=== PATIENT | female | born 1955 | race Caucasian/White ===

== ENCOUNTER 2023-11-06 03:12 | Outpatient (REF) | payer OTHER, SELFPAY ==
[2023-11-06 07:51] LABS: Ammonia <10 umol/L (11-32)
[2023-11-06 08:11] LABS: Basophils Percent Auto 0.5 % (0.2-2.0); Eosinophils Absolute Auto 0.1 10^3/uL (0.0-0.7); Eosinophils Percent Auto 1.1 % (0.9-7.0); Hematocrit 31.3 % (36.0-48.0); Hemoglobin 9.7 g/dL (12.0-16.0); Immature Granulocytes Abs Auto 0.02 10^3/uL (0.00-0.03); Immature Granulocytes Pct Auto 0.4 % (0.0-0.5); Lymphocytes Absolute Auto 1.5 10^3/uL (1.2-3.8); Lymphocytes Percent Auto 27.2 % (20.5-60.0); Mean Corpuscular Hemoglobin 28.8 pg (26.7-34.0); Mean Corpuscular Volume 92.9 fL (81.0-99.0); Mean Platelet Volume 9.5 fL (9.5-13.5); Monocytes Absolute Auto 0.5 10^3/uL (0.3-0.8); Monocytes Percent Auto 8.5 % (1.7-12.0); Neutrophils Absolute Auto 3.5 10^3/uL (1.4-6.5); Neutrophils Percent Auto 62.3 % (43.0-75.0); Platelet Count 164 10^3/uL (150-450); Red Blood Count 3.37 10^6/uL (4.20-5.40); Red Cell Distribution Width 15.9 % (11.0-15.0); White Blood Count 5.6 10^3/uL (4.0-11.0)
[2023-11-06 08:52] LABS: Chloride 101 mmol/L (98-107); Glucose 64 mg/dL (74-106); Sodium 138 mmol/L (136-145)
[2023-11-06 08:53] LABS: Alanine Aminotransferase 22 U/L (14-59); Albumin Globulin Ratio 0.5; Albumin Level 2.5 g/dL (3.4-5.0); Alkaline Phosphatase 230 U/L (46-116); Aspartate Amino Transferase 29 U/L (15-37); BUN Creatinine Ratio 20.3; Bilirubin Total 0.5 mg/dL (0.2-1.0); Calcium 9.2 mg/dL (8.5-10.1); Estimated GFR (African America 50 (>=60); Estimated GFR (Non-African Ame 41 (>=60); Total Protein 7.5 g/dL (6.4-8.2)
== END 2023-11-06 03:13 | disposition home or self-care (01) ==
LOC: LAB 03:12
PROVIDERS: Visit Provider Nurse Practitioner Family
DX: R41.82 Altered mental status, unspecified (principal); K74.60 Unspecified cirrhosis of liver; R82.71 Bacteriuria
CPT/HCPCS: 36415; 80053; 82140; 85025

== ENCOUNTER 2024-01-07 16:00 | Outpatient (REF) | payer OTHER, SELFPAY ==
[2024-01-08 07:40] LABS: Bilirubin Urine NEGATIVE (NEGATIVE); Blood Urine NEGATIVE (NEGATIVE); Clarity Urine CLEAR (CLEAR); Color Urine LT. YELLOW (YELLOW); Glucose Urine UA NEGATIVE (NEGATIVE); Ketones Urine NEGATIVE (NEGATIVE); Leukocyte Esterase Urine MODERATE (NEGATIVE); Nitrite Urine POSITIVE (NEGATIVE); Protein Urine NEGATIVE (NEG/TRACE); Specific Gravity Urine 1.015 (1.005-1.025)
[2024-01-08 07:50] LABS: Urine Microscopic Indicated YES
[2024-01-08 09:05] LABS: Bacteria Urine LARGE #/HPF (NONE SEEN); Mucus Urine NONE SEEN (NONE SEEN); RBC Urine NONE SEEN #/HPF (0-2); Squamous Epithelial Cell Urine FEW #/LPF (NONE/RARE); WBC Urine 75-100 #/HPF (NONE SEEN)
[2024-01-08 09:06] LABS: Crystals Seen? Seen #/HPF (None Seen); Triple Phosphate Crystal Urine FEW
[2024-01-08 09:07] LABS: Urine Culture Indicated ALREADY ORDERED
== END 2024-01-07 16:01 | disposition home or self-care (01) ==
LOC: LAB 16:00
PROVIDERS: Visit Provider Family Medicine
DX: R41.0 Disorientation, unspecified (principal); N39.0 Urinary tract infection, site not specified; N18.31 Chronic kidney disease, stage 3a
CPT/HCPCS: 81001; 87086; 87150; 87186

== ENCOUNTER 2024-01-15 01:55 | Outpatient (REF) | payer OTHER, SELFPAY ==
--- OUTSIDE RECORDS SUMMARY | 2024-01-15 02:04 | XMS_ITS | CCD ---
Author Organization [facility] Care Team Providers Care Packing Line Operator Name Role Phone Hallie Huynh Primary Care Provider Mukesh Castanon Primary Care Provider Mukesh Castanon Primary Care Provider Hallie Huynh Primary Care Provider Fortino Cordova Unavailable Mukesh Velázquez APRN, CNP Primary Care Provider Justyna De Leon APRN, CNP Primary Care Provid er Justyna De Leon APRN, CNP Primary Care Provid er Hallie Worthington APRN, CNP Primary Care Provider Justyna De Leon APRN, CNP Primary Care Provid er HALLIE HUYNH Primary Care Unavailable MIGHTHALLIE Consulting Unavailable Rodrigo SUÁREZ, Tony Licea Attending Unavailab le MIGHTHALLIE Consulting Unavailable HALLIE HUYNH Primary Care Unavailable Antonino Staples Attending Unavailable Rodrigo SUÁREZ, Tony Licea Consulting Unavailab carmela Wallace MD, Tony Licea Attending Unavailab le HALLIE HUYNH Primary Care Unavailable MIGHTHALLIE Consulting Unavailable Rordigo SUÁREZ, Tony Licea Attending Unavailab le MIGHT, NEWSPAPER COPY EDITOR HALLIE FAM Primary Care Unavail able MIGHT, NEWSPAPER COPY EDITOR HALLIE FAM Consulting Unavail able MIGHTHALLIE Primary Care Unavailable MIGHTHALLIE Consulting Unavailable Rodrigo SUÁREZ, Tony Licea Attending Unavailab le Jannie COMMERCIAL HVAC SERVICE TECHNICIAN - NEWSPAPER COPY EDITOR, Justyna Bashir Primary Care Provid er Jannie COMMERCIAL HVAC SERVICE TECHNICIAN - NEWSPAPER COPY EDITOR, Justyna L Primary Care Provid er Jannei COMMERCIAL HVAC SERVICE TECHNICIAN - NEWSPAPER COPY EDITOR, Justyna L Primary Care Provid er Jannie COMMERCIAL HVAC SERVICE TECHNICIAN - NEWSPAPER COPY EDITOR, Justyna L Primary Care Provid er ANTONIA, MANPREET S Primary Care Unavailable TULIO CHAMPION Attending Unavailable SABRINA, TULIO Referring Unavailable ANTONIA, MANPREET S Primary Care Unavailable TULIO CHAMPION Attending Unavailable SABRINA, TULIO Referring Unavailable ANTONIA, MANPREET S Primary Care Unavailable ANTONIA, [facility] Primary Care Unavailable GLENIS BASURTO Attending Unavailable VALENTE SR Admitting Unavailable RODRIGO, ADRIANA Referring Unavailable ANTONIA, MANPREET S Primary Care Unavailable ANTONIA, [facility] Primary Care Unavailable OTONIEL LEE Attending Unavailable OTONIEL LEE Attending Unavailable OTONIEL LEE Referring Unavailable ANTONIA, [facility] Primary Care Unavailable SHOSHANA HANCOCK Referring Unavailable ATNONIA, [facility] Primary Care Unavailable TULIO CHAMPION Attending Unavailable SABRINA, TULIO Referring Unavailable ANTONIA, [facility] Primary Care Unavailable ANTONIA, [facility] Primary Care Unavailable SHU MANSFIELD Attending Unavailable SHU MANSFIELD Attending Unavailable SHU MANSFIELD Referring Unavailable ANTONIA, [facility] Primary Care Unavailable SHU MANSFIELD Attending Unavailable SHU MANSFIELD Referring Unavailable ANTONIA, [facility] Primary Care Unavailable RODRIGO, ADRIANA Referring Unavailable ANTONIA, [facility] Primary Care Unavailable SHU MANSFIELD Referring Unavailable ANTONIA, [facility] Primary Care Unavailable SELAM RIOS Referring Unavailable ANTONIA, [facility] Primary Care Unavailable TAMIKO BARKLEY Referring Unavailable ANTONIA, [facility] Primary Care Unavailable SHU MANSFIELD Referring Unavailable ANTONIA, [facility] Primary Care Unavailable JANNIEJUSTYNA Krysten Primary Care Unavailable AHAMMAD, SOSA Referring Unavailable AHAMMAD, SOSA Referring Unavailable JANNIE, JUSTYNA Bashir Primary Care Unavailable JANNIE, JUSTYNA Bashir Primary Care Unavailable SARAH MARROQUIN Admitting Unavailable AHAMMAD, SOSA Consulting Unavailable KING BLACKWELL Attending Unavailable PASQUALE BYNUM Consulting Unavailable RAMSEY ALMANZA Consulting Unavailable HEARN, CLIFF Consulting Unavailable JANNIE, JUSTYNA L Primary Care Unavailable AHAMMAD, SOSA Referring Unavailable JOVANNI, PAT N Admitting Unavailable JOVANNI, PAT N Attending Unavailable JANNIE, JUSTYNA L Primary Care Unavailable JANNIE, JUSTYNA L Referring Unavailable JANNIE, JUSTYNA L Primary Care Unavailable TOM, MIROSLAVA MARIEE Referring Unavailable JANNIE, JUSTYNA L Primary Care Unavailable HEMMELGARN, PIERCE E Referring Unavailable JANNIE, JUSTYNA L Primary Care Unavailable IACOB, LIBBY Admitting Unavailable IACOB, LIBBY Attending Unavailable JANNIE, JUSTYNA L Primary Care Unavailable JANNIE, JUSTYNA L Primary Care Unavailable TOM, MIROSLAVA MARIEE Referring Unavailable JANNIE, JUSTYNA L Primary Care Unavailable JANNIE, JUSTYNA L Referring Unavailable NIKOLE, KEYSHAWN R Referring Unavailable JANNIE, JUSTYNA L Referring Unavailable JANNIE, JUSTYNA L Primary Care Unavailable JANNIE, JUSTYNA L Referring Unavailable JANNIE, JUSTYNA L Primary Care Unavailable JANNIE, JUSTYNA L Referring Unavailable JANNIE, JUSTYNA L Primary Care Unavailable JANNIE, JUSTYNA L Primary Care Unavailable JANNIE, JUSTYNA L Referring Unavailable JANNIE, JUSTYNA L Primary Care Unavailable HEMMELGARN, PIERCE E Referring Unavailable JANNIE, JUSTYNA L Referring Unavailable JANNIE, JUSTYNA L Primary Care Unavailable MUDDADA, MADAI K Referring Unavailable JANNIE, JUSTYNA L Primary Care Unavailable JANNIE, JUSTYNA L Primary Care Unavailable JANNIE, JUSTYNA L Referring Unavailable DAWSON, JEWEL Attending Unavailable JANNIE, JUSTYNA L Primary Care Unavailable JANNIE, JUSTYNA L Referring Unavailable JANNIE, JUSTYNA L Primary Care Unavailable IACOB, LIBBY Admitting Unavailable IACOB, LIBBY Attending Unavailable JANNIE, JUSTYNA L Primary Care Unavailable Allergies Allergy Classification Reported Allergen(s) Allergy Type Date of Onset Reaction(s) Facility Iodine (and Iodine containting drugs) (4 sources) Iodine Drug Allergy 05-26-20 19 Shortness Of Breath, Itching, Swelling [facility] [employer] Work Phone: Latex (4 sources) Latex Substance Allergy 05-26-20 19 Shortness Of Breath, Rash [facility] [place] Phone: Lidocaine (4 sources) Lidocaine Drug Allergy 11-23-19 20 Swelling [facility] [place] Nitrofurans (antibiotic) (4 sources) Nitrofurans (Antibiotic) Drug Allergy 05-26-20 19 Hives [facility] [employer] Work Phone: NSAIDs (4 sources) Indomethacin Drug Allergy 05-26-20 19 Shortness Of Breath, Nausea Only, Palpitations [facility] [place] Phone: Opioid Agonists (4 sources) fentaNYL Drug Allergy 05-26-20 19 Anaphylaxis [facility] [place] Phone: Penicillins (antibiotic) (4 sources) Penicillins Drug Allergy 05-26-20 19 Shortness Of Breath, Itching, Swelling [facility] [place] [employer] Phone: Phenazopyridine (4 sources) Phenazopyridine Drug Allergy 05-26-20 Hives [facility] [place] [employer] Phone: Quinolones (antibiotic) (4 sources) gatifloxacin Drug Allergy 05-26-20 19 Anaphylaxis [facility] [place] Phone: Sulfonamides (antibiotic) (4 sources) Sulfonamides (Antibiotic) Drug Allergy 05-26-20 19 Anaphylaxis [facility] [place] Phone: (20 sources) fentaNYL; Translations: [fentaNYL] Drug Allergy 05-26-20 19 Anaphylaxis [place] (20 sources) gatifloxacin; Translations: [gatifloxacin] Drug Allergy 05-26-20 19 An[place]axis [place] (20 sources) Indomethacin; Translations: [indomethacin] Drug Allergy 05-26-20 19 Shortness Of Breath, Nausea Only, Palpitations [place] (20 sources) Iodine; Translations: [iodine] Drug Allergy 05-26-20 19 Shortness Of Breath, Itching, Swelling [place] (20 sources) Latex; Translations: [Latex] Propensity to adverse reactions to drug 05-26-20 19 Shortness Of Breath, Rash [place] (20 sources) Nitrofurans (Antibiotic); Translations: [nitrofuran derivatives] Propensity to adverse reactions to drug 05-26-20 19 [place] (20 sources) Penicillins; Translations: [penicillins] Propensity to adverse reactions to drug 05-26-20 19 Shortness Of Breath, Itching, Swelling [place] (20 sources) Phenazopyridine Drug Allergy 05-26-20 19 [facility] [place] (20 sources) Sulfonamides (Antibiotic) Propensity to adverse reactions to drug 05-26-20 19 [place] (20 sources) Clindamycin/Lincom ycin Propensity to adverse reactions to drug 05-26-20 19 [place] (20 sources) Shellfish-Derived Products Propensity to adverse reactions to drug 05-26-20 19 Shortness Of Breath, Itching, Swelling [place] (20 sources) Erythromycin Base Propensity to adverse reactions to drug 05-26-20 19 [place] (20 sources) Tetracyclines & Related Propensity to adverse reactions to drug 05-26-20 19 Shortness Of Breath, Itching, Swelling [place] (20 sources) Lidocaine; Translations: [lidocaine] Drug Allergy 11-23-19 20 [place] (20 sources) Phenazopyridine; Translations: [PHENAZOPYRIDINE] Drug Allergy 07-04-20 21 [facility] [place] (3 sources) Clindamycin; Translations: [clindamycin] Drug Allergy 06-03-20 23 [facility] (3 sources) Erythromycin; Translations: [erythromycin] Drug Allergy 06-03-20 23 [facility] (1 source) Phenazopyridine; Translations: [Phenazopyridine Hydrochloride] Drug Allergy [facility] (1 source) Shellfish; Translations: [shellfish] Propensity to adverse reactions to drug (disorder) [facility] (1 source) Sulfonamides (Antibiotic); Translations: [sulfa drugs] Propensity to adverse reactions to drug (disorder) [facility] (3 sources) Tetracycline; Translations: [tetracycline] Drug Allergy 06-03-20 23 [facility] (20 sources) Penicillins Propensity to adverse reactions to drug 05-26-20 19 Shortness Of Breath, Itching, Swelling [facility] Work Phone: (20 sources) Seafood Propensity to adverse reactions to drug 05-26-20 19 Shortness Of Breath, Itching, Swelling [facility] Work Phone: (20 sources) Sulfonamides (Antibiotic) Propensity to adverse reactions to drug 05-26-20 Anaphylaxis [facility] [employer] Phone: (20 sources) Tetracycline (class of antibiotic) Propensity to adverse reactions to drug 05-26-20 Shortness Of Breath, Itching, Swelling [facility] [employer] Phone: (2 sources) Nitrofurantoin; Translations: [NITROFURANTOIN] Drug Allergy 06-03-20 [facility] (2 sources) Shellfish; Translations: [SHELLFISH DERIVED] Propensity to adverse reactions to food (disorder) 06-03-20 [facility] (2 sources) Sulfonamides (Antibiotic); Translations: [SULFA (SULFONAMIDE ANTIBIOTICS)] Propensity to adverse reactions to drug (disorder) 06-03-20 [facility] Medications Current Medications Medication Drug Class(es) Dates Sig (Normalized) Sig (Original) acetaminophen 325 mg oral tablet (16 sources) Start: 02-04-2023 End: 03-06-2023 take 2 tablets by mouth every six hours as needed for pain acetaminophen (TYLENOL) 325 MG tablet Take 2 tablets by mouth every 6 hours as needed for Pain 180 tablet 3 02/04/2023 Active Start: 01-11-2023 acetaminophen (TYLENOL) tablet 650 mg Start: 12-17-2022 End: 01-16-2023 take 2 tablets by mouth every six hours as needed for pain acetaminophen (TYLENOL) 325 MG tablet Indications: Chronic midline low back pain without sciatica Take 2 tablets by mouth every 6 hours as needed for Pain 60 tablet 0 12/17/2022 01/12/2023 Discontinued (Stop Taking at Discharge) Start: 11-18-2022 acetaminophen (TYLENOL) tablet 650 mg Start: 10-04-2022 End: 10-08-2022 acetaminophen (TYLENOL) tabl et 1,000 mg Start: 09-07-2022 acetaminophen (TYLENOL) tablet 650 mg Start: 12-27-2021 End: 12-27-2021 acetaminophen (TYLENOL) tabl et 650 mg Start: 02-08-2021 acetaminophen (TYLENOL) tablet 650 mg Start: 02-07-2021 End: 02-07-2021 acetaminophen (TYLENOL) tabl et 650 mg Start: 02-07-2021 End: 02-07-2021 acetaminophen (TYLENOL) 325 MG tablet Start: 11-24-2019 650 mg, Oral, EVERY 4 HOURS PRN, Pain Mild (1-3), Pain Mild (1-3) or Fever greater than 100.5 F (38 C), Starting [facility] 11/24/19 at 0256 Maximum dose of acetaminophen is 4000 mg from all sources in 24 hours. take 2 tablets by [facility] every four hours as needed for pain acetaminophen (TYLENOL) 325 MG tablet Take 650 mg by mouth every 4 hours as needed for Pain 0 Active acetaminophen 325 mg / HYDROcodone bitartrate 5 mg oral tablet (7 sources) Opioid Agonist Start: 01-16-2023 End: 01-19-2023 HYDROcodone-acetaminophen (NORCO) 5-325 MG per tablet Indications: E. coli UTI Take 1 tablet by mouth every 8 hours as needed for Pain for up to 3 days. Max Daily Amount: 3 tablets 10 tablet 0 01/16/2023 01/19/2023 Active Start: 01-15-2023 HYDROcodone-ac etaminophen (NORCO) 5-325 MG per tablet 1 tablet Start: 10-03-2022 End: 10-03-2022 HYDROcodone-acetaminophen (N ORCO) 5-325 MG per tablet 1 tablet Start: 04-30-2020 End: 04-30-2020 HYDROcodone-acetaminophen (N ORCO) 5-325 MG per tablet 1 tablet Start: 11-23-2019 End: 11-23-2019 HYDROcodone-acetaminophen (N ORCO) 5-325 MG per tablet 1 tablet take 1 tablet by [facility] every six hours as needed for pain HYDROcodone-acetaminophen (NORCO) 5-325 MG per tablet Take 1 tablet by mouth every 6 hours as needed for Pain. 0 Active ascorbic acid 60 mg / beta carotene 5000 unt / copper sulfate 40 mg / dl-alpha tocopheryl acetate 30 unt / sodium selenite 0.04 mg / zinc oxide 40 mg oral tablet (6 sources) Vitamin C Start: 06-18-2020 take 1 tablet by mouth once daily Multiple Vitamins-Minerals (CENTRUM SILVER 50+WOMEN) TABS Take 1 tablet by mouth daily 90 tablet 0 06/18/2020 Active take 1 tablet by mouth once leno y Multiple Vitamins-Minerals (CENTRUM SILVER 50+WOMEN) TABS Take 1 tablet by mouth daily 0 Active atenolol 50 mg oral tablet (20 sources) beta-Adrenergic [place] Start: 10-23-2022 atenol ol (TENORMIN) 50 MG tablet Indications: Essential hypertension One tablet nightly 90 tablet 3 10/23/2022 Active Start: 10-08-2022 atenolol (TENO RMIN) tablet 25 mg Start: 10-02-2022 End: 10-08-2022 take 50 mg by mouth once daily 50 mg, Oral, NIGHTLY, F irst dose on 10/04/22 at 2100, Until Discontinued Start: 05-27-2022 take 50 mg by mouth once daily 50 mg, Oral, DAILY, First dose on 09/07/22 at 0900, Until Discontinued Start: 03-10-2022 atenolol (TENO RMIN) 25 MG tablet Indications: Essential hypertension TAKE 2 TABLETS DAILY ([id number] AT NIGHT) 90 tablet 1 03/10/2022 Active Start: 09-17-2021 [facility] 2 [facility] once daily atenolol (TENORMIN) 25 MG tablet Indications: Essential hypertension Take 2 tablets by mouth daily Patient takes 50mg at night. 90 tablet 1 09/17/2021 Active Start: 02-13-2021 take 1 tablet by chilo th once daily atenolol (TENORMIN) 25 MG tablet Indications: Essential hypertension Take 1 tablet by mouth daily 90 tablet 1 02/13/2021 Active Start: 01-03-2021 take 25 mg by mouth once daily 25 mg, Oral, DAILY, First dose on Thu02/08/21 at 1000 Start: 06-18-2020 take 1 tablet by chilo th once daily atenolol (TENORMIN) 25 MG tablet Take 1 tablet by mouth daily 90 tablet 0 06/18/2020 Active Start: 09-19-2019 take 1 tablet by chilo th once daily atenolol (TENORMIN) 25 MG tablet Take 1 tablet by mouth daily 90 tablet 3 09/19/2019 Active atenolol (TENORM IN) 50 MG tablet Take 25 mg by mouth daily 0 Active bisacodyl 10 mg rectal suppository (1 source) Stimulant Laxative bisacodyl (DULCOLAX) [address] 1 suppository rectally daily If no BM x 4 days, R/S in every morning, if no results in 2 hours, give Fleets enema 0 Active busPIRone hydrochloride 15 mg oral tablet (3 sources) Start: 1 take 0.5 tablet by mouth twice daily busPIRone (BUSPAR) 15 MG tablet take 1/2 tablet by mouth twice a day if needed 0 10/05/2020 Active calcium carbonate 298 mg / magnesium chloride 596 mg delayed release oral tablet (1 source) Start: 3 End: 3 take 2 tablets by mouth once daily at mealtime magnesium cl-calcium carbonate (SLOW-MAG) 71.5-119 MG TBEC tablet Indications: Low blood magnesium Take 2 tablets by mouth daily Give doses separate with meals if unable to tolerate at once 180 tablet 0 04/14/2023 07/13/2023 Active cefTRIAXone (ROCEPHIN) 1,000 mg in dextrose 5 % 50 mL IVPB mini-bag (4 sources) Start: 3 End: 3 cefTRIAXone (ROCEPHIN) 1,000 mg in dextrose 5 % 50 mL IVPB mini-bag Start: 09-08-2022 End: 09-08-2022 cefTRIAXone (ROCEPHIN) 1,000 mg in dextrose 5 % 50 mL IVPB mini-bag Start: 09-07-2022 End: 09-07-2022 1,000 mg, IntraVENous, ONCE, 1 dose, On 09/07/22 at 2200 Antimicrobial Indications: Urinary Tract Infection UTI duration of therapy: 3 days Start: 09-06-2022 End: 09-06-2022 cefTRIAXone (ROCEPHIN) 1,000 mg in dextrose 5 % 50 mL IVPB mini-bag cephalexin 500 mg oral capsule (14 sources) Cephalosporin Antibacterial Start: 05-06-2023 End: 05-16-2023 take 1 capsule by mouth twice daily cephALEXin (KEFLEX) 500 MG capsule Indications: Acute cystitis without hematuria Take 1 capsule by mouth 2 times daily for 10 days 20 capsule 0 05/06/2023 05/16/2023 Active Start: 03-30-2023 take 1 capsule by [facility] twice daily cephALEXin (KEFLEX) 500 MG capsule Indications: Acute UTI Take 1 capsule by mouth 2 times daily 14 capsule 0 03/30/2023 Active Start: 01-13-2023 End: 01-20-2023 take 1 capsule by mouth four times daily cephALEXin (KEFLEX) 500 MG capsule Take 1 capsule by mouth 4 times daily for 24 doses 24 capsule 0 01/14/2023 01/20/2023 Active Start: 12-19-2022 End: 12-29-2022 take 1 capsule by mouth three times daily cephALEXin (KEFLEX) 500 MG capsule Indications: Acute cystitis without hematuria Take 1 capsule by mouth 3 times daily for 10 days 30 capsule 0 12/19/2022 12/29/2022 Active Start: 11-23-2022 End: 11-30-2022 take 1 capsule by mouth at bedtime cephALEXin (KEFLEX) 500 MG capsule Take 1 capsule by mouth in the morning, at noon, and at bedtime for 14 doses 14 capsule 0 11/25/2022 11/30/2022 Active Start: 05-15-2021 End: 05-25-2021 take 1 capsule by mouth twice daily cephALEXin (KEFLEX) 500 MG capsule Indications: Acute cystitis with hematuria , Cellulitis of right lower extremity Take 1 capsule by mouth 2 times daily for 10 days 20 capsule 0 05/15/2021 05/25/2021 Active Start: 04-14-2021 End: 04-21-2021 take 1 capsule by mouth twice daily cephALEXin (KEFLEX) 500 MG capsule Take 1 capsule by mouth 2 times daily for 7 days 14 capsule 0 04/14/2021 04/21/2021 Active Start: 02-11-2021 End: 02-18-2021 take 1 capsule by mouth three times daily cephALEXin (KEFLEX) 500 MG capsule Take 1 capsule by mouth 3 times daily for 7 days 21 capsule 0 02/11/2021 02/18/2021 Active cycloSPORINE (RESTASIS) 0.05 % ophthalmic emulsion (10 sources) take 1 drop(s) into the eye(s) in the morning cycloSPORINE (RESTASIS) 0.05 % ophthalmic emulsion Place 1 drop into both eyes in the morning and 1 drop in the evening. 0 Active docusate sodium 100 mg oral capsule (2 sources) Start: 11-24-19 take 1 capsule by mouth twice daily docusate sodium (COLACE) 100 MG capsule Take 1 capsule by mouth 2 times daily 20 capsule 0 11/24/2019 Active estradiol 0.1 mg/ml vaginal cream (3 sources) Estrogen Start: 02-11-20 estradiol (ESTRACE VAGINAL) 0.1 MG/GM vaginal cream Place a pea-sized amount vaginally nightly for one month, then use 3 nights per week thereafter. Do NOT use plastic applicator. 42.5 g 3 02/10/2023 Active fluconazole 100 mg oral tablet (4 sources) Azole Antifungal take 1 tablet by mouth once daily fluconazole (DIFLUCAN) 100 MG tablet Take 1 tablet by mouth daily 0 Active 30 actuat fluticasone furoate 0.2 mg/actuat / vilanterol 0.025 mg/actuat dry powder inhaler (20 sources) Corticosteroid, beta2-Adrenergic Agonist Start: 01-15-20 End: 03-15-20 take 1 puff(s) by inhalation once daily Fluticasone furoate-vilanterol (BREO ELLIPTA) 200-25 MCG/INH AEPB inhaler Inhale 1 puff into the lungs daily 60 each 2 01/14/2022 03/15/2022 Active Start: 09-12-2021 take 1 puff(s) by in halation once daily Fluticasone furoate-vilanterol (BREO ELLIPTA) 200-25 MCG/INH AEPB inhaler Inhale 1 puff into the lungs daily 3 each 3 09/12/2021 Active Start: 05-13-2021 End: 08-11-2021 take 1 puff(s) by inhalation once daily Fluticasone furoate-vilanterol (BREO ELLIPTA) 200-25 MCG/INH AEPB inhaler Indications: Pulmonary emphysema, unspecified emphysema type (HCC) Inhale 1 puff into the lungs daily 1 each 3 05/13/2021 08/11/2021 Active gabapentin 100 mg oral capsule (20 sources) Anti-epileptic Agent Start: 02-04-2023 gabapenti n (NEURONTIN) 100 MG capsule 1 capsule 2 times daily. 0 02/04/2023 Active Start: 11-13-2021 End: 01-14-2023 take 100 mg by mouth twice daily 100 mg, Oral, 2 TIMES DAILY, First dose on 01/11/23 at 0045, Until Discontinued Start: 04-14-2021 End: 07-15-2021 gabapentin (NEURONTIN) 100 M G capsule TAKE 1 CAPSULE TWICE DAILY 180 capsule 0 04/14/2021 Active Start: 11-23-2020 End: 05-25-2021 take 100 mg by mouth three times daily 100 mg, Oral, 3 TIMES DAILY, First dose on Thu02/08/21 at 1000 Start: 06-18-2020 End: 09-16-2020 take 1 capsule by mouth twice daily gabapentin (NEURONTIN) 100 MG capsule Take 1 capsule by mouth 2 times daily for 90 days. 180 capsule 0 06/18/2020 09/16/2020 Active Start: 04-30-2020 gabapentin (NE URONTIN) capsule 100 mg Start: 03-02-2020 End: 04-28-2020 gabapentin (NEURONTIN) 100 M G capsule 1 CAPSULES IN THE MORNING 1IN THE AFTERNOON AND 3-4 CAPSULES AT BEDTIME 630 capsule 1 03/02/2020 04/28/2020 Discontinued (LIST CLEANUP) Start: 11-24-2019 take 100 mg by mouth three times daily 100 mg, Oral, 3 TIMES DAILY, First dose on Thu11/24/19 at 0900 Start: 07-19-2019 End: 01-18-2020 gabapentin (NEURONTIN) 100 M G capsule 2 CAPSULES IN THE MORNING 2 IN THE AFTERNOON AND 3 TABLETS AT BEDTIME 630 capsule 1 07/19/2019 Active take 4 capsules by m outh once at bedtime gabapentin (NEURONTIN) 100 MG capsule Take 100 mg by mouth. Pt takes as 100 mg in AM, then 100 mg in afternoon , and usually 3 of the 100 mg capsules at Bedtime. Pt may take up to 4 capsules at Bedtime per Dr statement states pt.. 0 Active take 3 tablets by mo uth at bedtime gabapentin (NEURONTIN) 100 MG capsule Take 100 mg by mouth. 2 CAPSULES IN THE MORNING 2 IN THE AFTERNOON AND 3 TABLETS AT BEDTIME 0 Active glucagon (rdna) 1 mg injection (5 sources) Antihypoglycemic Agent Start: 01-11-2023 glucago n (rDNA) injection 1 mg Start: 11-18-2022 glucagon injec tion 1 mg Start: 09-07-2022 glucagon (rDNA ) injection 1 mg Start: 02-08-2021 take 1 mL intravenously every hour 1 mg, Intramuscular, PRN, Low blood sugar, Blood glucose less than 70 mg/dL and patient NOT ALERT or NPO and does not have IV access., Starting on Thu02/08/21 at 0929 After administration, attempt intravenous access and start D5W at 100 mL/hr. Repeat blood glucose in 15 minutes x2 and notify provider. Start: 11-24-2019 glucagon (rDNA ) injection 1 mg 1000 ml glucose 100 mg/ml in jection (15 sources) Start: 01-11-2023 dextrose 10 % infusion Start: 01-11-2023 dextrose bolus 10% 125 mL Start: 01-11-2023 glucose chewab le tablet 16 g Start: 11-18-2022 dextrose 10 % infusion Start: 11-18-2022 dextrose bolus 10% 125 mL Start: 11-18-2022 glucose chewab le tablet 16 g Start: 09-07-2022 dextrose 10 % infusion Start: 09-07-2022 dextrose bolus 10% 125 mL Start: 09-07-2022 glucose chewab le tablet 16 g Start: 02-08-2021 15 g, Oral, LA N, Low blood sugar, Starting on Thu02/08/21 at 0929 If blood glucose less than 50 mg/dL and patient ALERT and TOLERATING PO, give 2 tubes glucose gel. If blood glucose less than 70 mg/dL and patient ALERT and TOLERATING PO, give 1 tube glucose gel. Repeat blood glucose in 15 minutes. If blood glucose is less than 70 mg/dL, repeat treatment and recheck blood glucose in 15 minutes x2 and notify provider. Start: 02-08-2021 12.5 g, Intrav enous, PRN, Low blood sugar, Blood glucose less than 70 mg/dL and patient NOT ALERT or NPO., Starting on Thu02/08/21 at 0929 If patient does not respond within 5 minutes, repeat dose x1. Start D5W at 100 mL/hour until ordering provider can be reached. Repeat blood glucose in 15 minutes. If blood glucose is less than 70 mg/dL, repeat treatment and recheck blood glucose in 15 minutes x2. If using Glucostabilizer, dose as instructed per system. Start: 02-08-2021 100 mL/hr, Int ravenous, at 100 mL/hr, PRN, Low blood sugar, Starting on Thu02/08/21 at 0929 Start infusion following administration of dextrose 50% or glucagon. Start: 11-24-2019 glucose (GLUTO SE) 40 % oral gel 15 g Start: 11-24-2019 dextrose 50 % IV solution Start: 11-24-2019 dextrose 5 % s olution 12 hr guaiFENesin 600 mg extended release oral tablet (1 source) Start: 06-17-2021 End: 07-02-2021 take 1 tablet by mouth twice daily guaiFENesin (MUCINEX) 600 MG extended release tablet Take 1 tablet by mouth 2 times daily for 15 days 30 tablet 0 06/17/2021 07/02/2021 Active 3 ml insulin aspart, human 100 unt/ml pen injector (2 sources) Insulin Analog Start: 04-28-2023 End: 05-28-2023 insulin aspart (NOVOLOG FLEXPEN) 100 UNIT/ML injection pen Indications: Type 2 diabetes mellitus with stage 3 chronic kidney disease, with long-term current use of insulin, unspecified whether stage 3a or 3b CKD (HCC) Inject 12 Units into the skin 3 times daily (before meals) 10.8 mL 0 04/28/2023 05/28/2023 Active Start: 03-25-2023 End: 04-24-2023 insulin aspart (NOVOLOG FLEX PEN) 100 UNIT/ML injection pen Indications: Type 2 diabetes mellitus with stage 3 chronic kidney disease, with long-term current use of insulin, unspecified whether stage 3a or 3b CKD (HCC) Inject 10 Units into the skin 3 times daily (before meals) 9 mL 0 03/25/2023 04/24/2023 Active 3 ml insulin detemir 100 unt/ml pen injector (20 sources) Insulin Analog Start: 10-23-2022 insulin detemi r (LEVEMIR FLEXTOUCH) 100 UNIT/ML injection pen INJECT 20 UNITS SUBCUTANEOUSLY TWO TIMES A DAY 45 mL 3 10/23/2022 Active Start: 10-02-2022 insulin detemi r (LEVEMIR FLEXTOUCH) 100 UNIT/ML injection pen INJECT 20 UNITS SUBCUTANEOUSLY TWO TIMES A DAY 45 mL 3 10/02/2022 Active Start: 05-09-2022 LEVEMIR FLEXTO UCH 100 UNIT/ML injection pen INJECT 20 UNITS SUBCUTANEOUSLY TWO TIMES A DAY 45 mL 3 05/09/2022 Active Start: 07-04-2021 insulin detemi r (LEVEMIR FLEXTOUCH) 100 UNIT/ML injection pen Indications: Type 2 diabetes mellitus with other specified complication, with long-term current use of insulin ([facility]) Inject 22 Units into the skin 2 times daily Inject 22 units for 3 days. Check fasting blood sugars and if 150 or less stay at 22 units. Increase by 2 units every 3 days until 150 or less with a max dose of 40 units 5 pen 3 07/04/2021 Active Start: 03-04-2021 insulin detemi r (LEVEMIR FLEXTOUCH) 100 UNIT/ML injection pen Indications: Type 2 diabetes mellitus with other specified complication, with long-term current use of insulin ([facility]) Inject 20 Units into the skin 2 times daily 5 pen 3 03/04/2021 Active Start: 12-12-2020 insulin detemi r (LEVEMIR FLEXTOUCH) 100 UNIT/ML injection pen Indications: Type 2 diabetes mellitus with other specified complication, with long-term current use of insulin ([facility]) Inject 20 Units into the skin 2 times daily 5 pen 3 12/12/2020 Active Start: 04-27-2020 insulin detemi r (LEVEMIR FLEXTOUCH) 100 UNIT/ML injection pen Inject 15 Units into the skin 2 times daily 5 pen 3 04/27/2020 Active Start: 09-06-2019 insulin detemi r (LEVEMIR FLEXTOUCH) 100 UNIT/ML injection pen Inject 15 Units into the skin 2 times daily 5 pen 3 09/06/2019 Active insulin detemir (LEVEMIR FLEXTOUCH) 100 UNIT/ML injection pen Inject 30 Units into the skin 2 times daily 0 Active insulin detemir (LEVEMIR FLEXTOUCH) 100 UNIT/ML injection pen Inject 15 Units into the skin 2 times daily 0 Active insulin glargine 100 unt/ml injectable solution (9 sources) Insulin Analog Start: 01-11-2023 insulin glargi ne (LANTUS) injection vial 20 Units Start: 11-18-2022 insulin glargi ne (LANTUS) injection vial 20 Units Start: 10-08-2022 insulin glargi ne (LANTUS) injection vial 15 Units Start: 10-07-2022 End: 10-08-2022 insulin glargine (LANTUS) injection vial 10 Units Start: 09-10-2022 insulin glargi ne (LANTUS) injection vial 10 Units Start: 09-07-2022 End: 09-10-2022 insulin glargine (LANTUS) injection vial 30 Units Start: 02-08-2021 inject 20 [IU] by [facility] bcutaneous injection twice daily 20 Units, Subcutaneous, 2 TIMES DAILY, First dose on Thu02/08/21 at 1000 Start: 04-30-2020 End: 04-30-2020 insulin glargine (LANTUS) injection vial 15 Units insulin lispro 100 unt/ml injectable solution (20 sources) Insulin Analog Start: 01-12-2023 insulin lispro (HUMALOG) injection vial 0-4 Units Start: 01-10-2023 End: 01-10-2023 insulin lispro (HUMALOG) inj ection vial 10 Units Start: 10-05-2022 End: 10-17-2022 insulin lispro (HUMALOG) inj ection vial 0-4 Units Start: 10-04-2022 End: 10-05-2022 0-16 Units, SubCUTAneous, EV AUTUMN 4 HOURS, First dose on 10/04/22 at 0500, Until Discontinued High Dose Corrective Algorithm Glucose: Dose: 70-199 No Insulin 200-249 4 Units 250-299 8 Units 300-349 12 Units Over 349 16 Units and notify physician Start: 08-13-2022 0-8 Units, Sub CUTAneous, 3 TIMES DAILY WITH MEALS, First dose on 09/07/22 at 0800, Until Discontinued Start: 08-13-2022 0-4 Units, Sub CUTAneous, NIGHTLY, First dose on 09/07/22 at 0130, Until Discontinued Start: 02-08-2021 insulin lispro (HUMALOG) injection vial 0-12 Units Start: 11-24-2019 insulin lispro (HUMALOG) injection vial 0-18 Units lisinopril 5 mg oral tablet (20 sources) Angiotensin Converting Enzyme Inhibitor Start: 04-14-2021 lisinopril (PRINIVIL;ZESTRIL) 5 MG tablet Indications: Essential hypertension TAKE 1 TABLET DAILY 90 tablet 3 04/14/2021 Active Start: 01-03-2021 take 1 tablet by chilo once daily lisinopril (PRINIVIL;ZESTRIL) 5 MG tablet Indications: Essential hypertension Take 1 tablet by mouth daily 90 tablet 3 01/03/2021 Active Start: 11-23-2020 take 1 tablet by chilo th once daily lisinopril (PRINIVIL;ZESTRIL) 5 MG tablet Take 1 tablet by mouth daily 90 tablet 3 11/23/2020 Active Start: 01-04-2020 take 1 tablet by chilo th once daily lisinopril (PRINIVIL;ZESTRIL) 5 MG tablet Take 1 tablet by mouth daily 90 tablet 3 01/04/2020 Active Start: 11-24-2019 take 5 mg by mouth o nce daily 5 mg, Oral, DAILY, First dose on Delfina 11/24/19 at 0900 take 5 mg by mouth o nce daily lisinopril (PRINIVIL;ZESTRIL) 10 MG tablet Take 5 mg by mouth daily 0 Active LORazepam 1 mg oral tablet (6 sources) Benzodiazepine Start: 01-11-2023 LORazepam (ATI VAN) tablet 1 mg Start: 08-14-2021 End: 08-15-2021 LORazepam (ATIVAN) injection 1 mg Start: 02-07-2021 End: 02-07-2021 LORazepam (ATIVAN) injection 1 mg Start: 11-24-2019 End: 11-24-2019 LORazepam (ATIVAN) injection 0.5 mg magnesium hydroxide 80 mg/ml oral suspension (1 source) take 30 mL by mouth once daily as needed for constipation magnesium hydroxide (MILK OF MAGNESIA) 400 MG/5ML suspension Take 30 mLs by mouth daily as needed for Constipation (If no BM x 3 days) 0 Active magnesium oxide 400 mg oral capsule (12 sources) Start: 11-29-2022 End: 12-09-2022 take 1 capsule by mouth once daily Magnesium Oxide 400 MG CAPS Take 400 mg by mouth daily for 10 days 10 capsule 0 11/29/2022 12/09/2022 Active Start: 11-25-2022 End: 01-12-2023 take 1 tablet by mouth twice daily magnesium oxide (MAG-OX) 400 (240 Mg) MG tablet Take 1 tablet by mouth 2 times daily 60 tablet 0 11/25/2022 01/12/2023 Discontinued (Stop Taking at Discharge) Start: 11-21-2022 magnesium oxid e (MAG-OX) tablet 400 mg melatonin 3 mg oral tablet (20 sources) Start: 11-24-2022 melatonin tabl et 1.5 mg Start: 11-19-2022 End: 11-19-2022 melatonin tablet 1.5 mg Start: 10-11-2022 End: 10-11-2022 melatonin tablet 5 mg Start: 10-04-2022 melatonin tabl et 5 mg Start: 09-07-2022 End: 01-12-2023 take 1 mg by mouth once daily 1 mg, Oral, Nightly, Fir st dose on 09/07/22 at 0130, Until Discontinued Patient supply take 2 tablets by mo uth once daily Melatonin 10 MG TABS Take 20 mg by mouth nightly 0 Active take 1 tablet by once daily Melatonin 10 MG TABS Take 10 mg by mouth nightly 0 Active meloxicam 7.5 mg oral tablet (1 source) Nonsteroidal Anti-inflammatory Drug take 1 tablet by mouth once daily meloxicam (MOBIC) 7.5 MG tablet Take 7.5 mg by mouth daily 0 Active meropenem (MERREM) 1,000 mg in sterile water 20 mL IV syringe (1 source) Start: 021 meropenem (MERREM) 1,000 mg in sterile water 20 mL IV syringe methocarbamol 750 mg oral tablet (4 sources) Muscle Relaxant Start: 023 methocarbamol (ROBAXIN) tablet 750 mg Start: 01-10-2023 End: 01-10-2023 methocarbamol (ROBAXIN) tabl et 1,000 mg Start: 10-04-2022 End: 10-08-2022 methocarbamol (ROBAXIN) tabl et 750 mg 24 hr mirabegron 50 mg extended release oral tablet (2 sources) beta3-Adrenergic Agonist Start: 04-17-2022 take 1 tablet by mouth once daily mirabegron (MYRBETRIQ) 50 MG TB24 Indications: Frequency of urination , Mixed incontinence , Nocturia Take 50 mg by mouth daily 90 tablet 3 04/17/2022 Active NONFORMULARY (20 sources) NONFORMULARY Blaise e 5 mg by mouth 2 times daily as needed Pt states to be using CBD Oil up to BID. *(Unsure of exact dose). Typically it's 5 gtts under the tongue. 0 Suspended NONFORMULARY Isaac ly 1 Dose topically as needed Pt states to be using CBD cream topically PRN. 0 Suspended NONFORMULARY Blaise e 5 mg by mouth 2 times daily as needed Pt states to be using CBD Oil up to BID. *(Unsure of exact dose). Typically it's 5 gtts under the tongue. 0 Active NONFORMULARY Isaac ly 1 Dose topically as needed Pt states to be using CBD cream topically PRN. 0 Active End: 08-15-2021 NONFORMULARY 500 mg Pt state s to be taking Hyaluronic Acid as 1 capsule in the AM. 0 08/15/2021 Discontinued (Therapy completed) End: 08-15-2021 NONFORMULARY Pt states to ta ke Calcium/Magnesium and Zinc as 1 tablet daily. 0 08/15/2021 Discontinued (Therapy completed) End: 08-15-2021 NONFORMULARY MSM tablet (met hylsulfonylmethane) 1 gram daily in morning 0 08/15/2021 Discontinued (Therapy completed) End: 02-11-2021 NONFORMULARY 1 g Pt states t o take MSM once daily. 0 02/11/2021 Discontinued (Stop Taking at Discharge) NONFORMULARY MSM tablet (methylsulfonylmethane) 1 gram daily in morning 0 Active NONFORMULARY 500 mg Pt states to be taking Hyaluronic Acid as 1 capsule in the AM. 0 Active NONFORMULARY 1 g Pt states to take MSM once daily. 0 Active NONFORMULARY Pt states to take Calcium/Magnesium and Zinc as 1 tablet daily. 0 Active NONFORMULARY Pt states to be using CBD cream topically PRN. 0 Active NONFORMULARY Pt states to be using CBD Oil up to BID. *(Unsure of exact dose). Typically it's 5 gtts under the tongue. 0 Active omega-3 acid ethyl esters (care home) 1000 mg oral capsule (12 sources) take [facility] capsule [facility] three times daily C[place]-3 Fatty Acids (FISH OIL) 1000 MG CAPS Take 1,000 mg by mouth 3 times daily 0 Active take 1 capsule by mouth three ti mes daily [place]-3 Fatty Acids (FISH OIL) 1000 MG CAPS Take 3,000 mg by mouth 3 times daily 0 Active omeprazole 20 mg delayed release oral capsule (20 sources) Proton Pump Inhibitor Start: 01-03-2021 take 1 capsule by mouth once daily omeprazole (PRILOSEC) 20 MG delayed release capsule Indications: Gastroesophageal reflux disease, unspecified whether esophagitis present Take 1 capsule by mouth daily 90 capsule 1 01/03/2021 Active Start: 06-18-2020 take 1 capsule by mo uth once daily omeprazole (PRILOSEC) 20 MG delayed release capsule Take 1 capsule by mouth daily 90 capsule 0 06/18/2020 Active Start: 07-27-2019 take 1 capsule by mo uth once daily omeprazole (PRILOSEC) 20 MG delayed release capsule Take 1 capsule by mouth daily 90 capsule 3 07/27/2019 Active take 1 capsule by mo uth once daily omeprazole (PRILOSEC) 20 MG delayed release capsule Take 20 mg by mouth daily 0 Active ondansetron (ZOFRAN-ODT) disintegrating tablet 4 mg (5 sources) Start: 01-11-2023 ondansetron (Z OFRAN-ODT) disintegrating tablet 4 mg Start: 11-18-2022 ondansetron (Z OFRAN-ODT) disintegrating tablet 4 mg Start: 10-04-2022 ondansetron (Z OFRAN-ODT) disintegrating tablet 4 mg Start: 09-07-2022 ondansetron (Z OFRAN-ODT) disintegrating tablet 4 mg Start: 02-08-2021 ondansetron (Z OFRAN-ODT) disintegrating tablet 4 mg 24 hr oxybutynin chloride 10 mg extended release oral tablet (20 sources) Cholinergic Muscarinic Antagonist Start: 10-14-2021 oxybutynin (DITROPAN-XL) 10 MG extended release tablet Indications: Mixed incontinence TAKE 1 TABLET DAILY 90 tablet 0 10/14/2021 Active Start: 02-26-2021 oxybutynin (DI TROPAN-XL) 10 MG extended release tablet Indications: Mixed incontinence TAKE 1 TABLET DAILY 90 tablet 0 02/26/2021 Active Start: 02-08-2021 take 10 mg by mouth once daily 10 mg, Oral, DAILY, First dose on Thu02/08/21 at 1000 Do not crush or break. Start: 11-23-2020 take 1 tablet by chilo th once daily oxybutynin (DITROPAN XL) 10 MG extended release tablet Indications: Mixed incontinence Take 1 tablet by mouth daily 90 tablet 0 11/23/2020 Active Start: 06-18-2020 take 1 tablet by chilo th once daily oxybutynin (DITROPAN XL) 10 MG extended release tablet Indications: Mixed incontinence Take 1 tablet by mouth daily 90 tablet 0 06/18/2020 Active Start: 09-12-2019 take 1 tablet by chilo th once daily oxybutynin (DITROPAN XL) 10 MG extended release tablet Indications: Mixed incontinence Take 1 tablet by mouth daily 90 tablet 3 09/12/2019 Active pioglitazone 15 mg oral tablet (7 sources) Peroxisome Proliferator Receptor alpha Agonist, Peroxisome Proliferator Receptor gamma Agonist, Thiazolidinedione Start: 11-24-2019 take 30 mg by mouth once daily 30 mg, Oral, DAILY, First dose on Delfina 11/24/19 at 0900 Start: 09-13-2019 take 1 tablet by chilo th once daily pioglitazone (ACTOS) 30 MG tablet Take 1 tablet by mouth daily 90 tablet 3 09/13/2019 Active prednisoLONE acetate 10 mg/ml ophthalmic suspension (17 sources) Corticosteroid Start: 02-08-2021 1 drop, Both E yes, EVERY 6 HOURS SCHEDULED (4 times per day), First dose on Thu02/08/21 at 1200 Start: 01-18-2020 End: 08-15-2021 prednisoLONE acetate (PRED F ORTE) 1 % ophthalmic suspension Place 1 drop into both eyes Pt states she's to take this up to 4 times daily. 0 01/18/2020 08/15/2021 Discontinued (Therapy completed) predniSONE 10 mg oral tablet (1 source) Start: 06-15-2021 predniSONE (DE LTASONE) 10 MG tablet 4 tabs daily for 3 days, 3 tabs daily for 3 days, 2 tabs daily for 3 days, 1 tab daily for 3 days 30 tablet 0 06/15/2021 Active semaglutide 7 mg oral tablet (2 sources) Start: 04-08-2023 End: 06-07-2023 Semaglutide (RYBELSUS) 7 MG TABS Indications: Type 2 diabetes mellitus with stage 3 chronic kidney disease, with long-term current use of insulin, unspecified whether stage 3a or 3b CKD (HCC) Take 7 mg by mouth daily 60 tablet 0 04/08/2023 06/07/2023 Active Start: 03-05-2023 End: 04-04-2023 Semaglutide (RYBELSUS) 3 MG TABS Indications: Type 2 diabetes mellitus with stage 3 chronic kidney disease, with long-term current use of insulin, unspecified whether stage 3a or 3b CKD (HCC) Take 3 mg by mouth daily 30 tablet 0 03/05/2023 04/04/2023 Active spironolactone 25 mg oral tablet (20 sources) Aldosterone Antagonist Start: 11-25-2022 take 1 tablet by mouth once daily spironolactone (ALDACTONE) 25 MG tablet Indications: Cirrhosis of liver without ascites, unspecified hepatic cirrhosis type (HCC) Take 1 tablet by mouth daily 30 tablet 0 11/25/2022 Active Start: 10-08-2022 spironolactone (ALDACTONE) tablet 25 mg Start: 10-04-2022 End: 10-08-2022 take 50 mg by mouth once daily 50 mg, Oral, DAILY, Fir st dose on 10/04/22 at 0900, Until Discontinued Start: 09-07-2022 take 50 mg by mouth once daily 50 mg, Oral, DAILY, First dose on 09/07/22 at 0900, Until Discontinued Start: 07-21-2022 End: 11-21-2022 take 1 tablet by mouth once daily spironolactone (ALDACTONE) 50 MG tablet Indications: Cirrhosis of liver without ascites, unspecified hepatic cirrhosis type (HCC) Take 1 tablet by mouth daily 30 tablet 5 07/21/2022 11/21/2022 Discontinued (REORDER) therapeutic multivitamin-minerals 1 tablet (1 source) Start: 11-19-2022 therapeutic multivitamin-minerals 1 tablet traMADol hydrochloride 50 mg oral tablet (17 sources) Opioid Agonist Start: 04-30-2023 End: 05-30-2023 take 0.5 tablet by mouth every eight hours as needed for pain traMADol (ULTRAM) 50 MG tablet Indications: Chronic midline low back pain without sciatica Take 0.5 tablets by mouth every 8 hours as needed for Pain for up to 30 days. Intended supply: 3 days. Take lowest dose possible to manage pain Max Daily Amount: 75 mg 45 tablet 0 04/30/2023 05/30/2023 Active Start: 02-26-2023 End: 03-12-2023 take 1 tablet by mouth every six hours as needed for pain traMADol (ULTRAM) 50 MG tablet Indications: E. coli UTI , Closed fracture of multiple ribs of left side with routine healing Take 1 tablet by mouth every 6 hours as needed for Pain for up to 14 days. Space out to 8 hours or more as pain improves Max Daily Amount: 200 mg 42 tablet 0 02/26/2023 03/12/2023 Active Start: 08-01-2020 take 1 tablet by chilo th four times daily as needed for pain traMADol (ULTRAM) 50 MG tablet TAKE 1 TABLET BY MOUTH FOUR TIMES A DAY NEEDED FOR PAIN 0 08/01/2020 Active Start: 04-28-2020 End: 05-03-2020 take 2 tablets by mouth every eight hours as needed for pain traMADol (ULTRAM) 50 MG tablet Indications: Closed 2-part displaced fracture of surgical neck of right humerus, initial encounter Take 2 tablets by mouth every 8 hours as needed for Pain for up to 5 days. 30 tablet 0 04/28/2020 05/03/2020 Active Start: 04-28-2020 End: 04-28-2020 traMADol (ULTRAM) tablet 100 mg take 0.5 tablet by m outh every twelve hours as needed for pain traMADol (ULTRAM) 50 MG tablet Take 0.5 tablets by mouth every 12 hours as needed for Pain. 0 Active take 1 tablet by chilo th every six hours as needed for pain traMADol (ULTRAM) 50 MG tablet Take 50 mg by mouth every 6 hours as needed for Pain. 0 Active traZODone hydrochloride 100 mg oral tablet (20 sources) Serotonin Reuptake Inhibitor Start: 01-15-2023 traZODone (DESYREL) tablet 50 mg Start: 11-25-2022 End: 01-21-2023 take 1 tablet by mouth once daily as needed for sleep traZODone (DESYREL) 100 MG tablet Take 1 tablet by mouth nightly as needed for Sleep 5 tablet 0 01/16/2023 Active Start: 11-20-2022 traZODone (FARSHAD YREL) tablet 100 mg Start: 09-07-2022 take 100 mg by mouth once leno y 100 mg, Oral, NIGHTLY, First dose on 09/07/22 at 0130, Until Discontinued Start: 10-28-2020 End: 10-13-2022 take 2 tablets by mouth once daily traZODone (DESYREL) 50 MG tablet Take 100 mg by mouth nightly 0 10/28/2020 10/13/2022 Discontinued (Stop Taking at Discharge) Start: 10-28-2020 take 1 tablet by chilo th once daily traZODone (DESYREL) 50 MG tablet Take 50 mg by mouth nightly 0 10/28/2020 Active Start: 11-24-2019 take 50 mg by mouth once daily 50 mg, Oral, NIGHTLY, First dose on Delfina 11/24/19 at 2100 Start: 07-11-2019 take 1 tablet by chilo th once daily traZODone (DESYREL) 50 MG tablet Take 1 tablet by mouth nightly 90 tablet 0 07/11/2019 Active take 1 tablet by chilo th once daily traZODone (DESYREL) 50 MG tablet Take 50 mg by mouth nightly 0 Active trospium chloride 20 mg oral tablet (20 sources) Cholinergic Muscarinic Antagonist Start: 02-10-2023 take 1 tablet by mouth twice daily trospium (SANCTURA) 20 MG tablet Take 1 tablet by mouth 2 times daily 180 tablet 3 02/10/2023 Active Start: 11-19-2022 End: 11-21-2022 take 20 mg by mouth once at bedtime 20 mg, Oral, EVERY BEDTIME, First dose on Thu11/19/22 at 2200, Until Discontinued Start: 05-07-2022 take 1 tablet by chilo th twice daily trospium (SANCTURA) 20 MG tablet Take 1 tablet by mouth 2 times daily 60 tablet 3 05/07/2022 Active Completed/Discontinued Medications Medication Drug Class(es) Dates Sig (Normalized) Sig (Original) acetaminophen 325 mg / oxyCODONE hydrochloride 5 mg oral tablet (1 source) Opioid Agonist Start: 04-28-2020 End: 04-28-2020 oxyCODONE-acetami nophen (PERCOCET) 5-325 MG per tablet 2 tablet albuterol 0.83 mg/ml inhalation solution (2 sources) beta2-Adrenergic Agonist Start: 10-06-2022 End: 10-06-2022 albuterol (PROVENTIL) nebulizer solution 2.5 mg Start: 10-06-2022 End: 10-06-2022 albuterol (PROVENTIL) (2.5 M G/3ML) 0.083% nebulizer solution albuterol 0.833 mg/ml / ipratropium bromide 0.167 mg/ml inhalation solution (1 source) Anticholinergic, beta2-Adrenergic Agonist Start: 10-05-2022 End: 10-08-2022 ipratropium-albuterol (DUONEB) nebulizer solution 1 ampule albuterol sulfate HFA 108 (90 Base) MCG/ACT inhaler 4 puff (1 source) Start: 02-01-2020 End: 02-01-2020 albuterol sulfate HFA 108 (90 Base) MCG/ACT inhaler 4 puff allopurinol 300 mg oral tablet (20 sources) Xanthine Oxidase Inhibitor Start: 01-11-2023 take 150 mg by mouth once daily 150 mg, Oral, DAILY, First dose on 01/11/23 at 0900, Until Discontinued Start: 11-19-2022 take 150 mg by mouth once leno y 150 mg, Oral, DAILY, First dose on Thu11/19/22 at 0900, Until Discontinued Start: 10-02-2022 End: 01-21-2023 take 0.5 tablet by mouth once daily allopurinol (ZYLOPRIM) 300 MG tablet Take 0.5 tablets by mouth daily 45 tablet 3 10/23/2022 Active Start: 09-07-2022 take 150 mg by mouth once elno y 150 mg, Oral, DAILY, First dose on 09/07/22 at 0900, Until Discontinued Start: 06-17-2022 End: 09-15-2022 take 0.5 tablet by mouth once daily allopurinol (ZYLOPRIM) 300 MG tablet Take 0.5 tablets by mouth daily 45 tablet 3 06/17/2022 09/15/2022 Active Start: 04-12-2021 take 0.5 tablet by m outh once daily allopurinol (ZYLOPRIM) 300 MG tablet Take 0.5 tablets by mouth daily 45 tablet 0 04/12/2021 Active Start: 06-18-2020 take 0.5 tablet by m outh once daily allopurinol (ZYLOPRIM) 300 MG tablet Take 0.5 tablets by mouth daily 45 tablet 0 06/18/2020 Active Start: 04-30-2020 allopurinol (Z YLOPRIM) tablet 150 mg Start: 02-28-2020 take 0.5 tablet by m outh once daily allopurinol (ZYLOPRIM) 300 MG tablet Take 0.5 tablets by mouth daily 90 tablet 1 02/28/2020 Active ALPRAZolam 1 mg oral tablet (1 source) Benzodiazepine Start: 11-24-2019 End: 11-24-2019 ALPRAZolam (XANAX) tablet 1 mg atorvastatin 80 mg oral tablet (20 sources) HMG-CoA Reductase Inhibitor Start: 11-18-2022 take 80 mg by mouth once daily 80 mg, Oral, NIGHTLY, First dose on Tu11/18/22 at 2330, Until Discontinued Start: 10-23-2022 atorvastatin ( LIPITOR) 80 MG tablet TAKE 1 TABLET DAILY 90 tablet 3 10/23/2022 Active Start: 10-02-2022 atorvastatin ( LIPITOR) tablet 80 mg Start: 09-07-2022 take 80 mg by mouth once daily 80 mg, Oral, DAILY, First dose on Thu09/07/22 at 0900, Until Discontinued Start: 06-09-2022 atorvastatin ( LIPITOR) 80 MG tablet TAKE 1 TABLET DAILY 90 tablet 3 06/09/2022 Active Start: 02-08-2021 take 80 mg by mouth once daily 80 mg, Oral, NIGHTLY, First dose on Thu02/08/21 at 2100 Start: 11-23-2020 atorvastatin ( LIPITOR) 80 MG tablet TAKE 1 TABLET DAILY 90 tablet 3 04/12/2021 Active Start: 01-04-2020 take 1 tablet by chilo th once daily atorvastatin (LIPITOR) 80 MG tablet Take 1 tablet by mouth daily 90 tablet 3 01/04/2020 Active Start: 10-11-2019 take 80 mg by mouth once daily 80 mg, Oral, DAILY, First dose on Delfina 11/24/19 at 0900 Start: 07-11-2019 take 1 tablet by chilo th once daily atorvastatin (LIPITOR) 80 MG tablet Take 1 tablet by mouth daily 90 tablet 0 07/11/2019 Active take 1 tablet by chilo th once daily atorvastatin (LIPITOR) 80 MG tablet Take 80 mg by mouth daily 0 Active baclofen 10 mg oral tablet (20 sources) gamma-Aminobutyric Acid-ergic Agonist Start: 10-14-2021 End: 09-11-2022 take 1 tablet by mouth twice daily baclofen (LIORESAL) 10 MG tablet Take 1 tablet by mouth 2 times daily Dispense only baclofen 180 tablet 2 10/14/2021 09/11/2022 Discontinued (Stop Taking at Discharge) Start: 03-22-2021 baclofen (PRO ESAL) 10 MG tablet TAKE 1 TABLET IN THE MORNING, 1 TABLET IN THE AFTERNOON, AND 2 TABLETS ATBEDTIME 120 tablet 2 04/12/2021 Active Start: 02-08-2021 take 10 mg by mouth three times daily 10 mg, Oral, 3 TIMES DAILY, First dose on Thu02/08/21 at 1000 Start: 04-30-2020 baclofen (PRO ESAL) tablet 20 mg Start: 07-19-2019 baclofen (PRO ESAL) 10 MG tablet One tablet in the morning one tablet in the afternoon and 2 tablets at bedtime 360 tablet 2 04/27/2020 Active Start: 06-15-2019 baclofen (PRO ESAL) 10 MG tablet One tablet in the morning one tablet in the afternoon and 2 tablets at bedtime 120 tablet 2 06/15/2019 Active take 1 tablet by chilo th once daily at bedtime baclofen (LIORESAL) 20 MG tablet Take 20 mg by mouth daily At bedtime 0 Active 60 actuat budesonide 0.16 mg/actuat / formoterol fumarate 0.0045 mg/actuat metered dose inhaler (1 source) Corticosteroid, beta2-Adrenergic Agonist Start: 01-11-2023 take 2 puff(s) by inhalation twice daily 2 puff, Inhalation, 2 TIMES DAILY, First dose on 01/11/23 at 0045, Until Discontinued Substituted for Fluticasone-vilanterol (BREO ELLIPTA). calcium chloride 0.0014 meq/ml / potassium chloride 0.004 meq/ml / sodium chloride 0.103 meq/ml / sodium lactate 0.028 meq/ml injectable solution (5 sources) Start: 10-04-2022 End: 10-05-2022 IntraVENous, at 100 mL/hr, CONTINUOUS, Starting on 10/04/22 at 0500 Start: 03-18-2022 lactated ringe rs infusion Start: 11-26-2021 lactated ringe rs infusion Start: 08-14-2021 End: 08-14-2021 lactated ringers infusion 1, 000 mL Start: 11-24-2019 Intravenous, a t 50 mL/hr, CONTINUOUS, Starting Delfina 11/24/19 at 0315 ceFAZolin (ANCEF) 2000 mg in sterile water 20 mL IV syringe (1 source) Start: 10-06-2022 End: 10-07-2022 2,000 mg, IntraVENous, EVERY 8 HOURS, 4 doses, First dose on Thu10/06/22 at 1999, Last dose on Thu10/07/22 at 1999 Antimicrobial Indications: Surgical Prophylaxis Administer over 5 mins. cefTRIAXone (ROCEPHIN) 1,000 mg in sodium chloride 0.9 % 50 mL IVPB (mini-bag) (3 sources) Start: 01-10-2023 End: 01-10-2023 cefTRIAXone (ROCEPHIN) 1,000 mg in sodium chloride 0.9 % 50 mL IVPB (mini-bag) Start: 11-19-2022 End: 11-23-2022 cefTRIAXone (ROCEPHIN) 1,000 mg in sodium chloride 0.9 % 50 mL IVPB (mini-bag) Start: 11-18-2022 End: 11-18-2022 cefTRIAXone (ROCEPHIN) 1,000 mg in sodium chloride 0.9 % 50 mL IVPB (mini-bag) cefTRIAXone (ROCEPHIN) 1,000 mg in sterile water 10 mL IV syringe (1 source) Start: 01-11-2023 End: 01-13-2023 take 100 mg intravenously every twenty-four hours 1,000 mg, IntraVENous, EVERY 24 HOURS, 5 doses, First dose on Thu01/11/23 at 2130, Last dose on Thu01/15/23 at 2130 Antimicrobial Indications: Urinary Tract Infection UTI duration of therapy: 5 days Administer as slow IV Push over 5 mins Reconstitute 1 g vials with 9.6 mL of designated diluent to produce a 100 mg/mL solution. cetirizine hydrochloride 10 mg oral tablet (2 sources) Histamine-1 Receptor Antagonist Start: 09-07-2022 take 5 mg by mouth once daily 5 mg, Oral, DAILY, First dose on Thu09/07/22 at 0900, Until Discontinued Substituted for Fexofenadine (KADE). Start: 02-08-2021 take 10 mg by mouth once daily 10 mg, Oral, DAILY, First dose on Thu02/08/21 at 1000 Substituted for Fexofenadine (KADE). cholecalciferol 0.025 mg oral tablet (20 sources) Vitamin D Start: 09-07-2022 take 1000 [IU] by mouth once daily 1,000 Units, Oral, DAILY, First dose on Thu11/19/22 at 0900, Until Discontinued Start: 11-24-2019 take 1000 [IU] by mo uth twice daily 1,000 Units, Oral, 2 TIMES DAILY, First dose on Thu02/08/21 at 1000 cycloSPORINE 0.5 mg/ml ophthalmic suspension (20 sources) Calcineurin Inhibitor Immunosuppressant Start: 01-18-2020 End: 10-13-2022 take 1 drop(s) into the eye(s) every twelve hours RESTASIS 0.05 % ophthalmic emulsion Place 1 drop into both eyes every 12 hours 0 01/18/2020 10/13/2022 Discontinued (Stop Taking at Discharge) take 1 drop(s) into the eye(s) in the morning cycloSPORINE (RESTASIS) 0.05 % ophthalmi c emulsion Place 1 drop into both eyes in the morning and 1 drop in the evening. 0 Active diazePAM 2 mg oral tablet (1 source) Benzodiazepine Start: 01-13-2023 End: 01-13-2023 diazePAM (VALIUM) tablet 2 mg diphenhydrAMINE hydrochloride 25 mg oral tablet (10 sources) Histamine-1 Receptor Antagonist Start: 10-14-2022 End: 10-14-2022 diphenhydrAMINE (BENADRYL) tablet 25 mg Start: 10-13-2022 End: 10-13-2022 diphenhydrAMINE (BENADRYL) t ablet 25 mg Start: 10-12-2022 End: 10-12-2022 diphenhydrAMINE (BENADRYL) t ablet 12.5 mg Start: 10-10-2022 End: 10-11-2022 diphenhydrAMINE (BENADRYL) i njection 25 mg Start: 10-06-2022 End: 10-06-2022 diphenhydrAMINE (BENADRYL) i njection 12.5 mg Start: 10-04-2022 End: 10-04-2022 diphenhydrAMINE (BENADRYL) i njection 12.5 mg Start: 10-03-2022 End: 10-03-2022 diphenhydrAMINE (BENADRYL) i njection 25 mg Start: 08-14-2021 End: 08-14-2021 diphenhydrAMINE (BENADRYL) i njection 50 mg Start: 08-14-2021 End: 08-14-2021 diphenhydrAMINE (BENADRYL) i njection 25 mg Start: 02-08-2021 diphenhydrAMIN E (BENADRYL) injection 25 mg divalproex (DEPAKOTE ER) extended release tablet 750 mg (5 sources) Start: 01-11-2023 take 750 mg by mouth once daily 750 mg, Oral, Nightly, First dose on 01/11/23 at 0045, Until Discontinued Do not crush or break. Start: 11-18-2022 take 750 mg by mouth once daily 750 mg, Oral, Nightly, First dose on Thu11/18/22 at 2330, Until Discontinued Do not crush or break. Start: 10-10-2022 divalproex (DE PAKOTE ER) extended release tablet 750 mg Start: 02-08-2021 take 750 mg by mouth once daily 750 mg, Oral, NIGHTLY, First dose on Thu02/08/21 at 2100 Do not crush or break. Start: 11-24-2019 take 750 mg by mouth once daily 750 mg, Oral, NIGHTLY, First dose on Thu11/24/19 at 2100 Do not crush or break. docosahexaenoic acid 120 mg / eicosapentaenoic acid 180 mg oral capsule (20 sources) End: 10-13-2022 take 1 capsule by mouth three times daily Cataumet-3 Fatty Acids (FISH OIL) 1000 MG CAPS Take 1,000 mg by mouth 3 times daily 0 10/13/2022 Discontinued (Stop Taking at Discharge) 0.3 ml enoxaparin sodium 100 mg/ml prefilled syringe (3 sources) Low Molecular Weight Heparin Start: 09-07-2022 inject 30 mg by subcutaneous injection once daily 30 mg, SubCUTAneous, DAILY, First dose on 09/07/22 at 0900, Until Discontinued Indication of Use: Prophylaxis-DVT/P E Start: 02-08-2021 enoxaparin (LO VENOX) injection 40 mg Start: 11-24-2019 enoxaparin (LO VENOX) injection 30 mg ferric carboxymaltose (INJECTAFER) 750 mg in sodium chloride 0.9 % 250 mL IVPB (2 sources) Start: 10-06-2019 End: 10-06-2019 ferric carboxymaltose (INJECTAFER) 750 mg in sodium chloride 0.9 % 250 mL IVPB Start: 09-28-2019 End: 09-28-2019 ferric carboxymaltose (INJEC TAFER) 750 mg in sodium chloride 0.9 % 250 mL IVPB ferrous sulfate 325 mg delay ed release oral tablet (20 sources) Start: 01-11-2023 325 mg, Oral, EVERY 48 HOURS, First dose on 01/11/23 at 0045, Until Discontinued Start: 11-19-2022 ferrous sulfat e (IRON 325) tablet 325 mg Start: 09-07-2022 325 mg, Oral, EVERY 48 HOURS, First dose on 09/07/22 at 0130, Until Discontinued Start: 02-08-2021 325 mg, Oral, EVERY 48 HOURS, First dose on Thu02/08/21 at 1000 Start: 06-18-2020 take 1 tablet by chilo th every other day ferrous sulfate (IRON 325) 325 (65 Fe) MG tablet Take 1 tablet by mouth every 48 hours Every other day 45 tablet 0 06/18/2020 Active take 1 tablet by chilo th every other day ferrous sulfate 325 (65 Fe) MG tablet Take 325 mg by mouth Every other day 0 Active take 1 tablet by chilo th twice daily ferrous sulfate 325 (65 Fe) MG tablet Take 325 mg by mouth BID EVERY DAY 0 Active fexofenadine hydrochloride 180 mg oral tablet (20 sources) Histamine-1 Receptor Antagonist Start: 12-12-2020 End: 10-13-2022 take 1 tablet by mouth once daily fexofenadine (KADE) 180 MG tablet Indications: Seasonal allergic rhinitis due to pollen Take 1 tablet by mouth daily 90 tablet 0 12/12/2020 10/13/2022 Discontinued (Stop Taking at Discharge) Start: 06-18-2020 take 1 tablet by chilo th once daily fexofenadine (KADE) 180 MG tablet Take 1 tablet by mouth daily 90 tablet 0 06/18/2020 Active take 1 tablet by chilo th once daily fexofenadine (KADE) 180 MG tablet Take 180 mg by mouth daily 0 Active FLUoxetine 20 mg oral capsule (20 sources) Serotonin Reuptake Inhibitor Start: 01-11-2023 take 40 mg by mouth once daily 40 mg, Oral, DAILY, First dose on 01/11/23 at 0900, Until Discontinued Start: 11-25-2022 End: 02-23-2023 take 1 capsule by mouth once daily FLUoxetine (PROZAC) 40 MG capsule Indications: Bipolar disorder with depression (HCC) Take 1 capsule by mouth daily 30 capsule 0 11/25/2022 Active Start: 11-19-2022 take 40 mg by mouth once daily 40 mg, Oral, DAILY, First dose on Thu11/19/22 at 0900, Until Discontinued Start: 10-05-2022 take 40 mg by mouth once daily 40 mg, Oral, DAILY, First dose on 10/05/22 at 1245, Until Discontinued Start: 09-07-2022 take 40 mg by mouth once daily 40 mg, Oral, DAILY, First dose on 09/07/22 at 0900, Until Discontinued Start: 08-13-2022 End: 11-21-2022 take 1 capsule by mouth once daily FLUoxetine (PROZAC) 40 MG capsule Indications: Bipolar disorder with depression (HCC) Take 1 capsule by mouth daily 0 08/13/2022 11/21/2022 Discontinued Start: 02-08-2021 take 60 mg by mouth once daily 60 mg, Oral, DAILY, First dose on Thu02/08/21 at 1000 Start: 08-13-2020 FLUoxetine (LA OZAC) 10 MG capsule Indications: Bipolar disorder with depression (HCC) TAKE 3 CAPSULES DAILY 270 capsule 0 08/13/2020 Active Start: 04-30-2020 FLUoxetine (LA OZAC) capsule 30 mg Start: 03-02-2020 take 3 capsules by m outh once daily FLUoxetine (PROZAC) 10 MG capsule Indications: Bipolar disorder with depression (HCC) TAKE 3 CAPSULES BY MOUTH DAILY 270 capsule 1 03/02/2020 Active Start: 11-24-2019 take 30 mg by mouth once daily 30 mg, Oral, DAILY, First dose on Delfina 11/24/19 at 0900 Start: 08-24-2019 take 3 capsules by m outh once daily FLUoxetine (PROZAC) 10 MG capsule TAKE 3 CAPSULES BY MOUTH DAILY 270 capsule 0 08/24/2019 Active Start: 06-10-2019 take 3 capsules by m outh once daily FLUoxetine (PROZAC) 10 MG capsule TAKE 3 CAPSULES BY MOUTH DAILY 270 capsule 0 06/10/2019 Active fluticasone propionate 0.05 mg/actuat metered dose nasal spray (20 sources) Corticosteroid Start: 11-18-2022 take 2 spray(s) nasal route once daily as needed 2 spray, Each Nostril, DAILY PRN, Starting on Thu11/18/22 at 2306, Until Discontinued, Allergies Start: 09-07-2022 take 2 spray(s) nasa l route once daily 2 spray, Each Nostril, DAILY, First dose on Thu09/07/22 at 0900, Until Discontinued Start: 02-08-2021 take 2 spray(s) nasa l route once daily 2 spray, Each Nostril, DAILY, First dose on Thu02/08/21 at 1000 Start: 04-03-2020 End: 10-13-2022 take 2 spray(s) nasal route once daily as needed fluticasone (FLONASE) 50 MCG/ACT nasal spray 2 sprays by Each Nostril route daily as needed for Allergies 0 10/13/2022 Active take 2 spray(s) nasa l route once daily fluticasone (FLONASE) 50 MCG/ACT nasal spray 2 sprays by Each Nostril route daily 0 Active 60 actuat formoterol fumarate 0.005 mg/actuat / mometasone furoate 0.2 mg/actuat metered dose inhaler (1 source) Corticosteroid, beta2-Adrenergic Agonist Start: 11-18-2022 take 2 puff(s) by inhalation twice daily 2 puff, Inhalation, 2 TIMES DAILY, First dose on Thu11/18/22 at 2330, Until Discontinued Substituted for Fluticasone-vilanterol (BREO ELLIPTA). furosemide 20 mg oral tablet (20 sources) Loop Diuretic Start: 11-25-2022 End: 01-15-2023 take 20 mg by mouth once daily 20 mg, Oral, DAILY, First dose on Thu01/11/23 at 0900, Until Discontinued Start: 10-09-2022 furosemide (LA SIX) tablet 20 mg Start: 07-21-2022 End: 11-21-2022 take 1 tablet by mouth once daily furosemide (LASIX) 40 MG tablet Indications: Cirrhosis of liver without ascites, unspecified hepatic cirrhosis type (HCC) Take 1 tablet by mouth daily 60 tablet 3 07/21/2022 11/21/2022 Discontinued (REORDER) 1 ml haloperidol 5 mg/ml injection (1 source) Typical Antipsychotic Start: 08-14-2021 End: 08-14-2021 haloperidol lactate (HALDOL) injection 5 mg 1 ml heparin sodium, porcine 5000 unt/ml prefilled syringe (3 sources) Unfractionated Heparin, Anti-coagulant Start: 01-11-2023 inject 1 dose by subcutaneous injection three times daily 5,000 Units, SubCUTAneous, EVERY 8 HOURS SCHEDULED (3 times per day), First dose on Thu01/11/23 at 0045, Until Discontinued Start: 11-18-2022 inject 1 dose by sub cutaneous injection three times daily 5,000 Units, SubCUTAneous, EVERY 8 HOURS SCHEDULED (3 times per day), First dose on Thu11/18/22 at 2330, Until Discontinued Start: 10-07-2022 heparin (porci ne) injection 5,000 Units hyaluronate (16 sources) End: 09-11-2022 take 1 capsule by mouth once daily Sodium Hyaluronate, oral, (HYALURONIC ACID) 100 MG CAPS Take 1 capsule by mouth nightly 0 09/11/2022 Discontinued (Stop Taking at Discharge) take 1 capsule by mouth once blessing ly Sodium Hyaluronate, oral, (HYALURONIC ACID) 100 MG CAPS Take 1 capsule by mouth nightly 0 Suspended take 1 capsule by mouth once blessing ly Sodium Hyaluronate, oral, (HYALURONIC ACID) 100 MG CAPS Take 1 capsule by mouth nightly 0 Active 1 ml HYDROmorphone hydrochloride 1 mg/ml cartridge (1 source) Opioid Agonist Start: 10-03-2022 End: 10-03-2022 HYDROmorphone (DILAUDID) injection 1 mg Start: 10-03-2022 End: 10-03-2022 HYDROmorphone (DILAUDID) inj ection 1 mg iopamidol (ISOVUE-370) 76 % injection 75 mL (1 source) Start: 08-14-2021 End: 08-14-2021 iopamidol (ISOVUE-370) 76 % injection 75 mL 1 ml ketorolac tromethamine 30 mg/ml cartridge (1 source) Nonsteroidal Anti-inflammatory Drug, Cyclooxygenase Inhibitor Start: 01-11-2023 End: 01-14-2023 ketorolac (TORADOL) injection 30 mg lactulose 667 mg/ml oral solution (20 sources) Osmotic Laxative Start: 10-09-2022 lactulose (CH RONULAC) 10 GM/15ML solution 20 g Start: 09-07-2022 End: 10-09-2022 take 45 mL by mouth twice daily lactulose (CHRONULAC) 10 GM/15ML solution Take 45 mLs by mouth 2 times daily 473 mL 1 09/11/2022 Active Start: 09-06-2022 End: 09-06-2022 lactulose (CHRONULAC) 10 GM/ 15ML solution 20 g 100 ml magnesium sulfate 40 mg/ml injection (6 sources) Start: 11-29-2022 End: 11-29-2022 magnesium sulfate 4000 mg in 100 mL IVPB premix Start: 11-21-2022 End: 11-21-2022 magnesium sulfate 1000 mg in dextrose 5% 100 mL IVPB Start: 11-20-2022 End: 11-20-2022 magnesium sulfate 2000 mg in 50 mL IVPB premix Start: 10-03-2022 End: 10-04-2022 4,000 mg, IntraVENous, at 25 mL/hr, Administer over 4 Hours, ONCE, On Thu10/03/22 at 2100, For 1 dose Recommended infusion rate not to exceed 1,000 mg (milligrams) per hour. Start: 09-06-2022 End: 09-07-2022 magnesium sulfate 4000 mg in 100 mL IVPB premix metFORMIN hydrochloride 500 mg oral tablet (20 sources) Biguanide Start: 11-19-2022 take 1000 mg by mouth twice daily at mealtime 1,000 mg, Oral, 2 TIMES DAILY WITH MEALS, First dose on Thu11/19/22 at 0800, Until Discontinued Start: 10-23-2022 End: 11-25-2022 metFORMIN (GLUCOPHAGE) 1000 MG tablet TAKE 1 TABLET IN THE MORNING AND 1 TABLET IN THEEVENING WITH MEALS 180 tablet 3 10/23/2022 11/25/2022 Discontinued (Stop Taking at Discharge) Start: 10-08-2022 metFORMIN (GLU COPHAGE) tablet 500 mg Start: 10-02-2022 metFORMIN (GLU COPHAGE) 1000 MG tablet TAKE 1 TABLET IN THE MORNING AND 1 TABLET IN THEEVENING WITH MEALS 180 tablet 3 10/02/2022 Active Start: 06-09-2022 metFORMIN (GLU COPHAGE) 1000 MG tablet TAKE 1 TABLET IN THE MORNING AND 1 TABLET IN THEEVENING WITH MEALS 180 tablet 3 08/21/2022 Active Start: 03-28-2022 take 1 tablet by chilo th in the morning metFORMIN (GLUCOPHAGE) 1000 MG tablet Take 1 tablet by mouth in the morning and 1 tablet in the evening. Take with meals. 180 tablet 0 03/28/2022 Active Start: 09-04-2021 take 1 tablet by chilo th twice daily at mealtime metFORMIN (GLUCOPHAGE) 1000 MG tablet Take 1 tablet by mouth 2 times daily (with meals) 180 tablet 1 09/04/2021 Active Start: 02-08-2021 take 1000 mg by mout h twice daily at mealtime 1,000 mg, Oral, 2 TIMES DAILY WITH MEALS, First dose on Thu02/08/21 at 1000 Start: 01-30-2021 take 1 tablet by chilo th twice daily at mealtime metFORMIN (GLUCOPHAGE) 1000 MG tablet Take 1 tablet by mouth 2 times daily (with meals) 180 tablet 1 01/30/2021 Active Start: 06-18-2020 take 1 tablet by chilo th twice daily at mealtime metFORMIN (GLUCOPHAGE) 1000 MG tablet Take 1 tablet by mouth 2 times daily (with meals) 180 tablet 0 06/18/2020 Active Start: 04-30-2020 metFORMIN (GLU COPHAGE) tablet 1,000 mg Start: 11-24-2019 take 1000 mg by mout h twice daily at mealtime 1,000 mg, Oral, 2 TIMES DAILY WITH MEALS, First dose on Thu11/24/19 at 0800 Start: 09-06-2019 take 1 tablet by chilo th twice daily at mealtime metFORMIN (GLUCOPHAGE) 1000 MG tablet Take 1 tablet by mouth 2 times daily (with meals) 180 tablet 3 09/06/2019 Active take 1 tablet by chilo th twice daily at mealtime metFORMIN (GLUCOPHAGE) 1000 MG tablet Take 1,000 mg by mouth 2 times daily (with meals) 0 Active methylPREDNISolone 125 mg injection (1 source) Corticosteroid Start: 08-14-2021 End: 08-14-2021 methylPREDNISolone sodium (SOLU-MEDROL) injection 125 mg 1 ml morphine sulfate 4 mg/ml cartridge (1 source) Opioid Agonist Start: 10-03-2022 End: 10-03-2022 morphine injection 4 mg Multiple Vitamins-Minerals (CENTRUM SILVER 50+WOMEN) TABS (20 sources) Start: 06-18-2020 End: 01-12-2023 take 1 tablet by mouth once daily Multiple Vitamins-Minerals (CENTRUM SILVER 50+WOMEN) TABS Take 1 tablet by mouth daily 90 tablet 0 06/18/2020 01/12/2023 Discontinued (Stop Taking at Discharge) Start: 06-18-2020 take 1 tablet by chilo th once daily Multiple Vitamins-Minerals (CENTRUM SILVER 50+WOMEN) TABS Take 1 tablet by mouth daily 90 tablet 0 06/18/2020 Suspended Start: 06-18-2020 take 1 tablet by chilo th once daily Multiple Vitamins-Minerals (CENTRUM SILVER 50+WOMEN) TABS Take 1 tablet by mouth daily 90 tablet 0 06/18/2020 Active take 1 tablet by chilo th once daily Multiple Vitamins-Minerals (CENTRUM SILVER 50+WOMEN) TABS Take 1 tablet by mouth daily 0 Active mupirocin 0.02 mg/mg topical ointment (1 source) RNA Synthetase Inhibitor Antibacterial Start: 12-27-2021 End: 12-27-2021 mupirocin (BACTROBAN) 2 % ointment Apply a small amount to each nostril twice daily for at least 2 weeks and then as needed 22 g 0 12/27/2021 12/27/2021 Discontinued nystatin 100 unt/mg topical powder (20 sources) Polyene Antifungal Start: 11-22-2020 End: 10-13-2022 NYSTATIN 947318 UNIT/GM powder Apply 1 each topically as needed 0 11/22/2020 10/13/2022 Discontinued (Stop Taking at Discharge) Start: 11-22-2020 NYSTATIN 90573 0 UNIT/GM powder as needed 0 11/22/2020 Active Start: 04-03-2020 nystatin (MYCO STATIN) 909822 UNIT/GM powder Apply topically 3 times daily 1 Bottle 2 04/03/2020 Active nystatin (MYCOST ATIN) 895683 UNIT/GM powder Apply topically 3 times daily Apply topically 4 times daily PRN 0 Active 2 ml ondansetron 2 mg/ml injection (20 sources) Serotonin-3 Receptor Antagonist Start: 10-03-2022 End: 10-03-2022 ondansetron (ZOFRAN) injection 4 mg Start: 07-06-2021 take 1 tablet by chilo th three times daily as needed for nausea ondansetron (ZOFRAN) 4 MG tablet Take 1 tablet by mouth 3 times daily as needed for Nausea or Vomiting 12 tablet 0 02/19/2021 Active Start: 04-28-2020 take 1 tablet by chilo th every four hours as needed for nausea ondansetron (ZOFRAN) 4 MG tablet Take 1 tablet by mouth every 4 hours as needed for Nausea or Vomiting 15 tablet 0 04/28/2020 Active Start: 04-28-2020 End: 04-28-2020 ondansetron (ZOFRAN-ODT) disintegrating tablet 4 mg Start: 11-24-2019 4 mg, Intraven ous, EVERY 6 HOURS PRN, Nausea, Vomiting, Starting Delfina 11/24/19 at 0256 oxyCODONE hydrochloride 5 mg oral tablet (8 sources) Opioid Agonist Start: 01-10-2023 End: 01-11-2023 oxyCODONE (ROXICODONE) immediate release tablet 5 mg Start: 10-14-2022 End: 10-24-2022 take 1 tablet by mouth every eight hours as needed for pain oxyCODONE (ROXICODONE) 5 MG immediate release tablet Indications: Closed compression fracture of L3 vertebra, initial encounter ([facility]) Take 1 tablet by mouth every 8 hours as needed for Pain for up to 7 days. Max Daily Amount: 15 mg 21 tablet 0 10/17/2022 10/24/2022 Active Start: 10-04-2022 End: 10-14-2022 take 5 mg by mouth every six hours as needed for pain 5 mg, Oral, EVERY 6 HOURS PRN, Starting on 10/04/22 at 0456, Until 10/14/22 at 0742, Pain Severe (7-10) Start: 10-04-2022 End: 10-04-2022 oxyCODONE (ROXICODONE) immed iate release tablet 5 mg Start: 11-24-2019 End: 11-29-2019 take 1 tablet by mouth every eight hours as needed for pain, then take 1 tablet by mouth as needed for pain oxyCODONE (ROXICODONE) 5 MG immediate release tablet Indications: Closed fracture of spinous process of cervical vertebra, initial encounter (HCC) Take 1 tablet by mouth every 8 hours as needed for Pain for up to 5 days. Intended supply: 3 days. Take lowest dose possible to manage pain 12 tablet 0 11/24/2019 11/29/2019 Active oxymetazoline hydrochloride 0.5 mg/ml nasal spray (1 source) Start: 12-27-2021 End: 12-27-2021 oxymetazoline (12 HOUR NASAL SPRAY) 0.05 % nasal spray Use as directed for recurrent nosebleeds. 15 mL 3 12/27/2021 12/27/2021 Discontinued pantoprazole 40 mg delayed release oral tablet (6 sources) Proton Pump Inhibitor Start: 01-11-2023 take 40 mg by mouth once daily before breakfast 40 mg, Oral, DAILY BEFORE BREAKFAST, First dose on 01/11/23 at 0700, Until Discontinued Do not crush or break. Substituted for Omeprazole (PRILOSEC). Start: 11-19-2022 take 40 mg by mouth once daily before breakfast 40 mg, Oral, DAILY BEFORE BREAKFAST, First dose on 11/19/22 at 0700, Until Discontinued Do not crush or break. Substituted for Omeprazole (PRILOSEC). Start: 09-07-2022 take 40 mg by mouth once daily before breakfast 40 mg, Oral, DAILY BEFORE BREAKFAST, First dose on 09/07/22 at 0700, Until Discontinued Do not crush or break. Substituted for Omeprazole (PRILOSEC). Start: 02-09-2021 take 40 mg by mouth once daily before breakfast 40 mg, Oral, DAILY BEFORE BREAKFAST, First dose on 02/09/21 at 0700 Do not crush or break. Substituted for Omeprazole (PRILOSEC). Start: 04-30-2020 pantoprazole ( PROTONIX) tablet 40 mg Start: 11-24-2019 take 40 mg by mouth once daily before breakfast 40 mg, Oral, DAILY BEFORE BREAKFAST, First dose on Delfina 11/24/19 at 0700 Do not crush or break. Substituted for Omeprazole (PRILOSEC). polyethylene glycol 3350 32102 mg powder for oral solution (20 sources) Osmotic Laxative Start: 01-11-2023 17 g, Oral, D AILY PRN, Starting on 01/11/23 at 0018, Until Discontinued, Constipation First line therapy for constipation Start: 11-18-2022 17 g, Oral, DA GILDA PRN, Starting on Thu11/18/22 at 2306, Until Discontinued, Constipation First line therapy for constipation Start: 10-06-2022 17 g, Oral, DA GILDA, First dose on Thu10/06/22 at 1900, Until Discontinued Stir and dissolve one packet of powder (17 g) in any 4 to 8 ounces of beverage (cold, hot or room temperature) then drink Start: 06-18-2020 17 g, Oral, DA GILDA PRN, Starting on Thu09/07/22 at 0113, Until Discontinued, Constipation First line therapy for constipation Start: 11-24-2019 polyethylene g lycol (GLYCOLAX) packet 17 g polyvinyl alcohol 0.014 ml/ml ophthalmic solution (3 sources) Start: 11-18-2022 take 1 drop(s) into the eye(s) twice daily 1 drop, Both Eyes, 2 times daily, First dose on Thu11/18/22 at 2330, Until Discontinued Substituted for cycloSPORINE (RESTASIS). Start: 09-07-2022 take 1 drop(s) into the eye(s) once daily 1 drop, Both Eyes, DAILY, First dose on Thu09/07/22 at 0900, Until Discontinued Substituted for cycloSPORINE (RESTASIS). Start: 02-08-2021 take 1 drop(s) into the eye(s) every six hours as needed 1 drop, Both Eyes, EVERY 6 HOURS PRN, Dry Eyes, Starting on Thu02/08/21 at 0928 Substituted for cycloSPORINE (RESTASIS). microencapsulated potassium chloride 20 meq extended release oral tablet (1 source) Start: 11-21-2022 End: 11-21-2022 potassium chloride (KLOR-CON M) extended release tablet 40 mEq rifAXIMin 550 mg oral tablet (15 sources) Rifamycin Antibacterial Start: 11-18-2022 take 550 mg by mouth twice daily 550 mg, Oral, 2 TIMES DAILY, First dose on Thu11/18/22 at 2330, Until Discontinued Start: 09-29-2022 End: 10-29-2022 take 550 mg by mouth twice daily 550 mg, Oral, 2 TIMES DAILY, First dose on Thu10/07/22 at 0900, Until Discontinued sodium bicarbonate 75 mEq in sodium chloride 0.45 % 1,000 mL infusion (1 source) Start: 11-19-2022 End: 11-21-2022 sodium bicarbonate 75 mEq in sodium chloride 0.45 % 1,000 mL infusion 5 ml sodium chloride 9 mg/ml injection (20 sources) Start: 01-11-2023 take 1 dose intravenously twice daily 5-40 mL, IntraVENous, EVERY 12 HOURS SCHEDULED (2 times per day), First dose on 01/11/23 at 0900, Until Discontinued For Line Patency: Peripheral IV = 5 mL; Midline or Central Line = 10 mL/lumen. &n bsp;If following IV push medication, administer flush at same rate as the IV push. Flush volume is determined by type of infusion therapy being given. For non-viscous solutions use: Peripheral IV = 5 mL Midline or Central Line = 10 mL/lumen F or viscous solutions (i.e. blood components, parenteral nutrition, contrast media, or after obtaining blood sample) use: Peripheral IV = 10 mL Midline or Central Line = 20 mL/lumen Start: 01-11-2023 End: 01-14-2023 IntraVENous, at 125 mL/hr, CONTINUOUS, Starting on 01/11/23 at 0045 Start: 01-11-2023 IntraVENous, a t 5-250 mL/hr, PRN, if patient receiving piggyback infusions and maintenance fluids are not ordered OR KVO fluids to protect IV site / prevent frequent line interruptions/ long duration, Starting on 01/11/23 at 0018 For piggyback infusion, administer at same rate as piggyback for a total of 25 mL. Enter 25 mL into dose field and piggyback rate into rate field of order. If piggyback is infusing at a rate less than 100 mL/hr, enter 25 mL into dose field and 100 mL/hr into rate field of order. For KVO fluids, enter rate of 20 mL/hr or less into rate field of order. Start: 01-11-2023 take 5-40 mL intrave nously once as needed 5-40 mL, IntraVENous, PRN, Starting on 01/11/23 at 0018, Until Discontinued, Line Care, After every IV line use For Line Patency: Peripheral IV = 5 mL; Midline or Central Line = 10 mL/lumen. If following IV push medication, administer flush at same rate as the IV push. Flush volume is determined by type of infusion therapy being given. For non-viscous solutions use: Peripheral IV = 5 mL Midline or Central Line = 10 mL/lumen For viscous solutions (i.e. blood components, parenteral nutrition, contrast media, or after obtaining blood sample) use: Peripheral IV = 10 mL Midline or Central Line = 20 mL/lumen Start: 01-10-2023 End: 01-10-2023 0.9 % sodium chloride bolus Start: 11-21-2022 End: 11-22-2022 0.9 % sodium chloride infusi on Start: 11-18-2022 End: 11-19-2022 IntraVENous, at 125 mL/hr, CONTINUOUS, Starting on Thu11/18/22 at 2330 Start: 11-18-2022 IntraVENous, a t 5-250 mL/hr, PRN, if patient receiving piggyback infusions and maintenance fluids are not ordered OR KVO fluids to protect IV site / prevent frequent line interruptions/ long duration, Starting on Thu11/18/22 at 2306 For piggyback infusion, administer at same rate as piggyback for a total of 25 mL. Enter 25 mL into dose field and piggyback rate into rate field of order. If piggyback is infusing at a rate less than 100 mL/hr, enter 25 mL into dose field and 100 mL/hr into rate field of order. For KVO fluids, enter rate of 20 mL/hr or less into rate field of order. Start: 11-18-2022 10 mL, IntraVE Nous, EVERY 12 HOURS SCHEDULED (2 times per day), First dose on Thu11/18/22 at 2330, Until Discontinued Start: 11-18-2022 take 10 mL intraveno usly once as needed 10 mL, IntraVENous, PRN, Starting on Thu11/18/22 at 2306, Until Discontinued, Line Care, After every IV line use Start: 11-18-2022 End: 11-18-2022 0.9 % sodium chloride bolus Start: 10-07-2022 End: 10-07-2022 0.9 % sodium chloride bolus Start: 10-06-2022 End: 10-08-2022 take 1 dose intravenously twice daily 5-40 mL, IntraVENous, EVERY 12 HOURS SCHEDULED (2 times per day), First dose on Thu10/06/22 at 2100, Until Discontinued For Line Patency: Peripheral IV = 5 mL; Midline or Central Line = 10 mL/lumen. If following IV push medication, administer flush at same rate as the IV push. Flush volume is determined by type of infusion therapy being given. For non-viscous solutions use: Peripheral IV = 5 mL Midline or Central Line = 10 mL/lumen For viscous solutions (i.e. blood components, parenteral nutrition, contrast media, or after obtaining blood sample) use: Peripheral IV = 10 mL Midline or Central Line = 20 mL/lumen Start: 10-06-2022 take 5-40 mL intrave nously once as needed 5-40 mL, IntraVENous, PRN, Starting on Thu10/06/22 at 1836, Until Discontinued, Line Care, After every IV line use For Line Patency: Peripheral IV = 5 mL; Midline or Central Line = 10 mL/lumen. If following IV push medication, administer flush at same rate as the IV push. Flush volume is determined by type of infusion therapy being given. For non-viscous solutions use: Peripheral IV = 5 mL Midline or Central Line = 10 mL/lumen For viscous solutions (i.e. blood components, parenteral nutrition, contrast media, or after obtaining blood sample) use: Peripheral IV = 10 mL Midline or Central Line = 20 mL/lumen Start: 10-05-2022 End: 10-07-2022 0.9 % sodium chloride infusi on Start: 10-03-2022 End: 10-03-2022 0.9 % sodium chloride bolus Start: 09-07-2022 take 1 dose intraven ously twice daily 5-40 mL, IntraVENous, EVERY 12 HOURS SCHEDULED (2 times per day), First dose on 09/07/22 at 0900, Until Discontinued For Line Patency: Peripheral IV = 5 mL; Midline or Central Line = 10 mL/lumen. If following IV push medication, administer flush at same rate as the IV push. Flush volume is determined by type of infusion therapy being given. For non-viscous solutions use: Peripheral IV = 5 mL Midline or Central Line = 10 mL/lumen For viscous solutions (i.e. blood components, parenteral nutrition, contrast media, or after obtaining blood sample) use: Peripheral IV = 10 mL Midline or Central Line = 20 mL/lumen Start: 09-07-2022 End: 2022 IntraVENous, at 75 mL/hr, CONTINUOUS, Starting on [place] 09/07/22 at 0130 Start: 09-07-2022 IntraVENous, a t 5-250 mL/hr, PRN, if patient receiving piggyback infusions and maintenance fluids are not ordered OR KVO fluids to protect IV site / prevent frequent line interruptions/ long duration, Starting on 09/07/22 at 0113 For piggyback infusion, administer at same rate as piggyback for a total of 25 mL. Enter 25 mL into dose field and piggyback rate into rate field of order. If piggyback is infusing at a rate less than 100 mL/hr, enter 25 mL into dose field and 100 mL/hr into rate field of order. For KVO fluids, enter rate of 20 mL/hr or less into rate field of order. Start: 09-07-2022 take 10 mL intraveno usly once as needed 10 mL, IntraVENous, PRN, Starting on 09/07/22 at 0113, Until Discontinued, Line Care, After every IV line use Start: 09-06-2022 End: 09-06-2022 1,000 mL (12.4 mL/kg), IntraVENous, at 495.9 mL/hr, Administer over 121 Minutes, ONCE, On 09/06/22 at 2230, For 1 dose For adult patients weighing > 55 kg (120 lbs.) and less than <50 years of age initiate 0.9NS at 500 mL/ hr. All bolus orders are to be given over 10 to 15 minutes Start: 09-06-2022 End: 09-06-2022 0.9 % sodium chloride bolus Start: 03-18-2022 sodium chlorid e flush 0.9 % injection 5-40 mL Start: 03-18-2022 0.9 % sodium c hloride infusion Start: 03-18-2022 sodium chlorid e flush 0.9 % injection 5-40 mL Start: 11-26-2021 sodium chlorid e flush 0.9 % injection 5-40 mL Start: 11-26-2021 0.9 % sodium c hloride infusion Start: 11-26-2021 sodium chlorid e flush 0.9 % injection 5-40 mL Start: 02-08-2021 sodium chlorid e flush 0.9 % injection 5-40 mL Start: 02-08-2021 End: 02-10-2021 0.9 % sodium chloride infusi on Start: 02-07-2021 End: 02-07-2021 0.9 % sodium chloride bolus Start: 04-30-2020 End: 04-30-2020 0.9 % sodium chloride bolus Start: 11-24-2019 10 mL, Intrave nous, EVERY 12 HOURS SCHEDULED (2 times per day), First dose on [place] 11/24/19 at 0900 Start: 11-24-2019 take 10 mL intraveno us route once as needed 10 mL, Intravenous, PRN, Line Care, After every IV line use, Starting [place] 11/24/19 at 0256 Start: 10-06-2019 End: 10-07-2019 sodium chloride flush 0.9 % injection 10 mL Start: 10-06-2019 End: 10-06-2019 0.9 % sodium chloride infusi on Start: 09-28-2019 End: 09-29-2019 sodium chloride flush 0.9 % injection 10 mL Start: 09-28-2019 End: 09-28-2019 0.9 % sodium chloride infusi on 24 hr divalproex sodium 250 mg extended release oral tablet (20 sources) Mood Stabilizer, Anti-epileptic Agent Start: 10-05-2022 End: 10-10-2022 take 250 mg by mouth three times daily 250 mg, Oral, 3 times daily, First dose on 10/05/22 at 1500, Until Discontinued Do not crush or break. Start: 09-07-2022 take 750 mg by mouth once leno y 750 mg, Oral, DAILY, First dose on 09/07/22 at 0900, Until Discontinued Do not crush or break. Start: 03-10-2022 divalproex (DE PAKOTE ER) 250 MG extended release tablet TAKE 3 TABLETS NIGHTLY 270 tablet 0 03/10/2022 Active Start: 12-19-2021 divalproex (DE PAKOTE ER) 250 MG extended release tablet TAKE 3 TABLETS NIGHTLY 270 tablet 0 12/19/2021 Active Start: 04-15-2021 divalproex (DE PAKOTE ER) 250 MG extended release tablet TAKE 3 TABLETS NIGHTLY 270 tablet 0 04/15/2021 Suspended Start: 01-30-2021 take 3 tablets by mo uth once daily divalproex (DEPAKOTE ER) 250 MG extended release tablet Take 3 tablets by mouth nightly 270 tablet 0 01/30/2021 Active Start: 06-18-2020 take 3 tablets by mo uth once daily divalproex (DEPAKOTE ER) 250 MG extended release tablet Take 3 tablets by mouth nightly 270 tablet 0 06/18/2020 Active Start: 06-23-2019 take 3 tablets by mo uth once daily divalproex (DEPAKOTE ER) 250 MG extended release tablet Take 3 tablets by mouth nightly 270 tablet 1 06/23/2019 Active take 1 tablet by chilo th at bedtime divalproex (DEPAKOTE ER) 500 MG extended release tablet Take 1 tablet by mouth at bedtime 0 Active vancomycin (VANCOCIN) 1,500 mg in dextrose 5 % 500 mL IVPB (1 source) Start: 09-06-2022 End: 09-07-2022 vancomycin (VANCOCIN) 1,500 mg in dextrose 5 % 500 mL IVPB Problems Active Problems Problem Classification Problem Date Documented Da te Episodic/Chronic Alcohol-related disorders (1 source) Alcoholic cirrhosis of liver without ascites; Translations: [Alcoholic cirrhosis of liver without ascites] Onset: 3 Chronic Calculus of urinary tract (2 sources) Kidney stone; Translations: [Calculus of kidney] Episodic Chronic kidney disease (20 sources) Chronic kidney disease stage 3; Translations: [Stage 3 chronic kidney disease] Onset: 9 06-03-2019 Chronic Chronic kidney disease (4 sources) Chronic kidney disease; Translations: [Chronic kidney disease, stage 3 unspecified] Onset: 3 Chronic obstructive pulmonary disease and bronchiectasis (20 sources) Chronic obstructive lung disease; Translations: [Chronic obstructive pulmonary disease, unspecified] Onset: 1 07-04-2021 Chronic Deficiency and other anemia (1 source) Iron deficiency anemia, unspecified; Translations: [Iron deficiency anemia, unspecified] Onset: 4 Episodic Diabetes mellitus with complications (2 sources) Type 2 diabetes mellitus; Translations: [Type 2 diabetes mellitus with other specified complication] Chronic Diabetes mellitus without complication (20 sources) Insulin treated type 2 diabetes mellitus; Translations: [Diabetes mellitus] Onset: 9 Resolved: 1 06-03-2019 Chronic Disorders of lipid metabolism (20 sources) Dyslipidemia; Translations: [Hyperlipidemia, unspecified] Onset: 1 12-13-2020 Chronic Esophageal disorders (20 sources) Gastroesophageal reflux disease; Translations: [Gastro-esophageal reflux disease without esophagitis] Onset: 1 12-13-2020 Chronic Essential hypertension (20 sources) Essential hypertension; Translations: [Essential (primary) hypertension] Onset: 9 06-03-2019 Chronic External cause codes: Fall (15 sources) Fall in home; Translations: [Fall] Onset: 0 11-24-2019 Fluid and electrolyte disorders (1 source) Dehydration; Translations: [Dehydration] Episodic Genitourinary symptoms and ill-defined conditions (20 sources) Mixed urinary incontinence; Translations: [Incontinence] Onset: 0 12-13-2019 Chronic Immunizations and screening for infectious disease (1 source) Encounter for immunization; Translations: [Encounter For Immunization] Onset: 1 Episodic Mood disorders (20 sources) Bipolar disorder, most recent episode depression; Translations: [Bipolar disorder, unspecified] Onset: 9 06-03-2019 Chronic Mood disorders (17 sources) Bipolar disorder, most recent episode depression; Translations: [Bipolar disorder with depression] Onset: 9 06-03-2019 Nonspecific chest pain (1 source) Chest pain; Translations: [Chest pain, unspecified] Episodic Osteoarthritis (1 source) 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, unspecified hand; Translations: [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, unspecified hand] Onset: 4 Chronic Other connective tissue disease (1 source) Falls; Translations: [Repeated falls] Episodic Other connective tissue disease (1 source) Ganglion, right ankle and foot; Translations: [Ganglion, right ankle and foot] Onset: 4 Episodic Other fractures (1 source) Closed fracture of fourth cervical vertebra; Translations: [Closed nondisplaced fracture of fourth cervical vertebra, unspecified fracture morphology, initial encounter ([facility])] Episodic Other gastrointestinal disorders (2 sources) Personal history of other diseases of the digestive system; Translations: [Personal history of other diseases of the digestive system] Onset: 4 Episodic Other hematologic conditions (6 sources) Chronic congestive splenomegaly; Translations: [Chronic congestive splenomegaly] Onset: 3 Chronic Other hematologic conditions (1 source) 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; Translations: [Secondary polycythemia] Episodic Other liver diseases (4 sources) Non-alcoholic fatty liver; Translations: [Fatty (change of) liver, not elsewhere classified] Onset: 3 Chronic Other liver diseases (20 sources) Cirrhosis of liver; Translations: [Unspecified cirrhosis of liver] Onset: 1 03-29-2021 Chronic Other liver diseases (1 source) Steatosis of liver; Translations: [Fatty (change of) liver, not elsewhere classified] Chronic Other liver diseases (16 sources) Fatty (change of) liver, not elsewhere classified; Translations: [Other chronic nonalcoholic liver disease] Onset: 3 10-13-2022 Chronic Other liver diseases (6 sources) Biliary cirrhosis; Translations: [Biliary cirrhosis, unspecified] Onset: 3 Chronic Other liver diseases (1 source) Unspecified cirrhosis of liver; Translations: [Unspecified cirrhosis of liver] Onset: 3 Chronic Other lower respiratory disease (2 sources) Dyspnea on exertion; Translations: [Dyspnea, unspecified] Episodic Other lower respiratory disease (1 source) Rib pain; Translations: [Pleurodynia] Episodic Other lower respiratory disease (1 source) Hypoxemia; Translations: [Hypoxemia] Onset: 4 Episodic Other nervous system disorders (1 source) Disorder of brain; Translations: [Encephalopathy, unspecified] Chronic Other nervous system disorders (1 source) Encephalopathy, unspecified; Translations: [Encephalopathy, unspecified] Onset: 3 Chronic Other nervous system disorders (3 sources) Other chronic pain; Translations: [Other chronic pain] Onset: 2 Chronic Other nervous system disorders (1 source) Other symptoms and signs involving cognitive functions and awareness; Translations: [Other signs and symptoms involving cognition] Episodic Other nutritional; endocrine; and metabolic disorders (20 sources) Body mass index 30+ - obesity; Translations: [Obesity, unspecified] Onset: 9 07-13-2019 Chronic Other nutritional; endocrine; and metabolic disorders (1 source) Hyperammonemia; Translations: [Disorder of urea cycle metabolism, unspecified] Chronic Other nutritional; endocrine; and metabolic disorders (6 sources) Hypomagnesemia; Translations: [Hypomagnesemia] Onset: 3 Chronic Other nutritional; endocrine; and metabolic disorders (3 sources) Hypomagnesemia; Translations: [Hypomagnesemia] Onset: 3 Chronic Other nutritional; endocrine; and metabolic disorders (1 source) Disorder of urea cycle metabolism, unspecified; Translations: [Disorder of urea cycle metabolism, unspecified] Onset: 3 Chronic Other nutritional; endocrine; and metabolic disorders (1 source) Hyperuricemia; Translations: [Hyperuricemia without signs of inflammatory arthritis and tophaceous disease] Episodic Pneumonia (except that caused by tuberculosis or sexually transmitted disease) (1 source) Pneumonia, unspecified organism; Translations: [Pneumonia, unspecified organism] Onset: 4 Episodic Residual codes; unclassified (2 sources) Obstructive sleep apnea syndrome; Translations: [Obstructive sleep apnea (adult) (pediatric)] Chronic Residual codes; unclassified (1 source) Sleep apnea, unspecified; Translations: [Sleep apnea, unspecified] Onset: 4 Chronic Residual codes; unclassified (1 source) Postmenopausal state; Translations: [Postmenopausal] Episodic Residual codes; unclassified (1 source) Transient altered mental status; Translations: [Disorientation, unspecified] Episodic Residual codes; unclassified (1 source) Clouded consciousness Onset: 4 Episodic Screening and history of mental health and substance abuse codes (1 source) Tobacco use and exposure - finding; Translations: [Personal history of tobacco use] Chronic Screening and history of mental health and substance abuse codes (1 source) H/O: drug dependency; Translations: [Personal history of nicotine dependence] Episodic Spondylosis; intervertebral disc disorders; other back problems (6 sources) Cervical spondylosis; Translations: [Spondylosis without myelopathy or radiculopathy, cervical region] Onset: 3 Chronic Superficial injury; contusion (2 sources) Contusion of hip; Translations: [Contusion of left hip, initial encounter] Episodic Unclassified (1 source) EMS Onset: 4 Unclassified (1 source) Ankle Swelling Onset: 4 Unclassified (2 sources) Low back pain, unspecified; Translations: [Low back pain, unspecified] Onset: 2 Unclassified (2 sources) Abnormal Lab; Translations: [Abnormal Lab] Onset: 3 Past or Other Problems Problem Classification Problem Date Documented Da te Episodic/Chronic Acute and unspecified renal failure (20 sources) Acute injury of kidney; Translations: [Acute kidney failure, unspecified] Onset: 3 Resolved: 3 Episodic Allergic reactions (12 sources) Allergy to drug; Translations: [Allergy status to other antibiotic agents status] Onset: 3 Episodic Bacterial infection; unspecified site (4 sources) Unspecified Escherichia coli [E. coli] as the cause of diseases classified elsewhere; Translations: [Unspecified Escherichia coli (E. coli) as the cause of diseases classified elsewhere] Onset: 3 Episodic Deficiency and other anemia (20 sources) Iron deficiency anemia; Translations: [Iron deficiency anemia, unspecified] Onset: 9 07-25-2019 Episodic E Codes: Fall (20 sources) Fall in home; Translations: [Unspecified fall, initial encounter] Onset: 0 Resolved: 3 11-24-2019 Episodic Fracture of upper limb (20 sources) Closed fracture of surgical neck of humerus; Translations: [2-part displaced fracture of surgical neck of right humerus, initial encounter for closed fracture] Onset: 0 Resolved: 1 04-28-2020 Episodic Genitourinary symptoms and ill-defined conditions (20 sources) Increased frequency of urination; Translations: [Nocturia] Onset: 0 12-13-2019 Episodic Joint disorders and dislocations; trauma-related (1 source) Subluxation of C1/C2 cervical vertebrae, initial encounter; Translations: [Subluxation of C1/c2 cervical vertebrae, initial encounter] Onset: 3 Episodic Malaise and fatigue (2 sources) Asthenia; Translations: [Weakness] Onset: 3 Episodic Noninfectious gastroenteritis (20 sources) Chronic diarrhea; Translations: [Noninfective gastroenteritis and colitis, unspecified] Onset: 9 Resolved: 0 07-13-2019 Episodic Nutritional deficiencies (20 sources) Malnutrition (calorie); Translations: [Moderate protein-calorie malnutrition] Onset: 2 Resolved: 3 08-09-2022 Chronic Other aftercare (1 source) Encounter for follow-up examination after completed treatment for conditions other than malignant neoplasm; Translations: [Encounter for follow-up examination after completed treatment for conditions other than malignant neoplasm] Onset: 3 Episodic Other fractures (20 sources) Closed fracture cervical vertebra, spinous process; Translations: [Fracture of neck, unspecified, initial encounter] Onset: 0 Resolved: 1 11-24-2019 Episodic Other fractures (19 sources) Compression fracture of lumbar spine; Translations: [Wedge compression fracture of third lumbar vertebra, initial encounter for closed fracture] Onset: 3 Episodic Other fractures (3 sources) Closed fracture of multiple ribs; Translations: [Multiple fractures of ribs, left side, subsequent encounter for fracture with routine healing] Onset: 3 Resolved: 3 07-11-2023 Episodic Other fractures (1 source) Multiple fractures of ribs, left side, subsequent encounter for fracture with routine healing; Translations: [Multiple fractures of ribs, left side, subsequent encounter for fracture with routine healing] Onset: 3 Episodic Other gastrointestinal disorders (20 sources) Intestinal malabsorption; Translations: [Intestinal malabsorption, unspecified] Onset: 0 Resolved: 1 09-22-2019 Chronic Other gastrointestinal disorders (20 sources) H/O: gastrointestinal disease; Translations: [Personal history of other endocrine, nutritional and metabolic disease] Onset: 9 Resolved: 1 07-13-2019 Episodic Other gastrointestinal disorders (20 sources) Occult blood in stools; Translations: [Other fecal abnormalities] Onset: 0 02-04-2020 Episodic Other hematologic conditions (20 sources) H/O: anemia; Translations: [Personal history of diseases of the blood and blood-forming organs and certain disorders involving the immune mechanism] Onset: 9 Resolved: 0 06-03-2019 Episodic Other injuries and conditions due to external causes (20 sources) Injury of head; Translations: [Unspecified injury of head, initial encounter] Onset: 0 Resolved: 1 04-28-2020 Episodic Other liver diseases (20 sources) Hepatic encephalopathy; Translations: [Hepatic encephalopathy] Onset: 3 Episodic Other lower respiratory disease (1 source) Pleurodynia; Translations: [Pleurodynia] Onset: 3 Episodic Other nervous system disorders (20 sources) Toxic metabolic encephalopathy; Translations: [Toxic encephalopathy] Onset: 1 Resolved: 1 Episodic Other nutritional; endocrine; and metabolic disorders (20 sources) Morbid obesity; Translations: [Morbid (severe) obesity due to excess calories] Onset: 0 Resolved: 1 04-17-2020 Chronic Other nutritional; endocrine; and metabolic disorders (1 source) Hyperuricemia without signs of inflammatory arthritis and tophaceous disease; Translations: [Hyperuricemia without signs of inflammatory arthritis and tophaceous disease] Onset: 3 Episodic Other screening for suspected conditions (not mental disorders or infectious disease) (4 sources) Breast neoplasm screening status; Translations: [Encounter for screening mammogram for malignant neoplasm of breast] Onset: 3 Episodic Pathological fracture (14 sources) Pathological fracture of vertebra due to osteoporosis; Translations: [Other osteoporosis with current pathological fracture, vertebra(e), initial encounter for fracture] Onset: 3 11-10-2022 Episodic Residual codes; unclassified (20 sources) Chronic back pain ; Translations: [Dorsalgia, unspecified] Onset: 9 06-03-2019 Episodic Residual codes; unclassified (20 sources) Altered mental status; Translations: [Altered mental status, unspecified] Onset: 1 Resolved: 1 Episodic Residual codes; unclassified (3 sources) Altered mental status, unspecified; Translations: [Altered mental status, unspecified] Onset: 3 Episodic Residual codes; unclassified (3 sources) Disorientation, unspecified; Translations: [Disorientation, unspecified] Onset: 3 Episodic Septicemia (except in labor) (20 sources) Sepsis due to urinary tract infection; Translations: [Sepsis, unspecified organism] Onset: 2 Resolved: 3 08-08-2022 Episodic Skull and face fractures (20 sources) Closed fracture of nasal bones; Translations: [Fracture of nasal bones, initial encounter for closed fracture] Onset: 0 Resolved: 1 04-28-2020 Episodic Spondylosis; intervertebral disc disorders; other back problems (3 sources) Backache; Translations: [Dorsalgia, unspecified] Onset: 3 Episodic Sprains and strains (2 sources) Strain of back muscle; Translations: [Strain of muscle, fascia and tendon of lower back, initial encounter] Onset: 3 Episodic Unclassified (1 source) Low back pain, unspecified; Translations: [Low back pain, unspecified] Onset: 3 Urinary tract infections (20 sources) Urinary tract infectious disease; Translations: [Urinary tract infection, site not specified] Onset: 1 Resolved: 3 Episodic Results Test Name Value Interpretation Reference Range Facility Glucose Glucometer (BldC) [M ass/Vol]on 11-04-2023 Glucose [Mass/Vol] 88 mg/dL Normal 65-99 [facility] Glucose Glucometer (BldC) [M ass/Vol]on 11-03-2023 Glucose [Mass/Vol] 147 mg/dL High 65-99 [facility] Glucose [Mass/Vol] 225 mg/dL High 65-99 [facility] Glucose [Mass/Vol] 156 mg/dL High 65-99 [facility] Glucose [Mass/Vol] 131 mg/dL High 65-99 [facility] BASIC METABOLIC PANLon 11-01 Anion gap [Moles/Vol] 8 mmol/L Normal 5-15 [facility] Comment on above: Performed By: #### JENNIFER PEOPLES, ####[facility] ([id number])[address] [place] [address] 57848 Calcium [Mass/Vol] 8.8 mg/dL Normal 8.5-10.5 [facility] Comment on above: Performed By: #### JENNIFER PEOPLES, 69205-8 ####[facility] ([id number])[address] [place] [address] 10972 Chloride [Moles/Vol] 98 mmol/L Normal 98-109 [facility] Comment on above: Performed By: #### JENNIFER PEOPLES, ####[facility] ([id number])[address] [place] [address] 00256 CO2 [Moles/Vol] 27 mmol/L Normal 22-32 [facility] Comment on above: Performed By: #### JENNIFER PEOPLES, ####[facility] ([id number])[address] [place] [address] 25076 Creatinine [Mass/Vol] 1.24 mg/dL High 0.40-1.00 [facility] Comment on above: Result Comment: METH OD TRACEABLE TO IDMS STANDARD Performed By: #### C JENNIFER SALDAÑA, ####[facility] ([id number])[address] [place] [address] 48158 GFR/1.73 sq M.predicted among non-blacks MDRD (S/P/Bld) [Vol rate/Area] 47 mL/min/{1.73_m2} Low >59 [facility] Comment on above: Result Comment: Reported eGFR is based on the CKD-EPI 2020 equation that does not use a race coefficient. Performed By: #### C JENNIFER SALDAÑA, ####[facility] ([id number])[address] [place] [address] 02811 Glucose [Mass/Vol] 105 mg/dL High 65-99 [facility] Comment on above: Performed By: #### JENNIFER PEOPLES, ####[facility] ([id number])[address] [place] [address] 44396 Potassium [Moles/Vol] 4.4 mmol/L Normal 3.5-5.0 [facility] Comment on above: Performed By: #### Bernabe SALDAÑA [facility], ####[facility] ([id number])[address] [place] [address] 15557 Sodium [Moles/Vol] 133 mmol/L Low 134-146 [facility] Comment on above: Performed By: #### JENNIFER PEOPLES, ####[facility] ([id number])[address] [place] [address] 00069 Urea nitrogen [Mass/Vol] 31 mg/dL High 5-27 [facility] Comment on above: Performed By: #### JENNIFER PEOPLES, ####[facility] ([id number])[address] [place] [address] 59707 COMPLETE BLOOD COUNTon 11-01 Erythrocyte distribution width (RBC) [Ratio] 17.8 % High 11.5-15.0 [facility] Comment on above: Performed By: #### C JENNIFER SALDAÑA, ####[facility] ([id number])[address] [place] [address] 38781 Hematocrit (Bld) [Volume fraction] 28.4 % Low 35-47 [facility] Comment on above: Performed By: #### JENNIFER PEOPLES, ####[facility] ([id number])[address] [place] [address] 48533 Hemoglobin (Bld) [Mass/Vol] 9.5 g/dL Low 11.7-15.5 [facility] Comment on above: Performed By: #### JENNIFER PEOPLES, ####[facility] ([id number])[address] [place] [address] 74272 MCH (RBC) [Entitic mass] 29.7 pg Normal 27-34 [facility] Comment on above: Performed By: #### JENNIFER PEOPLES, ####[facility] ([id number])[address] [place] [address] 44262 MCHC (RBC) [Mass/Vol] 33.4 g/dL Normal 32-36 [facility] Comment on above: Performed By: #### JENNIFER PEOPLES, ####[facility] ([id number])[address] [place] [address] 17187 MCV (RBC) [Entitic vol] 89 fL Normal 80-100 [facility] Comment on above: Performed By: #### JENNIFER PEOPLES, ####[facility] ([id number])[address] [place] [address] 41575 Platelet mean volume (Bld) [Entitic vol] 7.8 fL Normal 7-12 [facility] Comment on above: Performed By: #### C JENNIFER SALDAÑA, ####[facility] ([id number])[address] [place] [address] 50566 Platelets (Bld) [#/Vol] 116 10*3/uL Low 150-450 [facility] Comment on above: Performed By: #### JENNIFER PEOPLES, 97420-0 ####[facility] ([id number])[address] [place] [address] 50418 RBC COUNT 3.20 X10E12/L Low 3.80-5.20 [facility] Comment on above: Performed By: #### Bernabe SALDAÑA [facility], ####[facility] ([id number])[address] [place] [address] 18563 WBC (Bld) [#/Vol] 4.2 10*3/uL Normal 4.0-11.0 [facility] Comment on above: Performed By: #### Bernabe SALDAÑA [facility], ####[facility] ([id number])[address] [place] [address] 99747 Glucose Glucometer (BldC) [M ass/Vol]on 11-02-2023 Glucose [Mass/Vol] 227 mg/dL High 65-99 [facility] Glucose [Mass/Vol] 181 mg/dL High 65-99 [facility] Glucose [Mass/Vol] 128 mg/dL High 65-99 [facility] Glucose [Mass/Vol] 92 mg/dL Normal 65-99 [facility] MAGNESIUMon 11-02-2023 Magnesium [Mass/Vol] 1.8 mg/dL Normal 1.8-2.6 [facility] Comment on above: Performed By: #### JENNIFER PEOPLES, ####[facility] ([id number])[address] [place] [address] 66005 Glucose Glucometer (BldC) [M ass/Vol]on 11-01-2023 Glucose [Mass/Vol] 178 mg/dL High 65-99 [facility] Glucose [Mass/Vol] 245 mg/dL High 65-99 [facility] Glucose [Mass/Vol] 265 mg/dL High 65-99 [facility] Glucose [Mass/Vol] 141 mg/dL High 65-99 [facility] Glucose Glucometer (BldC) [M ass/Vol]on 10-31-2023 Glucose [Mass/Vol] 91 mg/dL Normal 65-99 [facility] Glucose [Mass/Vol] 99 mg/dL Normal 65-99 [facility] Glucose [Mass/Vol] 203 mg/dL High 65-99 [facility] Glucose Glucometer (BldC) [M ass/Vol]on 10-30-2023 Glucose [Mass/Vol] 132 mg/dL High 65-99 [facility] Glucose [Mass/Vol] 215 mg/dL High 65-99 [facility] Glucose [Mass/Vol] 185 mg/dL High 65-99 [facility] Glucose [Mass/Vol] 102 mg/dL High 65-99 [facility] CBC AND AUTO DIFFon 10-29-19 24 ABSOLUTE BASOPHIL 0.0 X10E9/L Normal 0.0-0.2 [facility] Comment on above: Performed By: #### C DEMETRIS, 51143-8, [facility], 4086-5, 3040-3, 05999-7 #### [facility] ([id number]) [address] [place] [address] 65783 ABSOLUTE NEUTROPHIL 2.0 X10E9/L Normal 1.5-6.6 [facility] Comment on above: Performed By: #### C DEMETRIS, 42733-9, [facility], 4086-5, 3040-3, 73739-2 #### [facility] ([id number]) [address] [place] [address] 15237 Basophils/100 WBC (Bld) 0.3 % Normal [facility] Comment on above: Performed By: #### C BCA, 74863-9, CMP, 4086-5, 3040-3, 69675-3 #### [facility] ([id number]) [address] [place] [address] 40073 Eosinophils (Bld) [#/Vol] 0.0 10*3/uL Normal 0.0-0.4 [facility] Comment on above: Performed By: #### C BCA, 90006-4, CMP, 4086-5, 3040-3, 34602-1 #### [facility] ([id number]) [address] [place] [address] 65229 Eosinophils/100 WBC (Bld) 1.4 % Normal [facility] Comment on above: Performed By: #### C BCA, 76656-9, CMP, 4086-5, 3040-3, 96037-1 #### [facility] ([id number]) [address] [place] [address] 96378 Erythrocyte distribution width (RBC) [Ratio] 17.3 % High 11.5-15.0 [facility] Comment on above: Performed By: #### C BCA, 01861-5, CMP, 4086-5, 3040-3, 03145-3 #### [facility] ([id number]) [address] [place] [address] 56978 Hematocrit (Bld) [Volume fraction] 33.0 % Low 35-47 [facility] Comment on above: Performed By: #### C BCA, 65755-3, CMP, 4086-5, 3040-3, 64900-6 #### [facility] ([id number]) [address] [place] [address] 00513 Hemoglobin (Bld) [Mass/Vol] 10.9 g/dL Low 11.7-15.5 [facility] Comment on above: Performed By: #### C BCA, 48798-8, CMP, 4086-5, 3040-3, 20184-3 #### [facility] ([id number]) [address] [place] [address] 71547 Lymphocytes (Bld) [#/Vol] 1.1 10*3/uL Normal 1.0-3.5 [facility] Comment on above: Performed By: #### C BCA, 78842-9, CMP, 4086-5, 3040-3, 16578-3 #### [facility] ([id number]) [address] [place] [address] 13575 Lymphocytes/100 WBC (Bld) 30.4 % Normal [facility] Comment on above: Performed By: #### C BCA, 93683-5, CMP, 4086-5, 3040-3, 34065-2 #### [facility] ([id number]) [address] [place] [address] 32363 MCH (RBC) [Entitic mass] 29.5 pg Normal 27-34 [facility] Comment on above: Performed By: #### C BCA, 18812-0, CMP, 4086-5, 3040-3, 75382-9 #### [facility] ([id number]) [address] [place] [address] 77428 MCHC (RBC) [Mass/Vol] 33.0 g/dL Normal 32-36 [facility] Comment on above: Performed By: #### C BCA, 85313-0, CMP, 4086-5, 3040-3, 51302-0 #### [facility] ([id number]) [address] [place] [address] 44993 MCV (RBC) [Entitic vol] 90 fL Normal 80-100 [facility] Comment on above: Performed By: #### C BCA, 91576-7, CMP, 4086-5, 3040-3, 67611-8 #### [facility] ([id number]) [address] [place] [address] 92203 Monocytes (Bld) [#/Vol] 0.4 10*3/uL Normal 0-0.9 [facility] Comment on above: Performed By: #### C BCA, 56447-9, CMP, 4086-5, 3040-3, 28831-2 #### [facility] ([id number]) [address] [place] [address] 17121 Monocytes/100 WBC (Bld) 10.4 % Normal [facility] Comment on above: Performed By: #### Bernabe BCA, 08919-5, CMP, 4086-5, 3040-3, 21313-8 #### [facility] ([id number]) [address] [place] [address] 72990 Neutrophils/100 WBC (Bld) 57.5 % Normal [facility] Comment on above: Performed By: #### Bernabe WILLSON, 44903-4, CMP, 4086-5, 3040-3, 85218-4 #### [facility] ([id number]) [address] [place] [address] 69354 Platelet mean volume (Bld) [Entitic vol] 7.3 fL Normal 7-12 [facility] Comment on above: Performed By: #### Bernabe WILLSON, 25351-6, CMP, 4086-5, 3040-3, 55237-1 #### [facility] ([id number]) [address] [place] [address] 95457 Platelets (Bld) [#/Vol] 88 10*3/uL Low 150-450 [facility] Comment on above: Performed By: #### Bernabe BCA, 39241-3, CMP, 4086-5, 3040-3, 13279-5 #### [facility] ([id number]) [address] [place] [address] 60266 RBC COUNT 3.69 X10E12/L Low 3.80-5.20 [facility] Comment on above: Performed By: #### C BCA, 07787-7, CMP, 4086-5, 3040-3, 77572-9 #### [facility] ([id number]) [address] [place] [address] 13039 WBC (Bld) [#/Vol] 3.5 10*3/uL Low 4.0-11.0 [facility] Comment on above: Performed By: #### C BCA, 78009-8, CMP, 4086-5, 3040-3, 08386-9 #### [facility] ([id number]) [address] [place] [address] 43390 COMPREHENSIVE METABOLIC PANE Roger 10-29-2023 Albumin [Mass/Vol] 2.9 g/dL Low 3.2-5.3 [facility] Comment on above: Performed By: #### C BCA, 84102-5, CMP, 4086-5, 3040-3, 74187-9 #### [facility] ([id number]) [address] [place] [address] 11504 ALP [Catalytic activity/Vol] 158 U/L High 39-130 [facility] Comment on above: Performed By: #### C BCA, 98293-2, CMP, 4086-5, 3040-3, 58845-6 #### [facility] ([id number]) [address] [place] [address] 06963 ALT [Catalytic activity/Vol] 13 U/L Normal 0-31 [facility] Comment on above: Performed By: #### C BCA, 75938-8, CMP, 4086-5, 3040-3, 82210-4 #### [facility] ([id number]) [address] [place] [address] 89574 Anion gap [Moles/Vol] 7 mmol/L Normal 5-15 [facility] Comment on above: Performed By: #### C BCA, 57497-1, CMP, 4086-5, 3040-3, 27227-0 #### [facility] ([id number]) [address] [place] [address] 21331 AST [Catalytic activity/Vol] 31 U/L Normal 0-41 [facility] Comment on above: Performed By: #### C BCA, 95856-1, CMP, 4086-5, 3040-3, 32638-4 #### [facility] ([id number]) [address] [place] [address] 68577 Bilirubin [Mass/Vol] 0.7 mg/dL Normal 0.3-1.2 [facility] Comment on above: Performed By: #### C BCA, 42123-8, CMP, 4086-5, 3040-3, 04334-1 #### [facility] ([id number]) [address] [place] [address] 55576 Calcium [Mass/Vol] 9.0 mg/dL Normal 8.5-10.5 [facility] Comment on above: Performed By: #### C BCA, 63021-4, CMP, 4086-5, 3040-3, 72729-0 #### [facility] ([id number]) [address] [place] [address] 93090 Chloride [Moles/Vol] 102 mmol/L Normal 98-109 [facility] Comment on above: Performed By: #### C BCA, 15294-3, CMP, 4086-5, 3040-3, 85572-2 #### [facility] ([id number]) [address] [place] [address] 56466 CO2 [Moles/Vol] 25 mmol/L Normal 22-32 [facility] Comment on above: Performed By: #### C BCA, 94568-5, CMP, 4086-5, 3040-3, 10733-2 #### [facility] ([id number]) [address] [place] [address] 73396 Creatinine [Mass/Vol] 0.99 mg/dL Normal 0.40-1.00 [facility] Comment on above: Result Comment: METH OD TRACEABLE TO IDMS STANDARD Performed By: #### C BCA, 52869-4, CMP, 4086-5, 3040-3, 29425-2 #### [facility] ([id number]) [address] [place] [address] 88926 GFR/1.73 sq M.predicted among non-blacks MDRD (S/P/Bld) [Vol rate/Area] 62 mL/min/{1.73_m2} Normal >59 [facility] Comment on above: Result Comment: Reported eGFR is based on the CKD-EPI 2020 equation that does not use a race coefficient. Performed By: #### C BCA, 51335-0, CMP, 4086-5, 3040-3, 71727-3 #### [facility] ([id number]) [address] [place] [address] 72172 Glucose [Mass/Vol] 79 mg/dL Normal 65-99 [facility] Comment on above: Performed By: #### C BCA, 27788-0, CMP, 4086-5, 3040-3, 55929-7 #### [facility] ([id number]) [address] [place] [address] 45661 Potassium [Moles/Vol] 4.4 mmol/L Normal 3.5-5.0 [facility] Comment on above: Performed By: #### C BCA, 52494-1, CMP, 4086-5, 3040-3, 81713-2 #### [facility] ([id number]) [address] [place] [address] 47810 Protein [Mass/Vol] 6.9 g/dL Normal 6.0-8.0 [facility] Comment on above: Performed By: #### C BCA, 17509-8, CMP, 4086-5, 3040-3, 38646-3 #### [facility] ([id number]) [address] [place] [address] 66237 Sodium [Moles/Vol] 134 mmol/L Normal 134-146 [facility] Comment on above: Performed By: #### C BCA, 42482-6, CMP, 4086-5, 3040-3, 41392-1 #### [facility] ([id number]) [address] [place] [address] 39959 Urea nitrogen [Mass/Vol] 18 mg/dL Normal 5-27 [facility] Comment on above: Performed By: #### C BCA, 59522-3, CMP, 4086-5, 3040-3, 67063-4 #### [facility] ([id number]) [address] [place] [address] 46401 Glucose Glucometer (BldC) [M ass/Vol]on 10-29-2023 Glucose [Mass/Vol] 109 mg/dL High 65-99 [facility] Glucose [Mass/Vol] 83 mg/dL Normal 65-99 [facility] Glucose [Mass/Vol] 132 mg/dL High 65-99 [facility] MAGNESIUMon 10-29-2023 Magnesium [Mass/Vol] 1.9 mg/dL Normal 1.8-2.6 [facility] Comment on above: Performed By: #### C BCA, 51042-4, CMP, 4086-5, 3040-3, 23606-1 #### [facility] ([id number]) [address] [place] [address] 29715 AMMONIAon 10-28-2023 Ammonia (P) [Moles/Vol] 22 umol/L Normal 11-35 [facility] Comment on above: Performed By: #### C BCA, 22028-9, CMP, 4086-5, 3040-3, 36402-1 #### [facility] ([id number]) [address] [place] [address] 63498 CBC AND AUTO DIFFon 10-28-19 24 ABSOLUTE BASOPHIL 0.1 X10E9/L Normal 0.0-0.2 [facility] Comment on above: Performed By: #### C BCA, 72788-1, CMP, 4086-5, 3040-3, 03353-0 #### [facility] ([id number]) [address] [place] [address] 29308 Basophils/100 WBC (Bld) 3.0 % Normal [facility] Comment on above: Performed By: #### C BCA, 38540-3, CMP, 4086-5, 3040-3, 99649-6 #### [facility] ([id number]) [address] [place] [address] 28014 Eosinophils (Bld) [#/Vol] 0.0 10*3/uL Normal 0.0-0.4 [facility] Comment on above: Performed By: #### C BCA, 73076-5, CMP, 4086-5, 3040-3, 69227-8 #### [facility] ([id number]) [address] [place] [address] 17052 Eosinophils/100 WBC (Bld) 1.0 % Normal [facility] Comment on above: Performed By: #### Bernabe BCA, 96882-9, CMP, 4086-5, 3040-3, 17226-6 #### [facility] ([id number]) [address] [place] [address] 09933 Erythrocyte distribution width (RBC) [Ratio] 17.8 % High 11.5-15.0 [facility] Comment on above: Performed By: #### C BCA, 44489-0, CMP, 4086-5, 3040-3, 36272-3 #### [facility] ([id number]) [address] [place] [address] 40797 Hematocrit (Bld) [Volume fraction] 30.8 % Low 35-47 [facility] Comment on above: Performed By: #### C BCA, 39054-1, CMP, 4086-5, 3040-3, 49138-1 #### [facility] ([id number]) [address] [place] [address] 45970 Hemoglobin (Bld) [Mass/Vol] 10.2 g/dL Low 11.7-15.5 [facility] Comment on above: Performed By: #### C BCA, 11929-7, CMP, 4086-5, 3040-3, 80084-8 #### [facility] ([id number]) [address] [place] [address] 54139 Lymphocytes (Bld) [#/Vol] 1.2 10*3/uL Normal 1.0-3.5 [facility] Comment on above: Performed By: #### C BCA, 56589-4, CMP, 4086-5, 3040-3, 38961-6 #### [facility] ([id number]) [address] [place] [address] 21798 Lymphocytes/100 WBC (Bld) 46.0 % Normal [facility] Comment on above: Performed By: #### C BCA, 36623-1, CMP, 4086-5, 3040-3, 77248-8 #### [facility] ([id number]) [address] [place] [address] 32061 MCH (RBC) [Entitic mass] 29.6 pg Normal 27-34 [facility] Comment on above: Performed By: #### C BCA, 45023-1, CMP, 4086-5, 3040-3, 22830-2 #### [facility] ([id number]) [address] [place] [address] 75109 MCHC (RBC) [Mass/Vol] 33.0 g/dL Normal 32-36 [facility] Comment on above: Performed By: #### C BCA, 12245-3, CMP, 4086-5, 3040-3, 18706-7 #### [facility] ([id number]) [address] [place] [address] 58116 MCV (RBC) [Entitic vol] 90 fL Normal 80-100 [facility] Comment on above: Performed By: #### C BCA, 29799-0, CMP, 4086-5, 3040-3, 92051-3 #### [facility] ([id number]) [address] [place] [address] 53514 Monocytes (Bld) [#/Vol] 0.1 10*3/uL Normal 0-0.9 [facility] Comment on above: Performed By: #### C BCA, 24318-2, CMP, 4086-5, 3040-3, 69142-0 #### [facility] ([id number]) [address] [place] [address] 63201 Monocytes/100 WBC (Bld) 4.0 % Normal [facility] Comment on above: Performed By: #### Bernabe BCA, 66160-6, CMP, 4086-5, 3040-3, 63769-9 #### [facility] ([id number]) [address] [place] [address] 80077 Neutrophils (Bld) [#/Vol] 1.2 10*3/uL Low 1.5-6.6 [facility] Comment on above: Performed By: #### Bernabe BCA, 30489-4, CMP, 4086-5, 3040-3, 95705-7 #### [facility] ([id number]) [address] [place] [address] 86786 OVALOCYTE 1+ Abnormal NONE [facility] Comment on above: Performed By: #### Bernabe BCA, 76057-9, CMP, 4086-5, 3040-3, 16306-7 #### [facility] ([id number]) [address] [place] [address] 73432 Platelet mean volume (Bld) [Entitic vol] 7.4 fL Normal 7-12 [facility] Comment on above: Performed By: #### C BCA, 42721-4, CMP, 4086-5, 3040-3, 71155-1 #### [facility] ([id number]) [address] [place] [address] 74783 Platelets (Bld) [#/Vol] 86 10*3/uL Low 150-450 [facility] Comment on above: Performed By: #### C BCA, 72854-9, CMP, 4086-5, 3040-3, 11592-4 #### [facility] ([id number]) [address] [place] [address] 25404 POLYCHROMASIA 1+ Abnormal NONE [facility] Comment on above: Performed By: #### Bernabe BCA, 06617-8, CMP, 4086-5, 3040-3, 15139-0 #### [facility] ([id number]) [address] [place] [address] 93031 RBC COUNT 3.44 X10E12/L Low 3.80-5.20 [facility] Comment on above: Performed By: #### Bernabe BCA, 58702-7, CMP, 4086-5, 3040-3, 03108-0 #### [facility] ([id number]) [address] [place] [address] 07973 SEG NEUTROPHIL 46.0 % Normal [facility] Comment on above: Performed By: #### C BCA, 39761-7, CMP, 4086-5, 3040-3, 29541-1 #### [facility] ([id number]) [address] [place] [address] 55629 WBC (Bld) [#/Vol] 2.6 10*3/uL Low 4.0-11.0 [facility] Comment on above: Performed By: #### C BCA, 65118-4, CMP, 4086-5, 3040-3, 60491-7 #### [facility] ([id number]) [address] [place] [address] 08549 COMPREHENSIVE METABOLIC PANE Roger 10-28-2023 Albumin [Mass/Vol] 2.7 g/dL Low 3.2-5.3 [facility] Comment on above: Performed By: #### C BCA, 25870-4, CMP, 4086-5, 3040-3, 58893-6 #### [facility] ([id number]) [address] [place] [address] 57585 ALP [Catalytic activity/Vol] 152 U/L High 39-130 [facility] Comment on above: Performed By: #### C BCA, 19763-7, CMP, 4086-5, 3040-3, 14472-8 #### [facility] ([id number]) [address] [place] [address] 62451 ALT [Catalytic activity/Vol] 10 U/L Normal 0-31 [facility] Comment on above: Performed By: #### C BCA, 64646-6, CMP, 4086-5, 3040-3, 02537-2 #### [facility] ([id number]) [address] [place] [address] 41723 Anion gap [Moles/Vol] 6 mmol/L Normal 5-15 [facility] Comment on above: Performed By: #### C BCA, 21396-5, CMP, 4086-5, 3040-3, 01042-2 #### [facility] ([id number]) [address] [place] [address] 27215 AST [Catalytic activity/Vol] 30 U/L Normal 0-41 [facility] Comment on above: Performed By: #### C BCA, 14041-4, CMP, 4086-5, 3040-3, 99139-9 #### [facility] ([id number]) [address] [place] [address] 61206 Bilirubin [Mass/Vol] 0.8 mg/dL Normal 0.3-1.2 [facility] Comment on above: Performed By: #### C BCA, 37016-6, CMP, 4086-5, 3040-3, 42361-9 #### [facility] ([id number]) [address] [place] [address] 23545 Calcium [Mass/Vol] 8.6 mg/dL Normal 8.5-10.5 [facility] Comment on above: Performed By: #### C BCA, 36497-0, CMP, 4086-5, 3040-3, 66506-4 #### [facility] ([id number]) [address] [place] [address] 70425 Chloride [Moles/Vol] 104 mmol/L Normal 98-109 [facility] Comment on above: Performed By: #### C BCA, 45231-3, CMP, 4086-5, 3040-3, 19178-9 #### [facility] ([id number]) [address] [place] [address] 65521 CO2 [Moles/Vol] 25 mmol/L Normal 22-32 [facility] Comment on above: Performed By: #### C BCA, 47010-6, CMP, 4086-5, 3040-3, 44500-4 #### [facility] ([id number]) [address] [place] [address] 61985 Creatinine [Mass/Vol] 1.19 mg/dL High 0.40-1.00 [facility] Comment on above: Result Comment: METH OD TRACEABLE TO IDMS STANDARD Performed By: #### C BCA, 85461-7, CMP, 4086-5, 3040-3, 88483-9 #### [facility] ([id number]) [address] [place] [address] 78889 GFR/1.73 sq M.predicted among non-blacks MDRD (S/P/Bld) [Vol rate/Area] 49 mL/min/{1.73_m2} Low >59 [facility] Comment on above: Result Comment: Reported eGFR is based on the CKD-EPI 2020 equation that does not use a race coefficient. Performed By: #### C BCA, 10233-0, CMP, 4086-5, 3040-3, 85583-6 #### [facility] ([id number]) [address] [place] [address] 00816 Glucose [Mass/Vol] 99 mg/dL Normal 65-99 [facility] Comment on above: Performed By: #### C BCA, 96406-3, CMP, 4086-5, 3040-3, 63403-9 #### [facility] ([id number]) [address] [place] [address] 08035 Potassium [Moles/Vol] 5.0 mmol/L Normal 3.5-5.0 [facility] Comment on above: Performed By: #### C BCA, 86963-4, CMP, 4086-5, 3040-3, 44823-9 #### [facility] ([id number]) [address] [place] [address] 33517 Protein [Mass/Vol] 6.9 g/dL Normal 6.0-8.0 [facility] Comment on above: Performed By: #### C BCA, 63569-0, CMP, 4086-5, 3040-3, 00830-9 #### [facility] ([id number]) [address] [place] [address] 69006 Sodium [Moles/Vol] 135 mmol/L Normal 134-146 [facility] Comment on above: Performed By: #### C BCA, 50774-5, CMP, 4086-5, 3040-3, 13356-9 #### [facility] ([id number]) [address] [place] [address], [place] [address] Urea nitrogen [Mass/Vol] 20 mg/dL Normal 5-27 [facility] Comment on above: Performed By: #### C BCA, 36050-3, CMP, 4086-5, 3040-3, 40367-5 #### [facility] ([id number]) [address] [place] [address] 51073 Glucose Glucometer (BldC) [M ass/Vol]on 10-28-2023 Glucose [Mass/Vol] 168 mg/dL High 65-99 [facility] Glucose [Mass/Vol] 120 mg/dL High 65-99 [facility] Glucose [Mass/Vol] 205 mg/dL High 65-99 [facility] Glucose [Mass/Vol] 127 mg/dL High 65-99 [facility] MAGNESIUMon 10-28-2023 Magnesium [Mass/Vol] 2.8 mg/dL High 1.8-2.6 [facility] Comment on above: Performed By: #### C DEMETRIS, 24826-5, CMP, 4086-5, 3040-3, 66256-0 #### [facility] ([id number]) [address] [place] [address] 72010 CBC AND AUTO DIFFon 10-27-19 24 ABSOLUTE BASOPHIL 0.0 X10E9/L Normal 0.0-0.2 [facility] Comment on above: Performed By: #### C BCA, 41820-8, CMP, 4086-5, 3040-3, 03009-9 #### [facility] ([id number]) [address] [place] [address] 07893 ABSOLUTE NEUTROPHIL 1.5 X10E9/L Normal 1.5-6.6 [facility] Comment on above: Performed By: #### C BCA, 81481-0, CMP, 4086-5, 3040-3, 10177-4 #### [facility] ([id number]) [address] [place] [address] 83223 Basophils/100 WBC (Bld) 0.3 % Normal [facility] Comment on above: Performed By: #### C DEMETRIS, 19980-2, CMP, 4086-5, 3040-3, 03112-5 #### [facility] ([id number]) [address] [place] [address] 82575 Eosinophils (Bld) [#/Vol] 0.1 10*3/uL Normal 0.0-0.4 [facility] Comment on above: Performed By: #### C DEMETRIS, 79575-1, CMP, 4086-5, 3040-3, 87448-7 #### [facility] ([id number]) [address] [place] [address] 98325 Eosinophils/100 WBC (Bld) 1.7 % Normal [facility] Comment on above: Performed By: #### Bernabe WILLSON, 92635-9, CMP, 4086-5, 3040-3, 04431-0 #### [facility] ([id number]) [address] [place] [address] 80976 Erythrocyte distribution width (RBC) [Ratio] 17.2 % High 11.5-15.0 [facility] Comment on above: Performed By: #### C DEMETRIS, 58246-8, CMP, 4086-5, 3040-3, 02372-1 #### [facility] ([id number]) [address] [place] [address] 74324 Hematocrit (Bld) [Volume fraction] 32.6 % Low 35-47 [facility] Comment on above: Performed By: #### Bernabe WILLSON, 62193-2, CMP, 4086-5, 3040-3, 77217-3 #### [facility] ([id number]) [address] [place] [address] 59523 Hemoglobin (Bld) [Mass/Vol] 10.7 g/dL Low 11.7-15.5 [facility] Comment on above: Performed By: #### C BCA, 33360-9, CMP, 4086-5, 3040-3, 69888-1 #### [facility] ([id number]) [address] [place] [address] 83777 Lymphocytes (Bld) [#/Vol] 1.6 10*3/uL Normal 1.0-3.5 [facility] Comment on above: Performed By: #### C BCA, 54047-0, CMP, 4086-5, 3040-3, 89704-7 #### [facility] ([id number]) [address] [place] [address] 63696 Lymphocytes/100 WBC (Bld) 46.5 % Normal [facility] Comment on above: Performed By: #### C BCA, 20749-8, CMP, 4086-5, 3040-3, 52877-7 #### [facility] ([id number]) [address] [place] [address] 16598 MCH (RBC) [Entitic mass] 29.2 pg Normal 27-34 [facility] Comment on above: Performed By: #### C BCA, 94749-3, CMP, 4086-5, 3040-3, 41469-0 #### [facility] ([id number]) [address] [place] [address] 87010 MCHC (RBC) [Mass/Vol] 32.8 g/dL Normal 32-36 [facility] Comment on above: Performed By: #### C BCA, 82165-7, CMP, 4086-5, 3040-3, 27647-6 #### [facility] ([id number]) [address] [place] [address] 40295 MCV (RBC) [Entitic vol] 89 fL Normal 80-100 [facility] Comment on above: Performed By: #### C BCA, 72861-6, CMP, 4086-5, 3040-3, 40494-5 #### [facility] ([id number]) [address] [place] [address] 44532 Monocytes (Bld) [#/Vol] 0.3 10*3/uL Normal 0-0.9 [facility] Comment on above: Performed By: #### C BCA, 28081-6, CMP, 4086-5, 3040-3, 31273-7 #### [facility] ([id number]) [address] [place] [address] 08850 Monocytes/100 WBC (Bld) 7.7 % Normal [facility] Comment on above: Performed By: #### Bernabe BCA, 38783-7, CMP, 4086-5, 3040-3, 41745-6 #### [facility] ([id number]) [address] [place] [address] 11160 Neutrophils/100 WBC (Bld) 43.8 % Normal [facility] Comment on above: Performed By: #### Bernabe BCA, 36714-9, CMP, 4086-5, 3040-3, 10182-4 #### [facility] ([id number]) [address] [place] [address] 55597 Platelet mean volume (Bld) [Entitic vol] 7.4 fL Normal 7-12 [facility] Comment on above: Performed By: #### Bernabe BCA, 70742-8, CMP, 4086-5, 3040-3, 89246-1 #### [facility] ([id number]) [address] [place] [address] 78370 Platelets (Bld) [#/Vol] 99 10*3/uL Low 150-450 [facility] Comment on above: Performed By: #### Bernabe BCA, 84598-4, CMP, 4086-5, 3040-3, 37737-0 #### [facility] ([id number]) [address] [place] [address] 45657 RBC COUNT 3.66 X10E12/L Low 3.80-5.20 [facility] Comment on above: Performed By: #### C BCA, 88923-0, CMP, 4086-5, 3040-3, 22653-1 #### [facility] ([id number]) [address] [place] [address] 43386 WBC (Bld) [#/Vol] 3.4 10*3/uL Low 4.0-11.0 [facility] Comment on above: Performed By: #### C BCA, 82750-7, CMP, 4086-5, 3040-3, 92115-1 #### [facility] ([id number]) [address] [place] [address] 27014 COMPREHENSIVE METABOLIC PANE Roger 10-27-2023 Albumin [Mass/Vol] 2.7 g/dL Low 3.2-5.3 [facility] Comment on above: Performed By: #### C BCA, 87619-4, CMP, 4086-5, 3040-3, 39379-8 #### [facility] ([id number]) [address] [place] [address] 60694 ALP [Catalytic activity/Vol] 132 U/L High 39-130 [facility] Comment on above: Performed By: #### C BCA, 88419-8, CMP, 4086-5, 3040-3, 78071-1 #### [facility] ([id number]) [address] [place] [address] 21074 ALT [Catalytic activity/Vol] 11 U/L Normal 0-31 [facility] Comment on above: Performed By: #### C BCA, 45931-6, CMP, 4086-5, 3040-3, 77207-2 #### [facility] ([id number]) [address] [place] [address] 58057 Anion gap [Moles/Vol] 2 mmol/L Low 5-15 [facility] Comment on above: Performed By: #### C BCA, 13512-9, CMP, 4086-5, 3040-3, 67505-6 #### [facility] ([id number]) [address] [place] [address] 32785 AST [Catalytic activity/Vol] 21 U/L Normal 0-41 [facility] Comment on above: Performed By: #### C BCA, 89921-2, CMP, 4086-5, 3040-3, 18651-6 #### [facility] ([id number]) [address] [place] [address] 81196 Bilirubin [Mass/Vol] 0.7 mg/dL Normal 0.3-1.2 [facility] Comment on above: Performed By: #### C BCA, 11751-6, CMP, 4086-5, 3040-3, 80991-8 #### [facility] ([id number]) [address] [place] [address] 51181 Calcium [Mass/Vol] 8.5 mg/dL Normal 8.5-10.5 [facility] Comment on above: Performed By: #### C BCA, 45874-9, CMP, 4086-5, 3040-3, 56005-6 #### [facility] ([id number]) [address] [place] [address] 17133 Chloride [Moles/Vol] 103 mmol/L Normal 98-109 [facility] Comment on above: Performed By: #### C BCA, 53450-5, CMP, 4086-5, 3040-3, 15230-9 #### [facility] ([id number]) [address] [place] [address] 46136 CO2 [Moles/Vol] 28 mmol/L Normal 22-32 [facility] Comment on above: Performed By: #### C BCA, 22394-1, CMP, 4086-5, 3040-3, 65839-0 #### [facility] ([id number]) [address] [place] [address] 90724 Creatinine [Mass/Vol] 1.16 mg/dL High 0.40-1.00 [facility] Comment on above: Result Comment: METH OD TRACEABLE TO IDMS STANDARD Performed By: #### C BCA, 16056-5, CMP, 4086-5, 3040-3, 14421-4 #### [facility] ([id number]) [address] [place] [address] 36189 GFR/1.73 sq M.predicted among non-blacks MDRD (S/P/Bld) [Vol rate/Area] 51 mL/min/{1.73_m2} Low >59 [facility] Comment on above: Result Comment: Reported eGFR is based on the CKD-EPI 2020 equation that does not use a race coefficient. Performed By: #### C BCA, 07552-5, CMP, 4086-5, 3040-3, 16824-8 #### [facility] ([id number]) [address] [place] [address] 08255 Glucose [Mass/Vol] 181 mg/dL High 65-99 [facility] Comment on above: Performed By: #### C BCA, 18738-5, CMP, 4086-5, 3040-3, 39147-6 #### [facility] ([id number]) [address] [place] [address] 85048 Potassium [Moles/Vol] 4.1 mmol/L Normal 3.5-5.0 [facility] Comment on above: Performed By: #### C BCA, 38961-6, CMP, 4086-5, 3040-3, 23983-2 #### [facility] ([id number]) [address] [place] [address] 07581 Protein [Mass/Vol] 6.8 g/dL Normal 6.0-8.0 [facility] Comment on above: Performed By: #### C BCA, 21600-2, CMP, 4086-5, 3040-3, 35226-3 #### [facility] ([id number]) [address] [place] [address] 51274 Sodium [Moles/Vol] 133 mmol/L Low 134-146 [facility] Comment on above: Performed By: #### C BCA, 79799-0, CMP, 4086-5, 3040-3, 77668-4 #### [facility] ([id number]) [address] [place] [address] 60108 Urea nitrogen [Mass/Vol] 19 mg/dL Normal 5-27 [facility] Comment on above: Performed By: #### C DEMETRIS, 98253-1, CMP, 4086-5, 3040-3, 87263-7 #### [facility] ([id number]) [address] [place] [address] 64721 Glucose Glucometer (dC) [M ass/Vol]on 10-27-2023 Glucose [Mass/Vol] 111 mg/dL High 65-99 [facility] Glucose [Mass/Vol] 190 mg/dL High 65-99 [facility] Glucose [Mass/Vol] 105 mg/dL High 65-99 [facility] MAGNESIUMon 10-27-2023 Magnesium [Mass/Vol] 1.6 mg/dL Low 1.8-2.6 [facility] Comment on above: Performed By: #### C BCA, 46464-4, CMP, 4086-5, 3040-3, 92827-5 #### [facility] ([id number]) [address] [place] [address] 65435 MRSA PCR NASALon 10-27-2023 MRSA DNA MARIUSZ+probe Ql (Unsp spec) Negative Normal NEG [facility] Comment on above: Performed By: #### C BCA, 01373-1, CMP, 4086-5, 3040-3, 68599-1 #### [facility] ([id number]) [address] [place] [address] 53773 BASIC METABOLIC PANLon 10-25 Anion gap [Moles/Vol] 7 mmol/L Normal 5-15 [facility] Comment on above: Performed By: #### C BCA, 39402-1, CMP, 4086-5, 3040-3, 37146-9 #### [facility] ([id number]) [address] [place] [address] 95617 Calcium [Mass/Vol] 9.1 mg/dL Normal 8.5-10.5 [facility] Comment on above: Performed By: #### C BCA, 55258-7, CMP, 4086-5, 3040-3, 07381-3 #### [facility] ([id number]) [address] [place] [address] 06083 Chloride [Moles/Vol] 99 mmol/L Normal 98-109 [facility] Comment on above: Performed By: #### C BCA, 82493-0, CMP, 4086-5, 3040-3, 95870-4 #### [facility] ([id number]) [address] [place] [address] 91127 CO2 [Moles/Vol] 27 mmol/L Normal 22-32 [facility] Comment on above: Performed By: #### C BCA, 90309-1, CMP, 4086-5, 3040-3, 12252-3 #### [facility] ([id number]) [address] [place] [address] 40222 Creatinine [Mass/Vol] 1.08 mg/dL High 0.40-1.00 [facility] Comment on above: Result Comment: METH OD TRACEABLE TO IDMS STANDARD Performed By: #### C BCA, 22732-6, CMP, 4086-5, 3040-3, 22539-0 #### [facility] ([id number]) [address] [place] [address] 79329 GFR/1.73 sq M.predicted among non-blacks MDRD (S/P/Bld) [Vol rate/Area] 56 mL/min/{1.73_m2} Low >59 [facility] Comment on above: Result Comment: Reported eGFR is based on the CKD-EPI 2020 equation that does not use a race coefficient. Performed By: #### C BCA, 29604-4, CMP, 4086-5, 3040-3, 65908-9 #### [facility] ([id number]) [address] [place] [address] 86954 Glucose [Mass/Vol] 104 mg/dL High 65-99 [facility] Comment on above: Performed By: #### C BCA, 06679-3, CMP, 4086-5, 3040-3, 67193-5 #### [facility] ([id number]) [address] [place] [address] 77468 Potassium [Moles/Vol] 5.1 mmol/L High 3.5-5.0 [facility] Comment on above: Performed By: #### C BCA, 42871-0, CMP, 4086-5, 3040-3, 08283-8 #### [facility] ([id number]) [address] [place] [address] 27005 Sodium [Moles/Vol] 133 mmol/L Low 134-146 [facility] Comment on above: Performed By: #### C BCA, 19220-4, CMP, 4086-5, 3040-3, 50152-8 #### [facility] ([id number]) [address] [place] [address] 53051 Urea nitrogen [Mass/Vol] 21 mg/dL Normal 5-27 [facility] Comment on above: Performed By: #### C BCA, 31215-6, CMP, 4086-5, 3040-3, 61356-7 #### [facility] ([id number]) [address] [place] [address] 20869 BLOOD CULTUREon 10-26-2023 Bacteria identified Aer cx Nom (Bld) SPECIMEN NOTES L AC CULTURE RESULTS NO GROWTH 5 DAYS Normal [facility] Comment on above: Performed By: #### C BCA, 74232-9, CMP, 4086-5, 3040-3, 11046-8 #### [facility] ([id number]) [address] [place] [address] 92062 Bacteria identified Aer cx Nom (Bld) SPECIMEN NOTES R AC CULTURE RESULTS NO GROWTH 5 DAYS Normal [facility] Comment on above: Performed By: #### C BCA, 20693-2, CMP, 4086-5, 3040-3, 88431-4 #### [facility] ([id number]) [address] [place] [address] 18032 CBC AND AUTO DIFFon 10-26-19 24 ABSOLUTE BASOPHIL 0.0 X10E9/L Normal 0.0-0.2 [facility] Comment on above: Performed By: #### C BCA, 22577-2, CMP, 4086-5, 3040-3, 39723-1 #### [facility] ([id number]) [address] [place] [address] 88930 ABSOLUTE NEUTROPHIL 2.6 X10E9/L Normal 1.5-6.6 [facility] Comment on above: Performed By: #### C BCA, 31254-7, CMP, 4086-5, 3040-3, 43221-7 #### [facility] ([id number]) [address] [place] [address] 58454 Basophils/100 WBC (Bld) 0.5 % Normal [facility] Comment on above: Performed By: #### C BCA, 31088-3, CMP, 4086-5, 3040-3, 28692-9 #### [facility] ([id number]) [address] [place] [address] 07338 Eosinophils (Bld) [#/Vol] 0.1 10*3/uL Normal 0.0-0.4 [facility] Comment on above: Performed By: #### C DEMETRIS, 53557-3, CMP, 4086-5, 3040-3, 55903-4 #### [facility] ([id number]) [address] [place] [address] 78179 Eosinophils/100 WBC (Bld) 1.4 % Normal [facility] Comment on above: Performed By: #### C DEMETRIS, 05382-5, CMP, 4086-5, 3040-3, 09934-1 #### [facility] ([id number]) [address] [place] [address] 27839 Erythrocyte distribution width (RBC) [Ratio] 17.9 % High 11.5-15.0 [facility] Comment on above: Performed By: #### Bernabe WILLSON, 34475-2, CMP, 4086-5, 3040-3, 71882-5 #### [facility] ([id number]) [address] [place] [address] 76840 Hematocrit (Bld) [Volume fraction] 35.3 % Normal 35-47 [facility] Comment on above: Performed By: #### Bernabe WILLSON, 91409-6, CMP, 4086-5, 3040-3, 72554-3 #### [facility] ([id number]) [address] [place] [address] 07851 Hemoglobin (Bld) [Mass/Vol] 11.5 g/dL Low 11.7-15.5 [facility] Comment on above: Performed By: #### Bernabe WILLSON, 19396-7, CMP, 4086-5, 3040-3, 58581-2 #### [facility] ([id number]) [address] [place] [address] 17605 Lymphocytes (Bld) [#/Vol] 1.2 10*3/uL Normal 1.0-3.5 [facility] Comment on above: Performed By: #### C BCA, 26476-4, CMP, 4086-5, 3040-3, 09693-7 #### [facility] ([id number]) [address] [place] [address] 61905 Lymphocytes/100 WBC (Bld) 29.0 % Normal [facility] Comment on above: Performed By: #### Bernabe BCA, 74574-7, CMP, 4086-5, 3040-3, 68966-8 #### [facility] ([id number]) [address] [place] [address] 93871 MCH (RBC) [Entitic mass] 28.8 pg Normal 27-34 [facility] Comment on above: Performed By: #### Bernabe BCA, 33348-9, CMP, 4086-5, 3040-3, 14262-6 #### [facility] ([id number]) [address] [place] [address] 12654 MCHC (RBC) [Mass/Vol] 32.5 g/dL Normal 32-36 [facility] Comment on above: Performed By: #### C BCA, 49753-1, CMP, 4086-5, 3040-3, 73245-3 #### [facility] ([id number]) [address] [place] [address] 64833 MCV (RBC) [Entitic vol] 89 fL Normal 80-100 [facility] Comment on above: Performed By: #### C BCA, 53479-6, CMP, 4086-5, 3040-3, 73934-8 #### [facility] ([id number]) [address] [place] [address] 42342 Monocytes (Bld) [#/Vol] 0.3 10*3/uL Normal 0-0.9 [facility] Comment on above: Performed By: #### Bernabe BCA, 93077-5, CMP, 4086-5, 3040-3, 28547-8 #### [facility] ([id number]) [address] [place] [address] 95551 Monocytes/100 WBC (Bld) 7.8 % Normal [facility] Comment on above: Performed By: #### C BCA, 52285-4, CMP, 4086-5, 3040-3, 94956-1 #### [facility] ([id number]) [address] [place] [address] 25345 Neutrophils/100 WBC (Bld) 61.3 % Normal [facility] Comment on above: Performed By: #### C BCA, 47767-4, CMP, 4086-5, 3040-3, 04488-6 #### [facility] ([id number]) [address] [place] [address]0670 Platelet mean volume (Bld) [Entitic vol] 7.7 fL Normal 7-12 [facility] Comment on above: Performed By: #### C BCA, 80596-0, CMP, 4086-5, 3040-3, 86620-2 #### [facility] ([id number]) [address] [place] [address] 24746 Platelets (Bld) [#/Vol] 118 10*3/uL Low 150-450 [facility] Comment on above: Performed By: #### C BCA, 78262-0, CMP, 4086-5, 3040-3, 71942-8 #### [facility] ([id number]) [address] [place] [address] 01911 RBC COUNT 3.98 X10E12/L Normal 3.80-5.20 [facility] Comment on above: Performed By: #### C BCA, 93761-3, CMP, 4086-5, 3040-3, 21207-6 #### [facility] ([id number]) [address] [place] [address], [place] [address] WBC (Bld) [#/Vol] 4.2 10*3/uL Normal 4.0-11.0 [facility] Comment on above: Performed By: #### C DEMETRIS, 75374-3, ELIZABETH, 4086-5, 3040-3, 15609-7 #### [facility] ([id number]) [address] [place] [address] CT BRAIN WO CONT[address] CT BRAIN WO CONT CT BRAIN WO CONT Clinical History: Mental status changes. CT brain: 10/26/2023 COMPARISON: 10/25/2023. Procedure: Axial images were obtained from the skull base through the cranial vertex. All CT scans at this facility use dose modulation, iterative reconstruction, and/or weight based dosing when appropriate to reduce radiation dose to as low as reasonably achievable. Findings: No acute intracranial hemorrhage, mass, or mass effect is evident. Ventricular configuration is unchanged. Cerebral atrophy is evident with hypodense areas throughout cerebral white matter tracts and within the basal ganglia. This appearance is not changed. IMPRESSION: No acute intracranial abnormality on CT evaluation. Chronic appearing findings as described above. Changes of ischemia may be delayed on CT. If there is further concern for acute ischemia then a short term follow up or additional evaluation using MRI should be considered. Finalized by Dayron Torres MD on 10/26/2023 5:19 PM Normal [facility] Glucose Glucometer (BldC) [M ass/Vol]on 10-26-2023 Glucose [Mass/Vol] 83 mg/dL Normal 65-99 [facility] Lactate (P adrian) [Moles/Vol]o n 10-26-2023 LACTATE W/REFLEX 0.9 mmol/L Normal 0.4-2.0 [facility] Comment on above: Result Comment: Result did not trigger repeat Lactate, re-order if needed. Performed By: #### C DEMETRIS, 12026-9, ELIZABETH, 4086-5, 3040-3, 49928-6 #### [facility] ([id number]) [address] [place] [address] SARS/FLU A+B/RSV by NAAT/[facility] 10-26-2023 SARS/FLU A+B/RSV by NAAT/Molecular FLU A PCR Negative (qualifier value) FLU B PCR Negative (qualifier value) RSV by PCR Negative (qualifier value) SARS CoV 2 Not detected (qualifier value) NOTE The Xpert Xpress SARS-CoV-2/Flu/RSV Plus test is a rapid, multiplexed real-time RT-PCR test intended for the simultaneous qualitative detection and differentiation of SARS-CoV-2, influenza A, influenza B and respiratory syncytial virus (RSV) viral RNA from individuals suspected of respiratory viral infection consistent with COVID-19 by their healthcare provider. This test has not been validated in asymptomatic patients. The Xpert Xpress SARS-CoV-2 test is intended for use by qualified and trained operators who are performing tests using either [employer] or [employer] systems and is limited to laboratories that meet the CLIA requirements to perform high and moderate complexity tests. The Xpert Xpress SARS-CoV-2/Flu/RSV Plus is only for use under the Food and Drug Administration's Emergency Use Authorization. Results are for the simultaneous detection and differentiation of SARS-CoV-2, influenza A, influenza B and RSV nucleic acids in clinical specimens. SARS-CoV-2, influenza A, influenza B and RSV RNA identified by this test are generally detectable in upper respiratory samples during the acute phase of infection. Positive results are indicative of the presence of the identified virus, but do not rule out bacterial infection or co-infection with other pathogens not detected by this test. Clinical correlation with patient history and other diagnostic information is necessary to determine patient infection status. The agent detected may not be the definite cause of disease. Negative results do not preclude SARS-CoV-2, influenza A, influenza B and RSV infection and should not be used as the sole basis for treatment or other patient management decisions. Negative results must be combined with clinical observations, patient history and epidemiological information. An Invalid result may occur with specimen-associated inhibition unable to be resolved with specimen repeat. Fact Sheet for Healthcare Providers: https://www.fda.gov/ media/780963/downloa d Fact Sheet for Patients: https://www.fda.gov/ media/840768/downloa d [facility] Comment on above: Performed By: #### C BCA, 25410-7, CMP, 4086-5, 3040-3, 44262-4 #### [facility] ([id number]) [address] [place] [address] 19202 TROPONIN Ion 10-26-2023 Troponin I.cardiac [Mass/Vol] 0.01 ng/mL Normal 0.00-0.04 [facility] Comment on above: Performed By: #### C BCA, 56007-1, CMP, 4086-5, 3040-3, 65174-2 #### [facility] ([id number]) [address] [place] [address] XR CHEST 1 VWon 10-26-2023 XR CHEST 1 VW XR CHEST 1 VW Portable chest: HISTORY: Cough. Single view the chest was obtained. Lower lobe infiltrates or atelectasis noted. There is no pneumothorax. No consolidation or effusion. Widening of the right AC joint space is unchanged in comparison with previous exam dated 08/17/2023. IMPRESSION: Lower lobe infiltrates or atelectasis. Finalized by Ignacio Alberts MD on 10/26/2023 5:17 PM Normal [facility] CT BRAIN WO CONTon CT BRAIN WO CONT CT BRAIN WO CONT CT BRAIN WO CONT HISTORY: Head trauma, fall. COMPARISON: 09/23/2023 CTs TECHNIQUE: CT head was performed and images obtained without the use of intravenous contrast. FINDINGS: No shift of the midline structures or focal mass effect. Moderate to severe cortical atrophy atrophy with resultant ventricular prominence. Right lateral ventricle is relatively more prominent than left. Periventricular hypoattenuation suggestive chronic microvascular ischemia. No acute ischemia or hemorrhage. Polypoid mucosal thickening of the left maxillary sinus, seen left lower cell, and minimal mucosal thickening within the sphenoid sinuses. The visualized intraorbital contents and the infratemporal soft tissues show no abnormality. Bilateral lens replacements The osseous structures in the skull and the calvarium show no acute abnormality. IMPRESSION: * No acute intracranial process by CT. All CT scans at this facility use dose modulation, iterative reconstruction, and/or weight based dosing when appropriate to reduce radiation dose to as low as reasonably achievable. Approved by Resident Jesse Car MD on 10/25/2023 10:44 AM I, Dayron Torres MD have personally reviewed the image(s) and agree with and/or edited the report Finalized by Dayron Torres MD on 10/25/2023 11:28 AM Normal [facility] URINE CULTUREon 10-25-2023 Bacteria identified Cx Nom (U) CULTURE RESULTS >100,000 ORGANISMS/mL AEROCOCCUS SPECIES IDENTIFIED : Aerococcus sanguinicola Routine susceptibility testing not available. Aerococcus species are reported to be susceptible to penicillin. A.urinae has also beendescribed as susceptible to amoxacillin and nitrofurantoin (for treatment of urinary tract infections only). 10,000 to 50,000 ORGANISMS/mL PROTEUS MIRABILIS [ S = SUSCEPTIBLE R = RESISTANT I = INTERMEDIATE S-DO = Susceptible-dose dependent NS = Non-suscceptible NO = No Interpretation ] Organism: PROTEUS MIRABILIS Antibiotic Interpretation ALEX Status AMPICILLIN S 4 F AMP/SULBACTAM S <=2/1 F CEFAZOLIN S <=4 F CEFTRIAXONE S <=1 F CIPROFLOXACIN R >=4 F GENTAMICIN I 8 F LEVOFLOXACIN R >=8 F NITROFURANTOIN R 128 F PIPERACIL/TAZOBACTAM S <=4 F TOBRAMYCIN I 8 F TRIMETH/SULFAMETHOXA ZOLE R >=16/304 F Resistant [facility] Comment on above: Performed By: #### C DEMETRIS, 85741-0, CMP, 4086-5, 3040-3, 47723-3 #### [facility] ([id number]) [address] [place] [address] 95683 URN MACROSCOPIC NURon 2023 BILIRUBIN SAMINA Negative Normal NEG [facility] Comment on above: Performed By: #### C DEMETRIS, 51775-9, CMP, 4086-5, 3040-3, 53024-6 #### [facility] ([id number]) [address] [place] [address] 31245 BLOOD/HGB SAMINA Negative Normal NEG [facility] Comment on above: Performed By: #### C BCA, 05189-3, CMP, 4086-5, 3040-3, 30710-8 #### [facility] ([id number]) [address] [place] [address] 48753 GLUCOSE SAMINA Negative Normal NEG [facility] Comment on above: Performed By: #### C BCA, 02750-1, CMP, 4086-5, 3040-3, 71203-8 #### [facility] ([id number]) [address] [place] [address] 70582 KETONES SAMINA Trace Abnormal NEG [facility] Comment on above: Performed By: #### C BCA, 70417-5, CMP, 4086-5, 3040-3, 94482-7 #### [facility] ([id number]) [address] [place] [address] 82233 LEUKOCYTE ESTERASE SAMINA Trace Abnormal NEG [facility] Comment on above: Performed By: #### C BCA, 52907-0, CMP, 4086-5, 3040-3, 22704-8 #### [facility] ([id number]) [address] [place] [address] 10829 NITRITE SAMINA Negative Normal NEG [facility] Comment on above: Performed By: #### C BCA, 13555-0, CMP, 4086-5, 3040-3, 94998-4 #### [facility] ([id number]) [address] [place] [address] 80377 PH SAMINA 6.0 Normal 5.0-8.5 [facility] Comment on above: Performed By: #### C BCA, 04318-0, CMP, 4086-5, 3040-3, 04769-5 #### [facility] ([id number]) [address] [place] [address] [place] [address] PROTEIN SAMINA Negative Normal NEG [facility] Comment on above: Performed By: #### C BCA, 10704-7, CMP, 4086-5, 3040-3, 61483-8 #### [facility] ([id number]) [address] [place] [address] 55317 SPECIFIC GRAVITY SAMINA 1.025 Normal 1.003-1.035 [facility] Comment on above: Performed By: #### C BCA, 53358-3, CMP, 4086-5, 3040-3, 95639-6 #### [facility] ([id number]) [address] [place] [address] 18054 UROBILINOGEN SAMINA 0.2 eu/dL Normal <1.1 [facility] Comment on above: Performed By: #### C BCA, 55142-5, CMP, 4086-5, 3040-3, 19224-7 #### [facility] ([id number]) [address] [place] [address] 47115 XR ELBOW RT MIN 3 VWSon 10-15 XR ELBOW RT MIN 3 VWS XR ELBOW RT MIN 3 VWS XR ELBOW RT MIN 3 VWS CLINICAL INFORMATION: Elbow pain. COMPARISON: None. IMPRESSION: * No fracture. Normal alignment. Lateral view is suboptimal. No definite effusion. Mild soft tissue swelling. Finalized by Abdifatah Hearn MD on 10/25/2023 11:00 AM Normal [facility] XR HIPS BILAT W OR WO PELVIS 5+ VWSon 10-25-2023 XR HIPS BILAT W OR WO PELVIS 5+ VWS XR HIPS BILAT W OR WO PELVIS 5+ VWS XR HIPS BILAT W OR WO PELVIS 5+ VWS CLINICAL INFORMATION: Unwitnessed fall. Hip pain. COMPARISON: None. IMPRESSION: * No visualized acute fracture. Moderate degenerative changes. If there is persistent pain or the patient cannot bear weight recommend MRI. * Osteopenia and other degenerative changes involving the pelvis. Degenerative changes of the sacroiliac joints. Pelvic phleboliths. Finalized by Abdifatah Hearn MD on 10/25/2023 10:59 AM Normal [facility] XR SPINE LUMBAR 2 OR 3 VWSon 10-25-2023 XR SPINE LUMBAR 2 OR 3 VWS XR SPINE LUMBAR 2 OR 3 VWS XR SPINE LUMBAR 2 OR 3 VWS CLINICAL INFORMATION: Back pain. COMPARISON: None. IMPRESSION: * No fracture or malalignment. L3 kyphoplasty with chronic wedge compression deformity. Endplate and facet degenerative changes are noted. * Osteopenia and vascular calcifications. * Calcification overlying the right upper quadrant measuring 1.4 cm. Pelvic phleboliths are noted. Finalized by Abdifatah Hearn MD on 10/25/2023 11:01 AM Normal [facility] AMMONIAon 09-25-2023 Ammonia (P) [Moles/Vol] 31 umol/L Normal 11-35 [facility] Comment on above: Performed By: #### C BCA, 59413-1, CMP, 4086-5, 3040-3, 46866-1 #### [facility] ([id number]) [address] [place] [address] 90217 AMMONIAon 09-23-2023 Ammonia (P) [Moles/Vol] 22 umol/L Normal 11-35 [facility] Comment on above: Performed By: #### C BCA, 43679-1, CMP, 4086-5, 3040-3, 38058-5 #### [facility] ([id number]) [address] [place] [address] 84282 CBC AND AUTO DIFFon 09-23-19 24 ABSOLUTE BASOPHIL 0.0 X10E9/L Normal 0.0-0.2 [facility] Comment on above: Performed By: #### C BCA, 30301-7, CMP, 4086-5, 3040-3, 66663-7 #### [facility] ([id number]) [address] [place], [place] [address] ABSOLUTE NEUTROPHIL 1.7 X10E9/L Normal 1.5-6.6 [facility] Comment on above: Performed By: #### C BCA, 28432-1, CMP, 4086-5, 3040-3, 54565-2 #### [facility] ([id number]) [address] [place] [address] 47065 Basophils/100 WBC (Bld) 0.5 % Normal [facility] Comment on above: Performed By: #### C BCA, 32609-3, CMP, 4086-5, 3040-3, 52839-4 #### [facility] ([id number]) [address] [place] [address] 20602 Eosinophils (Bld) [#/Vol] 0.1 10*3/uL Normal 0.0-0.4 [facility] Comment on above: Performed By: #### C BCA, 89404-3, CMP, 4086-5, 3040-3, 52480-7 #### [facility] ([id number]) [address] [place] [address] 20292 Eosinophils/100 WBC (Bld) 2.6 % Normal [facility] Comment on above: Performed By: #### C BCA, 69965-4, CMP, 4086-5, 3040-3, 08832-0 #### [facility] ([id number]) [address] [place] [address] 20716 Erythrocyte distribution width (RBC) [Ratio] 17.7 % High 11.5-15.0 [facility] Comment on above: Performed By: #### C BCA, 45393-9, CMP, 4086-5, 3040-3, 65254-7 #### [facility] ([id number]) [address] [place] [address] 13314 Hematocrit (Bld) [Volume fraction] 36.0 % Normal 35-47 [facility] Comment on above: Performed By: #### C BCA, 26049-3, CMP, 4086-5, 3040-3, 43918-3 #### [facility] ([id number]) [address] [place] [address] 46568 Hemoglobin (Bld) [Mass/Vol] 11.8 g/dL Normal 11.7-15.5 [facility] Comment on above: Performed By: #### C DEMETRIS, 05966-0, CMP, 4086-5, 3040-3, 94636-7 #### [facility] ([id number]) [address] [place] [address] 88728 Lymphocytes (Bld) [#/Vol] 1.0 10*3/uL Normal 1.0-3.5 [facility] Comment on above: Performed By: #### C DEMETRIS, 04466-5, CMP, 4086-5, 3040-3, 79164-8 #### [facility] ([id number]) [address] [place] [address] 61583 Lymphocytes/100 WBC (Bld) 32.7 % Normal [facility] Comment on above: Performed By: #### Bernabe WILLSON, 90255-2, CMP, 4086-5, 3040-3, 31575-7 #### [facility] ([id number]) [address] [place] [address] 10546 MCH (RBC) [Entitic mass] 28.6 pg Normal 27-34 [facility] Comment on above: Performed By: #### Bernabe WILLSON, 55106-2, CMP, 4086-5, 3040-3, 13509-0 #### [facility] ([id number]) [address] [place] [address] 32393 MCHC (RBC) [Mass/Vol] 32.6 g/dL Normal 32-36 [facility] Comment on above: Performed By: #### Bernabe WILLSON, 19681-0, CMP, 4086-5, 3040-3, 00227-1 #### [facility] ([id number]) [address] [place] [address] 48261 MCV (RBC) [Entitic vol] 88 fL Normal 80-100 [facility] Comment on above: Performed By: #### C BCA, 88542-5, CMP, 4086-5, 3040-3, 16098-0 #### [facility] ([id number]) [address] [place] [address] 79425 Monocytes (Bld) [#/Vol] 0.2 10*3/uL Normal 0-0.9 [facility] Comment on above: Performed By: #### C BCA, 13227-5, CMP, 4086-5, 3040-3, 37436-2 #### [facility] ([id number]) [address] [place] [address] 38894 Monocytes/100 WBC (Bld) 8.2 % Normal [facility] Comment on above: Performed By: #### Bernabe BCA, 23911-7, CMP, 4086-5, 3040-3, 19692-4 #### [facility] ([id number]) [address] [place] [address] 63087 Neutrophils/100 WBC (Bld) 56.0 % Normal [facility] Comment on above: Performed By: #### Bernabe BCA, 45673-2, CMP, 4086-5, 3040-3, 40886-2 #### [facility] ([id number]) [address] [place] [address] 12656 Platelet mean volume (Bld) [Entitic vol] 7.2 fL Normal 7-12 [facility] Comment on above: Performed By: #### C BCA, 55914-0, CMP, 4086-5, 3040-3, 74293-5 #### [facility] ([id number]) [address] [place] [address] 26969 Platelets (Bld) [#/Vol] 99 10*3/uL Low 150-450 [facility] Comment on above: Result Comment: PLAT ELETS REVIEWED Performed By: #### C BCA, 94740-4, CMP, 4086-5, 3040-3, 66051-0 #### [facility] ([id number]) [address] [place] [address] 50391 RBC COUNT 4.12 X10E12/L Normal 3.80-5.20 [facility] Comment on above: Performed By: #### C BCA, 63233-3, CMP, 4086-5, 3040-3, 41061-2 #### [facility] ([id number]) [address] [place] [address] 68665 WBC (Bld) [#/Vol] 3.0 10*3/uL Low 4.0-11.0 [facility] Comment on above: Performed By: #### C BCA, 20581-0, CMP, 4086-5, 3040-3, 17728-0 #### [facility] ([id number]) [address] [place] [address] 81635 COMPREHENSIVE METABOLIC PANE Roger 09-23-2023 Albumin [Mass/Vol] 3.1 g/dL Low 3.2-5.3 [facility] Comment on above: Performed By: #### C BCA, 09065-0, CMP, 4086-5, 3040-3, 11224-6 #### [facility] ([id number]) [address] [place] [address] 20918 ALP [Catalytic activity/Vol] 95 U/L Normal 39-130 [facility] Comment on above: Performed By: #### C BCA, 72402-3, CMP, 4086-5, 3040-3, 30473-7 #### [facility] ([id number]) [address] [place] [address] 76294 ALT [Catalytic activity/Vol] 9 U/L Normal 0-31 [facility] Comment on above: Performed By: #### C BCA, 95267-1, CMP, 4086-5, 3040-3, 89559-2 #### [facility] ([id number]) [address] [place] [address] 39700 Anion gap [Moles/Vol] 6 mmol/L Normal 5-15 [facility] Comment on above: Performed By: #### C BCA, 12303-2, CMP, 4086-5, 3040-3, 76718-4 #### [facility] ([id number]) [address] [place] [address] 42326 AST [Catalytic activity/Vol] 21 U/L Normal 0-41 [facility] Comment on above: Performed By: #### C BCA, 80700-6, CMP, 4086-5, 3040-3, 62892-7 #### [facility] ([id number]) [address] [place] [address] 84013 Bilirubin [Mass/Vol] 1.0 mg/dL Normal 0.3-1.2 [facility] Comment on above: Performed By: #### C BCA, 56038-6, CMP, 4086-5, 3040-3, 97386-2 #### [facility] ([id number]) [address] [place] [address] 10737 Calcium [Mass/Vol] 8.9 mg/dL Normal 8.5-10.5 [facility] Comment on above: Performed By: #### C BCA, 77538-9, CMP, 4086-5, 3040-3, 88895-2 #### [facility] ([id number]) [address] [place] [address] 01659 Chloride [Moles/Vol] 99 mmol/L Normal 98-109 [facility] Comment on above: Performed By: #### C BCA, 41919-4, CMP, 4086-5, 3040-3, 93846-3 #### [facility] ([id number]) [address] [place] [address] 95200 CO2 [Moles/Vol] 29 mmol/L Normal 22-32 [facility] Comment on above: Performed By: #### C BCA, 17608-2, CMP, 4086-5, 3040-3, 29587-1 #### [facility] ([id number]) [address] [place] [address] 68593 Creatinine [Mass/Vol] 1.12 mg/dL High 0.40-1.00 [facility] Comment on above: Result Comment: METH OD TRACEABLE TO IDMS STANDARD Performed By: #### C BCA, 03012-4, CMP, 4086-5, 3040-3, 68351-6 #### [facility] ([id number]) [address] [place] [address] 75850 GFR/1.73 sq M.predicted among non-blacks MDRD (S/P/Bld) [Vol rate/Area] 53 mL/min/{1.73_m2} Low >59 [facility] Comment on above: Result Comment: Reported eGFR is based on the CKD-EPI 2020 equation that does not use a race coefficient. Performed By: #### C BCA, 36277-5, CMP, 4086-5, 3040-3, 66019-3 #### [facility] ([id number]) [address] [place] [address] 04319 Glucose [Mass/Vol] 82 mg/dL Normal 65-99 [facility] Comment on above: Performed By: #### C BCA, 18289-0, CMP, 4086-5, 3040-3, 53199-5 #### [facility] ([id number]) [address] [place] [address] 01967 Potassium [Moles/Vol] 4.3 mmol/L Normal 3.5-5.0 [facility] Comment on above: Performed By: #### C BCA, 39107-2, CMP, 4086-5, 3040-3, 34053-9 #### [facility] ([id number]) [address] [place] [address] 92197 Protein [Mass/Vol] 7.3 g/dL Normal 6.0-8.0 [facility] Comment on above: Performed By: #### C BCA, 10808-0, CMP, 4086-5, 3040-3, 75975-3 #### [facility] ([id number]) [address] [place] [address] 07580 Sodium [Moles/Vol] 134 mmol/L Normal 134-146 [facility] Comment on above: Performed By: #### C BCA, 83125-4, CMP, 4086-5, 3040-3, 46452-2 #### [facility] ([id number]) [address] [place] [address] 40998 Urea nitrogen [Mass/Vol] 16 mg/dL Normal 5-27 [facility] Comment on above: Performed By: #### C BCA, 38994-5, CMP, 4086-5, 3040-3, 36274-4 #### [facility] ([id number]) [address] [place] [address] BRAIN WO CONTon 4 CT BRAIN WO CONT CT BRAIN WO CONT STUDY: CT BRAIN WO CONT INDICATION: Head trauma, minor (Age >= 65y). Pain. TECHNIQUE: * CT head was performed without intravenous contrast using the standard protocol. Automated exposure control was utilized. * All CT scans at this facility use dose modulation, iterative reconstruction, and/or weight based dosing when appropriate to reduce radiation dose to as low as reasonably achievable. FINDINGS: No evidence of acute intracranial hemorrhage, territorial infarct, mass effect, midline shift, or extra-axial fluid collection. Moderate to severe diffuse parenchymal atrophy. Ventricles, sulci and cisterns are otherwise unremarkable. Bilateral pseudophakia. Soft tissues are unremarkable. Intracranial atherosclerosis. Polypoid mucosal thickening of the left maxillary sinus. Secretions are noted in the left posterior ethmoid air cells and bilateral sphenoid sinuses. Mastoid air cells are broadly clear. No evidence of aggressive osseous lesion. IMPRESSION: * No acute intracranial abnormality, by CT. * Xpltvrei-ac-peigcu cortical atrophy, advanced for age. Finalized by Fito Russell on 09/23/2023 9:04 AM Normal [facility] CT CERVICAL SPINE WO CONTon 09-23-2023 CT CERVICAL SPINE WO CONT CT CERVICAL SPINE WO CONT Clinical history:Neck Pain after trauma CT cervical spine: Procedure: Axial images were obtained through the cervical spine. Coronal and sagittal reconstructions were performed. All CT scans at this facility use dose modulation, iterative reconstruction, and/or weight based dosing when appropriate to reduce radiation dose to as low as reasonably achievable. Findings: Patient is status post anterior fusion of C5-C7. No hardware complication is evident. There are degenerative changes, prominently involving the C4-C5 level with neural foraminal narrowing and at least mild narrowing of the spinal canal. Some ossification posterior to the C7 vertebral body also produces spinal canal narrowing. No acute fracture or focal osseous abnormality is evident. Other osseous structures are within normal limits. IMPRESSION: No acute fracture or focal abnormality within the cervical spine. Degenerative and postoperative findings as described above. Finalized by Dayron Torres MD on 09/23/2023 9:08 AM Normal [facility] CT THORACIC SPINE WO CONTon 09-23-2023 CT THORACIC SPINE WO CONT CT THORACIC SPINE WO CONT CT THORACIC SPINE WITHOUT CONTRAST COMPARISON: None. HISTORY: Back trauma, fall. TECHNIQUE: Unenhanced axial images of the thoracic spine obtained with sagittal and coronal 2-D reformatted images. Automatic exposure control (AEC) was utilized. FINDINGS: There is normal alignment of the thoracic spine with no evidence for an acute fracture or subluxation. Diffuse degenerative changes. Dependent right basilar atelectasis. Severe coronary artery calcification. Partially visualized splenomegaly. IMPRESSION: 1. No acute fracture. 2. Severe coronary artery calcification. 3. Partially visualized splenomegaly. All CT scans at this facility use dose modulation, iterative reconstruction, and/or weight based dosing when appropriate to reduce radiation dose to as low as reasonably achievable. Finalized by Brandon Peterson MD on 09/23/2023 9:17 AM Normal [facility] MAGNESIUMon 09-23-2023 Magnesium [Mass/Vol] 1.5 mg/dL Low 1.8-2.6 [facility] Comment on above: Performed By: #### C BCA, 26570-2, CMP, 4086-5, 3040-3, 58500-8 #### [facility] ([id number]) [address] [place] [address] 86951 PROTIME AND INRon 09-23-2023 INR Coag (PPP) [Relative time] 1.1 {INR} Normal 0.8-1.1 [facility] Comment on above: Performed By: #### C BCA, 36292-9, CMP, 4086-5, 3040-3, 09263-3 #### [facility] ([id number]) [address] [place] [address] 71031 PT Coag (PPP) [Time] 12.9 s Normal 9.8-13.2 [facility] Comment on above: Result Comment: NEW REFERENCE RANGE Performed By: #### C BCA, 19558-2, CMP, 4086-5, 3040-3, 54041-2 #### [facility] ([id number]) [address] [place] [address] 15096 TROPONIN Ion 09-23-2023 Troponin I.cardiac [Mass/Vol] ng/mL Normal 0.00-0.04 [facility] Comment on above: Performed By: #### C BCA, 04517-4, CMP, 4086-5, 3040-3, 63699-3 #### [facility] ([id number]) [address] [place] [address] 43812 XR HUMERUS RT MIN 2 VWSon XR HUMERUS RT MIN 2 VWS XR HUMERUS RT ME N 2 VWS Clinical history: Fall. Back pain. Right humerus: 09/23/2023 COMPARISON: None FINDINGS: 2 views the humerus were obtained. There is cortical irregularity at the proximal humeral shaft which may reflect an old injury. On this 2 view study, no definite fracture lucency is present. Clinical alignment is anatomic. There is irregularity of the acromion clavicular joint likely related to prior surgery/trauma. IMPRESSION: Abnormal appearance of the proximal humerus most likely related to previous injury. Correlation with previous history recommended. An acute fracture is difficult to completely excluded and additional images of the shoulder may be helpful for further assessment. Finalized by Dayron Torres MD on 09/23/2023 8:53 AM Normal [facility] aPTT Coag (PPP) [Time]on aPTT Coag (Bld) [Time] 32 s Normal 26-37 [facility] Comment on above: Result Comment: NEW REFERENCE RANGE Performed By: #### C BCA, 83350-1, CMP, 4086-5, 3040-3, 47737-9 #### [facility] ([id number]) [address] [place] [address] 649[address] AMMONIAon 08-31-2023 Ammonia (P) [Moles/Vol] 37 umol/L High 11-35 P [facility] Comment on above: Performed By: #### C BCA, 51269-1, CMP, 4086-5, 3040-3, 31733-1 #### [facility] ([id number]) [address] [place] [address] 71183 CBC AND AUTO DIFFon 08-17-19 24 ABSOLUTE BASOPHIL 0.0 X10E9/L Normal 0.0-0.2 [facility] Comment on above: Performed By: #### C BCA, 64953-3, CMP, 4086-5, 3040-3, 54078-2 #### [facility] ([id number]) [address] [place] [address] 84632 ABSOLUTE NEUTROPHIL 2.0 X10E9/L Normal 1.5-6.6 [facility] Comment on above: Performed By: #### C BCA, 24675-3, CMP, 4086-5, 3040-3, 43322-3 #### [facility] ([id number]) [address] [place] [address] 71896 Basophils/100 WBC (Bld) 1.4 % Normal P [facility] Comment on above: Performed By: #### C BCA, 88854-1, CMP, 4086-5, 3040-3, 46128-5 #### [facility] ([id number]) [address] [place] [address] 17350 Eosinophils (Bld) [#/Vol] 0.1 10*3/uL Normal 0.0-0.4 [facility] Comment on above: Performed By: #### C BCA, 99472-6, CMP, 4086-5, 3040-3, 60702-0 #### [facility] ([id number]) [address] [place] [address] 92601 Eosinophils/100 WBC (Bld) 2.1 % Normal [facility] Comment on above: Performed By: #### C BCA, 55709-9, CMP, 4086-5, 3040-3, 66646-6 #### [facility] ([id number]) [address] [place] [address] 97025 Erythrocyte distribution width (RBC) [Ratio] 16.7 % High 11.5-15.0 [facility] Comment on above: Performed By: #### C BCA, 83474-3, CMP, 4086-5, 3040-3, 59193-4 #### [facility] ([id number]) [address] [place] [address] 02404 Hematocrit (Bld) [Volume fraction] 33.4 % Low 35-47 [facility] Comment on above: Performed By: #### C BCA, 77733-5, CMP, 4086-5, 3040-3, 09426-4 #### [facility] ([id number]) [address] [place] [address] 15821 Hemoglobin (Bld) [Mass/Vol] 11.0 g/dL Low 11.7-15.5 [facility] Comment on above: Performed By: #### C BCA, 45577-7, CMP, 4086-5, 3040-3, 39717-6 #### [facility] ([id number]) [address] [place] [address] 53223 Lymphocytes (Bld) [#/Vol] 0.9 10*3/uL Low 1.0-3.5 [facility] Comment on above: Performed By: #### C BCA, 29875-3, CMP, 4086-5, 3040-3, 58044-4 #### [facility] ([id number]) [address] [place] [address] 55158 Lymphocytes/100 WBC (Bld) 26.2 % Normal [facility] Comment on above: Performed By: #### C BCA, 83082-3, CMP, 4086-5, 3040-3, 41784-2 #### [facility] ([id number]) [address] [place] [address] 74644 MCH (RBC) [Entitic mass] 29.4 pg Normal 27-34 [facility] Comment on above: Performed By: #### C BCA, 86926-0, CMP, 4086-5, 3040-3, 21093-6 #### [facility] ([id number]) [address] [place] [address] 81082 MCHC (RBC) [Mass/Vol] 33.0 g/dL Normal 32-[address] [facility] Comment on above: Performed By: #### C BCA, 58347-0, CMP, 4086-5, 3040-3, 40666-5 #### [facility] ([id number]) [address] [place] [address] 50015 MCV (RBC) [Entitic vol] 89 fL Normal 80-100 [facility] Comment on above: Performed By: #### C BCA, 76606-3, CMP, 4086-5, 3040-3, 95184-9 #### [facility] ([id number]) [address] [place] [address] 88403 Monocytes (Bld) [#/Vol] 0.3 10*3/uL Normal 0-0.9 [facility] Comment on above: Performed By: #### C BCA, 84918-0, CMP, 4086-5, 3040-3, 40913-6 #### [facility] ([id number]) [address] [place] [address] 75520 Monocytes/100 WBC (Bld) 10.4 % Normal [facility] Comment on above: Performed By: #### Bernabe WILLSON, 40162-0, CMP, 4086-5, 3040-3, 19428-1 #### [facility] ([id number]) [address] [place] [address] 81664 Neutrophils/100 WBC (Bld) 59.9 % Normal [facility] Comment on above: Performed By: #### Bernabe WILLSON, 89829-4, CMP, 4086-5, 3040-3, 96988-6 #### [facility] ([id number]) [address] [place] [address] 80619 Platelet mean volume (Bld) [Entitic vol] 6.7 fL Low 7-12 [facility] Comment on above: Performed By: #### Bernabe WILLSON, 26126-1, CMP, 4086-5, 3040-3, 02015-2 #### [facility] ([id number]) [address] [place] [address] 74860 Platelets (Bld) [#/Vol] 180 10*3/uL Normal 150-450 [facility] Comment on above: Performed By: #### Bernabe BCA, 31916-3, CMP, 4086-5, 3040-3, 01039-7 #### [facility] ([id number]) [address] [place] [address] 99335 RBC COUNT 3.75 X10E12/L Low 3.80-5.20 [facility] Comment on above: Performed By: #### C BCA, 85164-1, CMP, 4086-5, 3040-3, 36828-9 #### [facility] ([id number]) [address] [place] [address] 37347 WBC (Bld) [#/Vol] 3.3 10*3/uL Low 4.0-11.0 [facility] Comment on above: Performed By: #### C BCA, 88216-2, CMP, 4086-5, 3040-3, 46858-7 #### [facility] ([id number]) [address] [place] [address] 78085 COMPREHENSIVE METABOLIC PANE Roger 08-17-2023 Albumin [Mass/Vol] 2.8 g/dL Low 3.2-5.3 [facility] Comment on above: Performed By: #### C BCA, 83329-4, CMP, 4086-5, 3040-3, 17212-3 #### [facility] ([id number]) [address] [place] [address] 14551 ALP [Catalytic activity/Vol] 134 U/L High 39-130 [facility] Comment on above: Performed By: #### C BCA, 74672-5, CMP, 4086-5, 3040-3, 00048-6 #### [facility] ([id number]) [address] [place] [address] 07950 ALT [Catalytic activity/Vol] 9 U/L Normal 0-31 [facility] Comment on above: Performed By: #### C BCA, 80562-4, CMP, 4086-5, 3040-3, 66553-3 #### [facility] ([id number]) [address] [place] [address] 49434 Anion gap [Moles/Vol] 1 mmol/L Low 5-15 [facility] Comment on above: Performed By: #### C BCA, 11157-3, CMP, 4086-5, 3040-3, 41256-1 #### [facility] ([id number]) [address] [place] [address] 13135 AST [Catalytic activity/Vol] 19 U/L Normal 0-41 [facility] Comment on above: Performed By: #### C BCA, 84416-1, CMP, 4086-5, 3040-3, 52358-3 #### [facility] ([id number]) [address] [place] [address] 93355 Bilirubin [Mass/Vol] 0.9 mg/dL Normal 0.3-1.2 [facility] Comment on above: Performed By: #### C BCA, 49153-2, CMP, 4086-5, 3040-3, 58590-7 #### [facility] ([id number]) [address] [place] [address] 07277 Calcium [Mass/Vol] 8.3 mg/dL Low 8.5-10.5 [facility] Comment on above: Performed By: #### C BCA, 08478-8, CMP, 4086-5, 3040-3, 49725-8 #### [facility] ([id number]) [address] [place] [address] 93744 Chloride [Moles/Vol] 101 mmol/L Normal 98-109 [facility] Comment on above: Performed By: #### C BCA, 32427-5, CMP, 4086-5, 3040-3, 43315-3 #### [facility] ([id number]) [address] [place] [address] 44423 CO2 [Moles/Vol] 28 mmol/L Normal 22-32 [facility] Comment on above: Performed By: #### C BCA, 31702-1, CMP, 4086-5, 3040-3, 11200-4 #### [facility] ([id number]) [address] [place] [address] 77421 Creatinine [Mass/Vol] 1.18 mg/dL High 0.40-1.00 [facility] Comment on above: Result Comment: METH OD TRACEABLE TO IDMS STANDARD Performed By: #### C BCA, 53273-9, CMP, 4086-5, 3040-3, 06965-3 #### [facility] ([id number]) [address] [place] [address] 21691 GFR/1.73 sq M.predicted among non-blacks MDRD (S/P/Bld) [Vol rate/Area] 50 mL/min/{1.73_m2} Low >59 [facility] Comment on above: Result Comment: Reported eGFR is based on the CKD-EPI 2020 equation that does not use a race coefficient. Performed By: #### C BCA, 50791-0, CMP, 4086-5, 3040-3, 71650-4 #### [facility] ([id number]) [address] [place] [address] 67742 Glucose [Mass/Vol] 151 mg/dL High 65-99 [facility] Comment on above: Performed By: #### C BCA, 92692-3, CMP, 4086-5, 3040-3, 64993-8 #### [facility] ([id number]) [address] [place] [address] 68671 Potassium [Moles/Vol] 4.2 mmol/L Normal 3.5-5.0 [facility] Comment on above: Performed By: #### C BCA, 83220-3, CMP, 4086-5, 3040-3, 61310-9 #### [facility] ([id number]) [address] [place] [address] 85872 Protein [Mass/Vol] 7.0 g/dL Normal 6.0-8.0 [facility] Comment on above: Performed By: #### C BCA, 00994-5, CMP, 4086-5, 3040-3, 21355-7 #### [facility] ([id number]) [address] [place] [address] Sodium [Moles/Vol] 130 mmol/L Low 134-146 [facility] Comment on above: Performed By: #### C BCA, 94213-8, CMP, 4086-5, 3040-3, 78442-9 #### [facility] ([id number]) [address] [place] [address] 47700 Urea nitrogen [Mass/Vol] 17 mg/dL Normal - [facility] Comment on above: Performed By: #### C BCA, 60075-3, CMP, 4086-5, 3040-3, 21973-7 #### [facility] ([id number]) [address] [place] [address] BRAIN WO CONTon CT BRAIN WO CONT CT BRAIN WO CONT CT BRAIN WO CONT 08/17/2023 3:35 PM INDICATION: Head trauma, minor (Age >= 65y) altered mental status COMPARISON: CT head 07/13/2023 TECHNIQUE: Noncontrast CT images of the head were obtained. All CT scans at this facility use dose modulation, iterative reconstruction, and/or weight based dosing when appropriate to reduce radiation dose to as low as reasonably achievable. FINDINGS: BRAIN: No intraparenchymal or extra-axial hemorrhage. Patent basal cisterns. No mass effect or midline shift. Mckoy-white differentiation is preserved. There are nonspecific areas of subcortical and deep white matter hypoattenuation, similar compared to prior. Extra-axial spaces prominent over the anterior cerebral convexities, similar compared to prior. Mild to moderate brain parenchymal atrophy. VENTRICLES: No hydrocephalus. VASCULATURE: No hyperdense major artery or major dural venous sinus. PARANASAL SINUSES: Moderate polypoid thickening of the left maxillary sinus and moderate paranasal sinus thickening overall. TEMPORAL BONE: Well-aerated middle ears and visualized mastoid air cells. ORBITS: Unremarkable. SOFT TISSUES: The visualized head and neck soft tissues are unremarkable. OSSEOUS STRUCTURES: No displaced facture. Unremarkable skull base. IMPRESSION: No definite acute intracranial abnormality. Finalized by Glenis Arriola DO on 08/17/2023 4:33 PM Normal [facility] CT CERVICAL SPINE WO CONTon 08-17-2023 CT CERVICAL SPINE WO CONT CT CERVICAL SPINE WO CONT CT CERVICAL SPINE WO CONT CLINICAL HISTORY: Transient alteration of awareness, fall, acute neck pain COMPARISON: None TECHNIQUE: CT cervical spine without intravenous contrast. All CT scans at this facility use dose modulation, iterative reconstruction, and/or weight based dosing when appropriate to reduce radiation dose to as low as reasonably achievable. FINDINGS: Vertebral body heights are preserved. There is no pathologic malalignment in the cervical spine. Normal alignment of the facet joints and spinous processes. Patient status post C5-C7 ACDF without acute complication. The craniocervical junction and atlantoaxial articulations are unremarkable. There is no acute fracture, dislocation, or destructive osseous lesion. Emphysematous changes of the lungs. Polypoid mucosal thickening in the left maxillary sinus. Mucosal thickening left ethmoid and sphenoid sinus noted. The prevertebral and paraspinal soft tissues are unremarkable appearing. Degenerative posterior disc osteophyte complex at C4-5 and C7-T1. IMPRESSION: * No acute CT findings in the cervical spine. * Chronic findings detailed above. Approved by Resident Stephen Osei DO on 08/17/2023 4:40 PM Marino Cardenas MD have personally reviewed the image(s) and agree with and/or edited the report Finalized by Marino Mills MD on 08/17/2023 4:58 PM Normal [facility] LIPASEon 08-17-2023 Lipase [Catalytic activity/Vol] 25 U/L Normal 17-40 [facility] Comment on above: Performed By: #### C BCA, 40362-1, CMP, 4086-5, 3040-3, 97010-8 #### [facility] ([id number]) [address] [place] [address], [place] [address] Lactate (P adrian) [Moles/Vol]o n 08-17-2023 LACTATE W/REFLEX 1.8 mmol/L Normal 0.4-2.0 [facility] Comment on above: Result Comment: Result did not trigger repeat Lactate, re-order if needed. Performed By: #### C BCA, 15140-4, CMP, 4086-5, 3040-3, 13929-4 #### [facility] ([id number]) [address] [place] [address] 71632 TROPONIN Ion 08-17-2023 Troponin I.cardiac [Mass/Vol] 0.01 ng/mL Normal 0.00-0.04 [facility] Comment on above: Performed By: #### C BCA, 26485-4, CMP, 4086-5, 3040-3, 61488-9 #### [facility] ([id number]) [address] [place] [address] 77211 Valproate [Mass/Vol]on 08-17 VALPROIC ACID 65 ug/mL Normal 50-100 [facility] Comment on above: Performed By: #### C BCA, 64276-8, CMP, 4086-5, 3040-3, 30461-6 #### [facility] ([id number]) [address] [place] [address] 82740 XR ANKLE RT MIN 3 VWSon XR ANKLE RT MIN 3 VWS XR ANKLE RT MIN 3 VWS XR ANKLE RT MIN 3 VWS: 08/17/2023 3:34 PM Clinical: Injury with ankle swelling EXAM: RIGHT ANKLE RADIOGRAPHS Comparison: none Views: 3 Findings: There is marked lateral soft tissue swelling. Bony osteopenia. There is no acute fracture, dislocation,or destructive lesion. Normal ankle mortice. Impression: * No acute fracture. Finalized by Marino Mills MD on 08/17/2023 4:15 PM Normal [facility] XR CHEST 1 VWon 08-17-2023 XR CHEST 1 VW XR CHEST 1 VW Clinical history: Transient alteration in awareness, status post acute fall today. Comparisons: 07/13/2023. Findings: AP portable upright chest radiograph obtained 3:31 PM. There is some linear parenchymal scarring in the lingula unchanged. Areas of likely pleural/parenchymal scarring in the right mid to upper lung are also stable. Heart size and pulmonary vasculature appear within normal limits. No focal pulmonary parenchymal consolidation. No pleural effusion nor pneumothorax. Elevation of right hemidiaphragm is a stable finding in this patient. Lower cervical fusion again noted. IMPRESSION: 1. Chronic findings as above; no evidence for acute cardiopulmonary disease. Finalized by Shoshana Colon MD on 08/17/2023 4:15 PM Normal [facility] URINE CULTUREon 08-06-2023 Bacteria identified Cx Nom (U) SPECIMEN NOTES URINE RECEIVED WITHOUT PRESERVATIVE CULTURE RESULTS >100,000 ORGANISMS/mL CITROBACTER FREUNDII Organism: CITROBACTER FREUNDII Antibiotic Interpretation ALEX Status CEFAZOLIN R >=64 F CEFTRIAXONE S <=1 F CIPROFLOXACIN S <=0.25 F GENTAMICIN S <=1 F LEVOFLOXACIN S <=0.12 F NITROFURANTOIN S <=16 F PIPERACIL/TAZOBACTAM S <=4 F TOBRAMYCIN S <=1 F TRIMETH/SULFAMETHOXA ZOLE S <=1/19 F Susceptible [facility] Comment on above: Performed By: #### 6 30-4 #### [facility] ([id number]) [address] [place] [address], [address] [place] [address] Alpha Fetoproteinon 08-05-20 23 Alpha Fetoprotein 1.4 ug/L Normal <8.4 [facility] Comment on above: Result Comment: The Ji ECLIA assay is used. Results obtained with different assay methods cannot be used interchangeably. Performed By: #### U A #### [facility] [address] [place] [address] [place] [address] Patient Intake Representative: Adonis Aleman MD PTon 08-04-2023 INR Coag (PPP) [Relative time] 0.9 {INR} Normal [facility] Comment on above: Result Comment: Therapeutic Range: Moderate Anticoagulant Intensity: INR = 2.0-3.0 High Anticoagulant Intensity: INR = 2.5-3.5 Performed By: #### U A #### [facility] [address] [place] [address] Patient Intake Representative: Adonis Aleman MD PT Coag (PPP) [Time] 12.4 s Normal 11.9-14.8 [facility] Comment on above: Performed By: #### U A #### [facility] [address] [place] [address] Patient Intake Representative: Adonis Aleman MD Cult,Urineon 05-08-2023 Cult,Urine Specimen Description .VOIDED URINE Culture ESCHERICHIA COLI >100,000 CFU/ML Report Status FINAL 05/08/2023 SUSCEPTIBILITY Organism ESCHERICHIA COLI Method ALEX Ampicillin 16 INTERMEDIATE Cefazolin <=4 SUSCEPTIBLE Cefazolin sensitivity results can be used to predict the effectiveness of oral cephalosporins (eg. Cephalexin) in uncomplicated Urinary Tract Infections due to E. coli, K. pneumoniae, and P. mirabilis Ceftriaxone <=0.25 SUSCEPTIBLE ESBL NEGATIVE Gentamicin <=1 SUSCEPTIBLE Levofloxacin <=0.12 SUSCEPTIBLE Nitrofurantoin <=16 SUSCEPTIBLE Piperacillin/Tazobac peguero <=4 SUSCEPTIBLE Tobramycin <=1 SUSCEPTIBLE Trimethoprim/Sulfa <=20 SUSCEPTIBLE Susceptible [facility] Comment on above: Performed By: #### G LYHGB #### [address] [address] Patient Intake Representative: Jarred Garcia MD Magnesiumon 04-29-2023 Magnesium [Mass/Vol] 1.4 mg/dL Low 1.6-2.6 [facility] Comment on above: Performed By: #### U A #### [facility] [address] [place] [address] Patient Intake Representative: Adonis Aleman MD Magnesiumon 04-21-2023 Magnesium [Mass/Vol] 1.4 mg/dL Low 1.6-2.6 [facility] Comment on above: Performed By: #### C P, MG #### [facility] [address] [place] [address] Patient Intake Representative: Adonis Aleman MD Basic Metabolic Profon 04-15 Anion gap [Moles/Vol] 7 mmol/L Low 9-17 [facility] Comment on above: Performed By: #### G LYHGB #### [facility] [address] [place] [address] Patient Intake Representative: Jarred Garcia MD BUN/CRE Ratio 12 Normal 9-20 [facility] Comment on above: Performed By: #### G LYHGB #### [address] [place] [place] [address] Patient Intake Representative: Jarred Garcia MD Calcium [Mass/Vol] 8.9 mg/dL Normal 8.6-10.4 [facility] Comment on above: Performed By: #### G LYHGB #### [address] [address] Patient Intake Representative: Jarred Garcia MD Chloride [Moles/Vol] 98 mmol/L Normal 98-107 [facility] Comment on above: Performed By: #### G LYHGB #### [address] [address] Patient Intake Representative: Jarred Garcia MD CO2 [Moles/Vol] 28 mmol/L Normal 20-31 [facility] Comment on above: Performed By: #### G LYHGB #### [address] [address] Patient Intake Representative: Jarred Garcia MD Creatinine [Mass/Vol] 1.1 mg/dL High 0.5-0.9 [facility] Comment on above: Performed By: #### G LYHGB #### [address] [address] Patient Intake Representative: Jarred Garcia MD GFR/1.73 sq M.predicted among non-blacks MDRD (S/P/Bld) [Vol rate/Area] 55 mL/min/{1.73_m2} Low >60 [facility] Comment on above: Result Comment: These results are not intended for use in patients <18 years of age. eGFR results are calculated without a race factor using the 2020 CKD-EPI equation. Careful clinical correlation is recommended, particularly when comparing to results calculated using previous equations. The CKD-EPI equation is less accurate in patients with extremes of muscle mass, extra-renal metabolism of creatine, excessive creatine ingestion, or following therapy that affects renal tubular secretion. Performed By: #### G LYHGB #### [facility] [address] [place] [address] Patient Intake Representative: Jarred Garcia MD Glucose [Mass/Vol] 173 mg/dL High 70-99 [facility] Comment on above: Performed By: #### G LYHGB #### [facility] [address] [place] [address] Patient Intake Representative: Jarred Garcia MD Potassium [Moles/Vol] 5.1 mmol/L Normal 3.7-5.3 [facility] Comment on above: Performed By: #### G LYHGB #### [facility] [address] [place] [address] Patient Intake Representative: Jarred Garcia MD Sodium [Moles/Vol] 133 mmol/L Low 135-144 [facility] Comment on above: Performed By: #### G LYHGB #### [facility] [address] [place] [address] Patient Intake Representative: Jarred Garcia MD Urea nitrogen [Mass/Vol] 13 mg/dL Normal 8-23 [facility] Comment on above: Performed By: #### G LYHGB #### [facility] [address] [place] [address] Patient Intake Representative: Jarred Garcia MD Comp Metabolic Profon 2022 Albumin [Mass/Vol] 3.4 g/dL Low 3.5-5.2 [facility] Comment on above: Performed By: #### G LYHGB #### [facility] [address] [place] [address] Patient Intake Representative: Jarred Garcia MD Albumin/Glob Ratio 1.0 Normal 1.0-2.5 [facility] Comment on above: Performed By: #### G LYHGB #### [facility] [employer] [address] [place] [address] Patient Intake Representative: Jarred Garcia MD Alkaline Phos 236 U/L High 35-104 [facility] Comment on above: Performed By: #### G LYHGB #### [facility] [employer] [address] [place] [address] Patient Intake Representative: Jarred Garcia MD ALT [Catalytic activity/Vol] 26 U/L Normal 5-33 [facility] Comment on above: Performed By: #### G LYHGB #### [facility] [employer] [address] [place] [address] Patient Intake Representative: Jarred Garcia MD Anion gap [Moles/Vol] 8 mmol/L Low 9-17 [facility] Comment on above: Performed By: #### G LYHGB #### [address] [address] Patient Intake Representative: Jarred Garcia MD AST [Catalytic activity/Vol] 35 U/L High <32 [facility] Comment on above: Performed By: #### G LYHGB #### [facility] [address] [place] [address] Patient Intake Representative: Jarred Garcia MD Bilirubin [Mass/Vol] 0.3 mg/dL Normal 0.3-1.2 [facility] Comment on above: Performed By: #### G LYHGB #### [facility] [employer] [address] [place] [address] Patient Intake Representative: Jarred Garcia MD BUN/CRE Ratio 14 Normal 9-20 [facility] Comment on above: Performed By: #### G LYHGB #### [address] [address] Patient Intake Representative: Jarred Garcia MD Calcium [Mass/Vol] 9.0 mg/dL Normal 8.6-10.4 [facility] Comment on above: Performed By: #### G LYHGB #### [facility] [address] [place] [address] Patient Intake Representative: Jarred Garcia MD Chloride [Moles/Vol] 96 mmol/L Low 98-107 [facility] Comment on above: Performed By: #### G LYHGB #### [facility] [address] [place] [address] Patient Intake Representative: Jarred Garcia MD CO2 [Moles/Vol] 28 mmol/L Normal 20-31 [facility] Comment on above: Performed By: #### G LYHGB #### [facility] [employer] [address] [place] [address] Patient Intake Representative: Jarred Garcia MD Creatinine [Mass/Vol] 1.1 mg/dL High 0.5-0.9 [facility] Comment on above: Performed By: #### G LYHGB #### [facility] [employer] [address] [place] [address] Patient Intake Representative: Jarred Garcia MD GFR/1.73 sq M.predicted among non-blacks MDRD (S/P/Bld) [Vol rate/Area] 55 mL/min/{1.73_m2} Low >60 [facility] Comment on above: Result Comment: These results are not intended for use in patients <18 years of age. eGFR results are calculated without a race factor using the 2020 CKD-EPI equation. Careful clinical correlation is recommended, particularly when comparing to results calculated using previous equations. The CKD-EPI equation is less accurate in patients with extremes of muscle mass, extra-renal metabolism of creatine, excessive creatine ingestion, or following therapy that affects renal tubular secretion. Performed By: #### G LYHGB #### [facility] [employer] [facility] [place] [address] Patient Intake Representative: Jarred Garcia MD Glucose [Mass/Vol] 271 mg/dL High 70-99 [facility] Comment on above: Performed By: #### G LYHGB #### [facility] [address] [place] [phone] Patient Intake Representative: Jarred Garcia MD Potassium [Moles/Vol] 5.0 mmol/L Normal 3.7-5.3 [facility] Comment on above: Performed By: #### G LYHGB #### [facility] [address] [place] [address] Patient Intake Representative: Jarred Garcia MD Protein [Mass/Vol] 6.9 g/dL Normal 6.4-8.3 [facility] Comment on above: Performed By: #### G LYHGB #### [address] [address] Patient Intake Representative: Jarred Garcia MD Sodium [Moles/Vol] 132 mmol/L Low 135-144 [facility] Comment on above: Performed By: #### G LYHGB #### [address] [id number] Patient Intake Representative: Jarred Garcia MD Urea nitrogen [Mass/Vol] 15 mg/dL Normal 8-23 [facility] Comment on above: Performed By: #### G LYHGB #### [address] [address] Patient Intake Representative: Jarred Garcia MD Magnesiumon 4 Magnesium [Mass/Vol] 2.8 mg/dL High 1.6-2.6 [facility] Comment on above: Performed By: #### G LYHGB #### [facility] [address] [place] [address] Patient Intake Representative: Jarred Garcia MD Magnesium [Mass/Vol] 1.3 mg/dL Critically low 1.6-2.6 [facility] Comment on above: Performed By: #### C P, MG #### [facility] [address] [place] [address] Patient Intake Representative: Adonis Aleman MD Comp Metabolic Profon 2022 Albumin [Mass/Vol] 3.4 g/dL Low 3.5-5.2 [facility] Comment on above: Performed By: #### C P, MG #### [facility] [address] [place], [place] [phone] Patient Intake Representative: Adonis Aleman MD Albumin/Glob Ratio 1.1 Normal 1.0-2.5 [facility] Comment on above: Performed By: #### C P, MG #### [facility] [address] [place], [place] [phone] Patient Intake Representative: Adonis Aleman MD Alkaline Phos 220 U/L High 35-104 [facility] Comment on above: Performed By: #### C P, MG #### [facility] [address] [place], [place] [phone] Patient Intake Representative: Adonis Aleman MD ALT [Catalytic activity/Vol] 28 U/L Normal 5-33 [facility] Comment on above: Performed By: #### C P, MG #### [facility] [address] [place] [address] [place], [place] [phone] Patient Intake Representative: Adonis Aleman MD Anion gap [Moles/Vol] 7 mmol/L Low 9-17 [facility] Comment on above: Performed By: #### C P, MG #### [address] [place] [address] Patient Intake Representative: Adonis Aleman MD AST [Catalytic activity/Vol] 40 U/L High <32 [facility] Comment on above: Performed By: #### C P, MG #### [facility] [address] [place], [place] [phone] Patient Intake Representative: Adonis Aleman MD Bilirubin [Mass/Vol] 0.3 mg/dL Normal 0.3-1.2 [facility] Comment on above: Performed By: #### C P, MG #### [facility] [address] [place] [address] [place], [place] [phone] Patient Intake Representative: Adonis Aleman MD BUN/CRE Ratio 12 Normal 9-20 [facility] Comment on above: Performed By: #### C P, MG #### [facility] [address] [place] [address] Patient Intake Representative: Adonis Aleman MD Calcium [Mass/Vol] 9.3 mg/dL Normal 8.6-10.4 [facility] Comment on above: Performed By: #### C P, MG #### [facility] [address] [place] [address] Patient Intake Representative: Adonis Aleman MD Chloride [Moles/Vol] 97 mmol/L Low 98-107 [facility] Comment on above: Performed By: #### C P, MG #### [facility] [address] [place], [place] [phone] Patient Intake Representative: Adonis Aleman MD CO2 [Moles/Vol] 29 mmol/L Normal 20-31 [facility] Comment on above: Performed By: #### C P, MG #### [facility] [address] [place] [address] Patient Intake Representative: Adonis Aleman MD Creatinine [Mass/Vol] 1.1 mg/dL High 0.5-0.9 [facility] Comment on above: Performed By: #### C P, MG #### [facility] [address] [place] [address] Patient Intake Representative: Adonis Aleman MD GFR/1.73 sq M.predicted among non-blacks MDRD (S/P/Bld) [Vol rate/Area] 55 mL/min/{1.73_m2} Low >60 [facility] Comment on above: Result Comment: These results are not intended for use in patients <18 years of age. eGFR results are calculated without a race factor using the 2020 CKD-EPI equation. Careful clinical correlation is recommended, particularly when comparing to results calculated using previous equations. The CKD-EPI equation is less accurate in patients with extremes of muscle mass, extra-renal metabolism of creatine, excessive creatine ingestion, or following therapy that affects renal tubular secretion. Performed By: #### C P, MG #### [facility] [address] [place] [address] Patient Intake Representative: Adonis Aleman MD Glucose [Mass/Vol] 184 mg/dL High 70-99 [facility] Comment on above: Performed By: #### C P, MG #### [facility] [address] [place] [address] Patient Intake Representative: Adonis Aleman MD Potassium [Moles/Vol] 4.8 mmol/L Normal 3.7-5.3 [facility] Comment on above: Performed By: #### C P, MG #### [facility] [address] [place] [address] Patient Intake Representative: Adonis Aleman MD Protein [Mass/Vol] 6.6 g/dL Normal 6.4-8.3 [facility] Comment on above: Performed By: #### C P, MG #### [facility] [address] [place] [address] [place] [address] Patient Intake Representative: Adonis Aleman MD Sodium [Moles/Vol] 133 mmol/L Low 135-144 [facility] Comment on above: Performed By: #### C P, MG #### [facility] [address] [place], [place] [phone] Patient Intake Representative: Adonis Aleman MD Urea nitrogen [Mass/Vol] 13 mg/dL Normal 8-23 [facility] Comment on above: Performed By: #### C P, MG #### [facility] [address] [place] [address] Patient Intake Representative: Adonis Aleman MD Magnesiumon 04-10-2023 Magnesium [Mass/Vol] 1.4 mg/dL Low 1.6-2.6 [facility] Comment on above: Performed By: #### C P, MG #### [facility] [address] [place] [address] Patient Intake Representative: Adonis Aleman MD CBC with Diffon 04-03-2023 Abs. Basophil <0.03 Normal 0.00-0.20 [facility] Comment on above: Performed By: #### G LYHGB #### [address] [address] Patient Intake Representative: Jarred Garcia MD Abs.Imm.Granulocyte <0.03 Normal 0.00-0.30 [facility] Comment on above: Performed By: #### G LYHGB #### [address] [address] Patient Intake Representative: Jarred Garcia MD Abs.Neutrophil (Seg) 2.46 k/uL Normal 1.50-8.10 [facility] Comment on above: Performed By: #### G LYHGB #### [address] [address] Patient Intake Representative: Jarred Garcia MD Basophils/100 WBC (Bld) 1 % Normal 0-2 [facility] Comment on above: Performed By: #### G LYHGB #### [address] [address] Patient Intake Representative: Jarred Garcia MD Eosinophils (Bld) [#/Vol] 0.04 10*3/uL Normal 0.00-0.44 [facility] Comment on above: Performed By: #### G LYHGB #### [address] [address] Patient Intake Representative: Jarred Garcia MD Eosinophils/100 WBC (Bld) 1 % Normal 1-4 [facility] Comment on above: Performed By: #### G LYHGB #### [address] [address] Patient Intake Representative: Jarred Garcia MD Erythrocyte distribution width (RBC) [Ratio] 15.0 % High 11.8-14.4 [facility] Comment on above: Performed By: #### G LYHGB #### [address] [address] Patient Intake Representative: Jarred Garcia MD Hematocrit (Bld) [Volume fraction] 34.2 % Low 36.3-47.1 [facility] Comment on above: Performed By: #### G LYHGB #### [place] [address] Patient Intake Representative: Jarred Garcia MD Hemoglobin (Bld) [Mass/Vol] 10.9 g/dL Low 11.9-15.1 [facility] Comment on above: Performed By: #### G LYHGB #### [place] [address] Patient Intake Representative: Jarred Garcia MD Immature granulocytes/100 WBC (Bld) 1 % High 0 [facility] Comment on above: Performed By: #### G LYHGB #### [address] [address] Patient Intake Representative: Jarred Garcia MD Lymphocytes (Bld) [#/Vol] 1.52 10*3/uL Normal 1.10-3.70 [facility] Comment on above: Performed By: #### G LYHGB #### [place] [address] Patient Intake Representative: Jarred Garcia MD Lymphocytes/100 WBC (Bld) 35 % Normal 24-43 [facility] Comment on above: Performed By: #### G LYHGB #### [place] [address] Patient Intake Representative: Jarred Garcia MD MCH (RBC) [Entitic mass] 29.7 pg Normal 25.2-33.5 [facility] Comment on above: Performed By: #### G LYHGB #### [address] [place] [address] Patient Intake Representative: Jarred Garcia MD MCHC (RBC) [Mass/Vol] 31.9 g/dL Normal 28.4-34.8 [facility] Comment on above: Performed By: #### G LYHGB #### [address] [address] Patient Intake Representative: Jarred Garcia MD MCV (RBC) [Entitic vol] 93.2 fL Normal 82.6-102.9 [facility] Comment on above: Performed By: #### G LYHGB #### [address] [address] Patient Intake Representative: Jarred Garcia MD Monocytes (Bld) [#/Vol] 0.30 10*3/uL Normal 0.10-1.20 [facility] Comment on above: Performed By: #### G LYHGB #### [address] [address] Patient Intake Representative: Jarred Garcia MD Monocytes/100 WBC (Bld) 7 % Normal 3-12 [facility] Comment on above: Performed By: #### G LYHGB #### [address] [address] Patient Intake Representative: Jarred Garcia MD Neutrophil (Seg) 55 % Normal 36-65 [facility] Comment on above: Performed By: #### G LYHGB #### [address] [address] Patient Intake Representative: Jarred Garcia MD NRBC Automated 0.0 per 100 WBC Normal 0.0 [facility] Comment on above: Performed By: #### G LYHGB #### [address] [address] Patient Intake Representative: Jarred Garcia MD Platelet mean volume (Bld) [Entitic vol] 10.3 fL Normal 8.1-13.5 [facility] Comment on above: Performed By: #### G LYHGB #### [facility] [address] [place] [address] Patient Intake Representative: Jarred Garcia MD Platelets (Bld) [#/Vol] 104 10*3/uL Low 138-453 [facility] Comment on above: Performed By: #### G LYHGB #### [facility] [address] [place] [address] Patient Intake Representative: Jarred Garcia MD RBC (Bld) [#/Vol] 3.67 10*6/uL Low 3.95-5.11 [facility] Comment on above: Performed By: #### G LYHGB #### [address] [address] Patient Intake Representative: Jarred Garcia MD WBC (Bld) [#/Vol] 4.4 10*3/uL Normal 3.5-11.3 [facility] Comment on above: Performed By: #### G LYHGB #### [address] [address] Patient Intake Representative: Jarred Garcia MD Comp Metabolic Profon 2022 Albumin [Mass/Vol] 3.3 g/dL Low 3.5-5.2 [facility] Comment on above: Performed By: #### G LYHGB #### [facility] [employer] [address] [place] [address] Patient Intake Representative: Jarred Garcia MD Albumin/Glob Ratio 0.9 Low 1.0-2.5 [facility] Comment on above: Performed By: #### G LYHGB #### [facility] [employer] [address] [place] [address] Patient Intake Representative: Jarred Garcia MD Alkaline Phos 236 U/L High 35-104 [facility] Comment on above: Performed By: #### G LYHGB #### [facility] [employer] [address] [place] [address] Patient Intake Representative: Jarred Garcia MD ALT [Catalytic activity/Vol] 21 U/L Normal 5-33 [facility] Comment on above: Performed By: #### G LYHGB #### [facility] [address] [place] [address] Patient Intake Representative: Jarred Garcia MD Anion gap [Moles/Vol] 9 mmol/L Normal 9-17 [facility] Comment on above: Performed By: #### G LYHGB #### [facility] [address] [place] [address] Patient Intake Representative: Jarred Garcia MD AST [Catalytic activity/Vol] 28 U/L Normal <32 [facility] Comment on above: Performed By: #### G LYHGB #### [address] [address] Patient Intake Representative: Jarred Garcia MD Bilirubin [Mass/Vol] 0.4 mg/dL Normal 0.3-1.2 [facility] Comment on above: Performed By: #### G LYHGB #### [address] [address] Patient Intake Representative: Jarred Garcia MD BUN/CRE Ratio 17 Normal 9-20 [facility] Comment on above: Performed By: #### G LYHGB #### [address] [address] Patient Intake Representative: Jarred Garcia MD Calcium [Mass/Vol] 8.8 mg/dL Normal 8.6-10.4 [facility] Comment on above: Performed By: #### G LYHGB #### [address] [address] Patient Intake Representative: Jarred Garcia MD Chloride [Moles/Vol] 98 mmol/L Normal 98-107 [facility] Comment on above: Performed By: #### G LYHGB #### [facility] [employer] [address] [place] [address] Patient Intake Representative: Jarred Garcia MD CO2 [Moles/Vol] 27 mmol/L Normal 20-31 [facility] Comment on above: Performed By: #### G LYHGB #### [facility] [address] [place] [address] Patient Intake Representative: Jarred Garcia MD Creatinine [Mass/Vol] 1.2 mg/dL High 0.5-0.9 [facility] Comment on above: Performed By: #### G LYHGB #### [facility] [employer] [address] [place] [address] Patient Intake Representative: Jarred Garcia MD GFR/1.73 sq M.predicted among non-blacks MDRD (S/P/Bld) [Vol rate/Area] 49 mL/min/{1.73_m2} Low >60 [facility] Comment on above: Result Comment: These results are not intended for use in patients <18 years of age. eGFR results are calculated without a race factor using the 2020 CKD-EPI equation. Careful clinical correlation is recommended, particularly when comparing to results calculated using previous equations. The CKD-EPI equation is less accurate in patients with extremes of muscle mass, extra-renal metabolism of creatine, excessive creatine ingestion, or following therapy that affects renal tubular secretion. Performed By: #### G LYHGB #### [facility] [address] [place] [address] Patient Intake Representative: Jarred Garcia MD Glucose [Mass/Vol] 146 mg/dL High 70-99 [facility] Comment on above: Performed By: #### G LYHGB #### [facility] [address] [place] [address] Patient Intake Representative: Jarred Garcia MD Potassium [Moles/Vol] 4.8 mmol/L Normal 3.7-5.3 [facility] Comment on above: Performed By: #### G LYHGB #### [facility] [place] [address] Patient Intake Representative: Jarred Garcia MD Protein [Mass/Vol] 6.8 g/dL Normal 6.4-8.3 [facility] Comment on above: Performed By: #### G LYHGB #### [facility] [address] [place], [place] [phone] Patient Intake Representative: Jarred Garcia MD Sodium [Moles/Vol] 134 mmol/L Low 135-144 [facility] Comment on above: Performed By: #### G LYHGB #### [facility] [address] [place], [place] [id number] Patient Intake Representative: Jarred Garcia MD Urea nitrogen [Mass/Vol] 20 mg/dL Normal 8-23 [facility] Comment on above: Performed By: #### G LYHGB #### [employer] [address] [place], [place] [phone] Patient Intake Representative: Jarred Garcia MD CBC with Auto Differentialon 04-01-2023 Basophils (Bld) [#/Vol] B ON [facility] Basophils/100 WBC (Bld) 0 % 0 - 2 % B ON [facility] Eosinophils (Bld) [#/Vol] 0.05 10*3/uL [facility] Eosinophils/100 WBC (Bld) 1 % 1 - 4 % [facility] Erythrocyte distribution width (RBC) [Ratio] 15.0 % High 11.8 - 14.4 % [facility] Hematocrit (Bld) [Volume fraction] 39.2 % 36.3 - 47.1 % [facility] Hemoglobin (Bld) [Mass/Vol] 12.4 g/dL 11.9 - 15.1 g/dL [facility] Immature granulocytes (Bld) [#/Vol] [facility] Immature granulocytes/100 WBC (Bld) 0 % 0 [facility] Interpretation and review of laboratory results Abnormal [facility] Lymphocytes/100 WBC (Bld) 21 % Low 24 - 43 % [facility] Lymphocytes/100 WBC (Bld) 1.11 % [facility] MCH (RBC) [Entitic mass] 29.7 pg 25. 2 - 33.5 pg [facility] MCHC (RBC) [Mass/Vol] 31.6 g/dL 28.4 - 34.8 g/dL [facility] MCV (RBC) [Entitic vol] 93.8 fL 82.6 - 102.9 fL [facility] Monocytes/100 WBC (Bld) 8 % 3 - 12 % [facility] Monocytes/100 WBC (Bld) 0.42 % [facility] Neutrophils/100 WBC (Bld) 70 % High 36 - 65 % [facility] Nucleated RBC/100 WBC (Bld) [Ratio] 0.0 % 0.0 per 100 WBC [facility] Platelet mean volume (Bld) [Entitic vol] 10.1 fL 8.1 - 13.5 fL [facility] Platelets (Bld) [#/Vol] 128 10*3/uL Low [facility] RBC (Bld) [#/Vol] 4.18 10*6/uL 3.95 - 5.1 1 m/uL [facility] Segmented neutrophils/100 WBC (Bld) 3.69 % [facility] WBC other (Bld) [#/Vol] 5.3 B [facility] CBC with Diffon 04-01-2023 Abs. Basophil <0.03 Normal 0.00-0.20 [facility] Comment on above: Performed By: #### C P, MG #### [facility] [address] [place] [address] Patient Intake Representative: Adonis Aleman MD Abs.Imm.Granulocyte <0.03 Normal 0.00-0.30 [facility] Comment on above: Performed By: #### C P, MG #### [facility] [address] [place] [address] Patient Intake Representative: Adonis Aleman MD Abs.Neutrophil (Seg) 3.69 k/uL Normal 1.50-8.10 [facility] Comment on above: Performed By: #### C P, MG #### [facility] [address] [place], [place] [phone] Patient Intake Representative: Adonis Aleman MD Basophils/100 WBC (Bld) 0 % Normal 0-2 [facility] Comment on above: Performed By: #### C P, MG #### [address] [place], [place] [phone] Patient Intake Representative: Adonis Aleman MD Eosinophils (Bld) [#/Vol] 0.05 10*3/uL Normal 0.00-0.44 [facility] Comment on above: Performed By: #### C P, MG #### [address] [place], [facility]83 Patient Intake Representative: Adonis Aleman MD Eosinophils/100 WBC (Bld) 1 % Normal 1-4 [facility] Comment on above: Performed By: #### C P, MG #### [address] [place], [facility]83 Patient Intake Representative: Adonis Aleman MD Erythrocyte distribution width (RBC) [Ratio] 15.0 % High 11.8-14.4 [facility] Comment on above: Performed By: #### C P, MG #### [address] [place], [facility]83 Patient Intake Representative: Adonis Aleman MD Hematocrit (Bld) [Volume fraction] 39.2 % Normal 36.3-47.1 [facility] Comment on above: Performed By: #### C P, MG #### [address] [place], [facility]83 Patient Intake Representative: Adonis Aleman MD Hemoglobin (Bld) [Mass/Vol] 12.4 g/dL Normal 11.9-15.1 [facility] Comment on above: Performed By: #### C P, MG #### [address] [place], [facility]83 Patient Intake Representative: Adonis Aleman MD Immature granulocytes/100 WBC (Bld) 0 % Normal 0 [facility] Comment on above: Performed By: #### C P, MG #### [facility] [address] [place], [place] [phone] Patient Intake Representative: Adonis Aleman MD Lymphocytes (Bld) [#/Vol] 1.11 10*3/uL Normal 1.10-3.70 [facility] Comment on above: Performed By: #### C P, MG #### [facility] [address] [place], [place] [phone] Patient Intake Representative: Adonis Aleman MD Lymphocytes/100 WBC (Bld) 21 % Low 24-43 [facility] Comment on above: Performed By: #### C P, MG #### [address] [place], [facility]83 Patient Intake Representative: Adonis Aleman MD MCH (RBC) [Entitic mass] 29.7 pg Normal 25.2-33.5 [facility] Comment on above: Performed By: #### C P, MG #### [address] [place], [place] [phone] Patient Intake Representative: Adonis Aleman MD MCHC (RBC) [Mass/Vol] 31.6 g/dL Normal 28.4-34.8 [facility] Comment on above: Performed By: #### C P, MG #### [address] [place], [place] [phone] Patient Intake Representative: Adonis Aleman MD MCV (RBC) [Entitic vol] 93.8 fL Normal 82.6-102.9 [facility] Comment on above: Performed By: #### C P, MG #### [address] [place] [address] Patient Intake Representative: Adonis Aleman MD Monocytes (Bld) [#/Vol] 0.42 10*3/uL Normal 0.10-1.20 [facility] Comment on above: Performed By: #### C P, MG #### [facility] [address] [place], [facility]83 Patient Intake Representative: Adonis Aleman MD Monocytes/100 WBC (Bld) 8 % Normal 3-12 [facility] Comment on above: Performed By: #### C P, MG #### [facility] [address] [place], [facility]83 Patient Intake Representative: Adonis Aleman MD Neutrophil (Seg) 70 % High 36-65 [facility] Comment on above: Performed By: #### C P, MG #### [address] [place], [facility]83 Patient Intake Representative: Adonis Aleman MD NRBC Automated 0.0 per 100 WBC Normal 0.0 [facility] Comment on above: Performed By: #### C P, MG #### [address] [place], [facility]83 Patient Intake Representative: Adonis Aleman MD Platelet mean volume (Bld) [Entitic vol] 10.1 fL Normal 8.1-13.5 [facility] Comment on above: Performed By: #### C P, MG #### [address] [place], [place] [address] Patient Intake Representative: Adonis Aleman MD Platelets (Bld) [#/Vol] 128 10*3/uL Low 138-453 [facility] Comment on above: Performed By: #### C P, MG #### [address] [place], [facility] Patient Intake Representative: Adonis Aleman MD RBC (Bld) [#/Vol] 4.18 10*6/uL Normal 3.95-5.11 [facility] Comment on above: Performed By: #### C P, MG #### [facility] [address] [place] [address] Patient Intake Representative: Adonis Aleman MD WBC (Bld) [#/Vol] 5.3 10*3/uL Normal 3.5-11.3 [facility] Comment on above: Performed By: #### C P, MG #### [facility] [address] [place] [address] Patient Intake Representative: Adonis Aleman MD CT CERVICAL SPINE WO CONTRAS Ton 04-01-2023 CT CERVICAL SPINE WO CONTRAST EXAMINATION: CT OF THE CERVICAL SPINE WITHOUT CONTRAST 04/01/2023 3:03 pm TECHNIQUE: CT of the cervical spine was performed without the administration of intravenous contrast. Multiplanar reformatted images are provided for review. Automated exposure control, iterative reconstruction, and/or weight based adjustment of the mA/kV was utilized to reduce the radiation dose to as low as reasonably achievable. COMPARISON: 01/10/2023. HISTORY: ORDERING SYSTEM PROVIDED HISTORY: fall TECHNOLOGIST PROVIDED HISTORY: fall Decision Support Exception - unselect if not a suspected or confirmed emergency medical condition->Emergency Medical Condition (MA) FINDINGS: BONES/ALIGNMENT: There is normal spinal alignment. C1 and C2 have normal relationship on this study. Prior anterior metallic fusion discectomy from C5 through C7 appears stable with no loosening of the hardware. The disc spaces appear fused. No fracture is identified. DEGENERATIVE CHANGES: There is mild degenerative disc disease at C3-C4 and C4-C5. There is mild multilevel facet arthropathy. SOFT TISSUES: There is no prevertebral soft tissue swelling. IMPRESSION: 1. No acute cervical spine fracture 2. Stable postoperative changes related to anterior metallic fusion and discectomies from C5 through C7 with no evident hardware complication. Interpreted by: Stephen Feldman MD Signed by: Stephen Feldman MD 04/01/23 Final result Normal [facility] CT CHEST ABDOMEN PELVIS WO C ONTRASTon 04-01-2023 CT CHEST ABDOMEN PELVIS WO CONTRAST EXAMINATION: CT OF THE CHEST, ABDOMEN, AND PELVIS WITHOUT CONTRAST 04/01/2023 5:04 pm TECHNIQUE: CT of the chest, abdomen and pelvis was performed without the administration of intravenous contrast. Multiplanar reformatted images are provided for review. Automated exposure control, iterative reconstruction, and/or weight based adjustment of the mA/kV was utilized to reduce the radiation dose to as low as reasonably achievable. COMPARISON: Chest CT 02/25/[address] of the abdomen and pelvis 02/24/2023. HISTORY: ORDERING SYSTEM PROVIDED HISTORY: fall, left rib pain, Left mid and upper abdominal pain TECHNOLOGIST PROVIDED HISTORY: fall, left rib pain, Left mid and upper abdominal pain Decision Support Exception - unselect if not a suspected or confirmed emergency medical condition->Emergency Medical Condition (MA) FINDINGS: Chest: Mediastinum: Thoracic aorta is normal in caliber. There is no lymphadenopathy or mediastinal hematoma. The heart is not enlarged. There is no pericardial fluid. Lungs/pleura: There is no pneumothorax or hemothorax. There are no confluent airspace opacities to suggest lung contusion. There is dependent atelectasis in the lower lobes. Mild linear opacities likely reflect atelectasis. Soft Tissues/Bones: There is normal spinal alignment. Vertebral body heights appear normal. There are subacute fractures anteriorly at the 3rd through 5th ribs and posteriorly at the 5th through 8th ribs. No acute fracture is identified. Abdomen/Pelvis: Organs: The liver is again nodular and there is hypertrophy of the left lobe. Gallstones are again noted the gallbladder which is contracted. The spleen, adrenal glands, pancreas and kidneys are unremarkable. GI/Bowel: No bowel dilatation or bowel wall thickening is identified. The stomach is unremarkable. Pelvis: The bladder is intact. The uterus appears normal. There is no abnormal adnexal mass or free fluid. Peritoneum/Retroperi toneum: No evidence of lymphadenopathy. Aorta is normal in caliber. No fat stranding, free fluid, free air or focal fluid collection is identified. Bones/Soft Tissues: A previously treated L3 compression fracture appears stable. There is no acute fracture. There is subcutaneous fat stranding lateral to the left hip. IMPRESSION: 1. Subcutaneous fat stranding lateral flow left hip which could reflect soft tissue contusion. Elsewhere, there is no CT evidence of acute injury in the chest, abdomen or pelvis. 2. Stable subacute left rib fractures. 3. Hepatic cirrhosis. 4. Cholelithiasis. Interpreted by: Stephen Feldman MD Signed by: Stephen Feldman MD 04/01/23 Final result Normal [facility] CT CHEST ABDOMEN PELVIS WO C ONTRAST Additional Contrast? Noneon 04-01-2023 1. Subcutaneous fat stranding lateral flow left hip which could reflect soft tissue contusion. Elsewhere, there is no CT evidence of acute injury in the chest, abdomen or pelvis. 2. Stable subacute left rib fractures. 3. Hepatic cirrhosis. 4. Cholelithiasis. [facility] RIS CONSOLIDATED EXAMINATION: CT OF THE CHEST, ABDOMEN, AND PELVIS WITHOUT CONTRAST 04/01/2023 5:04 pm TECHNIQUE: CT of the chest, abdomen and pelvis was performed without the administration of intravenous contrast. Multiplanar reformatted images are provided for review. Automated exposure control, iterative reconstruction, and/or weight based adjustment of the mA/kV was utilized to reduce the radiation dose to as low as reasonably achievable. COMPARISON: Chest CT 02/25/[address] of the abdomen and pelvis 02/24/2023. HISTORY: ORDERING SYSTEM PROVIDED HISTORY: fall, left rib pain, Left mid and upper abdominal pain TECHNOLOGIST PROVIDED HISTORY: fall, left rib pain, Left mid and upper abdominal pain Decision Support Exception - unselect if not a suspected or confirmed emergency medical condition->Emergency Medical Condition (MA) FINDINGS: Chest: Mediastinum: Thoracic aorta is normal in caliber. There is no lymphadenopathy or mediastinal hematoma. The heart is not enlarged. There is no pericardial fluid. Lungs/pleura: There is no pneumothorax or hemothorax. There are no confluent airspace opacities to suggest lung contusion. There is dependent atelectasis in the lower lobes. Mild linear opacities likely reflect atelectasis. Soft Tissues/Bones: There is normal spinal alignment. Vertebral body heights appear normal. There are subacute fractures anteriorly at the 3rd through 5th ribs and posteriorly at the 5th through 8th ribs. No acute fracture is identified. Abdomen/Pelvis: Organs: The liver is again nodular and there is hypertrophy of the left lobe. Gallstones are again noted the gallbladder which is contracted. The spleen, adrenal glands, pancreas and kidneys are unremarkable. GI/Bowel: No bowel dilatation or bowel wall thickening is identified. The stomach is unremarkable. Pelvis: The bladder is intact. The uterus appears normal. There is no abnormal adnexal mass or free fluid. Peritoneum/Retroperi toneum: No evidence of lymphadenopathy. Aorta is normal in caliber. No fat stranding, free fluid, free air or focal fluid collection is identified. Bones/Soft Tissues: A previously treated L3 compression fracture appears stable. There is no acute fracture. There is subcutaneous fat stranding lateral to the left hip. [facility] RIS CONSOLIDATED Stephen Feldman MD - 04/01/2023 EXAMINATION: CT OF THE CHEST, ABDOMEN, AND PELVIS WITHOUT CONTRAST 04/01/2023 5:04 pm TECHNIQUE: CT of the chest, abdomen and pelvis was performed without the administration of intravenous contrast. Multiplanar reformatted images are provided for review. Automated exposure control, iterative reconstruction, and/or weight based adjustment of the mA/kV was utilized to reduce the radiation dose to as low as reasonably achievable. COMPARISON: Chest CT 02/25/[address] of the abdomen and pelvis 02/24/2023. HISTORY: ORDERING SYSTEM PROVIDED HISTORY: fall, left rib pain, Left mid and upper abdominal pain TECHNOLOGIST PROVIDED HISTORY: fall, left rib pain, Left mid and upper abdominal pain Decision Support Exception - unselect if not a suspected or confirmed emergency medical condition->Emergency Medical Condition (MA) FINDINGS: Chest: Mediastinum: Thoracic aorta is normal in caliber. There is no lymphadenopathy or mediastinal hematoma. The heart is not enlarged. There is no pericardial fluid. Lungs/pleura: There is no pneumothorax or hemothorax. There are no confluent airspace opacities to suggest lung contusion. There is dependent atelectasis in the lower lobes. Mild linear opacities likely reflect atelectasis. Soft Tissues/Bones: There is normal spinal alignment. Vertebral body heights appear normal. There are subacute fractures anteriorly at the 3rd through 5th ribs and posteriorly at the 5th through 8th ribs. No acute fracture is identified. Abdomen/Pelvis: Organs: The liver is again nodular and there is hypertrophy of the left lobe. Gallstones are again noted the gallbladder which is contracted. The spleen, adrenal glands, pancreas and kidneys are unremarkable. GI/Bowel: No bowel dilatation or bowel wall thickening is identified. The stomach is unremarkable. Pelvis: The bladder is intact. The uterus appears normal. There is no abnormal adnexal mass or free fluid. Peritoneum/Retroperi toneum: No evidence of lymphadenopathy. Aorta is normal in caliber. No fat stranding, free fluid, free air or focal fluid collection is identified. Bones/Soft Tissues: A previously treated L3 compression fracture appears stable. There is no acute fracture. There is subcutaneous fat stranding lateral to the left hip. IMPRESSION: 1. Subcutaneous fat stranding lateral flow left hip which could reflect soft tissue contusion. Elsewhere, there is no CT evidence of acute injury in the chest, abdomen or pelvis. 2. Stable subacute left rib fractures. 3. Hepatic cirrhosis. 4. Cholelithiasis. [facility] Radiology Study observation (narrative) [facility] CT CSpine W/O Contraston 1. No acute cervical spine fracture 2. Stable postoperative changes related to anterior metallic fusion and discectomies from C5 through C7 with no evident hardware complication. [facility] CONSOLIDATED EXAMINATION: CT OF THE CERVICAL SPINE WITHOUT CONTRAST 04/01/2023 3:03 pm TECHNIQUE: CT of the cervical spine was performed without the administration of intravenous contrast. Multiplanar reformatted images are provided for review. Automated exposure control, iterative reconstruction, and/or weight based adjustment of the mA/kV was utilized to reduce the radiation dose to as low as reasonably achievable. COMPARISON: 01/10/2023. HISTORY: ORDERING SYSTEM PROVIDED HISTORY: fall TECHNOLOGIST PROVIDED HISTORY: fall Decision Support Exception - unselect if not a suspected or confirmed emergency medical condition->Emergency Medical Condition (MA) FINDINGS: BONES/ALIGNMENT: There is normal spinal alignment. C1 and C2 have normal relationship on this study. Prior anterior metallic fusion discectomy from C5 through C7 appears stable with no loosening of the hardware. The disc spaces appear fused. No fracture is identified. DEGENERATIVE CHANGES: There is mild degenerative disc disease at C3-C4 and C4-C5. There is mild multilevel facet arthropathy. SOFT TISSUES: There is no prevertebral soft tissue swelling. [facility] CONSOLIDATED Stephen Feldman MD - 04/01/2023 EXAMINATION: CT OF THE CERVICAL SPINE WITHOUT CONTRAST 04/01/2023 3:03 pm TECHNIQUE: CT of the cervical spine was performed without the administration of intravenous contrast. Multiplanar reformatted images are provided for review. Automated exposure control, iterative reconstruction, and/or weight based adjustment of the mA/kV was utilized to reduce the radiation dose to as low as reasonably achievable. COMPARISON: 01/10/2023. HISTORY: ORDERING SYSTEM PROVIDED HISTORY: fall TECHNOLOGIST PROVIDED HISTORY: fall Decision Support Exception - unselect if not a suspected or confirmed emergency medical condition->Emergency Medical Condition (MA) FINDINGS: BONES/ALIGNMENT: There is normal spinal alignment. C1 and C2 have normal relationship on this study. Prior anterior metallic fusion discectomy from C5 through C7 appears stable with no loosening of the hardware. The disc spaces appear fused. No fracture is identified. DEGENERATIVE CHANGES: There is mild degenerative disc disease at C3-C4 and C4-C5. There is mild multilevel facet arthropathy. SOFT TISSUES: There is no prevertebral soft tissue swelling. IMPRESSION: 1. No acute cervical spine fracture 2. Stable postoperative changes related to anterior metallic fusion and discectomies from C5 through C7 with no evident hardware complication. [facility] Radiology Study observation (narrative) [facility] CT HEAD WO CONTRASTon 2022 CT HEAD WO CONTRAST EXAMINATION: CT OF THE HEAD WITHOUT CONTRAST 04/01/2023 5:03 pm TECHNIQUE: CT of the head was performed without the administration of intravenous contrast. Automated exposure control, iterative reconstruction, and/or weight based adjustment of the mA/kV was utilized to reduce the radiation dose to as low as reasonably achievable. COMPARISON: 02/23/2023. HISTORY: ORDERING SYSTEM PROVIDED HISTORY: fall TECHNOLOGIST PROVIDED HISTORY: fall Decision Support Exception - unselect if not a suspected or confirmed emergency medical condition->Emergency Medical Condition (MA) FINDINGS: BRAIN/VENTRICLES: There is no acute intracranial hemorrhage, mass effect or midline shift. No abnormal extra-axial fluid collection. The mckoy-white differentiation is maintained without evidence of an acute infarct. There is no evidence of hydrocephalus. Volume loss areas of white matter hypoattenuation appears similar to the prior study. The ventricles and sulci are prominent. ORBITS: The visualized portion of the orbits demonstrate no acute abnormality. SINUSES: The visualized paranasal sinuses and mastoid air cells demonstrate no acute abnormality. SOFT TISSUES/SKULL: No acute abnormality of the visualized skull or soft tissues. IMPRESSION: 1. No acute intracranial findings. 2. Volume loss and chronic microvascular ischemic changes. Interpreted by: Stephen Feldman MD Signed by: Stephen Feldman MD 04/01/23 Final result Normal [facility] CT Head W/O Contraston 04-01 1. No acute intracranial findings. 2. Volume loss and chronic microvascular ischemic changes. [facility] RIS CONSOLIDATED EXAMINATION: CT OF THE HEAD WITHOUT CONTRAST 04/01/2023 5:03 pm TECHNIQUE: CT of the head was performed without the administration of intravenous contrast. Automated exposure control, iterative reconstruction, and/or weight based adjustment of the mA/kV was utilized to reduce the radiation dose to as low as reasonably achievable. COMPARISON: 02/23/2023. HISTORY: ORDERING SYSTEM PROVIDED HISTORY: fall TECHNOLOGIST PROVIDED HISTORY: [facility] Decision Support Exception - unselect if not a suspected or confirmed emergency medical condition->Emergency Medical Condition (MA) FINDINGS: BRAIN/VENTRICLES: There is no acute intracranial hemorrhage, mass effect or midline shift. No abnormal extra-axial fluid collection. The mckoy-white differentiation is maintained without evidence of an acute infarct. There is no evidence of hydrocephalus. Volume loss areas of white matter hypoattenuation appears similar to the prior study. The ventricles and sulci are prominent. ORBITS: The visualized portion of the orbits demonstrate no acute abnormality. SINUSES: The visualized paranasal sinuses and mastoid air cells demonstrate no acute abnormality. SOFT TISSUES/SKULL: No acute abnormality of the visualized skull or soft tissues. [facility] RIS CONSOLIDATED Stephen Feldman MD - 04/01/2023 EXAMINATION: CT OF THE HEAD WITHOUT CONTRAST 04/01/2023 5:03 pm TECHNIQUE: CT of the head was performed without the administration of intravenous contrast. Automated exposure control, iterative reconstruction, and/or weight based adjustment of the mA/kV was utilized to reduce the radiation dose to as low as reasonably achievable. COMPARISON: 02/23/2023. HISTORY: ORDERING SYSTEM PROVIDED HISTORY: fall TECHNOLOGIST PROVIDED HISTORY: [facility] Decision Support Exception - unselect if not a suspected or confirmed emergency medical condition->Emergency Medical Condition (MA) FINDINGS: BRAIN/VENTRICLES: There is no acute intracranial hemorrhage, mass effect or midline shift. No abnormal extra-axial fluid collection. The mckoy-white differentiation is maintained without evidence of an acute infarct. There is no evidence of hydrocephalus. Volume loss areas of white matter hypoattenuation appears similar to the prior study. The ventricles and sulci are prominent. ORBITS: The visualized portion of the orbits demonstrate no acute abnormality. SINUSES: The visualized paranasal sinuses and mastoid air cells demonstrate no acute abnormality. SOFT TISSUES/SKULL: No acute abnormality of the visualized skull or soft tissues. IMPRESSION: 1. No acute intracranial findings. 2. Volume loss and chronic microvascular ischemic changes. [facility] Radiology Study observation (narrative) [facility] ALAN[facility] CT Head W/O ContrastOrdered By: Stephen Feldman on 04-01-2023 NEFTALI ANDERSON [facility] Work Phone: Comp Metabolic Profon 2022 Albumin [Mass/Vol] 3.7 g/dL Normal 3.5-5.2 [facility] Comment on above: Performed By: #### C P, MG #### [facility] [address] [place], [place] [id number] Patient Intake Representative: Adonis Aleman MD Albumin/Glob Ratio 0.9 Low 1.0-2.5 [facility] Comment on above: Performed By: #### C P, MG #### [facility] [address] [place], [place] [id number] Patient Intake Representative: Adonis Aleman MD Alkaline Phos 270 U/L High 35-104 [facility] Comment on above: Performed By: #### C P, MG #### [facility] [address] [place], [place] [id number] Patient Intake Representative: Adonis Aleman MD ALT [Catalytic activity/Vol] 27 U/L Normal 5-33 [facility] Comment on above: Performed By: #### C P, MG #### [facility] [address] [place], [place] [id number] Patient Intake Representative: dAonis Aleman MD Anion gap [Moles/Vol] 10 mmol/L Normal 9-17 [facility] Comment on above: Performed By: #### C P, MG #### [facility] [address] [place], [place] [id number] Patient Intake Representative: Adonis Aleman MD AST [Catalytic activity/Vol] 43 U/L High <32 [facility] Comment on above: Performed By: #### C P, MG #### [facility] [address] [place], [place] [phone] Patient Intake Representative: Adonis Aleman MD Bilirubin [Mass/Vol] 0.4 mg/dL Normal 0.3-1.2 [facility] Comment on above: Performed By: #### C P, MG #### [facility] [address] [place], [place] [id number] Patient Intake Representative: Adonis Aleman MD BUN/CRE Ratio 16 Normal 9-20 [facility] Comment on above: Performed By: #### C P, MG #### [facility] [address] [place] [address] Patient Intake Representative: Adonis Aleman MD Calcium [Mass/Vol] 9.7 mg/dL Normal 8.6-10.4 [facility] Comment on above: Performed By: #### C P, MG #### [facility] [address] [place], [place] [phone] Patient Intake Representative: Adonis Aleman MD Chloride [Moles/Vol] 97 mmol/L Low 98-107 [facility] Comment on above: Performed By: #### C P, MG #### [facility] [address] [place] [address] Patient Intake Representative: Adonis Aleman MD CO2 [Moles/Vol] 28 mmol/L Normal 20-31 [facility] Comment on above: Performed By: #### C P, MG #### [facility] [address] [place] [address] Patient Intake Representative: Adonis Aleman MD Creatinine [Mass/Vol] 1.2 mg/dL High 0.5-0.9 [facility] Comment on above: Performed By: #### C P, MG #### [facility] [address] [place] [address] Patient Intake Representative: Adonis Aleman MD GFR/1.73 sq M.predicted among non-blacks MDRD (S/P/Bld) [Vol rate/Area] 49 mL/min/{1.73_m2} Low >60 [facility] Comment on above: Result Comment: These results are not intended for use in patients <18 years of age. eGFR results are calculated without a race factor using the 2020 CKD-EPI equation. Careful clinical correlation is recommended, particularly when comparing to results calculated using previous equations. The CKD-EPI equation is less accurate in patients with extremes of muscle mass, extra-renal metabolism of creatine, excessive creatine ingestion, or following therapy that affects renal tubular secretion. Performed By: #### C P, MG #### [facility] [address] [place] [address] Patient Intake Representative: Adonis Aleman MD Glucose [Mass/Vol] 134 mg/dL High 70-99 [facility] Comment on above: Performed By: #### C P, MG #### [address] [place], [place] [phone] Patient Intake Representative: Adonis Aleman MD Potassium [Moles/Vol] 4.5 mmol/L Normal 3.7-5.3 [facility] Comment on above: Performed By: #### C P, MG #### [address] [place] [address] Patient Intake Representative: Adonis Aleman MD Protein [Mass/Vol] 7.7 g/dL Normal 6.4-8.3 [facility] Comment on above: Performed By: #### C P, MG #### [address] [place] [address] Patient Intake Representative: Adonis Aleman MD Sodium [Moles/Vol] 135 mmol/L Normal 135-144 [facility] Comment on above: Performed By: #### C P, MG #### [facility] [address] [place] [address] Patient Intake Representative: Adonis Aleman MD Urea nitrogen [Mass/Vol] 19 mg/dL Normal 8-23 [facility] Comment on above: Performed By: #### C P, MG #### [facility] [address] [place] [address] Patient Intake Representative: Adonis Aleman MD Comprehensive Metabolic Pane [facility] 04-01-2023 Albumin [Mass/Vol] 3.7 g/dL 3.5 - 5.2 g/dL [facility] Albumin/Globulin [Mass ratio] 0.9 {ratio} Low 1.0 - 2.5 [facility] ALP [Catalytic activity/Vol] 270 U/L High 35 - 104 U/L [facility] ALT [Catalytic activity/Vol] 27 U/L 5 - 33 U/L [facility] Anion gap [Moles/Vol] 10 mmol/L 9 - 17 mmol/L [facility] AST [Catalytic activity/Vol] 43 U/L High NINF - 32 U/L [facility] Bilirubin [Mass/Vol] 0.4 mg/dL 0.3 - 1 .2 mg/dL [facility] Calcium [Mass/Vol] 9.7 mg/dL 8.6 - 10. 4 mg/dL [facility] Chloride [Moles/Vol] 97 mmol/L Low 98 - 10 7 mmol/L [facility] CO2 [Moles/Vol] 28 mmol/L 20 - 31 mmol/L [facility] Creatinine [Mass/Vol] 1.2 mg/dL High 0.5 - 0.9 mg/dL [facility] GFR/1.73 sq M.predicted MDRD (S/P/Bld) [Vol rate/Area] 49 mL/min/{1.73_m2} Low - PINF [facility] Comment on above: These results are not intended for use in patients <18 years of age. eGFR results are calculated without a race factor using the 2020 CKD-EPI equation. Careful clinical correlation is recommended, particularly when comparing to results calculated using previous equations. The CKD-EPI equation is less accurate in patients with extremes of muscle mass, extra-renal metabolism of creatine, excessive creatine ingestion, or following therapy that affects renal tubular secretion. Glucose [Mass/Vol] 134 mg/dL High 70 - 99 mg/dL [facility] Interpretation and review of laboratory results Abnormal [facility] Potassium [Moles/Vol] 4.5 mmol/L 3.7 - 5.3 mmol/L [facility] Protein [Mass/Vol] 7.7 g/dL 6.4 - 8.3 g/dL [facility] Sodium [Moles/Vol] 135 mmol/L 135 - 144 mmol/L [facility] Urea nitrogen [Mass/Vol] 19 mg/dL 8 - 23 mg/dL [facility] Urea nitrogen/Creatinine [Mass ratio] 16 mg/mg 9 - 20 [facility] Cult,Urineon 04-01-2023 Cult,Urine Specimen Description .VOIDED URINE Culture ESCHERICHIA COLI >100,000 CFU/ML Report Status FINAL 04/01/2023 SUSCEPTIBILITY Organism ESCHERICHIA COLI Method ALEX Ampicillin 16 INTERMEDIATE Cefazolin <=4 SUSCEPTIBLE Cefazolin sensitivity results can be used to predict the effectiveness of oral cephalosporins (eg. Cephalexin) in uncomplicated Urinary Tract Infections due to E. coli, K. pneumoniae, and P. mirabilis Ceftriaxone <=0.25 SUSCEPTIBLE ESBL NEGATIVE Gentamicin <=1 SUSCEPTIBLE Levofloxacin <=0.12 SUSCEPTIBLE Nitrofurantoin <=16 SUSCEPTIBLE Piperacillin/Tazobac peguero <=4 SUSCEPTIBLE Tobramycin <=1 SUSCEPTIBLE Trimethoprim/Sulfa <=20 SUSCEPTIBLE Susceptible [facility] Comment on above: Performed By: #### L IVP, TROPI #### [facility] [address] [place] [address] Patient Intake Representative: Adonis Aleman MD Lactic Acidon 04-01-2023 Lactate [Moles/Vol] 1.5 mmol/L Normal 0.5-2.2 [facility] Comment on above: Performed By: #### C P, MG #### [facility] [address] [place] [address] Patient Intake Representative: Adonis Aleman MD Lactate (BldV) [Moles/Vol] 1.5 mmol/L 0.5 - 2.2 mmol/L [facility] Urinalysis w/ Microon 2022 Bacteria 3+ Abnormal NONE [facility] Comment on above: Performed By: #### G LYHGB #### [address] [address] Patient Intake Representative: Jarred Garcia MD Bilirubin, SemiQt,Ur Negative Normal NEG [facility] Comment on above: Performed By: #### G LYHGB #### [address] [address] Patient Intake Representative: Jarred Garcia MD Blood, Urine Negative Normal NEG [facility] Comment on above: Performed By: #### G LYHGB #### [address] [address] Patient Intake Representative: Jarred Garcia MD Clarity (U) Clear Normal CLEAR [facility] Comment on above: Performed By: #### G LYHGB #### [address] [address] Patient Intake Representative: Jarred Garcia MD Color (U) Yellow Normal YEL [facility] Comment on above: Performed By: #### G LYHGB #### [address] [address] Patient Intake Representative: Jarred Garcia MD Epithelial cells LM Ql (Urine sed) 0 TO 2 Normal 0-25 [facility] Comment on above: Performed By: #### G LYHGB #### [address] [address] Patient Intake Representative: Jarred Garcia MD Glucose Ql (U) Negative Normal NEG [facility] Comment on above: Performed By: #### G LYHGB #### [address] [address] Patient Intake Representative: Jarred Garcia MD Ketones Ql (U) Negative Normal NEG [facility] Comment on above: Performed By: #### G LYHGB #### [address] [address] Patient Intake Representative: Jarred Garcia MD Leukocyte esterase Test strip Ql (U) SMALL Abnormal NEG [facility] Comment on above: Performed By: #### G LYHGB #### [address] [address] Patient Intake Representative: Jarred Garcia MD Mucus Strands TRACE Abnormal NONE [facility] Comment on above: Performed By: #### G LYHGB #### [address] [address] Patient Intake Representative: Jarred Garcia MD Nitrite,Ur Positive Abnormal NEG [facility] Comment on above: Performed By: #### G LYHGB #### [address] [address] Patient Intake Representative: Jarred Garcia MD PH,Ur 6.0 Normal 5.0-9.0 [facility] Comment on above: Performed By: #### G LYHGB #### [address] [address] Patient Intake Representative: Jarred Garcia MD Protein Ql (U) Negative Normal NEG [facility] Comment on above: Performed By: #### G LYHGB #### [address] [address] Patient Intake Representative: Jarred Garcia MD Spec. Clay,Ur 1.020 Normal 1.010-1.020 [facility] Comment on above: Performed By: #### G LYHGB #### [address] [address] Patient Intake Representative: Jarred Garcia MD Urine RBC's 0 TO 2 Normal 0-2 [facility] Comment on above: Performed By: #### G LYHGB #### [address] [address] Patient Intake Representative: Jarred Garcia MD Urine WBC's 20 TO 50 Normal 0-5 [facility] Comment on above: Performed By: #### G LYHGB #### [address] [place], [place] [id number] Patient Intake Representative: Jarred Garcia MD Urobilinogen,Ur Normal Normal 0.0-1.0 [facility] Comment on above: Performed By: #### G LYHGB #### [facility] [address] [place] [address] Patient Intake Representative: Jarred Garcia MD Ammoniaon 03-27-2023 Ammonia (P) [Moles/Vol] 43 umol/L High 11-41 [facility] Comment on above: Performed By: #### G LYHGB #### [address] [address] Patient Intake Representative: Jarred Garcia MD CBC with Diffon 03-27-2023 Abs. Basophil <0.03 Normal 0.00-0.20 [facility] Comment on above: Performed By: #### C P, MG #### [facility] [address] [place] [address] [place] [place] [id number] ( Patient Intake Representative: Adonis Aleman MD Abs.Imm.Granulocyte <0.03 Normal 0.00-0.30 [facility] Comment on above: Performed By: #### C P, MG #### [address] [place], [place] [phone] Patient Intake Representative: Adonis Aleman MD Abs.Neutrophil (Seg) 2.57 k/uL Normal 1.50-8.10 [facility] Comment on above: Performed By: #### C P, MG #### [address] [place], [place] [id number] Patient Intake Representative: Adonis Aleman MD Basophils/100 WBC (Bld) 1 % Normal 0-2 [facility] Comment on above: Performed By: #### C P, MG #### [facility] [address] [place] [address] Patient Intake Representative: Adonis Aleman MD Eosinophils (Bld) [#/Vol] 0.06 10*3/uL Normal 0.00-0.44 [facility] Comment on above: Performed By: #### C P, MG #### [address] [place], [place] [phone] Patient Intake Representative: Adonis Aleman MD Eosinophils/100 WBC (Bld) 1 % Normal 1-4 [facility] Comment on above: Performed By: #### C P, MG #### [address] [place], [facility]83 Patient Intake Representative: Adonis Aleman MD Erythrocyte distribution width (RBC) [Ratio] 14.9 % High 11.8-14.4 [facility] Comment on above: Performed By: #### C P, MG #### [address] [place], [facility]83 Patient Intake Representative: Adonis Aleman MD Hematocrit (Bld) [Volume fraction] 34.1 % Low 36.3-47.1 [facility] Comment on above: Performed By: #### C P, MG #### [address] [place], [facility]83 Patient Intake Representative: Adonis Aleman MD Hemoglobin (Bld) [Mass/Vol] 11.0 g/dL Low 11.9-15.1 [facility] Comment on above: Performed By: #### C P, MG #### [address] [place], [facility]83 Patient Intake Representative: Adonis Aleman MD Immature granulocytes/100 WBC (Bld) 1 % High 0 [facility] Comment on above: Performed By: #### C P, MG #### [address] [place] [address] Patient Intake Representative: Adonis Aleman MD Lymphocytes (Bld) [#/Vol] 1.37 10*3/uL Normal 1.10-3.70 [facility] Comment on above: Performed By: #### C P, MG #### [facility] [address] [place], [place] [phone] Patient Intake Representative: Adonis Aleman MD Lymphocytes/100 WBC (Bld) 31 % Normal 24-43 [facility] Comment on above: Performed By: #### C P, MG #### [facility] [address] [place], [facility]83 Patient Intake Representative: Adonis Aleman MD MCH (RBC) [Entitic mass] 29.6 pg Normal 25.2-33.5 [facility] Comment on above: Performed By: #### C P, MG #### [address] [place], [facility]83 Patient Intake Representative: Adonis Aleman MD MCHC (RBC) [Mass/Vol] 32.3 g/dL Normal 28.4-34.8 [facility] Comment on above: Performed By: #### C P, MG #### [address] [place], [facility]83 Patient Intake Representative: Adonis Aleman MD MCV (RBC) [Entitic vol] 91.7 fL Normal 82.6-102.9 [facility] Comment on above: Performed By: #### C P, MG #### [address] [place], [place] [address] Patient Intake Representative: Adonis Aleman MD Monocytes (Bld) [#/Vol] 0.32 10*3/uL Normal 0.10-1.20 [facility] Comment on above: Performed By: #### C P, MG #### [address] [place] [address] Patient Intake Representative: Adonis Aleman MD Monocytes/100 WBC (Bld) 7 % Normal 3-12 [facility] Comment on above: Performed By: #### C P, MG #### [facility] [address] [place], [place] [phone] Patient Intake Representative: Adonis Aleamn MD Neutrophil (Seg) 59 % Normal 36-65 [facility] Comment on above: Performed By: #### C P, MG #### [facility] [address] [place], [place] [phone] Patient Intake Representative: Adonis Aleman MD NRBC Automated 0.0 per 100 WBC Normal 0.0 [facility] Comment on above: Performed By: #### C P, MG #### [facility] [address] [place], [place] [phone] Patient Intake Representative: Adonis Aleman MD Platelet mean volume (Bld) [Entitic vol] 9.5 fL Normal 8.1-13.5 [facility] Comment on above: Performed By: #### C P, MG #### [address] [place], [place] [phone] Patient Intake Representative: Adonis Aleman MD Platelets (Bld) [#/Vol] 102 10*3/uL Low 138-453 [facility] Comment on above: Performed By: #### C P, MG #### [address] [place], [place] [phone] Patient Intake Representative: Adonis Aleman MD RBC (Bld) [#/Vol] 3.72 10*6/uL Low 3.95-5.11 [facility] Comment on above: Performed By: #### C P, MG #### [address] [place], [place] [phone] Patient Intake Representative: Adonis Aleman MD WBC (Bld) [#/Vol] 4.4 10*3/uL Normal 3.5-11.3 [facility] Comment on above: Performed By: #### C P, MG #### [address] [place], [place] [phone] Patient Intake Representative: Adonis Aleman MD Comp Metabolic Pr/rfx MGon 0 - Albumin [Mass/Vol] 3.3 g/dL Low 3.5-5.2 [facility] Comment on above: Performed By: #### C P, MG #### [facility] [address] [place] [address] Patient Intake Representative: Adonis Aleman MD Albumin/Glob Ratio 0.9 Low 1.0-2.5 [facility] Comment on above: Performed By: #### C P, MG #### [facility] [address] [place] [address] [place], [place] [phone] Patient Intake Representative: Adonis Aleman MD Alkaline Phos 247 U/L High 35-104 [facility] Comment on above: Performed By: #### C P, MG #### [facility] [address] [place] [address] [place], [place] [phone] Patient Intake Representative: Adonis Aleman MD ALT [Catalytic activity/Vol] 18 U/L Normal 5-33 [facility] Comment on above: Performed By: #### C P, MG #### [address] [place], [place] [phone] Patient Intake Representative: Adonis Aleman MD Anion gap [Moles/Vol] 8 mmol/L Low 9-17 [facility] Comment on above: Performed By: #### C P, MG #### [facility] [address] [place] [address] [place], [place] [phone] Patient Intake Representative: Adonis Aleman MD AST [Catalytic activity/Vol] 26 U/L Normal <32 [facility] Comment on above: Performed By: #### C P, MG #### [facility] [address] [place] [address] [place] [address] Patient Intake Representative: Adonis Aleman MD Bilirubin [Mass/Vol] 0.4 mg/dL Normal 0.3-1.2 [facility] Comment on above: Performed By: #### C P, MG #### [facility] [address] [place] [address] Patient Intake Representative: Adonis Aleman MD BUN/CRE Ratio 16 Normal 9-20 [facility] Comment on above: Performed By: #### C P, MG #### [facility] [address] [place], [place] [phone] Patient Intake Representative: Adonis Aleman MD Calcium [Mass/Vol] 9.4 mg/dL Normal 8.6-10.4 [facility] Comment on above: Performed By: #### C P, MG #### [facility] [address] [place] [address] Patient Intake Representative: Adonis Aleman MD Chloride [Moles/Vol] 97 mmol/L Low 98-107 [facility] Comment on above: Performed By: #### C P, MG #### [facility] [address] [place], [place] [phone] Patient Intake Representative: Adonis Aleman MD CO2 [Moles/Vol] 29 mmol/L Normal 20-31 [facility] Comment on above: Performed By: #### C P, MG #### [facility] [address] [place], [place] [phone] Patient Intake Representative: Adonis Aleman MD Creatinine [Mass/Vol] 1.0 mg/dL High 0.5-0.9 [facility] Comment on above: Performed By: #### C P, MG #### [facility] [address] [place] [address] Patient Intake Representative: Adonis Aleman MD GFR/1.73 sq M.predicted among non-blacks MDRD (S/P/Bld) [Vol rate/Area] mL/min/{1.73_m2} Normal >60 [facility] Comment on above: Result Comment: These results are not intended for use in patients <18 years of age. eGFR results are calculated without a race factor using the 2020 CKD-EPI equation. Careful clinical correlation is recommended, particularly when comparing to results calculated using previous equations. The CKD-EPI equation is less accurate in patients with extremes of muscle mass, extra-renal metabolism of creatine, excessive creatine ingestion, or following therapy that affects renal tubular secretion. Performed By: #### C P, MG #### [facility] [address] [place] [address] [place] [address] Patient Intake Representative: Adonis Aleman MD Glucose [Mass/Vol] 136 mg/dL High 70-99 [facility] Comment on above: Performed By: #### C P, MG #### [address] [place], [place] [phone] Patient Intake Representative: Adonis Aleman MD Potassium [Moles/Vol] 5.1 mmol/L Normal 3.7-5.3 [facility] Comment on above: Performed By: #### C P, MG #### [address] [place], [place] [phone] Patient Intake Representative: Adonis Aleman MD Protein [Mass/Vol] 6.9 g/dL Normal 6.4-8.3 [facility] Comment on above: Performed By: #### C P, MG #### [address] [place], [place] 1115483 Patient Intake Representative: Adonis Aleman MD Sodium [Moles/Vol] 134 mmol/L Low 135-144 [facility] Comment on above: Performed By: #### C P, MG #### [facility] [address] [place] [address] [place], [place] [phone] Patient Intake Representative: Adonis Aleman MD Urea nitrogen [Mass/Vol] 16 mg/dL Normal 8-23 [facility] Comment on above: Performed By: #### C P, MG #### [facility] [address] [place] [address] [place] [address] Patient Intake Representative: Adonis Aleman MD Hemoglobin A1Con 03-27-2023 Glucose [Mass/Vol] 209 mg/dL Normal [facility] Comment on above: Result Comment: The ADA and AACC recommend providing the estimated average glucose result to permit better patient understanding of their HBA1c result. Performed By: #### C P, MG #### [facility] [address] [place], [place] 9[address]5083 Patient Intake Representative: Adonis Aleman MD HbA1c (Bld) [Mass fraction] 8.9 % High 4.0-6.0 [facility] Comment on above: Performed By: #### C P, MG #### [facility] [address] [place], [place] [phone] Patient Intake Representative: Adonis Aleman MD Liver Profileon 03-27-2023 Albumin [Mass/Vol] 3.4 g/dL Low 3.5-5.2 [facility] Comment on above: Performed By: #### L IVP, TROPI #### [facility] [address] [place] [address] Patient Intake Representative: Adonis Aleman MD Albumin/Glob Ratio 0.9 Low 1.0-2.5 [facility] Comment on above: Performed By: #### L IVP, TROPI #### [facility] [address] [place], [place] [phone] Patient Intake Representative: Adonis Aleman MD Alkaline Phos 231 U/L High 35-104 [facility] Comment on above: Performed By: #### L IVP, TROPI #### [facility] [address] [place] [address] Patient Intake Representative: Adonis Aleman MD ALT [Catalytic activity/Vol] 17 U/L Normal 5-33 [facility] Comment on above: Performed By: #### L IVP, TROPI #### [facility] [address] [place], [place] [phone] Patient Intake Representative: Adonis Aleman MD AST [Catalytic activity/Vol] 25 U/L Normal <32 [facility] Comment on above: Performed By: #### L IVP, TROPI #### [facility] [address] [place] [address] [place], [place] 8563883 Patient Intake Representative: Adonis Aleman MD Bilirubin [Mass/Vol] 0.4 mg/dL Normal 0.3-1.2 [facility] Comment on above: Performed By: #### L IVP, TROPI #### [facility] [address] [place] [address] [place], [place] [phone] Patient Intake Representative: Adonis Aleman MD Bilirubin, Indirect Can not be calculated Normal 0.0-1.0 [facility] Comment on above: Performed By: #### L IVP, TROPI #### [address] [place], [place] [phone] Patient Intake Representative: Adonis Aleman MD Bilirubin.indirect [Mass/Vol] mg/dL Normal <0.3 [facility] Comment on above: Performed By: #### L IVP, TROPI #### [address] [place], [place] [phone] Patient Intake Representative: Adonis Aleman MD Protein [Mass/Vol] 7.0 g/dL Normal 6.4-8.3 [facility] Comment on above: Performed By: #### L IVP, TROPI #### [address] [place], [place] [phone] Patient Intake Representative: Adonis Aleman MD Magnesiumon 03-27-2023 Magnesium [Mass/Vol] 2.4 mg/dL Normal 1.6-2.6 [facility] Comment on above: Performed By: #### C P, MG #### [address] [place], [place] [phone] Patient Intake Representative: Adonis Aleman MD Magnesium [Mass/Vol] 3.5 mg/dL Critically high 1.6-2.6 [facility] Comment on above: Performed By: #### C P, MG #### [address] [place] [address] Patient Intake Representative: Adonis Aleman MD [id number] 03-27-2023 SARS-CoV-2 (COVID-19) RNA MARIUSZ+probe Ql (Unsp spec) Not detected Normal NOTDET [facility] Comment on above: Result Comment: Rapid NAAT: The specimen is NEGATIVE for SARS-CoV-2, the novel coronavirus associated with COVID-19. The ID NOW COVID-19 assay is designed to detect the virus that causes COVID-19 in patients with signs and symptoms of infection who are suspected of COVID-19. An individual without symptoms of COVID-19 and who is not shedding SARS-CoV-2 virus would expect to have a negative (not detected) result in this assay. Negative results should be treated as presumptive and, if inconsistent with clinical signs and symptoms or necessary for patient management, should be tested with an alternative molecular assay. Negative results do not preclude SARS-CoV-2 infection and should not be used as the sole basis for patient management decisions. Fact sheet for Healthcare Providers: https://www.fda.gov/media/735596/download Fact sheet for Patients: https://www.fda.gov/media/339451/download Methodology: Isothermal Nucleic Acid Amplification Performed By: #### C P, MG #### [address] [place] [address] Patient Intake Representative: Adonis Aleman MD Troponinon 03-27-2023 Troponin, High Sens 6 ng/L Normal 0-14 [facility] Comment on above: Result Comment: High Sensitivity Troponin values cannot be compared with other Troponin methodologies. Performed By: #### C P, MG #### [address] [place] [address] Patient Intake Representative: Adonis Aleman MD Troponin, High Sens <6 Normal 0-14 [facility] Comment on above: Result Comment: High Sensitivity Troponin values cannot be compared with other Troponin methodologies. Performed By: #### L IVP, TROPI #### [facility] [address] [place] [address] Patient Intake Representative: Adonis Aleman MD Basic Metabolic Profon 03-26 Anion gap [Moles/Vol] 8 mmol/L Low 9-17 [facility] Comment on above: Performed By: #### B MP, CDP, BNP, MG, TROPI #### [facility] [address] [place], [place] [phone] Patient Intake Representative: Adonis Aleman MD BUN/CRE Ratio 15 Normal 9-20 [facility] Comment on above: Performed By: #### B MP, CDP, BNP, MG, TROPI #### [facility] [address] [place], [place] [phone] Patient Intake Representative: Adonis Aleman MD Calcium [Mass/Vol] 9.6 mg/dL Normal 8.6-10.4 [facility] Comment on above: Performed By: #### B MP, CDP, BNP, MG, TROPI #### [facility] [address] [place], [place] 8[address]7783 Patient Intake Representative: Adonis Aleman MD Chloride [Moles/Vol] 94 mmol/L Low 98-107 [facility] Comment on above: Performed By: #### B MP, CDP, BNP, MG, TROPI #### [facility] [address] [place], [place] [address]83 Patient Intake Representative: Adonis Aleman MD CO2 [Moles/Vol] 29 mmol/L Normal 20-31 [facility] Comment on above: Performed By: #### B MP, CDP, BNP, MG, TROPI #### [facility] [address] [place] [address] Patient Intake Representative: Adonis Aleman MD Creatinine [Mass/Vol] 1.1 mg/dL High 0.5-0.9 [facility] Comment on above: Performed By: #### B MP, CDP, BNP, MG, TROPI #### [facility] [address] [place] [address] Patient Intake Representative: Adonis Aleman MD GFR/1.73 sq M.predicted among non-blacks MDRD (S/P/Bld) [Vol rate/Area] 55 mL/min/{1.73_m2} Low >60 [facility] Comment on above: Result Comment: These results are not intended for use in patients <18 years of age. eGFR results are calculated without a race factor using the 2020 CKD-EPI equation. Careful clinical correlation is recommended, particularly when comparing to results calculated using previous equations. The CKD-EPI equation is less accurate in patients with extremes of muscle mass, extra-renal metabolism of creatine, excessive creatine ingestion, or following therapy that affects renal tubular secretion. Performed By: #### B MP, CDP, BNP, MG, TROPI #### [address] [place] [address] Patient Intake Representative: Adonis Aleman MD Glucose [Mass/Vol] 123 mg/dL High 70-99 [facility] Comment on above: Performed By: #### B MP, CDP, BNP, MG, TROPI #### [address] [place] [address] Patient Intake Representative: Adonis Aleman MD Potassium [Moles/Vol] 4.9 mmol/L Normal 3.7-5.3 [facility] Comment on above: Performed By: #### B MP, CDP, BNP, MG, TROPI #### [facility] [address] [place] [address] [place] [address] Patient Intake Representative: Adonis Aleman MD Sodium [Moles/Vol] 131 mmol/L Low 135-144 [facility] Comment on above: Performed By: #### B MP, CDP, BNP, MG, TROPI #### [address] [place] [address] Patient Intake Representative: Adonis Aleman MD Urea nitrogen [Mass/Vol] 16 mg/dL Normal 8-23 [facility] Comment on above: Performed By: #### B MP, CDP, BNP, MG, TROPI #### [facility] Lab [address] [place] [address] Patient Intake Representative: Adonis Aleman MD Brain Natri. Peptideon 03-26 Natriuretic peptide B (Bld) [Mass/Vol] 130 pg/mL Normal <300 [facility] Comment on above: Result Comment: An age-independent cutoff point of 300 pg/ml has a 98% negative predictive value excluding acute heart failure. Performed By: #### C DP, REJEC #### [facility] [address] [place] [id number] Patient Intake Representative: Adonis Aleman MD CBC with Diffon 03-26-2023 Abs. Basophil <0.03 Normal 0.00-0.20 [facility] Comment on above: Performed By: #### B MP, CDP, BNP, MG, TROPI #### [facility] Lab [address] [place] [address] Dr. [place], [place] [address] Patient Intake Representative: Adonis Aleman MD Abs.Imm.Granulocyte <0.03 Normal 0.00-0.30 [facility] Comment on above: Performed By: #### B MP, CDP, BNP, MG, TROPI #### [address] [place], [place] [address] Patient Intake Representative: Adonis Aleman MD Abs.Neutrophil (Seg) 2.63 k/uL Normal 1.50-8.10 [facility] Comment on above: Performed By: #### B MP, CDP, BNP, MG, TROPI #### [facility] [address] [place], [facility]83 Patient Intake Representative: Adonis Aleman MD Basophils/100 WBC (Bld) 0 % Normal 0-2 [facility] Comment on above: Performed By: #### B MP, CDP, BNP, MG, TROPI #### [address] [place] [id number] Patient Intake Representative: Adonis Aleman MD Eosinophils (Bld) [#/Vol] 0.06 10*3/uL Normal 0.00-0.44 [facility] Comment on above: Performed By: #### B MP, CDP, BNP, MG, TROPI #### [address] [place], [facility]83 Patient Intake Representative: Adonis Aleman MD Eosinophils/100 WBC (Bld) 1 % Normal 1-4 [facility] Comment on above: Performed By: #### B MP, CDP, BNP, MG, TROPI #### [address] [place] [id number] Patient Intake Representative: Adonis Aleman MD Erythrocyte distribution width (RBC) [Ratio] 14.7 % High 11.8-14.4 [facility] Comment on above: Performed By: #### B MP, CDP, BNP, MG, TROPI #### [address] [place], [facility]83 Patient Intake Representative: Adonis Aleman MD Hematocrit (Bld) [Volume fraction] 35.9 % Low 36.3-47.1 [facility] Comment on above: Performed By: #### B MP, CDP, BNP, MG, TROPI #### [address] [place], [facility]83 Patient Intake Representative: Adonis Aleman MD Hemoglobin (Bld) [Mass/Vol] 11.6 g/dL Low 11.9-15.1 [facility] Comment on above: Performed By: #### B MP, CDP, BNP, MG, TROPI #### [address] [place] [address] Patient Intake Representative: Adonis Aleman MD Immature granulocytes/100 WBC (Bld) 0 % Normal 0 [facility] Comment on above: Performed By: #### B MP, CDP, BNP, MG, TROPI #### [facility] [address] [place], [place] [id number] Patient Intake Representative: Adonis Aleman MD Lymphocytes (Bld) [#/Vol] 1.38 10*3/uL Normal 1.10-3.70 [facility] Comment on above: Performed By: #### B MP, CDP, BNP, MG, TROPI #### [facility] [address] [place], [place] [phone] Patient Intake Representative: Adonis Aleman MD Lymphocytes/100 WBC (Bld) 31 % Normal 24-43 [facility] Comment on above: Performed By: #### B MP, CDP, BNP, MG, TROPI #### [facility] [address] [place], [place] [phone] Patient Intake Representative: Adonis Aleman MD MCH (RBC) [Entitic mass] 29.5 pg Normal 25.2-33.5 [facility] Comment on above: Performed By: #### B MP, CDP, BNP, MG, TROPI #### [facility] [address] [place], [place] [phone] Patient Intake Representative: Adonis Aleman MD MCHC (RBC) [Mass/Vol] 32.3 g/dL Normal 28.4-34.8 [facility] Comment on above: Performed By: #### B MP, CDP, BNP, MG, TROPI #### [facility] [address] [place], [place] [phone] Patient Intake Representative: Adonis Aleman MD MCV (RBC) [Entitic vol] 91.3 fL Normal 82.6-102.9 [facility] Comment on above: Performed By: #### B MP, CDP, BNP, MG, TROPI #### [facility] [address] [place] [address] Patient Intake Representative: Adonis Aleman MD Monocytes (Bld) [#/Vol] 0.36 10*3/uL Normal 0.10-1.20 [facility] Comment on above: Performed By: #### B MP, CDP, BNP, MG, TROPI #### [facility] [address] [place], [place] 1997183 Patient Intake Representative: Adonis Aleman MD Monocytes/100 WBC (Bld) 8 % Normal 3-12 [facility] Comment on above: Performed By: #### B MP, CDP, BNP, MG, TROPI #### [facility] [address] [place], [place] [address] Patient Intake Representative: Adonis Aleman MD Neutrophil (Seg) 60 % Normal 36-65 [facility] Comment on above: Performed By: #### B MP, CDP, BNP, MG, TROPI #### [facility] [address] [place], [facility]83 Patient Intake Representative: Adonis Aleman MD NRBC Automated 0.0 per 100 WBC Normal 0.0 [facility] Comment on above: Performed By: #### B MP, CDP, BNP, MG, TROPI #### [address] [place], [place] [phone] Patient Intake Representative: Adonis Aleman MD Platelet mean volume (Bld) [Entitic vol] 9.9 fL Normal 8.1-13.5 [facility] Comment on above: Performed By: #### B MP, CDP, BNP, MG, TROPI #### [address] [place], [facility]83 Patient Intake Representative: Adonis Aleman MD Platelets (Bld) [#/Vol] 104 10*3/uL Low 138-453 [facility] Comment on above: Performed By: #### B MP, CDP, BNP, MG, TROPI #### [facility] [address] [place], [place] [phone] Patient Intake Representative: Adonis Aleman MD RBC (Bld) [#/Vol] 3.93 10*6/uL Low 3.95-5.11 [facility] Comment on above: Performed By: #### B MP, CDP, BNP, MG, TROPI #### [facility] [address] [place], [place] [phone] Patient Intake Representative: Adonis Aleman MD WBC (Bld) [#/Vol] 4.5 10*3/uL Normal 3.5-11.3 [facility] Comment on above: Performed By: #### B MP, CDP, BNP, MG, TROPI #### [facility] [address] [place], [place] [phone] Patient Intake Representative: Adonis Aleman MD Magnesiumon 03-26-2023 Magnesium [Mass/Vol] 1.2 mg/dL Critically low 1.6-2.6 [facility] Comment on above: Performed By: #### C DP, REJEC #### [facility] [address] [place] [address] Patient Intake Representative: Adonis Aleman MD Troponinon 03-26-2023 Troponin, High Sens <6 Normal 0-14 [facility] Comment on above: Result Comment: High Sensitivity Troponin values cannot be compared with other Troponin methodologies. Performed By: #### C DP, REJEC #### [facility] [address] [place], [place] [phone] Patient Intake Representative: Adonis Aleman MD XR CHEST PORTABLEon 03-26-20 XR CHEST PORTABLE EXAMINATION: ONE XRAY VIEW OF THE CHEST 03/26/2023 7:57 pm COMPARISON: 01/15/2023 HISTORY: ORDERING SYSTEM PROVIDED HISTORY: CP TECHNOLOGIST PROVIDED HISTORY: CP FINDINGS: The cardiomediastinal silhouette is normal. There is atherosclerotic calcification of the aortic knob. There is scarring in the lingula and right mid lung, similar to prior exam. No focal consolidations, overt congestion or pleural effusions. No pneumothorax. Postsurgical fusion hardware seen in the cervical spine. 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 IMPRESSION: Stable scarring in the lingula and right mid lung. No acute findings. Interpreted by: Mary Dunn MD Signed by: Mary Dunn MD 03/26/23 Final result Normal [facility] Basic Metabolic Panelon 02-14 Anion gap [Moles/Vol] 9 mmol/L 9 - 17 mmol/L [facility] Calcium [Mass/Vol] 9.1 mg/dL 8.6 - 10. 4 mg/dL [facility] Chloride [Moles/Vol] 100 mmol/L 98 - 10 7 mmol/L [facility] CO2 [Moles/Vol] 27 mmol/L 20 - 31 mmol/L [facility] Creatinine [Mass/Vol] 1.0 mg/dL High 0.5 - 0.9 mg/dL [facility] GFR/1.73 sq M.predicted MDRD (S/P/Bld) [Vol rate/Area] - PINF [facility] Comment on above: These results are not intended for use in patients <18 years of age. eGFR results are calculated without a race factor using the 2020 CKD-EPI equation. Careful clinical correlation is recommended, particularly when comparing to results calculated using previous equations. The CKD-EPI equation is less accurate in patients with extremes of muscle mass, extra-renal metabolism of creatine, excessive creatine ingestion, or following therapy that affects renal tubular secretion. Glucose [Mass/Vol] 113 mg/dL High 70 - 99 mg/dL [facility] Interpretation and review of laboratory results Abnormal [facility] Potassium [Moles/Vol] 5.0 mmol/L 3.7 - 5.3 mmol/L [facility] Sodium [Moles/Vol] 136 mmol/L 135 - 144 mmol/L [facility] Urea nitrogen [Mass/Vol] 17 mg/dL 8 - 23 mg/dL [facility] Urea nitrogen/Creatinine [Mass ratio] 17 mg/mg 9 - 20 [facility] Basic Metabolic Profon 03-04 Anion gap [Moles/Vol] 9 mmol/L Normal - [facility] Comment on above: Performed By: #### C DP, REJEC #### [facility] [address] [place] [address] Patient Intake Representative: Adonis Aleman MD BUN/CRE Ratio 17 Normal 9-20 [facility] Comment on above: Performed By: #### C DP, REJEC #### [facility] [address] [place], [place] [phone] Patient Intake Representative: Adonis Aleman MD Calcium [Mass/Vol] 9.1 mg/dL Normal 8.6-10.4 [facility] Comment on above: Performed By: #### C DP, REJEC #### [facility] [address] [place] [address] Patient Intake Representative: Adonis Aleman MD Chloride [Moles/Vol] 100 mmol/L Normal 98-107 [facility] Comment on above: Performed By: #### C DP, REJEC #### [facility] [address] [place], [place] [phone] Patient Intake Representative: Adonis Aleman MD CO2 [Moles/Vol] 27 mmol/L Normal 20-31 [facility] Comment on above: Performed By: #### C DP, REJEC #### [facility] [address] [place], [place] [phone] Patient Intake Representative: Adonis Aleman MD Creatinine [Mass/Vol] 1.0 mg/dL High 0.5-0.9 [facility] Comment on above: Performed By: #### C DP, REJEC #### [facility] [address] [place], [place] [phone] Patient Intake Representative: Adonis Aleman MD GFR/1.73 sq M.predicted among non-blacks MDRD (S/P/Bld) [Vol rate/Area] mL/min/{1.73_m2} Normal >60 [facility] Comment on above: Result Comment: These results are not intended for use in patients <18 years of age. eGFR results are calculated without a race factor using the 2020 CKD-EPI equation. Careful clinical correlation is recommended, particularly when comparing to results calculated using previous equations. The CKD-EPI equation is less accurate in patients with extremes of muscle mass, extra-renal metabolism of creatine, excessive creatine ingestion, or following therapy that affects renal tubular secretion. Performed By: #### C DP, REJEC #### [facility] [address] [place], [place] [phone] Patient Intake Representative: Adonis Aleman MD Glucose [Mass/Vol] 113 mg/dL High 70-99 [facility] Comment on above: Performed By: #### C DP, REJEC #### [facility] [address] [place], [place] [phone] Patient Intake Representative: Adonis Aleman MD Potassium [Moles/Vol] 5.0 mmol/L Normal 3.7-5.3 [facility] Comment on above: Performed By: #### C DP, REJEC #### [address] [place], [place] [phone] Patient Intake Representative: Adonis Aleman MD Sodium [Moles/Vol] 136 mmol/L Normal 135-144 [facility] Comment on above: Performed By: #### C DP, REJEC #### [address] [place], [place] [phone] Patient Intake Representative: Adonis Aleman MD Urea nitrogen [Mass/Vol] 17 mg/dL Normal 8-23 [facility] Comment on above: Performed By: #### C DP, REJEC #### [address] [place], [place] [phone] Patient Intake Representative: Adonis Aleman MD CBC with Auto Differentialon 03-04-2023 Basophils (Bld) [#/Vol] B ON [facility] Basophils/100 WBC (Bld) 1 % 0 - 2 % [facility] Eosinophils (Bld) [#/Vol] 0.07 10*3/uL [facility] Eosinophils/100 WBC (Bld) 2 % 1 - 4 % [facility] Erythrocyte distribution width (RBC) [Ratio] 15.4 % High 11.8 - 14.4 % [facility] Hematocrit (Bld) [Volume fraction] 34.2 % Low 36.3 - 47.1 % [facility] Hemoglobin (Bld) [Mass/Vol] 10.7 g/dL Low 11.9 - 15.1 g/dL [facility] Immature granulocytes (Bld) [#/Vol] [facility] Immature granulocytes/100 WBC (Bld) 0 % 0 [facility] Interpretation and review of laboratory results Abnormal [facility] Lymphocytes/100 WBC (Bld) 37 % 24 - 43 % [facility] Lymphocytes/100 WBC (Bld) 1.54 % [facility] MCH (RBC) [Entitic mass] 30.1 pg 25. 2 - 33.5 pg [facility] MCHC (RBC) [Mass/Vol] 31.3 g/dL 28.4 - 34.8 g/dL [facility] MCV (RBC) [Entitic vol] 96.1 fL 82.6 - 102.9 fL [facility] Monocytes/100 WBC (Bld) 8 % 3 - 12 % [facility] Monocytes/100 WBC (Bld) 0.33 % [facility] Neutrophils/100 WBC (Bld) 52 % 36 - 65 % [facility] Nucleated RBC/100 WBC (Bld) [Ratio] 0.0 % 0.0 per 100 WBC [facility] Platelet mean volume (Bld) [Entitic vol] 10.6 fL 8.1 - 13.5 fL [facility] Platelets (Bld) [#/Vol] 111 10*3/uL Low [facility] RBC (Bld) [#/Vol] 3.56 10*6/uL Low 3.95 - 5.1 1 m/uL [facility] Segmented neutrophils/100 WBC (Bld) 2.19 % [facility] WBC other (Bld) [#/Vol] 4.2 B [facility] CBC with Diffon 03-04-2023 Abs. Basophil <0.03 Normal 0.00-0.20 [facility] Comment on above: Performed By: #### C DP, REJEC #### [address] [place], [facility]83 Patient Intake Representative: Adonis Aleman MD Abs.Imm.Granulocyte <0.03 Normal 0.00-0.30 [facility] Comment on above: Performed By: #### C DP, REJEC #### [address] [place] [address] Patient Intake Representative: Adonis Aleman MD Abs.Neutrophil (Seg) 2.19 k/uL Normal 1.50-8.10 [facility] Comment on above: Performed By: #### C DP, REJEC #### [address] [place] [address] Patient Intake Representative: Adonis Aleman MD Basophils/100 WBC (Bld) 1 % Normal 0-2 [facility] Comment on above: Performed By: #### C DP, REJEC #### [address] [place] [address] Patient Intake Representative: Adonis Aleman MD Eosinophils (Bld) [#/Vol] 0.07 10*3/uL Normal 0.00-0.44 [facility] Comment on above: Performed By: #### C DP, REJEC #### [address] [place] [address] Patient Intake Representative: Adonis Aleman MD Eosinophils/100 WBC (Bld) 2 % Normal 1-4 [facility] Comment on above: Performed By: #### C DP, REJEC #### [address] [place] [phone] Patient Intake Representative: Adonis Aleman MD Erythrocyte distribution width (RBC) [Ratio] 15.4 % High 11.8-14.4 [facility] Comment on above: Performed By: #### C DP, REJEC #### [address] [place], [facility]83 Patient Intake Representative: Adonis Aleman MD Hematocrit (Bld) [Volume fraction] 34.2 % Low 36.3-47.1 [facility] Comment on above: Performed By: #### C DP, REJEC #### [facility] [address] [place], [facility]83 Patient Intake Representative: Adonis Aleman MD Hemoglobin (Bld) [Mass/Vol] 10.7 g/dL Low 11.9-15.1 [facility] Comment on above: Performed By: #### C DP, REJEC #### [facility] [address] [place] [address] [place] [address] Patient Intake Representative: Adonis Aleman MD Immature granulocytes/100 WBC (Bld) 0 % Normal 0 [facility] Comment on above: Performed By: #### C DP, REJEC #### [facility] [address] [place] [address] Dr. [place], [facility]83 Patient Intake Representative: Adonis Aleman MD Lymphocytes (Bld) [#/Vol] 1.54 10*3/uL Normal 1.10-3.70 [facility] Comment on above: Performed By: #### C DP, REJEC #### [address] [place], [facility]83 Patient Intake Representative: Adonis Aleman MD Lymphocytes/100 WBC (Bld) 37 % Normal 24-43 [facility] Comment on above: Performed By: #### C DP, REJEC #### [facility] [address] [place], [facility]83 Patient Intake Representative: Adonis Aleman MD MCH (RBC) [Entitic mass] 30.1 pg Normal 25.2-33.5 [facility] Comment on above: Performed By: #### C DP, REJEC #### [facility] [address] [place], [facility]83 Patient Intake Representative: Adonis Aleman MD MCHC (RBC) [Mass/Vol] 31.3 g/dL Normal 28.4-34.8 [facility] Comment on above: Performed By: #### C DP, REJEC #### [address] [place], [place] [phone] Patient Intake Representative: Adonis Aleman MD MCV (RBC) [Entitic vol] 96.1 fL Normal 82.6-102.9 [facility] Comment on above: Performed By: #### C DP, REJEC #### [address] [place] [address] Patient Intake Representative: Adonis Aleman MD Monocytes (Bld) [#/Vol] 0.33 10*3/uL Normal 0.10-1.20 [facility] Comment on above: Performed By: #### C DP, REJEC #### [address] [place], [place] 2475583 Patient Intake Representative: Adonis Aleman MD Monocytes/100 WBC (Bld) 8 % Normal 3-12 [facility] Comment on above: Performed By: #### C DP, REJEC #### [address] [place] [address] Patient Intake Representative: Adonis Aleman MD Neutrophil (Seg) 52 % Normal 36-65 [facility] Comment on above: Performed By: #### C DP, REJEC #### [address] [place], [place] 6407983 Patient Intake Representative: Adonis Aleman MD NRBC Automated 0.0 per 100 WBC Normal 0.0 [facility] Comment on above: Performed By: #### C DP, REJEC #### [address] [place], [place] [phone] Patient Intake Representative: Adonis Aleman MD Platelet mean volume (Bld) [Entitic vol] 10.6 fL Normal 8.1-13.5 [facility] Comment on above: Performed By: #### C DP, REJEC #### [facility] [address] [place], [place] [phone] Patient Intake Representative: Adonis Aleman MD Platelets (Bld) [#/Vol] 111 10*3/uL Low 138-453 [facility] Comment on above: Performed By: #### C DP, REJEC #### [facility] [address] [place], [place] 3803583 Patient Intake Representative: Adonis Aleman MD RBC (Bld) [#/Vol] 3.56 10*6/uL Low 3.95-5.11 [facility] Comment on above: Performed By: #### C DP, REJEC #### [facility] [address] [place], [place] [phone] Patient Intake Representative: Adonis Aleman MD WBC (d) [#/Vol] 4.2 10*3/uL Normal 3.5-11.3 [facility] Comment on above: Performed By: #### C DP, REJEC #### [address] [place], [place] [phone] Patient Intake Representative: Adonis Aleman MD Basic Metab w/rfx MGon 02-25 Anion gap [Moles/Vol] 6 mmol/L Low 9-17 [facility] Comment on above: Performed By: #### G LYHGB #### [facility] [employer] [address] [place], [place] [id number] Patient Intake Representative: Jarred Garica MD BUN/CRE Ratio 14 Normal 9-20 [facility] Comment on above: Performed By: #### G LYHGB #### [facility] [address] [place], [place] [phone] Patient Intake Representative: Jarred Garcia MD Calcium [Mass/Vol] 9.1 mg/dL Normal 8.6-10.4 [facility] Comment on above: Performed By: #### G LYHGB #### [facility] [address] [place] [address] Patient Intake Representative: Jarred Garcia MD Chloride [Moles/Vol] 99 mmol/L Normal 98-107 [facility] Comment on above: Performed By: #### G LYHGB #### [facility] [address] [place] [address] Patient Intake Representative: Jarred Garcia MD CO2 [Moles/Vol] 29 mmol/L Normal 20-31 [facility] Comment on above: Performed By: #### G LYHGB #### [facility] [employer] [address] [place] [address] Patient Intake Representative: Jarred Garcia MD Creatinine [Mass/Vol] 1.0 mg/dL High 0.5-0.9 [facility] Comment on above: Performed By: #### G LYHGB #### [address] [address] Patient Intake Representative: Jarred Garcia MD GFR/1.73 sq M.predicted among non-blacks MDRD (S/P/Bld) [Vol rate/Area] mL/min/{1.73_m2} Normal >60 [facility] Comment on above: Result Comment: These results are not intended for use in patients <18 years of age. eGFR results are calculated without a race factor using the 2020 CKD-EPI equation. Careful clinical correlation is recommended, particularly when comparing to results calculated using previous equations. The CKD-EPI equation is less accurate in patients with extremes of muscle mass, extra-renal metabolism of creatine, excessive creatine ingestion, or following therapy that affects renal tubular secretion. Performed By: #### G LYHGB #### [address] [address] Patient Intake Representative: Jarred Garcia MD Glucose [Mass/Vol] 169 mg/dL High 70-99 [facility] Comment on above: Performed By: #### G LYHGB #### [facility] [address] [place] [address] Patient Intake Representative: Jarred Garcia MD Potassium [Moles/Vol] 5.2 mmol/L Normal 3.7-5.3 [facility] Comment on above: Performed By: #### G LYHGB #### [address] [address] Patient Intake Representative: Jarred Garcia MD Sodium [Moles/Vol] 134 mmol/L Low 135-144 [facility] Comment on above: Performed By: #### G LYHGB #### [address] [address] Patient Intake Representative: Jarred Garcia MD Urea nitrogen [Mass/Vol] 14 mg/dL Normal 8-23 [facility] Comment on above: Performed By: #### G LYHGB #### [address] [address] Patient Intake Representative: Jarred Garcia MD CBC with Diffon 02-25-2023 Platelet, Fluoresc. 94 k/uL Low 138-453 [facility] Comment on above: Performed By: #### G LYHGB #### [address] [address] Patient Intake Representative: Jarred Garcia MD PLT, Immature Fract. 2.9 % Normal 1.1-10.3 [facility] Comment on above: Performed By: #### G LYHGB #### [address] [address] Patient Intake Representative: Jarred Garcia MD Abs. Basophil <0.03 Normal 0.00-0.20 [facility] Comment on above: Performed By: #### G LYHGB #### [address] [address] Patient Intake Representative: Jarred Garcia MD Abs.Imm.Granulocyte <0.03 Normal 0.00-0.30 [facility] Comment on above: Performed By: #### G LYHGB #### [address] [address] Patient Intake Representative: Jarred Garcia MD Abs.Neutrophil (Seg) 1.59 k/uL Normal 1.50-8.10 [facility] Comment on above: Performed By: #### G LYHGB #### [address] [address] Patient Intake Representative: Jarred Garcia MD Basophils/100 WBC (Bld) 0 % Normal 0-2 [facility] Comment on above: Performed By: #### G LYHGB #### [address] [address] [address] Patient Intake Representative: Jarred Garcia MD Eosinophils (Bld) [#/Vol] 0.03 10*3/uL Normal 0.00-0.44 [facility] Comment on above: Performed By: #### G LYHGB #### [address] [address] Patient Intake Representative: Jarred Garcia MD Eosinophils/100 WBC (Bld) 1 % Normal 1-4 [facility] Comment on above: Performed By: #### G LYHGB #### [address] [address] Patient Intake Representative: Jarred Garcia MD Erythrocyte distribution width (RBC) [Ratio] 15.5 % High 11.8-14.4 [facility] Comment on above: Performed By: #### G LYHGB #### [address] [address] Patient Intake Representative: Jarred Garcia MD Hematocrit (Bld) [Volume fraction] 30.8 % Low 36.3-47.1 [facility] Comment on above: Performed By: #### G LYHGB #### [address] [address] Patient Intake Representative: Jarred Garcia MD Hemoglobin (Bld) [Mass/Vol] 9.9 g/dL Low 11.9-15.1 [facility] Comment on above: Performed By: #### G LYHGB #### [address] [address] Patient Intake Representative: Jarred Garcia MD Immature granulocytes/100 WBC (Bld) 0 % Normal 0 [facility] Comment on above: Performed By: #### G LYHGB #### [address] [address] Patient Intake Representative: Jarred Garcia MD Lymphocytes (Bld) [#/Vol] 1.03 10*3/uL Low 1.10-3.70 [facility] Comment on above: Performed By: #### G LYHGB #### [address] [address] Patient Intake Representative: Jarred Garcia MD Lymphocytes/100 WBC (Bld) 36 % Normal 24-43 [facility] Comment on above: Performed By: #### G LYHGB #### [address] [address] Patient Intake Representative: Jarred Garcia MD MCH (RBC) [Entitic mass] 29.6 pg Normal 25.2-33.5 [facility] Comment on above: Performed By: #### G LYHGB #### [address] [address] Patient Intake Representative: Jarred Garcia MD MCHC (RBC) [Mass/Vol] 32.1 g/dL Normal 28.4-34.8 [facility] Comment on above: Performed By: #### G LYHGB #### [address] [address] Patient Intake Representative: Jarred Garcia MD MCV (RBC) [Entitic vol] 92.2 fL Normal 82.6-102.9 [facility] Comment on above: Performed By: #### G LYHGB #### [address] [address] Patient Intake Representative: Jarred Garcia MD Monocytes (Bld) [#/Vol] 0.20 10*3/uL Normal 0.10-1.20 [facility] Comment on above: Performed By: #### G LYHGB #### [address] [address] Patient Intake Representative: Jarred Garcia MD Monocytes/100 WBC (Bld) 7 % Normal 3-12 [facility] Comment on above: Performed By: #### G LYHGB #### [address] [address] Patient Intake Representative: Jarred Garcia MD Neutrophil (Seg) 56 % Normal 36-65 [facility] Comment on above: Performed By: #### G LYHGB #### [address] [address] Patient Intake Representative: Jarred Garcia MD NRBC Automated 0.0 per 100 WBC Normal 0.0 [facility] Comment on above: Performed By: #### G LYHGB #### [address] [address] Patient Intake Representative: Jarred Garcia MD Platelet Count See Reflexed IPF Result Normal 138-453 [facility] Comment on above: Performed By: #### G LYHGB #### [address] [address] Patient Intake Representative: Jarred Garcia MD RBC (Bld) [#/Vol] 3.34 10*6/uL Low 3.95-5.11 [facility] Comment on above: Performed By: #### G LYHGB #### [address] [address] Patient Intake Representative: Jarred Garcia MD WBC (Bld) [#/Vol] 2.9 10*3/uL Low 3.5-11.3 [facility] Comment on above: Performed By: #### G LYHGB #### [employer] [address] [place] [address] Patient Intake Representative: Jarred Garcia MD CT CHEST WO CONTRASTon 02-25 CT CHEST WO CONTRAST EXAMINATION: CT OF THE CHEST WITHOUT CONTRAST 02/25/2023 7:31 am TECHNIQUE: CT of the chest was performed without the administration of intravenous contrast. Multiplanar reformatted images are provided for review. Automated exposure control, iterative reconstruction, and/or weight based adjustment of the mA/kV was utilized to reduce the radiation dose to as low as reasonably achievable. COMPARISON: Chest CT 01/10/2023 HISTORY: ORDERING SYSTEM PROVIDED HISTORY: rib pain / s/p fall TECHNOLOGIST PROVIDED HISTORY: rib pain / s/p fall FINDINGS: Mediastinum: The heart and great vessels are normal in size. Calcified atheromatous plaque and coronary calcifications are noted. No pericardial effusion. No enlarged or suspicious-appearing lymph nodes are identified. Lungs/pleura: Mild paraseptal emphysematous changes and chronic subpleural reticular opacities are noted. Linear scarring in the inferior lingula again noted. Overall improved aeration of the right lung base since the prior exam with probable residual scarring. No acute airspace disease, pneumothorax or effusion. The central airway is patent. Upper Abdomen: Cirrhotic liver morphology. Partially visualized splenomegaly. Trace perihepatic ascites. Gallstone partially visualized. Soft Tissues/Bones: Subacute nondisplaced fractures of the posterior left 5th-8th ribs with surrounding callus formation. Subacute or chronic anterior left 3rd, 4th and 5th rib fractures are noted. IMPRESSION: 1. Subacute nondisplaced fractures of the posterior left 5th-8th ribs and anterior left 3rd-4th ribs. 2. Chronic findings in the chest with overall improved aeration of the right lung base since prior chest CT exam. No acute airspace disease identified. 3. Cirrhosis and trace perihepatic ascites again demonstrated. Interpreted by: Chris Zaman MD Signed by: Chris Zaman MD 02/25/23 Final result Normal [facility] Cult,Urineon 02-25-2023 Cult,Urine Specimen Description .Source, Unspecified Culture ESCHERICHIA COLI >[id number] CFU/ML Report Status FINAL 02/25/2023 SUSCEPTIBILITY Organism ESCHERICHIA COLI Method ALEX Ampicillin 16 INTERMEDIATE Cefazolin <=4 SUSCEPTIBLE Cefazolin sensitivity results can be used to predict the effectiveness of oral cephalosporins (eg. Cephalexin) in uncomplicated Urinary Tract Infections due to E. coli, K. pneumoniae, and P. mirabilis Ceftriaxone <=0.25 SUSCEPTIBLE ESBL NEGATIVE Gentamicin <=1 SUSCEPTIBLE Levofloxacin <=0.12 SUSCEPTIBLE Piperacillin/Tazobac peguero <=4 SUSCEPTIBLE Tobramycin <=1 SUSCEPTIBLE Trimethoprim/Sulfa <=20 SUSCEPTIBLE Susceptible [facility] Comment on above: Performed By: #### C DP, REJEC #### [address] [place] [address] Patient Intake Representative: Adonis Aleman MD [id number] 02-25-2023 SARS-CoV-2 (COVID-19) RNA MARIUSZ+probe Ql (Unsp spec) Not detected Normal NOTDET [facility] Comment on above: Result Comment: Rapid NAAT: The specimen is NEGATIVE for SARS-CoV-2, the novel coronavirus associated with COVID-19. The ID NOW COVID-19 assay is designed to detect the virus that causes COVID-19 in patients with signs and symptoms of infection who are suspected of COVID-19. An individual without symptoms of COVID-19 and who is not shedding SARS-CoV-2 virus would expect to have a negative (not detected) result in this assay. Negative results should be treated as presumptive and, if inconsistent with clinical signs and symptoms or necessary for patient management, should be tested with an alternative molecular assay. Negative results do not preclude SARS-CoV-2 infection and should not be used as the sole basis for patient management decisions. Fact sheet for Healthcare Providers: https://www.fda.gov/media/489483/download Fact sheet for Patients: https://www.fda.gov/media/339854/download Methodology: Isothermal Nucleic Acid Amplification Performed By: #### C P, MG #### [address] [place] [address] Patient Intake Representative: Adonis Aleman MD Basic Metab w/rfx MGon 02-24 Anion gap [Moles/Vol] 7 mmol/L Low 9-17 [facility] Comment on above: Performed By: #### L IVP, TROPI #### [facility] [address] [place] [address] Patient Intake Representative: Adonis Aleman MD BUN/CRE Ratio 17 Normal 9-20 [facility] Comment on above: Performed By: #### L IVP, TROPI #### [facility] [address] [place], [place] [id number] Patient Intake Representative: Adonis Aleman MD Calcium [Mass/Vol] 8.9 mg/dL Normal 8.6-10.4 [facility] Comment on above: Performed By: #### L IVP, TROPI #### [facility] [address] [place], [place] [id number] Patient Intake Representative: Adonis Aleman MD Chloride [Moles/Vol] 97 mmol/L Low 98-107 [facility] Comment on above: Performed By: #### L IVP, TROPI #### [facility] [address] [place] [address] Patient Intake Representative: Adonis Aleman MD CO2 [Moles/Vol] 26 mmol/L Normal 20-31 [facility] Comment on above: Performed By: #### L IVP, TROPI #### [facility] [address] [place] [address] Patient Intake Representative: Adonis Aleman MD Creatinine [Mass/Vol] 1.0 mg/dL High 0.5-0.9 [facility] Comment on above: Performed By: #### L IVP, TROPI #### [facility] [address] [place] [address] Patient Intake Representative: Adonis Aleman MD GFR/1.73 sq M.predicted among non-blacks MDRD (S/P/Bld) [Vol rate/Area] mL/min/{1.73_m2} Normal >60 [facility] Comment on above: Result Comment: These results are not intended for use in patients <18 years of age. eGFR results are calculated without a race factor using the 2020 CKD-EPI equation. Careful clinical correlation is recommended, particularly when comparing to results calculated using previous equations. The CKD-EPI equation is less accurate in patients with extremes of muscle mass, extra-renal metabolism of creatine, excessive creatine ingestion, or following therapy that affects renal tubular secretion. Performed By: #### L IVP, TROPI #### [facility] [address] [place] [address] Patient Intake Representative: Adonis Aleman MD Glucose [Mass/Vol] 293 mg/dL High 70-99 [facility] Comment on above: Performed By: #### L IVP, TROPI #### [facility] [address] [place] [address] Patient Intake Representative: Adonis Aleman MD Potassium [Moles/Vol] 5.0 mmol/L Normal 3.7-5.3 [facility] Comment on above: Performed By: #### L IVP, TROPI #### [facility] [address] [place] [address] [place] [address] Patient Intake Representative: Adonis Aleman MD Sodium [Moles/Vol] 130 mmol/L Low 135-144 [facility] Comment on above: Performed By: #### L IVP, TROPI #### [address] [place], [place] [address]383 Patient Intake Representative: Adonis Aleman MD Urea nitrogen [Mass/Vol] 17 mg/dL Normal 8-23 [facility] Comment on above: Performed By: #### L IVP, TROPI #### [facility] [address] [place] [address] Patient Intake Representative: Adonis Aleman MD CBC with Diffon 02-24-2023 Abs. Basophil 0.00 k/uL Normal 0.00-0.20 [facility] Comment on above: Performed By: #### L IVP, TROPI #### [facility] [address] [place], [place] [phone] Patient Intake Representative: Adonis Aleman MD Abs.Imm.Granulocyte 0.00 k/uL Normal 0.00-0.30 [facility] Comment on above: Performed By: #### L IVP, TROPI #### [facility] [address] [place] [address] [place] [address] Patient Intake Representative: Adonis Aleman MD Abs.Neutrophil (Seg) 2.35 k/uL Normal 1.50-8.10 [facility] Comment on above: Performed By: #### L IVP, TROPI #### [facility] [address] [place] [address] [place] [place], [place] [phone] Patient Intake Representative: Adonis Aleman MD Basophils/100 WBC (Bld) 0 % Normal 0-2 [facility] Comment on above: Performed By: #### L IVP, TROPI #### [address] [place], [place] [id number] Patient Intake Representative: Adonis Aleman MD Eosinophils (Bld) [#/Vol] 0.03 10*3/uL Normal 0.00-0.44 [facility] Comment on above: Performed By: #### L IVP, TROPI #### [address] [place], [place] [id number] Patient Intake Representative: Adonis Aleman MD Eosinophils/100 WBC (Bld) 1 % Normal 1-4 [facility] Comment on above: Performed By: #### L IVP, TROPI #### [facility] [address] [place] [address] [address] [place], [place] [phone] Patient Intake Representative: Adonis Aleman MD Immature granulocytes/100 WBC (Bld) 0 % Normal 0 [facility] Comment on above: Performed By: #### L IVP, TROPI #### [address] [place], [place] [address]83 Patient Intake Representative: Adonis Aleman MD Lymphocytes (Bld) [#/Vol] 0.75 10*3/uL Low 1.10-3.70 [facility] Comment on above: Performed By: #### L IVP, TROPI #### [facility] [address] [place], [place] [address] Patient Intake Representative: Adonis Aleman MD Lymphocytes/100 WBC (Bld) 22 % Low 24-43 [facility] Comment on above: Performed By: #### L IVP, TROPI #### [facility] [address] [place], [place] [address] Patient Intake Representative: Adonis Aleman MD Monocytes (Bld) [#/Vol] 0.27 10*3/uL Normal 0.10-1.20 [facility] Comment on above: Performed By: #### L IVP, TROPI #### [facility] [address] [place] [address] [place], [place] [address] Patient Intake Representative: Adonis Aleman MD Monocytes/100 WBC (Bld) 8 % Normal 3-12 [facility] Comment on above: Performed By: #### L IVP, TROPI #### [address] [place], [place] [address] Patient Intake Representative: Adonis Aleman MD Morphology Lucio (Bld) [Interp] Normal Normal [facility] Comment on above: Result Comment: Plat elet scan shows Decreased Platelets Performed By: #### L IVP, TROPI #### [facility] [address] [place] [address] [place], [place] [address] Patient Intake Representative: Adonis Aleman MD Neutrophil (Seg) 69 % High 36-65 [facility] Comment on above: Performed By: #### L IVP, TROPI #### [facility] [address] [place], [place] [phone] Patient Intake Representative: Adonis Aleman MD Erythrocyte distribution width (RBC) [Ratio] 15.6 % High 11.8-14.4 [facility] Comment on above: Performed By: #### L IVP, TROPI #### [facility] [address] [place] [address] [place] [place], [place] [phone] Patient Intake Representative: Adonis Aleman MD Hematocrit (Bld) [Volume fraction] 30.5 % Low 36.3-47.1 [facility] Comment on above: Performed By: #### L IVP, TROPI #### [address] [place], [facility]83 Patient Intake Representative: Adonis Aleman MD Hemoglobin (Bld) [Mass/Vol] 9.8 g/dL Low 11.9-15.1 [facility] Comment on above: Performed By: #### L IVP, TROPI #### [address] [place], [facility]83 Patient Intake Representative: Adonis Aleman MD MCH (RBC) [Entitic mass] 29.6 pg Normal 25.2-33.5 [facility] Comment on above: Performed By: #### L IVP, TROPI #### [address] [place], [facility]83 Patient Intake Representative: Adonis Aleman MD MCHC (RBC) [Mass/Vol] 32.1 g/dL Normal 28.4-34.8 [facility] Comment on above: Performed By: #### L IVP, TROPI #### [address] [place], [facility]83 Patient Intake Representative: Adonis Aleman MD MCV (RBC) [Entitic vol] 92.1 fL Normal 82.6-102.9 [facility] Comment on above: Performed By: #### L IVP, TROPI #### [address] [place] [address] Patient Intake Representative: Adonis Aleman MD NRBC Automated 0.0 per 100 WBC Normal 0.0 [facility] Comment on above: Performed By: #### L IVP, TROPI #### [facility] [address] [place], [place] [phone] Patient Intake Representative: Adonis Aleman MD Platelet Count See Reflexed IPF Result Normal 138-453 [facility] Comment on above: Performed By: #### L IVP, TROPI #### [facility] [address] [place], [place] [phone] Patient Intake Representative: Adonis Aleman MD Platelet, Fluoresc. 92 k/uL Low 138-453 [facility] Comment on above: Performed By: #### L IVP, TROPI #### [facility] [address] [place], [place] [phone] Patient Intake Representative: Adonis Aleman MD PLT, Immature Fract. 2.0 % Normal 1.1-10.3 [facility] Comment on above: Performed By: #### L IVP, TROPI #### [address] [place], [place] [phone] Patient Intake Representative: Adonis Aleman MD RBC (Bld) [#/Vol] 3.31 10*6/uL Low 3.95-5.11 [facility] Comment on above: Performed By: #### L IVP, TROPI #### [facility] [address] [place], [place] [address]83 Patient Intake Representative: Adonis Aleman MD WBC (Bld) [#/Vol] 3.4 10*3/uL Low 3.5-11.3 [facility] Comment on above: Performed By: #### L IVP, TROPI #### [facility] [address] [place], [place] [phone] Patient Intake Representative: Adonis Aleman MD CT ABDOMEN PELVIS WO CONTRAS Ton 02-24-2023 CT ABDOMEN PELVIS WO CONTRAST EXAMINATION: CT OF THE ABDOMEN AND PELVIS WITHOUT CONTRAST 02/24/2023 9:24 am TECHNIQUE: CT of the abdomen and pelvis was performed without the administration of intravenous contrast. Multiplanar reformatted images are provided for review. Automated exposure control, iterative reconstruction, and/or weight based adjustment of the mA/kV was utilized to reduce the radiation dose to as low as reasonably achievable. COMPARISON: 01/10/2023 HISTORY: ORDERING SYSTEM PROVIDED HISTORY: RUQ Abdominal pain, s/p fall TECHNOLOGIST PROVIDED HISTORY: RUQ Abdominal pain, s/p fall FINDINGS: LOWER CHEST: No acute findings. Calcified coronary atheromatous plaque. Subsegmental atelectasis or scarring in the lung bases. ORGANS: Lack of intravenous contrast limits evaluation of the solid organs and bowel. Cholelithiasis without CT evidence for acute cholecystitis or biliary dilatation. Cirrhotic liver morphology and splenomegaly again demonstrated. Small recannulized paraumbilical vein. The pancreas, adrenals and kidneys reveal no new findings. GI/BOWEL: No bowel dilatation or wall thickening. Moderate stool burden throughout the colon. PELVIS: No acute findings. PERITONEUM/RETROPERI TONEUM: No lymphadenopathy is noted. No free air or free fluid. The aorta is normal in caliber. BONES/SOFT TISSUES: Subacute nondisplaced fracture of the posterior left 9th rib. There is also subacute nondisplaced fractures of the anterior left 4th and 5th ribs. No soft tissue hematoma. Status post vertebroplasty at L3. *Unless otherwise specified, incidental findings do not require dedicated imaging follow-up. IMPRESSION: 1. Subacute nondisplaced posterior left 9th rib fracture and anterior left 4th and 5th rib fractures. 2. No acute inflammatory process or acute traumatic abnormality identified to explain right-sided pain. 3. Cholelithiasis. 4. Cirrhosis and stigmata of portal hypertension with splenomegaly and recanalized paraumbilical vein. No ascites. Interpreted by: Chris Zaman MD Signed by: Chris Zaman MD 02/24/23 Final result Normal [facility] Microalb.,Random Uron 2022 Microalb/Creat Ratio 25 mcg/mg creat High <25 [facility] Comment on above: Performed By: #### C DP, REJEC #### [facility] [address] [place] [address] Patient Intake Representative: Adonis Aleman MD Microalbumin conc. 29 mg/L High <21 [facility] Comment on above: Performed By: #### C DP, REJEC #### [facility] [address] [place], [place] [id number] Patient Intake Representative: Adonis Aleman MD Creatinine [Mass/Vol] 116.7 mg/dL Normal 28.0-217.0 [facility] Comment on above: Performed By: #### C DP, REJEC #### [facility] [address] [place] [address] Patient Intake Representative: Adonis Aleman MD Basic Metabolic Profon 02-23 Anion gap [Moles/Vol] 9 mmol/L Normal 9-17 [facility] Comment on above: Performed By: #### C P, MG #### [facility] [address] [place], [place] [address]83 Patient Intake Representative: Adonis Aleman MD BUN/CRE Ratio 17 Normal 9-20 [facility] Comment on above: Performed By: #### C P, MG #### [facility] [address] [place] [address] [place] [place], [place] [phone] Patient Intake Representative: Adonis Aleman MD Calcium [Mass/Vol] 8.7 mg/dL Normal 8.6-10.4 [facility] Comment on above: Performed By: #### C P, MG #### [facility] [address] [place] [address] [place] [place], [place] [phone] Patient Intake Representative: Adonis Aleman MD Chloride [Moles/Vol] 92 mmol/L Low 98-107 [facility] Comment on above: Performed By: #### C P, MG #### [facility] [address] [place], [place] [phone] Patient Intake Representative: Adonis Aleman MD CO2 [Moles/Vol] 23 mmol/L Normal 20-31 [facility] Comment on above: Performed By: #### C P, MG #### [facility] [address] [place], [place] [address]83 Patient Intake Representative: Adonis Aleman MD Creatinine [Mass/Vol] 1.0 mg/dL High 0.50-0.90 [facility] Comment on above: Performed By: #### C P, MG #### [address] [place] [address] Patient Intake Representative: Adonis Aleman MD GFR/1.73 sq M.predicted among non-blacks MDRD (S/P/Bld) [Vol rate/Area] mL/min/{1.73_m2} Normal >60 [facility] Comment on above: Result Comment: These results are not intended for use in patients <18 years of age. eGFR results are calculated without a race factor using the 2020 CKD-EPI equation. Careful clinical correlation is recommended, particularly when comparing to results calculated using previous equations. The CKD-EPI equation is less accurate in patients with extremes of muscle mass, extra-renal metabolism of creatine, excessive creatine ingestion, or following therapy that affects renal tubular secretion. Performed By: #### C P, MG #### [facility] [address] [place] [address] Patient Intake Representative: Adonis Aleman MD Glucose [Mass/Vol] 280 mg/dL High 70-99 [facility] Comment on above: Performed By: #### C P, MG #### [address] [place] [address] Patient Intake Representative: Adonis Aleman MD Potassium [Moles/Vol] 5.0 mmol/L Normal 3.7-5.3 [facility] Comment on above: Performed By: #### C P, MG #### [facility] [address] [place] [address] Patient Intake Representative: Adonis Aleman MD Sodium [Moles/Vol] 124 mmol/L Low 135-144 [facility] Comment on above: Performed By: #### C P, MG #### [facility] [address] [place] [address] Patient Intake Representative: Adonis Aleman MD Urea nitrogen [Mass/Vol] 17 mg/dL Normal 8-23 [facility] Comment on above: Performed By: #### C P, MG #### [facility] [address] [place], [place] [phone] Patient Intake Representative: Adonis Aleman MD Anion gap [Moles/Vol] 9 mmol/L Normal 9-17 [facility] Comment on above: Performed By: #### U A #### [facility] [address] [place], [place] [phone] Patient Intake Representative: Adonis Aleman MD BUN/CRE Ratio 15 Normal 9-20 [facility] Comment on above: Performed By: #### U A #### [facility] [address] [place], [place] [phone] Patient Intake Representative: Adonis Aleman MD Calcium [Mass/Vol] 9.0 mg/dL Normal 8.6-10.4 [facility] Comment on above: Performed By: #### U A #### [facility] [address] [place] [address] [place] [address] Patient Intake Representative: Adonis Aleman MD Chloride [Moles/Vol] 99 mmol/L Normal 98-107 [facility] Comment on above: Performed By: #### U A #### [facility] [address] [place] [address] [place] [place], [place] [phone] Patient Intake Representative: Adonis Aleman MD CO2 [Moles/Vol] 25 mmol/L Normal 20-31 [facility] [facility] Comment on above: Performed By: #### U A #### [facility] [address] [place], [place] [id number] Patient Intake Representative: Adonis Aleman MD Creatinine [Mass/Vol] 1.2 mg/dL High 0.50-0.90 [facility] Comment on above: Performed By: #### U A #### [facility] [address] [place], [place] 9[address]83 Patient Intake Representative: Adonis Aleman MD GFR/1.73 sq M.predicted among non-blacks MDRD (S/P/Bld) [Vol rate/Area] 49 mL/min/{1.73_m2} Low >60 [facility] Comment on above: Result Comment: These results are not intended for use in patients <18 years of age. eGFR results are calculated without a race factor using the 2020 CKD-EPI equation. Careful clinical correlation is recommended, particularly when comparing to results calculated using previous equations. The CKD-EPI equation is less accurate in patients with extremes of muscle mass, extra-renal metabolism of creatine, excessive creatine ingestion, or following therapy that affects renal tubular secretion. Performed By: #### U A #### [facility] [address] [place] [address] [address]. [place], [place] [phone] Patient Intake Representative: Adonis Aleman MD Glucose [Mass/Vol] 202 mg/dL High 70-99 [facility] Comment on above: Performed By: #### U A #### [facility] [address] [place] [address] [place]. [place], [place] [phone] Patient Intake Representative: Adonis Aleman MD Potassium [Moles/Vol] 4.9 mmol/L Normal 3.7-5.3 [facility] Comment on above: Performed By: #### U A #### [address] [place] [address] Patient Intake Representative: Adonis Aleman MD Sodium [Moles/Vol] 133 mmol/L Low 135-144 [facility] Comment on above: Performed By: #### U A #### [facility] [address] [place] [address] [place] [address] Patient Intake Representative: Adonis Aleman MD Urea nitrogen [Mass/Vol] 18 mg/dL Normal 8-23 [facility] Comment on above: Performed By: #### U A #### [facility] [address] [place] [address] [place] [place], [place] [phone] Patient Intake Representative: Adonis Aleman MD CBCon 02-23-2023 Platelet, Fluoresc. 109 k/uL Low 138-453 [facility] Comment on above: Performed By: #### C DP, REJEC #### [address] [place], [place] [address] Patient Intake Representative: Adonis Aleman MD PLT, Immature Fract. 2.7 % Normal 1.1-10.3 [facility] Comment on above: Performed By: #### C DP, REJEC #### [address] [place], [place] [address] Patient Intake Representative: Adonis Aleman MD Erythrocyte distribution width (RBC) [Ratio] 15.7 % High 11.8-14.4 [facility] Comment on above: Performed By: #### C DP, REJEC #### [address] [place], [place] [address] Patient Intake Representative: Adonis Aleman MD Hematocrit (Bld) [Volume fraction] 31.8 % Low 36.3-47.1 [facility] Comment on above: Performed By: #### C DP, REJEC #### [address] [place], [place] [address] Patient Intake Representative: Adonis Aleman MD Hemoglobin (Bld) [Mass/Vol] 10.4 g/dL Low 11.9-15.1 [facility] Comment on above: Performed By: #### C DP, REJEC #### [address] [place], [place] [address] Patient Intake Representative: Adonis Aleman MD MCH (RBC) [Entitic mass] 30.1 pg Normal 25.2-33.5 [facility] Comment on above: Performed By: #### C DP, REJEC #### [address] [place], [facility]83 Patient Intake Representative: Adonis Aleman MD MCHC (RBC) [Mass/Vol] 32.7 g/dL Normal 28.4-34.8 [facility] Comment on above: Performed By: #### C DP, REJEC #### [facility] [address] [place], [place] [phone] Patient Intake Representative: Adonis Aleman MD MCV (RBC) [Entitic vol] 91.9 fL Normal 82.6-102.9 [facility] Comment on above: Performed By: #### C DP, REJEC #### [facility] [address] [place], [place] [phone] Patient Intake Representative: Adonis Aleman MD NRBC Automated 0.0 per 100 WBC Normal 0.0 [facility] Comment on above: Performed By: #### C DP, REJEC #### [facility] [address] [place], [place] [phone] Patient Intake Representative: Adonis Aleman MD Platelet Count See Reflexed IPF Result Normal 138-453 [facility] Comment on above: Performed By: #### C DP, REJEC #### [facility] [address] [place], [place] [phone] Patient Intake Representative: Adonis Aleman MD RBC (Bld) [#/Vol] 3.46 10*6/uL Low 3.95-5.11 [facility] Comment on above: Performed By: #### C DP, REJEC #### [address] [place], [place] [phone] Patient Intake Representative: Adonis Aleman MD WBC (Bld) [#/Vol] 3.8 10*3/uL Normal 3.5-11.3 [facility] Comment on above: Performed By: #### C DP, REJEC #### [facility] [address] [place] [address] Patient Intake Representative: Adonis Aleman MD CBC with Diffon 02-23-2023 Abs. Basophil <0.03 Normal 0.00-0.20 [facility] Comment on above: Performed By: #### C DP, REJEC #### [facility] [address] [place] [address] Patient Intake Representative: Adonis Aleman MD Abs.Imm.Granulocyte <0.03 Normal 0.00-0.30 [facility] Comment on above: Performed By: #### C DP, REJEC #### [address] [address] Patient Intake Representative: Adonis Aleman MD Abs.Neutrophil (Seg) 2.54 k/uL Normal 1.50-8.10 [facility] Comment on above: Performed By: #### C DP, REJEC #### [address] [address] Patient Intake Representative: Adonis Aleman MD Basophils/100 WBC (Bld) 1 % Normal 0-2 [facility] Comment on above: Performed By: #### C DP, REJEC #### [address] [address] Patient Intake Representative: Adonis Aleman MD Eosinophils (Bld) [#/Vol] 0.04 10*3/uL Normal 0.00-0.44 [facility] Comment on above: Performed By: #### C DP, REJEC #### [address] [address] Patient Intake Representative: Adonis Aleman MD Eosinophils/100 WBC (Bld) 1 % Normal 1-4 [facility] Comment on above: Performed By: #### C DP, REJEC #### [address] [place], [facility]83 Patient Intake Representative: Adonis Aleman MD Immature granulocytes/100 WBC (Bld) 0 % Normal 0 [facility] Comment on above: Performed By: #### C DP, REJEC #### [address] [place] [phone] Patient Intake Representative: Adonis Aleman MD Lymphocytes (Bld) [#/Vol] 1.04 10*3/uL Low 1.10-3.70 [facility] Comment on above: Performed By: #### C DP, REJEC #### [facility] [address] [place] [address] Patient Intake Representative: Adonis Aleman MD Lymphocytes/100 WBC (Bld) 27 % Normal 24-43 [facility] Comment on above: Performed By: #### C DP, REJEC #### [address] [place], [place] [address] Patient Intake Representative: Adonis Aleman MD Monocytes (Bld) [#/Vol] 0.25 10*3/uL Normal 0.10-1.20 [facility] Comment on above: Performed By: #### C DP, REJEC #### [address] [place], [place] [address] Patient Intake Representative: Adonis Aleman MD Monocytes/100 WBC (Bld) 6 % Normal 3-12 [facility] Comment on above: Performed By: #### C DP, REJEC #### [address] [place], [facility]83 Patient Intake Representative: Adonis Aleman MD Neutrophil (Seg) 65 % Normal 36-65 [facility] Comment on above: Performed By: #### C DP, REJEC #### [facility] [address] [place], [facility]83 Patient Intake Representative: Adonis Aleman MD Platelet, Fluoresc. 113 k/uL Low 138-453 [facility] Comment on above: Performed By: #### C DP, REJEC #### [facility] [address] [place] [address] [place] [address] Patient Intake Representative: Adonis Aleman MD PLT, Immature Fract. 2.6 % Normal 1.1-10.3 [facility] Comment on above: Performed By: #### C DP, REJEC #### [address] [place], [place] [phone] Patient Intake Representative: Adonis Aleman MD Erythrocyte distribution width (RBC) [Ratio] 15.7 % High 11.8-14.4 [facility] Comment on above: Performed By: #### C DP, REJEC #### [address] [place], [facility]83 Patient Intake Representative: Adonis Aleman MD Hematocrit (Bld) [Volume fraction] 34.4 % Low 36.3-47.1 [facility] Comment on above: Performed By: #### C DP, REJEC #### [address] [place], [facility]83 Patient Intake Representative: Adonis Aleman MD Hemoglobin (Bld) [Mass/Vol] 11.0 g/dL Low 11.9-15.1 [facility] Comment on above: Performed By: #### C DP, REJEC #### [address] [place], [facility]83 Patient Intake Representative: Adonis Aleman MD MCH (RBC) [Entitic mass] 30.0 pg Normal 25.2-33.5 [facility] Comment on above: Performed By: #### C DP, REJEC #### [address] [place], [facility]83 Patient Intake Representative: Adonis Aleman MD MCHC (RBC) [Mass/Vol] 32.0 g/dL Normal 28.4-34.8 [facility] Comment on above: Performed By: #### C DP, REJEC #### [address] [place] [address] Patient Intake Representative: Adonis Aleman MD MCV (RBC) [Entitic vol] 93.7 fL Normal 82.6-102.9 [facility] Comment on above: Performed By: #### C DP, REJEC #### [facility] [address] [place], [place] 0[address]83 Patient Intake Representative: Adonis Aleman MD NRBC Automated 0.0 per 100 WBC Normal 0.0 [facility] Comment on above: Performed By: #### C DP, REJEC #### [facility] [address] [place], [place] 9[address]83 Patient Intake Representative: Adonis Aleman MD Platelet Count See Reflexed IPF Result Normal 138-453 [facility] Comment on above: Performed By: #### C DP, REJEC #### [facility] [address] [place], [place] [phone] Patient Intake Representative: Adonis Aleman MD RBC (Bld) [#/Vol] 3.67 10*6/uL Low 3.95-5.11 [facility] Comment on above: Performed By: #### C DP, REJEC #### [facility] [address] [place], [place] [phone] Patient Intake Representative: Adonis Aleman MD WBC (Bld) [#/Vol] 3.9 10*3/uL Normal 3.5-11.3 [facility] Comment on above: Performed By: #### C DP, REJEC #### [address] [place], [place] 1848283 Patient Intake Representative: Adonis Aleman MD CT HEAD WO CONTRASTon 2022 CT HEAD WO CONTRAST EXAMINATION: CT OF THE HEAD WITHOUT CONTRAST 02/23/2023 11:43 am TECHNIQUE: CT of the head was performed without the administration of intravenous contrast. Automated exposure control, iterative reconstruction, and/or weight based adjustment of the mA/kV was utilized to reduce the radiation dose to as low as reasonably achievable. COMPARISON: 01/10/2023 HISTORY: ORDERING SYSTEM PROVIDED HISTORY: head injury yesterday TECHNOLOGIST PROVIDED HISTORY: head injury yesterday Decision Support Exception - unselect if not a suspected or confirmed emergency medical condition->Emergency Medical Condition (MA) FINDINGS: BRAIN/VENTRICLES: There is no acute intracranial hemorrhage, mass effect or midline shift. No abnormal extra-axial fluid collection. Cortical atrophy and chronic white matter changes in the brain and associated ventricular enlargement are again demonstrated. ORBITS: The visualized portion of the orbits demonstrate no acute abnormality. SINUSES: The visualized paranasal sinuses and mastoid air cells demonstrate no acute abnormality. SOFT TISSUES/SKULL: No acute abnormality of the visualized skull or soft tissues. IMPRESSION: Chronic findings in the brain without acute CT abnormality identified. Interpreted by: Chris Zaman MD Signed by: Chris Zaman MD 02/23/23 Final result Normal [facility] Creatine Kinaseon 02-23-2023 CK [Catalytic activity/Vol] 33 U/L Normal 26-192 [facility] Comment on above: Performed By: #### L IVP, TROPI #### [address] [place] [address] Patient Intake Representative: Adonis Aleman MD Magnesiumon 02-23-2023 Magnesium [Mass/Vol] 1.8 mg/dL Normal 1.6-2.6 [facility] Comment on above: Performed By: #### C DP, REJEC #### [address] [place] [phone] Patient Intake Representative: Adonis Aleman MD Magnesium [Mass/Vol] 1.3 mg/dL Critically low 1.6-2.6 [facility] Comment on above: Performed By: #### U A #### [address] [place] [address] Patient Intake Representative: Adonis Aleman MD PTH, Intacton 02-23-2023 PTH, Intact 51.7 pg/mL Normal 14.0-72.0 [facility] Comment on above: Result Comment: SAMP LES FROM PATIENTS ROUTINELY RECEIVING HIGH DOSE BIOTIN THERAPY MAY SHOW FALSELY DEPRESSED RESULTS. ADDITIONAL INFORMATION MAY BE REQUIRED FOR DIAGNOSIS. Performed By: #### U A #### [address] [place] [address] Patient Intake Representative: Adonis Aleman MD Phosphorus, Inorg.on 023 Phosphorus, Inorg. 3.8 mg/dL Normal 2.6-4.5 [facility] Comment on above: Performed By: #### U A #### [facility] [address] [place], [place] [phone] Patient Intake Representative: Adonis Aleman MD Specimen Rejectionon 023 Reason for rejection Unable to perform testing: Specimen contaminated. [facility] Comment on above: Performed By: #### C P, MG #### [facility] [address] [place] [address] Patient Intake Representative: Adonis Aleman MD Source of sample .BLOOD [facility] Comment on above: Performed By: #### C P, MG #### [facility] [address] [place] [address] Patient Intake Representative: Adonis Aleman MD Test ordered MG [facility] Comment on above: Performed By: #### C P, MG #### [facility] [address] [place] [address] Patient Intake Representative: Adonis Aleman MD Reason for rejection Unable to perform testing: Specimen hemolyzed. [facility] Comment on above: Performed By: #### C DP, REJEC #### [facility] [address] [place], [place] [phone] Patient Intake Representative: Adonis Aleman MD Source of sample .BLOOD Normal [facility] Comment on above: Performed By: #### C DP, REJEC #### [facility] [address] [place] [address] Patient Intake Representative: Adonis Aleman MD Test ordered BMP, MG [facility] Comment on above: Performed By: #### C DP, REJEC #### [facility] [address] [place], [place] [phone] Patient Intake Representative: Adonis Aleman MD UA w/Reflex Cultureon 2022 Bilirubin, SemiQt,Ur Negative Normal NEG [facility] Comment on above: Performed By: #### L IVP, TROPI #### [facility] [address] [place] [address] [place], [place] [phone] Patient Intake Representative: Adonis Aleman MD Blood, Urine 1+ Abnormal NEG [facility] Comment on above: Performed By: #### L IVP, TROPI #### [facility] [address] [place] [address] [place] [address] Patient Intake Representative: Adonis Aleman MD Clarity (U) Turbid Abnormal CLEAR [facility] Comment on above: Performed By: #### L IVP, TROPI #### [facility] [address] [place] [address] Dr. [place], [place] 0181583 Patient Intake Representative: Adonis Aleman MD Color (U) Yellow Normal YEL [facility] Comment on above: Performed By: #### L IVP, TROPI #### [facility] [address] [place] [address] Dr. [place], [place] [phone] Patient Intake Representative: Adonis Aleman MD Glucose Ql (U) TRACE Abnormal NEG [facility] Comment on above: Performed By: #### L IVP, TROPI #### [facility] [address] [place] [address] [place] [address] Patient Intake Representative: Adonis Aleman MD Ketones Ql (U) TRACE Abnormal NEG [facility] Comment on above: Performed By: #### L IVP, TROPI #### [facility] [address] [place] [address] Dr. [place], [place] [phone] Patient Intake Representative: Adonis Aleman MD Leukocyte esterase Test strip Ql (U) LARGE Abnormal NEG [facility] Comment on above: Performed By: #### L IVP, TROPI #### [facility] [address] [place] [address] [place], [place] [phone] Patient Intake Representative: Adonis Aleman MD Nitrite,Ur Positive Abnormal NEG [facility] Comment on above: Performed By: #### L IVP, TROPI #### [facility] [address] [place], [place] [phone] Patient Intake Representative: Adonis Aleman MD PH,Ur 6.0 Normal 5.0-9.0 [facility] Comment on above: Performed By: #### L IVP, TROPI #### [facility] [address] [place] [address] Dr. [place], [place] 7283483 Patient Intake Representative: Adonis Aleman MD Protein Ql (U) Negative Normal NEG [facility] Comment on above: Performed By: #### L IVP, TROPI #### [facility] [address] [place] [address] [place], [place] 1880383 Patient Intake Representative: Adonis Aleman MD Spec. Clay,Ur 1.020 Normal 1.010-1.020 [facility] Comment on above: Performed By: #### L IVP, TROPI #### [facility] [address] [place] [address] [place] [address] Patient Intake Representative: Adonis Aleman MD Urobilinogen,Ur Normal Normal NORM [facility] Comment on above: Performed By: #### L IVP, TROPI #### [facility] [address] [place] [address] [place] [address] Patient Intake Representative: Adonis Aleman MD Urinalysis,Microon 3 Bacteria 4+ Abnormal NONE [facility] Comment on above: Performed By: #### L IVP, TROPI #### [facility] [address] [place] [address] Dr. [place], [place] [phone] Patient Intake Representative: Adonis Aleman MD Epithelial cells LM Ql (Urine sed) 5 TO 10 Normal 0-25 [facility] Comment on above: Performed By: #### L IVP, TROPI #### [facility] [address] [place] [address] Dr. [place], [place] [phone] Patient Intake Representative: Adonis Aleman MD Urine RBC's 5 TO 10 Normal 0-2 [facility] Comment on above: Performed By: #### L IVP, TROPI #### [facility] [address] [place] [address] Patient Intake Representative: Adonis Aleman MD Urine WBC's GREATER THAN 100 Normal 0-5 [facility] Comment on above: Performed By: #### L IVP, TROPI #### [facility] [address] [place], [place] [address]83 Patient Intake Representative: Adonis Aleman MD Vitamin D 25 OHon 02-23-2023 Vitamin D 25 [place] 47.4 ng/mL Normal >29.9 [facility] Comment on above: Result Comment: Reference Range: Vitamin D status Range Deficiency <20 ng/mL Mild Deficiency 20-30 ng/mL Sufficiency 30-100 ng/mL Toxicity >100 ng/mL Performed By: #### U A #### [facility] [address] [place] [address] [place]. [place], [place] [phone] Patient Intake Representative: Adonis Aleman MD Cult,Urineon 02-08-2023 Cult,Urine Specimen Description .VOIDED URINE Culture ESCHERICHIA COLI 10 to 50,000 CFU/ML Report Status FINAL 02/08/2023 SUSCEPTIBILITY Organism ESCHERICHIA COLI Method ALEX Ampicillin 16 INTERMEDIATE Cefazolin <=4 SUSCEPTIBLE Cefazolin sensitivity results can be used to predict the effectiveness of oral cephalosporins (eg. Cephalexin) in uncomplicated Urinary Tract Infections due to E. coli, K. pneumoniae, and P. mirabilis Ceftriaxone <=0.25 SUSCEPTIBLE ESBL NEGATIVE Gentamicin <=1 SUSCEPTIBLE Levofloxacin <=0.12 SUSCEPTIBLE Nitrofurantoin <=16 SUSCEPTIBLE Piperacillin/Tazobac peguero <=4 SUSCEPTIBLE Tobramycin <=1 SUSCEPTIBLE Trimethoprim/Sulfa <=20 SUSCEPTIBLE Susceptible [facility] Comment on above: Performed By: #### U A #### [facility] [address] [place] [address] Dr. [place], [place] [phone] Patient Intake Representative: Adonis Aleman MD Urinalysis, Routineon 2022 Bilirubin, SemiQt,Ur Negative Normal NEG [facility] Comment on above: Performed By: #### U A #### [facility] [address] [place] [address] [place] [address] Patient Intake Representative: Adonis Aleman MD Blood, Urine Negative Normal NEG [facility] Comment on above: Performed By: #### U A #### [facility] [address] [place] [address] Dr. [place], [facility]83 Patient Intake Representative: Adonis Aleman MD Clarity (U) Clear Normal CLEAR [facility] Comment on above: Performed By: #### U A #### [facility] [address] [place] [address] [place] [phone] Patient Intake Representative: Adonis Aleman MD Color (U) Yellow Normal YEL [facility] Comment on above: Performed By: #### U A #### [address] [place], [facility]83 Patient Intake Representative: Adonis Aleman MD Glucose Ql (U) Negative Normal NEG [facility] Comment on above: Performed By: #### U A #### [address] [place], [facility]83 Patient Intake Representative: Adonis Aleman MD Ketones Ql (U) Negative Normal NEG [facility] Comment on above: Performed By: #### U A #### [address] [place], [facility]83 Patient Intake Representative: Adonis Aleman MD Leukocyte esterase Test strip Ql (U) Negative Normal NEG [facility] Comment on above: Performed By: #### U A #### [address] [place] [address] Patient Intake Representative: Adonis Aleman MD Nitrite,Ur Negative Normal [facility] Comment on above: Performed By: #### U A #### [facility] [address] [place] [address] [place] [address] Patient Intake Representative: Adonis Aleman MD PH,Ur 6.0 Normal 5.0-9.0 [facility] Comment on above: Performed By: #### U A #### [facility] [address] [place] [address] Patient Intake Representative: Adonis Aleman MD Protein Ql (U) Negative Normal NEG [facility] Comment on above: Performed By: #### U A #### [facility] [address] [place] [address] [place] [address] Patient Intake Representative: Adonis Aleman MD Spec. Clay,Ur 1.015 Normal 1.010-1.020 [facility] Comment on above: Performed By: #### U A #### [facility] [address] [place] [address] [place] [address] Patient Intake Representative: Adonis Aleman MD Urobilinogen,Ur Normal Normal NORM [facility] Comment on above: Performed By: #### U A #### [facility] [address] [place] [address] [place], [place] [phone] Patient Intake Representative: Adonis Aleman MD Hemoglobin A1Con 01-21-2023 Glucose [Mass/Vol] 180 mg/dL Normal [facility] Comment on above: Result Comment: The ADA and AACC recommend providing the estimated average glucose result to permit better patient understanding of their HBA1c result. Performed By: #### G LYHGB #### [facility] [employer] [address] [place] [address] Patient Intake Representative: Jarred Garcia MD HbA1c (Bld) [Mass fraction] 7.9 % High 4.0-6.0 [facility] Comment on above: Performed By: #### G LYHGB #### [facility] [employer] [address] [place] [address] Patient Intake Representative: Jarred Garcia MD Average glucose Estimated from glycated hemoglobin (Bld) [Mass/Vol] 180 mg/dL [facility] Comment on above: The ADA and AACC rec ommend providing the estimated average glucose result to permit better patient understanding of their HBA1c result. HbA1c (Bld) [Mass fraction] 7.9 % High 4.0 - 6.0 % [employer] Interpretation and review of laboratory results Abnormal [facility] POC Glucose Fingerstickon Glucose [Mass/Vol] 154 mg/dL High 65 - 105 mg/dL [employer] Interpretation and review of laboratory results Abnormal Picsean EKG 12 Leadon 01-15-2023 Atrial Rate 70 BPM [employer] Work Phone: P Henderson 59 degrees [employer] Work Phone: P-R Interval 148 ms [employer] Work Phone: Q-T Interval 412 ms [employer] Work Phone: QRS Duration 86 ms [employer] Work Phone: QTc Calculation (Bazett) 444 ms [employer] Work Phone: R Henderson -5 degrees [employer] Work Phone: T Henderson 73 degrees [employer] Work Phone: Ventricular Rate 70 BPM [employer] Work Phone: Normal sinus rhythm Low voltage QRS Possible Inferior infarct , age undetermined Abnormal ECG No previous ECGs available [facility] Marquis Gonzalez MD - 01/15/2023 Normal sinus rhythm Low voltage QRS Possible Inferior infarct , age undetermined Abnormal ECG No previous ECGs available [employer] Work Phone: [employer] Work Phone: POC Glucose Fingerstickon Glucose [Mass/Vol] 170 mg/dL High 65 - 105 mg/dL [facility] Interpretation and review of laboratory results Abnormal [facility] Glucose [Mass/Vol] 166 mg/dL High 65 - 105 mg/dL [facility] Interpretation and review of laboratory results Abnormal [facility] Glucose [Mass/Vol] 307 mg/dL High 65 - 105 mg/dL [facility] Interpretation and review of laboratory results Abnormal [facility] Glucose [Mass/Vol] 174 mg/dL High 65 - 105 mg/dL [facility] Interpretation and review of laboratory results Abnormal [facility] XR CHEST (SINGLE VIEW FRONTA L)on 01-15-2023 XR CHEST (SINGLE VIEW FRONTAL) EXAMINATION: ONE XRAY VIEW OF THE CHEST 01/15/2023 2:47 pm COMPARISON: 01/10/2023 HISTORY: ORDERING SYSTEM PROVIDED HISTORY: chest pain TECHNOLOGIST PROVIDED HISTORY: chest pain Reason for Exam: port upright FINDINGS: Cardiomediastinal silhouette stable. Stable bilateral bandlike pulmonary opacities. No new airspace disease. No pneumothorax. No pulmonary vascular congestion or edema. IMPRESSION: Unchanged subsegmental atelectasis No acute cardiopulmonary process Interpreted by: Benjamin Marcum MD Signed by: Benjamin Marcum MD 01/15/23 Final result Normal [facility] Unchanged subsegmental atelectasis No acute cardiopulmonary process [facility] RIS CONSOLIDATED EXAMINATION: ONE XRAY VIEW OF THE CHEST 01/15/2023 2:47 pm COMPARISON: 01/10/2023 HISTORY: ORDERING SYSTEM PROVIDED HISTORY: chest pain TECHNOLOGIST PROVIDED HISTORY: chest pain Reason for Exam: port upright FINDINGS: Cardiomediastinal silhouette stable. Stable bilateral bandlike pulmonary opacities. No new airspace disease. No pneumothorax. No pulmonary vascular congestion or edema. [facility] RIS CONSOLIDATED Benjamin Marcum MD - 01/15/2023 EXAMINATION: ONE XRAY VIEW OF THE CHEST 01/15/2023 2:47 pm COMPARISON: 01/10/2023 HISTORY: ORDERING SYSTEM PROVIDED HISTORY: chest pain TECHNOLOGIST PROVIDED HISTORY: chest pain Reason for Exam: port upright FINDINGS: Cardiomediastinal silhouette stable. Stable bilateral bandlike pulmonary opacities. No new airspace disease. No pneumothorax. No pulmonary vascular congestion or edema. IMPRESSION: Unchanged subsegmental atelectasis No acute cardiopulmonary process [employer] Phone: Radiology Study observation (narrative) [employer] Phone: XR CHEST (SINGLE VIEW FRONTA L)Ordered By: Benjamin Marcum on 01-15-2023 [employer] Phone: EKG 12 LeadOrdered By: Marquis Luz on 01-14-2023 Atrial Rate 71 BPM [employer] Phone: P Henderson 54 degrees [employer] Phone: P-R Interval 152 ms [employer] Phone: Q-T Interval 390 ms [employer] Phone: QRS Duration 88 ms [employer] Phone: QTc Calculation (Bazett) 423 ms [employer] Phone: R Henderson -2 degrees [employer] Phone: T Henderson 72 degrees [employer] Phone: Ventricular Rate 71 BPM [employer] Work Phone: [employer] Phone: EKG 12 Leadon 01-14-2023 Normal sinus rhythm Low voltage Possible Anterior infarct , age undetermined Abnormal ECG No previous ECGs available [facility] Marquis Gonzalez MD - 01/14/2023 Normal sinus rhythm Low voltage Possible Anterior infarct , age undetermined Abnormal ECG No previous ECGs available [employer] Phone: POC Glucose Fingerstickon Glucose [Mass/Vol] 198 mg/dL High 65 - 105 mg/dL [employer] Interpretation and review of laboratory results Abnormal [facility] Glucose [Mass/Vol] 170 mg/dL High 65 - 105 mg/dL [facility] Interpretation and review of laboratory results Abnormal [facility] Glucose [Mass/Vol] 149 mg/dL High 65 - 105 mg/dL [facility] Interpretation and review of laboratory results Abnormal [facility] Glucose [Mass/Vol] 105 mg/dL 65 - 105 mg/dL [facility] Glucose [Mass/Vol] 55 mg/dL Low 65 - 105 mg/dL [facility] Interpretation and review of laboratory results Abnormal [facility] Cult,Urineon 01-13-2023 Cult,Urine Specimen Description .CLEAN CATCH URINE Culture ESCHERICHIA COLI >[id number] CFU/ML ESCHERICHIA COLI >[id number] CFU/ML 2ND COLONY TYPE Report Status FINAL 01/13/2023 SUSCEPTIBILITY Organism ESCHERICHIA COLI Method ALEX Ampicillin 16 INTERMEDIATE Cefazolin <=4 SUSCEPTIBLE Cefazolin sensitivity results can be used to predict the effectiveness of oral cephalosporins (eg. Cephalexin) in uncomplicated Urinary Tract Infections due to E. coli, K. pneumoniae, and P. mirabilis Ceftriaxone <=0.25 SUSCEPTIBLE ESBL NEGATIVE Gentamicin <=1 SUSCEPTIBLE Levofloxacin <=0.12 SUSCEPTIBLE Nitrofurantoin <=16 SUSCEPTIBLE Piperacillin/Tazobac peguero <=4 SUSCEPTIBLE Tobramycin <=1 SUSCEPTIBLE Trimethoprim/Sulfa <=20 SUSCEPTIBLE SUSCEPTIBILITY Organism EC COL2ND Method ALEX Ampicillin 16 INTERMEDIATE Cefazolin <=4 SUSCEPTIBLE Cefazolin sensitivity results can be used to predict the effectiveness of oral cephalosporins (eg. Cephalexin) in uncomplicated Urinary Tract Infections due to E. coli, K. pneumoniae, and P. mirabilis Ceftriaxone <=0.25 SUSCEPTIBLE ESBL NEGATIVE Gentamicin <=1 SUSCEPTIBLE Levofloxacin <=0.12 SUSCEPTIBLE Nitrofurantoin <=16 SUSCEPTIBLE Piperacillin/Tazobac peguero <=4 SUSCEPTIBLE Tobramycin <=1 SUSCEPTIBLE Trimethoprim/Sulfa <=20 SUSCEPTIBLE Susceptible [facility] Comment on above: Performed By: #### U #### [place] [address] Patient Intake Representative: Jarred Garcia MD Culture, Urineon 01-13-2023 Interpretation and review of laboratory results Abnormal [facility] Microorganism identified Cx Nom (Unsp spec) ESCHERICHIA COLI >[id number] CFU/ML Abnormal [facility] Microorganism identified Cx Nom (Unsp spec) ESCHERICHIA COLI >[id number] CFU/ML 2ND COLONY TYPE Abnormal [facility] Specimen Description .CLEAN CATCH URINE [facility] POC Glucose Fingerstickon Glucose [Mass/Vol] 108 mg/dL High 65 - 105 mg/dL [facility] Interpretation and review of laboratory results Abnormal [facility] Glucose [Mass/Vol] 130 mg/dL High 65 - 105 mg/dL [facility] Interpretation and review of laboratory results Abnormal [facility] Glucose [Mass/Vol] 219 mg/dL High 65 - 105 mg/dL [facility] Interpretation and review of laboratory results Abnormal [facility] Glucose [Mass/Vol] 118 mg/dL High 65 - 105 mg/dL [facility] Interpretation and review of laboratory results Abnormal [facility] POC Glucose Fingerstickon Glucose [Mass/Vol] 237 mg/dL High 65 - 105 mg/dL [facility] Interpretation and review of laboratory results Abnormal [facility] Glucose [Mass/Vol] 313 mg/dL High 65 - 105 mg/dL [facility] Interpretation and review of laboratory results Abnormal [facility] Glucose [Mass/Vol] 264 mg/dL High 65 - 105 mg/dL [facility] Interpretation and review of laboratory results Abnormal [facility] Glucose [Mass/Vol] 149 mg/dL High 65 - 105 mg/dL [facility] Interpretation and review of laboratory results Abnormal [facility] Basic Metab w/rfx MGon 01-11 Anion gap [Moles/Vol] 12 mmol/L Normal 9-17 Kellie cy [facility] Comment on above: Performed By: #### B MPX, CDP #### [facility] [address] [place] [address] Patient Intake Representative: Jarred Garcia MD Calcium [Mass/Vol] 8.9 mg/dL Normal 8.6-10.4 [facility] Comment on above: Performed By: #### B MPX, CDP #### [facility] [address] [place] [address] Patient Intake Representative: Jarred Garcia MD Chloride [Moles/Vol] 101 mmol/L Normal 98-107 [facility] Comment on above: Performed By: #### B MPX, CDP #### [facility] [address] [place] [address] Patient Intake Representative: Jarred Garcia MD CO2 [Moles/Vol] 25 mmol/L Normal 20-31 [facility] Comment on above: Performed By: #### B MPX, CDP #### [facility] [address] [place] [address] Patient Intake Representative: Jarred Garcia MD Creatinine [Mass/Vol] 1.26 mg/dL High 0.50-0.90 [facility] Comment on above: Performed By: #### B MPX, CDP #### [address] [address] Patient Intake Representative: Jarred Garcia MD GFR/1.73 sq M.predicted among non-blacks MDRD (S/P/Bld) [Vol rate/Area] 47 mL/min/{1.73_m2} Low >60 [facility] Comment on above: Result Comment: These results are not intended for use in patients <18 years of age. eGFR results are calculated without a race factor using the 2020 CKD-EPI equation. Careful clinical correlation is recommended, particularly when comparing to results calculated using previous equations. The CKD-EPI equation is less accurate in patients with extremes of muscle mass, extra-renal metabolism of creatine, excessive creatine ingestion, or following therapy that affects renal tubular secretion. Performed By: #### B MPX, CDP #### [facility] [place] [address] Patient Intake Representative: Jarred Garcia MD Glucose [Mass/Vol] 195 mg/dL High 70-99 [facility] Comment on above: Performed By: #### B MPX, CDP #### [facility] [address] [place] [address] Patient Intake Representative: Jarred Garcia MD Potassium [Moles/Vol] 4.7 mmol/L Normal 3.7-5.3 [facility] Comment on above: Performed By: #### B MPX, CDP #### [facility] [address] [place] [address] Patient Intake Representative: Jarred Garcia MD Sodium [Moles/Vol] 138 mmol/L Normal 135-144 [facility] Comment on above: Performed By: #### B MPX, CDP #### [facility] [address] [place] [address] Patient Intake Representative: Jarred Garcia MD Urea nitrogen [Mass/Vol] 15 mg/dL Normal 8-23 [facility] Comment on above: Performed By: #### B MPX, CDP #### [facility] [address] [place] [address] Patient Intake Representative: Jarred Garcia MD Basic Metabolic Panel w/ Ref myles to MGon 01-11-2023 Anion gap [Moles/Vol] 12 mmol/L 9 - 17 mmol/L [facility] Calcium [Mass/Vol] 8.9 mg/dL 8.6 - 10. 4 mg/dL [facility] Chloride [Moles/Vol] 101 mmol/L 98 - 10 7 mmol/L [facility] CO2 [Moles/Vol] 25 mmol/L 20 - 31 mmol/L [facility] Creatinine [Mass/Vol] 1.26 mg/dL High 0.50 - 0.90 mg/dL [facility] GFR/1.73 sq M.predicted MDRD (S/P/Bld) [Vol rate/Area] 47 mL/min/{1.73_m2} Low - PINF [facility] Comment on above: These results are not intended for use in patients <18 years of age. eGFR results are calculated without a race factor using the 2020 CKD-EPI equation. Careful clinical correlation is recommended, particularly when comparing to results calculated using previous equations. The CKD-EPI equation is less accurate in patients with extremes of muscle mass, extra-renal metabolism of creatine, excessive creatine ingestion, or following therapy that affects renal tubular secretion. Glucose [Mass/Vol] 195 mg/dL High 70 - 99 mg/dL [facility] Interpretation and review of laboratory results Abnormal [facility] Potassium [Moles/Vol] 4.7 mmol/L 3.7 - 5.3 mmol/L [facility] Sodium [Moles/Vol] 138 mmol/L 135 - 144 mmol/L [facility] Urea nitrogen [Mass/Vol] 15 mg/dL 8 - 23 mg/dL [facility] CBC with Auto Differentialon 01-11-2023 Basophils (Bld) [#/Vol] B ON [facility] Basophils/100 WBC (Bld) 0 % 0 - 2 % B ON [facility] Eosinophils (Bld) [#/Vol] 0.04 10*3/uL [facility] Eosinophils/100 WBC (Bld) 1 % 1 - 4 % [facility] Erythrocyte distribution width (RBC) [Ratio] 16.7 % High 11.8 - 14.4 % [facility] Hematocrit (Bld) [Volume fraction] 34.7 % Low 36.3 - 47.1 % [facility] Hemoglobin (Bld) [Mass/Vol] 10.6 g/dL Low 11.9 - 15.1 g/dL [facility] Immature granulocytes (Bld) [#/Vol] [facility] Immature granulocytes/100 WBC (Bld) 0 % 0 [facility] Interpretation and review of laboratory results Abnormal [facility] Lymphocytes/100 WBC (Bld) 13 % Low 24 - 43 % [facility] Lymphocytes/100 WBC (Bld) 0.73 % Low [facility] MCH (RBC) [Entitic mass] 29.4 pg 25. 2 - 33.5 pg [facility] MCHC (RBC) [Mass/Vol] 30.5 g/dL 28.4 - 34.8 g/dL [facility] MCV (RBC) [Entitic vol] 96.4 fL 82.6 - 102.9 fL [facility] Monocytes/100 WBC (Bld) 9 % 3 - 12 % [facility] Monocytes/100 WBC (Bld) 0.49 % B ON [facility] Neutrophils/100 WBC (Bld) 77 % High 36 - 65 % [facility] NRBC Automated 0.0 0.0 per 100 WBC [facility] Platelet mean volume (Bld) [Entitic vol] 10.1 fL 8.1 - 13.5 fL [facility] Platelets (Bld) [#/Vol] 104 10*3/uL Low [facility] RBC (Bld) [#/Vol] 3.60 10*6/uL Low 3.95 - 5.1 1 m/uL [facility] RBC (Bld) [#/Vol] ANISOCYTOSIS PRESENT [facility] Segmented neutrophils/100 WBC (Bld) 4.39 % [facility] WBC other (Bld) [#/Vol] 5.7 B ON [facility] CBC with Diffon 01-11-2023 Abs. Basophil <0.03 Normal 0.00-0.20 [facility] Comment on above: Performed By: #### B MPX, CDP #### [facility] [place] [address] Patient Intake Representative: Jarred Garcia MD Abs.Imm.Granulocyte <0.03 Normal 0.00-0.30 [facility] Comment on above: Performed By: #### B MPX, CDP #### [facility] [address] [place] [address] Patient Intake Representative: Jarred Garcia MD Abs.Neutrophil (Seg) 4.39 k/uL Normal 1.50-8.10 [facility] Comment on above: Performed By: #### B MPX, CDP #### [address] [address] Patient Intake Representative: Jarred Garcia MD Basophils/100 WBC (Bld) 0 % Normal 0-2 [facility] Comment on above: Performed By: #### B MPX, CDP #### [address] [address] Patient Intake Representative: Jarred Garcia MD Eosinophils (Bld) [#/Vol] 0.04 10*3/uL Normal 0.00-0.44 [facility] Comment on above: Performed By: #### B MPX, CDP #### [address] [address] Patient Intake Representative: Jarred Garcia MD Eosinophils/100 WBC (Bld) 1 % Normal 1-4 [facility] Comment on above: Performed By: #### B MPX, CDP #### [address] [address] Patient Intake Representative: Jarred Garcia MD Erythrocyte distribution width (RBC) [Ratio] 16.7 % High 11.8-14.4 [facility] Comment on above: Performed By: #### B MPX, CDP #### [address] [address] Patient Intake Representative: Jarred Garcia MD Hematocrit (Bld) [Volume fraction] 34.7 % Low 36.3-47.1 [facility] Comment on above: Performed By: #### B MPX, CDP #### [facility] [employer] [address] [place] [address] Patient Intake Representative: Jarred Garcia MD Hemoglobin (Bld) [Mass/Vol] 10.6 g/dL Low 11.9-15.1 [facility] Comment on above: Performed By: #### B MPX, CDP #### [address] [address] Patient Intake Representative: Jarred Garcia MD Immature granulocytes/100 WBC (Bld) 0 % Normal 0 [facility] Comment on above: Performed By: #### B MPX, CDP #### [address] [address] Patient Intake Representative: Jarred Garcia MD Lymphocytes (Bld) [#/Vol] 0.73 10*3/uL Low 1.10-3.70 [facility] Comment on above: Performed By: #### B MPX, CDP #### [address] [address] Patient Intake Representative: Jarred Garcia MD Lymphocytes/100 WBC (Bld) 13 % Low 24-43 [facility] Comment on above: Performed By: #### B MPX, CDP #### [address] [address] Patient Intake Representative: Jarred Garcia MD MCH (RBC) [Entitic mass] 29.4 pg Normal 25.2-33.5 [facility] Comment on above: Performed By: #### B MPX, CDP #### [address] [address] Patient Intake Representative: Jarred Garcia MD MCHC (RBC) [Mass/Vol] 30.5 g/dL Normal 28.4-34.8 [facility] Comment on above: Performed By: #### B MPX, CDP #### [address] [address] Patient Intake Representative: Jarred Garcia MD MCV (RBC) [Entitic vol] 96.4 fL Normal 82.6-102.9 [facility] Comment on above: Performed By: #### B MPX, CDP #### [address] [address] Patient Intake Representative: Jarred Garcia MD Monocytes (Bld) [#/Vol] 0.49 10*3/uL Normal 0.10-1.20 [facility] Comment on above: Performed By: #### B MPX, CDP #### [address] [address] Patient Intake Representative: Jarred Garcia MD Monocytes/100 WBC (Bld) 9 % Normal 3-12 [facility] Comment on above: Performed By: #### B MPX, CDP #### [address] [address] Patient Intake Representative: Jarred Garcia MD Neutrophil (Seg) 77 % High 36-65 [facility] Comment on above: Performed By: #### B MPX, CDP #### [address] [address] Patient Intake Representative: Jarred Garcia MD NRBC Automated 0.0 per 100 WBC Normal 0.0 [facility] Comment on above: Performed By: #### B MPX, CDP #### [address] [address] Patient Intake Representative: Jarred Garcia MD Platelet mean volume (Bld) [Entitic vol] 10.1 fL Normal 8.1-13.5 [facility] Comment on above: Performed By: #### B MPX, CDP #### [address] [address] Patient Intake Representative: Jarred Garcia MD Platelets (Bld) [#/Vol] 104 10*3/uL Low 138-453 [facility] Comment on above: Performed By: #### B MPX, CDP #### [address] [address] Patient Intake Representative: Jarred Garcia MD RBC (Bld) [#/Vol] 3.60 10*6/uL Low 3.95-5.11 [facility] Comment on above: Performed By: #### B MPX, CDP #### [facility] [address] [place] [address] Patient Intake Representative: Jarred Garcia MD RBC morphology finding Nom (Bld) ANISOCYTOSIS PRESENT Normal [facility] Comment on above: Performed By: #### B MPX, CDP #### [facility] [address] [place] [address] Patient Intake Representative: Jarred Garcia MD WBC (Bld) [#/Vol] 5.7 10*3/uL Normal 3.5-11.3 [facility] Comment on above: Performed By: #### B MPX, CDP #### [facility] [address] [place] [address] Patient Intake Representative: Jarred Garcia MD CT HEAD WO CONTRASTon 2022 CT HEAD WO CONTRAST EXAMINATION: CT OF THE HEAD WITHOUT CONTRAST 01/10/2023 10:24 pm TECHNIQUE: CT of the head was performed without the administration of intravenous contrast. Automated exposure control, iterative reconstruction, and/or weight based adjustment of the mA/kV was utilized to reduce the radiation dose to as low as reasonably achievable. COMPARISON: 01/10/2023 CT head HISTORY: ORDERING SYSTEM PROVIDED HISTORY: repeat head ct after fall this am, confusion TECHNOLOGIST PROVIDED HISTORY: repeat head ct after fall this am, confusion Decision Support Exception - unselect if not a suspected or confirmed emergency medical condition->Emergency Medical Condition (MA) FINDINGS: BRAIN/VENTRICLES: There is no acute intracranial hemorrhage, mass effect or midline shift. No abnormal extra-axial fluid collection. The mckoy-white differentiation is maintained without evidence of an acute infarct. There is no evidence of hydrocephalus. There are nonspecific areas of hypoattenuation within the periventricular and subcortical white matter, which likely represent chronic microvascular ischemic change. There is prominence of the ventricles and sulci due to global parenchymal volume loss. ORBITS: The visualized portion of the orbits demonstrate no acute abnormality. SINUSES: The visualized paranasal sinuses and mastoid air cells demonstrate no acute abnormality. SOFT TISSUES/SKULL: No acute abnormality of the visualized skull or soft tissues. IMPRESSION: No acute intracranial abnormality. Interpreted by: Maryam Philip MD Signed by: Maryam Philip MD 01/10/23 Final result Normal [facility] POC Glucose Fingerstickon Glucose [Mass/Vol] 273 mg/dL High 65 - 105 mg/dL [facility] Interpretation and review of laboratory results Abnormal [facility] Glucose [Mass/Vol] 269 mg/dL High 65 - 105 mg/dL [facility] Interpretation and review of laboratory results Abnormal [facility] Glucose [Mass/Vol] 250 mg/dL High 65 - 105 mg/dL [facility] Interpretation and review of laboratory results Abnormal [facility] Glucose [Mass/Vol] 218 mg/dL High 65 - 105 mg/dL [facility] Interpretation and review of laboratory results Abnormal [facility] Glucose [Mass/Vol] 144 mg/dL High 65 - 105 mg/dL [facility] Interpretation and review of laboratory results Abnormal [facility] Troponinon 01-11-2023 Troponin, High Sens <6 Normal 0-14 [facility] Comment on above: Result Comment: High Sensitivity Troponin values cannot be compared with other Troponin methodologies. Performed By: #### T ROPI #### [facility] [employer] [address] [place] [address] Patient Intake Representative: Jarred Garcia MD Troponin I.cardiac High sensitivity method [Mass/Vol] ng/L 0 - 14 ng/L [facility] Comment on above: High Sensitivity Tro ponin values cannot be compared with other Troponin methodologies. [facility] Ammoniaon 01-10-2023 Ammonia (P) [Moles/Vol] 30 umol/L Normal 11-41 [facility] Comment on above: Performed By: #### U A #### [facility] [address] [place] [address] Patient Intake Representative: Adonis Aleman MD Basic Metabolic Panelon 05- Anion gap [Moles/Vol] 8 mmol/L Low 9 - 17 mmol/L [facility] Calcium [Mass/Vol] 9.3 mg/dL 8.6 - 10. 4 mg/dL [facility] Chloride [Moles/Vol] 96 mmol/L Low 98 - 10 7 mmol/L [facility] CO2 [Moles/Vol] 30 mmol/L 20 - 31 mmol/L [facility] Creatinine [Mass/Vol] 1.41 mg/dL High 0.50 - 0.90 mg/dL [facility] GFR/1.73 sq M.predicted MDRD (S/P/Bld) [Vol rate/Area] 41 mL/min/{1.73_m2} Low - PIN[facility] Comment on above: These results are not intended for use in patients <18 years of age. eGFR results are calculated without a race factor using the 2020 CKD-EPI equation. Careful clinical correlation is recommended, particularly when comparing to results calculated using previous equations. The CKD-EPI equation is less accurate in patients with extremes of muscle mass, extra-renal metabolism of creatine, excessive creatine ingestion, or following therapy that affects renal tubular secretion. Glucose [Mass/Vol] 288 mg/dL High 70 - 99 mg/dL [facility] Animation Interpretation and review of laboratory results Abnormal [facility] Potassium [Moles/Vol] 4.7 mmol/L 3.7 - 5.3 mmol/L [facility] Sodium [Moles/Vol] 134 mmol/L Low 135 - 144 mmol/L [facility] Urea nitrogen [Mass/Vol] 18 mg/dL 8 - 23 mg/dL [facility]beat[facility] i.[facility] Basic Metabolic Profon 01-10 Anion gap [Moles/Vol] 8 mmol/L Low 9-17 [facility] Comment on above: Performed By: #### B MP #### [employer] [address] [place], [place] [id number] Patient Intake Representative: Jarred Garcia MD Calcium [Mass/Vol] 9.3 mg/dL Normal 8.6-10.4 [facility] Comment on above: Performed By: #### B MP #### [facility] [address] [place] [address] Patient Intake Representative: Jarred Garcia MD Chloride [Moles/Vol] 96 mmol/L Low 98-107 [facility] Comment on above: Performed By: #### B MP #### [facility] [address] [place] [address] Patient Intake Representative: Jarred Garcia MD CO2 [Moles/Vol] 30 mmol/L Normal 20-31 [facility] Comment on above: Performed By: #### B MP #### [facility] [employer] [address] [place] [address] Patient Intake Representative: Jarred Garcia MD Creatinine [Mass/Vol] 1.41 mg/dL High 0.50-0.90 [facility] Comment on above: Performed By: #### B MP #### [address] [address] Patient Intake Representative: Jarred Garcia MD GFR/1.73 sq M.predicted among non-blacks MDRD (S/P/Bld) [Vol rate/Area] 41 mL/min/{1.73_m2} Low >60 [facility] Comment on above: Result Comment: These results are not intended for use in patients <18 years of age. eGFR results are calculated without a race factor using the 2020 CKD-EPI equation. Careful clinical correlation is recommended, particularly when comparing to results calculated using previous equations. The CKD-EPI equation is less accurate in patients with extremes of muscle mass, extra-renal metabolism of creatine, excessive creatine ingestion, or following therapy that affects renal tubular secretion. Performed By: #### B MP #### [address] [address] Patient Intake Representative: Jarred Garcia MD Glucose [Mass/Vol] 288 mg/dL High 70-99 [facility] Comment on above: Performed By: #### B MP #### [facility] [address] [place] [address] Patient Intake Representative: Jarred Garcia MD Potassium [Moles/Vol] 4.7 mmol/L Normal 3.7-5.3 [facility] Comment on above: Performed By: #### B MP #### [address] [address] Patient Intake Representative: Jarred Garcia MD Sodium [Moles/Vol] 134 mmol/L Low 135-144 [facility] Comment on above: Performed By: #### B MP #### [address] [address] Patient Intake Representative: Jarred Garcia MD Urea nitrogen [Mass/Vol] 18 mg/dL Normal 8-23 [facility] Comment on above: Performed By: #### B MP #### [address] [address] Patient Intake Representative: Jarred Garcia MD Glucose [Mass/Vol] 470 mg/dL Critically high 70-99 [facility] Comment on above: Performed By: #### L IVP, TROPI #### [facility] [address] [place] [address] Patient Intake Representative: Adonis Aleman MD Anion gap [Moles/Vol] 9 mmol/L Normal 9-17 [facility] Comment on above: Performed By: #### L IVP, TROPI #### [facility] [address] [place] [address] Patient Intake Representative: Adonis Aleman MD BUN/CRE Ratio 13 Normal 9-20 [facility] Comment on above: Performed By: #### L IVP, TROPI #### [facility] [address] [place] [address] Patient Intake Representative: Adonis Aleman MD Calcium [Mass/Vol] 9.4 mg/dL Normal 8.6-10.4 [facility] Comment on above: Performed By: #### L IVP, TROPI #### [facility] [address] [place] [address] Patient Intake Representative: Adonis Aleman MD Chloride [Moles/Vol] 92 mmol/L Low 98-107 [facility] Comment on above: Performed By: #### L IVP, TROPI #### [facility] [address] [place] [address] Patient Intake Representative: Adonis Aleman MD CO2 [Moles/Vol] 29 mmol/L Normal 20-31 [facility] Comment on above: Performed By: #### L IVP, TROPI #### [facility] [address] [place] [address] Patient Intake Representative: Adonis Aleman MD Creatinine [Mass/Vol] 1.60 mg/dL High 0.50-0.90 [facility] Comment on above: Performed By: #### L IVP, TROPI #### [facility] [address] [place] [address] Patient Intake Representative: Adonis Aleman MD GFR/1.73 sq M.predicted among non-blacks MDRD (S/P/Bld) [Vol rate/Area] 35 mL/min/{1.73_m2} Low >60 [facility] Comment on above: Result Comment: These results are not intended for use in patients <18 years of age. eGFR results are calculated without a race factor using the 2020 CKD-EPI equation. Careful clinical correlation is recommended, particularly when comparing to results calculated using previous equations. The CKD-EPI equation is less accurate in patients with extremes of muscle mass, extra-renal metabolism of creatine, excessive creatine ingestion, or following therapy that affects renal tubular secretion. Performed By: #### L IVP, TROPI #### [facility] [address] [place] [address] Patient Intake Representative: Adonis Aleman MD Potassium [Moles/Vol] 5.5 mmol/L High 3.7-5.3 [facility] Comment on above: Performed By: #### L IVP, TROPI #### [facility] [address] [place] [address] [place] [address] Patient Intake Representative: Adonis Aleman MD Sodium [Moles/Vol] 130 mmol/L Low 135-144 [facility] Comment on above: Performed By: #### L IVP, TROPI #### [facility] [address] [place] [address] [place] [address] Patient Intake Representative: Adonis Aleman MD Urea nitrogen [Mass/Vol] 20 mg/dL Normal 8-23 [facility] Comment on above: Performed By: #### L IVP, TROPI #### [facility] [address] [place] [address] [place] [address] Patient Intake Representative: Adonis Aleman MD CALCIUM, IONIC (POC)on 01-10 POC Ionized Calcium 1.24 mmol/L 1.15 - 1 .33 mmol/L [facility] CBC with Diffon 01-10-2023 Abs. Basophil <0.03 Normal 0.00-0.20 [facility] Comment on above: Performed By: #### L IVP, TROPI #### [facility] [address] [place] [address] [place] [address] Patient Intake Representative: Adonis Aleman MD Abs.Imm.Granulocyte <0.03 Normal 0.00-0.30 [facility] Comment on above: Performed By: #### L IVP, TROPI #### [address] [place] [address] Patient Intake Representative: Adonis Aleman MD Abs.Neutrophil (Seg) 2.31 k/uL Normal 1.50-8.10 [facility] Comment on above: Performed By: #### L IVP, TROPI #### [address] [place], [place] [id number] Patient Intake Representative: Adonis Aleman MD Basophils/100 WBC (Bld) 0 % Normal 0-2 [facility] Comment on above: Performed By: #### L IVP, TROPI #### [address] [place], [place] [id number] Patient Intake Representative: Adonis Aleman MD Eosinophils (Bld) [#/Vol] 0.04 10*3/uL Normal 0.00-0.44 [facility] Comment on above: Performed By: #### L IVP, TROPI #### [address] [place], [place] [id number] Patient Intake Representative: Adonis Aleman MD Eosinophils/100 WBC (Bld) 1 % Normal 1-4 [facility] Comment on above: Performed By: #### L IVP, TROPI #### [address] [place], [facility]83 Patient Intake Representative: Adonis Aleman MD Erythrocyte distribution width (RBC) [Ratio] 16.4 % High 11.8-14.4 [facility] Comment on above: Performed By: #### L IVP, TROPI #### [address] [place], [facility]83 Patient Intake Representative: Adonis Aleman MD Hematocrit (Bld) [Volume fraction] 32.6 % Low 36.3-47.1 [facility] Comment on above: Performed By: #### L IVP, TROPI #### [address] [place], [place] [phone] Patient Intake Representative: Adonis Aleman MD Hemoglobin (Bld) [Mass/Vol] 10.3 g/dL Low 11.9-15.1 [facility] Comment on above: Performed By: #### L IVP, TROPI #### [address] [place], [place] [phone] Patient Intake Representative: Adonis Aleman MD Immature granulocytes/100 WBC (Bld) 0 % Normal 0 [facility] Comment on above: Performed By: #### L IVP, TROPI #### [facility] [address] [place], [place] [phone] Patient Intake Representative: Adonis Aleman MD Lymphocytes (Bld) [#/Vol] 0.85 10*3/uL Low 1.10-3.70 [facility] Comment on above: Performed By: #### L IVP, TROPI #### [address] [place], [place] [phone] Patient Intake Representative: Adonis Aleman MD Lymphocytes/100 WBC (Bld) 24 % Normal 24-43 [facility] Comment on above: Performed By: #### L IVP, TROPI #### [address] [place], [facility]83 Patient Intake Representative: Adonis Aleman MD MCH (RBC) [Entitic mass] 29.8 pg Normal 25.2-33.5 [facility] Comment on above: Performed By: #### L IVP, TROPI #### [address] [place], [place] [phone] Patient Intake Representative: Adonis Aleman MD MCHC (RBC) [Mass/Vol] 31.6 g/dL Normal 28.4-34.8 [facility] Comment on above: Performed By: #### L IVP, TROPI #### [facility] [address] [place] [address] [place] [place], [place] [phone] Patient Intake Representative: Adonis Aleman MD MCV (RBC) [Entitic vol] 94.2 fL Normal 82.6-102.9 [facility] Comment on above: Performed By: #### L IVP, TROPI #### [facility] [address] [place], [place] [phone] Patient Intake Representative: Adonis Aleman MD Monocytes (Bld) [#/Vol] 0.28 10*3/uL Normal 0.10-1.20 [facility] Comment on above: Performed By: #### L IVP, TROPI #### [facility] [address] [place], [place] [phone] Patient Intake Representative: Adonis Aleman MD Monocytes/100 WBC (Bld) 8 % Normal 3-12 [facility] Comment on above: Performed By: #### L IVP, TROPI #### [facility] [address] [place] [address] Patient Intake Representative: Adonis Aleman MD Neutrophil (Seg) 66 % High 36-65 [facility] Comment on above: Performed By: #### L IVP, TROPI #### [facility] [address] [place], [place] [phone] Patient Intake Representative: Adonis Aleman MD NRBC Automated 0.0 per 100 WBC Normal 0.0 [facility] Comment on above: Performed By: #### L IVP, TROPI #### [facility] [address] [place] [address] [place] [address] Patient Intake Representative: Adonis Aleman MD Platelet Count See Reflexed IPF Result Normal 138-453 [facility] Comment on above: Performed By: #### L IVP, TROPI #### [facility] [address] [place] [address] Patient Intake Representative: Adonis Aleman MD RBC (Bld) [#/Vol] 3.46 10*6/uL Low 3.95-5.11 [facility] Comment on above: Performed By: #### L IVP, TROPI #### [facility] [address] [place], [place] [phone] Patient Intake Representative: Adonis Aleman MD WBC (Bld) [#/Vol] 3.5 10*3/uL Normal 3.5-11.3 [facility] Comment on above: Performed By: #### L IVP, TROPI #### [facility] [address] [place] [address] Patient Intake Representative: Adonis Aleman MD CT CERVICAL SPINE WO MAYNOR Lechuga 01-10-2023 CT CERVICAL SPINE WO CONTRAST EXAMINATION: CT OF THE CERVICAL SPINE WITHOUT CONTRAST 01/10/2023 12:30 pm TECHNIQUE: CT of the cervical spine was performed without the administration of intravenous contrast. Multiplanar reformatted images are provided for review. Automated exposure control, iterative reconstruction, and/or weight based adjustment of the mA/kV was utilized to reduce the radiation dose to as low as reasonably achievable. COMPARISON: 10/03/2022 HISTORY: ORDERING SYSTEM PROVIDED HISTORY: fall TECHNOLOGIST PROVIDED HISTORY: fall Decision Support Exception - unselect if not a suspected or confirmed emergency medical condition->Emergency Medical Condition (MA) FINDINGS: BONES/ALIGNMENT: Status post C5-C7 ACDF. Hardware appears intact and normally aligned without complication. There is no acute cervical spine fracture. Note is made of malalignment of the lateral masses of C1 and C2 with patient's head turned towards the left during scanning (series 2/sample image 26 and series 601/sample image 38). DEGENERATIVE CHANGES: [id number] multilevel disc disease. SOFT TISSUES: There is no prevertebral soft tissue swelling. IMPRESSION: New malalignment of the lateral masses of C1 and C2 elicited by patient's head turned towards the left during scanning, suggestive of rotatory atlantoaxial subluxation. Underlying instability is not excluded. No acute cervical spine fracture identified. MR follow-up may be useful as clinically warranted. Interpreted by: Emil Green MD Signed by: Emil Green MD 01/10/23 Final result Normal [facility] CT CHEST ABDOMEN PELVIS WO C ONTRASTon 01-10-2023 CT CHEST ABDOMEN PELVIS WO CONTRAST EXAMINATION: CT OF THE CHEST, ABDOMEN, AND PELVIS WITHOUT CONTRAST 01/10/2023 12:31 pm TECHNIQUE: CT of the chest, abdomen and pelvis was performed without the administration of intravenous contrast. Multiplanar reformatted images are provided for review. Automated exposure control, iterative reconstruction, and/or weight based adjustment of the mA/kV was utilized to reduce the radiation dose to as low as reasonably achievable. COMPARISON: 10/03/2022 HISTORY: ORDERING SYSTEM PROVIDED HISTORY: fall TECHNOLOGIST PROVIDED HISTORY: fall Decision Support Exception - unselect if not a suspected or confirmed emergency medical condition->Emergency Medical Condition (MA) FINDINGS: Chest: Mediastinum: No cardiomegaly or pericardial effusion. Moderate coronary artery calcifications. Mildly dilated main pulmonary artery suggesting pulmonary arterial hypertension. Scattered atherosclerotic calcifications of the thoracic aorta and great vessel origins. No mediastinal adenopathy appreciated. Lungs/pleura: Peripheral pulmonary fibrotic changes. Bibasilar dependent atelectasis. No superimposed dominant mass or consolidation. No effusion or pneumothorax. Soft Tissues/Bones: Multilevel disc disease. Fusion hardware within the lower cervical spine. No acute fracture or aggressive osseous lesion. Abdomen/Pelvis: Evaluation of the solid and hollow abdominal viscera is limited without intravenous contrast administration. Organs: Mild splenomegaly. Cholelithiasis without CT evidence of acute cholecystitis. Hepatic cirrhosis. Otherwise unremarkable. GI/Bowel: No acute obstruction. No appreciable bowel wall thickening. Probable constipation. No acute appendicitis. Pelvis: Within normal limits. Peritoneum/Retroperi toneum: No adenopathy. Moderate atherosclerotic calcification of the abdominal aorta and major branch vessels. Bones/Soft Tissues: No acute fracture or aggressive osseous lesion. Chronic L3 vertebral compression fracture with evidence of prior cement augmentation. IMPRESSION: 1. No acute traumatic process within the chest, abdomen and pelvis. 2. Hepatic cirrhosis with splenomegaly. 3. Cholelithiasis without CT evidence of acute cholecystitis. 4. Additional nonemergent findings, as above. Interpreted by: Emil Green MD Signed by: Emil Green MD 01/10/23 Final result Normal [facility] CT HEAD WO CONTRASTon 2022 No acute intracranial abnormality. [facility] RIS CONSOLIDATED EXAMINATION: CT OF THE HEAD WITHOUT CONTRAST 01/10/2023 10:24 pm TECHNIQUE: CT of the head was performed without the administration of intravenous contrast. Automated exposure control, iterative reconstruction, and/or weight based adjustment of the mA/kV was utilized to reduce the radiation dose to as low as reasonably achievable. COMPARISON: 01/10/2023 CT head HISTORY: ORDERING SYSTEM PROVIDED HISTORY: repeat head ct after fall this am, confusion TECHNOLOGIST PROVIDED HISTORY: repeat head ct after fall this am, confusion Decision Support Exception - unselect if not a suspected or confirmed emergency medical condition->Emergency Medical Condition (MA) FINDINGS: BRAIN/VENTRICLES: There is no acute intracranial hemorrhage, mass effect or midline shift. No abnormal extra-axial fluid collection. The mckoy-white differentiation is maintained without evidence of an acute infarct. There is no evidence of hydrocephalus. There are nonspecific areas of hypoattenuation within the periventricular and subcortical white matter, which likely represent chronic microvascular ischemic change. There is prominence of the ventricles and sulci due to global parenchymal volume loss. ORBITS: The visualized portion of the orbits demonstrate no acute abnormality. SINUSES: The visualized paranasal sinuses and mastoid air cells demonstrate no acute abnormality. SOFT TISSUES/SKULL: No acute abnormality of the visualized skull or soft tissues. [facility] Maryam Peña MD - 01/10/2023 EXAMINATION: CT OF THE HEAD WITHOUT CONTRAST 01/10/2023 10:24 pm TECHNIQUE: CT of the head was performed without the administration of intravenous contrast. Automated exposure control, iterative reconstruction, and/or weight based adjustment of the mA/kV was utilized to reduce the radiation dose to as low as reasonably achievable. COMPARISON: 01/10/2023 CT head HISTORY: ORDERING SYSTEM PROVIDED HISTORY: repeat head ct after fall this am, confusion TECHNOLOGIST PROVIDED HISTORY: repeat head ct after fall this am, confusion Decision Support Exception - unselect if not a suspected or confirmed emergency medical condition->Emergency Medical Condition (MA) FINDINGS: BRAIN/VENTRICLES: There is no acute intracranial hemorrhage, mass effect or midline shift. No abnormal extra-axial fluid collection. The mckoy-white differentiation is maintained without evidence of an acute infarct. There is no evidence of hydrocephalus. There are nonspecific areas of hypoattenuation within the periventricular and subcortical white matter, which likely represent chronic microvascular ischemic change. There is prominence of the ventricles and sulci due to global parenchymal volume loss. ORBITS: The visualized portion of the orbits demonstrate no acute abnormality. SINUSES: The visualized paranasal sinuses and mastoid air cells demonstrate no acute abnormality. SOFT TISSUES/SKULL: No acute abnormality of the visualized skull or soft tissues. IMPRESSION: No acute intracranial abnormality. [facility] [employer] Work Phone: Radiology Study observation (narrative) [facility] [employer] Phone: CT HEAD WO CONTRAST EXAMINATION: CT OF THE HEAD WITHOUT CONTRAST 01/10/2023 12:29 pm TECHNIQUE: CT of the head was performed without the administration of intravenous contrast. Automated exposure control, iterative reconstruction, and/or weight based adjustment of the mA/kV was utilized to reduce the radiation dose to as low as reasonably achievable. COMPARISON: 11/18/2022 HISTORY: ORDERING SYSTEM PROVIDED HISTORY: fall TECHNOLOGIST PROVIDED HISTORY: fall Decision Support Exception - unselect if not a suspected or confirmed emergency medical condition->Emergency Medical Condition (MA) FINDINGS: BRAIN/VENTRICLES: There is no acute intracranial hemorrhage, mass effect or midline shift. No abnormal extra-axial fluid collection. The mckoy-white differentiation is maintained without evidence of an acute infarct. There is no evidence of hydrocephalus. Mild chronic microangiopathy. Mild, diffuse parenchymal volume loss. ORBITS: The visualized portion of the orbits demonstrate no acute abnormality. SINUSES: Mastoid air cells demonstrate no acute abnormality. Minimal mucosal thickening of the left sphenoid sinus. SOFT TISSUES/SKULL: No acute abnormality of the visualized skull or soft tissues. IMPRESSION: No acute transcortical infarct or intracranial hemorrhage. Interpreted by: Emil Green MD Signed by: Emil Green MD 01/10/23 Final result Normal [facility] CT HEAD WO CONTRASTOrdered B y: Maryam Philip on 01-10-2023 [facility] Work Phone: CT LUMBAR SPINE TRAUMA RECON STRUCTIONon 01-10-2023 CT LUMBAR SPINE TRAUMA RECONSTRUCTION EXAMINATION: CT OF THE LUMBAR SPINE WITHOUT CONTRAST 01/10/2023 TECHNIQUE: CT of the lumbar spine was performed without the administration of intravenous contrast. Multiplanar reformatted images are provided for review. Adjustment of mA and/or kV according to patient size was utilized. Automated exposure control, iterative reconstruction, and/or weight based adjustment of the mA/kV was utilized to reduce the radiation dose to as low as reasonably achievable. COMPARISON: Lumbar spine MRI performed 10/04/2022. HISTORY: ORDERING SYSTEM PROVIDED HISTORY: fall, c spine injury TECHNOLOGIST PROVIDED HISTORY: fall, c spine injury FINDINGS: BONES/ALIGNMENT: There is remote compression deformity at L3 status post kyphoplasty. The remaining vertebral body heights are maintained. The facet joints are aligned. There is no spondylolisthesis. DEGENERATIVE CHANGES: There is multilevel degenerative change. There is no canal stenosis. There is bilateral foraminal narrowing at L4-5 and L5-S1. SOFT TISSUES/RETROPERITON EUM: Posterior paraspinal soft tissues are unremarkable. There are infiltrates dependently in the lung bases. IMPRESSION: Remote compression deformity at L3 status post kyphoplasty. No acute vertebral body or disc space abnormality. Dependent infiltrates in the lung bases. Interpreted by: Alex Myers MD Signed by: Alex Myers MD 01/10/23 Final result Normal [facility] Remote compression deformity at L3 status post kyphoplasty. No acute vertebral body or disc space abnormality. Dependent infiltrates in the lung bases. [facility] CONSOLIDATED EXAMINATION: CT OF THE LUMBAR SPINE WITHOUT CONTRAST 01/10/2023 TECHNIQUE: CT of the lumbar spine was performed without the administration of intravenous contrast. [employer] reformatted images are provided for review. Adjustment of mA and/or kV according to patient size was utilized. Automated exposure control, iterative reconstruction, and/or weight based adjustment of the mA/kV was utilized to reduce the radiation dose to as low as reasonably achievable. COMPARISON: Lumbar spine MRI performed 10/04/2022. HISTORY: ORDERING SYSTEM PROVIDED HISTORY: fall, c spine injury TECHNOLOGIST PROVIDED HISTORY: fall, c spine injury FINDINGS: BONES/ALIGNMENT: There is remote compression deformity at L3 status post kyphoplasty. The remaining vertebral body heights are maintained. The facet joints are aligned. There is no spondylolisthesis. DEGENERATIVE CHANGES: There is multilevel degenerative change. There is no canal stenosis. There is bilateral foraminal narrowing at L4-5 and L5-S1. SOFT TISSUES/RETROPERITON EUM: Posterior paraspinal soft tissues are unremarkable. There are infiltrates dependently in the lung bases. [facility] Alex Myers MD - 01/10/2023 EXAMINATION: CT OF THE LUMBAR SPINE WITHOUT CONTRAST 01/10/2023 TECHNIQUE: CT of the lumbar spine was performed without the administration of intravenous contrast. Multiplanar reformatted images are provided for review. Adjustment of mA and/or kV according to patient size was utilized. Automated exposure control, iterative reconstruction, and/or weight based adjustment of the mA/kV was utilized to reduce the radiation dose to as low as reasonably achievable. COMPARISON: Lumbar spine MRI performed 10/04/2022. HISTORY: ORDERING SYSTEM PROVIDED HISTORY: fall, c spine injury TECHNOLOGIST PROVIDED HISTORY: fall, c spine injury FINDINGS: BONES/ALIGNMENT: There is remote compression deformity at L3 status post kyphoplasty. The remaining vertebral body heights are maintained. The facet joints are aligned. There is no spondylolisthesis. DEGENERATIVE CHANGES: There is multilevel degenerative change. There is no canal stenosis. There is bilateral foraminal narrowing at L4-5 and L5-S1. SOFT TISSUES/RETROPERITON EUM: Posterior paraspinal soft tissues are unremarkable. There are infiltrates dependently in the lung bases. IMPRESSION: Remote compression deformity at L3 status post kyphoplasty. No acute vertebral body or disc space abnormality. Dependent infiltrates in the lung bases. [employer] Phone: Radiology Study observation (narrative) [employer] Phone: CT LUMBAR SPINE TRAUMA RECON STRUCTIONOrdered By: Alex Myers on 01-10-2023 [employer] Phone: CT THORACIC SPINE TRAUMA REC ONSTRUCTIONon 01-10-2023 CT THORACIC SPINE TRAUMA RECONSTRUCTION EXAMINATION: CT OF THE THORACIC SPINE WITHOUT CONTRAST 01/10/2023 6:55 pm: TECHNIQUE: CT of the thoracic spine was performed without the administration of intravenous contrast. Multiplanar reformatted images are provided for review. Automated exposure control, iterative reconstruction, and/or weight based adjustment of the mA/kV was utilized to reduce the radiation dose to as low as reasonably achievable. COMPARISON: None. HISTORY: ORDERING SYSTEM PROVIDED HISTORY: fall, c spine injury TECHNOLOGIST PROVIDED HISTORY: fall, c spine injury FINDINGS: BONES/ALIGNMENT: There is a normal thoracic kyphosis. Vertebral body heights are maintained. The facet joints are aligned. There is no acute fracture or malalignment. There is no spondylolisthesis. DEGENERATIVE CHANGES: No gross spinal canal stenosis or bony neural foraminal narrowing of the thoracic spine. SOFT TISSUES: The posterior paraspinal soft tissues are unremarkable. There are bibasilar infiltrates. IMPRESSION: No acute fracture or malalignment of the thoracic spine. Dependent infiltrates that may represent atelectasis. Interpreted by: Alex Myers MD Signed by: Alex Myers MD 01/10/23 Final result Normal [facility] No acute fracture or malalignment of the thoracic spine. Dependent infiltrates that may represent atelectasis. [facility] CONSOL[facility] EXAMINATION: CT OF THE THORACIC SPINE WITHOUT CONTRAST 01/10/2023 6:55 pm: TECHNIQUE: CT of the thoracic spine was performed without the administration of intravenous contrast. Multiplanar reformatted images are provided for review. Automated exposure control, iterative reconstruction, and/or weight based adjustment of the mA/kV was utilized to reduce the radiation dose to as low as reasonably achievable. COMPARISON: None. HISTORY: ORDERING SYSTEM PROVIDED HISTORY: fall, c spine injury TECHNOLOGIST PROVIDED HISTORY: fall, c spine injury FINDINGS: BONES/ALIGNMENT: There is a normal thoracic kyphosis. Vertebral body heights are maintained. The facet joints are aligned. There is no acute fracture or malalignment. There is no spondylolisthesis. DEGENERATIVE CHANGES: No gross spinal canal stenosis or bony neural foraminal narrowing of the thoracic spine. SOFT TISSUES: The posterior paraspinal soft tissues are unremarkable. There are bibasilar infiltrates. [facility] Alex Myers MD - 01/10/2023 EXAMINATION: CT OF THE THORACIC SPINE WITHOUT CONTRAST 01/10/2023 6:55 pm: TECHNIQUE: CT of the thoracic spine was performed without the administration of intravenous contrast. Multiplanar reformatted images are provided for review. Automated exposure control, iterative reconstruction, and/or weight based adjustment of the mA/kV was utilized to reduce the radiation dose to as low as reasonably achievable. COMPARISON: None. HISTORY: ORDERING SYSTEM PROVIDED HISTORY: fall, c spine injury TECHNOLOGIST PROVIDED HISTORY: fall, c spine injury FINDINGS: BONES/ALIGNMENT: There is a normal thoracic kyphosis. Vertebral body heights are maintained. The facet joints are aligned. There is no acute fracture or malalignment. There is no spondylolisthesis. DEGENERATIVE CHANGES: No gross spinal canal stenosis or bony neural foraminal narrowing of the thoracic spine. SOFT TISSUES: The posterior paraspinal soft tissues are unremarkable. There are bibasilar infiltrates. IMPRESSION: No acute fracture or malalignment of the thoracic spine. Dependent infiltrates that may represent atelectasis. [employer] Phone: [facility] [employer] Phone: Radiology Study observation (narrative) [facility] [employer] Phone: Creatinine W/GFR Point of Ca reon 01-10-2023 Creatinine [Mass/Vol] 1.38 mg/dL High 0.51 - 1.19 mg/dL [facility] eGFR, POC 42 mL/min/1.73 m2 [facility] Comment on above: These results are not intended for use in patients <18 years of age. eGFR results are calculated without a race factor using the 2020 CKD-EPI equation. Careful clinical correlation is recommended, particularly when comparing to results calculated using previous equations. The CKD-EPI equation is less accurate in patients with extremes of muscle mass, extra-renal metabolism of creatine, excessive creatine ingestion, or following therapy that affects renal tubular secretion. ELECTROLYTES PLUSon 01-11-20 23 Anion gap [Moles/Vol] 6 mmol/L Low 7 - 16 mmol/L [facility] Chloride [Moles/Vol] 97 mmol/L Low 98 - 10 7 mmol/L [facility] CO2 [Moles/Vol] 34 mmol/L High 22 - 30 mmol/L [facility] Potassium [Moles/Vol] 4.4 mmol/L 3.5 - 4.5 mmol/L [facility] Sodium [Moles/Vol] 136 mmol/L Low 138 - 146 mmol/L [facility] Hemoglobin and hematocrit, b loodon 01-10-2023 Hematocrit (Bld) [Volume fraction] 34 % Low 36 - 46 % [facility] Hemoglobin (Bld) [Mass/Vol] 11.5 g/dL Low 12.0 - 16.0 g/dL [facility] Lactic Acid, POCon 3 POC Lactic Acid 0.70 mmol/L 0.56 - 1.39 mmol/L [facility] MRI CERVICAL SPINE WO CONTRA STon 01-10-2023 MRI CERVICAL SPINE WO CONTRAST EXAMINATION: MRI OF THE CERVICAL SPINE WITHOUT CONTRAST 01/10/2023 7:37 pm TECHNIQUE: Multiplanar multisequence MRI of the cervical spine was performed without the administration of intravenous contrast. COMPARISON: None. HISTORY: ORDERING SYSTEM PROVIDED HISTORY: atlantoaxial subluxation TECHNOLOGIST PROVIDED HISTORY: atlantoaxial subluxation Decision Support Exception - unselect if not a suspected or confirmed emergency medical condition->Emergency Medical Condition (MA) Reason for Exam: S/P Fall - atlantoaxial subluxation. FINDINGS: BONES/ALIGNMENT: There is anterior fixation at C5-C7 without complication. The vertebral body heights are maintained. The C1 and C2 lateral masses are aligned. There is age-appropriate bone marrow signal. There is multilevel degenerative disc disease at the remaining levels with loss of disc signal. There is no spondylolisthesis. SPINAL CORD: No abnormal cord signal is seen. SOFT TISSUES: No paraspinal mass identified. C2-C3: There is a disc osteophyte complex with uncovertebral hypertrophy. There is no canal stenosis or foraminal narrowing. C3-C4: There is a disc osteophyte complex with uncovertebral and facet hypertrophy. There is canal stenosis measuring 8 mm in AP dimension. There is severe bilateral foraminal narrowing. C4-C5: There is a disc osteophyte complex with uncovertebral and facet hypertrophy. There is no canal stenosis. There is moderate right and severe left foraminal narrowing. C5-C6: There is uncovertebral and facet hypertrophy. There is no canal stenosis. There is moderate foraminal narrowing. C6-C7: There is uncovertebral and facet hypertrophy. There is no canal stenosis. There is moderate right and severe left foraminal narrowing. C7-T1: There is a disc osteophyte complex with uncovertebral and facet hypertrophy. There is no canal stenosis or foraminal narrowing. IMPRESSION: No evidence for acute abnormality. The lateral masses at C1 and C2 are aligned. Multilevel degenerative change with canal stenosis at C3-4. Foraminal narrowing as described above. Interpreted by: Alex Myers MD Signed by: Alex Myers MD 01/10/23 Final result Normal [facility] No evidence for acute abnormality. The lateral masses at C1 and C2 are aligned. Multilevel degenerative change with canal stenosis at C3-4. Foraminal narrowing as described above. [facility] EXAMINATION: MRI OF THE CERVICAL SPINE WITHOUT CONTRAST 01/10/2023 7:37 pm TECHNIQUE: Multiplanar multisequence MRI of the cervical spine was performed without the administration of intravenous contrast. COMPARISON: None. HISTORY: ORDERING SYSTEM PROVIDED HISTORY: atlantoaxial subluxation TECHNOLOGIST PROVIDED HISTORY: atlantoaxial subluxation Decision Support Exception - unselect if not a suspected or confirmed emergency medical condition->Emergency Medical Condition (MA) Reason for Exam: S/P Fall - atlantoaxial subluxation. FINDINGS: BONES/ALIGNMENT: There is anterior fixation at C5-C7 without complication. The vertebral body heights are maintained. The C1 and C2 lateral masses are aligned. There is age-appropriate bone marrow signal. There is multilevel degenerative disc disease at the remaining levels with loss of disc signal. There is no spondylolisthesis. SPINAL CORD: No abnormal cord signal is seen. SOFT TISSUES: No paraspinal mass identified. C2-C3: There is a disc osteophyte complex with uncovertebral hypertrophy. There is no canal stenosis or foraminal narrowing. C3-C4: There is a disc osteophyte complex with uncovertebral and facet hypertrophy. There is canal stenosis measuring 8 mm in AP dimension. There is severe bilateral foraminal narrowing. C4-C5: There is a disc osteophyte complex with uncovertebral and facet hypertrophy. There is no canal stenosis. There is moderate right and severe left foraminal narrowing. C5-C6: There is uncovertebral and facet hypertrophy. There is no canal stenosis. There is moderate foraminal narrowing. C6-C7: There is uncovertebral and facet hypertrophy. There is no canal stenosis. There is moderate right and severe left foraminal narrowing. C7-T1: There is a disc osteophyte complex with uncovertebral and facet hypertrophy. There is no canal stenosis or foraminal narrowing. [facility] Alex Lockett MD - 01/10/2023 EXAMINATION: MRI OF THE CERVICAL SPINE WITHOUT CONTRAST 01/10/2023 7:37 pm TECHNIQUE: Multiplanar multisequence MRI of the cervical spine was performed without the administration of intravenous contrast. COMPARISON: None. HISTORY: ORDERING SYSTEM PROVIDED HISTORY: atlantoaxial subluxation TECHNOLOGIST PROVIDED HISTORY: atlantoaxial subluxation Decision Support Exception - unselect if not a suspected or confirmed emergency medical condition->Emergency Medical Condition (MA) Reason for Exam: S/P Fall - atlantoaxial subluxation. FINDINGS: BONES/ALIGNMENT: There is anterior fixation at C5-C7 without complication. The vertebral body heights are maintained. The C1 and C2 lateral masses are aligned. There is age-appropriate bone marrow signal. There is multilevel degenerative disc disease at the remaining levels with loss of disc signal. There is no spondylolisthesis. SPINAL CORD: No abnormal cord signal is seen. SOFT TISSUES: No paraspinal mass identified. C2-C3: There is a disc osteophyte complex with uncovertebral hypertrophy. There is no canal stenosis or foraminal narrowing. C3-C4: There is a disc osteophyte complex with uncovertebral and facet hypertrophy. There is canal stenosis measuring 8 mm in AP dimension. There is severe bilateral foraminal narrowing. C4-C5: There is a disc osteophyte complex with uncovertebral and facet hypertrophy. There is no canal stenosis. There is moderate right and severe left foraminal narrowing. C5-C6: There is uncovertebral and facet hypertrophy. There is no canal stenosis. There is moderate foraminal narrowing. C6-C7: There is uncovertebral and facet hypertrophy. There is no canal stenosis. There is moderate right and severe left foraminal narrowing. C7-T1: There is a disc osteophyte complex with uncovertebral and facet hypertrophy. There is no canal stenosis or foraminal narrowing. IMPRESSION: No evidence for acute abnormality. The lateral masses at C1 and C2 are aligned. Multilevel degenerative change with canal stenosis at C3-4. Foraminal narrowing as described above. [facility] [employer] Work Phone: [facility] Work Phone: Radiology Study observation (narrative) [facility] [email or web address] Phone: No Panel Informationon 01-10 Interpretation and review of laboratory results Abnormal [facility] Radiology Study observation (narrative) [facility] [employer] Phone: PLT, Immature Fract.on 01-10 Platelet, Fluoresc. 107 k/uL Low 138-453 [facility] Comment on above: Performed By: #### L IVP, TROPI #### [facility] [address] [place] [address] Patient Intake Representative: Adonis Aleman MD PLT, Immature Fract. 2.5 % Normal 1.1-10.3 [facility] Comment on above: Performed By: #### L IVP, TROPI #### [facility] [address] [place] [id number] Patient Intake Representative: Adonis Aleman MD POC Glucose Fingerstickon Glucose [Mass/Vol] 182 mg/dL High 65 - 105 mg/dL [facility] Interpretation and review of laboratory results Abnormal [facility] POCT GlucoseOrdered By: Byron Champion on 01-10-2023 Glucose [Mass/Vol] 182 mg/dL [facility] Interpretation and review of laboratory results Normal [facility] QC OK? yes [facility] POCT Glucoseon 01-10-2023 Glucose [Mass/Vol] 230 mg/dL High 74 - 100 mg/dL [facility] POCT urea (BUN)on 01-10-2023 Urea nitrogen [Mass/Vol] 18 mg/dL 8 - 26 mg/dL [facility] UA w/Reflex Cultureon 2022 Bilirubin, SemiQt,Ur Negative Normal NEG [facility] Comment on above: Performed By: #### C P, MG #### [facility] [address] [place] [address] Patient Intake Representative: Adonis Aleman MD Blood, Urine Negative Normal NEG [facility] Comment on above: Performed By: #### C P, MG #### [facility] [address] [place] [address] [place] [address] Patient Intake Representative: Adonis Aleman MD Clarity (U) Clear Normal CLEAR [facility] Comment on above: Performed By: #### C P, MG #### [facility] [address] [place] [address] Patient Intake Representative: Adonis Aleman MD Color (U) Yellow Normal YEL [facility] Comment on above: Performed By: #### C P, MG #### [facility] [address] [place] [address] Patient Intake Representative: Adonis Aleman MD Glucose Ql (U) 2+ Abnormal NEG [facility] Comment on above: Performed By: #### C P, MG #### [facility] [address] [place] [address] [place], [place] [id number] Patient Intake Representative: Adonis Aleman MD Ketones Ql (U) Negative Normal NEG [facility] Comment on above: Performed By: #### C P, MG #### [facility] [address] [place] [address] Dr. [place], [facility] Patient Intake Representative: Adonis Aleman MD Leukocyte esterase Test strip Ql (U) SMALL Abnormal NEG [facility] Comment on above: Performed By: #### C P, MG #### [facility] [address] [place] [address] [place] [id number] Patient Intake Representative: Adonis Aleman MD Nitrite,Ur Positive Abnormal NEG [facility] Comment on above: Performed By: #### C P, MG #### [facility] [address] [place] [address] Dr. [place], [facility]83 Patient Intake Representative: Adonis Aleman MD PH,Ur 6.5 Normal 5.0-9.0 [facility] Comment on above: Performed By: #### C P, MG #### [address] [place] [id number] Patient Intake Representative: Adonis Aleman MD Protein Ql (U) Negative Normal NEG [facility] Comment on above: Performed By: #### C P, MG #### [facility] [address] [place] [address] Dr. [place], [facility]83 Patient Intake Representative: Adonis Aleman MD Spec. Clay,Ur 1.010 Normal 1.010-1.020 [facility] Comment on above: Performed By: #### C P, MG #### [facility] [address] [place] [address] [place] [address] Patient Intake Representative: Adonis Aleman MD Urobilinogen,Ur Normal Normal NORM [facility] Comment on above: Performed By: #### C P, MG #### [facility] [address] [place] [address] Patient Intake Representative: Adonis Aleman MD Urinalysis w/ Microon 2022 Bacteria MODERATE Abnormal NONE [facility] Comment on above: Performed By: #### U AMIC #### [address] [address] Patient Intake Representative: Jarred Garcia MD Casts 0 TO 2 Normal 0-2 [facility] Comment on above: Result Comment: HYAL INE Performed By: #### U AMIC #### [address] [address] Patient Intake Representative: Jarred Garcia MD Epithelial cells LM Ql (Urine sed) 0 TO 2 Normal 0-5 [facility] Comment on above: Performed By: #### U AMIC #### [address] [address] Patient Intake Representative: Jarred Garcia MD Urine RBC's 5 TO 10 Normal 0-2 [facility] Comment on above: Performed By: #### U AMIC #### [address] [address] Patient Intake Representative: aJrred Garcia MD Urine WBC's 50 TO 100 Normal 0-5 [facility] Comment on above: Performed By: #### U AMIC #### [address] [address] Patient Intake Representative: Jarred Garcia MD Bilirubin, SemiQt,Ur Negative Normal NEG [facility] Comment on above: Performed By: #### U AMIC #### [address] [address] Patient Intake Representative: Jarred Garcia MD Blood, Urine TRACE Abnormal NEG [facility] Comment on above: Performed By: #### U AMIC #### [address] [address] Patient Intake Representative: Jarred Garcia MD Clarity (U) Clear Normal CLEAR [facility] Comment on above: Performed By: #### U AMIC #### [address] [address] Patient Intake Representative: Jarred Garcia MD Color (U) Yellow Normal YEL [facility] Comment on above: Performed By: #### U AMIC #### [address] [address] Patient Intake Representative: Jarred Garcia MD Glucose Ql (U) TRACE Abnormal NEG [facility] Comment on above: Performed By: #### U AMIC #### [address] [address] Patient Intake Representative: Jarred Garcia MD Ketones Ql (U) Negative Normal NEG [facility] Comment on above: Performed By: #### U AMIC #### [address] [address] Patient Intake Representative: Jarred Garcia MD Leukocyte esterase Test strip Ql (U) MODERATE Abnormal NEG [facility] Comment on above: Performed By: #### U AMIC #### [address] [address] Patient Intake Representative: Jarred Garcia MD Nitrite,Ur Positive Abnormal NEG [facility] Comment on above: Performed By: #### U AMIC #### [address] [address] Patient Intake Representative: Jarred Garcia MD PH,Ur 6.5 Normal 5.0-8.0 [facility] Comment on above: Performed By: #### U AMIC #### [address] [address] Patient Intake Representative: Jarred Garcia MD Protein Ql (U) Negative Normal NEG [facility] Comment on above: Performed By: #### U AMIC #### [facility] [address] [place] [address] Patient Intake Representative: Jarred Garcia MD Spec. Clay,Ur 1.013 Normal 1.005-1.030 [facility] Comment on above: Performed By: #### U AMIC #### [facility] [address] [place], [place] [id number] Patient Intake Representative: Jarred Garcia MD Urobilinogen,Ur Normal Normal NORM [facility] Comment on above: Performed By: #### U AMIC #### [facility] [address] [place], [place] [phone] Patient Intake Representative: Jarred Garcia MD Urinalysis with Microscopico n 01-10-2023 Bacteria LM Ql (Urine sed) MODERATE Abnormal None [facility] Bilirubin Ql (U) Negative NEGATIVE [facility] Casts LM.LPF (Urine sed) [#/Area] 0 TO 2 [facility] Casts LM.LPF (Urine sed) [#/Area] HYALINE [facility] Clarity (U) Clear Clear [facility] Color (U) Yellow Yellow [facility] Epithelial cells LM.HPF (Urine sed) [#/Area] 0 TO 2 [facility] Glucose Test strip (U) [Mass/Vol] TRACE Abnormal NEGATIVE [facility] Hemoglobin Auto test strip Ql (U) TRACE Abnormal NEGATIVE [facility] Interpretation and review of laboratory results Abnormal [facility] Ketones (U) [Mass/Vol] Negative NEGATIVE [facility] Leukocyte esterase Test strip Ql (U) MODERATE Abnormal NEGATIVE [facility] Nitrite Ql (U) Positive Abnormal NEGATIVE [facility] pH (U) 6.5 [pH] 5.0 - 8.0 [facility] Protein (U) [Mass/Vol] Negative NEGATIVE [facility] RBC LM.HPF (Urine sed) [#/Area] 5 TO 10 [facility] Specific gravity (U) [Rel density] 1.013 1.005 - 1.030 [facility] Urobilinogen Qn (U) Normal Normal [facility] WBC LM.HPF (Urine sed) [#/Area] 50 TO 100 [facility] Urinalysis,Microon 3 Bacteria 4+ Abnormal NONE [facility] Comment on above: Performed By: #### C P, MG #### [facility] [address] [place], [place] [id number] Patient Intake Representative: Adonis Aleman MD Epithelial cells LM Ql (Urine sed) 0 TO 2 Normal 0-25 [facility] Comment on above: Performed By: #### C P, MG #### [facility] [address] [place], [place] [id number] Patient Intake Representative: Adonis Aleman MD Urine RBC's None Normal 0-2 [facility] Comment on above: Performed By: #### C P, MG #### [facility] [address] [place] [address] Patient Intake Representative: Adonis Aleman MD Urine WBC's 5 TO 10 Normal 0-5 [facility] Comment on above: Performed By: #### C P, MG #### [facility] [address] [place] [address] Patient Intake Representative: Adonis Aleman MD Venous Blood Gas, POCon 12-16 HCO3 (Bld) [Moles/Vol] 34.5 mmol/L High 22.0 - 29.0 mmol/L [facility] Oxygen saturation in Blood 55 % Low 60.0 - 85.0 % [facility] pCO2, Adrian 60.7 High [facility] pH, Adrian 7.363 7.320 - 7.430 [facility] pO2, Adrian 31.0 [facility] Positive Base Excess, Adrian 7 High 0.0 - 3.0 [facility] XR ANKLE LEFT (MIN 3 VIEWS)o n 01-10-2023 XR ANKLE LEFT (MIN 3 VIEWS) EXAMINATION: THREE XRAY VIEWS OF THE LEFT ANKLE 01/10/2023 7:03 pm COMPARISON: None. HISTORY: ORDERING SYSTEM PROVIDED HISTORY: fall TECHNOLOGIST PROVIDED HISTORY: fall Reason for Exam: fall, bilat ankle pain, left knee pain FINDINGS: There is no acute osseous abnormality. The joint spaces are maintained. There is mild soft tissue swelling. IMPRESSION: Mild soft tissue swelling without acute osseous abnormality. Interpreted by: Alex Myers MD Signed by: Alex Myers MD 01/10/23 Final result Normal [facility] Mild soft tissue swelling without acute osseous abnormality. [facility] CONSOLIDATED EXAMINATION: THREE XRAY VIEWS OF THE LEFT ANKLE 01/10/2023 7:03 pm COMPARISON: None. HISTORY: ORDERING SYSTEM PROVIDED HISTORY: fall TECHNOLOGIST PROVIDED HISTORY: fall Reason for Exam: fall, bilat ankle pain, left knee pain FINDINGS: There is no acute osseous abnormality. The joint spaces are maintained. There is mild soft tissue swelling. [facility] CONSOLIDATED Alex Myers MD - 01/10/2023 EXAMINATION: THREE XRAY VIEWS OF THE LEFT ANKLE 01/10/2023 7:03 pm COMPARISON: None. HISTORY: ORDERING SYSTEM PROVIDED HISTORY: fall TECHNOLOGIST PROVIDED HISTORY: fall Reason for Exam: fall, bilat ankle pain, left knee pain FINDINGS: There is no acute osseous abnormality. The joint spaces are maintained. There is mild soft tissue swelling. IMPRESSION: Mild soft tissue swelling without acute osseous abnormality. [facility]ITAL[facility] Work Phone: [facility] [employer] Work Phone: XR ANKLE RIGHT (MIN 3 VIEWS) on 01-10-2023 XR ANKLE RIGHT (MIN 3 VIEWS) EXAMINATION: THREE XRAY VIEWS OF THE RIGHT ANKLE 01/10/2023 7:03 pm COMPARISON: None. HISTORY: ORDERING SYSTEM PROVIDED HISTORY: fall TECHNOLOGIST PROVIDED HISTORY: fall Reason for Exam: fall, bilat ankle pain, left knee pain FINDINGS: There is no acute osseous abnormality. The joint spaces are maintained. There is diffuse soft tissue swelling. IMPRESSION: Diffuse soft tissue swelling without definite acute osseous abnormality. Interpreted by: Alex Myers MD Signed by: Alex Myers MD 01/10/23 Final result Normal [facility] Diffuse soft tissue swelling without definite acute osseous abnormality. [facility] CONSOLIDATED EXAMINATION: THREE XRAY VIEWS OF THE RIGHT ANKLE 01/10/2023 7:03 pm COMPARISON: None. HISTORY: ORDERING SYSTEM PROVIDED HISTORY: fall TECHNOLOGIST PROVIDED HISTORY: fall Reason for Exam: fall, bilat ankle pain, left knee pain FINDINGS: There is no acute osseous abnormality. The joint spaces are maintained. There is diffuse soft tissue swelling. [facility] CONSOLIDATED Alex Myers MD - 01/10/2023 EXAMINATION: THREE XRAY VIEWS OF THE RIGHT ANKLE 01/10/2023 7:03 pm COMPARISON: None. HISTORY: ORDERING SYSTEM PROVIDED HISTORY: fall TECHNOLOGIST PROVIDED HISTORY: fall Reason for Exam: fall, bilat ankle pain, left knee pain FINDINGS: There is no acute osseous abnormality. The joint spaces are maintained. There is diffuse soft tissue swelling. IMPRESSION: Diffuse soft tissue swelling without definite acute osseous abnormality. [employer] [facility] Work Phone: [employer] [facility] Work Phone: XR FOOT RIGHT (MIN 3 VIEWS)o n 01-10-2023 XR FOOT RIGHT (MIN 3 VIEWS) EXAMINATION: THREE XRAY VIEWS OF THE RIGHT FOOT 01/10/2023 7:03 pm COMPARISON: None. HISTORY: ORDERING SYSTEM PROVIDED HISTORY: fall TECHNOLOGIST PROVIDED HISTORY: fall Reason for Exam: fall, bilat ankle pain, left knee pain FINDINGS: There is no acute osseous abnormality. There is degenerative joint disease most pronounced in the interphalangeal joint spaces. The surrounding soft tissues are unremarkable. IMPRESSION: No acute osseous or soft tissue abnormality. Diffuse degenerative joint disease. Interpreted by: Alex Myers MD Signed by: Alex Myers MD 01/10/23 Final result Normal [facility] No acute osseous or soft tissue abnormality. Diffuse degenerative joint disease. [facility] CONSOLIDATED EXAMINATION: THREE XRAY VIEWS OF THE RIGHT FOOT 01/10/2023 7:03 pm COMPARISON: None. HISTORY: ORDERING SYSTEM PROVIDED HISTORY: fall TECHNOLOGIST PROVIDED HISTORY: fall Reason for Exam: fall, bilat ankle pain, left knee pain FINDINGS: There is no acute osseous abnormality. There is degenerative joint disease most pronounced in the interphalangeal joint spaces. The surrounding soft tissues are unremarkable. [facility] CONSOLIDATED Alex Myers MD - 01/10/2023 EXAMINATION: THREE XRAY VIEWS OF THE RIGHT FOOT 01/10/2023 7:03 pm COMPARISON: None. HISTORY: ORDERING SYSTEM PROVIDED HISTORY: fall TECHNOLOGIST PROVIDED HISTORY: fall Reason for Exam: fall, bilat ankle pain, left knee pain FINDINGS: There is no acute osseous abnormality. There is degenerative joint disease most pronounced in the interphalangeal joint spaces. The surrounding soft tissues are unremarkable. IMPRESSION: No acute osseous or soft tissue abnormality. Diffuse degenerative joint disease. [facility] [employer] Work Phone: [facility] [employer] [facility] Work Phone: XR KNEE LEFT (3 VIEWS)on XR KNEE LEFT (3 VIEWS) EXAMINATION: THREE XRAY VIEWS OF THE LEFT KNEE 01/10/2023 7:03 pm COMPARISON: None. HISTORY: ORDERING SYSTEM PROVIDED HISTORY: fall TECHNOLOGIST PROVIDED HISTORY: fall Reason for Exam: fall, bilat ankle pain, left knee pain FINDINGS: There is no acute osseous abnormality. The joint spaces are maintained. There is no joint effusion. The surrounding soft tissues are unremarkable. IMPRESSION: No acute osseous or soft tissue abnormality. Interpreted by: Alex Myers MD Signed by: Alex Myers MD 01/10/23 Final result Normal [facility] No acute osseous or soft tissue abnormality. [facility] CONSOLIDATED EXAMINATION: THREE XRAY VIEWS OF THE LEFT KNEE 01/10/2023 7:03 pm COMPARISON: None. HISTORY: ORDERING SYSTEM PROVIDED HISTORY: fall TECHNOLOGIST PROVIDED HISTORY: fall Reason for Exam: fall, bilat ankle pain, left knee pain FINDINGS: There is no acute osseous abnormality. The joint spaces are maintained. There is no joint effusion. The surrounding soft tissues are unremarkable. [facility] CONSOLIDATED Alex Myers MD - 01/10/2023 EXAMINATION: THREE XRAY VIEWS OF THE LEFT KNEE 01/10/2023 7:03 pm COMPARISON: None. HISTORY: ORDERING SYSTEM PROVIDED HISTORY: fall TECHNOLOGIST PROVIDED HISTORY: fall Reason for Exam: fall, bilat ankle pain, left knee pain FINDINGS: There is no acute osseous abnormality. The joint spaces are maintained. There is no joint effusion. The surrounding soft tissues are unremarkable. IMPRESSION: No acute osseous or soft tissue abnormality. [facility] Work Phone: [facility] Work Phone: Basic Metabolic Profon 01-09 Anion gap [Moles/Vol] 4 mmol/L Low 9-17 [facility] Comment on above: Performed By: #### C P, MG #### [facility] [address] [place] [address] Patient Intake Representative: Adonis Aleman MD BUN/CRE Ratio 16 Normal 9-20 [facility] Comment on above: Performed By: #### C P, MG #### [facility] [address] [place] [address] Patient Intake Representative: Adonis Aleman MD Calcium [Mass/Vol] 9.3 mg/dL Normal 8.6-10.4 [facility] Comment on above: Performed By: #### C P, MG #### [facility] [address] [place] [address] Patient Intake Representative: Adonis Aleman MD Chloride [Moles/Vol] 95 mmol/L Low 98-107 [facility] Comment on above: Performed By: #### C P, MG #### [facility] [address] [place] [address] Patient Intake Representative: Adonis Aleman MD CO2 [Moles/Vol] 33 mmol/L High 20-31 [facility] Comment on above: Performed By: #### C P, MG #### [facility] [address] [place] [address] Patient Intake Representative: Adonis Aleman MD Creatinine [Mass/Vol] 1.48 mg/dL High 0.50-0.90 [facility] Comment on above: Performed By: #### C P, MG #### [facility] [address] [place] [address] Patient Intake Representative: Adonis Aleman MD GFR/1.73 sq M.predicted among non-blacks MDRD (S/P/Bld) [Vol rate/Area] 38 mL/min/{1.73_m2} Low >60 [facility] Comment on above: Result Comment: These results are not intended for use in patients <18 years of age. eGFR results are calculated without a race factor using the 2020 CKD-EPI equation. Careful clinical correlation is recommended, particularly when comparing to results calculated using previous equations. The CKD-EPI equation is less accurate in patients with extremes of muscle mass, extra-renal metabolism of creatine, excessive creatine ingestion, or following therapy that affects renal tubular secretion. Performed By: #### C P, MG #### [facility] [address] [place] [address] [place] [address] Patient Intake Representative: Adonis Aleman MD Glucose [Mass/Vol] 318 mg/dL High 70-99 [facility] Comment on above: Performed By: #### C P, MG #### [address] [place] [address] Patient Intake Representative: Adonis Aleman MD Potassium [Moles/Vol] 5.0 mmol/L Normal 3.7-5.3 [facility] Comment on above: Performed By: #### C P, MG #### [facility] [address] [place] [address] Patient Intake Representative: Adonis Aleman MD Sodium [Moles/Vol] 132 mmol/L Low 135-144 [facility] Comment on above: Performed By: #### C P, MG #### [facility] [address] [place] [address] Patient Intake Representative: Adonis Aleman MD Urea nitrogen [Mass/Vol] 23 mg/dL Normal 8-23 [facility] Comment on above: Performed By: #### C P, MG #### [facility] [address] [place] [address] Patient Intake Representative: Adonis Aleman MD Magnesiumon 01-09-2023 Magnesium [Mass/Vol] 1.9 mg/dL Normal 1.6-2.6 [facility] Comment on above: Performed By: #### C P, MG #### [facility] [address] [place] [address] Patient Intake Representative: Adonis Aleman MD Cult, Bloodon 01-03-2023 Cult, Blood Specimen Description .BLOOD Special Requests RT ARM 20 ML Culture NO GROWTH 5 DAYS Report Status FINAL 01/03/2023 Normal [facility] Comment on above: Performed By: #### B CUL2 #### [address] [id number] Patient Intake Representative: Jarred Garcia MD Cult,[facility] 01-03-2023 Cult,Blood Specimen Description .BLOOD Special Requests LEFT ARM 13 ML Culture NO GROWTH 5 DAYS Report Status FINAL 01/03/2023 Normal [facility] Comment on above: Performed By: #### B C #### [address] [address] Patient Intake Representative: Jarred Garcia MD C-Reactive Proteinon 023 CRP [Mass/Vol] 10.4 mg/L High 0.0-5.0 [facility] Comment on above: Performed By: #### C RP, SED #### [facility] [employer] [address] [place] [id number] Patient Intake Representative: Jarred Garcia MD CRP High sensitivity method [Mass/Vol] 10.4 mg/L High 0.0 - 5.0 mg/L [facility] Interpretation and review of laboratory results Abnormal [facility] Sedimentation Rateon 023 Sedimentation Rate 60 mm/Hr High 0-30 [facility] Comment on above: Performed By: #### U RC #### [facility] [employer] [address] [place] [address] Patient Intake Representative: Jarred Garcia MD ESR (Bld) [Velocity] 60 mm/h High [facility] Interpretation and review of laboratory results Abnormal [facility] XR LUMBAR SPINE (2-3 VIEWS)o n 12-29-2022 XR LUMBAR SPINE (2-3 VIEWS) EXAMINATION: XRAY VIEWS OF THE LUMBAR SPINE 12/29/2022 12:01 pm COMPARISON: October 07, 2022 HISTORY: ORDERING SYSTEM PROVIDED HISTORY: Chronic midline low back pain without sciatica TECHNOLOGIST PROVIDED HISTORY: eval prior kypho FINDINGS: Lumbar spine alignment is anatomic. No acute osseous abnormality. Stable kyphoplasty change L3. Remaining vertebral body axial heights maintained. [id number] degenerative change most significant L5-S1 with loss disc height endplate spondylosis. Moderate facet arthropathy lower lumbar spine. There is calcification of the abdominal aorta. IMPRESSION: No acute findings. Interpreted by: Aniceto Coronel DO Signed by: Aniceto Coronel DO 12/29/22 Final result Normal [facility] Microscopic Urinalysison Bacteria, UA 2+ Abnormal None [facility] Epithelial Cells UA 0 TO 2 [facility] Interpretation and review of laboratory results Abnormal [facility] RBC clumps Auto (Urine sed) [#/Area] 0 TO 2 [facility] Renal Epithelial, UA 0 TO 2 0 /HPF [facility] WBC, UA 50 TO 100 [facility] Urinalysison 12-19-2022 Bilirubin Urine Negative NEGATIVE [facility] Color, UA Yellow Yellow [facility] Glucose Auto test strip (U) [Mass/Vol] Negative NEGATIVE [facility] Interpretation and review of laboratory results Abnormal [facility] Ketones (U) [Mass/Vol] Negative NEGATIVE [facility] Leukocyte esterase Auto test strip Ql (U) MODERATE Abnormal NEGATIVE [facility] Nitrite Auto test strip Ql (U) Positive Abnormal NEGATIVE [facility] Protein (U) [Mass/Vol] 6.5 mg/dL 5.0 - 9.0 [facility] Protein (U) [Mass/Vol] Negative NEGATIVE [facility] Specific Clay, UA 1.010 1.010 - 1.020 [facility] Turbidity UA SLIGHTLY CLOUDY Abnormal Clear [facility] Urine Hgb TRACE Abnormal NEGATIVE [facility] Urobilinogen, Urine Normal Normal [facility] Magnesiumon 12-01-2022 Magnesium [Mass/Vol] 2.1 mg/dL 1.6 - 2 .6 mg/dL [facility] CBC with Auto Differentialon 11-29-2022 Absolute Eos # 0.06 [facility] Absolute Immature Granulocyte [facility] Absolute Lymph # 1.44 [facility] Absolute Sullivan # 0.31 [facility] RS [facility] Basophils Absolute [facility] Basophils/100 WBC (Bld) 1 % 0 - 2 % B ON [facility] Eosinophils/100 WBC (Bld) 1 % 1 - 4 % [facility] Hematocrit (Bld) [Volume fraction] 30.9 % Low 36.3 - 47.1 % [facility] Hemoglobin (Bld) [Mass/Vol] 9.6 g/dL Low 11.9 - 15.1 g/dL [facility] Immature granulocytes/100 WBC (Bld) 0 % 0 [facility] Interpretation and review of laboratory results Abnormal [facility] Lymphocytes/100 WBC (Bld) 33 % 24 - 43 % [facility] MCH (RBC) [Entitic mass] 29.4 pg 25. 2 - 33.5 pg [facility] MCHC (RBC) [Mass/Vol] 31.1 g/dL 28.4 - 34.8 g/dL [facility] MCV (RBC) [Entitic vol] 94.8 fL 82.6 - 102.9 fL [facility] Monocytes/100 WBC (Bld) 7 % 3 - 12 % B ON [facility] NRBC Automated 0.0 0.0 per 100 WBC [facility] Platelet distribution width (Bld) [Ratio] 18.9 % High 11.8 - 14.4 % [facility] Platelet mean volume (Bld) [Entitic vol] 9.6 fL 8.1 - 13.5 fL [facility] Platelets (Bld) [#/Vol] 120 10*3/uL Low [facility] RBC (Bld) [#/Vol] 3.26 10*6/uL Low 3.95 - 5.1 1 m/uL [facility] Segmented neutrophils/100 WBC (Bld) 58 % 36 - 65 % [facility] Segs Absolute 2.57 [facility] WBC (Bld) [#/Vol] 4.4 10*3/uL [facility] Comprehensive Metabolic Pane roger 11-29-2022 Albumin [Mass/Vol] 3.4 g/dL Low 3.5 - 5.2 g/dL [facility] Albumin/Globulin [Mass ratio] 0.9 {ratio} Low 1.0 - 2.5 [facility] ALP [Catalytic activity/Vol] 266 U/L High 35 - 104 U/L [facility] ALT [Catalytic activity/Vol] 48 U/L High 5 - 33 U/L [facility] Anion gap [Moles/Vol] 10 mmol/L 9 - 17 mmol/L [facility] AST [Catalytic activity/Vol] 74 U/L High NINF - 32 U/L [facility] Bilirubin [Mass/Vol] 0.4 mg/dL 0.3 - 1 .2 mg/dL [facility] Calcium [Mass/Vol] 9.3 mg/dL 8.6 - 10. 4 mg/dL [facility] Chloride [Moles/Vol] 98 mmol/L 98 - 10 7 mmol/L [facility] CO2 [Moles/Vol] 28 mmol/L 20 - 31 mmol/L [facility] Creatinine [Mass/Vol] 1.29 mg/dL High 0.50 - 0.90 mg/dL [facility] GFR/1.73 sq M.predicted MDRD (S/P/Bld) [Vol rate/Area] 45 mL/min/{1.73_m2} Low - PINF [facility] Comment on above: These results are not intended for use in patients <18 years of age. eGFR results are calculated without a race factor using the 2020 CKD-EPI equation. Careful clinical correlation is recommended, particularly when comparing to results calculated using previous equations. The CKD-EPI equation is less accurate in patients with extremes of muscle mass, extra-renal metabolism of creatine, excessive creatine ingestion, or following therapy that affects renal tubular secretion. Glucose [Mass/Vol] 133 mg/dL High 70 - 99 mg/dL [facility] Interpretation and review of laboratory results Abnormal [facility] Potassium [Moles/Vol] 4.6 mmol/L 3.7 - 5.3 mmol/L [facility] Protein [Mass/Vol] 7.0 g/dL 6.4 - 8.3 g/dL [facility] Sodium [Moles/Vol] 136 mmol/L 135 - 144 mmol/L [facility] Urea nitrogen [Mass/Vol] 15 mg/dL 8 - 23 mg/dL [facility] Urea nitrogen/Creatinine (Bld) [Mass ratio] 12 9 - 20 [facility] Magnesiumon 11-29-2022 Interpretation and review of laboratory results Abnormal [facility] Magnesium [Mass/Vol] 1.2 mg/dL Critically low 1.6 - 2.6 mg/dL [facility] Interpretation and review of laboratory results Abnormal [facility] Magnesium [Mass/Vol] 1.3 mg/dL Critically low 1.6 - 2.6 mg/dL [facility] Basic Metabolic Panelon 11-15 Anion gap [Moles/Vol] 8 mmol/L Low 9 - 17 mmol/L [facility] Calcium [Mass/Vol] 9.0 mg/dL 8.6 - 10. 4 mg/dL [facility] Chloride [Moles/Vol] 100 mmol/L 98 - 10 7 mmol/L [facility] CO2 [Moles/Vol] 28 mmol/L 20 - 31 mmol/L [facility] Creatinine [Mass/Vol] 1.21 mg/dL High 0.50 - 0.90 mg/dL [facility] GFR/1.73 sq M.predicted MDRD (S/P/Bld) [Vol rate/Area] 49 mL/min/{1.73_m2} Low - PINF [facility] Comment on above: These results are not intended for use in patients <18 years of age. eGFR results are calculated without a race factor using the 2020 CKD-EPI equation. Careful clinical correlation is recommended, particularly when comparing to results calculated using previous equations. The CKD-EPI equation is less accurate in patients with extremes of muscle mass, extra-renal metabolism of creatine, excessive creatine ingestion, or following therapy that affects renal tubular secretion. Glucose [Mass/Vol] 124 mg/dL High 70 - 99 mg/dL [facility] Interpretation and review of laboratory results Abnormal [facility] Potassium [Moles/Vol] 4.7 mmol/L 3.7 - 5.3 mmol/L [facility] Sodium [Moles/Vol] 136 mmol/L 135 - 144 mmol/L [facility] Urea nitrogen [Mass/Vol] 16 mg/dL 8 - 23 mg/dL [facility] Urea nitrogen/Creatinine (Bld) [Mass ratio] 13 9 - 20 [facility] CBC with Auto Differentialon 11-28-2022 Absolute Eos # 0.06 [place] [facility] Absolute Immature Granulocyte [facility] Absolute Lymph # 1.42 [facility] Absolute Sullivan # 0.29 [facility] RS [facility] Basophils Absolute [place] [facility] Basophils/100 WBC (Bld) 1 % 0 - 2 % B [facility] Eosinophils/100 WBC (Bld) 2 % 1 - 4 % [facility] Hematocrit (Bld) [Volume fraction] 29.3 % Low 36.3 - 47.1 % [facility] Hemoglobin (Bld) [Mass/Vol] 9.1 g/dL Low 11.9 - 15.1 g/dL [facility] Immature granulocytes/100 WBC (Bld) 0 % 0 [facility] Interpretation and review of laboratory results Abnormal [facility] Lymphocytes/100 WBC (Bld) 46 % High 24 - 43 % [facility] MCH (RBC) [Entitic mass] 29.0 pg 25. 2 - 33.5 pg [facility] MCHC (RBC) [Mass/Vol] 31.1 g/dL 28.4 - 34.8 g/dL [facility] MCV (RBC) [Entitic vol] 93.3 fL 82.6 - 102.9 fL [facility] Monocytes/100 WBC (Bld) 9 % 3 - 12 % B ON [facility] NRBC Automated 0.0 0.0 per 100 WBC [facility] Platelet distribution width (Bld) [Ratio] 19.0 % High 11.8 - 14.4 % [facility] Platelet mean volume (Bld) [Entitic vol] 9.7 fL 8.1 - 13.5 fL [facility] Platelets (Bld) [#/Vol] 108 10*3/uL Low [facility] RBC (Bld) [#/Vol] 3.14 10*6/uL Low 3.95 - 5.1 1 m/uL [facility] Segmented neutrophils/100 WBC (Bld) 42 % 36 - 65 % [facility] Segs Absolute 1.32 Low [facility] WBC (Bld) [#/Vol] 3.1 10*3/uL Low [facility] Magnesiumon 11-28-2022 Interpretation and review of laboratory results Abnormal [facility] Magnesium [Mass/Vol] 1.2 mg/dL Critically low 1.6 - 2.6 mg/dL [facility] COVID-19, Rapidon 11-25-2022 SARS-CoV-2 (COVID-19) RdRp gene MARIUSZ+probe Ql (Resp) Not detected Not Detected [facility] Comment on above: Rapid NAAT: The specimen is NEGATIVE for SARS-CoV-2, the novel coronavirus associated with COVID-19. The ID NOW COVID-19 assay is designed to detect the virus that causes COVID-19 in patients with signs and symptoms of infection who are suspected of COVID-19. An individual without symptoms of COVID-19 and who is not shedding SARS-CoV-2 virus would expect to have a negative (not detected) result in this assay. Negative results should be treated as presumptive and, if inconsistent with clinical signs and symptoms or necessary for patient management, should be tested with an alternative molecular assay. Negative results do not preclude SARS-CoV-2 infection and should not be used as the sole basis for patient management decisions. Fact sheet for Healthcare Providers: https://www.fda.gov/media/131352/download Fact sheet for Patients: https://www.fda.gov/media/657116/download Methodology: Isothermal Nucleic Acid Amplification Specimen Description .NASOPHARYNGEAL SWAB [facility] Comprehensive Metabolic Pane l w/ Reflex to MGon 11-25-2022 Albumin [Mass/Vol] 2.7 g/dL Low 3.5 - 5.2 g/dL [facility] Albumin/Globulin [Mass ratio] 0.9 {ratio} Low 1.0 - 2.5 [facility] ALP [Catalytic activity/Vol] 157 U/L High 35 - 104 U/L [facility] ALT [Catalytic activity/Vol] 32 U/L 5 - 33 U/L [facility] Anion gap [Moles/Vol] 5 mmol/L Low 9 - 17 mmol/L [facility] AST [Catalytic activity/Vol] 43 U/L High NINF - 32 U/L [facility] Bilirubin [Mass/Vol] 0.2 mg/dL Low 0.3 - 1 .2 mg/dL [facility] Calcium [Mass/Vol] 8.8 mg/dL 8.6 - 10. 4 mg/dL [facility] Chloride [Moles/Vol] 105 mmol/L 98 - 10 7 mmol/L [facility] CO2 [Moles/Vol] 28 mmol/L 20 - 31 mmol/L [facility] Creatinine [Mass/Vol] 1.07 mg/dL High 0.50 - 0.90 mg/dL [facility] GFR/1.73 sq M.predicted MDRD (S/P/Bld) [Vol rate/Area] 57 mL/min/{1.73_m2} Low - PINF [facility] Comment on above: These results are not intended for use in patients <18 years of age. eGFR results are calculated without a race factor using the 2020 CKD-EPI equation. Careful clinical correlation is recommended, particularly when comparing to results calculated using previous equations. The CKD-EPI equation is less accurate in patients with extremes of muscle mass, extra-renal metabolism of creatine, excessive creatine ingestion, or following therapy that affects renal tubular secretion. Glucose [Mass/Vol] 151 mg/dL High 70 - 99 mg/dL [facility] Interpretation and review of laboratory results Abnormal [facility] Potassium [Moles/Vol] 5.3 mmol/L 3.7 - 5.3 mmol/L [facility] Protein [Mass/Vol] 5.7 g/dL Low 6.4 - 8.3 g/dL [facility] Sodium [Moles/Vol] 138 mmol/L 135 - 144 mmol/L [facility] Urea nitrogen [Mass/Vol] 14 mg/dL 8 - 23 mg/dL [facility] Urea nitrogen/Creatinine (Bld) [Mass ratio] 13 9 - 20 [facility] Glucose, Whole Bloodon 11-25 Glucose [Mass/Vol] 143 mg/dL High 74 - 100 mg/dL [facility] Interpretation and review of laboratory results Abnormal [facility] Glucose [Mass/Vol] 117 mg/dL High 74 - 100 mg/dL [facility] Interpretation and review of laboratory results Abnormal [facility] Comprehensive Metabolic Pane l w/ Reflex to MGon 11-24-2022 Albumin [Mass/Vol] 2.7 g/dL Low 3.5 - 5.2 g/dL [facility] Albumin/Globulin [Mass ratio] 1.0 {ratio} 1.0 - 2.5 [facility] ALP [Catalytic activity/Vol] 162 U/L High 35 - 104 U/L [facility] ALT [Catalytic activity/Vol] 34 U/L High 5 - 33 U/L [facility] Anion gap [Moles/Vol] 5 mmol/L Low 9 - 17 mmol/L [facility] AST [Catalytic activity/Vol] 48 U/L High NINF - 32 U/L [facility] Bilirubin [Mass/Vol] 0.2 mg/dL Low 0.3 - 1 .2 mg/dL [facility] Calcium [Mass/Vol] 8.7 mg/dL 8.6 - 10. 4 mg/dL [facility] Chloride [Moles/Vol] 103 mmol/L 98 - 10 7 mmol/L [facility] CO2 [Moles/Vol] 28 mmol/L 20 - 31 mmol/L [facility] Creatinine [Mass/Vol] 1.21 mg/dL High 0.50 - 0.90 mg/dL [facility] GFR/1.73 sq M.predicted MDRD (S/P/Bld) [Vol rate/Area] 49 mL/min/{1.73_m2} Low - PINF [facility] Comment on above: These results are not intended for use in patients <18 years of age. eGFR results are calculated without a race factor using the 2020 CKD-EPI equation. Careful clinical correlation is recommended, particularly when comparing to results calculated using previous equations. The CKD-EPI equation is less accurate in patients with extremes of muscle mass, extra-renal metabolism of creatine, excessive creatine ingestion, or following therapy that affects renal tubular secretion. Glucose [Mass/Vol] 191 mg/dL High 70 - 99 mg/dL [facility] Interpretation and review of laboratory results Abnormal [facility] Potassium [Moles/Vol] 5.3 mmol/L 3.7 - 5.3 mmol/L [facility] Protein [Mass/Vol] 5.5 g/dL Low 6.4 - 8.3 g/dL [facility] Sodium [Moles/Vol] 136 mmol/L 135 - 144 mmol/L [facility] Urea nitrogen [Mass/Vol] 12 mg/dL 8 - 23 mg/dL [facility] Urea nitrogen/Creatinine (Bld) [Mass ratio] 10 9 - 20 [facility] Glucose, Whole Bloodon 11-24 Glucose [Mass/Vol] 230 mg/dL High 74 - 100 mg/dL [facility] Interpretation and review of laboratory results Abnormal [facility] Glucose [Mass/Vol] 183 mg/dL High 74 - 100 mg/dL [facility] Interpretation and review of laboratory results Abnormal [facility] Glucose [Mass/Vol] 203 mg/dL High 74 - 100 mg/dL [facility] Interpretation and review of laboratory results Abnormal [facility] Glucose [Mass/Vol] 164 mg/dL High 74 - 100 mg/dL [facility] Interpretation and review of laboratory results Abnormal [facility] CBC auto differentialon 04-0 Absolute Eos # 0.04 [place] [facility] Absolute Immature Granulocyte [facility] Absolute Lymph # 0.90 Low [facility] [facility] Absolute [facility] Basophils Absolute [place] [facility] Basophils/100 WBC (Bld) 0 % 0 - 2 % [facility] Eosinophils/100 WBC (Bld) 2 % 1 - 4 % [facility] Hematocrit (Bld) [Volume fraction] 28.8 % Low 36.3 - 47.1 % [facility] Hemoglobin (Bld) [Mass/Vol] 9.3 g/dL Low 11.9 - 15.1 g/dL [facility] Immature granulocytes/100 WBC (Bld) 0 % 0 [facility] Interpretation and review of laboratory results Abnormal [facility] Lymphocytes/100 WBC (Bld) 35 % 24 - 43 % [facility] MCH (RBC) [Entitic mass] 30.0 pg 25. 2 - 33.5 pg [facility] MCHC (RBC) [Mass/Vol] 32.3 g/dL 28.4 - 34.8 g/dL [facility] MCV (RBC) [Entitic vol] 92.9 fL 82.6 - 102.9 fL [facility] Monocytes/100 WBC (Bld) 8 % 3 - 12 % [facility] NRBC Automated 0.8 High 0.0 per 100 WBC [facility] Platelet distribution width (Bld) [Ratio] 18.6 % High 11.8 - 14.4 % [facility] Platelets (Bld) [#/Vol] See Reflexed IPF Result [facility] RBC (Bld) [#/Vol] 3.10 10*6/uL Low 3.95 - 5.1 1 m/uL [facility] Segmented neutrophils/100 WBC (Bld) 55 % 36 - 65 % [facility] Segs Absolute 1.43 Low [facility] WBC (Bld) [#/Vol] 2.6 10*3/uL Low [facility] Comprehensive Metabolic Pane l w/ Reflex to MGon 11-23-2022 Albumin [Mass/Vol] 2.7 g/dL Low 3.5 - 5.2 g/dL [facility] Albumin/Globulin [Mass ratio] 0.9 {ratio} Low 1.0 - 2.5 [facility] ALP [Catalytic activity/Vol] 158 U/L High 35 - 104 U/L [facility] ALT [Catalytic activity/Vol] 41 U/L High 5 - 33 U/L [facility] Anion gap [Moles/Vol] 5 mmol/L Low 9 - 17 mmol/L [facility] AST [Catalytic activity/Vol] 70 U/L High NINF - 32 U/L [facility] Bilirubin [Mass/Vol] 0.2 mg/dL Low 0.3 - 1 .2 mg/dL [facility] Calcium [Mass/Vol] 8.8 mg/dL 8.6 - 10. 4 mg/dL [facility] Chloride [Moles/Vol] 106 mmol/L 98 - 10 7 mmol/L [facility] CO2 [Moles/Vol] 29 mmol/L 20 - 31 mmol/L [facility] Creatinine [Mass/Vol] 1.08 mg/dL High 0.50 - 0.90 mg/dL [facility] GFR/1.73 sq M.predicted MDRD (S/P/Bld) [Vol rate/Area] 56 mL/min/{1.73_m2} Low - PINF [facility] Comment on above: These results are not intended for use in patients <18 years of age. eGFR results are calculated without a race factor using the 2020 CKD-EPI equation. Careful clinical correlation is recommended, particularly when comparing to results calculated using previous equations. The CKD-EPI equation is less accurate in patients with extremes of muscle mass, extra-renal metabolism of creatine, excessive creatine ingestion, or following therapy that affects renal tubular secretion. Glucose [Mass/Vol] 148 mg/dL High 70 - 99 mg/dL [facility] Interpretation and review of laboratory results Abnormal [facility] Potassium [Moles/Vol] 4.8 mmol/L 3.7 - 5.3 mmol/L [facility] Protein [Mass/Vol] 5.7 g/dL Low 6.4 - 8.3 g/dL [facility] Sodium [Moles/Vol] 140 mmol/L 135 - 144 mmol/L [facility] Urea nitrogen [Mass/Vol] 11 mg/dL 8 - 23 mg/dL [facility] Urea nitrogen/Creatinine (Bld) [Mass ratio] 10 9 - 20 [facility] Glucose, Whole Bloodon 11-23 Glucose [Mass/Vol] 192 mg/dL High 74 - 100 mg/dL [facility] Interpretation and review of laboratory results Abnormal [facility] Glucose [Mass/Vol] 176 mg/dL High 74 - 100 mg/dL [facility] Interpretation and review of laboratory results Abnormal [facility] Glucose [Mass/Vol] 209 mg/dL High 74 - 100 mg/dL [facility] Interpretation and review of laboratory results Abnormal [facility] Glucose [Mass/Vol] 144 mg/dL High 74 - 100 mg/dL [facility] Interpretation and review of laboratory results Abnormal [facility] Immature Platelet Fractionon 11-23-2022 Interpretation and review of laboratory results Abnormal [facility] Platelet, Fluorescence 105 Low [facility] Platelet, Immature Fraction 1.9 % 1.1 - 10.3 % [facility] CBC auto differentialon Absolute Eos # 0.05 [facility] Absolute Immature Granulocyte [facility] Absolute Lymph # 0.92 Low [facility] Absolute Sullivan # 0.20 [facility] Basophils Absolute [facility] [facility] Basophils/100 WBC (Bld) 0 % 0 - 2 % [facility] Eosinophils/100 WBC (Bld) 2 % 1 - 4 % [facility] Hematocrit (Bld) [Volume fraction] 27.5 % Low 36.3 - 47.1 % [facility] Hemoglobin (Bld) [Mass/Vol] 8.8 g/dL Low 11.9 - 15.1 g/dL [facility] Immature granulocytes/100 WBC (Bld) 0 % 0 [facility] Interpretation and review of laboratory results Abnormal [facility] Lymphocytes/100 WBC (Bld) 34 % 24 - 43 % [facility] MCH (RBC) [Entitic mass] 29.3 pg 25. 2 - 33.5 pg [facility] MCHC (RBC) [Mass/Vol] 32.0 g/dL 28.4 - 34.8 g/dL [facility] MCV (RBC) [Entitic vol] 91.7 fL 82.6 - 102.9 fL [facility] Monocytes/100 WBC (Bld) 7 % 3 - 12 % [facility] NRBC Automated 1.1 High 0.0 per 100 WBC [facility] Platelet distribution width (Bld) [Ratio] 18.4 % High 11.8 - 14.4 % [facility] Platelet mean volume (Bld) [Entitic vol] 10.4 fL 8.1 - 13.5 fL [facility] Platelets (Bld) [#/Vol] 101 10*3/uL Low [facility] RBC (Bld) [#/Vol] 3.00 10*6/uL Low 3.95 - 5.1 1 m/uL [facility] Segmented neutrophils/100 WBC (Bld) 57 % 36 - 65 % [facility] Segs Absolute 1.51 [facility] WBC (Bld) [#/Vol] 2.7 10*3/uL Low [facility] Comprehensive Metabolic Pane l w/ Reflex to MGon 11-22-2022 Albumin [Mass/Vol] 2.7 g/dL Low 3.5 - 5.2 g/dL [facility] Albumin/Globulin [Mass ratio] 0.9 {ratio} Low 1.0 - 2.5 [facility] ALP [Catalytic activity/Vol] 129 U/L High 35 - 104 U/L [facility] ALT [Catalytic activity/Vol] 32 U/L 5 - 33 U/L [facility] Anion gap [Moles/Vol] 6 mmol/L Low 9 - 17 mmol/L [facility] AST [Catalytic activity/Vol] 55 U/L High NINF - 32 U/L [facility] Bilirubin [Mass/Vol] mg/dL Low 0.3 - 1 .2 mg/dL [facility] Calcium [Mass/Vol] 8.5 mg/dL Low 8.6 - 10. 4 mg/dL [facility] Chloride [Moles/Vol] 107 mmol/L 98 - 10 7 mmol/L [facility] CO2 [Moles/Vol] 29 mmol/L 20 - 31 mmol/L [facility] Creatinine [Mass/Vol] 1.29 mg/dL High 0.50 - 0.90 mg/dL [facility] GFR/1.73 sq M.predicted MDRD (S/P/Bld) [Vol rate/Area] 45 mL/min/{1.73_m2} Low - PINF [facility] Comment on above: These results are not intended for use in patients <18 years of age. eGFR results are calculated without a race factor using the 2020 CKD-EPI equation. Careful clinical correlation is recommended, particularly when comparing to results calculated using previous equations. The CKD-EPI equation is less accurate in patients with extremes of muscle mass, extra-renal metabolism of creatine, excessive creatine ingestion, or following therapy that affects renal tubular secretion. Glucose [Mass/Vol] 180 mg/dL High 70 - 99 mg/[facility] Interpretation and review of laboratory results Abnormal [facility] Potassium [Moles/Vol] 4.3 mmol/L 3.7 - 5.3 mmol/L [facility] Protein [Mass/Vol] 5.8 g/dL Low 6.4 - 8.3 g/dL [facility] Sodium [Moles/Vol] 142 mmol/L 135 - 144 mmol/L [facility] Urea nitrogen [Mass/Vol] 17 mg/dL 8 - 23 mg/dL [facility] Urea nitrogen/Creatinine (Bld) [Mass ratio] 13 9 - 20 [facility] EKG Rhythm Stripon 3 [facility] LAB [facility] LAB [facility] LAB [facility] Glucose, Whole Bloodon 11-22 Glucose [Mass/Vol] 169 mg/dL High 74 - 100 mg/dL [facility] Interpretation and review of laboratory results Abnormal [facility] Glucose [Mass/Vol] 202 mg/dL High 74 - 100 mg/dL [facility] Interpretation and review of laboratory results Abnormal [facility] Glucose [Mass/Vol] 163 mg/dL High 74 - 100 mg/dL [facility] Interpretation and review of laboratory results Abnormal [facility] Glucose [Mass/Vol] 171 mg/dL High 74 - 100 mg/dL [facility] Interpretation and review of laboratory results Abnormal [facility] Magnesiumon 11-22-2022 Magnesium [Mass/Vol] 1.7 mg/dL 1.6 - 2 .6 mg/dL [facility] CBC auto differentialon Absolute Eos # 0.04 [place] [facility] Absolute Immature Granulocyte [facility] Absolute Lymph # 0.95 Low [facility] Absolute Sullivan # 0.22 [facility] Basophils Absolute [place] [facility] Basophils/100 WBC (Bld) 0 % 0 - 2 % B [facility] Eosinophils/100 WBC (Bld) 2 % 1 - 4 % [facility] Hematocrit (Bld) [Volume fraction] 27.0 % Low 36.3 - 47.1 % [facility] Hemoglobin (Bld) [Mass/Vol] 8.9 g/dL Low 11.9 - 15.1 g/dL [facility] Immature granulocytes/100 WBC (Bld) 0 % 0 [facility] Interpretation and review of laboratory results Abnormal [facility] Lymphocytes/100 WBC (Bld) 35 % 24 - 43 % [facility] MCH (RBC) [Entitic mass] 29.4 pg 25. 2 - 33.5 pg [facility] MCHC (RBC) [Mass/Vol] 33.0 g/dL 28.4 - 34.8 g/dL [facility] MCV (RBC) [Entitic vol] 89.1 fL 82.6 - 102.9 fL [facility] Monocytes/100 WBC (Bld) 8 % 3 - 12 % [facility] NRBC Automated 0.0 0.0 per 100 WBC [facility] Platelet distribution width (Bld) [Ratio] 17.6 % High 11.8 - 14.4 % [facility] Platelet mean volume (Bld) [Entitic vol] 10.3 fL 8.1 - 13.5 fL [facility] Platelets (Bld) [#/Vol] 107 10*3/uL Low [facility] RBC (Bld) [#/Vol] 3.03 10*6/uL Low 3.95 - 5.1 1 m/uL [facility] Segmented neutrophils/100 WBC (Bld) 55 % 36 - 65 % [facility] Segs Absolute 1.46 Low [facility] WBC (Bld) [#/Vol] 2.7 10*3/uL Low [facility] Comprehensive Metabolic Pane l w/ Reflex to MGon 11-21-2022 Albumin [Mass/Vol] 2.6 g/dL Low 3.5 - 5.2 g/dL [facility] Albumin/Globulin [Mass ratio] 0.9 {ratio} Low 1.0 - 2.5 [facility] ALP [Catalytic activity/Vol] 107 U/L High 35 - 104 U/L [facility] ALT [Catalytic activity/Vol] 17 U/L 5 - 33 U/L [facility] Anion gap [Moles/Vol] 9 mmol/L 9 - 17 mmol/L [facility] AST [Catalytic activity/Vol] 30 U/L NINF - 32 U/L [facility] Bilirubin [Mass/Vol] 0.2 mg/dL Low 0.3 - 1 .2 mg/dL [facility] Calcium [Mass/Vol] 8.4 mg/dL Low 8.6 - 10. 4 mg/dL [facility] Chloride [Moles/Vol] 104 mmol/L 98 - 10 7 mmol/L [facility] CO2 [Moles/Vol] 30 mmol/L 20 - 31 mmol/L [facility] Creatinine [Mass/Vol] 1.2 mg/dL High 0.50 - 0.90 mg/dL [facility] GFR/1.73 sq M.predicted MDRD (S/P/Bld) [Vol rate/Area] 49 mL/min/{1.73_m2} Low - PINF [facility] Comment on above: These results are not intended for use in patients <18 years of age. eGFR results are calculated without a race factor using the 2020 CKD-EPI equation. Careful clinical correlation is recommended, particularly when comparing to results calculated using previous equations. The CKD-EPI equation is less accurate in patients with extremes of muscle mass, extra-renal metabolism of creatine, excessive creatine ingestion, or following therapy that affects renal tubular secretion. Glucose [Mass/Vol] 135 mg/dL High 70 - 99 mg/dL [facility] Interpretation and review of laboratory results Abnormal [facility] Potassium [Moles/Vol] 3.4 mmol/L Low 3.7 - 5.3 mmol/L [facility] Protein [Mass/Vol] 5.6 g/dL Low 6.4 - 8.3 g/dL [facility] Sodium [Moles/Vol] 143 mmol/L 135 - 144 mmol/L [facility] Urea nitrogen [Mass/Vol] 25 mg/dL High 8 - 23 mg/dL [facility] Urea nitrogen/Creatinine (Bld) [Mass ratio] 21 High 9 - 20 [facility] Culture, Urineon 04-07-2023 Interpretation and review of laboratory results Abnormal [facility] Microorganism identified Cx Nom (Unsp spec) ESCHERICHIA COLI >[id number] CFU/ML Abnormal [facility] Specimen Description .CLEAN CATCH URINE [facility] EKG Rhythm Stripon 3 [facility] LAB [facility] LAB [facility] Glucose, Whole Bloodon 11-21 Glucose [Mass/Vol] 193 mg/dL High 74 - 100 mg/dL [facility] Interpretation and review of laboratory results Abnormal [facility] Glucose [Mass/Vol] 217 mg/dL High 74 - 100 mg/dL [facility] Interpretation and review of laboratory results Abnormal [facility] Glucose [Mass/Vol] 170 mg/dL High 74 - 100 mg/dL [facility] Interpretation and review of laboratory results Abnormal [facility] Glucose [Mass/Vol] 129 mg/dL High 74 - 100 mg/dL [facility] Interpretation and review of laboratory results Abnormal [facility] Magnesiumon 11-21-2022 Magnesium [Mass/Vol] 1.9 mg/dL 1.6 - 2 .6 mg/dL [facility] Path Review, Smearon 023 Pathologist review Pathologist comment (Bld) [Interp] SEE REPORT [facility] Comment on above: REVIEWING PATHOLOGIST: ELECTRONICALLY SIGNED. BRANDON PINON M.D. [facility] SURGICAL PATHOLOGY REPORTon 11-21-2022 Surgical Pathology Report [id number] [facility] [employer] [facility] ANATOMIC PATHOLOGY [address] [place] [id number] SURGICAL PATHOLOGY CONSULTATION Patient Name: ANGELLA OLSON MR#: [id number] Specimen #[id number] Procedures/Addenda PERIPHERAL BLOOD REPORT Date Ordered: 11/21/2022 Status: Signed Out Date Complete: 11/21/2022 By: Brandon Pinon M.D. Date Reported: 11/21/2022 INTERPRETATION PERIPHERAL BLOOD: PROGRESSIVE PANCYTOPENIA WITH ABSOLUTE NEUTROPENIA. THE PATIENT HAS A KNOWN HISTORY OF ACUTE KIDNEY INJURY SUPERIMPOSED ON CHRONIC KIDNEY DISEASE AND CIRRHOSIS. PANCYTOPENIA MAY BE OBSERVED WITH INFECTION, MEDICATION/TOXIN EFFECT, AND BONE MARROW CONDITIONS (INCLUDING SUPPRESSION AND FAILURE). MILD ABSOLUTE NEUTROPENIA IS PRESENT. THIS MAY INDICATE AN INCREASED RISK OF INFECTION. IF THE PANCYTOPENIA PERSISTS WITHOUT IDENTIFIED TREATABLE CAUSE, BONE MARROW EXAMINATION MAY BE INDICATED. RESULTS-COMMENTS PERIPHERAL BLOOD STUDY CBC: Please see the electronic health record for CBC parameters ([id number], 11/20/2022, 05:35). PLATELETS: Platelets show normal morphology. LEUKOCYTES: White blood cells show normal morphology. There are no blasts. ERYTHROCYTES: Red blood cells show anisocytosis. Note: The electronic health record is reviewed. Brandon Pinon M.D. Source: A: Peripheral Blood [facility] CBC auto differentialon 04-0 Absolute Eos # 0.03 [place] [facility] Absolute Immature Granulocyte 0.00 [facility] Absolute Lymph # [facility] [facility] Absolute Sullivan # 0.22 [facility] RS [facility] Basophils (Bld) [#/Vol] 0.03 10*3/uL [facility] Basophils/100 WBC (Bld) 1 % 0 - 2 % B [facility] Eosinophils/100 WBC (Bld) 1 % 1 - 4 % [facility] Hematocrit (Bld) [Volume fraction] 30.0 % Low 36.3 - 47.1 % [facility] Hemoglobin (Bld) [Mass/Vol] 10.1 g/dL Low 11.9 - 15.1 g/dL [facility] Immature granulocytes/100 WBC (Bld) 0 % 0 [facility] Interpretation and review of laboratory results Abnormal [facility] Lymphocytes/100 WBC (Bld) 46 % High 24 - 43 % [facility] MCH (RBC) [Entitic mass] 29.9 pg 25. 2 - 33.5 pg [facility] MCHC (RBC) [Mass/Vol] 33.7 g/dL 28.4 - 34.8 g/dL [facility] MCV (RBC) [Entitic vol] 88.8 fL 82.6 - 102.9 fL [facility] Monocytes/100 WBC (Bld) 8 % 3 - 12 % B ON [facility] Morphology Lucio (Bld) [Interp] Platelet scan shows Decreased Platelets [facility] NRBC Automated 0.0 0.0 per 100 WBC [facility] Platelet distribution width (Bld) [Ratio] 17.2 % High 11.8 - 14.4 % [facility] Platelets (Bld) [#/Vol] See Reflexed IPF Result [facility] RBC (Bld) [#/Vol] 3.38 10*6/uL Low 3.95 - 5.1 1 m/uL [facility] Segmented neutrophils/100 WBC (Bld) 44 % 36 - 65 % [facility] Segs Absolute 1.23 Low [facility] WBC (Bld) [#/Vol] 2.8 10*3/uL Low [facility] Comprehensive Metabolic Pane l w/ Reflex to MGon 11-20-2022 Albumin [Mass/Vol] 2.9 g/dL Low 3.5 - 5.2 g/dL [facility] Albumin/Globulin [Mass ratio] 0.9 {ratio} Low 1.0 - 2.5 [facility] ALP [Catalytic activity/Vol] 109 U/L High 35 - 104 U/L [facility] ALT [Catalytic activity/Vol] 16 U/L 5 - 33 U/L [facility] Anion gap [Moles/Vol] 12 mmol/L 9 - 17 mmol/L [facility] AST [Catalytic activity/Vol] 28 U/L NINF - 32 U/L [facility] Bilirubin [Mass/Vol] 0.2 mg/dL Low 0.3 - 1 .2 mg/dL [facility] Calcium [Mass/Vol] 8.7 mg/dL 8.6 - 10. 4 mg/dL [facility] Chloride [Moles/Vol] 105 mmol/L 98 - 10 7 mmol/L [facility] CO2 [Moles/Vol] 23 mmol/L 20 - 31 mmol/L [employer] Creatinine [Mass/Vol] 1.58 mg/dL High 0.50 - 0.90 mg/dL [email or web address] [facility] GFR/1.73 sq M.predicted MDRD (S/P/Bld) [Vol rate/Area] 35 mL/min/{1.73_m2} Low - PINF [employer] Comment on above: These results are not intended for use in patients <18 years of age. eGFR results are calculated without a race factor using the 2020 CKD-EPI equation. Careful clinical correlation is recommended, particularly when comparing to results calculated using previous equations. The CKD-EPI equation is less accurate in patients with extremes of muscle mass, extra-renal metabolism of creatine, excessive creatine ingestion, or following therapy that affects renal tubular secretion. Glucose [Mass/Vol] 84 mg/dL 70 - 99 mg/dL [employer] Interpretation and review of laboratory results Abnormal [facility] [employer] Potassium [Moles/Vol] 3.8 mmol/L 3.7 - 5.3 mmol/L [email or web address] [facility] Protein [Mass/Vol] 6.3 g/dL Low 6.4 - 8.3 g/dL [email or web address] [facility] Sodium [Moles/Vol] 140 mmol/L 135 - 144 mmol/L [facility] Urea nitrogen [Mass/Vol] 47 mg/dL High 8 - 23 mg/dL [email or web address] [facility] Urea nitrogen/Creatinine (Bld) [Mass ratio] 30 High 9 - 20 [facility] EKG 12 Leadon 11-20-2022 Atrial Rate 95 BPM [employer] Work Phone: P Henderson 55 degrees [employer] Work Phone: P-R Interval 138 ms [employer] Work Phone: Q-T Interval 304 ms [employer] Work Phone: QRS Duration 88 ms [employer] Work Phone: QTc Calculation (Bazett) 382 ms [employer] Work Phone: R Henderson -12 degrees NEFTALI [employer] Phone: T Henderson 133 degrees NEFTALI [employer] Phone: Ventricular Rate 95 BPM NEFTALI ALANIZ [employer] Phone: Normal sinus rhythm 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) Anterolateral infarct (cited on or before 27-DEC-2021) Abnormal ECG When compared with ECG of 18-NOV-2022 20:27, Nonspecific T wave abnormality now evident in Anterior leads Nonspecific T wave abnormality has replaced inverted T waves in Lateral leads QT has shortened Confirmed by FER MEADOWS ([id number]) on 11/20/2022 10:55:09 PM [facility] Fer Meadows MD - 11/20/2022 Normal sinus rhythm 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) Anterolateral infarct (cited on or before 27-DEC-2021) Abnormal ECG When compared with ECG of 18-NOV-2022 20:27, Nonspecific T wave abnormality now evident in Anterior leads Nonspecific T wave abnormality has replaced inverted T waves in Lateral leads QT has shortened Confirmed by FER MEADOWS ([id number]) on 11/20/2022 10:55:09 PM [employer] Phone: NEFTALI [employer] Phone: Normal sinus rhythm 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) Possible Anterior infarct (cited on or before 27-DEC-2021) T wave abnormality, consider lateral ischemia Abnormal ECG When compared with ECG of 03-OCT-2022 20:00, Questionable change in initial forces of Inferior leads Confirmed by FER MEADOWS ([id number]) on 11/20/2022 12:06:02 AM [facility] Fer Meadows MD - 11/20/2022 Normal sinus rhythm 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) Possible Anterior infarct (cited on or before 27-DEC-2021) T wave abnormality, consider lateral ischemia Abnormal ECG When compared with ECG of 03-OCT-2022 20:00, Questionable change in initial forces of Inferior leads Confirmed by FER MEADOWS ([id number]) on 11/20/2022 12:06:02 AM [employer] Work Phone: EKG 12 LeadOrdered By: Elmer Meadows on 11-20-2022 Atrial Rate 86 BPM [employer] Work Phone: P Henderson 1 degrees [employer] Work Phone: P-R Interval 144 ms [employer] Work Phone: Q-T Interval 374 ms [employer] Work Phone: QRS Duration 98 ms [employer] Work Phone: QTc Calculation (Bazett) 447 ms [employer] Work Phone: R Henderson -13 degrees [employer] Work Phone: T Henderson 116 degrees [employer] Work Phone: Ventricular Rate 86 BPM [email or web address] [employer] Work Phone: [employer] Work Phone: EKG Rhythm Stripon 3 [facility] LAB [facility] LAB [facility] LAB [facility]ITAL[facility] [employer] Ferritinon 11-20-2022 Ferritin [Mass/Vol] 103 ng/mL 13 - 150 ng/mL [facility] Glucose, Whole Bloodon 11-20 Glucose [Mass/Vol] 268 mg/dL High 74 - 100 mg/dL [facility] Interpretation and review of laboratory results Abnormal [facility] Glucose [Mass/Vol] 242 mg/dL High 74 - 100 mg/dL [facility] Interpretation and review of laboratory results Abnormal [facility] Glucose [Mass/Vol] 203 mg/dL High 74 - 100 mg/dL [facility] Interpretation and review of laboratory results Abnormal [facility] Immature Platelet Fractionon 11-20-2022 Interpretation and review of laboratory results Abnormal [facility] Platelet, Fluorescence 111 Low [facility] Platelet, Immature Fraction 1.7 % 1.1 - 10.3 % [facility] Iron and TIBCon 11-20-2022 Interpretation and review of laboratory results Abnormal [facility] Iron [Mass/Vol] 41 ug/dL 37 - 145 ug/dL [facility] Iron binding capacity [Mass/Vol] 208 ug/dL Low 250 - 450 ug/dL [facility] Iron Saturation 20 % 20 - 55 % [facility] UIBC 167 ug/dL 112 - 347 ug/dL [facility] Magnesiumon 11-20-2022 Interpretation and review of laboratory results Abnormal [facility] Magnesium [Mass/Vol] 1.4 mg/dL Low 1.6 - 2 .6 mg/dL [facility] Interpretation and review of laboratory results Abnormal [facility] Magnesium [Mass/Vol] 1.1 mg/dL Critically low 1.6 - 2.6 mg/dL [facility] No Panel Informationon 11-20 [facility] Reticulocyteson 11-20-2022 Absolute Retic # 0.094 High [facility] Immature Retic Fract 17.1 % 2.7 - 1 8.3 % [facility] Interpretation and review of laboratory results Abnormal [facility] Retic Hemoglobin 35.2 pg 28.2 - 35.7 pg [facility] Reticulocytes/100 RBC (Bld) 2.8 % High 0.5 - 1.9 % [facility] Vitamin B12 & Folateon 11-20 Cobalamin (Vitamin B12) [Mass/Vol] 847 pg/mL 232 - 1245 pg/mL [facility] Folate [Mass/Vol] 16.8 ng/mL 4.8 - PINF ng/mL [facility] Vitamin D 25 Hydroxyon 11-20 25-hydroxyvitamin D3 [Mass/Vol] 49.8 ng/mL 29.9 - PINF ng/mL [facility] Comment on above: Reference Range: Vitamin D status Range Deficiency <20 ng/mL Mild Deficiency 20-30 ng/mL Sufficiency 30-100 ng/mL Toxicity >100 ng/mL CBC auto differentialon Absolute Eos # 0.10 [facility] Absolute Immature Granulocyte [facility] Absolute Lymph # 1.81 [facility] Absolute Sullivan # 0.43 [facility] RS [facility] Basophils Absolute [facility] Basophils/100 WBC (Bld) 0 % 0 - 2 % B ON [facility] Eosinophils/100 WBC (Bld) 2 % 1 - 4 % [facility] Hematocrit (Bld) [Volume fraction] 33.3 % Low 36.3 - 47.1 % [facility] Hemoglobin (Bld) [Mass/Vol] 11.1 g/dL Low 11.9 - 15.1 g/dL [facility] Immature granulocytes/100 WBC (Bld) 0 % 0 [facility] Interpretation and review of laboratory results Abnormal [facility] Lymphocytes/100 WBC (Bld) 33 % 24 - 43 % [facility] MCH (RBC) [Entitic mass] 29.8 pg 25. 2 - 33.5 pg [facility] MCHC (RBC) [Mass/Vol] 33.3 g/dL 28.4 - 34.8 g/dL [facility] MCV (RBC) [Entitic vol] 89.3 fL 82.6 - 102.9 fL [facility] Monocytes/100 WBC (Bld) 8 % 3 - 12 % B ON [facility] NRBC Automated 0.0 0.0 per 100 WBC [facility] Platelet distribution width (Bld) [Ratio] 17.2 % High 11.8 - 14.4 % [facility] Platelet mean volume (Bld) [Entitic vol] 10.1 fL 8.1 - 13.5 fL [facility] Platelets (Bld) [#/Vol] 115 10*3/uL Low [facility] RBC (Bld) [#/Vol] 3.73 10*6/uL Low 3.95 - 5.1 1 m/uL [facility] Segmented neutrophils/100 WBC (Bld) 57 % 36 - 65 % [facility] Segs Absolute 3.20 [facility] WBC (Bld) [#/Vol] 5.6 10*3/uL [facility] CT HEAD WO CONTRASTon 2022 No acute intracranial abnormality. Redemonstration of age-appropriate atrophy. [facility] EXAMINATION: CT OF THE HEAD WITHOUT CONTRAST 11/18/2022 8:50 pm TECHNIQUE: CT of the head was performed without the administration of intravenous contrast. Automated exposure control, iterative reconstruction, and/or weight based adjustment of the mA/kV was utilized to reduce the radiation dose to as low as reasonably achievable. COMPARISON: October 03, 2022 HISTORY: ORDERING SYSTEM PROVIDED HISTORY: altered mental TECHNOLOGIST PROVIDED HISTORY: altered mental Decision Support Exception - unselect if not a suspected or confirmed emergency medical condition->Emergency Medical Condition (MA) FINDINGS: BRAIN/VENTRICLES: There is no acute intracranial hemorrhage, mass effect or midline shift. No abnormal extra-axial fluid collection. The mckoy-white differentiation is maintained without evidence of an acute infarct. There is no evidence of hydrocephalus. Redemonstration of age-appropriate atrophy. ORBITS: The visualized portion of the orbits demonstrate no acute abnormality. SINUSES: The visualized paranasal sinuses and mastoid air cells demonstrate no acute abnormality. SOFT TISSUES/SKULL: No acute abnormality of the visualized skull or soft tissues. [facility] Mis Baker MD - 11/19/2022 EXAMINATION: CT OF THE HEAD WITHOUT CONTRAST 11/18/2022 8:50 pm TECHNIQUE: CT of the head was performed without the administration of intravenous contrast. Automated exposure control, iterative reconstruction, and/or weight based adjustment of the mA/kV was utilized to reduce the radiation dose to as low as reasonably achievable. COMPARISON: October 03, 2022 HISTORY: ORDERING SYSTEM PROVIDED HISTORY: altered mental TECHNOLOGIST PROVIDED HISTORY: altered mental Decision Support Exception - unselect if not a suspected or confirmed emergency medical condition->Emergency Medical Condition (MA) FINDINGS: BRAIN/VENTRICLES: There is no acute intracranial hemorrhage, mass effect or midline shift. No abnormal extra-axial fluid collection. The mckoy-white differentiation is maintained without evidence of an acute infarct. There is no evidence of hydrocephalus. Redemonstration of age-appropriate atrophy. ORBITS: The visualized portion of the orbits demonstrate no acute abnormality. SINUSES: The visualized paranasal sinuses and mastoid air cells demonstrate no acute abnormality. SOFT TISSUES/SKULL: No acute abnormality of the visualized skull or soft tissues. IMPRESSION: No acute intracranial abnormality. Redemonstration of age-appropriate atrophy. [employer] Work Phone: CT HEAD WO CONTRASTOrdered B y: Mis Baker on 11-19-2022 [facility] [employer] Work Phone: Comprehensive Metabolic Pane l w/ Reflex to MGon 11-19-2022 Albumin [Mass/Vol] 2.9 g/dL Low 3.5 - 5.2 g/dL [facility] Albumin/Globulin [Mass ratio] 0.8 {ratio} Low 1.0 - 2.5 [facility] ALP [Catalytic activity/Vol] 101 U/L 35 - 104 U/L [facility] [employer] ALT [Catalytic activity/Vol] 9 U/L 5 - 33 U/L [facility] Anion gap [Moles/Vol] 11 mmol/L 9 - 17 mmol/L [facility] [facility] AST [Catalytic activity/Vol] 18 U/L NINF - 32 U/L [facility] Bilirubin [Mass/Vol] 0.3 mg/dL 0.3 - 1 .2 mg/dL [facility] [employer] Calcium [Mass/Vol] 9.0 mg/dL 8.6 - 10. 4 mg/dL [facility] [employer] Chloride [Moles/Vol] 104 mmol/L 98 - 10 7 mmol/L [facility] CO2 [Moles/Vol] 17 mmol/L Low 20 - 31 mmol/L [facility] Creatinine [Mass/Vol] 3.09 mg/dL High 0.50 - 0.90 mg/dL [facility] [employer] [facility] GFR/1.73 sq M.predicted MDRD (S/P/Bld) [Vol rate/Area] 16 mL/min/{1.73_m2} Low - PINF [facility] Comment on above: These results are not intended for use in patients <18 years of age. eGFR results are calculated without a race factor using the 2020 CKD-EPI equation. Careful clinical correlation is recommended, particularly when comparing to results calculated using previous equations. The CKD-EPI equation is less accurate in patients with extremes of muscle mass, extra-renal metabolism of creatine, excessive creatine ingestion, or following therapy that affects renal tubular secretion. Glucose [Mass/Vol] 130 mg/dL High 70 - 99 mg/dL [facility] Interpretation and review of laboratory results Abnormal [facility] Potassium [Moles/Vol] 4.9 mmol/L 3.7 - 5.3 mmol/L [facility] Protein [Mass/Vol] 6.7 g/dL 6.4 - 8.3 g/dL [facility] Sodium [Moles/Vol] 132 mmol/L Low 135 - 144 mmol/L [facility] Urea nitrogen [Mass/Vol] 79 mg/dL High 8 - 23 mg/dL [facility] Urea nitrogen/Creatinine (Bld) [Mass ratio] 26 High 9 - 20 [facility] EKG Rhythm Stripon 3 [facility] LAB [facility] LAB [facility] LAB [facility] Glucose, Whole Bloodon 11-19 Glucose [Mass/Vol] 231 mg/dL High 74 - 100 mg/dL [facility] Interpretation and review of laboratory results Abnormal [facility] Glucose [Mass/Vol] 163 mg/dL High 74 - 100 mg/dL [facility] Interpretation and review of laboratory results Abnormal [facility] Glucose [Mass/Vol] 173 mg/dL High 74 - 100 mg/dL [facility] Interpretation and review of laboratory results Abnormal [facility] Glucose [Mass/Vol] 128 mg/dL High 74 - 100 mg/dL [facility] Interpretation and review of laboratory results Abnormal [facility] US RENAL COMPLETEon 11-20-19 Unremarkable ultrasound of the kidneys. Unremarkable appearance urinary bladder with postvoid residual [address] [facility] EXAMINATION: RETROPERITONEAL ULTRASOUND OF THE KIDNEYS AND URINARY BLADDER 11/19/2022 COMPARISON: None HISTORY: ORDERING SYSTEM PROVIDED HISTORY: SUAD TECHNOLOGIST PROVIDED HISTORY: SUAD FINDINGS: Kidneys: The right kidney measures 11.1 cm in length and the left kidney measures 10.8 cm in length. Kidneys demonstrate normal cortical echogenicity. No evidence of hydronephrosis or intrarenal stones. Bladder: Unremarkable appearance of the bladder. 54 mL postvoid residual volume. Bilateral ureteral jets demonstrated. [facility] RIS [facility] Aniceto Coronel DO - 11/19/2022 EXAMINATION: RETROPERITONEAL ULTRASOUND OF THE KIDNEYS AND URINARY BLADDER 11/19/2022 COMPARISON: None HISTORY: ORDERING SYSTEM PROVIDED HISTORY: SUAD TECHNOLOGIST PROVIDED HISTORY: SUAD FINDINGS: Kidneys: The right kidney measures 11.1 cm in length and the left kidney measures 10.8 cm in length. Kidneys demonstrate normal cortical echogenicity. No evidence of hydronephrosis or intrarenal stones. Bladder: Unremarkable appearance of the bladder. 54 mL postvoid residual volume. Bilateral ureteral jets demonstrated. IMPRESSION: Unremarkable ultrasound of the kidneys. Unremarkable appearance urinary bladder with postvoid residual 54 mL. [facility] [employer] Work Phone: Radiology Study observation (narrative) [facility] Work Phone: RENAL COMPLETEOrdered By: Aniceto Coronel on 11-19-2022 [facility] Work Phone: Ammoniaon 11-18-2022 Ammonia (P) [Moles/Vol] 24 umol/L 11 - 41 umol/L [facility] BMPon 11-18-2022 Anion gap [Moles/Vol] 15 mmol/L 9 - 17 mmol/L [facility] Calcium [Mass/Vol] 9.7 mg/dL 8.6 - 10. 4 mg/dL [facility] Chloride [Moles/Vol] 93 mmol/L Low 98 - 10 7 mmol/L [facility] CO2 [Moles/Vol] 21 mmol/L 20 - 31 mmol/L [facility] Creatinine [Mass/Vol] 4.23 mg/dL High 0.50 - 0.90 mg/dL [facility] GFR/1.73 sq M.predicted MDRD (S/P/Bld) [Vol rate/Area] 11 mL/min/{1.73_m2} Low - PINF [facility] Comment on above: These results are not intended for use in patients <18 years of age. eGFR results are calculated without a race factor using the 2020 CKD-EPI equation. Careful clinical correlation is recommended, particularly when comparing to results calculated using previous equations. The CKD-EPI equation is less accurate in patients with extremes of muscle mass, extra-renal metabolism of creatine, excessive creatine ingestion, or following therapy that affects renal tubular secretion. Glucose [Mass/Vol] 162 mg/dL High 70 - 99 mg/dL [facility] Potassium [Moles/Vol] 5.3 mmol/L 3.7 - 5.3 mmol/L [facility] Sodium [Moles/Vol] 129 mmol/L Low 135 - 144 mmol/L [facility] Urea nitrogen [Mass/Vol] 93 mg/dL High 8 - 23 mg/dL [facility] Urea nitrogen/Creatinine (Bld) [Mass ratio] 22 High 9 - 20 [facility] Blood gas, venouson 11-19-19 23 HCO3 (Bld) [Moles/Vol] 22.3 mmol/L Low 24.0 - 30.0 mmol/L [facility] Interpretation and review of laboratory results Abnormal [facility] Negative Base Excess, Adrian 4.5 mmol/L High 0.0 - 2.0 mmol/L [facility] Oxygen saturation in Blood 43.0 % Low 60.0 - 85.0 % [facility] pCO2, Adrian 47.6 [facility] pH, Adrian 7.289 Low 7.32 - 7.42 [facility] pO2, Adrian 26.9 Low [facility] CBC with Auto Differentialon 11-18-2022 Absolute Eos # 0.10 [facility] Absolute Immature Granulocyte [facility] Absolute Lymph # 2.14 [place] [facility] [facility] Absolute Sullivan # 0.55 [place] [facility] Basophils Absolute [facility] [facility] Basophils/100 WBC (Bld) 0 % 0 - 2 % [facility] Eosinophils/100 WBC (Bld) 1 % 1 - 4 % [facility] Hematocrit (Bld) [Volume fraction] 40.1 % 36.3 - 47.1 % [facility] Hemoglobin (Bld) [Mass/Vol] 13.1 g/dL 11.9 - 15.1 g/dL [facility] Immature granulocytes/100 WBC (Bld) 0 % 0 [facility] Interpretation and review of laboratory results Abnormal [facility] Lymphocytes/100 WBC (Bld) 27 % 24 - 43 % [facility] MCH (RBC) [Entitic mass] 29.2 pg 25. 2 - 33.5 pg [facility] MCHC (RBC) [Mass/Vol] 32.7 g/dL 28.4 - 34.8 g/dL [facility] MCV (RBC) [Entitic vol] 89.5 fL 82.6 - 102.9 fL [facility] Monocytes/100 WBC (Bld) 7 % 3 - 12 % [facility] NRBC Automated 0.0 0.0 per 100 WBC [facility] Platelet distribution width (Bld) [Ratio] 17.1 % High 11.8 - 14.4 % [facility] Platelet mean volume (Bld) [Entitic vol] 9.9 fL 8.1 - 13.5 fL [facility] Platelets (Bld) [#/Vol] 169 10*3/uL [facility] RBC (Bld) [#/Vol] 4.48 10*6/uL 3.95 - 5.1 1 m/uL [facility] Segmented neutrophils/100 WBC (Bld) 65 % 36 - 65 % [facility] Segs Absolute 5.05 [facility] WBC (Bld) [#/Vol] 7.9 10*3/uL [facility] CT HEAD WO CONTRASTon 2022 Radiology Study observation (narrative) [facility] Work Phone: Glucose, Whole Bloodon 11-18 Glucose [Mass/Vol] 165 mg/dL High 74 - 100 mg/dL [facility] Interpretation and review of laboratory results Abnormal [facility] Hepatic Function Panelon Albumin [Mass/Vol] 3.7 g/dL 3.5 - 5.2 g/dL [facility] Albumin/Globulin [Mass ratio] 0.8 {ratio} Low 1.0 - 2.5 [facility] ALP [Catalytic activity/Vol] 131 U/L High 35 - 104 U/L [facility] ALT [Catalytic activity/Vol] 12 U/L 5 - 33 U/L [facility] AST [Catalytic activity/Vol] 22 U/L NINF - 32 U/L [facility] Bilirubin [Mass/Vol] 0.5 mg/dL 0.3 - 1 .2 mg/dL [facility] Bilirubin.direct [Mass/Vol] 0.2 mg/dL NINF - 0.3 mg/dL [facility] Bilirubin.indirect [Mass/Vol] 0.3 mg/dL 0.0 - 1.0 mg/dL [facility] Protein [Mass/Vol] 8.3 g/dL 6.4 - 8.3 g/dL [facility] Microscopic Urinalysison Bacteria, UA 4+ Abnormal None [facility] Epithelial Cells UA 0 TO 2 [facility] Interpretation and review of laboratory results Abnormal [facility] RBC clumps Auto (Urine sed) [#/Area] 0 TO 2 [facility] WBC, UA 50 TO 100 [facility] No Panel Informationon 11-18 Interpretation and review of laboratory results Abnormal [facility] TSHon 11-18-2022 TSH Qn 1.80 m[IU]/L [facility] Urinalysison 11-18-2022 Bilirubin Urine Negative NEGATIVE [facility] Color, UA Yellow Yellow [facility] Glucose Auto test strip (U) [Mass/Vol] Negative NEGATIVE [facility] Interpretation and review of laboratory results Abnormal [facility] Ketones (U) [Mass/Vol] Negative NEGATIVE [facility] Leukocyte esterase Auto test strip Ql (U) MODERATE Abnormal NEGATIVE [facility] Nitrite Auto test strip Ql (U) Positive Abnormal NEGATIVE [facility] Protein (U) [Mass/Vol] 5.5 mg/dL 5.0 - 9.0 [facility] Protein (U) [Mass/Vol] Negative NEGATIVE [facility] Specific Clay, UA 1.015 1.010 - 1.020 [facility] Turbidity UA Cloudy Abnormal Clear [facility] Urine Hgb TRACE Abnormal NEGATIVE [facility] Urobilinogen, Urine Normal Normal [facility] CBCon 11-14-2022 Hematocrit (Bld) [Volume fraction] 39.2 % 36.3 - 47.1 % [facility] Hemoglobin (Bld) [Mass/Vol] 12.7 g/dL 11.9 - 15.1 g/dL [facility] Interpretation and review of laboratory results Abnormal [facility] MCH (RBC) [Entitic mass] 29.0 pg 25. 2 - 33.5 pg [facility] MCHC (RBC) [Mass/Vol] 32.4 g/dL 28.4 - 34.8 g/dL [facility] MCV (RBC) [Entitic vol] 89.5 fL 82.6 - 102.9 fL [facility] NRBC Automated 0.0 0.0 per 100 WBC [facility] Platelet distribution width (Bld) [Ratio] 16.8 % High 11.8 - 14.4 % [facility] Platelet mean volume (Bld) [Entitic vol] 10.6 fL 8.1 - 13.5 fL [facility] Platelets (Bld) [#/Vol] 157 10*3/uL [facility] RBC (Bld) [#/Vol] 4.38 10*6/uL 3.95 - 5.1 1 m/uL [facility] WBC (Bld) [#/Vol] 8.1 10*3/uL [facility] Hepatic Function Panelon Albumin [Mass/Vol] 3.6 g/dL 3.5 - 5.2 g/dL [facility] Albumin/Globulin [Mass ratio] 0.8 {ratio} Low 1.0 - 2.5 [facility] ALP [Catalytic activity/Vol] 124 U/L High 35 - 104 U/L [facility] ALT [Catalytic activity/Vol] 13 U/L 5 - 33 U/L [facility] AST [Catalytic activity/Vol] 22 U/L NINF - 32 U/L [facility] Bilirubin [Mass/Vol] 0.4 mg/dL 0.3 - 1 .2 mg/dL [facility] Bilirubin.direct [Mass/Vol] mg/dL NINF - 0.3 mg/dL [facility] Bilirubin.indirect [Mass/Vol] Can not be calculated 0.0 - 1.0 mg/dL [facility] Interpretation and review of laboratory results Abnormal [facility] Protein [Mass/Vol] 8.0 g/dL 6.4 - 8.3 g/dL [facility] Comprehensive Metabolic Pane l with Bilirubinon 11-11-2022 Albumin [Mass/Vol] 3.5 g/dL 3.5 - 5.2 g/dL [facility] Albumin/Globulin [Mass ratio] 0.8 {ratio} Low 1.0 - 2.5 [facility] ALP [Catalytic activity/Vol] 122 U/L High 35 - 104 U/L [facility] ALT [Catalytic activity/Vol] 11 U/L 5 - 33 U/L [facility] Anion gap [Moles/Vol] 17 mmol/L 9 - 17 mmol/L [facility] AST [Catalytic activity/Vol] 21 U/L NINF - 32 U/L [facility] Bilirubin [Mass/Vol] 0.5 mg/dL 0.3 - 1 .2 mg/dL [facility] Bilirubin.direct [Mass/Vol] 0.2 mg/dL NINF - 0.3 mg/dL [facility] Bilirubin.indirect [Mass/Vol] 0.3 mg/dL 0.0 - 1.0 mg/dL [facility] Calcium [Mass/Vol] 10.0 mg/dL 8.6 - 10. 4 mg/dL [facility] Chloride [Moles/Vol] 94 mmol/L Low 98 - 10 7 mmol/L [facility] CO2 [Moles/Vol] 20 mmol/L 20 - 31 mmol/L [facility] Creatinine [Mass/Vol] 3.8 mg/dL High 0.50 - 0.90 mg/dL [facility] GFR/1.73 sq M.predicted MDRD (S/P/Bld) [Vol rate/Area] 12 mL/min/{1.73_m2} Low - PINF [facility] Comment on above: These results are not intended for use in patients <18 years of age. eGFR results are calculated without a race factor using the 2020 CKD-EPI equation. Careful clinical correlation is recommended, particularly when comparing to results calculated using previous equations. The CKD-EPI equation is less accurate in patients with extremes of muscle mass, extra-renal metabolism of creatine, excessive creatine ingestion, or following therapy that affects renal tubular secretion. Glucose [Mass/Vol] 79 mg/dL 70 - 99 mg/dL [facility] Interpretation and review of laboratory results Abnormal [facility] Potassium [Moles/Vol] 5.3 mmol/L 3.7 - 5.3 mmol/L [facility] Protein [Mass/Vol] 8.0 g/dL 6.4 - 8.3 g/dL [facility] Sodium [Moles/Vol] 131 mmol/L Low 135 - 144 mmol/L [facility] Urea nitrogen [Mass/Vol] 85 mg/dL High 8 - 23 mg/dL [facility] Comprehensive Metabolic Pane roger 11-05-2022 Albumin [Mass/Vol] 3.6 g/dL 3.5 - 5.2 g/dL [facility] Albumin/Globulin [Mass ratio] 0.9 {ratio} Low 1.0 - 2.5 [facility] ALP [Catalytic activity/Vol] 156 U/L High 35 - 104 U/L [facility] ALT [Catalytic activity/Vol] 24 U/L 5 - 33 U/L [facility] Anion gap [Moles/Vol] 16 mmol/L 9 - 17 mmol/L [facility] AST [Catalytic activity/Vol] 41 U/L High NINF - 32 U/L [facility] Bilirubin [Mass/Vol] 0.4 mg/dL 0.3 - 1 .2 mg/dL [facility] Calcium [Mass/Vol] 9.5 mg/dL 8.6 - 10. 4 mg/dL [facility] Chloride [Moles/Vol] 98 mmol/L 98 - 10 7 mmol/L [facility] CO2 [Moles/Vol] 20 mmol/L 20 - 31 mmol/L [facility] Creatinine [Mass/Vol] 2.32 mg/dL High 0.50 - 0.90 mg/dL [facility] GFR/1.73 sq M.predicted MDRD (S/P/Bld) [Vol rate/Area] 22 mL/min/{1.73_m2} Low - PINF [facility] Comment on above: These results are not intended for use in patients <18 years of age. eGFR results are calculated without a race factor using the 2020 CKD-EPI equation. Careful clinical correlation is recommended, particularly when comparing to results calculated using previous equations. The CKD-EPI equation is less accurate in patients with extremes of muscle mass, extra-renal metabolism of creatine, excessive creatine ingestion, or following therapy that affects renal tubular secretion. Glucose [Mass/Vol] 125 mg/dL High 70 - 99 mg/dL [facility] Interpretation and review of laboratory results Abnormal [facility] Potassium [Moles/Vol] 5.5 mmol/L High 3.7 - 5.3 mmol/L [facility] Protein [Mass/Vol] 7.8 g/dL 6.4 - 8.3 g/dL [facility] Sodium [Moles/Vol] 134 mmol/L Low 135 - 144 mmol/L [facility] Urea nitrogen [Mass/Vol] 55 mg/dL High 8 - 23 mg/dL [facility] Urea nitrogen/Creatinine (Bld) [Mass ratio] 24 High 9 - 20 [facility] Hemoglobin A1Con 11-05-2022 Average glucose Estimated from glycated hemoglobin (Bld) [Mass/Vol] 154 mg/dL [facility] Comment on above: The ADA and AACC rec ommend providing the estimated average glucose result to permit better patient understanding of their HBA1c result. HbA1c (Bld) [Mass fraction] 7.0 % High 4.0 - 6.0 % [facility] Interpretation and review of laboratory results Abnormal [facility] Lipid Panelon 11-05-2022 Cholesterol [Mass/Vol] 120 mg/dL NINF - 200 mg/dL [facility] Comment on above: Cholesterol Guidelines: <200 Desirable 200-240 Borderline >240 Undesirable Cholesterol in HDL [Mass/Vol] 27 mg/dL Low 40 - PINF mg/dL [facility] Comment on above: HDL Guidelines: <40 Undesirable 40-59 Borderline >59 Desirable Cholesterol in LDL [Mass/Vol] 57 mg/dL 0 - 130 mg/dL [facility] Comment on above: LDL Guidelines: <100 Desirable 100-129 Near to/above Desirable 130-159 Borderline >159 Undesirable Direct (measured) LDL and calculated LDL are not interchangeable tests. Cholesterol.total/Choles terol in HDL [Mass ratio] 4.4 {ratio} NINF - 5 [facility] Interpretation and review of laboratory results Abnormal [facility] Triglyceride [Mass/Vol] 179 mg/dL High NINF - 150 mg/dL [facility] Comment on above: Triglyceride Guidelines: <150 Desirable 150-199 Borderline 200-499 High >499 Very high Based on AHA Guidelines for fasting triglyceride, May 2012. [facility] POC Glucose Fingerstickon Glucose [Mass/Vol] 134 mg/dL High 65 - 105 mg/dL [facility] Interpretation and review of laboratory results Abnormal [facility] Glucose [Mass/Vol] 123 mg/dL High 65 - 105 mg/dL [facility] Interpretation and review of laboratory results Abnormal [facility] Basic Metabolic Panelon 03- Anion gap [Moles/Vol] 8 mmol/L Low 9 - 17 mmol/L [facility] Calcium [Mass/Vol] 9.0 mg/dL 8.6 - 10. 4 mg/dL [facility] Chloride [Moles/Vol] 98 mmol/L 98 - 10 7 mmol/L [facility] CO2 [Moles/Vol] 25 mmol/L 20 - 31 mmol/L [facility] Creatinine [Mass/Vol] 1.14 mg/dL High 0.50 - 0.90 mg/dL [facility] GFR/1.73 sq M.predicted MDRD (S/P/Bld) [Vol rate/Area] 52 mL/min/{1.73_m2} Low - PINF [facility] Comment on above: These results are not intended for use in patients <18 years of age. eGFR results are calculated without a race factor using the 2020 CKD-EPI equation. Careful clinical correlation is recommended, particularly when comparing to results calculated using previous equations. The CKD-EPI equation is less accurate in patients with extremes of muscle mass, extra-renal metabolism of creatine, excessive creatine ingestion, or following therapy that affects renal tubular secretion. Glucose [Mass/Vol] 122 mg/dL High 70 - 99 mg/dL [facility] Interpretation and review of laboratory results Abnormal [facility] Potassium [Moles/Vol] 5.2 mmol/L 3.7 - 5.3 mmol/L [facility] Sodium [Moles/Vol] 131 mmol/L Low 135 - 144 mmol/L [facility] Urea nitrogen [Mass/Vol] 26 mg/dL High 8 - 23 mg/dL [facility] POC Glucose Fingerstickon Glucose [Mass/Vol] 168 mg/dL High 65 - 105 mg/dL [facility] Interpretation and review of laboratory results Abnormal [facility] Glucose [Mass/Vol] 137 mg/dL High 65 - 105 mg/dL [facility] Interpretation and review of laboratory results Abnormal [facility] Glucose [Mass/Vol] 127 mg/dL High 65 - 105 mg/dL [facility] Interpretation and review of laboratory results Abnormal [facility] Glucose [Mass/Vol] 122 mg/dL High 65 - 105 mg/dL [facility] Interpretation and review of laboratory results Abnormal [facility] Sodiumon 10-16-2022 Sodium [Moles/Vol] 136 mmol/L 135 - 144 mmol/L [facility] POC Glucose Fingerstickon Glucose [Mass/Vol] 169 mg/dL High 65 - 105 mg/dL [facility] Interpretation and review of laboratory results Abnormal [facility] Glucose [Mass/Vol] 152 mg/dL High 65 - 105 mg/dL [facility] Interpretation and review of laboratory results Abnormal [facility] Glucose [Mass/Vol] 203 mg/dL High 65 - 105 mg/dL [facility] Interpretation and review of laboratory results Abnormal [facility] Glucose [Mass/Vol] 124 mg/dL High 65 - 105 mg/dL [facility] Interpretation and review of laboratory results Abnormal [facility] Basic Metabolic Panelon 09-18 Anion gap [Moles/Vol] 13 mmol/L 9 - 17 mmol/L [facility] Calcium [Mass/Vol] 9.2 mg/dL 8.6 - 10. 4 mg/dL [facility] Chloride [Moles/Vol] 99 mmol/L 98 - 10 7 mmol/L [facility] CO2 [Moles/Vol] 23 mmol/L 20 - 31 mmol/L [facility] Creatinine [Mass/Vol] 1.16 mg/dL High 0.50 - 0.90 mg/dL [facility] GFR/1.73 sq M.predicted MDRD (S/P/Bld) [Vol rate/Area] 51 mL/min/{1.73_m2} Low - PINF [facility] Comment on above: These results are not intended for use in patients <18 years of age. eGFR results are calculated without a race factor using the 2020 CKD-EPI equation. Careful clinical correlation is recommended, particularly when comparing to results calculated using previous equations. The CKD-EPI equation is less accurate in patients with extremes of muscle mass, extra-renal metabolism of creatine, excessive creatine ingestion, or following therapy that affects renal tubular secretion. Glucose [Mass/Vol] 109 mg/dL High 70 - 99 mg/dL [facility] Interpretation and review of laboratory results Abnormal [facility] Potassium [Moles/Vol] 4.9 mmol/L 3.7 - 5.3 mmol/L [facility] Sodium [Moles/Vol] 135 mmol/L 135 - 144 mmol/L [facility] Urea nitrogen [Mass/Vol] 23 mg/dL 8 - 23 mg/dL [facility] CBC with Auto Differentialon 10-14-2022 Absolute Eos # 0.09 [place] [facility] Absolute Immature Granulocyte [facility] Absolute Lymph # 1.76 [facility] Absolute Sullivan # 0.47 [facility] RS [facility] Basophils Absolute [place] [facility] Basophils/100 WBC (Bld) 0 % 0 - 2 % B [facility] Eosinophils/100 WBC (Bld) 2 % 1 - 4 % [facility] Hematocrit (Bld) [Volume fraction] 34.5 % Low 36.3 - 47.1 % [facility] Hemoglobin (Bld) [Mass/Vol] 10.5 g/dL Low 11.9 - 15.1 g/dL [facility] Immature granulocytes/100 WBC (Bld) 0 % 0 [facility] Interpretation and review of laboratory results Abnormal [facility] Lymphocytes/100 WBC (Bld) 36 % 24 - 43 % [facility] MCH (RBC) [Entitic mass] 28.9 pg 25. 2 - 33.5 pg [facility] MCHC (RBC) [Mass/Vol] 30.4 g/dL 28.4 - 34.8 g/dL [facility] MCV (RBC) [Entitic vol] 95.0 fL 82.6 - 102.9 fL [facility] Monocytes/100 WBC (Bld) 10 % 3 - 12 % B ON [facility] NRBC Automated 0.0 0.0 per 100 WBC [facility] Platelet distribution width (Bld) [Ratio] 18.0 % High 11.8 - 14.4 % [facility] Platelet mean volume (Bld) [Entitic vol] 10.3 fL 8.1 - 13.5 fL [facility] Platelets (Bld) [#/Vol] 138 10*3/uL [facility] RBC (Bld) [#/Vol] 3.63 10*6/uL Low 3.95 - 5.1 1 m/uL [facility] RBC (Bld) [#/Vol] ANISOCYTOSIS PRESENT [facility] Segmented neutrophils/100 WBC (Bld) 52 % 36 - 65 % [facility] Segs Absolute 2.54 [facility] WBC (Bld) [#/Vol] 4.9 10*3/uL [facility] Hepatic Function Panelon Albumin [Mass/Vol] 3.1 g/dL Low 3.5 - 5.2 g/dL [facility] Albumin/Globulin [Mass ratio] 0.8 {ratio} Low 1.0 - 2.5 [facility] ALP [Catalytic activity/Vol] 230 U/L High 35 - 104 U/L [facility] ALT [Catalytic activity/Vol] 52 U/L High 5 - 33 U/L [facility] AST [Catalytic activity/Vol] 78 U/L High NINF - 32 U/L [facility] Bilirubin [Mass/Vol] 0.6 mg/dL 0.3 - 1 .2 mg/dL [facility] Bilirubin.direct [Mass/Vol] 0.2 mg/dL NINF - 0.3 mg/dL [facility] Bilirubin.indirect [Mass/Vol] 0.4 mg/dL 0.0 - 1.0 mg/dL [facility] Interpretation and review of laboratory results Abnormal [facility] Protein [Mass/Vol] 7.2 g/dL 6.4 - 8.3 g/dL [facility] Glucose Fingerstickon Glucose [Mass/Vol] 203 mg/dL High 65 - 105 mg/dL [facility] Interpretation and review of laboratory results Abnormal [facility] Glucose [Mass/Vol] 103 mg/dL 65 - 105 mg/dL [facility] Glucose [Mass/Vol] 232 mg/dL High 65 - 105 mg/dL [facility] Interpretation and review of laboratory results Abnormal [facility] Glucose [Mass/Vol] 109 mg/dL High 65 - 105 mg/dL [facility] Interpretation and review of laboratory results Abnormal [facility] Glucose Fingerstickon Glucose [Mass/Vol] 258 mg/dL High 65 - 105 mg/dL [facility] Interpretation and review of laboratory results Abnormal [facility] Glucose [Mass/Vol] 136 mg/dL High 65 - 105 mg/dL [facility] Interpretation and review of laboratory results Abnormal [facility] Glucose [Mass/Vol] 197 mg/dL High 65 - 105 mg/dL [facility] Interpretation and review of laboratory results Abnormal [facility] Glucose [Mass/Vol] 146 mg/dL High 65 - 105 mg/dL [facility] Interpretation and review of laboratory results Abnormal [facility] Glucose Fingerstickon Glucose [Mass/Vol] 267 mg/dL High 65 - 105 mg/dL [facility] Interpretation and review of laboratory results Abnormal [facility] Glucose [Mass/Vol] 104 mg/dL 65 - 105 mg/dL [facility] Glucose [Mass/Vol] 198 mg/dL High 65 - 105 mg/dL [facility] Interpretation and review of laboratory results Abnormal [facility] Glucose [Mass/Vol] 132 mg/dL High 65 - 105 mg/dL [facility] Interpretation and review of laboratory results Abnormal [facility] POC Glucose Fingerstickon Glucose [Mass/Vol] 218 mg/dL High 65 - 105 mg/dL [facility] Interpretation and review of laboratory results Abnormal [facility] Glucose [Mass/Vol] 180 mg/dL High 65 - 105 mg/dL [facility] Interpretation and review of laboratory results Abnormal [facility] Glucose [Mass/Vol] 166 mg/dL High 65 - 105 mg/dL [facility] Interpretation and review of laboratory results Abnormal [facility] Glucose [Mass/Vol] 124 mg/dL High 65 - 105 mg/dL [facility] Interpretation and review of laboratory results Abnormal [facility] Glucose Fingerstickon Glucose [Mass/Vol] 211 mg/dL High 65 - 105 mg/dL [facility] Interpretation and review of laboratory results Abnormal [facility] Glucose [Mass/Vol] 127 mg/dL High 65 - 105 mg/dL [facility] Interpretation and review of laboratory results Abnormal [facility] Glucose [Mass/Vol] 237 mg/dL High 65 - 105 mg/dL [facility] Interpretation and review of laboratory results Abnormal [facility] Glucose [Mass/Vol] 142 mg/dL High 65 - 105 mg/dL [facility] Interpretation and review of laboratory results Abnormal [facility] Ammoniaon 10-09-2022 Ammonia (P) [Moles/Vol] 44 umol/L 11 - 51 umol/L [facility] Basic Metabolic Panel w/ Ref myles to MGon 10-09-2022 Anion gap [Moles/Vol] 8 mmol/L Low 9 - 17 mmol/L [facility] Calcium [Mass/Vol] 8.7 mg/dL 8.6 - 10. 4 mg/dL [facility] Chloride [Moles/Vol] 97 mmol/L Low 98 - 10 7 mmol/L [facility] CO2 [Moles/Vol] 30 mmol/L 20 - 31 mmol/L [facility] Creatinine [Mass/Vol] 1.06 mg/dL High 0.50 - 0.90 mg/dL [facility] GFR/1.73 sq M.predicted MDRD (S/P/Bld) [Vol rate/Area] 57 mL/min/{1.73_m2} Low - PINF [facility] Comment on above: These results are not intended for use in patients <18 years of age. eGFR results are calculated without a race factor using the 2020 CKD-EPI equation. Careful clinical correlation is recommended, particularly when comparing to results calculated using previous equations. The CKD-EPI equation is less accurate in patients with extremes of muscle mass, extra-renal metabolism of creatine, excessive creatine ingestion, or following therapy that affects renal tubular secretion. Glucose [Mass/Vol] 137 mg/dL High 70 - 99 mg/dL [facility] Interpretation and review of laboratory results Abnormal [facility] Potassium [Moles/Vol] 4.5 mmol/L 3.7 - 5.3 mmol/L [facility] Sodium [Moles/Vol] 135 mmol/L 135 - 144 mmol/L [facility] [facility] Urea nitrogen [Mass/Vol] 19 mg/dL 8 - 23 mg/dL [facility] POC Glucose Fingerstickon Glucose [Mass/Vol] 178 mg/dL High 65 - 105 mg/dL [facility] Interpretation and review of laboratory results Abnormal [facility] Glucose [Mass/Vol] 155 mg/dL High 65 - 105 mg/dL [facility] Interpretation and review of laboratory results Abnormal [facility] Glucose [Mass/Vol] 150 mg/dL High 65 - 105 mg/dL [facility] Interpretation and review of laboratory results Abnormal [facility] Glucose [Mass/Vol] 147 mg/dL High 65 - 105 mg/dL [facility] Interpretation and review of laboratory results Abnormal [facility] Glucose [Mass/Vol] 144 mg/dL High 65 - 105 mg/dL [facility] Interpretation and review of laboratory results Abnormal [facility] Glucose [Mass/Vol] 156 mg/dL High 65 - 105 mg/dL [facility] Interpretation and review of laboratory results Abnormal [facility] Basic Metabolic Panel w/ Ref myles to MGon 10-08-2022 Anion gap [Moles/Vol] 11 mmol/L 9 - 17 mmol/L [facility] Calcium [Mass/Vol] 8.4 mg/dL Low 8.6 - 10. 4 mg/dL [facility] Chloride [Moles/Vol] 99 mmol/L 98 - 10 7 mmol/L [facility] CO2 [Moles/Vol] 27 mmol/L 20 - 31 mmol/L [facility] Creatinine [Mass/Vol] 1.16 mg/dL High 0.50 - 0.90 mg/dL [facility] GFR/1.73 sq M.predicted MDRD (S/P/Bld) [Vol rate/Area] 51 mL/min/{1.73_m2} Low - PINF [facility] Comment on above: These results are not intended for use in patients <18 years of age. eGFR results are calculated without a race factor using the 2020 CKD-EPI equation. Careful clinical correlation is recommended, particularly when comparing to results calculated using previous equations. The CKD-EPI equation is less accurate in patients with extremes of muscle mass, extra-renal metabolism of creatine, excessive creatine ingestion, or following therapy that affects renal tubular secretion. Glucose [Mass/Vol] 127 mg/dL High 70 - 99 mg/dL [facility] Interpretation and review of laboratory results Abnormal [facility] Potassium [Moles/Vol] 4.2 mmol/L 3.7 - 5.3 mmol/L [facility] Sodium [Moles/Vol] 137 mmol/L 135 - 144 mmol/L [facility] Urea nitrogen [Mass/Vol] 20 mg/dL 8 - 23 mg/dL [facility] CBC with Auto Differentialon 10-08-2022 Absolute Eos # 0.07 [facility] Absolute Immature Granulocyte [facility] Absolute Lymph # 1.45 [place] [facility] Absolute Sullivan # 0.29 [facility] Basophils Absolute [place] [facility] Basophils/100 WBC (Bld) 1 % 0 - 2 % [facility] Eosinophils/100 WBC (Bld) 2 % 1 - 4 % [facility] Hematocrit (Bld) [Volume fraction] 28.7 % Low 36.3 - 47.1 % [facility] Hemoglobin (Bld) [Mass/Vol] 9.0 g/dL Low 11.9 - 15.1 g/dL [facility] Immature granulocytes/100 WBC (Bld) 0 % 0 [facility] Interpretation and review of laboratory results Abnormal [facility] Lymphocytes/100 WBC (Bld) 33 % 24 - 43 % [facility] MCH (RBC) [Entitic mass] 28.6 pg 25. 2 - 33.5 pg [facility] MCHC (RBC) [Mass/Vol] 31.4 g/dL 28.4 - 34.8 g/dL [facility] MCV (RBC) [Entitic vol] 91.1 fL 82.6 - 102.9 fL [facility] Monocytes/100 WBC (Bld) 7 % 3 - 12 % B ON [facility] NRBC Automated 0.0 0.0 per 100 WBC [facility] Platelet distribution width (Bld) [Ratio] 18.4 % High 11.8 - 14.4 % [facility] Platelet mean volume (Bld) [Entitic vol] 10.1 fL 8.1 - 13.5 fL [facility] Platelets (Bld) [#/Vol] 88 10*3/uL Low B ON [facility] RBC (Bld) [#/Vol] 3.15 10*6/uL Low 3.95 - 5.1 1 m/uL [facility] RBC (Bld) [#/Vol] ANISOCYTOSIS PRESENT [facility] Segmented neutrophils/100 WBC (Bld) 57 % 36 - 65 % [facility] Segs Absolute 2.57 [facility] WBC (Bld) [#/Vol] 4.4 10*3/uL [facility] Hemoglobin A1Con 10-08-2022 Average glucose Estimated from glycated hemoglobin (Bld) [Mass/Vol] 163 mg/dL [facility] Comment on above: The ADA and AACC rec ommend providing the estimated average glucose result to permit better patient understanding of their HBA1c result. HbA1c (Bld) [Mass fraction] 7.3 % High 4.0 - 6.0 % [facility] Interpretation and review of laboratory results Abnormal [facility] Hemoglobin and Hematocriton 10-08-2022 Hematocrit (Bld) [Volume fraction] 28.6 % Low 36.3 - 47.1 % [facility] Hemoglobin (Bld) [Mass/Vol] 9.0 g/dL Low 11.9 - 15.1 g/dL [facility] Interpretation and review of laboratory results Abnormal [facility] P[facility] Glucose Fingerstickon Glucose [Mass/Vol] 222 mg/dL High 65 - 105 mg/dL [facility] Interpretation and review of laboratory results Abnormal [facility] Glucose [Mass/Vol] 196 mg/dL High 65 - 105 mg/dL [facility] Interpretation and review of laboratory results Abnormal [facility] Glucose [Mass/Vol] 174 mg/dL High 65 - 105 mg/dL [facility] Interpretation and review of laboratory results Abnormal [facility] Glucose [Mass/Vol] 124 mg/dL High 65 - 105 mg/dL [facility] Interpretation and review of laboratory results Abnormal [facility] XR CHEST PORTABLEon 10-08-19 23 No acute cardiopulmonary process. [facility] RIS CONSOLIDATED EXAMINATION: ONE XRAY VIEW OF THE CHEST 10/08/2022 11:19 am COMPARISON: Chest radiograph performed 10/03/2022. HISTORY: ORDERING SYSTEM PROVIDED HISTORY: Desatting TECHNOLOGIST PROVIDED HISTORY: Desatting FINDINGS: There is linear atelectasis in the lower lobes. There is no effusion. There is no pneumothorax. The mediastinal structures are unremarkable. The upper abdomen unremarkable. The extrathoracic soft tissues are unremarkable. [facility] RIS CONSOLIDATED Alex Myers MD - 10/08/2022 EXAMINATION: ONE XRAY VIEW OF THE CHEST 10/08/2022 11:19 am COMPARISON: Chest radiograph performed 10/03/2022. HISTORY: ORDERING SYSTEM PROVIDED HISTORY: Desatting TECHNOLOGIST PROVIDED HISTORY: Desatting FINDINGS: There is linear atelectasis in the lower lobes. There is no effusion. There is no pneumothorax. The mediastinal structures are unremarkable. The upper abdomen unremarkable. The extrathoracic soft tissues are unremarkable. IMPRESSION: No acute cardiopulmonary process. [employer] Work Phone: Radiology Study observation (narrative) [employer] Phone: XR CHEST PORTABLEOrdered By: Alex Myers on 10-08-2022 [employer] Phone: Basic Metabolic Panelon 09-18 Anion gap [Moles/Vol] 13 mmol/L 9 - 17 mmol/L [employer] Calcium [Mass/Vol] 8.9 mg/dL 8.6 - 10. 4 mg/dL [employer] Chloride [Moles/Vol] 91 mmol/L Low 98 - 10 7 mmol/L [employer] CO2 [Moles/Vol] 29 mmol/L 20 - 31 mmol/L [employer] Creatinine [Mass/Vol] 1.37 mg/dL High 0.50 - 0.90 mg/dL [employer] GFR/1.73 sq M.predicted MDRD (S/P/Bld) [Vol rate/Area] 42 mL/min/{1.73_m2} Low - PINF [employer] Comment on above: These results are not intended for use in patients <18 years of age. eGFR results are calculated without a race factor using the 2020 CKD-EPI equation. Careful clinical correlation is recommended, particularly when comparing to results calculated using previous equations. The CKD-EPI equation is less accurate in patients with extremes of muscle mass, extra-renal metabolism of creatine, excessive creatine ingestion, or following therapy that affects renal tubular secretion. Glucose [Mass/Vol] 291 mg/dL High 70 - 99 mg/dL [facility] Interpretation and review of laboratory results Abnormal [facility] Potassium [Moles/Vol] 5.5 mmol/L High 3.7 - 5.3 mmol/L [facility] Sodium [Moles/Vol] 133 mmol/L Low 135 - 144 mmol/L [facility] Urea nitrogen [Mass/Vol] 23 mg/dL 8 - 23 mg/dL [facility] CBC with Auto Differentialon 10-07-2022 Absolute Eos # 0.00 [place] [facility] Absolute Immature Granulocyte 0.00 [facility] Absolute Lymph # 0.40 [facility] Absolute Sullivan # 0.29 [facility] Basophils (Bld) [#/Vol] 0.00 10*3/uL [facility] Basophils/100 WBC (Bld) 0 % 0 - 2 % B ON [facility] Eosinophils/100 WBC (Bld) 0 % Low 1 - 4 % [facility] Hematocrit (Bld) [Volume fraction] 31.1 % Low 36.3 - 47.1 % [facility] Hemoglobin (Bld) [Mass/Vol] 9.6 g/dL Low 11.9 - 15.1 g/dL [facility] Immature granulocytes/100 WBC (Bld) 0 % 0 [facility] Interpretation and review of laboratory results Abnormal [facility] Lymphocytes/100 WBC (Bld) 11 % Low 24 - 44 % [facility] MCH (RBC) [Entitic mass] 28.4 pg 25. 2 - 33.5 pg [facility] MCHC (RBC) [Mass/Vol] 30.9 g/dL 28.4 - 34.8 g/dL [facility] MCV (RBC) [Entitic vol] 92.0 fL 82.6 - 102.9 fL [facility] Monocytes/100 WBC (Bld) 8 % High 1 - 7 % B ON [facility] Morphology Lucio (Bld) [Interp] ANISOCYTOSIS PRESENT [facility] NRBC Automated 0.0 0.0 per 100 WBC [facility] Platelet distribution width (Bld) [Ratio] 17.8 % High 11.8 - 14.4 % [facility] Platelet mean volume (Bld) [Entitic vol] 10.4 fL 8.1 - 13.5 fL [facility] Platelets (Bld) [#/Vol] 86 10*3/uL Low B [facility] RBC (Bld) [#/Vol] 3.38 10*6/uL Low 3.95 - 5.1 1 m/uL [facility] Segmented neutrophils/100 WBC (Bld) 81 % High 36 - 66 % [facility] Segs Absolute 2.91 [facility] WBC (Bld) [#/Vol] 3.6 10*3/uL [facility] POC Glucose Fingerstickon Glucose [Mass/Vol] 293 mg/dL High 65 - 105 mg/dL [facility] Interpretation and review of laboratory results Abnormal [facility] Glucose [Mass/Vol] 406 mg/dL Critically high 65 - 1 05 mg/dL [facility] Comment on above: Critical Noted Interpretation and review of laboratory results Abnormal [facility] Glucose [Mass/Vol] 263 mg/dL High 65 - 105 mg/dL [facility] Interpretation and review of laboratory results Abnormal [facility] Glucose [Mass/Vol] 310 mg/dL High 65 - 105 mg/dL [facility] Interpretation and review of laboratory results Abnormal [facility] Glucose [Mass/Vol] 253 mg/dL High 65 - 105 mg/dL [facility] Interpretation and review of laboratory results Abnormal [facility] Glucose [Mass/Vol] 358 mg/dL High 65 - 105 mg/dL [facility] Interpretation and review of laboratory results Abnormal [facility] Potassiumon 10-07-2022 Potassium [Moles/Vol] 4.5 mmol/L 3.7 - 5.3 mmol/L [facility] XR LUMBAR SPINE (2-3 VIEWS)o n 10-07-2022 Status post interval L3 vertebral plasty without complication identified. [facility] CONSOLIDATED EXAMINATION: XRAY VIEWS OF THE LUMBAR SPINE 10/07/2022 10:18 am COMPARISON: MRI lumbar spine 10/04/2022. CT lumbar spine 10/03/2022. HISTORY: ORDERING SYSTEM PROVIDED HISTORY: post Kyphoplaty. TECHNOLOGIST PROVIDED HISTORY: Standing films if possible. post Kyphoplaty. FINDINGS: Status post interval L3 vertebroplasty. Mild acute compression of the L3 vertebral body is again seen. The remaining vertebral body heights are preserved. Normal alignment is maintained. Moderate L5-S1 degenerative disc disease. The bilateral sacroiliac joints are intact. Atherosclerotic vascular calcifications in the abdominal aorta. [facility] Manish Watkins MD - 10/07/2022 EXAMINATION: XRAY VIEWS OF THE LUMBAR SPINE 10/07/2022 10:18 am COMPARISON: MRI lumbar spine 10/04/2022. CT lumbar spine 10/03/2022. HISTORY: ORDERING SYSTEM PROVIDED HISTORY: post Kyphoplaty. TECHNOLOGIST PROVIDED HISTORY: Standing films if possible. post Kyphoplaty. FINDINGS: Status post interval L3 vertebroplasty. Mild acute compression of the L3 vertebral body is again seen. The remaining vertebral body heights are preserved. Normal alignment is maintained. Moderate L5-S1 degenerative disc disease. The bilateral sacroiliac joints are intact. Atherosclerotic vascular calcifications in the abdominal aorta. IMPRESSION: Status post interval L3 vertebral plasty without complication identified. [facility] [employer] Work Phone: Radiology Study observation (narrative) [employer] Work Phone: XR LUMBAR SPINE (2-3 VIEWS)O rdered By: Manish Watkins on 10-07-2022 [facility] Work Phone: Basic Metabolic Panel w/ Ref myles to MGon 10-06-2022 Anion gap [Moles/Vol] 10 mmol/L 9 - 17 mmol/L [facility] Calcium [Mass/Vol] 8.9 mg/dL 8.6 - 10. 4 mg/dL [facility] Chloride [Moles/Vol] 96 mmol/L Low 98 - 10 7 mmol/L [facility] CO2 [Moles/Vol] 26 mmol/L 20 - 31 mmol/L [facility] Creatinine [Mass/Vol] 1.14 mg/dL High 0.50 - 0.90 mg/dL [facility] GFR/1.73 sq M.predicted MDRD (S/P/Bld) [Vol rate/Area] 52 mL/min/{1.73_m2} Low - PINF [facility] Comment on above: These results are not intended for use in patients <18 years of age. eGFR results are calculated without a race factor using the 2020 CKD-EPI equation. Careful clinical correlation is recommended, particularly when comparing to results calculated using previous equations. The CKD-EPI equation is less accurate in patients with extremes of muscle mass, extra-renal metabolism of creatine, excessive creatine ingestion, or following therapy that affects renal tubular secretion. Glucose [Mass/Vol] 161 mg/dL High 70 - 99 mg/dL [facility] Interpretation and review of laboratory results Abnormal [facility] Potassium [Moles/Vol] 5.0 mmol/L 3.7 - 5.3 mmol/L [facility] Sodium [Moles/Vol] 132 mmol/L Low 135 - 144 mmol/L [facility] Urea nitrogen [Mass/Vol] 17 mg/dL 8 - 23 mg/dL [facility] CBC with Auto Differentialon 10-06-2022 Absolute Eos # 0.08 [place] [facility] Absolute Immature Granulocyte [facility] Absolute Lymph # 1.38 [facility] Absolute Sullivan # 0.40 [facility] RS [facility] Basophils Absolute [place] [facility] Basophils/100 WBC (Bld) 0 % 0 - 2 % B [facility] Eosinophils/100 WBC (Bld) 2 % 1 - 4 % [facility] Hematocrit (Bld) [Volume fraction] 35.1 % Low 36.3 - 47.1 % [facility] Hemoglobin (Bld) [Mass/Vol] 10.2 g/dL Low 11.9 - 15.1 g/dL [facility] Immature granulocytes/100 WBC (Bld) 0 % 0 [facility] Interpretation and review of laboratory results Abnormal [facility] Lymphocytes/100 WBC (Bld) 30 % 24 - 43 % [facility] MCH (RBC) [Entitic mass] 28.7 pg 25. 2 - 33.5 pg [facility] MCHC (RBC) [Mass/Vol] 29.1 g/dL 28.4 - 34.8 g/dL [facility] MCV (RBC) [Entitic vol] 98.9 fL 82.6 - 102.9 fL [facility] Monocytes/100 WBC (Bld) 9 % 3 - 12 % B ON [facility] NRBC Automated 0.0 0.0 per 100 WBC [facility] Platelet distribution width (Bld) [Ratio] 17.4 % High 11.8 - 14.4 % [facility] Platelet mean volume (Bld) [Entitic vol] 10.3 fL 8.1 - 13.5 fL [facility] Platelets (Bld) [#/Vol] 84 10*3/uL Low B [facility] RBC (Bld) [#/Vol] 3.55 10*6/uL Low 3.95 - 5.1 1 m/uL [facility] RBC (Bld) [#/Vol] ANISOCYTOSIS PRESENT [facility] Segmented neutrophils/100 WBC (Bld) 59 % 36 - 65 % [facility] Segs Absolute 2.69 [facility] WBC (Bld) [#/Vol] 4.6 10*3/uL [facility] FLUORO FOR SURGICAL PROCEDUR ESon 10-06-2022 Radiology exam is complete. No Radiologist dictation. Please follow up with ordering provider. PN RIS CONSOLIDATED POC Glucose Fingerstickon Glucose [Mass/Vol] 386 mg/dL High 65 - 105 mg/dL [facility] Interpretation and review of laboratory results Abnormal [facility] Glucose [Mass/Vol] 229 mg/dL High 65 - 105 mg/dL [facility] Interpretation and review of laboratory results Abnormal [facility] Glucose [Mass/Vol] 157 mg/dL High 65 - 105 mg/dL [facility] Interpretation and review of laboratory results Abnormal [facility] Glucose [Mass/Vol] 149 mg/dL High 65 - 105 mg/dL [facility] Interpretation and review of laboratory results Abnormal [facility] Glucose [Mass/Vol] 146 mg/dL High 65 - 105 mg/dL [facility] Interpretation and review of laboratory results Abnormal [facility] Ammoniaon 10-05-2022 Ammonia (P) [Moles/Vol] 37 umol/L 11 - 51 umol/L [facility] Basic Metabolic Panel w/ Ref myles to MGon 10-05-2022 Anion gap [Moles/Vol] 8 mmol/L Low 9 - 17 mmol/L [facility] Calcium [Mass/Vol] 9.1 mg/dL 8.6 - 10. 4 mg/dL [facility] Chloride [Moles/Vol] 97 mmol/L Low 98 - 10 7 mmol/L [facility] CO2 [Moles/Vol] 29 mmol/L 20 - 31 mmol/L [facility] Creatinine [Mass/Vol] 1.22 mg/dL High 0.50 - 0.90 mg/dL [facility] GFR/1.73 sq M.predicted MDRD (S/P/Bld) [Vol rate/Area] 48 mL/min/{1.73_m2} Low - PINF [facility] Comment on above: These results are not intended for use in patients <18 years of age. eGFR results are calculated without a race factor using the 2020 CKD-EPI equation. Careful clinical correlation is recommended, particularly when comparing to results calculated using previous equations. The CKD-EPI equation is less accurate in patients with extremes of muscle mass, extra-renal metabolism of creatine, excessive creatine ingestion, or following therapy that affects renal tubular secretion. Glucose [Mass/Vol] 148 mg/dL High 70 - 99 mg/dL [facility] Interpretation and review of laboratory results Abnormal [facility] Potassium [Moles/Vol] 5.3 mmol/L 3.7 - 5.3 mmol/L [facility] Sodium [Moles/Vol] 134 mmol/L Low 135 - 144 mmol/L [facility] Urea nitrogen [Mass/Vol] 18 mg/dL 8 - 23 mg/dL [facility] CBC with Auto Differentialon 10-05-2022 Absolute Eos # 0.08 [facility] Absolute Immature Granulocyte [facility] Absolute Lymph # 1.26 [place] [facility] Absolute Sullivan # 0.43 [facility] Basophils Absolute [place] [facility] Basophils/100 WBC (Bld) 0 % 0 - 2 % B ON [facility] Eosinophils/100 WBC (Bld) 2 % 1 - 4 % [facility] Hematocrit (Bld) [Volume fraction] 37.7 % 36.3 - 47.1 % [facility] Hemoglobin (Bld) [Mass/Vol] 11.3 g/dL Low 11.9 - 15.1 g/dL [facility] Immature granulocytes/100 WBC (Bld) 0 % 0 [facility] Interpretation and review of laboratory results Abnormal [facility] Lymphocytes/100 WBC (Bld) 25 % 24 - 43 % [facility] MCH (RBC) [Entitic mass] 28.3 pg 25. 2 - 33.5 pg [facility] MCHC (RBC) [Mass/Vol] 30.0 g/dL 28.4 - 34.8 g/dL [facility] MCV (RBC) [Entitic vol] 94.3 fL 82.6 - 102.9 fL [facility] Monocytes/100 WBC (Bld) 9 % 3 - 12 % B ON [facility] NRBC Automated 0.0 0.0 per 100 WBC [facility] Platelet distribution width (Bld) [Ratio] 18.1 % High 11.8 - 14.4 % [facility] Platelets (Bld) [#/Vol] See Reflexed IPF Result [facility] RBC (Bld) [#/Vol] 4.00 10*6/uL 3.95 - 5.1 1 m/uL [facility] RBC (Bld) [#/Vol] ANISOCYTOSIS PRESENT [facility] Segmented neutrophils/100 WBC (Bld) 64 % 36 - 65 % [facility] Segs Absolute 3.23 [facility] WBC (Bld) [#/Vol] 5.0 10*3/uL [facility] Hepatic Function Panelon Albumin [Mass/Vol] 3.2 g/dL Low 3.5 - 5.2 g/dL [facility] Albumin/Globulin [Mass ratio] 0.8 {ratio} Low 1.0 - 2.5 [facility] ALP [Catalytic activity/Vol] 86 U/L 35 - 104 U/L [facility] ALT [Catalytic activity/Vol] 11 U/L 5 - 33 U/L [facility] AST [Catalytic activity/Vol] 24 U/L NINF - 32 U/L [facility] Bilirubin [Mass/Vol] 0.5 mg/dL 0.3 - 1 .2 mg/dL [facility] Bilirubin.direct [Mass/Vol] 0.2 mg/dL NINF - 0.3 mg/dL [facility] Bilirubin.indirect [Mass/Vol] 0.3 mg/dL 0.0 - 1.0 mg/dL [facility] Interpretation and review of laboratory results Abnormal [facility] Protein [Mass/Vol] 7.2 g/dL 6.4 - 8.3 g/dL [facility] Immature Platelet Fractionon 10-05-2022 Interpretation and review of laboratory results Abnormal [facility] Platelet, Fluorescence 86 Low [facility] Platelet, Immature Fraction 2.4 % 1.1 - 10.3 % [facility] POC Glucose Fingerstickon Glucose [Mass/Vol] 240 mg/dL High 65 - 105 mg/dL [facility] Interpretation and review of laboratory results Abnormal [facility] Glucose [Mass/Vol] 327 mg/dL High 65 - 105 mg/dL [facility] Interpretation and review of laboratory results Abnormal [facility] Glucose [Mass/Vol] 213 mg/dL High 65 - 105 mg/dL [facility] Interpretation and review of laboratory results Abnormal [facility] Glucose [Mass/Vol] 182 mg/dL High 65 - 105 mg/dL [facility] Interpretation and review of laboratory results Abnormal [facility] Glucose [Mass/Vol] 237 mg/dL High 65 - 105 mg/dL [facility] Interpretation and review of laboratory results Abnormal [facility] Glucose [Mass/Vol] 182 mg/dL High 65 - 105 mg/dL [facility] Interpretation and review of laboratory results Abnormal [facility] Glucose [Mass/Vol] 158 mg/dL High 65 - 105 mg/dL [facility] Interpretation and review of laboratory results Abnormal [facility] Protime-INRon 10-05-2022 INR Coag (PPP) [Relative time] 1.3 {INR} [facility] Comment on above: Therapeutic Range: Moderate Anticoagulant Intensity: INR = 2.0-3.0 High Anticoagulant Intensity: INR = 2.5-3.5 Interpretation and review of laboratory results Abnormal [facility] PT Coag (PPP) [Time] 14 s High [facility] Basic Metabolic Panel w/ Ref myles to MGon 10-04-2022 Anion gap [Moles/Vol] 12 mmol/L 9 - 17 mmol/L [facility] Calcium [Mass/Vol] 8.7 mg/dL 8.6 - 10. 4 mg/dL [facility] Chloride [Moles/Vol] 100 mmol/L 98 - 10 7 mmol/L [facility] CO2 [Moles/Vol] 21 mmol/L 20 - 31 mmol/L [facility] Creatinine [Mass/Vol] 1.18 mg/dL High 0.50 - 0.90 mg/dL [facility] GFR/1.73 sq M.predicted MDRD (S/P/Bld) [Vol rate/Area] 50 mL/min/{1.73_m2} Low - PINF [facility] Comment on above: These results are not intended for use in patients <18 years of age. eGFR results are calculated without a race factor using the 2020 CKD-EPI equation. Careful clinical correlation is recommended, particularly when comparing to results calculated using previous equations. The CKD-EPI equation is less accurate in patients with extremes of muscle mass, extra-renal metabolism of creatine, excessive creatine ingestion, or following therapy that affects renal tubular secretion. Glucose [Mass/Vol] 149 mg/dL High 70 - 99 mg/dL [facility] Interpretation and review of laboratory results Abnormal [facility] Potassium [Moles/Vol] 5.0 mmol/L 3.7 - 5.3 mmol/L [facility] Sodium [Moles/Vol] 133 mmol/L Low 135 - 144 mmol/L [facility] Urea nitrogen [Mass/Vol] 21 mg/dL 8 - 23 mg/dL [facility] CBC with Auto Differentialon 10-04-2022 Absolute Eos # 0.05 [place] [facility] Absolute Immature Granulocyte [facility] Absolute Lymph # 1.31 [facility] Absolute Sullivan # 0.46 [facility] Basophils Absolute [place] [facility] Basophils/100 WBC (Bld) 0 % 0 - 2 % B [facility] Eosinophils/100 WBC (Bld) 1 % 1 - 4 % [facility] Hematocrit (Bld) [Volume fraction] 35.5 % Low 36.3 - 47.1 % [facility] Hemoglobin (Bld) [Mass/Vol] 10.3 g/dL Low 11.9 - 15.1 g/dL [facility] Immature granulocytes/100 WBC (Bld) 0 % 0 [facility] Interpretation and review of laboratory results Abnormal [facility] Lymphocytes/100 WBC (Bld) 27 % 24 - 43 % [facility] MCH (RBC) [Entitic mass] 28.6 pg 25. 2 - 33.5 pg [facility] MCHC (RBC) [Mass/Vol] 29.0 g/dL 28.4 - 34.8 g/dL [facility] MCV (RBC) [Entitic vol] 98.6 fL 82.6 - 102.9 fL [facility] Monocytes/100 WBC (Bld) 10 % 3 - 12 % B ON [facility] NRBC Automated 0.0 0.0 per 100 WBC [facility] Platelet distribution width (Bld) [Ratio] 18.3 % High 11.8 - 14.4 % [facility] Platelet mean volume (Bld) [Entitic vol] 10.2 fL 8.1 - 13.5 fL [facility] Platelets (Bld) [#/Vol] 97 10*3/uL Low B ON [facility] RBC (Bld) [#/Vol] 3.60 10*6/uL Low 3.95 - 5.1 1 m/uL [facility] RBC (Bld) [#/Vol] ANISOCYTOSIS PRESENT [facility] Segmented neutrophils/100 WBC (Bld) 62 % 36 - 65 % [facility] Segs Absolute 2.94 [facility] WBC (Bld) [#/Vol] 4.8 10*3/uL [facility] MRI LUMBAR SPINE WO CONTRAST on 10-04-2022 Acute superior endplate fracture of L3, resulting in minimal loss of vertebral body height. RECOMMENDATIONS: Unavailable [facility] RIS CONSOLIDATED EXAMINATION: MRI OF THE LUMBAR SPINE WITHOUT CONTRAST, 10/04/2022 2:20 pm TECHNIQUE: Multiplanar multisequence MRI of the lumbar spine was performed without the administration of intravenous contrast. COMPARISON: None. HISTORY: ORDERING SYSTEM PROVIDED HISTORY: l3 compression fractre TECHNOLOGIST PROVIDED HISTORY: l3 compression fractre FINDINGS: BONES/ALIGNMENT: There is a normal lumbar lordosis. Assuming that the last well-formed disc represents L5-S1, the conus medullaris ends at T12 and is within normal limits. There is severe degenerative disc disease at L5-S1, with partial ankylosis. An acute superior endplate fracture of L3 is noted, resulting in minimal loss of vertebral body height. There is mild edema of the posterior paraspinal muscles from L3 extending caudally, likely reflecting muscular strain. SPINAL CORD: The conus terminates normally. SOFT TISSUES: No paraspinal mass identified. L1-L2: Disc bulge resulting in mild narrowing of the thecal sac. L2-L3: Disc bulge resulting in mild narrowing of the thecal sac. L3-L4: Disc bulge and facet hypertrophy resulting in mild to moderate narrowing of the thecal sac. L4-L5: Disc bulge and facet hypertrophy resulting in mild narrowing of the thecal sac. L5-S1: Posterior osteophytes and facet hypertrophy resulting in [id number] narrowing of the right neural foramen. [facility] RIS [facility] Aravind Diggs MD - 10/04/2022 EXAMINATION: MRI OF THE LUMBAR SPINE WITHOUT CONTRAST, 10/04/2022 2:20 pm TECHNIQUE: Multiplanar multisequence MRI of the lumbar spine was performed without the administration of intravenous contrast. COMPARISON: None. HISTORY: ORDERING SYSTEM PROVIDED HISTORY: l3 compression fractre TECHNOLOGIST PROVIDED HISTORY: l3 compression fractre FINDINGS: BONES/ALIGNMENT: There is a normal lumbar lordosis. Assuming that the last well-formed disc represents L5-S1, the conus medullaris ends at T12 and is within normal limits. There is severe degenerative disc disease at L5-S1, with partial ankylosis. An acute superior endplate fracture of L3 is noted, resulting in minimal loss of vertebral body height. There is mild edema of the posterior paraspinal muscles from L3 extending caudally, likely reflecting muscular strain. SPINAL CORD: The conus terminates normally. SOFT TISSUES: No paraspinal mass identified. L1-L2: Disc bulge resulting in mild narrowing of the thecal sac. L2-L3: Disc bulge resulting in mild narrowing of the thecal sac. L3-L4: Disc bulge and facet hypertrophy resulting in mild to moderate narrowing of the thecal sac. L4-L5: Disc bulge and facet hypertrophy resulting in mild narrowing of the thecal sac. L5-S1: Posterior osteophytes and facet hypertrophy resulting in [id number] narrowing of the right neural foramen. IMPRESSION: Acute superior endplate fracture of L3, resulting in minimal loss of vertebral body height. RECOMMENDATIONS: Unavailable [employer] Phone: Radiology Study observation (narrative) [employer] Phone: MRI LUMBAR SPINE WO CONTRAST Ordered By: Aravind Diggs on 10-04-2022 [employer] Phone: No Panel Informationon 10-04 Radiology Study observation (narrative) NEFTALI ALANIZ [facility] [employer] Work Phone: POC Glucose Fingerstickon Glucose [Mass/Vol] 149 mg/dL High 65 - 105 mg/dL [facility] Interpretation and review of laboratory results Abnormal [facility] Glucose [Mass/Vol] 159 mg/dL High 65 - 105 mg/dL [facility] Interpretation and review of laboratory results Abnormal [facility] Glucose [Mass/Vol] 154 mg/dL High 65 - 105 mg/dL [facility] Interpretation and review of laboratory results Abnormal [facility] Glucose [Mass/Vol] 149 mg/dL High 65 - 105 mg/dL [facility] Interpretation and review of laboratory results Abnormal [facility] XR FEMUR LEFT (MIN 2 VIEWS)o n 10-04-2022 No acute osseous abnormality. [facility] RIS CONSOLID[facility] EXAMINATION: 4 XRAY VIEWS OF THE LEFT FEMUR 10/04/2022 8:49 am COMPARISON: None. HISTORY: ORDERING SYSTEM PROVIDED HISTORY: trauma TECHNOLOGIST PROVIDED HISTORY: trauma FINDINGS: There is no evidence of acute fracture. There is normal alignment. Degenerative disease of the visualized joint spaces. No focal osseous lesion. No focal soft tissue abnormality. [facility] Miky Marks MD - 10/04/2022 EXAMINATION: 4 XRAY VIEWS OF THE LEFT FEMUR 10/04/2022 8:49 am COMPARISON: None. HISTORY: ORDERING SYSTEM PROVIDED HISTORY: trauma TECHNOLOGIST PROVIDED HISTORY: trauma FINDINGS: There is no evidence of acute fracture. There is normal alignment. Degenerative disease of the visualized joint spaces. No focal osseous lesion. No focal soft tissue abnormality. IMPRESSION: No acute osseous abnormality. [facility] [employer] Work Phone: [facility] [employer] Work Phone: XR FEMUR RIGHT (MIN 2 VIEWS) on 10-04-2022 No acute osseous abnormality. [facility] RIS CONSOL[facility] EXAMINATION: 4 XRAY VIEWS OF THE RIGHT FEMUR 10/04/2022 8:49 am COMPARISON: None. HISTORY: ORDERING SYSTEM PROVIDED HISTORY: trauma TECHNOLOGIST PROVIDED HISTORY: trauma FINDINGS: There is no evidence of acute fracture. There is normal alignment. Degenerative disease of the visualized joint spaces. No focal osseous lesion. No focal soft tissue abnormality. [facility] Miky Burris MD - 10/04/2022 EXAMINATION: 4 XRAY VIEWS OF THE RIGHT FEMUR 10/04/2022 8:49 am COMPARISON: None. HISTORY: ORDERING SYSTEM PROVIDED HISTORY: trauma TECHNOLOGIST PROVIDED HISTORY: trauma FINDINGS: There is no evidence of acute fracture. There is normal alignment. Degenerative disease of the visualized joint spaces. No focal osseous lesion. No focal soft tissue abnormality. IMPRESSION: No acute osseous abnormality. [employer] Phone: [employer] Phone: XR SHOULDER RIGHT (MIN 2 VIE WS)on 10-04-2022 No acute osseous abnormality. [facility] EXAMINATION: TWO XRAY VIEWS OF THE RIGHT SHOULDER 10/04/2022 8:49 am COMPARISON: None. HISTORY: ORDERING SYSTEM PROVIDED HISTORY: trauma TECHNOLOGIST PROVIDED HISTORY: trauma FINDINGS: The glenohumeral joint is in anatomic alignment. There is chronic shortening of the right clavicle. No acute fracture or dislocation is visualized. Visualized soft tissues are unremarkable. [facility] Miky Burris MD - 10/04/2022 EXAMINATION: TWO XRAY VIEWS OF THE RIGHT SHOULDER 10/04/2022 8:49 am COMPARISON: None. HISTORY: ORDERING SYSTEM PROVIDED HISTORY: trauma TECHNOLOGIST PROVIDED HISTORY: trauma FINDINGS: The glenohumeral joint is in anatomic alignment. There is chronic shortening of the right clavicle. No acute fracture or dislocation is visualized. Visualized soft tissues are unremarkable. IMPRESSION: No acute osseous abnormality. [employer] Phone: XR SHOULDER RIGHT (MIN 2 VIE WS)Ordered By: Miky Marks on 10-04-2022 [employer] Phone: APTTon 10-03-2022 aPTT Coag (Bld) [Time] 19.8 s Low [facility] Comment on above: IV Heparin Therapy Range: 62.0-94.0 Interpretation and review of laboratory results Abnormal [facility] BMPon 10-03-2022 Anion gap [Moles/Vol] 10 mmol/L 9 - 17 mmol/L [facility] Calcium [Mass/Vol] 9.1 mg/dL 8.6 - 10. 4 mg/dL [facility] Chloride [Moles/Vol] 94 mmol/L Low 98 - 10 7 mmol/L [facility] CO2 [Moles/Vol] 27 mmol/L 20 - 31 mmol/L [facility] Creatinine [Mass/Vol] 1.59 mg/dL High 0.50 - 0.90 mg/dL [facility] GFR/1.73 sq M.predicted MDRD (S/P/Bld) [Vol rate/Area] 35 mL/min/{1.73_m2} Low - PINF [facility] Comment on above: These results are not intended for use in patients <18 years of age. eGFR results are calculated without a race factor using the 2020 CKD-EPI equation. Careful clinical correlation is recommended, particularly when comparing to results calculated using previous equations. The CKD-EPI equation is less accurate in patients with extremes of muscle mass, extra-renal metabolism of creatine, excessive creatine ingestion, or following therapy that affects renal tubular secretion. Glucose [Mass/Vol] 120 mg/dL High 70 - 99 mg/dL [facility] Interpretation and review of laboratory results Abnormal [facility] Potassium [Moles/Vol] 5.3 mmol/L 3.7 - 5.3 mmol/L [facility] Sodium [Moles/Vol] 131 mmol/L Low 135 - 144 mmol/L [facility] Urea nitrogen [Mass/Vol] 23 mg/dL 8 - 23 mg/dL [facility] Urea nitrogen/Creatinine (Bld) [Mass ratio] 14 9 - 20 [facility] CBC with Auto Differentialon 10-03-2022 Absolute Eos # 0.06 [facility] Absolute Immature Granulocyte [facility] Absolute Lymph # 1.65 [facility] Absolute Sullivan # 0.28 [facility] Basophils Absolute [facility] Basophils/100 WBC (Bld) 1 % 0 - 2 % B ON [facility] Eosinophils/100 WBC (Bld) 2 % 1 - 4 % [facility] Hematocrit (Bld) [Volume fraction] 34.7 % Low 36.3 - 47.1 % [facility] Hemoglobin (Bld) [Mass/Vol] 10.7 g/dL Low 11.9 - 15.1 g/dL [facility] Immature granulocytes/100 WBC (Bld) 1 % High 0 [facility] Interpretation and review of laboratory results Abnormal [facility] Lymphocytes/100 WBC (Bld) 40 % 24 - 43 % [facility] MCH (RBC) [Entitic mass] 28.7 pg 25. 2 - 33.5 pg [facility] MCHC (RBC) [Mass/Vol] 30.8 g/dL 28.4 - 34.8 g/dL [facility] MCV (RBC) [Entitic vol] 93.0 fL 82.6 - 102.9 fL [facility] Monocytes/100 WBC (Bld) 7 % 3 - 12 % B ON [facility] NRBC Automated 0.0 0.0 per 100 WBC [facility] Platelet distribution width (Bld) [Ratio] 18.4 % High 11.8 - 14.4 % [facility] Platelet mean volume (Bld) [Entitic vol] 10.4 fL 8.1 - 13.5 fL [facility] Platelets (Bld) [#/Vol] 104 10*3/uL Low [facility] RBC (Bld) [#/Vol] 3.73 10*6/uL Low 3.95 - 5.1 1 m/uL [facility] Segmented neutrophils/100 WBC (Bld) 49 % 36 - 65 % [facility] Segs Absolute 2.05 [facility] WBC (Bld) [#/Vol] 4.1 10*3/uL [facility] CT CERVICAL SPINE WO CONTRAS Ton 10-03-2022 No acute abnormality of the cervical spine. Anterior cervical fusion from C5 through C7 [facility] EXAMINATION: CT OF THE CERVICAL SPINE WITHOUT CONTRAST 10/03/2022 6:44 pm TECHNIQUE: CT of the cervical spine was performed without the administration of intravenous contrast. Multiplanar reformatted images are provided for review. Automated exposure control, iterative reconstruction, and/or weight based adjustment of the mA/kV was utilized to reduce the radiation dose to as low as reasonably achievable. COMPARISON: None. HISTORY: ORDERING SYSTEM PROVIDED HISTORY: Fall TECHNOLOGIST PROVIDED HISTORY: Fall Decision Support Exception - unselect if not a suspected or confirmed emergency medical condition->Emergency Medical Condition (MA) FINDINGS: BONES/ALIGNMENT: There is no acute fracture or traumatic malalignment. Anterior fusion is identified from C5 through C7 DEGENERATIVE CHANGES: No significant degenerative changes. SOFT TISSUES: There is no prevertebral soft tissue swelling. [facility] Porter Leo MD - 10/03/2022 EXAMINATION: CT OF THE CERVICAL SPINE WITHOUT CONTRAST 10/03/2022 6:44 pm TECHNIQUE: CT of the cervical spine was performed without the administration of intravenous contrast. Multiplanar reformatted images are provided for review. Automated exposure control, iterative reconstruction, and/or weight based adjustment of the mA/kV was utilized to reduce the radiation dose to as low as reasonably achievable. COMPARISON: None. HISTORY: ORDERING SYSTEM PROVIDED HISTORY: Fall TECHNOLOGIST PROVIDED HISTORY: Fall Decision Support Exception - unselect if not a suspected or confirmed emergency medical condition->Emergency Medical Condition (MA) FINDINGS: BONES/ALIGNMENT: There is no acute fracture or traumatic malalignment. Anterior fusion is identified from C5 through C7 DEGENERATIVE CHANGES: No significant degenerative changes. SOFT TISSUES: There is no prevertebral soft tissue swelling. IMPRESSION: No acute abnormality of the cervical spine. Anterior cervical fusion from C5 through C7 [employer] Phone: [employer] Phone: Radiology Study observation (narrative) [employer] Phone: CT Head WO Contraston 2022 No acute intracranial abnormality. [facility] EXAMINATION: CT OF THE HEAD WITHOUT CONTRAST 10/03/2022 6:43 pm TECHNIQUE: CT of the head was performed without the administration of intravenous contrast. Automated exposure control, iterative reconstruction, and/or weight based adjustment of the mA/kV was utilized to reduce the radiation dose to as low as reasonably achievable. COMPARISON: None. HISTORY: ORDERING SYSTEM PROVIDED HISTORY: Fall injury TECHNOLOGIST PROVIDED HISTORY: Fall injury Decision Support Exception - unselect if not a suspected or confirmed emergency medical condition->Emergency Medical Condition (MA) FINDINGS: BRAIN/VENTRICLES: There is no acute intracranial hemorrhage, mass effect or midline shift. No abnormal extra-axial fluid collection. The mckoy-white differentiation is maintained without evidence of an acute infarct. There is no evidence of hydrocephalus. Mild chronic microvascular disease is identified within the periventricular white matter. Mild cerebral atrophy is noted. The sella is partially empty. ORBITS: The visualized portion of the orbits demonstrate no acute abnormality. SINUSES: The visualized paranasal sinuses and mastoid air cells demonstrate no acute abnormality. SOFT TISSUES/SKULL: No acute abnormality of the visualized skull or soft tissues. [facility] Proter Scrugsg MD - 10/03/2022 EXAMINATION: CT OF THE HEAD WITHOUT CONTRAST 10/03/2022 6:43 pm TECHNIQUE: CT of the head was performed without the administration of intravenous contrast. Automated exposure control, iterative reconstruction, and/or weight based adjustment of the mA/kV was utilized to reduce the radiation dose to as low as reasonably achievable. COMPARISON: None. HISTORY: ORDERING SYSTEM PROVIDED HISTORY: Fall injury TECHNOLOGIST PROVIDED HISTORY: Fall injury Decision Support Exception - unselect if not a suspected or confirmed emergency medical condition->Emergency Medical Condition (MA) FINDINGS: BRAIN/VENTRICLES: There is no acute intracranial hemorrhage, mass effect or midline shift. No abnormal extra-axial fluid collection. The mckoy-white differentiation is maintained without evidence of an acute infarct. There is no evidence of hydrocephalus. Mild chronic microvascular disease is identified within the periventricular white matter. Mild cerebral atrophy is noted. The sella is partially empty. ORBITS: The visualized portion of the orbits demonstrate no acute abnormality. SINUSES: The visualized paranasal sinuses and mastoid air cells demonstrate no acute abnormality. SOFT TISSUES/SKULL: No acute abnormality of the visualized skull or soft tissues. IMPRESSION: No acute intracranial abnormality. [facility] [employer] Work Phone: Radiology Study observation (narrative) NEFT[employer] ALANIZ [employer] Work Phone: CT Head WO ContrastOrdered B y: Porter Leo on 10-03-2022 NEFTALI ANDERSON [employer] Work Phone: CT LUMBAR SPINE WO CONTRASTo n 10-03-2022 Acute mild compression fracture of L3. [facility] EXAMINATION: CT OF THE LUMBAR SPINE WITHOUT CONTRAST, 10/03/2022 TECHNIQUE: CT of the lumbar spine was performed without the administration of intravenous contrast. Multiplanar reformatted images are provided for review. Adjustment of mA and/or kV according to patient size was utilized. Automated exposure control, iterative reconstruction, and/or weight based adjustment of the mA/kV was utilized to reduce the radiation dose to as low as reasonably achievable. COMPARISON: None HISTORY: ORDERING SYSTEM PROVIDED HISTORY: Fall injury TECHNOLOGIST PROVIDED HISTORY: Fall injury Decision Support Exception - unselect if not a suspected or confirmed emergency medical condition->Emergency Medical Condition (MA) FINDINGS: BONES/ALIGNMENT: There is normal alignment of the spine. There is acute fracture of the superior endplate L3 located anteriorly. There is loss of 10% of vertebral body height. No retropulsion is appreciated. DEGENERATIVE CHANGES: No significant degenerative changes of the lumbar spine. SOFT TISSUES/RETROPERITON EUM: No paraspinal mass is seen. [facility] Porter Leo MD - 10/03/2022 EXAMINATION: CT OF THE LUMBAR SPINE WITHOUT CONTRAST, 10/03/2022 TECHNIQUE: CT of the lumbar spine was performed without the administration of intravenous contrast. Multiplanar reformatted images are provided for review. Adjustment of mA and/or kV according to patient size was utilized. Automated exposure control, iterative reconstruction, and/or weight based adjustment of the mA/kV was utilized to reduce the radiation dose to as low as reasonably achievable. COMPARISON: None HISTORY: ORDERING SYSTEM PROVIDED HISTORY: Fall injury TECHNOLOGIST PROVIDED HISTORY: Fall injury Decision Support Exception - unselect if not a suspected or confirmed emergency medical condition->Emergency Medical Condition (MA) FINDINGS: BONES/ALIGNMENT: There is normal alignment of the spine. There is acute fracture of the superior endplate L3 located anteriorly. There is loss of 10% of vertebral body height. No retropulsion is appreciated. DEGENERATIVE CHANGES: No significant degenerative changes of the lumbar spine. SOFT TISSUES/RETROPERITON EUM: No paraspinal mass is seen. IMPRESSION: Acute mild compression fracture of L3. [employer] Phone: NEFTALI ANDERSON [employer] Phone: Radiology Study observation (narrative) [employer]I ALANIZ [employer] Phone: CT THORACIC SPINE WO CONTRAS Ton 10-03-[address] of the thoracic spine. [facility] EXAMINATION: CT OF THE THORACIC SPINE WITHOUT CONTRAST 10/03/2022 6:44 pm: TECHNIQUE: CT of the thoracic spine was performed without the administration of intravenous contrast. Multiplanar reformatted images are provided for review. Automated exposure control, iterative reconstruction, and/or weight based adjustment of the mA/kV was utilized to reduce the radiation dose to as low as reasonably achievable. COMPARISON: None. HISTORY: ORDERING SYSTEM PROVIDED HISTORY: Fall TECHNOLOGIST PROVIDED HISTORY: Fall FINDINGS: BONES/ALIGNMENT: There is normal alignment of the spine. The vertebral body heights are maintained. No osseous destructive lesion is seen. DEGENERATIVE CHANGES: No gross spinal canal stenosis or bony neural foraminal narrowing of the thoracic spine. SOFT TISSUES: No paraspinal mass is seen. [facility] Porter Leo MD - 10/03/2022 EXAMINATION: CT OF THE THORACIC SPINE WITHOUT CONTRAST 10/03/2022 6:44 pm: TECHNIQUE: CT of the thoracic spine was performed without the administration of intravenous contrast. Multiplanar reformatted images are provided for review. Automated exposure control, iterative reconstruction, and/or weight based adjustment of the mA/kV was utilized to reduce the radiation dose to as low as reasonably achievable. COMPARISON: None. HISTORY: ORDERING SYSTEM PROVIDED HISTORY: Fall TECHNOLOGIST PROVIDED HISTORY: Fall FINDINGS: BONES/ALIGNMENT: There is normal alignment of the spine. The vertebral body heights are maintained. No osseous destructive lesion is seen. DEGENERATIVE CHANGES: No gross spinal canal stenosis or bony neural foraminal narrowing of the thoracic spine. SOFT TISSUES: No paraspinal mass is seen. IMPRESSION: Unremarkable CT of the thoracic spine. [employer] Phone: [employer] Phone: Radiology Study observation (narrative) NEFTALI ALANIZ [facility] Work Phone: Magnesiumon 10-03-2022 Interpretation and review of laboratory results Abnormal [facility] Magnesium [Mass/Vol] 1.1 mg/dL Critically low 1.6 - 2.6 mg/dL [facility] No Panel Informationon 10-03 [facility] POCT GlucoseOrdered By: Cathie Hennessy on 10-03-2022 Glucose [Mass/Vol] 120 mg/dL [facility] Interpretation and review of laboratory results Normal [facility] QC OK? y [facility] Protime-INRon 10-03-2022 INR Coag (PPP) [Relative time] 1.1 {INR} [facility] Comment on above: Therapeutic Range: Moderate Anticoagulant Intensity: INR = 2.0-3.0 High Anticoagulant Intensity: INR = 2.5-3.5 PT Coag (PPP) [Time] 14 s [facility] TYPE AND SCREENon 10-03-2022 ABO/Rh Positive [facility] Arm Band Number [id number] [facility] Expiration Date 10/06/2022,2359 [facility] XR CHEST PORTABLEon 10-03-19 23 Mild edema or interstitial lung disease. Bilateral subsegmental atelectasis. [facility] CONSOL[facility] EXAMINATION: ONE XRAY VIEW OF THE CHEST 10/03/2022 8:33 pm COMPARISON: September 06, 2022 HISTORY: ORDERING SYSTEM PROVIDED HISTORY: fall TECHNOLOGIST PROVIDED HISTORY: fall FINDINGS: Cervical hardware noted. Bilateral subsegmental atelectasis. Increased interstitial markings. Heart and mediastinum normal. Bony thorax intact. Right clavicle foreshortened. [facility] Kyler Toro MD - 10/03/2022 EXAMINATION: ONE XRAY VIEW OF THE CHEST 10/03/2022 8:33 pm COMPARISON: September 06, 2022 HISTORY: ORDERING SYSTEM PROVIDED HISTORY: fall TECHNOLOGIST PROVIDED HISTORY: fall FINDINGS: Cervical hardware noted. Bilateral subsegmental atelectasis. Increased interstitial markings. Heart and mediastinum normal. Bony thorax intact. Right clavicle foreshortened. IMPRESSION: Mild edema or interstitial lung disease. Bilateral subsegmental atelectasis. [employer] Phone: Radiology Study observation (narrative) NEFTALI MARRUFO [employer] Phone: XR CHEST PORTABLEOrdered By: Kyler Toro on 10-03-2022 [employer] Phone: XR PELVIS (1-2 VIEWS)on 09-17 No acute osseous abnormality. [facility] EXAMINATION: ONE XRAY VIEW OF THE PELVIS 10/03/2022 8:33 pm COMPARISON: None. HISTORY: ORDERING SYSTEM PROVIDED HISTORY: fall with back pain TECHNOLOGIST PROVIDED HISTORY: fall with back pain FINDINGS: No fracture or dislocation is detected. Hip joint spaces are well preserved and anatomically aligned. No SI joint or pubic symphysis abnormality is identified. No focal lytic or sclerotic lesion is detected. The sacrum is obscured by overlying bowel gas. [facility] James Ellis MD - 10/03/2022 EXAMINATION: ONE XRAY VIEW OF THE PELVIS 10/03/2022 8:33 pm COMPARISON: None. HISTORY: ORDERING SYSTEM PROVIDED HISTORY: fall with back pain TECHNOLOGIST PROVIDED HISTORY: fall with back pain FINDINGS: No fracture or dislocation is detected. Hip joint spaces are well preserved and anatomically aligned. No SI joint or pubic symphysis abnormality is identified. No focal lytic or sclerotic lesion is detected. The sacrum is obscured by overlying bowel gas. IMPRESSION: No acute osseous abnormality. [employer] Phone: Radiology Study observation (narrative) NEFTALI MARRUFO [employer] Phone: XR PELVIS (1-2 VIEWS)Ordered By: James Ellis on 10-03-2022 [employer] Phone: Ammoniaon 09-11-2022 Ammonia (P) [Moles/Vol] 35 umol/L 11 - 51 umol/L [facility] Blood Culture 1on 09-11-2022 Special Requests 20 ML RAC [facility] SHAIN[place] AKTTY [facility] CBC auto differentialon 08-18 Absolute Eos # 0.07 [place] [facility] Absolute Immature Granulocyte [facility] Absolute Lymph # 1.09 Low [place] [facility] Absolute Sullivan # 0.22 [facility] Basophils Absolute [place] [facility] Basophils/100 WBC (Bld) 1 % 0 - 2 % B ON [facility] Eosinophils/100 WBC (Bld) 2 % 1 - 4 % [facility] Hematocrit (Bld) [Volume fraction] 29.8 % Low 36.3 - 47.1 % [facility] Hemoglobin (Bld) [Mass/Vol] 9.3 g/dL Low 11.9 - 15.1 g/dL [facility] Immature granulocytes/100 WBC (Bld) 0 % 0 [facility] Interpretation and review of laboratory results Abnormal [facility] Lymphocytes/100 WBC (Bld) 34 % 24 - 43 % [facility] MCH (RBC) [Entitic mass] 28.4 pg 25. 2 - 33.5 pg [facility] MCHC (RBC) [Mass/Vol] 31.2 g/dL 28.4 - 34.8 g/dL [facility] MCV (RBC) [Entitic vol] 90.9 fL 82.6 - 102.9 fL [facility] Monocytes/100 WBC (Bld) 7 % 3 - 12 % B ON [facility] NRBC Automated 0.0 0.0 per 100 WBC [facility] Platelet distribution width (Bld) [Ratio] 17.0 % High 11.8 - 14.4 % [facility] Platelet mean volume (Bld) [Entitic vol] 9.5 fL 8.1 - 13.5 fL [facility] Platelets (Bld) [#/Vol] 113 10*3/uL Low [facility] RBC (Bld) [#/Vol] 3.28 10*6/uL Low 3.95 - 5.1 1 m/uL [facility] Segmented neutrophils/100 WBC (Bld) 56 % 36 - 65 % [facility] Segs Absolute 1.83 [facility] WBC (Bld) [#/Vol] 3.2 10*3/uL Low [facility] Comprehensive Metabolic Pane l w/ Reflex to MGon 09-11-2022 Albumin [Mass/Vol] 2.7 g/dL Low 3.5 - 5.2 g/dL [facility] Albumin/Globulin [Mass ratio] 0.7 {ratio} Low 1.0 - 2.5 [facility] ALP (Bld) [Catalytic activity/Vol] 134 U/L High 35 - 104 U/L [facility] ALT [Catalytic activity/Vol] 24 U/L 5 - 33 U/L [facility] Anion gap [Moles/Vol] 8 mmol/L Low 9 - 17 mmol/L [facility] AST [Catalytic activity/Vol] 45 U/L High NINF - 32 U/L [facility] Bilirubin [Mass/Vol] 0.2 mg/dL Low 0.3 - 1 .2 mg/dL [facility] Calcium [Mass/Vol] 8.9 mg/dL 8.6 - 10. 4 mg/dL [facility] Chloride [Moles/Vol] 103 mmol/L 98 - 10 7 mmol/L [facility] CO2 [Moles/Vol] 26 mmol/L 20 - 31 mmol/L [facility] Creatinine [Mass/Vol] 1.01 mg/dL High 0.50 - 0.90 mg/dL [facility] GFR/1.73 sq M.predicted MDRD (S/P/Bld) [Vol rate/Area] - PINF [facility] Comment on above: These results are not intended for use in patients <18 years of age. eGFR results are calculated without a race factor using the 2020 CKD-EPI equation. Careful clinical correlation is recommended, particularly when comparing to results calculated using previous equations. The CKD-EPI equation is less accurate in patients with extremes of muscle mass, extra-renal metabolism of creatine, excessive creatine ingestion, or following therapy that affects renal tubular secretion. Glucose [Mass/Vol] 118 mg/dL High 70 - 99 mg/dL [facility] Interpretation and review of laboratory results Abnormal [facility] Potassium [Moles/Vol] 4.5 mmol/L 3.7 - 5.3 mmol/L [facility] Protein [Mass/Vol] 6.5 g/dL 6.4 - 8.3 g/dL [facility] Sodium [Moles/Vol] 137 mmol/L 135 - 144 mmol/L [facility] Urea nitrogen (BldV) [Mass/Vol] 7 mg/dL Low 8 - 23 mg/dL [facility] Urea nitrogen/Creatinine (Bld) [Mass ratio] 7 Low 9 - 20 [facility] Culture, Blood 2on 3 Special Requests 20 ML LFTF OREARM B ON [facility] EKG Rhythm Stripon 3 ROUTINE - KT [facility] LAB [facility] LAB [facility] Glucose, Whole Bloodon 09-11 Glucose [Mass/Vol] 132 mg/dL High 74 - 100 mg/dL [facility] Interpretation and review of laboratory results Abnormal [facility] Glucose [Mass/Vol] 180 mg/dL High 74 - 100 mg/dL [facility] Interpretation and review of laboratory results Abnormal [facility] Glucose [Mass/Vol] 108 mg/dL High 74 - 100 mg/dL [facility] Interpretation and review of laboratory results Abnormal [facility] Laboratory - Microbiology an d Antimicrobial susceptibilityon 09-11-2022 Bacteria identified Cx Nom (Unsp spec) NO GROWTH 5 DAYS [facility] No Panel Informationon 09-11 Specimen Description .BLOOD [facility] Ammoniaon 09-10-2022 Ammonia (P) [Moles/Vol] 26 umol/L 11 - 51 umol/L [facility] CBC auto differentialon 08-18 Absolute Eos # 0.04 [facility] Absolute Immature Granulocyte [facility] Absolute Lymph # 0.92 Low [place] [facility] Absolute Sullivan # 0.25 [facility] Basophils Absolute [place] [facility] Basophils/100 WBC (Bld) 0 % 0 - 2 % B ON [facility] Eosinophils/100 WBC (Bld) 1 % 1 - 4 % [facility] Hematocrit (Bld) [Volume fraction] 29.7 % Low 36.3 - 47.1 % [facility] Hemoglobin (Bld) [Mass/Vol] 9.4 g/dL Low 11.9 - 15.1 g/dL [facility] Immature granulocytes/100 WBC (Bld) 0 % 0 [facility] Interpretation and review of laboratory results Abnormal [facility] Lymphocytes/100 WBC (Bld) 31 % 24 - 43 % [facility] MCH (RBC) [Entitic mass] 28.5 pg 25. 2 - 33.5 pg [facility] MCHC (RBC) [Mass/Vol] 31.6 g/dL 28.4 - 34.8 g/dL [facility] MCV (RBC) [Entitic vol] 90.0 fL 82.6 - 102.9 fL [facility] Monocytes/100 WBC (Bld) 8 % 3 - 12 % B ON [facility] NRBC Automated 0.0 0.0 per 100 WBC [facility] Platelet distribution width (Bld) [Ratio] 16.8 % High 11.8 - 14.4 % [facility] Platelet mean volume (Bld) [Entitic vol] 9.2 fL 8.1 - 13.5 fL [facility] Platelets (Bld) [#/Vol] 108 10*3/uL Low [facility] RBC (Bld) [#/Vol] 3.30 10*6/uL Low 3.95 - 5.1 1 m/uL [facility] Segmented neutrophils/100 WBC (Bld) 60 % 36 - 65 % [facility] Segs Absolute 1.77 [facility] WBC (Bld) [#/Vol] 3.0 10*3/uL Low [facility] Comprehensive Metabolic Pane l w/ Reflex to MGon 09-10-2022 Albumin [Mass/Vol] 2.8 g/dL Low 3.5 - 5.2 g/dL [facility] Albumin/Globulin [Mass ratio] 0.8 {ratio} Low 1.0 - 2.5 [facility] ALP (Bld) [Catalytic activity/Vol] 127 U/L High 35 - 104 U/L [facility] ALT [Catalytic activity/Vol] 20 U/L 5 - 33 U/L [facility] Anion gap [Moles/Vol] 8 mmol/L Low 9 - 17 mmol/L [facility] AST [Catalytic activity/Vol] 37 U/L High NINF - 32 U/L [facility] Bilirubin [Mass/Vol] 0.3 mg/dL 0.3 - 1 .2 mg/dL [facility] Calcium [Mass/Vol] 8.9 mg/dL 8.6 - 10. 4 mg/dL [facility] Chloride [Moles/Vol] 104 mmol/L 98 - 10 7 mmol/L [facility] CO2 [Moles/Vol] 27 mmol/L 20 - 31 mmol/L [facility] Creatinine [Mass/Vol] 0.88 mg/dL 0.50 - 0.90 mg/dL [facility] GFR/1.73 sq M.predicted MDRD (S/P/Bld) [Vol rate/Area] - PINF [facility] Comment on above: Effective May 19, 2022 These results are not intended for use in patients <18 years of age. eGFR results are calculated without a race factor using the 2020 CKD-EPI equation. Careful clinical correlation is recommended, particularly when comparing to results calculated using previous equations. The CKD-EPI equation is less accurate in patients with extremes of muscle mass, extra-renal metabolism of creatine, excessive creatine ingestion, or following therapy that affects renal tubular secretion. Glucose [Mass/Vol] 79 mg/dL 70 - 99 mg/dL [facility] Interpretation and review of laboratory results Abnormal [facility] Potassium [Moles/Vol] 4.4 mmol/L 3.7 - 5.3 mmol/L [facility] Protein [Mass/Vol] 6.1 g/dL Low 6.4 - 8.3 g/dL [facility] Sodium [Moles/Vol] 139 mmol/L 135 - 144 mmol/L [facility] Urea nitrogen (BldV) [Mass/Vol] 9 mg/dL 8 - 23 mg/dL [facility] Urea nitrogen/Creatinine (Bld) [Mass ratio] 10 9 - 20 [facility] EKG Rhythm Stripon 3 [facility] LAB [facility] Glucose, Whole Bloodon 09-10 Glucose [Mass/Vol] 180 mg/dL High 74 - 100 mg/dL [facility] Interpretation and review of laboratory results Abnormal [facility] Glucose [Mass/Vol] 149 mg/dL High 74 - 100 mg/dL [facility] Interpretation and review of laboratory results Abnormal [facility] Glucose [Mass/Vol] 169 mg/dL High 74 - 100 mg/dL [facility] Interpretation and review of laboratory results Abnormal [facility] Glucose [Mass/Vol] 64 mg/dL Low 74 - 100 mg/dL [facility] Interpretation and review of laboratory results Abnormal [facility] Ammoniaon 2022 Ammonia (P) [Moles/Vol] 50 umol/L 11 - 51 umol/L [facility] CBC auto differentialon 08-18 Absolute Eos # 0.07 [place] [facility] Absolute Immature Granulocyte [facility] Absolute Lymph # 0.98 Low [facility] Absolute Sullivan # 0.[facility] Basophils Absolute [place] [facility] Basophils/100 WBC (Bld) 0 % 0 - 2 % B [facility] Eosinophils/100 WBC (Bld) 3 % 1 - 4 % [facility] Hematocrit (Bld) [Volume fraction] 29.0 % Low 36.3 - 47.1 % [facility] Hemoglobin (Bld) [Mass/Vol] 9.2 g/dL Low 11.9 - 15.1 g/dL [facility] Immature granulocytes/100 WBC (Bld) 0 % 0 [facility] Interpretation and review of laboratory results Abnormal [facility] Lymphocytes/100 WBC (Bld) 37 % 24 - 43 % [facility] MCH (RBC) [Entitic mass] 28.5 pg 25. 2 - 33.5 pg [facility] MCHC (RBC) [Mass/Vol] 31.7 g/dL 28.4 - 34.8 g/dL [facility] MCV (RBC) [Entitic vol] 89.8 fL 82.6 - 102.9 fL [facility] Monocytes/100 WBC (Bld) 9 % 3 - 12 % B ON [facility] NRBC Automated 0.0 0.0 per 100 WBC [facility] Platelet distribution width (Bld) [Ratio] 16.6 % High 11.8 - 14.4 % [facility] Platelet mean volume (Bld) [Entitic vol] 9.3 fL 8.1 - 13.5 fL [facility] Platelets (Bld) [#/Vol] 111 10*3/uL Low [facility] RBC (Bld) [#/Vol] 3.23 10*6/uL Low 3.95 - 5.1 1 m/uL [facility] Segmented neutrophils/100 WBC (Bld) 51 % 36 - 65 % [facility] Segs Absolute 1.33 Low [facility] WBC (Bld) [#/Vol] 2.6 10*3/uL Low [facility] Comprehensive Metabolic Pane l w/ Reflex to MGon 2022 Albumin [Mass/Vol] 2.6 g/dL Low 3.5 - 5.2 g/dL [facility] Albumin/Globulin [Mass ratio] 0.8 {ratio} Low 1.0 - 2.5 [facility] ALP (Bld) [Catalytic activity/Vol] 127 U/L High 35 - 104 U/L [facility] ALT [Catalytic activity/Vol] 22 U/L 5 - 33 U/L [facility] Anion gap [Moles/Vol] 9 mmol/L 9 - 17 mmol/L [facility] AST [Catalytic activity/Vol] 41 U/L High NINF - 32 U/L [facility] Bilirubin [Mass/Vol] 0.2 mg/dL Low 0.3 - 1 .2 mg/dL [facility] Calcium [Mass/Vol] 8.5 mg/dL Low 8.6 - 10. 4 mg/dL [facility] Chloride [Moles/Vol] 106 mmol/L 98 - 10 7 mmol/L [facility] CO2 [Moles/Vol] 25 mmol/L 20 - 31 mmol/L [facility] Creatinine [Mass/Vol] 0.98 mg/dL High 0.50 - 0.90 mg/dL [facility] GFR/1.73 sq M.predicted MDRD (S/P/Bld) [Vol rate/Area] - PINF [facility] Comment on above: Effective May 19, 2022 These results are not intended for use in patients <18 years of age. eGFR results are calculated without a race factor using the 2020 CKD-EPI equation. Careful clinical correlation is recommended, particularly when comparing to results calculated using previous equations. The CKD-EPI equation is less accurate in patients with extremes of muscle mass, extra-renal metabolism of creatine, excessive creatine ingestion, or following therapy that affects renal tubular secretion. Glucose [Mass/Vol] 86 mg/dL 70 - 99 mg/dL [facility] Interpretation and review of laboratory results Abnormal [facility] Potassium [Moles/Vol] 4.3 mmol/L 3.7 - 5.3 mmol/L [facility] Protein [Mass/Vol] 6.0 g/dL Low 6.4 - 8.3 g/dL [facility] Sodium [Moles/Vol] 140 mmol/L 135 - 144 mmol/L [facility] Urea nitrogen (BldV) [Mass/Vol] 15 mg/dL 8 - 23 mg/dL [facility] Urea nitrogen/Creatinine (Bld) [Mass ratio] 15 9 - 20 [facility] EKG Rhythm Stripon [facility] LAB [facility] Glucose, Whole Bloodon 09-09 Glucose [Mass/Vol] 164 mg/dL High 74 - 100 mg/dL [facility] Interpretation and review of laboratory results Abnormal [facility] Glucose [Mass/Vol] 115 mg/dL High 74 - 100 mg/dL [facility] Interpretation and review of laboratory results Abnormal [facility] Glucose [Mass/Vol] 112 mg/dL High 74 - 100 mg/dL [facility] Interpretation and review of laboratory results Abnormal [facility] Glucose [Mass/Vol] 87 mg/dL 74 - 100 mg/dL [facility] CBC auto differentialon 08-18 Absolute Eos # 0.06 [place] [facility] Absolute Immature Granulocyte [facility] Absolute Lymph # 0.87 Low [place] [facility] [facility] Absolute Sullivan # 0.33 [facility] RS [facility] Basophils Absolute [place] [facility] Basophils/100 WBC (Bld) 0 % 0 - 2 % B [facility] Eosinophils/100 WBC (Bld) 2 % 1 - 4 % [facility] Hematocrit (Bld) [Volume fraction] 28.3 % Low 36.3 - 47.1 % [facility] Hemoglobin (Bld) [Mass/Vol] 8.8 g/dL Low 11.9 - 15.1 g/dL [facility] Immature granulocytes/100 WBC (Bld) 0 % 0 [facility] Interpretation and review of laboratory results Abnormal [facility] Lymphocytes/100 WBC (Bld) 27 % 24 - 43 % [facility] MCH (RBC) [Entitic mass] 27.9 pg 25. 2 - 33.5 pg [facility] MCHC (RBC) [Mass/Vol] 31.1 g/dL 28.4 - 34.8 g/dL [facility] MCV (RBC) [Entitic vol] 89.8 fL 82.6 - 102.9 fL [facility] Monocytes/100 WBC (Bld) 10 % 3 - 12 % B ON [facility] NRBC Automated 0.0 0.0 per 100 WBC [facility] Platelet distribution width (Bld) [Ratio] 16.4 % High 11.8 - 14.4 % [facility] Platelet mean volume (Bld) [Entitic vol] 9.2 fL 8.1 - 13.5 fL [facility] Platelets (Bld) [#/Vol] 102 10*3/uL Low [facility] RBC (Bld) [#/Vol] 3.15 10*6/uL Low 3.95 - 5.1 1 m/uL [facility] Segmented neutrophils/100 WBC (Bld) 61 % 36 - 65 % [facility] Segs Absolute 1.99 [facility] WBC (Bld) [#/Vol] 3.3 10*3/uL Low [facility] Comprehensive Metabolic Pane l w/ Reflex to MGon 09-08-2022 Albumin [Mass/Vol] 2.5 g/dL Low 3.5 - 5.2 g/dL [facility] Albumin/Globulin [Mass ratio] 0.7 {ratio} Low 1.0 - 2.5 [facility] ALP (Bld) [Catalytic activity/Vol] 129 U/L High 35 - 104 U/L [facility] ALT [Catalytic activity/Vol] 23 U/L 5 - 33 U/L [facility] Anion gap [Moles/Vol] 7 mmol/L Low 9 - 17 mmol/L [facility] AST [Catalytic activity/Vol] 50 U/L High NINF - 32 U/L [facility] Bilirubin [Mass/Vol] 0.3 mg/dL 0.3 - 1 .2 mg/dL [facility] Calcium [Mass/Vol] 8.5 mg/dL Low 8.6 - 10. 4 mg/dL [facility] Chloride [Moles/Vol] 106 mmol/L 98 - 10 7 mmol/L [facility] CO2 [Moles/Vol] 25 mmol/L 20 - 31 mmol/L [facility] Creatinine [Mass/Vol] 1.17 mg/dL High 0.50 - 0.90 mg/dL [facility] GFR/1.73 sq M.predicted MDRD (S/P/Bld) [Vol rate/Area] 51 mL/min/{1.73_m2} Low - PINF [facility] Comment on above: Effective May 19, 2022 These results are not intended for use in patients <18 years of age. eGFR results are calculated without a race factor using the 2020 CKD-EPI equation. Careful clinical correlation is recommended, particularly when comparing to results calculated using previous equations. The CKD-EPI equation is less accurate in patients with extremes of muscle mass, extra-renal metabolism of creatine, excessive creatine ingestion, or following therapy that affects renal tubular secretion. Glucose [Mass/Vol] 153 mg/dL High 70 - 99 mg/dL [facility] Interpretation and review of laboratory results Abnormal [facility] Potassium [Moles/Vol] 4.9 mmol/L 3.7 - 5.3 mmol/L [facility] Protein [Mass/Vol] 6.0 g/dL Low 6.4 - 8.3 g/dL [facility] [facility] Sodium [Moles/Vol] 138 mmol/L 135 - 144 mmol/L [facility] Urea nitrogen (BldV) [Mass/Vol] 25 mg/dL High 8 - 23 mg/dL [facility] Urea nitrogen/Creatinine (Bld) [Mass ratio] 21 High 9 - 20 [facility] EKG Rhythm Stripon 3 LB RN [facility] Glucose, Whole Bloodon 09-08 Glucose [Mass/Vol] 124 mg/dL High 74 - 100 mg/dL [facility] Interpretation and review of laboratory results Abnormal [facility] Glucose [Mass/Vol] 127 mg/dL High 74 - 100 mg/dL [facility] Interpretation and review of laboratory results Abnormal [facility] Glucose [Mass/Vol] 143 mg/dL High 74 - 100 mg/dL [facility] Interpretation and review of laboratory results Abnormal [facility] Glucose [Mass/Vol] 122 mg/dL High 74 - 100 mg/dL [facility] Interpretation and review of laboratory results Abnormal [facility] CBC auto differentialon 08-18 [facility] Absolute Immature Granulocyte [facility] Absolute Lymph # 1.20 [place] [facility] Absolute Sullivan # 0.41 [facility] Basophils Absolute [place] [facility] Basophils/100 WBC (Bld) 1 % 0 - 2 % B ON [facility] Eosinophils/100 WBC (Bld) 2 % 1 - 4 % [facility] Hematocrit (Bld) [Volume fraction] 32.7 % Low 36.3 - 47.1 % [facility] Hemoglobin (Bld) [Mass/Vol] 10.2 g/dL Low 11.9 - 15.1 g/dL [facility] Immature granulocytes/100 WBC (Bld) 1 % High 0 [facility] Interpretation and review of laboratory results Abnormal [facility] Lymphocytes/100 WBC (Bld) 28 % 24 - 43 % [facility] MCH (RBC) [Entitic mass] 28.5 pg 25. 2 - 33.5 pg [facility] MCHC (RBC) [Mass/Vol] 31.2 g/dL 28.4 - 34.8 g/dL [facility] MCV (RBC) [Entitic vol] 91.3 fL 82.6 - 102.9 fL [facility] Monocytes/100 WBC (Bld) 10 % 3 - 12 % B ON [facility] NRBC Automated 0.0 0.0 per 100 WBC [facility] Platelet distribution width (Bld) [Ratio] 16.4 % High 11.8 - 14.4 % [facility] Platelet mean volume (Bld) [Entitic vol] 9.5 fL 8.1 - 13.5 fL [facility] Platelets (Bld) [#/Vol] 122 10*3/uL Low [facility] RBC (Bld) [#/Vol] 3.58 10*6/uL Low 3.95 - 5.1 1 m/uL [facility] Segmented neutrophils/100 WBC (Bld) 59 % 36 - 65 % [facility] Segs Absolute 2.52 [facility] WBC (Bld) [#/Vol] 4.3 10*3/uL [facility] Comprehensive Metabolic Pane l w/ Reflex to MGon 09-07-2022 Albumin [Mass/Vol] 2.7 g/dL Low 3.5 - 5.2 g/dL [facility] Albumin/Globulin [Mass ratio] 0.7 {ratio} Low 1.0 - 2.5 [facility] ALP (Bld) [Catalytic activity/Vol] 113 U/L High 35 - 104 U/L [facility] ALT [Catalytic activity/Vol] 15 U/L 5 - 33 U/L [facility] Anion gap [Moles/Vol] 8 mmol/L Low 9 - 17 mmol/L [facility] AST [Catalytic activity/Vol] 26 U/L NINF - 32 U/L [facility] Bilirubin [Mass/Vol] 0.3 mg/dL 0.3 - 1 .2 mg/dL [facility] Calcium [Mass/Vol] 8.7 mg/dL 8.6 - 10. 4 mg/dL [facility] Chloride [Moles/Vol] 99 mmol/L 98 - 10 7 mmol/L [facility] CO2 [Moles/Vol] 23 mmol/L 20 - 31 mmol/L [facility] Creatinine [Mass/Vol] 1.84 mg/dL High 0.50 - 0.90 mg/dL [facility] GFR/1.73 sq M.predicted MDRD (S/P/Bld) [Vol rate/Area] 30 mL/min/{1.73_m2} Low - PINF [facility] Comment on above: Effective May 19, 2022 These results are not intended for use in patients <18 years of age. eGFR results are calculated without a race factor using the 2020 CKD-EPI equation. Careful clinical correlation is recommended, particularly when comparing to results calculated using previous equations. The CKD-EPI equation is less accurate in patients with extremes of muscle mass, extra-renal metabolism of creatine, excessive creatine ingestion, or following therapy that affects renal tubular secretion. Glucose [Mass/Vol] 110 mg/dL High 70 - 99 mg/dL [employer] Interpretation and review of laboratory results Abnormal [employer] Potassium [Moles/Vol] 4.7 mmol/L 3.7 - 5.3 mmol/L [employer] Protein [Mass/Vol] 6.6 g/dL 6.4 - 8.3 g/dL [employer] Sodium [Moles/Vol] 130 mmol/L Low 135 - 144 mmol/L [employer] Urea nitrogen (BldV) [Mass/Vol] 45 mg/dL High 8 - 23 mg/dL [employer] Urea nitrogen/Creatinine (Bld) [Mass ratio] 24 High 9 - 20 [facility] EKG 12 LeadOrdered By: Jalen Park on 09-07-2022 Atrial Rate 67 BPM [employer] Work Phone: P Henderson 54 degrees [employer] Work Phone: P-R Interval 142 ms [employer] Work Phone: Q-T Interval 438 ms [employer] Work Phone: QRS Duration 88 ms [employer] Work Phone: QTc Calculation (Bazett) 462 ms [employer] Work Phone: R Henderson -8 degrees [employer] Work Phone: T Henderson 47 degrees [employer] Work Phone: Ventricular Rate 67 BPM [employer] Work Phone: [employer] Work Phone: EKG 12 Leadon 09-07-2022 Normal sinus rhythm Inferior infarct , age undetermined Cannot rule out Anterior infarct (cited on or before 27-DEC-2021) Abnormal ECG When compared with ECG of 07-AUG-2022 19:25, Nonspecific T wave abnormality has replaced inverted T waves in Lateral leads Confirmed by EREN PARK ([id number]) on 09/07/2022 12:35:46 PM [facility] RADI[facility] Eren Park MD - 09/07/2022 Normal sinus rhythm Inferior infarct , age undetermined Cannot rule out Anterior infarct (cited on or before 27-DEC-2021) Abnormal ECG When compared with ECG of 07-AUG-2022 19:25, Nonspecific T wave abnormality has replaced inverted T waves in Lateral leads Confirmed by EREN PARK ([id number]) on 09/07/2022 12:35:46 PM [facility] Work Phone: EKG Rhythm Stripon 3 [facility] ML [facility] Glucose, Whole Bloodon 09-07 Glucose [Mass/Vol] 164 mg/dL High 74 - 100 mg/dL [facility] Interpretation and review of laboratory results Abnormal [facility] Glucose [Mass/Vol] 157 mg/dL High 74 - 100 mg/dL [facility] Interpretation and review of laboratory results Abnormal [facility] Glucose [Mass/Vol] 167 mg/dL High 74 - 100 mg/dL [facility] Interpretation and review of laboratory results Abnormal [facility] Glucose [Mass/Vol] 116 mg/dL High 74 - 100 mg/dL [facility] Interpretation and review of laboratory results Abnormal [facility] Ammoniaon 09-06-2022 Ammonia (P) [Moles/Vol] 42 umol/L High 11 - 41 umol/L [facility] Interpretation and review of laboratory results Abnormal [facility] BMPon 09-06-2022 Anion gap [Moles/Vol] 11 mmol/L 9 - 17 mmol/L [facility] Calcium [Mass/Vol] 9.9 mg/dL 8.6 - 10. 4 mg/dL [facility] Chloride [Moles/Vol] 94 mmol/L Low 98 - 10 7 mmol/L [facility] CO2 [Moles/Vol] 28 mmol/L 20 - 31 mmol/L [facility] Creatinine [Mass/Vol] 2.27 mg/dL High 0.50 - 0.90 mg/dL [facility] GFR/1.73 sq M.predicted MDRD (S/P/Bld) [Vol rate/Area] 23 mL/min/{1.73_m2} Low - PINF [facility] Comment on above: Effective May 19, 2022 These results are not intended for use in patients <18 years of age. eGFR results are calculated without a race factor using the 2020 CKD-EPI equation. Careful clinical correlation is recommended, particularly when comparing to results calculated using previous equations. The CKD-EPI equation is less accurate in patients with extremes of muscle mass, extra-renal metabolism of creatine, excessive creatine ingestion, or following therapy that affects renal tubular secretion. Glucose [Mass/Vol] 125 mg/dL High 70 - 99 mg/dL [facility] Potassium [Moles/Vol] 5.3 mmol/L 3.7 - 5.3 mmol/L [facility] Sodium [Moles/Vol] 133 mmol/L Low 135 - 144 mmol/L [facility] Urea nitrogen (BldV) [Mass/Vol] 55 mg/dL High 8 - 23 mg/dL [facility] Urea nitrogen/Creatinine (Bld) [Mass ratio] 24 High 9 - 20 [facility] Blood gas, venouson 09-06-19 23 HCO3 (Bld) [Moles/Vol] 25.2 mmol/L 24.0 - 30.0 mmol/L [facility] Interpretation and review of laboratory results Abnormal [facility] Negative Base Excess, Adrian 0.6 mmol/L 0.0 - 2.0 mmol/L [facility] Oxygen saturation in Blood 92.2 % High 60.0 - 85.0 % [facility] pCO2, Adrian 45.4 [facility] pH, Adrian 7.362 7.32 - 7.42 [facility] pO2, Adrian 65.7 High [facility] Pt Temp 37.0 [facility] CBC with Auto Differentialon 09-06-2022 Absolute Eos # 0.13 [place] [facility] Absolute Immature Granulocyte [facility] Absolute Lymph # 1.73 [facility] Absolute Sullivan # 0.70 [facility] RS [facility] Basophils (Bld) [#/Vol] 0.03 10*3/uL [facility] Basophils/100 WBC (Bld) 0 % 0 - 2 % B ON [facility] Eosinophils/100 WBC (Bld) 2 % 1 - 4 % [facility] Hematocrit (Bld) [Volume fraction] 35.7 % Low 36.3 - 47.1 % [facility] Hemoglobin (Bld) [Mass/Vol] 11.4 g/dL Low 11.9 - 15.1 g/dL [facility] Immature granulocytes/100 WBC (Bld) 0 % 0 [facility] Interpretation and review of laboratory results Abnormal [facility] Lymphocytes/100 WBC (Bld) 26 % 24 - 43 % [facility] MCH (RBC) [Entitic mass] 28.3 pg 25. 2 - 33.5 pg [facility] MCHC (RBC) [Mass/Vol] 31.9 g/dL 28.4 - 34.8 g/dL [facility] MCV (RBC) [Entitic vol] 88.6 fL 82.6 - 102.9 fL [facility] Monocytes/100 WBC (Bld) 10 % 3 - 12 % B ON [facility] NRBC Automated 0.0 0.0 per 100 WBC [facility] Platelet distribution width (Bld) [Ratio] 16.5 % High 11.8 - 14.4 % [facility] Platelet mean volume (Bld) [Entitic vol] 9.9 fL 8.1 - 13.5 fL [facility] Platelets (Bld) [#/Vol] 167 10*3/uL [facility] RBC (Bld) [#/Vol] 4.03 10*6/uL 3.95 - 5.1 1 m/uL [facility] Segmented neutrophils/100 WBC (Bld) 62 % 36 - 65 % [facility] Segs Absolute 4.18 [facility] WBC (Bld) [#/Vol] 6.8 10*3/uL [facility] COVID-19, Rapidon 09-06-2022 SARS-CoV-2 (COVID-19) RNA MARIUSZ+probe Ql (Unsp spec) Not detected Not Detected [facility] Comment on above: Rapid NAAT: The specimen is NEGATIVE for SARS-CoV-2, the novel coronavirus associated with COVID-19. The ID NOW COVID-19 assay is designed to detect the virus that causes COVID-19 in patients with signs and symptoms of infection who are suspected of COVID-19. An individual without symptoms of COVID-19 and who is not shedding SARS-CoV-2 virus would expect to have a negative (not detected) result in this assay. Negative results should be treated as presumptive and, if inconsistent with clinical signs and symptoms or necessary for patient management, should be tested with an alternative molecular assay. Negative results do not preclude SARS-CoV-2 infection and should not be used as the sole basis for patient management decisions. Fact sheet for Healthcare Providers: https://www.fda.gov/media/848217/download Fact sheet for Patients: https://www.fda.gov/media/265572/download Methodology: Isothermal Nucleic Acid Amplification Specimen Description .NASOPHARYNGEAL SWAB [facility] CT Head W/O Contraston 09-06 No acute intracranial hemorrhage, mass effect, midline shift, or sign of acute territorial infarct. Chronic ischemic changes in the white matter and generalized volume loss are redemonstrated. [facility] RIS CONSOLIDATED EXAMINATION: CT OF THE HEAD WITHOUT CONTRAST 09/06/2022 9:46 pm TECHNIQUE: CT of the head was performed without the administration of intravenous contrast. Automated exposure control, iterative reconstruction, and/or weight based adjustment of the mA/kV was utilized to reduce the radiation dose to as low as reasonably achievable. COMPARISON: 08/07/2022 HISTORY: ORDERING SYSTEM PROVIDED HISTORY: ams TECHNOLOGIST PROVIDED HISTORY: ams Decision Support Exception - unselect if not a suspected or confirmed emergency medical condition->Emergency Medical Condition (MA) FINDINGS: BRAIN/VENTRICLES: No acute intraparenchymal or extra-axial hemorrhage. There is no mass effect, midline shift, or focal fluid collection. Scattered low attenuation is present in the periventricular white matter and along the internal/external capsules. No territorial loss of the mckoy-white matter junction is identified. General cortical volume loss is present with prominence of the ventricles and sulci. Overall appearance of the brain is stable from the recent prior exam. Atherosclerosis is present in the intracranial arteries. ORBITS: The visualized portion of the orbits demonstrate no acute abnormality. SINUSES: The visualized paranasal sinuses and mastoid air cells demonstrate no acute abnormality. SOFT TISSUES/SKULL: No acute abnormality of the visualized skull or soft tissues. [facility] Manpreet Cochran MD - 09/06/2022 EXAMINATION: CT OF THE HEAD WITHOUT CONTRAST 09/06/2022 9:46 pm TECHNIQUE: CT of the head was performed without the administration of intravenous contrast. Automated exposure control, iterative reconstruction, and/or weight based adjustment of the mA/kV was utilized to reduce the radiation dose to as low as reasonably achievable. COMPARISON: 08/07/2022 HISTORY: ORDERING SYSTEM PROVIDED HISTORY: ams TECHNOLOGIST PROVIDED HISTORY: ams Decision Support Exception - unselect if not a suspected or confirmed emergency medical condition->Emergency Medical Condition (MA) FINDINGS: BRAIN/VENTRICLES: No acute intraparenchymal or extra-axial hemorrhage. There is no mass effect, midline shift, or focal fluid collection. Scattered low attenuation is present in the periventricular white matter and along the internal/external capsules. No territorial loss of the mckoy-white matter junction is identified. General cortical volume loss is present with prominence of the ventricles and sulci. Overall appearance of the brain is stable from the recent prior exam. Atherosclerosis is present in the intracranial arteries. ORBITS: The visualized portion of the orbits demonstrate no acute abnormality. SINUSES: The visualized paranasal sinuses and mastoid air cells demonstrate no acute abnormality. SOFT TISSUES/SKULL: No acute abnormality of the visualized skull or soft tissues. IMPRESSION: No acute intracranial hemorrhage, mass effect, midline shift, or sign of acute territorial infarct. Chronic ischemic changes in the white matter and generalized volume loss are redemonstrated. [facility] Work Phone: Radiology Study observation (narrative) [facility] [employer] Work Phone: CT Head W/O ContrastOrdered By: Manpreet Naidu on 09-06-2022 [facility] [employer] Work Phone: Glucose, Whole Bloodon 09-06 Glucose [Mass/Vol] 118 mg/dL High 74 - 100 mg/dL [facility] [employer] Interpretation and review of laboratory results Abnormal [facility] [employer] Hepatic Function Panelon Albumin [Mass/Vol] 3.3 g/dL Low 3.5 - 5.2 g/dL [facility] [employer] Albumin/Globulin [Mass ratio] 0.8 {ratio} Low 1.0 - 2.5 [facility] [employer] ALP (Bld) [Catalytic activity/Vol] 145 U/L High 35 - 104 U/L [facility] [employer] ALT [Catalytic activity/Vol] 20 U/L 5 - 33 U/L [facility] [employer] AST [Catalytic activity/Vol] 30 U/L NINF - 32 U/L [facility] [employer] Bilirubin [Mass/Vol] 0.5 mg/dL 0.3 - 1 .2 mg/dL [facility] [employer] Bilirubin, Indirect 0.3 mg/dL 0.0 - 1. 0 mg/dL [facility] [employer] Bilirubin.indirect [Mass/Vol] 0.2 mg/dL NINF - 0.3 mg/dL [facility] [employer] Interpretation and review of laboratory results Abnormal [facility] Protein [Mass/Vol] 7.7 g/dL 6.4 - 8.3 g/dL [facility] Lactic Acidon 09-06-2022 Lactate [Moles/Vol] 1.5 mmol/L 0.5 - 2. 2 mmol/L [facility] Interpretation and review of laboratory results Abnormal [facility] Lactate [Moles/Vol] 2.4 mmol/L High 0.5 - 2. 2 mmol/L [facility] [employer] Lipaseon 01-21-2023 Lipase [Catalytic activity/Vol] 13 U/L 13 - 60 U/L [facility] Magnesiumon 09-06-2022 Magnesium [Mass/Vol] 1.4 mg/dL Low 1.6 - 2 .6 mg/dL [facility] Microscopic Urinalysison Bacteria, UA 2+ Abnormal None [facility] Epithelial Cells UA 0 TO 2 [facility] Interpretation and review of laboratory results Abnormal [facility] RBC, UA 0 TO 2 [facility] WBC, UA 20 TO 50 [facility] No Panel Informationon 09-06 [facility] Interpretation and review of laboratory results Abnormal [facility] POCT glucoseon 09-06-2022 Glucose [Mass/Vol] 118 mg/dL [facility] Work Phone: Interpretation and review of laboratory results Normal [facility] Work Phone: QC OK? yes [facility] Work Phone: [facility] Work Phone: Rapid influenza A/B antigens on 09-06-2022 Flu A Antigen Negative NEGATIVE [facility] Comment on above: for Influenza A Anti gen Flu B Antigen Negative NEGATIVE [facility] Comment on above: for Influenza B Anti gen. [facility] Urinalysison 09-06-2022 Bilirubin Urine Negative NEGATIVE [facility] Color, UA Yellow Yellow [facility] Glucose, Ur Negative NEGATIVE [facility] Interpretation and review of laboratory results Abnormal [facility] Ketones Ql (U) Negative NEGATIVE [facility] Leukocyte esterase Test strip Ql (U) MODERATE Abnormal NEGATIVE [facility] Nitrite, Urine Negative NEGATIVE [facility] pH, UA 6.0 5.0 - 9.0 [facility] Protein, UA Negative NEGATIVE [facility] Specific Clay, UA 1.020 1.010 - 1.020 [facility] Turbidity UA Clear Clear [facility] Urine Hgb Negative NEGATIVE [facility] Urobilinogen, Urine Normal Normal [facility] XR CHEST PORTABLEon 09-06-19 Bibasilar infiltrates or subsegmental atelectasis unchanged [facility] RIS CONSOLIDATED EXAMINATION: ONE XRAY VIEW OF THE CHEST 09/06/2022 8:57 pm COMPARISON: August 07, 2022 HISTORY: ORDERING SYSTEM PROVIDED HISTORY: shortness of breath TECHNOLOGIST PROVIDED HISTORY: shortness of breath FINDINGS: Cervical hardware. Elevated right hemidiaphragm. Bibasilar infiltrates or subsegmental atelectasis unchanged. Increased interstitial markings. Heart and mediastinum normal. Bony thorax intact. [facility] RIS CONSOLIDATED Kyler Toro MD - 09/06/2022 EXAMINATION: ONE XRAY VIEW OF THE CHEST 09/06/2022 8:57 pm COMPARISON: August 07, 2022 HISTORY: ORDERING SYSTEM PROVIDED HISTORY: shortness of breath TECHNOLOGIST PROVIDED HISTORY: shortness of breath FINDINGS: Cervical hardware. Elevated right hemidiaphragm. Bibasilar infiltrates or subsegmental atelectasis unchanged. Increased interstitial markings. Heart and mediastinum normal. Bony thorax intact. IMPRESSION: Bibasilar infiltrates or subsegmental atelectasis unchanged [facility] [employer] Work Phone: Radiology Study observation (narrative) [facility] [employer] Work Phone: XR CHEST PORTABLEOrdered By: Kyler Toro on 09-06-2022 [facility] [employer] Work Phone: Urinalysis with Microscopico n 08-21-2022 Bacteria, UA 2+ Abnormal None [facility] Bilirubin Urine Negative NEGATIVE [facility] [employer] Color, UA Yellow Yellow [facility] Epithelial Cells UA 2 TO 5 [facility] Glucose, Ur Negative NEGATIVE [facility] Interpretation and review of laboratory results Abnormal [facility] Ketones Ql (U) Negative NEGATIVE [facility] Leukocyte esterase Test strip Ql (U) SMALL Abnormal NEGATIVE [facility] Nitrite, Urine Negative NEGATIVE [facility] pH, UA 7.0 5.0 - 9.0 [facility] Protein, UA Negative NEGATIVE [facility] RBC, UA 0 TO 2 [facility] Specific Clay, UA 1.010 1.010 - 1.020 [facility] Turbidity UA Clear Clear [facility] Urine Hgb Negative NEGATIVE [facility] Urobilinogen, Urine Normal Normal [facility] WBC, UA 10 TO 20 [facility] Ammoniaon 08-20-2022 Ammonia (P) [Moles/Vol] 30 umol/L 11 - 41 umol/L [facility] CBC with Auto Differentialon 08-20-2022 [facility] Absolute Immature Granulocyte [facility] Absolute Lymph # 1.85 [facility] Absolute Sullivan # 0.41 [facility] RS [facility] Basophils (Bld) [#/Vol] 0.03 10*3/uL [facility] Basophils/100 WBC (Bld) 1 % 0 - 2 % B ON [facility] Eosinophils/100 WBC (Bld) 1 % 1 - 4 % [facility] Hematocrit (Bld) [Volume fraction] 31.9 % Low 36.3 - 47.1 % [facility] Hemoglobin (Bld) [Mass/Vol] 10.3 g/dL Low 11.9 - 15.1 g/dL [facility] Immature granulocytes/100 WBC (Bld) 0 % 0 [facility] Interpretation and review of laboratory results Abnormal [facility] Lymphocytes/100 WBC (Bld) 38 % 24 - 43 % [facility] MCH (RBC) [Entitic mass] 28.6 pg 25. 2 - 33.5 pg [facility] MCHC (RBC) [Mass/Vol] 32.3 g/dL 28.4 - 34.8 g/dL [facility] MCV (RBC) [Entitic vol] 88.6 fL 82.6 - 102.9 fL [facility] Monocytes/100 WBC (Bld) 9 % 3 - 12 % B ON [facility] NRBC Automated 0.0 0.0 per 100 WBC [facility] Platelet distribution width (Bld) [Ratio] 15.6 % High 11.8 - 14.4 % [facility] [facility] Platelet mean volume (Bld) [Entitic vol] 10.2 fL 8.1 - 13.5 fL [facility] Platelets (Bld) [#/Vol] 115 10*3/uL Low [facility] RBC (Bld) [#/Vol] 3.60 10*6/uL Low 3.95 - 5.1 1 m/uL [facility] Segmented neutrophils/100 WBC (Bld) 51 % 36 - 65 % [facility] Segs Absolute 2.47 [facility] WBC (Bld) [#/Vol] 4.8 10*3/uL [facility] Comprehensive Metabolic Pane roger 08-20-2022 Albumin [Mass/Vol] 3.6 g/dL 3.5 - 5.2 g/dL [facility] Albumin/Globulin [Mass ratio] 1.1 {ratio} 1.0 - 2.5 [facility] ALP (Bld) [Catalytic activity/Vol] 83 U/L 35 - 104 U/L [facility] ALT [Catalytic activity/Vol] 12 U/L 5 - 33 U/L [facility] Anion gap [Moles/Vol] 11 mmol/L 9 - 17 mmol/L [facility] AST [Catalytic activity/Vol] 21 U/L NINF - 32 U/L [facility] Bilirubin [Mass/Vol] 0.3 mg/dL 0.3 - 1 .2 mg/dL [facility] Calcium [Mass/Vol] 8.2 mg/dL Low 8.6 - 10. 4 mg/dL [facility] Chloride [Moles/Vol] 94 mmol/L Low 98 - 10 7 mmol/L [facility] CO2 [Moles/Vol] 30 mmol/L 20 - 31 mmol/L [facility] Creatinine [Mass/Vol] 1.45 mg/dL High 0.50 - 0.90 mg/dL [facility] GFR/1.73 sq M.predicted MDRD (S/P/Bld) [Vol rate/Area] 40 mL/min/{1.73_m2} Low - PINF [facility] Comment on above: Effective May 19, 2022 These results are not intended for use in patients <18 years of age. eGFR results are calculated without a race factor using the 2020 CKD-EPI equation. Careful clinical correlation is recommended, particularly when comparing to results calculated using previous equations. The CKD-EPI equation is less accurate in patients with extremes of muscle mass, extra-renal metabolism of creatine, excessive creatine ingestion, or following therapy that affects renal tubular secretion. Glucose [Mass/Vol] 92 mg/dL 70 - 99 mg/dL [facility] Interpretation and review of laboratory results Abnormal [facility] Potassium [Moles/Vol] 4.9 mmol/L 3.7 - 5.3 mmol/L [facility] Protein [Mass/Vol] 7.0 g/dL 6.4 - 8.3 g/dL [facility] Sodium [Moles/Vol] 135 mmol/L 135 - 144 mmol/L [facility] Urea nitrogen (BldV) [Mass/Vol] 30 mg/dL High 8 - 23 mg/dL [facility] Urea nitrogen/Creatinine (Bld) [Mass ratio] 21 High 9 - 20 [facility] AFP Tumor Markeron 2 AFP (Alpha Fetoprotein) 1.6 ug/L NINF - 8.4 ug/L [facility] Comment on above: The Ji ECLIA as say is used. Results obtained with different assay methods cannot be used interchangeably. [facility] CBCon 05-01-2022 Hematocrit (Bld) [Volume fraction] 37.6 % 36.3 - 47.1 % [facility] Hemoglobin (Bld) [Mass/Vol] 11.4 g/dL Low 11.9 - 15.1 g/dL [facility] Interpretation and review of laboratory results Abnormal [facility] MCH (RBC) [Entitic mass] 27.9 pg 25. 2 - 33.5 pg [facility] MCHC (RBC) [Mass/Vol] 30.3 g/dL 28.4 - 34.8 g/dL [facility] MCV (RBC) [Entitic vol] 92.2 fL 82.6 - 102.9 fL [facility] NRBC Automated 0.0 0.0 per 100 WBC [facility] Platelet distribution width (Bld) [Ratio] 15.1 % High 11.8 - 14.4 % [facility] Platelet mean volume (Bld) [Entitic vol] 10.2 fL 8.1 - 13.5 fL [facility] Platelets (Bld) [#/Vol] 113 10*3/uL Low [facility] RBC (Bld) [#/Vol] 4.08 10*6/uL 3.95 - 5.1 1 m/uL [facility] WBC (Bld) [#/Vol] 3.4 10*3/uL Low [facility] Comprehensive Metabolic Pane l with Bilirubinon 05-01-2022 Albumin [Mass/Vol] 3.9 g/dL 3.5 - 5.2 g/dL [facility] Albumin/Globulin [Mass ratio] 1.3 {ratio} 1 - 2.5 [facility] ALP (Bld) [Catalytic activity/Vol] 122 U/L High 35 - 104 U/L [facility] ALT [Catalytic activity/Vol] 23 U/L 5 - 33 U/L [facility] Anion gap [Moles/Vol] 12 mmol/L 9 - 17 mmol/L [facility] AST [Catalytic activity/Vol] 28 U/L NINF - 32 U/L [facility] Bilirubin [Mass/Vol] 0.4 mg/dL 0.3 - 1 .2 mg/dL [facility] Bilirubin, Indirect Can not be calculated 0 - 1 mg/dL [facility] Bilirubin.indirect [Mass/Vol] mg/dL NINF - 0.31 mg/dL [facility] Calcium [Mass/Vol] 9.5 mg/dL 8.6 - 10. 4 mg/dL [facility] Chloride [Moles/Vol] 103 mmol/L 98 - 10 7 mmol/L [facility] CO2 [Moles/Vol] 25 mmol/L 20 - 31 mmol/L [facility] Creatinine [Mass/Vol] 1.32 mg/dL High 0.5 - 0.9 mg/dL [facility] Free PSA/Total PSA [Mass fraction] 6.9 g/dL 6.4 - 8.3 g/dL [facility] GFR 49 mL/min Low 60 - PI NF mL/min [facility] GFR Non- 40 mL/min Low 60 - PINF mL/min [facility] Glucose [Mass/Vol] 148 mg/dL High 70 - 99 mg/dL [facility] Interpretation and review of laboratory results Abnormal [facility] Potassium [Moles/Vol] 5.0 mmol/L 3.7 - 5.3 mmol/L [facility] Sodium [Moles/Vol] 140 mmol/L 135 - 144 mmol/L [facility] Urea nitrogen (BldV) [Mass/Vol] 23 mg/dL 8 - 23 mg/dL [facility] Laboratory - Chemistry and C hemistry - challengeon 05-01-2022 GFR/1.73 sq M.predicted MDRD (S/P/Bld) [Vol rate/Area] [facility] Comment on above: Average GFR for 60-6 9 years old: 85 mL/min/1.73sq m Chronic Kidney Disease: <60 mL/min/1.73sq m Kidney failure: <15 mL/min/1.73sq m eGFR calculated using average adult body mass. Additional eGFR calculator available at: http://www.onkea.[employer]/multiple_crcl_2012.htm Stage 1: Some kidney damage normal GFR Stage 2: Mild kidney damage GFR 60-89 Stage 3: Moderate kidney damage GFR 30-59 Stage 4: Severe kidney damage GFR 15-29 Stage 5: Severe kidney damage GFR <15 ESRD - chronic treatment by dialysis or transplant Protime-INRon 05-01-2022 INR Coag (Bld) [Relative time] 1.1 {INR} [facility] Comment on above: Non-therapeutic Range: INR = 0.9-1.2 Therapeutic Range: Moderate Anticoagulant Intensity: INR = 2.0-3.0 High Anticoagulant Intensity: INR = 2.5-3.5 Interpretation and review of laboratory results Abnormal [facility] PT Coag (PPP) [Time] 14.5 s High [facility] US LIVERon 05-01-2022 Hepatic cirrhosis. No focal lesion. Cholelithiasis with positive sonographic Spear's sign. No gallbladder wall thickening or pericholecystic fluid. Correlate clinically for possible cholecystitis. [facility] EXAMINATION: RIGHT UPPER QUADRANT ULTRASOUND 05/01/2022 9:23 am COMPARISON: December 31, 2021 HISTORY: ORDERING SYSTEM PROVIDED HISTORY: Other cirrhosis of liver (HCC) FINDINGS: LIVER: Heterogeneous echotexture liver with nodular margin would suggest cirrhosis. No focal lesion. Hepatopetal flow portal vein. Liver 15.7 cm in length. BILIARY SYSTEM: Gallstones in the gallbladder. Positive sonographic Spear's sign. No wall thickening or pericholecystic fluid. Common bile duct is within normal limits measuring 3.2 mm. RIGHT KIDNEY: The right kidney is grossly unremarkable without evidence of hydronephrosis. PANCREAS: Visualized portions of the pancreas are unremarkable. OTHER: No evidence of right upper quadrant ascites. [facility] Aniceto Coronel, - 05/01/2022 EXAMINATION: RIGHT UPPER QUADRANT ULTRASOUND 05/01/2022 9:23 am COMPARISON: December 31, 2021 HISTORY: ORDERING SYSTEM PROVIDED HISTORY: Other cirrhosis of liver (HCC) FINDINGS: LIVER: Heterogeneous echotexture liver with nodular margin would suggest cirrhosis. No focal lesion. Hepatopetal flow portal vein. Liver 15.7 cm in length. BILIARY SYSTEM: Gallstones in the gallbladder. Positive sonographic Spear's sign. No wall thickening or pericholecystic fluid. Common bile duct is within normal limits measuring 3.2 mm. RIGHT KIDNEY: The right kidney is grossly unremarkable without evidence of hydronephrosis. PANCREAS: Visualized portions of the pancreas are unremarkable. OTHER: No evidence of right upper quadrant ascites. IMPRESSION: Hepatic cirrhosis. No focal lesion. Cholelithiasis with positive sonographic Spear's sign. No gallbladder wall thickening or pericholecystic fluid. Correlate clinically for possible cholecystitis. [facility] Work Phone: Radiology Study observation (narrative) NEFTALI ALANIZ [facility] Work Phone: US LIVEROrdered By: Aniceto fay on 05-01-2022 NEFTALI ANDERSON [facility] Work Phone: [employer] SURG[employer] PROCEDUR ESon 03-18-2022 Radiology exam is complete. No Radiologist dictation. Please follow up with ordering provider. [facility] [employer] ESon 01-21-2022 Radiology exam is complete. No Radiologist dictation. Please follow up with ordering provider. [facility] VONDA DIGITAL SCREEN BILA TERALon 01-01-2022 Stable exam BIRADS: BIRADS - CATEGORY 2 Benign Findings. Normal interval follow-up is recommended in 12 months. OVERALL ASSESSMENT - BENIGN A letter of notification will be sent to the patient regarding the results. [employer] recommends annual mammograms for women 40 years and older. [facility] EXAMINATION: SCREENING DIGITAL BILATERAL MAMMOGRAM WITH TOMOSYNTHESIS, 12/31/2021 TECHNIQUE: Screening mammography was performed with tomosynthesis including MLO and CC views of the bilateral breasts. Computer aided detection was used for the interpretation of this exam. COMPARISON: September 12, 2019 HISTORY: Screening. FINDINGS: Breasts are composed of scattered fibroglandular density. There is no dominant mass, architectural distortion or concerning grouping of microcalcification in either breast. Stable asymmetry upper outer right breast. [facility] VONDA DIGITAL SCREEN BILA TERALOrdered By: Aniceto Coronel on 01-01-2022 [facility] Work Phone: [facility] VONDA DIGITAL SCREEN BILA TERALon 12-31-2021 Radiology Study observation (narrative) [facility] Work Phone: US LIVERon 12-31-2021 Liver shows increased echogenicity suggesting hepatic steatosis without focal lesion. Cholelithiasis with contracted gallbladder. Patient reportedly not NPO. Positive sonographic Spear's sign. Correlate clinically for possible cholecystitis. [facility] EXAMINATION: RIGHT UPPER QUADRANT ULTRASOUND 12/31/2021 9:11 am COMPARISON: None. HISTORY: ORDERING SYSTEM PROVIDED HISTORY: Hepatic cirrhosis, unspecified hepatic cirrhosis type, unspecified whether ascites present (HCC) TECHNOLOGIST PROVIDED HISTORY: Cirrhosis liver FINDINGS: LIVER: Liver shows increased echogenicity suggesting hepatic steatosis without focal lesion. BILIARY SYSTEM: Gallstones in the gallbladder. Gallbladder is contracted with positive sonographic Spear's sign reported. No pericholecystic fluid. Common bile duct is within normal limits measuring 3.2 mm. RIGHT KIDNEY: The right kidney is grossly unremarkable without evidence of hydronephrosis. PANCREAS: Visualized portions of the pancreas are unremarkable. OTHER: No evidence of right upper quadrant ascites. [facility] Aniceto Coronel, DO - 12/31/2021 EXAMINATION: RIGHT UPPER QUADRANT ULTRASOUND 12/31/2021 9:11 am COMPARISON: None. HISTORY: ORDERING SYSTEM PROVIDED HISTORY: Hepatic cirrhosis, unspecified hepatic cirrhosis type, unspecified whether ascites present (HCC) TECHNOLOGIST PROVIDED HISTORY: Cirrhosis liver FINDINGS: LIVER: Liver shows increased echogenicity suggesting hepatic steatosis without focal lesion. BILIARY SYSTEM: Gallstones in the gallbladder. Gallbladder is contracted with positive sonographic Spear's sign reported. No pericholecystic fluid. Common bile duct is within normal limits measuring 3.2 mm. RIGHT KIDNEY: The right kidney is grossly unremarkable without evidence of hydronephrosis. PANCREAS: Visualized portions of the pancreas are unremarkable. OTHER: No evidence of right upper quadrant ascites. IMPRESSION: Liver shows increased echogenicity suggesting hepatic steatosis without focal lesion. Cholelithiasis with contracted gallbladder. Patient reportedly not NPO. Positive sonographic Spear's sign. Correlate clinically for possible cholecystitis. [employer] Work Phone: Radiology Study observation (narrative) [employer] Work Phone: US LIVEROrdered By: Aniceto fay on 12-31-2021 [employer] Work Phone: APTTon 12-27-2021 aPTT Coag (Bld) [Time] 31.3 s Al [employer] Comment on above: IV Heparin Therapy Range: 62.0-94.0 [employer] CBC with Auto Differentialon 12-27-2021 Absolute Eos # 0.04 [facility] Comment on above: CORRECTED ON 12/27 A T 1023: PREVIOUSLY REPORTED 0.03 Absolute Immature Granulocyte 0.00 [employer] Comment on above: CORRECTED ON 12/27 A T 1023: PREVIOUSLY REPORTED <0.03 Absolute Lymph # 1.20 [facility] Comment on above: CORRECTED ON 12/27 A T 1023: PREVIOUSLY REPORTED 1.21 Absolute Sullivan # 0.26 [facility] Comment on above: CORRECTED ON 12/27 A T 1023: PREVIOUSLY REPORTED 0.27 Basophils (Bld) [#/Vol] 0.00 10*3/uL [facility] Comment on above: CORRECTED ON 12/27 A T 1023: PREVIOUSLY REPORTED <0.03 Basophils/100 WBC (Bld) 0 % 0 - 2 % [facility] Eosinophils/100 WBC (Bld) 1 % 1 - 4 % [facility] [place] Hematocrit (Bld) [Volume fraction] 37.3 % 36.3 - 47.1 % [facility] Hemoglobin.gastrointesti nal spec 1 Ql (Stl) 11.6 g/dL Low 11.9 - 15.1 g/dL [facility] [employer] Immature granulocytes/100 WBC (Bld) 0 % 0 [facility] [place] Interpretation and review of laboratory results Abnormal [facility] Lymphocytes/100 WBC (Bld) 28 % 24 - 43 % [facility] [place] MCH (RBC) [Entitic mass] 27.8 pg 25. 2 - 33.5 pg [facility] [place] MCHC (RBC) [Mass/Vol] 31.1 g/dL 28.4 - 34.8 g/dL [facility] [place] MCV (RBC) [Entitic vol] 89.2 fL 82.6 - 102.9 fL [facility] [place] Monocytes/100 WBC (Bld) 6 % 3 - 12 % [facility] [employer] Morphology Lucio (Bld) [Interp] Platelet scan shows Decreased Platelets [facility] [place] NRBC Automated 0.0 0.0 per 100 WBC [facility] [place] Platelet distribution width (Bld) [Ratio] 14.9 % High 11.8 - 14.4 % [facility] [place] Platelets (Bld) [#/Vol] See Reflexed IPF Result [facility] RBC (Bld) [#/Vol] 4.18 10*6/uL 3.95 - 5.1 1 m/uL [facility] [place] Segmented neutrophils/100 WBC (Bld) 65 % 36 - 65 % [facility] [employer] Segs Absolute 2.80 [facility] Comment on above: CORRECTED ON 12/27 A T 1023: PREVIOUSLY REPORTED 2.78 WBC (Bld) [#/Vol] 4.3 10*3/uL [facility] Comprehensive Metabolic Pane l w/ Reflex to MGon 12-27-2021 Albumin [Mass/Vol] 3.6 g/dL 3.5 - 5.2 g/dL [facility] [place] Albumin/Globulin [Mass ratio] 1.0 {ratio} [facility] ALP (Bld) [Catalytic activity/Vol] 114 U/L High 35 - 104 U/L [facility] ALT [Catalytic activity/Vol] 18 U/L 5 - 33 U/L [facility] Anion gap [Moles/Vol] 10 mmol/L 9 - 17 mmol/L [facility] AST [Catalytic activity/Vol] 23 U/L <32 [facility] Bilirubin [Mass/Vol] 0.50 mg/dL 0.3 - 1 .2 mg/dL [facility] Calcium [Mass/Vol] 9.3 mg/dL 8.6 - 10. 4 mg/dL [facility] [place] Chloride [Moles/Vol] 97 mmol/L Low 98 - 10 7 mmol/L [facility] CO2 [Moles/Vol] 26 mmol/L 20 - 31 mmol/L [facility] Creatinine [Mass/Vol] 1.47 mg/dL High 0.50 - 0.90 mg/dL [facility] Free PSA/Total PSA [Mass fraction] 7.1 g/dL 6.4 - 8.3 g/dL [facility] GFR 43 mL/min Low >60 [facility] GFR Non- 35 mL/min Low >60 [facility] Glucose [Mass/Vol] 263 mg/dL High 70 - 99 mg/dL [facility] [place] Interpretation and review of laboratory results Abnormal [facility] Potassium [Moles/Vol] 5.2 mmol/L 3.7 - 5.3 mmol/L [facility] Sodium [Moles/Vol] 133 mmol/L Low 135 - 144 mmol/L [facility] [place] Urea nitrogen (BldV) [Mass/Vol] 24 mg/dL High 8 - 23 mg/dL [facility] Urea nitrogen/Creatinine (Bld) [Mass ratio] [address] [facility] EKG 12 LeadOrdered By: Jeyson martino on 12-27-2021 Atrial Rate 59 BPM [facility] [place] Work Phone: P Henderson 45 degrees [facility] Work Phone: P-R Interval 148 ms [employer] Work Phone: Q-T Interval 442 ms [employer] Work Phone: QRS Duration 90 ms [facility] [employer] Work Phone: QTc Calculation (Bazett) 437 ms [employer] Work Phone: R Henderson 4 degrees [facility] [employer] Work Phone: T Henderson 81 degrees [employer] Work Phone: Ventricular Rate 59 BPM [employer] Work Phone: [employer] Work Phone: EKG 12 Leadon 12-27-2021 Sinus bradycardia Cannot rule out Inferior infarct , age undetermined Cannot rule out Anterior infarct , age undetermined Abnormal ECG When compared with ECG of 08-AUG-2021 22:11, Criteria for inferior infarction is now present. Confirmed by Jeyson Dickson MD ([id number]) on 12/27/2021 11:16:01 AM [facility] Jeyson Dickson MD - 12/27/2021 Sinus bradycardia Cannot rule out Inferior infarct , age undetermined Cannot rule out Anterior infarct , age undetermined Abnormal ECG When compared with ECG of 08-AUG-2021 22:11, Criteria for inferior infarction is now present. Confirmed by Jeyson Dickson MD ([id number]) on 12/27/2021 11:16:01 AM [employer] Work Phone: Immature Platelet Fractionon 12-27-2021 Interpretation and review of laboratory results Abnormal [employer] Platelet, Fluorescence [address] [facility] Platelet, Immature Fraction 3.9 % 1.1 - 10.3 % [facility] [employer] Laboratory - Chemistry and C hemistry - challengeon 12-27-2021 GFR/1.73 sq M.predicted MDRD (S/P/Bld) [Vol rate/Area] [employer] Comment on above: Average GFR for 60-6 9 years old: 85 mL/min/1.73sq m Chronic Kidney Disease: <60 mL/min/1.73sq m Kidney failure: <15 mL/min/1.73sq m eGFR calculated using average adult body mass. Additional eGFR calculator available at: http://www.[email or web address]/multiple_crcl_2012.htm Stage 1: Some kidney damage normal GFR Stage 2: Mild kidney damage GFR 60-89 Stage 3: Moderate kidney damage GFR 30-59 Stage 4: Severe kidney damage GFR 15-29 Stage 5: Severe kidney damage GFR <15 ESRD - chronic treatment by dialysis or transplant Microscopic Urinalysison - [employer] Bacteria, UA 1+ Abnormal None [employer] Casts UA 0 TO 2 FINE GRANULAR /LPF [place] [facility] Epithelial Cells UA 2 TO 5 [employer] Interpretation and review of laboratory results Abnormal [employer] Mucus, UA TRACE Abnormal None [employer] RBC, UA None [employer] WBC, UA None codetag No Panel Informationon 12-27 Left humerus: Arthritic changes in the shoulder. Fracture or dislocation. Chest: Chronic opacities at the bases. Scar versus atelectasis. Other findings as above. Pelvis and left hip: Arthritic changes in the hips. No acute fracture or dislocation. [facility] EXAMINATION: TWO XRAY VIEWS OF THE LEFT HUMERUS; ONE XRAY VIEW OF THE CHEST; ONE XRAY VIEW OF THE PELVIS AND TWO XRAY VIEWS LEFT HIP 12/27/2021 9:59 am COMPARISON: Chest 14 August 2021 HISTORY: ORDERING SYSTEM PROVIDED HISTORY: pain, s/p fall TECHNOLOGIST PROVIDED HISTORY: pain, s/p fall FINDINGS: Left humerus: Osteopenia is present. Mild degenerative changes are present in the glenohumeral and acromioclavicular areas of the shoulder joint. No acute fracture or dislocation is noted. Chest: AP portable view of the chest time stamped at 957 hours demonstrates low lung volumes linear opacities consistent with atelectasis and/or scar, similar to prior study. Heart size top-normal. No overt edema, effusion or extrapleural air. Degenerative changes in the spine. Compression plate and screws at the base of the neck. Distal right clavicle is resected. Mediastinal contours are unremarkable. Pelvis and left hip: Osteopenia. Mild to moderate degenerative changes in the hips without acute fracture, dislocation or effusion. SI joints are symmetrical. Advanced degenerative changes in the spine. [facility] Deb Mercer MD - 12/27/2021 EXAMINATION: TWO XRAY VIEWS OF THE LEFT HUMERUS; ONE XRAY VIEW OF THE CHEST; ONE XRAY VIEW OF THE PELVIS AND TWO XRAY VIEWS LEFT HIP 12/27/2021 9:59 am COMPARISON: Chest 14 August 2021 HISTORY: ORDERING SYSTEM PROVIDED HISTORY: pain, s/p fall TECHNOLOGIST PROVIDED HISTORY: pain, s/p fall FINDINGS: Left humerus: Osteopenia is present. Mild degenerative changes are present in the glenohumeral and acromioclavicular areas of the shoulder joint. No acute fracture or dislocation is noted. Chest: AP portable view of the chest time stamped at 957 hours demonstrates low lung volumes linear opacities consistent with atelectasis and/or scar, similar to prior study. Heart size top-normal. No overt edema, effusion or extrapleural air. Degenerative changes in the spine. Compression plate and screws at the base of the neck. Distal right clavicle is resected. Mediastinal contours are unremarkable. Pelvis and left hip: Osteopenia. Mild to moderate degenerative changes in the hips without acute fracture, dislocation or effusion. SI joints are symmetrical. Advanced degenerative changes in the spine. IMPRESSION: Left humerus: Arthritic changes in the shoulder. Fracture or dislocation. Chest: Chronic opacities at the bases. Scar versus atelectasis. Other findings as above. Pelvis and left hip: Arthritic changes in the hips. No acute fracture or dislocation. [employer] Work Phone: Radiology Study observation (narrative) [facility] Work Phone: No Panel InformationOrdered By: Deb Mercer on 12-27-2021 [employer] Work Phone: Protime-INRon 12-27-2021 INR Coag (Bld) [Relative time] 1.2 {INR} [employer] Comment on above: Non-therapeutic Range: INR = 0.9-1.2 Therapeutic Range: Moderate Anticoagulant Intensity: INR = 2.0-3.0 High Anticoagulant Intensity: INR = 2.5-3.5 Interpretation and review of laboratory results Abnormal [employer] PT Coag (PPP) [Time] 14.8 s High [facility] Troponinon 12-27-2021 Troponin, High Sensitivity 9 ng/L 0 - 14 ng/L [employer] Comment on above: High Sensitivity Troponin values cannot be compared with other Troponin methodologies. Patients with high levels of Biotin oral intake (i.e >5mg/day) may have falsely decreased Troponin levels. Samples collected within 8 hours of biotin intake may require additional information for diagnosis. [employer] Urinalysis with Reflex to Cu ltureon 12-27-2021 Bilirubin Urine Negative NEGATIVE ralalia lt Color, UA Yellow Yellow [facility] [employer] [place] Glucose, Ur Negative NEGATIVE [employer] Ketones Ql (U) Negative NE[facility]IVE [facility] Leukocyte esterase Test strip Ql (U) Negative NEGATIVE [employer] Nitrite, Urine Negative NEGATIVE [facility] pH, UA 6.0 [employer] Protein, UA Negative NEGATIVE [employer] Specific Clay, UA 1.020 [place] [facility] Turbidity UA Clear Clear [facility] Urine Hgb Negative NEGATIVE [employer] Urobilinogen, Urine Normal Normal [facility] Valproic Acid Level, Totalon 12-27-2021 Valproic Acid Lvl 56 ug/mL 50 - 125 ug/mL [facility] [employer] [place] XR CHEST PORTABLEon 12-28-19 22 Radiology Study observation (narrative) [employer] Work Phone: Gastroenterology Office/Clin ic Noteon 12-24-2021 Gastroenterology Office/Clinic Note Chief Complaint pt states fatty liver cirrhosis Appropriate consent was obtained over the phone. Patient was identified with 2 identifiers including name, date of . History of Present Illness This is regarding a 66-year-old woman with cirrhosis, fatty liver who is being evaluated as a follow-up via telephone visit. Last seen in our GI clinic on May 06, 2021. Previous note attached below for reference: History of Present Illness This is regarding a 65-year-old lady with multiple medical problems including hypertension dyslipidemia diabetes question TIA versus a stroke who presented for evaluation of cirrhosis. Patient reported that she had a fall approximately a month ago and she was taken to different hospital where on evaluation on imaging she was found to have cirrhosis of the liver. I do not have all those records at present and this is all per patient reported history. She denied any known history of cirrhosis in the past. Denied any evidence of hepatic decompensation clinically. She does have a known history of nonalcoholic fatty liver disease and and followed up with her PCP. Denied any history of alcohol use disorder, herbal or hormonal supplement use. Reported a remote history of marijuana use in the past. No family history of liver disease. No nausea, vomiting, jaundice or any clinical stigmata of hepatic decompensation. Reported intermittent episodes of right upper quadrant abdominal pain, 5 out of 10 in intensity, nonradiating, without any specific relieving or aggravating factors. Denied any fever or chills, NSAID use. [1] Interval summary December 24, 2021: Reported constipation. No overt GI bleeding, nausea, vomiting, fever or chills. EGD done on November 13, 2021 showed small esophageal varices?grade 1, multiple prepyloric erosions versus beginning of gave?gastric biopsies negative. Review of Systems 10 point review of systems negative except as mentioned in interval summary dated December 24, 2021 Physical Exam Deferred as it was a telephone visit Additional Vitals No qualifying data available. Assessment/Plan 1. Cirrhosis 2. Esophageal varices 3. Fatty liver Work-up done so far reviewed. Mildly positive AMA antibody, normal alkaline phosphatase?could be in setting of fatty liver. Continue 2 g sodium restricted, low-fat, high-protein diet. Repeat EGD in 6 months for continued surveillance. Recommend vaccination against hepatitis A and B?can get it done with PCP or health department. Abdominal imaging and AFP every 6 months for HCC screening - due - ordered Avoid hepatotoxic medications. Start lactulose titrated to achieve at least 1-2 soft bowel movements every day. Continue strict abstinence from alcohol, herbal/hormonal supplements and all drugs of abuse. Update labs to assess meld score. No family hx of GI malignancy. Had a colonoscopy in [place], [place] approximately 1 yr ago - will obtain record. Medical Decision Making Chronic conditions NOT treated during this visit that affected my overall medical decision making: no Treatment plans discussed but not opted for at this time: no Prescribed medication that requires intensive monitoring for toxicity: no I have reviewed the patient?s medication list for medication interactions/contrai ndications and/or for upcoming procedures: yes Time Spent with the Patient I have personally spent 30 minutes on this date, directly related to today's patient visit, including pre and post visit work, for this date of service. Time listed does not include time spent on separately billable services. Problem List/Past Medical History Ongoing Cancer, hepatocellular Chronic kidney disease Cirrhosis COPD (chronic obstructive pulmonary disease) Diabetes Diabetes Esophageal varices Fatty liver Immunity status testing Manic depression Historical No qualifying data Procedure/Surgical History Benign mass removal x2 Cervical Fusion section Colonoscopy Esophagogastroduoden oscopy REPAIR DETACHED RETINA REPAIR OF SHOULDER Esophagogastroduodon oscopy with Band Ligation (07/09/2021) Esophagogastroduoden oscopy Biopsy (11/13/2021) Medications atenolol 25 mg oral tablet atorvastatin 80 mg oral tablet baclofen 10 mg oral tablet Breo Ellipta 200 mcg-25 mcg/inh inhalation powder, 1 puffs, Inhale, Daily Calcium, Magnesium and Zinc oral tablet, 1 tabs, Oral, Daily CBD cream CBD oil divalproex sodium 250 mg oral tablet, extended release ferrous sulfate 325 mg (65 mg elemental iron) oral delayed release tablet, 325 mg= 1 tabs, Oral, Daily fexofenadine 180 mg oral tablet, 180 mg= 1 tabs, Oral, Daily Fish Oil, Oral Flonase, Daily FLUoxetine 10 mg oral capsule, 30 mg= 3 caps, Oral, Daily gabapentin 100 mg oral capsule GlycoLax, 17 g, Oral, Daily hyaluronic acid Levemir FlexTouch 100 units/mL subcutaneous solution lisinopril 5 mg oral tablet melatonin 10 mg oral capsule, 10 mg= 1 caps, Oral, HS (at bedtime) metFORMIN (more content not included)... Normal [facility] FLUORO FOR SURGICAL PROCEDUR ESon 11-26-2021 Radiology exam is complete. No Radiologist dictation. Please follow up with ordering provider. [facility] POC Glucose Randomon 022 Glucose [Mass/Vol] 143 mg/dL High 70-[address] [facility] Comment on above: Performed By: #### L CARLOS #### [facility] [address] [place] [id number] MRI BRAIN WO CONTRASTon -3 1. No acute infarct or acute intracranial process identified. 2. Mild diffuse cerebral volume loss and mild chronic small vessel ischemic changes. [facility] EXAMINATION: MRI OF THE BRAIN WITHOUT CONTRAST 08/15/2021 9:45 am TECHNIQUE: Multiplanar multisequence MRI of the brain was performed without the administration of intravenous contrast. COMPARISON: CT brain 08/14/2021. HISTORY: ORDERING SYSTEM PROVIDED HISTORY: Altered TECHNOLOGIST PROVIDED HISTORY: Altered Decision Support Exception - unselect if not a suspected or confirmed emergency medical condition->Emergency Medical Condition (MA) FINDINGS: INTRACRANIAL STRUCTURES/VENTRICLE S: There are no areas of restricted diffusion identified to suggest an acute infarct. There is no acute intracranial hemorrhage. No mass effect or midline shift is present. There is mild diffuse cerebral volume loss. There are multiple foci of abnormal increased T2/FLAIR signal intensity within the periventricular and deep white matter of both hemispheres. There is no abnormal extra-axial fluid collection. There is no sellar or suprasellar mass present. The proximal portions of the [place] demonstrate normal flow voids. ORBITS: Limited evaluation of the orbits is unremarkable. SINUSES: The paranasal sinuses and mastoid air cells are clear. BONES/SOFT TISSUES: The bone marrow signal intensity appears normal. The soft tissues demonstrate no acute abnormality. [facility] Kwame Sky MD - 08/15/2021 EXAMINATION: MRI OF THE BRAIN WITHOUT CONTRAST 08/15/2021 9:45 am TECHNIQUE: Multiplanar multisequence MRI of the brain was performed without the administration of intravenous contrast. COMPARISON: CT brain 08/14/2021. HISTORY: ORDERING SYSTEM PROVIDED HISTORY: Altered TECHNOLOGIST PROVIDED HISTORY: Altered Decision Support Exception - unselect if not a suspected or confirmed emergency medical condition->Emergency Medical Condition (MA) FINDINGS: INTRACRANIAL STRUCTURES/VENTRICLE S: There are no areas of restricted diffusion identified to suggest an acute infarct. There is no acute intracranial hemorrhage. No mass effect or midline shift is present. There is mild diffuse cerebral volume loss. There are multiple foci of abnormal increased T2/FLAIR signal intensity within the periventricular and deep white matter of both hemispheres. There is no abnormal extra-axial fluid collection. There is no sellar or suprasellar mass present. The proximal portions of the [place] demonstrate normal flow voids. ORBITS: Limited evaluation of the orbits is unremarkable. SINUSES: The paranasal sinuses and mastoid air cells are clear. BONES/SOFT TISSUES: The bone marrow signal intensity appears normal. The soft tissues demonstrate no acute abnormality. IMPRESSION: 1. No acute infarct or acute intracranial process identified. 2. Mild diffuse cerebral volume loss and mild chronic small vessel ischemic changes. [employer] Phone: Radiology Study observation (narrative) [facility] Work Phone: MRI BRAIN WO CONTRASTOrdered By: Kwame Bonilla on 08-15-2021 [facility] Work Phone: Ammoniaon 08-14-2021 Ammonia (P) [Moles/Vol] 27 umol/L 11 - 41 umol/L [facility] Blood Gas, Arterialon 2020 Chase Test PASS [facility] Carboxyhemoglobin NOT REPORTED 0 - 5 % [facility] Comment on above: FIO2 NOT REPORTED [facility] HCO3 (Bld) [Moles/Vol] 26.1 mmol/L High 22 - 26 mmol/L [facility] Interpretation and review of laboratory results Abnormal [facility] Methemoglobin NOT REPORTED 0.0 - 1.9 % [facility] alth Mode NOT REPORTED [facility] Negative Base Excess, Art 0.6 mmol/L 0.0 - 2.0 mmol/L [facility] NOTIFICATION NOT REPORTED [facility] th NOTIFICATION TIME NOT REPORTED [facility] O2 Device/Flow/% Cannula [facility] alth Comment on above: 2L Oxygen saturation in Blood 95.7 % 95 - 98 % [facility] Oxyhemoglobin NOT REPORTED 95.0 - 98.0 % [facility] pCO2, Art, Temp Adj NOT REPORTED [facility] pCO2, Arterial 50.8 High [facility] th Peep/Cpap NOT REPORTED [facility] pH, Art, Temp Adj NOT REPORTED [facility] pH, Arterial 7.329 Low [facility] pO2, Art, Temp Adj NOT REPORTED [facility] pO2, Arterial 85.6 [facility] Positive Base Excess, Art NOT REPORTED 0.0 - 2.0 mmol/L [facility] PSV NOT REPORTED [facility] Pt Temp NOT REPORTED [facility] Pt. Position SEMI-FOWLERS [facility] th Respiratory Rate NOT REPORTED [facility] Sample Site Left Radial Artery [facility] Set Rate NOT REPORTED [facility] Text for Respiratory NOT REPORTED [facility] Total Hb NOT REPORTED 12.0 - 16.0 g/dl [facility] Total Rate NOT REPORTED [facility] VT NOT REPORTED [facility] CBC auto differentialon 07-18 Absolute Eos # 0.03 [facility] th Absolute Immature Granulocyte <0.03 [facility] Absolute Lymph # 1.31 [facility] Absolute Sullivan # 0.26 [facility] Basophils (Bld) [#/Vol] 10*3/uL [facility] Basophils/100 WBC (Bld) 1 % 0 - 2 % [facility] Differential Type NOT REPORTED [facility] Eosinophils/100 WBC (Bld) 1 % 1 - 4 % [facility] Hematocrit (Bld) [Volume fraction] 34.3 % Low 36.3 - 47.1 % [facility] Hemoglobin.gastrointesti nal spec 1 Ql (Stl) 10.8 g/dL Low 11.9 - 15.1 g/dL [facility] Immature granulocytes/100 WBC (Bld) 0 % 0 [facility] Interpretation and review of laboratory results Abnormal [facility] Lymphocytes/100 WBC (Bld) 34 % 24 - 43 % [facility] MCH (RBC) [Entitic mass] 28.4 pg 25. 2 - 33.5 pg [facility] MCHC (RBC) [Mass/Vol] 31.5 g/dL 28.4 - 34.8 g/dL [facility] MCV (RBC) [Entitic vol] 90.3 fL 82.6 - 102.9 fL [facility] Monocytes/100 WBC (Bld) 7 % 3 - 12 % [facility] NRBC Automated 0.0 0.0 per 100 WBC [facility] Platelet distribution width (Bld) [Ratio] 15.3 % High 11.8 - 14.4 % [facility] Platelet Estimate NOT REPORTED [facility] Platelet mean volume (Bld) [Entitic vol] NOT REPORTED 8.1 - 13.5 fL [facility] Platelets (Bld) [#/Vol] See Reflexed IPF Result [facility] RBC (Bld) [#/Vol] 3.80 10*6/uL Low 3.95 - 5.1 1 m/uL [facility] RBC (Bld) [#/Vol] NOT REPORTED [facility] Segmented neutrophils/100 WBC (Bld) 58 % 36 - 65 % [facility] Segs Absolute 2.26 [facility] WBC (Bld) [#/Vol] 3.9 10*3/uL [facility] WBC (Bld) [#/Vol] NOT REPORTED [facility] COVID-19, Rapidon 08-14-2021 SARS-CoV-2 (COVID-19) RNA MARIUSZ+probe Ql (Unsp spec) Not detected Not Detected [facility] Comment on above: Rapid NAAT: The specimen is NEGATIVE for SARS-CoV-2, the novel coronavirus associated with COVID-19. The ID NOW COVID-19 assay is designed to detect the virus that causes COVID-19 in patients with signs and symptoms of infection who are suspected of COVID-19. An individual without symptoms of COVID-19 and who is not shedding SARS-CoV-2 virus would expect to have a negative (not detected) result in this assay. Negative results should be treated as presumptive and, if inconsistent with clinical signs and symptoms or necessary for patient management, should be tested with an alternative molecular assay. Negative results do not preclude SARS-CoV-2 infection and should not be used as the sole basis for patient management decisions. Fact sheet for Healthcare Providers: https://www.fda.gov/media/176448/download Fact sheet for Patients: https://www.fda.gov/media/812874/download Methodology: Isothermal Nucleic Acid Amplification Specimen Description .NASOPHARYNGEAL SWAB [facility] CT CHEST ABDOMEN PELVIS W VA NTRASTon 08-14-2021 CT OF THE CHEST: 1. No traumatic or other acute abnormality seen in the chest. 2. Mild cardiomegaly. 3. Pulmonary opacities in the dependent aspects of the lungs likely represent atelectasis. CT OF THE ABDOMEN AND PELVIS: 1. No traumatic or other acute abnormality. 2. Liver cirrhosis with mild splenomegaly. No ascites. 3. Constipation. No evidence of bowel obstruction. 4. Cholelithiasis. RECOMMENDATIONS: Unavailable [facility] EXAMINATION: CT OF THE CHEST, ABDOMEN, AND PELVIS WITH CONTRAST 08/14/2021 9:31 am TECHNIQUE: CT of the chest, abdomen and pelvis was performed with the administration of intravenous contrast. Multiplanar reformatted images are provided for review. Dose modulation, iterative reconstruction, and/or weight based adjustment of the mA/kV was utilized to reduce the radiation dose to as low as reasonably achievable. COMPARISON: CT abdomen and pelvis, 02/07/2021 HISTORY: ORDERING SYSTEM PROVIDED HISTORY: altered, fall, L rib pain TECHNOLOGIST PROVIDED HISTORY: altered, fall, L rib pain Decision Support Exception - unselect if not a suspected or confirmed emergency medical condition->Emergency Medical Condition (MA) FINDINGS: Chest: Mediastinum: The heart is mildly enlarged. Prominent calcified coronary atherosclerosis. Mild calcified atherosclerosis is seen in the aorta. No aneurysm. No lymphadenopathy seen in the chest. Lungs/pleura: Dependent pulmonary opacities in the lingula and lower lobes likely represent atelectasis. No evidence of pneumonia or pulmonary contusion. The central airway is clear. No pneumothorax no pleural effusion is seen. Soft Tissues/Bones: The visualized bones are intact without fracture or focal lesion. Abdomen/Pelvis: Organs: Liver: Irregular liver contour consistent with cirrhosis. No focal lesion, laceration or ductal dilatation. Gallbladder: Cholelithiasis. No pericholecystic inflammatory changes or ductal dilatation. Pancreas: Unremarkable. Spleen: Mildly enlarged, measuring 14.1 cm in length. Adrenals: Unremarkable. Kidneys: Unremarkable. GI/Bowel: Somewhat prominent fecal retention in the colon indicating constipation. No bowel wall thickening or obstruction. Pelvis: The urinary bladder is unremarkable. Within limits of the CT technique, the uterus and the adnexa are grossly unremarkable. Peritoneum/Retroperi toneum: No pathologically enlarged lymph node is seen in the abdomen or the pelvis. Moderate calcified atherosclerosis is seen in the aorta. No aneurysm. No free air or free fluid is seen. Bones/Soft Tissues: The visualized bones are intact without fracture or focal lesion. [facility] Aria Varela MD - 08/14/2021 EXAMINATION: CT OF THE CHEST, ABDOMEN, AND PELVIS WITH CONTRAST 08/14/2021 9:31 am TECHNIQUE: CT of the chest, abdomen and pelvis was performed with the administration of intravenous contrast. Multiplanar reformatted images are provided for review. Dose modulation, iterative reconstruction, and/or weight based adjustment of the mA/kV was utilized to reduce the radiation dose to as low as reasonably achievable. COMPARISON: CT abdomen and pelvis, 02/07/2021 HISTORY: ORDERING SYSTEM PROVIDED HISTORY: altered, fall, L rib pain TECHNOLOGIST PROVIDED HISTORY: altered, fall, L rib pain Decision Support Exception - unselect if not a suspected or confirmed emergency medical condition->Emergency Medical Condition (MA) FINDINGS: Chest: Mediastinum: The heart is mildly enlarged. Prominent calcified coronary atherosclerosis. Mild calcified atherosclerosis is seen in the aorta. No aneurysm. No lymphadenopathy seen in the chest. Lungs/pleura: Dependent pulmonary opacities in the lingula and lower lobes likely represent atelectasis. No evidence of pneumonia or pulmonary contusion. The central airway is clear. No pneumothorax no pleural effusion is seen. Soft Tissues/Bones: The visualized bones are intact without fracture or focal lesion. Abdomen/Pelvis: Organs: Liver: Irregular liver contour consistent with cirrhosis. No focal lesion, laceration or ductal dilatation. Gallbladder: Cholelithiasis. No pericholecystic inflammatory changes or ductal dilatation. Pancreas: Unremarkable. Spleen: Mildly enlarged, measuring 14.1 cm in length. Adrenals: Unremarkable. Kidneys: Unremarkable. GI/Bowel: Somewhat prominent fecal retention in the colon indicating constipation. No bowel wall thickening or obstruction. Pelvis: The urinary bladder is unremarkable. Within limits of the CT technique, the uterus and the adnexa are grossly unremarkable. Peritoneum/Retroperi toneum: No pathologically enlarged lymph node is seen in the abdomen or the pelvis. Moderate calcified atherosclerosis is seen in the aorta. No aneurysm. No free air or free fluid is seen. Bones/Soft Tissues: The visualized bones are intact without fracture or focal lesion. IMPRESSION: CT OF THE CHEST: 1. No traumatic or other acute abnormality seen in the chest. 2. Mild cardiomegaly. 3. Pulmonary opacities in the dependent aspects of the lungs likely represent atelectasis. CT OF THE ABDOMEN AND PELVIS: 1. No traumatic or other acute abnormality. 2. Liver cirrhosis with mild splenomegaly. No ascites. 3. Constipation. No evidence of bowel obstruction. 4. Cholelithiasis. RECOMMENDATIONS: Unavailable [employer] Phone: Radiology Study observation (narrative) [employer] Phone: CT CHEST ABDOMEN PELVIS W CO NTRASTOrdered By: Aria Varela on 08-14-2021 [employer] Work Phone: CT HEAD WO CONTRASTon 2020 No acute intracranial abnormality or significant interval change. RECOMMENDATIONS: Unavailable [facility] EXAMINATION: CT OF THE HEAD WITHOUT CONTRAST 08/14/2021 9:31 am TECHNIQUE: CT of the head was performed without the administration of intravenous contrast. Dose modulation, iterative reconstruction, and/or weight based adjustment of the mA/kV was utilized to reduce the radiation dose to as low as reasonably achievable. COMPARISON: August 08, 2021, February 07, 2021 HISTORY: ORDERING SYSTEM PROVIDED HISTORY: Altered mental status, status post fall TECHNOLOGIST PROVIDED HISTORY: altered fall Decision Support Exception - unselect if not a suspected or confirmed emergency medical condition->Emergency Medical Condition (MA) FINDINGS: BRAIN/VENTRICLES: No acute blood products, shift of the midline structures, or CT evidence of acute infarct. Diffuse cortical volume loss and compensatory ventricular enlargement, greater than expected for patient age, appears unchanged. Periventricular and subcortical white matter hypoattenuation bilaterally compatible chronic microvascular ischemic changes. ORBITS: The visualized portion of the orbits demonstrate no acute abnormality. SINUSES: Minimal nonaggressive mucosal thickening in the left maxillary sinus. Paranasal sinuses otherwise appear clear. Mastoid air cells are clear. SOFT TISSUES/SKULL: No acute abnormality of the visualized skull or soft tissues. [facility] Reji Goodman MD - 08/14/2021 EXAMINATION: CT OF THE HEAD WITHOUT CONTRAST 08/14/2021 9:31 am TECHNIQUE: CT of the head was performed without the administration of intravenous contrast. Dose modulation, iterative reconstruction, and/or weight based adjustment of the mA/kV was utilized to reduce the radiation dose to as low as reasonably achievable. COMPARISON: August 08, 2021, February 07, 2021 HISTORY: ORDERING SYSTEM PROVIDED HISTORY: Altered mental status, status post fall TECHNOLOGIST PROVIDED HISTORY: altered fall Decision Support Exception - unselect if not a suspected or confirmed emergency medical condition->Emergency Medical Condition (MA) FINDINGS: BRAIN/VENTRICLES: No acute blood products, shift of the midline structures, or CT evidence of acute infarct. Diffuse cortical volume loss and compensatory ventricular enlargement, greater than expected for patient age, appears unchanged. Periventricular and subcortical white matter hypoattenuation bilaterally compatible chronic microvascular ischemic changes. ORBITS: The visualized portion of the orbits demonstrate no acute abnormality. SINUSES: Minimal nonaggressive mucosal thickening in the left maxillary sinus. Paranasal sinuses otherwise appear clear. Mastoid air cells are clear. SOFT TISSUES/SKULL: No acute abnormality of the visualized skull or soft tissues. IMPRESSION: No acute intracranial abnormality or significant interval change. RECOMMENDATIONS: Unavailable [employer] Phone: Radiology Study observation (narrative) [employer] Phone: CT HEAD WO CONTRASTOrdered B y: Reji Carranza on 08-14-2021 [employer] Phone: Comprehensive Metabolic Pane roger 08-14-2021 Albumin [Mass/Vol] 3.7 g/dL 3.5 - 5.2 g/dL [facility] Albumin/Globulin [Mass ratio] 1.2 {ratio} [facility] ALP (Bld) [Catalytic activity/Vol] 106 U/L High 35 - 104 U/L [facility] ALT [Catalytic activity/Vol] 26 U/L 5 - 33 U/L [facility] Anion gap [Moles/Vol] 12 mmol/L 9 - 17 mmol/L [facility] AST [Catalytic activity/Vol] 32 U/L High <32 [facility] Bilirubin [Mass/Vol] 0.51 mg/dL 0.3 - 1 .2 mg/dL [facility] Calcium [Mass/Vol] 9.4 mg/dL 8.6 - 10. 4 mg/dL [facility] Chloride [Moles/Vol] 101 mmol/L 98 - 10 7 mmol/L [facility] CO2 [Moles/Vol] 23 mmol/L 20 - 31 mmol/L [facility] Creatinine [Mass/Vol] 1.13 mg/dL High 0.50 - 0.90 mg/dL [facility] Free PSA/Total PSA [Mass fraction] 6.7 g/dL 6.4 - 8.3 g/dL [facility] GFR 58 mL/min Low >60 [facility] GFR Non- 48 mL/min Low >60 [facility] Glucose [Mass/Vol] 231 mg/dL High 70 - 99 mg/dL [facility] Interpretation and review of laboratory results Abnormal [facility] Potassium [Moles/Vol] 5.2 mmol/L 3.7 - 5.3 mmol/L [facility] Sodium [Moles/Vol] 136 mmol/L 135 - 144 mmol/L [facility] Urea nitrogen (BldV) [Mass/Vol] 22 mg/dL 8 - 23 mg/dL [facility] Urea nitrogen/Creatinine (Bld) [Mass ratio] [address] [facility] Drug screen multi urineon Amphetamine Screen, Ur Negative NEGATIVE [facility] Barbiturate Screen, Ur Negative NEGATIVE [facility] Benzodiazepine Screen, Urine Negative NEGATIVE [facility] Buprenorphine Urine Negative NEGATIVE [facility] Cannabinoid Scrn, Ur Negative NEGATIVE [facility] Cocaine Metabolite, Urine Negative NEGATIVE [facility] MDMA, Urine NOT REPORTED NEGATIVE [facility] h Methadone Screen, Urine Negative NEGATIVE [facility] Methamphetamine, Urine Negative NEGATIVE [facility] Opiates, Urine Negative NEGATIVE [facility] Oxycodone Screen, Ur Negative NEGATIVE [facility] Phencyclidine, Urine Negative NEGATIVE [facility] Propoxyphene, Urine Negative NEGATIVE [facility] Test Information NOT REPORTED [facility] Tricyclic Antidepressants, Urine Negative NEGATIVE [facility] Comment on above: Drug screen results are to be used for medical purposes only. All positive results are unconfirmed. Testing for employment or legal uses should be sent to a reference laboratory for confirmation. [facility] Immature Platelet Fractionon 08-14-2021 Interpretation and review of laboratory results Abnormal [facility] Platelet, Fluorescence 84 Low [facility] Platelet, Immature Fraction 3.6 % 1.1 - 10.3 % [facility] Laboratory - Chemistry and C hemistry - challengeon 08-14-2021 GFR/1.73 sq M.predicted MDRD (S/P/Bld) [Vol rate/Area] [facility] Comment on above: Average GFR for 60-6 9 years old: 85 mL/min/1.73sq m Chronic Kidney Disease: <60 mL/min/1.73sq m Kidney failure: <15 mL/min/1.73sq m eGFR calculated using average adult body mass. Additional eGFR calculator available at: http://www.[employer]/multiple_crcl_2012.htm Stage 1: Some kidney damage normal GFR Stage 2: Mild kidney damage GFR 60-89 Stage 3: Moderate kidney damage GFR 30-59 Stage 4: Severe kidney damage GFR 15-29 Stage 5: Severe kidney damage GFR <15 ESRD - chronic treatment by dialysis or transplant TOX SCR, BLD, EDon Acetaminophen Level <5 Low 10 - 30 ug/mL [facility] Ethanol [Mass/Vol] mg/dL <10 mg/dL [facility] Ethanol percent <0.010 <0.010 % [facility] Interpretation and review of laboratory results Abnormal [facility] Salicylate Lvl <1 Low 3 - 10 mg/dL [facility] Toxic Tricyclic Sc,Blood Negative NEGATIVE [facility] Troponinon 08-14-2021 Troponin Interp NOT REPORTED [facility] ealth Troponin T NOT REPORTED <0.03 ng/mL [facility] Troponin, High Sensitivity 12 ng/L 0 - 14 ng/L [facility] Comment on above: High Sensitivity Troponin values cannot be compared with other Troponin methodologies. Patients with high levels of Biotin oral intake (i.e >5mg/day) may have falsely decreased Troponin levels. Samples collected within 8 hours of biotin intake may require additional information for diagnosis. [facility] Urinalysis with microscopico n 08-14-2021 - [facility] Amorphous, UA NOT REPORTED None [facility] Bacteria, UA NOT REPORTED None [facility] Bilirubin Urine Negative NEGATIVE [facility] Casts UA NOT REPORTED /LPF [facility] Color, UA Yellow Yellow [facility] Crystals, UA NOT REPORTED None /HPF [facility] Epithelial Cells UA 0 TO 2 [facility] Glucose, Ur Negative NEGATIVE [facility] Ketones Ql (U) Negative NEGATIVE [facility] Leukocyte esterase Test strip Ql (U) Negative NEGATIVE [facility] Mucus, UA NOT REPORTED None [facility] Nitrite, Urine Negative NEGATIVE [facility] Other Observations UA NOT REPORTED NOT REQ. [facility] pH, UA 6.0 [facility] Protein, UA Negative NEGATIVE [facility] RBC, UA 0 TO 2 [facility] Renal Epithelial, UA NOT REPORTED 0 /HPF [facility] Specific Clay, UA 1.015 [facility] Trichomonas, UA NOT REPORTED None [facility] ealt Turbidity UA Clear Clear [facility] Urinalysis Comments NOT REPORTED [facility] Urine Hgb Negative NEGATIVE [facility] Urobilinogen, Urine Normal Normal [facility] WBC, UA 0 TO 2 [facility] Yeast, UA NOT REPORTED None [facility] Valproic acid level, totalon 08-14-2021 Valproic Acid Lvl 60 ug/mL 50 - 125 ug/mL [facility] Valproic Date last dose NOT REPORTED [facility] Valproic Dose amount NOT REPORTED [facility] Valproic Time last dose NOT REPORTED [facility] XR CHEST PORTABLEon 08-14-20 21 Bibasilar airspace disease, not significantly changed. Pneumonia can not be excluded. Significantly decreased inspiratory volume. [facility] RIS CONSOLIDATED EXAMINATION: ONE XRAY VIEW OF THE CHEST 08/14/2021 9:51 am COMPARISON: Radiograph August 08, [address] earlier today. HISTORY: ORDERING SYSTEM PROVIDED HISTORY: altered, L sided rib pain TECHNOLOGIST PROVIDED HISTORY: altered, L sided rib pain FINDINGS: Cardiomediastinal silhouette appears unchanged. Decreased inspiratory volume. Bibasilar airspace disease redemonstrated. No definite effusion. No pneumothorax or subdiaphragmatic free air. No acute osseous abnormality identified. Remote healed right proximal humerus fracture. ACDF hardware redemonstrated. PN RIS Reji Garcia MD - 08/14/2021 EXAMINATION: ONE XRAY VIEW OF THE CHEST 08/14/2021 9:51 am COMPARISON: Radiograph August 08, [address] earlier today. HISTORY: ORDERING SYSTEM PROVIDED HISTORY: altered, L sided rib pain TECHNOLOGIST PROVIDED HISTORY: altered, L sided rib pain FINDINGS: Cardiomediastinal silhouette appears unchanged. Decreased inspiratory volume. Bibasilar airspace disease redemonstrated. No definite effusion. No pneumothorax or subdiaphragmatic free air. No acute osseous abnormality identified. Remote healed right proximal humerus fracture. ACDF hardware redemonstrated. IMPRESSION: Bibasilar airspace disease, not significantly changed. Pneumonia can not be excluded. Significantly decreased inspiratory volume. [employer] Work Phone: [employer] Phone: Radiology Study observation (narrative) [facility] [employer] [facility] Work Phone: [address] 07-09-2021 Employed in healthcare? No Normal [place] Comment on above: Performed By: #### L CARLOS #### [facility] [address] [place] [address] Group care resident? No Normal [facility] Comment on above: Performed By: #### L CARLOS #### [facility] [address] [place] [address] In ICU? No Normal [facility] Comment on above: Performed By: #### L CARLOS #### [place] [address] status? Not Normal [facility] Comment on above: Performed By: #### L CARLOS #### [address] [address] SARS-CoV-2 (COVID-19) RNA MARIUSZ+probe Ql (Unsp spec) Normal Negative [facility] Comment on above: Result Comment: * Ne gative (Non-Reactive) * Negative results from patients with symptom onset outside of one to six days should be treated as presumptive. A false-negative test result may occur if the level of viral antigen in a sample is below the detection limit of the test or if the sample was collected or transported improperly; therefore, a negative test result does not eliminate the possibility of SARS-CoV-2 infection. Negative results should not be used as the sole basis for treatment or patient management decisions, including infection control decisions. Negative results should be considered in the context of a patient?s recent exposures, history and the presence of clinical signs and symptoms consistent with COVID-19. Negative ADDITIONAL INFORMATION: Testing performed on the [employer] using the SARS-CoV-2 Antigen test. Results are for the identification of SARS-CoV-2 nucleocapsid antigen. The [employer] SARS-CoV-2 Antigen test can detect both viable and non-viable SARS-CoV-2 material. The V[employer]ROS SARS-CoV-2 Antigen test performance depends on antigen load and may not correlate with other diagnostic methods performed on the same specimen. The performance of this test has not been evaluated for use in patients without signs and symptoms of respiratory infection. Test results should be considered in the context of all available clinical and diagnostic information, including patient history and other test results. In the [place], the [employer]ROS SARS-CoV-2 Antigen test is only for use under the Food and Drug Administration?s Emergency Use Authorization. HCP Fact Sheet: https://www.fda.gov/media/701278/download Patient Fact Sheet: https://www.fda.gov/media/662991/download Performed By: #### L CARLOS #### [address] [address] SARS-CoV-2 (COVID-19) RNA MARIUSZ+probe Ql (Unsp spec) No Normal [facility] Comment on above: Performed By: #### L CARLOS #### [address] [address] SARS-CoV-2 (COVID-19) RNA MARIUSZ+probe Ql (Unsp spec) Unknown Normal [facility] Comment on above: Performed By: #### L CARLOS #### [facility] [address] [place] [address] Symptomatic as defined by CDC? No Normal [facility] Comment on above: Performed By: #### L CARLOS #### [facility] [address] [place] [address] Operative Reporton 1 Operative Report Missing Attachment [id number] Can be viewed in source system Missing Attachment [id number] Can be viewed in source system Missing Attachment [id number] Can be viewed in source system Missing Attachment [id number] Can be viewed in source system Missing Attachment [id number] Can be viewed in source system Missing Attachment [id number] Can be viewed in source system Missing Attachment [id number] Can be viewed in source system Missing Attachment [id number] Can be viewed in source system Missing Attachment [id number] Can be viewed in source system Missing Attachment [id number] Can be viewed in source system Missing Attachment [id number] Can be viewed in source system Missing Attachment [id number] Can be viewed in source system Missing Attachment [id number] Can be viewed in source system Missing Attachment [id number] Can be viewed in source system Missing Attachment [id number] Can be viewed in source system Missing Attachment [id number] Can be viewed in source system Missing Attachment [id number] Can be viewed in source system Missing Attachment [id number] Can be viewed in source system Missing Attachment [id number] Can be viewed in source system Missing Attachment [id number] Can be viewed in source system Missing Attachment [id number] Can be viewed in source system Patient: Angella Olson Age: 65 years Sex: Female : 1955 Associated Diagnoses: None Author: Rodrigo SUÁREZ, Tony Licea Pre-Procedure Current history and physical: Colonoscopy. Esophagogastroduoden oscopy. section ([id number]). Cervical Fusion. Benign mass removal x2. REPAIR OF SHOULDER (99419). REPAIR DETACHED RETINA (48840). Comments: 07/04/2021 14:41 EST - Butterfield, Christina M For both eyes, Allergies (14) Active Reaction erythromycin Anaphylactic reaction fentaNYL Anaphylactic reaction gatifloxacin Anaphylactic reaction sulfa drugs Anaphylactic reaction tetracycline Shortness of breath clindamycin Unknown indomethacin Shortness of breath iodine Shortness of breath Latex unknown lidocaine Swelling nitrofuran derivatives Hives penicillins Itching Phenazopyridine Hydrochloride Hives shellfish Shortness of breath , Medications (2) Active Scheduled: (0) Continuous: (1) Sodium Chloride 0.9% 1,000 mL 1,000 mL, IV, 15 mL/hr PRN: (1) sodium chloride 0.9% Inj Soln 10 mL Flush 10 mL, IV Push, As Indicated . Histories: Active Problems (10) Cancer, hepatocellular Chronic kidney disease Cirrhosis COPD (chronic obstructive pulmonary disease) Diabetes Diabetes Esophageal varices Fatty liver Immunity status testing Manic depression . Medications: (Selected) Inpatient Medications Ordered NS 1,000 mL: 15 mL/hr, IV Normal Saline Flush 0.9% injectable solution: 10 mL, IV Push, As Indicated, PRN: flush Documented Medications Documented Breo Ellipta 200 mcg-25 mcg/inh inhalation powder: 1 puffs, Inhale, Daily, 0 Refill(s) CBD cream: 0 Refill(s) CBD oil: 0 Refill(s) Calcium, Magnesium and Zinc oral tablet: 1 tabs, Oral, Daily, 0 Refill(s) FLUoxetine 10 mg oral capsule: 3 caps, Oral, Daily, 0 Refill(s) Fish Oil: Oral, 0 Refill(s) Flonase: Daily, 0 Refill(s) GlycoLax: 17 g, Oral, Daily, 0 Refill(s) Levemir FlexTouch 100 units/mL subcutaneous solution: 0 Refill(s) Nystop 100,000 units/g topical powder: 0 Refill(s) Vitamin D3 1000 intl units oral capsule: 1 caps, Oral, Daily, 0 Refill(s) atenolol 25 mg oral tablet: 0 Refill(s) atorvastatin 80 mg oral tablet: 0 Refill(s) baclofen 10 mg oral tablet: 0 Refill(s) divalproex sodium 250 mg oral tablet, extended release: 0 Refill(s) ferrous sulfate 325 mg (65 mg elemental iron) oral delayed release tablet: 1 tabs, Oral, Daily, 0 Refill(s) fexofenadine 180 mg oral tablet: 1 tabs, Oral, Daily, 0 Refill(s) gabapentin 100 mg oral capsule: 0 Refill(s) hyaluronic acid: 0 Refill(s) lisinopril 5 mg oral tablet: 0 Refill(s) melatonin 10 mg oral capsule: 1 caps, Oral, HS (at bedtime), 0 Refill(s) metFORMIN 1000 mg oral tablet: 0 Refill(s) multivitamin: Daily, 0 Refill(s) omeprazole 20 mg oral delayed release capsule: 1 caps, Oral, Daily, 0 Refill(s) ondansetron 4 mg oral tablet: 0 Refill(s) oxybutynin 10 mg/24 hr oral tablet, extended release: 0 Refill(s) traMADol 50 mg oral tablet: 1 tabs, Oral, q6hr, 0 Refill(s) traZODone 50 mg oral tablet: 0 Refill(s). Images Procedure images: EGD_0001.jpg EGD_0002.jpg EGD_0003.jpg EGD_0004.jpg EGD_0005.jpg EGD_0006.jpg EGD_0007.jpg EGD_0008.jpg EGD_0009.jpg EGD_0010.jpg EGD_0011.jpg (Inserted I (more content not included)... Normal [facility] Comment on above: Order Comment: Ashly weems Attachment [id number] Can be viewed in source systemMissing Attachment [id number] Can be viewed in source systemMissing Attachment [id number] Can be viewed in source systemMissing Attachment [id number] Can be viewed in source systemMissing Attachment [id number] Can be viewed in source systemMissing Attachment [id number] Can be viewed in source systemMissing Attachment [id number] Can be viewed in source systemMissing Attachment [id number] Can be viewed in source systemMissing Attachment [id number] Can be viewed in source systemMissing Attachment [id number] Can be viewed in source systemMissing Attachment [id number] Can be viewed in source systemMissing Attachment [id number] Can be viewed in source systemMissing Attachment [id number] Can be viewed in source systemMissing Attachment [id number] Can be viewed in source systemMissing Attachment [id number] Can be viewed in source systemMissing Attachment [id number] Can be viewed in source systemMissing Attachment [id number] Can be viewed in source systemMissing Attachment [id number] Can be viewed in source systemMissing Attachment [id number] Can be viewed in source systemMissing Attachment [id number] Can be viewed in source systemMissing Attachment [id number] Can be viewed in source system POC Glucose Randomon 021 Glucose [Mass/Vol] 253 mg/dL High 70-[address] [facility] Comment on above: Performed By: #### C [id number] #### [address] [address] B-4-ZN-[facility] 05-27-2021 A-1-AT-Erickson 141 mg/dL Normal 100 - 190 [facility] Comment on above: Result Comment: Test Performed by: [facility] [address] [place] [address] Patient Intake Representative: Lucas Palmer M.D. Ph.D.; CLIA# [id number] Performed By: #### L CARLOS #### [address] [address] Cerulo Lvl-[facility] 05-26-2021 Ceruloplasmin-Erickson 23.1 mg/dL Normal 20.0 - 51.0 [facility] Comment on above: Result Comment: Test Performed by: [facility] [address] [place] [address] Patient Intake Representative: Lucas Palmer M.D. Ph.D.; CLIA# [id number] Performed By: #### C [id number] #### [address] [address] AFP Tm Miros[place]ava[facility] AFP-Erickson 1.7 ng/mL Normal [facility] Comment on above: Result Comment: REFERENCE VALUE <8.4 Reference values are for non- subjects only; production of AFP elevates values in women. ADDITIONAL INFORMATION In this [employer] [place] assay AFP concentrations are <8.4 ng/mL for 99% of a normal population consisting of non- healthy individuals, without known liver disease, hepatocellular carcinoma, or germ-cell tumors. The persistence of alpha-fetoprotein , an uncommon hereditary trait may cause elevations of AFP above the reference interval. The testing method is an immunoenzymatic assay manufactured by [employer]. and is tested on the [employer] DxI 800. Values obtained with different assay methods or kits may be different and cannot be used interchangeably. Test results cannot be interpreted as absolute evidence of the presence or absence of malignant disease. Alpha-Fetoprotein values are not interpretable in females for the investigation of malignant disease. Test Performed by: [facility] [place] [address] Patient Intake Representative: Lucas Palmer M.D. Ph.D.; CLIA# [id number] Performed By: #### L CARLOS #### [address] [address] AMA M2-[facility] 05-25-2021 AMA Ab Screen-Geraldine 0.1 units High <0.1 (Negative) [facility] Comment on above: Result Comment: Inte rpretation: Borderline (0.1-0.3) Test Performed by: [facility] [place] [address] Patient Intake Representative: Lucas Palmer M.D. Ph.D.; CLIA# [id number] Performed By: #### C [id number] #### [address] [address] TOMASZ Oez-1-Zsefkj 05-25-2021 TOMASZ Cytoplasmic Pattern-Geraldine Not Reported Normal [facility] Comment on above: Performed By: #### C [id number] #### [address] [address] TOMASZ Lab Comment-Geraldine Not Reported Normal [facility] Comment on above: Performed By: #### C [id number] #### [address] [address] TOMASZ Pattern (2)-Geraldine Not Reported Normal [facility] Comment on above: Performed By: #### C [id number] #### [address] [address] TOMASZ Pattern-Geraldine Homogeneous Normal [facility] Comment on above: Result Comment: Test Performed by: [facility] [place] [address] Patient Intake Representative: Lucas Palmer M.D. Ph.D.; CLIA# [id number] Performed By: #### C [id number] #### [address] [address] TOMASZ Titer (2)-Geraldine Not Reported Normal [facility] Comment on above: Performed By: #### C [id number] #### [address] [address] TOMASZ Titer-Geraldine 1:320 Normal [facility] Comment on above: Performed By: #### C [id number] #### [address] [address] HEp-2 TOMASZ-Geraldine Positive Abnormal <1:80 (Negative) [facility] Comment on above: Result Comment: ADDITIONAL INFORMATION Method: Immunofluorescence using HEp-2 cellular substrate. Performed By: #### C [id number] #### [address] [address] Hep A IgG Antibody, Serum-Montez fernandez 05-25-2021 Hepatitis A IgG Ab-Geraldine Negative Normal B [facility] Comment on above: Result Comment: Resu lt indicates no past exposure or immunity to hepatitis A infection. REFERENCE VALUE Unvaccinated: Negative Vaccinated: Positive Test Performed by: [facility] [place] [address] Patient Intake Representative: Lucas Palmer M.D. Ph.D.; CLIA# [id number] Performed By: #### Bernabe [id number] #### [place] [address] SM Ab-[facility] 05-25-2021 SMA Screen-Geraldine Negative Normal Negative [facility] Comment on above: Result Comment: Nega tive: No further testing will be performed ADDITIONAL INFORMATION This test was developed and its performance characteristics determined by [facility] in a manner consistent with CLIA requirements. This test has not been cleared or approved by the U.S. Food and Drug Administration. Test Performed by: [facility] [place] [address] Patient Intake Representative: Lucas Palmer M.D. Ph.D.; CLIA# [id number] Performed By: #### L CARLOS #### [place] [address] TTG IgA/G-[facility] 05-25-2021 TTG IgA-Geraldine <1.2 Normal <4.0 (Negative) [facility] Comment on above: Performed By: #### C [id number] #### [address] [address] TTG IgG-Geraldine 4.0 unit/mL Normal <6.0 (Negative) [facility] Comment on above: Result Comment: Test Performed by: [place] [address] Patient Intake Representative: Lucas Palmer M.D. Ph.D.; CLIA# [id number] Performed By: #### C [id number] #### [facility] [address] [place] [address] .eGFRon 05-23-2021 eGFR Non-AA 53 mL/min/1.73m? Low >=60 [facility] Comment on above: Result Comment: Stag es of Chronic Kidney Disease GFR Stage 3a Mild to moderate loss of kidney function 59 to 45 Stage 3b Moderate to severe loss of kidney function 44 to 33 Stage 4 Severe loss of kidney function 29 to 15 Stage 5 Kidney failure Less than 15 GFR calculated using the CKD-EPI Creatinine Equation (2009): eGFR = 141 X min(SCr/?, 1)? X max(SCr /?, 1)-1.209 X 0.993Age X 1.018 [if female] X 1.159 [if Black] Abbreviations/Units: eGFR (estimated glomerular filtration rate) = mL/min/1.73 m2 SCr (standardized serum creatinine) = mg/dL ? = 0.7 (females) or 0.9 (males) ? = -0.329 (females) or -0.411 (males) min = indicates the minimum of SCr/? or 1 max = indicates the maximum of SCr/? or 1 age = years Performed By: #### E GFR #### [place] [address] eGFR AA >60 Normal >=60 [facility] Comment on above: Result Comment: See comment. Performed By: #### E GFR #### [place] [id number] CBC w/ Diffon 05-23-2021 Erythrocyte distribution width (RBC) [Ratio] 18.6 % High 11.6-14.8 [facility] Comment on above: Performed By: #### C [id number] #### [place] [id number] Hematocrit (Bld) [Volume fraction] 32.5 % Low 36.0-46.0 [facility] Comment on above: Performed By: #### C [id number] #### [place] [id number] Hemoglobin (Bld) [Mass/Vol] 10.4 g/dL Low 12.0-16.0 [facility] Comment on above: Performed By: #### C [id number] #### [address] [address] MCH (RBC) [Entitic mass] 28.1 pg Normal 27.0-35.0 [facility] Comment on above: Performed By: #### C [id number] #### [address] [address] MCHC 32.1 % Normal 31.0-37.0 [facility] Comment on above: Performed By: #### C [id number] #### [address] [address] MCV (RBC) [Entitic vol] 87.3 fL Normal 80.0-100.0 B [facility] Comment on above: Performed By: #### C [id number] #### [address] [address] Platelet 103 x10*3/mcL Low 150-350 [facility] Comment on above: Performed By: #### C [id number] #### [address] [address] Platelet mean volume (Bld) [Entitic vol] 8.2 fL Normal 6.7-10.6 [facility] Comment on above: Performed By: #### C [id number] #### [address] [address] RBC 3.72 x10*6/mcL Low 3.80-5.20 [facility] Comment on above: Performed By: #### C [id number] #### [address] [address] WBC 4.0 x10*3/mcL Low 4.5-11.0 [facility] Comment on above: Performed By: #### C [id number] #### [address] [place] [address] CMPon 05-23-2021 Albumin [Mass/Vol] 3.4 g/dL Normal 3.2-4.[address] [facility] Comment on above: Performed By: #### L CARLOS #### [address] [address] Albumin/Globulin [Mass ratio] 0.9 {ratio} Low 1.1-2.2 [facility] Comment on above: Performed By: #### L CARLOS #### [address] [address] Alk Phos 81 IU/L Normal 32-91 [facility] Comment on above: Performed By: #### L CARLOS #### [address] [address] ALT [Catalytic activity/Vol] 33 U/L Normal 14-54 [facility] Comment on above: Performed By: #### L CARLOS #### [address] [address] Anion gap [Moles/Vol] 15 mmol/L Normal 7-17 [facility] Comment on above: Performed By: #### L CARLOS #### [address] [address] AST [Catalytic activity/Vol] 48 U/L High 15-41 [facility] Comment on above: Performed By: #### L CARLOS #### [address] [address] Bili Total 0.4 mg/dL Normal 0.3-1.2 [facility] Comment on above: Performed By: #### L CARLOS #### [address] [address] Calcium [Mass/Vol] 9.0 mg/dL Normal 8.5-10.[address] [facility] Comment on above: Performed By: #### L CARLOS #### [address] [address] Chloride [Moles/Vol] 99 mmol/L Normal 98-110 [facility] Comment on above: Performed By: #### L CARLOS #### [address] [address] CO2 [Moles/Vol] 27 mmol/L Normal 22-32 [facility] Comment on above: Performed By: #### L CARLOS #### [address] [address] Creatinine [Mass/Vol] 1.09 mg/dL High 0.44-1.03 [facility] Comment on above: Performed By: #### L CARLOS #### [address] [address] Glucose [Mass/Vol] 172 mg/dL High 70-[address] [facility] Comment on above: Performed By: #### L CARLOS #### [address] [address] Potassium [Moles/Vol] 4.4 mmol/L Normal 3.4-4.8 [facility] Comment on above: Performed By: #### L CARLOS #### [address] [address] Protein [Mass/Vol] 7.2 g/dL Normal 6.5-8.[address] [facility] Comment on above: Performed By: #### L CARLOS #### [address] [address] Sodium [Moles/Vol] 137 mmol/L Normal 133-[address] [facility] Comment on above: Performed By: #### L CARLOS #### [address] [address] Urea nitrogen [Mass/Vol] 20 mg/dL Normal 8-26 [facility] Comment on above: Performed By: #### L CARLOS #### [address] [address] Urea nitrogen/Creatinine [Mass ratio] 18.3 mg/mg Normal 10.0-20.0 [facility] Comment on above: Performed By: #### L CARLOS #### [address] [address] Diff Autoon 05-23-2021 Baso Absolute 0.0 x10*3/mcL Normal 0.0-0.2 [facility] Comment on above: Performed By: #### . Automated Diff #### [address] [address] Basophils/100 WBC (Bld) 0.2 % Normal 0.0-1.5 [place] Comment on above: Performed By: #### . Automated Diff #### [address] [address] Eos Absolute 0.0 x10*3/mcL Normal 0.0-0.4 [facility] Comment on above: Performed By: #### . Automated Diff #### [address] [address] Eosinophils/100 WBC (Bld) 0.9 % Normal 0.0-5.4 [facility] Comment on above: Performed By: #### . Automated Diff #### [address] [address] Lymph Absolute 1.2 x10*3/mcL Normal 1.0-4.8 [facility] Comment on above: Performed By: #### . Automated Diff #### [address] [address] Lymphocytes/100 WBC (Bld) 29.9 % Normal 27.2-40.8 [facility] Comment on above: Performed By: #### . Automated Diff #### [address] [address] [place] Absolute 0.3 x10*3/mcL Normal 0.1-1.1 [facility] Comment on above: Performed By: #### . Automated Diff #### [address] [address] Monocytes/100 WBC (Bld) 7.1 % Normal 3.7-11.9 [place] Comment on above: Performed By: #### . Automated Diff #### [address] [address] Neutro Absolute 2.5 x10*3/mcL Normal 1.8-7.[address] [facility] Comment on above: Performed By: #### . Automated Diff #### [place] [address] Neutro Auto 61.9 % Normal 47.2-70.8 [facility] Comment on above: Performed By: #### . Automated Diff #### [place] [id number] Hep A IgMon 05-23-2021 Hep A IgM 0.01 Normal [facility] Comment on above: Performed By: #### L CARLOS #### [place] [address] Hep A IgM Interp Normal Negative [facility] Comment on above: Result Comment: Ne gative Negative Performed By: #### L CARLOS #### [place] [address] Hep C Ab w/reflex HCV RNA Qn t, PCRon 05-23-2021 Hep C IgG Interp Normal Negative [facility] Comment on above: Result Comment: Ne gative Negative Performed By: #### L CARLOS #### [place] [address] HepB Profileon 05-23-2021 Hep B Core IgM 0.03 Normal [facility] Comment on above: Performed By: #### C [id number] #### [place] [id number] Hep B Core IgM Interp Normal Negative [facility] Comment on above: Result Comment: Ne gative Negative Performed By: #### C [id number] #### [place] [id number] Hep B Surface Antibody Interp Negative Normal [facility] Comment on above: Result Comment: Birdie ent is considered to be not immune to infection. Performed By: #### C [id number] #### [address] [address] Hep Bs Ab <5.0 Normal [facility] Comment on above: Performed By: #### C [id number] #### [address] [address] Hep Bs Ag Interp Normal Negative [facility] Comment on above: Result Comment: N egative Negative Performed By: #### C [id number] #### [address] [address] Ig GAMon 05-23-2021 IgA Level 458 mg/dL High 66-436 [facility] Comment on above: Performed By: #### C [id number] #### [address] [address] IgG Level 1365 mg/dL Normal 791-1643 [facility] Comment on above: Performed By: #### C [id number] #### [address] [address] IgM Level 109 mg/dL Normal 43-279 [facility] Comment on above: Performed By: #### C [id number] #### [address] [address] Lipid Panelon 05-23-2021 Cholesterol in LDL [Mass/Vol] 25 mg/dL Normal 0-99 [facility] Comment on above: Result Comment: The equation being used in this calculation is LDL = (Chol - HDL) - (Trig / 5) The optimal value of LDL for individual patients may vary. The patient's history of Artherosclerosis and other cardiac risk factors should be considered. Performed By: #### L CARLOS #### [address] [address] Cardiac Risk 2.6 Normal [facility] Comment on above: Result Comment: Men Women 1/2 Average 3.43 3.27 Average 4.97 4.44 2x Average 9.55 7.05 3x Average 23.99 11.04 Performed By: #### L CARLOS #### [address] [address] Cholesterol [Mass/Vol] 91 mg/dL Normal 25-[address] [facility] Comment on above: Result Comment: 0 - 17 years of age: Desirable 0-170 Borderline High 170-199 High >=200 18 years and older: Acceptable <200 Borderline High 200-239 High >=240 Performed By: #### L CARLOS #### [address] [address] Cholesterol in HDL [Mass/Vol] 34.9 mg/dL Low 40.0-60.0 [facility] Comment on above: Performed By: #### L CARLOS #### [address] [address] Cholesterol in VLDL [Mass/Vol] 31 mg/dL Normal 8-39 [facility] Comment on above: Performed By: #### L CARLOS #### [address] [address] Triglyceride [Mass/Vol] 155 mg/dL Normal B [facility] Comment on above: Result Comment: 0 - 17 years of age: Trig 90 - 129 Borderline High Trig => 130 High 18 years and older: Trig 150 - 199 Borderline High Trig 200 - 499 High Trig =>500 Very High Performed By: #### L CARLOS #### [address] [address] PTon 05-23-2021 INR Coag (PPP) [Relative time] 1.2 {INR} Normal <=3.5 [facility] Comment on above: Result Comment: INR has no normal range. INR Therapeutic range is: 2.0-3.0 (AF, CVA, TIAs, DVT prophylaxis, acute DVT) 2.5-3.5 ([facility] heart valves, recurrent thrombosis/emboli) Performed By: #### P TINR #### [address] [address] PT Coag (PPP) [Time] 12.2 s High 9.4-12.1 [facility] Comment on above: Performed By: #### P TINR #### [address] [address] TIBCon 05-23-2021 Iron [Mass/Vol] 44 ug/dL Normal 28-170 [facility] Comment on above: Performed By: #### T IBC #### [facility] [address] [place] [address] Iron Sat 12.8 % Low >=16.0 [facility] Comment on above: Performed By: #### T IBC #### [facility] [address] [place] [address] TIBC 344 mcg/dL Normal 261-478 [facility] Comment on above: Performed By: #### T IBC #### [facility] [address] [place] [address] Transferrin [Mass/Vol] 246 mg/dL Normal 192-[address] [facility] Comment on above: Performed By: #### T IBC #### [facility] [address] [place] [address] CBC Auto DifferentialOrdered By: Mukesh Castanon on 04-19-2021 Absolute Eos # 0.07 [facility] Work Phone: Absolute Immature Granulocyte <0.03 [facility] Work Phone: Absolute Lymph # 1.19 [facility] Work Phone: Absolute Sullivan # 0.25 [facility] Work Phone: Basophils (Bld) [#/Vol] 10*3/uL [facility] Work Phone: Basophils/100 WBC (Bld) 1 % 0 - 2 % [facility] Work Phone: Differential Type NOT REPORTED [facility] Work Phone: Eosinophils/100 WBC (Bld) 2 % 1 - 4 % [facility] Work Phone: Hematocrit (Bld) [Volume fraction] 35.2 % Low 36.3 - 47.1 % [facility] Work Phone: Hemoglobin.gastrointesti nal spec 1 Ql (Stl) 11.1 g/dL Low 11.9 - 15.1 g/dL [employer] Phone: Immature granulocytes/100 WBC (Bld) 1 % High 0 [employer] Phone: Interpretation and review of laboratory results Abnormal [employer] Phone: Lymphocytes/100 WBC (Bld) 28 % 24 - 43 % [employer] Phone: MCH (RBC) [Entitic mass] 27.4 pg 25. 2 - 33.5 pg [employer] Phone: MCHC (RBC) [Mass/Vol] 31.5 g/dL 28.4 - 34.8 g/dL [employer] Phone: MCV (RBC) [Entitic vol] 86.9 fL 82.6 - 102.9 fL [employer] Phone: Monocytes/100 WBC (Bld) 6 % 3 - 12 % [facility] [employer] Phone: NRBC Automated 0.0 0.0 per 100 WBC [employer] Phone: Platelet distribution width (Bld) [Ratio] 14.9 % High 11.8 - 14.4 % [employer] Phone: Platelet Estimate NOT REPORTED [employer] Phone: Platelet mean volume (Bld) [Entitic vol] 10.1 fL 8.1 - 13.5 fL [employer] Phone: Platelets (Bld) [#/Vol] 121 10*3/uL Low [employer] Phone: RBC (Bld) [#/Vol] 4.05 10*6/uL 3.95 - 5.1 1 m/uL [employer] Phone: RBC (Bld) [#/Vol] NOT REPORTED [employer] Phone: Segmented neutrophils/100 WBC (Bld) 62 % 36 - 65 % [employer] Phone: Segs Absolute 2.72 [email or web address] Work Phone: WBC (Bld) [#/Vol] 4.3 10*3/uL [employer] Phone: WBC (Bld) [#/Vol] NOT REPORTED [employer] Phone: [employer] Work Phone: Comprehensive Metabolic Pane lOrdered By: Mukesh Castanon on 04-19-2021 Albumin [Mass/Vol] 3.7 g/dL 3.5 - 5.2 g/dL [employer] Phone: Albumin/Globulin [Mass ratio] 1.1 {ratio} [employer] Phone: ALP (Bld) [Catalytic activity/Vol] 111 U/L High 35 - 104 U/L [employer] Work Phone: ALT [Catalytic activity/Vol] 24 U/L 5 - 33 U/L [employer] Phone: Anion gap [Moles/Vol] 12 mmol/L 9 - 17 mmol/L [employer] Phone: AST [Catalytic activity/Vol] 24 U/L <32 [employer] Phone: Bilirubin [Mass/Vol] 0.51 mg/dL 0.3 - 1 .2 mg/dL [employer] Phone: Calcium [Mass/Vol] 9.3 mg/dL 8.6 - 10. 4 mg/dL [employer] Phone: Chloride [Moles/Vol] 95 mmol/L Low 98 - 10 7 mmol/L [employer] Phone: CO2 [Moles/Vol] 27 mmol/L 20 - 31 mmol/L [employer] Phone: Creatinine [Mass/Vol] 0.84 mg/dL 0.50 - 0.90 mg/dL [employer] Phone: Free PSA/Total PSA [Mass fraction] 7.2 g/dL 6.4 - 8.3 g/dL [employer] Phone: GFR >60 >60 mL/min [email or web address] Phone: GFR Non- >60 >60 mL/min [employer] Phone: Glucose [Mass/Vol] 190 mg/dL High 70 - 99 mg/dL [employer] Phone: Interpretation and review of laboratory results Abnormal [employer] Phone: Potassium [Moles/Vol] 5.1 mmol/L 3.7 - 5.3 mmol/L [employer] Phone: Sodium [Moles/Vol] 134 mmol/L Low 135 - 144 mmol/L [employer] Phone: Urea nitrogen (BldV) [Mass/Vol] 12 mg/dL 8 - 23 mg/dL [employer] Phone: Urea nitrogen/Creatinine (Bld) [Mass ratio] 14 [employer] Phone: [employer] Phone: Laboratory - Chemistry and C hemistry - challengeOrdered By: Mukesh Castanon on 04-19-2021 GFR/1.73 sq M.predicted MDRD (S/P/Bld) [Vol rate/Area] [employer] Phone: Comment on above: Average GFR for 60-6 9 years old: 85 mL/min/1.73sq m Chronic Kidney Disease: <60 mL/min/1.73sq m Kidney failure: <15 mL/min/1.73sq m eGFR calculated using average adult body mass. Additional eGFR calculator available at: http://www.onkea.[employer]/multiple_crcl_2011.htm Stage 1: Some kidney damage normal GFR Stage 2: Mild kidney damage GFR 60-89 Stage 3: Moderate kidney damage GFR 30-59 Stage 4: Severe kidney damage GFR 15-29 Stage 5: Severe kidney damage GFR <15 ESRD - chronic treatment by dialysis or transplant Uric AcidOrdered By: Madai pederson on 04-19-2021 Interpretation and review of laboratory results Abnormal [employer] Phone: Urate [Mass/Vol] 8.3 mg/dL High 2.4 - 5.7 mg/dL [employer] Phone: [employer] Phone: CT lung screen [Initial/Jillian al]Ordered By: Mukesh Castanon on 04-09-2021 1. No suspicious pulmonary nodule or mass. Moderate emphysema. 2. Mild dependent atelectasis, multifocal scarring and respiratory motion primarily in the right lower lobe and lingula. Traction bronchiectasis in the right lower lobe and lingula. 3. Atherosclerotic calcification of the aorta and branch vasculature. Coronary artery disease. Prominent mediastinal lymph nodes. LUNG RADS: Per ACR Lung-RADS Version 1.1 Category 1, Negative (No nodules and definitely benign nodules). Management: Continue annual lung screening with LDCT in 12 months. RECOMMENDATIONS: If you would like to register your patient with the [employer] Lung Nodule/Lung Cancer Screening Program, please contact the Nurse Navigator at [phone] . [employer] Phone: EXAMINATION: LOW DOSE SCREENING CT OF THE CHEST WITHOUT CONTRAST 04/09/2021 10:50 am TECHNIQUE: Low dose lung cancer screening CT of the chest was performed without the administration of intravenous contrast. Multiplanar reformatted images are provided for review. Dose modulation, iterative reconstruction, and/or weight based adjustment of the mA/kV was utilized to reduce the radiation dose to as low as reasonably achievable. Lfdeh-wl-yfej: 32 cm Dose Length Product: 92.15 mGy CTDlvol: 2.93 mGy COMPARISON: 02/01/2020 HISTORY: Screening. Patient Age: 65 y/o Number of pack years of smokin pack years If no longer smoking, number of years since cessation: 11.5 years Other symptoms: None. Additional history: ORDERING SYSTEM PROVIDED HISTORY: Personal history of nicotine dependence TECHNOLOGIST PROVIDED HISTORY: Age: 65 y.o. Smoking History: Social History Tobacco Use Smoking status: Former Smoker Packs/day: 1.00 Years: 30.00 Pack years: 30 Types: Cigarettes Quit date: 2009 Years since quittin.5 Smokeless tobacco: Never Used Vaping Use Vaping Use: Never used Alcohol use: Never Drug use: Never Pack years: [address] lung screen: 02/01/2020 Is there documentation of shared decision making?->Yes Does the patient show any signs or symptoms of lung cancer?->No Is this the first (baseline) CT or an annual exam?->Annual Is this a low dose CT or a routine CT?->Low Dose CT Smoking Status?->Former Smoker Date quit smoking? (must be within 15 years)->08/17/09 Smoking packs per day?->1 Years smoking?->30 FINDINGS: Mediastinum: Atherosclerotic calcification of the aorta and branch vasculature. Coronary artery disease. No pericardial or pleural effusions. No axillary, mediastinal, or hilar lymphadenopathy. Visualized thyroid gland grossly unchanged. Prominent mediastinal lymph nodes. No periaortic or mediastinal hemorrhage. Lungs/Pleura: Trachea and proximal central airways appear patent. Mild dependent atelectasis, scarring and respiratory motion primarily in the right lower lobe and lingula. Moderate emphysema. No pneumothorax. Findings are similar in appearance compared with the 02/01/2020 exam. Traction bronchiectasis is seen within the right lower lobe and lingula. No suspicious pulmonary nodule or mass. Upper Abdomen: Atherosclerotic calcification of the upper abdominal aorta and branch vasculature. Soft Tissues/Bones: Mild diffuse degenerative changes throughout the spine. Fusion hardware in the lower cervical spine. [employer] Phone: Isidro, [facility] Incoming Radiant Results From [employer] - 04/09/2021 11:56 AM EDT EXAMINATION: LOW DOSE SCREENING CT OF THE CHEST WITHOUT CONTRAST 04/09/2021 10:50 am TECHNIQUE: Low dose lung cancer screening CT of the chest was performed without the administration of intravenous contrast. Multiplanar reformatted images are provided for review. Dose modulation, iterative reconstruction, and/or weight based adjustment of the mA/kV was utilized to reduce the radiation dose to as low as reasonably achievable. Woton-vl-echr: 32 cm Dose Length Product: 92.15 mGy CTDlvol: 2.93 mGy COMPARISON: 02/01/2020 HISTORY: Screening. Patient Age: 65 y/o Number of pack years of smokin pack years If no longer smoking, number of years since cessation: 11.5 years Other symptoms: None. Additional history: ORDERING SYSTEM PROVIDED HISTORY: Personal history of nicotine dependence TECHNOLOGIST PROVIDED HISTORY: Age: 65 y.o. Smoking History: Social History Tobacco Use Smoking status: Former Smoker Packs/day: 1.00 Years: 30.00 Pack years: 30 Types: Cigarettes Quit date: 2009 Years since quittin.5 Smokeless tobacco: Never Used Vaping Use Vaping Use: Never used Alcohol use: Never Drug use: Never Pack years: [address] lung screen: 02/01/2020 Is there documentation of shared decision making?->Yes Does the patient show any signs or symptoms of lung cancer?->No Is this the first (baseline) CT or an annual exam?->Annual Is this a low dose CT or a routine CT?->Low Dose CT Smoking Status?->Former Smoker Date quit smoking? (must be within 15 years)->/08/26 Smoking packs per day?->1 Years smoking?->30 FINDINGS: Mediastinum: Atherosclerotic calcification of the aorta and branch vasculature. Coronary artery disease. No pericardial or pleural effusions. No axillary, mediastinal, or hilar lymphadenopathy. Visualized thyroid gland grossly unchanged. Prominent mediastinal lymph nodes. No periaortic or mediastinal hemorrhage. Lungs/Pleura: Trachea and proximal central airways appear patent. Mild dependent atelectasis, scarring and respiratory motion primarily in the right lower lobe and lingula. Moderate emphysema. No pneumothorax. Findings are similar in appearance compared with the 02/01/2020 exam. Traction bronchiectasis is seen within the right lower lobe and lingula. No suspicious pulmonary nodule or mass. Upper Abdomen: Atherosclerotic calcification of the upper abdominal aorta and branch vasculature. Soft Tissues/Bones: Mild diffuse degenerative changes throughout the spine. Fusion hardware in the lower cervical spine. IMPRESSION: 1. No suspicious pulmonary nodule or mass. Moderate emphysema. 2. Mild dependent atelectasis, multifocal scarring and respiratory motion primarily in the right lower lobe and lingula. Traction bronchiectasis in the right lower lobe and lingula. 3. Atherosclerotic calcification of the aorta and branch vasculature. Coronary artery disease. Prominent mediastinal lymph nodes. LUNG RADS: Per ACR Lung-RADS Version 1.1 Category 1, Negative (No nodules and definitely benign nodules). Management: Continue annual lung screening with LDCT in 12 months. RECOMMENDATIONS: If you would like to register your patient with the [employer] [facility] Nodule/Lung Cancer Screening Program, please contact the Nurse Navigator at [phone] . [employer] Work Phone: [employer] Phone: CBC auto differentialOrdered By: Sophie Solomon on 02-11-2021 Absolute Eos # 0.05 [employer] [facility] Work Phone: Absolute Immature Granulocyte <0.03 [employer] Phone: Absolute Lymph # 1.22 ralali [facility] Work Phone: Absolute Sullivan # 0.31 [facility] Work Phone: Basophils (Bld) [#/Vol] 10*3/uL M [employer] Work Phone: Basophils/100 WBC (Bld) 1 % 0 - 2 % M [employer] Phone: Differential Type NOT REPORTED [employer] Phone: Eosinophils/100 WBC (Bld) 2 % 1 - 4 % [employer] Phone: Hematocrit (Bld) [Volume fraction] 32.3 % Low 36.3 - 47.1 % [employer] Phone: Hemoglobin.gastrointesti nal spec 1 Ql (Stl) 10.0 g/dL Low 11.9 - 15.1 g/dL [employer] Phone: Immature granulocytes/100 WBC (Bld) 0 % 0 [employer] Phone: Interpretation and review of laboratory results Abnormal [employer] Phone: Lymphocytes/100 WBC (Bld) 43 % 24 - 43 % [employer] Phone: MCH (RBC) [Entitic mass] 27.3 pg 25. 2 - 33.5 pg [employer] Phone: MCHC (RBC) [Mass/Vol] 31.0 g/dL 28.4 - 34.8 g/dL [employer] Phone: MCV (RBC) [Entitic vol] 88.3 fL 82.6 - 102.9 fL [employer] Work Phone: Monocytes/100 WBC (Bld) 11 % 3 - 12 % [facility] Work Phone: NRBC Automated 0.0 0.0 per 100 WBC [employer] Phone: Platelet distribution width (Bld) [Ratio] 14.9 % High 11.8 - 14.4 % [employer] Work Phone: Platelet Estimate NOT REPORTED [employer] Phone: Platelet mean volume (Bld) [Entitic vol] 9.7 fL 8.1 - 13.5 fL [employer] Phone: Platelets (Bld) [#/Vol] 113 10*3/uL Low [employer] Phone: RBC (Bld) [#/Vol] 3.66 10*6/uL Low 3.95 - 5.1 1 m/uL [employer] Work Phone: RBC (Bld) [#/Vol] NOT REPORTED [employer] Phone: Segmented neutrophils/100 WBC (Bld) 44 % 36 - 65 % [employer] Phone: Segs Absolute 1.25 Low [employer] Work Phone: WBC (Bld) [#/Vol] 2.9 10*3/uL Low [employer] Work Phone: WBC (Bld) [#/Vol] NOT REPORTED [facility]: [employer] Work Phone: Glucose, Whole BloodOrdered By: Sophie Solomon on 02-11-2021 Glucose [Mass/Vol] 115 mg/dL High 74 - 100 mg/dL [employer] Phone: Interpretation and review of laboratory results Abnormal [employer] Phone: [employer] Work Phone: Glucose [Mass/Vol] 88 mg/dL 74 - 100 mg/dL [employer] Phone: [employer] Phone: CBC auto differentialOrdered By: Sophie Solomon on 02-10-2021 Absolute Eos # 0.05 [employer] [facility] Work Phone: Absolute Immature Granulocyte 0.00 [facility] Work Phone: Absolute Lymph # 0.89 Low ralali [facility] Work Phone: Absolute Sullivan # 0.29 [facility] Work Phone: Basophils (Bld) [#/Vol] 0.00 10*3/uL [employer] Work Phone: Basophils/100 WBC (Bld) 0 % 0 - 2 % [facility] Work Phone: Differential Type NOT REPORTED [facility] Phone: Eosinophils/100 WBC (Bld) 2 % 1 - 4 % [facility] Phone: Hematocrit (Bld) [Volume fraction] 30.5 % Low 36.3 - 47.1 % [facility] Phone: Hemoglobin.gastrointesti nal spec 1 Ql (Stl) 9.4 g/dL Low 11.9 - 15.1 g/dL [employer] Work Phone: Immature granulocytes/100 WBC (Bld) 0 % 0 [employer] Phone: Interpretation and review of laboratory results Abnormal [employer] Phone: Lymphocytes/100 WBC (Bld) 37 % 24 - 43 % [employer] Phone: MCH (RBC) [Entitic mass] 27.6 pg 25. 2 - 33.5 pg [employer] Phone: MCHC (RBC) [Mass/Vol] 30.8 g/dL 28.4 - 34.8 g/dL [employer] Phone: MCV (RBC) [Entitic vol] 89.4 fL 82.6 - 102.9 fL [employer] Phone: Monocytes/100 WBC (Bld) 12 % 3 - 12 % M [employer] Phone: Morphology Lucio (Bld) [Interp] Normal [employer] Phone: NRBC Automated 0.0 0.0 per 100 WBC [employer] Phone: Platelet distribution width (Bld) [Ratio] 14.9 % High 11.8 - 14.4 % [employer] Phone: Platelet Estimate NOT REPORTED [employer] Phone: Platelet mean volume (Bld) [Entitic vol] NOT REPORTED 8.1 - 13.5 fL [employer] Phone: Platelets (Bld) [#/Vol] See Reflexed IPF Result [employer] Phone: RBC (Bld) [#/Vol] 3.41 10*6/uL Low 3.95 - 5.1 1 m/uL [employer] Phone: RBC (Bld) [#/Vol] NOT REPORTED [employer] Phone: Segmented neutrophils/100 WBC (Bld) 49 % 36 - 65 % [employer] Phone: Segs Absolute 1.17 Low [email or web address] Work Phone: WBC (Bld) [#/Vol] 2.4 10*3/uL Low [employer] Phone: WBC (Bld) [#/Vol] NOT REPORTED [employer] Phone: [employer] Work Phone: Culture, UrineOrdered By: Lizbeth Mitchell on 02-10-2021 Bacteria identified Cx Nom (U) ESCHERICHIA COLI >[id number] CFU/ML Abnormal [employer] Phone: Interpretation and review of laboratory results Abnormal [employer] Phone: Special Requests NOT REPORTED [employer] Phone: Specimen Description .URINE,STRAIGHT CATHETER [employer] Phone: [employer] Phone: EKG Rhythm StripOrdered By: Unknown Result on 02-10-2021 re-labeled to Sinus Rhythm [employer] Phone: [employer] Phone: re-labeled to Sinus Rhythm [employer] Phone: [employer] Phone: Glucose, Whole BloodOrdered By: Sophie Solomon on 02-10-2021 Glucose [Mass/Vol] 135 mg/dL High 74 - 100 mg/dL [employer] Phone: Interpretation and review of laboratory results Abnormal [employer] Phone: [employer] Phone: Glucose [Mass/Vol] 186 mg/dL High 74 - 100 mg/dL [employer] Phone: Interpretation and review of laboratory results Abnormal [employer] Phone: [facility] Work Phone: Glucose [Mass/Vol] 116 mg/dL High 74 - 100 mg/dL [facility] Work Phone: Interpretation and review of laboratory results Abnormal [facility] Work Phone: [facility] [employer] Work Phone: Glucose [Mass/Vol] 147 mg/dL High 74 - 100 mg/dL [facility] [employer] Work Phone: Interpretation and review of laboratory results Abnormal [facility] [employer] Work Phone: [facility] [employer] Work Phone: Immature Platelet FractionOr dered By: Sophie Solomon on 02-10-2021 Interpretation and review of laboratory results Abnormal [facility] [employer] Work Phone: Platelet, Fluorescence 110 Low Me [facility] [employer] Work Phone: Platelet, Immature Fraction 2.4 % 1.1 - 10.3 % [facility] [employer] Work Phone: [facility] [employer] Work Phone: CBC auto differentialOrdered By: Sophie Solomon on 02-09-2021 Absolute Eos # 0.03 [facility] Work Phone: Absolute Immature Granulocyte 0.03 [facility] Work Phone: Absolute Lymph # 1.05 Low [facility] Work Phone: Absolute Sullivan # 0.28 [facility] Work Phone: Basophils (Bld) [#/Vol] 0.00 10*3/uL [facility] [employer] Work Phone: Basophils/100 WBC (Bld) 0 % 0 - 2 % M [facility] [employer] Work Phone: Differential Type NOT REPORTED [facility] [employer] Work Phone: Eosinophils/100 WBC (Bld) 1 % 1 - 4 % [facility] [employer] Work Phone: Hematocrit (Bld) [Volume fraction] 33.4 % Low 36.3 - 47.1 % [employer] Phone: Hemoglobin.gastrointesti nal spec 1 Ql (Stl) 10.2 g/dL Low 11.9 - 15.1 g/dL [employer] Phone: Immature granulocytes/100 WBC (Bld) 1 % High 0 [employer] Phone: Interpretation and review of laboratory results Abnormal [employer] Phone: Lymphocytes/100 WBC (Bld) 34 % 24 - 43 % [employer] Phone: MCH (RBC) [Entitic mass] 27.6 pg 25. 2 - 33.5 pg [employer] Phone: MCHC (RBC) [Mass/Vol] 30.5 g/dL 28.4 - 34.8 g/dL [employer] Phone: MCV (RBC) [Entitic vol] 90.5 fL 82.6 - 102.9 fL [employer] Phone: Monocytes/100 WBC (Bld) 9 % 3 - 12 % [employer] Phone: Morphology Lucio (Bld) [Interp] MACROCYTOSIS PRESENT [email or web address] Work Phone: Morphology Lucio (Bld) [Interp] Large platelets noted [employer] Phone: Morphology Lucio (Bld) [Interp] Platelet scan shows Decreased Platelets [employer] Phone: NRBC Automated 0.0 0.0 per 100 WBC [employer] Phone: Platelet distribution width (Bld) [Ratio] 15.0 % High 11.8 - 14.4 % [employer] Phone: Platelet Estimate NOT REPORTED [employer] Phone: Platelet mean volume (Bld) [Entitic vol] NOT REPORTED 8.1 - 13.5 fL [employer] Phone: Platelets (Bld) [#/Vol] See Reflexed IPF Result [employer] Phone: RBC (Bld) [#/Vol] 3.69 10*6/uL Low 3.95 - 5.1 1 m/uL [employer] Phone: RBC (Bld) [#/Vol] NOT REPORTED [employer] Phone: Segmented neutrophils/100 WBC (Bld) 55 % 36 - 65 % [employer] Phone: Segs Absolute 1.71 [email or web address] Work Phone: WBC (Bld) [#/Vol] 3.1 10*3/uL Low [employer] Phone: WBC (Bld) [#/Vol] NOT REPORTED [employer] Phone: [employer] Phone: EKG Rhythm StripOrdered By: Unknown Result on 02-09-2021 re-labeled to Sinus Rhythm [employer] Phone: [employer] Phone: re-labeled to Sinus Rhythm [employer] Phone: [employer] Phone: re-labeled to Sinus Rhythm [employer] Phone: [employer] Phone: Glucose, Whole BloodOrdered By: Sophie Solomon on 02-09-2021 Glucose [Mass/Vol] 177 mg/dL High 74 - 100 mg/dL [employer] Phone: Interpretation and review of laboratory results Abnormal [employer] Phone: [employer] Phone: Glucose [Mass/Vol] 187 mg/dL High 74 - 100 mg/dL [employer] Phone: Interpretation and review of laboratory results Abnormal [employer] Phone: [employer] Work Phone: Glucose [Mass/Vol] 156 mg/dL High 74 - 100 mg/dL [employer] Phone: Interpretation and review of laboratory results Abnormal [employer] Phone: [employer] Phone: Glucose [Mass/Vol] 105 mg/dL High 74 - 100 mg/dL [employer] Phone: Interpretation and review of laboratory results Abnormal [employer] Phone: [employer] Phone: Hemoglobin [id number] By: Ana Solomon on 02-09-2021 Glucose [Mass/Vol] 166 mg/dL [employer] Phone: Comment on above: The ADA and AACC rec ommend providing the estimated average glucose result to permit better patient understanding of their HBA1c result. HbA1c (Bld) [Mass fraction] 7.4 % High 4.0 - 6.0 % [employer] Phone: Interpretation and review of laboratory results Abnormal [employer] Phone: [employer] Phone: Immature Platelet FractionOr dered By: Sophie Solomon on 02-09-2021 Interpretation and review of laboratory results Abnormal [employer] Phone: Platelet, Fluorescence 102 Low [employer] Work Phone: Platelet, Immature Fraction 3.2 % 1.1 - 10.3 % [employer] Phone: [employer] Phone: CBC auto differentialOrdered By: Sophie Solomon on 02-08-2021 Absolute Eos # <0.03 [employer] Work Phone: Absolute Immature Granulocyte <0.03 [employer] Work Phone: Absolute Lymph # 0.96 Low [employer] [facility] Work Phone: Absolute Sullivan # 0.37 [employer] [facility] Work Phone: Basophils (Bld) [#/Vol] 10*3/uL [employer] Work Phone: Basophils/100 WBC (Bld) 0 % 0 - 2 % M [employer] Work Phone: Differential Type NOT REPORTED [employer] Phone: Eosinophils/100 WBC (Bld) 0 % Low 1 - 4 % [employer] Phone: Hematocrit (Bld) [Volume fraction] 35.7 % Low 36.3 - 47.1 % [employer] Work Phone: Hemoglobin.gastrointesti nal spec 1 Ql (Stl) 10.8 g/dL Low 11.9 - 15.1 g/dL [employer] Phone: Immature granulocytes/100 WBC (Bld) 0 % 0 [employer] Phone: Interpretation and review of laboratory results Abnormal [employer] Phone: Lymphocytes/100 WBC (Bld) 21 % Low 24 - 43 % [employer] Phone: MCH (RBC) [Entitic mass] 27.2 pg 25. 2 - 33.5 pg [employer] Phone: MCHC (RBC) [Mass/Vol] 30.3 g/dL 28.4 - 34.8 g/dL [employer] Phone: MCV (RBC) [Entitic vol] 89.9 fL 82.6 - 102.9 fL [employer] Phone: Monocytes/100 WBC (Bld) 8 % 3 - 12 % [employer] Phone: NRBC Automated 0.0 0.0 per 100 WBC [employer] Phone: Platelet distribution width (Bld) [Ratio] 15.1 % High 11.8 - 14.4 % [employer] Phone: Platelet Estimate NOT REPORTED [employer] Phone: Platelet mean volume (Bld) [Entitic vol] NOT REPORTED 8.1 - 13.5 fL [employer] Phone: Platelets (Bld) [#/Vol] See Reflexed IPF Result [employer] Phone: RBC (Bld) [#/Vol] 3.97 10*6/uL 3.95 - 5.1 1 m/uL [employer] Phone: RBC (Bld) [#/Vol] NOT REPORTED [employer] Phone: Segmented neutrophils/100 WBC (Bld) 71 % High 36 - 65 % [employer] Phone: Segs Absolute 3.28 [email or web address] Work Phone: WBC (Bld) [#/Vol] 4.7 10*3/uL [employer] Phone: WBC (Bld) [#/Vol] NOT REPORTED [employer] Phone: [employer] Phone: Glucose, Whole BloodOrdered By: Sophie Solomon on 02-08-2021 Glucose [Mass/Vol] 189 mg/dL High 74 - 100 mg/dL [employer] Phone: Interpretation and review of laboratory results Abnormal [employer] Phone: [employer] Phone: Glucose [Mass/Vol] 163 mg/dL High 74 - 100 mg/dL [employer] Phone: Interpretation and review of laboratory results Abnormal [employer] Phone: [employer] Work Phone: Glucose [Mass/Vol] 225 mg/dL High 74 - 100 mg/dL [employer] Phone: Interpretation and review of laboratory results Abnormal [employer] Phone: [employer] Phone: Glucose [Mass/Vol] 164 mg/dL High 74 - 100 mg/dL [employer] Phone: Interpretation and review of laboratory results Abnormal [employer] Phone: [employer] Phone: Glucose [Mass/Vol] 165 mg/dL High 74 - 100 mg/dL [employer] Phone: Interpretation and review of laboratory results Abnormal [employer] Phone: [employer] Phone: Immature Platelet FractionOr dered By: Sophie Solomon on 02-08-2021 Interpretation and review of laboratory results Abnormal [employer] Phone: Platelet, Fluorescence [address]: Platelet, Immature Fraction 2.9 % 1.1 - 10.3 % [employer] Phone: [employer] Work Phone: Valproic acid level, totalOr dered By: Sophie Solomon on 02-08-2021 Interpretation and review of laboratory results Abnormal [employer] Phone: Valproic Acid Lvl 13 ug/mL Low 50 - 125 ug/mL [employer] Phone: Valproic Date last dose NOT REPORTED [facility]: Valproic Dose amount NOT REPORTED [facility] Work Phone: Valproic Time last dose NOT REPORTED [employer] Work Phone: [employer] Work Phone: AmmoniaOrdered By: Carlos tinoco on 02-07-2021 Ammonia (P) [Moles/Vol] 32 umol/L 11 - 41 umol/L [employer] [facility] Work Phone: [employer] Work Phone: CBC auto differentialOrdered By: Carlos Mitchell on 02-07-2021 Absolute Eos # <0.03 [employer] [facility] Work Phone: Absolute Immature Granulocyte <0.03 [employer] [facility] Work Phone: Absolute Lymph # 0.80 [employer] [facility] Work Phone: Absolute Sullivan # 0.51 [employer] [facility] Work Phone: Basophils (Bld) [#/Vol] 10*3/uL [employer] Work Phone: Basophils/100 WBC (Bld) 0 % 0 - 2 % [employer] Work Phone: Differential Type NOT REPORTED [employer] Work Phone: Eosinophils/100 WBC (Bld) 0 % Low 1 - 4 % [employer] Work Phone: Hematocrit (Bld) [Volume fraction] 35.6 % Low 36.3 - 47.1 % [employer] Work Phone: Hemoglobin.gastrointesti nal spec 1 Ql (Stl) 11.2 g/dL Low 11.9 - 15.1 g/dL [employer] Work Phone: Immature granulocytes/100 WBC (Bld) 0 % 0 [employer] Work Phone: Interpretation and review of laboratory results Abnormal [employer] Work Phone: Lymphocytes/100 WBC (Bld) 12 % Low 24 - 43 % [employer] Work Phone: MCH (RBC) [Entitic mass] 27.8 pg 25. 2 - 33.5 pg [employer] Work Phone: MCHC (RBC) [Mass/Vol] 31.5 g/dL 28.4 - 34.8 g/dL [employer] Phone: MCV (RBC) [Entitic vol] 88.3 fL 82.6 - 102.9 fL [employer] Work Phone: Monocytes/100 WBC (Bld) 8 % 3 - 12 % [employer] Work Phone: NRBC Automated 0.0 0.0 per 100 WBC [employer] Phone: Platelet distribution width (Bld) [Ratio] 15.3 % High 11.8 - 14.4 % [employer] Phone: Platelet Estimate NOT REPORTED [employer] Work Phone: Platelet mean volume (Bld) [Entitic vol] 10.4 fL 8.1 - 13.5 fL [employer] Phone: Platelets (Bld) [#/Vol] 110 10*3/uL Low [employer] Phone: RBC (Bld) [#/Vol] 4.03 10*6/uL 3.95 - 5.1 1 m/uL [employer] Work Phone: RBC (Bld) [#/Vol] NOT REPORTED [employer] Phone: Segmented neutrophils/100 WBC (Bld) 80 % High 36 - 65 % [employer] Work Phone: Segs Absolute 5.45 [email or web address] Work Phone: WBC (Bld) [#/Vol] 6.8 10*3/uL [employer] Work Phone: WBC (Bld) [#/Vol] NOT REPORTED [employer] Work Phone: [employer] Phone: COVID-19, RapidOrdered By: Bernabe Mitchell on 02-07-2021 SARS-CoV-2 (COVID-19) RNA MARIUSZ+probe Ql (Unsp spec) Not detected Not Detected [employer] Phone: Comment on above: Rapid NAAT: The specimen is NEGATIVE for SARS-CoV-2, the novel coronavirus associated with COVID-19. The ID NOW COVID-19 assay is designed to detect the virus that causes COVID-19 in patients with signs and symptoms of infection who are suspected of COVID-19. An individual without symptoms of COVID-19 and who is not shedding SARS-CoV-2 virus would expect to have a negative (not detected) result in this assay. Negative results should be treated as presumptive and, if inconsistent with clinical signs and symptoms or necessary for patient management, should be tested with an alternative molecular assay. Negative results do not preclude SARS-CoV-2 infection and should not be used as the sole basis for patient management decisions. Fact sheet for Healthcare Providers: https://www.fda.gov/media/599448/download Fact sheet for Patients: https://www.fda.gov/media/366644/download Methodology: Isothermal Nucleic Acid Amplification Specimen Description .NASOPHARYNGEAL SWAB [employer] Phone: [employer] Phone: CT ABDOMEN PELVIS WO CONTRAS T Additional Contrast? NoneOrdered By: Carlos Mitchell on 02-07-2021 1. No acute process in the abdomen or pelvis. 2. Cirrhotic liver morphology with mild splenomegaly. Consider nonemergent liver protocol MRI for HCC screening. 3. Cholelithiasis. [employer] Phone: EXAMINATION: CT OF THE ABDOMEN AND PELVIS WITHOUT CONTRAST 02/07/2021 8:10 pm TECHNIQUE: CT of the abdomen and pelvis was performed without the administration of intravenous contrast. Multiplanar reformatted images are provided for review. Dose modulation, iterative reconstruction, and/or weight based adjustment of the mA/kV was utilized to reduce the radiation dose to as low as reasonably achievable. COMPARISON: None. HISTORY: ORDERING SYSTEM PROVIDED HISTORY: patient with falls and pain to pelvis TECHNOLOGIST PROVIDED HISTORY: patient with falls and pain to pelvis Decision Support Exception - unselect if not a suspected or confirmed emergency medical condition->Emergency Medical Condition (MA) FINDINGS: Lower Chest: Three-vessel coronary artery calcification. Organs: Cirrhotic liver morphology. Cholelithiasis. No biliary ductal diltation. Pancreas is unremarkable. Adrenals are unremarkable. Mild splenomegaly. No renal calculi or hydronephrosis. Moderate calcific atherosclerosis. GI/Bowel: Bowel is non-dilated without wall thickening. Appendix is normal. Pelvis: Unremarkable. Peritoneum/Retroperi toneum:No free fluid, free air, organized fluid collection or lymphadenopathy. Bones: Multilevel degenerative disc disease. Nonspecific skin thickening of the anterior abdominal wall. [employer] Work Phone: Isidro, [facility] Incoming Radiant Results From [employer] - 02/07/2021 8:41 PM EDT EXAMINATION: CT OF THE ABDOMEN AND PELVIS WITHOUT CONTRAST 02/07/2021 8:10 pm TECHNIQUE: CT of the abdomen and pelvis was performed without the administration of intravenous contrast. Multiplanar reformatted images are provided for review. Dose modulation, iterative reconstruction, and/or weight based adjustment of the mA/kV was utilized to reduce the radiation dose to as low as reasonably achievable. COMPARISON: None. HISTORY: ORDERING SYSTEM PROVIDED HISTORY: patient with falls and pain to pelvis TECHNOLOGIST PROVIDED HISTORY: patient with falls and pain to pelvis Decision Support Exception - unselect if not a suspected or confirmed emergency medical condition->Emergency Medical Condition (MA) FINDINGS: Lower Chest: Three-vessel coronary artery calcification. Organs: Cirrhotic liver morphology. Cholelithiasis. No biliary ductal diltation. Pancreas is unremarkable. Adrenals are unremarkable. Mild splenomegaly. No renal calculi or hydronephrosis. Moderate calcific atherosclerosis. GI/Bowel: Bowel is non-dilated without wall thickening. Appendix is normal. Pelvis: Unremarkable. Peritoneum/Retroperi toneum:No free fluid, free air, organized fluid collection or lymphadenopathy. Bones: Multilevel degenerative disc disease. Nonspecific skin thickening of the anterior abdominal wall. IMPRESSION: 1. No acute process in the abdomen or pelvis. 2. Cirrhotic liver morphology with mild splenomegaly. Consider nonemergent liver protocol MRI for HCC screening. 3. Cholelithiasis. [employer] Phone: [employer] Phone: CT CERVICAL SPINE WO CONTRAS TOrdered By: Carlos Mitchell on 02-07-2021 Post-surgical changes of the cervical spine. No acute fracture or subluxation. No significant change from the prior study. [employer] Phone: EXAMINATION: CT OF THE CERVICAL SPINE WITHOUT CONTRAST 02/07/2021 7:09 pm TECHNIQUE: CT of the cervical spine was performed without the administration of intravenous contrast. Multiplanar reformatted images are provided for review. Dose modulation, iterative reconstruction, and/or weight based adjustment of the mA/kV was utilized to reduce the radiation dose to as low as reasonably achievable. COMPARISON: CT study from April 28, 2020. HISTORY: ORDERING SYSTEM PROVIDED HISTORY: fall and pain TECHNOLOGIST PROVIDED HISTORY: fall and pain Decision Support Exception - unselect if not a suspected or confirmed emergency medical condition->Emergency Medical Condition (MA) FINDINGS: BONES/ALIGNMENT: Bone mineralization is normal. The vertebral bodies and posterior elements appear intact and appropriately aligned without acute fracture or subluxation. Vertebral body stature is maintained throughout as is the normal cervical lordosis. DEGENERATIVE CHANGES: There are again seen post-surgical changes of discectomy and anterior spinal fusion involving the C5-C7 levels, remaining in stable alignment without evidence of hardware complication. No significant bony neural foraminal narrowing. SOFT TISSUES: No paraspinal soft tissue abnormality. The visualized lung apices are grossly clear. [employer] Phone: Isidro, pn Incoming Radiant Results From [employer] - 02/07/2021 8:26 PM EDT EXAMINATION: CT OF THE CERVICAL SPINE WITHOUT CONTRAST 02/07/2021 7:09 pm TECHNIQUE: CT of the cervical spine was performed without the administration of intravenous contrast. Multiplanar reformatted images are provided for review. Dose modulation, iterative reconstruction, and/or weight based adjustment of the mA/kV was utilized to reduce the radiation dose to as low as reasonably achievable. COMPARISON: CT study from April 28, 2020. HISTORY: ORDERING SYSTEM PROVIDED HISTORY: fall and pain TECHNOLOGIST PROVIDED HISTORY: fall and pain Decision Support Exception - unselect if not a suspected or confirmed emergency medical condition->Emergency Medical Condition (MA) FINDINGS: BONES/ALIGNMENT: Bone mineralization is normal. The vertebral bodies and posterior elements appear intact and appropriately aligned without acute fracture or subluxation. Vertebral body stature is maintained throughout as is the normal cervical lordosis. DEGENERATIVE CHANGES: There are again seen post-surgical changes of discectomy and anterior spinal fusion involving the C5-C7 levels, remaining in stable alignment without evidence of hardware complication. No significant bony neural foraminal narrowing. SOFT TISSUES: No paraspinal soft tissue abnormality. The visualized lung apices are grossly clear. IMPRESSION: Post-surgical changes of the cervical spine. No acute fracture or subluxation. No significant change from the prior study. [employer] Phone: [employer] Phone: CT Head WO ContrastOrdered B y: Carlos Mitchell on 02-07-2021 No evidence of acute intracranial process. Moderate atrophy and chronic small vessel ischemic changes noted. [employer] Phone: EXAMINATION: CT OF THE HEAD WITHOUT CONTRAST 02/07/2021 7:09 pm TECHNIQUE: CT of the head was performed without the administration of intravenous contrast. Dose modulation, iterative reconstruction, and/or weight based adjustment of the mA/kV was utilized to reduce the radiation dose to as low as reasonably achievable. COMPARISON: CT study from April 28, 2020. HISTORY: ORDERING SYSTEM PROVIDED HISTORY: fall with ms change TECHNOLOGIST PROVIDED HISTORY: fall with ms change Decision Support Exception - unselect if not a suspected or confirmed emergency medical condition->Emergency Medical Condition (MA) FINDINGS: BRAIN/VENTRICLES: The gyri and sulci have a normal appearance. There is moderate cortical and cerebellar volume loss with associated ex vacuo ventricular dilation. Moderate diffuse periventricular and subcortical deep white matter hypoattenuation noted, findings compatible with chronic small vessel ischemic disease. The mckoy-white matter differentiation is otherwise preserved throughout. There is no acute hemorrhage, mass, or mass effect. No evidence of acute territorial infarct. No abnormal extraaxial fluid collections. ORBITS: The visualized portion of the orbits demonstrate no acute abnormality. SINUSES: The mastoid air cells are normally aerated. The visualized paranasal sinuses are grossly clear. SOFT TISSUES/SKULL: No significant abnormality of the visualized skull or soft tissues. No acute fracture. No scalp hematoma. [employer] Phone: Isidro, pn Incoming Radiant Results From [employer] - 02/07/2021 8:24 PM EDT EXAMINATION: CT OF THE HEAD WITHOUT CONTRAST 02/07/2021 7:09 pm TECHNIQUE: CT of the head was performed without the administration of intravenous contrast. Dose modulation, iterative reconstruction, and/or weight based adjustment of the mA/kV was utilized to reduce the radiation dose to as low as reasonably achievable. COMPARISON: CT study from April 28, 2020. HISTORY: ORDERING SYSTEM PROVIDED HISTORY: fall with ms change TECHNOLOGIST PROVIDED HISTORY: fall with ms change Decision Support Exception - unselect if not a suspected or confirmed emergency medical condition->Emergency Medical Condition (MA) FINDINGS: BRAIN/VENTRICLES: The gyri and sulci have a normal appearance. There is moderate cortical and cerebellar volume loss with associated ex vacuo ventricular dilation. Moderate diffuse periventricular and subcortical deep white matter hypoattenuation noted, findings compatible with chronic small vessel ischemic disease. The mckoy-white matter differentiation is otherwise preserved throughout. There is no acute hemorrhage, mass, or mass effect. No evidence of acute territorial infarct. No abnormal extraaxial fluid collections. ORBITS: The visualized portion of the orbits demonstrate no acute abnormality. SINUSES: The mastoid air cells are normally aerated. The visualized paranasal sinuses are grossly clear. SOFT TISSUES/SKULL: No significant abnormality of the visualized skull or soft tissues. No acute fracture. No scalp hematoma. IMPRESSION: No evidence of acute intracranial process. Moderate atrophy and chronic small vessel ischemic changes noted. [employer] Phone: [employer] Phone: Comprehensive Metabolic Pane lOrdered By: Carlos Mitchell on 02-07-2021 Albumin [Mass/Vol] 3.8 g/dL 3.5 - 5.2 g/dL [employer] Phone: Albumin/Globulin [Mass ratio] 1.0 {ratio} [employer] Phone: ALP (Bld) [Catalytic activity/Vol] 114 U/L High 35 - 104 U/L [employer] Phone: ALT [Catalytic activity/Vol] 24 U/L 5 - 33 U/L [employer] Phone: Anion gap [Moles/Vol] 11 mmol/L 9 - 17 mmol/L [employer] Phone: AST [Catalytic activity/Vol] 27 U/L <32 [employer] Phone: Bilirubin [Mass/Vol] 0.63 mg/dL 0.3 - 1 .2 mg/dL [employer] Phone: Calcium [Mass/Vol] 9.3 mg/dL 8.6 - 10. 4 mg/dL [employer] Phone: Chloride [Moles/Vol] 100 mmol/L 98 - 10 7 mmol/L [employer] Phone: CO2 [Moles/Vol] 25 mmol/L 20 - 31 mmol/L [employer] Phone: Creatinine [Mass/Vol] 1.08 mg/dL High 0.50 - 0.90 mg/dL [employer] Phone: Free PSA/Total PSA [Mass fraction] 7.6 g/dL 6.4 - 8.3 g/dL [employer] Phone: GFR >60 >60 mL/min [email or web address] Phone: GFR Non- 51 mL/min Low >60 [employer] Phone: Glucose [Mass/Vol] 289 mg/dL High 70 - 99 mg/dL [employer] Phone: Interpretation and review of laboratory results Abnormal [employer] Phone: Potassium [Moles/Vol] 4.5 mmol/L 3.7 - 5.3 mmol/L [employer] Phone: Sodium [Moles/Vol] 136 mmol/L 135 - 144 mmol/L [employer] Phone: Urea nitrogen (BldV) [Mass/Vol] 15 mg/dL 8 - 23 mg/dL [employer] Phone: Urea nitrogen/Creatinine (Bld) [Mass ratio] 14 [employer] Phone: [employer] Phone: Laboratory - Chemistry and C hemistry - challengeOrdered By: Carlos Mitchell on 02-07-2021 GFR/1.73 sq M.predicted MDRD (S/P/Bld) [Vol rate/Area] [employer] Phone: Comment on above: Average GFR for 60-6 9 years old: 85 mL/min/1.73sq m Chronic Kidney Disease: <60 mL/min/1.73sq m Kidney failure: <15 mL/min/1.73sq m eGFR calculated using average adult body mass. Additional eGFR calculator available at: http://www.[employer]/multiple_crcl_2012.htm Stage 1: Some kidney damage normal GFR Stage 2: Mild kidney damage GFR 60-89 Stage 3: Moderate kidney damage GFR 30-59 Stage 4: Severe kidney damage GFR 15-29 Stage 5: Severe kidney damage GFR <15 ESRD - chronic treatment by dialysis or transplant Lactic Acid, PlasmaOrdered B y: Carlos Mitchell on 02-07-2021 Lactate [Moles/Vol] 1.1 mmol/L 0.5 - 2. 2 mmol/L [employer] Phone: Lactic Acid, Whole Blood NOT REPORTED 0.7 - 2.1 mmol/L [employer] Phone: [employer] Phone: Microscopic UrinalysisOrdere d By: Carlos Mitchell on 02-07-2021 - [employer] Phone: Amorphous, UA NOT REPORTED None [employer] [facility] Work Phone: Bacteria, UA 3+ Abnormal None [facility] Work Phone: Casts UA NOT REPORTED /LPF [facility] Work Phone: Crystals, UA NOT REPORTED None /HPF [facility] Work Phone: Epithelial Cells UA 0 TO 2 [facility] Work Phone: Interpretation and review of laboratory results Abnormal [facility] [employer] Work Phone: Mucus, UA NOT REPORTED None [facility] [employer] Work Phone: Other Observations UA NOT REPORTED NOT REQ. [facility] Work Phone: RBC, UA 2 TO 5 [facility] [employer] Work Phone: Renal Epithelial, UA NOT REPORTED 0 /HPF [facility] Work Phone: Trichomonas, UA NOT REPORTED None [facility] Work Phone: WBC, UA 10 TO 20 [facility] [employer] Work Phone: Yeast, UA NOT REPORTED None [facility] [employer] Work Phone: [facility] [employer] Work Phone: Protime-INROrdered By: Diego Mitchell on 02-07-2021 INR Coag (Bld) [Relative time] 1.1 {INR} [employer] Work Phone: Comment on above: Non-therapeutic Range: INR = 0.9-1.2 Therapeutic Range: Moderate Anticoagulant Intensity: INR = 2.0-3.0 High Anticoagulant Intensity: INR = 2.5-3.5 Interpretation and review of laboratory results Abnormal [facility] [employer] Work Phone: PT Coag (PPP) [Time] 14.4 s High [facility] [employer] Work Phone: [facility] [employer] Work Phone: Urinalysis Reflex to Culture Ordered By: Carlos Mitchell on 02-07-2021 Bilirubin Urine Negative NEGATIVE [facility] Work Phone: Color, UA YELLOW YELLOW [facility] Work Phone: Glucose, Ur Negative NEGATIVE [facility] Work Phone: Interpretation and review of laboratory results Abnormal [facility] Work Phone: Ketones Ql (U) Negative NEGATIVE [facility] Work Phone: Leukocyte esterase Test strip Ql (U) SMALL Abnormal NEGATIVE [facility] Work Phone: Nitrite, Urine Positive Abnormal NEGATIVE [facility] Work Phone: pH, UA 6.0 [facility] Work Phone: Protein, UA 1+ Abnormal NEGATIVE [facility] Work Phone: Specific Clay, UA 1.015 [facility] Work Phone: Turbidity UA SLIGHTLY CLOUDY Abnormal CLEAR [facility] Work Phone: Urinalysis Comments NOT REPORTED [facility] Work Phone: Urine Hgb 2+ Abnormal NEGATIVE [facility] Work Phone: Urobilinogen, Urine Normal Normal [facility] Work Phone: [facility] Work Phone: XR CHEST (SINGLE VIEW FRONTA L)Ordered By: Carlos Mitchell on 02-07-2021 Hypoventilated lungs with left basilar scarring. No acute focal airspace process. [facility] [employer] Work Phone: EXAMINATION: ONE XRAY VIEW OF THE CHEST 02/07/2021 5:08 pm COMPARISON: 11/23/2019, 02/01/2020 HISTORY: ORDERING SYSTEM PROVIDED HISTORY: ms change and fever TECHNOLOGIST PROVIDED HISTORY: ms change and fever FINDINGS: Hypoventilated lungs with similar linear scarring at the left lung base. No acute focal airspace process. No pneumothorax or pleural effusion. Cardiomediastinal contours are within normal limits and unchanged. Unchanged truncation of the right distal clavicle. Remote posttraumatic irregularity of the proximal right humerus. Cervical fusion hardware present. No acute bony findings. [employer] Phone: Isidro, Mhpn Incoming Radiant Results From [employer] - 02/07/2021 9:07 PM EDT EXAMINATION: ONE XRAY VIEW OF THE CHEST 02/07/2021 5:08 pm COMPARISON: 11/23/2019, 02/01/2020 HISTORY: ORDERING SYSTEM PROVIDED HISTORY: ms change and fever TECHNOLOGIST PROVIDED HISTORY: ms change and fever FINDINGS: Hypoventilated lungs with similar linear scarring at the left lung base. No acute focal airspace process. No pneumothorax or pleural effusion. Cardiomediastinal contours are within normal limits and unchanged. Unchanged truncation of the right distal clavicle. Remote posttraumatic irregularity of the proximal right humerus. Cervical fusion hardware present. No acute bony findings. IMPRESSION: Hypoventilated lungs with left basilar scarring. No acute focal airspace process. [employer] Phone: [employer] Phone: Basic Metabolic PanelOrdered By: Hallie Huynh on 12-03-2020 Anion gap [Moles/Vol] 12 mmol/L 9 - 17 mmol/L [employer] Phone: Calcium [Mass/Vol] 10.1 mg/dL 8.6 - 10. 4 mg/dL [employer] Phone: Chloride [Moles/Vol] 99 mmol/L 98 - 10 7 mmol/L [employer] Phone: CO2 [Moles/Vol] 22 mmol/L 20 - 31 mmol/L [employer] Phone: Creatinine [Mass/Vol] 1.1 mg/dL High 0.50 - 0.90 mg/dL [employer] Phone: GFR >60 >60 mL/min [email or web address] Phone: GFR Non- 50 mL/min Low >60 [employer] Phone: Glucose [Mass/Vol] 302 mg/dL High 70 - 99 mg/dL [employer] Phone: Interpretation and review of laboratory results Abnormal [employer] Phone: Potassium [Moles/Vol] 5.3 mmol/L 3.7 - 5.3 mmol/L [employer] Phone: Sodium [Moles/Vol] 133 mmol/L Low 135 - 144 mmol/L [employer] Phone: Urea nitrogen (BldV) [Mass/Vol] 26 mg/dL High 8 - 23 mg/dL [employer] Phone: Urea nitrogen/Creatinine (Bld) [Mass ratio] 24 High [employer] Phone: CBC Auto DifferentialOrdered By: Hallie Huynh on 12-03-2020 [employer] Eos # 0.04 [employer] [facility] Work Phone: Absolute Immature Granulocyte <0.03 [employer] Work Phone: Absolute Lymph # 1.43 [employer] [facility] Work Phone: Absolute Sullivan # 0.33 [employer] [facility] Work Phone: Basophils (Bld) [#/Vol] 10*3/uL [employer] Work Phone: Basophils/100 WBC (Bld) 0 % 0 - 2 % [employer] Phone: Differential Type NOT REPORTED [employer] Phone: Eosinophils/100 WBC (Bld) 1 % 1 - 4 % [employer] Phone: Hematocrit (Bld) [Volume fraction] 37.2 % 36.3 - 47.1 % [employer] Phone: Hemoglobin.gastrointesti nal spec 1 Ql (Stl) 11.3 g/dL Low 11.9 - 15.1 g/dL [employer] Phone: Immature granulocytes/100 WBC (Bld) 0 % 0 [employer] Phone: Interpretation and review of laboratory results Abnormal [employer] Phone: Lymphocytes/100 WBC (Bld) 29 % 24 - 43 % [employer] Phone: MCH (RBC) [Entitic mass] 27.4 pg 25. 2 - 33.5 pg [employer] Phone: MCHC (RBC) [Mass/Vol] 30.4 g/dL 28.4 - 34.8 g/dL [employer] Phone: MCV (RBC) [Entitic vol] 90.1 fL 82.6 - 102.9 fL [employer] Phone: Monocytes/100 WBC (Bld) 7 % 3 - 12 % [facility]: NRBC Automated 0.0 0.0 per 100 WBC [employer] Phone: Platelet distribution width (Bld) [Ratio] 14.5 % High 11.8 - 14.4 % [employer] Phone: Platelet Estimate NOT REPORTED [employer] Phone: Platelet mean volume (Bld) [Entitic vol] 10.4 fL 8.1 - 13.5 fL [employer] Phone: Platelets (Bld) [#/Vol] 119 10*3/uL Low [employer] Phone: RBC (Bld) [#/Vol] 4.13 10*6/uL 3.95 - 5.1 1 m/uL [employer] Phone: RBC (Bld) [#/Vol] NOT REPORTED [employer] Phone: Segmented neutrophils/100 WBC (Bld) 63 % 36 - 65 % [employer] Work Phone: Segs [employer] 3[employer]10 [email or web address] Work Phone: WBC (Bld) [#/Vol] 4.9 10*3/uL [employer] Work Phone: WBC (Bld) [#/Vol] NOT REPORTED [employer] Phone: Hepatic Function PanelOrdere d By: Angella Iyer on 12-03-2020 Albumin [Mass/Vol] 3.6 g/dL 3.5 - 5.2 g/dL [employer] Phone: Albumin/Globulin [Mass ratio] 0.9 {ratio} Low [employer] Phone: ALP (Bld) [Catalytic activity/Vol] 119 U/L High 35 - 104 U/L [employer] Phone: ALT [Catalytic activity/Vol] 28 U/L 5 - 33 U/L [employer] Phone: AST [Catalytic activity/Vol] 36 U/L High <32 [employer] Phone: Bilirubin [Mass/Vol] 0.59 mg/dL 0.3 - 1 .2 mg/dL [employer] Phone: Bilirubin, Indirect 0.38 mg/dL 0.00 - 1 .00 mg/dL [employer] Phone: Bilirubin.indirect [Mass/Vol] 0.21 mg/dL <0.31 [employer] Phone: Free PSA/Total PSA [Mass fraction] 7.5 g/dL 6.4 - 8.3 g/dL [employer] Phone: Globulin NOT REPORTED 1.5 - 3.8 g/dL [employer] Phone: Interpretation and review of laboratory results Abnormal [employer] Phone: Iron And TIBCOrdered By: Francia Ruelas on 12-03-2020 Iron [Mass/Vol] 84 ug/dL 37 - 145 ug/dL [employer] Work Phone: Iron Saturation 29 % 20 - 55 % [employer] [facility] Work Phone: TIBC 291 ug/dL 250 - 450 ug/dL [facility]: UIBC 207 ug/dL 112 - 347 ug/dL [employer] Phone: Laboratory - Chemistry and C hemistry - challengeOrdered By: Hallie Lino on 12-03-2020 GFR/1.73 sq M.predicted MDRD (S/P/Bld) [Vol rate/Area] [employer] Phone: Comment on above: Average GFR for 60-6 9 years old: 85 mL/min/1.73sq m Chronic Kidney Disease: <60 mL/min/1.73sq m Kidney failure: <15 mL/min/1.73sq m eGFR calculated using average adult body mass. Additional eGFR calculator available at: http://www.[employer]/multiple_crcl_2012.htm Stage 1: Some kidney damage normal GFR Stage 2: Mild kidney damage GFR 60-89 Stage 3: Moderate kidney damage GFR 30-59 Stage 4: Severe kidney damage GFR 15-29 Stage 5: Severe kidney damage GFR <15 ESRD - chronic treatment by dialysis or transplant Lipid PanelOrdered By: Hallie Huynh on 12-03-2020 Cholesterol [Mass/Vol] 100 mg/dL <200 [employer] Phone: Comment on above: Cholesterol Guidelines: <200 Desirable 200-240 Borderline >240 Undesirable Cholesterol in HDL [Mass/Vol] 44 mg/dL >40 [facility]: Comment on above: HDL Guidelines: <40 Undesirable 40-59 Borderline >59 Desirable Cholesterol in LDL [Mass/Vol] 24 mg/dL 0 - 130 mg/dL [facility] Phone: Comment on above: LDL Guidelines: <100 Desirable 100-129 Near to/above Desirable 130-159 Borderline >159 Undesirable Direct (measured) LDL and calculated LDL are not interchangeable tests. Cholesterol in VLDL [Mass/Vol] NOT REPORTED High 1 - 30 mg/dL [employer] Phone: Cholesterol.total/Choles terol in HDL [Mass ratio] 2.3 {ratio} <5 [employer] Phone: Interpretation and review of laboratory results Abnormal [employer] Phone: Triglyceride [Mass/Vol] 160 mg/dL High <150 [facility]: Comment on above: Triglyceride Guidelines: <150 Desirable 150-199 Borderline 200-499 High >499 Very high Based on AHA Guidelines for fasting triglyceride, May 2012. Microalbumin, UrOrdered By: Hallie Huynh on 12-03-2020 Albumin/Creatinine DL <= 20 mg/L (24H U) [Mass ratio] 34 mg/L High <21 [facility] Phone: Albumin/Creatinine DL <= 20 mg/L (U) [Ratio] 16 <25 mcg/mg creat [employer] Phone: Creatinine [Mass/Vol] 217.6 mg/dL High 28.0 - 217.0 mg/dL [employer] Phone: Interpretation and review of laboratory results Abnormal [employer] Phone: Valproic acid level, totalOr dered By: Angella Iyer on 12-03-2020 Interpretation and review of laboratory results Abnormal [employer] Phone: Valproic Acid Lvl 49 ug/mL Low 50 - 125 ug/mL [facility]: Valproic Date last dose NOT REPORTED [facility] Phone: Valproic Dose amount NOT REPORTED [facility]: Valproic Time last dose NOT REPORTED [facility] Phone: US RENAL LIMITEDon 1 1. Diffuse fatty infiltration of the liver and/or diffuse hepatocellular disease. 2. Unremarkable renal ultrasound. No hydronephrosis. [facility] [place], [place] EXAMINATION: ULTRASOUND OF THE KIDNEYS 09/19/2020 9:27 am COMPARISON: CT lung screening from 02/01/2020 a right upper quadrant abdominal ultrasound from 02/01/2020 HISTORY: ORDERING SYSTEM PROVIDED HISTORY: CKD (chronic kidney disease) stage 3, GFR 30-59 ml/min TECHNOLOGIST PROVIDED HISTORY: CKD 65-year-old female with chronic kidney disease, stage III FINDINGS: Right kidney measures 11.3 x 4.4 x 5.1 cm. Right renal cortical thickness measures 6 mm. Left kidney measures 10.2 x 5.2 x 5.1 cm. Left renal cortical thickness measures 1.1 cm. No hydronephrosis or perinephric fluid. No echogenic foci with posterior acoustic shadowing to suggest renal calculi. Gross preservation of the bilateral corticomedullary differentiation. Color flow projects over the bilateral renal parenchyma. Increased echogenicity throughout the hepatic parenchyma which can be seen with fatty infiltration of the liver and/or diffuse hepatocellular disease. [place], [place] Isidro, Mhpn Incoming Radiant Results From [employer] - 09/19/2020 10:06 AM EST EXAMINATION: ULTRASOUND OF THE KIDNEYS 09/19/2020 9:27 am COMPARISON: CT lung screening from 02/01/2020 a right upper quadrant abdominal ultrasound from 02/01/2020 HISTORY: ORDERING SYSTEM PROVIDED HISTORY: CKD (chronic kidney disease) stage 3, GFR 30-59 ml/min TECHNOLOGIST PROVIDED HISTORY: CKD 65-year-old female with chronic kidney disease, stage III FINDINGS: Right kidney measures 11.3 x 4.4 x 5.1 cm. Right renal cortical thickness measures 6 mm. Left kidney measures 10.2 x 5.2 x 5.1 cm. Left renal cortical thickness measures 1.1 cm. No hydronephrosis or perinephric fluid. No echogenic foci with posterior acoustic shadowing to suggest renal calculi. Gross preservation of the bilateral corticomedullary differentiation. Color flow projects over the bilateral renal parenchyma. Increased echogenicity throughout the hepatic parenchyma which can be seen with fatty infiltration of the liver and/or diffuse hepatocellular disease. IMPRESSION: 1. Diffuse fatty infiltration of the liver and/or diffuse hepatocellular disease. 2. Unremarkable renal ultrasound. No hydronephrosis. [place], [place] Ferritinon 07-10-2020 Ferritin [Mass/Vol] 151 ug/L High 13 - 150 ug/L [place] Interpretation and review of laboratory results Abnormal [place] Iron and TIBCon 07-10-2020 Iron [Mass/Vol] 61 ug/dL 37 - 145 ug/dL [place] Iron Saturation 23 % 20 - 55 % [facility] [place] TIBC 264 ug/dL 250 - 450 ug/dL [place] UIBC 203 ug/dL 112 - 347 ug/dL [place] CBC Auto Differentialon 06-18 Basophils (Bld) [#/Vol] 10*3/uL M [place] Basophils/100 WBC (Bld) 1 % 0 - 2 % [place], [place] Differential Type NOT REPORTED [place] Eosinophils (Bld) [#/Vol] 0.06 10*3/uL [place] Eosinophils/100 WBC (Bld) 2 % 1 - 4 % [place] Erythrocyte distribution width (RBC) [Ratio] 14.7 % High 11.8 - 14.4 % [place] Hematocrit (Bld) [Volume fraction] 36.6 % 36.3 - 47.1 % [place] Hemoglobin (Bld) [Mass/Vol] 11.3 g/dL Low 11.9 - 15.1 g/dL [place] Immature granulocytes (Bld) [#/Vol] 10*3/uL [place] Immature granulocytes (Bld) [#/Vol] 0 % 0 [place] Interpretation and review of laboratory results Abnormal [place] Lymphocytes (Bld) [#/Vol] 0.96 10*3/uL Low [place] Lymphocytes/100 WBC (Bld) 27 % 24 - 43 % [place] MCH (RBC) [Entitic mass] 29.2 pg 25. 2 - 33.5 pg [place] MCHC (RBC) [Mass/Vol] 30.9 g/dL 28.4 - 34.8 g/dL [place] MCV (RBC) [Entitic vol] 94.6 fL 82.6 - 102.9 fL [place] Monocytes (Bld) [#/Vol] 0.24 10*3/uL [place] Monocytes/100 WBC (Bld) 7 % 3 - 12 % [place] Platelet mean volume (Bld) [Entitic vol] 10.1 fL 8.1 - 13.5 fL [place] Platelets (Bld) [#/Vol] NOT REPORTED [place] Platelets (Bld) [#/Vol] 104 10*3/uL Low [place] RBC (Bld) [#/Vol] 3.87 10*6/uL Low 3.95 - 5.1 1 m/uL [place] RBC morphology finding Nom (Bld) NOT REPORTED [place] Segmented neutrophils/100 WBC (Bld) 63 % 36 - 65 % [place] Segs Absolute 2.31 [place] WBC (Bld) [#/Vol] 3.6 10*3/uL [place] WBC (Bld) [#/Vol] 0.0 10*3/uL 0.0 per 10 0 WBC [place] WBC Morphology NOT REPORTED [place] Urinalysis with Microscopico n 06-06-2020 Amorphous, UA NOT REPORTED None [place], [place] Bacteria, UA 4+ Abnormal None [place], [place] Bilirubin Urine Negative NEGATIVE [place] Casts UA NOT REPORTED /LPF [place] Color, UA YELLOW YELLOW [place] Crystals, UA NOT REPORTED None /HPF [place] Epithelial Cells UA 0 TO 2 [place] Glucose, Ur Negative NEGATIVE [place] Interpretation and review of laboratory results Abnormal [place] Ketones Ql (U) Negative NEGATIVE [place] Leukocyte esterase Test strip Ql (U) LARGE Abnormal NEGATIVE [place] Mucus, UA NOT REPORTED None [place] Nitrite, Urine Positive Abnormal NEGATIVE [place] Other Observations UA NOT REPORTED NOT REQ. M [place] pH, UA 6.5 [place] Protein (U) [Mass/Vol] 1+ Abnormal NEGATIVE [place] RBC (U) [#/Vol] 5 TO 10 [place], [place] Renal Epithelial, UA NOT REPORTED 0 /HPF [place] Specific [place], UA 1.015 [place] Trichomonas, UA NOT REPORTED None [facility] [place] Turbidity UA CLOUDY Abnormal CLEAR [place] Urinalysis Comments NOT REPORTED [place] Urine Hgb 1+ Abnormal NEGATIVE [place] Urobilinogen, Urine Normal Normal [place] WBC, UA GREATER THAN 100 [place] Yeast, UA NOT REPORTED None [place] - [place] CBCon 05-02-2020 Erythrocyte distribution width (RBC) [Ratio] 14.7 % High 11.8 - 14.4 % [place] Hematocrit (Bld) [Volume fraction] 30.9 % Low 36.3 - 47.1 % [place] Hemoglobin (Bld) [Mass/Vol] 9.5 g/dL Low 11.9 - 15.1 g/dL [place] Interpretation and review of laboratory results Abnormal [place] MCH (RBC) [Entitic mass] 29.7 pg 25. 2 - 33.5 pg [place] MCHC (RBC) [Mass/Vol] 30.7 g/dL 28.4 - 34.8 g/dL [place] MCV (RBC) [Entitic vol] 96.6 fL 82.6 - 102.9 fL [place] Platelet mean volume (Bld) [Entitic vol] NOT REPORTED 8.1 - 13.5 fL [place] Platelets (Bld) [#/Vol] See Reflexed IPF Result [place] RBC (Bld) [#/Vol] 3.20 10*6/uL Low 3.95 - 5.1 1 m/uL [place] WBC (Bld) [#/Vol] 3.8 10*3/uL [place] WBC (Bld) [#/Vol] 0.0 10*3/uL 0.0 per 10 0 WBC [place] Comprehensive Metabolic Pane roger 05-02-2020 Albumin [Mass/Vol] 3.2 g/dL Low 3.5 - 5.2 g/dL [place] Albumin/Globulin [Mass ratio] 0.9 {ratio} Low [place] ALP [Catalytic activity/Vol] 109 U/L High 35 - 104 U/L [place] ALT [Catalytic activity/Vol] 55 U/L High 5 - 33 U/L [place] Anion gap [Moles/Vol] 10 mmol/L 9 - 17 mmol/L [place] AST [Catalytic activity/Vol] 75 U/L High <32 [place] Bilirubin Ql (U) 0.57 mg/dL 0.3 - 1.2 mg/dL [place] Bun/Cre Ratio 15 [place] Calcium [Mass/Vol] 8.4 mg/dL Low 8.6 - 10. 4 mg/dL [place] Chloride [Moles/Vol] 101 mmol/L 98 - 10 7 mmol/L [place] CO2 [Moles/Vol] 28 mmol/L 20 - 31 mmol/L [place] Creatinine [Mass/Vol] 0.91 mg/dL High 0.5 - 0.9 mg/dL [place] GFR >60 >60 mL/min [place] GFR Non- >60 >60 mL/min [place] Glucose [Mass/Vol] 118 mg/dL High 70 - 99 mg/dL [place] Interpretation and review of laboratory results Abnormal [place] Potassium [Moles/Vol] 4.7 mmol/L 3.7 - 5.3 mmol/L [place] Protein [Mass/Vol] 6.6 g/dL 6.4 - 8.3 g/dL [place] Sodium [Moles/Vol] 139 mmol/L 135 - 144 mmol/L [place] Urea nitrogen [Mass/Vol] 14 mg/dL 8 - 23 mg/dL [place] Hemoglobin A1Con 05-02-2020 Glucose [Mass/Vol] 137 mg/dL [place] Comment on above: The ADA and AACC rec ommend providing the estimated average glucose result to permit better patient understanding of their HBA1c result. HbA1c (Bld) [Mass fraction] 6.4 % High 4 - 6 % [place] Interpretation and review of laboratory results Abnormal [place] Immature Platelet Fractionon 05-02-2020 Interpretation and review of laboratory results Abnormal [place] Platelet, Fluorescence 99 Low [place] Platelet, Immature Fraction 3.6 % 1.1 - 10.3 % [place] Lipid Panelon 05-02-2020 Cholesterol [Mass/Vol] 83 mg/dL <200 [place] Comment on above: Cholesterol Guidelines: <200 Desirable 200-240 Borderline >240 Undesirable Cholesterol in HDL [Mass/Vol] 36 mg/dL Low >40 [place] Comment on above: HDL Guidelines: <40 Undesirable 40-59 Borderline >59 Desirable Cholesterol in LDL [Mass/Vol] 35 mg/dL 0 - 130 mg/dL [place] Comment on above: LDL Guidelines: <100 Desirable 100-129 Near to/above Desirable 130-159 Borderline >159 Undesirable Direct (measured) LDL and calculated LDL are not interchangeable tests. Cholesterol in VLDL [Mass/Vol] NOT REPORTED 1 - 30 mg/dL [place] Cholesterol.total/Choles terol in HDL [Mass ratio] 2.3 {ratio} <5 [place] Interpretation and review of laboratory results Abnormal [place] Triglyceride [Mass/Vol] 59 mg/dL <150 [place] Comment on above: Triglyceride Guidelines: <150 Desirable 150-199 Borderline 200-499 High >499 Very high Based on AHA Guidelines for fasting triglyceride, May 2012. Metabolic Panelon 05-02-2020 GFR/1.73 sq M predicted among non-blacks MDRD (S/P/Bld) [Vol rate/Area] [place] Comment on above: Stage 1: Some kidney damage normal GFR Stage 2: Mild kidney damage GFR 60-89 Stage 3: Moderate kidney damage GFR 30-59 Stage 4: Severe kidney damage GFR 15-29 Stage 5: Severe kidney damage GFR <15 ESRD - chronic treatment by dialysis or transplant Average GFR for 60-6 9 years old: 85 mL/min/1.73sq m Chronic Kidney Disease: <60 mL/min/1.73sq m Kidney failure: <15 mL/min/1.73sq m eGFR calculated using average adult body mass. Additional eGFR calculator available at: http://www.[employer]/multiple_crcl_2012.htm TSH without Reflexon 020 TSH Qn 1.43 m[IU]/L [place] Basic Metabolic Panel w/ Ref myles to MGon 04-30-2020 Anion gap [Moles/Vol] 13 mmol/L 9 - 17 mmol/L [place] Bun/Cre Ratio 26 High [place] Calcium [Mass/Vol] 9.3 mg/dL 8.6 - 10. 4 mg/dL [place] Chloride [Moles/Vol] 96 mmol/L Low 98 - 10 7 mmol/L [place] CO2 [Moles/Vol] 24 mmol/L 20 - 31 mmol/L [place] Creatinine [Mass/Vol] 1.11 mg/dL High 0.5 - 0.9 mg/dL [place] GFR 60 mL/min Low >60 [place] GFR Non- 49 mL/min Low >60 [place] Glucose [Mass/Vol] 125 mg/dL High 70 - 99 mg/dL [place] Interpretation and review of laboratory results Abnormal [place] Potassium [Moles/Vol] 4.5 mmol/L 3.7 - 5.3 mmol/L [place] Sodium [Moles/Vol] 133 mmol/L Low 135 - 144 mmol/L [place] Urea nitrogen [Mass/Vol] 29 mg/dL High 8 - 23 mg/dL [place] CBC Auto Differentialon 04-17 Basophils (Bld) [#/Vol] 0.00 10*3/uL [place] Basophils/100 WBC (Bld) 0 % 0 - 2 % [place] Differential Type NOT REPORTED [place] Eosinophils (Bld) [#/Vol] 0.00 10*3/uL [place] Eosinophils/100 WBC (Bld) 0 % Low 1 - 4 % [place] Erythrocyte distribution width (RBC) [Ratio] 14.8 % High 11.8 - 14.4 % [place] Hematocrit (Bld) [Volume fraction] 33.4 % Low 36.3 - 47.1 % [place] Hemoglobin (Bld) [Mass/Vol] 10.6 g/dL Low 11.9 - 15.1 g/dL [place] Immature granulocytes (Bld) [#/Vol] 0.00 10*3/uL [place] Immature granulocytes (Bld) [#/Vol] 0 % 0 [place] Interpretation and review of laboratory results Abnormal [place] Lymphocytes (Bld) [#/Vol] 1.58 10*3/uL [place] Lymphocytes/100 WBC (Bld) 33 % 24 - 43 % [place] MCH (RBC) [Entitic mass] 30.2 pg 25. 2 - 33.5 pg [place] MCHC (RBC) [Mass/Vol] 31.7 g/dL 28.4 - 34.8 g/dL [place] MCV (RBC) [Entitic vol] 95.2 fL 82.6 - 102.9 fL [place] Monocytes (Bld) [#/Vol] 0.48 10*3/uL [place] Monocytes/100 WBC (Bld) 10 % 3 - 12 % [place] Morphology Lucio (Bld) [Interp] Platelet scan shows Decreased Platelets [place] Platelet mean volume (Bld) [Entitic vol] NOT REPORTED 8.1 - 13.5 fL [place] Platelets (Bld) [#/Vol] See Reflexed IPF Result [place] Platelets (Bld) [#/Vol] NOT REPORTED [place] RBC (Bld) [#/Vol] 3.51 10*6/uL Low 3.95 - 5.1 1 m/uL [place] RBC morphology finding Nom (Bld) NOT REPORTED [place] Segmented neutrophils/100 WBC (Bld) 57 % 36 - 65 % [place] Segs Absolute 2.74 [place] WBC (Bld) [#/Vol] 0.0 10*3/uL 0.0 per 10 0 WBC [place] WBC (Bld) [#/Vol] 4.8 10*3/uL [place] WBC Morphology NOT REPORTED [place] COVID-19, PCRon 04-30-2020 SARS-CoV-2, Rapid Not Detected Not Detected [place] Comment on above: Rapid NAAT: The specimen is NEGATIVE for SARS-CoV-2, the novel coronavirus associated with COVID-19. The ID NOW COVID-19 assay is designed to detect the virus that causes COVID-19 in patients with signs and symptoms of infection who are suspected of COVID-19. An individual without symptoms of COVID-19 and who is not shedding SARS-CoV-2 virus would expect to have a negative (not detected) result in this assay. Negative results should be treated as presumptive and, if inconsistent with clinical signs and symptoms or necessary for patient management, should be tested with an alternative molecular assay. Negative results do not preclude SARS-CoV-2 infection and should not be used as the sole basis for patient management decisions. Fact sheet for Healthcare Providers: https://www.fda.gov/media/821321/download Fact sheet for Patients: https://www.fda.gov/media/669376/download Methodology: Isothermal Nucleic Acid Amplification Source .NASOPHARYNGEAL SWAB [place] Glucose, Whole Bloodon 04-30 Glucose [Mass/Vol] 182 mg/dL High 74 - 100 mg/dL [place] Interpretation and review of laboratory results Abnormal [place] Immature Platelet Fractionon 04-30-2020 Interpretation and review of laboratory results Abnormal [place] Platelet, Fluorescence 89 Low [place] Platelet, Immature Fraction 3.9 % 1.1 - 10.3 % [place] Metabolic Panelon 04-30-2020 GFR/1.73 sq M predicted among non-blacks MDRD (S/P/Bld) [Vol rate/Area] [place] Comment on above: Average GFR for 60-6 9 years old: 85 mL/min/1.73sq m Chronic Kidney Disease: <60 mL/min/1.73sq m Kidney failure: <15 mL/min/1.73sq m eGFR calculated using average adult body mass. Additional eGFR calculator available at: http://www.[employer]/multiple_crcl_2012.htm Stage 1: Some kidney damage normal GFR Stage 2: Mild kidney damage GFR 60-89 Stage 3: Moderate kidney damage GFR 30-59 Stage 4: Severe kidney damage GFR 15-29 Stage 5: Severe kidney damage GFR <15 ESRD - chronic treatment by dialysis or transplant Otheron 04-30-2020 SARS-CoV-2 [place] Urinalysis, reflex to micros copicon 04-30-2020 Bilirubin Urine Negative NEGATIVE [place] Color, UA YELLOW YELLOW [place] Glucose, Ur Negative NEGATIVE [place] Interpretation and review of laboratory results Abnormal [place] Ketones Ql (U) Negative NEGATIVE [place] Leukocyte esterase Test strip Ql (U) Negative NEGATIVE [place] Nitrite, Urine Negative NEGATIVE [place] pH, UA 6.0 [place] Protein (U) [Mass/Vol] Negative NEGATIVE [place] Specific [place], UA <1.005 Low [place] Turbidity UA CLEAR CLEAR [place] Urinalysis Comments NOT REPORTED [place] Urine Hgb Negative NEGATIVE [place] Urobilinogen, Urine Normal Normal [place] CT CERVICAL SPINE WO CONTRAS Ton 04-28-2020 No acute abnormality of the cervical spine. [place] Isidro, [facility] Incoming Radiant Results From [facility] - 04/28/2020 11:51 AM EDT EXAMINATION: CT OF THE CERVICAL SPINE WITHOUT CONTRAST 04/28/2020 11:31 am TECHNIQUE: CT of the cervical spine was performed without the administration of intravenous contrast. Multiplanar reformatted images are provided for review. Dose modulation, iterative reconstruction, and/or weight based adjustment of the mA/kV was utilized to reduce the radiation dose to as low as reasonably achievable. COMPARISON: CT cervical spine November 23, 2019. HISTORY: ORDERING SYSTEM PROVIDED HISTORY: Fall with facial injury TECHNOLOGIST PROVIDED HISTORY: Fall with facial injury FINDINGS: BONES/ALIGNMENT: Anterior fusion hardware C5 through C7 without hardware complication. No acute bony process. Vertebral body heights appear well maintained. DEGENERATIVE CHANGES: Endplate degenerative changes C3-4 and C4-5. Mild diffuse facet joint degenerative changes. Uncovertebral joint degenerative change C3-4. SOFT TISSUES: There is no prevertebral soft tissue swelling. IMPRESSION: No acute abnormality of the cervical spine[facility] OF THE CERVICAL SPINE WITHOUT CONTRAST 04/28/2020 11:31 am TECHNIQUE: CT of the cervical spine was performed without the administration of intravenous contrast. Multiplanar reformatted images are provided for review. Dose modulation, iterative reconstruction, and/or weight based adjustment of the mA/kV was utilized to reduce the radiation dose to as low as reasonably achievable. COMPARISON: CT cervical spine November 23, 2019. HISTORY: ORDERING SYSTEM PROVIDED HISTORY: Fall with facial injury TECHNOLOGIST PROVIDED HISTORY: Fall with facial injury FINDINGS: BONES/ALIGNMENT: Anterior fusion hardware C5 through C7 without hardware complication. No acute bony process. Vertebral body heights appear well maintained. DEGENERATIVE CHANGES: Endplate degenerative changes C3-4 and C4-5. Mild diffuse facet joint degenerative changes. Uncovertebral joint degenerative change C3-4. SOFT TISSUES: There is no prevertebral soft tissue swelling. [employer], [facility] Otheron 04-28-2020 Isidro, pn Incoming Radiant Results From [facility] - 04/28/2020 11:38 AM EDT EXAMINATION: CT OF THE HEAD WITHOUT CONTRAST; CT OF THE FACE WITHOUT CONTRAST 04/28/2020 11:23 am; 04/28/2020 11:26 am TECHNIQUE: CT of the head was performed without the administration of intravenous contrast. Dose modulation, iterative reconstruction, and/or weight based adjustment of the mA/kV was utilized to reduce the radiation dose to as low as reasonably achievable.; CT of the face was performed without the administration of intravenous contrast. Multiplanar reformatted images are provided for review. Dose modulation, iterative reconstruction, and/or weight based adjustment of the mA/kV was utilized to reduce the radiation dose to as low as reasonably achievable. COMPARISON: 11/23/2019 HISTORY: ORDERING SYSTEM PROVIDED HISTORY: Fall with head injury TECHNOLOGIST PROVIDED HISTORY: Fall with head injury; ORDERING SYSTEM PROVIDED HISTORY: Fall with facial injury TECHNOLOGIST PROVIDED HISTORY: Fall with facial injury FINDINGS: CT HEAD: BRAIN/VENTRICLES: No acute intracranial hemorrhage or extra-axial fluid. Cortical atrophy and associated ventricular enlargement again demonstrated. No new findings identified in the brain. ORBITS: The visualized portion of the orbits demonstrate no acute abnormality. SINUSES: The visualized paranasal sinuses and mastoid air cells demonstrate no acute abnormality. SOFT TISSUES/SKULL: Left frontal scalp hematoma. No underlying fracture identified. Minimally displaced left nasal bridge fracture. CT FACIAL BONES: FACIAL BONES: Minimally displaced left nasal bridge fracture. No other facial fracture identified. ORBITS: The globes appear intact. The extraocular muscles, optic nerve sheath complexes and lacrimal glands appear unremarkable. No retrobulbar hematoma or mass is seen. The orbital villa and rims are intact. SINUSES/MASTOIDS: The paranasal sinuses and mastoid air cells are well aerated. No acute fracture is seen. SOFT TISSUES: Left frontal scalp hematoma. No subcutaneous gas or foreign body. IMPRESSION: 1. Chronic findings in the brain without acute CT abnormality identified. 2. Minimally displaced left nasal bridge fracture. 3. Left frontal scalp hematoma. [place] EXAMINATION: CT OF THE HEAD WITHOUT CONTRAST; CT OF THE FACE WITHOUT CONTRAST 04/28/2020 11:23 am; 04/28/2020 11:26 am TECHNIQUE: CT of the head was performed without the administration of intravenous contrast. Dose modulation, iterative reconstruction, and/or weight based adjustment of the mA/kV was utilized to reduce the radiation dose to as low as reasonably achievable.; CT of the face was performed without the administration of intravenous contrast. Multiplanar reformatted images are provided for review. Dose modulation, iterative reconstruction, and/or weight based adjustment of the mA/kV was utilized to reduce the radiation dose to as low as reasonably achievable. COMPARISON: 11/23/2019 HISTORY: ORDERING SYSTEM PROVIDED HISTORY: Fall with head injury TECHNOLOGIST PROVIDED HISTORY: Fall with head injury; ORDERING SYSTEM PROVIDED HISTORY: Fall with facial injury TECHNOLOGIST PROVIDED HISTORY: Fall with facial injury FINDINGS: CT HEAD: BRAIN/VENTRICLES: No acute intracranial hemorrhage or extra-axial fluid. Cortical atrophy and associated ventricular enlargement again demonstrated. No new findings identified in the brain. ORBITS: The visualized portion of the orbits demonstrate no acute abnormality. SINUSES: The visualized paranasal sinuses and mastoid air cells demonstrate no acute abnormality. SOFT TISSUES/SKULL: Left frontal scalp hematoma. No underlying fracture identified. Minimally displaced left nasal bridge fracture. CT FACIAL BONES: FACIAL BONES: Minimally displaced left nasal bridge fracture. No other facial fracture identified. ORBITS: The globes appear intact. The extraocular muscles, optic nerve sheath complexes and lacrimal glands appear unremarkable. No retrobulbar hematoma or mass is seen. The orbital villa and rims are intact. SINUSES/MASTOIDS: The paranasal sinuses and mastoid air cells are well aerated. No acute fracture is seen. SOFT TISSUES: Left frontal scalp hematoma. No subcutaneous gas or foreign body. [employer] 1. Chronic findings in the brain without acute CT abnormality identified. 2. Minimally displaced left nasal bridge fracture. 3. Left frontal scalp hematoma. [employer] XR SHOULDER RIGHT (MIN 2 VIE WS)on 04-28-2020 Isidro, [facility] Incoming Radiant Results From [employer] - 04/28/2020 11:55 AM EDT EXAMINATION: THREE XRAY VIEWS OF THE RIGHT SHOULDER 04/28/2020 11:40 am COMPARISON: None. HISTORY: ORDERING SYSTEM PROVIDED HISTORY: Fall with injury to the right shoulder TECHNOLOGIST PROVIDED HISTORY: Fall with injury to the right shoulder FINDINGS: Bones are grossly demineralized limiting evaluation for fracture. The patient appears to be status post Nayan procedure. Mild spurring is seen involving the acromion. There appears to be a impacted fracture involving the head/neck of the humerus. No dislocation is seen. Visualized right lung field is clear. IMPRESSION: Impacted fracture involving the right humeral head/neck. [employer] EXAMINATION: THREE XRAY VIEWS OF THE RIGHT SHOULDER 04/28/2020 11:40 am COMPARISON: None. HISTORY: ORDERING SYSTEM PROVIDED HISTORY: Fall with injury to the right shoulder TECHNOLOGIST PROVIDED HISTORY: Fall with injury to the right shoulder FINDINGS: Bones are grossly demineralized limiting evaluation for fracture. The patient appears to be status post Nayan procedure. Mild spurring is seen involving the acromion. There appears to be a impacted fracture involving the head/neck of the humerus. No dislocation is seen. Visualized right lung field is clear. [place] Impacted fracture involving the right humeral head/neck. [place] CT Lung Screen (Annual)on 1. No significant lung nodules. No mediastinal adenopathy. 2. Emphysematous changes with reticular peripheral changes right upper lobe likely inflammatory. 3. Atherosclerotic disease. LUNG RADS: Category 2. Benign findings. Less than 1% probability of malignancy. Advise annual low-dose CT screening exam of the chest. RECOMMENDATIONS: If you would like to register your patient with the [facility] Lung Nodule/Lung Cancer Screening Program, please contact the Nurse Navigator at [phone] . [place] EXAMINATION: LOW DOSE SCREENING CT OF THE CHEST WITHOUT CONTRAST TECHNIQUE: Low dose lung cancer screening CT of the chest was performed without the administration of intravenous contrast. Multiplanar reformatted images are provided for review. Dose modulation, iterative reconstruction, and/or weight based adjustment of the mA/kV was utilized to reduce the radiation dose to as low as reasonably achievable. COMPARISON: None. HISTORY: Screening. Patient Age: 64 y/o Number of pack years of smokin If no longer smoking, number of years since cessation: 10 Other symptoms: None. FINDINGS: Mediastinum: No mediastinal adenopathy, acute aortic abnormality or cardiomegaly is noted. Calcification of the aortic arch and coronary arteries is noted. No pericardial effusion or epicardial adenopathy is seen. Lungs/Pleura: Mild central lobular emphysematous changes are noted with peripheral reticular and mild tree-in-bud changes right upper lobe anterior laterally, likely related to inflammatory change. No significant nodules, areas of consolidation or effusions are noted. Basilar atelectasis is present. Tracheobronchial tree is patent. Upper Abdomen: No acute abnormality in the included upper abdomen. Soft Tissues/Bones: Multilevel degenerative changes in the spine with postsurgical changes lower cervical region. No worrisome acute osseous or soft tissue abnormality. [place] Isidro, [facility] Incoming Radiant Results From [employer] - 02/01/2020 8:52 AM EDT EXAMINATION: LOW DOSE SCREENING CT OF THE CHEST WITHOUT CONTRAST TECHNIQUE: Low dose lung cancer screening CT of the chest was performed without the administration of intravenous contrast. Multiplanar reformatted images are provided for review. Dose modulation, iterative reconstruction, and/or weight based adjustment of the mA/kV was utilized to reduce the radiation dose to as low as reasonably achievable. COMPARISON: None. HISTORY: Screening. Patient Age: 64 y/o Number of pack years of smokin If no longer smoking, number of years since cessation: 10 Other symptoms: None. FINDINGS: Mediastinum: No mediastinal adenopathy, acute aortic abnormality or cardiomegaly is noted. Calcification of the aortic arch and coronary arteries is noted. No pericardial effusion or epicardial adenopathy is seen. Lungs/Pleura: Mild central lobular emphysematous changes are noted with peripheral reticular and mild tree-in-bud changes right upper lobe anterior laterally, likely related to inflammatory change. No significant nodules, areas of consolidation or effusions are noted. Basilar atelectasis is present. Tracheobronchial tree is patent. Upper Abdomen: No acute abnormality in the included upper abdomen. Soft Tissues/Bones: Multilevel degenerative changes in the spine with postsurgical changes lower cervical region. No worrisome acute osseous or soft tissue abnormality. IMPRESSION: 1. No significant lung nodules. No mediastinal adenopathy. 2. Emphysematous changes with reticular peripheral changes right upper lobe likely inflammatory. 3. Atherosclerotic disease. LUNG RADS: Category 2. Benign findings. Less than 1% probability of malignancy. Advise annual low-dose CT screening exam of the chest. RECOMMENDATIONS: If you would like to register your patient with the [facility] Lung Nodule/Lung Cancer Screening Program, please contact the Nurse Navigator at [phone] . [place] DEXA BONE DENSITY AXIAL SKEL ETONon 02-01-2020 Normal bone mineral density by WHO criteria. [place] EXAMINATION: BONE DENSITOMETRY 02/01/2020 10:03 am TECHNIQUE: A bone density dual x-ray absorptiometry (DEXA) scan was performed of the lumbar spine and left hip on a [employer] system. COMPARISON: None. HISTORY: ORDERING SYSTEM PROVIDED HISTORY: Postmenopausal TECHNOLOGIST PROVIDED HISTORY: Post menopausal FINDINGS: LUMBAR SPINE: The bone mineral density in the lumbar spine including the L1-L4 levels is measured at 1.332 g/cm2, which corresponds to a T-score of 1.3 and a Z-score of 2.1. This is within the normal range by WHO criteria. LEFT HIP: The bone mineral density in the total hip is measured at 0.914 g/cm2 corresponding to a T-score of -0.7 and a Z-score of -0.1. This is within the normal range by WHO criteria. The bone mineral density of the femoral neck is measured at 0.901 g/cm2 corresponding to a T-score of -1.0 and a Z-score of 0.1. This is within the upper limits of normal range by WHO criteria. WHO fracture risk assessment tool (FRAX) projects a 10-year fracture risk of a major osteoporotic fracture at 7.4 % and hip fracture at 0.5 %. The patient's 10-year fracture risk is increased if untreated. Fracture probability may be lower if the patient has received treatment. FRAX may underestimate fracture probability in patients who have impaired functional status from rheumatoid arthritis, history of frequent falls, history of multiple fractures, severe vertebral fractures, parental history of non-hip fragility fractures, glucocorticoid doses in excess of 7.5 mg/day or frequent use, high dose inhaled glucocorticoids, and if the T-score of the lumbar spine is > 1 SD lower than the femoral neck. Clinical judgment and/or patient preferences may indicate treatment for people with 10 year fracture probabilities above or below these levels. [facility] [place], [place] Isidro, Mhpn Incoming Radiant Results From [facility] - 02/01/2020 12:59 PM EDT EXAMINATION: BONE DENSITOMETRY 02/01/2020 10:03 am TECHNIQUE: A bone density dual x-ray absorptiometry (DEXA) scan was performed of the lumbar spine and left hip on a [employer] system. COMPARISON: None. HISTORY: ORDERING SYSTEM PROVIDED HISTORY: Postmenopausal TECHNOLOGIST PROVIDED HISTORY: Post menopausal FINDINGS: LUMBAR SPINE: The bone mineral density in the lumbar spine including the L1-L4 levels is measured at 1.332 g/cm2, which corresponds to a T-score of 1.3 and a Z-score of 2.1. This is within the normal range by WHO criteria. LEFT HIP: The bone mineral density in the total hip is measured at 0.914 g/cm2 corresponding to a T-score of -0.7 and a Z-score of -0.1. This is within the normal range by WHO criteria. The bone mineral density of the femoral neck is measured at 0.901 g/cm2 corresponding to a T-score of -1.0 and a Z-score of 0.1. This is within the upper limits of normal range by WHO criteria. WHO fracture risk assessment tool (FRAX) projects a 10-year fracture risk of a major osteoporotic fracture at 7.4 % and hip fracture at 0.5 %. The patient's 10-year fracture risk is increased if untreated. Fracture probability may be lower if the patient has received treatment. FRAX may underestimate fracture probability in patients who have impaired functional status from rheumatoid arthritis, history of frequent falls, history of multiple fractures, severe vertebral fractures, parental history of non-hip fragility fractures, glucocorticoid doses in excess of 7.5 mg/day or frequent use, high dose inhaled glucocorticoids, and if the T-score of the lumbar spine is > 1 SD lower than the femoral neck. Clinical judgment and/or patient preferences may indicate treatment for people with 10 year fracture probabilities above or below these levels. IMPRESSION: Normal bone mineral density by WHO criteria. [facility] [place] GALLBLADDER RUQon 020 Cholesterol in LDL [Mass/Vol] *Slight hepatic heterogeneity with mildly nodular contour which is nonspecific but can be seen in setting of cirrhosis. *Otherwise negative right upper quadrant ultrasound. [place] EXAMINATION: RIGHT UPPER QUADRANT ULTRASOUND 02/01/2020 9:02 am COMPARISON: None. HISTORY: ORDERING SYSTEM PROVIDED HISTORY: NAFLD (nonalcoholic fatty liver disease) TECHNOLOGIST PROVIDED HISTORY: RUQ pain FINDINGS: LIVER: The liver appears slightly heterogeneous with mildly nodular contour. Evidence of intrahepatic biliary ductal dilatation. Liver length is 19.1 cm. BILIARY SYSTEM: Gallbladder is unremarkable without evidence of pericholecystic fluid, wall thickening or stones. Negative sonographic Spear's sign. Common bile duct is within normal limits measuring 4 mm. RIGHT KIDNEY: The right kidney is grossly unremarkable without evidence of hydronephrosis. Right renal length is 10.2 cm. PANCREAS: Visualized portions of the pancreas are unremarkable. OTHER: No evidence of right upper quadrant ascites. [facility] [place] Isidro, Mhpn Incoming Radiant Results From [facility] - 02/01/2020 9:42 AM EDT EXAMINATION: RIGHT UPPER QUADRANT ULTRASOUND 02/01/2020 9:02 am COMPARISON: None. HISTORY: ORDERING SYSTEM PROVIDED HISTORY: NAFLD (nonalcoholic fatty liver disease) TECHNOLOGIST PROVIDED HISTORY: RUQ pain FINDINGS: LIVER: The liver appears slightly heterogeneous with mildly nodular contour. Evidence of intrahepatic biliary ductal dilatation. Liver length is 19.1 cm. BILIARY SYSTEM: Gallbladder is unremarkable without evidence of pericholecystic fluid, wall thickening or stones. Negative sonographic Spear's sign. Common bile duct is within normal limits measuring 4 mm. RIGHT KIDNEY: The right kidney is grossly unremarkable without evidence of hydronephrosis. Right renal length is 10.2 cm. PANCREAS: Visualized portions of the pancreas are unremarkable. OTHER: No evidence of right upper quadrant ascites. IMPRESSION: *Slight hepatic heterogeneity with mildly nodular contour which is nonspecific but can be seen in setting of cirrhosis. *Otherwise negative right upper quadrant ultrasound. [place] COVID-19on 01-31-2020 SARS-CoV-2 [place] SARS-CoV-2, PCR Not Detected Not Detected [place] Comment on above: (NOTE) The [employer] RealTime SARS-CoV-2 assay is a real-time (rt) reverse transcriptase (RT) polymerase chain reaction (PCR) test intended for the [employer] system. The SARS-CoV-2 primer and probe sets are designed to detect RNA from SARS-CoV-2 in nasopharyngeal (CHIEF TALENT OFFICER) and oropharyngeal (OP) swabs from patients with signs and symptoms of infection who are suspected of COVID-19. Results are for the identification of SARS-CoV-2 RNA. The SARS-CoV-2 RNA is generally detectable in a nasopharyngeal and oropharyngeal swabs during the acute phase of infection. The [employer] RealTime SARS-CoV-2 assay is intended for use by qualified and trained clinical laboratory personnel specifically instructed and trained in the techniques of real-time PCR and in vitro diagnostic procedures. The [employer] RealTime SARS-CoV-2 assay is only for use under the Food and Drug Administration Emergency Use Authorization. Testing is limited to laboratories certified under the Clinical Laboratory Improvement Amendments of 1988 (CLIA), 42 U.S.C. 263a, to perform high complexity tests. Not Detected: Not detected does not preclude SARS-CoV-2 infection and should not be used as the sole basis for patient management decisions. Not detected results must be combined with clinical observations, patient history, and epidemiological information. The above [address] [facility] [address] [address] SARS-CoV-2, [place], [place] Source .NASOPHARYNGEAL SWAB [place] CBC Auto Differentialon 01-15 Basophils (Bld) [#/Vol] 0.03 10*3/uL [place] Basophils/100 WBC (Bld) 1 % 0 - 2 % M [place], [place] Differential Type NOT REPORTED [place] Eosinophils (Bld) [#/Vol] 0.07 10*3/uL [place] Eosinophils/100 WBC (Bld) 1 % 1 - 4 % [place] Erythrocyte distribution width (RBC) [Ratio] 13.4 % 11.8 - 14.4 % [place] Hematocrit (Bld) [Volume fraction] 40.1 % 36.3 - 47.1 % [place] Hemoglobin (Bld) [Mass/Vol] 12.4 g/dL 11.9 - 15.1 g/dL [place] Immature granulocytes (Bld) [#/Vol] 10*3/uL [place] Immature granulocytes (Bld) [#/Vol] 0 % 0 [place] Interpretation and review of laboratory results Abnormal [place] Lymphocytes (Bld) [#/Vol] 1.82 10*3/uL [place] Lymphocytes/100 WBC (Bld) 35 % 24 - 43 % [place] MCH (RBC) [Entitic mass] 30.2 pg 25. 2 - 33.5 pg [place] MCHC (RBC) [Mass/Vol] 30.9 g/dL 28.4 - 34.8 g/dL [place] MCV (RBC) [Entitic vol] 97.6 fL 82.6 - 102.9 fL [place] Monocytes (Bld) [#/Vol] 0.38 10*3/uL [place] Monocytes/100 WBC (Bld) 7 % 3 - 12 % M [place] Platelet mean volume (Bld) [Entitic vol] 10.2 fL 8.1 - 13.5 fL [place] Platelets (Bld) [#/Vol] NOT REPORTED [place] Platelets (Bld) [#/Vol] 123 10*3/uL [place] RBC (Bld) [#/Vol] 4.11 10*6/uL 3.95 - 5.1 1 m/uL [place] RBC morphology finding Nom (Bld) NOT REPORTED [place] Segmented neutrophils/100 WBC (Bld) 56 % 36 - 65 % [place] Segs Absolute 2.90 [place], [place] WBC (Bld) [#/Vol] 5.2 10*3/uL [place] WBC (Bld) [#/Vol] 0.0 10*3/uL 0.0 per 10 0 WBC [place] WBC Morphology NOT REPORTED [place], [place] Comprehensive Metabolic Pane roger 01-27-2020 Albumin [Mass/Vol] 4 g/dL 3.5 - 5.2 g/dL [place] Albumin/Globulin [Mass ratio] 1.2 {ratio} [place] ALP [Catalytic activity/Vol] 135 U/L High 35 - 104 U/L [place] ALT [Catalytic activity/Vol] 35 U/L High 5 - 33 U/L [place] Anion gap [Moles/Vol] 13 mmol/L 9 - 17 mmol/L [place] AST [Catalytic activity/Vol] 40 U/L High <32 [place] Bilirubin Ql (U) 0.60 mg/dL 0.3 - 1.2 mg/dL [place] Bun/Cre Ratio 25 High [place], [place] Calcium [Mass/Vol] 9.7 mg/dL 8.6 - 10. 4 mg/dL [place] Chloride [Moles/Vol] 99 mmol/L 98 - 10 7 mmol/L [place] CO2 [Moles/Vol] 27 mmol/L 20 - 31 mmol/L [place] Creatinine [Mass/Vol] 1 mg/dL High 0.5 - 0.9 mg/dL [place] GFR >60 >60 mL/min [place] GFR Non- 56 mL/min Low >60 [place] Glucose [Mass/Vol] 138 mg/dL High 70 - 99 mg/dL [place] Potassium [Moles/Vol] 4.8 mmol/L 3.7 - 5.3 mmol/L [place] Protein [Mass/Vol] 7.4 g/dL 6.4 - 8.3 g/dL [place] Sodium [Moles/Vol] 139 mmol/L 135 - 144 mmol/L [place] Urea nitrogen [Mass/Vol] 25 mg/dL High 8 - 23 mg/dL [place] Hemoglobin A1Con 01-27-2020 Glucose [Mass/Vol] 117 mg/dL [place] Comment on above: The ADA and AACC rec ommend providing the estimated average glucose result to permit better patient understanding of their HBA1c result. HbA1c (Bld) [Mass fraction] 5.7 % 4.8 - 5.9 % [place] Metabolic Panelon 01-27-2020 GFR/1.73 sq M predicted among non-blacks MDRD (S/P/Bld) [Vol rate/Area] [place], [place] Comment on above: Stage 1: Some kidney damage normal GFR Stage 2: Mild kidney damage GFR 60-89 Stage 3: Moderate kidney damage GFR 30-59 Stage 4: Severe kidney damage GFR 15-29 Stage 5: Severe kidney damage GFR <15 ESRD - chronic treatment by dialysis or transplant Average GFR for 60-6 9 years old: 85 mL/min/1.73sq m Chronic Kidney Disease: <60 mL/min/1.73sq m Kidney failure: <15 mL/min/1.73sq m eGFR calculated using average adult body mass. Additional eGFR calculator available at: http://www.[employer]/multiple_crcl_2012.htm Otheron 01-27-2020 Interpretation and review of laboratory results Abnormal [place] Uric Acidon 01-27-2020 Urate [Mass/Vol] 9.9 mg/dL High 2.4 - 5.7 mg/dL [place] Immature Platelet Fractionon 11-24-2019 Interpretation and review of laboratory results Abnormal [place] Platelet, Fluorescence 100 [place], [place] Comment on above: ORDERED BY LAB Platelet, Immature Fraction 2.5 % 1.1 - 10.3 % [place] Comment on above: ORDERED BY LAB MRI CERVICAL SPINE WO CONTRA STon 11-24-2019 Isidro, Mhpn Incoming Radiant Results From [facility] - 11/24/2019 12:05 PM EDT EXAMINATION: MRI OF THE CERVICAL SPINE WITHOUT CONTRAST 11/24/2019 10:15 am TECHNIQUE: Multiplanar multisequence MRI of the cervical spine was performed without the administration of intravenous contrast. COMPARISON: CT on 11/23/2019 HISTORY: ORDERING SYSTEM PROVIDED HISTORY: C4 spinous process fracture with soft tissue swelling concerning for ligament injury TECHNOLOGIST PROVIDED HISTORY: C4 spinous process fracture with soft tissue swelling concerning for ligament injury Follow-up FINDINGS: BONES/ALIGNMENT: There is minimal retrolisthesis of C3 on C4. Alignment of the cervical spine is otherwise normal. Postsurgical changes are noted from an anterior C5-C7 fusion. There are areas of edema along the C4 spinous process fracture with associated areas of edema along the C3-C4 interspinous and supraspinatus ligament, extending into the paraspinal musculature, concerning for muscular injury/strain. Additionally, there is a fracture noted through the C3 inferior endplate anteriorly with associated anterior longitudinal ligamentous injury with associated areas of prevertebral edema. This prevertebral edema extends primarily from C1 to C4. There are no other areas of marrow edema to suggest an acute fracture. SPINAL CORD: The visualized posterior fossa structures are unremarkable. The cervical spinal cord demonstrates normal signal intensity without evidence of an expansile mass lesion. SOFT TISSUES: No other paraspinal masses are identified. C2-C3: There is no significant disc protrusion, spinal canal stenosis or neural foraminal narrowing. C3-C4: There is a disc bulge indenting the anterior thecal sac measuring approximately 1 mm. No central spinal canal stenosis. Asymmetric left-sided facet arthropathy. The neural foramina are patent. C4-C5: There is a 3 mm central/left paracentral disc protrusion indenting the anterior thecal sac. Ligamentum flavum thickening is noted. Moderate central spinal canal narrowing. Asymmetric left-sided uncovertebral spurring with moderate left and mild right foraminal narrowing. C5-C6: This is a fused level. No disc herniation, foraminal narrowing, or central spinal canal stenosis. C6-C7: This is a fused level. Asymmetric left-sided uncovertebral spurring with mild left foraminal narrowing. No right foraminal narrowing or central spinal canal stenosis. C7-T1: There is no significant disc herniation, foraminal narrowing, or central spinal canal stenosis. IMPRESSION: 1. Acute fracture involving the C4 spinous process with associated ligamentous injury along the supraspinatus and interspinous ligaments at C3-C4. 2. Fracture involving the inferior C3 endplate anteriorly with associated anterior longitudinal ligamentous injury and prevertebral edema. 3. Paraspinal edema extending from C1 to C4, likely related to muscular injury/strain. 4. No evidence of a cervical spinal cord injury. 5. Postsurgical changes are noted from an anterior C5-C7 fusion without complication. 6. Moderate central spinal canal narrowing at C4-C5. [facility], [place] 1. Acute fracture involving the C4 spinous process with associated ligamentous injury along the supraspinatus and interspinous ligaments at C3-C4. 2. Fracture involving the inferior C3 endplate anteriorly with associated anterior longitudinal ligamentous injury and prevertebral edema. 3. Paraspinal edema extending from C1 to C4, likely related to muscular injury/strain. 4. No evidence of a cervical spinal cord injury. 5. Postsurgical changes are noted from an anterior C5-C7 fusion without complication. 6. Moderate central spinal canal narrowing at C4-C5. [facility], [place] EXAMINATION: MRI OF THE CERVICAL SPINE WITHOUT CONTRAST 11/24/2019 10:15 am TECHNIQUE: Multiplanar multisequence MRI of the cervical spine was performed without the administration of intravenous contrast. COMPARISON: CT on 11/23/2019 HISTORY: ORDERING SYSTEM PROVIDED HISTORY: C4 spinous process fracture with soft tissue swelling concerning for ligament injury TECHNOLOGIST PROVIDED HISTORY: C4 spinous process fracture with soft tissue swelling concerning for ligament injury Follow-up FINDINGS: BONES/ALIGNMENT: There is minimal retrolisthesis of C3 on C4. Alignment of the cervical spine is otherwise normal. Postsurgical changes are noted from an anterior C5-C7 fusion. There are areas of edema along the C4 spinous process fracture with associated areas of edema along the C3-C4 interspinous and supraspinatus ligament, extending into the paraspinal musculature, concerning for muscular injury/strain. Additionally, there is a fracture noted through the C3 inferior endplate anteriorly with associated anterior longitudinal ligamentous injury with associated areas of prevertebral edema. This prevertebral edema extends primarily from C1 to C4. There are no other areas of marrow edema to suggest an acute fracture. SPINAL CORD: The visualized posterior fossa structures are unremarkable. The cervical spinal cord demonstrates normal signal intensity without evidence of an expansile mass lesion. SOFT TISSUES: No other paraspinal masses are identified. C2-C3: There is no significant disc protrusion, spinal canal stenosis or neural foraminal narrowing. C3-C4: There is a disc bulge indenting the anterior thecal sac measuring approximately 1 mm. No central spinal canal stenosis. Asymmetric left-sided facet arthropathy. The neural foramina are patent. C4-C5: There is a 3 mm central/left paracentral disc protrusion indenting the anterior thecal sac. Ligamentum flavum thickening is noted. Moderate central spinal canal narrowing. Asymmetric left-sided uncovertebral spurring with moderate left and mild right foraminal narrowing. C5-C6: This is a fused level. No disc herniation, foraminal narrowing, or central spinal canal stenosis. C6-C7: This is a fused level. Asymmetric left-sided uncovertebral spurring with mild left foraminal narrowing. No right foraminal narrowing or central spinal canal stenosis. C7-T1: There is no significant disc herniation, foraminal narrowing, or central spinal canal stenosis. [place] POC Glucose Fingerstickon Glucose [Mass/Vol] 135 mg/dL High 65 - 105 mg/dL [place] Interpretation and review of laboratory results Abnormal [place] Glucose [Mass/Vol] 88 mg/dL 65 - 105 mg/dL [place] Glucose [Mass/Vol] 76 mg/dL 65 - 105 mg/dL [place] TYPE AND SCREENon 11-24-2019 ABO/Rh Positive [place], [place] Arm Band Number BE [id number] [place], [place] Expiration Date 11/27/2019,2357 [place] Trauma Panelon 11-24-2019 Chase Test NOT REPORTED [place] Anion gap [Moles/Vol] 11 mmol/L 9 - 17 mmol/L [place] aPTT Coag (Bld) [Time] 25.5 s [place] aPTT Coag (Bld) [Time] 37.0 s [place] Blood Bank Specimen BILL FOR SERVICES PERFORMED [place] Carboxyhemoglobin 1.7 % 0 - 5 % [facility] [place] Comment on above: Reference Range: Non-Smokers 0-2% Average Smoker 2-4% Heavy Smoker <10% Chloride [Moles/Vol] 100 mmol/L 98 - 10 7 mmol/L [place] CO2 [Moles/Vol] 26 mmol/L 20 - 31 mmol/L [place] Creatinine [Mass/Vol] 0.9 mg/dL 0.5 - 0.9 mg/dL [place] Erythrocyte distribution width (RBC) [Ratio] 17.2 % High 11.8 - 14.4 % [place] Ethanol [Mass/Vol] mg/dL <10 mg/dL [place] Ethanol percent <0.010 <0.010 % [place] FIO2 UNKNOWN [place] GFR >60 >60 mL/min [place] GFR Non- >60 >60 mL/min [place] GFR/1.73 sq M predicted among non-blacks MDRD (S/P/Bld) [Vol rate/Area] NOT REPORTED [place] GFR/1.73 sq M predicted among non-blacks MDRD (S/P/Bld) [Vol rate/Area] [place] Comment on above: Average GFR for 60-6 9 years old: 85 mL/min/1.73sq m Chronic Kidney Disease: <60 mL/min/1.73sq m Kidney failure: <15 mL/min/1.73sq m eGFR calculated using average adult body mass. Additional eGFR calculator available at: http://www.[employer]/multiple_crcl_2012.htm Glucose [Mass/Vol] 70 mg/dL 70 - 99 mg/dL [place] hCG Qual Negative NEGATIVE [place] Comment on above: Specimens with hCG l evels near the threshold of the test (25 mIU/mL) may give a negative or indeterminate result. In such cases, another test should be performed with a new specimen in 48-72 hours. If early is suspected clinically in this setting, correlation with quantitative serum b-hCG level is suggested. [facility] the use of plasma for this test. This has not been cleared or approved by the U.S. Food and Drug Administration. The FDA has determined that such clearance is not necessary. HCO3, Venous 28.3 mmol/L 24 - 30 mmol/L [place] Hematocrit (Bld) [Volume fraction] 39.3 % 36.3 - 47.1 % [place] Hemoglobin (Bld) [Mass/Vol] 12.8 g/dL 11.9 - 15.1 g/dL [place] INR Coag (PPP) [Relative time] 1.1 {INR} [place], [place] Comment on above: Therapeutic Range: Moderate Anticoagulant Intensity: INR = 2.0-3.0 High Anticoagulant Intensity: INR = 2.5-3.5 Interpretation and review of laboratory results Abnormal [place] MCH (RBC) [Entitic mass] 30.1 pg 25. 2 - 33.5 pg [place] MCHC (RBC) [Mass/Vol] 32.6 g/dL 28.4 - 34.8 g/dL [place] MCV (RBC) [Entitic vol] 92.5 fL 82.6 - 102.9 fL [place] Methemoglobin NOT REPORTED 0 - 1.5 % [place], [place] Mode NOT REPORTED [place] Negative Base Excess, Adrian NOT REPORTED 0 - 2 mmol/L [place] NOTIFICATION NOT REPORTED [place] NOTIFICATION TIME NOT REPORTED [place] O2 Device/Flow/% NOT REPORTED [place] Oxygen saturation in Blood 57.4 % Low 60 - 85 % [place] Oxyhemoglobin NOT REPORTED 95 - 98 % [facility] [place] pCO2, Adrian 59.9 High [place] pCO2, Adrian, Temp Adj NOT REPORTED [place] Peep/Cpap NOT REPORTED [place] pH, Adrian 7.296 Low [place], [place] pH, Adrian, Temp Adj NOT REPORTED [place] Platelet mean volume (Bld) [Entitic vol] NOT REPORTED 8.1 - 13.5 fL [place] Platelets (Bld) [#/Vol] See Reflexed IPF Result [place] pO2, Adrian 35.6 [place] pO2, Adrian, Temp Adj NOT REPORTED [place] Positive Base Excess, Adrian 1.1 mmol/L 0 - 2 mmol/L [place] Potassium [Moles/Vol] 4.6 mmol/L 3.7 - 5.3 mmol/L [place] PSV NOT REPORTED [place] PT Coag (PPP) [Time] 11.5 s [place] Pt. Position NOT REPORTED [place] RBC (Bld) [#/Vol] 4.25 10*6/uL 3.95 - 5.1 1 m/uL [place] Sample Site NOT REPORTED [place], [place] Set Rate NOT REPORTED [place] Sodium [Moles/Vol] 137 mmol/L 135 - 144 mmol/L [place] Text for Respiratory NOT REPORTED [place] Total Hb NOT REPORTED 12 - 16 g/dl [place] Total Rate NOT REPORTED [place] Urea nitrogen [Mass/Vol] 23 mg/dL 8 - 23 mg/dL [place] VT NOT REPORTED [place] WBC (Bld) [#/Vol] 5.0 10*3/uL [place] WBC (Bld) [#/Vol] 0.0 10*3/uL 0.0 per 10 0 WBC [place] XR Cervical Spine Flexion an d Extensionon 11-24-2019 1. C4 spinous process fracture. 2. Anterior inferior fracture C3 with associated soft tissue swelling. 3. Status post fusion C5 through C7 with placement of compression plate and screws. No hardware abnormality. 4. No evidence of instability on flexion or extension views. No asymmetry in the intervertebral disc spaces. No subluxation. [place] Isidro, Mhpn Incoming Radiant Results From [facility] - 11/24/2019 11:38 AM EDT EXAMINATION: 2 XRAY VIEWS OF THE CERVICAL SPINE 11/24/2019 10:44 am COMPARISON: None. HISTORY: ORDERING SYSTEM PROVIDED HISTORY: C4 spinous process fx TECHNOLOGIST PROVIDED HISTORY: C4 spinous process fx Reason for Exam: c4 spinous process fx FINDINGS: C4 spinous process fracture is noted. There is a fracture of the anterior inferior aspect of C3 with distraction of 2.7 mm between the fracture fragments. Prevertebral soft tissue swelling is noted with soft tissues ventral to C measuring 14 mm. No asymmetry in the disc spaces is noted. Patient is status post cervical fusion C5 through C7 with placement of anterior compression plate and screws. No hardware complication is noted. No subluxation or instability is seen. IMPRESSION: 1. C4 spinous process fracture. 2. Anterior inferior fracture C3 with associated soft tissue swelling. 3. Status post fusion C5 through C7 with placement of compression plate and screws. No hardware abnormality. 4. No evidence of instability on flexion or extension views. No asymmetry in the intervertebral disc spaces. No subluxation. [place] EXAMINATION: 2 XRAY VIEWS OF THE CERVICAL SPINE 11/24/2019 10:44 am COMPARISON: None. HISTORY: ORDERING SYSTEM PROVIDED HISTORY: C4 spinous process fx TECHNOLOGIST PROVIDED HISTORY: C4 spinous process fx Reason for Exam: c4 spinous process fx FINDINGS: C4 spinous process fracture is noted. There is a fracture of the anterior inferior aspect of C3 with distraction of 2.7 mm between the fracture fragments. Prevertebral soft tissue swelling is noted with soft tissues ventral to C measuring 14 mm. No asymmetry in the disc spaces is noted. Patient is status post cervical fusion C5 through C7 with placement of anterior compression plate and screws. No hardware complication is noted. No subluxation or instability is seen. [facility], Whole Bloodon 11-22 Glucose [Mass/Vol] 91 mg/dL 74 - 100 mg/dL [facility] Otheron 11-23-2019 Isidro, Mhpn Incoming Radiant Results From [facility] - 11/23/2019 11:19 PM EDT EXAMINATION: CT OF THE THORACIC SPINE WITHOUT CONTRAST; CT OF THE LUMBAR SPINE WITHOUT CONTRAST 11/23/2019 8:21 pm: TECHNIQUE: CT of the thoracic spine was performed without the administration of intravenous contrast. Multiplanar reformatted images are provided for review. Dose modulation, iterative reconstruction, and/or weight based adjustment of the mA/kV was utilized to reduce the radiation dose to as low as reasonably achievable.; CT of the lumbar spine was performed without the administration of intravenous contrast. Multiplanar reformatted images are provided for review. Dose modulation, iterative reconstruction, and/or weight based adjustment of the mA/kV was utilized to reduce the radiation dose to as low as reasonably achievable. COMPARISON: None. HISTORY: ORDERING SYSTEM PROVIDED HISTORY: Fall TECHNOLOGIST PROVIDED HISTORY: Fall 64-year-old female with upper back pain after a fall. FINDINGS: Thoracic spine: BONES/ALIGNMENT: Thoracic spine is imaged from superior aspect of C7 vertebral body level to the superior endplate of L1 on the sagittal reconstructions. Spinal fusion hardware partially visualized in the lower cervical spine. Alignment well maintained. Axial images demonstrate no clear evidence for acute fracture within the thoracic spine. DEGENERATIVE CHANGES: Mild multilevel disc space narrowing and hypertrophic osteophyte spur formation. Multilevel vacuum disc phenomenon in the lower thoracic spine. SOFT TISSUES: Mild bibasilar atelectasis and respiratory motion. Atherosclerotic calcification of the thoracic aorta. Coronary artery disease. Lumbar spine: BONES/ALIGNMENT: Lumbar spine is imaged from inferior endplate of T11 to the S2 level on the sagittal reconstructions. Gross preservation of the vertebral body heights. Alignment relatively well maintained. Mild multilevel facet arthrosis. No clear evidence for acute fracture within the lumbar spine. Axial images demonstrate no clear evidence for acute fracture in the lumbar spine. DEGENERATIVE CHANGES: Severe disc space narrowing at L5-S1. Mild multilevel disc space narrowing and vacuum disc phenomenon as well as hypertrophic osteophyte spur formation. SOFT TISSUES: Atherosclerotic calcification of the abdominal aorta and branch vasculature. IMPRESSION: Thoracic spine: 1. Mild multilevel degenerative changes in the thoracic spine. 2. No clear evidence for acute fracture or malalignment within the thoracic spine. Lumbar spine: 1. Mild multilevel degenerative changes within the lumbar spine. 2. No clear evidence for acute fracture or malalignment within the lumbar spine. 3. Severe disc space narrowing at L5-S1. [place] Thoracic spine: 1. Mild multilevel degenerative changes in the thoracic spine. 2. No clear evidence for acute fracture or malalignment within the thoracic spine. Lumbar spine: 1. Mild multilevel degenerative changes within the lumbar spine. 2. No clear evidence for acute fracture or malalignment within the lumbar spine. 3. Severe disc space narrowing at L5-S1. [place] EXAMINATION: CT OF THE THORACIC SPINE WITHOUT CONTRAST; CT OF THE LUMBAR SPINE WITHOUT CONTRAST 11/23/2019 8:21 pm: TECHNIQUE: CT of the thoracic spine was performed without the administration of intravenous contrast. Multiplanar reformatted images are provided for review. Dose modulation, iterative reconstruction, and/or weight based adjustment of the mA/kV was utilized to reduce the radiation dose to as low as reasonably achievable.; CT of the lumbar spine was performed without the administration of intravenous contrast. Multiplanar reformatted images are provided for review. Dose modulation, iterative reconstruction, and/or weight based adjustment of the mA/kV was utilized to reduce the radiation dose to as low as reasonably achievable. COMPARISON: None. HISTORY: ORDERING SYSTEM PROVIDED HISTORY: Fall TECHNOLOGIST PROVIDED HISTORY: Fall 64-year-old female with upper back pain after a fall. FINDINGS: Thoracic spine: BONES/ALIGNMENT: Thoracic spine is imaged from superior aspect of C7 vertebral body level to the superior endplate of L1 on the sagittal reconstructions. Spinal fusion hardware partially visualized in the lower cervical spine. Alignment well maintained. Axial images demonstrate no clear evidence for acute fracture within the thoracic spine. DEGENERATIVE CHANGES: Mild multilevel disc space narrowing and hypertrophic osteophyte spur formation. Multilevel vacuum disc phenomenon in the lower thoracic spine. SOFT TISSUES: Mild bibasilar atelectasis and respiratory motion. Atherosclerotic calcification of the thoracic aorta. Coronary artery disease. Lumbar spine: BONES/ALIGNMENT: Lumbar spine is imaged from inferior endplate of T11 to the S2 level on the sagittal reconstructions. Gross preservation of the vertebral body heights. Alignment relatively well maintained. Mild multilevel facet arthrosis. No clear evidence for acute fracture within the lumbar spine. Axial images demonstrate no clear evidence for acute fracture in the lumbar spine. DEGENERATIVE CHANGES: Severe disc space narrowing at L5-S1. Mild multilevel disc space narrowing and vacuum disc phenomenon as well as hypertrophic osteophyte spur formation. SOFT TISSUES: Atherosclerotic calcification of the abdominal aorta and branch vasculature. [place] No acute intracranial hemorrhage C4 spinous process fracture is noted. There is fragmentation of the anterior spurs at C3 and C4. This is age indeterminate. However, there is multilevel prevertebral soft tissue thickening throughout the cervical spine. MRI is recommended to assess for anterior longitudinal ligament integrity. No acute fractures are otherwise noted. [place] EXAMINATION: CT OF THE HEAD WITHOUT CONTRAST; CT OF THE CERVICAL SPINE WITHOUT CONTRAST 11/23/2019 8:15 pm; 11/23/2019 8:19 pm TECHNIQUE: CT of the head was performed without the administration of intravenous contrast. Dose modulation, iterative reconstruction, and/or weight based adjustment of the mA/kV was utilized to reduce the radiation dose to as low as reasonably achievable.; CT of the cervical spine was performed without the administration of intravenous contrast. Multiplanar reformatted images are provided for review. Dose modulation, iterative reconstruction, and/or weight based adjustment of the mA/kV was utilized to reduce the radiation dose to as low as reasonably achievable. COMPARISON: None. HISTORY: ORDERING SYSTEM PROVIDED HISTORY: Fall TECHNOLOGIST PROVIDED HISTORY: Fall; ORDERING SYSTEM PROVIDED HISTORY: Fall TECHNOLOGIST PROVIDED HISTORY: Fall FINDINGS: BRAIN/VENTRICLES: Detail of the parenchyma is limited due to artifact. Ventricles are prominent for the patient's age. Right lateral ventricle is larger than the left. Sulci are prominent. There is no midline shift. Mild low-density in the periventricular white matter is noted bilaterally. This is likely due to small vessel ischemic change. There is no parenchymal hematoma. There is no extra-axial hematoma. ORBITS: No acute orbital abnormality is noted. Mild prominence of the superior medial orbital venous structures is noted bilaterally. Superior ophthalmic veins are normal in caliber otherwise. SINUSES: No fluid levels are noted. SOFT TISSUES/SKULL: No acute fracture is noted. There is no soft tissue hematoma CT cervical spine: Straightening of the normal cervical spine curvature is noted. Multilevel postop change in the lower cervical spine is noted. Fragmentation of the anterior spur at C3 is noted. Fragmentation of the anterior spur is noted C4 is well. Fracture of the C4 spinous process is noted. No other cervical spine fractures are noted. Prevertebral soft tissues are thickened throughout the cervical spine. There is no soft tissue mass or hematoma noted otherwise. Vascular calcifications are noted. Canal detail is limited. Multilevel disc bulging is noted. [facility] [place] [place], [place] Isidro, M[facility] Incoming Radiant Results From [employer] - 11/23/2019 8:46 PM EDT EXAMINATION: CT OF THE HEAD WITHOUT CONTRAST; CT OF THE CERVICAL SPINE WITHOUT CONTRAST 11/23/2019 8:15 pm; 11/23/2019 8:19 pm TECHNIQUE: CT of the head was performed without the administration of intravenous contrast. Dose modulation, iterative reconstruction, and/or weight based adjustment of the mA/kV was utilized to reduce the radiation dose to as low as reasonably achievable.; CT of the cervical spine was performed without the administration of intravenous contrast. Multiplanar reformatted images are provided for review. Dose modulation, iterative reconstruction, and/or weight based adjustment of the mA/kV was utilized to reduce the radiation dose to as low as reasonably achievable. COMPARISON: None. HISTORY: ORDERING SYSTEM PROVIDED HISTORY: Fall TECHNOLOGIST PROVIDED HISTORY: Fall; ORDERING SYSTEM PROVIDED HISTORY: Fall TECHNOLOGIST PROVIDED HISTORY: Fall FINDINGS: BRAIN/VENTRICLES: Detail of the parenchyma is limited due to artifact. Ventricles are prominent for the patient's age. Right lateral ventricle is larger than the left. Sulci are prominent. There is no midline shift. Mild low-density in the periventricular white matter is noted bilaterally. This is likely due to small vessel ischemic change. There is no parenchymal hematoma. There is no extra-axial hematoma. ORBITS: No acute orbital abnormality is noted. Mild prominence of the superior medial orbital venous structures is noted bilaterally. Superior ophthalmic veins are normal in caliber otherwise. SINUSES: No fluid levels are noted. SOFT TISSUES/SKULL: No acute fracture is noted. There is no soft tissue hematoma CT cervical spine: Straightening of the normal cervical spine curvature is noted. Multilevel postop change in the lower cervical spine is noted. Fragmentation of the anterior spur at C3 is noted. Fragmentation of the anterior spur is noted C4 is well. Fracture of the C4 spinous process is noted. No other cervical spine fractures are noted. Prevertebral soft tissues are thickened throughout the cervical spine. There is no soft tissue mass or hematoma noted otherwise. Vascular calcifications are noted. Canal detail is limited. Multilevel disc bulging is noted. IMPRESSION: No acute intracranial hemorrhage C4 spinous process fracture is noted. There is fragmentation of the anterior spurs at C3 and C4. This is age indeterminate. However, there is multilevel prevertebral soft tissue thickening throughout the cervical spine. MRI is recommended to assess for anterior longitudinal ligament integrity. No acute fractures are otherwise noted. [place] XR CHEST PORTABLEon 11-23-19 20 Isidro, [facility] Incoming Radiant Results From [employer] - 11/23/2019 9:06 PM EDT EXAMINATION: ONE XRAY VIEW OF THE CHEST 11/23/2019 8:49 pm COMPARISON: None. HISTORY: ORDERING SYSTEM PROVIDED HISTORY: Fall TECHNOLOGIST PROVIDED HISTORY: Fall 64-year-old female with history of fall FINDINGS: Portable supine view of the chest. Bandlike opacity at the left lower lung zone, bandlike atelectasis or parenchymal scarring. Mild opacity at the right mid lung zone. No sizable pleural effusions. No obvious pneumothorax on limited portable supine imaging. Spinal fusion hardware projects over the lower cervical spine. Atherosclerotic calcification of the aortic knob. Trachea midline. Cardiac and mediastinal contours within normal limits. No acute osseous abnormality evident. IMPRESSION: 1. Mild airspace disease at the right mid lung zone, atelectasis and/or infiltrate. 2. Bandlike atelectasis or parenchymal scarring at the left lower lung zone. 3. No sizable pleural effusions. [place] EXAMINATION: ONE XRAY VIEW OF THE CHEST 11/23/2019 8:49 pm COMPARISON: None. HISTORY: ORDERING SYSTEM PROVIDED HISTORY: Fall TECHNOLOGIST PROVIDED HISTORY: Fall 64-year-old female with history of fall FINDINGS: Portable supine view of the chest. Bandlike opacity at the left lower lung zone, bandlike atelectasis or parenchymal scarring. Mild opacity at the right mid lung zone. No sizable pleural effusions. No obvious pneumothorax on limited portable supine imaging. Spinal fusion hardware projects over the lower cervical spine. Atherosclerotic calcification of the aortic knob. Trachea midline. Cardiac and mediastinal contours within normal limits. No acute osseous abnormality evident. [place] 1. Mild airspace disease at the right mid lung zone, atelectasis and/or infiltrate. 2. Bandlike atelectasis or parenchymal scarring at the left lower lung zone. 3. No sizable pleural effusions. [facility]MIN 2 VIEW S)on 11-23-2019 Isidro, [facility] Incoming Radiant Results From [employer] - 11/23/2019 9:04 PM EDT EXAMINATION: TWO XRAY VIEWS OF THE RIGHT HUMERUS 11/23/2019 8:50 pm COMPARISON: None. HISTORY: ORDERING SYSTEM PROVIDED HISTORY: Fall TECHNOLOGIST PROVIDED HISTORY: Fall 64-year-old female with right arm pain after a fall FINDINGS: Visualized right-sided ribs appear intact. No acute fracture or dislocation. Foreshortening of the distal right clavicle which may be related to sequela of remote trauma or prior surgery. Right glenohumeral joint grossly unremarkable. Mild degenerative change of the right AC joint. Right humerus appears intact. IMPRESSION: 1. Foreshortening of the distal right clavicle which could be related to sequela of remote trauma or prior surgery. 2. No acute fracture evident. Right humerus appears intact. [facility] 1. Foreshortening of the distal right clavicle which could be related to sequela of remote trauma or prior surgery. 2. No acute fracture evident. Right humerus appears intact. [facility] EX[facility]: TWO XRAY VIEWS OF THE RIGHT HUMERUS 11/23/2019 8:50 pm COMPARISON: None. HISTORY: ORDERING SYSTEM PROVIDED HISTORY: Fall TECHNOLOGIST PROVIDED HISTORY: Fall 64-year-old female with right arm pain after a fall FINDINGS: Visualized right-sided ribs appear intact. No acute fracture or dislocation. Foreshortening of the distal right clavicle which may be related to sequela of remote trauma or prior surgery. Right glenohumeral joint grossly unremarkable. Mild degenerative change of the right AC joint. Right humerus appears intact. [facility] PEL[facility] (1-2 VIEWS)on Isidro, [facility] Incoming Radiant Results From [facility] - 11/23/2019 9:05 PM EDT EXAMINATION: ONE XRAY VIEW OF THE PELVIS 11/23/2019 8:50 pm COMPARISON: None. HISTORY: ORDERING SYSTEM PROVIDED HISTORY: fall TECHNOLOGIST PROVIDED HISTORY: fall FINDINGS: Single image of the pelvis was provided. Detail of the sacrum is limited due to overlying bowel gas. Degenerative changes in the SI joints and the hips are noted. No acute displaced fracture is noted. IMPRESSION: No acute fracture in the pelvis. [employer] No acute fracture in the pelvis. [employer] [facility] EXAMINATION: ONE XRAY VIEW OF THE PELVIS 11/23/2019 8:50 pm COMPARISON: None. HISTORY: ORDERING SYSTEM PROVIDED HISTORY: fall TECHNOLOGIST PROVIDED HISTORY: fall FINDINGS: Single image of the pelvis was provided. Detail of the sacrum is limited due to overlying bowel gas. Degenerative changes in the SI joints and the hips are noted. No acute displaced fracture is noted. [employer] [facility] CBC Auto DifferentialOrdered By: Dora Sheridan on 09-12-2019 [employer] # 0.05 [employer] Work Phone: Absolute Immature Granulocyte <0.03 [employer] Work Phone: Absolute Lymph # 1.24 ralali [facility] Work Phone: Absolute Sullivan # 0.24 ralalia [facility] Work Phone: Basophils (Bld) [#/Vol] 10*3/uL M [employer] Work Phone: Basophils/100 WBC (Bld) 0 % 0 - 2 % M [employer] Work Phone: Differential Type NOT REPORTED [employer] Phone: Eosinophils/100 WBC (Bld) 2 % 1 - 4 % [employer] Phone: Erythrocyte distribution width (RBC) [Ratio] 15.6 % High 11.8 - 14.4 % [employer] Phone: Hematocrit (Bld) [Volume fraction] 35.2 % Low 36.3 - 47.1 % [employer] Phone: Hemoglobin (Bld) [Mass/Vol] 10.3 g/dL Low 11.9 - 15.1 g/dL [employer] Phone: Immature granulocytes/100 WBC (Bld) 0 % 0 [employer] Phone: Interpretation and review of laboratory results Abnormal [employer] Phone: Lymphocytes/100 WBC (Bld) 40 % 24 - 43 % [employer] Phone: MCH (RBC) [Entitic mass] 26.4 pg 25. 2 - 33.5 pg [employer] Phone: MCHC (RBC) [Mass/Vol] 29.3 g/dL 28.4 - 34.8 g/dL [employer] Phone: MCV (RBC) [Entitic vol] 90.3 fL 82.6 - 102.9 fL [employer] Phone: Monocytes/100 WBC (Bld) 8 % 3 - 12 % [facility] Phone: NRBC Automated 0.0 0.0 per 100 WBC [employer] Phone: Platelet Estimate NOT REPORTED [facility] Phone: Platelet mean volume (Bld) [Entitic vol] 10.1 fL 8.1 - 13.5 fL [employer] Phone: Platelets (Bld) [#/Vol] 114 10*3/uL Low [employer] Phone: RBC (Bld) [#/Vol] 3.90 10*6/uL Low 3.95 - 5.1 1 m/uL [employer] Work Phone: RBC morphology finding Nom (Bld) NOT REPORTED [facility] Phone: Segmented neutrophils/100 WBC (Bld) 50 % 36 - 65 % [facility] [employer] [facility] Work Phone: Segs Absolute 1.52 [employer] Work Phone: WBC (Bld) [#/Vol] 3.1 10*3/uL Low [employer] Work Phone: WBC Morphology NOT REPORTED [employer] Work Phone: Comprehensive Metabolic Pane lOrdered By: Dora Sheridan on 09-12-2019 Albumin [Mass/Vol] 3.8 g/dL 3.5 - 5.2 g/dL [employer] Phone: Albumin/Globulin [Mass ratio] 1.1 {ratio} [employer] Phone: ALP [Catalytic activity/Vol] 76 U/L 35 - 104 U/L [employer] Phone: ALT [Catalytic activity/Vol] 16 U/L 5 - 33 U/L [employer] Phone: Anion gap [Moles/Vol] 11 mmol/L 9 - 17 mmol/L [employer] Phone: AST [Catalytic activity/Vol] 27 U/L <32 [employer] Phone: Bilirubin [Mass/Vol] 0.44 mg/dL 0.3 - 1 .2 mg/dL [employer] Phone: Bun/Cre Ratio 21 [employer] [facility] [employer] Work Phone: Calcium [Mass/Vol] 9.6 mg/dL 8.6 - 10. 4 mg/dL [employer] Phone: Chloride [Moles/Vol] 100 mmol/L 98 - 10 7 mmol/L [employer] Phone: CO2 [Moles/Vol] 26 mmol/L 20 - 31 mmol/L [employer] Phone: Creatinine [Mass/Vol] 0.91 mg/dL High 0.5 - 0.9 mg/dL [employer] Phone: GFR >60 >60 mL/min [email or web address] Phone: GFR Comment [employer] Phone: Comment on above: Average GFR for 60-6 9 years old: 85 mL/min/1.73sq m Chronic Kidney Disease: <60 mL/min/1.73sq m Kidney failure: <15 mL/min/1.73sq m eGFR calculated using average adult body mass. Additional eGFR calculator available at: http://www.[employer]/multiple_crcl_2012.htm GFR Non- >60 >60 mL/min [employer] Phone: GFR Staging [employer] Phone: Comment on above: Stage 1: Some kidney damage normal GFR Stage 2: Mild kidney damage GFR 60-89 Stage 3: Moderate kidney damage GFR 30-59 Stage 4: Severe kidney damage GFR 15-29 Stage 5: Severe kidney damage GFR <15 ESRD - chronic treatment by dialysis or transplant Glucose [Mass/Vol] 154 mg/dL High 70 - 99 mg/dL [employer] Phone: Interpretation and review of laboratory results Abnormal [employer] Phone: Potassium [Moles/Vol] 5.3 mmol/L 3.7 - 5.3 mmol/L [employer] Phone: Protein [Mass/Vol] 7.2 g/dL 6.4 - 8.3 g/dL [employer] Phone: Sodium [Moles/Vol] 137 mmol/L 135 - 144 mmol/L [employer] Phone: Urea nitrogen [Mass/Vol] 19 mg/dL 8 - 23 mg/dL [employer] Phone: CBC Auto Differentialon 06-17 Basophils (Bld) [#/Vol] 0.03 10*3/uL [facility] [place] Basophils/100 WBC (Bld) 1 % 0 - 2 % M [facility] [place], [place] Differential Type NOT REPORTED [place] Eosinophils (Bld) [#/Vol] 0.05 10*3/uL [facility] [employer] [place] Eosinophils/100 WBC (Bld) 1 % 1 - 4 % [place] Erythrocyte distribution width (RBC) [Ratio] 16.2 % High 11.8 - 14.4 % [place] Hematocrit (Bld) [Volume fraction] 35.1 % Low 36.3 - 47.1 % [place] Hemoglobin (Bld) [Mass/Vol] 10.5 g/dL Low 11.9 - 15.1 g/dL [place] Immature granulocytes (Bld) [#/Vol] 10*3/uL [place] Immature granulocytes (Bld) [#/Vol] 0 % 0 [place] Interpretation and review of laboratory results Abnormal [place] Lymphocytes (Bld) [#/Vol] 1.36 10*3/uL [place] Lymphocytes/100 WBC (Bld) 35 % 24 - 43 % [place] MCH (RBC) [Entitic mass] 26.3 pg 25. 2 - 33.5 pg [place] MCHC (RBC) [Mass/Vol] 29.9 g/dL 28.4 - 34.8 g/dL [place] MCV (RBC) [Entitic vol] 87.8 fL 82.6 - 102.9 fL [place] Monocytes (Bld) [#/Vol] 0.24 10*3/uL [place] Monocytes/100 WBC (Bld) 6 % 3 - 12 % M [place] Platelet mean volume (Bld) [Entitic vol] 9.9 fL 8.1 - 13.5 fL [place] Platelets (Bld) [#/Vol] 138 10*3/uL [place] Platelets (Bld) [#/Vol] NOT REPORTED [place] RBC (Bld) [#/Vol] 4.00 10*6/uL 3.95 - 5.1 1 m/uL [place] RBC morphology finding Nom (Bld) NOT REPORTED [place] Segmented neutrophils/100 WBC (Bld) 57 % 36 - 65 % [place] Segs Absolute 2.24 [place] WBC (Bld) [#/Vol] 0.0 10*3/uL 0.0 per 10 0 WBC [place] WBC (Bld) [#/Vol] 3.9 10*3/uL [place] WBC Morphology NOT REPORTED [place] Comprehensive Metabolic Pane roger 06-28-2019 Albumin [Mass/Vol] 3.7 g/dL 3.5 - 5.2 g/dL [place] Albumin/Globulin [Mass ratio] 1.0 {ratio} [place] ALP [Catalytic activity/Vol] 89 U/L 35 - 104 U/L [place] ALT [Catalytic activity/Vol] 16 U/L 5 - 33 U/L [place] Anion gap [Moles/Vol] 9 mmol/L 9 - 17 mmol/L [place] AST [Catalytic activity/Vol] 23 U/L <32 [place] Bilirubin Ql (U) 0.45 mg/dL 0.3 - 1.2 mg/dL [place] Bun/Cre Ratio 17 [place] Calcium [Mass/Vol] 8.8 mg/dL 8.6 - 10. 4 mg/dL [place] Chloride [Moles/Vol] 102 mmol/L 98 - 10 7 mmol/L [place] CO2 [Moles/Vol] 28 mmol/L 20 - 31 mmol/L [place] Creatinine [Mass/Vol] 0.84 mg/dL 0.5 - 0.9 mg/dL [place] GFR >60 >60 mL/min [place] GFR Non- >60 >60 mL/min [place] Glucose [Mass/Vol] 119 mg/dL High 70 - 99 mg/dL [place] Interpretation and review of laboratory results Abnormal [place] Potassium [Moles/Vol] 4.0 mmol/L 3.7 - 5.3 mmol/L [place] Protein [Mass/Vol] 7.4 g/dL 6.4 - 8.3 g/dL [place] Sodium [Moles/Vol] 139 mmol/L 135 - 144 mmol/L [place] Urea nitrogen [Mass/Vol] 14 mg/dL 8 - 23 mg/dL [place] Ferritinon 06-28-2019 Ferritin [Mass/Vol] 23 ug/L 13 - 150 ug/L [place] Hemoglobin A1Con 06-28-2019 Glucose [Mass/Vol] 146 mg/dL [place] Comment on above: The ADA and AACC rec ommend providing the estimated average glucose result to permit better patient understanding of their HBA1c result. HbA1c (Bld) [Mass fraction] 6.7 % High 4.8 - 5.9 % [place] Interpretation and review of laboratory results Abnormal [place] Iron and TIBCon 06-28-2019 Interpretation and review of laboratory results Abnormal [place] Iron [Mass/Vol] 56 ug/dL 37 - 145 ug/dL [place] Iron Saturation 14 % Low 20 - 55 % [place], [place] TIBC 400 ug/dL 250 - 450 ug/dL [place] UIBC 344 ug/dL 112 - 347 ug/dL [place] Lipid Panelon 06-28-2019 Cholesterol [Mass/Vol] 96 mg/dL <200 Me [place], [place] Comment on above: Cholesterol Guidelines: <200 Desirable 200-240 Borderline >240 Undesirable Cholesterol in HDL [Mass/Vol] 47 mg/dL >40 [place] Comment on above: HDL Guidelines: <40 Undesirable 40-59 Borderline >59 Desirable Cholesterol in LDL [Mass/Vol] 30 mg/dL 0 - 130 mg/dL [place] Comment on above: LDL Guidelines: <100 Desirable 100-129 Near to/above Desirable 130-159 Borderline >159 Undesirable Direct (measured) LDL and calculated LDL are not interchangeable tests. Cholesterol in VLDL [Mass/Vol] NOT REPORTED 1 - 30 mg/dL [place] Cholesterol.total/Choles terol in HDL [Mass ratio] 2 {ratio} <5 [place] Triglyceride [Mass/Vol] 96 mg/dL <150 M [place] Comment on above: Triglyceride Guidelines: <150 Desirable 150-199 Borderline 200-499 High >499 Very high Based on AHA Guidelines for fasting triglyceride, May 2012. Metabolic Panelon 06-28-2019 GFR/1.73 sq M predicted among non-blacks MDRD (S/P/Bld) [Vol rate/Area] [place] Comment on above: Average GFR for 60-6 9 years old: 85 mL/min/1.73sq m Chronic Kidney Disease: <60 mL/min/1.73sq m Kidney failure: <15 mL/min/1.73sq m eGFR calculated using average adult body mass. Additional eGFR calculator available at: [email or web address]_crcl_2011.htm Stage 1: Some kidney damage normal GFR Stage 2: Mild kidney damage GFR 60-89 Stage 3: Moderate kidney damage GFR 30-59 Stage 4: Severe kidney damage GFR 15-29 Stage 5: Severe kidney damage GFR <15 ESRD - chronic treatment by dialysis or transplant Microalbumin, Uron 9 Albumin/Creatinine DL <= 20 mg/L (24H U) [Mass ratio] 14 mg/L <21 [place] Albumin/Creatinine DL <= 20 mg/L (U) [Ratio] 8 <25 mcg/mg creat [place] Creatinine [Mass/Vol] 185.6 mg/dL 28 - 2 17 mg/dL [place] TSH With Reflex Ft4on 2018 TSH Qn 2.10 m[IU]/L [place], [place] Vitamin B12 & Folateon 06-28 Cobalamin (Vitamin B12) [Mass/Vol] 878 pg/mL 232 - 1245 pg/mL [place] Folate >20.0 >4.8 ng/mL [place] Vitamin D 25 Hydroxyon 06-28 Vit D, 25-Hydroxy 51.2 ng/mL 30 - 100 ng/mL [place] Comment on above: Reference Range: Vitamin D status Range Deficiency <20 ng/mL Mild Deficiency 20-30 ng/mL Sufficiency 30-100 ng/mL Toxicity >100 ng/mL Vital Signs Date Time Vital Sign Value Performing Clinician Nasir goldman 04-01-2023 20:30-0400 Diastolic blood pressure 65 mm[Hg] Jewel Valentin MD Work Phone: [employer] 04-01-2023 20:30-0400 Heart rate 75 /min Jewel Valentin MD Work Phone: [employer] 04-01-2023 20:30-0400 Respiratory rate 26 /min Jewel Valentin MD Work Phone: [employer] 04-01-2023 20:30-0400 Systolic blood pressure 94 mm[Hg] Jewel Valentin MD Work Phone: [employer] 04-01-2023 18:45-0400 SaO2% (BldA) [Mass fraction] 95 % Jewel Valentin MD Work Phone: [employer] 04-01-2023 17:09-0400 Body height 160 cm Jewel Valentin MD Work Phone: [employer] 04-01-2023 17:09-0400 Body mass index (BMI) [Ratio] 30.29 kg/m2 Jewel Valentin MD Work Phone: [employer] 04-01-2023 17:09-0400 Body temperature 97.39 [degF] Jewel Valentin MD Work Phone: [employer] 04-01-2023 17:09-0400 Body weight 77.56 kg Jewel Valentin MD Work Phone: [employer] 01-16-2023 07:46-0400 Body temperature 98.29 [degF] Benjamin Araya MD Work Phone: [employer] 01-16-2023 07:46-0400 Diastolic blood pressure 73 mm[Hg] Benjamin Araya MD Work Phone: [employer] 01-16-2023 07:46-0400 Heart rate 72 /min Benjamin Araya MD Work Phone: [employer] 01-16-2023 07:46-0400 Respiratory rate 16 /min Benjamin Araya MD Work Phone: [facility] 01-16-2023 07:46-0400 SaO2% (BldA) [Mass fraction] 90 % Benjamin Araya MD Work Phone: [facility] 01-16-2023 07:46-0400 Systolic blood pressure 130 mm[Hg] Benjamin Araya MD Work Phone: [facility] 01-14-2023 20:30-0400 Body height 162.6 cm Benjamin Araya MD Work Phone: [facility] [employer] 01-14-2023 20:30-0400 Body mass index (BMI) [Ratio] 31.07 kg/m2 Benjamin Araya MD Work Phone: [facility] 01-14-2023 20:30-0400 Body weight 82.1 kg Benjamin Araya MD Work Phone: [facility] 11-29-2022 17:34-0400 Heart rate 63 /min Carlos Mitchell MD Work Phone: [facility] 11-29-2022 17:34-0400 Respiratory rate 19 /min Carlos Mitchell MD Work Phone: [facility] 11-29-2022 17:04-0400 Diastolic blood pressure 57 mm[Hg] Carlos Mitchell MD Work Phone: [facility] 11-29-2022 17:04-0400 Systolic blood pressure 117 mm[Hg] Carlos Mitchell MD Work Phone: [facility] 11-29-2022 14:30-0400 SaO2% (BldA) [Mass fraction] 95 % Carlos Mitchell MD Work Phone: [facility] 11-29-2022 11:44-0400 Body temperature 98.6 [degF] Carlos Mitchell MD Work Phone: [employer] 11-25-2022 10:30-0400 Heart rate 73 /min Abner Andes DO Work Phone: [facility] 11-25-2022 10:30-0400 Respiratory rate 16 /min Abner Andes DO Work Phone: [facility] 11-25-2022 10:30-0400 SaO2% (BldA) [Mass fraction] 90 % Abner Andes DO Work Phone: [facility] 11-25-2022 06:30-0400 Body temperature 98.49 [degF] Abner Andes DO Work Phone: [facility] 11-25-2022 06:30-0400 Diastolic blood pressure 58 mm[Hg] Abner Andes DO Work Phone: [facility] 11-25-2022 06:30-0400 Systolic blood pressure 114 mm[Hg] Abner Andes DO Work Phone: [facility] 11-25-2022 05:25-0400 Body mass index (BMI) [Ratio] 33.14 kg/m2 Abner Andes DO Work Phone: [facility] 11-25-2022 05:25-0400 Body weight 84.87 kg Abner Andes DO Work Phone: [facility] 11-19-2022 08:03-0400 Body height 160 cm Abner Andes DO Work Phone: [facility] 10-17-2022 13:05-0500 Body height 160 cm Benjamin Valenzuela MD Work Phone: [employer] 10-17-2022 11:19-0500 Body temperature 98.1 [degF] Bnejamin Valenzuela MD Work Phone: [facility] 10-17-2022 11:19-0500 Diastolic blood pressure 54 mm[Hg] Benjamin Valenzuela MD Work Phone: [facility] [employer] 10-17-2022 11:19-0500 Heart rate 63 /min Benjamin Valenzuela MD Work Phone: [facility] [employer] 10-17-2022 11:19-0500 Respiratory rate 18 /min Benjamin Valenzuela MD [facility] Phone: [facility] 10-17-2022 11:19-0500 SaO2% (BldA) [Mass fraction] 93 % Benjamin Valenzuela MD Work Phone: [facility] 10-17-2022 11:19-0500 Systolic blood pressure 125 mm[Hg] Benjamin Valenzuela MD Work Phone: [facility] 10-09-2022 23:00-0500 Body mass index (BMI) [Ratio] 31.4 kg/m2 Benjamin Valenzuela MD Work Phone: [facility] 10-09-2022 23:00-0500 Body weight 80.4 kg Benjamin Valenzuela MD Work Phone: [facility] [employer] 10-04-2022 00:05-0500 Diastolic blood pressure 65 mm[Hg] Sean Vogt MD [facility] 10-04-2022 00:05-0500 Heart rate 81 /min Sean Vogt MD [email or web address] 10-04-2022 00:05-0500 Respiratory rate 22 /min Sean Vogt MD [facility] [employer] 10-04-2022 00:05-0500 SaO2% (BldA) [Mass fraction] 97 % Sean [facility]ogt MD [facility] 10-04-2022 00:05-0500 Systolic blood pressure 113 mm[Hg] Sean [facility]ogt MD [facility] 10-03-2022 21:04-0500 Body temperature 98.1 [degF] Sean [facility]ogt [facility] [employer] 09-11-2022 09:15-0500 Body temperature 98.6 [degF] Zamzam Zhu MD Work Phone: [facility] 09-11-2022 09:15-0500 Diastolic blood pressure 61 mm[Hg] Zamzam Zhu MD Work Phone: [employer] 09-11-2022 09:15-0500 Heart rate 67 /min Zamzam Zhu MD Work Phone: [facility] [employer] 09-11-2022 09:15-0500 Respiratory rate 18 /min Zamzam Zhu MD Work Phone: [facility] [employer] 09-11-2022 09:15-0500 SaO2% (BldA) [Mass fraction] 94 % Zamzam Zhu MD Work Phone: [facility] [employer] 09-11-2022 09:15-0500 Systolic blood pressure 108 mm[Hg] Zamzam Zhu MD Work Phone: [facility] 09-11-2022 05:53-0500 Body mass index (BMI) [Ratio] 32.63 kg/m2 Zamzam Zhu MD Work Phone: [facility] [employer] 09-11-2022 05:53-0500 Body weight 83.55 kg Zamzam Zhu MD Work Phone: [employer] 09-08-2022 11:05-0500 Body height 160 cm Zamzam Zhu MD Work Phone: [facility] [employer] 03-18-2022 17:45-0400 Diastolic blood pressure 78 mm[Hg] Darell Watts MD Work Phone: [employer] 03-18-2022 17:45-0400 Heart rate 68 /min Darell Watts MD Work Phone: [employer] 03-18-2022 17:45-0400 Respiratory rate 18 /min Darell Watts MD Work Phone: [facility] 03-18-2022 17:45-0400 SaO2% (BldA) [Mass fraction] 99 % Darell Watts MD Work Phone: [employer] 03-18-2022 17:45-0400 Systolic blood pressure 128 mm[Hg] Darell Watts MD Work Phone: [employer] 03-18-2022 15:37-0400 Body height 160 cm Darell Watts MD Work Phone: [facility] 03-18-2022 15:37-0400 Body mass index (BMI) [Ratio] 32.06 kg/m2 Darell Watts MD Work Phone: [employer] 03-18-2022 15:37-0400 Body temperature 97.81 [degF] Darell Watts MD Work Phone: [employer] 03-18-2022 15:37-0400 Body weight 82.1 kg Darell Watts MD Work Phone: [employer] 02-03-2022 21:40-0400 Body height 162.6 cm [facility] [employer] 02-03-2022 21:40-0400 Body mass index (BMI) [Ratio] 31.07 kg/m2 [facility] [employer] 02-03-2022 21:40-0400 Body weight 82.1 kg [facility] [employer] 01-21-2022 15:10-0400 Body temperature 97.59 [degF] Darell Watts MD Work Phone: [employer] 01-21-2022 15:10-0400 Diastolic blood pressure 79 mm[Hg] Darell Watts MD Work Phone: [employer] 01-21-2022 15:10-0400 Heart rate 60 /min Darell Watts MD Work Phone: [employer] 01-21-2022 15:10-0400 Respiratory rate 16 /min Darell Watts MD Work Phone: [employer] 01-21-2022 15:10-0400 SaO2% (BldA) [Mass fraction] 94 % Darell Watts MD Work Phone: [employer] 01-21-2022 15:10-0400 Systolic blood pressure 140 mm[Hg] Darell Watts MD Work Phone: [facility] [employer] 12-27-2021 12:45-0400 SaO2% (BldA) [Mass fraction] 98 % Jewel Valentin MD Work Phone: [facility] [employer] 12-27-2021 12:30-0400 Diastolic blood pressure 83 mm[Hg] Jewel Valentin MD Work Phone: [facility] [employer] 12-27-2021 12:30-0400 Systolic blood pressure 126 mm[Hg] Jewel Valentin MD Work Phone: [facility] [employer] 12-27-2021 08:22-0400 Body mass index (BMI) [Ratio] 32.42 kg/m2 Jewel Valentin MD Work Phone: [facility] [employer] 12-27-2021 08:22-0400 Body temperature 97 [degF] Jewel Valentin MD Work Phone: [facility] [employer] 12-27-2021 08:22-0400 Body weight 83.01 kg Jewel Valentin MD Work Phone: [facility] [employer] 12-27-2021 08:22-0400 Heart rate 60 /min Jewel Valentin MD Work Phone: [facility] [employer] 12-27-2021 08:22-0400 Respiratory rate 18 /min Jewel Valentin MD Work Phone: [facility] 11-26-2021 14:30-0400 Diastolic blood pressure 50 mm[Hg] Darell Watts MD Work Phone: [facility] [employer] 11-26-2021 14:30-0400 Heart rate 55 /min Darell Watts MD Work Phone: [facility] [employer] [employer] 11-26-2021 14:30-0400 Respiratory rate 16 /min Darell Watts MD Work Phone: [facility] [employer] 11-26-2021 14:30-0400 SaO2% (BldA) [Mass fraction] 91 % Darell Watts MD Work Phone: [employer] 11-26-2021 14:30-0400 Systolic blood pressure 148 mm[Hg] Darell Watts MD Work Phone: [employer] 11-26-2021 13:53-0400 Body temperature 97.59 [degF] Darell Watts MD Work Phone: [employer] 11-26-2021 13:00-0400 Body height 162.6 cm Darell Watts MD Work Phone: [employer] 11-26-2021 13:00-0400 Body mass index (BMI) [Ratio] 31.41 kg/m2 Darell Watts MD Work Phone: [employer] 11-26-2021 13:00-0400 Body weight 83.01 kg Darell Watts MD Work Phone: [employer] 08-15-2021 13:54-0500 SaO2% (BldA) [Mass fraction] 92 % Han Uriberov DO Work Phone: [employer] 08-15-2021 13:53-0500 Diastolic blood pressure 61 mm[Hg] Han Bobrov DO Work Phone: [employer] 08-15-2021 13:53-0500 Heart rate 70 /min Han Bobrov DO Work Phone: [employer] 08-15-2021 13:53-0500 Respiratory rate 20 /min Han Bobrov DO Work Phone: [employer] 08-15-2021 13:53-0500 Systolic blood pressure 172 mm[Hg] Han Bobrov DO Work Phone: [employer] 08-15-2021 08:55-0500 Body mass index (BMI) [Ratio] 31.93 kg/m2 Han Bobrov DO Work Phone: [employer] 08-15-2021 08:55-0500 Body weight 84.37 kg Han Uriberov DO Work Phone: [employer] 08-14-2021 07:22-0500 Body temperature 98.1 [degF] Han Kathleen DO Work Phone: [employer] 02-11-2021 07:06-0400 Body temperature 97.59 [degF] Carlos Mitchell MD Work Phone: [employer] Work Phone: 02-11-2021 07:06-0400 Diastolic blood pressure 74 mm[Hg] Carlos Mitchell MD Work Phone: [employer] Work Phone: 02-11-2021 07:06-0400 Heart rate 59 /min Carlos Mitchell MD Work Phone: [employer] Work Phone: 02-11-2021 07:06-0400 Respiratory rate 16 /min Carlos Mitchell MD Work Phone: [employer] Work Phone: 02-11-2021 07:06-0400 SaO2% (BldA) [Mass fraction] 95 % Carlos Mitchell MD Work Phone: [employer] Work Phone: 02-11-2021 07:06-0400 Systolic blood pressure 141 mm[Hg] Carlos Mitchell MD Work Phone: [employer] Work Phone: 02-11-2021 03:15-0400 Body mass index (BMI) [Ratio] 34.93 kg/m2 Carlos Mitchell MD Work Phone: [employer] Work Phone: 02-11-2021 03:15-0400 Body weight 92.3 kg Carlos Mitchell MD Work Phone: [employer] Work Phone: 02-08-2021 11:32-0400 Body height 162.6 cm Carlos Mitchell MD Work Phone: [employer] Phone: 04-30-2020 12:01-0400 BP Diastolic 52 mm[Hg] [facility] [place] [facility]-30-2020 12:01-0400 BP Systolic 102 mm[Hg] [facility] [place] 04-30-2020 11:03-0400 Pulse (Heart Rate) 63 /min [facility] [place] 04-30-2020 11:03-0400 Pulse Oximetry 100 % [facility] [place] 04-30-2020 01:33-0400 BMI (Body Mass Index) 32.95 kg/m2 [facility] [place] 04-30-2020 01:33-0400 Body Temperature 97.9 [degF] [facility] [place] 04-30-2020 01:33-0400 Body weight 89.81 kg [facility] [place] 04-30-2020 01:33-0400 Height 165.1 cm Deyvi [facility] , [place] 04-30-2020 01:33-0400 Respiratory Rate 18 /min [facility] [place] 04-28-2020 13:16-0400 BP Diastolic 61 mm[Hg] [facility] [place] 04-28-2020 13:16-0400 BP Systolic 130 mm[Hg] [facility] [place] 04-28-2020 13:16-0400 Pulse Oximetry 96 % [facility] [place] 04-28-2020 10:14-0400 BMI (Body Mass Index) 35.07 kg/m2 [facility] [place] 04-28-2020 10:14-0400 Body Temperature 98.4 [degF] Benjamin Oseguera [facility], [place] 04-28-2020 10:14-0400 Body weight 89.81 kg [facility], [place] 04-28-2020 10:14-0400 Pulse (Heart Rate) 59 /min Benjamin Arnoldzpamary Donovan [facility] [place], [place] 04-28-2020 10:14-0400 Respiratory Rate 16 /min Benjamin Arnoldztamir [facility] [place], [place] 11-24-2019 07:56-0400 Body Temperature 97 [degF] Armand Beaver [facility], [place] 11-24-2019 07:56-0400 BP Diastolic 62 mm[Hg] [facility] , [place] 11-24-2019 07:56-0400 BP Systolic 113 mm[Hg] [facility] , [place] 11-24-2019 07:56-0400 Pulse (Heart Rate) 55 /min [facility], [place] 11-24-2019 07:56-0400 Pulse Oximetry 97 % Armand Sd [facility] , [place] 11-24-2019 07:56-0400 Respiratory Rate 16 /min [facility], [place] 11-24-2019 03:00-0400 BMI (Body Mass Index) 34.54 kg/m2 [facility], [place] 11-24-2019 03:00-0400 Body weight 88.45 kg [facility] , [place] 11-24-2019 03:00-0400 Height 160 cm [facility] [place] 11-24-2019 01:06-0400 Respiratory rate NOT REPORTED [facility] Sd [facility] [place] 11-23-2019 22:10-0400 BP Diastolic 56 mm[Hg] [facility] , [place] 11-23-2019 22:10-0400 BP Systolic 123 mm[Hg] [facility] , [place] 11-23-2019 22:10-0400 Pulse (Heart Rate) 62 /min [facility], [place] 11-23-2019 22:10-0400 Pulse Oximetry 96 % [facility] , [place] 11-23-2019 22:10-0400 Respiratory Rate 16 /min [facility], [place] 11-23-2019 19:50-0400 Body Temperature 98.1 [degF] [facility], [place] 10-06-2019 10:45-0500 BP Diastolic 67 mm[Hg] [employer] , [place] 10-06-2019 10:45-0500 BP Systolic 132 mm[Hg] [facility] [employer] , [place] 10-06-2019 10:45-0500 Pulse (Heart Rate) 62 /min [facility] [employer], [place] 10-06-2019 09:49-0500 Body Temperature 97.5 [degF] [facility] [employer], [place] 10-06-2019 09:49-0500 Respiratory Rate 18 /min [facility] [employer], [place] 09-28-2019 12:12-0500 BP Diastolic 73 mm[Hg] [employer] [facility] [employer] Phone: 09-28-2019 12:12-0500 BP Systolic 113 mm[Hg] [employer] [facility] [employer] Phone: 09-28-2019 12:12-0500 Pulse (Heart Rate) 62 /min [facility] Schedule [employer] Phone: 09-28-2019 10:53-0500 Body Temperature 97.81 [degF] [employer] Phone: 09-28-2019 10:53-0500 Respiratory Rate 18 /min [facility] Schedule [employer] Phone: Encounters Encounter Date Encounter Type Care Provider Facility Start: 01-06-2024 End: 01-06-2024 ambulatory PAT Jones [facility] Start: 11-05-2023 End: 11-05-2023 ambulatory SELAM RIOS [facility] Start: 10-26-2023 End: 11-04-2023 Emergency department patient visit TULIO CHAMPION [facility] Start: 10-26-2023 End: 11-04-2023 Evaluation and management of inpatient MANPREET KNIGHT [facility] Start: 10-26-2023 End: 10-26-2023 ambulatory SHU MANSFIELD [facility] Start: 10-25-2023 End: 10-26-2023 Emergency department patient visit TULIO CHAMPION [facility] Start: 09-25-2023 End: 09-25-2023 ambulatory SHU L [facility] Start: 09-25-2023 End: 09-26-2023 ambulatory [facility] Start: 09-23-2023 End: 09-24-2023 Emergency department patient visit SHU MANSFIELD [facility] Start: 08-31-2023 End: 09-01-2023 ambulatory SHOSHANA HANCOCK [facility] Start: 08-19-2023 End: 08-19-2023 ambulatory TAMIKO Edgard KAYCARMELA [facility] Start: 08-17-2023 End: 08-18-2023 Emergency department patient visit OTONEIL LEE [facility] Start: 08-06-2023 End: 08-07-2023 ambulatory [facility] Start: 08-04-2023 End: 08-05-2023 [facility] Start: 07-17-2023 End: 07-18-2023 ambulatory MIROSLAVA TREVINOIN TOM [facility] Start: 05-06-2023 End: 05-07-2023 [facility]ulatory [facility] Start: 05-06-2023 End: 05-06-2023 Subsequent hospital visit by physician Justyna Valderrama COMMERCIAL HVAC SERVICE TECHNICIAN - [employer] Work Phone: [facility] Start: 04-29-2023 End: 04-30-2023 ambulatory MADAI Toledoy [facility] Start: 04-21-2023 End: 04-22-2023 [facility] Start: 04-15-2023 End: 04-16-2023 [facility] Start: 04-13-2023 Emergency department patient visit JUSTYNA VALDERRAMA [facility] Start: 04-13-2023 End: 04-13-2023 ambulatory JUSTYNA KOCHER [facility] Start: 04-10-2023 End: 04-11-2023 ambulatory [facility] Start: 04-03-2023 End: 04-04-2023 ambulatory [facility] Start: 04-01-2023 End: 04-01-2023 Emergency department patient visit JEWEL DAWSON [facility] Start: 04-01-2023 End: 04-01-2023 Emergency department patient visit Jewel Valentin MD Work Phone: [facility] ED Comment on above: Back strain, initial encounter (Primary Dx); Rib pain Start: 03-30-2023 End: 03-31-2023 ambulatory [facility] Start: 03-26-2023 End: 03-27-2023 ambulatory LIBBY [facility] Start: 03-04-2023 End: 03-05-2023 ambulatory [facility] Start: 03-04-2023 End: 03-04-2023 Subsequent hospital visit by physician Justyna Valderrama APRN - NEWSPAPER COPY EDITOR Work Phone: [employer] [facility] Start: 02-23-2023 End: 02-25-2023 [facility]: 02-23-[facility]23 End: 02-23-2023 ambulatory [facility] Start: 02-06-2023 End: 02-07-2023 ambulatory [facility] Start: 01-21-2023 End: 01-22-2023 ambulatory [facility] Start: 01-21-2023 End: 01-21-2023 Subsequent hospital visit by physician Justyna Valderrama APRN - NEWSPAPER COPY EDITOR Work Phone: [employer] [facility] Start: 01-10-2023 End: 01-16-2023 Evaluation and management of inpatient JUSTYNA Krysten VALDERRAMA [facility] Start: 01-10-2023 End: 01-16-2023 Evaluation and management of inpatient Benjamin Araya MD Work Phone: [employer]urg Comment on above: Fall, initial encoun ter (Primary Dx); Acute cystitis without hematuria; Encephalopathy; E. coli UTI Start: 01-10-2023 End: 01-10-2023 Emergency department patient visit [facility] Start: 01-09-2023 End: 01-10-2023 ambulatory [place] Start: 12-29-2022 End: 01-01-2023 ambulatory [facility] Start: 12-29-2022 End: 12-29-2022 Subsequent hospital visit by physician Justyna Valderrama COMMERCIAL HVAC SERVICE TECHNICIAN [employer] Work Phone: [facility] Comment on above: Urinary tract infect ion without hematuria, site unspecified; Chronic midline low back pain without sciatica Start: 12-18-2022 End: 12-18-2022 Subsequent hospital visit by physician Justyna Valderrama [employer] Work Phone: [facility] Start: 12-01-2022 End: 12-01-2022 Subsequent hospital visit by physician Justyna Valderrama [employer] Work Phone: [facility] Start: 11-29-2022 End: 11-29-2022 Emergency department patient visit Carlos Mitchell MD Work Phone: [facility] ED Comment on above: Hypomagnesemia (Prim nat Dx) Start: 11-29-2022 End: 11-29-2022 Subsequent hospital visit by physician Justyna Valderrama COMMERCIAL HVAC SERVICE TECHNICIAN [employer] Work Phone: [facility] Start: 11-28-2022 End: 11-28-2022 Subsequent hospital visit by physician Justyna Valderrama [employer] Work Phone: [facility] Start: 11-18-2022 End: 11-25-2022 Evaluation and management of inpatient Abner Gutierrez Work Phone: [facility] Comment on above: Acute kidney injury (HCC) (Primary Dx); Acute cystitis without hematuria; Dehydration; Bipolar disorder with depression (HCC); Cirrhosis of liver without ascites, unspecified hepatic cirrhosis type (HCC) Start: 11-14-2022 End: 11-14-2022 Subsequent hospital visit by physician Justyna Rico CNP Work Phone: [facility] Start: 11-11-2022 End: 11-11-2022 Subsequent hospital visit by physician Justyna Valderrama APRN - NEWSPAPER COPY EDITOR Work Phone: [facility] Start: 11-05-2022 End: 11-05-2022 Subsequent hospital visit by physician Justyna Valderrama APRN - NEWSPAPER COPY EDITOR Work Phone: [facility] Start: 10-04-2022 End: 10-17-2022 Evaluation and management of inpatient Benjamin Valenzuela MD Work Phone: [address] Ortho/Med Surg Comment on above: Closed compression f racture of L3 vertebra, initial encounter (HCC) (Primary Dx); Fall from standing, initial encounter Start: 10-03-2022 End: 10-04-2022 Emergency department patient visit Sean Vogt MD [facility] ED Comment on above: Acute bilateral back pain, unspecified back location (Primary Dx); Closed compression fracture of L3 lumbar vertebra, initial encounter (HCC) Start: 09-06-2022 End: 09-11-2022 Evaluation and management of inpatient Zamzam Zhu MD [facility] Comment on above: Hepatic encephalopat hy (Primary Dx); Hyperammonemia (HCC); Hypomagnesemia; Acute pyelonephritis; Septicemia (HCC) Start: 08-21-2022 End: 08-21-2022 Subsequent hospital visit by physician Justyna Rico CNP Work Phone: [facility] Laboratory Start: 08-20-2022 End: 08-20-2022 Subsequent hospital visit by physician Justyna Valderrama APRN - NEWSPAPER COPY EDITOR Work Phone: [facility] Laboratory Start: 05-01-2022 End: 05-03-2022 Subsequent hospital visit by physician [facility] Ultrasound Room 2 At [facility] Laboratory Comment on above: Other cirrhosis of l iver (HCC) Start: 03-18-2022 End: 03-18-2022 Subsequent hospital visit by physician Darell Watts MD Work Phone: [facility] OR Start: 02-20-2022 End: 02-20-2022 Subsequent hospital visit by physician [facility] Diabetes Education Room [facility] Diabetic Education Start: 02-03-2022 End: 02-03-2022 Subsequent hospital visit by physician [facility] Sleep Rm 1 [facility] Sleep Center Comment on above: ALAN (obstructive sle ep apnea) Start: 01-21-2022 End: 01-21-2022 Subsequent hospital visit by physician Darell Watts MD Work Phone: [facility] OR Start: 01-21-2022 End: 01-21-2022 Subsequent hospital visit by physician [facility] Pulmonary Function Room [facility] PFT Comment on above: Arrived Start: 12-31-2021 End: 01-02-2022 Patient encounter status [facility] Ultrasound Start: 12-31-2021 End: 01-02-2022 Subsequent hospital visit by physician [facility] Ultrasound Room 2 At [facility] Ultrasound Comment on above: Hepatic cirrhosis, u nspecified hepatic cirrhosis type, unspecified whether ascites present (HCC); Fatty liver; Type 2 diabetes mellitus without complication, unspecified whether jail insulin use (HCC); Esophageal varices without bleeding, unspecified esophageal varices type (HCC); Immunity status testing; 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) Other screening mamm ogram Start: 12-27-2021 End: 12-27-2021 Emergency department patient visit Jewel Valentin MD Work Phone: [facility] ED Comment on above: Contusion of left hi p, initial encounter (Primary Dx); Contusion of left upper arm, initial encounter; Fall, initial encounter Start: 12-25-2021 End: 12-25-2021 Subsequent [facility] Sleep Center Comment on above: ALAN (obstructive sle ep apnea) Start: 11-26-2021 End: 11-26-2021 Subsequent hospital visit by physician Darell Watts MD Work Phone: [facility] OR Start: 11-13-2021 End: 11-13-2021 aleksandar HUYNH Facility:[facility] Start: 08-14-2021 End: 08-15-2021 Emergency department patient visit Han Kathleen DO Work Phone: [facility] ED Comment on above: Cognitive change (Pr imary Dx); Chest pain, unspecified type; Transient confusion Start: 07-09-2021 End: 07-09-2021 ambulatory Tony Wallace MD Facility:[facility] Start: 07-09-2021 End: 07-10-2021 ambulatory [facility] Facility:[facility] Start: 07-08-2021 End: 07-09-2021 ambulatory [facility] Facility:[facility] Start: 06-24-2021 End: 06-24-2021 Subsequent hospital visit by physician [facility] Echo Room [facility] Echocardiography Comment on above: Dyspnea on exertion Start: 05-23-2021 End: 05-24-2021 ambulatory Tony Wallace MD Facility:[facility] Start: 05-15-2021 End: 05-15-2021 Subsequent hospital visit by physician Justyna Valderrama COMMERCIAL HVAC SERVICE TECHNICIAN - NEWSPAPER COPY EDITOR Work Phone: [facility] Laboratory Comment on above: Acute cystitis with hematuria Start: 04-19-2021 End: 04-19-2021 Subsequent hospital visit by physician Justyna Valderrama COMMERCIAL HVAC SERVICE TECHNICIAN - NEWSPAPER COPY EDITOR Work Phone: [facility] Laboratory Comment on above: Stage 3a chronic kid manuel disease (HCC); Hyperuricemia; Essential hypertension; Nephrolithiasis Type 2 diabetes ap itus with other specified complication, with long-term current use of insulin (HCC); Essential hypertension Start: 04-09-2021 End: 04-11-2021 Subsequent hospital visit by physician [facility] Cat Scan Room [facility] CT Scan Comment on above: Personal history of nicotine dependence Start: 02-07-2021 End: 02-11-2021 Evaluation and management of inpatient Carlos Mitchell MD Work Phone: [facility] Comment on above: Complicated UTI (uri nary tract infection) (Primary Dx); Altered mental status, unspecified altered mental status type; Repeated falls Start: 12-03-2020 End: 12-03-2020 Subsequent hospital visit by physician Mukesh Castanon COMMERCIAL HVAC SERVICE TECHNICIAN - NEWSPAPER COPY EDITOR Work Phone: [facility] Laboratory Comment on above: Iron deficiency anem ia, unspecified iron deficiency anemia type Type 2 diabetes ap itus with other specified complication, with long-term current use of insulin (HCC) Start: 11-23-2020 End: 11-23-2020 Patient encounter procedure Viviane Bardales Work Phone: [facility] Work Phone: Start: 09-19-2020 End: 09-21-2020 Subsequent hospital visit by physician Ronnie Ultrasound Room [facility] Ultrasound Comment on above: CKD (chronic kidney disease) stage 3, GFR 30-59 ml/min; Nephrolithiasis Start: 07-09-2020 End: 07-09-2020 Subsequent hospital visit by physician Mukesh Castanon [facility] Laboratory Comment on above: Iron deficiency anem ia, unspecified iron deficiency anemia type; Intestinal malabsorption, unspecified type Start: 06-06-2020 End: 06-06-2020 Subsequent hospital visit by physician [facility]ynh [facility] Start: 05-02-2020 End: 05-02-2020 Subsequent hospital visit by physician Hall[facility] Huynh [facility] Start: 04-30-2020 End: 04-30-2020 Emergency department patient visit Deyvi Sykes Work Phone: [facility] ED Comment on above: Generalized weakness (Primary Dx) Start: 04-28-2020 End: 04-28-2020 Emergency department patient visit Benjamin Oseguera [facility] ED Comment on above: Closed 2-part displa chidi fracture of surgical neck of right humerus, initial encounter (Primary Dx); Injury of head, initial encounter; Closed fracture of nasal bone, initial encounter Start: 02-01-2020 End: 02-01-2020 Subsequent hospital visit by physician Ronnie Pulmonary Function Room [facility] PFT Comment on above: ABILEY (dyspnea on exer tion) Start: 02-01-2020 End: 02-03-2020 Subsequent hospital visit by physician Ronnie Navarrete [facility] Mammography Comment on above: Postmenopausal NAFLD (nonalcoholic fatty liver disease) Personal history of tobacco use Start: 01-30-2020 End: 02-03-2020 Subsequent hospital visit by physician Ronnie Covid19 Pat Screening Schedule [facility] PRE ADMIT Start: 01-27-2020 End: 01-27-2020 Subsequent hospital visit by physician Ronnie Lab Drawing Room [facility] Laboratory Comment on above: Type 2 diabetes ap itus with other specified complication, with long-term current use of insulin (HCC); NAFLD (nonalcoholic fatty liver disease) Start: 11-24-2019 End: 11-24-2019 Emergency department patient visit Armand Beaver Work Phone: [facility] Ortho/Med Surg Comment on above: Closed fracture of s pinous process of cervical vertebra, initial encounter (HCC) (Primary Dx); Fall at home, initial encounter Start: 11-23-2019 End: 11-23-2019 Emergency department patient visit Tony Crowder Work Phone: [facility] ED Comment on above: Closed nondisplaced fracture of fourth cervical vertebra, unspecified fracture morphology, initial encounter (HCC) (Primary Dx) Start: 10-06-2019 End: 10-06-2019 Subsequent hospital visit by physician [facility] Med Onc Room 8 Schedule [facility] MED ONC Comment on above: Intestinal malabsorp tion, unspecified type (Primary Dx); Other iron deficiency anemia Start: 09-28-2019 End: 09-28-2019 Subsequent hospital visit by physician Meenakshi Schedule [facility] MED ONC Comment on above: Intestinal malabsorp tion, unspecified type (Primary Dx); Other iron deficiency anemia Start: 09-12-2019 End: 09-12-2019 Subsequent hospital visit by physician Hallie Rico CNP Work Phone: [facility] Laboratory Comment on above: Other iron deficienc y anemia Start: 06-28-2019 End: 06-28-2019 Subsequent hospital visit by physician Mukesh Castanon [facility] Laboratory Comment on above: Stage 3 chronic kidn ey disease (HCC); History of anemia; Type 2 diabetes mellitus with other specified complication, with long-term current use of insulin (HCC); Essential hypertension Procedures Date Procedure Procedure Detail Performing Clinician Start: 04-01-2023 Ecg routine ecg w/le ast 12 lds w/i&r Jewel Valentin MD Work Phone: Start: 04-01-2023 Ct thorax w/o contra st material Jewel Valentin MD Work Phone: Start: 04-01-2023 Ct cervical spine w/ o contrast material Jewel Valentin MD Work Phone: Start: 04-01-2023 Ct head/brain w/o co ntrast material Jewel Valentin MD Work Phone: Start: 04-01-2023 Comprehensive metabo lic panel Jewel Valentin MD Work Phone: Start: 03-04-2023 Basic metabolic pane l calcium total Justyna L Jannie COMMERCIAL HVAC SERVICE TECHNICIAN - NEWSPAPER COPY EDITOR Work Phone: Start: 01-21-2023 Hemoglobin glycosylated a1c Miroslava Victor MD Work Phone: Start: 01-16-2023 Glucose blood reagent strip King Blackwell DO Work Phone: Start: 01-15-2023 Glucose blood reagent strip King Blackwell DO Work Phone: Start: 01-15-2023 Glucose blood reagent strip King Blackwell DO Work Phone: Start: 01-15-2023 Radiologic exam ches t single view King Blackwell DO Work Phone: Start: 01-15-2023 Glucose blood reagent strip King Blackwell DO Work Phone: Start: 01-15-2023 Glucose blood reagent strip King Blackwell DO Work Phone: Start: 01-14-2023 Glucose blood reagent strip King Blackwell DO Work Phone: Start: 01-14-2023 Glucose blood reagent strip King Blackwell DO Work Phone: Start: 01-14-2023 Glucose blood reagent strip King Blackwell DO Work Phone: Start: 01-14-2023 End: 01-14-2023 Glucose blood reagent strip King Blackwell D O Work Phone: Start: 01-13-2023 Glucose blood reagent strip King Blackwell DO Work Phone: Start: 01-13-2023 Glucose blood reagent strip King Blackwell DO Work Phone: Start: 01-13-2023 Glucose blood reagent strip King Blackwell DO Work Phone: Start: 01-13-2023 Glucose blood reagent strip King Blackwell DO Work Phone: Start: 01-12-2023 Glucose blood reagent strip Dejon Lemus MD Work Phone: Start: 01-12-2023 Glucose blood reagent strip Dejon Lemus MD Work Phone: Start: 01-12-2023 End: 01-12-2023 Glucose blood reagent strip Dejon grossman MD Work Phone: Start: 01-11-2023 Glucose blood reagent strip Dejon Lemus MD Work Phone: Start: 01-11-2023 Glucose blood reagent strip Dejon Lemus MD Work Phone: Start: 01-11-2023 Glucose blood reagent strip Dejon Lemus MD Work Phone: Start: 01-11-2023 BASIC METABOLIC PANE L W/ REFLEX TO MG FOR LOW K Tamiko Palafox APRN - CHIEF TALENT OFFICER Work Phone: Start: 01-11-2023 End: 01-11-2023 Blood count complete auto&auto difrntl wbc Tamiko Palafox COMMERCIAL HVAC SERVICE TECHNICIAN - CHIEF TALENT OFFICER Work Phone: Start: 01-11-2023 Ecg routine ecg w/le ast 12 lds i&r only King Blackwell DO Work Phone: Start: 9 End: 01-11-2023 Assay of troponin quantitative Sarah Marroquin MD Work Phone: Start: 01-11-2023 Intermittent pulse oximetry Tamiko Palafox APRN - CHIEF TALENT OFFICER Work Phone: Start: 01-10-2023 Ecg routine ecg w/le ast 12 lds w/i&r Gina Stone DO Work Phone: Start: 01-10-2023 Gluc bld gluc mntr d ev cleared fda spec home use Gina Stone DO Work Phone: Start: 01-10-2023 Ct head/brain w/o co ntrast material Gina Stone DO Work Phone: Start: 01-10-2023 CALCIUM, IONIC (POC) Mi paula Araya MD Work Phone: Start: 01-10-2023 CREATININE W/GFR POI NT OF CARE Benjamin Araya MD Work Phone: Start: 01-10-2023 ELECTROLYTES PLUS Scot barron Araya MD Work Phone: Start: 01-10-2023 Gluc bld gluc mntr d ev cleared fda spec home use Benjamin Araya MD Work Phone: Start: 01-10-2023 LACTIC ACID,POINT OF CARE Benjamin Araya MD Work Phone: Start: 01-10-2023 VENOUS BLOOD GAS, PO INT OF CARE Benjamin Araya MD Work Phone: Start: 01-10-2023 Mri spinal canal cer vical w/o contrast matrl Daniel Sherlyn COMMERCIAL HVAC SERVICE TECHNICIAN - NEWSPAPER COPY EDITOR Work Phone: Start: 01-10-2023 Culture bacterial quanttative colony count urine Gina Stone DO Work Phone: Start: 01-10-2023 Radiologic examinati on knee 3 views Gina Stone DO Work Phone: Start: 01-10-2023 CT THORACIC SPINE TR AUMA RECONSTRUCTION Gina Stone DO Work Phone: Start: 01-10-2023 CT LUMBAR SPINE TRAU MA RECONSTRUCTION Gina Stone DO Work Phone: Start: 01-10-2023 Basic metabolic pane l calcium total Gina Stone DO Work Phone: Start: 12-29-2022 C-reactive protein Zuba ir Ahammad DO Work Phone: Start: 12-29-2022 Culture bacterial bl ood aerobic w/id isolates Sosa Ahammad DO Work Phone: Start: 12-29-2022 Sedimentation rate r bc automated Sosa Ahammad DO Work Phone: Start: 12-29-2022 CULTURE, BLOOD 1 Sosazac Echolsd DO Work Phone: Start: 12-18-2022 Urinalysis microscopic only Justyna Kocher [facility] Work Phone: Start: 12-18-2022 Urnls dip stick/tabl et rgnt auto w/o microscopy Justyna Valderrama [facility] Work Phone: Start: 12-01-2022 Assay of magnesium Miroslava Victor MD Work Phone: Start: 11-29-2022 Comprehensive metabo lic panel Carlos Mitchell MD Work Phone: Start: 11-29-2022 Assay of magnesium Winsome manuel Johnson Ilia [facility] Work Phone: Start: 11-28-2022 Basic metabolic pane l calcium total Sosa Archibaldmmad DO Work Phone: Start: 11-25-2022 COVID-19, RAPID Sondra Guillory [facility] Work Phone: Start: 11-25-2022 GLUCOSE, WHOLE BLOOD St car Crespo MD Work Phone: Start: 11-25-2022 GLUCOSE, WHOLE BLOOD St car Crespo MD Work Phone: Start: 11-25-2022 Blood count complete auto&auto difrntl wbc Sondra Guillory [facility] Work Phone: Start: 11-24-2022 GLUCOSE, WHOLE BLOOD St car Crespo MD Work Phone: Start: 11-24-2022 GLUCOSE, WHOLE BLOOD St car Crespo MD Work Phone: Start: 11-24-2022 GLUCOSE, WHOLE BLOOD St car Crespo MD Work Phone: Start: 11-24-2022 GLUCOSE, WHOLE BLOOD St car Crespo MD Work Phone: Start: 11-24-2022 Blood count complete auto&auto difrntl wbc Sondra WeaverJackyChristal COMMERCIAL HVAC SERVICE TECHNICIAN - NEWSPAPER COPY EDITOR Work Phone: Start: 11-23-2022 GLUCOSE, WHOLE BLOOD St car Crespo MD Work Phone: Start: 11-23-2022 GLUCOSE, WHOLE BLOOD St car Crespo MD Work Phone: Start: 11-23-2022 GLUCOSE, WHOLE BLOOD St car Crespo MD Work Phone: Start: 11-23-2022 GLUCOSE, WHOLE BLOOD St car Crespo MD Work Phone: Start: 11-23-2022 Blood count complete auto&auto difrntl wbc Eren Park MD Work Phone: Start: 11-23-2022 IMMATURE PLATELET FRACTION Eren Park MD Work Phone: Start: 11-22-2022 GLUCOSE, WHOLE BLOOD St car Crespo MD Work Phone: Start: 11-22-2022 GLUCOSE, WHOLE BLOOD St acr Crespo MD Work Phone: Start: 11-22-2022 GLUCOSE, WHOLE BLOOD St car Crespo MD Work Phone: Start: 11-22-2022 GLUCOSE, WHOLE BLOOD St car Crespo MD Work Phone: Start: 11-22-2022 Assay of magnesium Pierce E Hemmelgarn DO Work Phone: Start: 11-22-2022 End: 11-22-2022 Rhythm ecg 1-3 leads w/interpretation & report Unknown Provider Result Start: 11-21-2022 GLUCOSE, WHOLE BLOOD St car Crespo MD Work Phone: Start: 11-21-2022 GLUCOSE, WHOLE BLOOD St car Crespo MD Work Phone: Start: 11-21-2022 GLUCOSE, WHOLE BLOOD St car Crespo MD Work Phone: Start: 11-21-2022 GLUCOSE, WHOLE BLOOD St car Crespo MD Work Phone: Start: 11-21-2022 End: 11-22-2022 Rhythm ecg 1-3 leads w/interpretation & report Unknown Provider Result Start: 11-21-2022 Assay of magnesium Pachecoi sharona Park MD Work Phone: Start: 11-20-2022 GLUCOSE, WHOLE BLOOD St car Crespo MD Work Phone: Start: 11-20-2022 End: 11-21-2022 Ecg routine ecg w/least 12 lds i&r only Libby Crespo MD Work Phone: Start: 11-20-2022 Assay of magnesium Cesar Crespo MD Work Phone: Start: 11-20-2022 GLUCOSE, WHOLE BLOOD St car Crespo MD Work Phone: Start: 11-20-2022 GLUCOSE, WHOLE BLOOD St car Crespo MD Work Phone: Start: 11-20-2022 SURGICAL PATHOLOGY REPORT Libby Crespo MD Work Phone: Start: 11-20-2022 Assay of ferritin Nik Crespo MD Work Phone: Start: 11-20-2022 IMMATURE PLATELET FRACTION Eren Park MD Work Phone: Start: 11-20-[address]22 VITAMIN B12 & FOLATE St car Crespo MD Work Phone: Start: 11-20-2022 Rhythm ecg 1-3 leads w/interpretation & report Unknown Provider Result Start: 11-19-2022 GLUCOSE, WHOLE BLOOD St car Crespo MD Work Phone: Start: 11-19-2022 GLUCOSE, WHOLE BLOOD St car Crespo MD Work Phone: Start: 11-19-2022 Rhythm ecg 1-3 leads w/interpretation & report Unknown Provider Result Start: 11-19-2022 GLUCOSE, WHOLE BLOOD St car Crespo MD Work Phone: Start: 11-19-2022 Us retroperitoneal r eal time w/image complete Pierce E Hemmelgarn DO Work Phone: Start: 11-19-2022 GLUCOSE, WHOLE BLOOD St car Crespo MD Work Phone: Start: 11-19-2022 Rhythm ecg 1-3 leads w/interpretation & report Unknown Provider Result Start: 11-19-2022 Blood count complete auto&auto difrntl wbc Eren Park MD Work Phone: Start: 11-19-2022 Rhythm ecg 1-3 leads w/interpretation & report Unknown Provider Result Start: 11-18-2022 Culture bacterial quanttative colony count urine Abner Andmarietta DO Work Phone: Start: 11-18-2022 Urnls dip stick/tabl et rgnt auto w/o microscopy Abner Andmarietta DO Work Phone: Start: 11-18-2022 Ct head/brain w/o co ntrast material Abner Andmarietta DO Work Phone: Start: 11-18-2022 GLUCOSE, WHOLE BLOOD Ju stin Andmarietta DO Work Phone: Start: 11-18-2022 Basic metabolic pane l calcium total Abner Andmarietta DO Work Phone: Start: 11-18-2022 Blood gases any comb ination ph pco2 po2 co2 hco3 Abner Andmarietta DO Work Phone: Start: 11-18-2022 Hepatic function panel Abner Andmarietta DO Work Phone: Start: 11-18-2022 Ecg routine ecg w/le ast 12 lds i&r only Abner Andmarietta DO Work Phone: Start: 11-14-2022 Blood count complete automated Miroslava Victor MD Work Phone: Start: 11-14-2022 Hepatic function panel Miroslava Victor MD Work Phone: Start: 11-11-2022 Comprehensive metabo lic panel Miroslava Victor MD Work Phone: Start: 11-05-2022 Comprehensive metabo lic panel Miroslava Victor MD Work Phone: Start: 11-05-2022 Lipid panel Mrioslava Victor MD Work Phone: Start: 10-17-2022 Glucose blood reagent strip Aristeo Ramos DO Start: 10-17-2022 Glucose blood reagent strip Aristeo Ramos DO Start: 10-16-2022 Glucose blood reagent strip Aristeo Ramos DO Start: 10-16-2022 End: 10-16-2022 Sodium serum plasma or whole blood Jae Kuhn MD Work Phone: Start: 10-16-2022 Glucose blood reagent strip Aristeo Ramos DO Start: 10-16-2022 End: 10-16-2022 Basic metabolic panel calcium total Gissel Low DO Work Phone: Start: 10-15-2022 Glucose blood reagent strip Aristeo Ramos DO Start: 10-15-2022 Glucose blood reagent strip Aristeo Ramos DO Start: 10-15-2022 Glucose blood reagent strip Aristeo Ramos DO Start: 10-15-2022 Glucose blood reagent strip Aristeo Ramos DO Start: 10-14-2022 Glucose blood reagent strip Aristeo Ramos DO Start: 10-14-2022 Glucose blood reagent strip Aristeo Ramos DO Start: 10-14-2022 Glucose blood reagent strip Aristeo Ramos DO Start: 10-14-2022 Basic metabolic pane l calcium total Idalmis Howeu DO Work Phone: Start: 10-14-2022 Hepatic function panel Idalmis E Kuldeep DO Work Phone: Start: 10-14-2022 Glucose blood reagent strip Aristeo Ramos DO Start: 10-13-2022 Glucose blood reagent strip Aristeo Ramos DO Start: 10-13-2022 Glucose blood reagent strip Aristeo Ramos DO Start: 10-13-2022 Glucose blood reagent strip Aristeo Ramos DO Start: 10-13-2022 Glucose blood reagent strip Aristeo Ramos DO Start: 10-12-2022 Glucose blood reagent strip Aristeo Ramos DO Start: 10-12-2022 Glucose blood reagent strip Aristeo Ramos DO Start: 10-12-2022 Glucose blood reagent strip Aristeo Ramos DO Start: 10-12-2022 Glucose blood reagent strip Aristeo Ramos DO Start: 10-11-2022 Glucose blood reagent strip Aristeo Ramos DO Start: 10-11-2022 Glucose blood reagent strip Aristeo Ramos DO Start: 10-11-2022 Glucose blood reagent strip Aristeo Ramos DO Start: 10-11-2022 Glucose blood reagent strip Aristeo Ramos DO Start: 10-10-2022 Glucose blood reagent strip Aristeo Ramos DO Start: 10-10-2022 Glucose blood reagent strip Aristeo Ramos DO Start: 10-10-2022 Glucose blood reagent strip Aristeo Ramos DO Start: 10-10-2022 Glucose blood reagent strip Aristeo Ramos DO Start: 10-09-2022 Glucose blood reagent strip Aristeo Ramos DO Start: 10-09-2022 End: 10-09-2022 Assay of ammonia Shea Metcalf MD Work Phone: Start: 10-09-2022 Glucose blood reagent strip Aristeo Ramos DO Start: 10-09-2022 Glucose blood reagent strip Aristeo Ramos DO Start: 10-09-2022 Glucose blood reagent strip Aristeo Ramos DO Start: 10-09-2022 BASIC METABOLIC PANE L W/ REFLEX TO MG FOR LOW K Shea Metcalf MD Work Phone: Start: 10-09-2022 Glucose blood reagent strip Aristeo Ramos DO Start: 10-08-2022 End: 10-08-2022 Blood count hemoglobin Chris Cui MD Work Phone: Start: 10-08-2022 Glucose blood reagent strip Aristeo Ramos DO Start: 10-08-2022 Glucose blood reagent strip Aristeo Ramos DO Start: 10-08-2022 Radiologic exam ches t single view Idalmis Manuel Light DO Work Phone: Start: 10-08-2022 BASIC METABOLIC PANE L W/ REFLEX TO MG FOR LOW K Shea Metcalf MD Work Phone: Start: 10-08-2022 End: 10-08-2022 Hemoglobin glycosylated a1c Shea matson MD Work Phone: Start: 10-07-2022 Glucose blood reagent strip Aristeo Ramos DO Start: 10-07-2022 Glucose blood reagent strip Aristeo Ramos DO Start: 10-07-2022 Glucose blood reagent strip Shea Metcalf MD Work Phone: Start: 10-07-2022 Potassium serum plas ma/whole blood Ana Pottsgrove DO Work Phone: Start: 10-07-2022 Glucose blood reagent strip Shea Metcalf MD Work Phone: Start: 10-07-2022 Radex spine lumbosac ral 2/3 views Ashish Mesa PA-C Work Phone: Start: 10-07-2022 Glucose blood reagent strip Shea Metcalf MD Work Phone: Start: 10-07-2022 Basic metabolic pane l calcium total Ashish Mesa PA-C Work Phone: Start: 10-07-2022 Glucose blood reagent strip Aristeo Ramos DO Start: 10-06-2022 Glucose blood reagent strip Aristeo Ramos DO Start: 10-06-2022 Glucose blood reagent strip Aristeo Ramos DO Start: 10-06-2022 Glucose blood reagent strip Aristeo Ramos DO Start: 10-06-2022 Fluoroscopy during operation Sosa Ahammad DO Work Phone: Start: 10-06-2022 End: 10-06-2022 KYPHOPLASTY Sosa Ahammad DO Work Phone: Start: 10-06-2022 Glucose blood reagent strip Aristeo Ramos DO Start: 10-06-2022 Glucose blood reagent strip Aristeo Ramos DO Start: 10-06-2022 BASIC METABOLIC PANE L W/ REFLEX TO MG FOR LOW K Aristeo Ramos DO Start: 10-06-2022 Blood count complete auto&auto difrntl wbc Aristeo Ramos DO Start: 10-05-2022 Glucose blood reagent strip Aristeo Ramos DO Start: 10-05-2022 Glucose blood reagent strip Aristeo Ramos DO Start: 10-05-2022 Glucose blood reagent strip Aristeo Ramos DO Start: 10-05-2022 Glucose blood reagent strip Aristeo Ramos DO Start: 10-05-2022 Glucose blood reagent strip Aristeo Ramos DO Start: 10-05-2022 Assay of ammonia Meredith Kuhn MD Work Phone: Start: 10-05-2022 BASIC METABOLIC PANE L W/ REFLEX TO MG FOR LOW K Aristeo Ramos DO Start: 10-05-2022 End: 10-05-2022 Blood count complete auto&auto difrntl wbc Aristeo Ramos DO Start: 10-05-2022 Hepatic function panel Aristeo Ramos DO Start: 10-05-2022 IMMATURE PLATELET FRACTION Aristeo Ramos DO Start: 10-05-2022 Glucose blood reagent strip Aristeo Ramos DO Start: 10-04-2022 Glucose blood reagent strip Aristeo Ramos DO Start: 10-04-2022 Glucose blood reagent strip Aristeo Ramos DO Start: 10-04-2022 Mri spinal canal lum bar w/o contrast material Micheal Umana MD Work Phone: Start: 10-04-2022 Radex shoulder compl ete minimum 2 views Erci Luz MD Work Phone: Start: 10-04-2022 Glucose blood reagent strip Aristeo Ramos DO Start: 10-04-2022 BASIC METABOLIC PANE L W/ REFLEX TO MG FOR LOW K Aristeo Ramos DO Start: 10-04-2022 End: 10-04-2022 Blood count complete auto&auto difrntl wbc Aristeo Ramos DO Start: 10-03-2022 Antibody screen Sena dalton MD Start: 10-03-2022 Radiologic exam ches t single view Zamzam Correa MD Work Phone: Start: 10-03-2022 Radiologic examinati on pelvis 1/2 views Zamzam Correa MD Work Phone: Start: 10-03-2022 End: 10-03-2022 Gluc bld gluc mntr dev cleared fda spec home use Zamzam Correa MD Work Phone: Start: 10-03-2022 Blood typing serologic abo Zamzam Correa MD Work Phone: Start: 10-03-2022 Ecg routine ecg w/le ast 12 lds w/i&r Zamzam Correa MD Work Phone: Start: 10-03-2022 End: 10-03-2022 Ct cervical spine w/o contrast material Sean Vogt MD Start: 10-03-2022 Ct head/brain w/o co ntrast material Sean Vogt MD Start: 10-03-2022 Basic metabolic pane l calcium total Zamzam Correa MD Work Phone: Start: 09-11-2022 GLUCOSE, WHOLE BLOOD Montez Victor MD Work Phone: Start: 09-11-2022 GLUCOSE, WHOLE BLOOD Montez Victor MD Work Phone: Start: 09-11-2022 GLUCOSE, WHOLE BLOOD Montez Victor MD Work Phone: Start: 09-11-2022 Assay of ammonia Shirle y A [place] [employer]ERCIAL HVAC SERVICE TECHNICIAN - NEWSPAPER COPY EDITOR Work Phone: Start: 09-11-2022 Rhythm ecg 1-3 leads w/interpretation & report Unknown Provider Result Start: 09-10-2022 Rhythm ecg 1-3 leads w/interpretation & report Unknown Provider Result Start: 09-10-2022 GLUCOSE, WHOLE BLOOD Montez Victor MD Work Phone: Start: 09-10-2022 GLUCOSE, WHOLE BLOOD Montez Victor MD Work Phone: Start: 09-10-2022 Rhythm ecg 1-3 leads w/interpretation & report Unknown Provider Result Start: 09-10-2022 GLUCOSE, WHOLE BLOOD Montez Victor MD Work Phone: Start: 09-10-2022 GLUCOSE, WHOLE BLOOD Montez Victor MD Work Phone: Start: 09-10-2022 Assay of ammonia Fantasma Guillory COMMERCIAL HVAC SERVICE TECHNICIAN - NEWSPAPER COPY EDITOR Work Phone: Start: 2022 GLUCOSE, WHOLE BLOOD Montez Victor MD Work Phone: Start: 2022 GLUCOSE, WHOLE BLOOD Montez Victor MD Work Phone: Start: 2022 GLUCOSE, WHOLE BLOOD Montez Victor MD Work Phone: Start: 2022 GLUCOSE, WHOLE BLOOD Montez Victor MD Work Phone: Start: 2022 End: 2022 Rhythm ecg 1-3 leads w/interpretation & report Unknown Provider Result Start: 2022 Assay of ammonia Fantasma [place]-Christal COMMERCIAL HVAC SERVICE TECHNICIAN - NEWSPAPER COPY EDITOR Work Phone: Start: 09-08-2022 GLUCOSE, WHOLE BLOOD Montez Victor MD Work Phone: Start: 09-08-2022 GLUCOSE, WHOLE BLOOD Montez Victor MD Work Phone: Start: 09-08-2022 GLUCOSE, WHOLE BLOOD Montez Victor MD Work Phone: Start: 09-08-2022 GLUCOSE, WHOLE BLOOD Montez Victor MD Work Phone: Start: 09-08-2022 End: 2022 Rhythm ecg 1-3 leads w/interpretation & report Unknown Provider Result Start: 09-08-2022 Blood count complete auto&auto difrntl wbc Miroslava Abner Victor MD Work Phone: Start: 09-07-2022 GLUCOSE, WHOLE BLOOD Montez Victor MD Work Phone: Start: 09-07-2022 GLUCOSE, WHOLE BLOOD Montez Victor MD Work Phone: Start: 09-07-2022 GLUCOSE, WHOLE BLOOD Montez Victor MD Work Phone: Start: 09-07-2022 GLUCOSE, WHOLE BLOOD Ma rk Abner Victor MD Work Phone: Start: 09-07-2022 End: 09-07-2022 Rhythm ecg 1-3 leads w/interpretation & report Unknown Provider Result Start: 09-07-2022 Blood count complete auto&auto difrntl wbc Miroslava Victor MD Work Phone: Start: 09-07-2022 Rhythm ecg 1-3 leads w/interpretation & report Unknown Provider Result Start: 09-07-2022 Intermittent pulse oximetry Miroslava Victor MD Work Phone: Start: 09-06-2022 Assay of lactate Zamzam Zhu MD Work Phone: Start: 09-06-2022 Ct head/brain w/o co ntrast material Zamzam Zhu MD Work Phone: Start: 09-06-2022 Urnls dip stick/tabl et rgnt auto w/o microscopy Zamzam Zhu MD Work Phone: Start: 09-06-2022 Ecg routine ecg w/le ast 12 lds i&r only Zamzam Zhu MD Work Phone: Start: 09-06-2022 Radiologic exam ches t single view Zamzam Zhu MD Work Phone: Start: 09-06-2022 Blood gases any comb ination ph pco2 po2 co2 hco3 Zamzam Zhu MD Work Phone: Start: 09-06-2022 COVID-19, RAPID Zamzam Zhu MD Work Phone: Start: 09-06-2022 End: 09-06-2022 Iaadiadoo influenza Zamzam Zhu MD Work Phone: Start: 09-06-2022 End: 09-06-2022 Basic metabolic panel calcium total Zamzam Zhu MD Work Phone: Start: 09-06-2022 CULTURE, BLOOD 1 Zamzam Zhu MD Work Phone: Start: 09-06-2022 Hepatic function panel Zamzam Zhu MD Work Phone: Start: 09-06-2022 GLUCOSE, WHOLE BLOOD Pr lissette Zhu MD Work Phone: Start: 08-21-2022 Urnls dip stick/tabl et reagent auto microscopy Miroslava Victor MD Work Phone: Start: 08-20-2022 Comprehensive metabo lic panel Miroslava Victor MD Work Phone: Start: 05-01-2022 Blood count complete automated Pat Baig MD Work Phone: Start: 05-01-2022 Us abdominal real ti me w/image limited Pat Baig MD Work Phone: Start: 03-18-2022 Fluoroscopy during operation Darell Watts MD Work Phone: Start: 01-21-2022 Fluoroscopy during operation Darell Watts MD Work Phone: Start: 12-31-2021 Screening mammograph y bi 2-view breast inc cad Justyna Valderrama COMMERCIAL HVAC SERVICE TECHNICIAN - NEWSPAPER COPY EDITOR Work Phone: Start: 12-31-2021 Us abdominal real ti me w/image limited Tony Wallace MD Work Phone: Start: 12-27-2021 Urinalysis microscopic only Jewel Valentin MD Work Phone: Start: 12-27-2021 Urnls dip stick/tabl et rgnt auto w/o microscopy Jewel Valentin MD Work Phone: Start: 12-27-2021 End: 12-27-2021 Radex humerus minimum 2 views Jewel Valentin MD Work Phone: Start: 12-27-2021 Radiologic exam ches t single view Jewel Valentin MD Work Phone: Start: 12-27-2021 Drug assay valproic dipropylacetic acid total Jewel Valentin MD Work Phone: Start: 12-27-2021 IMMATURE PLATELET FRACTION Jewel Valentin MD Work Phone: Start: 12-27-2021 Prothrombin time Jeannie Valentin MD Work Phone: Start: 12-27-2021 Ecg routine ecg w/le ast 12 lds w/i&r Jewel Valentin MD Work Phone: Start: 11-26-2021 Fluoroscopy during operation Darell Watts MD Work Phone: Start: 08-15-2021 Mri brain brain stem w/o contrast material Raquel Hagen DO Work Phone: Start: 08-14-2021 Drug screen class list a Han Kathleen DO Work Phone: Start: 08-14-2021 Urnls dip stick/tabl et reagent auto microscopy Han Kathleen DO Work Phone: Start: 08-14-2021 Radiologic exam ches t single view Han Kathleen DO Work Phone: Start: 08-14-2021 Ct thorax w/contrast material Han Kathleen DO Work Phone: Start: 08-14-2021 Ct head/brain w/o co ntrast material Han Kathleen DO Work Phone: Start: 08-14-2021 BLOOD GAS, ARTERIAL Karen mia Kathleen DO Work Phone: Start: 08-14-2021 COVID-19, RAPID Kristin Kathleen DO Work Phone: Start: 08-14-2021 End: 08-14-2021 Comprehensive metabolic panel Han Kathleen DO Work Phone: Start: 08-14-2021 Drug assay valproic dipropylacetic acid total Han Kathleen DO Work Phone: Start: 08-14-2021 IMMATURE PLATELET FRACTION Han Kathleen DO Work Phone: Start: 08-14-2021 TOX SCR, BLD, ED Yaquelin Rios DO Work Phone: Start: 04-19-2021 End: 04-19-2021 Assay of blood/uric acid Madai Prado MD Work Phone: Start: 04-09-2021 CT LUNG SCREENING Mukesh Castanon COMMERCIAL HVAC SERVICE TECHNICIAN - NEWSPAPER COPY EDITOR Work Phone: Start: 02-11-2021 GLUCOSE, WHOLE BLOOD Ana Solomon MD Work Phone: Start: 02-11-2021 GLUCOSE, WHOLE BLOOD Ana Solomon MD Work Phone: Start: 02-11-2021 Blood count complete auto&auto difrntl wbc Sophie Solomon MD Work Phone: Start: 02-10-2021 GLUCOSE, WHOLE BLOOD Ana Solomon MD Work Phone: Start: 02-10-2021 GLUCOSE, WHOLE BLOOD Ana Solomon MD Work Phone: Start: 02-10-2021 GLUCOSE, WHOLE BLOOD Ana Solomon MD Work Phone: Start: 02-10-2021 GLUCOSE, WHOLE BLOOD Ana Solomon MD Work Phone: Start: 02-10-2021 Blood count complete auto&auto difrntl wbc Sophie Solomon MD Work Phone: Start: 02-10-2021 IMMATURE PLATELET FRACTION Sophie Solomon MD Work Phone: Start: 02-10-2021 Rhythm ecg 1-3 leads w/interpretation & report Unknown Provider Result Start: 02-09-2021 GLUCOSE, WHOLE BLOOD Ana Solomon MD Work Phone: Start: 02-09-2021 GLUCOSE, WHOLE BLOOD Ana Solomon MD Work Phone: Start: 02-09-2021 Blood count complete auto&auto difrntl wbc Sophie Solomon MD Work Phone: Start: 02-09-2021 IMMATURE PLATELET FRACTION Sophie Solomon MD Work Phone: Start: 02-09-2021 End: 02-09-2021 GLUCOSE, WHOLE BLOOD Sophie Velázquez Work Phone: Start: 02-09-2021 End: 02-09-2021 Rhythm ecg 1-3 leads w/interpretation & report Unknown Provider Result Start: 02-09-2021 Rhythm ecg 1-3 leads w/interpretation & report Unknown Provider Result Start: 02-08-2021 GLUCOSE, WHOLE BLOOD Ana Solomon MD Work Phone: Start: 02-08-2021 GLUCOSE, WHOLE BLOOD Ana Solomon MD Work Phone: Start: 02-08-2021 GLUCOSE, WHOLE BLOOD Ana Solomon MD Work Phone: Start: 02-08-2021 Drug assay valproic dipropylacetic acid total Sophie Solomon MD Work Phone: Start: 02-08-2021 GLUCOSE, WHOLE BLOOD Ana Solomon MD Work Phone: Start: 02-08-2021 End: 02-08-2021 Hemoglobin glycosylated a1c Sophie Solomon MD Work Phone: Start: 02-08-2021 IMMATURE PLATELET FRACTION Sophie Solomon MD Work Phone: Start: 02-08-2021 GLUCOSE, WHOLE BLOOD Ana Solomon MD Work Phone: Start: 02-07-2021 COVID-19, RAPID Carlos Mitchell MD Work Phone: Start: 02-07-2021 End: 02-07-2021 CULTURE, BLOOD 1 Carlos Mitchell MD Work Phone: Start: 02-07-2021 End: 02-07-2021 Assay of ammonia Carlos Mitchell MD Work Phone: Start: 02-07-2021 Culture bacterial quanttative colony count urine Carlos Mitchell MD Work Phone: Start: 02-07-2021 Urnls dip stick/tabl et rgnt auto w/o microscopy Carlos Mitchell MD Work Phone: Start: 02-07-2021 Radiologic exam ches t single view Carlos Mitchell MD Work Phone: Start: 02-07-2021 Ct abdomen & pelvis w/o contrast material Carlos Mitchell MD Work Phone: Start: 02-07-2021 Ct cervical spine w/ o contrast material Carlos Mitchell MD Work Phone: Start: 02-07-2021 Ct head/brain w/o co ntrast material Carlos Mitchell MD Work Phone: Start: 02-07-2021 Comprehensive metabo lic panel Carlos Mitchell MD Work Phone: Start: 12-03-2020 Urine albumin quantitative Hallie W Might COMMERCIAL HVAC SERVICE TECHNICIAN - NEWSPAPER COPY EDITOR Work Phone: Start: 12-03-2020 End: 12-03-2020 Lipid panel Hallie W Might COMMERCIAL HVAC SERVICE TECHNICIAN - NEWSPAPER COPY EDITOR Work Phone: Start: 12-03-2020 Iron binding capacity Jonh Ruelas MD Work Phone: Start: 11-23-2020 Imm. administration COVID19 [employer] Work Phone: Start: 11-23-2020 SARS-CoV-2 vaccine, 0.5ml [employer] Work Phone: Start: 09-19-2020 Us retroperitoneal r eal time w/image limited Madai K Muddada Work Phone: Start: 07-09-2020 Assay of ferritin Celeste Ruelas Work Phone: Start: 07-09-2020 Blood count complete auto&auto difrntl wbc Liza Ruelas Work Phone: Start: 07-09-2020 Iron binding capacity M kina Ruelas Work Phone: Start: 06-06-2020 Urnls dip stick/tabl et reagent auto microscopy Sophie Solomon Work Phone: Start: 05-02-2020 Assay of thyroid sti mulating hormone tsh Sophie Solomon Work Phone: Start: 05-02-2020 Blood count complete automated Sophie P Neha Work Phone: Start: 05-02-2020 Comprehensive metabo lic panel Sophie Solomon Work Phone: Start: 05-02-2020 Hemoglobin glycosylated a1c Sophie Solomon Work Phone: Start: 05-02-2020 IMMATURE PLATELET FRACTION Sophie Solomon Work Phone: Start: 05-02-2020 Lipid panel Sopihe Solomon Work Phone: Start: 04-30-2020 GLUCOSE, WHOLE BLOOD Et an E [employer] Work Phone: Start: 04-30-2020 COVID-19 Carlos Cr ismaru Work Phone: Start: 04-30-2020 Urnls dip stick/tabl et rgnt auto w/o microscopy Deyvi E [employer] Work Phone: Start: 04-30-2020 BASIC METABOLIC PANE L W/ REFLEX TO MG FOR LOW K Deyvi E [employer] Work Phone: Start: 04-30-2020 Blood count complete auto&auto difrntl wbc Deyvi E [employer] Work Phone: Start: 04-30-2020 IMMATURE PLATELET FRACTION Deyvi E [employer] Work Phone: Start: 04-28-2020 Radex shoulder compl ete minimum 2 views Benjamin Oseguera Start: 04-28-2020 Ct cervical spine w/ o contrast material Benjamin Oseguera Start: 04-28-2020 Ct maxillofacial w/o contrast material Benjamin Oseguera Start: 04-28-2020 Ct head/brain w/o co ntrast material Benjamin Oseguera Start: 02-01-2020 Dxa bone density sheryl dy 1/> sites axial skel Hallie Simon Might Work Phone: Start: 02-01-2020 Brncdilat rspse spmt ry pre&post-brncdilat admn Hallie Simon Might Work Phone: Start: 02-01-2020 Us abdominal real ti me w/image limited Hallie Simon Might Work Phone: Start: 02-01-2020 Ldct for lung ca screen Hallie Simon Might Work Phone: Start: 01-30-2020 COVID-19 Cliff Jau regui Work Phone: Start: 01-27-2020 Assay of blood/uric acid Hallie Simon Might Work Phone: Start: 01-27-2020 Blood count complete auto&auto difrntl wbc Hallie Simon Might Work Phone: Start: 01-27-2020 Comprehensive metabo lic panel Hallie Simon Might Work Phone: Start: 01-27-2020 Hemoglobin glycosylated a1c Hallie Simon Might Work Phone: Start: 11-24-2019 Radex spine cervical 2 or 3 views Demetrio Kline Work Phone: Start: 11-24-2019 Mri spinal canal cer vical w/o contrast matrl Idalmis Mathur Work Phone: Start: 11-24-2019 End: 11-24-2019 Glucose blood reagent strip Amer Sailaja-Radha Larios Work Phone: Start: 11-24-2019 Antibody screen Armand Beaver Start: 11-24-2019 Blood typing serologic abo Armand Beaver Work Phone: Start: 11-24-2019 IMMATURE PLATELET FRACTION Armand Beaver Work Phone: Start: 11-24-2019 TRAUMA PANEL Armand olguin Work Phone: Start: 11-23-2019 GLUCOSE, WHOLE BLOOD Sy ed A Vel Work Phone: Start: 11-23-2019 Radex humerus minimu m 2 views [employer] Work Phone: Start: 11-23-2019 Radiologic examinati on pelvis 1/2 views [employer] Work Phone: Start: 11-23-2019 Radiologic exam ches t single view [employer] Work Phone: Start: 11-23-2019 Ct lumbar spine w/o contrast material [employer] Work Phone: Start: 11-23-2019 Ct thoracic spine w/ o contrast material [employer] Work Phone: Start: 11-23-2019 Ct cervical spine w/ o contrast material Tony [employer] Work Phone: Start: 11-23-2019 Ct head/brain w/o co ntrast material [employer] Work Phone: Start: 09-12-2019 Comprehensive metabo lic panel Dora Sheridan MD Work Phone: Start: 06-28-2019 Urine albumin quantitative Mukesh Castanon Work Phone: Start: 06-28-2019 Assay of thyroid sti mulating hormone tsh Mukesh Castanon Work Phone: Start: 06-28-2019 VITAMIN B12 & FOLATE Rashaad Castanon Work Phone: Start: 06-28-2019 25 hydroxy includes fractions if performed Mukesh Csatanon Work Phone: Start: 06-28-2019 Assay of ferritin Mukesh Castanon Work Phone: Start: 06-28-2019 Blood count complete auto&auto difrntl wbc Mukesh Castanon Work Phone: Start: 06-28-2019 Comprehensive metabo lic panel Mukesh Castanon Work Phone: Start: 06-28-2019 Hemoglobin glycosylated a1c Mukesh Castanon Work Phone: Start: 06-28-2019 Iron binding capacity S kyle Castanon Work Phone: Start: 06-28-2019 Lipid panel Mukesh Moore Work Phone: Plan of Treatment Date Care Activity Detail Author Start: 11-22-2029 DTaP/Tdap/Td vaccine (2 - Td or Tdap) DTaP/Tdap/Td vaccine (2 - Td or Tdap) [facility] Start: 11-22-2029 DTaP/Tdap/Td vaccine (2 - Td) DTaP/Tdap/Td vaccine (2 - Td) [facility] [employer] [place], [place] Start: 04-15-2024 GFR test (Diabetes, CKD 3-4, OR last GFR 15-59) GFR test (Diabetes, CKD 3-4, OR last GFR 15-59) [facility] Start: 04-09-2024 Screening for malignant neoplasm of colon [facility] [employer] Start: 04-08-2024 Depression Monitoring Depression Monitoring [email or web address] Start: 04-01-2024 GFR test (Diabetes, CKD 3-4, OR last GFR 15-59) GFR test (Diabetes, CKD 3-4, OR last GFR 15-59) [facility] Start: 03-29-2024 End: 03-29-2024 Patient encounter procedure [employer] [place] [facility] Comment on above: 1 year follow up CKD-3-with labs Start: 03-27-2024 Hemoglobin A1c measurement A1C test (Diabetic or Prediabetic) [facility] [employer] Start: 03-25-2024 Depression Monitoring Depression Monitoring [email or web address] Start: 03-04-2024 GFR test (Diabetes, CKD 3-4, OR last GFR 15-59) GFR test (Diabetes, CKD 3-4, OR last GFR 15-59) [facility] Start: 02-24-2024 Urine screening for protein Diabetic Alb to Cr ratio (uACR) test [facility] Start: 01-22-2024 Hemoglobin A1c measurement A1C test (Diabetic or Prediabetic) [facility] Start: 01-12-2024 GFR test (Diabetes, CKD 3-4, OR last GFR 15-59) GFR test (Diabetes, CKD 3-4, OR last GFR 15-59) [facility] Start: 01-01-2024 Screening for malignant neoplasm of breast Breast cancer screen [facility] Start: 12-18-2023 Depression Monitoring Depression Monitoring [facility] Start: 11-30-2023 GFR test (Diabetes, CKD 3-4, OR last GFR 15-59) GFR test (Diabetes, CKD 3-4, OR last GFR 15-59) [facility] Start: 11-29-2023 GFR test (Diabetes, CKD 3-4, OR last GFR 15-59) GFR test (Diabetes, CKD 3-4, OR last GFR 15-59) [facility] Start: 11-26-2023 GFR test (Diabetes, CKD 3-4, OR last GFR 15-59) GFR test (Diabetes, CKD 3-4, OR last GFR 15-59) [facility] Start: 11-12-2023 GFR test (Diabetes, CKD 3-4, OR last GFR 15-59) GFR test (Diabetes, CKD 3-4, OR last GFR 15-59) [facility] Start: 11-06-2023 GFR test (Diabetes, CKD 3-4, OR last GFR 15-59) GFR test (Diabetes, CKD 3-4, OR last GFR 15-59) [facility] Start: 11-06-2023 Hemoglobin A1c measurement A1C test (Diabetic or Prediabetic) [facility] Start: 11-06-2023 Lipid panel Lipids [facility] Start: 10-17-2023 GFR test (Diabetes, CKD 3-4, OR last GFR 15-59) GFR test (Diabetes, CKD 3-4, OR last GFR 15-59) [facility] Start: 10-12-2023 End: 10-12-2023 Patient encounter procedure 10/12/2023 11:15 AM EST Office Visit [facility] [address] [address] Camilo Boyd MD [facility] [place] [address] Pulmonary Emphysema, Chronic Resp Failure; 6 mth follow up [facility] Comment on above: Pulmonary Emphysema, Chronic Resp Failur e; 6 mth follow up Start: 10-08-2023 Hemoglobin A1c measurement A1C test (Diabetic or Prediabetic) [facility] [employer] Start: 10-03-2023 GFR test (Diabetes, CKD 3-4, OR last GFR 15-59) GFR test (Diabetes, CKD 3-4, OR last GFR 15-59) [facility] [employer] Start: 09-18-2023 Depression Monitoring Depression Monitoring [facility] [employer] Start: 09-11-2023 GFR test (Diabetes, CKD 3-4, OR last GFR 15-59) GFR test (Diabetes, CKD 3-4, OR last GFR 15-59) [facility] [employer] Start: 08-20-2023 GFR test (Diabetes, CKD 3-4, OR last GFR 15-59) GFR test (Diabetes, CKD 3-4, OR last GFR 15-59) [facility] [employer] Start: 07-17-2023 Diabetic foot examination Diabetic foot exam [facility] Comment on above: Postponed from 12/12/2021 (Patient Refus ed) Start: 07-17-2023 Hepatitis C screening Hepatitis C screen [facility] Comment on above: Postponed from 1972 (Patient Refus ed) Start: 07-17-2023 Shingles vaccine (1 of 2) Shingles vaccine (1 of 2) [facility] Comment on above: Postponed from 2004 (Patient Refus ed) Start: 07-06-2023 End: 07-06-2023 Patient encounter procedure 07/06/2023 10:00 AM EST Office Visit [address] [place] [id number] Pat Baig MD [address] [place] [address] Cirrhosis [facility] Comment on above: Cirrhosis Start: 06-18-2023 Annual Wellness Visit (AWV) Annual Wellness Visit (AWV) [facility] [employer] Start: 06-17-2023 Depression Monitoring Depression Monitoring [email or web address] Start: 06-17-2023 Hemoglobin A1c measurement A1C test (Diabetic or Prediabetic) [facility] Start: 06-17-2023 Hepatitis A vaccine (1 of 2 - Risk 2-dose series) Hepatitis A vaccine (1 of 2 - Risk 2-dose series) [facility] Comment on above: Postponed from 1955 (Patient Refus ed) Postponed from 09/09 (Patient Refused) Start: 06-17-2023 Hepatitis B vaccine (1 of 3 - Risk 3-dose series) Hepatitis B vaccine (1 of 3 - Risk 3-dose series) [facility] Comment on above: Postponed from 1973 (Patient Refus ed) Postponed from 09/09 (Patient Refused) Start: 06-17-2023 End: 06-17-2023 Patient encounter procedure [facility] Comment on above: Medicare Annual Wellness Start: 06-04-2023 Diabetic retinal exam Diabetic retinal exam [facility] Start: 06-04-2023 Glaucoma screening Diabetic retinal exam [facility] Start: 05-13-2023 End: 05-13-2023 Patient encounter procedure [facility] Comment on above: 3 month f/u recurrent UTI,PVR 1 month check-pain m ed refill Start: 04-09-2023 End: 04-09-2023 Patient encounter procedure 04/09/2023 Office Visit Pulmonology Camilo Boyd MD [address] [facility] [address] [place] [address] [facility]RE[facility] Start: 04-08-2023 End: 04-08-2023 Patient encounter procedure 04/08/2023 Office Visit Primary Care Justyna Valderrama, COMMERCIAL HVAC SERVICE TECHNICIAN - NEWSPAPER COPY EDITOR [address] [place] [address] [facility] Start: 03-24-2023 End: 03-24-2023 Patient encounter procedure 03/24/2023 Office Visit Nephrology Madai Prado MD [address] [address] [facility] Start: 03-19-2023 End: 03-19-2023 Patient encounter procedure 03/19/2023 Office Visit Primary Care Justyna Valderrama, COMMERCIAL HVAC SERVICE TECHNICIAN - NEWSPAPER COPY EDITOR [address] [place] [address] [facility] [place] Start: 03-17-2023 Depression Monitoring Depression Monitoring [facility] Start: 03-17-2023 Hemoglobin A1c measurement A1C test (Diabetic or Prediabetic) [facility] Start: 03-17-2023 Influenza vaccination Flu vaccine (#1) [facility] Start: 02-05-2023 End: 02-05-2023 Patient encounter procedure 02/05/2023 Office Visit Infectious Diseases Fred Hearn MD [address] [facility] [address] [place], [place] [id number] [facility] Start: 01-28-2023 End: 01-28-2023 Telemedicine consultation with patient 01/28/2023 Telemedicine Neurosurgery Sosa Rodriguez DO [address] [facility] [address] [place] [id number] [facility] Start: 01-13-2023 End: 01-13-2023 Patient encounter procedure 01/13/2023 Appointment Radiology [facility] Start: 01-08-2023 End: 01-08-2023 Patient encounter procedure 01/08/2023 Office Visit Nephrology Pierce Payne, [address] [address] [facility] Start: 12-29-2022 End: 12-29-2022 Patient encounter procedure 12/29/2022 Office Visit Neurosurgery Sosa Rodriguez DO [address] [facility] [address] [place] [id number] [facility] Start: 12-23-2022 End: 12-23-2022 Patient encounter procedure 12/23/2022 Office Visit Nephrology Madai Prado MD [address] [address] [facility] Kidney and Hypertension Start: 12-17-2022 End: 12-17-2022 Patient encounter procedure 12/17/2022 Office Visit Primary Care Justyna Valderrama, COMMERCIAL HVAC SERVICE TECHNICIAN - NEWSPAPER COPY EDITOR [address] [place] [address] [facility] Primary [facility] [place] Start: 12-10-2022 Depression Monitoring Depression Monitoring [facility] Start: 12-10-2022 Hemoglobin A1c measurement A1C test (Diabetic or Prediabetic) [facility] Start: 12-03-2022 End: 12-03-2022 Patient encounter procedure 12/03/2022 Office Visit Neurosurgery Sosa Rodriguez, DO [address] [facility] [address] [place] [id number] [facility] Start: 11-28-2022 End: 11-22-2023 Basic metabolic 2000 panel - Serum or Plasma Basic Metabolic Panel Lab Routine Acute kidney injury (HCC) Expected: 11/28/2022, Expires: 11/22/2023 [email or web address] [facility] [employer] Work Phone: Comment on above: Expected: 11/28/2022, Expires: 4 Start: 11-28-2022 End: 11-26-2023 CBC W Auto Differential panel - Blood CBC with Auto Differential Lab Routine Acute kidney injury (HCC) Expected: 11/28/2022, Expires: 11/26/2023 [employer] Work Phone: Comment on above: Expected: 11/28/2022, Expires: 4 Start: 11-28-2022 End: 11-22-2023 Magnesium [Mass/volume] in Serum or Plasma Magnesium Lab Routine Acute kidney injury (HCC) Expected: 11/28/2022, Expires: 11/22/2023 [facility] [employer] Work Phone: Comment on above: Expected: 11/28/2022, Expires: Start: 10-27-2022 End: 10-27-2022 Patient encounter procedure 10/27/2022 [place] [address] [place] [address] [place] [address] [facility] Start: 10-21-2022 End: 10-21-2022 Patient encounter procedure 10/21/2022 Office Visit Neurosurgery Jeri Ley, COMMERCIAL HVAC SERVICE TECHNICIAN - NEWSPAPER COPY EDITOR [address] [facility] [address] [facility] [address] [place] [address] [facility] Start: 09-29-2022 End: 09-29-2022 Patient encounter procedure [facility] Start: 09-16-2022 End: 09-16-2022 Patient encounter procedure 09/16/2022 Office Visit Primary Care Justyna Valderrama, COMMERCIAL HVAC SERVICE TECHNICIAN - NEWSPAPER COPY EDITOR [address] [place] [address] [facility] Start: 09-10-2022 COVID-19 Vaccine (5 - Additional dose for Luis Eduardo series) COVID-19 Vaccine (5 - Additional dose for Luis Eduardo series) [facility] [employer] [facility] Start: 08-14-2022 Creatinine measurement Creatinine monitoring [facility] Start: 08-14-2022 Potassium monitoring Potassium monitoring [facility] Start: 07-09-2022 Shingles Vaccine (1 of 2) Shingles Vaccine (1 of 2) [facility] [facility] Comment on above: Postponed from 2004 (Patient Refus ed) Start: 07-04-2022 Diabetic retinal exam Diabetic retinal exam [facility] Comment on above: Postponed from 06/30/2020 (Patient Refus ed) Start: 07-04-2022 Hepatitis C screening Hepatitis C screen [facility] Comment on above: Postponed from 1954 (Patient Refus ed) Postponed from 09/09 (Patient Refused) Start: 06-17-2022 End: 06-17-2022 Patient encounter procedure 06/17/2022 Office Visit Primary Care Justyna Valderrama COMMERCIAL HVAC SERVICE TECHNICIAN - NEWSPAPER COPY EDITOR [address] [id number] [facility] Start: 06-16-2022 End: 06-16-2022 Patient encounter procedure 06/16/2022 Office Visit Neurology Juan Jose Schaefer MD [address] [facility] [address] [place] [phone] [facility] NEUROLOGY Part [facility] Start: 06-15-2022 Creatinine measurement Creatinine monitoring [facility] Start: 06-15-2022 Potassium monitoring Potassium monitoring [facility] Start: 06-12-2022 End: 06-12-2022 Patient encounter procedure 06/12/2022 Office Visit Urology Criss Jasmine COMMERCIAL HVAC SERVICE TECHNICIAN - NEWSPAPER COPY EDITOR [address] [facility] [address] [place] [id number] [facility] UROLOGY [facility] Start: 06-11-2022 Pneumococcal 65+ years Vaccine (2 - PCV) Pneumococcal 65+ years Vaccine (2 - PCV) [facility] Comment on above: Postponed from 10/17/2020 (Patient Does Not Have Time) Start: 04-29-2022 End: 04-29-2022 Patient encounter procedure [facility] Kidney and Hypertension Start: 04-24-2022 Annual Wellness Visit (AWV) Annual Wellness Visit (AWV) [facility] Start: 04-24-2022 End: 04-24-2022 Patient encounter procedure [facility] Start: 04-23-2022 Depression Monitoring Depression Monitoring [facility] Start: 04-19-2022 Creatinine measurement Creatinine monitoring [facility] Work Phone: Start: 04-19-2022 Hemoglobin A1c measurement A1C test (Diabetic or Prediabetic) [facility] Start: 04-19-2022 Potassium monitoring Potassium monitoring [facility] Work Phone: Start: 04-17-2022 Influenza vaccination [facility] Start: 04-17-2022 End: 04-17-2022 Patient encounter procedure 04/17/2022 Office Visit Urology Criss Jasmine, COMMERCIAL HVAC SERVICE TECHNICIAN - NEWSPAPER COPY EDITOR 27 [facility] [address] [place] [address] [facility] UROLOGY Part [facility] Start: 04-09-2022 Screening for malignant neoplasm of lung [facility] Start: 04-07-2022 End: 04-07-2022 Patient encounter procedure 04/07/2022 Office Visit Pulmonology Camilo Boyd MD [address] [facility] [address] [place] [address] [facility] OUTREACH PULM Part [facility] Start: 04-01-2022 End: 04-01-2022 Patient encounter procedure 04/01/2022 [place] [address] [place] [address] [facility] GI Part [facility] Start: 03-29-2022 Hemoglobin A1c measurement A1C test (Diabetic or Prediabetic) [facility] Work Phone: Start: 03-29-2022 Hepatitis A vaccine (1 of 2 - Risk 2-dose series) Hepatitis A vaccine (1 of 2 - Risk 2-dose series) [facility] Comment on above: Postponed from 1955 (Patient Refus ed) Start: 03-18-2022 End: 03-18-2022 Dstr nrolytc agnt parverteb fct addl lmbr/sacral [employer]IO[employer]QU[employer]BL[employer] Lumbar spondylosis 03/18/2022 4:56 PM EDT [facility] Start: 03-18-2022 End: 03-18-2022 Admission to same day surgery center 03/18/2022 Surgery IP Unit Darell Watts MD [address] [place], [place] [phone] [employer]IOFREQU[employer]Y ABLATION-L3,4,5 [facility] Comment on above: NERVE RADIOFREQUENCY ABLATION-L3,4,5 Start: 03-18-2022 End: 03-18-2022 Dstr nrolytc agnt parverteb fct addl lmbr/sacral NERVE RADIOFREQUENCY ABLATION Lumbar spondylosis 03/18/2022 3:45 PM EDT [facility] Start: 03-18-2022 Subsequent hospital visit by physician 03/18/2022 Hospital Encounter IP Unit Darell Watts MD [address] [place], [place] [id number] [facility] Start: 03-17-2022 End: 03-17-2022 Patient encounter procedure 03/17/2022 Office Visit Primary Care Justyna Valderrama, COMMERCIAL HVAC SERVICE TECHNICIAN - NEWSPAPER COPY EDITOR [address] [place] [address] [facility] Start: 03-13-2022 End: 03-13-2022 Patient encounter procedure 03/13/2022 Office Visit Neurology Juan Jose Schaefer MD [address] [place] [address] [place] [address] [facility] NEUROLOGY Part of [facility] Start: 02-13-2022 Influenza vaccination Flu vaccine (#1) [facility] Comment on above: Postponed from 04/17/2021 (Not Indicated ) Start: 02-13-2022 End: 02-13-2022 Patient encounter procedure 02/13/2022 Appointment Diabetes Services [facility] Diabetic Education Start: 02-08-2022 Hemoglobin A1c measurement A1C test (Diabetic or Prediabetic) [employer] Phone: Start: 02-07-2022 Creatinine measurement Creatinine monitoring [employer] Phone: Start: 02-07-2022 Potassium monitoring Potassium monitoring [facility] Work Phone: Start: 02-03-2022 End: 02-03-2022 Patient encounter procedure 02/03/2022 Appointment Sleep Center [facility] Sleep Center Start: 01-21-2022 End: 01-21-2022 Admission to same day surgery center 01/21/2022 Surgery IP Unit Darell Watts MD [address] [place] [address] LUMBAR FACET - L4-5, L5-S1 [facility] [place] Comment on above: LUMBAR FACET - L4-5, L5-S1 Start: 01-21-2022 End: 01-21-2022 Njx dx/ther agt pvrt facet jt lmbr/sac 1 level LUMBAR FACET LUMBAR SPONDYLOSIS 01/21/2022 3:00 PM EDT [facility] Start: 01-21-2022 Subsequent hospital visit by physician 01/21/2022 Hospital Encounter IP Unit Darell Watts MD [address] [place] [address] [facility] OR Start: 12-31-2021 End: 12-31-2021 Patient encounter procedure 12/31/2021 Appointment Radiology [facility] Ultrasound Start: 12-12-2021 Diabetic foot examination Diabetic foot exam [facility] Start: 12-12-2021 End: 12-12-2021 Patient encounter procedure 12/12/2021 Office Visit Neurology Juan Jose Schaefer MD [address] [place] [address] [place] [address] [facility] NEUROLOGY Part of [facility] Start: 12-11-2021 End: 12-11-2021 Patient encounter procedure 12/11/2021 Office Visit Primary Care Justyna Valderrama, CELIA - NEWSPAPER COPY EDITOR [address] [place] [address] [facility] Primary Care [place] Start: 12-09-2021 End: 12-09-2021 Patient encounter procedure 12/09/2021 Office Visit Pulmonology Rosalio Michaels, COMMERCIAL HVAC SERVICE TECHNICIAN - NEWSPAPER COPY EDITOR [address] [address] [facility] OUTREACH PULM Part [facility] Start: 12-03-2021 Creatinine measurement Creatinine monitoring [facility] Phone: Start: 12-03-2021 Lipid panel [facility] Start: 12-03-2021 Potassium monitoring Potassium monitoring [facility] Phone: Start: 12-03-2021 Urine screening for protein Diabetic Alb to Cr ratio (uACR) test [facility] Start: 11-26-2021 End: 11-26-2021 Njx dx/ther agt pvrt facet jt lmbr/sac 1 level LUMBAR FACET LUMBAR SPONDYLOSIS 11/26/2021 1:41 PM EDT [facility] Start: 11-12-2021 COVID-19 Vaccine (3 - Booster for Luis Eduardo series) COVID-19 Vaccine (3 - Booster for Luis Eduardo series) [facility] Start: 10-04-2021 Hemoglobin A1c measurement A1C test (Diabetic or Prediabetic) [facility] Start: 10-02-2021 End: 10-02-2021 Patient encounter procedure 10/02/2021 Office Visit Primary Care Justyna Valderrama COMMERCIAL HVAC SERVICE TECHNICIAN - NEWSPAPER COPY EDITOR [address] [place] [address] [facility] Start: 09-19-2021 End: 09-19-2021 Patient encounter procedure 09/19/2021 Office Visit Neurology Juan Jose Schaefer MD [address] [place] [address] Dr [address] [facility] [place] [id number] [facility] NEUROLOGY Part of [facility] Start: 09-12-2021 Breast cancer screen Breast cancer screen [facility] Phone: Start: 09-12-2021 Screening for malignant neoplasm of breast Breast cancer screen [facility] Start: 09-11-2021 End: 09-11-2021 Patient encounter procedure 09/11/2021 Office Visit Primary Care Justyna Valderrama, COMMERCIAL HVAC SERVICE TECHNICIAN - NEWSPAPER COPY EDITOR [address] [place] [address] [facility] Start: 2021 End: 2021 Patient encounter procedure [facility] OUTREACH [facility] Part of [facility] Start: 08-20-2021 End: 08-20-2021 Patient encounter procedure 08/20/2021 Office Visit Primary Care Justyna Valderrama, COMMERCIAL HVAC SERVICE TECHNICIAN - NEWSPAPER COPY EDITOR [address] [place] [address] [facility] Start: 07-04-2021 End: 07-04-2021 Patient encounter procedure 07/04/2021 Office Visit Primary Care Justyna Valderrama, COMMERCIAL HVAC SERVICE TECHNICIAN - NEWSPAPER COPY EDITOR [address] [place] [address] [facility] Start: 07-01-2021 End: 07-01-2021 Patient encounter procedure 07/01/2021 Office Visit Primary Care Justyna Valderrama, COMMERCIAL HVAC SERVICE TECHNICIAN - NEWSPAPER COPY EDITOR [address] [place] [address] [phone] [facility] Start: 06-13-2021 Hepatitis C screening Hepatitis C screen [facility] [place] Comment on above: Postponed from 1954 (Patient Refus ed) Start: 06-13-2021 HIV screening HIV screen [facility] [place] Comment on above: Postponed from 1969 (Patient Refus ed) Start: 06-13-2021 Shingles Vaccine (1 of 2) Shingles Vaccine (1 of 2) [facility] [place] Comment on above: Postponed from 2004 (Patient Refus ed) Start: 05-13-2021 End: 05-13-2021 Patient encounter procedure 05/13/2021 Office Visit Pulmonology Camilo Boyd MD [address] [id number] [facility] OUTREACH PUL Part of [facility] Start: 05-02-2021 Creatinine measurement Creatinine monitoring [place] Start: 05-02-2021 HbA1c (Bld) [Mass fraction] A1C test (Diabetic or Prediabetic) [place], [place] Start: 05-02-2021 Hemoglobin A1c measurement A1C test (Diabetic or Prediabetic) [facility] [employer] Phone: Start: 05-02-2021 Lipid panel Lipid screen [place], [place] Start: 05-02-2021 Potassium monitoring Potassium monitoring [place] Start: 04-30-2021 Creatinine measurement Creatinine monitoring [place], [place] Start: 04-30-2021 Potassium monitoring Potassium monitoring [place], [place] Start: 04-30-2021 End: 04-30-2021 Patient encounter procedure 04/30/2021 Office Visit Nephrology Madai Prado MD [address] [address] [phone] [facility] Kidney and Hypertension Start: 04-23-2021 End: 04-23-2021 Office Visit [facility] Start: 04-18-2021 Annual Wellness Visit (AWV) Annual Wellness Visit (AWV) [place] Start: 04-17-2021 Influenza vaccination Flu vaccine (#1) [facility] [employer] Phone: Start: 03-26-2021 End: 03-26-2021 Patient encounter procedure 03/26/2021 Office Visit Nephrology Madai Prado MD [address] [phone] [facility] Hypert[facility] Start: 03-14-2021 End: 03-14-2021 Patient encounter procedure 03/14/2021 Office Visit Primary Care Mukesh Castanon APRN - MABEL [address] [place] [address] [phone] [facility] Start: 02-19-2021 End: 02-19-2021 Patient encounter procedure 02/19/2021 Office Visit Primary Care Mukesh Castanon APRN - NEWSPAPER COPY EDITOR [address] [place] [address] [phone] [facility] Start: 01-31-2021 Screening for malignant neoplasm of lung Low dose CT lung screening [place], [place] Start: 01-26-2021 Creatinine measurement Creatinine monitoring [facility], [place] Start: 01-26-2021 HbA1c (Bld) [Mass fraction] A1C test (Diabetic or Prediabetic) [place] Start: 01-26-2021 Potassium monitoring Potassium monitoring [place] Start: 01-16-2021 End: 01-16-2021 Office Visit 01/16/2021 Office Visit Oncology Liza Ruelas MD [address] [place] [address] [facility] ON[facility]ISTS Part of [facility] Start: 01-04-2021 Screening for malignant neoplasm of colon [facility] Start: 12-12-2020 End: 12-12-2020 Office Visit 12/12/2020 Office Visit Primary Care Mukesh Castanon APRN - NEWSPAPER COPY EDITOR [address] [place] [address] [phone] [facility] Start: 10-17-2020 Pneumococcal 65+ years Vaccine (2 - PCV) Pneumococcal 65+ years Vaccine (2 - PCV) [employer] [facility] Start: 10-17-2020 Pneumococcal 65+ years Vaccine (2 of 2 - PCV) Pneumococcal 65+ years Vaccine (2 of 2 - PCV) [facility] Start: 09-25-2020 End: 09-25-2020 Virtual Visit 09/25/2020 Virtual Visit Nephrology Madai Prado MD [address] [place] [address] [phone] [employer] [place] [facility] Start: 09-12-2020 Creatinine monitoring Creatinine monitoring [employer] Phone: Start: 09-12-2020 Potassium monitoring Potassium monitoring [employer] Phone: Start: 08-28-2020 End: 08-28-2020 Office Visit 08/28/2020 Office Visit Nephrology Madai Prado MD [address] [address] [place] [address] [phone] [employer] [place] [facility] Start: 07-28-2020 Creatinine monitoring Creatinine monitoring [employer] Phone: Start: 07-28-2020 Potassium monitoring Potassium monitoring [employer] Phone: Start: 07-18-2020 End: 07-18-2020 Office Visit 07/18/2020 Office Visit Oncology Liza Ruelas MD [address] [place] [address] [facility] Part of [facility] Start: 07-17-2020 End: 07-17-2020 Office Visit 07/17/2020 Office Visit Urology Criss Jasmine, COMMERCIAL HVAC SERVICE TECHNICIAN - NEWSPAPER COPY EDITOR [address] [address] [employer] [place] [facility] Part of [facility] Start: 07-08-2020 [object Object] Diabetic foot exam [employer] Phone: Start: 07-08-2020 Diabetic foot examination Diabetic foot exam [facility] [place] Start: 06-30-2020 Diabetic retinal exam Diabetic retinal exam [employer] Start: 06-28-2020 A1C test (Diabetic or Prediabetic) A1C test (Diabetic or Prediabetic) [employer] Phone: Start: 06-28-2020 Lipid panel Lipid screen [facility] [place] Start: 06-28-2020 Lipid screen Lipid screen [employer] Phone: Start: 06-13-2020 End: 06-13-2020 Office Visit 06/13/2020 Office Visit Primary Care Hallie Huynh, COMMERCIAL HVAC SERVICE TECHNICIAN - NEWSPAPER COPY EDITOR [address] [place], [place] [phone] [facility] Primary [facility] [place] Start: 06-05-2020 End: 06-05-2020 Office Visit 06/05/2020 Office Visit Urology Criss Jasmine, COMMERCIAL HVAC SERVICE TECHNICIAN - NEWSPAPER COPY EDITOR [address] [facility] [place] [address] [facility] UR[facility] Part of [facility] Start: 05-30-2020 Breast cancer screen Breast cancer screen [place], [place] Comment on above: Postponed from 2004 (Patient Refus ed) Start: 05-30-2020 Cervical cancer screen Cervical cancer screen [place] Comment on above: Postponed from 1975 (Patient Refus ed) Start: 05-30-2020 DTaP/Tdap/Td vaccine (1 - Tdap) DTaP/Tdap/Td vaccine (1 - Tdap) [place] Comment on above: Postponed from 1965 (Patient Refus ed) Start: 05-30-2020 Hepatitis C screen Hepatitis C screen [place] Comment on above: Postponed from 1954 (Patient Refus ed) Start: 05-30-2020 Hepatitis C screening Hepatitis C screen [place] Comment on above: Postponed from 1954 (Patient Refus ed) Start: 05-30-2020 HIV screen HIV screen [place] Comment on above: Postponed from 1969 (Patient Refus ed) Start: 05-30-2020 HIV screening HIV screen [place] Comment on above: Postponed from 1969 (Patient Refus ed) Start: 05-30-2020 Screening for malignant neoplasm of cervix Cervical cancer screen [place] Comment on above: Postponed from 1975 (Patient Refus ed) Start: 05-30-2020 Shingles Vaccine (1 of 2) Shingles Vaccine (1 of 2) [place] Comment on above: Postponed from 2004 (Patient Refus ed) Start: 04-17-2020 Influenza vaccination Flu vaccine (#1) [place] Start: 02-28-2020 End: 02-28-2020 Office Visit 02/28/2020 Office Visit Nephrology Madai Prado MD [address] [address] [phone] [facility] Hypert[facility] Start: 02-15-2020 End: 02-15-2020 Office Visit 02/15/2020 Office Visit Oncology Liza Ruelas MD [address] [place], [place] [phone] [facility] Part of [facility] Start: 02-01-2020 End: 02-01-2020 Appointment [facility] Ultrasound Start: 01-30-2020 End: 01-30-2020 Appointment 01/30/2020 Appointment Pre-Admission Testing [facility] Start: 12-27-2019 End: 12-27-2019 Office Visit 12/27/2019 Office Visit Nephrology Madai Prado MD [address] [address] [phone] [facility] Hy[facility] Start: 12-22-2019 End: 12-22-2019 Office Visit 12/22/2019 Office Visit Oncology Isis Rodriguez MD [address] [facility] [place], [place] [phone] [facility] ON[facility] SPECIAL[facility] Start: 12-13-2019 End: 12-13-2019 Office Visit 12/13/2019 Office Visit Urology Criss Jasmine, COMMERCIAL HVAC SERVICE TECHNICIAN - NEWSPAPER COPY EDITOR 27 [facility] [address] [place] [phone] [facility] UROLOGY Start: 11-29-2019 End: 11-29-2019 Office Visit 11/29/2019 Office Visit Nephrology Madai Prado MD [address] [address] [phone] [facility] Start: 10-10-2019 End: 10-10-2019 Office Visit 10/10/2019 Office Visit Primary Care Hallie Huynh COMMERCIAL HVAC SERVICE TECHNICIAN - NEWSPAPER COPY EDITOR [address] [place] [address] [phone] [facility] Start: 10-06-2019 End: 10-06-2019 Appointment 10/06/2019 Appointment Infusion Therapy [facility] Start: 10-03-2019 End: 10-03-2019 Appointment [facility] Mammography Start: 09-27-2019 End: 09-27-2019 Patient encounter procedure [facility] Start: 09-22-2019 End: 09-22-2019 Patient encounter procedure 09/22/2019 Office Visit Oncology Dora Sheridan MD [address] [place] [address] [facility] Start: 2019 DEXA (modify frequency per FRAX score) DEXA (modify frequency per FRAX score) [employer] Phone: Start: 2019 End: 2019 Office Visit 2019 Office Visit Nephrology Tavon Ceja MD [address] [facility], [place] [address] [facility] Start: 2019 Pneumococcal 65+ years Vaccine (1 of 1 - PPSV23) Pneumococcal 65+ years Vaccine (1 of 1 - PPSV23) [facility] Start: 07-08-2019 End: 07-08-2019 Office Visit 07/08/2019 Office Visit Primary Care Mukesh Castanon COMMERCIAL HVAC SERVICE TECHNICIAN - NEWSPAPER COPY EDITOR [address] [place] [address] [phone] [facility] Start: 05-30-2019 Annual Wellness Visit (AWV) Annual Wellness Visit (AWV) [place], [place] Start: 2009 DEXA (modify frequency per FRAX score) DEXA (modify frequency per FRAX score) [place] Start: [address] lung screening Low dose CT lung screening [facility] [employer] Phone: Start: 2009 Screening for malignant neoplasm of lung Low dose CT lung screening [place] Start: 2009 Screening for osteoporosis DEXA (modify frequency per FRAX score) [place] Start: 2004 Colon cancer screen colonoscopy Colon cancer screen colonoscopy [place] Start: 2004 Shingles Vaccine (1 of 2) Shingles Vaccine (1 of 2) [facility] [employer] Start: 1999 Screening for malignant neoplasm of colon [facility] [employer] Start: 1975 Screening for malignant neoplasm of cervix Cervical cancer screen [place], [place] Start: 1973 Hepatitis B vaccine (1 of 3 - Risk 3-dose series) Hepatitis B vaccine (1 of 3 - Risk 3-dose series) [facility] [employer] Phone: Start: 1972 Urine screening for protein Diabetic Alb to Cr ratio (uACR) test [facility] [employer] Start: 1970 COVID-19 Vaccine (1) COVID-19 Vaccine (1) [employer] Phone: Start: 1969 HIV screening HIV screen [place], [place] Start: 1964 [object Object] Diabetic foot exam [place] Start: 1964 A1C test (Diabetic or Prediabetic) A1C test (Diabetic or Prediabetic) [place] Start: 1964 Diabetic retinal exam Diabetic retinal exam [place], [place] Start: 1964 Lipid screen Lipid screen [place], [place] Start: 1960 Pneumococcal 0-64 years Vaccine (1 of 1 - PPSV23) Pneumococcal 0-64 years Vaccine (1 of 1 - PPSV23) [place] Start: 1955 Hepatitis A vaccine (1 of 2 - Risk 2-dose series) Hepatitis A vaccine (1 of 2 - Risk 2-dose series) [employer] Start: 1954 Creatinine monitoring Creatinine monitoring [facility] [employer] [place] Start: 1954 Hepatitis C screening Hepatitis C screen [employer] Start: 1954 Potassium monitoring Potassium monitoring [place] End: 12-03-2020 CBC W Auto Differential panel - Blood CBC With Auto Differential Lab Routine Iron deficiency anemia, unspecified iron deficiency anemia type 1 Occurrences starting 12/03/2020 until 12/03/2020 [employer] Phone: Comment on above: 1 Occurrences starting 12/03/2020 until 12/03/2020 CBC W Auto Different ial panel - Blood CBC auto differential Lab Routine Daily until discontinued starting 02/08/2021, 4 completed [employer] Phone: Comment on above: Daily until discontinued starting 2020, 4 completed End: 09-15-2022 CBC W Auto Differential panel - Blood CBC auto differential Lab Routine Tomorrow AM for 9 Occurrences starting 09/07/2022 until 09/15/2022, 5 completed [employer] Phone: Comment on above: Tomorrow AM for 9 Occurrences starting 0 09/07/2022 until 09/15/2022, 5 completed End: 09-15-2022 Comprehensive Metabolic Panel w/ Reflex to MG Comprehensive Metabolic Panel w/ Reflex to MG Lab Routine Tomorrow AM for 9 Occurrences starting 09/07/2022 until 09/15/2022, 5 completed [employer] Phone: Comment on above: Tomorrow AM for 9 Occurrences starting 0 09/07/2022 until 09/15/2022, 5 completed End: 11-26-2022 Comprehensive Metabolic Panel w/ Reflex to MG Comprehensive Metabolic Panel w/ Reflex to MG Lab Routine Daily for 8 Days starting 11/19/2022 until 11/26/2022, 7 completed [employer] Phone: Comment on above: Daily for 8 Days starting 11/19/2022 unt il 11/26/2022, 7 completed Culture, Blood 1 Liquid [employer] Work Phone: Culture, Blood 1 Culture, Blood 1 Microbiology Routine Urinary tract infection without hematuria, site unspecified Chronic midline low back pain without sciatica 12/29/2022 11:50 AM EDT [employer] Phone: Culture, Blood 2 Culture, Blood 2 Microbiology Routine Urinary tract infection without hematuria, site unspecified Chronic midline low back pain without sciatica 12/29/2022 12:00 PM EDT [employer] Phone: End: 06-06-2020 Culture, Urine Culture, Urine Microbiology Routine Once for 1 Occurrences starting 06/06/2020 until 06/06/2020 [employer] Comment on above: Once for 1 Occurrences starting 06/06/20 until 06/06/2020 Culture, Urine [employer] [place] End: 05-15-2021 Culture, Urine Culture, Urine Microbiology Routine Acute cystitis with hematuria 1 Occurrences starting 05/15/2021 until 05/15/2021 [employer] Phone: Comment on above: 1 Occurrences starting 05/15/2021 until 05/15/2021 End: 08-14-2021 Culture, Urine [employer] Phone: Comment on above: One Time for 1 Occurrences starting 07/18 until 08/14/2021 End: 12-18-2022 Culture, Urine [employer] Work Phone: Comment on above: Once for 1 Occurrences starting 12/19/19 until 12/18/2022 End: 05-06-2023 Culture, Urine [employer] Comment on above: Once for 1 Occurrences starting 05/06/20 until 05/06/2023 End: 06-24-2021 ECHO 2D WO Color Doppler Complete ECHO 2D WO Color Doppler Complete Echocardiography Routine Dyspnea on exertion 1 Occurrences starting 06/24/2021 until 06/24/2021 [employer] Phone: Comment on above: 1 Occurrences starting 06/24/2021 until 06/24/2021 EKG 12 Lead EKG 12 Lead ECG STAT 10/03/2022 8:00 PM EST [employer] Work Phone: EKG 12 Lead EKG 12 Lead ECG STAT 04/01/2023 6:26 PM EDT [employer] End: 09-12-2019 Ferritin [Mass/volume] in Serum or Plasma Ferritin Lab Routine Other iron deficiency anemia 1 Occurrences starting 09/12/2019 until 09/12/2019 [employer] Phone: Comment on above: 1 Occurrences starting 09/12/2019 until 09/12/2019 Ferritin [Mass/volum e] in Serum or Plasma Ferritin Lab Routine Other iron deficiency anemia 09/12/2019 12:35 PM EST [employer] Work Phone: Glucose [Mass/volume ] in Serum or Plasma [employer] Work Phone: Comment on above: 4X Daily (AC & HS) until discontinued st arting 09/07/2022 As Needed until disc ontinued starting 09/07/2022 Glucose [Mass/volume ] in Serum or Plasma POCT Glucose Point of Care Testing STAT As Needed until discontinued starting 10/05/2022 [employer] Work Phone: Comment on above: As Needed until discontinued starting Glucose [Mass/volume ] in Serum or Plasma [employer] Work Phone: Comment on above: 4X Daily (AC & HS) until discontinued st arting 11/19/2022 As Needed until disc ontinued starting 11/18/2022 Glucose [Mass/volume ] in Serum or Plasma [employer] Work Phone: Comment on above: 4X Daily (AC & HS) until discontinued st arting 01/11/2023 As Needed until disc ontinued starting 01/11/2023 End: 11-24-2019 HbA1c (Bld) [Mass fraction] Hemoglobin A1c Lab Routine One Time for 1 Occurrences starting 11/24/2019 until 11/24/2019 [facility] Comment on above: One Time for 1 Occurrences starting 04/2020 until 11/24/2019 End: 12-03-2020 Hemoglobin A1c/Hemoglobin.total in Blood Hemoglobin A1C Lab Routine Type 2 diabetes mellitus with other specified complication, with long-term current use of insulin (HCC) 1 Occurrences starting 12/03/2020 until 12/03/2020 [employer] Phone: Comment on above: 1 Occurrences starting 12/03/2020 until 12/03/2020 Hemoglobin A1c/Hemoglobin.total in Blood [employer] Phone: End: 04-19-2021 Hemoglobin A1c/Hemoglobin.total in Blood Hemoglobin A1C Lab Routine Type 2 diabetes mellitus with other specified complication, with long-term current use of insulin ([facility]) 1 Occurrences starting 04/19/2021 until 04/19/2021 [employer] Phone: Comment on above: 1 Occurrences starting 04/19/2021 until 04/19/2021 Initiate Oxygen Ther apy Protocol Initiate Oxygen Therapy Protocol Respiratory Care Routine Daily until discontinued starting 11/24/2019 [employer] Comment on above: Daily until discontinued starting 2019 Intermittent pulse oximetry Pulse Oximetry Spot Check Respiratory Care Routine Daily until discontinued starting 01/11/2023 [employer] Phone: Comment on above: Daily until discontinued starting 2022 End: 09-12-2019 Iron and TIBC Iron and TIBC Lab Routine Other iron deficiency anemia 1 Occurrences starting 09/12/2019 until 09/12/2019 [employer] Phone: Comment on above: 1 Occurrences starting 09/12/2019 until 09/12/2019 Iron and TIBC Iron and TIBC La b Routine Other iron deficiency anemia 09/12/2019 12:35 PM EST [employer] Phone: Nasal Cannula Oxygen Nasal Cannu la Oxygen Respiratory Care Routine Daily until discontinued starting 09/07/2022 [employer] Phone: Comment on above: Daily until discontinued starting 2022 Nasal Cannula Oxygen Nasal Cannu la Oxygen Respiratory Care Routine Daily until discontinued starting 01/11/2023 [employer] Phone: Comment on above: Daily until discontinued starting 2022 Nasal Cannula Oxygen Nasal Cannu la Oxygen Respiratory Care STAT Daily until discontinued starting 04/01/2023 [employer] Phone: Comment on above: Daily until discontinued starting 2022 Oxygen therapy [Mini mum Data Set] Initiate Oxygen Therapy Protocol Respiratory Care Routine Daily until discontinued starting 02/08/2021 [employer] Phone: Comment on above: Daily until discontinued starting 2020 Oxygen therapy [Mini mum Data Set] Initiate Oxygen Therapy Protocol Respiratory Care Routine As Needed until discontinued starting 09/07/2022 [employer] Phone: Comment on above: As Needed until discontinued starting Oxygen therapy [Mini mum Data Set] Initiate Oxygen Therapy Protocol Respiratory Care Routine Daily until discontinued starting 11/18/2022 [employer] Phone: Comment on above: Daily until discontinued starting 2022 Oxygen therapy [Mini mum Data Set] Initiate Oxygen Therapy Protocol Respiratory Care Routine As Needed until discontinued starting 01/11/2023 [employer] Phone: Comment on above: As Needed until discontinued starting POCT glucose [employer] Comment on above: 4X Daily (AC & HS) until discontinued st arting 11/24/2019 As Needed until disc ontinued starting 11/24/2019 4X Daily (AC & HS) u ntil discontinued starting 02/08/2021 As Needed until disc ontinued starting 02/08/2021 End: 12-25-2021 Sleep Study with PAP Titration Sleep Study with PAP Titration Sleep Center Routine ALAN (obstructive sleep apnea) 1 Occurrences starting 12/25/2021 until 12/25/2021 [employer] Phone: Comment on above: 1 Occurrences starting 12/25/2021 until 12/25/2021 End: 02-03-2022 Sleep Study with PAP Titration Sleep Study with PAP Titration Sleep Center Routine ALAN (obstructive sleep apnea) 1 Occurrences starting 02/03/2022 until 02/03/2022 [employer] Phone: Comment on above: 1 Occurrences starting 02/03/2022 until 02/03/2022 End: 06-28-2019 Soluble Transferrin Receptor Soluble Transferrin Receptor Lab Routine History of anemia 1 Occurrences starting 06/28/2019 until 06/28/2019 [employer] Comment on above: 1 Occurrences starting 06/28/2019 until 06/28/2019 Soluble Transferrin Receptor [employer] End: 09-12-2019 Soluble transferrin receptor Soluble transferrin receptor Lab Routine Other iron deficiency anemia 1 Occurrences starting 09/12/2019 until 09/12/2019 [employer] Phone: Comment on above: 1 Occurrences starting 09/12/2019 until 09/12/2019 End: 09-12-2019 Vitamin B12 & Folate Vitamin B12 & Folate Lab Routine Other iron deficiency anemia 1 Occurrences starting 09/12/2019 until 09/12/2019 [employer] Phone: Comment on above: 1 Occurrences starting 09/12/2019 until 09/12/2019 Vitamin B12 & Folate Vitamin B12 & Folate Lab Routine Other iron deficiency anemia 09/12/2019 12:35 PM EST [employer] Work Phone: Immunizations Immunization Date Immunization Notes Care Provider Marian[facility] 05-11-2022 Influenza, FLUAD, (a ge 65 y+), Adjuvanted, 0.5mL [employer] Work Phone: [employer] Work Phone: 07-15-2021 COVID-19, PFIZER PUR PLE top, DILUTE for use, (age 12 y+), 30mcg/0.3mL [employer] Work Phone: [employer] 11-23-2020 Alphonso [employer] Alphonso COVID 19 Vaccine [facility] Work Phone: Comment on above: Note: Patient tolera lo well. No signs or symptoms of adverse reactions. Patient waited a minimum of 15 minutes. 10-23-2020 COVID-19, J&J, PF, 0.5 mL Ci noelle Mitchell MD Work Phone: [facility] 05-17-2020 influenza, high dose seasonal, preservative-free Mukesh Castanon COMMERCIAL HVAC SERVICE TECHNICIAN - NEWSPAPER COPY EDITOR Work Phone: [facility] 11-23-2019 diphtheria, tetanus toxoids and acellular pertussis vaccine, unspecified formulation [facility] , [place] 11-23-2019 tetanus toxoid, redu chidi diphtheria toxoid, and acellular pertussis vaccine, adsorbed [facility], [place] 10-18-2019 pneumococcal polysaccharide vaccine, 23 valent [facility] 05-30-2019 influenza, injectabl e, quadrivalent, preservative free Mukesh [facility] Payers Date Payer Category Payer Medicare 2020 Medicare [id number] 2018 Medicare MEDICARE MEDICAR E PART A AND B xxxxxxxxxxx 2018-Present [phone] [id number] [place] [id number] xxxxxxxxxxx [id number] 2018 Medicare MEDICARE MEDICAR E PART A AND B [id number] 2018-Present [phone] [place] [id number] .[id number] 1954 Unknown [id number] 2.16.840.1.328778.3.579.2.196 1954 Unknown [id number] 2.16.840.1.023940.3.579.2.196 1954 Unknown [id number] 2.16.840.1.580128.3.579.2.196 1954 Unknown [id number] 2.16.840.1.531987.3.579.2. 1954 Unknown [id number] 2.16.840.1.436834.3.579.2. 1954 Unknown [id number] 2.16.840.1.461935.3.579.2.128 1954 Unknown [id number] 2.16.840.1.535889.3.579.2.128 1954 Unknown [id number] 2.16.840.1.420524.3.579.2.128 1954 Unknown [id number] 2.16.840.1.639676.3.579.2.128 1954 Unknown [id number] 2.16.840.1.565741.3.579.2.128 1954 Unknown [id number] 2.16.840.1.867584.3.579.2.128 1954 Unknown [id number] 2.16.840.1.532933.3.579.2.128 1954 Unknown [id number] 2.16.840.1.366417.3.579.2.128 1954 Unknown [id number] 2.16.840.1.253902.3.579.2.128 1954 Unknown [id number] 2.16.840.1.418035.3.579.2.128 1954 Unknown [id number] 2.16.840.1.207672.3.579.2.128 1954 Unknown [id number] 2.16.840.1.034277.3.579.2.128 1954 Unknown [id number] 2.16.840.1.952197.3.579.2.128 1954 Unknown [id number] 2.16.840.1.101841.3.579.2.128 1954 Unknown [id number] 2.16.840.1.303507.3.579.2.128 1954 Unknown [id number] 2.16.840.1.714166.3.579.2.128 1954 Unknown [id number] 2.16.840.1.213913.3.579.2.128 1954 Unknown [id number] 2.16.840.1.573190.3.579.2.128 1954 Unknown [id number] 2.16.840.1.621583.3.579.2.128 1954 Unknown [id number] 2.16.840.1.485289.3.579.2.128 1954 Unknown [id number] 2.16.840.1.081128.3.579.2.128 1954 Unknown [id number] 2.16.840.1.084481.3.579.2.128 1954 Unknown [id number] 2.16.840.1.860688.3.579.2.128 1954 Unknown [id number] 2.16.840.1.670552.3.579.2.128 1954 Unknown [id number] 2.16.840.1.732845.3.579.2.175 1954 Unknown [id number] 2.16.840.1.211677.3.579.2.175 1954 Unknown [id number] 2.16.840.1.876719.3.579.2.175 1954 Unknown [id number] 2.16.840.1.454493.3.579.2.175 1954 Unknown [id number] 2.16.840.1.886593.3.579.2.173 1954 Unknown [id number] 2.16.840.1.294831.3.579.2.173 1954 Unknown [id number] 2.16.840.1.684267.3.579.2.173 1954 Unknown [id number] 2.16.840.1.284757.3.579.2.173 1954 Unknown [id number] 2.16.840.1.288562.3.579.2.173 1954 Unknown [id number] 2.16.840.1.981092.3.579.2.173 1954 Unknown [id number] 2.16.840.1.458367.3.579.2.173 1954 Unknown [id number] 2.16.840.1.255906.3.579.2.173 1954 Unknown [id number] 2.16.840.1.394259.3.579.2.173 1954 Unknown [id number] 2.16.840.1.384567.3.579.2.173 1954 Unknown [id number] 2.16.840.1.737683.3.579.2.173 1954 Unknown [id number] 2.16.840.1.664636.3.579.2.173 1954 Unknown [id number] 2.16.840.1.431342.3.579.2.173 1954 Unknown [id number] 2.16.840.1.236522.3.579.2.173 1954 Unknown [id number] 2.16.840.1.987728.3.579.2.173 1954 Unknown [id number] 2.16.840.1.163214.3.579.2.173 1954 Unknown [id number] 2.16.840.1.481270.3.579.2.173 1954 Unknown [id number] 2.16.840.1.788076.3.579.2.173 1954 Unknown [id number] 2.16.840.1.626621.3.579.2.173 1954 Unknown [id number] 2.16.840.1.195418.3.579.2.173 1954 Unknown [id number] 2.16.840.1.235916.3.579.2.173 Social History Date Type Detail Facility Start: 09-27-2019 End: 03-13-2022 Tobacco smoking status NHIS Former smoker [employer] End: 08-17-2009 History of tobacco use Current smoker [employer] Phone: End: 08-17-2009 History of tobacco use Cigarette Smoker [employer] Phone: Start: 09-27-2019 End: 03-25-2023 Cigarettes smoked current (pack per day) - Reported [employer] JUSTIN [employer] Start: 09-27-2019 End: 04-28-2023 Alcohol intake Lifetime non-drinker (finding) [employer] Phone: Start: 09-27-2019 End: 03-25-2023 History SDOH Alcohol Frequency 1 [employer] Phone: Start: 1955 Sex Assigned At Not on file [facility] [employer] [place], [place] Exposure to SARS-CoV -2 (event) Unable to assess [facility] [place] Start: 01-05-2020 End: 03-25-2023 History SDOH Financial 5 [facility] [place] Start: 01-05-2020 End: 03-25-2023 History SDOH Transport Med 2 [place] Start: 04-30-2020 End: 03-13-2022 Tobacco use and exposure Never used [employer] [place], [place] Start: 11-16-2021 End: 11-29-2022 Exposure to SARS-CoV-2 (event) Not sure [employer] [place] Start: 06-03-2019 End: 09-12-2019 Tobacco smoking status NHIS Never smoker [employer] [place] Start: 06-03-2019 End: 09-12-2019 Alcohol intake Ex-drinker (finding) [employer] [place] Tobacco smoking status Unknown if ever sm [employer] [facility] Work Phone: Start: 12-25-2021 End: 06-17-2022 History SDOH Physical Activity DPW 0 [employer] Work Phone: Start: 12-25-2021 History SDOH Stress 3 Kellie twago - [employer] Work Phone: Start: 1955 Sex Assigned At Female Jonh [employer] Start: 03-25-2023 End: 04-01-2023 Alcohol Use Disorder Identification Test - Consumption [AUDIT-C] [employer] How often to you hav e a drink containing alcohol? Never [employer] How many standard dr inks containing alcohol do you have on a typical day? Patient does not drink [employer] Do you feel stress - tense, restless, nervous, or anxious, or unable to sleep at night because your mind is troubled all the time - these days [OSQ] To some extent [employer] (I/We) worried wheth er (my/our) food would run out before (I/we) got money to buy more. Never true [employer] At any time in the p ast 12 months, were you homeless or living in snf [including now]? No [employer] Start: 12-29-2021 Gender identity Identifies as female gender (finding) [employer] Start: 12-29-2021 Sexual orientation Choose not to dis close [employer] Medical Equipment Procedure Code Equipment Code Equipment Origin al Text Equipment Identifier Dates Cement Bne Hi Vi sc Radiopaque Kyphon Hv-R - [id number] Start: 10-06-2022 Goals Date Patient Goal Desired Activity /State Comment on above: Formatting of this n ote might be different from the original. Self-Monitored Blood Glucose - I will check my blood sugar Fasting blood sugar I will notify my provider of any trends of increasing or decreasing blood sugars over a 1 month period. I will notify my provider if I have any blood sugar readings less than 70 more than 2 times a month. -Yearly eye exam -Foot care -Verbalize how to treat low blood sugars -Verbalize understanding of sick day management -Reduce stress- attend counseling session Barriers: fear of failure, lack of support, overwhelmed by complexity of regimen, stress, and lack of education Plan for overcoming my barriers: working with this care manager manager Confidence: 03/26 Anticipated Goal Completion Date: 11/09/2021 Comment on above: Formatting of this n ote might be different from the original. Self-Monitored Blood Glucose - I will check my blood sugar Fasting blood sugar and blood sugars ac I will notify my provider of any trends of increasing or decreasing blood sugars over a 1 month period. I will notify my provider if I have any blood sugar readings less than 70 more than 2 times a month. Barriers: fear of failure, lack of motivation, lack of support, overwhelmed by complexity of regimen, and lack of education Plan for overcoming my barriers: working with this care manager manager Confidence: 03/26 Anticipated Goal Completion Date: 04/27/2022 Comment on above: Formatting of this n ote might be different from the original. Angella will receive Passport Barriers: lack of support Plan for overcoming my barriers: Angella will work with social service in care coordination. Confidence: 04/26 Anticipated Goal Completion Date: Clinical Notes 02-11-2021 to 04-01-2023 Discharge InstructionsMatt Todd PTA - 01/15/2023 3:19 PM Radha Hearn MD - 01/15/2023 9:58 AM Jessica Blackwell, DO - 01/15/2023 9:19 AM Jessica Blackwell, DO - 01/14/2023 11:31 AM EDT Note Date & Type Note Facility 04-01-2023 Hospital Discharge instructions Jewel Valentin MD - 04/01/2023 7:19 PM EDT Continue current medication as prescribed. Seek attention immediately for any acute The following attachments cannot be sent through Care Everywhere.Back: Strain (Moroccan)Chest Pain: Musculoskeletal (Moroccan)documented in this encounter [facility] 01-15-2023 History of Present illness Narrative Images from the original note were not included. Physical Therapy Physical Therapy Cancel Note DATE: 01/15/2023 NAME: Angella Olson : 1955 Patient not seen this date for Physical Therapy due to: Patient Declined: Pt refusing, states i'm too tired and in too much pain Images from the original note were not included. [facility] - Progress Note Today's Date and Time: 01/15/2023, 9:58 AM Impression : UTI E coli x 2 different strains S/P Fall Multiple severe allergies. Anaphylaxis with Clindamycin, erythromycin, quinolones, sulfa, tetracycline Has tolerated ceftriaxone so far Cirrhosis of liver Splenomegaly Recommendations: She has two strains of E coli . Both strains are Sensitive to cephalosporins. Cephalexin 500 mg po qid . Stop date 01-20-23 Medical Decision Making/Summary/Discussion:01/15/2023 Infection Control Recommendations [place] Precautions Antimicrobial Stewardship Recommendations Simplification of therapy Targeted therapy Coordination of Outpatient Care: Estimated Length of IV antimicrobials: 01-14-23 Patient will need Midline Catheter Insertion: No Patient will need PICC line Insertion:No Patient will need: Home IV , Infusion Center, SNF, LTAC: TBD Patient will need outpatient wound care:No Chief complaint/reason for consultation: UTI Multiple serious allergies History of Present Illness: Angella Olson is a 67 y.o.-year-old female who was initially admitted on 01/10/2023. Patient seen at the request of Dr. Lemus. 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 In addition she has multiple severe allergies including anaphylaxis to Clindamycin, erythromycin, quinolones, sulfa, tetracycline, penicillins. She resides in an assisted living facility. She was found on the floor, confused . Hx of a few falls over the past several days. Patient [facility] was concern with malignment of C spine. This was later excluded. Patient transferred to [facility] where she was felt to have a UTI with possible infection related confusion. Urine cultures have shown 2 strains of E coli >100,000 cfu/ml . Patient has received treatment with Ceftriaxone with some improvement in mentation. However, she remains pleasantly confused during my exam. So far she has tolerated Rocephin. CURRENT EVALUATION :01/15/2023 Afebrile VS stable Patient tired, did not sleep well No other complaints No new issues per RN Medications reviewed On Keflex po X 7 days Assisted living feels it is not safe for her to continue with that modality because of recurrent falls. Placement efforts underway Labs, X rays reviewed: 01/15/2023 BUN: 15 Cr: 1.26 WBC: 5.7 Hb:11.5 Plat: 104 Cultures: Urine: 01-10-23: E coli x 2 strains Blood: Sputum : Wound: Discussed with patient, RN, IM. I have personally reviewed the past medical history, past surgical history, medications, social history, and family history, and I have updated the database accordingly. 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 BACK SURGERY Donor cervical fusion. SECTION [address]Eric Sandoval-gastro in [place], [place]-unsure when ESOPHAGOGASTRODUODENOSCOPY 10/2021 [facility] ESOPHAGOGASTRODUODENOSCOPY 06/2021 [facility] EYE SURGERY Retinal surgery. KYPHOSIS SURGERY 10/06/2022 [facility] Left 12/2019 Left middle finger. OTHER SURGICAL HISTORY Removal of mass from left mid arm. OTHER SURGICAL HISTORY OTHER SURGICAL HISTORY Right NERVE RADIOFREQUENCY ABLATION-L3,4,5 (Right: Back)- Dr. Watts PAIN MANAGEMENT PROCEDURE Bilateral 11/26/2021 LUMBAR FACET - L4-5 L5-SI performed by Darell Watts MD at [facility] OR PAIN MANAGEMENT PROCEDURE Bilateral 01/21/2022 LUMBAR FACET - L4-5, L5-S1 performed by Darell Watts MD at [facility] OR PAIN MANAGEMENT PROCEDURE Right 03/18/2022 NERVE RADIOFREQUENCY ABLATION-L3,4,5 performed by Darell Watts MD at [facility] OR PAIN MANAGEMENT PROCEDURE N/A 06/10/2022 EPIDURAL STEROID INJECTION- L5-SI, RIGHT OF MIDLINE performed by Darell Watts MD at [facility] OR SPINE SURGERY N/A 10/06/2022 KYPHOPLASTY - L3 performed by Sosa Rodriguez DO at [facility] OR UPPER GASTROINTESTINAL ENDOSCOPY [facility] unsure when Medications: traZODone 50 mg Oral Nightly cephALEXin 500 mg Oral 4 times per day insulin lispro 0-8 Units SubCUTAneous TID WC insulin lispro 0-4 Units SubCUTAneous Nightly allopurinol 150 mg Oral Daily atenolol 50 mg Oral Daily atorvastatin 80 mg Oral Nightly divalproex 750 mg Oral Nightly ferrous sulfate 325 mg Oral Q48H FLUoxetine 40 mg Oral Daily budesonide-formoterol 2 puff Inhalation BID gabapentin 100 mg Oral BID lactulose 30 g Oral BID pantoprazole 40 mg Oral QAM AC spironolactone 25 mg Oral Daily trospium 20 mg Oral BID AC sodium chloride flush 5-40 mL IntraVENous 2 times per day heparin (porcine) 5,000 Units SubCUTAneous 3 times per day insulin glargine 20 Units SubCUTAneous BID Social History: Social History Socioeconomic History Marital status: Spouse name: Not on file Number of children: 1 Years of education: 19 Highest education level: Not on file Occupational History Not on file Tobacco Use Smoking status: Former Packs/day: 1.00 Years: 30.00 Pack years: 30.00 Types: Cigarettes Quit date: 2009 Years since quittin.4 Smokeless tobacco: Never Vaping Use Vaping Use: Never used Substance and Sexual Activity Alcohol use: Never Drug use: Never Sexual activity: Not Currently Other Topics Concern Not on file Social History Narrative Not on file Social Determinants of Health Financial Resource Strain: Low Risk Difficulty of Paying Living Expenses: Not hard at all Food Insecurity: No Food Insecurity Worried About Running Out of Food in the Last Year: Never true Ran Out of Food in the Last Year: Never true Transportation Needs: Not on file Physical Activity: Inactive Days of Exercise per Week: 0 days Minutes of Exercise per Session: 0 min Stress: Not on file Social Connections: Not on file Intimate Partner Violence: Not on file Housing Stability: Not on file Family History: Family History Problem Relation Age of Onset Other Mother Interstitial Pulmonary fibrosis. Other Son stomach issues-rapid onset diarrhea Allergies: Latex, Clindamycin/lincomycin, Erythromycin base, Fentanyl, Gatifloxacin, Indomethacin, Iodine tincture [iodine], Pcn [penicillins], Shellfish-derived products, Sulfa antibiotics, Tetracyclines & related, Lidocaine, Nitrofuran derivatives, Phenazopyridine hcl, and Phenazopyridine Review of Systems: Constitutional: No fevers or chills. No systemic complaints Head: No headaches Eyes: No double vision or blurry vision. No conjunctival inflammation. ENT: No sore throat or runny nose.. No hearing loss, tinnitus or vertigo. Cardiovascular: No chest pain or palpitations.No shortness of breath. No BAILEY Lung: No shortness of breath or cough. No sputum production Abdomen: No nausea, vomiting, diarrhea, or abdominal pain.. No cramps. Genitourinary: No increased urinary frequency, or dysuria. No hematuria. No suprapubic or CVA pain Musculoskeletal: No muscle aches or pains. No joint effusions, swelling or deformities Hematologic: No bleeding or bruising. Neurologic: No headache, weakness, numbness, or tingling.Confusion Integument: No rash, no ulcers. Psychiatric: No depression. Endocrine: No polyuria, no polydipsia, no polyphagia. Physical Examination : Patient Vitals for the past 8 hrs: BP Temp Temp src Pulse Resp SpO2 01/15/23 0737 138/84 98.2 F (36.8 C) Oral 68 18 97 % General Appearance: Awake, alert, and in no apparent distress Head: Normocephalic, no trauma Eyes: Pupils equal, round, reactive to light and accommodation; extraocular movements intact; sclera anicteric; conjunctivae pink. No embolic phenomena. ENT: Oropharynx clear, without erythema, exudate, or thrush. No tenderness of sinuses. Mouth/throat: mucosa pink and moist. No lesions. Dentition in good repair. Neck:Supple, without lymphadenopathy. Thyroid normal, No bruits. Pulmonary/Chest: Clear to auscultation, without wheezes, rales, or rhonchi. No dullness to percussion. Cardiovascular: Regular rate and rhythm without murmurs, rubs, or gallops. Abdomen: Soft, non tender. Bowel sounds normal. No organomegaly All four Extremities: No cyanosis, clubbing, edema, or effusions. Neurologic: No gross sensory or motor deficits. Has some degree of confusion Skin: Warm and dry with good turgor.No signs of peripheral arterial or venous insufficiency. No ulcerations. No open wounds. Medical Decision Making -Laboratory: I have independently reviewed/ordered the following labs: CBC with Differential: No results for input(s): WBC, HGB, HCT, PLT, SEGSPCT, BANDSPCT, LYMPHOPCT, MONOPCT, EOSPCT in the last 72 hours. BMP: No results for input(s): NA, K, CL, CO2, BUN, CREATININE, CA, MG in the last 72 hours. Hepatic Function Panel: No results for input(s): PROT, LABALBU, BILIDIR, IBILI, BILITOT, ALKPHOS, ALT, AST in the last 72 hours. No results for input(s): RPR in the last 72 hours. No results for input(s): HIV in the last 72 hours. No results for input(s): BC in the last 72 hours. Lab Results Component Value Date/Time MUCUS TRACE 12/27/2021 11:20 AM RBC 3.60 01/11/2023 07:08 AM TRICHOMONAS NOT REPORTED 08/14/2021 10:00 AM WBC 5.7 01/11/2023 07:08 AM YEAST NOT REPORTED 08/14/2021 10:00 AM TURBIDITY Clear 01/10/2023 07:34 PM Lab Results Component Value Date/Time CREATININE 1.26 01/11/2023 07:08 AM GLUCOSE 195 01/11/2023 07:08 AM Medical Decision Making-Imaging: EXAMINATION: CT OF THE CHEST, ABDOMEN, AND PELVIS WITHOUT CONTRAST 01/10/2023 12:31 pm TECHNIQUE: CT of the chest, abdomen and pelvis was performed without the administration of intravenous contrast. Multiplanar reformatted images are provided for review. Automated exposure control, iterative reconstruction, and/or weight based adjustment of the mA/kV was utilized to reduce the radiation dose to as low as reasonably achievable. COMPARISON: 10/03/2022 HISTORY: ORDERING SYSTEM PROVIDED HISTORY: fall TECHNOLOGIST PROVIDED HISTORY: fall Decision Support Exception - unselect if not a suspected or confirmed emergency medical condition->Emergency Medical Condition (MA) FINDINGS: Chest: Mediastinum: No cardiomegaly or pericardial effusion. Moderate coronary artery calcifications. Mildly dilated main pulmonary artery suggesting pulmonary arterial hypertension. Scattered atherosclerotic calcifications of the thoracic aorta and great vessel origins. No mediastinal adenopathy appreciated. Lungs/pleura: Peripheral pulmonary fibrotic changes. Bibasilar dependent atelectasis. No superimposed dominant mass or consolidation. No effusion or pneumothorax. Soft Tissues/Bones: Multilevel disc disease. Fusion hardware within the lower cervical spine. No acute fracture or aggressive osseous lesion. Abdomen/Pelvis: Evaluation of the solid and hollow abdominal viscera is limited without intravenous contrast administration. Organs: Mild splenomegaly. Cholelithiasis without CT evidence of acute cholecystitis. Hepatic cirrhosis. Otherwise unremarkable. GI/Bowel: No acute obstruction. No appreciable bowel wall thickening. Probable constipation. No acute appendicitis. Pelvis: Within normal limits. Peritoneum/Retroperitoneum: No adenopathy. Moderate atherosclerotic calcification of the abdominal aorta and major branch vessels. Bones/Soft Tissues: No acute fracture or aggressive osseous lesion. Chronic L3 vertebral compression fracture with evidence of prior cement augmentation. IMPRESSION: 1. No acute traumatic process within the chest, abdomen and pelvis. 2. Hepatic cirrhosis with splenomegaly. 3. Cholelithiasis without CT evidence of acute cholecystitis. 4. Additional nonemergent findings, as above. Specimen Collected: 01/10/23 12:39 EDT Last Resulted: 01/10/23 13:24 EDT MRI CERVICAL SPINE WO CONTRAST Order: [id number] Status: Final result Visible to patient: Yes (not seen) Next appt: 01/13/2023 at 09:45 AM in Radiology ([facility]) 0 Result Notes Details Reading Physician Reading Date Result Priority Alex Myers MD [phone] 01/10/2023 Narrative & Impression EXAMINATION: MRI OF THE CERVICAL SPINE WITHOUT CONTRAST 01/10/2023 7:37 pm TECHNIQUE: Multiplanar multisequence MRI of the cervical spine was performed without the administration of intravenous contrast. COMPARISON: None. HISTORY: ORDERING SYSTEM PROVIDED HISTORY: atlantoaxial subluxation TECHNOLOGIST PROVIDED HISTORY: atlantoaxial subluxation Decision Support Exception - unselect if not a suspected or confirmed emergency medical condition->Emergency Medical Condition (MA) Reason for Exam: S/P Fall - atlantoaxial subluxation. FINDINGS: BONES/ALIGNMENT: There is anterior fixation at C5-C7 without complication. The vertebral body heights are maintained. The C1 and C2 lateral masses are aligned. There is age-appropriate bone marrow signal. There is multilevel degenerative disc disease at the remaining levels with loss of disc signal. There is no spondylolisthesis. SPINAL CORD: No abnormal cord signal is seen. SOFT TISSUES: No paraspinal mass identified. C2-C3: There is a disc osteophyte complex with uncovertebral hypertrophy. There is no canal stenosis or foraminal narrowing. C3-C4: There is a disc osteophyte complex with uncovertebral and facet hypertrophy. There is canal stenosis measuring 8 mm in AP dimension. There is severe bilateral foraminal narrowing. C4-C5: There is a disc osteophyte complex with uncovertebral and facet hypertrophy. There is no canal stenosis. There is moderate right and severe left foraminal narrowing. C5-C6: There is uncovertebral and facet hypertrophy. There is no canal stenosis. There is moderate foraminal narrowing. C6-C7: There is uncovertebral and facet hypertrophy. There is no canal stenosis. There is moderate right and severe left foraminal narrowing. C7-T1: There is a disc osteophyte complex with uncovertebral and facet hypertrophy. There is no canal stenosis or foraminal narrowing. IMPRESSION: No evidence for acute abnormality. The lateral masses at C1 and C2 are aligned. Multilevel degenerative change with canal stenosis at C3-4. Foraminal narrowing as described above. Specimen Collected: 01/10/23 19:48 EDT Last Resulted: 01/10/23 19:59 EDT Medical Decision [id number]: Contains abnormal data Culture, Urine Order: [id number] Status: Final result Visible to patient: Yes (not seen) Next appt: 01/28/2023 at 08:30 AM in Neurosurgery (Sosa Rodriguez DO) Specimen Information: Urine, clean catch 0 Result Notes Component 01/10/231933 Specimen Description .CLEAN CATCH URINE Culture ESCHERICHIA COLI >[id number] CFU/ML Abnormal Culture ESCHERICHIA COLI >314070 CFU/ML 2ND COLONY TYPE Abnormal Resulting Agency [facility] Susceptibility Escherichia coli (1) Antibiotic Interpretation Microscan Method Status ampicillin Intermediate 16 BACTERIAL SUSCEPTIBILITY PANEL ALEX Final ceFAZolin Sensitive <=4 BACTERIAL SUSCEPTIBILITY PANEL ALEX Final Cefazolin sensitivity results can be used to predict the effectiveness of oral cephalosporins (eg. Cephalexin) in uncomplicated Urinary Tract Infections due to E. coli, K. pneumoniae, and P. mirabilis cefTRIAXone Sensitive <=0.25 BACTERIAL SUSCEPTIBILITY PANEL ALEX Final Confirmatory Extended Spectrum Beta-Lactamase Sensitive NEGATIVE BACTERIAL SUSCEPTIBILITY PANEL ALEX Final gentamicin Sensitive <=1 BACTERIAL SUSCEPTIBILITY PANEL ALEX Final levofloxacin Sensitive <=0.12 BACTERIAL SUSCEPTIBILITY PANEL ALEX Final nitrofurantoin Sensitive <=16 BACTERIAL SUSCEPTIBILITY PANEL ALEX Final piperacillin-tazobactam Sensitive <=4 BACTERIAL SUSCEPTIBILITY PANEL ALEX Final tobramycin Sensitive <=1 BACTERIAL SUSCEPTIBILITY PANEL ALEX Final trimethoprim-sulfamethoxazole Sensitive <=20 BACTERIAL SUSCEPTIBILITY PANEL ALEX Final Escherichia coli (2) Antibiotic Interpretation Microscan Method Status ampicillin Intermediate 16 BACTERIAL SUSCEPTIBILITY PANEL LAEX Final ceFAZolin Sensitive <=4 BACTERIAL SUSCEPTIBILITY PANEL ALEX Final Cefazolin sensitivity results can be used to predict the effectiveness of oral cephalosporins (eg. Cephalexin) in uncomplicated Urinary Tract Infections due to E. coli, K. pneumoniae, and P. mirabilis cefTRIAXone Sensitive <=0.25 BACTERIAL SUSCEPTIBILITY PANEL ALEX Final Confirmatory Extended Spectrum Beta-Lactamase Sensitive NEGATIVE BACTERIAL SUSCEPTIBILITY PANEL ALEX Final gentamicin Sensitive <=1 BACTERIAL SUSCEPTIBILITY PANEL ALEX Final levofloxacin Sensitive <=0.12 BACTERIAL SUSCEPTIBILITY PANEL ALEX Final nitrofurantoin Sensitive <=16 BACTERIAL SUSCEPTIBILITY PANEL ALEX Final piperacillin-tazobactam Sensitive <=4 BACTERIAL SUSCEPTIBILITY PANEL ALEX Final tobramycin Sensitive <=1 BACTERIAL SUSCEPTIBILITY PANEL ALEX Final trimethoprim-sulfamethoxazole Sensitive <=20 BACTERIAL SUSCEPTIBILITY PANEL ALEX Final Condensed View Specimen Collected: 01/10/23 19:34 EDT Last Resulted: 01/13/23 11:28 EDT Medical Decision Making-Other: Note: Labs, medications, radiologic studies were reviewed with personal review of films Large amounts of data were reviewed Discussed with nursing Staff, business planner Infection Control and Prevention measures reviewed All prior entries were reviewed Administer medications as ordered Prognosis: Fair Discharge planning reviewed Follow up as outpatient. Thank you for allowing us to participate in the care of this patient. Please call with questions. Fred Hearn MD Pager: - Office: Images from the original note were not included. [facility] Office: [phone] Jason Baker DO, Demetri Johnson DO, Mehrdad Gibbs DO, Guy Grady DO, Mayte Boyer MD, Sarah Marroquin MD, Keren Dickson MD, Aletha Nuno MD, Landry Stahl MD, Lilibeth Umana MD, King Blackwell DO, Paul Scott MD, Liza Ward DO, Mary Lou Olvera MD, Abner Chisholm MD, Benjamin Baker DO, Janet Malcolm MD, Dejon Lemus MD, Roberto Payne DO, Shea Metaclf MD, Idalia Alexis MD, Audra Clark MD, Odessa Mccloud MD, Eren Turcios DO, Thee Richardson MD, Sondra Mcpherson, MABEL, Nisha Kaplan NEWSPAPER COPY EDITOR, Tulio Corbett CNP, Tamiko Palafox, NEWSPAPER COPY EDITOR, Daksha Hill, MARCIA, Jennifer Tadeo, NEWSPAPER COPY EDITOR, Emiyl Fonseca, NEWSPAPER COPY EDITOR, Karen Marin NEWSPAPER COPY EDITOR, Idalmis Diaz, NEWSPAPER COPY EDITOR, Shawna Arredondo, NEWSPAPER COPY EDITOR, LUIS ARMANDO Garcia-C, Ramsey Almanza, DRY ROLLER, Lila Santa, NEWSPAPER COPY EDITOR, Buffy Groves, NEWSPAPER COPY EDITOR [facility] IN-PATIENT SERVICE [facility] Progress Note 01/15/2023 9:19 AM Name: Angella Olson Acct: [id number] Room: [facility]0316- IP Day: 5 Admit Date: 01/10/2023 6:05 PM PCP: CELIA Garcia CNP Code Status: Full Code Subjective: C/C: Chief Complaint Patient presents with Fall C-1 and C-2 sublication, fall at [facility] Interval History Status: . Did not sleep well last night. No complaints today. Discussed care with son yesterday. Brief History: Patient lives in independent/assisted living. Patient was found on the floor with a head strike. Patient was transported [place] [facility] [place]up. EMR reviews reveal patient has been having abnormal behavior with more frequent falls over the past week or so. CT of the neck at [facility] shows possible malalignment of C1/C2. Patient was transported to this facility for trauma evaluation. Additional imaging was completed and malalignment was ruled out. Patient however does present with confusion. ED evaluation reveals UTI. Patient's symptoms are most likely acute encephalopathy secondary to UTI with ambulatory dysfunction. Review of Systems: Constitutional: negative for chills, fevers, sweats Respiratory: negative for cough, dyspnea on exertion, shortness of breath, wheezing Cardiovascular: negative for chest pain, chest pressure/discomfort, lower extremity edema, palpitations Gastrointestinal: negative for abdominal pain, constipation, diarrhea, nausea, vomiting Neurological: negative for dizziness, headache Medications: Allergies: Allergies Allergen Reactions Latex Shortness Of Breath and Rash Clindamycin/Lincomycin Anaphylaxis Erythromycin Base Anaphylaxis Fentanyl Anaphylaxis Gatifloxacin Anaphylaxis Indomethacin Shortness Of Breath, Nausea Only and Palpitations Iodine Tincture [Iodine] Shortness Of Breath, Itching and Swelling Pcn [Penicillins] Shortness Of Breath, Itching and Swelling Shellfish-Derived Products Shortness Of Breath, Itching and Swelling Sulfa Antibiotics Anaphylaxis Tetracyclines & Related Shortness Of Breath, Itching and Swelling Lidocaine Swelling Nitrofuran Derivatives Hives Phenazopyridine Hcl Hives Phenazopyridine Current Meds: Scheduled Meds: traZODone 50 mg Oral Nightly cephALEXin 500 mg Oral 4 times per day insulin lispro 0-8 Units SubCUTAneous TID WC insulin lispro 0-4 Units SubCUTAneous Nightly allopurinol 150 mg Oral Daily atenolol 50 mg Oral Daily atorvastatin 80 mg Oral Nightly divalproex 750 mg Oral Nightly ferrous sulfate 325 mg Oral Q48H FLUoxetine 40 mg Oral Daily budesonide-formoterol 2 puff Inhalation BID gabapentin 100 mg Oral BID lactulose 30 g Oral BID pantoprazole 40 mg Oral QAM AC spironolactone 25 mg Oral Daily trospium 20 mg Oral BID AC sodium chloride flush 5-40 mL IntraVENous 2 times per day heparin (porcine) 5,000 Units SubCUTAneous 3 times per day insulin glargine 20 Units SubCUTAneous BID Continuous Infusions: sodium chloride dextrose PRN Meds: sodium chloride flush, sodium chloride, ondansetron OR ondansetron, acetaminophen OR acetaminophen, polyethylene glycol, glucose, dextrose bolus OR dextrose bolus, glucagon (rDNA), dextrose, LORazepam Data: Past Medical History: has a past medical history of Anxiety, Arthritis, Bipolar disorder (HCC), Chronic congestive splenomegaly, COPD (chronic obstructive pulmonary disease) (HCC), Depression, Fibromyalgia, Hypertension, Liver disease, Non-alcoholic fatty liver disease, Obesity, Pulmonary fibrosis (HCC), 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 Social History: reports that she quit smoking about 13 years ago. Her smoking use included cigarettes. She has a 30.00 pack-year smoking history. She has never used smokeless tobacco. She reports that she does not drink alcohol and does not use drugs. Family History: Family History Problem Relation Age of Onset Other Mother Interstitial Pulmonary fibrosis. Other Son stomach issues-rapid onset diarrhea Vitals: BP 138/84 Pulse 68 Temp 98.2 F (36.8 C) (Oral) Resp 18 Ht 5' 4 (1.626 m) Wt 181 lb (82.1 kg) LMP (LMP Unknown) SpO2 97% BMI 31.07 kg/m Temp (24hrs), Av.1 F (36.7 C), Min:97.8 F (36.6 C), Max:98.4 F (36.9 C) Recent Labs 01/14/23 1132 01/14/23 1618 01/14/23 1902 01/15/23 0703 POCGLU 149* 170* 198* 174* I/O (24Hr): Intake/Output Summary (Last 24 hours) at 01/15/2023 0919 Last data filed at 01/15/2023 0625 Gross per 24 hour Intake 1465.88 ml Output 2800 ml Net -1334.12 ml Labs: Hematology: No results for input(s): WBC, RBC, HGB, HCT, MCV, MCH, MCHC, RDW, PLT, MPV, SEDRATE, CRP, INR, DDIMER, BR8YXDTW, LABABSO in the last 72 hours. Invalid input(s): PT Chemistry: No results for input(s): NA, K, CL, CO2, GLUCOSE, BUN, CREATININE, MG, ANIONGAP, LABGLOM, GFRAA, CALCIUM, CAION, PHOS, PSA, PROBNP, TROPHS, CKTOTAL, CKMB, CKMBINDEX, MYOGLOBIN, DIGOXIN, LACTACIDWB in the last 72 hours. Recent Labs 01/14/23 0827 01/14/23 0922 01/14/23 1132 01/14/23 1618 01/14/23 1902 01/15/23 0703 POCGLU 55* 105 149* 170* 198* 174* ABG: Lab Results Component Value Date/Time PHART 7.329 08/14/2021 09:12 AM [id number] 50.8 08/14/2021 09:12 AM PO2ART 85.6 08/14/2021 09:12 AM SSV7XIX 26.1 08/14/2021 09:12 AM NBEA 0.6 08/14/2021 09:12 AM PBEA NOT REPORTED 08/14/2021 09:12 AM [id number] 95.7 08/14/2021 09:12 AM FIO2 NOT REPORTED 08/14/2021 09:12 AM Lab Results Component Value Date/Time SPECIAL RT ARM 20 ML 12/29/2022 12:00 PM Lab Results Component Value Date/Time CULTURE ESCHERICHIA COLI >[id number] CFU/ML (A) 01/10/2023 07:34 PM CULTURE ESCHERICHIA COLI >596516 CFU/ML 2ND COLONY TYPE (A) 01/10/2023 07:34 PM Radiology: XR KNEE LEFT (3 VIEWS) Result Date: 01/10/2023 No acute osseous or soft tissue abnormality. XR ANKLE LEFT (MIN 3 VIEWS) Result Date: 01/10/2023 Mild soft tissue swelling without acute osseous abnormality. XR ANKLE RIGHT (MIN 3 VIEWS) Result Date: 01/10/2023 Diffuse soft tissue swelling without definite acute osseous abnormality. XR FOOT RIGHT (MIN 3 VIEWS) Result Date: 01/10/2023 No acute osseous or soft tissue abnormality. Diffuse degenerative joint disease. CT HEAD WO CONTRAST Result Date: 01/10/2023 No acute intracranial abnormality. CT HEAD WO CONTRAST Result Date: 01/10/2023 No acute transcortical infarct or intracranial hemorrhage. CT CERVICAL SPINE WO CONTRAST Result Date: 01/10/2023 New malalignment of the lateral masses of C1 and C2 elicited by patient's head turned towards the left during scanning, suggestive of rotatory atlantoaxial subluxation. Underlying instability is not excluded. No acute cervical spine fracture identified. MR follow-up may be useful as clinically warranted. MRI CERVICAL SPINE WO CONTRAST Result Date: 01/10/2023 No evidence for acute abnormality. The lateral masses at C1 and C2 are aligned. Multilevel degenerative change with canal stenosis at C3-4. Foraminal narrowing as described above. CT CHEST ABDOMEN PELVIS WO CONTRAST Additional Contrast? None Result Date: 01/10/2023 1. No acute traumatic process within the chest, abdomen and pelvis. 2. Hepatic cirrhosis with splenomegaly. 3. Cholelithiasis without CT evidence of acute cholecystitis. 4. Additional nonemergent findings, as above. CT LUMBAR SPINE TRAUMA RECONSTRUCTION Result Date: 01/10/2023 Remote compression deformity at L3 status post kyphoplasty. No acute vertebral body or disc space abnormality. Dependent infiltrates in the lung bases. CT THORACIC SPINE TRAUMA RECONSTRUCTION Result Date: 01/10/2023 No acute fracture or malalignment of the thoracic spine. Dependent infiltrates that may represent atelectasis. Physical Examination: General appearance: alert, cooperative and no distress Mental Status: oriented to person, place and time and normal affect Lungs: clear to auscultation bilaterally, normal effort Heart: regular rate and rhythm, no murmur Abdomen: soft, nontender, nondistended, normal bowel sounds, no masses, hepatomegaly, splenomegaly Extremities: no edema, redness, tenderness in the calves Skin: no gross lesions, rashes, induration Assessment: Hospital Problems Last Modified POA * (Principal) UTI (urinary tract infection) 01/10/2023 Yes Hepatic encephalopathy (HCC) 01/11/2023 Yes Non-alcoholic fatty liver disease 01/11/2023 Yes Stage 3 chronic kidney disease (HCC) 01/11/2023 Yes Essential hypertension 01/11/2023 Yes Type 2 diabetes mellitus, with long-term current use of insulin (HCC) 01/11/2023 Yes Gastroesophageal reflux disease 01/11/2023 Yes COPD (chronic obstructive pulmonary disease) (HCC) 01/11/2023 Yes Cervical spondylosis 01/11/2023 Yes Fall 01/12/2023 Yes Allergy to multiple antibiotics 01/12/2023 Yes Chronic congestive splenomegaly 01/12/2023 Yes H/O anaphylactic shock 01/12/2023 Yes Biliary cirrhosis (HCC) 01/12/2023 Yes E. coli UTI 01/12/2023 Yes Plan: UTI Toxic metabolic encephalopathy NAFLD NIDDM Patient doing well today, now on cephalexin. Needs SNF placement. DC ready once placement found Added trazodone for tonight Still awaiting placement, dc lasix d/t poor fluid intake and multiple episodes of SUAD +dehydration King Blackwell DO 01/15/2023 9:19 AM Physical Therapy Facility/Department: [facility] RENAL//MED SURG Daily Treatment Note NAME: Angella Olson : 1955 Date of Service: 01/14/2023 Chief Complaint Patient presents with Fall C-1 and C-2 sublication, fall at [facility] Discharge Recommendations: Patient would benefit from continued therapy after discharge Patient Diagnosis(es): The primary encounter diagnosis was Fall, initial encounter. Diagnoses of Acute cystitis without hematuria and Encephalopathy were also pertinent to this visit. Assessment Assessment: Pt presents with pain limiting funcitonal mobilty,able to completed Bed mobility CGA/min A, Transfers:CGA. with RW, Gait CGA with RW, completed bed rom/exercises with cues needed to stay on task. Pt will continue to beneifit from PT to progress activity and promote functional independence. Activity Tolerance: Patient limited by fatigue;Patient limited by endurance;Treatment limited secondary to decreased cognition Plan Physcial Therapy Plan General Plan: (5-6x/wk) Current Treatment Recommendations: Strengthening;Balance training;Functional mobility training;Transfer training;Gait training;Stair training;Neuromuscular re-education;Home exercise program;Safety education & training;Patient/Caregiver education & training;Equipment evaluation, education, & procurement;Therapeutic activities;Endurance training Restrictions Restrictions/Precautions Restrictions/Precautions: General Precautions Required Braces or Orthoses?: No Position Activity Restriction Other position/activity restrictions: Ambulate pt, Up w/ assist. CTLS cleared 01/10 by Daniel Plata. Subjective Subjective Subjective: Pt awake and alert and in agreement with PT intervention,.okay per RN to see Pain: 10/10 left side of body Pain , nurse notified and addressed medicated prior to tx Orientation Overall Orientation Status: Impaired Orientation Level: Disoriented to situation;Oriented to person;Disoriented to place;Oriented to situation Cognition Overall Cognitive Status: Exceptions Arousal/Alertness: Inconsistent responses to stimuli Following Commands: Follows multistep commands with increased time;Follows multistep commands with repitition Attention Span: Attends with cues to redirect Safety Judgement: Decreased awareness of need for assistance Problem Solving: Assistance required to implement solutions;Assistance required to generate solutions Insights: Decreased awareness of deficits Initiation: Requires cues for all Sequencing: Requires cues for all Cognition Comment: Pt is pleasent and coopertative , understands that she is confused with word finding difficulty , able to follow commands Objective Vitals Bed Mobility Training Bed Mobility Training: Yes Overall Level of Assistance: Minimum assistance;Additional time Interventions: Verbal cues;Safety awareness training Rolling: Stand-by assistance;Assist X1;Supervision Supine to Sit: Minimum assistance;Additional time Sit to Supine: Contact-guard assistance;Additional time Scooting: Contact-guard assistance;Additional time Balance Sitting: Intact Standing: With support Transfer Training Transfer Training: Yes Overall Level of Assistance: Contact-guard assistance;Adaptive equipment;Additional time Interventions: Safety awareness training;Verbal cues Sit to Stand: Contact-guard assistance;Adaptive equipment;Additional time Stand to Sit: Contact-guard assistance;Adaptive equipment;Additional time Stand Pivot Transfers: Assist X1;Additional time;Stand-by assistance Bed to Chair: Contact-guard assistance;Assist X1 Gait Training Gait Training: Yes Right Side Weight Bearing: As tolerated Left Side Weight Bearing: As tolerated Gait Overall Level of Assistance: Contact-guard assistance;Adaptive equipment;Additional time Interventions: Verbal cues;Demonstration Speed/Kayla: Delayed;Slow Step Length: Right shortened;Left shortened Stance: Right increased;Left increased Gait Abnormalities: Shuffling gait;Decreased step clearance;Other (comment);Antalgic Distance (ft): 30 Feet Assistive Device: Walker, rolling Wheelchair Management Wheelchair Management: No Neuromuscular Education Neuromuscular Education: Yes Functional Movement Patterns: standing balance activity with focus on posure, hand and foot placement with use of walker while moving in small spaces PT Exercises Exercise Treatment: Pt instructed in bilateral LE ROM in sitting and sypine with pt completing 10 reps each, assist needed to complete task pt is easily distracted Dynamic Standing Balance Exercises: Pt performed static and dynamic standing during toilet transfer with single Safety Devices Type of Devices: Gait belt;Left in bed;Call light within reach;Bed alarm in place;All fall risk precautions in place;Patient at risk for falls;Nurse notified Restraints Restraints Initially in Place: No Goals Short Term Goals Time Frame for Short Term Goals: 10 visits Short Term Goal 1: Pt will be Junito in all bed mobility tasks Short Term Goal 2: Pt will be Junito for transfers Short Term Goal 3: Pt will amb 200' CGA w/ RW or least restrictive device Short Term Goal 4: Pt will be CGA in negotiation of 1 step w/out rail use. AM-PAC Inpatient Mobility Raw Score 17 Education Patient Education Education Given To: Patient Education Provided: Role of Therapy;Plan of Care;Transfer Training;Home Exercise Program;Precautions;Fall Prevention Strategies Education Provided Comments: pt educated on safety with use of RW with focus on hand and foot placment with transfers and upon initial stand from sitting Education Method: Demonstration;Verbal Barriers to Learning: Cognition Education Outcome: Verbalized understanding;Continued education needed Therapy Time Individual Concurrent Group Co-treatment Time In 1513 Time Out 1558 Minutes 45 Timed Code Treatment Minutes: 45 Minutes Luly Goldman PT, DPT Images from the original note were not included. [facility] - Progress Note Today's Date and Time: 01/14/2023, 11:58 AM Impression : UTI E coli x 2 different strains S/P Fall Multiple severe allergies. Anaphylaxis with Clindamycin, erythromycin, quinolones, sulfa, tetracycline Has tolerated ceftriaxone so far Cirrhosis of liver Splenomegaly Recommendations: She has two strains of E coli . Both strains are Sensitive to cephalosporins. Cephalexin 500 mg po qid . Stop date 01-20-23 Medical Decision Making/Summary/Discussion:01/14/2023 Infection Control Recommendations [place] Precautions Antimicrobial Stewardship Recommendations Simplification of therapy Targeted therapy Coordination of Outpatient Care: Estimated Length of IV antimicrobials: 01-14-23 Patient will need Midline Catheter Insertion: No Patient will need PICC line Insertion:No Patient will need: Home IV , Infusion Center, SNF, LTAC: TBD Patient will need outpatient wound care:No Chief complaint/reason for consultation: UTI Multiple serious allergies History of Present Illness: Angella Olson is a 67 y.o.-year-old female who was initially admitted on 01/10/2023. Patient seen at the request of Dr. Lemus. 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 In addition she has multiple severe allergies including anaphylaxis to Clindamycin, erythromycin, quinolones, sulfa, tetracycline, penicillins. She resides in an assisted living facility. She was found on the floor, confused . Hx of a few falls over the past several days. Patient evaluated at an outlying hospital where there was concern with malignment of C spine. This was later excluded. Patient transferred to [facility] where she was felt to have a UTI with possible infection related confusion. Urine cultures have shown 2 strains of E coli >100,000 cfu/ml . Patient has received treatment with Ceftriaxone with some improvement in mentation. However, she remains pleasantly confused during my exam. So far she has tolerated Rocephin. CURRENT EVALUATION :01/14/2023 Afebrile VS stable Patient feels better No complaints No new issues per RN Assisted living feels it is not safe for her to continue with that modality because of recurrent falls. Placement efforts underway Medications reviewed On Keflex po X 7 days Labs, X rays reviewed: 01/14/2023 BUN: 15 Cr: 1.26 WBC: 5.7 Hb:11.5 Plat: 104 Cultures: Urine: 01-10-23: E coli x 2 strains Blood: Sputum : Wound: Discussed with patient, RN, IM. I have personally reviewed the past medical history, past surgical history, medications, social history, and family history, and I have updated the database accordingly. 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 BACK SURGERY Donor cervical fusion. SECTION [address]Eric Sandoval-gastro in [place], [place]-unsure when ESOPHAGOGASTRODUODENOSCOPY 10/2021 [facility] ESOPHAGOGASTRODUODENOSCOPY 06/2021 [facility] EYE SURGERY Retinal surgery. KYPHOSIS SURGERY 10/06/2022 [facility] Left 12/2019 Left middle finger. OTHER SURGICAL HISTORY Removal of mass from left mid arm. OTHER SURGICAL HISTORY OTHER SURGICAL HISTORY Right NERVE RADIOFREQUENCY ABLATION-L3,4,5 (Right: Back)- Dr. Watts PAIN MANAGEMENT PROCEDURE Bilateral 11/26/2021 LUMBAR FACET - L4-5 L5-SI performed by Darell Watts MD at [facility] OR PAIN MANAGEMENT PROCEDURE Bilateral 01/21/2022 LUMBAR FACET - L4-5, L5-S1 performed by Darell Watts MD at [facility] OR PAIN MANAGEMENT PROCEDURE Right 03/18/2022 NERVE RADIOFREQUENCY ABLATION-L3,4,5 performed by Darell Watts MD at [facility] OR PAIN MANAGEMENT PROCEDURE N/A 06/10/2022 EPIDURAL STEROID INJECTION- L5-SI, RIGHT OF MIDLINE performed by Darell Watts MD at [facility] OR SPINE SURGERY N/A 10/06/2022 KYPHOPLASTY - L3 performed by Sosa Rodriguez DO at [facility] OR UPPER GASTROINTESTINAL ENDOSCOPY [facility] unsure when Medications: cephALEXin 500 mg Oral 4 times per day insulin lispro 0-8 Units SubCUTAneous TID WC insulin lispro 0-4 Units SubCUTAneous Nightly allopurinol 150 mg Oral Daily atenolol 50 mg Oral Daily atorvastatin 80 mg Oral Nightly divalproex 750 mg Oral Nightly ferrous sulfate 325 mg Oral Q48H FLUoxetine 40 mg Oral Daily budesonide-formoterol 2 puff Inhalation BID furosemide 20 mg Oral Daily gabapentin 100 mg Oral BID lactulose 30 g Oral BID pantoprazole 40 mg Oral QAM AC spironolactone 25 mg Oral Daily trospium 20 mg Oral BID AC sodium chloride flush 5-40 mL IntraVENous 2 times per day heparin (porcine) 5,000 Units SubCUTAneous 3 times per day insulin glargine 20 Units SubCUTAneous BID Social History: Social History Socioeconomic History Marital status: Spouse name: Not on file Number of children: 1 Years of education: 19 Highest education level: Not on file Occupational History Not on file Tobacco Use Smoking status: Former Packs/day: 1.00 Years: 30.00 Pack years: 30.00 Types: Cigarettes Quit date: 2009 Years since quittin.4 Smokeless tobacco: Never Vaping Use Vaping Use: Never used Substance and Sexual Activity Alcohol use: Never Drug use: Never Sexual activity: Not Currently Other Topics Concern Not on file Social History Narrative Not on file Social Determinants of Health Financial Resource Strain: Low Risk Difficulty of Paying Living Expenses: Not hard at all Food Insecurity: No Food Insecurity Worried About Running Out of Food in the Last Year: Never true Ran Out of Food in the Last Year: Never true Transportation Needs: Not on file Physical Activity: Inactive Days of Exercise per Week: 0 days Minutes of Exercise per Session: 0 min Stress: Not on file Social Connections: Not on file Intimate Partner Violence: Not on file Housing Stability: Not on file Family History: Family History Problem Relation Age of Onset Other Mother Interstitial Pulmonary fibrosis. Other Son stomach issues-rapid onset diarrhea Allergies: Latex, Clindamycin/lincomycin, Erythromycin base, Fentanyl, Gatifloxacin, Indomethacin, Iodine tincture [iodine], Pcn [penicillins], Shellfish-derived products, Sulfa antibiotics, Tetracyclines & related, Lidocaine, Nitrofuran derivatives, Phenazopyridine hcl, and Phenazopyridine Review of Systems: Constitutional: No fevers or chills. No systemic complaints Head: No headaches Eyes: No double vision or blurry vision. No conjunctival inflammation. ENT: No sore throat or runny nose.. No hearing loss, tinnitus or vertigo. Cardiovascular: No chest pain or palpitations.No shortness of breath. No BAILEY Lung: No shortness of breath or cough. No sputum production Abdomen: No nausea, vomiting, diarrhea, or abdominal pain.. No cramps. Genitourinary: No increased urinary frequency, or dysuria. No hematuria. No suprapubic or CVA pain Musculoskeletal: No muscle aches or pains. No joint effusions, swelling or deformities Hematologic: No bleeding or bruising. Neurologic: No headache, weakness, numbness, or tingling.Confusion Integument: No rash, no ulcers. Psychiatric: No depression. Endocrine: No polyuria, no polydipsia, no polyphagia. Physical Examination : Patient Vitals for the past 8 hrs: BP Temp Temp src Pulse Resp SpO2 Weight 01/14/23 1130 (!) 144/75 97.8 F (36.6 C) Oral 72 18 95 % -- 01/14/23 0853 -- -- -- -- -- 93 % -- 01/14/23 0800 (!) 149/95 98.2 F (36.8 C) Oral 83 18 -- -- 01/14/23 0453 -- -- -- -- -- -- 181 lb (82.1 kg) General Appearance: Awake, alert, and in no apparent distress Head: Normocephalic, no trauma Eyes: Pupils equal, round, reactive to light and accommodation; extraocular movements intact; sclera anicteric; conjunctivae pink. No embolic phenomena. ENT: Oropharynx clear, without erythema, exudate, or thrush. No tenderness of sinuses. Mouth/throat: mucosa pink and moist. No lesions. Dentition in good repair. Neck:Supple, without lymphadenopathy. Thyroid normal, No bruits. Pulmonary/Chest: Clear to auscultation, without wheezes, rales, or rhonchi. No dullness to percussion. Cardiovascular: Regular rate and rhythm without murmurs, rubs, or gallops. Abdomen: Soft, non tender. Bowel sounds normal. No organomegaly All four Extremities: No cyanosis, clubbing, edema, or effusions. Neurologic: No gross sensory or motor deficits. Has some degree of confusion Skin: Warm and dry with good turgor.No signs of peripheral arterial or venous insufficiency. No ulcerations. No open wounds. Medical Decision Making -Laboratory: I have independently reviewed/ordered the following labs: CBC with Differential: No results for input(s): WBC, HGB, HCT, PLT, SEGSPCT, BANDSPCT, LYMPHOPCT, MONOPCT, EOSPCT in the last 72 hours. BMP: No results for input(s): NA, K, CL, CO2, BUN, CREATININE, CA, MG in the last 72 hours. Hepatic Function Panel: No results for input(s): PROT, LABALBU, BILIDIR, IBILI, BILITOT, ALKPHOS, ALT, AST in the last 72 hours. No results for input(s): RPR in the last 72 hours. No results for input(s): HIV in the last 72 hours. No results for input(s): BC in the last 72 hours. Lab Results Component Value Date/Time MUCUS TRACE 12/27/2021 11:20 AM RBC 3.60 01/11/2023 07:08 AM TRICHOMONAS NOT REPORTED 08/14/2021 10:00 AM WBC 5.7 01/11/2023 07:08 AM YEAST NOT REPORTED 08/14/2021 10:00 AM TURBIDITY Clear 01/10/2023 07:34 PM Lab Results Component Value Date/Time CREATININE 1.26 01/11/2023 07:08 AM GLUCOSE 195 01/11/2023 07:08 AM Medical Decision Making-Imaging: EXAMINATION: CT OF THE CHEST, ABDOMEN, AND PELVIS WITHOUT CONTRAST 01/10/2023 12:31 pm TECHNIQUE: CT of the chest, abdomen and pelvis was performed without the administration of intravenous contrast. Multiplanar reformatted images are provided for review. Automated exposure control, iterative reconstruction, and/or weight based adjustment of the mA/kV was utilized to reduce the radiation dose to as low as reasonably achievable. COMPARISON: 10/03/2022 HISTORY: ORDERING SYSTEM PROVIDED HISTORY: fall TECHNOLOGIST PROVIDED HISTORY: fall Decision Support Exception - unselect if not a suspected or confirmed emergency medical condition->Emergency Medical Condition (MA) FINDINGS: Chest: Mediastinum: No cardiomegaly or pericardial effusion. Moderate coronary artery calcifications. Mildly dilated main pulmonary artery suggesting pulmonary arterial hypertension. Scattered atherosclerotic calcifications of the thoracic aorta and great vessel origins. No mediastinal adenopathy appreciated. Lungs/pleura: Peripheral pulmonary fibrotic changes. Bibasilar dependent atelectasis. No superimposed dominant mass or consolidation. No effusion or pneumothorax. Soft Tissues/Bones: Multilevel disc disease. Fusion hardware within the lower cervical spine. No acute fracture or aggressive osseous lesion. Abdomen/Pelvis: Evaluation of the solid and hollow abdominal viscera is limited without intravenous contrast administration. Organs: Mild splenomegaly. Cholelithiasis without CT evidence of acute cholecystitis. Hepatic cirrhosis. Otherwise unremarkable. GI/Bowel: No acute obstruction. No appreciable bowel wall thickening. Probable constipation. No acute appendicitis. Pelvis: Within normal limits. Peritoneum/Retroperitoneum: No adenopathy. Moderate atherosclerotic calcification of the abdominal aorta and major branch vessels. Bones/Soft Tissues: No acute fracture or aggressive osseous lesion. Chronic L3 vertebral compression fracture with evidence of prior cement augmentation. IMPRESSION: 1. No acute traumatic process within the chest, abdomen and pelvis. 2. Hepatic cirrhosis with splenomegaly. 3. Cholelithiasis without CT evidence of acute cholecystitis. 4. Additional nonemergent findings, as above. Specimen Collected: 01/10/23 12:39 EDT Last Resulted: 01/10/23 13:24 EDT MRI CERVICAL SPINE WO CONTRAST Order: [id number] Status: Final result Visible to patient: Yes (not seen) Next appt: 01/13/2023 at 09:45 AM in Radiology ([facility]) 0 Result Notes Details Reading Physician Reading Date Result Priority Alex yMers MD [phone] 01/10/2023 Narrative & Impression EXAMINATION: MRI OF THE CERVICAL SPINE WITHOUT CONTRAST 01/10/2023 7:37 pm TECHNIQUE: Multiplanar multisequence MRI of the cervical spine was performed without the administration of intravenous contrast. COMPARISON: None. HISTORY: ORDERING SYSTEM PROVIDED HISTORY: atlantoaxial subluxation TECHNOLOGIST PROVIDED HISTORY: atlantoaxial subluxation Decision Support Exception - unselect if not a suspected or confirmed emergency medical condition->Emergency Medical Condition (MA) Reason for Exam: S/P Fall - atlantoaxial subluxation. FINDINGS: BONES/ALIGNMENT: There is anterior fixation at C5-C7 without complication. The vertebral body heights are maintained. The C1 and C2 lateral masses are aligned. There is age-appropriate bone marrow signal. There is multilevel degenerative disc disease at the remaining levels with loss of disc signal. There is no spondylolisthesis. SPINAL CORD: No abnormal cord signal is seen. SOFT TISSUES: No paraspinal mass identified. C2-C3: There is a disc osteophyte complex with uncovertebral hypertrophy. There is no canal stenosis or foraminal narrowing. C3-C4: There is a disc osteophyte complex with uncovertebral and facet hypertrophy. There is canal stenosis measuring 8 mm in AP dimension. There is severe bilateral foraminal narrowing. C4-C5: There is a disc osteophyte complex with uncovertebral and facet hypertrophy. There is no canal stenosis. There is moderate right and severe left foraminal narrowing. C5-C6: There is uncovertebral and facet hypertrophy. There is no canal stenosis. There is moderate foraminal narrowing. C6-C7: There is uncovertebral and facet hypertrophy. There is no canal stenosis. There is moderate right and severe left foraminal narrowing. C7-T1: There is a disc osteophyte complex with uncovertebral and facet hypertrophy. There is no canal stenosis or foraminal narrowing. IMPRESSION: No evidence for acute abnormality. The lateral masses at C1 and C2 are aligned. Multilevel degenerative change with canal stenosis at C3-4. Foraminal narrowing as described above. Specimen Collected: 01/10/23 19:48 EDT Last Resulted: 01/10/23 19:59 EDT Medical Decision [id number]-[id number]-Frbtc: Contains abnormal data Culture, Urine Order: [id number] Status: Final result Visible to patient: Yes (not seen) Next appt: 01/28/2023 at 08:30 AM in Neurosurgery (Sosa Rodriguez DO) Specimen Information: Urine, clean catch 0 Result Notes Component 01/10/231933 Specimen Description .CLEAN CATCH URINE Culture ESCHERICHIA COLI >[id number] CFU/ML Abnormal Culture ESCHERICHIA COLI >[id number] CFU/ML 2ND COLONY TYPE Abnormal Resulting Agency [facility] [place] Susceptibility Escherichia coli (1) Antibiotic Interpretation Microscan Method Status ampicillin Intermediate 16 BACTERIAL SUSCEPTIBILITY PANEL ALEX Final ceFAZolin Sensitive <=4 BACTERIAL SUSCEPTIBILITY PANEL ALEX Final Cefazolin sensitivity results can be used to predict the effectiveness of oral cephalosporins (eg. Cephalexin) in uncomplicated Urinary Tract Infections due to E. coli, K. pneumoniae, and P. mirabilis cefTRIAXone Sensitive <=0.25 BACTERIAL SUSCEPTIBILITY PANEL ALEX Final Confirmatory Extended Spectrum Beta-Lactamase Sensitive NEGATIVE BACTERIAL SUSCEPTIBILITY PANEL ALEX Final gentamicin Sensitive <=1 BACTERIAL SUSCEPTIBILITY PANEL ALEX Final levofloxacin Sensitive <=0.12 BACTERIAL SUSCEPTIBILITY PANEL ALEX Final nitrofurantoin Sensitive <=16 BACTERIAL SUSCEPTIBILITY PANEL ALEX Final piperacillin-tazobactam Sensitive <=4 BACTERIAL SUSCEPTIBILITY PANEL ALEX Final tobramycin Sensitive <=1 BACTERIAL SUSCEPTIBILITY PANEL ALEX Final trimethoprim-sulfamethoxazole Sensitive <=20 BACTERIAL SUSCEPTIBILITY PANEL ALEX Final Escherichia coli (2) Antibiotic Interpretation Microscan Method Status ampicillin Intermediate 16 BACTERIAL SUSCEPTIBILITY PANEL ALEX Final ceFAZolin Sensitive <=4 BACTERIAL SUSCEPTIBILITY PANEL ALEX Final Cefazolin sensitivity results can be used to predict the effectiveness of oral cephalosporins (eg. Cephalexin) in uncomplicated Urinary Tract Infections due to E. coli, K. pneumoniae, and P. mirabilis cefTRIAXone Sensitive <=0.25 BACTERIAL SUSCEPTIBILITY PANEL ALEX Final Confirmatory Extended Spectrum Beta-Lactamase Sensitive NEGATIVE BACTERIAL SUSCEPTIBILITY PANEL ALEX Final gentamicin Sensitive <=1 BACTERIAL SUSCEPTIBILITY PANEL ALEX Final levofloxacin Sensitive <=0.12 BACTERIAL SUSCEPTIBILITY PANEL ALEX Final nitrofurantoin Sensitive <=16 BACTERIAL SUSCEPTIBILITY PANEL ALEX Final piperacillin-tazobactam Sensitive <=4 BACTERIAL SUSCEPTIBILITY PANEL ALEX Final tobramycin Sensitive <=1 BACTERIAL SUSCEPTIBILITY PANEL ALEX Final trimethoprim-sulfamethoxazole Sensitive <=20 BACTERIAL SUSCEPTIBILITY PANEL ALEX Final Condensed View Specimen Collected: 01/10/23 19:34 EDT Last Resulted: 01/13/23 11:28 EDT Medical Decision Making-Other: Note: Labs, medications, radiologic studies were reviewed with personal review of films Large amounts of data were reviewed Discussed with nursing Staff, business planner Infection Control and Prevention measures reviewed All prior entries were reviewed Administer medications as ordered Prognosis: Fair Discharge planning reviewed Follow up as outpatient. Thank you for allowing us to participate in the care of this patient. Please call with questions. rFed Hearn MD Pager: - Office: Images from the original note were not included. [facility] Office: [phone] Jason Baker DO, Demetri Johnson DO, Mehrdad Gibbs DO, Guy Grady DO, Mayte Boyer MD, Sarah Marroquin MD, Keren Dickson MD, Aletha Nuno MD, Landry Stahl MD, Lilibeth Umana MD, King Blackwell DO, Paul Scott MD, Liza Ward DO, Mary Lou Olvera MD, Abner Chisholm MD, Benjamin Baker DO, Janet Malcolm MD, Dejon Lemus MD, Roberto Payne DO, Shea Metcalf MD, Idalia Alexis MD, Audra Clark MD, Odessa Mccloud MD, Eren Turcios DO, Thee Richardson MD, Sondra Mcpherson CNP, Nisha Kaplan CNP, Tulio Corbett CNP, Tamiko Palafox CNP, Daksha Hill DNP, Jennifer Tadeo, MABEL, Emily Fonseca CNP, Karen Marin CNP, Idalmis Diaz CNP, Shawna Arredondo CNP, Chris Walker PA-C, Ramsey Almanza, JENNIFER, Lila Santa CNP, Buffy Groves CNP [facility] IN-PATIENT SERVICE [facility] Progress Note 01/14/2023 11:31 AM Name: Angella Olson Acct: [id number] Room: [address] [place] [address] Day: 4 Admit Date: 01/10/2023 6:05 PM PCP: CELIA Garcia CNP Code Status: Full Code Subjective: C/C: Chief Complaint Patient presents with Fall C-1 and C-2 sublication, fall at [facility] Interval History Status: . Patient doing well today, no complaints. Spoke with son. Brief History: Patient lives in independent/assisted living. Patient was found on the floor with a head strike. Patient was [facility] [place] [facility] [place]. EMR reviews reveal patient has been having abnormal behavior with more frequent falls over the past week or so. CT of the neck at [facility] shows possible malalignment of C1/C2. Patient was transported to this facility for trauma evaluation. Additional imaging was completed and malalignment was ruled out. Patient however does present with confusion. ED evaluation reveals UTI. Patient's symptoms are most likely acute encephalopathy secondary to UTI with ambulatory dysfunction. Review of Systems: Constitutional: negative for chills, fevers, sweats Respiratory: negative for cough, dyspnea on exertion, shortness of breath, wheezing Cardiovascular: negative for chest pain, chest pressure/discomfort, lower extremity edema, palpitations Gastrointestinal: negative for abdominal pain, constipation, diarrhea, nausea, vomiting Neurological: negative for dizziness, headache Medications: Allergies: Allergies Allergen Reactions Latex Shortness Of Breath and Rash Clindamycin/Lincomycin Anaphylaxis Erythromycin Base Anaphylaxis Fentanyl Anaphylaxis Gatifloxacin Anaphylaxis Indomethacin Shortness Of Breath, Nausea Only and Palpitations Iodine Tincture [Iodine] Shortness Of Breath, Itching and Swelling Pcn [Penicillins] Shortness Of Breath, Itching and Swelling Shellfish-Derived Products Shortness Of Breath, Itching and Swelling Sulfa Antibiotics Anaphylaxis Tetracyclines & Related Shortness Of Breath, Itching and Swelling Lidocaine Swelling Nitrofuran Derivatives Hives Phenazopyridine Hcl Hives Phenazopyridine Current Meds: Scheduled Meds: cephALEXin 500 mg Oral 4 times per day insulin lispro 0-8 Units SubCUTAneous TID WC insulin lispro 0-4 Units SubCUTAneous Nightly allopurinol 150 mg Oral Daily atenolol 50 mg Oral Daily atorvastatin 80 mg Oral Nightly divalproex 750 mg Oral Nightly ferrous sulfate 325 mg Oral Q48H FLUoxetine 40 mg Oral Daily budesonide-formoterol 2 puff Inhalation BID furosemide 20 mg Oral Daily gabapentin 100 mg Oral BID lactulose 30 g Oral BID pantoprazole 40 mg Oral QAM AC spironolactone 25 mg Oral Daily trospium 20 mg Oral BID AC sodium chloride flush 5-40 mL IntraVENous 2 times per day heparin (porcine) 5,000 Units SubCUTAneous 3 times per day insulin glargine 20 Units SubCUTAneous BID Continuous Infusions: sodium chloride dextrose PRN Meds: sodium chloride flush, sodium chloride, ondansetron OR ondansetron, acetaminophen OR acetaminophen, polyethylene glycol, glucose, dextrose bolus OR dextrose bolus, glucagon (rDNA), dextrose, LORazepam Data: Past Medical History: has a past medical history of Anxiety, Arthritis, Bipolar disorder (HCC), Chronic congestive splenomegaly, COPD (chronic obstructive pulmonary disease) (HCC), Depression, Fibromyalgia, Hypertension, Liver disease, Non-alcoholic fatty liver disease, Obesity, Pulmonary fibrosis (HCC), 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 Social History: reports that she quit smoking about 13 years ago. Her smoking use included cigarettes. She has a 30.00 pack-year smoking history. She has never used smokeless tobacco. She reports that she does not drink alcohol and does not use drugs. Family History: Family History Problem Relation Age of Onset Other Mother Interstitial Pulmonary fibrosis. Other Son stomach issues-rapid onset diarrhea Vitals: BP (!) 149/95 Pulse 83 Temp 98.2 F (36.8 C) (Oral) Resp 18 Wt 181 lb (82.1 kg) LMP (LMP Unknown) SpO2 93% BMI 31.07 kg/m Temp (24hrs), Av.9 F (36.6 C), Min:97.2 F (36.2 C), Max:98.2 F (36.8 C) Recent Labs 01/13/23 1548 01/13/23 1856 01/14/23 0827 01/14/23 0922 POCGLU 130* 108* 55* 105 I/O (24Hr): Intake/Output Summary (Last 24 hours) at 01/14/2023 1131 Last data filed at 01/14/2023 0600 Gross per 24 hour Intake 3655.39 ml Output 1050 ml Net 2605.39 ml Labs: Hematology: No results for input(s): WBC, RBC, HGB, HCT, MCV, MCH, MCHC, RDW, PLT, MPV, SEDRATE, CRP, INR, DDIMER, QO6AFRQN, LABABSO in the last 72 hours. Invalid input(s): PT Chemistry: No results for input(s): NA, K, CL, CO2, GLUCOSE, BUN, CREATININE, MG, ANIONGAP, LABGLOM, GFRAA, CALCIUM, CAION, PHOS, PSA, PROBNP, TROPHS, CKTOTAL, CKMB, CKMBINDEX, MYOGLOBIN, DIGOXIN, LACTACIDWB in the last 72 hours. Recent Labs 01/13/23 0741 01/13/23 1125 01/13/23 1548 01/13/23 1856 01/14/23 0827 01/14/23 0922 POCGLU 118* 219* 130* 108* 55* 105 ABG: Lab Results Component Value Date/Time PHART 7.329 08/14/2021 09:12 AM [id number] 50.8 08/14/2021 09:12 AM PO2ART 85.6 08/14/2021 09:12 AM EAB8EHT 26.1 08/14/2021 09:12 AM NBEA 0.6 08/14/2021 09:12 AM PBEA NOT REPORTED 08/14/2021 09:12 AM B5RTVFHS 95.7 08/14/2021 09:12 AM FIO2 NOT REPORTED 08/14/2021 09:12 AM Lab Results Component Value Date/Time SPECIAL RT ARM 20 ML 12/29/2022 12:00 PM Lab Results Component Value Date/Time CULTURE ESCHERICHIA COLI >[id number] CFU/ML (A) 01/10/2023 07:34 PM CULTURE ESCHERICHIA COLI >397681 CFU/ML 2ND COLONY TYPE (A) 01/10/2023 07:34 PM Radiology: XR KNEE LEFT (3 VIEWS) Result Date: 01/10/2023 No acute osseous or soft tissue abnormality. XR ANKLE LEFT (MIN 3 VIEWS) Result Date: 01/10/2023 Mild soft tissue swelling without acute osseous abnormality. XR ANKLE RIGHT (MIN 3 VIEWS) Result Date: 01/10/2023 Diffuse soft tissue swelling without definite acute osseous abnormality. XR FOOT RIGHT (MIN 3 VIEWS) Result Date: 01/10/2023 No acute osseous or soft tissue abnormality. Diffuse degenerative joint disease. CT HEAD WO CONTRAST Result Date: 01/10/2023 No acute intracranial abnormality. CT HEAD WO CONTRAST Result Date: 01/10/2023 No acute transcortical infarct or intracranial hemorrhage. CT CERVICAL SPINE WO CONTRAST Result Date: 01/10/2023 New malalignment of the lateral masses of C1 and C2 elicited by patient's head turned towards the left during scanning, suggestive of rotatory atlantoaxial subluxation. Underlying instability is not excluded. No acute cervical spine fracture identified. MR follow-up may be useful as clinically warranted. MRI CERVICAL SPINE WO CONTRAST Result Date: 01/10/2023 No evidence for acute abnormality. The lateral masses at C1 and C2 are aligned. Multilevel degenerative change with canal stenosis at C3-4. Foraminal narrowing as described above. CT CHEST ABDOMEN PELVIS WO CONTRAST Additional Contrast? None Result Date: 01/10/2023 1. No acute traumatic process within the chest, abdomen and pelvis. 2. Hepatic cirrhosis with splenomegaly. 3. Cholelithiasis without CT evidence of acute cholecystitis. 4. Additional nonemergent findings, as above. CT LUMBAR SPINE TRAUMA RECONSTRUCTION Result Date: 01/10/2023 Remote compression deformity at L3 status post kyphoplasty. No acute vertebral body or disc space abnormality. Dependent infiltrates in the lung bases. CT THORACIC SPINE TRAUMA RECONSTRUCTION Result Date: 01/10/2023 No acute fracture or malalignment of the thoracic spine. Dependent infiltrates that may represent atelectasis. Physical Examination: General appearance: alert, cooperative and no distress Mental Status: oriented to person, place and time and normal affect Lungs: clear to auscultation bilaterally, normal effort Heart: regular rate and rhythm, no murmur Abdomen: soft, nontender, nondistended, normal bowel sounds, no masses, hepatomegaly, splenomegaly Extremities: no edema, redness, tenderness in the calves Skin: no gross lesions, rashes, induration Assessment: Hospital Problems Last Modified POA * (Principal) UTI (urinary tract infection) 01/10/2023 Yes Hepatic encephalopathy (HCC) 01/11/2023 Yes Non-alcoholic fatty liver disease 01/11/2023 Yes Stage 3 chronic kidney disease (HCC) 01/11/2023 Yes Essential hypertension 01/11/2023 Yes Type 2 diabetes mellitus, with long-term current use of insulin (HCC) 01/11/2023 Yes Gastroesophageal reflux disease 01/11/2023 Yes COPD (chronic obstructive pulmonary disease) (HCC) 01/11/2023 Yes Cervical spondylosis 01/11/2023 Yes Fall 01/12/2023 Yes Allergy to multiple antibiotics 01/12/2023 Yes Chronic congestive splenomegaly 01/12/2023 Yes H/O anaphylactic shock 01/12/2023 Yes Biliary cirrhosis (HCC) 01/12/2023 Yes E. coli UTI 01/12/2023 Yes Plan: UTI Toxic metabolic encephalopathy NAFLD NIDDM Patient doing well today, now on cephalexin. Needs SNF placement. DC ready once placement found Suspicious of delirium, discussed with son Discussed dcing lasix and possible monitoring lactulose to avoid dehydration King Blackwell DO 01/14/2023 11:31 AM Occupational Therapy Facility/Department: [facility] RENAL//MED SURG Occupational Therapy Initial Assessment Name: Angella Olson : 1955 Date of Service: 01/13/2023 Chief Complaint Patient presents with Fall C-1 and C-2 sublication, fall at [facility] Discharge Recommendations: Further therapy recommended at discharge. OT Equipment Recommendations Equipment Needed: Yes Mobility Devices: ADL Assistive Devices ADL Assistive Devices: Sock-Aid Hard;Long-handled Shoe Horn;Water Resource Consultant;Transfer Tub Bench Patient Diagnosis(es): The primary encounter diagnosis was Fall, initial encounter. Diagnoses of Acute cystitis without hematuria and Encephalopathy were also pertinent to this visit. 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 Past Surgical History: has a past surgical history that includes back surgery; Eye surgery; Abdomen surgery; section (1984); other surgical history; Colonoscopy; Upper gastrointestinal endoscopy; Mohs surgery (Left, 12/2019); Pain management procedure (Bilateral, 11/26/2021); Pain management procedure (Bilateral, 01/21/2022); other surgical history; other surgical history (Right); Pain management procedure (Right, 03/18/2022); Pain management procedure (N/A, 06/10/2022); Esophagogastroduodenoscopy (10/2021); Esophagogastroduodenoscopy (06/2021); Kyphosis surgery (10/06/2022); and Spine surgery (N/A, 10/06/2022). Assessment Performance deficits / Impairments: Decreased functional mobility ;Decreased ADL status;Decreased endurance;Decreased balance;Decreased high-level IADLs;Decreased ROM;Decreased strength Assessment: Pt would benefit from continued acute OT and OT at discharge d/t the above deficits decreasing occupational performance. Prognosis: Good Decision Making: Medium Complexity REQUIRES OT FOLLOW-UP: Yes Activity Tolerance Activity Tolerance: Patient limited by pain;Patient limited by fatigue Plan Occupational Therapy Plan Times Per Week: 2-4x/wk Current Treatment Recommendations: ROM, Strengthening, Functional mobility training, Endurance training, Gait training, Safety education & training, Pain management, Patient/Caregiver education & training, Equipment evaluation, education, & procurement, Home management training, Self-Care / ADL Restrictions Restrictions/Precautions Restrictions/Precautions: General Precautions Required Braces or Orthoses?: No Position Activity Restriction Other position/activity restrictions: Ambulate pt, Up w/ assist. CTLS cleared 01/10 by Daniel Plata. Subjective General Patient assessed for rehabilitation services?: Yes Family / Caregiver Present: No General Comment Comments: RN ok'd pt to engage in session this PM. Pt reported severe headache and requested medication, nurse notified. Pt able to continue with session with patience and increased time. Pt agreeable to session this date. Social/Functional History Social/Functional History Lives With: Alone Type of Home: Assisted living Home Layout: One level Home Access: Elevator, Stairs to enter with rails Entrance Stairs - Rails: Both Bathroom Shower/Tub: Walk-in shower, Shower chair without back Bathroom Toilet: Handicap height Bathroom Equipment: Grab bars around toilet Home Equipment: Oxygen, Cane, Walker, rolling (2L of O2 at home; uses RW at baseline) ADL Assistance: Independent Homemaking Assistance: Independent Homemaking Responsibilities: Yes Meal Prep Responsibility: No (facility makes meal) Laundry Responsibility: No (facility does) Cleaning Responsibility: Secondary (facility does most) Ambulation Assistance: Independent Transfer Assistance: Independent Active Cro: No Patient's Cro Info: medical transport Occupation: On disability Leisure & Hobbies: research Objective Safety Devices Type of Devices: Gait belt;Left in bed;Call light within reach;Bed alarm in place Restraints Restraints Initially in Place: No Bed Mobility Training Bed Mobility Training: Yes Overall Level of Assistance: Minimum assistance;Additional time Supine to Sit: Minimum assistance;Additional time Sit to Supine: Contact-guard assistance;Additional time Scooting: Contact-guard assistance;Additional time Balance Sitting: Intact (~14minutes at EOB with SUP for safety and ADL completion) Standing: With support (~2minutes at EOB with CGA and RW) Transfer Training Transfer Training: Yes Overall Level of Assistance: Contact-guard assistance;Adaptive equipment;Additional time (with RW) Sit to Stand: Contact-guard assistance;Adaptive equipment;Additional time Stand to Sit: Contact-guard assistance;Adaptive equipment;Additional time Gait Overall Level of Assistance: Contact-guard assistance;Adaptive equipment;Additional time (Pt demo a few forward/backward steps with CGA and RW. 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 (shoulders and elbows not formally assessed d/t chronic pain)) Coordination: Within functional limits Tone: Normal Sensation: Intact ADL Feeding: Modified independent Grooming: Modified independent UE Bathing: Stand by assistance;Setup;Increased time to complete LE Bathing: Minimal assistance;Increased time to complete UE Dressing: Stand by assistance;Setup;Increased time to complete LE Dressing: Minimal assistance;Increased time to complete Toileting: Minimal assistance;Increased time to complete Additional Comments: Pt demo donning B socks with min A d/t increased back pain while seated at EOB. Pt demo grooming task (washing face) while seated at EOB with SBA for set up d/t decreased endurance. Pt required mod A for bed/ sheet managment d/t increased fatigue and pain. Vision Vision: Impaired Vision Exceptions: Wears glasses at all times Hearing Hearing: Within functional limits Cognition Overall Cognitive Status: Exceptions Following Commands: Follows multistep commands with increased time;Follows multistep commands with repitition Safety Judgement: Decreased awareness of need for assistance Problem Solving: Assistance required to implement solutions;Assistance required to generate solutions Insights: Decreased awareness of deficits Initiation: Requires cues for some Sequencing: Requires cues for some Orientation Orientation Level: Disoriented to place;Oriented to person;Oriented to time;Oriented to situation Education Given To: Patient Education Provided: Role of Therapy;Transfer Training;Plan of Care;Equipment Education Method: Verbal Barriers to Learning: None Education Outcome: Verbalized understanding LUE AROM (degrees) LUE AROM : Exceptions L Shoulder Flexion 0-180: 0-90 d/t chronic neck pain L Elbow Flexion 0-145: WFL L Wrist Flexion 0-80: WFL Left Hand AROM (degrees) Left Hand AROM: WFL RUE AROM (degrees) RUE AROM : Exceptions R Shoulder Flexion 0-180: 0-90 d/t chronic neck pain R Elbow Flexion 0-145: WFL R Wrist Flexion 0-80: WFL Right Hand AROM (degrees) Right Hand AROM: WFL Hand Dominance Hand Dominance: Right [facility] Score [facility] Inpatient Daily Activity Raw Score: 18 (01/13/23 1507) [facility] Inpatient ADL T-Scale Score : 38.66 (01/13/23 1507) ADL Inpatient [facility] 0-100% Score: 46.65 (01/13/23 1507) ADL Inpatient [facility] G-Code Modifier : CK (01/13/23 1507) Goals Short Term Goals Time Frame for Short Term Goals: by discharge, pt will... Short Term Goal 1: complete UB ADLs with SUP and AE/modified tech as needed Short Term Goal 2: complete LB ADLs and toileting with CGA and AE/ modified tech as needed Short Term Goal 3: demo functional transfer/functional mobility with SBA and LRD as needed Short Term Goal 4: increase static/dynamic standing tolerance to 8+minutes with SBA and LRD as needed Short Term Goal 5: demo bed mobility with SBA and AE/modified tech as needed Short Term Goal 6: indep choose 2-3 non-pharmeceutical pain configuration management consultant to utilize while engaging in a functional task Therapy Time Individual Concurrent Group Co-treatment Time In 1349 Time Out 1421 Minutes 32 Timed Code Treatment Minutes: 25 Minutes Freda Ochoa OTS Images from the original note were not included. [facility] Office: [phone] Jason Baker DO, Demetri Johnson DO, Mehrdad Gibbs DO, Guy Grady DO, Mayte Boyer MD, Sarah Marroquin MD, Keren Dickson MD, Aletha Nuno MD, Landry Stahl MD, Lilibeth Umana MD, King Blackwell DO, Paul Scott MD, Liza Ward DO, Mary Lou Olvera MD, Abner Chisholm MD, Benjamin Baker DO, Janet Malcolm MD, Dejon Lemus MD, Roberto Payne DO, Shea Metcalf MD, Idalia Alexis MD, Audra Clark MD, Odessa Mccloud MD, Eren Turcios DO, Thee Richardson MD, Sondra Mcpherson CNP, Nisha Kaplan CNP, Tulio Corbett CNP, Tamiko Palafox CNP, Daksha Hill DNP, Jennifer Tadeo CNP, Emily Fonseca CNP, Karen Marin CNP, Idalmis Diaz CNP, Shawna Arredondo CNP, Chris Walker PA-C, Ramsey Almanza, JENNIFER, Lila Santa CNP, Buffy Groves, MABEL [facility] IN-PATIENT SERVICE [facility] Progress Note 01/13/2023 1:41 PM Name: Angella Olson Acct: [id number] Room: [facility]/0316-01 Day: 3 Admit Date: 01/10/2023 6:05 PM PCP: Justyna Jannie, COMMERCIAL HVAC SERVICE TECHNICIAN - NEWSPAPER COPY EDITOR Code Status: Full Code Subjective: C/C: Chief Complaint Patient presents with Fall C-1 and C-2 sublication, fall at [facility] Interval History Status: . Patient doing well today. Discussed sensitivites. Awaiting input from ID. Awaiting placement to SNF, discussed with RN/CM Brief History: Patient lives in independent/assisted living. Patient was found on the floor with a head strike. Patient was transported [place] [facility] [place]. EMR reviews reveal patient has been having abnormal behavior with more frequent falls over the past week or so. CT of the neck at [facility] shows possible malalignment of C1/C2. Patient was transported to this facility for trauma evaluation. Additional imaging was completed and malalignment was ruled out. Patient however does present with confusion. ED evaluation reveals UTI. Patient's symptoms are most likely acute encephalopathy secondary to UTI with ambulatory dysfunction. Review of Systems: Constitutional: negative for chills, fevers, sweats Respiratory: negative for cough, dyspnea on exertion, shortness of breath, wheezing Cardiovascular: negative for chest pain, chest pressure/discomfort, lower extremity edema, palpitations Gastrointestinal: negative for abdominal pain, constipation, diarrhea, nausea, vomiting Neurological: negative for dizziness, headache Medications: Allergies: Allergies Allergen Reactions Latex Shortness Of Breath and Rash Clindamycin/Lincomycin Anaphylaxis Erythromycin Base Anaphylaxis Fentanyl Anaphylaxis Gatifloxacin Anaphylaxis Indomethacin Shortness Of Breath, Nausea Only and Palpitations Iodine Tincture [Iodine] Shortness Of Breath, Itching and Swelling Pcn [Penicillins] Shortness Of Breath, Itching and Swelling Shellfish-Derived Products Shortness Of Breath, Itching and Swelling Sulfa Antibiotics Anaphylaxis Tetracyclines & Related Shortness Of Breath, Itching and Swelling Lidocaine Swelling Nitrofuran Derivatives Hives Phenazopyridine Hcl Hives Phenazopyridine Current Meds: Scheduled Meds: cephALEXin 500 mg Oral 4 times per day insulin lispro 0-8 Units SubCUTAneous TID WC insulin lispro 0-4 Units SubCUTAneous Nightly allopurinol 150 mg Oral Daily atenolol 50 mg Oral Daily atorvastatin 80 mg Oral Nightly divalproex 750 mg Oral Nightly ferrous sulfate 325 mg Oral Q48H FLUoxetine 40 mg Oral Daily budesonide-formoterol 2 puff Inhalation BID furosemide 20 mg Oral Daily gabapentin 100 mg Oral BID lactulose 30 g Oral BID pantoprazole 40 mg Oral QAM AC spironolactone 25 mg Oral Daily trospium 20 mg Oral BID AC sodium chloride flush 5-40 mL IntraVENous 2 times per day heparin (porcine) 5,000 Units SubCUTAneous 3 times per day insulin glargine 20 Units SubCUTAneous BID Continuous Infusions: sodium chloride 125 mL/hr at 01/11/23 0052 sodium chloride dextrose PRN Meds: sodium chloride flush, sodium chloride, ondansetron OR ondansetron, acetaminophen OR acetaminophen, polyethylene glycol, glucose, dextrose bolus OR dextrose bolus, glucagon (rDNA), dextrose, LORazepam, ketorolac Data: Past Medical History: has a past medical history of Anxiety, Arthritis, Bipolar disorder (HCC), Chronic congestive splenomegaly, COPD (chronic obstructive pulmonary disease) (HCC), Depression, Fibromyalgia, Hypertension, Liver disease, Non-alcoholic fatty liver disease, Obesity, Pulmonary fibrosis (HCC), 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 Social History: reports that she quit smoking about 13 years ago. Her smoking use included cigarettes. She has a 30.00 pack-year smoking history. She has never used smokeless tobacco. She reports that she does not drink alcohol and does not use drugs. Family History: Family History Problem Relation Age of Onset Other Mother Interstitial Pulmonary fibrosis. Other Son stomach issues-rapid onset diarrhea Vitals: BP 126/70 Pulse 67 Temp 97.6 F (36.4 C) (Oral) Resp 18 LMP (LMP Unknown) SpO2 95% Temp (24hrs), Av.9 F (36.6 C), Min:97.6 F (36.4 C), Max:98.2 F (36.8 C) Recent Labs 01/12/23 1600 01/12/23 1913 01/13/23 0741 01/13/23 1125 POCGLU 313* 237* 118* 219* I/O (24Hr): Intake/Output Summary (Last 24 hours) at 01/13/2023 1341 Last data filed at 01/13/2023 0606 Gross per 24 hour Intake -- Output 850 ml Net -850 ml Labs: Hematology: Recent Labs 01/11/23 0708 WBC 5.7 RBC 3.60* HGB 10.6* HCT 34.7* MCV 96.4 MCH 29.4 MCHC 30.5 RDW 16.7* PLT 104* MPV 10.1 Chemistry: Recent Labs 01/10/23 1849 01/10/23 2150 01/10/23 2315 01/11/23 0027 01/11/23 0708 NA 134* -- -- -- 138 K 4.7 -- -- -- 4.7 CL 96* -- -- -- 101 CO2 30 -- -- -- 25 GLUCOSE 288* -- 182 -- 195* BUN 18 -- -- -- 15 CREATININE 1.41* 1.38* -- -- 1.26* ANIONGAP 8* -- -- -- 12 LABGLOM 41* -- -- -- 47* CALCIUM 9.3 -- -- -- 8.9 TROPHS -- -- -- <6 -- Recent Labs 01/10/23 1517 01/10/23 2150 01/12/23 0746 01/12/23 1132 01/12/23 1600 01/12/23 1913 01/13/23 0741 01/13/23 1125 AMMONIA 30 -- -- -- -- -- -- -- POCGLU -- < > 149* 264* 313* 237* 118* 219* < > = values in this interval not displayed. ABG: Lab Results Component Value Date/Time PHART 7.329 08/14/2021 09:12 AM CRD8EXA 50.8 08/14/2021 09:12 AM PO2ART 85.6 08/14/2021 09:12 AM ZRO7HHM 26.1 08/14/2021 09:12 AM NBEA 0.6 08/14/2021 09:12 AM PBEA NOT REPORTED 08/14/2021 09:12 AM Q3GQBYHE 95.7 08/14/2021 09:12 AM FIO2 NOT REPORTED 08/14/2021 09:12 AM Lab Results Component Value Date/Time SPECIAL RT ARM 20 ML 12/29/2022 12:00 PM Lab Results Component Value Date/Time CULTURE ESCHERICHIA COLI >366675 CFU/ML (A) 01/10/2023 07:34 PM CULTURE ESCHERICHIA COLI >406360 CFU/ML 2ND COLONY TYPE (A) 01/10/2023 07:34 PM Radiology: XR KNEE LEFT (3 VIEWS) Result Date: 01/10/2023 No acute osseous or soft tissue abnormality. XR ANKLE LEFT (MIN 3 VIEWS) Result Date: 01/10/2023 Mild soft tissue swelling without acute osseous abnormality. XR ANKLE RIGHT (MIN 3 VIEWS) Result Date: 01/10/2023 Diffuse soft tissue swelling without definite acute osseous abnormality. XR FOOT RIGHT (MIN 3 VIEWS) Result Date: 01/10/2023 No acute osseous or soft tissue abnormality. Diffuse degenerative joint disease. CT HEAD WO CONTRAST Result Date: 01/10/2023 No acute intracranial abnormality. CT HEAD WO CONTRAST Result Date: 01/10/2023 No acute transcortical infarct or intracranial hemorrhage. CT CERVICAL SPINE WO CONTRAST Result Date: 01/10/2023 New malalignment of the lateral masses of C1 and C2 elicited by patient's head turned towards the left during scanning, suggestive of rotatory atlantoaxial subluxation. Underlying instability is not excluded. No acute cervical spine fracture identified. MR follow-up may be useful as clinically warranted. MRI CERVICAL SPINE WO CONTRAST Result Date: 01/10/2023 No evidence for acute abnormality. The lateral masses at C1 and C2 are aligned. Multilevel degenerative change with canal stenosis at C3-4. Foraminal narrowing as described above. CT CHEST ABDOMEN PELVIS WO CONTRAST Additional Contrast? None Result Date: 01/10/2023 1. No acute traumatic process within the chest, abdomen and pelvis. 2. Hepatic cirrhosis with splenomegaly. 3. Cholelithiasis without CT evidence of acute cholecystitis. 4. Additional nonemergent findings, as above. CT LUMBAR SPINE TRAUMA RECONSTRUCTION Result Date: 01/10/2023 Remote compression deformity at L3 status post kyphoplasty. No acute vertebral body or disc space abnormality. Dependent infiltrates in the lung bases. CT THORACIC SPINE TRAUMA RECONSTRUCTION Result Date: 01/10/2023 No acute fracture or malalignment of the thoracic spine. Dependent infiltrates that may represent atelectasis. Physical Examination: General appearance: alert, cooperative and no distress Mental Status: oriented to person, place and time and normal affect Lungs: clear to auscultation bilaterally, normal effort Heart: regular rate and rhythm, no murmur Abdomen: soft, nontender, nondistended, normal bowel sounds, no masses, hepatomegaly, splenomegaly Extremities: no edema, redness, tenderness in the calves Skin: no gross lesions, rashes, induration Assessment: Hospital Problems Last Modified POA * (Principal) UTI (urinary tract infection) 01/10/2023 Yes Hepatic encephalopathy (HCC) 01/11/2023 Yes Non-alcoholic fatty liver disease 01/11/2023 Yes Stage 3 chronic kidney disease (HCC) 01/11/2023 Yes Essential hypertension 01/11/2023 Yes Type 2 diabetes mellitus, with long-term current use of insulin (HCC) 01/11/2023 Yes Gastroesophageal reflux disease 01/11/2023 Yes COPD (chronic obstructive pulmonary disease) (HCC) 01/11/2023 Yes Cervical spondylosis 01/11/2023 Yes Fall 01/12/2023 Yes Allergy to multiple antibiotics 01/12/2023 Yes Chronic congestive splenomegaly 01/12/2023 Yes H/O anaphylactic shock 01/12/2023 Yes Biliary cirrhosis (HCC) 01/12/2023 Yes E. coli UTI 01/12/2023 Yes Plan: UTI Toxic metabolic encephalopathy NAFLD NIDDM Patient doing well today, now on cephalexin. Needs SNF placement. Otherwise stable once facility able to accommodate. King Blackwell DO 01/13/2023 1:41 PM Images from the original note were not included. [facility] - Progress Note Today's Date and Time: 01/13/2023, 11:44 AM Impression : UTI E coli x 2 different strains S/P Fall Multiple severe allergies. Anaphylaxis with Clindamycin, erythromycin, quinolones, sulfa, tetracycline Has tolerated ceftriaxone so far Cirrhosis of liver Splenomegaly Recommendations: Continue ceftriaxone until switched to Keflex She has two strains of E coli . Both strains are Sensitive to cephalosporins. Cephalexin 500 mg po qid can be tried as an oral agent to treat as outpatient. I would administer po Cephalexin in hospital. If she tolerates the complete treatment at home with 7 days of medication Medical Decision Making/Summary/Discussion:01/13/2023 Infection Control Recommendations [place] Precautions Antimicrobial Stewardship Recommendations Simplification of therapy Targeted therapy Coordination of Outpatient Care: Estimated Length of IV antimicrobials: 01-14-23 Patient will need Midline Catheter Insertion: No Patient will need PICC line Insertion:No Patient will need: Home IV , Infusion Center, SNF, LTAC: TBD Patient will need outpatient wound care:No Chief complaint/reason for consultation: UTI Multiple serious allergies History of Present Illness: Angella Olson is a 67 y.o.-year-old female who was initially admitted on 01/10/2023. Patient seen at the request of Dr. Lemus. 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 In addition she has multiple severe allergies including anaphylaxis to Clindamycin, erythromycin, quinolones, sulfa, tetracycline, penicillins. She resides in an assisted living facility. She was found on the floor, confused . Hx of a few falls over the past several days. [facility] concern with malignment of C spine. This was later excluded. Patient transferred to [facility] where she was felt to have a UTI with possible infection related confusion. Urine cultures have shown 2 strains of E coli >100,000 cfu/ml . Patient has received treatment with Ceftriaxone with some improvement in mentation. However, she remains pleasantly confused during my exam. So far she has tolerated Rocephin. CURRENT EVALUATION :01/13/2023 Afebrile VS stable Patient feels better No complaints No new issues per RN Medications reviewed On ceftriaxone Will try Keflex to see if she tolerates. If she does she can complete treatment at home with 7 days of Keflex Labs, X rays reviewed: 01/13/2023 BUN: 15 Cr: 1.26 WBC: 5.7 Hb:11.5 Plat: 104 Cultures: Urine: 01-10-23: E coli x 2 strains Blood: Sputum : Wound: Discussed with patient, RN, IM. I have personally reviewed the past medical history, past surgical history, medications, social history, and family history, and I have updated the database accordingly. 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 BACK SURGERY Donor cervical fusion. SECTION [address]Eric Sandoval-gastro in [place], [place]-unsure when ESOPHAGOGASTRODUODENOSCOPY 10/2021 [facility] ESOPHAGOGASTRODUODENOSCOPY 06/2021 [facility] EYE SURGERY Retinal surgery. KYPHOSIS SURGERY 10/06/2022 [facility] Left 12/2019 Left middle finger. OTHER SURGICAL HISTORY Removal of mass from left mid arm. OTHER SURGICAL HISTORY OTHER SURGICAL HISTORY Right NERVE RADIOFREQUENCY ABLATION-L3,4,5 (Right: Back)- Dr. Watts PAIN MANAGEMENT PROCEDURE Bilateral 11/26/2021 LUMBAR FACET - L4-5 L5-SI performed by Darell Watts MD at [facility] OR PAIN MANAGEMENT PROCEDURE Bilateral 01/21/2022 LUMBAR FACET - L4-5, L5-S1 performed by Darell aWtts MD at [facility] OR PAIN MANAGEMENT PROCEDURE Right 03/18/2022 NERVE RADIOFREQUENCY ABLATION-L3,4,5 performed by Darell Watts MD at [facility] OR PAIN MANAGEMENT PROCEDURE N/A 06/10/2022 EPIDURAL STEROID INJECTION- L5-SI, RIGHT OF MIDLINE performed by Darell Watts MD at [facility] OR SPINE SURGERY N/A 10/06/2022 KYPHOPLASTY - L3 performed by Sosa Rodriguez DO at [facility] OR UPPER GASTROINTESTINAL ENDOSCOPY [facility] unsure when Medications: insulin lispro 0-8 Units SubCUTAneous TID WC insulin lispro 0-4 Units SubCUTAneous Nightly allopurinol 150 mg Oral Daily atenolol 50 mg Oral Daily atorvastatin 80 mg Oral Nightly divalproex 750 mg Oral Nightly ferrous sulfate 325 mg Oral Q48H FLUoxetine 40 mg Oral Daily budesonide-formoterol 2 puff Inhalation BID furosemide 20 mg Oral Daily gabapentin 100 mg Oral BID lactulose 30 g Oral BID pantoprazole 40 mg Oral QAM AC spironolactone 25 mg Oral Daily trospium 20 mg Oral BID AC sodium chloride flush 5-40 mL IntraVENous 2 times per day cefTRIAXone (ROCEPHIN) IV 1,000 mg IntraVENous Q24H heparin (porcine) 5,000 Units SubCUTAneous 3 times per day insulin glargine 20 Units SubCUTAneous BID Social History: Social History Socioeconomic History Marital status: Spouse name: Not on file Number of children: 1 Years of education: 19 Highest education level: Not on file Occupational History Not on file Tobacco Use Smoking status: Former Packs/day: 1.00 Years: 30.00 Pack years: 30.00 Types: Cigarettes Quit date: 2009 Years since quittin.4 Smokeless tobacco: Never Vaping Use Vaping Use: Never used Substance and Sexual Activity Alcohol use: Never Drug use: Never Sexual activity: Not Currently Other Topics Concern Not on file Social History Narrative Not on file Social Determinants of Health Financial Resource Strain: Low Risk Difficulty of Paying Living Expenses: Not hard at all Food Insecurity: No Food Insecurity Worried About Running Out of Food in the Last Year: Never true Ran Out of Food in the Last Year: Never true Transportation Needs: Not on file Physical Activity: Inactive Days of Exercise per Week: 0 days Minutes of Exercise per Session: 0 min Stress: Not on file Social Connections: Not on file Intimate Partner Violence: Not on file Housing Stability: Not on file Family History: Family History Problem Relation Age of Onset Other Mother Interstitial Pulmonary fibrosis. Other Son stomach issues-rapid onset diarrhea Allergies: Latex, Clindamycin/lincomycin, Erythromycin base, Fentanyl, Gatifloxacin, Indomethacin, Iodine tincture [iodine], Pcn [penicillins], Shellfish-derived products, Sulfa antibiotics, Tetracyclines & related, Lidocaine, Nitrofuran derivatives, Phenazopyridine hcl, and Phenazopyridine Review of Systems: Constitutional: No fevers or chills. No systemic complaints Head: No headaches Eyes: No double vision or blurry vision. No conjunctival inflammation. ENT: No sore throat or runny nose.. No hearing loss, tinnitus or vertigo. Cardiovascular: No chest pain or palpitations.No shortness of breath. No BAILEY Lung: No shortness of breath or cough. No sputum production Abdomen: No nausea, vomiting, diarrhea, or abdominal pain.. No cramps. Genitourinary: No increased urinary frequency, or dysuria. No hematuria. No suprapubic or CVA pain Musculoskeletal: No muscle aches or pains. No joint effusions, swelling or deformities Hematologic: No bleeding or bruising. Neurologic: No headache, weakness, numbness, or tingling.Confusion Integument: No rash, no ulcers. Psychiatric: No depression. Endocrine: No polyuria, no polydipsia, no polyphagia. Physical Examination : Patient Vitals for the past 8 hrs: BP Temp Temp src Pulse Resp SpO2 01/13/23 0924 -- -- -- -- -- 95 % 01/13/23 0736 126/70 97.6 F (36.4 C) Oral 67 18 95 % General Appearance: Awake, alert, and in no apparent distress Head: Normocephalic, no trauma Eyes: Pupils equal, round, reactive to light and accommodation; extraocular movements intact; sclera anicteric; conjunctivae pink. No embolic phenomena. ENT: Oropharynx clear, without erythema, exudate, or thrush. No tenderness of sinuses. Mouth/throat: mucosa pink and moist. No lesions. Dentition in good repair. Neck:Supple, without lymphadenopathy. Thyroid normal, No bruits. Pulmonary/Chest: Clear to auscultation, without wheezes, rales, or rhonchi. No dullness to percussion. Cardiovascular: Regular rate and rhythm without murmurs, rubs, or gallops. Abdomen: Soft, non tender. Bowel sounds normal. No organomegaly All four Extremities: No cyanosis, clubbing, edema, or effusions. Neurologic: No gross sensory or motor deficits. Has some degree of confusion Skin: Warm and dry with good turgor.No signs of peripheral arterial or venous insufficiency. No ulcerations. No open wounds. Medical Decision Making -Laboratory: I have independently reviewed/ordered the following labs: CBC with Differential: Recent Labs 01/10/23 1245 01/11/23 0708 WBC 3.5 5.7 HGB 10.3* 10.6* HCT 32.6* 34.7* PLT See Reflexed IPF Result 104* LYMPHOPCT 24 13* MONOPCT 8 9 BMP: Recent Labs 01/10/23 1849 01/10/23 2150 01/11/23 0708 NA 134* -- 138 K 4.7 -- 4.7 CL 96* -- 101 CO2 30 -- 25 BUN 18 -- 15 CREATININE 1.41* 1.38* 1.26* Hepatic Function Panel: No results for input(s): PROT, LABALBU, BILIDIR, IBILI, BILITOT, ALKPHOS, ALT, AST in the last 72 hours. No results for input(s): RPR in the last 72 hours. No results for input(s): HIV in the last 72 hours. No results for input(s): BC in the last 72 hours. Lab Results Component Value Date/Time MUCUS TRACE 12/27/2021 11:20 AM RBC 3.60 01/11/2023 07:08 AM TRICHOMONAS NOT REPORTED 08/14/2021 10:00 AM WBC 5.7 01/11/2023 07:08 AM YEAST NOT REPORTED 08/14/2021 10:00 AM TURBIDITY Clear 01/10/2023 07:34 PM Lab Results Component Value Date/Time CREATININE 1.26 01/11/2023 07:08 AM GLUCOSE 195 01/11/2023 07:08 AM Medical Decision Making-Imaging: EXAMINATION: CT OF THE CHEST, ABDOMEN, AND PELVIS WITHOUT CONTRAST 01/10/2023 12:31 pm TECHNIQUE: CT of the chest, abdomen and pelvis was performed without the administration of intravenous contrast. Multiplanar reformatted images are provided for review. Automated exposure control, iterative reconstruction, and/or weight based adjustment of the mA/kV was utilized to reduce the radiation dose to as low as reasonably achievable. COMPARISON: 10/03/2022 HISTORY: ORDERING SYSTEM PROVIDED HISTORY: fall TECHNOLOGIST PROVIDED HISTORY: fall Decision Support Exception - unselect if not a suspected or confirmed emergency medical condition->Emergency Medical Condition (MA) FINDINGS: Chest: Mediastinum: No cardiomegaly or pericardial effusion. Moderate coronary artery calcifications. Mildly dilated main pulmonary artery suggesting pulmonary arterial hypertension. Scattered atherosclerotic calcifications of the thoracic aorta and great vessel origins. No mediastinal adenopathy appreciated. Lungs/pleura: Peripheral pulmonary fibrotic changes. Bibasilar dependent atelectasis. No superimposed dominant mass or consolidation. No effusion or pneumothorax. Soft Tissues/Bones: Multilevel disc disease. Fusion hardware within the lower cervical spine. No acute fracture or aggressive osseous lesion. Abdomen/Pelvis: Evaluation of the solid and hollow abdominal viscera is limited without intravenous contrast administration. Organs: Mild splenomegaly. Cholelithiasis without CT evidence of acute cholecystitis. Hepatic cirrhosis. Otherwise unremarkable. GI/Bowel: No acute obstruction. No appreciable bowel wall thickening. Probable constipation. No acute appendicitis. Pelvis: Within normal limits. Peritoneum/Retroperitoneum: No adenopathy. Moderate atherosclerotic calcification of the abdominal aorta and major branch vessels. Bones/Soft Tissues: No acute fracture or aggressive osseous lesion. Chronic L3 vertebral compression fracture with evidence of prior cement augmentation. IMPRESSION: 1. No acute traumatic process within the chest, abdomen and pelvis. 2. Hepatic cirrhosis with splenomegaly. 3. Cholelithiasis without CT evidence of acute cholecystitis. 4. Additional nonemergent findings, as above. Specimen Collected: 01/10/23 12:39 EDT Last Resulted: 01/10/23 13:24 EDT MRI CERVICAL SPINE WO CONTRAST Order: [id number] Status: Final result Visible to patient: Yes (not seen) Next appt: 01/13/2023 at 09:45 AM in Radiology ([facility]) 0 Result Notes Details Reading Physician Reading Date Result Priority Alex Myers MD [phone] 01/10/2023 Narrative & Impression EXAMINATION: MRI OF THE CERVICAL SPINE WITHOUT CONTRAST 01/10/2023 7:37 pm TECHNIQUE: Multiplanar multisequence MRI of the cervical spine was performed without the administration of intravenous contrast. COMPARISON: None. HISTORY: ORDERING SYSTEM PROVIDED HISTORY: atlantoaxial subluxation TECHNOLOGIST PROVIDED HISTORY: atlantoaxial subluxation Decision Support Exception - unselect if not a suspected or confirmed emergency medical condition->Emergency Medical Condition (MA) Reason for Exam: S/P Fall - atlantoaxial subluxation. FINDINGS: BONES/ALIGNMENT: There is anterior fixation at C5-C7 without complication. The vertebral body heights are maintained. The C1 and C2 lateral masses are aligned. There is age-appropriate bone marrow signal. There is multilevel degenerative disc disease at the remaining levels with loss of disc signal. There is no spondylolisthesis. SPINAL CORD: No abnormal cord signal is seen. SOFT TISSUES: No paraspinal mass identified. C2-C3: There is a disc osteophyte complex with uncovertebral hypertrophy. There is no canal stenosis or foraminal narrowing. C3-C4: There is a disc osteophyte complex with uncovertebral and facet hypertrophy. There is canal stenosis measuring 8 mm in AP dimension. There is severe bilateral foraminal narrowing. C4-C5: There is a disc osteophyte complex with uncovertebral and facet hypertrophy. There is no canal stenosis. There is moderate right and severe left foraminal narrowing. C5-C6: There is uncovertebral and facet hypertrophy. There is no canal stenosis. There is moderate foraminal narrowing. C6-C7: There is uncovertebral and facet hypertrophy. There is no canal stenosis. There is moderate right and severe left foraminal narrowing. C7-T1: There is a disc osteophyte complex with uncovertebral and facet hypertrophy. There is no canal stenosis or foraminal narrowing. IMPRESSION: No evidence for acute abnormality. The lateral masses at C1 and C2 are aligned. Multilevel degenerative change with canal stenosis at C3-4. Foraminal narrowing as described above. Specimen Collected: 01/10/23 19:48 EDT Last Resulted: 01/10/23 19:59 EDT Medical Decision [id number]-[id number]-[id number]: Contains abnormal data Culture, Urine Order: [id number] Status: Final result Visible to patient: Yes (not seen) Next appt: 01/28/2023 at 08:30 AM in Neurosurgery (Sosa Rodriguez DO) Specimen Information: Urine, clean catch 0 Result Notes Component 01/10/231933 Specimen Description .CLEAN CATCH URINE Culture ESCHERICHIA COLI >[id number] CFU/ML Abnormal Culture ESCHERICHIA COLI >[id number] CFU/ML 2ND COLONY TYPE Abnormal Resulting Agency [facility] Susceptibility Escherichia coli (1) Antibiotic Interpretation Microscan Method Status ampicillin Intermediate 16 BACTERIAL SUSCEPTIBILITY PANEL ALEX Final ceFAZolin Sensitive <=4 BACTERIAL SUSCEPTIBILITY PANEL ALEX Final Cefazolin sensitivity results can be used to predict the effectiveness of oral cephalosporins (eg. Cephalexin) in uncomplicated Urinary Tract Infections due to E. coli, K. pneumoniae, and P. mirabilis cefTRIAXone Sensitive <=0.25 BACTERIAL SUSCEPTIBILITY PANEL ALEX Final Confirmatory Extended Spectrum Beta-Lactamase Sensitive NEGATIVE BACTERIAL SUSCEPTIBILITY PANEL ALEX Final gentamicin Sensitive <=1 BACTERIAL SUSCEPTIBILITY PANEL ALEX Final levofloxacin Sensitive <=0.12 BACTERIAL SUSCEPTIBILITY PANEL ALEX Final nitrofurantoin Sensitive <=16 BACTERIAL SUSCEPTIBILITY PANEL ALEX Final piperacillin-tazobactam Sensitive <=4 BACTERIAL SUSCEPTIBILITY PANEL ALEX Final tobramycin Sensitive <=1 BACTERIAL SUSCEPTIBILITY PANEL ALEX Final trimethoprim-sulfamethoxazole Sensitive <=20 BACTERIAL SUSCEPTIBILITY PANEL ALEX Final Escherichia coli (2) Antibiotic Interpretation Microscan Method Status ampicillin Intermediate 16 BACTERIAL SUSCEPTIBILITY PANEL ALEX Final ceFAZolin Sensitive <=4 BACTERIAL SUSCEPTIBILITY PANEL ALEX Final Cefazolin sensitivity results can be used to predict the effectiveness of oral cephalosporins (eg. Cephalexin) in uncomplicated Urinary Tract Infections due to E. coli, K. pneumoniae, and P. mirabilis cefTRIAXone Sensitive <=0.25 BACTERIAL SUSCEPTIBILITY PANEL ALEX Final Confirmatory Extended Spectrum Beta-Lactamase Sensitive NEGATIVE BACTERIAL SUSCEPTIBILITY PANEL ALEX Final gentamicin Sensitive <=1 BACTERIAL SUSCEPTIBILITY PANEL ALEX Final levofloxacin Sensitive <=0.12 BACTERIAL SUSCEPTIBILITY PANEL ALEX Final nitrofurantoin Sensitive <=16 BACTERIAL SUSCEPTIBILITY PANEL ALEX Final piperacillin-tazobactam Sensitive <=4 BACTERIAL SUSCEPTIBILITY PANEL ALEX Final tobramycin Sensitive <=1 BACTERIAL SUSCEPTIBILITY PANEL ALEX Final trimethoprim-sulfamethoxazole Sensitive <=20 BACTERIAL SUSCEPTIBILITY PANEL ALEX Final Condensed View Specimen Collected: 01/10/23 19:34 EDT Last Resulted: 01/13/23 11:28 EDT Medical Decision Making-Other: Note: Labs, medications, radiologic studies were reviewed with personal review of films Large amounts of data were reviewed Discussed with nursing Staff, business planner Infection Control and Prevention measures reviewed All prior entries were reviewed Administer medications as ordered Prognosis: Fair Discharge planning reviewed Follow up as outpatient. Thank you for allowing us to participate in the care of this patient. Please call with questions. Fred Hearn MD Pager: - Office: Physical Therapy Facility/Department: [facility] RENAL//MED SURG Physical Therapy Initial Assessment Name: Angelal Olson : 1955 Date of Service: 01/12/2023 Chief Complaint Patient presents with Fall C-1 and C-2 sublication, fall at fpc Discharge Recommendations: Further therapy recommended at discharge. PT Equipment Recommendations Equipment Needed: No Patient Diagnosis(es): The primary encounter diagnosis was Fall, initial encounter. Diagnoses of Acute cystitis without hematuria and Encephalopathy were also pertinent to this visit. 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 Past Surgical History: has a past surgical history that includes back surgery; Eye surgery; Abdomen surgery; section (1984); other surgical history; Colonoscopy; Upper gastrointestinal endoscopy; Mohs surgery (Left, 12/2019); Pain management procedure (Bilateral, 11/26/2021); Pain management procedure (Bilateral, 01/21/2022); other surgical history; other surgical history (Right); Pain management procedure (Right, 03/18/2022); Pain management procedure (N/A, 06/10/2022); Esophagogastroduodenoscopy (10/2021); Esophagogastroduodenoscopy (06/2021); Kyphosis surgery (10/06/2022); and Spine surgery (N/A, 10/06/2022). Assessment Body Structures, Functions, Activity Limitations Requiring Skilled Therapeutic Intervention: Decreased functional mobility ;Decreased endurance;Decreased balance;Decreased strength;Increased pain;Decreased cognition Assessment: Pt amb 8' CGA RW. Pt does not demosntrate LOB on eval but reports falling in facility - unable to articulate cause or preceding events. Pt is unable to perform bed mobility w/out physical assistance. Pt would benefit from continued acute PT to address deficits. Therapy Prognosis: Fair Decision Making: Medium Complexity Requires PT Follow-Up: Yes Activity Tolerance Activity Tolerance: Patient limited by fatigue;Patient limited by endurance Plan Physcial Therapy Plan General Plan: (5-6x/wk) Current Treatment Recommendations: Strengthening, Balance training, Functional mobility training, Transfer training, Gait training, Stair training, Neuromuscular re-education, Home exercise program, Safety education & training, Patient/Caregiver education & training, Equipment evaluation, education, & procurement, Therapeutic activities, Endurance training Safety Devices Type of Devices: All fall risk precautions in place, Gait belt, Call light within reach, Patient at risk for falls, Nurse notified, Left in bed Restraints Restraints Initially in Place: No Restrictions Restrictions/Precautions Restrictions/Precautions: General Precautions Position Activity Restriction Other position/activity restrictions: Ambulate pt, Up w/ assist. CTLS cleared 01/10 by Daniel Plata. Subjective General Chart Reviewed: Yes Patient assessed for rehabilitation services?: Yes Response To Previous Treatment: Not applicable Family / Caregiver Present: No Follows Commands: Impaired (Follows ~70% of commands) General Comment Comments: RN an d pt agreeable to PT. pt alert in bed upon arrival. On 3.5L O2 NC throughout eval. Subjective Subjective: pt denies pain, n/t at rest. Pt reports unquantified low back pain in mobilization that is chronic per pt - did not limit mobility. Social/Functional History Social/Functional History Lives With: Alone Type of Home: Assisted living Home Layout: One level Home Equipment: Rollator, Oxygen ADL Assistance: Independent Homemaking Assistance: Independent Homemaking Responsibilities: Yes Ambulation Assistance: Independent Transfer Assistance: Independent Vision/Hearing Vision Vision: Impaired Vision Exceptions: Wears glasses for reading;Wears glasses for distance;Wears glasses at all times Hearing Hearing: Within functional limits Cognition Orientation Orientation Level: Oriented to person;Disoriented to place;Disoriented to time;Disoriented to situation Cognition Overall Cognitive Status: Exceptions Arousal/Alertness: Appropriate responses to stimuli Following Commands: Follows one step commands with increased time;Follows one step commands with repetition;Inconsistently follows commands Attention Span: Attends with cues to redirect Safety Judgement: Decreased awareness of need for assistance;Decreased awareness of need for safety Problem Solving: Assistance required to generate solutions;Assistance required to implement solutions;Assistance required to identify errors made;Assistance required to correct errors made;Decreased awareness of errors Insights: Decreased awareness of deficits Initiation: Requires cues for some Sequencing: Requires cues for some Objective AROM RLE (degrees) RLE AROM: WFL AROM LLE (degrees) LLE AROM : WFL AROM RUE (degrees) RUE AROM : WFL AROM LUE (degrees) LUE AROM : WFL Strength RLE Strength RLE: Exception Comment: Grossly 4-/5 Strength LLE Strength LLE: Exception Comment: Grossly 4-/5 Strength RUE Strength RUE: WFL Comment: Grossly 4-/5 Strength LUE Strength LUE: WFL Comment: Grossly 4-/5 Bed mobility Supine to Sit: Moderate assistance Sit to Supine: Minimal assistance Bed Mobility Comments: Pt required assist at trunk in bed mobility tasks. HOB elevated ~30 degrees. Upon sitting pt lost balance in posterior direction requiring [place] to maintain upright trunk. Transfers Sit to Stand: Contact guard assistance Stand to Sit: Contact guard assistance Comment: Transfer performed w/ RW 3x. Twice from bed, once from toilet. Pt educated on controlling descent in stand to sit as pt demonstrated poor eccentric control. Ambulation Surface: Level tile Device: Rolling Walker Assistance: Contact guard assistance Quality of Gait: Pt amb w/ decreased gait speed, decreased step length, slight anterior trunk lean. No LOB. Pt requires verbal cues on directionand steering. Distance: 8' + 8' Comments: Pt toileted between ambulation distances More Ambulation?: No Balance Posture: Fair Sitting - Static: Fair;+ Sitting - Dynamic: Fair Standing - Static: Fair Standing - Dynamic: Fair Comments: Standing balance assessed w/out AD AM-PAC Score AM-PAC Inpatient Mobility Raw Score : 15 (01/12/23 1250) AM-PAC Inpatient T-Scale Score : 39.45 (01/12/23 125) Mobility Inpatient CMS 0-100% Score: 57.7 (01/12/23 125) Mobility Inpatient CMS G-Code Modifier : CK (01/12/231249) Goals Short Term Goals Time Frame for Short Term Goals: 10 visits Short Term Goal 1: Pt will be Junito in all bed mobility tasks Short Term Goal 2: Pt will be Junito for transfers Short Term Goal 3: Pt will amb 200' CGA w/ RW or least restrictive device Short Term Goal 4: Pt will be CGA in negotiation of 1 step w/out rail use. Education Patient Education Education Given To: Patient Education Provided: Role of Therapy;Plan of Care Education Method: Demonstration;Verbal Barriers to Learning: Cognition Education Outcome: Verbalized understanding;Continued education needed Therapy Time Individual Concurrent Group Co-treatment Time In 1145 Time Out 1224 Minutes 39 Timed Code Treatment Minutes: 33 Minutes Glenis Payne PT Images from the original note were not included. [facility] Office: [phone] Jason Baker DO, Demetri Johnson DO, Mehrdad Gibbs DO, Guy Grady DO, Mayte Boyer MD, Sarah Marroquin MD, Keren Dickson MD, Aletha Nuno MD, Landry Stahl MD, Lilibeth Umana MD, King Blackwell DO, Paul Scott MD, Liza Ward DO, Mary Lou Olvera MD, Abner Chisholm MD, Benjamin Baker DO, Janet Malcolm MD, Dejon Lemus MD, Roberto Payne DO, Shea Metcalf MD, Idalia Alexis MD, Audra Clark MD, Odessa Mccloud MD, Eren Turcios DO, Thee Richardson MD, Sondra Mcpherson, MABEL, Nisha Kaplan CNP, Tulio Corbett CNP, Tamiko Palafox CNP, Daksha Hill DNP, Jennifer Tadeo, MABEL, Emily Fonseca, NEWSPAPER COPY EDITOR, Karen Marin, NEWSPAPER COPY EDITOR, Idalmis Diaz, NEWSPAPER COPY EDITOR, Shawna Arredondo, MABEL, Chris Walker PA-C, Ramsey Almanza, DRY ROLLER, Lila Santa CNP, Buffy Groves, MABEL [facility] IN-PATIENT SERVICE [facility] Progress Note 01/12/2023 9:49 AM Name: Angella Olson Acct: [id number] Room: 0316/0316-01 Day: 2 Admit Date: 01/10/2023 6:05 PM PCP: CELIA Garcia CNP Code Status: Full Code Subjective: C/C: Chief Complaint Patient presents with Fall C-1 and C-2 sublication, fall at fpc Interval History Status: . Brief History: Patient lives in independent/assisted living. Patient was found on the floor with a head strike. Patient [place] [facility] [place]. EMR reviews reveal patient has been having abnormal behavior with more frequent falls over the past week or so. CT of the neck at [facility] shows possible malalignment of C1/C2. Patient was transported to this facility for trauma evaluation. Additional imaging was completed and malalignment was ruled out. Patient however does present with confusion. ED evaluation reveals UTI. Patient's symptoms are most likely acute encephalopathy secondary to UTI with ambulatory dysfunction. Review of Systems: Constitutional: negative for chills, fevers, sweats Respiratory: negative for cough, dyspnea on exertion, shortness of breath, wheezing Cardiovascular: negative for chest pain, chest pressure/discomfort, lower extremity edema, palpitations Gastrointestinal: negative for abdominal pain, constipation, diarrhea, nausea, vomiting Neurological: negative for dizziness, headache Medications: Allergies: Allergies Allergen Reactions Latex Shortness Of Breath and Rash Clindamycin/Lincomycin Anaphylaxis Erythromycin Base Anaphylaxis Fentanyl Anaphylaxis Gatifloxacin Anaphylaxis Indomethacin Shortness Of Breath, Nausea Only and Palpitations Iodine Tincture [Iodine] Shortness Of Breath, Itching and Swelling Pcn [Penicillins] Shortness Of Breath, Itching and Swelling Shellfish-Derived Products Shortness Of Breath, Itching and Swelling Sulfa Antibiotics Anaphylaxis Tetracyclines & Related Shortness Of Breath, Itching and Swelling Lidocaine Swelling Nitrofuran Derivatives Hives Phenazopyridine Hcl Hives Phenazopyridine Current Meds: Scheduled Meds: allopurinol 150 mg Oral Daily atenolol 50 mg Oral Daily atorvastatin 80 mg Oral Nightly divalproex 750 mg Oral Nightly ferrous sulfate 325 mg Oral Q48H FLUoxetine 40 mg Oral Daily budesonide-formoterol 2 puff Inhalation BID furosemide 20 mg Oral Daily gabapentin 100 mg Oral BID lactulose 30 g Oral BID pantoprazole 40 mg Oral QAM AC spironolactone 25 mg Oral Daily trospium 20 mg Oral BID AC sodium chloride flush 5-40 mL IntraVENous 2 times per day cefTRIAXone (ROCEPHIN) IV 1,000 mg IntraVENous Q24H heparin (porcine) 5,000 Units SubCUTAneous 3 times per day insulin glargine 20 Units SubCUTAneous BID Continuous Infusions: sodium chloride 125 mL/hr at 01/11/23 0052 sodium chloride dextrose PRN Meds: sodium chloride flush, sodium chloride, ondansetron OR ondansetron, acetaminophen OR acetaminophen, polyethylene glycol, glucose, dextrose bolus OR dextrose bolus, glucagon (rDNA), dextrose, LORazepam, ketorolac Data: Past Medical History: has a past medical history of Anxiety, Arthritis, Bipolar disorder (HCC), COPD (chronic obstructive pulmonary disease) (HCC), Depression, Fibromyalgia, Hypertension, Liver disease, Non-alcoholic fatty liver disease, Obesity, Pulmonary fibrosis (HCC), 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 Social History: reports that she quit smoking about 13 years ago. Her smoking use included cigarettes. She has a 30.00 pack-year smoking history. She has never used smokeless tobacco. She reports that she does not drink alcohol and does not use drugs. Family History: Family History Problem Relation Age of Onset Other Mother Interstitial Pulmonary fibrosis. Other Son stomach issues-rapid onset diarrhea Vitals: BP (!) 112/59 Pulse 65 Temp 98 F (36.7 C) (Oral) Resp 15 LMP (LMP Unknown) SpO2 96% Temp (24hrs), Av.7 F (36.5 C), Min:97.3 F (36.3 C), Max:98 F (36.7 C) Recent Labs 01/11/23111901/11/23162301/11/23192601/12/23 0746 POCGLU 250* 269* 273* 149* I/O (24Hr): No intake or output data in the 24 hours ending 01/12/23 0949 Labs: Hematology: Recent Labs 01/10/23 12401/11/23 0708 WBC 3.5 5.7 RBC 3.46* 3.60* HGB 10.3* 10.6* HCT 32.6* 34.7* MCV 94.2 96.4 MCH 29.8 29.4 MCHC 31.6 30.5 RDW 16.4* 16.7* PLT See Reflexed IPF Result 104* MPV -- 10.1 Chemistry: Recent Labs 01/10/23 12401/10/23 18401/10/23214901/10/23231401/11/23 0027 01/11/23 0708 NA 130* 134* -- -- -- 138 K 5.5* 4.7 -- -- -- 4.7 CL 92* 96* -- -- -- 101 CO2 29 30 -- -- -- 25 GLUCOSE 470* 288* -- 182 -- 195* BUN 20 18 -- -- -- 15 CREATININE 1.60* 1.41* 1.38* -- -- 1.26* ANIONGAP 9 8* -- -- -- 12 LABGLOM 35* 41* -- -- -- 47* CALCIUM 9.4 9.3 -- -- -- 8.9 TROPHS -- -- -- -- <6 -- Recent Labs 01/10/23 15101/10/23214901/11/23 0049 01/11/2375301/11/23111901/11/23162301/11/23192601/12/23 0746 AMMONIA 30 -- -- -- -- -- -- -- POCGLU -- < > 144* 218* 250* 269* 273* 149* < > = values in this interval not displayed. ABG: Lab Results Component Value Date/Time PHART 7.329 08/14/2021 09:12 AM [id number] 50.8 08/14/2021 09:12 AM PO2ART 85.6 08/14/2021 09:12 AM [id number] 26.1 08/14/2021 09:12 AM NBEA 0.6 08/14/2021 09:12 AM PBEA NOT REPORTED 08/14/2021 09:12 AM [id number] 95.7 08/14/2021 09:12 AM FIO2 NOT REPORTED 08/14/2021 09:12 AM Lab Results Component Value Date/Time SPECIAL RT ARM 20 ML 12/29/2022 12:00 PM Lab Results Component Value Date/Time CULTURE GRAM NEGATIVE RODS >[id number] CFU/ML (A) 01/10/2023 07:34 PM Radiology: XR KNEE LEFT (3 VIEWS) Result Date: 01/10/2023 No acute osseous or soft tissue abnormality. XR ANKLE LEFT (MIN 3 VIEWS) Result Date: 01/10/2023 Mild soft tissue swelling without acute osseous abnormality. XR ANKLE RIGHT (MIN 3 VIEWS) Result Date: 01/10/2023 Diffuse soft tissue swelling without definite acute osseous abnormality. XR FOOT RIGHT (MIN 3 VIEWS) Result Date: 01/10/2023 No acute osseous or soft tissue abnormality. Diffuse degenerative joint disease. CT HEAD WO CONTRAST Result Date: 01/10/2023 No acute intracranial abnormality. CT HEAD WO CONTRAST Result Date: 01/10/2023 No acute transcortical infarct or intracranial hemorrhage. CT CERVICAL SPINE WO CONTRAST Result Date: 01/10/2023 New malalignment of the lateral masses of C1 and C2 elicited by patient's head turned towards the left during scanning, suggestive of rotatory atlantoaxial subluxation. Underlying instability is not excluded. No acute cervical spine fracture identified. MR follow-up may be useful as clinically warranted. MRI CERVICAL SPINE WO CONTRAST Result Date: 01/10/2023 No evidence for acute abnormality. The lateral masses at C1 and C2 are aligned. Multilevel degenerative change with canal stenosis at C3-4. Foraminal narrowing as described above. CT CHEST ABDOMEN PELVIS WO CONTRAST Additional Contrast? None Result Date: 01/10/2023 1. No acute traumatic process within the chest, abdomen and pelvis. 2. Hepatic cirrhosis with splenomegaly. 3. Cholelithiasis without CT evidence of acute cholecystitis. 4. Additional nonemergent findings, as above. CT LUMBAR SPINE TRAUMA RECONSTRUCTION Result Date: 01/10/2023 Remote compression deformity at L3 status post kyphoplasty. No acute vertebral body or disc space abnormality. Dependent infiltrates in the lung bases. CT THORACIC SPINE TRAUMA RECONSTRUCTION Result Date: 01/10/2023 No acute fracture or malalignment of the thoracic spine. Dependent infiltrates that may represent atelectasis. Physical Examination: General appearance: alert, cooperative and no distress Mental Status: oriented to person, place and time and normal affect Lungs: clear to auscultation bilaterally, normal effort Heart: regular rate and rhythm, no murmur Abdomen: soft, nontender, nondistended, normal bowel sounds, no masses, hepatomegaly, splenomegaly Extremities: no edema, redness, tenderness in the calves Skin: no gross lesions, rashes, induration Assessment: Hospital Problems Last Modified POA * (Principal) UTI (urinary tract infection) 01/10/2023 Yes Hepatic encephalopathy (HCC) 01/11/2023 Yes Non-alcoholic fatty liver disease 01/11/2023 Yes Stage 3 chronic kidney disease (HCC) 01/11/2023 Yes Essential hypertension 01/11/2023 Yes Type 2 diabetes mellitus, with long-term current use of insulin (HCC) 01/11/2023 Yes Gastroesophageal reflux disease 01/11/2023 Yes COPD (chronic obstructive pulmonary disease) ([facility]) 01/11/2023 Yes Cervical spondylosis 01/11/2023 Yes Plan: UTI Toxic metabolic encephalopathy NAFLD NIDDM Dispo pending return to baseline after iv abx and will dc back to independent living Does have hx of recurrent uti will wait on C&S Patient has 15 allergies we will consult ID for antibiotic choice Dejon Lemus MD 01/12/2023 9:49 AM Images from the original note were not included. Trauma Tertiary Survey Admit Date: 01/10/2023 Hospital day 1 Subjective: Patient seen and chart reviewed. No acute events overnight. Afebrile, normotensive, normal sinus rhythm, and saturating >95% on 3 L NC. Objective: PHYSICAL EXAM: Physical Exam Vitals reviewed. Constitutional: General: She is not in acute distress. HENT: Head: Normocephalic and atraumatic. Right Ear: Tympanic membrane, ear canal and external ear normal. Left Ear: Tympanic membrane, ear canal and external ear normal. Nose: Nose normal. Mouth/Throat: Pharynx: Oropharynx is clear. Eyes: Conjunctiva/sclera: Conjunctivae normal. Cardiovascular: Rate and Rhythm: Normal rate and regular rhythm. Pulses: Normal pulses. Pulmonary: Effort: Pulmonary effort is normal. Abdominal: Palpations: Abdomen is soft. Musculoskeletal: General: Normal range of motion. Cervical back: Normal range of motion. Skin: General: Skin is warm. Capillary Refill: Capillary refill takes less than 2 seconds. Neurological: General: No focal deficit present. Mental Status: She is alert. Psychiatric: Mood and Affect: Mood normal. Spine: Spine Tenderness ROM Cervical 0 /10 Normal Thoracic 0 /10 Normal Lumbar 0 /10 Normal Musculoskeletal Joint Tenderness Swelling ROM Right shoulder absent absent normal Left shoulder absent absent normal Right elbow absent absent normal Left elbow absent absent normal Right wrist absent absent normal Left wrist absent absent normal Right hand grasp absent absent normal Left hand grasp absent absent normal Right hip absent absent normal Left hip absent absent normal Right knee absent absent normal Left knee absent absent normal Right ankle absent absent normal Left ankle absent absent normal Right foot absent absent normal Left foot absent absent normal CONSULTS: IM (p) PROCEDURES: None [x] Reviewed radiology reports (All radiology findings correlate to diagnoses/problem list) XR KNEE LEFT (3 VIEWS) Result Date: 01/10/2023 No acute osseous or soft tissue abnormality. XR ANKLE LEFT (MIN 3 VIEWS) Result Date: 01/10/2023 Mild soft tissue swelling without acute osseous abnormality. XR ANKLE RIGHT (MIN 3 VIEWS) Result Date: 01/10/2023 Diffuse soft tissue swelling without definite acute osseous abnormality. XR FOOT RIGHT (MIN 3 VIEWS) Result Date: 01/10/2023 No acute osseous or soft tissue abnormality. Diffuse degenerative joint disease. CT HEAD WO CONTRAST Result Date: 01/10/2023 No acute intracranial abnormality. CT HEAD WO CONTRAST Result Date: 01/10/2023 No acute transcortical infarct or intracranial hemorrhage. CT CERVICAL SPINE WO CONTRAST Result Date: 01/10/2023 New malalignment of the lateral masses of C1 and C2 elicited by patient's head turned towards the left during scanning, suggestive of rotatory atlantoaxial subluxation. Underlying instability is not excluded. No acute cervical spine fracture identified. MR follow-up may be useful as clinically warranted. MRI CERVICAL SPINE WO CONTRAST Result Date: 01/10/2023 No evidence for acute abnormality. The lateral masses at C1 and C2 are aligned. Multilevel degenerative change with canal stenosis at C3-4. Foraminal narrowing as described above. CT CHEST ABDOMEN PELVIS WO CONTRAST Additional Contrast? None Result Date: 01/10/2023 1. No acute traumatic process within the chest, abdomen and pelvis. 2. Hepatic cirrhosis with splenomegaly. 3. Cholelithiasis without CT evidence of acute cholecystitis. 4. Additional nonemergent findings, as above. CT LUMBAR SPINE TRAUMA RECONSTRUCTION Result Date: 01/10/2023 Remote compression deformity at L3 status post kyphoplasty. No acute vertebral body or disc space abnormality. Dependent infiltrates in the lung bases. CT THORACIC SPINE TRAUMA RECONSTRUCTION Result Date: 01/10/2023 No acute fracture or malalignment of the thoracic spine. Dependent infiltrates that may represent atelectasis. [] Incidental findings: [] Patient/family notified and letter given Assessment/Plan: SH C1/C2 malalignment Cleared by neurosurgery No other traumatic injuries or focal findings Trauma surgery to sign off Remainder of care and disposition per primary team Attending Note I have reviewed the above [facility] resident progress note and I either performed the king elements of the medical history and physical exam or was present when the resident performed them. I have discussed the findings, established the care plan and recommendations with resident Franny. The following confirms and/or amends the IMPRESSION, MEDICAL DECISION MAKING and PLAN from above. ASSESSMENT Patient Active Problem List Diagnosis Chronic back pain Stage 3 chronic kidney disease (HCC) Essential hypertension Bipolar disorder (HCC) Type 2 diabetes mellitus, with long-term current use of insulin (HCC) Obesity (BMI 30-39.9) Iron deficiency anemia Fall at home, initial encounter Frequency of urination Mixed incontinence Nocturia Positive FIT (fecal immunochemical test) Dyslipidemia Gastroesophageal reflux disease Cirrhosis of liver without ascites (HCC) COPD (chronic obstructive pulmonary disease) (HCC) Sepsis secondary to UTI (HCC) Moderate malnutrition (HCC) Complicated UTI (urinary tract infection) Hepatic encephalopathy (HCC) SUAD (acute kidney injury) (HCC) prerenal Closed compression fracture of third lumbar vertebra (HCC) Recurrent major depressive disorder, in partial remission (HCC) Non-alcoholic fatty liver disease Osteoporotic compression fracture of spine (HCC) Acute kidney injury superimposed on CKD (HCC) UTI (urinary tract infection) Cervical spondylosis Fall Allergy to multiple antibiotics Chronic congestive splenomegaly H/O anaphylactic shock Biliary cirrhosis (HCC) E. coli UTI MEDICAL DECISION MAKING AND PLAN No trauma issues identified Pasquale Bynum MD 01/13/2023 4:11 PM Images from the original note were not included. PROGRESS NOTE (Kar 2.0) PATIENT NAME: Angella Olson DATE: 01/11/2023 SURGEON: Misa PRIMARY CARE PHYSICIAN: CELIA Garcia CNP HD: # 1 ASSESSMENT Patient Active Problem List Diagnosis Chronic back pain Stage 3 chronic kidney disease (HCC) Essential hypertension Bipolar disorder (HCC) Type 2 diabetes mellitus, with long-term current use of insulin (HCC) Obesity (BMI 30-39.9) Iron deficiency anemia Fall at home, initial encounter Frequency of urination Mixed incontinence Nocturia Positive FIT (fecal immunochemical test) Dyslipidemia Gastroesophageal reflux disease Cirrhosis of liver without ascites (HCC) COPD (chronic obstructive pulmonary disease) (HCC) Sepsis secondary to UTI (HCC) Moderate malnutrition (HCC) Complicated UTI (urinary tract infection) Hepatic encephalopathy (HCC) SUAD (acute kidney injury) (HCC) prerenal Closed compression fracture of third lumbar vertebra (HCC) Recurrent major depressive disorder, in partial remission (HCC) Non-alcoholic fatty liver disease Osteoporotic compression fracture of spine (HCC) Acute kidney injury superimposed on CKD (HCC) UTI (urinary tract infection) MEDICAL DECISION MAKING AND PLAN No trauma issues identified, will sign off SUBJECTIVE Angella Olson is is unchanged since yesterday. OBJECTIVE VITALS: Temp: Temp: 97.6 F (36.4 C)Temp Av.1 F (36.7 C) Min: 97.6 F (36.4 C) Max: 98.5 F (36.9 C) BP Systolic (24hrs), Av , Min:92 , Max:143 Diastolic (24hrs), Av, Min:36, Max:75 Pulse Pulse Av.2 Min: 67 Max: 79 Resp Resp Av.4 Min: 14 Max: 18 Pulse ox SpO2 Av.2 % Min: 90 % Max: 99 % GENERAL: alert, no distress NEURO: positive findings: HEENT: Eye: positive findings: : LUNGS: clear to ausculation, without wheezes, rales or rhonci HEART: normal rate and regular rhythm ABDOMEN: soft, non-tender, non-distended, bowel sounds present in all 4 quadrants, and no guarding or peritoneal signs present EXTERMITY: no cyanosis, clubbing or edema No intake/output data recorded. Drain/tube output: No intake/output data recorded. LAB: CBC: Recent Labs 01/10/23 1245 01/11/23 0708 WBC 3.5 5.7 HGB 10.3* 10.6* HCT 32.6* 34.7* MCV 94.2 96.4 PLT See Reflexed IPF Result 104* BMP: Recent Labs 01/10/23 1245 01/10/23 1849 01/10/23 2150 01/10/23 2315 01/11/23 0708 NA 130* 134* -- -- 138 K 5.5* 4.7 -- -- 4.7 CL 92* 96* -- -- 101 CO2 29 30 -- -- 25 BUN 20 18 -- -- 15 CREATININE 1.60* 1.41* 1.38* -- 1.26* GLUCOSE 470* 288* -- 182 195* COAGS: No results for input(s): APTT, PROT, INR in the last 72 hours. RADIOLOGY: CXR: Pasquale Bynum MD 01/11/23, 12:11 PM Images from the original note were not included. [facility] Office: [phone] Jason Baker DO, Demetri Johnson DO, Mehrdad Gibbs DO, Guy Grady DO, Mayte Boyer MD, Sarah Marroquin MD, Keren Dickson MD, Aletha Nuno MD, Landry Stahl MD, Lilibeth Umana MD, King Blackwell DO, Paul cSott MD, Liza Ward DO, Mary Lou Olvera MD, Abner Chisholm MD, Benjamin Baker DO, Janet Malcolm MD, Dejon Lemus MD, Roberto Payne, DO, Shea Metcalf MD, Idalia Alexis MD, Audra Clark MD, Odessa Mccloud MD, Eren Turcios DO, Thee Richardson MD, Sondra Mcpherson, NEWSPAPER COPY EDITOR, Nisha Kaplan, NEWSPAPER COPY EDITOR, Tulio Corbett, NEWSPAPER COPY EDITOR, Tamiko Palafox, NEWSPAPER COPY EDITOR, Daksha Hill, [facility], Jennifer Tadeo, NEWSPAPER COPY EDITOR, Emily Fonseca, NEWSPAPER COPY EDITOR, Karen Marin, NEWSPAPER COPY EDITOR, Idalmis Diaz, NEWSPAPER COPY EDITOR, Shawna Arredondo, NEWSPAPER COPY EDITOR, INA GarciaC, Ramsey Almanza, DRY ROLLER, Lila Santa, NEWSPAPER COPY EDITOR, Buffy Groves, NEWSPAPER COPY EDITOR [facility] IN-PATIENT SERVICE [facility] Progress Note 01/11/2023 10:44 AM Name: Angella Olson Acct: [id number] Room: [facility]/0316-01 Day: 1 Admit Date: 01/10/2023 6:05 PM PCP: CELIA Garcia CNP Code Status: Full Code Subjective: C/C: Chief Complaint Patient presents with Fall C-1 and C-2 sublication, fall at fpc Interval History Status: . Brief History: Patient lives in independent/assisted living. Patient was found on the floor with a head strike. Patient was [facility] [place] [facility] [place]. EMR reviews reveal patient has been having abnormal behavior with more frequent falls over the past week or so. CT of the neck at [facility] shows possible malalignment of C1/C2. Patient was transported to this facility for trauma evaluation. Additional imaging was completed and malalignment was ruled out. Patient however does present with confusion. ED evaluation reveals UTI. Patient's symptoms are most likely acute encephalopathy secondary to UTI with ambulatory dysfunction. Review of Systems: Constitutional: negative for chills, fevers, sweats Respiratory: negative for cough, dyspnea on exertion, shortness of breath, wheezing Cardiovascular: negative for chest pain, chest pressure/discomfort, lower extremity edema, palpitations Gastrointestinal: negative for abdominal pain, constipation, diarrhea, nausea, vomiting Neurological: negative for dizziness, headache Medications: Allergies: Allergies Allergen Reactions Latex Shortness Of Breath and Rash Clindamycin/Lincomycin Anaphylaxis Erythromycin Base Anaphylaxis Fentanyl Anaphylaxis Gatifloxacin Anaphylaxis Indomethacin Shortness Of Breath, Nausea Only and Palpitations Iodine Tincture [Iodine] Shortness Of Breath, Itching and Swelling Pcn [Penicillins] Shortness Of Breath, Itching and Swelling Shellfish-Derived Products Shortness Of Breath, Itching and Swelling Sulfa Antibiotics Anaphylaxis Tetracyclines & Related Shortness Of Breath, Itching and Swelling Lidocaine Swelling Nitrofuran Derivatives Hives Phenazopyridine Hcl Hives Phenazopyridine Current Meds: Scheduled Meds: allopurinol 150 mg Oral Daily atenolol 50 mg Oral Daily atorvastatin 80 mg Oral Nightly divalproex 750 mg Oral Nightly ferrous sulfate 325 mg Oral Q48H FLUoxetine 40 mg Oral Daily budesonide-formoterol 2 puff Inhalation BID furosemide 20 mg Oral Daily gabapentin 100 mg Oral BID lactulose 30 g Oral BID pantoprazole 40 mg Oral QAM AC spironolactone 25 mg Oral Daily trospium 20 mg Oral BID AC sodium chloride flush 5-40 mL IntraVENous 2 times per day cefTRIAXone (ROCEPHIN) IV 1,000 mg IntraVENous Q24H heparin (porcine) 5,000 Units SubCUTAneous 3 times per day insulin glargine 20 Units SubCUTAneous BID Continuous Infusions: sodium chloride 125 mL/hr at 01/11/23 0052 sodium chloride dextrose PRN Meds: sodium chloride flush, sodium chloride, ondansetron OR ondansetron, acetaminophen OR acetaminophen, polyethylene glycol, glucose, dextrose bolus OR dextrose bolus, glucagon (rDNA), dextrose, oxyCODONE, LORazepam Data: Past Medical History: has a past medical history of Anxiety, Arthritis, Bipolar disorder (HCC), COPD (chronic obstructive pulmonary disease) (HCC), Depression, Fibromyalgia, Hypertension, Liver disease, Non-alcoholic fatty liver disease, Obesity, Pulmonary fibrosis (HCC), 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 Social History: reports that she quit smoking about 13 years ago. Her smoking use included cigarettes. She has a 30.00 pack-year smoking history. She has never used smokeless tobacco. She reports that she does not drink alcohol and does not use drugs. Family History: Family History Problem Relation Age of Onset Other Mother Interstitial Pulmonary fibrosis. Other Son stomach issues-rapid onset diarrhea Vitals: BP 129/67 Pulse 77 Temp 97.6 F (36.4 C) (Oral) Resp 16 LMP (LMP Unknown) SpO2 95% Temp (24hrs), Av.2 F (36.8 C), Min:97.6 F (36.4 C), Max:98.5 F (36.9 C) Recent Labs 01/10/23214901/10/23231401/11/23 0049 01/11/23 0754 POCGLU 230* 182* 144* 218* I/O (24Hr): No intake or output data in the 24 hours ending 01/11/23 1044 Labs: Hematology: Recent Labs 01/10/23 1245 01/11/23 0708 WBC 3.5 5.7 RBC 3.46* 3.60* HGB 10.3* 10.6* HCT 32.6* 34.7* MCV 94.2 96.4 MCH 29.8 29.4 MCHC 31.6 30.5 RDW 16.4* 16.7* PLT See Reflexed IPF Result 104* MPV -- 10.1 Chemistry: Recent Labs 01/09/23 0555 01/10/23 1245 01/10/23 1849 01/10/23214901/10/235 01/11/23 0027 01/11/23 0708 NA 132* 130* 134* -- -- -- 138 K 5.0 5.5* 4.7 -- -- -- 4.7 CL 95* 92* 96* -- -- -- 101 CO2 33* 29 30 -- -- -- 25 GLUCOSE 318* 470* 288* -- 182 -- 195* BUN 23 20 18 -- -- -- 15 CREATININE 1.48* 1.60* 1.41* 1.38* -- -- 1.26* MG 1.9 -- -- -- -- -- -- ANIONGAP 4* 9 8* -- -- -- 12 LABGLOM 38* 35* 41* -- -- -- 47* CALCIUM 9.3 9.4 9.3 -- -- -- 8.9 TROPHS -- -- -- -- -- <6 -- Recent Labs 01/10/23 1517 01/10/23 2150 01/10/23 2315 01/11/23 0049 01/11/23 0754 AMMONIA 30 -- -- -- -- POCGLU -- 230* 182* 144* 218* ABG: Lab Results Component Value Date/Time PHART 7.329 08/14/2021 09:12 AM [id number] 50.8 08/14/2021 09:12 AM PO2ART 85.6 08/14/2021 09:12 AM ORN0QFS 26.1 08/14/2021 09:12 AM NBEA 0.6 08/14/2021 09:12 AM PBEA NOT REPORTED 08/14/2021 09:12 AM K5YTOPBI 95.7 08/14/2021 09:12 AM FIO2 NOT REPORTED 08/14/2021 09:12 AM Lab Results Component Value Date/Time SPECIAL RT ARM 20 ML 12/29/2022 12:00 PM Lab Results Component Value Date/Time CULTURE NO GROWTH 5 DAYS 12/29/2022 12:00 PM Radiology: XR KNEE LEFT (3 VIEWS) Result Date: 01/10/2023 No acute osseous or soft tissue abnormality. XR ANKLE LEFT (MIN 3 VIEWS) Result Date: 01/10/2023 Mild soft tissue swelling without acute osseous abnormality. XR ANKLE RIGHT (MIN 3 VIEWS) Result Date: 01/10/2023 Diffuse soft tissue swelling without definite acute osseous abnormality. XR FOOT RIGHT (MIN 3 VIEWS) Result Date: 01/10/2023 No acute osseous or soft tissue abnormality. Diffuse degenerative joint disease. CT HEAD WO CONTRAST Result Date: 01/10/2023 No acute intracranial abnormality. CT HEAD WO CONTRAST Result Date: 01/10/2023 No acute transcortical infarct or intracranial hemorrhage. CT CERVICAL SPINE WO CONTRAST Result Date: 01/10/2023 New malalignment of the lateral masses of C1 and C2 elicited by patient's head turned towards the left during scanning, suggestive of rotatory atlantoaxial subluxation. Underlying instability is not excluded. No acute cervical spine fracture identified. MR follow-up may be useful as clinically warranted. MRI CERVICAL SPINE WO CONTRAST Result Date: 01/10/2023 No evidence for acute abnormality. The lateral masses at C1 and C2 are aligned. Multilevel degenerative change with canal stenosis at C3-4. Foraminal narrowing as described above. CT CHEST ABDOMEN PELVIS WO CONTRAST Additional Contrast? None Result Date: 01/10/2023 1. No acute traumatic process within the chest, abdomen and pelvis. 2. Hepatic cirrhosis with splenomegaly. 3. Cholelithiasis without CT evidence of acute cholecystitis. 4. Additional nonemergent findings, as above. CT LUMBAR SPINE TRAUMA RECONSTRUCTION Result Date: 01/10/2023 Remote compression deformity at L3 status post kyphoplasty. No acute vertebral body or disc space abnormality. Dependent infiltrates in the lung bases. CT THORACIC SPINE TRAUMA RECONSTRUCTION Result Date: 01/10/2023 No acute fracture or malalignment of the thoracic spine. Dependent infiltrates that may represent atelectasis. Physical Examination: General appearance: alert, cooperative and no distress Mental Status: oriented to person, place and time and normal affect Lungs: clear to auscultation bilaterally, normal effort Heart: regular rate and rhythm, no murmur Abdomen: soft, nontender, nondistended, normal bowel sounds, no masses, hepatomegaly, splenomegaly Extremities: no edema, redness, tenderness in the calves Skin: no gross lesions, rashes, induration Assessment: Hospital Problems Last Modified POA * (Principal) UTI (urinary tract infection) 01/10/2023 Yes Hepatic encephalopathy (HCC) 01/11/2023 Yes Non-alcoholic fatty liver disease 01/11/2023 Yes Stage 3 chronic kidney disease (HCC) 01/11/2023 Yes Essential hypertension 01/11/2023 Yes Type 2 diabetes mellitus, with long-term current use of insulin (HCC) 01/11/2023 Yes Gastroesophageal reflux disease 01/11/2023 Yes COPD (chronic obstructive pulmonary disease) (HCC) 01/11/2023 Yes Plan: UTI Toxic metabolic encephalopathy NAFLD NIDDM Dispo pending return to baseline after iv abx and will dc back to independent living Does have hx of recurrent uti will wait on C&S Dejon Lemus MD 01/11/2023 10:44 AM SPIRITUAL CARE DEPARTMENT - [facility] Emergency/Trauma Note PATIENT NAME: Angella Olson Shift date: 01/10/2023 Shift day: Thursday Shift # 3 Room # Name: Angella Olson Age: 67 y.o. Gender: female Jainism: Yarsani Place of hoahaoism: Unknown Trauma/Incident type: Adult Trauma Consult Admit Date & Time: 01/10/2023 6:05 PM TRAUMA NAME: N/A ADVANCE DIRECTIVES IN CHART? Yes NAME OF DECISION MAKER: Per scanned Advance Directive from 11/07/2020, patient's son, Keny Peterson ([phone]), is patient's primary decision maker. RELATIONSHIP OF DECISION MAKER TO PATIENT: Patient's Son PATIENT/EVENT DESCRIPTION: Angella Olson is a 67 y.o. female who arrived as a transfer from [facility] to ED25 and was paged out as an Adult Trauma Consult due to a Fall. Patient was awake and talking when bulk station agent arrived to room. Pt to be admitted to . SPIRITUAL [id number]: Director Of Pulmonary Unit responded to page and gathered patient information outside room. Patient shared that she fell at home, first thing this morning. Director Of Pulmonary Unit later learned that patient fell at her fpc. Patient complained of back pain during visit. Patient confirmed that her main support is her son, Keny. Patient confirmed that he will not be coming to the hospital tonight. Director Of Pulmonary Unit reviewed patient's chart and noted scanned Advance Directives from October 2020. Director Of Pulmonary Unit experienced patient as pleasantly confused during visit. Per chart, patient has also been diagnosed with a UTI. Patient was coping well and receptive of bulk station agent's visit. PATIENT BELONGINGS: No belongings noted ANY BELONGINGS OF SIGNIFICANT VALUE NOTED: N/A REGISTRATION STAFF NOTIFIED? Yes WHAT IS YOUR SPIRITUAL CARE PLAN FOR THIS PATIENT?: [facility] can make follow-up visit, per request. [facility] can be reached 09/03 via [employer] 01/10/232203 Encounter Summary Service Provided For: Patient Referral/Consult From: Multi-disciplinary team (Adult Trauma Consult) Support System Children Last Encounter 01/10/23 Complexity of Encounter Low Begin Time 2203 End Time 2217 Total Time Calculated 14 min Encounter Type Initial Screen/Assessment Crisis Type Trauma Spiritual/Emotional needs Type Spiritual Support Assessment/Intervention/Outcome Assessment Calm;Coping;Powerlessness Intervention Active listening;Discussed illness injury and it s impact;Explored/Affirmed feelings, thoughts, concerns;Explored Coping Skills/Resources;Nurtured Hope;Sustaining Presence/Ministry of presence Outcome Comfort;Coping;Receptive Plan and Referrals Plan/Referrals Continue to visit, (comment) (as needed) . Spiritual Care Department [facility] [phone] documented in this encounter [facility] Work Phone: 01-14-2023 Hospital Discharge instructions King Blackwell DO - 01/14/2023 11:29 AM EDT See PCP outpatient Discuss sleep hygiene and medications See infectious disease if needed. Milad Mitchell RN - 01/14/2023 10:31 AM EDT Continuity of Care Form Patient Name: Angella Olson : 1955 Admit date: 01/10/2023 Discharge date: 01/15/2023 Code Status Order: Full Code Advance Directives: Admitting Physician: No admitting provider for patient encounter. PCP: CELIA Garcia CNP Discharging Nurse: Milad Mitchell Discharging Hospital Unit/Room#: 0316/0316-01 Discharging Unit Emergency Contact: Extended Emergency Contact Information Primary Emergency Contact: Keny Peterson [address]: [address] [place] [address] States of [place] Mobile Relation: Child Director Drug needed? No Secondary Emergency Contact: Tamanna Strong Mobile Relation: [id number]-[id number] Preferred language: Moroccan Director Drug needed? No Past Surgical History: Past Surgical History: Procedure Laterality Date ABDOMEN SURGERY Removal of scar tissue per Laparoscopy procedure. BACK SURGERY Donor cervical fusion. SECTION [address]Eric Sandoval-gastro in [place], [place]-unsure when ESOPHAGOGASTRODUODENOSCOPY 10/2021 [facility] ESOPHAGOGASTRODUODENOSCOPY 06/2021 [facility] EYE SURGERY Retinal surgery. KYPHOSIS SURGERY 10/06/2022 [facility] Left 12/2019 Left middle finger. OTHER SURGICAL HISTORY Removal of mass from left mid arm. OTHER SURGICAL HISTORY OTHER SURGICAL HISTORY Right NERVE RADIOFREQUENCY ABLATION-L3,4,5 (Right: Back)- Dr. Watts PAIN MANAGEMENT PROCEDURE Bilateral 11/26/2021 LUMBAR FACET - L4-5 L5-SI performed by Darell Watts MD at [facility] OR PAIN MANAGEMENT PROCEDURE Bilateral 01/21/2022 LUMBAR FACET - L4-5, L5-S1 performed by Darell Watts MD at [facility] OR PAIN MANAGEMENT PROCEDURE Right 03/18/2022 NERVE RADIOFREQUENCY ABLATION-L3,4,5 performed by Darell Watts MD at [facility] OR PAIN MANAGEMENT PROCEDURE N/A 06/10/2022 EPIDURAL STEROID INJECTION- L5-SI, RIGHT OF MIDLINE performed by Darell Watts MD at [facility] OR SPINE SURGERY N/A 10/06/2022 KYPHOPLASTY - L3 performed by Sosa Rodriguez DO at [facility] OR UPPER GASTROINTESTINAL ENDOSCOPY [facility] unsure when Immunization History: Immunization History Administered Date(s) Administered COVID-19, J&J, (age 18y+), IM, 0.5 mL 10/23/2020, 11/23/2020 COVID-19, PFIZER Bivalent, DO NOT Dilute, (age 12y+), IM, 30 mcg/0.3 mL 05/11/2022 Influenza, FLUAD, (age 65 y+), Adjuvanted, 0.5mL 05/11/2022 Influenza, FLUARIX, FLULAVAL, FLUZONE (age 6 mo+) AND AFLURIA, (age 3 y+), PF, 0.5mL 05/30/2019 Influenza, High Dose (Fluzone 65 yrs and older) 05/17/2020 Pneumococcal, PPSV23, PNEUMOVAX 23, (age 2y+), SC/IM, 0.5mL 10/18/2019 TDaP, ADACEL (age 10y-64y), BOOSTRIX (age 10y+), IM, 0.5mL 11/23/2019 Active Problems: Patient Active Problem List Diagnosis Code Chronic back pain M54.9, G89.29 Stage 3 chronic kidney disease (HCC) N18.30 Essential hypertension I10 Bipolar disorder (HCC) F31.9 Type 2 diabetes mellitus, with long-term current use of insulin (HCC) E11.9, Z79.4 Obesity (BMI 30-39.9) E66.9 Iron deficiency anemia D50.9 Fall at home, initial encounter W19.XXXA, Y92.009 Frequency of urination R35.0 Mixed incontinence N39.46 Nocturia R35.1 Positive FIT (fecal immunochemical test) R19.5 Dyslipidemia E78.5 Gastroesophageal reflux disease K21.9 Cirrhosis of liver without ascites (HCC) K74.60 COPD (chronic obstructive pulmonary disease) (HCC) J44.9 Sepsis secondary to UTI (HCC) A41.9, N39.0 Moderate malnutrition (HCC) E44.0 Complicated UTI (urinary tract infection) N39.0 Hepatic encephalopathy (HCC) K76.82 SUAD (acute kidney injury) (HCC) prerenal N17.9 Closed compression fracture of third lumbar vertebra ([facility]) S32.030A Recurrent major depressive disorder, in partial remission (HCC) F33.41 Non-alcoholic fatty liver disease K76.0 Osteoporotic compression fracture of spine (HCC) M80.88XA Acute kidney injury superimposed on CKD (HCC) N17.9, N18.9 UTI (urinary tract infection) N39.0 Cervical spondylosis M47.812 Fall W19.XXXA Allergy to multiple antibiotics Z88.1 Chronic congestive splenomegaly D73.2 H/O anaphylactic shock Z87.892 Biliary cirrhosis (HCC) K74.5 E. coli UTI N39.0, B96.20 Isolation/Infection: Isolation No Isolation Patient Infection Status Infection Onset Added Last Indicated Last Indicated By Review Planned Expiration Resolved Resolved By None active Resolved COVID-19 (Rule Out) 09/06/22 09/06/22 09/06/22 COVID-19, Rapid (Ordered) 09/06/22 Rule-Out Test Resulted COVID-19 (Rule Out) 05/12/22 05/12/22 05/12/22 COVID-19, Rapid (Ordered) 05/12/22 Rule-Out Test Resulted COVID-19 (Rule Out) 08/14/21 08/14/21 08/14/21 COVID-19, Rapid (Ordered) 08/14/21 Rule-Out Test Resulted COVID-19 (Rule Out) 08/08/21 08/08/21 08/08/21 COVID-19, Rapid (Ordered) 08/08/21 Rule-Out Test Resulted COVID-19 (Rule Out) 06/15/21 06/15/21 06/15/21 SARS-CoV-2 NAAT (Rapid) (Ordered) 06/15/21 Rule-Out Test Resulted COVID-19 (Rule Out) 02/07/21 02/07/21 02/07/21 COVID-19, Rapid (Ordered) 02/07/21 Rule-Out Test Resulted COVID-19 (Rule Out) 04/30/20 04/30/20 04/30/20 COVID-19, PCR (Ordered) 04/30/20 Rule-Out Test Resulted Nurse Assessment: Last Vital Signs: BP (!) 149/95 Pulse 83 Temp 98.2 F (36.8 C) (Oral) Resp 18 Wt 181 lb (82.1 kg) LMP (LMP Unknown) SpO2 93% BMI 31.07 kg/m Last documented pain score (0-10 scale): Pain Level: 6 Last Weight: Wt Readings from Last 1 Encounters: 01/14/23 181 lb (82.1 kg) Mental Status: oriented and does sun down and some times takes a little bit to reorient in the morning IV Access: - None Nursing Mobility/ADLs: Walking Assisted Transfer Assisted Bathing Assisted Dressing Assisted Toileting Assisted Feeding Independent Fountain Worker Independent Med Delivery whole Wound Care Documentation and Therapy: Incision 10/06/22 Back Lower;Medial (Active) Number of days: 99 Elimination: Continence: Bowel: sometimes Bladder: No Urinary Catheter: None Colostomy/Ileostomy/Ileal Conduit: No Date of Last BM: 01/15/2023 Intake/Output Summary (Last 24 hours) at 01/14/2023 1030 Last data filed at 01/14/2023 0600 Gross per 24 hour Intake 3655.39 ml Output 1050 ml Net 2605.39 ml I/O last 3 completed shifts: In: 3655.4 [I.V.:3655.4] Out: 1900 [Urine:1900] Safety Concerns: Sundowners Sundrome, History of Falls (last 30 days), and At Risk for Falls Impairments/Disabilities: Vision Nutrition Therapy: Current Nutrition Therapy: - Oral Diet: General Routes of Feeding: Oral Liquids: No Restrictions Daily Fluid Restriction: no Last Modified Barium Swallow with Video (Video Swallowing Test): not done Treatments at the Time of Hospital Discharge: Respiratory Treatments: n/a Oxygen Therapy: is not on home oxygen therapy. Ventilator: - No ventilator support Rehab Therapies: Physical Therapy and Occupational Therapy Weight Bearing Status/Restrictions: No weight bearing restrictions Other Medical Equipment (for information only, NOT a DME order): walker, bath bench, and bedside commode Other Treatments: n/a Patient's personal belongings (please select all that are sent with patient): Personal belongings RN SIGNATURE: CASE MANAGEMENT/SOCIAL WORK SECTION Inpatient Status Date: 01/10/23 Readmission Risk Assessment Score: Readmission Risk Risk of Unplanned Readmission: 31 Discharging to Facility/ Agency Name: [facility] Address: Fax: Dialysis Facility (if applicable) Name: Address: Dialysis Schedule: Phone: Fax: Stripper Color/Legal Recovery Specialist signature: PHYSICIAN SECTION Prognosis: Good Condition at Discharge: Stable Rehab Potential (if transferring to Rehab): Good Recommended Labs or Other Treatments After Discharge: See PCP and ID outpatient. Physician Certification: I certify the above information and transfer of Angella Olson is necessary for the continuing treatment of the diagnosis listed and that she requires [facility] for greater 30 days. Update Admission H&P: No change in H&P PHYSICIAN SIGNATURE: documented in this encounter [facility] Work Phone: 11-29-2022 Hospital Discharge instructions Carlos Mitchell MD - 11/29/2022 3:01 PM EDT Please follow-up with primary care physician next 1 to 2 days to further evaluate and treat your condition. Take the medications we prescribed as directed. The following attachments cannot be sent through Care Everywhere.Magnesium Test (Moroccan)documented in this encounter [employer] Phone: 11-25-2022 History of Present illness Narrative Report called to [facility]. Patient is approved to go back to [facility] under skilled care. The discharge paper work done and fax. She will go by jordyn campos. 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, left Type 2 diabetes mellitus without complication (HCC) PATIENT ASSESSMENT LABORATORY DATA Hematology: Lab Results Component Value Date/Time WBC 2.6 11/23/2022 06:25 AM RBC 3.10 11/23/2022 06:25 AM HGB 9.3 11/23/2022 06:25 AM HCT 28.8 11/23/2022 06:25 AM PLT See Reflexed IPF Result 11/23/2022 06:25 AM Chemistry: Lab Results Component Value Date/Time PHART 7.329 08/14/2021 09:12 AM [id number] 50.8 08/14/2021 09:12 AM PO2ART 85.6 08/14/2021 09:12 AM A3DBUYNB 95.7 08/14/2021 09:12 AM AQZ3NCW 26.1 08/14/2021 09:12 AM PBEA NOT REPORTED 08/14/2021 09:12 AM VITALS Heart Rate: 73 Resp: 16 BP: (!) 114/58 SpO2: 90 % O2 Device: None (Room air) Temp: 98.5 F (36.9 C) SKIN COLOR [x] Normal [] Pale [] Dusky [] Cyanotic RESPIRATORY PATTERN [x] Normal [] Dyspnea [] Singh-Bhatia [] Kussmaul [] Biots AMBULATORY [] Yes [] No [x] With Assistance PEAK FLOW Predicted: Personal Best: Patient Acuity 0 1 2 3 4 Score Level of Consciousness (LOC) [x] Alert & Oriented or Pt normal LOC [] Confused;follows directions [] Confused & uncooper-ative [] Obtunded [] Comatose 0 Respiratory Rate (RR) [x] Reg. rate & pattern. 12 - 20 bpm [] Increased RR. Greater than 20 bpm [] SOB w/ exertion or RR greater than 24 bpm [] Access- ory muscle use at rest. Abn. resp. [] SOB at rest. 0 Bilateral Breath Sounds (BBS) [x] Clear [] Diminish-ed bases [] Diminish-ed t/o, or rales [] Sporadic, scattered wheezes or rhonchi [] Persistentwheezes and, or absent BBS 0 Cough [x] Strong, effective, & non-prod. [] Effective & prod. Less than 25 ml (2 TBSP) over past 24 hrs [] Ineffective & non-prod to less than 25 ML over past 24 hrs [] Ineffective and, or greater than 25 ml sputum prod. past 24 hrs. [] Nonspon- taneous; Requires suctioning 0 Pulmonary History (PULM HX) [] No smoking and no chronic pulmonary history [] Former smoker. Quit over 12 mos. ago [] Current smoker or quit w/ in 12 mos [x] Pulm. History and, or 20 pk/yr smoking hx [] Admitted w/ acute pulm. dx and, or has been admitted w/ pulm. dx 2 or more times over past 12 mos 3 Surgical History this Admit (SURG HX) [x] No surgery [] General surgery [] Lower abdominal [] Thoracic or upper abdominal [] Thoracic w/ pulm. disease 0 Chest X-Ray (CXR)/CT Scan [x] Clear or not applicable [] Not available [] Atelectasis or pleural effusions [] Localized infiltrate or pulm. edema [] Con-solidated Infiltrates, bilateral, or in more than 1 lobe 0 TOTAL ACUITY: 3 CARE PLAN If Acuity Level is 2, 3, or 4 in any of the following: [] BILATERAL BREATH SOUNDS (BBS) [x] PULMONARY HISTORY (PULM HX) [] Respiratory Rate (RR) Goal: Improve respiratory functions in patients with airway disease and decrease WOB [x] AEROSOL PROTOCOL Total Acuity: 14-28 [] Secondary Assessment in 24 hrs Total Acuity: 9-13 [] Secondary Assessment in 24 hrs Total Acuity: 4-8 [] Secondary Assessment in 24 hrs Total Acuity: 0-3 [x] Secondary Assessment in 48 hrs HHN AEROSOL THERAPY with [physician-ordered bronchodilator(s)] q 4 & Albuterol PRN q2 hrs. Breath-Actuated Neb if BBS Acuity = 4, and pt. can use MP. Notify physician if condition deteriorates. HHN AEROSOL THERAPY with [physician-ordered bronchodilator(s)] QID and Albuterol PRN q4 hrs. Breath-Actuated Neb if BBS Acuity = 4, and pt. can use MP. Notify physician if condition deteriorates. MDI THERAPY with 2 actuations of [physician-ordered bronchodilator(s)] via spacer TID Albuterol and PRN q4 hrs. If unable to utilize MDI: HHN [physician-ordered bronchodilator(s)] TID and Albuterol PRN q4 hrs. Notify physician if condition deteriorates. MDI THERAPY with [physician-ordered bronchodilator(s)] via spacer TID PRN. If unable to utilize MDI: HHN [physician-ordered bronchodilator(s)] TID PRN. Notify physician if condition deteriorates. If Acuity Level is 2, 3, or 4 in any of the following: [] COUGH [] SURGICAL HISTORY (SURG HX) [] CHEST XRAY (CXR) Goal: Improvement in sputum mobilization in patients with ineffective airway clearance. Reverse atelectasis. [] Bronchopulmonary Hygiene Protocol Total Acuity: 14-28 [] Secondary Assessment in 24 hrs Total Acuity: 9-13 [] Secondary Assessment in 24 hrs Total Acuity: 4-8 [] Secondary Assessment in 24 hrs Total Acuity: 0-3 [] Secondary Assessment in 48 hrs METANEB QID with [physician-ordered bronchodilator(s)] if CXR Acuity = 4; otherwise: PD&P, Oscillatory Therapy, or Vest QID & PRN AND PEP QID & PRN NT Sxn PRN for ineffective cough METANEB QID with [physician-ordered bronchodilator(s)] if CXR Acuity = 4; otherwise: PD&P, Oscillatory Therapy or Vest QID & PRN AND PEP QID & PRN NT Sxn PRN for ineffective cough PD&P, Oscillatory Therapy, or Vest TID & PRN AND PEP TID & PRN Instruct patient to self-perform IS q1hr WA If Acuity Level is 2 or above in the following: [] PULMONARY HISTORY (PULM HX) Goal: Assist patient in quitting smoking to slow or stop the progression of lung disease. [] Smoking Cessation Protocol SMOKING CESSATION EDUCATION provided according to policy RT_201: (miroslava with an X) ____Yes ____ No ____ NA Smoking Cessation Booklet given: ____Yes ____No ____Patient Refused Progress Note SUBJECTIVE: Patient seen for f/u of Acute kidney injury superimposed on CKD (HCC). She resting in bed no complaints. ROS: Constitutional: negative for fevers, and negative for chills. Respiratory: negative for shortness of breath, negative for cough, and negative for wheezing Cardiovascular: negative for chest pain, and negative for palpitations Gastrointestinal: negative for abdominal pain, negative for nausea,negative for vomiting, negative for diarrhea, and negative for constipation All other systems were reviewed with the patient and are negative unless otherwise stated in HPI OBJECTIVE: Vitals: Vitals: 11/25/22 0630 BP: (!) 114/58 Pulse: 76 Resp: 16 Temp: 98.5 F (36.9 C) SpO2: 90% Weight: 187 lb 1.6 oz (84.9 kg) Height: 5' 3 (160 cm) Weight Wt Readings from Last 3 Encounters: 11/25/22 187 lb 1.6 oz (84.9 kg) 10/24/22 168 lb 6.4 oz (76.4 kg) 10/09/22 177 lb 4 oz (80.4 kg) Body mass index is 33.14 kg/m . 24HR INTAKE/OUTPUT: Intake/Output Summary (Last 24 hours) at 11/25/2022 0700 Last data filed at 11/25/2022 0525 Gross per 24 hour Intake 700 ml Output 950 ml Net -250 ml Exam: GEN: Awake, alert and oriented x3. EYES: EOMI, pupils equal NECK: Supple. No lymphadenopathy. No carotid bruit CVS: regular rate and rhythm, no audible murmur PULM: CTA, no wheezes, rales or rhonchi, no acute respiratory distress ABD: Bowels sounds normal. Abdomen is soft. No distention. no tenderness to palpation. EXT: no edema bilaterally . No calf tenderness. NEURO: Moves all extremities. Motor and sensory are grossly intact SKIN: No rashes. No skin lesions. Diagnostic Data: Complete Blood Count: Recent Labs 11/23/22 0625 WBC 2.6* RBC 3.10* HGB 9.3* HCT 28.8* MCV 92.9 MCH 30.0 MCHC 32.3 RDW 18.6* PLT See Reflexed IPF Result Last 3 Blood Glucose: Recent Labs 11/23/22 0625 11/24/22 0540 11/25/22 0545 GLUCOSE 148* 191* 151* Comprehensive Metabolic Profile: Recent Labs 11/23/22 0625 11/24/22 0540 11/25/22 0545 NA 140 136 138 K 4.8 5.3 5.3 CL 106 103 105 CO2 29 28 28 BUN 11 12 14 CREATININE 1.08* 1.21* 1.07* GLUCOSE 148* 191* 151* CALCIUM 8.8 8.7 8.8 PROT 5.7* 5.5* 5.7* LABALBU 2.7* 2.7* 2.7* BILITOT 0.2* 0.2* 0.2* ALKPHOS 158* 162* 157* AST 70* 48* 43* ALT 41* 34* 32 Urinalysis: Lab Results Component Value Date/Time NITRU POSITIVE 11/18/2022 09:05 PM COLORU Yellow 11/18/2022 09:05 PM PHUR 5.5 11/18/2022 09:05 PM WBCUA 50 TO 100 11/18/2022 09:05 PM RBCUA 0 TO 2 11/18/2022 09:05 PM MUCUS TRACE 12/27/2021 11:20 AM TRICHOMONAS NOT REPORTED 08/14/2021 10:00 AM YEAST NOT REPORTED 08/14/2021 10:00 AM BACTERIA 4+ 11/18/2022 09:05 PM CLARITYU clear 08/07/2021 09:45 AM SPECGRAV 1.015 11/18/2022 09:05 PM LEUKOCYTESUR MODERATE 11/18/2022 09:05 PM UROBILINOGEN Normal 11/18/2022 09:05 PM BILIRUBINUR NEGATIVE 11/18/2022 09:05 PM BILIRUBINUR negative 08/07/2021 09:45 AM BLOODU negative 08/07/2021 09:45 AM GLUCOSEU NEGATIVE 11/18/2022 09:05 PM KETUA NEGATIVE 11/18/2022 09:05 PM AMORPHOUS NOT REPORTED 08/14/2021 10:00 AM HgBA1c: Lab Results Component Value Date/Time LABA1C 7.0 11/05/2022 06:40 AM Lactic Acid: Lab Results Component Value Date/Time LACTA 1.5 09/06/2022 10:40 PM LACTA 2.4 09/06/2022 08:40 PM LACTA 1.2 08/07/2022 11:05 PM Troponin: No results for input(s): TROPONINI in the last 72 hours. CRP: No results for input(s): CRP in the last 72 hours. Radiology/Imaging: US RENAL COMPLETE Final Result Unremarkable ultrasound of the kidneys. Unremarkable appearance urinary bladder with postvoid residual [address] HEAD WO CONTRAST Final Result No acute intracranial abnormality. Redemonstration of age-appropriate atrophy. ASSESSMENT / PLAN: MEDICAL DECISION MAKING: Primary Problem(s): Acute kidney injury superimposed on CKD (HCC) Condition is improving Treatment plan: Nephrology consult appreciated - notes reviewed Imaging: no further imaging studies ordered today Medication Monitoring / High Risk Medications: none E coli UTI Condition is improving Treatment plan: Continue current treatment Imaging: no further imaging studies ordered today Medications: Continue Keflex Nutrition status: Well developed, well nourished with no malnutrition Ship Worker consult initiated Hospital Prophylaxis: DVT: SCD's Stress Ulcer: PPI Disposition: Shared decision making: All test results, treatment options and disposition options were discussed with the patient today Social determinants of health that may impact management: none Code status: Full Code Disposition: Discharge plan is [facility] today awaiting [facility] Advanced Care Planning documentation: [x] I have confirmed that the patient's Advance Care Plan is present, Code Status is documented, or surrogate decision maker is listed in the patient's medical record [If yes , STOP HERE] [] The patient's Advance Care Plan is NOT present because: [] I confirmed today that the patient does not wish or was not able to name a surrogate decision maker or provide and advance care plan. [] Hospice care is currently being provided or has been provided within the calendar year. [] I did NOT confirm today the presence of an Advance Care Plan or surrogate decision maker documented within the patient's medical record. [DOES NOT SATISFY [facility] PERFORMANCE] Sondra Guillory APRN - MABEL , COMMERCIAL HVAC SERVICE TECHNICIAN, CHIEF TALENT OFFICER-C [facility] 11/25/2022, 7:00 AM Associated attestation - Libby Crespo MD - 11/25/2022 7:37 AM EDT Images from the original note were not included. [address] , [place], [place], [address] Attestation Patient: Angella Olson Date of Admission: 11/18/2022 8:23 PM Hospital Day # 7 Date of Evaluation: 11/25/2022 I personally evaluated and examined the patient [id number] in conjunction with the PA/CHIEF TALENT OFFICER and agree with the management and dispostition of the patient. Please see the PA/CHIEF TALENT OFFICER's note for full details. My king findings are: SUBJECTIVE: Patient seen for follow up of Acute kidney injury superimposed on CKD (HCC). Patient seen and examined at the bed side , no new acute events overnight and no new complains. Notes from nursing staff and Consults had been reviewed, and the overnight progress had been checked with the nursing staff as well. OBJECTIVE: Vitals: Temp: 98.5 F (36.9 C) BP: (!) 114/58 Resp: 16 Heart Rate: 76 SpO2: 90 % Weight Wt Readings from Last 3 Encounters: 11/25/22 187 lb 1.6 oz (84.9 kg) 10/24/22 168 lb 6.4 oz (76.4 kg) 10/09/22 177 lb 4 oz (80.4 kg) Body mass index is 33.14 kg/m . 24HR INTAKE/OUTPUT: Intake/Output Summary (Last 24 hours) at 11/25/2022 0736 Last data filed at 11/25/2022 0525 Gross per 24 hour Intake 700 ml Output 950 ml Net -250 ml Exam: GEN: Awake, alert and oriented to person, place. EYES: EOMI, pupils equal NECK: Supple. No lymphadenopathy. No carotid bruit CVS: regular rate and rhythm, no audible murmur PULM: CTA, no wheezes, rales or rhonchi, no acute respiratory distress ABD: Bowels sounds normal. Abdomen is soft. No distention. no tenderness to palpation. EXT: no edema bilaterally . No calf tenderness. NEURO: Moves all extremities. Motor and sensory are grossly intact SKIN: No rashes. No skin lesions. DATA: Complete Blood Count: Recent Labs 11/23/22624 WBC 2.6* RBC 3.10* HGB 9.3* HCT 28.8* MCV 92.9 RDW 18.6* PLT See Reflexed IPF Result Recent Labs 11/23/22 06 SEGS 55 NEUTROABS 1.43* LYMPHOPCT 35 LYMPHSABS 0.90* MONOPCT 8 EOSRELPCT 2 BASOPCT 0 IMMGRAN 0 CMP: Lab Results Component Value Date GLUCOSE 151 (H) 11/25/2022 BUN 14 11/25/2022 CREATININE 1.07 (H) 11/25/2022 NA 138 11/25/2022 K 5.3 11/25/2022 CALCIUM 8.8 11/25/2022 CL 105 11/25/2022 CO2 28 11/25/2022 PROT 5.7 (L) 11/25/2022 LABALBU 2.7 (L) 11/25/2022 BILITOT 0.2 (L) 11/25/2022 ALKPHOS 157 (H) 11/25/2022 ALT 32 11/25/2022 AST 43 (H) 11/25/2022 UA: Lab Results Component Value Date COLORU Yellow 11/18/2022 CLARITYU clear 08/07/2021 SPECGRAV 1.015 11/18/2022 WBCUA 50 TO 100 11/18/2022 RBCUA 0 TO 2 11/18/2022 EPITHUA 0 TO 2 11/18/2022 LEUKOCYTESUR MODERATE (A) 11/18/2022 GLUCOSEU NEGATIVE 11/18/2022 BLOODU negative 08/07/2021 KETUA NEGATIVE 11/18/2022 PROTEINU NEGATIVE 11/18/2022 HGBUR TRACE (A) 11/18/2022 CASTUA 0 TO 2 FINE GRANULAR 12/27/2021 CRYSTUA NOT REPORTED 08/14/2021 BACTERIA 4+ (A) 11/18/2022 YEAST NOT REPORTED 08/14/2021 Lactic Acid: Lab Results Component Value Date/Time LACTA 1.5 09/06/2022 10:40 PM LACTA 2.4 09/06/2022 08:40 PM LACTA 1.2 08/07/2022 11:05 PM High Sensitivity Troponin: No results for input(s): TROPHS in the last 72 hours. Radiology/Imaging: US RENAL COMPLETE Final Result Unremarkable ultrasound of the kidneys. Unremarkable appearance urinary bladder with postvoid residual [address] HEAD WO CONTRAST Final Result No acute intracranial abnormality. Redemonstration of age-appropriate atrophy. ASSESSMENT: Principal Problem: Acute kidney injury superimposed on CKD (HCC) Active Problems: Moderate malnutrition (HCC) Complicated UTI (urinary tract infection) Stage 3 chronic kidney disease (HCC) Essential hypertension Cirrhosis of liver without ascites (HCC) Resolved Problems: * No resolved hospital problems. * PLAN: I agree with the plan as outlined in the CHIEF TALENT OFFICER/PA's note Disposition: Discharge plan is discharge anytime, pending insurance approval. Please note that this chart was generated using voice recognition [employer]eval[employer] dictation software. Although every effort was made to ensure the accuracy of this automated igniter assembler, some errors in igniter assembler may have occurred. Libby Crespo MD 11/25/2022 7:36 AM Pt vitals and assessment completed, see flowsheet. Pt A&Ox4, breathing normal. Pt denies pain or any further needs at this time, call light within reach, will continue to monitor. Reassessment completed at this time. Vitals taken and documented. Patient encouraged to ask questions. Patient denies pain or complaints. Call light and bed side table within reach. Side rails up times two. Patient in chair, watching television. Patient educated on medication to be given tonight and physician's orders to be completed. Patient stated understanding. Patient encouraged to ask questions. Patient denies of any questions at this time. Vitals taken and documented. See flow sheet for details. Assessment completed and documented. Patient alert, oriented x4. Calm, pleasant. Speech clear. Lung sounds clear in upper bilateral lobes of lungs and right middle lobe of lung. Diminished at bilateral bases of lungs. No cough noted. Abdomen round, soft, tenderness to palpation in LLQ and RLQ. Bowel sounds active in all four quadrants. Non-pitting edema noted in bilateral lower extremities. Scattered ecchymosis noted. Noted scars on lower back from previous surgery. Patient denies of chest pain, numbness, tingling, or shortness of breath. Patient denies needs or concerns at this time. Call light and over bed table in reach. Physical Therapy Facility/Department: [facility] Daily Treatment Note NAME: Angella Olson : 1955 Date of Service: 11/24/2022 Discharge Recommendations: Continue to assess pending progress, Subacute/Halfway Facility, IP Rehab, Home with Home health PT Patient Diagnosis(es): The primary encounter diagnosis was Acute kidney injury (HCC). Diagnoses of Acute cystitis without hematuria, Dehydration, Bipolar disorder with depression (HCC), and Cirrhosis of liver without ascites, unspecified hepatic cirrhosis type (HCC) were also pertinent to this visit. Assessment Assessment: Transfers completed with CGA/SBA, bed mobility SBA/SUP. Gait completed with CGA/SBA and RW 40ft + 20ft. Commode use and transfer:CGA with increased time to complete task. Pt. required increased v/c to stay on task. Pt. left in chair with chair alarm on and RN in room. Activity Tolerance: Patient limited by pain;Patient limited by fatigue Plan Physcial Therapy Plan General Plan: 2 times a day 7 days a week Current Treatment Recommendations: Strengthening;ROM;Balance training;Functional mobility training;Transfer training;Gait training;Neuromuscular re-education;Patient/Caregiver education & training;Safety education & training;Home exercise program;Therapeutic activities;Endurance training Restrictions Restrictions/Precautions Restrictions/Precautions: General Precautions, Fall Risk Subjective Subjective Subjective: Pt. in bed upon arrival, agreeable to therapy. Stated she feels better than earlier today. Pain: 5/10 LBP Orientation Overall Orientation Status: Within Functional Limits Objective Bed Mobility Training Bed Mobility Training: Yes Overall Level of Assistance: Stand-by assistance;Assist X1;Supervision Interventions: Verbal cues;Safety awareness training Rolling: Stand-by assistance;Assist X1;Supervision Supine to Sit: Stand-by assistance;Assist X1 Sit to Supine: Assist X1;Supervision;Stand-by assistance Scooting: Assist X1;Supervision;Stand-by assistance Transfer Training Transfer Training: Yes Overall Level of Assistance: Stand-by assistance;Assist X1;Additional time Interventions: Safety awareness training;Verbal cues Sit to Stand: Assist X1;Stand-by assistance Stand to Sit: Stand-by assistance;Assist X1 Stand Pivot Transfers: Assist X1;Additional time;Stand-by assistance Toilet Transfer: Assist X1;Stand-by assistance;Contact-guard assistance;Additional time Gait Training Gait Training: Yes Gait Overall Level of Assistance: Assist X1;Stand-by assistance;Contact-guard assistance;Additional time Interventions: Verbal cues;Demonstration Base of Support: Widened Speed/Kayla: Delayed;Slow Step Length: Right shortened;Left shortened Stance: Right increased;Left increased Gait Abnormalities: Shuffling gait;Decreased step clearance;Other (comment) Distance (ft): (40ftx1,20ftx1) Assistive Device: Walker, rolling PT Exercises Exercise Treatment: Supine/Seated BLE exercises x15 with increased v/c to stay on task Other Specialty Interventions Other Treatments/Modalities: commode use and transfer Safety Devices Type of Devices: All fall risk precautions in place;Call light within reach;Gait belt;Patient at risk for falls;Left in chair;Chair alarm in place Goals Short Term Goals Time Frame for Short Term Goals: 20 days Short Term Goal 1: Patient to complete all transfers with SUP and no LOB to decrease fall risk. Short Term Goal 2: Patient to ambulate 50ftx2 with FWW and SUP with no LOB or fatigue to improve mobility. Short Term Goal 3: Patient to tolerate 20-30 min of ther ex/act to improve functional strength. Short Term Goal 4: Patient to have Fair static standing balance to decrease fall risk. Education Patient Education Education Given To: Patient Education Provided: Home Exercise Program;Transfer Training;Fall Prevention Strategies Education Provided Comments: safety awareness with use of WW Education Method: Verbal;Demonstration Barriers to Learning: Cognition Education Outcome: Verbalized understanding;Continued education needed Therapy Time Individual Concurrent Group Co-treatment Time In 1418 Time Out 1450 Minutes 32 Christina Angeles PTA Comprehensive Nutrition Assessment Type and Reason for Visit: Reassess Nutrition Recommendations/Plan: Encourage protein rich foods Malnutrition Assessment: Malnutrition Status: Moderate malnutrition (11/19/22 0817) Context: Acute Illness Findings of the 6 clinical characteristics of malnutrition: Energy Intake: 75% or less of estimated energy requirements for 7 or more days Weight Loss: Greater than 7.5% over 3 months Body Fat Loss: No significant body fat loss Muscle Mass Loss: No significant muscle mass loss Fluid Accumulation: No significant fluid accumulation Flaking Roll Operator Strength: Not Performed Nutrition Assessment: Improving nutrition intakes with weight increases as well, now matching values from 3 months ago (dehydrated upon admission). Glycemia running 144-209 mg/dl in last 24 hours. No new NH3 values. ALK increasing mildly and low albumin with cirrhosis. Bowels remain loose and expected to be such on lactulose for NH3 control. Nutrition Related Findings: BLE trace edema. Wound Type: None Current Nutrition Intake & Therapies: Average Meal Intake: 76-100% Average Supplements Intake: None Ordered (declines use) ADULT DIET; Regular; 4 carb choices (60 gm/meal) Anthropometric Measures: Height: 5' 3 (160 cm) [place] Body Weight (IBW): 115 lbs (52 kg) Admission Body Weight: 167 lb 6.4 oz (75.9 kg) Current Body Weight: 184 lb 4.8 oz (83.6 kg), 145.6 % IBW. Weight Source: Bed Scale Current BMI (kg/m2): 32.7 Usual Body Weight: 184 lb 3.2 oz (83.6 kg) (3 months ago) % Weight Change (Calculated): 0.1 Weight Adjustment For: No Adjustment BMI Categories: Obese Class 1 (BMI 30.0-34.9) Estimated Daily Nutrient Needs: Energy Requirements Based On: Kcal/kg Weight Used for Energy Requirements: Current Energy (kcal/day): 7490-2449 (15-20) Weight Used for Protein Requirements: [place] Protein (g/day): 57-68 (1.1-1.3) Method Used for Fluid Requirements: 1 ml/kcal Fluid (ml/day): 1900 Nutrition Diagnosis: Moderate malnutrition related to inadequate protein-energy intake as evidenced by weight loss 7.5% in 3 months, poor intake prior to admission Lab Results Component Value Date NA 136 11/24/2022 K 5.3 11/24/2022 CL 103 11/24/2022 CO2 28 11/24/2022 BUN 12 11/24/2022 CREATININE 1.21 (H) 11/24/2022 GLUCOSE 191 (H) 11/24/2022 CALCIUM 8.7 11/24/2022 PROT 5.5 (L) 11/24/2022 LABALBU 2.7 (L) 11/24/2022 BILITOT 0.2 (L) 11/24/2022 ALKPHOS 162 (H) 11/24/2022 AST 48 (H) 11/24/2022 ALT 34 (H) 11/24/2022 LABGLOM 49 (L) 11/24/2022 GFRAA >60 05/12/2022 GLOB NOT REPORTED 08/08/2021 Recent Labs 11/22/22 1618 11/22/22 2035 11/23/22 0701 11/23/22 1102 11/23/22 1602 11/23/22 2017 11/24/22 0651 11/24/22 1106 POCGLU 202* 169* 144* 209* 176* 192* 164* 203* Nutrition Interventions: Food and/or Nutrient Delivery: Continue Current Diet Nutrition Education/Counseling: No recommendation at this time Coordination of Nutrition Care: Continue to monitor while inpatient Plan of Care discussed with: patient Goals: Previous Goal Met: Progressing toward Goal(s) Goals: Meet at least 75% of estimated needs Nutrition Monitoring and Evaluation: Behavioral-Environmental Outcomes: None Identified Food/Nutrient Intake Outcomes: Food and Nutrient Intake Physical Signs/Symptoms Outcomes: Fluid Status or Edema, Weight, Biochemical Data Discharge Planning: Continue Oral Nutrition Supplement (at home (Splenda) ONS) Danilo Malhotra RD, LD Contact: [phone] Waiting on insurance approval for patient to go to [facility]. GENI Baer Physical Therapy Facility/Department: [facility] Daily Treatment Note NAME: Angella Olson : 1955 Date of Service: 11/24/2022 Discharge Recommendations: Continue to assess pending progress, Subacute/Halfway Facility, IP Rehab, Home with Home health PT Patient Diagnosis(es): The primary encounter diagnosis was Acute kidney injury (HCC). Diagnoses of Acute cystitis without hematuria, Dehydration, Bipolar disorder with depression (HCC), and Cirrhosis of liver without ascites, unspecified hepatic cirrhosis type (HCC) were also pertinent to this visit. Assessment Assessment: Transfers completed with CGA/SBA, bed mobility SBA/SUP. Gait completed with CGA/SBA and RW 40ft + 15ft. Pt limited by LBP, stating it feels like my back is going to break in half. Pt completed gait training in room and toilet transfer before stating she needed to lay down flat in order to get her back to calm down. Pt declined fufther tx at this time as a result. Educated patient on importance of continued progressive therapy to achieve optimal recovery--pt verbalized understanding. Continue to progress as tolerated. Activity Tolerance: Patient limited by pain;Patient limited by fatigue Plan Physcial Therapy Plan General Plan: 2 times a day 7 days a week (1x per day on weekends.) Restrictions Restrictions/Precautions Restrictions/Precautions: General Precautions, Fall Risk Subjective Subjective Subjective: pt in chair upon arrival, pleasant and agreeable to therapy. Pain: 5/10 LBP Orientation Overall Orientation Status: Impaired Objective Vitals Bed Mobility Training Bed Mobility Training: Yes Overall Level of Assistance: Stand-by assistance;Assist X1;Supervision Interventions: Verbal cues;Safety awareness training (To sit toward top of the bed and optimal use of hand rail) Rolling: Stand-by assistance;Assist X1;Supervision Sit to Supine: Assist X1;Supervision;Stand-by assistance Scooting: Assist X1;Supervision;Stand-by assistance Transfer Training Transfer Training: Yes Overall Level of Assistance: Stand-by assistance;Assist X1;Additional time Interventions: Safety awareness training;Verbal cues (hand placement, proximity to chair before reaching back.) Sit to Stand: Assist X1;Stand-by assistance Stand to Sit: Stand-by assistance;Assist X1 Stand Pivot Transfers: Assist X1;Additional time;Stand-by assistance Toilet Transfer: Assist X1;Stand-by assistance;Contact-guard assistance;Additional time Gait Training Gait Training: Yes Gait Overall Level of Assistance: Assist X1;Stand-by assistance;Contact-guard assistance;Additional time Interventions: Verbal cues;Demonstration (step through gait pattern, increased step height--poor carryover.) Base of Support: Widened Speed/Kayla: Delayed;Slow Step Length: Right shortened;Left shortened Stance: Right increased;Left increased Gait Abnormalities: Shuffling gait;Decreased step clearance;Other (comment) (prolonged double leg stance phase each step.) Distance (ft): 40 Feet (40 + 15) Assistive Device: Walker, rolling;Gait belt Safety Devices Type of Devices: All fall risk precautions in place;Bed alarm in place;Call light within reach;Gait belt;Patient at risk for falls;Left in bed Goals Short Term Goals Time Frame for Short Term Goals: 20 days Short Term Goal 1: Patient to complete all transfers with SUP and no LOB to decrease fall risk. Short Term Goal 2: Patient to ambulate 50ftx2 with FWW and SUP with no LOB or fatigue to improve mobility. Short Term Goal 3: Patient to tolerate 20-30 min of ther ex/act to improve functional strength. Short Term Goal 4: Patient to have Fair static standing balance to decrease fall risk. Education Patient Education Education Given To: Patient Education Provided: Home Exercise Program;Transfer Training;Fall Prevention Strategies Education Method: Verbal;Demonstration Barriers to Learning: Cognition Education Outcome: Verbalized understanding;Continued education needed Therapy Time Individual Concurrent Group Co-treatment Time In 0914 Time Out 0940 Minutes 26 Harriet Dang, CONTACT FINGER ASSEMBLER [id number] Eren Park M.D. Internal Medicine Progress Note Patient: Angella Olson Date of Admission: 11/18/2022 8:23 PM Hospital Day # 6 Date of Evaluation: 11/24/2022 SUBJECTIVE: Ms. Olson was seen and examined today for f/u of Acute kidney injury superimposed on CKD (HCC). She is feeling better today. She denies any chest pain, palpitations or SOB. She denies fever or chills and has been afebrile. She is tolerating diet without any nausea, vomiting or diarrhea. ROS: Constitutional: negative for fevers, and negative for chills. Respiratory: negative for shortness of breath, negative for cough, and negative for wheezing Cardiovascular: negative for chest pain, and negative for palpitations Gastrointestinal: negative for abdominal pain, negative for nausea,negative for vomiting, negative for diarrhea, and negative for constipation All other systems were reviewed with the patient and are negative unless otherwise stated in HPI OBJECTIVE: Vitals: Temp: 98.6 F (37 C) BP: (!) 121/56 Resp: 19 Heart Rate: 74 SpO2: 91 % on room air Weight Wt Readings from Last 3 Encounters: 11/24/22 184 lb 4.8 oz (83.6 kg) 10/24/22 168 lb 6.4 oz (76.4 kg) 10/09/22 177 lb 4 oz (80.4 kg) Body mass index is 32.65 kg/m . 24HR INTAKE/OUTPUT: Intake/Output Summary (Last 24 hours) at 11/24/2022 0757 Last data filed at 11/24/2022 0145 Gross per 24 hour Intake 1340 ml Output 750 ml Net 590 ml Exam: GEN: Awake, alert and oriented x 3. EYES: EOMI, pupils equal NECK: Supple. No lymphadenopathy. No carotid bruit CVS: regular rate and rhythm, no audible murmur PULM: CTA, no wheezes, rales or rhonchi, no acute respiratory distress ABD: Bowels sounds normal. Abdomen is soft. No distention. no tenderness to palpation. EXT: no edema bilaterally . No calf tenderness. NEURO: Moves all extremities. Motor and sensory are grossly intact SKIN: No rashes. No skin lesions. DATA: Complete Blood Count: Recent Labs 11/22/22 0630 11/23/22 0625 WBC 2.7* 2.6* RBC 3.00* 3.10* HGB 8.8* 9.3* HCT 27.5* 28.8* MCV 91.7 92.9 MCH 29.3 30.0 MCHC 32.0 32.3 RDW 18.4* 18.6* PLT 101* See Reflexed IPF Result MPV 10.4 -- Recent Blood Glucose levels: Recent Labs 11/22/22 0630 11/23/22 0625 11/24/22 0540 GLUCOSE 180* 148* 191* Comprehensive Metabolic Profile: Recent Labs 11/22/22 0630 11/23/22 0625 11/24/22 0540 NA 142 140 136 K 4.3 4.8 5.3 CL 107 106 103 CO2 29 29 28 BUN 17 11 12 CREATININE 1.29* 1.08* 1.21* GLUCOSE 180* 148* 191* CALCIUM 8.5* 8.8 8.7 PROT 5.8* 5.7* 5.5* LABALBU 2.7* 2.7* 2.7* BILITOT <0.1* 0.2* 0.2* ALKPHOS 129* 158* 162* AST 55* 70* 48* ALT 32 41* 34* Urinalysis: Lab Results Component Value Date/Time COLORU Yellow 11/18/2022 09:05 PM SPECGRAV 1.015 11/18/2022 09:05 PM PHUR 5.5 11/18/2022 09:05 PM WBCUA 50 TO 100 11/18/2022 09:05 PM RBCUA 0 TO 2 11/18/2022 09:05 PM BACTERIA 4+ 11/18/2022 09:05 PM LEUKOCYTESUR MODERATE 11/18/2022 09:05 PM NITRU POSITIVE 11/18/2022 09:05 PM UROBILINOGEN Normal 11/18/2022 09:05 PM BILIRUBINUR NEGATIVE 11/18/2022 09:05 PM GLUCOSEU NEGATIVE 11/18/2022 09:05 PM KETUA NEGATIVE 11/18/2022 09:05 PM HgBA1c: Lab Results Component Value Date/Time LABA1C 7.0 11/05/2022 06:40 AM Radiology/Imaging: US RENAL COMPLETE Final Result Unremarkable ultrasound of the kidneys. Unremarkable appearance urinary bladder with postvoid residual [address] HEAD WO CONTRAST Final Result No acute intracranial abnormality. Redemonstration of age-appropriate atrophy. MEDICAL DECISION MAKING: Primary Problem(s): Acute kidney injury superimposed on CKD (HCC) Condition is improving Treatment plan: Nephrology consult appreciated - notes reviewed Imaging: no further imaging studies ordered today Medication Monitoring / High Risk Medications: none E coli UTI Condition is improving Treatment plan: Continue current treatment Imaging: no further imaging studies ordered today Medications: Continue Keflex MDM Data: Test interpretation: My independent EKG interpretation: NSR with normal axis and intervals, non-specific ST changes My independent X-ray interpretation: not applicable Management and/or test interpretation was reviewed with nursing staff Consults and Nursing notes were personally reviewed, all current labs and imaging were personally reviewed, and tests ordered: CBC, BMP Disposition: Shared decision making: All test results, treatment options and disposition options were discussed with the patient today Social determinants of health that may impact management: none Code status: Full Code Disposition: Discharge plan is [facility] when approved by insurance Eren Park MD , M.D. 11/24/2022 7:59 AM Patient easily awoken in bed. Denies pain at this time. VS and assessment completed. Patient declines bathroom or getting out of bed at this time. Water refreshened at this time. Denies any other needs Pt sitting up in chair watching television, requests utensils for food family brought in. VS obtained and assessment done as charted in flow sheet. Pt is A&Ox4. Pt has chronic lower back pain but declines any interventions at this time. Pt denies any needs or concerns at this time and has call light within reach. Will continue to monitor. 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, left Type 2 diabetes mellitus without complication (HCC) PATIENT ASSESSMENT LABORATORY DATA Hematology: Lab Results Component Value Date/Time WBC 2.6 11/23/2022 06:25 AM RBC 3.10 11/23/2022 06:25 AM HGB 9.3 11/23/2022 06:25 AM HCT 28.8 11/23/2022 06:25 AM PLT See Reflexed IPF Result 11/23/2022 06:25 AM Chemistry: Lab Results Component Value Date/Time PHART 7.329 08/14/2021 09:12 AM [id number] 50.8 08/14/2021 09:12 AM PO2ART 85.6 08/14/2021 09:12 AM V1GKDASG 95.7 08/14/2021 09:12 AM NMA8RCN 26.1 08/14/2021 09:12 AM PBEA NOT REPORTED 08/14/2021 09:12 AM VITALS Heart Rate: 62 Resp: 18 BP: (!) 122/54 SpO2: 99 % O2 Device: None (Room air) Temp: 97.8 F (36.6 C) SKIN COLOR [x] Normal [] Pale [] Dusky [] Cyanotic RESPIRATORY PATTERN [x] Normal [] Dyspnea [] Singh-Bhatia [] Kussmaul [] Biots AMBULATORY [x] Yes [] No [] With Assistance Patient Acuity 0 1 2 3 4 Score Level of Consciousness (LOC) [x] Alert & Oriented or Pt normal LOC [] Confused;follows directions [] Confused & uncooper-ative [] Obtunded [] Comatose 0 Respiratory Rate (RR) [x] Reg. rate & pattern. 12 - 20 bpm [] Increased RR. Greater than 20 bpm [] SOB w/ exertion or RR greater than 24 bpm [] Access- ory muscle use at rest. Abn. resp. [] SOB at rest. 0 Bilateral Breath Sounds (BBS) [x] Clear [] Diminish-ed bases [] Diminish-ed t/o, or rales [] Sporadic, scattered wheezes or rhonchi [] Persistentwheezes and, or absent BBS 0 Cough [x] Strong, effective, & non-prod. [] Effective & prod. Less than 25 ml (2 TBSP) over past 24 hrs [] Ineffective & non-prod to less than 25 ML over past 24 hrs [] Ineffective and, or greater than 25 ml sputum prod. past 24 hrs. [] Nonspon- taneous; Requires suctioning 0 Pulmonary History (PULM HX) [] No smoking and no chronic pulmonary history [] Former smoker. Quit over 12 mos. ago [] Current smoker or quit w/ in 12 mos [x] Pulm. History and, or 20 pk/yr smoking hx [] Admitted w/ acute pulm. dx and, or has been admitted w/ pulm. dx 2 or more times over past 12 mos 3 Surgical History this Admit (SURG HX) [x] No surgery [] General surgery [] Lower abdominal [] Thoracic or upper abdominal [] Thoracic w/ pulm. disease 0 Chest X-Ray (CXR)/CT Scan [x] Clear or not applicable [] Not available [] Atelectasis or pleural effusions [] Localized infiltrate or pulm. edema [] Con-solidated Infiltrates, bilateral, or in more than 1 lobe 0 TOTAL ACUITY: 3 CARE PLAN If Acuity Level is 2, 3, or 4 in any of the following: [] BILATERAL BREATH SOUNDS (BBS) [x] PULMONARY HISTORY (PULM HX) [] Respiratory Rate (RR) Goal: Improve respiratory functions in patients with airway disease and decrease WOB [x] AEROSOL PROTOCOL Total Acuity: 14-28 [] Secondary Assessment in 24 hrs Total Acuity: 9-13 [] Secondary Assessment in 24 hrs Total Acuity: 4-8 [] Secondary Assessment in 24 hrs Total Acuity: 0-3 [x] Secondary Assessment in 48 hrs HHN AEROSOL THERAPY with [physician-ordered bronchodilator(s)] q 4 & Albuterol PRN q2 hrs. Breath-Actuated Neb if BBS Acuity = 4, and pt. can use MP. Notify physician if condition deteriorates. HHN AEROSOL THERAPY with [physician-ordered bronchodilator(s)] QID and Albuterol PRN q4 hrs. Breath-Actuated Neb if BBS Acuity = 4, and pt. can use MP. Notify physician if condition deteriorates. MDI THERAPY with 2 actuations of [physician-ordered bronchodilator(s)] via spacer TID Albuterol and PRN q4 hrs. If unable to utilize MDI: HHN [physician-ordered bronchodilator(s)] TID and Albuterol PRN q4 hrs. Notify physician if condition deteriorates. MDI THERAPY with [physician-ordered bronchodilator(s)] via spacer TID PRN. If unable to utilize MDI: HHN [physician-ordered bronchodilator(s)] TID PRN. Notify physician if condition deteriorates. If Acuity Level is 2, 3, or 4 in any of the following: [] COUGH [] SURGICAL HISTORY (SURG HX) [] CHEST XRAY (CXR) Goal: Improvement in sputum mobilization in patients with ineffective airway clearance. Reverse atelectasis. [] Bronchopulmonary Hygiene Protocol Total Acuity: 14-28 [] Secondary Assessment in 24 hrs Total Acuity: 9-13 [] Secondary Assessment in 24 hrs Total Acuity: 4-8 [] Secondary Assessment in 24 hrs Total Acuity: 0-3 [] Secondary Assessment in 48 hrs METANEB QID with [physician-ordered bronchodilator(s)] if CXR Acuity = 4; otherwise: PD&P, Oscillatory Therapy, or Vest QID & PRN AND PEP QID & PRN NT Sxn PRN for ineffective cough METANEB QID with [physician-ordered bronchodilator(s)] if CXR Acuity = 4; otherwise: PD&P, Oscillatory Therapy or Vest QID & PRN AND PEP QID & PRN NT Sxn PRN for ineffective cough PD&P, Oscillatory Therapy, or Vest TID & PRN AND PEP TID & PRN Instruct patient to self-perform IS q1hr WA If Acuity Level is 2 or above in the following: [] PULMONARY HISTORY (PULM HX) Goal: Assist patient in quitting smoking to slow or stop the progression of lung disease. [] Smoking Cessation Protocol SMOKING CESSATION EDUCATION provided according to policy RT_201: (miroslava with an X) ____Yes ____ No ____ NA Smoking Cessation Booklet given: ____Yes ____No ____Patient Refused Progress Note SUBJECTIVE: FU related to no issues. Up with therapy. OBJECTIVE: Vitals: TEMPERATURE: Current - Temp: 97.8 F (36.6 C); Max - Temp Av F (36.7 C) Min: 97.8 F (36.6 C) Max: 98.2 F (36.8 C) RESPIRATIONS RANGE: Resp Av Min: 18 Max: 20 PULSE RANGE: Pulse Av Min: 62 Max: 78 BLOOD PRESSURE RANGE: Systolic (24hrs), Av , Min:112 , Max:122 ; Diastolic (24hrs), Av, Min:54, Max:66 PULSE OXIMETRY RANGE: SpO2 Av.5 % Min: 96 % Max: 99 % 24HR INTAKE/OUTPUT: Intake/Output Summary (Last 24 hours) at 11/23/2022 0939 Last data filed at 11/23/2022 0607 Gross per 24 hour Intake 800 ml Output 250 ml Net 550 ml Exam: General: A & O x3 and alert HEENT: Supple neck & negative Heart: Regular Lungs: clear to auscultation bilaterally & no retractions Abdomen: Normal & soft, No tenderness and BS normal Extremities: No edema Neuro: NonFocal Diagnostic Data: Lab Results Component Value Date WBC 2.6 (L) 11/23/2022 HGB 9.3 (L) 11/23/2022 PLT See Reflexed IPF Result 11/23/2022 Lab Results Component Value Date BUN 11 11/23/2022 CREATININE 1.08 (H) 11/23/2022 NA 140 11/23/2022 K 4.8 11/23/2022 CALCIUM 8.8 11/23/2022 CL 106 11/23/2022 CO2 29 11/23/2022 LABGLOM 56 (L) 11/23/2022 Lab Results Component Value Date WBCUA 50 TO 100 11/18/2022 RBCUA 0 TO 2 11/18/2022 EPITHUA 0 TO 2 11/18/2022 LEUKOCYTESUR MODERATE (A) 11/18/2022 SPECGRAV 1.015 11/18/2022 GLUCOSEU NEGATIVE 11/18/2022 KETUA NEGATIVE 11/18/2022 PROTEINU NEGATIVE 11/18/2022 HGBUR TRACE (A) 11/18/2022 CASTUA 0 TO 2 FINE GRANULAR 12/27/2021 CRYSTUA NOT REPORTED 08/14/2021 BACTERIA 4+ (A) 11/18/2022 YEAST NOT REPORTED 08/14/2021 Lab Results Component Value Date TROPONINT NOT REPORTED 08/14/2021 CKTOTAL 46 08/07/2022 PROBNP 237 08/08/2021 CT HEAD WO CONTRAST Result Date: 11/19/2022 EXAMINATION: CT OF THE HEAD WITHOUT CONTRAST 11/18/2022 8:50 pm TECHNIQUE: CT of the head was performed without the administration of intravenous contrast. Automated exposure control, iterative reconstruction, and/or weight based adjustment of the mA/kV was utilized to reduce the radiation dose to as low as reasonably achievable. COMPARISON: October 03, 2022 HISTORY: ORDERING SYSTEM PROVIDED HISTORY: altered mental TECHNOLOGIST PROVIDED HISTORY: altered mental Decision Support Exception - unselect if not a suspected or confirmed emergency medical condition->Emergency Medical Condition (MA) FINDINGS: BRAIN/VENTRICLES: There is no acute intracranial hemorrhage, mass effect or midline shift. No abnormal extra-axial fluid collection. The mckoy-white differentiation is maintained without evidence of an acute infarct. There is no evidence of hydrocephalus. Redemonstration of age-appropriate atrophy. ORBITS: The visualized portion of the orbits demonstrate no acute abnormality. SINUSES: The visualized paranasal sinuses and mastoid air cells demonstrate no acute abnormality. SOFT TISSUES/SKULL: No acute abnormality of the visualized skull or soft tissues. No acute intracranial abnormality. Redemonstration of age-appropriate atrophy. US RENAL COMPLETE Result Date: 11/19/2022 EXAMINATION: RETROPERITONEAL ULTRASOUND OF THE KIDNEYS AND URINARY BLADDER 11/19/2022 COMPARISON: None HISTORY: ORDERING SYSTEM PROVIDED HISTORY: SUAD TECHNOLOGIST PROVIDED HISTORY: SUAD FINDINGS: Kidneys: The right kidney measures 11.1 cm in length and the left kidney measures 10.8 cm in length. Kidneys demonstrate normal cortical echogenicity. No evidence of hydronephrosis or intrarenal stones. Bladder: Unremarkable appearance of the bladder. 54 mL postvoid residual volume. Bilateral ureteral jets demonstrated. Unremarkable ultrasound of the kidneys. Unremarkable appearance urinary bladder with postvoid residual 54 mL. ASSESSMENT: Principal Problem: Acute kidney injury superimposed on CKD (HCC) Active Problems: Moderate malnutrition (HCC) Complicated UTI (urinary tract infection) Stage 3 chronic kidney disease (HCC) Essential hypertension Cirrhosis of liver without ascites (HCC) Resolved Problems: * No resolved hospital problems. * Patient Active Problem List Diagnosis Date Noted Recurrent major depressive disorder, in partial remission (HCC) 10/06/2022 Non-alcoholic fatty liver disease 10/06/2022 Closed compression fracture of third lumbar vertebra (HCC) 10/04/2022 Hepatic encephalopathy (HCC) 09/07/2022 SUAD (acute kidney injury) (HCC) prerenal 09/07/2022 Complicated UTI (urinary tract infection) 09/06/2022 Moderate malnutrition (HCC) 08/09/2022 Sepsis secondary to UTI ([facility]) 08/08/2022 Acute kidney injury superimposed on CKD (HCC) 11/18/2022 Osteoporotic compression fracture of spine (HCC) 11/10/2022 COPD (chronic obstructive pulmonary disease) ([facility]) 05/17/2021 Cirrhosis of liver without ascites ([facility]) 03/29/2021 Dyslipidemia 12/13/2020 Gastroesophageal reflux disease 12/13/2020 Positive FIT (fecal immunochemical test) 02/04/2020 Frequency of urination 12/13/2019 Mixed incontinence 12/13/2019 Nocturia 12/13/2019 Fall at home, initial encounter 11/24/2019 Iron deficiency anemia 07/25/2019 Obesity (BMI 30-39.9) 07/13/2019 Chronic back pain 06/03/2019 Stage 3 chronic kidney disease (HCC) 06/03/2019 Essential hypertension 06/03/2019 Bipolar disorder (HCC) 06/03/2019 Type 2 diabetes mellitus, with long-term current use of insulin (HCC) 06/03/2019 PLAN: Placement plan. Antibiotics. Kidney function looks a little better. DC Rocephin. Changed to Keflex oral. Critical Care Time: 0 MIPS Advanced Care Planning documentation: [x] I have confirmed that the patient's Advance Care Plan is present, Code Status is documented, or surrogate decision maker is listed in the patient's medical record [If yes , STOP HERE] [] The patient's Advance Care Plan is NOT present because: [] I confirmed today that the patient does not wish or was not able to name a surrogate decision maker or provide and advance care plan. [] Hospice care is currently being provided or has been provided within the calendar year. [] I did NOT confirm today the presence of an Advance Care Plan or surrogate decision maker documented within the patient's medical record. [DOES NOT SATISFY MIPS PERFORMANCE] Miroslava Victor MD , M.Eber. Physical Therapy Facility/Department: [facility] Daily Treatment Note NAME: Angella Olson : 1955 Date of Service: 11/23/2022 Discharge Recommendations: Continue to assess pending progress, Subacute/Halfway Facility, IP Rehab, Home with Home health PT Patient Diagnosis(es): The primary encounter diagnosis was Acute kidney injury (HCC). Diagnoses of Acute cystitis without hematuria, Dehydration, Bipolar disorder with depression (HCC), and Cirrhosis of liver without ascites, unspecified hepatic cirrhosis type (HCC) were also pertinent to this visit. Assessment Assessment: Pt was limited by low back pain during supine BLE ex. Pt used bathroom and completed pericare semi-independently. Amb 10 ft x2 with FWW and CGA. Activity Tolerance: Patient tolerated treatment well Plan Physcial Therapy Plan General Plan: 2 times a day 7 days a week Restrictions Restrictions/Precautions Restrictions/Precautions: General Precautions, Fall Risk Subjective Subjective Subjective: Pt in bed upon arrival. Agreeable to PT. Pt states she's been up since 5, states she wasn't feeling so good . Pain: 6/10 all over Objective Vitals Bed Mobility Training Bed Mobility Training: Yes Overall Level of Assistance: Stand-by assistance;Assist X1 Rolling: Stand-by assistance;Assist X1 Supine to Sit: Stand-by assistance;Assist X1 Scooting: Stand-by assistance;Assist X1 Transfer Training Transfer Training: Yes Overall Level of Assistance: Stand-by assistance;Assist X1 Sit to Stand: Assist X1;Stand-by assistance Stand to Sit: Stand-by assistance;Assist X1 Toilet Transfer: Contact-guard assistance;Assist X1 Gait Training Gait Training: Yes Gait Overall Level of Assistance: Contact-guard assistance;Assist X1 Interventions: Verbal cues Base of Support: Widened Speed/Kayla: Delayed;Slow Distance (ft): 20 Feet (10 ft x2 (to bathroom and back to chair)) Assistive Device: Walker, rolling;Gait belt PT Exercises Exercise Treatment: Supine BLE exercises x10 each --pt reported increased low back pain after 5th exercise set. Safety Devices Type of Devices: Call light within reach;Chair alarm in place;All fall risk precautions in place;Patient at risk for falls;Left in chair;Nurse notified Goals Short Term Goals Time Frame for Short Term Goals: 20 days Short Term Goal 1: Patient to complete all transfers with SUP and no LOB to decrease fall risk. Short Term Goal 2: Patient to ambulate 50ftx2 with FWW and SUP with no LOB or fatigue to improve mobility. Short Term Goal 3: Patient to tolerate 20-30 min of ther ex/act to improve functional strength. Short Term Goal 4: Patient to have Fair static standing balance to decrease fall risk. Education Patient Education Education Given To: Patient Education Provided: Home Exercise Program;Transfer Training Education Provided Comments: Ex technqiue Education Method: Verbal Barriers to Learning: Cognition Education Outcome: Demonstrated understanding;Verbalized understanding Therapy Time Individual Concurrent Group Co-treatment Time In 0659 Time Out 0725 Minutes 26 Ruth Klein PTA Patient resting comfortably at this time. Patient received pain medication for back pain and denies any other needs at this time. Patient alert & oriented x4 and able to answer all questions appropriately and follow commands. Assessment and vitals as charted. Bed alarm on, bed locked, gripper socks on, call light within reach and able to use appropriately. Will continue to monitor this shift. Chart reviewed. Discussed with RN. Kidney function back to baseline. Will stop IV fluids. Repeat labs in AM. Images from the original note were not included. [facility] Antibiotic 48hr-IV/PO Review Patient Name: Angella Olson Patient Age: 67 y.o. Sex: female Allergies: Latex, Clindamycin/lincomycin, Erythromycin base, Fentanyl, Gatifloxacin, Indomethacin, Iodine tincture [iodine], Pcn [penicillins], Shellfish-derived products, Sulfa antibiotics, Tetracyclines & related, Lidocaine, Nitrofuran derivatives, Phenazopyridine hcl, and Phenazopyridine LOCATION: DIAGNOSIS: Acute kidney injury superimposed on CKD (HCC) Ht Readings from Last 1 Encounters: 11/19/22 5' 3 (1.6 m) Wt Readings from Last 1 Encounters: 11/22/22 177 lb 4.8 oz (80.4 kg) Temp Readings from Last 3 Encounters: 11/22/22 98.4 F (36.9 C) (Temporal) 10/24/22 98.5 F (36.9 C) (Temporal) 10/17/22 98.1 F (36.7 C) (Oral) Recent Labs 11/20/22 0535 11/21/22 0550 11/22/22 0630 WBC 2.8* 2.7* 2.7* To: Medical Provider Pharmacist Evaluation Checklist for IV to PO Conversion: ((X) all that apply) x Patient has been on IV therapy for >48hrs x WBC < 15,000 and decreasing x Patient temperature is decreasing x Patient has a functioning GI tract for adequate absorption (no ileus,diarrhea) x Patient is tolerating oral or nasogastric nutrition Current ABX Regimen: Ceftriaxone 1 gram IV every 24 hours Based upon the criteria noted above it is my recommendation that this patient is a candidate for ORAL antibiotic therapy. If you agree with the recommendation, Please consider changing the current IV regimen to: RECOMMENDATION: Cephalexin 500 mg TID x 5-7 days Thank you, Ciaran Conley [facility], 11/22/2022, 12:35 PM A FAXED copy will be sent to the nursing unit for physician to review during rounds. Progress Note SUBJECTIVE: FU related to no issues. Up with therapy. OBJECTIVE: Vitals: TEMPERATURE: Current - Temp: 98.4 F (36.9 C); Max - Temp Av.1 F (36.7 C) Min: 97.7 F (36.5 C) Max: 98.4 F (36.9 C) RESPIRATIONS RANGE: Resp Av.7 Min: 18 Max: 20 PULSE RANGE: Pulse Av.5 Min: 68 Max: 90 BLOOD PRESSURE RANGE: Systolic (24hrs), Av , Min:84 , Max:115 ; Diastolic (24hrs), Av, Min:55, Max:67 PULSE OXIMETRY RANGE: SpO2 Av.8 % Min: 93 % Max: 94 % 24HR INTAKE/OUTPUT: Intake/Output Summary (Last 24 hours) at 11/22/2022 0953 Last data filed at 11/22/2022 0437 Gross per 24 hour Intake 2431 ml Output 500 ml Net 1931 ml Exam: General: A & O x3 and alert HEENT: Supple neck & negative Heart: Regular Lungs: clear to auscultation bilaterally & no retractions Abdomen: Normal & soft, No tenderness and BS normal Extremities: No edema Neuro: NonFocal Diagnostic Data: Lab Results Component Value Date WBC 2.7 (L) 11/22/2022 HGB 8.8 (L) 11/22/2022 PLT 101 (L) 11/22/2022 Lab Results Component Value Date BUN 17 11/22/2022 CREATININE 1.29 (H) 11/22/2022 NA 142 11/22/2022 K 4.3 11/22/2022 CALCIUM 8.5 (L) 11/22/2022 CL 107 11/22/2022 CO2 29 11/22/2022 LABGLOM 45 (L) 11/22/2022 Lab Results Component Value Date WBCUA 50 TO 100 11/18/2022 RBCUA 0 TO 2 11/18/2022 EPITHUA 0 TO 2 11/18/2022 LEUKOCYTESUR MODERATE (A) 11/18/2022 SPECGRAV 1.015 11/18/2022 GLUCOSEU NEGATIVE 11/18/2022 KETUA NEGATIVE 11/18/2022 PROTEINU NEGATIVE 11/18/2022 HGBUR TRACE (A) 11/18/2022 CASTUA 0 TO 2 FINE GRANULAR 12/27/2021 CRYSTUA NOT REPORTED 08/14/2021 BACTERIA 4+ (A) 11/18/2022 YEAST NOT REPORTED 08/14/2021 Lab Results Component Value Date TROPONINT NOT REPORTED 08/14/2021 CKTOTAL 46 08/07/2022 PROBNP 237 08/08/2021 CT HEAD WO CONTRAST Result Date: 11/19/2022 EXAMINATION: CT OF THE HEAD WITHOUT CONTRAST 11/18/2022 8:50 pm TECHNIQUE: CT of the head was performed without the administration of intravenous contrast. Automated exposure control, iterative reconstruction, and/or weight based adjustment of the mA/kV was utilized to reduce the radiation dose to as low as reasonably achievable. COMPARISON: October 03, 2022 HISTORY: ORDERING SYSTEM PROVIDED HISTORY: altered mental TECHNOLOGIST PROVIDED HISTORY: altered mental Decision Support Exception - unselect if not a suspected or confirmed emergency medical condition->Emergency Medical Condition (MA) FINDINGS: BRAIN/VENTRICLES: There is no acute intracranial hemorrhage, mass effect or midline shift. No abnormal extra-axial fluid collection. The mckoy-white differentiation is maintained without evidence of an acute infarct. There is no evidence of hydrocephalus. Redemonstration of age-appropriate atrophy. ORBITS: The visualized portion of the orbits demonstrate no acute abnormality. SINUSES: The visualized paranasal sinuses and mastoid air cells demonstrate no acute abnormality. SOFT TISSUES/SKULL: No acute abnormality of the visualized skull or soft tissues. No acute intracranial abnormality. Redemonstration of age-appropriate atrophy. US RENAL COMPLETE Result Date: 11/19/2022 EXAMINATION: RETROPERITONEAL ULTRASOUND OF THE KIDNEYS AND URINARY BLADDER 11/19/2022 COMPARISON: None HISTORY: ORDERING SYSTEM PROVIDED HISTORY: SUAD TECHNOLOGIST PROVIDED HISTORY: SUAD FINDINGS: Kidneys: The right kidney measures 11.1 cm in length and the left kidney measures 10.8 cm in length. Kidneys demonstrate normal cortical echogenicity. No evidence of hydronephrosis or intrarenal stones. Bladder: Unremarkable appearance of the bladder. 54 mL postvoid residual volume. Bilateral ureteral jets demonstrated. Unremarkable ultrasound of the kidneys. Unremarkable appearance urinary bladder with postvoid residual 54 mL. ASSESSMENT: Principal Problem: Acute kidney injury superimposed on CKD (HCC) Active Problems: Moderate malnutrition (HCC) Complicated UTI (urinary tract infection) Stage 3 chronic kidney disease (HCC) Essential hypertension Cirrhosis of liver without ascites (HCC) Resolved Problems: * No resolved hospital problems. * Patient Active Problem List Diagnosis Date Noted Recurrent major depressive disorder, in partial remission (HCC) 10/06/2022 Non-alcoholic fatty liver disease 10/06/2022 Closed compression fracture of third lumbar vertebra (HCC) 10/04/2022 Hepatic encephalopathy (HCC) 09/07/2022 SUAD (acute kidney injury) ([facility]) prerenal 09/07/2022 Complicated UTI (urinary tract infection) 09/06/2022 Moderate malnutrition (HCC) 08/09/2022 Sepsis secondary to UTI ([facility]) 08/08/2022 Acute kidney injury superimposed on CKD (HCC) 11/18/2022 Osteoporotic compression fracture of spine (HCC) 11/10/2022 COPD (chronic obstructive pulmonary disease) ([facility]) 05/17/2021 Cirrhosis of liver without ascites (HCC) 03/29/2021 Dyslipidemia 12/13/2020 Gastroesophageal reflux disease 12/13/2020 Positive FIT (fecal immunochemical test) 02/04/2020 Frequency of urination 12/13/2019 Mixed incontinence 12/13/2019 Nocturia 12/13/2019 Fall at home, initial encounter 11/24/2019 Iron deficiency anemia 07/25/2019 Obesity (BMI 30-39.9) 07/13/2019 Chronic back pain 06/03/2019 Stage 3 chronic kidney disease (HCC) 06/03/2019 Essential hypertension 06/03/2019 Bipolar disorder (HCC) 06/03/2019 Type 2 diabetes mellitus, with long-term current use of insulin (HCC) 06/03/2019 PLAN: Placement plan. Antibiotics. Kidney function looks a little better. Critical Care Time: 0 [facility] Advanced Care Planning documentation: [x] I have confirmed that the patient's Advance Care Plan is present, Code Status is documented, or surrogate decision maker is listed in the patient's medical record [If yes , STOP HERE] [] The patient's Advance Care Plan is NOT present because: [] I confirmed today that the patient does not wish or was not able to name a surrogate decision maker or provide and advance care plan. [] Hospice care is currently being provided or has been provided within the calendar year. [] I did NOT confirm today the presence of an Advance Care Plan or surrogate decision maker documented within the patient's medical record. [DOES NOT SATISFY MIPS PERFORMANCE] Miroslava Victor MD , M.D. Physical Therapy Facility/Department: [facility] Daily Treatment Note NAME: Angella Olson : 1955 Date of Service: 11/22/2022 Discharge Recommendations: Continue to assess pending progress, Subacute/Halfway Facility, IP Rehab, Home with Home health PT PT Equipment Recommendations Equipment Needed: No Patient Diagnosis(es): The primary encounter diagnosis was Acute kidney injury (HCC). Diagnoses of Acute cystitis without hematuria, Dehydration, Bipolar disorder with depression (HCC), and Cirrhosis of liver without ascites, unspecified hepatic cirrhosis type (HCC) were also pertinent to this visit. Assessment Assessment: Pt agreeable to therapy this date without report of pain. Therapist directed pt through treatment in order to facilitate unsupport seated endurance and balance. Pt tolerated exercises well. Pt transfered from bed to chair with Min A from therapist for balance, no use of AD this date for transfer. Activity Tolerance: Patient tolerated treatment well (Simultaneous filing. User may not have seen previous data.) Equipment Needed: No Plan Physcial Therapy Plan General Plan: 2 times a day 7 days a week (1x daily on weekends) Current Treatment Recommendations: Strengthening;ROM;Balance training;Functional mobility training;Transfer training;Gait training;Neuromuscular re-education;Patient/Caregiver education & training;Safety education & training;Home exercise program;Therapeutic activities;Endurance training Restrictions Restrictions/Precautions Restrictions/Precautions: General Precautions, Fall Risk Subjective Subjective Subjective: Pt in bed upon therapist arrival with nursing in room. Pt pleasent and agreebale to treatment this date Orientation Overall Orientation Status: Within Functional Limits Cognition Overall Cognitive Status: Exceptions Following Commands: Follows one step commands with increased time Attention Span: Attends with cues to redirect Objective Vitals Bed Mobility Training Bed Mobility Training: Yes Overall Level of Assistance: Stand-by assistance;Assist X1 Interventions: Verbal cues;Safety awareness training Rolling: Stand-by assistance;Assist X1 Supine to Sit: Stand-by assistance;Assist X1 Sit to Supine: Stand-by assistance;Assist X1 Scooting: Stand-by assistance;Assist X1 Balance Sitting: Intact Standing: With support Transfer Training Transfer Training: Yes Overall Level of Assistance: Contact-guard assistance;Stand-by assistance;Additional time Interventions: Safety awareness training;Verbal cues Sit to Stand: Contact-guard assistance;Assist X1;Stand-by assistance Stand to Sit: Contact-guard assistance;Assist X1;Stand-by assistance Stand Pivot Transfers: Contact-guard assistance;Assist X1;Additional time;Stand-by assistance Bed to Chair: Stand-by assistance;Contact-guard assistance;Assist X1 Gait Training Gait Training: Yes Gait Overall Level of Assistance: Contact-guard assistance;Assist X1;Additional time;Stand-by assistance Interventions: Verbal cues;Safety awareness training;Demonstration;Visual cues Base of Support: Widened Speed/Kayla: Delayed;Slow;Other (comment) Step Length: Right shortened;Left shortened Stance: Right increased;Left increased Gait Abnormalities: Shuffling gait Distance (ft): 5 Feet PT Exercises Exercise Treatment: Seated BLE exercises x 20 each in all planes. Unsupported sitting 10 minutes, sit to stand x5 with upper extremity support Safety Devices Type of Devices: Call light within reach;Chair alarm in place;All fall risk precautions in place;Patient at risk for falls;Left in chair;Nurse notified Goals Short Term Goals Time Frame for Short Term Goals: 20 days Short Term Goal 1: Patient to complete all transfers with SUP and no LOB to decrease fall risk. Short Term Goal 2: Patient to ambulate 50ftx2 with FWW and SUP with no LOB or fatigue to improve mobility. Short Term Goal 3: Patient to tolerate 20-30 min of ther ex/act to improve functional strength. Short Term Goal 4: Patient to have Fair static standing balance to decrease fall risk. Education Patient Education Education Given To: Patient Education Provided Comments: Cues for hand placement for transfers Education Method: Verbal Education Outcome: Verbalized understanding;Continued education needed Therapy Time Individual Concurrent Group Co-treatment Time In 0856 Time Out 0919 Minutes 23 Timed Code Treatment Minutes: 23 Minutes Becky Bashir PT, DPT Pt resting in bed, assessment and vitals complete, see flow sheet for documentation, patient ambulated to and from restroom with wheeled walker, tolerates well, all needs met, call light within reach. Patient resting in bed with gripper socks on, assessment done refer to flow sheets for documentation and vitals. Patient rates pain a 4/10 in her lower back denies her pain radiating to another area. Patient was taken to the bathroom and repositioned her to help with pain. Patient denies any other concerns at this time. Patient resting comfortably at this time. Patient denies any pain and any other needs at this time. Patient ambulating to and from bathroom well. Patient alert & oriented x4 and able to answer all questions appropriately and follow commands. Assessment and vitals as charted. Bed alarm on, bed locked, gripper socks on, call light within reach and able to use appropriately. Will continue to monitor this shift. Physical Therapy Facility/Department: [facility] Daily Treatment Note NAME: Angella Olson : 1955 Date of Service: 11/21/2022 Discharge Recommendations: Continue to assess pending progress, Subacute/Halfway Facility, IP Rehab, Home with Home health PT Patient Diagnosis(es): The primary encounter diagnosis was Acute kidney injury (HCC). Diagnoses of Acute cystitis without hematuria, Dehydration, Bipolar disorder with depression (HCC), and Cirrhosis of liver without ascites, unspecified hepatic cirrhosis type (HCC) were also pertinent to this visit. Assessment Assessment: Pt able to complete gait training 80ft with RW and CGA/SBA with increased time to complete d/t chatting and stopping to look around. Frequent cues to optimize technique with poor carryover noted. Transfers completed with CGA/SBA and increased time. Seated therex x 20 in all available planes of motion with short rest break between each, pt declined futher therex d/t fatigue. Will continue to progress as tolerated. Activity Tolerance: Treatment limited secondary to decreased cognition Plan Physcial Therapy Plan General Plan: 2 times a day 7 days a week (1x per day on weekends.) Restrictions Restrictions/Precautions Restrictions/Precautions: General Precautions, Fall Risk Subjective Subjective Subjective: pt in restroom upon arrival, pleasant and agreeable to therapy. much more awake this PM. Pain: denied Orientation Overall Orientation Status: Impaired Objective Transfer Training Transfer Training: Yes Overall Level of Assistance: Contact-guard assistance;Assist X1;Stand-by assistance;Additional time Interventions: Safety awareness training;Verbal cues (proper hand placement, slow positional changes.) Sit to Stand: Contact-guard assistance;Assist X1;Stand-by assistance Stand to Sit: Contact-guard assistance;Assist X1;Stand-by assistance Stand Pivot Transfers: Contact-guard assistance;Assist X1;Additional time;Stand-by assistance Gait Training Gait Training: Yes Gait Overall Level of Assistance: Contact-guard assistance;Assist X1;Additional time;Stand-by assistance Interventions: Verbal cues;Safety awareness training;Demonstration;Visual cues (Cues for upright posture, increased pace, increased step height and length.) Speed/Kayla: Delayed;Slow;Other (comment) (frequent stopping, looking around and talking.) Step Length: Right shortened;Left shortened Stance: Right increased;Left increased Gait Abnormalities: Shuffling gait Distance (ft): 80 Feet Assistive Device: Walker, rolling;Gait belt PT Exercises Exercise Treatment: Seated B LE therex x 20 in all available planes of motion, frequent cues for optimal technique/ROM. Short rest break between each d/t fatigue. Pt declined completing any additional therex d/t fatigue. Safety Devices Type of Devices: Call light within reach;Chair alarm in place;All fall risk precautions in place;Patient at risk for falls;Left in chair;Nurse notified Goals Short Term Goals Time Frame for Short Term Goals: 20 days Short Term Goal 1: Patient to complete all transfers with SUP and no LOB to decrease fall risk. Short Term Goal 2: Patient to ambulate 50ftx2 with FWW and SUP with no LOB or fatigue to improve mobility. Short Term Goal 3: Patient to tolerate 20-30 min of ther ex/act to improve functional strength. Short Term Goal 4: Patient to have Fair static standing balance to decrease fall risk. Education Patient Education Education Given To: Patient Education Provided: Home Exercise Program;Fall Prevention Strategies;Transfer Training Education Provided Comments: Cues for optimal safety and technique with tranfers/gait training--poor carryover noted. Cues for optimal ROM with therex to achieve full benefit--continue to educate. Education Method: Verbal;Demonstration Barriers to Learning: Cognition Education Outcome: Verbalized understanding;Continued education needed Therapy Time Individual Concurrent Group Co-treatment Time In 1325 Time Out 1400 Minutes 35 Harriet Dang, CONTACT FINGER ASSEMBLER [id number] [facility] Nephrology progress note 11/21/2022, 11:31 AM TELEHEALTH EVALUATION -- Audio/Visual (During COVID-19 public health emergency) Telehealth service was provided with the patient at her room in [place] [address] and myself the physician in my office in [place], [place] and the patient's RN, Christina, who has initiated the visit. Pursuant to the emergency declaration under the Martinez Act and the National Emergencies Act, 1135 waiver authority and the Coronavirus Preparedness and Response Supplemental Appropriations Act, this Virtual Visit was conducted, with patient's consent, to reduce the patient's risk of exposure to COVID-19 and provide continuity of care for an established patient. Services were provided through a video synchronous discussion virtually to substitute for in-person clinic visit. Pt Name: Angella Olson Birthdate: 1955 Admit Date: 11/18/2022 8:23 PM Chief Complaint: Nephrology following for SUAD Subjective: Patient was seen and examined this morning. Feels ok. Bps soft she has occasional dizziness. Objective: 24HR INTAKE/OUTPUT: Intake/Output Summary (Last 24 hours) at 11/21/2022 1131 Last data filed at 11/21/2022 0842 Gross per 24 hour Intake 3310 ml Output 200 ml Net 3110 ml I/O last 3 completed shifts: In: 6148.1 [P.O.:1370; I.V.:4728.1; IV Piggyback:50] Out: 300 [Urine:300] I/O this shift: In: 240 [P.O.:240] Out: 100 [Urine:100] Admission weight: 167 lb 6.4 oz (75.9 kg) Wt Readings from Last 3 Encounters: 11/21/22 173 lb 3.2 oz (78.6 kg) 10/24/22 168 lb 6.4 oz (76.4 kg) 10/09/22 177 lb 4 oz (80.4 kg) Vitals : Vitals: 11/20/223 11/21/22 0327 11/21/22 0600 11/21/22 0951 BP: (!) 109/57 Pulse: 73 Resp: 18 Temp: 98.2 F (36.8 C) TempSrc: Oral SpO2: 93% 93% 93% Weight: 173 lb 3.2 oz (78.6 kg) Height: Physical examination General -- no distress Oral Mucosa -- moist Neck -- JVD - no Extremities -- no edema, moves all extremeties DRY ROLLER - awake and alert Pschy - not agitated, mood and memory normal Due to this being a TeleHealth encounter, evaluation of the following organ systems is limited: Vitals/EENT/Resp/CV/GI//MS/Neuro/Skin /Ahsb-Khhtq-Emo. Medications: Infusion: sodium chloride 75 mL/hr at 11/21/22 0737 sodium chloride dextrose Meds: trospium 20 mg Oral BID AC magnesium oxide 400 mg Oral BID potassium chloride 40 mEq Oral Once melatonin 1.5 mg Oral Nightly cefTRIAXone (ROCEPHIN) IV 1,000 mg IntraVENous Q24H allopurinol 150 mg Oral Daily atenolol 50 mg Oral Nightly atorvastatin 80 mg Oral Nightly polyvinyl alcohol 1 drop Both Eyes BID divalproex 750 mg Oral Nightly FLUoxetine 40 mg Oral Daily mometasone-formoterol 2 puff Inhalation BID gabapentin 100 mg Oral BID lactulose 30 g Oral BID [Held by provider] metFORMIN 1,000 mg Oral BID WC pantoprazole 40 mg Oral QAM AC rifAXIMin 550 mg Oral BID Vitamin D 1,000 Units Oral Daily sodium chloride flush 10 mL IntraVENous 2 times per day [Held by provider] heparin (porcine) 5,000 Units SubCUTAneous 3 times per day insulin glargine 20 Units SubCUTAneous BID multivitamin 1 tablet Oral Daily ferrous sulfate 325 mg Oral Q48H Meds prn: traZODone, fluticasone, sodium chloride flush, sodium chloride, ondansetron OR ondansetron, polyethylene glycol, acetaminophen OR acetaminophen, glucose, dextrose bolus OR dextrose bolus, glucagon (rDNA), dextrose Lab Data : CBC: Recent Labs 11/19/22 0610 11/20/22 0535 11/21/22 0550 WBC 5.6 2.8* 2.7* HGB 11.1* 10.1* 8.9* HCT 33.3* 30.0* 27.0* PLT 115* See Reflexed IPF Result 107* CMP: Recent Labs 11/19/22 0610 11/20/22 0535 11/20/22 1705 11/21/22 0550 NA 132* 140 -- 143 K 4.9 3.8 -- 3.4* CL 104 105 -- 104 CO2 17* 23 -- 30 BUN 79* 47* -- 25* CREATININE 3.09* 1.58* -- 1.20* GLUCOSE 130* 84 -- 135* CALCIUM 9.0 8.7 -- 8.4* MG -- 1.1* 1.4* 1.9 Hepatic: Recent Labs 11/19/22 0610 11/20/22 0535 11/21/22 0550 LABALBU 2.9* 2.9* 2.6* AST 18 28 30 ALT 9 16 17 BILITOT 0.3 0.2* 0.2* ALKPHOS 101 109* 107* Assessment and Plan: SUAD on CKD : prerenal in setting of UTI, lasix, and aldactone -improved, creatinine down to 1.2 which is close to her baseline -agree with stopping bicarb drip -0.9 @ 50 ml/hour and will DC fluids soon -she is on lasix and aldactone as outpatient for her cirrhosis. At discharge I would reduce lasix dose to 20 mg and aldactone to 25 mg daily and she also may need midodrine with them as bps are soft without. She should follow up with Dr. Prado in the office in the next month with a bmp prior hypokalemia: replace with 40 meq kcl Hypomag, better, add po mag oxide 400 mg bid Metabolic acidosis resolved. Stop bicarb drip 5. UTI- E. Coli, on Ceftriaxone 6. Altered mental status, better 7. Cirrhosis 8. DM 9. Bps: soft. D/W patient and RN Pierec Payne DO [facility] This report has been created using voice recognition software. It may contain minor errors which are inherent in voice recognition technology Physical Therapy Facility/Department: [facility] Daily Treatment Note NAME: Angella Olson : 1955 Date of Service: 11/21/2022 Discharge Recommendations: Continue to assess pending progress, Subacute/Halfway Facility, IP Rehab, Home with Home health PT Patient Diagnosis(es): The primary encounter diagnosis was Acute kidney injury (HCC). Diagnoses of Acute cystitis without hematuria and Dehydration were also pertinent to this visit. Assessment Assessment: Seated and reclined B LE therex A/AROM at times, other times PROM completed d/t patient's inability to stay awake for treatment. 15x each in all available planes of motion. Held functional mobility at this time d/t lethargy and therefore unsafe to do so. Will continue to progress as appropriate. Activity Tolerance: Treatment limited secondary to decreased cognition Plan Physcial Therapy Plan General Plan: 2 times a day 7 days a week (1x per day on weekends.) Restrictions Restrictions/Precautions Restrictions/Precautions: General Precautions, Fall Risk Subjective Subjective Subjective: Pt asleep upon arrival, difficult to wake. Pt would keep her eyes open momentarily but then would fall back asleep. Pain: no changes reported per pt or staff Orientation Overall Orientation Status: Impaired Objective Bed Mobility Training Bed Mobility Training: No (Held functional mobility d/t pt being lethargic, unsafe to do so at this time.) PT Exercises Exercise Treatment: Seated and reclined B LE therex A/AROM at times, other times PROM completed d/t patient's inability to stay awake for treatment. 15x each in all available planes of motion. Safety Devices Type of Devices: Call light within reach;Chair alarm in place;All fall risk precautions in place;Patient at risk for falls;Left in chair;Nurse notified Goals Short Term Goals Time Frame for Short Term Goals: 20 days Short Term Goal 1: Patient to complete all transfers with SUP and no LOB to decrease fall risk. Short Term Goal 2: Patient to ambulate 50ftx2 with FWW and SUP with no LOB or fatigue to improve mobility. Short Term Goal 3: Patient to tolerate 20-30 min of ther ex/act to improve functional strength. Short Term Goal 4: Patient to have Fair static standing balance to decrease fall risk. Education Patient Education Education Given To: Patient Education Provided: Home Exercise Program Education Provided Comments: Pt unable to retain education at this time, continue to educate. Education Method: Verbal;Demonstration Barriers to Learning: Cognition Education Outcome: Continued education needed Therapy Time Individual Concurrent Group Co-treatment Time In 1037 Time Out 1052 Minutes 15 Harriet Dang, CONTACT FINGER ASSEMBLER [id number] Images from the original note were not included. [facility] Department of Pharmacy Pharmacy Renal Adjustment Note Angella Olson is a 67 y.o. female. Pharmacist assessment of renally cleared medications. Recent Labs 11/19/22 0610 11/20/22 0535 11/21/22 0550 CREATININE 3.09* 1.58* 1.20* Estimated Creatinine Clearance: 45 mL/min (A) (based on SCr of 1.2 mg/dL (H)). Height: Ht Readings from Last 1 Encounters: 11/19/22 5' 3 (1.6 m) Weight: Wt Readings from Last 1 Encounters: 11/21/22 173 lb 3.2 oz (78.6 kg) The following medication(s) have been adjusted based upon renal function: Trospium 20 mg daily increased back to Trospium 20 mg BID for improved renal function. Thank you, Cony Escoto, PharmD, 11/21/2022 10:08 AM Patient asleep and in bed. Easily awoken. VS obtained by student RN. Patient up to the bathroom and then up to the chair. Denies any pain. No other needs at this time Images from the original note were not included. [address] , [place], [place], [address] Progress Note Date: 11/21/2022 Patient name: Angella Olson Date of admission: 11/18/2022 8:23 PM Date of : 1955 SUBJECTIVE/Last 24 hours update: Patient seen and examined at the bed side , no new acute events overnight noted and no new complains. She was able to get some restful sleep last night. Tolerating Po intake well, no n/v/d. She was sitting up in the chair yesterday for most of the day. Notes from nursing staff and Consults had been reviewed, and the overnight progress had been checked with the nursing staff as well. REVIEW OF SYSTEMS: CONSTITUTIONAL: no fevers, no headcahes EYES: negative for blury vision HEENT: No headaches, No nasal congestion, no difficulty swallowing RESPIRATORY:negative for dyspnea, no wheezing, no Cough CARDIOVASCULAR: negative for chest pain, no palpitations GASTROINTESTINAL: no nausea, no vomiting, no change in bowel habits, no abdominal pain GENITOURINARY: negative for dysuria, no hematuria MUSCULOSKELETAL: no joint pains, no muscle aches, no swelling of joints or extremities NEUROLOGICAL: No Weakness or numbness, sleeping difficulty PAST MEDICAL HISTORY: has a past medical history of Anxiety, Arthritis, Bipolar disorder (HCC), COPD (chronic obstructive pulmonary disease) (HCC), Depression, Fibromyalgia, Hypertension, Liver disease, Non-alcoholic fatty liver disease, Obesity, Pulmonary fibrosis (HCC), 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 PAST SURGICAL HISTORY: has a past surgical history that includes back surgery; Eye surgery; Abdomen surgery; section (1984); other surgical history; Colonoscopy; Upper gastrointestinal endoscopy; Mohs surgery (Left, 12/2019); Pain management procedure (Bilateral, 11/26/2021); Pain management procedure (Bilateral, 01/21/2022); other surgical history; other surgical history (Right); Pain management procedure (Right, 03/18/2022); Pain management procedure (N/A, 06/10/2022); Esophagogastroduodenoscopy (10/2021); Esophagogastroduodenoscopy (06/2021); Kyphosis surgery (10/06/2022); and Spine surgery (N/A, 10/06/2022). SOCIAL HISTORY: reports that she quit smoking about 13 years ago. Her smoking use included cigarettes. She has a 30.00 pack-year smoking history. She has never used smokeless tobacco. She reports that she does not drink alcohol and does not use drugs. TOBACCO: reports that she quit smoking about 13 years ago. Her smoking use included cigarettes. She has a 30.00 pack-year smoking history. She has never used smokeless tobacco. ETOH: reports no history of alcohol use. FAMILY HISTORY: family history includes Other in her mother and son. Problem Relation Age of Onset Other Mother Interstitial Pulmonary fibrosis. Other Son stomach issues-rapid onset diarrhea HOME MEDICATIONS: Prior to Admission medications Medication Sig Start Date End Date Taking? Authorizing Provider fluticasone furoate-vilanterol (BREO ELLIPTA) 200-25 MCG/ACT AEPB inhaler Inhale 1 puff into the lungs daily Yes Historical Provider, cycloSPORINE (RESTASIS) 0.05 % ophthalmic emulsion Place 1 drop into both eyes in the morning and 1 drop in the evening. Yes Historical Provider, rifAXIMin (XIFAXAN) 550 MG tablet Take 1 tablet by mouth 2 times daily Yes Historical Provider, metFORMIN (GLUCOPHAGE) 1000 MG tablet TAKE 1 TABLET IN THE MORNING AND 1 TABLET IN THEEVENING WITH MEALS 10/23/22 Justyna Valderrama, COMMERCIAL HVAC SERVICE TECHNICIAN - NEWSPAPER COPY EDITOR allopurinol (ZYLOPRIM) 300 MG tablet Take 0.5 tablets by mouth daily 10/23/22 01/21/23 CELIA Aguilar CNP atenolol (TENORMIN) 50 MG tablet One tablet nightly 10/23/22 CELIA Aguilar CNP atorvastatin (LIPITOR) 80 MG tablet TAKE 1 TABLET DAILY 10/23/22 CELIA Aguilar CNP insulin detemir (LEVEMIR FLEXTOUCH) 100 UNIT/ML injection pen INJECT 20 UNITS SUBCUTANEOUSLY TWO TIMES A DAY 10/23/22 CELIA Aguilar CNP fluticasone (FLONASE) 50 MCG/ACT nasal spray 2 sprays by Each Nostril route daily as needed for Allergies 10/13/22 CELIA Reyna CNP lactulose (CHRONULAC) 10 GM/15ML solution Take 45 mLs by mouth 2 times daily 09/11/22 CELIA Gómez CNP FLUoxetine (PROZAC) 40 MG capsule Take 1 capsule by mouth daily 08/13/22 11/18/22 Sophie Solomon MD melatonin 1 MG tablet Take 1 tablet by mouth at bedtime Historical Provider, furosemide (LASIX) 40 MG tablet Take 1 tablet by mouth daily 07/21/22 Pat Baig MD spironolactone (ALDACTONE) 50 MG tablet Take 1 tablet by mouth daily 07/21/22 Pat Baig MD trospium (SANCTURA) 20 MG tablet Take 1 tablet by mouth 2 times daily 05/07/22 Alex Morse PA-C divalproex (DEPAKOTE ER) 250 MG extended release tablet TAKE 3 TABLETS NIGHTLY Patient taking differently: 3 tablets at bedtime 03/10/22 CELIA Valle CNP gabapentin (NEURONTIN) 100 MG capsule TAKE 1 CAPSULE TWICE DAILY Patient taking differently: Take 1 capsule by mouth in the morning and at bedtime. 11/13/21 11/18/22 CELIA Aguilar CNP omeprazole (PRILOSEC) 20 MG delayed release capsule Take 1 capsule by mouth daily 01/03/21 CELIA Padilla CNP ferrous sulfate (IRON 325) 325 (65 Fe) MG tablet Take 1 tablet by mouth every 48 hours Every other day 06/18/20 CELIA Valle CNP Multiple Vitamins-Minerals (CENTRUM SILVER 50+WOMEN) TABS Take 1 tablet by mouth daily 06/18/20 Hallie Huynh APRN - MABEL vitamin D (CHOLECALCIFEROL) 1000 units TABS tablet Take 1 tablet by mouth daily Historical Provider, ALLERGIES: Latex, Clindamycin/lincomycin, Erythromycin base, Fentanyl, Gatifloxacin, Indomethacin, Iodine tincture [iodine], Pcn [penicillins], Shellfish-derived products, Sulfa antibiotics, Tetracyclines & related, Lidocaine, Nitrofuran derivatives, Phenazopyridine hcl, and Phenazopyridine OBJECTIVE: Vitals: 11/20/22 1829 11/20/22 2033 11/21/22 0327 11/21/22 0600 BP: (!) 102/56 (!) 109/57 Pulse: 94 73 Resp: 20 18 Temp: 97.2 F (36.2 C) 98.2 F (36.8 C) TempSrc: Temporal Oral SpO2: 97% 93% 93% Weight: 173 lb 3.2 oz (78.6 kg) Height: Intake/Output Summary (Last 24 hours) at 11/21/2022 0625 Last data filed at 11/21/2022 0459 Gross per 24 hour Intake 3646 ml Output 300 ml Net 3346 ml PHYSICAL EXAM: General Appearance Alert , awake , not in acute distress, oriented to person and location ([facility]) HEENT - Head is normocephalic, atraumatic. Lungs - Bilateral equal air entry , no wheezes, rales or rhonchi, aeration good Cardiovascular - Heart sounds are normal. Regular rhythm, normal rate without murmur, gallop or rub. Abdomen - Soft, nontender, nondistended, no masses or organomegaly Neurologic - There are no new focal motor or sensory deficits Skin - No bruising or bleeding on exposed skin area Extremities - No cyanosis, clubbing or edema DIAGNOSTICS: Laboratory Testing: See [facility] EMR for lab data Recent Results (from the past 24 hour(s)) Glucose, Whole Blood Collection Time: 11/20/22 11:05 AM Result Value Ref Range POC Glucose 203 (H) 74 - 100 mg/dL Glucose, Whole Blood Collection Time: 11/20/22 4:23 PM Result Value Ref Range POC Glucose 242 (H) 74 - 100 mg/dL Magnesium Collection Time: 11/20/22 5:05 PM Result Value Ref Range Magnesium 1.4 (L) 1.6 - 2.6 mg/dL EKG 12 Lead Collection Time: 11/20/22 5:05 PM Result Value Ref Range Ventricular Rate 95 BPM Atrial Rate 95 BPM P-R Interval 138 ms QRS Duration 88 ms Q-T Interval 304 ms QTc Calculation (Bazett) 382 ms P Henderson 55 degrees R Henderson -12 degrees T Henderson 133 degrees Glucose, Whole Blood Collection Time: 11/20/22 8:23 PM Result Value Ref Range POC Glucose 268 (H) 74 - 100 mg/dL Current Facility-Administered Medications Medication Dose Route Frequency Provider Last Rate Last Admin traZODone (DESYREL) tablet 100 mg 100 mg Oral Nightly PRN Libby Crespo MD 100 mg at 11/20/222044 melatonin tablet 1.5 mg 1.5 mg Oral Nightly Libby Crespo MD sodium bicarbonate 75 mEq in sodium chloride 0.45 % 1,000 mL infusion IntraVENous Continuous Pierce Oneiln, DO 125 mL/hr at 11/20/222128 New Bag at 11/20/222128 cefTRIAXone (ROCEPHIN) 1,000 mg in sodium chloride 0.9 % 50 mL IVPB (mini-bag) 1,000 mg IntraVENous Q24H Libby Crespo MD Stopped at 11/20/227 allopurinol (ZYLOPRIM) tablet 150 mg 150 mg Oral Daily Eren Park MD 150 mg at 11/20/221030 atenolol (TENORMIN) tablet 50 mg 50 mg Oral Nightly Eren Park MD 50 mg at 11/20/222044 atorvastatin (LIPITOR) tablet 80 mg 80 mg Oral Nightly Eren Park MD 80 mg at 11/20/222044 polyvinyl alcohol (LIQUIFILM TEARS) 1.4 % ophthalmic solution 1 drop 1 drop Both Eyes BID Eren Park MD 1 drop at 11/20/222046 divalproex (DEPAKOTE ER) extended release tablet 750 mg 750 mg Oral Nightly Eren Park MD 750 mg at 11/20/222044 FLUoxetine (PROZAC) capsule 40 mg 40 mg Oral Daily Eren Park MD 40 mg at 04/06/23 1031 fluticasone (FLONASE) 50 MCG/ACT nasal spray 2 spray 2 spray Each Nostril Daily PRN Eren Park MD mometasone-formoterol (DULERA) 200-5 MCG/ACT inhaler 2 puff 2 puff Inhalation BID Eren Park MD 2 puff at 11/20/222032 gabapentin (NEURONTIN) capsule 100 mg 100 mg Oral BID Eren Park MD 100 mg at 11/20/222044 lactulose (CHRONULAC) 10 GM/15ML solution 30 g 30 g Oral BID Eren Park MD 30 g at 11/20/22 103 [Held by provider] metFORMIN (GLUCOPHAGE) tablet 1,000 mg 1,000 mg Oral BID WC Eren Park MD pantoprazole (PROTONIX) tablet 40 mg 40 mg Oral QAM AC Eren Park MD 40 mg at 11/20/22 0644 rifAXIMin (XIFAXAN) tablet 550 mg 550 mg Oral BID Eren Park MD 550 mg at 11/20/222044 trospium (SANCTURA) tablet 20 mg 20 mg Oral QHS Eren Park MD 20 mg at 11/20/222044 vitamin D (CHOLECALCIFEROL) tablet 1,000 Units 1,000 Units Oral Daily Eren Park MD 1,000 Units at 11/20/22 1025 sodium chloride flush 0.9 % injection 10 mL 10 mL IntraVENous 2 times per day Eren Park MD sodium chloride flush 0.9 % injection 10 mL 10 mL IntraVENous PRN Eren Park MD 0.9 % sodium chloride infusion IntraVENous PRN Eren Park MD ondansetron (ZOFRAN-ODT) disintegrating tablet 4 mg 4 mg Oral Q8H PRN Eren Park MD Or ondansetron (ZOFRAN) injection 4 mg 4 mg IntraVENous Q6H PRN Eren Park MD polyethylene glycol (GLYCOLAX) packet 17 g 17 g Oral Daily PRN Eren Park MD acetaminophen (TYLENOL) tablet 650 mg 650 mg Oral Q6H PRN Eren Park MD 650 mg at 11/20/22 1411 Or acetaminophen (TYLENOL) suppository 650 mg 650 mg Rectal Q6H PRN Eren Park MD [Held by provider] heparin (porcine) injection 5,000 Units 5,000 Units SubCUTAneous 3 times per day Eren Park MD 5,000 Units at 11/20/22 1412 insulin glargine (LANTUS) injection vial 20 Units 20 Units SubCUTAneous BID Eren Park MD 20 Units at 11/20/22 210 glucose chewable tablet 16 g 4 tablet Oral PRN Eren Park MD dextrose bolus 10% 125 mL 125 mL IntraVENous PRN Eren Park MD Or dextrose bolus 10% 250 mL 250 mL IntraVENous PRN Eren Park MD glucagon injection 1 mg 1 mg SubCUTAneous PRN Eren Park MD dextrose 10 % infusion IntraVENous Continuous PRN Eren Park MD therapeutic multivitamin-minerals 1 tablet 1 tablet Oral Daily Eren Park MD 1 tablet at 11/20/22 1031 ferrous sulfate (IRON 325) tablet 325 mg 325 mg Oral Q48H Eren Park MD 325 mg at 11/19/222038 ASSESSMENT: Principal Problem: Acute kidney injury superimposed on CKD (HCC) Active Problems: Moderate malnutrition (HCC) Complicated UTI (urinary tract infection) Stage 3 chronic kidney disease (HCC) Essential hypertension Cirrhosis of liver without ascites (HCC) Resolved Problems: * No resolved hospital problems. * PLAN: Primary Problem(s): Acute kidney injury superimposed on CKD (HCC) Differential diagnoses: UTI Condition is improving Treatment plan: Continue current treatment Imaging: no further imaging studies ordered today Medications: Continue Rocephin d3, awaiting cultures Medication Monitoring / High Risk Medications: none Nephrology is following, appreciate recommendations and management Monitor labs Cultures, pending sensitivity Culture GRAM NEGATIVE RODS >[id number] CFU/ML Abnormal Mag replacement Switch IVF Monitor labs, CBC closely, noted to have some leukopenia, may consider Heme-Onc Consult, although etiology is suspected to be 2/2 current infection. Dispo pending clinical status/renal function, Nephrology recommendations and final urine culture results DVT prophylaxis: SCD GI prophylaxis: Protonix Above plan discussed with the patient who agreed to the above plan Discussed care plan with nurse after getting their input. Please note that this chart was generated using voice recognition Dragon dictation software. Although every effort was made to ensure the accuracy of this automated igniter assembler, some errors in igniter assembler may have occurred. Libby Crespo MD 11/21/2022 6:25 AM Patient called son stating she was scared and confused at this time. Retail Assistant spoke with son and patient states she does feel better at this time after speaking with son and clinical writer and is not sure why she felt scared. Patient resting comfortably at this time. Patient denies any pain and any other needs at this time. Patient states she feels much better but does still have tenderness in her abdomen. Patient alert & oriented x4 and able to answer all questions appropriately and follow commands. Assessment and vitals as charted. Bed alarm on, bed locked, gripper socks on, call light within reach and able to use appropriately. Will continue to monitor this shift. Physical Therapy Facility/Department: [facility] Daily Treatment Note NAME: Angella Olson : 1955 Date of Service: 11/20/2022 Discharge Recommendations: Continue to assess pending progress, Subacute/Halfway Facility, IP Rehab, Home with Home health PT Patient Diagnosis(es): The primary encounter diagnosis was Acute kidney injury (HCC). Diagnoses of Acute cystitis without hematuria and Dehydration were also pertinent to this visit. Assessment Assessment: Pt confused . Reports with soreness in LB region. Pt ambulated 100x2 with rolling walker and +1 CGA. VC needed for walker control. Seated exercise performed with demonstration. Pt put back to bed with bed alarm on Activity Tolerance: Patient limited by fatigue;Patient limited by endurance Plan Physcial Therapy Plan General Plan: 2 times a day 7 days a week Current Treatment Recommendations: Strengthening;ROM;Balance training;Functional mobility training;Transfer training;Gait training;Neuromuscular re-education;Patient/Caregiver education & training;Safety education & training;Home exercise program;Therapeutic activities;Endurance training Restrictions Restrictions/Precautions Restrictions/Precautions: General Precautions, Fall Risk Subjective Subjective Subjective: Pt states her back bothers her a little today. States its sore Pain: Pt denies pain in kidney/liver Orientation Overall Orientation Status: Impaired Orientation Level: Oriented to person Cognition Overall Cognitive Status: WF Cognition Comment: Pt required increased time to follow commands and demoed periods of confusion. Objective Vitals Bed Mobility Training Bed Mobility Training: Yes Overall Level of Assistance: Minimum assistance;Assist X1 Interventions: Verbal cues;Safety awareness training Rolling: Stand-by assistance;Assist X1 Supine to Sit: Minimum assistance;Assist X1 Sit to Supine: Minimum assistance;Assist X1 Scooting: Moderate assistance;Assist X2 Balance Sitting: Intact Standing: With support Transfer Training Transfer Training: Yes Overall Level of Assistance: Contact-guard assistance Interventions: Safety awareness training;Verbal cues Sit to Stand: Contact-guard assistance;Assist X1 Stand to Sit: Contact-guard assistance;Assist X1 Stand Pivot Transfers: Contact-guard assistance;Assist X1;Additional time Gait Training Gait Training: Yes Gait Overall Level of Assistance: Contact-guard assistance;Assist X1;Additional time Interventions: Safety awareness training;Verbal cues Base of Support: Widened Speed/Kayla: Delayed;Slow;Other (comment) (frequent stopping) Gait Abnormalities: Shuffling gait Distance (ft): 75 Feet Assistive Device: Walker, rolling;Gait belt Wheelchair Management Wheelchair Management: No Neuromuscular Education Neuromuscular Education: No PT Exercises Exercise Treatment: seated marches, ankle pumps, LAQ x10 A/AROM Exercises: B LE LAQ's ankle pumps, hip flx x 10 Safety Devices Type of Devices: Bed alarm in place;Call light within reach;Left in bed Goals Short Term Goals Time Frame for Short Term Goals: 20 days Short Term Goal 1: Patient to complete all transfers with SUP and no LOB to decrease fall risk. Short Term Goal 2: Patient to ambulate 50ftx2 with FWW and SUP with no LOB or fatigue to improve mobility. Short Term Goal 3: Patient to tolerate 20-30 min of ther ex/act to improve functional strength. Short Term Goal 4: Patient to have Fair static standing balance to decrease fall risk. Education Patient Education Education Provided Comments: Walker control Therapy Time Individual Concurrent Group Co-treatment Time In 1255 Time Out 1320 Minutes 25 Timed Code Treatment Minutes: 24 Minutes Yogesh A AdelspergerPTA Physical Therapy Facility/Department: [facility] Daily Treatment Note NAME: Angella Olson : 1955 Date of Service: 11/20/2022 Discharge Recommendations: Continue to assess pending progress, Subacute/Halfway Facility, IP Rehab, Home with Home health PT Patient Diagnosis(es): The primary encounter diagnosis was Acute kidney injury (HCC). Diagnoses of Acute cystitis without hematuria and Dehydration were also pertinent to this visit. Assessment Assessment: Seated EOB ther ex completed marches, LAQ, ankle pumps x10. Pt ambulated 75' CGA x1, pt demo's shuffling gait with frequent stopping with confusion. Pt required cues for directional changes and hand placement on FWW. Pt required increased time for processing ambualtion and stand to sit back to bed. Pt mod A x2 for scooting in bed, pt confused on how to scoot up in bed. Pt started crying during ambulation in hallway d/t confusion on what she was doing. Pt asked multiple times for CONTACT FINGER ASSEMBLER to remove IV lines from arm. Pt confused on why IV lines were inserted. Activity Tolerance: Patient limited by fatigue;Patient limited by endurance Plan Physcial Therapy Plan General Plan: 2 times a day 7 days a week Current Treatment Recommendations: Strengthening;ROM;Balance training;Functional mobility training;Transfer training;Gait training;Neuromuscular re-education;Patient/Caregiver education & training;Safety education & training;Home exercise program;Therapeutic activities;Endurance training Restrictions Restrictions/Precautions Restrictions/Precautions: General Precautions, Fall Risk Subjective Subjective Subjective: Pt in bed upon arrival, agreeable to physical therapy. Pain: Pt denies pain in kidney/liver Orientation Overall Orientation Status: Within Functional Limits Cognition Overall Cognitive Status: [facility] Cognition Comment: Pt required increased time to follow commands and demoed periods of confusion. Pt started crying during ambulation in hallway d/t confusion on what she was doing. Pt asked multiple times for CONTACT FINGER ASSEMBLER to remove IV lines from arm. Pt confused on why IV lines were inserted. Objective Bed Mobility Training Bed Mobility Training: Yes Overall Level of Assistance: Minimum assistance;Assist X1;Moderate assistance;Other (comment);Assist X2 (Pt required mod x2 for scooting up in bed) Interventions: Verbal cues;Safety awareness training Rolling: Stand-by assistance;Assist X1 Supine to Sit: Minimum assistance;Assist X1 Sit to Supine: Minimum assistance;Assist X1 Scooting: Moderate assistance;Assist X2 Balance Sitting: Intact Standing: With support Transfer Training Transfer Training: Yes Overall Level of Assistance: Contact-guard assistance;Assist X1 Interventions: Safety awareness training;Verbal cues Sit to Stand: Contact-guard assistance;Assist X1 Stand to Sit: Contact-guard assistance;Assist X1 Gait Training Gait Training: Yes Gait Overall Level of Assistance: Contact-guard assistance;Assist X1;Additional time Interventions: Safety awareness training;Verbal cues Base of Support: Widened Speed/Kayla: Delayed;Slow;Other (comment) (frequent stopping) Gait Abnormalities: Shuffling gait Distance (ft): 75 Feet Assistive Device: Walker, rolling;Gait belt Wheelchair Management Wheelchair Management: No Neuromuscular Education Neuromuscular Education: No PT Exercises Exercise Treatment: seated marches, ankle pumps, LAQ x10 Safety Devices Type of Devices: All fall risk precautions in place;Call light within reach;Bed alarm in place;Left in bed;Nurse notified;Gait belt Goals Short Term Goals Time Frame for Short Term Goals: 20 days Short Term Goal 1: Patient to complete all transfers with SUP and no LOB to decrease fall risk. Short Term Goal 2: Patient to ambulate 50ftx2 with FWW and SUP with no LOB or fatigue to improve mobility. Short Term Goal 3: Patient to tolerate 20-30 min of ther ex/act to improve functional strength. Short Term Goal 4: Patient to have Fair static standing balance to decrease fall risk. Education Patient Education Education Given To: Patient Education Provided: Role of Therapy;Plan of Care;Transfer Training Education Provided Comments: Educated pt during ambulation for increased step length and with directional changes, pt demoed increased processing time. Education Method: Verbal Barriers to Learning: None Education Outcome: Verbalized understanding;Continued education needed Therapy Time Individual Concurrent Group Co-treatment Time In 1005 Time Out 1032 Minutes 27 Afia Anne PTA [address] , [place], [place], [address] Progress Note Date: 11/20/2022 Patient name: Angella Olson Date of admission: 11/18/2022 8:23 PM Date of : 1955 SUBJECTIVE/Last 24 hours update: Patient seen and examined at the bed side , no new acute events overnight, no new complains this morning. She states that her appetite has improved compared to prior. No fever/chills. She states that she did not get good sleep last night. She takes melatonin nightly and 50mg of Trazodone hs. Notes from nursing staff and Consults had been reviewed, and the overnight progress had been checked with the nursing staff as well. REVIEW OF SYSTEMS: CONSTITUTIONAL: no fevers, no headcahes EYES: negative for blury vision HEENT: No headaches, No nasal congestion, no difficulty swallowing RESPIRATORY:negative for dyspnea, no wheezing, no Cough CARDIOVASCULAR: negative for chest pain, no palpitations GASTROINTESTINAL: no nausea, no vomiting, no change in bowel habits, no abdominal pain GENITOURINARY: negative for dysuria, no hematuria MUSCULOSKELETAL: no joint pains, no muscle aches, no swelling of joints or extremities NEUROLOGICAL: No Weakness or numbness, sleeping difficulty PAST MEDICAL HISTORY: has a past medical history of Anxiety, Arthritis, Bipolar disorder (HCC), COPD (chronic obstructive pulmonary disease) (HCC), Depression, Fibromyalgia, Hypertension, Liver disease, Non-alcoholic fatty liver disease, Obesity, Pulmonary fibrosis (HCC), 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 PAST SURGICAL HISTORY: has a past surgical history that includes back surgery; Eye surgery; Abdomen surgery; section (1984); other surgical history; Colonoscopy; Upper gastrointestinal endoscopy; Mohs surgery (Left, 12/2019); Pain management procedure (Bilateral, 11/26/2021); Pain management procedure (Bilateral, 01/21/2022); other surgical history; other surgical history (Right); Pain management procedure (Right, 03/18/2022); Pain management procedure (N/A, 06/10/2022); Esophagogastroduodenoscopy (10/2021); Esophagogastroduodenoscopy (06/2021); Kyphosis surgery (10/06/2022); and Spine surgery (N/A, 10/06/2022). SOCIAL HISTORY: reports that she quit smoking about 13 years ago. Her smoking use included cigarettes. She has a 30.00 pack-year smoking history. She has never used smokeless tobacco. She reports that she does not drink alcohol and does not use drugs. TOBACCO: reports that she quit smoking about 13 years ago. Her smoking use included cigarettes. She has a 30.00 pack-year smoking history. She has never used smokeless tobacco. ETOH: reports no history of alcohol use. FAMILY HISTORY: family history includes Other in her mother and son. Problem Relation Age of Onset Other Mother Interstitial Pulmonary fibrosis. Other Son stomach issues-rapid onset diarrhea HOME MEDICATIONS: Prior to Admission medications Medication Sig Start Date End Date Taking? Authorizing Provider fluticasone furoate-vilanterol (BREO ELLIPTA) 200-25 MCG/ACT AEPB inhaler Inhale 1 puff into the lungs daily Yes Historical Provider, cycloSPORINE (RESTASIS) 0.05 % ophthalmic emulsion Place 1 drop into both eyes in the morning and 1 drop in the evening. Yes Historical Provider, rifAXIMin (XIFAXAN) 550 MG tablet Take 1 tablet by mouth 2 times daily Yes Historical Provider, metFORMIN (GLUCOPHAGE) 1000 MG tablet TAKE 1 TABLET IN THE MORNING AND 1 TABLET IN THEEVENING WITH MEALS 10/23/22 CELIA Aguilar CNP allopurinol (ZYLOPRIM) 300 MG tablet Take 0.5 tablets by mouth daily 10/23/22 01/21/23 CELIA Aguilar CNP atenolol (TENORMIN) 50 MG tablet One tablet nightly 10/23/22 CELIA Aguilar CNP atorvastatin (LIPITOR) 80 MG tablet TAKE 1 TABLET DAILY 10/23/22 CELIA Aguilar CNP insulin detemir (LEVEMIR FLEXTOUCH) 100 UNIT/ML injection pen INJECT 20 UNITS SUBCUTANEOUSLY TWO TIMES A DAY 10/23/22 CELIA Aguilar CNP fluticasone (FLONASE) 50 MCG/ACT nasal spray 2 sprays by Each Nostril route daily as needed for Allergies 10/13/22 CELIA Reyna CNP lactulose (CHRONULAC) 10 GM/15ML solution Take 45 mLs by mouth 2 times daily 09/11/22 CELIA Gómez CNP FLUoxetine (PROZAC) 40 MG capsule Take 1 capsule by mouth daily 08/13/22 11/18/22 Sophie Solomon MD melatonin 1 MG tablet Take 1 tablet by mouth at bedtime Historical Provider, furosemide (LASIX) 40 MG tablet Take 1 tablet by mouth daily 07/21/22 Pat Baig MD spironolactone (ALDACTONE) 50 MG tablet Take 1 tablet by mouth daily 07/21/22 Pat Baig MD trospium (SANCTURA) 20 MG tablet Take 1 tablet by mouth 2 times daily 05/07/22 Alex Morse PA-C divalproex (DEPAKOTE ER) 250 MG extended release tablet TAKE 3 TABLETS NIGHTLY Patient taking differently: 3 tablets at bedtime 03/10/22 CELIA Valle CNP gabapentin (NEURONTIN) 100 MG capsule TAKE 1 CAPSULE TWICE DAILY Patient taking differently: Take 1 capsule by mouth in the morning and at bedtime. 11/13/21 11/18/22 CELIA Aguilar CNP omeprazole (PRILOSEC) 20 MG delayed release capsule Take 1 capsule by mouth daily 01/03/21 Mukesh Castanon APRN - MABEL ferrous sulfate (IRON 325) 325 (65 Fe) MG tablet Take 1 tablet by mouth every 48 hours Every other day 06/18/20 CELIA Valle CNP Multiple Vitamins-Minerals (CENTRUM SILVER 50+WOMEN) TABS Take 1 tablet by mouth daily 06/18/20 CELIA Valle CNP vitamin D (CHOLECALCIFEROL) 1000 units TABS tablet Take 1 tablet by mouth daily Historical Provider, ALLERGIES: Latex, Clindamycin/lincomycin, Erythromycin base, Fentanyl, Gatifloxacin, Indomethacin, Iodine tincture [iodine], Pcn [penicillins], Shellfish-derived products, Sulfa antibiotics, Tetracyclines & related, Lidocaine, Nitrofuran derivatives, Phenazopyridine hcl, and Phenazopyridine OBJECTIVE: Vitals: 11/19/22203811/19/22 2344 11/20/22 0400 11/20/22 0636 BP: (!) 99/59 110/67 (!) 99/50 Pulse: 87 87 93 Resp: 20 18 Temp: 97.8 F (36.6 C) 97.6 F (36.4 C) TempSrc: Temporal Temporal SpO2: 97% 97% Weight: 170 lb 8 oz (77.3 kg) Height: Intake/Output Summary (Last 24 hours) at 11/20/2022 0737 Last data filed at 11/20/2022 0730 Gross per 24 hour Intake 4726.12 ml Output 900 ml Net 3826.12 ml PHYSICAL EXAM: General Appearance Alert , awake , not in acute distress, oriented to person and location ([facility]) HEENT - Head is normocephalic, atraumatic. Lungs - Bilateral equal air entry , no wheezes, rales or rhonchi, aeration good Cardiovascular - Heart sounds are normal. Regular rhythm, normal rate without murmur, gallop or rub. Abdomen - Soft, nontender, nondistended, no masses or organomegaly Neurologic - There are no new focal motor or sensory deficits Skin - No bruising or bleeding on exposed skin area Extremities - No cyanosis, clubbing or edema DIAGNOSTICS: Laboratory Testing: See [facility] EMR for lab data Recent Results (from the past 24 hour(s)) Glucose, Whole Blood Collection Time: 11/19/22 11:16 AM Result Value Ref Range POC Glucose 173 (H) 74 - 100 mg/dL Glucose, Whole Blood Collection Time: 11/19/22 4:42 PM Result Value Ref Range POC Glucose 163 (H) 74 - 100 mg/dL Glucose, Whole Blood Collection Time: 11/19/22 7:39 PM Result Value Ref Range POC Glucose 231 (H) 74 - 100 mg/dL CBC auto differential Collection Time: 11/20/22 5:35 AM Result Value Ref Range WBC 2.8 (L) 3.5 - 11.3 k/uL RBC 3.38 (L) 3.95 - 5.11 m/uL Hemoglobin 10.1 (L) 11.9 - 15.1 g/dL Hematocrit 30.0 (L) 36.3 - 47.1 % MCV 88.8 82.6 - 102.9 fL MCH 29.9 25.2 - 33.5 pg MCHC 33.7 28.4 - 34.8 g/dL RDW 17.2 (H) 11.8 - 14.4 % Platelets See Reflexed IPF Result 138 - 453 k/uL NRBC Automated 0.0 0.0 per 100 WBC Seg Neutrophils 44 36 - 65 % Lymphocytes 46 (H) 24 - 43 % Monocytes 8 3 - 12 % Eosinophils % 1 1 - 4 % Immature Granulocytes 0 0 % Basophils 1 0 - 2 % Segs Absolute 1.23 (L) 1.50 - 8.10 k/uL Absolute Lymph # 1.29 1.10 - 3.70 k/uL Absolute Sullivan # 0.22 0.10 - 1.20 k/uL Absolute Eos # 0.03 0.00 - 0.44 k/uL Absolute Immature Granulocyte 0.00 0.00 - 0.30 k/uL Basophils Absolute 0.03 0.00 - 0.20 k/uL Morphology Platelet scan shows Decreased Platelets Comprehensive Metabolic Panel w/ Reflex to MG Collection Time: 11/20/22 5:35 AM Result Value Ref Range Glucose 84 70 - 99 mg/dL BUN 47 (H) 8 - 23 mg/dL Creatinine 1.58 (H) 0.50 - 0.90 mg/dL Est, Glom Filt Rate 35 (L) >60 mL/min/1.73m2 Bun/Cre Ratio 30 (H) 9 - 20 Calcium 8.7 8.6 - 10.4 mg/dL Sodium 140 135 - 144 mmol/L Potassium 3.8 3.7 - 5.3 mmol/L Chloride 105 98 - 107 mmol/L CO2 23 20 - 31 mmol/L Anion Gap 12 9 - 17 mmol/L Alkaline Phosphatase 109 (H) 35 - 104 U/L ALT 16 5 - 33 U/L AST 28 <32 U/L Total Bilirubin 0.2 (L) 0.3 - 1.2 mg/dL Total Protein 6.3 (L) 6.4 - 8.3 g/dL Albumin 2.9 (L) 3.5 - 5.2 g/dL Albumin/Globulin Ratio 0.9 (L) 1.0 - 2.5 Immature Platelet Fraction Collection Time: 11/20/22 5:35 AM Result Value Ref Range Platelet, Immature Fraction 1.7 1.1 - 10.3 % Platelet, Fluorescence 111 (L) 138 - 453 k/uL Magnesium Collection Time: 11/20/22 5:35 AM Result Value Ref Range Magnesium 1.1 (LL) 1.6 - 2.6 mg/dL Reticulocytes Collection Time: 11/20/22 5:35 AM Result Value Ref Range Retic % 2.8 (H) 0.5 - 1.9 % Absolute Retic # 0.094 (H) 0.030 - 0.080 M/uL Immature Retic Fract 17.100 2.7 - 18.3 % Retic Hemoglobin 35.2 28.2 - 35.7 pg Current Facility-Administered Medications Medication Dose Route Frequency Provider Last Rate Last Admin traZODone (DESYREL) tablet 100 mg 100 mg Oral Nightly PRN Libby Crespo MD magnesium sulfate 2000 mg in 50 mL IVPB premix 2,000 mg IntraVENous Once Libby Crespo MD 25 mL/hr at 11/20/22 0718 2,000 mg at 11/20/22 0718 sodium bicarbonate 75 mEq in sodium chloride 0.45 % 1,000 mL infusion IntraVENous Continuous Pierce Payne DO 125 mL/hr at 11/20/22 0400 New Bag at 11/20/22 0400 cefTRIAXone (ROCEPHIN) 1,000 mg in sodium chloride 0.9 % 50 mL IVPB (mini-bag) 1,000 mg IntraVENous Q24H Libby Crespo MD Stopped at 11/19/222130 allopurinol (ZYLOPRIM) tablet 150 mg 150 mg Oral Daily Eren Park MD 150 mg at 11/19/22829 atenolol (TENORMIN) tablet 50 mg 50 mg Oral Nightly Eren Park MD atorvastatin (LIPITOR) tablet 80 mg 80 mg Oral Nightly Eren Park MD 80 mg at 11/19/222038 polyvinyl alcohol (LIQUIFILM TEARS) 1.4 % ophthalmic solution 1 drop 1 drop Both Eyes BID Eren Park MD 1 drop at 11/19/222036 divalproex (DEPAKOTE ER) extended release tablet 750 mg 750 mg Oral Nightly Eren Park MD 750 mg at 11/19/222038 FLUoxetine (PROZAC) capsule 40 mg 40 mg Oral Daily Eren Park MD 40 mg at 11/19/22829 fluticasone (FLONASE) 50 MCG/ACT nasal spray 2 spray 2 spray Each Nostril Daily PRN Eren Park MD mometasone-formoterol (DULERA) 200-5 MCG/ACT inhaler 2 puff 2 puff Inhalation BID Eren Park MD 2 puff at 11/19/221958 gabapentin (NEURONTIN) capsule 100 mg 100 mg Oral BID Eren Park MD 100 mg at 11/19/222038 lactulose (CHRONULAC) 10 GM/15ML solution 30 g 30 g Oral BID Eren Park MD 30 g at 11/19/222038 [Held by provider] metFORMIN (GLUCOPHAGE) tablet 1,000 mg 1,000 mg Oral BID WC Eren Park MD pantoprazole (PROTONIX) tablet 40 mg 40 mg Oral QAM AC Eren Park MD 40 mg at 11/20/22643 rifAXIMin (XIFAXAN) tablet 550 mg 550 mg Oral BID Eren Park MD 550 mg at 11/19/222038 trospium (SANCTURA) tablet 20 mg 20 mg Oral QHS Eren Park MD 20 mg at 11/19/222214 vitamin D (CHOLECALCIFEROL) tablet 1,000 Units 1,000 Units Oral Daily Eren Park MD 1,000 Units at 11/19/22 0830 sodium chloride flush 0.9 % injection 10 mL 10 mL IntraVENous 2 times per day Eren Park MD sodium chloride flush 0.9 % injection 10 mL 10 mL IntraVENous PRN Eren Park MD 0.9 % sodium chloride infusion IntraVENous PRN Eren Park MD ondansetron (ZOFRAN-ODT) disintegrating tablet 4 mg 4 mg Oral Q8H PRN Eren Park MD Or ondansetron (ZOFRAN) injection 4 mg 4 mg IntraVENous Q6H PRN Eren Park MD polyethylene glycol (GLYCOLAX) packet 17 g 17 g Oral Daily PRN Eren Park MD acetaminophen (TYLENOL) tablet 650 mg 650 mg Oral Q6H PRN Eren Park MD 650 mg at 11/19/22 2323 Or acetaminophen (TYLENOL) suppository 650 mg 650 mg Rectal Q6H PRN Eren Park MD heparin (porcine) injection 5,000 Units 5,000 Units SubCUTAneous 3 times per day Eren Park MD 5,000 Units at 11/20/22 0522 insulin glargine (LANTUS) injection vial 20 Units 20 Units SubCUTAneous BID Eren Park MD 20 Units at 11/19/222035 glucose chewable tablet 16 g 4 tablet Oral PRN Eren Park MD dextrose bolus 10% 125 mL 125 mL IntraVENous PRN Eren Park MD Or dextrose bolus 10% 250 mL 250 mL IntraVENous PRN Eren Park MD glucagon injection 1 mg 1 mg SubCUTAneous PRN Eren Park MD dextrose 10 % infusion IntraVENous Continuous PRN Eren Park MD therapeutic multivitamin-minerals 1 tablet 1 tablet Oral Daily Eren Park MD 1 tablet at 11/19/22 0830 ferrous sulfate (IRON 325) tablet 325 mg 325 mg Oral Q48H Eren Park MD 325 mg at 11/19/222038 melatonin tablet 1 mg (Patient Supplied) 1 mg Oral Nightly Eren Park MD ASSESSMENT: Principal Problem: Acute kidney injury superimposed on CKD (HCC) Active Problems: Moderate malnutrition (HCC) Complicated UTI (urinary tract infection) Stage 3 chronic kidney disease (HCC) Essential hypertension Cirrhosis of liver without ascites (HCC) Resolved Problems: * No resolved hospital problems. * PLAN: Primary Problem(s): Acute kidney injury superimposed on CKD (HCC) Differential diagnoses: UTI Condition is improving Treatment plan: Continue current treatment Imaging: no further imaging studies ordered today Medications: Continue Rocephin d2, awaiting cultures Medication Monitoring / High Risk Medications: none Nephrology is following, appreciate recommendations and management Monitor labs Obtain b12/D, and Mg. Iron studies given anemia, replacement as needed Noted to have some hypotension, on atenolol, pt. Indicates BP runs low typically Dispo pending clinical status/renal function DVT prophylaxis: SCD GI prophylaxis: Protonix Above plan discussed with the patient who agreed to the above plan Discussed care plan with nurse after getting their input. Please note that this chart was generated using voice recognition [employer] dictation software. Although every effort was made to ensure the accuracy of this automated igniter assembler, some errors in igniter assembler may have occurred. Libby Crespo MD 11/20/2022 7:37 AM Reassessment completed at this time. Vitals taken and documented. Patient encouraged to ask questions. Patient denies pain or complaints. Call light and bed side table within reach. Side rails up times two. Patient requesting for sherbet at this time. Sherbet given. Patient in bed, watching television. Patient educated on medication to be given tonight and physician's orders to be completed. Patient stated understanding. Patient encouraged to ask questions. Patient denies of any questions at this time. Vitals taken and documented. See flow sheet for details. Assessment completed and documented. Patient alert, oriented x4. Noted to be disoriented at times. Calm, pleasant. Speech clear. Lung sounds clear in upper bilateral lobe of lungs and right middle lobe of lung. Diminished in bilateral lower lobes of lungs. Abdomen round, soft, non tender to palpation. Bowel sounds active in all four quadrants. Non-pitting edema noted in bilateral lower extremities. Scattered ecchymosis and abrasions noted. Patient denies of chest pain, numbness, tingling, or shortness of breath. Patient denies needs or concerns at this time. Call light and over bed table in reach. Side rails up times two. Patient now on phone with family. IV fluids hung. Patient moved to [facility] at this time. Physical Therapy Facility/Department: [facility] Daily Treatment Note NAME: Angella Olson : 1955 Date of Service: 11/19/2022 Discharge Recommendations: Continue to assess pending progress, Subacute/Halfway Facility, IP Rehab, Home with Home health PT Patient Diagnosis(es): The primary encounter diagnosis was Acute kidney injury (HCC). Diagnoses of Acute cystitis without hematuria and Dehydration were also pertinent to this visit. Assessment Assessment: Pt cotreated with MARTINEZ. Bed mobs Min A with Mod A x2 for scooting upward. Transfers CGA x1. Pt performed static and dynamic standing during toilet transfer with single to no UE support and CGA, pericare performed by MARTINEZ with No LOB. Pt ambulated 1x 10' and 1x 20' with WW and CGA x1 with slow shuffled gait with frequent stopping and cues needed for directional changes and continuous movement pt required increased processing time and demoed periods of confusion. Activity Tolerance: Patient limited by fatigue;Patient limited by pain Plan Physcial Therapy Plan General Plan: 2 times a day 7 days a week (1x/day on weekends and holidays) Current Treatment Recommendations: Strengthening;ROM;Balance training;Functional mobility training;Transfer training;Gait training;Neuromuscular re-education;Patient/Caregiver education & training;Safety education & training;Home exercise program;Therapeutic activities;Endurance training Restrictions Restrictions/Precautions Restrictions/Precautions: General Precautions, Fall Risk Subjective Subjective Subjective: Pt in awake in bed upon arrival and agreed to therapy Pain: c/o back pain with no rating provided Orientation Overall Orientation Status: Within Functional Limits Cognition Overall Cognitive Status: WFL Cognition Comment: Pt required increased time to follow commands and demoed periods of confusion. Objective Bed Mobility Training Bed Mobility Training: Yes Overall Level of Assistance: Minimum assistance;Assist X1;Moderate assistance;Assist X2;Other (comment) (Mod x2 only for scooting upward in bed) Interventions: Verbal cues;Safety awareness training Supine to Sit: Minimum assistance;Assist X1 Sit to Supine: Minimum assistance;Assist X1 Scooting: Moderate assistance;Assist X2 Transfer Training Transfer Training: Yes Overall Level of Assistance: Contact-guard assistance;Assist X1 Interventions: Safety awareness training;Verbal cues Sit to Stand: Contact-guard assistance;Assist X1 Stand to Sit: Contact-guard assistance;Assist X1 Stand Pivot Transfers: Contact-guard assistance;Assist X1;Additional time Toilet Transfer: Contact-guard assistance;Assist X1 Gait Training Gait Training: Yes Gait Overall Level of Assistance: Contact-guard assistance;Assist X1;Additional time Interventions: Safety awareness training;Verbal cues Speed/Kayla: Delayed;Slow;Other (comment) (frequent stopping) Step Length: Right shortened;Left shortened Gait Abnormalities: Shuffling gait Distance (ft): 30 Feet Assistive Device: Walker, rolling;Gait belt Neuromuscular Education Neuromuscular Education: No PT Exercises Dynamic Standing Balance Exercises: Pt performed static and dynamic standing during toilet transfer with single to no UE support, pericare performed by MARTINEZ. No LOB Safety Devices Type of Devices: All fall risk precautions in place;Call light within reach;Bed alarm in place;Left in bed;Nurse notified;Gait belt Goals Short Term Goals Time Frame for Short Term Goals: 20 days Short Term Goal 1: Patient to complete all transfers with SUP and no LOB to decrease fall risk. Short Term Goal 2: Patient to ambulate 50ftx2 with FWW and SUP with no LOB or fatigue to improve mobility. Short Term Goal 3: Patient to tolerate 20-30 min of ther ex/act to improve functional strength. Short Term Goal 4: Patient to have Fair static standing balance to decrease fall risk. Education Patient Education Education Given To: Patient Education Provided Comments: Educated pt during ambulation for increased step length and with directional changes, pt demoed increased processing time. Education Method: Verbal Barriers to Learning: None Education Outcome: Verbalized understanding;Continued education needed Therapy Time Individual Concurrent Group Co-treatment Time In 1532 Time Out 1605 Minutes 33 Timed Code Treatment Minutes: 10 Minutes Pasquale Zarco PTA Occupational Therapy Occupational Therapy Initial Assessment Date: 11/19/2022 Patient Name: Angella Olson : 1955 Treatment Diagnosis: generalized weakness Restrictions: Restrictions/Precautions Restrictions/Precautions: General Precautions, Fall Risk Subjective: General Patient assessed for rehabilitation services?: Yes Diagnosis: dehydration General Comment Comments: Pt in bed in side lying position on therapist arrival with eyes closed. Easily aroused and agreeable to OT evaluation. Social History: Social History Lives With: Alone (Pt reports that she lives in the apartments at [place], and she is currently, temporarily at the [facility].) Type of Home: Apartment Home Layout: One level Home Access: Level entry Bathroom Shower/Tub: Walk-in shower Bathroom Toilet: Handicap height Bathroom Equipment: Grab bars in shower, Grab bars around toilet Home Equipment: Walker, 4 wheeled, Cane, Wheelchair-manual Functional Status: Functional Status Receives Help From: Other (comment) ADL Assistance: Needs assistance Homemaking Assistance: Needs assistance Homemaking Responsibilities: No Ambulation Assistance: Independent Transfer Assistance: Independent Additional Comments: Pt reports that [facility] [place] [facility], and recently went to [facility] for rehab. Pt reports that she wants help with bathing and dressing, but she doesn't get it. However, reports to PT previously that she gets help with ADL and IADL. Objective: Activity Tolerance Activity Tolerance: Patient tolerated evaluation without incident;Patient limited by fatigue;Patient limited by pain Bed mobility Supine to Sit: Minimal assistance Sit to Supine: Minimal assistance Scooting: Minimal assistance Bed Mobility Comments: Vc's for technique Transfers Sit to stand: Contact guard assistance Stand to sit: Contact guard assistance Cognition Overall Cognitive Status: WFL Cognition Comment: Increased processing time needed when asked questions. Assessment: Assessment Performance deficits / Impairments: Decreased functional mobility ;Decreased endurance;Decreased coordination;Decreased ADL status;Decreased strength;Decreased balance;Decreased safe awareness Assessment: Pt is a 67 year old female admitted for dehydration. Pt reports that [facility] [place], but recently went to [facility] to receive rehab services. Pt presents with decreased strength and endurance, as well as increased need for assistance with ADL tasks. Pt would benefit from skilled occupational therapy services to address deficits and improve safety and independence with ADL and functional tasks. Treatment Diagnosis: generalized weakness Prognosis: Good Decision Making: Medium Complexity REQUIRES OT FOLLOW-UP: Yes Activity Tolerance Activity Tolerance: Patient tolerated evaluation without incident;Patient limited by fatigue;Patient limited by pain Plan: Occupational Therapy Plan Times Per Week: 7x/week Times Per Day: Once a day Days Per Week: 7 Days Current Treatment Recommendations: Strengthening, Balance training, Functional mobility training, Endurance training, Patient/Caregiver education & training, Safety education & training, Self-Care / ADL Goals: Short Term Goals Time Frame for Short Term Goals: 20 days Short Term Goal 1: Patient to complete all transfers with SUP and no LOB to decrease fall risk. Short Term Goal 2: Patient to ambulate 50ftx2 with FWW and SUP with no LOB or fatigue to improve mobility. Short Term Goal 3: Patient to tolerate 20-30 min of ther ex/act to improve functional strength. Short Term Goal 4: Patient to have Fair static standing balance to decrease fall risk. Therapy Time: Individual Concurrent Group Co-treatment Time In 1325 Time Out 1335 Minutes 10 Tavares Wolfe OT Met with Patient and spoke with her son, Abe, via telephone conversation, re: Patient discharge planning. Patient is a 67 year old , white female, admitted with a diagnosis of Dehydration and Altered Mental Status. Patient is alert and responding to questions appropriately, son agreeable with Patient plan to return skilled to [facility] upon discharge. Patient resides alone in her apartment at [facility] in [place]. She has been at [facility] in [place] for a week under skilled level of care. Patient uses a walker, cane and a shower chair at home for assistance. She uses [employer] for her transportation needs. States that her son lives in [place] but works in [place] and is not able to assist her much. Son is her designated decision maker and her DPOAHC. PCP is Justyna Valderrama CNP. Patient has medical insurance and denies need for further financial assistance with the cost of her prescription medications. Spoke with Kelsey in admissions at [facility] and they will start the pre cert process with Patient insurance. Plan for Patient to return to [facility] when insurance approves. Patient is a 'Full Code' status. Voices no further needs or concerns related to her discharge planning. GENI Cummings 11/19/2022 Comprehensive Nutrition Assessment Type and Reason for Visit: Initial Nutrition Recommendations/Plan: Encourage oral intakes Splenda ONS for home use (declines use of Glucerna here) Malnutrition Assessment: Malnutrition Status: Moderate malnutrition (11/19/22 0817) Context: Acute Illness Findings of the 6 clinical characteristics of malnutrition: Energy Intake: 75% or less of estimated energy requirements for 7 or more days Weight Loss: Greater than 7.5% over 3 months Body Fat Loss: No significant body fat loss Muscle Mass Loss: No significant muscle mass loss Fluid Accumulation: No significant fluid accumulation Flaking Roll Operator Strength: Not Performed Nutrition Assessment: Moderate malnutrition r/t inadequate nutrient intakes, AEB >7.5% weight losses in last 3 months from low appetite/intakes. Denies n/v etc, just a lack of desire to eat. Declines use of nutrition supplements as she doesn't like aftertaste, but does like a Splenda version which she states she could do at home. Controlled diabetes per A1C 7.0. Improving renal indices with ivf volume. NH3 was wnl, on chronic lactulose. Nutrition Related Findings: no edema. Wound Type: None Current Nutrition Intake & Therapies: Average Meal Intake: 51-75% (observed) Average Supplements Intake: None Ordered (declines use) ADULT DIET; Regular; 4 carb choices (60 gm/meal) Anthropometric Measures: Height: 5' 3 (160 cm) [place] Body Weight (IBW): 115 lbs (52 kg) Admission Body Weight: 167 lb 6.4 oz (75.9 kg) Current Body Weight: 167 lb 6.4 oz (75.9 kg), 145.6 % IBW. Weight Source: Bed Scale Current BMI (kg/m2): 29.7 Usual Body Weight: 184 lb 3.2 oz (83.6 kg) (3 months ago) % Weight Change (Calculated): -9.1 Weight Adjustment For: No Adjustment BMI Categories: Overweight (BMI 25.0-29.9) Estimated Daily Nutrient Needs: Energy Requirements Based On: Kcal/kg Weight Used for Energy Requirements: Current Energy (kcal/day): 7797-2908 (15-20) Weight Used for Protein Requirements: Charlotte Protein (g/day): 57-68 (1.1-1.3) Method Used for Fluid Requirements: 1 ml/kcal Fluid (ml/day): 1900 Nutrition Diagnosis: Moderate malnutrition related to inadequate protein-energy intake as evidenced by weight loss 7.5% in 3 months, poor intake prior to admission Lab Results Component Value Date NA 132 (L) 11/19/2022 K 4.9 11/19/2022 CL 104 11/19/2022 CO2 17 (L) 11/19/2022 BUN 79 (H) 11/19/2022 CREATININE 3.09 (H) 11/19/2022 GLUCOSE 130 (H) 11/19/2022 CALCIUM 9.0 11/19/2022 PROT 6.7 11/19/2022 LABALBU 2.9 (L) 11/19/2022 BILITOT 0.3 11/19/2022 ALKPHOS 101 11/19/2022 AST 18 11/19/2022 ALT 9 11/19/2022 LABGLOM 16 (L) 11/19/2022 GFRAA >60 05/12/2022 GLOB NOT REPORTED 08/08/2021 Hemoglobin A1C Date Value Ref Range Status 11/05/2022 7.0 (H) 4.0 - 6.0 % Final Lab Results Component Value Date VITD25 51.2 06/28/2019 Nutrition Interventions: Food and/or Nutrient Delivery: Continue Current Diet Nutrition Education/Counseling: No recommendation at this time Coordination of Nutrition Care: Continue to monitor while inpatient Plan of Care discussed with: patient Goals: Goals: Meet at least 75% of estimated needs Nutrition Monitoring and Evaluation: Behavioral-Environmental Outcomes: None Identified Food/Nutrient Intake Outcomes: Food and Nutrient Intake Physical Signs/Symptoms Outcomes: Biochemical Data, Weight Discharge Planning: Continue Oral Nutrition Supplement (at home (Splenda) ONS) Danilo Malhotra RD, LD Contact: [phone] Dr. Payne returned perfect serve. Will call in am for a tele visit with patient. Primary Nurse Livia connected with Dr Payne. Perfectserve sent to Dr Payne for Nephrology consult. Will pass along to primary nurse. Pharmacy Note Renal Dose Adjustment Angella Olson is a 67 y.o. female. Pharmacist assessment of renally cleared medications. Recent Labs 11/18/222029 BUN 93* Recent Labs 11/18/222029 CREATININE 4.23* Estimated Creatinine Clearance: 12 mL/min (A) (based on SCr of 4.23 mg/dL (H)). Estimated CrCl using Charlotte Body Weight: 10.5 mL/min (based on IBW 52 kg) Height: Ht Readings from Last 1 Encounters: 11/18/22 5' 3 (1.6 m) Weight: Wt Readings from Last 1 Encounters: 11/18/22 167 lb 6.4 oz (75.9 kg) The following medication dose has been adjusted based upon renal function per P&T Guidelines: Trospium 20 mg twice daily changed to 20 mg once daily. Tamiko Mendez [facility] 11/18/2022 11:43 PM Retail Assistant at bedside to complete admission assessment, navigator and vital signs. Pt arrived to floor via ER bed. Pt transfered with assistance. Shift assessment, vital signs and addmission navigator complete, see flow sheet for details. Pt stated pain level is 0/10. Pt denies any other needs at this time. Will continue to monitor. documented in this encounter [facility] [employer] Phone: 11-25-2022 Hospital Discharge instructions Javy Walker RN - 11/25/2022 1:14 PM EDT Continuity of Care Form Patient Name: Angella Olson : 1955 Admit date: 11/18/2022 Discharge date: 11/25/2022 Code Status Order: Full Code Advance Directives: Admitting Physician: Libby Crespo MD PCP: CELIA Garcia CNP Discharging Nurse: Javy Walker Discharging Hospital Unit/Room#: 0316/0316-01 Discharging Unit Phone Number: [phone] Emergency Contact: Extended Emergency Contact Information Primary Emergency Contact: Keny Peterson Address: [address] [place] [address] of [facility] Mobile Relation: Child Director Drug needed? No Secondary Emergency Contact: Tamanna Strong Mobile Relation: [id number] Preferred language: Moroccan Director Drug needed? No Past Surgical History: Past Surgical History: Procedure Laterality Date ABDOMEN SURGERY Removal of scar tissue per Laparoscopy procedure. BACK SURGERY Donor cervical fusion. SECTION [address]Eric Sandoval-gastro in [place], [place]-unsure when ESOPHAGOGASTRODUODENOSCOPY 10/2021 [facility] ESOPHAGOGASTRODUODENOSCOPY 06/2021 [facility] EYE SURGERY Retinal surgery. KYPHOSIS SURGERY 10/06/2022 [facility] SURGERY Left 12/2019 Left middle finger. OTHER SURGICAL HISTORY Removal of mass from left mid arm. OTHER SURGICAL HISTORY OTHER SURGICAL HISTORY Right NERVE RADIOFREQUENCY ABLATION-L3,4,5 (Right: Back)- Dr. Watts PAIN MANAGEMENT PROCEDURE Bilateral 11/26/2021 LUMBAR FACET - L4-5 L5-SI performed by Darell Watts MD at [facility] OR PAIN MANAGEMENT PROCEDURE Bilateral 01/21/2022 LUMBAR FACET - L4-5, L5-S1 performed by Darell Watts MD at [facility] OR PAIN MANAGEMENT PROCEDURE Right 03/18/2022 NERVE RADIOFREQUENCY ABLATION-L3,4,5 performed by Darell Watts MD at [facility] OR PAIN MANAGEMENT PROCEDURE N/A 06/10/2022 EPIDURAL STEROID INJECTION- L5-SI, RIGHT OF MIDLINE performed by Darell Watts MD at [facility] OR SPINE SURGERY N/A 10/06/2022 KYPHOPLASTY - L3 performed by Sosa Rodriguez DO at [facility] OR UPPER GASTROINTESTINAL ENDOSCOPY [facility] unsure when Immunization History: Immunization History Administered Date(s) Administered COVID-19, J&J, (age 18y+), IM, 0.5 mL 10/23/2020, 11/23/2020 COVID-19, PFIZER Bivalent BOOSTER, DO NOT Dilute, (age 12y+), IM, 30 mcg/0.3 mL 05/11/2022 COVID-19, PFIZER PURPLE top, DILUTE for use, (age 12 y+), 30mcg/0.3mL 07/15/2021 Influenza, FLUAD, (age 65 y+), Adjuvanted, 0.5mL 05/11/2022 Influenza, FLUARIX, FLULAVAL, FLUZONE (age 6 mo+) AND AFLURIA, (age 3 y+), PF, 0.5mL 05/30/2019 Influenza, High Dose (Fluzone 65 yrs and older) 05/17/2020 Pneumococcal, PPSV23, PNEUMOVAX 23, (age 2y+), SC/IM, 0.5mL 10/18/2019 TDaP, ADACEL (age 10y-64y), BOOSTRIX (age 10y+), IM, 0.5mL 11/23/2019 Active Problems: Patient Active Problem List Diagnosis Code Chronic back pain M54.9, G89.29 Stage 3 chronic kidney disease (HCC) N18.30 Essential hypertension I10 Bipolar disorder (HCC) F31.9 Type 2 diabetes mellitus, with long-term current use of insulin (HCC) E11.9, Z79.4 Obesity (BMI 30-39.9) E66.9 Iron deficiency anemia D50.9 Fall at home, initial encounter W19.XXXA, Y92.009 Frequency of urination R35.0 Mixed incontinence N39.46 Nocturia R35.1 Positive FIT (fecal immunochemical test) R19.5 Dyslipidemia E78.5 Gastroesophageal reflux disease K21.9 Cirrhosis of liver without ascites (HCC) K74.60 COPD (chronic obstructive pulmonary disease) (HCC) J44.9 Sepsis secondary to UTI (HCC) A41.9, N39.0 Moderate malnutrition (HCC) E44.0 Complicated UTI (urinary tract infection) N39.0 Hepatic encephalopathy (HCC) K76.82 SUAD (acute kidney injury) (HCC) prerenal N17.9 Closed compression fracture of third lumbar vertebra (HCC) S32.030A Recurrent major depressive disorder, in partial remission (HCC) F33.41 Non-alcoholic fatty liver disease K76.0 Osteoporotic compression fracture of spine (HCC) M80.88XA Acute kidney injury superimposed on CKD (HCC) N17.9, N18.9 Isolation/Infection: Isolation No Isolation Patient Infection Status Infection Onset Added Last Indicated Last Indicated By Review Planned Expiration Resolved Resolved By None active Resolved COVID-19 (Rule Out) 09/06/22 09/06/22 09/06/22 COVID-19, Rapid (Ordered) 09/06/22 Rule-Out Test Resulted COVID-19 (Rule Out) 09/26/22 09/26/22 09/26/22 COVID-19, Rapid (Ordered) 05/12/22 Rule-Out Test Resulted COVID-19 (Rule Out) 08/14/21 08/14/21 08/14/21 COVID-19, Rapid (Ordered) 08/14/21 Rule-Out Test Resulted COVID-19 (Rule Out) 08/08/21 08/08/21 08/08/21 COVID-19, Rapid (Ordered) 08/08/21 Rule-Out Test Resulted COVID-19 (Rule Out) 06/15/21 06/15/21 06/15/21 SARS-CoV-2 NAAT (Rapid) (Ordered) 06/15/21 Rule-Out Test Resulted COVID-19 (Rule Out) 02/07/21 02/07/21 02/07/21 COVID-19, Rapid (Ordered) 02/07/21 Rule-Out Test Resulted COVID-19 (Rule Out) 04/30/20 04/30/20 04/30/20 COVID-19, PCR (Ordered) 04/30/20 Rule-Out Test Resulted Nurse Assessment: Last Vital Signs: BP (!) 114/58 Pulse 73 Temp 98.5 F (36.9 C) (Temporal) Resp 16 Ht 5' 3 (1.6 m) Wt 187 lb 1.6 oz (84.9 kg) LMP (LMP Unknown) SpO2 90% BMI 33.14 kg/m Last documented pain score (0-10 scale): Pain Level: 0 Last Weight: Wt Readings from Last 1 Encounters: 11/25/22 187 lb 1.6 oz (84.9 kg) Mental Status: oriented, alert, coherent, and logical IV Access: - None Nursing Mobility/ADLs: Walking Assisted Transfer Assisted Bathing Assisted Dressing Assisted Toileting Assisted Feeding Assisted Fountain Worker Assisted Med Delivery whole Wound Care Documentation and Therapy: Incision 10/06/22 Back Lower;Medial (Active) Number of days: 50 Elimination: Continence: Bowel: Yes Bladder: No Urinary Catheter: None Colostomy/Ileostomy/Ileal Conduit: No Date of Last BM: 11/25/2022 Intake/Output Summary (Last 24 hours) at 11/25/2022 1314 Last data filed at 11/25/2022 0926 Gross per 24 hour Intake 700 ml Output 350 ml Net 350 ml I/O last 3 completed shifts: In: 900 [P.O.:900] Out: 1100 [Urine:1100] Safety Concerns: At Risk for Falls Impairments/Disabilities: Hearing Nutrition Therapy: Current Nutrition Therapy: - Oral Diet: Carb Control 4 carbs/meal (1800kcals/day) Routes of Feeding: Oral Liquids: Thin Liquids Daily Fluid Restriction: no Last Modified Barium Swallow with Video (Video Swallowing Test): not done Treatments at the Time of Hospital Discharge: Respiratory Treatments: dulera inhaler Oxygen Therapy: is not on home oxygen therapy. Ventilator: - No ventilator support Rehab Therapies: Weight Bearing Status/Restrictions: No weight bearing restrictions Other Medical Equipment (for information only, NOT a DME order): walker Other Treatments: na Patient's personal belongings (please select all that are sent with patient): Hearing Aides bilateral, Dentures upper and lower RN SIGNATURE: CASE MANAGEMENT/SOCIAL WORK SECTION Inpatient Status Date: 11/18/22 Readmission Risk Assessment Score: Readmission Risk Risk of Unplanned Readmission: 41 Discharging to Facility/ Agency Name: [facility] Address:[address] [place] [address] Dialysis Facility (if applicable) Name: Address: Dialysis Schedule: Phone: Fax: Stripper Color/Legal Recovery Specialist signature: PHYSICIAN SECTION Prognosis: Fair Condition at Discharge: Stable Rehab Potential (if transferring to Rehab): Fair Recommended Labs or Other Treatments After Discharge: cbc w/ diff, bmp, mg on 11/25 Physician Certification: I certify the above information and transfer of Angella Olson is necessary for the continuing treatment of the diagnosis listed and that she requires [facility] for less 30 days. Update Admission H&P: No change in H&P PHYSICIAN SIGNATURE: documented in this encounter [facility]: 10-17-2022 History of Present illness Narrative Comprehensive Nutrition Assessment Type and Reason for Visit: Reassess Nutrition Recommendations/Plan: Continue with current diet Monitor weights, labs, meds, and plan of care. Malnutrition Assessment: Malnutrition Status: No malnutrition (10/10/22 1149) Context: Acute Illness Findings of the 6 clinical characteristics of malnutrition: Energy Intake: No significant decrease in energy intake Weight Loss: No significant weight loss Body Fat Loss: No significant body fat loss Muscle Mass Loss: No significant muscle mass loss Fluid Accumulation: No significant fluid accumulation Flaking Roll Operator Strength: Not Performed Nutrition Assessment: Pt seen for reassessment. Pt reports appetite to be improving and almost back to normal. PO intakes ~50% per pt. LBM: today per pt. Pt reports most likely going home today, and excited to eat food outside of hospital. Labs reviewed: Glu: 134. Meds reviewed: Lantus Nutrition Related Findings: Labs/meds reviewed Wound Type: Surgical Incision Current Nutrition Intake & Therapies: Average Meal Intake: 76-100% Average Supplements Intake: None Ordered ADULT DIET; Regular; 4 carb choices (60 gm/meal) Anthropometric Measures: Height: 5' 3 (160 cm) Charlotte Body Weight (IBW): 115 lbs (52 kg) Current Body Weight: 177 lb 4 oz (80.4 kg), 154.1 % IBW. Weight Source: Not Specified Current BMI (kg/m2): 31.4 Weight Adjustment For: No Adjustment BMI Categories: Obese Class 1 (BMI 30.0-34.9) Estimated Daily Nutrient Needs: Energy Requirements Based On: Kcal/kg Weight Used for Energy Requirements: Current Energy (kcal/day): 6068-4685 kcal/day Weight Used for Protein Requirements: [place] Protein (g/day): 80-90 gm/day Method Used for Fluid Requirements: 1 ml/kcal Fluid (ml/day): 1500 mL or per MD Nutrition Diagnosis: No nutrition diagnosis at this time related to as evidenced by Nutrition Interventions: Food and/or Nutrient Delivery: Continue Current Diet Nutrition Education/Counseling: No recommendation at this time Coordination of Nutrition Care: Continue to monitor while inpatient Plan of Care discussed with: pt Goals: Previous Goal Met: Progressing toward Goal(s) Goals: Meet at least 75% of estimated needs, prior to discharge Nutrition Monitoring and Evaluation: Behavioral-Environmental Outcomes: None Identified Food/Nutrient Intake Outcomes: Food and Nutrient Intake Physical Signs/Symptoms Outcomes: Biochemical Data, GI Status, Skin, Weight Discharge Planning: Continue current diet Brigitte Elycell Contact: [phone] Angella Olson was evaluated today and a DME order was entered for a wheeled walker because she requires this to successfully complete daily living tasks of ambulating. A wheeled walker is necessary due to the patient's unsteady gait, upper body weakness, and inability to seed cone picker an ambulation device; and she can ambulate only by pushing a walker instead of a lesser assistive device such as a cane, crutch, or standard walker. The need for this equipment was discussed with the patient and she understands and is in agreement. Associated attestation - Fer Gandhi MD - 10/17/2022 3:32 PM EST I personally evaluated the patient and directed the medical decision making with Resident/ISAAC after the physical/radiologic exam and laboratory values were reviewed and confirmed. Agree. Needs DME. S. Ashish Gandhi MD Acute Care Surgery Physical Therapy Facility/Department: [address] ORTHO/MED SURG Physical Therapy Treatment Note Name: Angella Olson : 1955 Date of Service: 10/17/2022 Discharge Recommendations: Patient would benefit from continued therapy after discharge Patient Diagnosis(es): The primary encounter diagnosis was Closed compression fracture of L3 vertebra, initial encounter ([facility]). A diagnosis of Fall from standing, initial encounter was also pertinent to this visit. 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 Past Surgical History: has a past surgical history that includes back surgery; Eye surgery; Abdomen surgery; section (1984); other surgical history; Colonoscopy; Upper gastrointestinal endoscopy; Mohs surgery (Left, 12/2019); Pain management procedure (Bilateral, 11/26/2021); Pain management procedure (Bilateral, 01/21/2022); other surgical history; other surgical history (Right); Pain management procedure (Right, 03/18/2022); Pain management procedure (N/A, 06/10/2022); Esophagogastroduodenoscopy (10/2021); Esophagogastroduodenoscopy (06/2021); Kyphosis surgery (10/06/2022); and Spine surgery (N/A, 10/06/2022). Assessment The pt ambulated 75 ft with a RW x CGA. SHe continues to fatigue easily with activity but ambulated with an improved gait quality. There was less leaning to the R side during ambulation. She could benefit from a continuation of PT for gait and strengthening following her DC Activity Tolerance Activity Tolerance: Patient limited by pain;Patient limited by fatigue;Patient limited by endurance Plan Physcial Therapy Plan General Plan: 6-7 times per week Current Treatment Recommendations: Strengthening, ROM, Balance training, Functional mobility training, Transfer training, ADL/Self-care training, Endurance training, Gait training, Stair training, Neuromuscular re-education, Cognitive/Perceptual training, Home exercise program, Safety education & training, Patient/Caregiver education & training, Equipment evaluation, education, & procurement, Therapeutic activities Safety Devices Type of Devices: Gait belt, Nurse notified, Patient at risk for falls, All fall risk precautions in place, Call light within reach, Left in chair, Chair alarm in place Restraints Restraints Initially in Place: No Restrictions Restrictions/Precautions Restrictions/Precautions: General Precautions Required Braces or Orthoses?: No Position Activity Restriction Spinal Precautions: No lifting greater than 5 pounds. Limit bending and twisting at the waist; Perfect Served Demetrio Thekeri 10/07 can the strict bed rest and spine neutrality order be d/c'd to work with OT and PT? , received response yes & please ambulate patient Other position/activity restrictions: L3 kypho on 10/06;per perfect serve 10/07 pt okay to ambulate and not maintain spinal neutrality ~ demetrio kline Subjective Pain: Pt c/o 02/23 back pain Social/Functional History Social/Functional History Lives With: Alone Type of Home: Apartment Home Layout: One level Home Access: Level entry Bathroom Shower/Tub: Walk-in shower Bathroom Toilet: Handicap height Bathroom Equipment: Shower chair, Grab bars in shower, Grab bars around toilet Bathroom Accessibility: Accessible Home Equipment: Cane, Wheelchair-manual, Walker, standard, Rollator Receives Help From: (shearer helper for laundry, and dishes) ADL Assistance: Independent Homemaking Responsibilities: No Ambulation Assistance: Independent Transfer Assistance: Independent Active Cro: No Patient's Cro Info: medical transport Mode of Transportation: Cab 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 Leisure & Hobbies: Research Additional Comments: son can provide some, no one able to provide 24 hr support Vision/Hearing Cognition Orientation Overall Orientation Status: Impaired Orientation Level: Oriented to person;Oriented to place;Disoriented to time;Oriented to situation Cognition Overall Cognitive Status: Exceptions Arousal/Alertness: Appropriate responses to stimuli Following Commands: Follows multistep commands with repitition Attention Span: Attends with cues to redirect Memory: Appears intact Safety Judgement: Decreased awareness of need for safety Insights: Decreased awareness of deficits Initiation: Requires cues for some Sequencing: Requires cues for some Objective Heart Rate: 60 BP: (!) 115/56 MAP (Calculated): 76 Resp: 18 SpO2: 91 % O2 Device: None (Room air) Amb 75 ft x 2 with a RW x CGA A/AROM Exercises: B LE LAQ's ankle pumps, hip flx x 10 OutComes Score AM-PAC Score AM-PAC Inpatient Mobility Raw Score : 19 (10/14/221517) AM-PAC Inpatient T-Scale Score : 45.44 (10/14/221517) Mobility Inpatient CMS 0-100% Score: 41.77 (10/14/221517) Mobility Inpatient CMS G-Code Modifier : CK (10/14/221517) Tinneti Score Goals Short Term Goals Time Frame for Short Term Goals: 14 visits Short Term Goal 1: pt will ambulate 200' with RW and CGA Short Term Goal 2: pt will be IND in bed to chair transfers Short Term Goal 3: pt will be IND in bed mobility while maintaing spinal precautions 100% of time Short Term Goal 4: pt will demonstrate dynamic balance to at least good Education Patient Education Education Given To: Patient Education Provided: Role of Therapy;Plan of Care Education Provided Comments: correct/safe functional mobility technique Education Method: Verbal;Demonstration Barriers to Learning: None Education Outcome: Verbalized understanding;Continued education needed;Demonstrated understanding Therapy Time Individual Concurrent Group Co-treatment Time In 939 Time Out 1005 Minutes 25 Fer Stone PT Images from the original note were not included. PROGRESS NOTE PATIENT NAME: Angella Olson DATE: 10/17/2022 SURGEON: Richard PRIMARY CARE PHYSICIAN: CELIA Garcia CNP HD: # 13 ASSESSMENT Patient Active Problem List Diagnosis Chronic back pain Stage 3 chronic kidney disease (HCC) Essential hypertension Bipolar disorder (HCC) Type 2 diabetes mellitus, with long-term current use of insulin (HCC) Obesity (BMI 30-39.9) Iron deficiency anemia Fall at home, initial encounter Frequency of urination Mixed incontinence Nocturia Positive FIT (fecal immunochemical test) Dyslipidemia Gastroesophageal reflux disease Cirrhosis of liver without ascites (HCC) COPD (chronic obstructive pulmonary disease) (HCC) Sepsis secondary to UTI (HCC) Moderate malnutrition (HCC) Hepatic encephalopathy SUAD (acute kidney injury) (HCC) prerenal Closed compression fracture of third lumbar vertebra (HCC) Recurrent major depressive disorder, in partial remission (HCC) Non-alcoholic fatty liver disease MEDICAL DECISION MAKING AND PLAN L3 compression fracture after fall from standing height -S/p L3 kyphoplasty with neurosurgery on 10/06 -Pain control: Gabapentin, Tylenol prn, robaxin prn -PT/OT: ambulating 75 ft with a rolling walking. Needs gait strengthening History of type 2 diabetes on insulin -sliding scale insulin and BID Lantus 15U, home metformin -Carb controlled diet Hx cirrhosis -Geriatrics/Internal medicine on, continue Rifaximin and Lactulose -Pt intermittently refusing lactulose Hyponatremia -Fluid restrict to 1500 cc daily Pruritis -Benadryl if needed Dispo planning to [facility] today SUBJECTIVE Angella Olson was evaluated at bedside. No acute events overnight, afebrile, hemodynamically stable. Pain controlled. Eager for discharge. OBJECTIVE VITALS: Temp: Temp: 98.3 F (36.8 C)Temp Av F (36.7 C) Min: 97.6 F (36.4 C) Max: 98.3 F (36.8 C) BP Systolic (24hrs), Av , Min:114 , Max:122 Diastolic (24hrs), Av, Min:46, Max:65 Pulse Pulse Av.3 Min: 63 Max: 66 Resp Resp Av Min: 18 Max: 18 Pulse ox SpO2 Av % Min: 94 % Max: 98 % GENERAL: awake, alert, no acute distress NEURO: AAO x3 HEENT: Normocephalic, atraumatic : Purewick in place LUNGS: No respiratory distress HEART: Normal rate and regular rhythm ABDOMEN: Soft, nontender, nondistended, old ecchymosis at subcu injection sites EXTREMITY: No lower extremity edema I/O last 3 completed shifts: In: 850 [P.O.:850] Out: 500 [Urine:500] Daksha Michaels MD General Surgery PGY5 Associated attestation - Fer Gandhi MD - 10/17/2022 4:42 PM EST I personally evaluated the patient and directed the medical decision making with Resident/ISAAC after the physical/radiologic exam and laboratory values were reviewed and confirmed. D/c home today S. Ashish Gandhi MD Acute Care Surgery Physical Therapy Facility/Department: [address] ORTHO/MED SURG Physical Therapy Treatment Note Name: Angella Olson : 1955 Date of Service: 10/16/2022 Discharge Recommendations: Patient would benefit from continued therapy after discharge PT Equipment Recommendations Equipment Needed: No Patient Diagnosis(es): The primary encounter diagnosis was Closed compression fracture of L3 vertebra, initial encounter ([facility]). A diagnosis of Fall from standing, initial encounter was also pertinent to this visit. 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 Past Surgical History: has a past surgical history that includes back surgery; Eye surgery; Abdomen surgery; section (1984); other surgical history; Colonoscopy; Upper gastrointestinal endoscopy; Mohs surgery (Left, 12/2019); Pain management procedure (Bilateral, 11/26/2021); Pain management procedure (Bilateral, 01/21/2022); other surgical history; other surgical history (Right); Pain management procedure (Right, 03/18/2022); Pain management procedure (N/A, 06/10/2022); Esophagogastroduodenoscopy (10/2021); Esophagogastroduodenoscopy (06/2021); Kyphosis surgery (10/06/2022); and Spine surgery (N/A, 10/06/2022). Assessment The pt ambulated 75 ft with a RW x CGA. She continues to lean to the R side during ambulation. She also needs verbal cuing for the walker placement. She could benefit from a continuation of PT for gait and strengthening following her DC Activity Tolerance Activity Tolerance: Patient tolerated treatment well;Patient limited by pain Plan Physcial Therapy Plan General Plan: 6-7 times per week Current Treatment Recommendations: Strengthening, ROM, Balance training, Functional mobility training, Transfer training, ADL/Self-care training, Endurance training, Gait training, Stair training, Neuromuscular re-education, Cognitive/Perceptual training, Home exercise program, Safety education & training, Patient/Caregiver education & training, Equipment evaluation, education, & procurement, Therapeutic activities Safety Devices Type of Devices: Gait belt, Nurse notified, Patient at risk for falls, All fall risk precautions in place, Call light within reach, Left in chair, Chair alarm in place Restraints Restraints Initially in Place: No Restrictions Restrictions/Precautions Restrictions/Precautions: General Precautions Required Braces or Orthoses?: No Position Activity Restriction Spinal Precautions: No lifting greater than 5 pounds. Limit bending and twisting at the waist; Kacy Friedman 10/07 can the strict bed rest and spine neutrality order be d/c'd to work with OT and PT? , received response yes & please ambulate patient Other position/activity restrictions: L3 kypho on 10/06;per perfect serve 10/07 pt okay to ambulate and not maintain spinal neutrality ~ demetrio kline Subjective Pain: Pt c/o 10/24 back pain Social/Functional History Social/Functional History Lives With: Alone Type of Home: Apartment Home Layout: One level Home Access: Level entry Bathroom Shower/Tub: Walk-in shower Bathroom Toilet: Handicap height Bathroom Equipment: Shower chair, Grab bars in shower, Grab bars around toilet Bathroom Accessibility: Accessible Home Equipment: Cane, Wheelchair-manual, Walker, standard, Rollator Receives Help From: (shearer helper for laundry, and dishes) ADL Assistance: Independent Homemaking Responsibilities: No Ambulation Assistance: Independent Transfer Assistance: Independent Active Cro: No Patient's Cro Info: medical transport Mode of Transportation: Cab 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 Leisure & Hobbies: Research Additional Comments: son can provide some, no one able to provide 24 hr support Vision/Hearing Cognition Orientation Overall Orientation Status: Impaired Orientation Level: Oriented to person;Oriented to place;Disoriented to time;Disoriented to situation Cognition Overall Cognitive Status: Exceptions Arousal/Alertness: Appropriate responses to stimuli Following Commands: Follows multistep commands with repitition Attention Span: Attends with cues to redirect Memory: Appears intact Safety Judgement: Decreased awareness of need for safety Insights: Decreased awareness of deficits Initiation: Requires cues for some Sequencing: Requires cues for some Cognition Comment: Pt mildly impulsive with getting up prior to waiting for assistance Objective Heart Rate: 63 Heart Rate Source: Monitor BP: 110/64 BP Location: Left upper arm BP Method: Automatic Patient Position: Semi fowlers MAP (Calculated): 79 Resp: 18 O2 Device: Nasal cannula Amb 75 ft x 2 with a RW x CGA Pt needing verbal cues for walker placement at times A/AROM Exercises: B LE LAQ's ankle pumps, hip flx x 10 OutComes Score AM-PAC Score AM-PAC Inpatient Mobility Raw Score : 19 (10/14/22 1518) AM-PAC Inpatient T-Scale Score : 45.44 (10/14/22 1518) Mobility Inpatient CMS 0-100% Score: 41.77 (10/14/221517) Mobility Inpatient CMS G-Code Modifier : CK (10/14/221517) Tinneti Score Goals Short Term Goals Time Frame for Short Term Goals: 14 visits Short Term Goal 1: pt will ambulate 200' with RW and CGA Short Term Goal 2: pt will be IND in bed to chair transfers Short Term Goal 3: pt will be IND in bed mobility while maintaing spinal precautions 100% of time Short Term Goal 4: pt will demonstrate dynamic balance to at least good Education Patient Education Education Given To: Patient Education Provided: Role of Therapy;Plan of Care Education Provided Comments: correct/safe functional mobility technique Education Outcome: Verbalized understanding;Continued education needed;Demonstrated understanding Therapy Time Individual Concurrent Group Co-treatment Time In 1345 Time Out 1408 Minutes 23 Fer Stone, PT Pt. Refused Lactulose and Glycolax. Educated on benefits and risks of medications. Pt still refusing Images from the original note were not included. PROGRESS NOTE PATIENT NAME: Angella Olson DATE: 10/16/2022 SURGEON: Richard PRIMARY CARE PHYSICIAN: Justyna Valderrama APRN - MABEL HD: # 12 ASSESSMENT Patient Active Problem List Diagnosis Chronic back pain Stage 3 chronic kidney disease (HCC) Essential hypertension Bipolar disorder (HCC) Type 2 diabetes mellitus, with long-term current use of insulin (HCC) Obesity (BMI 30-39.9) Iron deficiency anemia Fall at home, initial encounter Frequency of urination Mixed incontinence Nocturia Positive FIT (fecal immunochemical test) Dyslipidemia Gastroesophageal reflux disease Cirrhosis of liver without ascites (HCC) COPD (chronic obstructive pulmonary disease) (HCC) Sepsis secondary to UTI (HCC) Moderate malnutrition (HCC) Hepatic encephalopathy SUAD (acute kidney injury) (HCC) prerenal Closed compression fracture of third lumbar vertebra (HCC) Recurrent major depressive disorder, in partial remission (HCC) Non-alcoholic fatty liver disease MEDICAL DECISION MAKING AND PLAN L3 compression fracture after fall from standing height -S/p L3 kyphoplasty with neurosurgery on 2/20 -Pain control: Gabapentin, Tylenol prn, robaxin prn -PT/OT: ambulating 50 ft with a rolling walking. Needs gait strengthening -PMR eval: recommending subacute rehab- case management working on this History of type 2 diabetes on insulin -sliding scale insulin and BID Lantus 15U, home metformin -Carb controlled diet -Glucose controlled 10 9-178 Requiring supplemental oxygen -Desats when weaned off -CXR negative on 10/08 -2L NC currently (home dose) Hx cirrhosis -Geriatrics/Internal medicine on, continue Rifaximin and Lactulose -Pt intermittently refusing lactulose Hyponatremia -Sodium 131 today and -Fluid restrict to 1500 cc daily Itchiness -Benadryl if needed -Hepatic function panel reviewed -Itchiness currently resolved Dispo planning, SNF referrals given, patient rejected from 2 facilities so far. SUBJECTIVE Angella Olson was evaluated at bedside. No acute events overnight, afebrile, hemodynamically stable, satting greater than 95% on 2 L nasal cannula. Patient is awake and alert this morning. AAOx3. Pain is currently controlled. Tolerating diet, voiding, passing gas. Ambulating. Itchiness improved. OBJECTIVE VITALS: Temp: Temp: 97.7 F (36.5 C)Temp Av.3 F (36.3 C) Min: 96.8 F (36 C) Max: 97.7 F (36.5 C) BP Systolic (24hrs), Av , Min:110 , Max:122 Diastolic (24hrs), Av, Min:53, Max:66 Pulse Pulse Av.8 Min: 57 Max: 64 Resp Resp Av.8 Min: 17 Max: 18 Pulse ox SpO2 Av.8 % Min: 98 % Max: 99 % GENERAL: awake, alert, no acute distress NEURO: AAO x3 HEENT: Normocephalic, atraumatic : Purewick in place LUNGS: No respiratory distress HEART: Normal rate and regular rhythm ABDOMEN: Soft, nontender, nondistended EXTREMITY: No lower extremity edema I/O last 3 completed shifts: In: 600 [P.O.:600] Out: 1000 [Urine:1000] Gissel Low DO PGY-2 10/14/22 7:51 AM Attending Note I have reviewed the above [facility] resident progress note and I either performed the king elements of the medical history and physical exam or was present when the resident performed them. I have discussed the findings, established the care plan and recommendations with resident, [facility] nurse. The following confirms and/or amends the IMPRESSION, MEDICAL DECISION MAKING and PLAN from above. ASSESSMENT Patient Active Problem List Diagnosis Chronic back pain Stage 3 chronic kidney disease (HCC) Essential hypertension Bipolar disorder (HCC) Type 2 diabetes mellitus, with long-term current use of insulin (HCC) Obesity (BMI 30-39.9) Iron deficiency anemia Fall at home, initial encounter Frequency of urination Mixed incontinence Nocturia Positive FIT (fecal immunochemical test) Dyslipidemia Gastroesophageal reflux disease Cirrhosis of liver without ascites (HCC) COPD (chronic obstructive pulmonary disease) (HCC) Sepsis secondary to UTI (HCC) Moderate malnutrition (HCC) Hepatic encephalopathy SUAD (acute kidney injury) (HCC) prerenal Closed compression fracture of third lumbar vertebra (HCC) Recurrent major depressive disorder, in partial remission (HCC) Non-alcoholic fatty liver disease MEDICAL DECISION MAKING AND PLAN Fluid restriction for hyponatremia of 131. Discharge planning may be to home if there are no accepting SNFs Pasquale Bynum MD 10/16/2022 11:34 AM Images from the original note were not included. PROGRESS NOTE PATIENT NAME: Angella Olson DATE: 10/15/2022 SURGEON: Richard PRIMARY CARE PHYSICIAN: CELIA Garcia CNP HD: # 11 ASSESSMENT Patient Active Problem List Diagnosis Chronic back pain Stage 3 chronic kidney disease (HCC) Essential hypertension Bipolar disorder (HCC) Type 2 diabetes mellitus, with long-term current use of insulin (HCC) Obesity (BMI 30-39.9) Iron deficiency anemia Fall at home, initial encounter Frequency of urination Mixed incontinence Nocturia Positive FIT (fecal immunochemical test) Dyslipidemia Gastroesophageal reflux disease Cirrhosis of liver without ascites (HCC) COPD (chronic obstructive pulmonary disease) (HCC) Sepsis secondary to UTI (HCC) Moderate malnutrition (HCC) Hepatic encephalopathy SUAD (acute kidney injury) (HCC) prerenal Closed compression fracture of third lumbar vertebra (HCC) Recurrent major depressive disorder, in partial remission (HCC) Non-alcoholic fatty liver disease MEDICAL DECISION MAKING AND PLAN L3 compression fracture after fall from standing height -S/p L3 kyphoplasty with neurosurgery on 10/06 -Pain control: Gabapentin, Tylenol prn, robaxin prn, jorge prn -PT/OT: ambulating 50 ft with a rolling walking. Needs gait strengthening -PMR eval: recommending subacute rehab- case management working on this History of type 2 diabetes on insulin -sliding scale insulin and BID Lantus 15U -Carb controlled diet -Glucose 109, 258 Requiring supplemental oxygen -Desats when weaned off -CXR negative on 10/08 -2L NC currently (home dose) Hx cirrhosis -Geriatrics/Internal medicine on, continue Rifaximin and Lactulose -Pt refusing lactulose, says she knows her own body and will take it when she needs it. Itchiness -Patient complaining of itchiness. Benadryl give over night. -Discussed with pharmacy any medications that are ordered that could be causing itchiness. Low suspicion of medication induced itchiness -Pt states improvement after shower but itchiness is returning. She has history of sensitive skin to any soaps or lotions. -F/u LFTs however pt without jaundice - itchiness improved today with low dose benedryl prn Dispo planning, SNF referrals given, patient rejected from 2 facilities so far. SUBJECTIVE Angella Mitchellnimco was evaluated at bedside. Patient is awake and alert this morning. AAOx3. Pain is currently controlled. Tolerating diet, voiding, passing gas. Ambulating. Itchiness improved. OBJECTIVE VITALS: Temp: Temp: 96.8 F (36 C)Temp Av.6 F (36.4 C) Min: 96.8 F (36 C) Max: 98 F (36.7 C) BP Systolic (24hrs), Av , Min:98 , Max:122 Diastolic (24hrs), Av, Min:53, Max:67 Pulse Pulse Av.8 Min: 57 Max: 63 Resp Resp Av.4 Min: 16 Max: 18 Pulse ox SpO2 Av.7 % Min: 93 % Max: 99 % GENERAL: awake, alert, no acute distress NEURO: AAO x3 HEENT: Normocephalic, atraumatic : Purewick in place LUNGS: No respiratory distress HEART: Normal rate and regular rhythm ABDOMEN: Soft, nontender, nondistended, 4-5 white flat plaques about 0.5 cm above the umbilicus EXTREMITY: No lower extremity edema I/O last 3 completed shifts: In: 900 [P.O.:900] Out: 950 [Urine:950] Gissel Low DO PGY-2 10/14/22 11:10 AM Attending Note I have reviewed the above [facility] resident progress note and I either performed the king elements of the medical history and physical exam or was present when the resident performed them. I have discussed the findings, established the care plan and recommendations with residents. The following confirms and/or amends the IMPRESSION, MEDICAL DECISION MAKING and PLAN from above. ASSESSMENT Patient Active Problem List Diagnosis Chronic back pain Stage 3 chronic kidney disease (HCC) Essential hypertension Bipolar disorder (HCC) Type 2 diabetes mellitus, with long-term current use of insulin (HCC) Obesity (BMI 30-39.9) Iron deficiency anemia Fall at home, initial encounter Frequency of urination Mixed incontinence Nocturia Positive FIT (fecal immunochemical test) Dyslipidemia Gastroesophageal reflux disease Cirrhosis of liver without ascites (HCC) COPD (chronic obstructive pulmonary disease) (HCC) Sepsis secondary to UTI (HCC) Moderate malnutrition (HCC) Hepatic encephalopathy SUAD (acute kidney injury) (HCC) prerenal Closed compression fracture of third lumbar vertebra (HCC) Recurrent major depressive disorder, in partial remission (HCC) Non-alcoholic fatty liver disease MEDICAL DECISION MAKING AND PLAN Discharge planning Pasquale Bynum MD 10/15/2022 4:54 PM Physical Therapy Facility/Department: [address] ORTHO/MED SURG Daily Treatment Note Name: Angella Olson : 1955 Date of Service: 10/14/2022 Discharge Recommendations: Patient would benefit from continued therapy after discharge Further therapy recommended at discharge.The patient should be able to tolerate at least 3 hours of therapy per day over 5 days or 15 hours over 7 days. This patient may benefit from a Physical Medicine and Rehab consult. PT Equipment Recommendations Equipment Needed: No Patient Diagnosis(es): The primary encounter diagnosis was Closed compression fracture of L3 vertebra, initial encounter (HCC). A diagnosis of Fall from standing, initial encounter was also pertinent to this visit. 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 Past Surgical History: has a past surgical history that includes back surgery; Eye surgery; Abdomen surgery; section (1984); other surgical history; Colonoscopy; Upper gastrointestinal endoscopy; Mohs surgery (Left, 12/2019); Pain management procedure (Bilateral, 11/26/2021); Pain management procedure (Bilateral, 01/21/2022); other surgical history; other surgical history (Right); Pain management procedure (Right, 03/18/2022); Pain management procedure (N/A, 06/10/2022); Esophagogastroduodenoscopy (10/2021); Esophagogastroduodenoscopy (06/2021); Kyphosis surgery (10/06/2022); and Spine surgery (N/A, 10/06/2022). Assessment Body Structures, Functions, Activity Limitations Requiring Skilled Therapeutic Intervention: Decreased functional mobility ;Decreased ROM;Decreased ADL status;Decreased body mechanics;Decreased strength;Decreased cognition;Decreased endurance;Decreased balance;Decreased high-level IADLs;Decreased fine motor control;Decreased coordination Assessment: Pt amb 50 ft x 2 CGA RW with increased time to complete with multiple standing rest periods. Pt requires increased time to complete tasks t/o session. Pt limited by back pain during session but has decreased pain upon exiting. Pt would benefit from continued acute PT to address deficits. Therapy Prognosis: Good Activity Tolerance Activity Tolerance: Patient tolerated treatment well;Patient limited by pain Plan Physcial Therapy Plan General Plan: 6-7 times per week Current Treatment Recommendations: Strengthening, ROM, Balance training, Functional mobility training, Transfer training, ADL/Self-care training, Endurance training, Gait training, Stair training, Neuromuscular re-education, Cognitive/Perceptual training, Home exercise program, Safety education & training, Patient/Caregiver education & training, Equipment evaluation, education, & procurement, Therapeutic activities Safety Devices Type of Devices: Gait belt, Nurse notified, Patient at risk for falls, All fall risk precautions in place, Call light within reach, Bed alarm in place, Left in bed Restraints Restraints Initially in Place: No Restrictions Restrictions/Precautions Restrictions/Precautions: General Precautions Required Braces or Orthoses?: No Position Activity Restriction Spinal Precautions: No lifting greater than 5 pounds. Limit bending and twisting at the waist; Perfect Served Demetrio Friedman 10/07 can the strict bed rest and spine neutrality order be d/c'd to work with OT and PT? , received response yes & please ambulate patient Other position/activity restrictions: L3 kypho on 10/06;per perfect serve 10/07 pt okay to ambulate and not maintain spinal neutrality ~ demetrio kline Subjective General Chart Reviewed: Yes Patient assessed for rehabilitation services?: Yes Response To Previous Treatment: Patient with no complaints from previous session. 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 Pt semifowlers upon arrival. Pt reports 9/10 back pain; RN medicated pt prior to arrival. Pt pleasant and cooperative. Cognition Orientation Overall Orientation Status: Impaired Orientation Level: Oriented to person;Oriented to situation;Oriented to place;Disoriented to time Cognition Overall Cognitive Status: Exceptions Arousal/Alertness: Appropriate responses to stimuli Following Commands: Follows multistep commands with repitition Attention Span: Attends with cues to redirect Memory: Appears intact Safety Judgement: Decreased awareness of need for safety Problem Solving: Decreased awareness of errors;Assistance required to implement solutions;Assistance required to correct errors made;Assistance required to identify errors made;Assistance required to generate solutions Insights: Decreased awareness of deficits Initiation: Requires cues for some Sequencing: Requires cues for some Objective Bed mobility Supine to Sit: Stand by assistance Sit to Supine: Stand by assistance Scooting: Stand by assistance Bed Mobility Comments: Pt completes with log roll technique and increased time and effort with slight HOB elevated. Pt prefers to exit OOB to the Left side Transfers Sit to Stand: Contact guard assistance Stand to Sit: Contact guard assistance Comment: Assessed with RW from bed and toilet with good use of B UEs. Static standing at toilet for hygiene x 3 minutes with SBA. Ambulation Surface: Level tile Device: Rolling Walker Other Apparatus: O2 (2L O2) Assistance: Contact guard assistance Gait Deviations: Slow Kayla;Decreased step length;Decreased step height;Increased ALEX Distance: 50 ft x 2 Comments: Multiple standing rest breaks during bouts and increased time to complete More Ambulation?: Yes Ambulation 2 Surface - 2: level tile Device 2: Rolling Walker Other Apparatus 2: O2 (2L O2) Assistance 2: Contact guard assistance Quality of Gait 2: Same as previous Gait Deviations: Slow Kayla;Increased ALEX;Decreased step length;Decreased step height Distance: 10 ft Comments: increased time to complete Balance Posture: Fair Sitting - Static: Good Sitting - Dynamic: Good;- Standing - Static: Fair Standing - Dynamic: Fair Comments: Standing balance assessed w/ RW Exercise Treatment: Seated LE exercise program: Long Arc Quads, hip abduction/adduction, heel/toe raises, and marches. Reps: x 10 reps at EOB; increased time to complete OutComes Score AM-PAC Score AM-PAC Inpatient Mobility Raw Score : 19 (10/14/221517) AM-PAC Inpatient T-Scale Score : 45.44 (10/14/221517) Mobility Inpatient CMS 0-100% Score: 41.77 (10/14/221517) Mobility Inpatient CMS G-Code Modifier : CK (10/14/221517) Goals Short Term Goals Time Frame for Short Term Goals: 14 visits Short Term Goal 1: pt will ambulate 200' with RW and CGA Short Term Goal 2: pt will be IND in bed to chair transfers Short Term Goal 3: pt will be IND in bed mobility while maintaing spinal precautions 100% of time Short Term Goal 4: pt will demonstrate dynamic balance to at least good Education Patient Education Education Given To: Patient Education Provided: Role of Therapy;Plan of Care Education Provided Comments: correct/safe functional mobility technique Education Method: Verbal;Demonstration Barriers to Learning: None Education Outcome: Verbalized understanding;Continued education needed;Demonstrated understanding Therapy Time Individual Concurrent Group Co-treatment Time In 1427 Time Out 1515 Minutes 48 Timed Code Treatment Minutes: 42 Minutes YESSICA GUILLORY PTA Occupational Therapy Facility/Department: [address] ORTHO/MED SURG Occupational Therapy Daily Treatment Note Name: Angella Olson : 1955 Date of Service: 10/14/2022 Discharge Recommendations: Patient would benefit from continued therapy after discharge Patient Diagnosis(es): The primary encounter diagnosis was Closed compression fracture of L3 vertebra, initial encounter ([facility]). A diagnosis of Fall from standing, initial encounter was also pertinent to this visit. 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 Past Surgical History: has a past surgical history that includes back surgery; Eye surgery; Abdomen surgery; section (1984); other surgical history; Colonoscopy; Upper gastrointestinal endoscopy; Mohs surgery (Left, 12/2019); Pain management procedure (Bilateral, 11/26/2021); Pain management procedure (Bilateral, 01/21/2022); other surgical history; other surgical history (Right); Pain management procedure (Right, 03/18/2022); Pain management procedure (N/A, 06/10/2022); Esophagogastroduodenoscopy (10/2021); Esophagogastroduodenoscopy (06/2021); Kyphosis surgery (10/06/2022); and Spine surgery (N/A, 10/06/2022). Assessment Performance deficits / Impairments: Decreased functional mobility ;Decreased ADL status;Decreased endurance;Decreased high-level IADLs;Decreased balance;Decreased safe awareness;Decreased strength;Decreased cognition;Decreased fine motor control;Decreased coordination Assessment: Pt continues to make progress towards goal this session. Pt cognition fluctating throughout session limits safety and independence Prognosis: Good Activity Tolerance Activity Tolerance: Patient Tolerated treatment well;Patient limited by fatigue;Treatment limited secondary to decreased cognition Plan Occupational Therapy Plan Times Per Week: 3-4x/wk Current Treatment Recommendations: Strengthening, Balance training, Functional mobility training, Endurance training, Safety education & training, Positioning, Patient/Caregiver education & training, Self-Care / ADL, Equipment evaluation, education, & procurement, Home management training Restrictions Restrictions/Precautions Restrictions/Precautions: General Precautions Required Braces or Orthoses?: No Position Activity Restriction Spinal Precautions: No lifting greater than 5 pounds. Limit bending and twisting at the waist; Perfect Served eDmetrio Friedman 10/07 can the strict bed rest and spine neutrality order be d/c'd to work with OT and PT? , received response yes & please ambulate patient Other position/activity restrictions: L3 kypho on 10/06;per perfect serve 10/07 pt okay to ambulate and not maintain spinal neutrality ~ demetrio kline Subjective General Patient assessed for rehabilitation services?: Yes Response to previous treatment: Patient with no complaints from previous session Family / Caregiver Present: No General Comment Comments: RN ok'd patient for OT session. Pt supine in bed upon MARTINEZ arrival. Pt agreeable to session and reports 6/10 pain in the R lower back with patient able to continue session. Positioned for comfort at end of session Objective Safety Devices Type of Devices: Gait belt;Nurse notified;Patient at risk for falls;All fall risk precautions in place;Left in chair;Call light within reach;Chair alarm in place Restraints Restraints Initially in Place: No Balance Sitting: Without support (10 minutes x3 with supervision for safety) Standing: With support (RW SBA>CGA for safety due to mild impulsive movements and stood 2 minutes x3 stands) Transfer Training Transfer Training: Yes Overall Level of Assistance: Stand-by assistance;Contact-guard assistance Interventions: Safety awareness training;Verbal cues (Pt mildly impulsive with movements) Sit to Stand: Stand-by assistance;Contact-guard assistance Stand to Sit: Stand-by assistance Bed to Chair: Stand-by assistance;Contact-guard assistance Toilet Transfer: Stand-by assistance;Contact-guard assistance Gait Overall Level of Assistance: Stand-by assistance;Contact-guard assistance Interventions: Safety awareness training;Verbal cues (RW and cues for safety and scanning area as to not bump into furniture with walker) Distance (ft): (Room distances) Assistive Device: Walker, rolling;Gait belt ADL Grooming: Supervision;Stand by assistance Grooming Skilled Clinical Factors: Pt completed oral and hair care standing at sink and SBA>supervision for standing balance and safety UE Bathing: Stand by assistance LE Bathing: Contact guard assistance;Verbal cueing;Setup;Increased time to complete LE Bathing Skilled Clinical Factors: during stand for all danelle area hygiene UE Dressing: Supervision;Setup UE Dressing Skilled Clinical Factors: don/doff gown and don bathrobe LE Dressing: Contact guard assistance;Setup;Verbal cueing;Increased time to complete LE Dressing Skilled Clinical Factors: brief mgt, slipper socks Toileting: Stand by assistance Toileting Skilled Clinical Factors: all clothing mgt and stood 2 mintues for thorough hygiene Additional Comments: Pt cmpleted all UB tasks while standing at sink and LB at chair except stand to complete danelle hygiene. Pt fatigued and c/o being cold and request to get gown on and finish LB at chair level Bed mobility Supine to Sit: Stand by assistance Sit to Supine: Unable to assess Scooting: Stand by assistance Bed Mobility Comments: Pt completes sup>sit with log roll technique and increased time and effort Cognition Arousal/Alertness: Appropriate responses to stimuli Following Commands: Follows multistep commands with repitition Attention Span: Attends with cues to redirect Safety Judgement: Decreased awareness of need for safety Problem Solving: Decreased awareness of errors;Assistance required to implement solutions;Assistance required to correct errors made;Assistance required to identify errors made;Assistance required to generate solutions Insights: Decreased awareness of deficits Initiation: Requires cues for some Cognition Comment: Pt mildly impulsive with getting up prior to waiting for assistance Orientation Overall Orientation Status: Impaired Orientation Level: Oriented to person;Oriented to situation;Oriented to place;Disoriented to time Education Provided: Role of Therapy;ADL Adaptive Strategies;Precautions;Transfer Training;Equipment Education Provided Comments: safety, body mechanics and back precautions Education Method: Demonstration;Verbal Barriers to Learning: Cognition Education Outcome: Verbalized understanding;Continued education needed;Demonstrated understanding [facility] Score [facility] Inpatient Daily Activity Raw Score: 21 (10/14/22 114) [facility] T-Scale Score : 44.27 (10/14/221145) ADL Inpatient CMS 0-100% Score: 32.79 (10/14/22 114) ADL Inpatient CMS G-Code Modifier : CJ (10/14/221145) Goals Short Term Goals Time Frame for Short Term Goals: Patient will, by discharge Short Term Goal 1: demo UB ADLs independently Short Term Goal 2: demo LB ADLs at Mod I using AE PRN Short Term Goal 3: demo 100% adherence to bending and twisting precautions during functional tasks with 0 VCs Short Term Goal 4: demo functional transfers/mobility using LRD at Supervision to engage in ADLs safely Short Term Goal 5: demo 10+ min of dynamic standing tolerance at Supervision to engage in ADL/IADL tasks safely Short Term Goal 6: demo proper placement of RW during functional tasks with 0 VCs to reduce fall risk Therapy Time Individual Concurrent Group Co-treatment Time In 1043 Time Out 1123 Minutes 40 Timed Code Treatment Minutes: 40 Minutes WINSOME Barrientos Images from the original note were not included. PROGRESS NOTE PATIENT NAME: Angella Olson DATE: 10/14/2022 SURGEON: Richard PRIMARY CARE PHYSICIAN: Justyna Valderrama APRN - MABEL HD: # 10 ASSESSMENT Patient Active Problem List Diagnosis Chronic back pain Stage 3 chronic kidney disease (HCC) Essential hypertension Bipolar disorder (HCC) Type 2 diabetes mellitus, with long-term current use of insulin (HCC) Obesity (BMI 30-39.9) Iron deficiency anemia Fall at home, initial encounter Frequency of urination Mixed incontinence Nocturia Positive FIT (fecal immunochemical test) Dyslipidemia Gastroesophageal reflux disease Cirrhosis of liver without ascites (HCC) COPD (chronic obstructive pulmonary disease) (HCC) Sepsis secondary to UTI (HCC) Moderate malnutrition (HCC) Hepatic encephalopathy SUAD (acute kidney injury) (HCC) prerenal Closed compression fracture of third lumbar vertebra (HCC) Recurrent major depressive disorder, in partial remission (HCC) Non-alcoholic fatty liver disease MEDICAL DECISION MAKING AND PLAN L3 compression fracture after fall from standing height -S/p L3 kyphoplasty with neurosurgery on 10/06 -Pain control: Gabapentin, Tylenol prn, robaxin prn, jorge prn -PT/OT: ambulating 50 ft with a rolling walking. Needs gait strengthening -PMR eval: recommending subacute rehab- case management working on this History of type 2 diabetes on insulin -sliding scale insulin and BID Lantus 15U -Carb controlled diet -Glucose 109, 258 Requiring supplemental oxygen -Desats when weaned off -CXR negative on 10/08 -2L NC currently (home dose) Hx cirrhosis -Geriatrics/Internal medicine on, continue Rifaximin and Lactulose -Pt refusing lactulose, says she knows her own body and will take it when she needs it. Itchiness -Patient complaining of itchiness. Benadryl give over night. -Discussed with pharmacy any medications that are ordered that could be causing itchiness. Low suspicion of medication induced itchiness -Pt states improvement after shower but itchiness is returning. She has history of sensitive skin to any soaps or lotions. -F/u LFTs however pt without jaundice Dispo planning, SNF referrals given, patient rejected from 2 facilities so far. Due to patient's ability to ambulate, trauma team will explore possibility of patient returning home with appropriate DME. SUBJECTIVE Angella Olson was evaluated at bedside. Patient is awake and alert this morning. AAOx3. Pain is currently controlled. Patient has been tolerating a regular diet well. She does complain of itchiness but says she has always had itchiness and was worked up by a animal care technician a couple years ago who said there was nothing acute causing the itchiness. Pt does have some flat, white plaques on her abd and legs that itch as well. Benadryl resolves the itchiness. OBJECTIVE VITALS: Temp: Temp: 97.6 F (36.4 C)Temp Av.8 F (36.6 C) Min: 97.6 F (36.4 C) Max: 97.9 F (36.6 C) BP Systolic (24hrs), Av , Min:120 , Max:124 Diastolic (24hrs), Av, Min:60, Max:68 Pulse Pulse Av.3 Min: 64 Max: 84 Resp Resp Av.6 Min: 16 Max: 18 Pulse ox SpO2 Av % Min: 95 % Max: 95 % GENERAL: awake, alert, no acute distress NEURO: AAO x3 HEENT: Normocephalic, atraumatic : Purewick in place LUNGS: No respiratory distress HEART: Normal rate and regular rhythm ABDOMEN: Soft, nontender, nondistended, 4-5 white flat plaques about 0.5 cm above the umbilicus EXTREMITY: No lower extremity edema I/O last 3 completed shifts: In: 650 [P.O.:650] Out: 750 [Urine:750] Idalmis Light DO PGY-2 10/14/22 7:39 AM Associated attestation - Harriet, Nima Summers MD - 10/14/2022 10:36 AM EST I personally evaluated the patient and directed the medical decision making with Resident/ISAAC after the physical/radiologic exam and laboratory values were reviewed and confirmed. Nima Larios MD Physical Therapy Facility/Department: [address] ORTHO/MED SURG Physical Therapy Initial Assessment Name: Angella Olson : 1955 Date of Service: 10/13/2022 Discharge Recommendations: Patient would benefit from continued therapy after discharge Patient Diagnosis(es): The primary encounter diagnosis was Closed compression fracture of L3 vertebra, initial encounter ([facility]). A diagnosis of Fall from standing, initial encounter was also pertinent to this visit. 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 Past Surgical History: has a past surgical history that includes back surgery; Eye surgery; Abdomen surgery; section (1984); other surgical history; Colonoscopy; Upper gastrointestinal endoscopy; Mohs surgery (Left, 12/2019); Pain management procedure (Bilateral, 11/26/2021); Pain management procedure (Bilateral, 01/21/2022); other surgical history; other surgical history (Right); Pain management procedure (Right, 03/18/2022); Pain management procedure (N/A, 06/10/2022); Esophagogastroduodenoscopy (10/2021); Esophagogastroduodenoscopy (06/2021); Kyphosis surgery (10/06/2022); and Spine surgery (N/A, 10/06/2022). Assessment The pt ambulated 50 ft x 2 with a RW x CGA. The pt tends to veer to the R side during ambulation. She can self correct most of the time. She could benefit from a continuation of PT for gait strengthening Activity Tolerance Activity Tolerance: Patient limited by fatigue;Patient limited by endurance Plan Physcial Therapy Plan General Plan: 6-7 times per week Current Treatment Recommendations: Strengthening, ROM, Balance training, Functional mobility training, Transfer training, ADL/Self-care training, Endurance training, Gait training, Stair training, Neuromuscular re-education, Cognitive/Perceptual training, Home exercise program, Safety education & training, Patient/Caregiver education & training, Equipment evaluation, education, & procurement, Therapeutic activities Safety Devices Type of Devices: Gait belt, Nurse notified, Patient at risk for falls, All fall risk precautions in place, Left in chair, Call light within reach Restraints Restraints Initially in Place: No Restrictions Restrictions/Precautions Restrictions/Precautions: General Precautions Required Braces or Orthoses?: No Position Activity Restriction Spinal Precautions: No lifting greater than 5 pounds. Limit bending and twisting at the waist; Perfect Served Demetrio Friedman 10/07 can the strict bed rest and spine neutrality order be d/c'd to work with OT and PT? , received response yes & please ambulate patient Other position/activity restrictions: L3 kypho on 10/06;per perfect serve 10/07 pt okay to ambulate and not maintain spinal neutrality ~ demetrio kline Subjective Pain: Pt c/o 10/24 back pain Social/Functional History Social/Functional History Lives With: Alone Type of Home: Apartment Home Layout: One level Home Access: Level entry Bathroom Shower/Tub: Walk-in shower Bathroom Toilet: Handicap height Bathroom Equipment: Shower chair, Grab bars in shower, Grab bars around toilet Bathroom Accessibility: Accessible Home Equipment: Cane, Wheelchair-manual, Walker, standard, Rollator Receives Help From: (shearer helper for laundry, and dishes) ADL Assistance: Independent Homemaking Responsibilities: No Ambulation Assistance: Independent Transfer Assistance: Independent Active Cro: No Patient's Cro Info: medical transport Mode of Transportation: Cab 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 A/AROM Exercises: B LE LAQ's ankle pumps, hip flx x 10 OutComes Score AM-PAC Score AM-PAC Inpatient Mobility Raw Score : 19 (10/10/221515) AM-PAC Inpatient T-Scale Score : 45.44 (10/10/221515) Mobility Inpatient CMS 0-100% Score: 41.77 (10/10/221515) Mobility Inpatient CMS G-Code Modifier : CK (10/10/221515) Tinneti Score Goals Short Term Goals Time Frame for Short Term Goals: 14 visits Short Term Goal 1: pt will ambulate 200' with RW and CGA Short Term Goal 2: pt will be IND in bed to chair transfers Short Term Goal 3: pt will be IND in bed mobility while maintaing spinal precautions 100% of time Short Term Goal 4: pt will demonstrate dynamic balance to at least good Education Patient Education Education Given To: Patient Education Provided: Role of Therapy;Plan of Care Education Method: Verbal;Demonstration Barriers to Learning: None Education Outcome: Verbalized understanding;Continued education needed;Demonstrated understanding Therapy Time Individual Concurrent Group Co-treatment Time In 1315 Time Out 1348 Minutes 33 Fer Stone PT Images from the original note were not included. PROGRESS NOTE PATIENT NAME: Angella Olson DATE: 10/13/2022 SURGEON: Richard PRIMARY CARE PHYSICIAN: Justyna Valderrama, CELIA - MABEL HD: # 9 ASSESSMENT Patient Active Problem List Diagnosis Chronic back pain Stage 3 chronic kidney disease (HCC) Essential hypertension Bipolar disorder (HCC) Type 2 diabetes mellitus, with long-term current use of insulin (HCC) Obesity (BMI 30-39.9) Iron deficiency anemia Fall at home, initial encounter Frequency of urination Mixed incontinence Nocturia Positive FIT (fecal immunochemical test) Dyslipidemia Gastroesophageal reflux disease Cirrhosis of liver without ascites (HCC) COPD (chronic obstructive pulmonary disease) (HCC) Sepsis secondary to UTI (HCC) Moderate malnutrition (HCC) Hepatic encephalopathy SUAD (acute kidney injury) (HCC) prerenal Closed compression fracture of third lumbar vertebra (HCC) Recurrent major depressive disorder, in partial remission (HCC) Non-alcoholic fatty liver disease MEDICAL DECISION MAKING AND PLAN L3 compression fracture after fall from standing height -S/p L3 kyphoplasty with neurosurgery on 10/06 -MMPT -PT/OT -PMR eval: recommending subacute rehab- case management working on this -Will also discuss possibility of returning home with family History of type 2 diabetes on insulin -sliding scale insulin and BID Lantus 15U -Carb controlled diet Requiring supplemental oxygen -Desats when weaned off -CXR negative on 10/08 -2L NC currently (home dose) Hx cirrhosis -Geriatrics/Internal medicine on, continue Rifaximin and Lactulose -Pt refusing lactulose, says she knows her own body and will take it when she needs it. Itchiness -Patient complaining of itchiness. Benadryl give over night. PRN order discontinued as patient has had some intermittent confusion during hospital stay. -Ensure -Discussed with pharmacy any medications that are ordered that could be causing itchiness. Low suspicion of medication induced itchiness -Make sure to use Latex-free gloves when doing any dressing changes or bathing. Also please ensure all soap is thoroughly rinsed off after bathing and sheets/linens are changed daily. -please assist patient in the shower. Stop using chlorhexidine soap, use regular soap and have pt use lotion afterwards as well. Dispo planning, SNF referrals given, patient rejected from 2 facilities so far. Due to patient's ability to ambulate, trauma team will explore possibility of patient returning home with appropriate DME. SUBJECTIVE Angella Olson was evaluated at bedside. Patient is awake and alert this morning. AAOx3. Pain is currently controlled. Patient has been tolerating a regular diet well. She does complain of itchiness. OBJECTIVE VITALS: Temp: Temp: 98.3 F (36.8 C)Temp Av.3 F (36.8 C) Min: 98.3 F (36.8 C) Max: 98.3 F (36.8 C) BP Systolic (24hrs), Av , Min:73 , Max:128 Diastolic (24hrs), Av, Min:46, Max:72 Pulse Pulse Av.5 Min: 62 Max: 66 Resp Resp Av.3 Min: 17 Max: 18 Pulse ox SpO2 Av % Min: 91 % Max: 95 % GENERAL: awake, alert, no acute distress NEURO: AAO x3 HEENT: Normocephalic, atraumatic : Purewick in place LUNGS: No respiratory distress HEART: Normal rate and regular rhythm ABDOMEN: Soft, nontender, nondistended EXTREMITY: No lower extremity edema I/O last 3 completed shifts: In: 550 [P.O.:550] Out: 975 [Urine:975] Idalmis LightDO PGY-2 10/13/22 11:04 AM Associated attestation - Nima Larios MD - 10/13/2022 11:11 AM EST I personally evaluated the patient and directed the medical decision making with Resident/ISAAC after the physical/radiologic exam and laboratory values were reviewed and confirmed. Nima Larios MD Images from the original note were not included. PROGRESS NOTE PATIENT NAME: Angella Olson DATE: 10/12/2022 SURGEON: Richard PRIMARY CARE PHYSICIAN: CELIA Garcia CNP HD: # 8 ASSESSMENT Patient Active Problem List Diagnosis Chronic back pain Stage 3 chronic kidney disease (HCC) Essential hypertension Bipolar disorder (HCC) Type 2 diabetes mellitus, with long-term current use of insulin (HCC) Obesity (BMI 30-39.9) Iron deficiency anemia Fall at home, initial encounter Frequency of urination Mixed incontinence Nocturia Positive FIT (fecal immunochemical test) Dyslipidemia Gastroesophageal reflux disease Cirrhosis of liver without ascites (HCC) COPD (chronic obstructive pulmonary disease) (HCC) Sepsis secondary to UTI (HCC) Moderate malnutrition (HCC) Hepatic encephalopathy SUAD (acute kidney injury) (HCC) prerenal Closed compression fracture of third lumbar vertebra (HCC) Recurrent major depressive disorder, in partial remission (HCC) Non-alcoholic fatty liver disease MEDICAL DECISION MAKING AND PLAN L3 compression fracture after fall from standing height -S/p L3 kyphoplasty with neurosurgery on 10/06 -MMPT -PT/OT -PMR eval: recommending subacute rehab History of type 2 diabetes on insulin -sliding scale insulin and BID Lantus 15U -Carb controlled diet Requiring supplemental oxygen -Desats when weaned off -CXR negative on 10/08 -2L NC currently (home dose) Hx cirrhosis -Geriatrics/Internal medicine on, continue Rifaximin and Lactulose -Pt refusing lactulose, says she knows her own body and will take it when she needs it. Dispo planning, SNF referrals given, patient rejected from 2 facilities so far. Due to patient's ability to ambulate, trauma team will explore possibility of patient returning home with appropriate DME. SUBJECTIVE Angella Olson was evaluated at bedside. Patient is awake and alert this morning. AAOx3. Pain is currently controlled. Patient has been tolerating a regular diet well. Adequate urine output. Working with PT. PMR recommending subacute rehab placement. OBJECTIVE VITALS: Temp: Temp: 99.6 F (37.6 C)Temp Av.2 F (37.3 C) Min: 98.3 F (36.8 C) Max: 99.6 F (37.6 C) BP Systolic (24hrs), Av , Min:107 , Max:135 Diastolic (24hrs), Av, Min:43, Max:70 Pulse Pulse Av Min: 60 Max: 62 Resp Resp Av Min: 14 Max: 16 Pulse ox SpO2 Av % Min: 86 % Max: 95 % GENERAL: awake, alert, no acute distress NEURO: AAO x3 HEENT: Normocephalic, atraumatic : Purewick in place LUNGS: No respiratory distress HEART: Normal rate and regular rhythm ABDOMEN: Soft, nontender, nondistended EXTREMITY: No lower extremity edema I/O last 3 completed shifts: In: - Out: 575 [Urine:575] RADIOLOGY: XR CHEST PORTABLE Final Result No acute cardiopulmonary process. XR LUMBAR SPINE (2-3 VIEWS) Final Result Status post interval L3 vertebral plasty without complication identified. FLUORO FOR SURGICAL PROCEDURES Final Result MRI LUMBAR SPINE WO CONTRAST Final Result Acute superior endplate fracture of L3, resulting in minimal loss of vertebral body height. RECOMMENDATIONS: Unavailable XR SHOULDER RIGHT (MIN 2 VIEWS) Final Result No acute osseous abnormality. XR FEMUR RIGHT (MIN 2 VIEWS) Final Result No acute osseous abnormality. XR FEMUR LEFT (MIN 2 VIEWS) Final Result No acute osseous abnormality. Idalmis Gardiner DO 10/12/2022 7:02 AM Physical Therapy Facility/Department: [address] ORTHO/MED SURG Daily Treatment Note NAME: Angella Olson : 1955 Date of Service: 10/11/2022 Discharge Recommendations: Patient would benefit from continued therapy after discharge PT Equipment Recommendations Equipment Needed: No Patient Diagnosis(es): The primary encounter diagnosis was Closed compression fracture of L3 vertebra, initial encounter ([facility]). A diagnosis of Fall from standing, initial encounter was also pertinent to this visit. Assessment Assessment: Pt completed BM w/SBA, sit<>stand with CGA, ambulated 45 ft with CGA using 2WW. Pt would benefit from continued therapy following d/c facilitating return to functional IND. Activity Tolerance: Patient limited by fatigue;Patient limited by endurance Equipment Needed: No Plan Physcial Therapy Plan General Plan: 6-7 times per week Current Treatment Recommendations: Strengthening;ROM;Balance training;Functional mobility training;Transfer training;ADL/Self-care training;Endurance training;Gait training;Stair training;Neuromuscular re-education;Cognitive/Perceptual training;Home exercise program;Safety education & training;Patient/Caregiver education & training;Equipment evaluation, education, & procurement;Therapeutic activities PT Plan of Care: Daily Restrictions Restrictions/Precautions Restrictions/Precautions: General Precautions Required Braces or Orthoses?: No Position Activity Restriction Spinal Precautions: No lifting greater than 5 pounds. Limit bending and twisting at the waist; Perfect Served Demetrio Elder 10/07 can the strict bed rest and spine neutrality order be d/c'd to work with OT and PT? , received response yes & please ambulate patient Other position/activity restrictions: L3 kypho on 10/06;per perfect serve 10/07 pt okay to ambulate and not maintain spinal neutrality ~ demetrio kline Subjective Subjective: Pt sleeping when therapist arrived. She awakens easily, mildly confused but recovers quickly and is agreeable to mobilize. Pain: 7/10 back pain with jolts up to 05/26, nursing aware and providing pain medication Orientation Overall Orientation Status: Within Functional Limits Orientation Level: Oriented to person;Oriented to situation Cognition Overall Cognitive Status: WFL Arousal/Alertness: Appropriate responses to stimuli Following Commands: Follows all commands without difficulty Attention Span: Attends with cues to redirect Objective Bed Mobility Training Bed Mobility Training: Yes Overall Level of Assistance: Contact-guard assistance Interventions: Verbal cues Supine to Sit: Stand-by assistance Scooting: Minimum assistance Balance Sitting: Without support Standing: With support (2WW) Transfer Training Transfer Training: Yes Overall Level of Assistance: Contact-guard assistance Interventions: Verbal cues;Safety awareness training;Tactile cues Sit to Stand: Contact-guard assistance Stand to Sit: Contact-guard assistance Gait Training Gait Training: Yes Right Side Weight Bearing: As tolerated Left Side Weight Bearing: As tolerated Gait Overall Level of Assistance: Contact-guard assistance Interventions: Safety awareness training;Verbal cues;Tactile cues Base of Support: Widened Speed/Kayla: Slow Step Length: Right shortened;Left shortened Gait Abnormalities: Antalgic;Decreased step clearance (used 2L O2 via nc w/portable tank during session) Distance (ft): 45 Feet Assistive Device: Walker, rolling Rail Use: None Wheelchair Management Wheelchair Management: No Neuromuscular Education Neuromuscular Education: No Functional Movement Patterns: correct/safe functional mobility techniques Weight Bearing Weight Bearing Technique: No Other Specialty Interventions Other Treatments/Modalities: Pt left on toilet following session. RN aware, pt aware to pull call light when ready. Safety Devices Type of Devices: Gait belt;Nurse notified;Patient at risk for falls;All fall risk precautions in place Restraints Restraints Initially in Place: No Goals Short Term Goals Time Frame for Short Term Goals: 14 visits Short Term Goal 1: pt will ambulate 200' with RW and CGA Short Term Goal 2: pt will be IND in bed to chair transfers Short Term Goal 3: pt will be IND in bed mobility while maintaing spinal precautions 100% of time Short Term Goal 4: pt will demonstrate dynamic balance to at least good Education Patient Education Education Given To: Patient Education Provided: Role of Therapy;Plan of Care Education Provided Comments: correct/safe functional mobility technique Education Method: Verbal;Demonstration Barriers to Learning: None Education Outcome: Verbalized understanding;Continued education needed;Demonstrated understanding Therapy Time Individual Concurrent Group Co-treatment Time In 1430 Time Out 1445 Minutes 15 MERARI MCKEON, CONTACT FINGER ASSEMBLER Images from the original note were not included. PROGRESS NOTE PATIENT NAME: Angella Olson DATE: 10/11/2022 SURGEON: Richard PRIMARY CARE PHYSICIAN: Justyna Valderrama, COMMERCIAL HVAC SERVICE TECHNICIAN - NEWSPAPER COPY EDITOR HD: # 7 ASSESSMENT Patient Active Problem List Diagnosis Chronic back pain Stage 3 chronic kidney disease (HCC) Essential hypertension Bipolar disorder (HCC) Type 2 diabetes mellitus, with long-term current use of insulin (HCC) Obesity (BMI 30-39.9) Iron deficiency anemia Fall at home, initial encounter Frequency of urination Mixed incontinence Nocturia Positive FIT (fecal immunochemical test) Dyslipidemia Gastroesophageal reflux disease Cirrhosis of liver without ascites (HCC) COPD (chronic obstructive pulmonary disease) (HCC) Sepsis secondary to UTI (HCC) Moderate malnutrition (HCC) Hepatic encephalopathy SUAD (acute kidney injury) (HCC) prerenal Closed compression fracture of third lumbar vertebra (HCC) Recurrent major depressive disorder, in partial remission (HCC) Non-alcoholic fatty liver disease MEDICAL DECISION MAKING AND PLAN L3 compression fracture after fall from standing height -S/p L3 kyphoplasty with neurosurgery -MMPT -PT/OT -PMR eval: recommending subacute rehab History of type 2 diabetes on insulin -High-dose sliding scale -Carb controlled diet Requiring supplemental oxygen -Desats when weaned off -CXR negative on 10/08 -Continue to wean off oxygen Hx cirrhosis -Geriatrics/Internal medicine on, continue Rifaximin and Lactulose -Pt refusing lactulose, says she knows her own body and will take it when she needs it. Dispo planning, SNF referrals given SUBJECTIVE Angella Olson was evaluated at bedside. Patient is awake and alert this morning. AAOx3. Pain is currently controlled. Patient has been tolerating a regular diet well. Adequate urine output. She states she had 3-4 bowel movements yesterday. Working with PT. PMR recommending subacute rehab placement. OBJECTIVE VITALS: Temp: Temp: 98.3 F (36.8 C)Temp Av.3 F (36.8 C) Min: 98.2 F (36.8 C) Max: 98.3 F (36.8 C) BP Systolic (24hrs), Av , Min:121 , Max:129 Diastolic (24hrs), Av, Min:70, Max:73 Pulse Pulse Av Min: 60 Max: 62 Resp Resp Av Min: 14 Max: 18 Pulse ox SpO2 Av.5 % Min: 95 % Max: 98 % GENERAL: awake, alert, no acute distress NEURO: AAO x3 HEENT: Normocephalic, atraumatic : Purewick in place LUNGS: No respiratory distress HEART: Normal rate and regular rhythm ABDOMEN: Soft, nontender, nondistended EXTREMITY: No lower extremity edema I/O last 3 completed shifts: In: 600 [P.O.:600] Out: - Drain/tube output: In: 600 [P.O.:600] Out: - LAB: CBC: Recent Labs 10/08/222028 HGB 9.0* HCT 28.6* BMP: Recent Labs 10/09/22 0248 NA 135 K 4.5 CL 97* CO2 30 BUN 19 CREATININE 1.06* GLUCOSE 137* COAGS: No results for input(s): APTT, PROT, INR in the last 72 hours. RADIOLOGY: XR CHEST PORTABLE Final Result No acute cardiopulmonary process. XR LUMBAR SPINE (2-3 VIEWS) Final Result Status post interval L3 vertebral plasty without complication identified. FLUORO FOR SURGICAL PROCEDURES Final Result MRI LUMBAR SPINE WO CONTRAST Final Result Acute superior endplate fracture of L3, resulting in minimal loss of vertebral body height. RECOMMENDATIONS: Unavailable XR SHOULDER RIGHT (MIN 2 VIEWS) Final Result No acute osseous abnormality. XR FEMUR RIGHT (MIN 2 VIEWS) Final Result No acute osseous abnormality. XR FEMUR LEFT (MIN 2 VIEWS) Final Result No acute osseous abnormality. Idalmis Light DO PGY-2 10/11/22 12:29 PM Attending Note Discharge planning I have reviewed the above TECSS note(s) and I either performed the king elements of the medical history and physical exam or was present with the resident when the king elements of the medical history and physical exam were performed. I have discussed the findings, established the care plan and recommendations with Resident. Pasquale Bynum MD 10/11/2022 12:34 PM Physician Progress Note PATIENT: ANGELLA OLSON [facility] #: [id number] : 1955 ADMIT DATE: 10/04/2022 1:40 AM DISCH DATE: RESPONDING PROVIDER #: Shea Metcalf MD QUERY TEXT: Patient admitted with lumbar compression fracture s/p surgery Noted documentation of acute respiratory failure with atelectasis in progress note on 10/09. noted saturation was 87% and placed on 4 liters of oxygen. Noted no accessory muscle usage, tachypnea or sob. Please clarify one of the following The medical record reflects the following: Risk Factors: age, fracture , surgery Clinical Indicators: admitted with lumbar compression fracture s/p surgery Noted documentation of acute respiratory failure with atelectasis in progress note on 10/09. noted saturation was 87% and placed on 4 liters of oxygen. Noted no accessory muscle usage, tachypnea or sob Treatment: cxr, oxygen, monitoring Acute Respiratory Failure Clinical Indicators per MS-DRG Training Guide and Quick Reference Guide: pO2 < 60 mmHg or SpO2 (pulse oximetry) < 91% breathing room air pCO2 > 50 and pH < 7.35 P/F ratio (pO2 / FIO2) < 300 pO2 decrease or pCO2 increase by 10 mmHg from baseline (if known) Supplemental oxygen of 40% or more Presence of respiratory distress, tachypnea, dyspnea, shortness of breath, wheezing Unable to speak in complete sentences Use of accessory muscles to breathe Extreme anxiety and feeling of impending doom Tripod position Confusion/altered mental status/obtunded Thank You Jalen HAN BSN CCDS Email [email or web address] office hours M-F 6am to 2:30pm Options provided: -- Acute Respiratory Failure as evidenced by, Please document evidence. -- Acute Respiratory Failure ruled out after study -- Acute Respiratory Failure ruled out after study and atelectasis with hypoxia confirmed -- Other - I will add my own diagnosis -- Disagree - Not applicable / Not valid -- Disagree - Clinically unable to determine / Unknown -- Refer to Clinical Documentation Reviewer PROVIDER RESPONSE TEXT: Acute Respiratory Failure ruled out after study and atelectasis with hypoxia confirmed. Query created by: Isabella Palma on 10/09/2022 2:09 PM Electronically signed by: Shea Metcalf MD 10/11/2022 9:13 AM Occupational Therapy Facility/Department: [address] ORTHO/MED SURG Occupational Therapy Daily Treatment Note Name: Angella Olson : 1955 Date of Service: 10/10/2022 Discharge Recommendations: Patient would benefit from continued therapy after discharge Patient Diagnosis(es): The primary encounter diagnosis was Closed compression fracture of L3 vertebra, initial encounter ([facility]). A diagnosis of Fall from standing, initial encounter was also pertinent to this visit. 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 Past Surgical History: has a past surgical history that includes back surgery; Eye surgery; Abdomen surgery; section (1984); other surgical history; Colonoscopy; Upper gastrointestinal endoscopy; Mohs surgery (Left, 12/2019); Pain management procedure (Bilateral, 11/26/2021); Pain management procedure (Bilateral, 01/21/2022); other surgical history; other surgical history (Right); Pain management procedure (Right, 03/18/2022); Pain management procedure (N/A, 06/10/2022); Esophagogastroduodenoscopy (10/2021); Esophagogastroduodenoscopy (06/2021); Kyphosis surgery (10/06/2022); and Spine surgery (N/A, 10/06/2022). Assessment Performance deficits / Impairments: Decreased functional mobility ;Decreased ADL status;Decreased endurance;Decreased high-level IADLs;Decreased balance;Decreased safe awareness;Decreased strength;Decreased cognition;Decreased fine motor control;Decreased coordination Assessment: Pt making progress towards goals this session with minimal encouragement to complete tasks standing as able. Pt demonstrated fair follow through of back precautions this session and will continue to benfit from further OT services Prognosis: Good Activity Tolerance Activity Tolerance: Patient Tolerated treatment well;Patient limited by pain Plan Occupational Therapy Plan Times Per Week: 3-4x/wk Current Treatment Recommendations: Strengthening, Balance training, Functional mobility training, Endurance training, Safety education & training, Positioning, Patient/Caregiver education & training, Self-Care / ADL, Equipment evaluation, education, & procurement, Home management training Restrictions Restrictions/Precautions Restrictions/Precautions: General Precautions Required Braces or Orthoses?: No Position Activity Restriction Spinal Precautions: No lifting greater than 5 pounds. Limit bending and twisting at the waist; Perfect Served Demetrio Friedman 10/07 can the strict bed rest and spine neutrality order be d/c'd to work with OT and PT? , received response yes & please ambulate patient Other position/activity restrictions: L3 kypho on 10/06;per perfect serve 10/07 pt okay to ambulate and not maintain spinal neutrality ~ demetrio kline Subjective General Patient assessed for rehabilitation services?: Yes Response to previous treatment: Patient with no complaints from previous session Family / Caregiver Present: No General Comment Comments: RN ok'd patient for OT session.Pt up at EOB upon MARTINEZ arrival. Pt pleasant, cooperative and agreeable. Pt reports 3/10 pain in the back with patient able to continue session. Positioned for comfort at end of session Objective Safety Devices Type of Devices: Gait belt;Nurse notified;Patient at risk for falls;All fall risk precautions in place;Left in chair Restraints Restraints Initially in Place: No Balance Sitting: Without support (EOB 10 minutes Supervision) Standing: With support (RW SBA ~5-6 minutes at sink for ADL) Transfer Training Transfer Training: Yes Overall Level of Assistance: Stand-by assistance (With slow movement and increased effor with sit>>stand) Interventions: Verbal cues Sit to Stand: Stand-by assistance Stand to Sit: Stand-by assistance Bed to Chair: Stand-by assistance Gait Overall Level of Assistance: Stand-by assistance;Contact-guard assistance Interventions: Safety awareness training;Verbal cues Distance (ft): (Room distance only) Assistive Device: Walker, rolling ADL Grooming: Independent;Stand by assistance Grooming Skilled Clinical Factors: Pt completed oral and hair care standing at sink and SBA for standing balance and safety UE Dressing: Stand by assistance UE Dressing Skilled Clinical Factors: don bathrobe following precautions with x1 verbal cue for no twisting LE Dressing: Increased time to complete;Contact guard assistance LE Dressing Skilled Clinical Factors: slipp socks Additional Comments: Pt completed grooming at sink and don robe in standing at EOB and slipper socks seated at EOB. Review of back precautions with fair+ carryover to tasks Activity Tolerance Activity Tolerance: Patient limited by fatigue;Patient limited by endurance Bed mobility Supine to Sit: Unable to assess Sit to Supine: Unable to assess Scooting: Stand by assistance Bed Mobility Comments: Pt up to EOB upon MARTINEZ arrival and cocluded session seated in recliner. Pt demonstrated ability to scoot in and out of recliner safely Cognition Overall Cognitive Status: Exceptions Following Commands: Follows all commands without difficulty Attention Span: Attends with cues to redirect Safety Judgement: Decreased awareness of need for safety Problem Solving: Decreased awareness of errors;Assistance required to implement solutions;Assistance required to correct errors made;Assistance required to identify errors made;Assistance required to generate solutions Insights: Decreased awareness of deficits Initiation: Requires cues for some Sequencing: Requires cues for some Orientation Overall Orientation Status: Within Functional Limits Orientation Level: Oriented to person;Oriented to situation Education Given To: Patient Education Provided: Role of Therapy;ADL Adaptive Strategies;Precautions;Transfer Training;Equipment Education Provided Comments: safety, body mechanics and back precautions Education Method: Demonstration;Verbal Barriers to Learning: None Education Outcome: Verbalized understanding;Continued education needed;Demonstrated understanding AM-[facility] Score [facility] Inpatient Daily Activity Raw Score: 21 (10/10/22 154) [facility] Inpatient ADL T-Scale Score : 44.27 (10/10/22 154) ADL Inpatient [facility] 0-100% Score: 32.79 (10/10/22 1543) ADL Inpatient [facility] G-Code Modifier : CJ (10/10/221542) Goals Short Term Goals Time Frame for Short Term Goals: Patient will, by discharge Short Term Goal 1: demo UB ADLs independently Short Term Goal 2: demo LB ADLs at Mod I using AE PRN Short Term Goal 3: demo 100% adherence to bending and twisting precautions during functional tasks with 0 VCs Short Term Goal 4: demo functional transfers/mobility using LRD at Supervision to engage in ADLs safely Short Term Goal 5: demo 10+ min of dynamic standing tolerance at Supervision to engage in ADL/IADL tasks safely Short Term Goal 6: demo proper placement of RW during functional tasks with 0 VCs to reduce fall risk Therapy Time Individual Concurrent Group Co-treatment Time In 1420 Time Out 1451 Minutes 31 Timed Code Treatment Minutes: 31 Minutes BRENNA Barrientos Physical Therapy Facility/Department: [address] ORTHO/MED SURG Physical Therapy Daily Treatment Note Name: Angella Olson : 1955 Date of Service: 10/10/2022 Chief Complaint Patient presents with Fall Back Pain Discharge Recommendations: Patient would benefit from continued therapy after discharge PT Equipment Recommendations Equipment Needed: No Patient Diagnosis(es): The primary encounter diagnosis was Closed compression fracture of L3 vertebra, initial encounter ([facility]). A diagnosis of Fall from standing, initial encounter was also pertinent to this visit. 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 Past Surgical History: has a past surgical history that includes back surgery; Eye surgery; Abdomen surgery; section (1984); other surgical history; Colonoscopy; Upper gastrointestinal endoscopy; Mohs surgery (Left, 12/2019); Pain management procedure (Bilateral, 11/26/2021); Pain management procedure (Bilateral, 01/21/2022); other surgical history; other surgical history (Right); Pain management procedure (Right, 03/18/2022); Pain management procedure (N/A, 06/10/2022); Esophagogastroduodenoscopy (10/2021); Esophagogastroduodenoscopy (06/2021); Kyphosis surgery (10/06/2022); and Spine surgery (N/A, 10/06/2022). Assessment Body Structures, Functions, Activity Limitations Requiring Skilled Therapeutic Intervention: Decreased functional mobility ;Decreased ROM;Decreased ADL status;Decreased body mechanics;Decreased strength;Decreased cognition;Decreased endurance;Decreased balance;Decreased high-level IADLs;Decreased fine motor control;Decreased coordination Assessment: Pt amb 25'x3 CGA RW. Pt fatigues with ambulation and exercises requiring frequent seated and standing rest breaks. Pt would benefit from continued acute PT to address deficits. Therapy Prognosis: Good Decision Making: Medium Complexity Requires PT Follow-Up: Yes Activity Tolerance Activity Tolerance: Patient limited by fatigue;Patient limited by endurance Plan Physcial Therapy Plan General Plan: 6-7 times per week Current Treatment Recommendations: Strengthening, ROM, Balance training, Functional mobility training, Transfer training, ADL/Self-care training, Endurance training, Gait training, Stair training, Neuromuscular re-education, Cognitive/Perceptual training, Home exercise program, Safety education & training, Patient/Caregiver education & training, Equipment evaluation, education, & procurement, Therapeutic activities Safety Devices Type of Devices: Gait belt, Nurse notified, Patient at risk for falls, Left in bed, All fall risk precautions in place (Left sitting EOB w/ OT) Restraints Restraints Initially in Place: No Restrictions Restrictions/Precautions Restrictions/Precautions: General Precautions Required Braces or Orthoses?: No Position Activity Restriction Spinal Precautions: No lifting greater than 5 pounds. Limit bending and twisting at the waist; Perfect Hiri Demetrio Elder 10/07 can the strict bed rest and spine neutrality order be d/c'd to work with OT and PT? , received response yes & please ambulate patient Other position/activity restrictions: L3 kypho on 10/06;per InThrMa serve 10/07 pt okay to ambulate and not maintain spinal neutrality ~ demetrio kline Subjective General Chart Reviewed: Yes Patient assessed for rehabilitation services?: Yes Response To Previous Treatment: Patient with no complaints from previous session. Family / Caregiver Present: No Follows Commands: Within Functional Limits General Comment Comments: RN and pt agreeable to PT. Pt alert in bed upon arrival. Subjective Subjective: Pt reports 6/10 LBP. Does not verbalize n/t. Cognition Orientation Overall Orientation Status: Within Functional Limits Orientation Level: Oriented to person;Oriented to situation Cognition Overall Cognitive Status: Exceptions Following Commands: Follows all commands without difficulty Attention Span: Attends with cues to redirect Safety Judgement: Decreased awareness of need for safety Problem Solving: Decreased awareness of errors;Assistance required to implement solutions;Assistance required to correct errors made;Assistance required to identify errors made;Assistance required to generate solutions Initiation: Requires cues for some Sequencing: Requires cues for some Objective Bed mobility Supine to Sit: Stand by assistance Bed Mobility Comments: HOB flat, pt performed supine to sit prior to clinical writer's readiness. At end of session pt left sitting EOB as OT was beginning their treatment. Transfers Sit to Stand: Contact guard assistance Stand to Sit: Contact guard assistance Comment: Performed from bed and toilet. Ambulation Surface: Level tile Device: Rolling Walker Assistance: Contact guard assistance Quality of Gait: Pt amb w/ decreased gait speed, decreased step length, no LOB. Distance: 25' + 25' + 25' Comments: Brief standing rest breaks between More Ambulation?: Yes Ambulation 2 Surface - 2: level tile Device 2: Rolling Walker Assistance 2: Contact guard assistance Quality of Gait 2: Same as previous Distance: 8' Balance Posture: Fair Sitting - Static: Good Sitting - Dynamic: Fair;+ Standing - Static: Fair Standing - Dynamic: Fair Comments: Standing balance assessed w/ RW Exercise Treatment: Toileted. Transfers Traininx Sit to stand w/ RW. Standing: ROSALINDA calf raises 10x, ROSALINDA Dorsiflexion 5x, Marches 5x ea ( Did not alternate, performed all on 1 side then switched. ) AM-PAC Score -[facility] Inpatient Mobility Raw Score : 19 (10/10/22 151) -[facility] Inpatient T-Scale Score : 45.44 (10/10/22 151) Mobility Inpatient CMS 0-100% Score: 41.77 (10/10/22 151) Mobility Inpatient [facility] G-Code Modifier : CK (10/10/221515) Goals Short Term Goals Time Frame for Short Term Goals: 14 visits Short Term Goal 1: pt will ambulate 200' with RW and CGA Short Term Goal 2: pt will be IND in bed to chair transfers Short Term Goal 3: pt will be IND in bed mobility while maintaing spinal precautions 100% of time Short Term Goal 4: pt will demonstrate dynamic balance to at least good Education Patient Education Education Given To: Patient Education Provided: Role of Therapy;Plan of Care Education Method: Verbal Barriers to Learning: None Education Outcome: Verbalized understanding;Continued education needed;Demonstrated understanding Therapy Time Individual Concurrent Group Co-treatment Time In 1351 Time Out 1419 Minutes 28 Timed Code Treatment Minutes: 25 Minutes JUNIOR Bill This treatment/evaluation completed by signing SPT. Signing PT agrees with treatment and documentation. Images from the original note were not included. [facility] Office: [phone] Jason Baker DO, Demetri Johnson DO, Mehrdad Gibbs DO, Guy Grady DO, Mayte Boyer MD, Sarha Marroquin MD, Keren Dickson MD, Aletha Nuno MD, Landry Stahl MD, Lilibeth Umana MD, King Blackwell DO, Paul Scott MD, Liza Ward DO, Mary Lou Olvera MD, Abner Chisholm MD, Benjamin Baker DO, Janet Malcolm MD, Dejon Lemus MD, Roberto Payne DO, Shea Metcalf MD, Idalia Alexis MD, Audra Clark MD, Stephanie Lyon MD, Eren Turcios DO, Thee Richardson MD, Asuncion Benítez MD, Sondra Mcpherson, MABEL, Nisha Kaplan, NEWSPAPER COPY EDITOR, Tulio Corbett, NEWSPAPER COPY EDITOR, Tamiko Palafox, NEWSPAPER COPY EDITOR, Daksha Pierce, MARCIA, Jennifer Tadeo, NEWSPAPER COPY EDITOR, Emily Fonseca, NEWSPAPER COPY EDITOR, Karen Marin NEWSPAPER COPY EDITOR, Idalmis Diaz, NEWSPAPER COPY EDITOR, Shawna Arredondo, NEWSPAPER COPY EDITOR, INA GarciaC, Ramsey Almanza, DRY ROLLER, Lila Santa, NEWSPAPER COPY EDITOR, Buffy Groves, NEWSPAPER COPY EDITOR [facility] IN-PATIENT SERVICE [facility] Progress Note 10/10/2022 12:16 PM Name: Angella Olson Acct: [id number] Room: 0249/0249-01 Day: 6 Admit Date: 10/04/2022 1:40 AM PCP: CELIA Garcia CNP Code Status: Full Code Subjective: C/C: Chief Complaint Patient presents with Fall Back Pain Interval History Status: improved Pt seen this morning. She denies any complaints. She says pain is much improved after kyphoplasty. Blood sugars much better and she continues on Lantus and Metformin. BP reviewed. Better this am. Pulse in 60's. Patient has no edema or ascites.continue current meds. Ammonia level normal. She had 1 BM yesterday which was loose. She is requiring 2l/oxygen. CXR shows atelectasis. Lungs otherwise clear. Discussed with patient to sit up more and use IS hourly. Hemoglobin 9.0. will monitor. Follow up op with GI She has liver cirrhosis and chronic thrombocytopenia. Platelets stable. Review of Systems: Constitutional: negative for chills, fevers, sweats Respiratory: negative for cough, dyspnea on exertion, shortness of breath, wheezing Cardiovascular: negative for chest pain, chest pressure/discomfort, lower extremity edema, palpitations Gastrointestinal: negative for abdominal pain, constipation, diarrhea, nausea, vomiting Neurological: negative for dizziness, headache +back pain Medications: Allergies: Allergies Allergen Reactions Latex Shortness Of Breath and Rash Clindamycin/Lincomycin Anaphylaxis Erythromycin Base Anaphylaxis Fentanyl Anaphylaxis Gatifloxacin Anaphylaxis Indomethacin Shortness Of Breath, Nausea Only and Palpitations Iodine Tincture [Iodine] Shortness Of Breath, Itching and Swelling Pcn [Penicillins] Shortness Of Breath, Itching and Swelling Shellfish-Derived Products Shortness Of Breath, Itching and Swelling Sulfa Antibiotics Anaphylaxis Tetracyclines & Related Shortness Of Breath, Itching and Swelling Lidocaine Swelling Nitrofuran Derivatives Hives Phenazopyridine Hcl Hives Phenazopyridine Current Meds: Scheduled Meds: diphenhydrAMINE 25 mg IntraVENous Once furosemide 20 mg Oral Daily lactulose 20 g Oral TID insulin lispro 0-4 Units SubCUTAneous TID insulin lispro 0-4 Units SubCUTAneous Nightly atenolol 25 mg Oral Nightly insulin glargine 15 Units SubCUTAneous BID spironolactone 25 mg Oral Daily metFORMIN 500 mg Oral BID WC atorvastatin 80 mg Oral Nightly rifAXIMin 550 mg Oral BID heparin (porcine) 5,000 Units SubCUTAneous 3 times per day polyethylene glycol 17 g Oral Daily divalproex 250 mg Oral TID FLUoxetine 40 mg Oral Daily gabapentin 100 mg Oral BID melatonin 5 mg Oral Nightly Continuous Infusions: PRN Meds: ipratropium-albuterol, acetaminophen, methocarbamol, sodium chloride flush, ondansetron OR ondansetron, oxyCODONE Data: Past Medical History: has a past medical history of Anxiety, Arthritis, Bipolar disorder (HCC), COPD (chronic obstructive pulmonary disease) (HCC), Depression, Fibromyalgia, Hypertension, Liver disease, Non-alcoholic fatty liver disease, Obesity, Pulmonary fibrosis (HCC), 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 Social History: reports that she quit smoking about 13 years ago. Her smoking use included cigarettes. She has a 30.00 pack-year smoking history. She has never used smokeless tobacco. She reports that she does not drink alcohol and does not use drugs. Family History: Family History Problem Relation Age of Onset Other Mother Interstitial Pulmonary fibrosis. Other Son stomach issues-rapid onset diarrhea Vitals: BP (!) 138/56 Pulse 65 Temp 98.2 F (36.8 C) (Oral) Resp 16 Ht 5' 3 (1.6 m) Wt 177 lb 4 oz (80.4 kg) LMP (LMP Unknown) SpO2 98% BMI 31.40 kg/m Temp (24hrs), Av.9 F (36.6 C), Min:97.6 F (36.4 C), Max:98.2 F (36.8 C) Recent Labs 10/09/22 1644 10/09/22 2115 10/10/22 0739 10/10/22 1122 POCGLU 155* 178* 142* 237* I/O (24Hr): No intake or output data in the 24 hours ending 10/10/22 1216 Labs: Hematology: Recent Labs 10/08/22 0709 10/08/22 2029 WBC 4.4 -- RBC 3.15* -- HGB 9.0* 9.0* HCT 28.7* 28.6* MCV 91.1 -- MCH 28.6 -- MCHC 31.4 -- RDW 18.4* -- PLT 88* -- MPV 10.1 -- Chemistry: Recent Labs 10/07/22 1416 10/08/22 0709 10/09/22 0248 NA -- 137 135 K 4.5 4.2 4.5 CL -- 99 97* CO2 -- 27 30 GLUCOSE -- 127* 137* BUN -- 20 19 CREATININE -- 1.16* 1.06* ANIONGAP -- 11 8* LABGLOM -- 51* 57* CALCIUM -- 8.4* 8.7 Recent Labs 10/08/22 0709 10/08/22 0727 10/09/22 0750 10/09/22 1138 10/09/22 1644 10/09/22 1657 10/09/22 2115 10/10/22 0739 10/10/22 1122 LABA1C 7.3* -- -- -- -- -- -- -- -- AMMONIA -- -- -- -- -- 44 -- -- -- POCGLU -- < > 147* 150* 155* -- 178* 142* 237* < > = values in this interval not displayed. ABG: Lab Results Component Value Date/Time PHART 7.329 08/14/2021 09:12 AM ODI2HIN 50.8 08/14/2021 09:12 AM PO2ART 85.6 08/14/2021 09:12 AM NOV2MLF 26.1 08/14/2021 09:12 AM NBEA 0.6 08/14/2021 09:12 AM PBEA NOT REPORTED 08/14/2021 09:12 AM [id number] 95.7 08/14/2021 09:12 AM FIO2 NOT REPORTED 08/14/2021 09:12 AM Lab Results Component Value Date/Time SPECIAL 20 ML LFTF OREARM 09/06/2022 08:50 PM Lab Results Component Value Date/Time CULTURE NO GROWTH 5 DAYS 09/06/2022 08:50 PM Radiology: XR PELVIS (1-2 VIEWS) Result Date: 10/03/2022 No acute osseous abnormality. XR SHOULDER RIGHT (MIN 2 VIEWS) Result Date: 10/04/2022 No acute osseous abnormality. XR FEMUR LEFT (MIN 2 VIEWS) Result Date: 10/04/2022 No acute osseous abnormality. XR FEMUR RIGHT (MIN 2 VIEWS) Result Date: 10/04/2022 No acute osseous abnormality. CT Head WO Contrast Result Date: 10/03/2022 No acute intracranial abnormality. CT CERVICAL SPINE WO CONTRAST Result Date: 10/03/2022 No acute abnormality of the cervical spine. Anterior cervical fusion from C5 through C7 CT THORACIC SPINE WO CONTRAST Result Date: 10/03/[address] of the thoracic spine. CT LUMBAR SPINE WO CONTRAST Result Date: 10/03/2022 Acute mild compression fracture of L3. MRI LUMBAR SPINE WO CONTRAST Result Date: 10/04/2022 Acute superior endplate fracture of L3, resulting in minimal loss of vertebral body height. RECOMMENDATIONS: Unavailable XR CHEST PORTABLE Result Date: 10/03/2022 Mild edema or interstitial lung disease. Bilateral subsegmental atelectasis. Physical Examination: General appearance: alert, cooperative and no distress Mental Status: oriented to person, place and time and normal affect Lungs: clear to auscultation bilaterally, normal effort Heart: regular rate and rhythm, no murmur Abdomen: soft, nontender, nondistended, normal bowel sounds, no masses, hepatomegaly, splenomegaly Extremities: no edema, redness, tenderness in the calves Skin: no gross lesions, rashes, induration Assessment: Hospital Problems Last Modified POA * (Principal) Closed compression fracture of third lumbar vertebra (HCC) 10/04/2022 Yes Recurrent major depressive disorder, in partial remission (HCC) 10/06/2022 Yes Non-alcoholic fatty liver disease 10/06/2022 Yes Bipolar disorder (HCC) 10/06/2022 Yes Plan: L3 compression fracture- S/p Kyphoplasty with improvement in pain. Working with PT. Plan for rehab placement HTN- stable. Continue current meds. Hyperkalemia- resolved. SUAD better. BMP as needed IDDM - blood sugars improved. Continue Lantus and Metformin. Acute respiratory failure- patient has atelectasis on CXR. Needs deep breathing and sitting up more. IS every 2 hours. Try to wean off oxygen. SUAD- Resolved. restart aldactone. Avoid hypotension. Monitor. Liver cirrhosis - continue Lactulose, lasix. Restarted Rifaximin. Hyponatremia - Resolved. BMP in 1 week op. multifactorial. Stable. Continue to monitor. Stop continuous IV fluids if receiving fluid bolus. Major depression/bipolar. Continue meds Thrombocytopenia- stable. Sec to cirrhosis. Monitor. Stop heparin if platelets below 50K DVT prophylaxis- on heparin sq IM to sign off. Continue current meds. Recall as needed. Shea Metcalf MD 10/10/2022 12:16 PM Nutrition Assessment Type and Reason for Visit: RD Nutrition Re-Screen/LOS Nutrition Recommendations/Plan: Continue current diet Monitor weight, labs and intake. Malnutrition Assessment: Malnutrition Status: No malnutrition Nutrition Assessment: Patient seen for LOS. Admitted for L3 compression fracture. PMH T2DM, cirrhosis, bipolar disorder, depression. Patient with good appetite/intake, 76-100% of most meals. glucose 142-237. Estimated Daily Nutrient Needs: Energy (kcal): 7502-3407 kcal/day Weight Used for Energy Requirements: Current Protein (g): 80-90 gm/day Weight Used for Protein Requirements: [place] Fluid (ml/day): 1500 mL or per MD Method Used for Fluid Requirements: 1 ml/kcal Nutrition Related Findings: Labs/meds reviewed Wound Type: Surgical Incision Current Nutrition Therapies: ADULT DIET; Regular; 4 carb choices (60 gm/meal) Anthropometric Measures: Height: 5' 3 (160 cm) Current Body Wt: 177 lb 4 oz (80.4 kg) BMI: 31.4 Nutrition Diagnosis: No nutrition diagnosis at this time related to as evidenced by Nutrition Interventions: Food and/or Nutrient Delivery: Continue Current Diet Nutrition Education/Counseling: No recommendation at this time Coordination of Nutrition Care: Continue to monitor while inpatient Goals: Goals: Meet at least 75% of estimated needs, prior to discharge Nutrition Monitoring and Evaluation: Behavioral-Environmental Outcomes: None Identified Food/Nutrient Intake Outcomes: Food and Nutrient Intake Physical Signs/Symptoms Outcomes: Biochemical Data, GI Status, Skin, Weight Discharge Planning: Too soon to determine Viv Salazar RD Contact: [phone] [facility] Inpatient Progress Note PJ ELLINGTON 10/10/2022 10:18 AM Angella Olson [id number] Time spent with Patient: 5 minutes Presenting Patient Report: Patient denies any depressive or anxious symptoms and declines interventions at this time. Patient was provided contact information for this clinical writer to use if she begins experiencing symptoms and patient agrees to contact as needed. Physical Therapy Facility/Department: [address] NEURO Daily Treatment Note NAME: Angella Olson : 1955 Date of Service: 10/09/2022 Chief Complaint Patient presents with Fall Back Pain 67 y.o. female who presents with acute L3 fracture s/p Kyphoplasty 10/07/22 Discharge Recommendations: Patient would benefit from continued therapy after discharge PT Equipment Recommendations Equipment Needed: No Patient Diagnosis(es): The primary encounter diagnosis was Closed compression fracture of L3 vertebra, initial encounter ([facility]). A diagnosis of Fall from standing, initial encounter was also pertinent to this visit. Assessment Assessment: Pt participated with sitting, stading and supine activity, completed log roll with SBA. Pt able to stand from sitting with verbal instruction, education, use of AD and CGA, activity is limited by pain and weakness Activity Tolerance: Patient tolerated treatment well;Patient limited by pain;Patient limited by fatigue;Patient limited by endurance Equipment Needed: No Plan Physcial Therapy Plan General Plan: 6-7 times per week Current Treatment Recommendations: Strengthening;ROM;Balance training;Functional mobility training;Transfer training;ADL/Self-care training;Endurance training;Gait training;Stair training;Neuromuscular re-education;Cognitive/Perceptual training;Home exercise program;Safety education & training;Patient/Caregiver education & training;Equipment evaluation, education, & procurement;Therapeutic activities Restrictions Position Activity Restriction Spinal Precautions: No lifting greater than 5 pounds. Limit bending and twisting at the waist; Perfect Cady Friedman 10/07 can the strict bed rest and spine neutrality order be d/c'd to work with OT and PT? , received response yes & please ambulate patient Other position/activity restrictions: L3 kypho on 10/06;per perfect serve 10/07 pt okay to ambulate and not maintain spinal neutrality ~ demetrio kline Subjective Subjective Subjective: Pt is awake and alert and in agreement with PT intervention. Pt report pain limiting abilty to ambulate and sit for prololnged periods of time. Pt demonstrate fall risk, decreased activity tolerance and will continue to benefit from PT to progress activity and promote further functional independence Pain: 7/10 back pain with jolts up to /, nursing aware and providing pain medication Orientation Overall Orientation Status: Within Functional Limits Orientation Level: Oriented to person;Oriented to situation Cognition Overall Cognitive Status: Exceptions Arousal/Alertness: Appropriate responses to stimuli Following Commands: Follows all commands without difficulty Attention Span: Difficulty dividing attention Memory: Appears intact Safety Judgement: Decreased awareness of need for safety Problem Solving: Decreased awareness of errors;Assistance required to implement solutions;Assistance required to correct errors made;Assistance required to identify errors made;Assistance required to generate solutions Insights: Fully aware of deficits Initiation: Requires cues for some Sequencing: Does not require cues Cognition Comment: Pt occasionally responding slowly to questions.appears sligtly confused at times Objective Vitals Bed Mobility Training Bed Mobility Training: Yes Overall Level of Assistance: Contact-guard assistance Interventions: Verbal cues Rolling: Contact-guard assistance Supine to Sit: Stand-by assistance Sit to Supine: Stand-by assistance Scooting: Minimum assistance (Pt unable to reposition or scoot due to complaint of pain) Balance Sitting: Intact Standing: With support Transfer Training Transfer Training: Yes Overall Level of Assistance: Contact-guard assistance Interventions: Verbal cues;Safety awareness training Sit to Stand: Contact-guard assistance Stand to Sit: Contact-guard assistance Stand Pivot Transfers: Contact-guard assistance;Assist X1 Bed to Chair: Contact-guard assistance Toilet Transfer: Contact-guard assistance (verbal instruction needed with use of walker) Gait Training Gait Training: Yes Right Side Weight Bearing: As tolerated Left Side Weight Bearing: As tolerated Gait Overall Level of Assistance: Contact-guard assistance Interventions: Safety awareness training;Verbal cues Base of Support: Widened Speed/Kayla: Slow Step Length: Right shortened;Left shortened Gait Abnormalities: Antalgic;Decreased step clearance Distance (ft): 50 Feet Assistive Device: Gait belt;Walker, rollator Rail Use: None Number of Stairs Trained: 0 (pt report unable due to pain) Neuromuscular Education Neuromuscular Education: Yes Neuromuscular Comments: Pt Functional Movement Patterns: Pt educated on use of rolling walker with focus on initial stand from sitting, hand and foot placement. PT Exercises Exercise Treatment: B ankle pumps x 10 reps. Attempted further supine exercises but pt having increased pain and fatigue so deferred Safety Devices Type of Devices: Gait belt;Nurse notified;Call light within reach;Patient at risk for falls;Left in bed;Bed alarm in place;All fall risk precautions in place Restraints Restraints Initially in Place: No AM-PAC Inpatient Mobility Raw Score 18 Goals Short Term Goals Time Frame for Short Term Goals: 14 visits Short Term Goal 1: pt will ambulate 200' with RW and CGA Short Term Goal 2: pt will be IND in bed to chair transfers Short Term Goal 3: pt will be IND in bed mobility while maintaing spinal precautions 100% of time Short Term Goal 4: pt will demonstrate dynamic balance to at least good Education Patient Education Education Given To: Patient Education Provided: Role of Therapy;Plan of Care;Precautions;Transfer Training;Fall Prevention Strategies Education Provided Comments: pt educated on PT purpose and POC. In additon pt educated on use of RW for ambulation and transfers. Education Method: Verbal Barriers to Learning: Cognition Education Outcome: Verbalized understanding;Continued education needed;Demonstrated understanding Therapy Time Individual Concurrent Group Co-treatment Time In 1420 Time Out 1510 Minutes 50 Timed Code Treatment Minutes: 50 Minutes Luly Goldman, PT, DPT Images from the original note were not included. Physical Therapy Physical Therapy Cancel Note DATE: 10/09/2022 NAME: Angella Olson : 1955 Patient not seen this date for Physical Therapy due to: Patient Declined: Pt educated on importance of therapy but still continued to refuse. Plan to check back later if able; otherwise, plan to check back tomorrow 10/10/2022 Images from the original note were not included. Occupational Therapy [facility] [place] Occupational Therapy Not Seen Note DATE: 10/09/2022 NAME: Angella Olson : 1955 Patient not seen this date for Occupational Therapy due to: MICHELLE/Krysten attempted OT session with patient at 10:15 am. Pt declined despite encouragement and education for importance of therapy participation. Will continue as able. Images from the original note were not included. [facility] Office: [phone] Jason Baker DO, Demetri Johnson DO, Mehrdad Gibbs, DO, Guy Grady, DO, Mayte Boyer MD, Sarah Marroquin MD, Keren Dickson MD, Aletha Nuno MD, Landry Stahl MD, Lilibeth Umana MD, King Blackwell, DO, Paul Scott MD, Liza Ward, DO, Mary Lou Olvera MD, Abner Chisholm MD, Benjamin Baker DO, Janet Malcolm MD, Dejon Lemus MD, Roberto Payne DO, Shea Metcalf MD, Idalia Alexis MD, Audra Clark MD, Stephanie Lyon MD, Eren Turcios DO, Thee Richardson MD, Asuncion Benítez MD, Sondra Mcpherson, NEWSPAPER COPY EDITOR, Nisha Kaplan, NEWSPAPER COPY EDITOR, Tulio Corbett, NEWSPAPER COPY EDITOR, Tamiko Palafox, NEWSPAPER COPY EDITOR, Daksha Pierce, MARCIA, Jennifer Tadeo, NEWSPAPER COPY EDITOR, Emily Fonseca, NEWSPAPER COPY EDITOR, Karen Marin, NEWSPAPER COPY EDITOR, Idalmis Diaz, NEWSPAPER COPY EDITOR, Shawna Arredondo, NEWSPAPER COPY EDITOR, INA GarciaC, Ramsey Almanza, DRY ROLLER, Lila Santa, NEWSPAPER COPY EDITOR, Buffy Groves, NEWSPAPER COPY EDITOR [facility] IN-PATIENT SERVICE [facility] Progress Note 10/09/2022 8:30 AM Name: Angella Olson Acct: [id number] Room: Day: 5 Admit Date: 10/04/2022 1:40 AM PCP: CELIA Garcia CNP Code Status: Full Code Subjective: C/C: Chief Complaint Patient presents with Fall Back Pain Interval History Status: improved Pt seen this morning. She denies any complaints. She says pain is much improved after kyphoplasty. Blood sugars much better and she continues on Lantus and Metformin. BP reviewed. Low last night. Atenolol was held. Better this am. Pulse in 60's. Patient has no edema or ascites. Will hold atenolol and diuretics for 1 day and monitor. Renal function and electrolytes normal. She is requiring 2l/oxygen. CXR shows atelectasis. Lungs otherwise clear. Discussed with patient to sit up more and use IS hourly. Hemoglobin 9.0. will monitor. Follow up op with GI She has liver cirrhosis and chronic thrombocytopenia. Platelets stable. Review of Systems: Constitutional: negative for chills, fevers, sweats Respiratory: negative for cough, dyspnea on exertion, shortness of breath, wheezing Cardiovascular: negative for chest pain, chest pressure/discomfort, lower extremity edema, palpitations Gastrointestinal: negative for abdominal pain, constipation, diarrhea, nausea, vomiting Neurological: negative for dizziness, headache +back pain Medications: Allergies: Allergies Allergen Reactions Latex Shortness Of Breath and Rash Clindamycin/Lincomycin Anaphylaxis Erythromycin Base Anaphylaxis Fentanyl Anaphylaxis Gatifloxacin Anaphylaxis Indomethacin Shortness Of Breath, Nausea Only and Palpitations Iodine Tincture [Iodine] Shortness Of Breath, Itching and Swelling Pcn [Penicillins] Shortness Of Breath, Itching and Swelling Shellfish-Derived Products Shortness Of Breath, Itching and Swelling Sulfa Antibiotics Anaphylaxis Tetracyclines & Related Shortness Of Breath, Itching and Swelling Lidocaine Swelling Nitrofuran Derivatives Hives Phenazopyridine Hcl Hives Phenazopyridine Current Meds: Scheduled Meds: [Held by provider] furosemide 20 mg Oral Daily atenolol 25 mg Oral Nightly insulin glargine 15 Units SubCUTAneous BID insulin lispro 0-16 Units SubCUTAneous Q4H [Held by provider] spironolactone 25 mg Oral Daily metFORMIN 500 mg Oral BID WC atorvastatin 80 mg Oral Nightly rifAXIMin 550 mg Oral BID heparin (porcine) 5,000 Units SubCUTAneous 3 times per day polyethylene glycol 17 g Oral Daily divalproex 250 mg Oral TID FLUoxetine 40 mg Oral Daily lactulose 20 g Oral BID gabapentin 100 mg Oral BID melatonin 5 mg Oral Nightly Continuous Infusions: PRN Meds: ipratropium-albuterol, acetaminophen, methocarbamol, sodium chloride flush, ondansetron OR ondansetron, oxyCODONE Data: Past Medical History: has a past medical history of Anxiety, Arthritis, Bipolar disorder (HCC), COPD (chronic obstructive pulmonary disease) (HCC), Depression, Fibromyalgia, Hypertension, Liver disease, Non-alcoholic fatty liver disease, Obesity, Pulmonary fibrosis (HCC), 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 Social History: reports that she quit smoking about 13 years ago. Her smoking use included cigarettes. She has a 30.00 pack-year smoking history. She has never used smokeless tobacco. She reports that she does not drink alcohol and does not use drugs. Family History: Family History Problem Relation Age of Onset Other Mother Interstitial Pulmonary fibrosis. Other Son stomach issues-rapid onset diarrhea Vitals: BP 115/60 Pulse 63 Temp 98.4 F (36.9 C) (Oral) Resp 17 LMP (LMP Unknown) SpO2 92% Temp (24hrs), Av.1 F (36.7 C), Min:97.8 F (36.6 C), Max:98.4 F (36.9 C) Recent Labs 10/08/22 1936 10/09/22 0011 10/09/22 0425 10/09/22 0750 POCGLU 222* 156* 144* 147* I/O (24Hr): No intake or output data in the 24 hours ending 10/09/22 0830 Labs: Hematology: Recent Labs 10/07/22 0548 10/08/22 0709 10/08/229 WBC 3.6 4.4 -- RBC 3.38* 3.15* -- HGB 9.6* 9.0* 9.0* HCT 31.1* 28.7* 28.6* MCV 92.0 91.1 -- MCH 28.4 28.6 -- MCHC 30.9 31.4 -- RDW 17.8* 18.4* -- PLT 86* 88* -- MPV 10.4 10.1 -- Chemistry: Recent Labs 10/07/22 0548 10/07/22 1416 10/08/22 0709 10/09/22 0248 NA 133* -- 137 135 K 5.5* 4.5 4.2 4.5 CL 91* -- 99 97* CO2 29 -- 27 30 GLUCOSE 291* -- 127* 137* BUN 23 -- 20 19 CREATININE 1.37* -- 1.16* 1.06* ANIONGAP 13 -- 11 8* LABGLOM 42* -- 51* 57* CALCIUM 8.9 -- 8.4* 8.7 Recent Labs 10/08/22 0709 10/08/22 0727 10/08/22 1141 10/08/22 1629 10/08/22 1936 10/09/22 0011 10/09/22 0425 10/09/22 0750 LABA1C 7.3* -- -- -- -- -- -- -- POCGLU -- < > 174* 196* 222* 156* 144* 147* < > = values in this interval not displayed. ABG: Lab Results Component Value Date/Time PHART 7.329 08/14/2021 09:12 AM [id number] 50.8 08/14/2021 09:12 AM PO2ART 85.6 08/14/2021 09:12 AM [id number] 26.1 08/14/2021 09:12 AM NBEA 0.6 08/14/2021 09:12 AM PBEA NOT REPORTED 08/14/2021 09:12 AM [id number] 95.7 08/14/2021 09:12 AM FIO2 NOT REPORTED 08/14/2021 09:12 AM Lab Results Component Value Date/Time SPECIAL 20 ML LFTF OREARM 09/06/2022 08:50 PM Lab Results Component Value Date/Time CULTURE NO GROWTH 5 DAYS 09/06/2022 08:50 PM Radiology: XR PELVIS (1-2 VIEWS) Result Date: 10/03/2022 No acute osseous abnormality. XR SHOULDER RIGHT (MIN 2 VIEWS) Result Date: 10/04/2022 No acute osseous abnormality. XR FEMUR LEFT (MIN 2 VIEWS) Result Date: 10/04/2022 No acute osseous abnormality. XR FEMUR RIGHT (MIN 2 VIEWS) Result Date: 10/04/2022 No acute osseous abnormality. CT Head WO Contrast Result Date: 10/03/2022 No acute intracranial abnormality. CT CERVICAL SPINE WO CONTRAST Result Date: 10/03/2022 No acute abnormality of the cervical spine. Anterior cervical fusion from C5 through C7 CT THORACIC SPINE WO CONTRAST Result Date: 10/03/[address] of the thoracic spine. CT LUMBAR SPINE WO CONTRAST Result Date: 10/03/2022 Acute mild compression fracture of L3. MRI LUMBAR SPINE WO CONTRAST Result Date: 10/04/2022 Acute superior endplate fracture of L3, resulting in minimal loss of vertebral body height. RECOMMENDATIONS: Unavailable XR CHEST PORTABLE Result Date: 10/03/2022 Mild edema or interstitial lung disease. Bilateral subsegmental atelectasis. Physical Examination: General appearance: alert, cooperative and no distress Mental Status: oriented to person, place and time and normal affect Lungs: clear to auscultation bilaterally, normal effort Heart: regular rate and rhythm, no murmur Abdomen: soft, nontender, nondistended, normal bowel sounds, no masses, hepatomegaly, splenomegaly Extremities: no edema, redness, tenderness in the calves Skin: no gross lesions, rashes, induration Assessment: Hospital Problems Last Modified POA * (Principal) Closed compression fracture of third lumbar vertebra (HCC) 10/04/2022 Yes Recurrent major depressive disorder, in partial remission (HCC) 10/06/2022 Yes Non-alcoholic fatty liver disease 10/06/2022 Yes Bipolar disorder (HCC) 10/06/2022 Yes Plan: L3 compression fracture- S/p Kyphoplasty with improvement in pain. Working with PT. Plan for rehab placement HTN- BP on lower side. Put Atenolol on hold. Hold Aldactone due to h/o cirrhosis. Decrease lasix. Will reevaluate. Advised patient I may stop Atenolol if BP remains low. Hyperkalemia- resolved. SUAD better. Restart Aldactone. BMP in 1 week. IDDM - blood sugars improved. Continue Lantus and Metformin. Acute respiratory failure- patient has atelectasis on CXR. Needs deep breathing and sitting up more. IS every 2 hours. Try to wean off oxygen. SUAD- Resolved. restart aldactone. Avoid hypotension. Monitor. Liver cirrhosis - continue Lactulose, lasix. Restarted Rifaximin. Hyponatremia - Resolved. BMP in 1 week op. multifactorial. Stable. Continue to monitor. Stop continuous IV fluids if receiving fluid bolus. Major depression/bipolar. Continue meds Thrombocytopenia- stable. Sec to cirrhosis. Monitor. Stop heparin if platelets below 50K DVT prophylaxis- on heparin sq Shea Metcalf MD 10/09/2022 8:30 AM Images from the original note were not included. PROGRESS NOTE PATIENT NAME: Angella Olson DATE: 10/09/2022 SURGEON: Richard PRIMARY CARE PHYSICIAN: Justyna Valderrama APRN - MABEL HD: # 5 ASSESSMENT Patient Active Problem List Diagnosis Chronic back pain Stage 3 chronic kidney disease (HCC) Essential hypertension Bipolar disorder (HCC) Type 2 diabetes mellitus, with long-term current use of insulin (HCC) Obesity (BMI 30-39.9) Iron deficiency anemia Fall at home, initial encounter Frequency of urination Mixed incontinence Nocturia Positive FIT (fecal immunochemical test) Dyslipidemia Gastroesophageal reflux disease Cirrhosis of liver without ascites (HCC) COPD (chronic obstructive pulmonary disease) (HCC) Sepsis secondary to UTI (HCC) Moderate malnutrition (HCC) Hepatic encephalopathy SUAD (acute kidney injury) (HCC) prerenal Closed compression fracture of third lumbar vertebra (HCC) Recurrent major depressive disorder, in partial remission (HCC) Non-alcoholic fatty liver disease MEDICAL DECISION MAKING AND PLAN L3 compression fracture after fall from standing height -S/p L3 kyphoplasty with neurosurgery -MMPT -PT/OT -PMR eval History of type 2 diabetes on insulin -High-dose sliding scale -Carb controlled diet Requiring supplemental oxygen -Desats when weaned off -CXR negative on 10/08 Hx cirrhosis -Geriatrics/Internal medicine on, continue Rifaximin and Lactulose Dispo planning, SNF referrals given SUBJECTIVE Angella Olson was evaluated at bedside. Patient is awake and alert this morning. AAOx3. Pain is currently controlled. Patient has been tolerating a regular diet well. Adequate urine output. She states she has not had a bowel movement yet. Working with PT. OBJECTIVE VITALS: Temp: Temp: 98.4 F (36.9 C)Temp Av.1 F (36.7 C) Min: 97.8 F (36.6 C) Max: 98.4 F (36.9 C) BP Systolic (24hrs), Av , Min:81 , Max:118 Diastolic (24hrs), Av, Min:46, Max:60 Pulse Pulse Av.8 Min: 62 Max: 67 Resp Resp Av.4 Min: 14 Max: 18 Pulse ox SpO2 Av % Min: 92 % Max: 95 % GENERAL: awake, alert, no acute distress NEURO: AAO x3 HEENT: Normocephalic, atraumatic : Purewick in place LUNGS: No respiratory distress, on room air HEART: Normal rate and regular rhythm ABDOMEN: Soft, nontender, nondistended EXTREMITY: No lower extremity edema No intake/output data recorded. Drain/tube output: No intake/output data recorded. LAB: CBC: Recent Labs 10/07/22 0548 10/08/22 0709 10/08/222028 WBC 3.6 4.4 -- HGB 9.6* 9.0* 9.0* HCT 31.1* 28.7* 28.6* MCV 92.0 91.1 -- PLT 86* 88* -- BMP: Recent Labs 10/07/22 0548 10/07/22 1416 10/08/22 0709 10/09/22 0248 NA 133* -- 137 135 K 5.5* 4.5 4.2 4.5 CL 91* -- 99 97* CO2 29 -- 27 30 BUN 23 -- 20 19 CREATININE 1.37* -- 1.16* 1.06* GLUCOSE 291* -- 127* 137* COAGS: No results for input(s): APTT, PROT, INR in the last 72 hours. RADIOLOGY: XR CHEST PORTABLE Final Result No acute cardiopulmonary process. XR LUMBAR SPINE (2-3 VIEWS) Final Result Status post interval L3 vertebral plasty without complication identified. FLUORO FOR SURGICAL PROCEDURES Final Result MRI LUMBAR SPINE WO CONTRAST Final Result Acute superior endplate fracture of L3, resulting in minimal loss of vertebral body height. RECOMMENDATIONS: Unavailable XR SHOULDER RIGHT (MIN 2 VIEWS) Final Result No acute osseous abnormality. XR FEMUR RIGHT (MIN 2 VIEWS) Final Result No acute osseous abnormality. XR FEMUR LEFT (MIN 2 VIEWS) Final Result No acute osseous abnormality. Jae Kuhn MD 10/09/22 8:10 AM Attestation signed by Ashish Burch MD I personally evaluated the patient and directed the medical decision making with Resident/ISAAC after the physical/radiologic exam and laboratory values were reviewed and confirmed. Ashish Burch MD Notified trtapan cui of bp orders given Notified through perfect serve To Dr. Cui about pts BP of 81/47 map of 60 and a hr of 67, awaiting response. Physical Therapy Facility/Department: [address] NEURO Daily Treatment Note Name: Angella Olson : 1955 Date of Service: 10/08/2022 Discharge Recommendations: Patient would benefit from continued therapy after discharge Further therapy recommended at discharge.The patient should be able to tolerate at least 3 hours of therapy per day over 5 days or 15 hours over 7 days. This patient may benefit from a Physical Medicine and Rehab consult. PT Equipment Recommendations Equipment Needed: No Patient Diagnosis(es): The primary encounter diagnosis was Closed compression fracture of L3 vertebra, initial encounter ([facility]). A diagnosis of Fall from standing, initial encounter was also pertinent to this visit. 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 Past Surgical History: has a past surgical history that includes back surgery; Eye surgery; Abdomen surgery; section (1984); other surgical history; Colonoscopy; Upper gastrointestinal endoscopy; Mohs surgery (Left, 12/2019); Pain management procedure (Bilateral, 11/26/2021); Pain management procedure (Bilateral, 01/21/2022); other surgical history; other surgical history (Right); Pain management procedure (Right, 03/18/2022); Pain management procedure (N/A, 06/10/2022); Esophagogastroduodenoscopy (10/2021); Esophagogastroduodenoscopy (06/2021); Kyphosis surgery (10/06/2022); and Spine surgery (N/A, 10/06/2022). Assessment Body Structures, Functions, Activity Limitations Requiring Skilled Therapeutic Intervention: Decreased functional mobility ;Decreased ROM;Decreased ADL status;Decreased body mechanics;Decreased strength;Decreased cognition;Decreased endurance;Decreased balance;Decreased high-level IADLs;Decreased fine motor control;Decreased coordination Assessment: Pt ambulated 10 ft x 2 trials from bed<>toilet and 50 ft x 2 with CGA and RW with chair follow. Pt had mild spastic movements today overall and is slightly unsteady with ambulation. Pt fatigued easily with longer distance ambulation and required extended rest period to recover. Pt would benefit from continued PT. Therapy Prognosis: Good Activity Tolerance Activity Tolerance: Patient tolerated treatment well;Patient limited by pain;Patient limited by fatigue;Patient limited by endurance Plan Physcial Therapy Plan General Plan: 6-7 times per week Current Treatment Recommendations: Strengthening, ROM, Balance training, Functional mobility training, Transfer training, ADL/Self-care training, Endurance training, Gait training, Stair training, Neuromuscular re-education, Cognitive/Perceptual training, Home exercise program, Safety education & training, Patient/Caregiver education & training, Equipment evaluation, education, & procurement, Therapeutic activities Safety Devices Type of Devices: Gait belt, Nurse notified, Call light within reach, Patient at risk for falls, Left in bed, Bed alarm in place Restraints Restraints Initially in Place: No Restrictions Position Activity Restriction Spinal Precautions: No lifting greater than 5 pounds. Limit bending and twisting at the waist; Perfect Served Demetrio Elder 10/07 can the strict bed rest and spine neutrality order be d/c'd to work with OT and PT? , received response yes & please ambulate patient Other position/activity restrictions: L3 kypho on 10/06;per perfect serve 10/07 pt okay to ambulate and not maintain spinal neutrality ~ demetrio kline Subjective General Chart Reviewed: Yes Response To Previous Treatment: Patient with no complaints from previous session. 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 Pt having 3/10 pain in low back upon arrival. Pt semifowlers upon arrival. Pt pleasant and cooperative t/o Vision/Hearing Vision Vision: Impaired Vision Exceptions: Wears glasses at all times Cognition Orientation Overall Orientation Status: Within Functional Limits Cognition Overall Cognitive Status: Exceptions Arousal/Alertness: Appropriate responses to stimuli Following Commands: Follows all commands without difficulty Attention Span: Difficulty dividing attention Memory: Appears intact Safety Judgement: Decreased awareness of need for safety Problem Solving: Decreased awareness of errors;Assistance required to implement solutions;Assistance required to correct errors made;Assistance required to identify errors made;Assistance required to generate solutions Initiation: Requires cues for some Cognition Comment: Pt occasionally responding slowly to questions. Objective Bed mobility Rolling to Left: Stand by assistance Supine to Sit: Contact guard assistance (HOB flat with use of bed rail and log rolling technique) Sit to Supine: Contact guard assistance (HOB flat with use of bed rail and log rolling technique) Scooting: Stand by assistance Bed Mobility Comments: assessed with HOB flat. Increased time and effort to complete. Pt sat at EOB with SBA. Transfers Sit to Stand: Contact guard assistance Stand to Sit: Contact guard assistance Comment: assessed to RW. 5 trials; STS from bed x 2, STS from toilet x 2, STS from chair x 1. Pt fatigues and has increased back pain when sitting at EOB so preferred standing or sidelying to recover Ambulation Surface: Level tile Device: Rolling Walker Other Apparatus: O2 (2L NC) Assistance: Contact guard assistance Quality of Gait: unsteady without LOB Gait Deviations: Slow Kayla;Decreased step length;Decreased step height;Increased ALEX Distance: 10 ft x 2 Comments: Pt ambulated to toilet. Verbal cues for position of RW when preparing to sit on commode More Ambulation?: Yes Ambulation 2 Surface - 2: level tile Device 2: Rolling Walker Other Apparatus 2: O2;Wheelchair follow (2L NC) Assistance 2: Contact guard assistance Quality of Gait 2: unsteady without LOB, pt increased ALEX so I don't feel like I am stepping on my feet. Gait Deviations: Slow Kayla;Increased ALEX;Decreased step length;Decreased step height Distance: 50 ft x 2 trials Comments: increased time and effort to complete. Extended seated rest period to recover. Balance Posture: Fair Sitting - Static: Good Sitting - Dynamic: Fair;+ Standing - Static: Good;- Standing - Dynamic: Fair Comments: assessed with RW support and sitting at EOB Exercise Treatment: B ankle pumps x 10 reps. Attempted further supine exercises but pt having increased pain and fatigue so deferred OutComes Score AM-PAC Score AM-PAC Inpatient Mobility Raw Score : 18 (10/08/22 1558) AM-PAC Inpatient T-Scale Score : 43.63 (10/08/22 1558) Mobility Inpatient CMS 0-100% Score: 46.58 (02/22/23 1558) Mobility Inpatient [facility] G-Code Modifier : CK (10/08/221557) Goals Short Term Goals Time Frame for Short Term Goals: 14 visits Short Term Goal 1: pt will ambulate 200' with RW and CGA Short Term Goal 2: pt will be IND in bed to chair transfers Short Term Goal 3: pt will be IND in bed mobility while maintaing spinal precautions 100% of time Short Term Goal 4: pt will demonstrate dynamic balance to at least good Education Patient Education Education Given To: Patient Education Provided: Role of Therapy;Plan of Care;Precautions;Transfer Training;Fall Prevention Strategies Education Method: Verbal Barriers to Learning: Cognition Education Outcome: Verbalized understanding;Continued education needed;Demonstrated understanding Therapy Time Individual Concurrent Group Co-treatment Time In 1507 Time Out 1556 Minutes 49 Timed Code Treatment Minutes: 40 Minutes YESSICA GUILLORY PTA Images from the original note were not included. [facility] Office: [phone] Jason Baker DO, Demetri Johnson DO, Mehrdad Gibbs DO, Guy Grady DO, Mayte Boyer MD, Sarah Marroquin MD, Keren Dickson MD, Aletha Nuno MD, Landry Stahl MD, Lilibeth Umana MD, King Blackwell DO, Paul Scott MD, Liza Ward DO, Mary Lou Olvera MD, Abner Chisholm MD, Benjamin Baker DO, Janet Malcolm MD, Dejon Lemus MD, Roberto Payne DO, Shea Metcalf MD, Idalia Alexis MD, Audra Clark MD, Stephanie Lyon MD, Eren Turcios DO, Thee Richardson MD, Asuncion Benítez MD, Sondra Mcpherson CNP, Nisha Kaplan CNP, Tulio Corbett CNP, Tamiko Palafox CNP, Daksha Pierce DNP, Jennifer Tadeo CNP, Emily Fonseca CNP, Karen Marin CNP, Idalmis Diaz CNP, Shawna Arredondo CNP, Chris Walker, AMANDEEP, Ramsey Almanza, JENNIFER, Lila Snata CNP, Buffy Groves CNP [facility] IN-PATIENT SERVICE [facility] Progress Note 10/08/2022 11:44 AM Name: Angella Olson Acct: [id number] Room: [address] [place] [address] Day: 4 Admit Date: 10/04/2022 1:40 AM PCP: CELIA Garcia CNP Code Status: Full Code Subjective: C/C: Chief Complaint Patient presents with Fall Back Pain Interval History Status: improved Pt seen post operatively. She is doing well. She has no complaints . She says pain is much improved after kyphoplasty. She is eating breakfast. Noted high blood sugars and will increase Lantus and restart Metformin. BP reviewed. Electrolytes better. Can restart Aldactone. Creatinine improved. Potassium better. Add low dose Aldactone and monitor BMP. Hemoglobin 9.0. will monitor. Follow up op with GI She has liver cirrhosis and chronic thrombocytopenia. Platelets stable. Review of Systems: Constitutional: negative for chills, fevers, sweats Respiratory: negative for cough, dyspnea on exertion, shortness of breath, wheezing Cardiovascular: negative for chest pain, chest pressure/discomfort, lower extremity edema, palpitations Gastrointestinal: negative for abdominal pain, constipation, diarrhea, nausea, vomiting Neurological: negative for dizziness, headache +back pain Medications: Allergies: Allergies Allergen Reactions Latex Shortness Of Breath and Rash Clindamycin/Lincomycin Anaphylaxis Erythromycin Base Anaphylaxis Fentanyl Anaphylaxis Gatifloxacin Anaphylaxis Indomethacin Shortness Of Breath, Nausea Only and Palpitations Iodine Tincture [Iodine] Shortness Of Breath, Itching and Swelling Pcn [Penicillins] Shortness Of Breath, Itching and Swelling Shellfish-Derived Products Shortness Of Breath, Itching and Swelling Sulfa Antibiotics Anaphylaxis Tetracyclines & Related Shortness Of Breath, Itching and Swelling Lidocaine Swelling Nitrofuran Derivatives Hives Phenazopyridine Hcl Hives Phenazopyridine Current Meds: Scheduled Meds: atenolol 25 mg Oral Nightly insulin glargine 15 Units SubCUTAneous BID insulin lispro 0-16 Units SubCUTAneous Q4H rifAXIMin 550 mg Oral BID heparin (porcine) 5,000 Units SubCUTAneous 3 times per day sodium chloride flush 5-40 mL IntraVENous 2 times per day polyethylene glycol 17 g Oral Daily divalproex 250 mg Oral TID FLUoxetine 40 mg Oral Daily lactulose 20 g Oral BID furosemide 40 mg Oral Daily gabapentin 100 mg Oral BID [Held by provider] spironolactone 50 mg Oral Daily methocarbamol 750 mg Oral Q6H acetaminophen 1,000 mg Oral q8h melatonin 5 mg Oral Nightly Continuous Infusions: sodium chloride dextrose PRN Meds: ipratropium-albuterol, sodium chloride flush, sodium chloride, glucose, dextrose bolus OR dextrose bolus, glucagon (rDNA), dextrose, ondansetron OR ondansetron, oxyCODONE Data: Past Medical History: has a past medical history of Anxiety, Arthritis, Bipolar disorder (HCC), COPD (chronic obstructive pulmonary disease) (HCC), Depression, Fibromyalgia, Hypertension, Liver disease, Non-alcoholic fatty liver disease, Obesity, Pulmonary fibrosis (HCC), 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 Social History: reports that she quit smoking about 13 years ago. Her smoking use included cigarettes. She has a 30.00 pack-year smoking history. She has never used smokeless tobacco. She reports that she does not drink alcohol and does not use drugs. Family History: Family History Problem Relation Age of Onset Other Mother Interstitial Pulmonary fibrosis. Other Son stomach issues-rapid onset diarrhea Vitals: BP (!) 113/50 Pulse 68 Temp 98.2 F (36.8 C) (Oral) Resp 22 LMP (LMP Unknown) SpO2 92% Temp (24hrs), Av F (36.7 C), Min:97.6 F (36.4 C), Max:98.4 F (36.9 C) Recent Labs 10/07/22 1702 10/07/22 1914 10/07/22 2117 10/08/22 0727 POCGLU 263* 406* 293* 124* I/O (24Hr): No intake or output data in the 24 hours ending 10/08/22 1144 Labs: Hematology: Recent Labs 10/06/22 0408 10/07/22 0548 10/08/22 0709 WBC 4.6 3.6 4.4 RBC 3.55* 3.38* 3.15* HGB 10.2* 9.6* 9.0* HCT 35.1* 31.1* 28.7* MCV 98.9 92.0 91.1 MCH 28.7 28.4 28.6 MCHC 29.1 30.9 31.4 RDW 17.4* 17.8* 18.4* PLT 84* 86* 88* MPV 10.3 10.4 10.1 Chemistry: Recent Labs 10/06/22 0408 10/07/22 0548 10/07/22 1416 10/08/22 0709 NA 132* 133* -- 137 K 5.0 5.5* 4.5 4.2 CL 96* 91* -- 99 CO2 -- GLUCOSE 161* 291* -- 127* BUN -- CREATININE 1.14* 1.37* -- 1.16* ANIONGAP 10 13 -- 11 LABGLOM 52* 42* -- 51* CALCIUM 8.9 8.9 -- 8.4* Recent Labs 10/07/22 0749 10/07/22 1157 10/07/22 1702 10/07/22 1914 10/07/22 2117 10/08/22 0727 POCGLU 253* 310* 263* 406* 293* 124* ABG: Lab Results Component Value Date/Time PHART 7.329 08/14/2021 09:12 AM AYM7TSP 50.8 08/14/2021 09:12 AM PO2ART 85.6 08/14/2021 09:12 AM [id number] 26.1 08/14/2021 09:12 AM NBEA 0.6 08/14/2021 09:12 AM PBEA NOT REPORTED 08/14/2021 09:12 AM [id number] 95.7 08/14/2021 09:12 AM FIO2 NOT REPORTED 08/14/2021 09:12 AM Lab Results Component Value Date/Time SPECIAL 20 ML LFTF OREARM 09/06/2022 08:50 PM Lab Results Component Value Date/Time CULTURE NO GROWTH 5 DAYS 09/06/2022 08:50 PM Radiology: XR PELVIS (1-2 VIEWS) Result Date: 10/03/2022 No acute osseous abnormality. XR SHOULDER RIGHT (MIN 2 VIEWS) Result Date: 10/04/2022 No acute osseous abnormality. XR FEMUR LEFT (MIN 2 VIEWS) Result Date: 10/04/2022 No acute osseous abnormality. XR FEMUR RIGHT (MIN 2 VIEWS) Result Date: 10/04/2022 No acute osseous abnormality. CT Head WO Contrast Result Date: 10/03/2022 No acute intracranial abnormality. CT CERVICAL SPINE WO CONTRAST Result Date: 10/03/2022 No acute abnormality of the cervical spine. Anterior cervical fusion from C5 through C7 CT THORACIC SPINE WO CONTRAST Result Date: 10/03/[address] of the thoracic spine. CT LUMBAR SPINE WO CONTRAST Result Date: 10/03/2022 Acute mild compression fracture of L3. MRI LUMBAR SPINE WO CONTRAST Result Date: 10/04/2022 Acute superior endplate fracture of L3, resulting in minimal loss of vertebral body height. RECOMMENDATIONS: Unavailable XR CHEST PORTABLE Result Date: 10/03/2022 Mild edema or interstitial lung disease. Bilateral subsegmental atelectasis. Physical Examination: General appearance: alert, cooperative and no distress Mental Status: oriented to person, place and time and normal affect Lungs: clear to auscultation bilaterally, normal effort Heart: regular rate and rhythm, no murmur Abdomen: soft, nontender, nondistended, normal bowel sounds, no masses, hepatomegaly, splenomegaly Extremities: no edema, redness, tenderness in the calves Skin: no gross lesions, rashes, induration Assessment: Hospital Problems Last Modified POA * (Principal) Closed compression fracture of third lumbar vertebra (HCC) 10/04/2022 Yes Recurrent major depressive disorder, in partial remission (HCC) 10/06/2022 Yes Non-alcoholic fatty liver disease 10/06/2022 Yes Bipolar disorder (HCC) 10/06/2022 Yes Plan: L3 compression fracture- S/p Kyphoplasty with improvement in pain. Working with PT. Plan for rehab placement HTN- BP on lower side. Atenolol decreased. Low dose Aldactone due to h/o cirrhosis. Hyperkalemia- resolved. SUAD better. Restart Aldactone. BMP in 1 week. IDDM - blood sugars uncontrolled. Lantus restarted. Dose adjusted. Can restart Metformin. SUAD- Resolved. restart aldactone. Avoid hypotension. Monitor. Liver cirrhosis - continue Lactulose, lasix. Restart Rifaximin. Hyponatremia - Resolved. BMP in 1 week op. multifactorial. Stable. Continue to monitor. Stop continuous IV fluids if receiving fluid bolus. Major depression/bipolar. Continue meds Thrombocytopenia- stable. Sec to cirrhosis. Monitor. Stop heparin if platelets below 50K DVT prophylaxis- on heparin sq Shea Metcalf MD 10/08/2022 11:44 AM Images from the original note were not included. PROGRESS NOTE PATIENT NAME: Angella Olson DATE: 10/08/2022 SURGEON: Richard PRIMARY CARE PHYSICIAN: Justyna Valderrama, COMM[employer]CIAL [employer] SERVICE TECHNICIAN - [employer] HD: # 4 ASSESSMENT Patient Active Problem List Diagnosis Chronic back pain Stage 3 chronic kidney disease (HCC) Essential hypertension Bipolar disorder (HCC) Type 2 diabetes mellitus, with long-term current use of insulin (HCC) Obesity (BMI 30-39.9) Iron deficiency anemia Fall at home, initial encounter Frequency of urination Mixed incontinence Nocturia Positive FIT (fecal immunochemical test) Dyslipidemia Gastroesophageal reflux disease Cirrhosis of liver without ascites (HCC) COPD (chronic obstructive pulmonary disease) (HCC) Sepsis secondary to UTI (HCC) Moderate malnutrition (HCC) Hepatic encephalopathy SUAD (acute kidney injury) (HCC) prerenal Closed compression fracture of third lumbar vertebra (HCC) Recurrent major depressive disorder, in partial remission (HCC) Non-alcoholic fatty liver disease MEDICAL DECISION MAKING AND PLAN L3 compression fracture after fall from standing height -S/p L3 kyphoplasty with neurosurgery -Hgb stable at 9.6 this AM -MMPT -PT/OT -Follow-up x-ray lumbar spine post kyphoplasty History of type 2 diabetes on insulin -High-dose sliding scale -Carb controlled diet -Metformin held due to hyperkalemia, recommend restarting but will await IM recs Requiring supplemental oxygen -desats when weaned off -f/u CXR Hx cirrhosis -Geriatrics/Internal medicine on, continue Rifaximin and Lactulose -Aldactone held for hyperkalemia yesterday. Ok to restart but will await IM recs. Dispo planning, SNF referrals given SUBJECTIVE Angella Olson was evaluated at bedside. Patient is awake and alert this morning. AAOx3. Pain is currently controlled. OBJECTIVE VITALS: Temp: Temp: 98.2 F (36.8 C)Temp Av F (36.7 C) Min: 97.6 F (36.4 C) Max: 98.4 F (36.9 C) BP Systolic (24hrs), Av , Min:99 , Max:125 Diastolic (24hrs), Av, Min:48, Max:76 Pulse Pulse Av.6 Min: 64 Max: 91 Resp Resp Av.6 Min: 7 Max: 25 Pulse ox SpO2 Av.1 % Min: 92 % Max: 97 % GENERAL: awake, alert, no acute distress NEURO: AAO x3 HEENT: Normocephalic, atraumatic : Purewick in place LUNGS: No respiratory distress, on room air HEART: Normal rate and regular rhythm ABDOMEN: Soft, nontender, nondistended EXTREMITY: No lower extremity edema I/O last 3 completed shifts: In: - Out: 500 [Urine:500] Drain/tube output: No intake/output data recorded. LAB: CBC: Recent Labs 10/06/22 0408 10/07/22 0548 10/08/22 0709 WBC 4.6 3.6 4.4 HGB 10.2* 9.6* 9.0* HCT 35.1* 31.1* 28.7* MCV 98.9 92.0 91.1 PLT 84* 86* 88* BMP: Recent Labs 10/06/22 0408 10/07/22 0548 10/07/22 1416 10/08/22 0709 NA 132* 133* -- 137 K 5.0 5.5* 4.5 4.2 CL 96* 91* -- 99 CO2 26 29 -- 27 BUN 17 23 -- 20 CREATININE 1.14* 1.37* -- 1.16* GLUCOSE 161* 291* -- 127* COAGS: No results for input(s): APTT, PROT, INR in the last 72 hours. RADIOLOGY: XR LUMBAR SPINE (2-3 VIEWS) Final Result Status post interval L3 vertebral plasty without complication identified. FLUORO FOR SURGICAL PROCEDURES Final Result MRI LUMBAR SPINE WO CONTRAST Final Result Acute superior endplate fracture of L3, resulting in minimal loss of vertebral body height. RECOMMENDATIONS: Unavailable XR SHOULDER RIGHT (MIN 2 VIEWS) Final Result No acute osseous abnormality. XR FEMUR RIGHT (MIN 2 VIEWS) Final Result No acute osseous abnormality. XR FEMUR LEFT (MIN 2 VIEWS) Final Result No acute osseous abnormality. XR CHEST PORTABLE (Results Pending) XR CHEST (SINGLE VIEW FRONTAL) (Results Pending) Idalmis HoweDO aster PGY-2 10/08/22 11:11 AM Associated attestation - Milad Corbett MD - 10/14/2022 10:52 PM EST I personally evaluated the patient and directed the medical decision making with Resident/ISAAC after the physical/radiologic exam and laboratory values were reviewed and confirmed. ANM Occupational Therapy Facility/Department: [address] [facility] Occupational Therapy Initial Assessment Name: Angella Olson : 1955 Date of Service: 10/07/2022 Chief Complaint Patient presents with Fall Back Pain Discharge Recommendations: Patient would benefit from continued therapy after discharge OT Equipment Recommendations Equipment Needed: Yes Mobility Devices: ADL Assistive Devices ADL Assistive Devices: Long-handled Shoe Horn;Sock-Aid Hard Patient Diagnosis(es): The primary encounter diagnosis was Closed compression fracture of L3 vertebra, initial encounter ([facility]). A diagnosis of Fall from standing, initial encounter was also pertinent to this visit. 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 Past Surgical History: has a past surgical history that includes back surgery; Eye surgery; Abdomen surgery; section (1984); other surgical history; Colonoscopy; Upper gastrointestinal endoscopy; Mohs surgery (Left, 12/2019); Pain management procedure (Bilateral, 11/26/2021); Pain management procedure (Bilateral, 01/21/2022); other surgical history; other surgical history (Right); Pain management procedure (Right, 03/18/2022); Pain management procedure (N/A, 06/10/2022); Esophagogastroduodenoscopy (10/2021); Esophagogastroduodenoscopy (06/2021); Kyphosis surgery (10/06/2022); and Spine surgery (N/A, 10/06/2022). Assessment Performance deficits / Impairments: Decreased functional mobility ;Decreased ADL status;Decreased endurance;Decreased high-level IADLs;Decreased balance;Decreased safe awareness;Decreased strength;Decreased cognition;Decreased fine motor control;Decreased coordination Assessment: Patient in bedside recliner upon arrival, demonstrates decreased coordination in B UE and LEs impacting fluidity of movements during functional tasks. Pt required CGA for LB dressing tasks this date using modified technique to adhere to precautions post-op. Pt required CGA for functional transfers and mobility using RW for support, able to progress to dynamic standing balance with uni/bilateral hand release from RW to engage in ADL tasks. Patient would benefit from continued acute OT services to address functional deficits impacting performance and safety with ADLs and functional tasks through skilled intervention. Prognosis: Good Decision Making: Medium Complexity Activity Tolerance Activity Tolerance: Patient Tolerated treatment well Plan Occupational Therapy Plan Times Per Week: 3-4x/wk Current Treatment Recommendations: Strengthening, Balance training, Functional mobility training, Endurance training, Safety education & training, Positioning, Patient/Caregiver education & training, Self-Care / ADL, Equipment evaluation, education, & procurement, Home management training Restrictions Position Activity Restriction Spinal Precautions: No lifting greater than 5 pounds. Limit bending and twisting at the waist; Perfect Served Demetrio Theide 10/07 can the strict bed rest and spine neutrality order be d/c'd to work with OT and PT? , received response yes & please ambulate patient Other position/activity restrictions: L3 kypho on 10/06 Subjective General Patient assessed for rehabilitation services?: Yes Family / Caregiver Present: No General Comment Comments: RN ok'd patient for OT session. Pt pleasant, cooperative and agreeable. Pt reports 3/10 pain in the back, ambulation and repositioning provided. Social/Functional History Social/Functional History Lives With: Alone Type of Home: Apartment Home Layout: One level Home Access: Level entry Bathroom Shower/Tub: Walk-in shower Bathroom Toilet: Handicap height Bathroom Equipment: Shower chair, Grab bars in shower, Grab bars around toilet Bathroom Accessibility: Accessible Home Equipment: Cane, Wheelchair-manual, Walker, standard, Rollator Receives Help From: (shearer helper for laundry, and dishes) ADL Assistance: Independent Homemaking Responsibilities: No Ambulation Assistance: Independent Transfer Assistance: Independent Active Cro: No Patient's Cro Info: medical transport Mode of Transportation: Cab 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 Leisure & Hobbies: Research Additional Comments: son can provide some, no one able to provide 24 hr support Objective Safety Devices Type of Devices: Gait belt;Nurse notified;Left in chair;Call light within reach;Chair alarm in place;Patient at risk for falls (left with transport) Restraints Restraints Initially in Place: No Balance Sitting: Intact (SBA grossly unsupported in chair for dynamic tasks, supervision unsupported with static; ~11-12 min) Standing: With support (CGA grossly standing with RW support, able to progress to uni/bilateral hand release from device to engage in dynamic tasks ~2-3 minutes) Transfer Training Transfer Training: Yes Overall Level of Assistance: Contact-guard assistance Interventions: Verbal cues;Safety awareness training (VCs for hand placement and use of RW appropriately) Sit to Stand: Contact-guard assistance Stand to Sit: Contact-guard assistance Gait Overall Level of Assistance: Contact-guard assistance Interventions: Safety awareness training;Verbal cues Assistive Device: Gait belt;Walker, rollator (recliner > household distances in hallway and back to recliner) ADL Feeding: Independent Grooming: Independent UE Bathing: Stand by assistance;Increased time to complete LE Bathing: Minimal assistance;Increased time to complete;Contact guard assistance UE Dressing: Increased time to complete;Stand by assistance LE Dressing: Increased time to complete;Contact guard assistance Toileting: Increased time to complete;Contact guard assistance Additional Comments: Patient donned pants seated in recliner using figure four method to reduce twisting at the waist. Pt able to don robe at SBA seated in recliner. Pt required CGA for balance to complete clothing mgmt over hips this date and complete tying of pants with B hand release from RW. Pt demonstrates balance deficits required balance assistance. Pt reports having a school occupational therapist at home able to complete LB ADL tasks to maintain precautions to reduce bending and twisting at the waist. Activity Tolerance Activity Tolerance: Patient tolerated evaluation without incident Bed mobility Bed Mobility Comments: pt up in chair on OT entry and in chair on OT exit Vision Vision: Impaired Vision Exceptions: Wears glasses at all times Hearing Hearing: Within functional limits Cognition Overall Cognitive Status: Exceptions Arousal/Alertness: Appropriate responses to stimuli Following Commands: Follows all commands without difficulty Attention Span: Difficulty dividing attention Memory: Appears intact Safety Judgement: Decreased awareness of need for safety Problem Solving: Decreased awareness of errors;Assistance required to implement solutions;Assistance required to correct errors made;Assistance required to identify errors made;Assistance required to generate solutions Initiation: Requires cues for some Sequencing: Does not require cues Cognition Comment: Pt required therapeutic listening and encouragement to progress d/t fear of falling Orientation Orientation Level: Oriented to person;Oriented to situation (unable to continue asking questions d/t patient receiving phone call) Education Given To: Patient Education Provided: Role of Therapy;Plan of Care;ADL Adaptive Strategies;Fall Prevention Strategies;Precautions;Transfer Training;Equipment;Energy Conservation Education Method: Demonstration;Verbal Barriers to Learning: None Education Outcome: Verbalized understanding;Continued education needed AM-PAC Score AM-[facility] Inpatient Daily Activity Raw Score: 20 (10/07/22 160) AM-[facility] Inpatient ADL T-Scale Score : 42.03 (10/07/22 160) ADL Inpatient CMS 0-100% Score: 38.32 (10/07/22 1604) ADL Inpatient CMS G-Code Modifier : CJ (10/07/221603) Goals Short Term Goals Time Frame for Short Term Goals: Patient will, by discharge Short Term Goal 1: demo UB ADLs independently Short Term Goal 2: demo LB ADLs at Mod I using AE PRN Short Term Goal 3: demo 100% adherence to bending and twisting precautions during functional tasks with 0 VCs Short Term Goal 4: demo functional transfers/mobility using LRD at Supervision to engage in ADLs safely Short Term Goal 5: demo 10+ min of dynamic standing tolerance at Supervision to engage in ADL/IADL tasks safely Short Term Goal 6: demo proper placement of RW during functional tasks with 0 VCs to reduce fall risk Therapy Time Individual Concurrent Group Co-treatment Time In 916 Time Out 956 Minutes 40 Timed Code Treatment Minutes: 24 Minutes Viv Barton OTR/L Images from the original note were not included. [facility] Office: [phone] Jason Baker DO, Demetri Johnson DO, Mehrdad Gibbs DO, Guy Grady DO, Mayte Boyer MD, Sarah Marroquin MD, Keren Dickson MD, Aletha Nuno MD, Landry Stahl MD, Lilibeth Umana MD, King Blackwell DO, Paul Scott MD, Liza Ward DO, Mary Lou Olvera MD, Abner Chisholm MD, Benjamin Baker DO, Janet Malcolm MD, Dejon Lemus MD, Roberto Payne DO, Shea Metcalf MD, Idalia Alexis MD, Audra Clark MD, Stephanie Lyon MD, Eren Turcios DO, Thee Richardson MD, Asuncion Benítez MD, Sondra Mcpherson, NEWSPAPER COPY EDITOR, Nisha Kaplan, NEWSPAPER COPY EDITOR, Tulio Corbett, NEWSPAPER COPY EDITOR, Tamiko Palafox, NEWSPAPER COPY EDITOR, Daksha Pierce, MARCIA, Jennifer Tadeo, NEWSPAPER COPY EDITOR, Emily Fonseca, NEWSPAPER COPY EDITOR, Karen Marin, NEWSPAPER COPY EDITOR, Idalmis Diaz, NEWSPAPER COPY EDITOR, Shawna Arredondo, NEWSPAPER COPY EDITOR, Chris Walker PA-C, Ramsey Almanza, DRY ROLLER, Lila Santa, NEWSPAPER COPY EDITOR, Buffy Groves, NEWSPAPER COPY EDITOR [facility] IN-PATIENT SERVICE [facility] Progress Note 10/07/2022 12:41 PM Name: Angella Olson Acct: [id number] Room: 0102/0102-01 Day: 3 Admit Date: 10/04/2022 1:40 AM PCP: CELIA Garcia CNP Code Status: Full Code Subjective: C/C: Chief Complaint Patient presents with Fall Back Pain Interval History Status: improved Pt seen post operatively. She is doing well. She has no complaints . She says pain is much improved after kyphoplasty. She is eating breakfast. Noted high blood sugars and will restart long acting insulin and increase as tolerated. BP reviewed. Slightly on lower side. I will hold Aldactone as potassium also high at 5.5. . Creatinine trending up. Needs monitoring. 1 liter iv fluid ordered by primary and she has been on iv fluids 100 ml/hr. Need to monitor. Hemoglobin 9.7. will monitor. She has liver cirrhosis and chronic thrombocytopenia. Platelets stable. Review of Systems: Constitutional: negative for chills, fevers, sweats Respiratory: negative for cough, dyspnea on exertion, shortness of breath, wheezing Cardiovascular: negative for chest pain, chest pressure/discomfort, lower extremity edema, palpitations Gastrointestinal: negative for abdominal pain, constipation, diarrhea, nausea, vomiting Neurological: negative for dizziness, headache +back pain Medications: Allergies: Allergies Allergen Reactions Latex Shortness Of Breath and Rash Clindamycin/Lincomycin Anaphylaxis Erythromycin Base Anaphylaxis Fentanyl Anaphylaxis Gatifloxacin Anaphylaxis Indomethacin Shortness Of Breath, Nausea Only and Palpitations Iodine Tincture [Iodine] Shortness Of Breath, Itching and Swelling Pcn [Penicillins] Shortness Of Breath, Itching and Swelling Shellfish-Derived Products Shortness Of Breath, Itching and Swelling Sulfa Antibiotics Anaphylaxis Tetracyclines & Related Shortness Of Breath, Itching and Swelling Lidocaine Swelling Nitrofuran Derivatives Hives Phenazopyridine Hcl Hives Phenazopyridine Current Meds: Scheduled Meds: insulin glargine 10 Units SubCUTAneous Daily rifAXIMin 550 mg Oral BID sodium chloride 1,000 mL IntraVENous Once heparin (porcine) 5,000 Units SubCUTAneous 3 times per day sodium chloride flush 5-40 mL IntraVENous 2 times per day polyethylene glycol 17 g Oral Daily ceFAZolin 2,000 mg IntraVENous Q8H divalproex 250 mg Oral TID FLUoxetine 40 mg Oral Daily lactulose 20 g Oral BID insulin lispro 0-16 Units SubCUTAneous TID insulin lispro 0-4 Units SubCUTAneous Nightly ipratropium-albuterol 1 ampule Inhalation Q4H MN atenolol 50 mg Oral Nightly furosemide 40 mg Oral Daily gabapentin 100 mg Oral BID [Held by provider] spironolactone 50 mg Oral Daily methocarbamol 750 mg Oral Q6H acetaminophen 1,000 mg Oral q8h melatonin 5 mg Oral Nightly Continuous Infusions: sodium chloride dextrose sodium chloride 100 mL/hr at 10/07/22 0634 PRN Meds: sodium chloride flush, sodium chloride, glucose, dextrose bolus OR dextrose bolus, glucagon (rDNA), dextrose, ondansetron OR ondansetron, oxyCODONE Data: Past Medical History: has a past medical history of Anxiety, Arthritis, Bipolar disorder (HCC), COPD (chronic obstructive pulmonary disease) (HCC), Depression, Fibromyalgia, Hypertension, Liver disease, Non-alcoholic fatty liver disease, Obesity, Pulmonary fibrosis (HCC), 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 Social History: reports that she quit smoking about 13 years ago. Her smoking use included cigarettes. She has a 30.00 pack-year smoking history. She has never used smokeless tobacco. She reports that she does not drink alcohol and does not use drugs. Family History: Family History Problem Relation Age of Onset Other Mother Interstitial Pulmonary fibrosis. Other Son stomach issues-rapid onset diarrhea Vitals: BP (!) 105/48 Pulse 80 Temp 97.9 F (36.6 C) (Axillary) Resp 16 LMP (LMP Unknown) SpO2 93% Temp (24hrs), Av.5 F (36.4 C), Min:97 F (36.1 C), Max:98 F (36.7 C) Recent Labs 10/06/22 2132 10/07/22 0010 10/07/22 0749 10/07/22 1157 POCGLU 386* 358* 253* 310* I/O (24Hr): Intake/Output Summary (Last 24 hours) at 10/07/2022 1241 Last data filed at 10/07/2022 0644 Gross per 24 hour Intake 1400 ml Output 510 ml Net 890 ml Labs: Hematology: Recent Labs 10/05/22 0433 10/05/22 0730 10/06/22 0408 10/07/22 0548 WBC 5.0 -- 4.6 3.6 RBC 4.00 -- 3.55* 3.38* HGB 11.3* -- 10.2* 9.6* HCT 37.7 -- 35.1* 31.1* MCV 94.3 -- 98.9 92.0 MCH 28.3 -- 28.7 28.4 MCHC 30.0 -- 29.1 30.9 RDW 18.1* -- 17.4* 17.8* PLT See Reflexed IPF Result -- 84* 86* MPV -- -- 10.3 10.4 INR -- 1.3 -- -- Chemistry: Recent Labs 10/05/22 0433 10/06/22 0408 10/07/22 0548 NA 134* 132* 133* K 5.3 5.0 5.5* CL 97* 96* 91* CO2 29 29 GLUCOSE 148* 161* 291* BUN CREATININE 1.22* 1.14* 1.37* ANIONGAP 8* 10 13 LABGLOM 48* 52* 42* CALCIUM 9.1 8.9 8.9 Recent Labs 10/05/22 0433 10/05/22 0511 10/05/22 0730 10/05/22 0924 10/06/22 1334 10/06/22 1642 10/06/22 2132 10/07/22 0010 10/07/22 0749 10/07/22 1157 PROT 7.2 -- -- -- -- -- -- -- -- -- LABALBU 3.2* -- -- -- -- -- -- -- -- -- AST 24 -- -- -- -- -- -- -- -- -- ALT 11 -- -- -- -- -- -- -- -- -- ALKPHOS 86 -- -- -- -- -- -- -- -- -- BILITOT 0.5 -- -- -- -- -- -- -- -- -- BILIDIR 0.2 -- -- -- -- -- -- -- -- -- AMMONIA -- -- 37 -- -- -- -- -- -- -- POCGLU -- < > -- < > 157* 229* 386* 358* 253* 310* < > = values in this interval not displayed. ABG: Lab Results Component Value Date/Time PHART 7.329 08/14/2021 09:12 AM HLA5WPJ 50.8 08/14/2021 09:12 AM PO2ART 85.6 08/14/2021 09:12 AM ZXV3UNT 26.1 08/14/2021 09:12 AM NBEA 0.6 08/14/2021 09:12 AM PBEA NOT REPORTED 08/14/2021 09:12 AM [id number] 95.7 08/14/2021 09:12 AM FIO2 NOT REPORTED 08/14/2021 09:12 AM Lab Results Component Value Date/Time SPECIAL 20 ML LFTF OREARM 09/06/2022 08:50 PM Lab Results Component Value Date/Time CULTURE NO GROWTH 5 DAYS 09/06/2022 08:50 PM Radiology: XR PELVIS (1-2 VIEWS) Result Date: 10/03/2022 No acute osseous abnormality. XR SHOULDER RIGHT (MIN 2 VIEWS) Result Date: 10/04/2022 No acute osseous abnormality. XR FEMUR LEFT (MIN 2 VIEWS) Result Date: 10/04/2022 No acute osseous abnormality. XR FEMUR RIGHT (MIN 2 VIEWS) Result Date: 10/04/2022 No acute osseous abnormality. CT Head WO Contrast Result Date: 10/03/2022 No acute intracranial abnormality. CT CERVICAL SPINE WO CONTRAST Result Date: 10/03/2022 No acute abnormality of the cervical spine. Anterior cervical fusion from C5 through C7 CT THORACIC SPINE WO CONTRAST Result Date: 10/03/[address] of the thoracic spine. CT LUMBAR SPINE WO CONTRAST Result Date: 10/03/2022 Acute mild compression fracture of L3. MRI LUMBAR SPINE WO CONTRAST Result Date: 10/04/2022 Acute superior endplate fracture of L3, resulting in minimal loss of vertebral body height. RECOMMENDATIONS: Unavailable XR CHEST PORTABLE Result Date: 10/03/2022 Mild edema or interstitial lung disease. Bilateral subsegmental atelectasis. Physical Examination: General appearance: alert, cooperative and no distress Mental Status: oriented to person, place and time and normal affect Lungs: clear to auscultation bilaterally, normal effort Heart: regular rate and rhythm, no murmur Abdomen: soft, nontender, nondistended, normal bowel sounds, no masses, hepatomegaly, splenomegaly Extremities: no edema, redness, tenderness in the calves Skin: no gross lesions, rashes, induration Assessment: Hospital Problems Last Modified POA * (Principal) Closed compression fracture of third lumbar vertebra (HCC) 10/04/2022 Yes Recurrent major depressive disorder, in partial remission (HCC) 10/06/2022 Yes Non-alcoholic fatty liver disease 10/06/2022 Yes Bipolar disorder (HCC) 10/06/2022 Yes Plan: L3 compression fracture- S/p Kyphoplasty with improvement in pain. Working with PT. Plan for rehab HTN- BP on lower side. Hold Aldactone as Potassium also high. Hyperkalemia- secondary to Aldactone and SUAD. Repeat level after hydration and holding aldcatone. May need Lokelma. IDDM - blood sugars uncontrolled. Restart long acting insulin as she is tolerating diet. SUAD- hold aldactone. Avoid hypotension. Monitor. Receiving fluids Liver cirrhosis - continue Lactulose, lasix. Restart Rifaximin. Hold aldactone for now. Hyponatremia - multifactorial. Stable. Continue to monitor. Stop continuous IV fluids if receiving fluid bolus. Major depression/bipolar. Continue meds Thrombocytopenia- stable. Sec to cirrhosis. Monitor. Stop heparin if platelets below 50K DVT prophylaxis- on heparin sq Shea Metcalf MD 10/07/2022 12:41 PM Physical Therapy Facility/Department: [address] [facility] Physical Therapy Initial Assessment Name: Angella Olson : 1955 Date of Service: 10/07/2022 Chief Complaint Patient presents with Fall Back Pain Discharge Recommendations: Further therapy recommended at discharge.The patient should be able to tolerate at least 3 hours of therapy per day over 5 days or 15 hours over 7 days. This patient may benefit from a Physical Medicine and Rehab consult. PT Equipment Recommendations Equipment Needed: No Patient Diagnosis(es): The primary encounter diagnosis was Closed compression fracture of L3 vertebra, initial encounter ([facility]). A diagnosis of Fall from standing, initial encounter was also pertinent to this visit. 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 Past Surgical History: has a past surgical history that includes back surgery; Eye surgery; Abdomen surgery; section (1984); other surgical history; Colonoscopy; Upper gastrointestinal endoscopy; Mohs surgery (Left, 12/2019); Pain management procedure (Bilateral, 11/26/2021); Pain management procedure (Bilateral, 01/21/2022); other surgical history; other surgical history (Right); Pain management procedure (Right, 03/18/2022); Pain management procedure (N/A, 06/10/2022); Esophagogastroduodenoscopy (10/2021); Esophagogastroduodenoscopy (06/2021); Kyphosis surgery (10/06/2022); and Spine surgery (N/A, 10/06/2022). Assessment Body Structures, Functions, Activity Limitations Requiring Skilled Therapeutic Intervention: Decreased functional mobility ;Decreased ROM;Decreased ADL status;Decreased body mechanics;Decreased strength;Decreased cognition;Decreased endurance;Decreased balance;Decreased high-level IADLs;Decreased fine motor control;Decreased coordination Assessment: pt ambulates 50' x 2 with CGA and RW with chair follow. During evaluation pt exhibits tremors on both LE and UE as well as spastic response to MMT being unable to lower LLE after testing hip flexion in seated. In additon pt exhibited additonal spastic responses during MMT on both LE that were able to be corrected with verbal cues. It was difficult to discern if this was an actual spastic response or a cognitive issue d/t pt reports feeling anxious during evaluation. pt also demonstrated sustained clonus that is non velocity dependent and occurs at end range of DF. At this time aggressive skilled PT is needed to promote return to baseline function. Therapy Prognosis: Good Decision Making: High Complexity Requires PT Follow-Up: Yes Activity Tolerance Activity Tolerance: Patient tolerated evaluation without incident Plan Physcial Therapy Plan General Plan: 6-7 times per week Current Treatment Recommendations: Strengthening, ROM, Balance training, Functional mobility training, Transfer training, ADL/Self-care training, Endurance training, Gait training, Stair training, Neuromuscular re-education, Cognitive/Perceptual training, Home exercise program, Safety education & training, Patient/Caregiver education & training, Equipment evaluation, education, & procurement, Therapeutic activities Safety Devices Type of Devices: Gait belt, Nurse notified, Left in chair, Call light within reach, Chair alarm in place, Patient at risk for falls (left with transport) Restraints Restraints Initially in Place: No Restrictions Position Activity Restriction Spinal Precautions: No lifting greater than 5 pounds. Limit bending and twisting at the waist; Kacy Friedman 10/07 can the strict bed rest and spine neutrality order be d/c'd to work with OT and PT? , received response yes & please ambulate patient Other position/activity restrictions: L3 kypho on 10/06 Subjective Pain: 3/10 pain at surgical site General Chart Reviewed: Yes Patient assessed for rehabilitation services?: Yes Family / Caregiver Present: No Follows Commands: Within Functional Limits General Comment Comments: per RN pt okay for PT and pt agreeable to PT session. per perfect serve pt okay to ambulate and not maintain spinal neutrality ~ demetrio raisa Subjective Subjective: pt reports feeling good with 3/10 pain at surgical site. pt states the stopped taking baclofen d/t it being unprescribed by doctor Social/Functional History Social/Functional History Lives With: Alone Type of Home: Apartment Home Layout: One level Home Access: Level entry Bathroom Shower/Tub: Walk-in shower Bathroom Toilet: Handicap height Bathroom Equipment: Shower chair, Grab bars in shower, Grab bars around toilet Bathroom Accessibility: Accessible Home Equipment: Cane, Wheelchair-manual, Walker, standard, Rollator Receives Help From: (shearer helper for laundry, and dishes) ADL Assistance: Independent Homemaking Responsibilities: No Ambulation Assistance: Independent Transfer Assistance: Independent Active Cro: No Patient's Cro Info: medical transport Mode of Transportation: Cab 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 Leisure & Hobbies: Research Additional Comments: son can provide some, no one able to provide 24 hr support Vision/Hearing Vision Vision: Impaired Vision Exceptions: Wears glasses at all times Hearing Hearing: Within functional limits Cognition Cognition Overall Cognitive Status: Exceptions Arousal/Alertness: Appropriate responses to stimuli Following Commands: Follows all commands without difficulty Attention Span: Difficulty dividing attention Memory: Appears intact Safety Judgement: Decreased awareness of need for safety Problem Solving: Decreased awareness of errors;Assistance required to implement solutions;Assistance required to correct errors made;Assistance required to identify errors made;Assistance required to generate solutions Cognition Comment: pt demonstrates mod to severe signs and symptoms associtated with anxitey. pt states they previously took medication but do not any more. pt requires verbale cues to maintain limited bending at hip. pt also demonstrates difficulty dividing attention with multiple people present in the room Objective O2 Device: Nasal cannula Comment: pt taken of 3L of O2 d/t sat at 97% on PT entry and pt placed back on O2 d/t desat to 88 and returns to 96% pt demonstrates low BP at end of PT session that is non symptomatic 108/53 RN notified and pt being taken to transport at PT exit Observation/Palpation Posture: Good Gross Assessment AROM: Within functional limits PROM: Within functional limits Strength: Generally decreased, functional Coordination: Generally decreased, functional Tone: Normal Sensation: (pt stats no N/T) Strength RLE Strength RLE: Exception 4/5 Comment: Strength LLE Strength LLE: WFL 4+/5 Balance Sitting: Intact (SBA grossly unsupported in chair for dynamic tasks, supervision unsupported with static; ~11-12 min) Standing: With support (CGA grossly standing with RW support, able to progress to uni/bilateral hand release from device to engage in dynamic tasks ~2-3 minutes) Transfer Training Transfer Training: Yes Overall Level of Assistance: Contact-guard assistance Interventions: Verbal cues;Safety awareness training (VCs for hand placement and use of RW appropriately) Sit to Stand: Contact-guard assistance Stand to Sit: Contact-guard assistance Gait Overall Level of Assistance: Contact-guard assistance Interventions: Safety awareness training;Verbal cues Assistive Device: Gait belt;Walker, rollator (recliner > household distances in hallway and back to recliner) Bed mobility Bed Mobility Comments: pt up in chair on PT entry and in chair on PT exit Transfers Sit to Stand: Contact guard assistance Stand to Sit: Contact guard assistance Comment: pt completes STS with CGA for pt safety. pt stands for approx 2-3 min while completing ADLs with OT before requiring a sitting break d/t fatiuge. Ambulation Surface: Level tile Device: Rolling Walker Assistance: Contact guard assistance Quality of Gait: fair Gait Deviations: Slow Kayla;Decreased step length;Decreased step height Distance: 50'x2 Comments: pt ambulates 50'x2 with RW, CGA, and Chair follow. Gait is steady with no noted loss of balance. pt did require verbal cue to avoid running into hospital cart wheel on R hand side. Balance Sitting - Static: Good Sitting - Dynamic: Fair;+ Standing - Static: Good Standing - Dynamic: Fair Comments: pt able to complete ADLs while standing with no UE and no LOB. pt does require RW for balance with ambulation AM-PAC Score AM-PAC Inpatient Mobility Raw Score : 18 (10/07/22 1154) AM-PAC Inpatient T-Scale Score : 43.63 (10/07/22 1154) Mobility Inpatient CMS 0-100% Score: 46.58 (10/07/22 1154) Mobility Inpatient CMS G-Code Modifier : CK (10/07/22 115) Goals Short Term Goals Time Frame for Short Term Goals: 14 visits Short Term Goal 1: pt will ambulate 200' with RW and CGA Short Term Goal 2: pt will be IND in bed to chair transfers Short Term Goal 3: pt will be IND in bed mobility while maintaing spinal precautions 100% of time Short Term Goal 4: pt will demonstrate dynamic balance to at least good Education Patient Education Education Given To: Patient;Family Education Provided: Role of Therapy;Plan of Care;Precautions;Transfer Training;Fall Prevention Strategies Education Provided Comments: pt educated on PT purpose and POC. In additon pt educated on use of RW for ambulation and transfers. Education Method: Verbal;Demonstration Barriers to Learning: Cognition Education Outcome: Verbalized understanding;Unable to demonstrate understanding;Continued education needed Therapy Time Individual Concurrent Group Co-treatment Time In 09 Time Out 0959 Minutes 42 Timed Code Treatment Minutes: 8 Minutes Mart Lema Evaluation/treatment performed by Student PT under the supervision of co-signing PT who agrees with all evaluation/treatment and documentation. Neurosurgery ISAAC/Resident Daily Progress Note CC: Chief Complaint Patient presents with Fall Back Pain 10/07/2022 11:17 AM Chart reviewed. No acute events overnight. No new complaints. Doing well reports significant improvement in pain after kyphoplasty, minimal if any post op pain Vitals: 10/07/22 0208 10/07/22 0415 10/07/22 0723 10/07/22 0812 BP: 114/67 119/65 Pulse: 66 68 60 Resp: 20 15 17 Temp: 97.9 F (36.6 C) 98 F (36.7 C) TempSrc: Oral Oral SpO2: 95% 93% 97% PE: AOx3 Motor L deltoid 5/5; R deltoid 5/5 L biceps 5/5; R biceps 5/5 L triceps 5/5; R triceps 5/5 L wrist extension 5/5; R wrist extension 5/5 L intrinsics 5/5; R intrinsics 5/5 L iliopsoas 5/5 , R iliopsoas 5/5 L quadriceps 5/5; R quadriceps 5/5 L Dorsiflexion 5/5; R dorsiflexion 5/5 L Plantarflexion 5/5; R plantarflexion 5/5 L EHL 5/5; R EHL 5/5 Sensation: intact Incision: ulises CDI Lab Results Component Value Date WBC 3.6 10/07/2022 HGB 9.6 (L) 10/07/2022 HCT 31.1 (L) 10/07/2022 PLT 86 (L) 10/07/2022 CHOL 100 12/03/2020 TRIG 160 (H) 12/03/2020 HDL 44 12/03/2020 ALT 11 10/05/2022 AST 24 10/05/2022 NA 133 (L) 10/07/2022 K 5.5 (H) 10/07/2022 CL 91 (L) 10/07/2022 CREATININE 1.37 (H) 10/07/2022 BUN 23 10/07/2022 CO2 29 10/07/2022 TSH 1.28 08/07/2022 INR 1.3 10/05/2022 LABA1C 7.2 06/17/2022 LABMICR 16 12/03/2020 A/P 67 y.o. female who presents with acute L3 fracture s/p Kyphoplasty PT and OT as needed Lovenox for DVT prophylaxis Encourage Is Bowel regimen Ok to be discharged from a neurosurgery standpoint- patient can follow up in the office in 2 weeks for post op wound check Please contact neurosurgery with any changes in patients neurologic status. Demetrio Kline CNP 10/07/22 11:17 AM [facility] Inpatient Progress Note [facility] 10/07/2022 9:29 AM Angella Olson [id number] Time spent with Patient: 0 minutes Presenting Patient Report: Unable to meet with patient at this time due to medical procedure: physical therapy Will attempt again later this date. Images from the original note were not included. PROGRESS NOTE PATIENT NAME: Angella Olson DATE: 10/07/2022 SURGEON: Richard PRIMARY CARE PHYSICIAN: CELIA Garcia CNP HD: # 3 ASSESSMENT Patient Active Problem List Diagnosis Chronic back pain Stage 3 chronic kidney disease (HCC) Essential hypertension Bipolar disorder (HCC) Type 2 diabetes mellitus, with long-term current use of insulin (HCC) Obesity (BMI 30-39.9) Iron deficiency anemia Fall at home, initial encounter Frequency of urination Mixed incontinence Nocturia Positive FIT (fecal immunochemical test) Dyslipidemia Gastroesophageal reflux disease Cirrhosis of liver without ascites (HCC) COPD (chronic obstructive pulmonary disease) (HCC) Sepsis secondary to UTI (HCC) Moderate malnutrition (HCC) Hepatic encephalopathy SUAD (acute kidney injury) (HCC) prerenal Closed compression fracture of third lumbar vertebra (HCC) Recurrent major depressive disorder, in partial remission (HCC) Non-alcoholic fatty liver disease MEDICAL DECISION MAKING AND PLAN L3 compression fracture after fall from standing height -POD1 from L3 kyphoplasty with neurosurgery -Hgb stable at 9.6 this AM -MMPT -PT/OT -Follow-up x-ray lumbar spine post kyphoplasty History of type 2 diabetes on insulin -High-dose sliding scale -Carb controlled diet Dispo planning, SNF referrals given SUBJECTIVE Angella Olson was evaluated at bedside. Patient is awake and alert this morning. AAOx3. Pain is currently controlled. Patient states she has not eaten much. Patient to work with PT/OT today. OBJECTIVE VITALS: Temp: Temp: 98 F (36.7 C)Temp Av.5 F (36.4 C) Min: 97 F (36.1 C) Max: 98 F (36.7 C) BP Systolic (24hrs), Av , Min:83 , Max:142 Diastolic (24hrs), Av, Min:53, Max:117 Pulse Pulse Av.9 Min: 60 Max: 89 Resp Resp Av.3 Min: 11 Max: 25 Pulse ox SpO2 Av.1 % Min: 83 % Max: 98 % GENERAL: awake, alert, no acute distress NEURO: AAO x3 HEENT: Normocephalic, atraumatic : Purewick in place LUNGS: No respiratory distress, on room air HEART: Normal rate and regular rhythm ABDOMEN: Soft, nontender, nondistended EXTREMITY: No lower extremity edema I/O last 3 completed shifts: In: 1400 [I.V.:1400] Out: 1210 [Urine:1200; Blood:10] Drain/tube output: In: 1400 [I.V.:1400] Out: 510 [Urine:500] LAB: CBC: Recent Labs 10/05/22 0433 10/06/22 0408 10/07/22 0548 WBC 5.0 4.6 3.6 HGB 11.3* 10.2* 9.6* HCT 37.7 35.1* 31.1* MCV 94.3 98.9 92.0 PLT See Reflexed IPF Result 84* 86* BMP: Recent Labs 10/05/2243210/06/22 0408 10/07/22 0548 NA 134* 132* 133* K 5.3 5.0 5.5* CL 97* 96* 91* CO2 29 26 29 BUN 18 17 23 CREATININE 1.22* 1.14* 1.37* GLUCOSE 148* 161* 291* COAGS: Recent Labs 10/05/22 04310/05/22 0730 PROT 7.2 -- INR -- 1.3 RADIOLOGY: FLUORO FOR SURGICAL PROCEDURES Final Result MRI LUMBAR SPINE WO CONTRAST Final Result Acute superior endplate fracture of L3, resulting in minimal loss of vertebral body height. RECOMMENDATIONS: Unavailable XR SHOULDER RIGHT (MIN 2 VIEWS) Final Result No acute osseous abnormality. XR FEMUR RIGHT (MIN 2 VIEWS) Final Result No acute osseous abnormality. XR FEMUR LEFT (MIN 2 VIEWS) Final Result No acute osseous abnormality. XR LUMBAR SPINE (2-3 VIEWS) (Results Pending) Jae Kuhn MD 10/07/22, 11:51 AM Associated attestation - Milad Corbett MD - 10/07/2022 9:16 PM EST I personally evaluated the patient and directed the medical decision making with Resident/ISAAC after the physical/radiologic exam and laboratory values were reviewed and confirmed. ANM Images from the original note were not included. POST OP NOTE SUBJECTIVE Pt s/p L3 kyphoplasty with neurosurgery. Patient is awake and alert. She is a little confused. Patient states I am peeing onto myself and am wet . However, purewick is in place and her brief is dry. OBJECTIVE VITALS: BP (!) 98/57 Pulse 83 Temp 97.9 F (36.6 C) Resp 22 LMP (LMP Unknown) SpO2 93% GENERAL: Awake and alert. No acute distress CARDIOVASCULAR: Regular Rate and Rhythm LUNGS: No respiratory distress ABDOMEN: Abdomen soft, non-tender, non-distended INCISION: Incision clean/dry/intact ASSESSMENT 1. POD# 0 s/p L3 kyphoplasty PLAN 1. Pain management-MMPT 2. DVT proph-start 10/07 3. Regular diet 4. PT/OT 5. CBC/BMP in AM Jae Kuhn MD Trauma/Surgery Service 10/06/2022 at 5:29 PM Images from the original note were not included. [facility] Office: [phone] Jason Baker DO, Demetri Johnson DO, Mehrdad Gibbs DO, Guy Grady DO, Mayte Boyer MD, Sarah Marroquin MD, Keren Dickson MD, Aletha Nuno MD, Landry Stahl MD, Lilibeth Umana MD, King Blackwell DO, Paul Scott MD, Liza Ward DO, Mary Lou Olvera MD, Abner Chisholm MD, Benjamin Baker DO, Janet Malcolm MD, Dejon Lemus MD, Roberto Payne DO, Shea Metcalf MD, Idalia Alexis MD, Audra Clark MD, Stephanie Lyon MD, Eren Turcios DO, Thee Richardson MD, Asuncion Benítez MD, Sondra Mcpherson CNP, Nisha Kaplan CNP, Tulio Corbett CNP, Tamiko Palafox CNP, Daksha Pierce, MARCIA, Jennifer Tadeo, MABEL, Emily Fonseca, MABEL, Karen Marin, MABEL, Idalmis Diaz, NEWSPAPER COPY EDITOR, Shawna Arredondo, MABEL, Chris Walker PA-C, Ramsey Almanza, JENNIFER, Lila Santa, MABEL, Buffy Groves, NEWSPAPER COPY EDITOR [facility] IN-PATIENT SERVICE [facility] Progress Note 10/06/2022 3:45 PM Name: Angella Olson Acct: [id number] Room: 01009-17 Day: 2 Admit Date: 10/04/2022 1:40 AM PCP: CELIA Garcia CNP Code Status: Full Code Subjective: C/C: Chief Complaint Patient presents with Fall Back Pain Interval History Status: not changed. Pt seen post operatively. She is doing well. She has no complaints currently. She slept well overnight and is eating and drinking. No episodes of delirium. Review of Systems: Constitutional: negative for chills, fevers, sweats Respiratory: negative for cough, dyspnea on exertion, shortness of breath, wheezing Cardiovascular: negative for chest pain, chest pressure/discomfort, lower extremity edema, palpitations Gastrointestinal: negative for abdominal pain, constipation, diarrhea, nausea, vomiting Neurological: negative for dizziness, headache +back pain Medications: Allergies: Allergies Allergen Reactions Latex Shortness Of Breath and Rash Clindamycin/Lincomycin Anaphylaxis Erythromycin Base Anaphylaxis Fentanyl Anaphylaxis Gatifloxacin Anaphylaxis Indomethacin Shortness Of Breath, Nausea Only and Palpitations Iodine Tincture [Iodine] Shortness Of Breath, Itching and Swelling Pcn [Penicillins] Shortness Of Breath, Itching and Swelling Shellfish-Derived Products Shortness Of Breath, Itching and Swelling Sulfa Antibiotics Anaphylaxis Tetracyclines & Related Shortness Of Breath, Itching and Swelling Lidocaine Swelling Nitrofuran Derivatives Hives Phenazopyridine Hcl Hives Phenazopyridine Current Meds: Scheduled Meds: [Oct] divalproex 250 mg Oral TID [Oct] FLUoxetine 40 mg Oral Daily [Oct] lactulose 20 g Oral BID [Oct] insulin lispro 0-16 Units SubCUTAneous TID WC [Oct] insulin lispro 0-4 Units SubCUTAneous Nightly [Oct] ipratropium-albuterol 1 ampule Inhalation Q4H MN atenolol 50 mg Oral Nightly furosemide 40 mg Oral Daily gabapentin 100 mg Oral BID spironolactone 50 mg Oral Daily methocarbamol 750 mg Oral Q6H acetaminophen 1,000 mg Oral q8h [OCT Hold] melatonin 5 mg Oral Nightly Continuous Infusions: [OCT Hold] dextrose [OCT Hold] sodium chloride 100 mL/hr at 10/05/22 2233 PRN Meds: [OCT Hold] glucose, [OCT Hold] dextrose bolus OR [OCT Hold] dextrose bolus, [OCT Hold] glucagon (rDNA), [OCT Hold] dextrose, ondansetron OR ondansetron, oxyCODONE Data: Past Medical History: has a past medical history of Anxiety, Arthritis, Bipolar disorder (HCC), COPD (chronic obstructive pulmonary disease) (HCC), Depression, Fibromyalgia, Hypertension, Liver disease, Non-alcoholic fatty liver disease, Obesity, Pulmonary fibrosis (HCC), 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 Social History: reports that she quit smoking about 13 years ago. Her smoking use included cigarettes. She has a 30.00 pack-year smoking history. She has never used smokeless tobacco. She reports that she does not drink alcohol and does not use drugs. Family History: Family History Problem Relation Age of Onset Other Mother Interstitial Pulmonary fibrosis. Other Son stomach issues-rapid onset diarrhea Vitals: BP (!) 98/57 Pulse 83 Temp 97.9 F (36.6 C) Resp 22 LMP (LMP Unknown) SpO2 93% Temp (24hrs), Av.7 F (36.5 C), Min:97.1 F (36.2 C), Max:98.8 F (37.1 C) Recent Labs 10/05/22 2255 10/06/22 0750 10/06/22 1005 10/06/22 1334 POCGLU 240* 146* 149* 157* I/O (24Hr): Intake/Output Summary (Last 24 hours) at 10/06/2022 1545 Last data filed at 10/06/2022 1451 Gross per 24 hour Intake 1977.43 ml Output 710 ml Net 1267.43 ml Labs: Hematology: Recent Labs 02/184510/03/22202110/04/22 0654 10/05/22 0433 10/05/22 0730 10/06/22 0408 WBC 4.1 -- 4.8 5.0 -- 4.6 RBC 3.73* -- 3.60* 4.00 -- 3.55* HGB 10.7* -- 10.3* 11.3* -- 10.2* HCT 34.7* -- 35.5* 37.7 -- 35.1* MCV 93.0 -- 98.6 94.3 -- 98.9 MCH 28.7 -- 28.6 28.3 -- 28.7 MCHC 30.8 -- 29.0 30.0 -- 29.1 RDW 18.4* -- 18.3* 18.1* -- 17.4* PLT 104* -- 97* See Reflexed IPF Result -- 84* MPV 10.4 -- 10.2 -- -- 10.3 INR -- 1.1 -- -- 1.3 -- Chemistry: Recent Labs 10/03/22184510/03/22203110/04/22 0654 10/05/22 0433 10/06/22 0408 NA 131* -- 133* 134* 132* K 5.3 -- 5.0 5.3 5.0 CL 94* -- 100 97* 96* CO2 27 -- 21 29 26 GLUCOSE 120* < > 149* 148* 161* BUN 23 -- 21 18 17 CREATININE 1.59* -- 1.18* 1.22* 1.14* MG 1.1* -- -- -- -- ANIONGAP 10 -- 12 8* 10 LABGLOM 35* -- 50* 48* 52* CALCIUM 9.1 -- 8.7 9.1 8.9 < > = values in this interval not displayed. Recent Labs 10/05/22 0433 10/05/22 0511 10/05/22 0730 10/05/22 0924 10/05/22 1638 10/05/22 1945 10/05/22 2255 10/06/22 0750 10/06/22 1005 10/06/22 1334 PROT 7.2 -- -- -- -- -- -- -- -- -- LABALBU 3.2* -- -- -- -- -- -- -- -- -- AST 24 -- -- -- -- -- -- -- -- -- ALT 11 -- -- -- -- -- -- -- -- -- ALKPHOS 86 -- -- -- -- -- -- -- -- -- BILITOT 0.5 -- -- -- -- -- -- -- -- -- BILIDIR 0.2 -- -- -- -- -- -- -- -- -- AMMONIA -- -- 37 -- -- -- -- -- -- -- POCGLU -- < > -- < > 213* 327* 240* 146* 149* 157* < > = values in this interval not displayed. ABG: Lab Results Component Value Date/Time PHART 7.329 08/14/2021 09:12 AM [id number] 50.8 08/14/2021 09:12 AM PO2ART 85.6 08/14/2021 09:12 AM [id number] 26.1 08/14/2021 09:12 AM NBEA 0.6 08/14/2021 09:12 AM PBEA NOT REPORTED 08/14/2021 09:12 AM [id number] 95.7 08/14/2021 09:12 AM FIO2 NOT REPORTED 08/14/2021 09:12 AM Lab Results Component Value Date/Time SPECIAL 20 ML LFTF OREARM 09/06/2022 08:50 PM Lab Results Component Value Date/Time CULTURE NO GROWTH 5 DAYS 09/06/2022 08:50 PM Radiology: XR PELVIS (1-2 VIEWS) Result Date: 10/03/2022 No acute osseous abnormality. XR SHOULDER RIGHT (MIN 2 VIEWS) Result Date: 10/04/2022 No acute osseous abnormality. XR FEMUR LEFT (MIN 2 VIEWS) Result Date: 10/04/2022 No acute osseous abnormality. XR FEMUR RIGHT (MIN 2 VIEWS) Result Date: 10/04/2022 No acute osseous abnormality. CT Head WO Contrast Result Date: 10/03/2022 No acute intracranial abnormality. CT CERVICAL SPINE WO CONTRAST Result Date: 10/03/2022 No acute abnormality of the cervical spine. Anterior cervical fusion from C5 through C7 CT THORACIC SPINE WO CONTRAST Result Date: 10/03/[address] of the thoracic spine. CT LUMBAR SPINE WO CONTRAST Result Date: 10/03/2022 Acute mild compression fracture of L3. MRI LUMBAR SPINE WO CONTRAST Result Date: 10/04/2022 Acute superior endplate fracture of L3, resulting in minimal loss of vertebral body height. RECOMMENDATIONS: Unavailable XR CHEST PORTABLE Result Date: 10/03/2022 Mild edema or interstitial lung disease. Bilateral subsegmental atelectasis. Physical Examination: General appearance: alert, cooperative and no distress Mental Status: oriented to person, place and time and normal affect Lungs: clear to auscultation bilaterally, normal effort Heart: regular rate and rhythm, no murmur Abdomen: soft, nontender, nondistended, normal bowel sounds, no masses, hepatomegaly, splenomegaly Extremities: no edema, redness, tenderness in the calves Skin: no gross lesions, rashes, induration Assessment: Hospital Problems Last Modified POA * (Principal) Closed compression fracture of third lumbar vertebra (HCC) 10/04/2022 Yes Plan: Depression: PHQ9: 5. continue home fluoxetine Bipolar disorder: Continue Depakote 250 mg BID Delirium precautions Please ensure appropriate day/night wake/sleep cycles using the following methods: ensure blinds open during the day and closed at night. Ensure TV or other form of stimulus is on during the day and off at night. Ensure lights are on during the day , off at night. Make sure patient has hearing aids/glasses. Ensure team information is written clearly on patient board. Arrange for family to visit as frequently as possible. Reorient patient as frequently as possible Monitor for urinary retention, aspiration events and falls. Minimize night time awakenings, middle of the night med dosing, lab draws between 12am and 6 am if medically safe If patient is having difficulty sleeping can use Melatonin 6 mg QHS If having behavioral disturbance and poses a harm to self or others can try oral low dose Seroquel or IM zyprexa if Qtc stable. Avoid physical restraints is possible. Avoid benzodiazepines for delirium. Avoid anticholinergics. Recommend Dietary consult to help optimize nutrition PTOT Monitor for urinary retention. Hyponatremia Stop IVF recommend NAFLD with HE (per patient) : Continue home Lactulose titrate to 3 loose BM.. Thrombocytopenia likely due to cirrhosis: Monitor-management per primary Hold IVF if patient eating and drinking -will defer to primary Liza Ward DO 10/06/2022 3:45 PM Neurosurgery Post op Progress Note SUBJECTIVE: Status post L3 kyphoplasty. She is seen while in recovery. She states she feels better since her surgery. She complains of minimal lower back pain. He has no nausea, emesis or headache. Was all extremities at will. She answers all questions posed to her. OBJECTIVE Physical exam VITALS: Vitals: 10/06/22 1300 BP: 83/71 Pulse: 85 Resp: 12 Temp: 97.2 F (36.2 C) SpO2: (!) 83% INTAKE: Intake/Output Summary (Last 24 hours) at 10/06/2022 1307 Last data filed at 10/06/2022 1255 Gross per 24 hour Intake 1677.43 ml Output 1610 ml Net 67.43 ml URINARY CATHETER OUTPUT ([place]): No [place] catheter. DRAIN/TUBE OUTPUT: No drains. No evidence of DVT seen on physical exam. Negative Edmar's sign. No cords or calf tenderness. No significant calf/ankle edema. Neurological exam reveals Awake and alert, Responds to voice, and Responds to tactile stimuli alert, oriented x3, affect appropriate, no focal neurological deficits, moves all extremities well, and no involuntary movements alert, oriented, normal speech, no focal findings or movement disorder noted, screening mental status exam normal, neck supple without rigidity, cranial nerves II through XII intact. the upper and lower extremities no muscle wasting or atrophy, no fasciculations noted, no involuntary movements, no abnormalities of position, and normal resting muscle tone Wound Post op wound: posterior lumbar spine well approximated incision, clean, dry, and no drainage Closed w/ dermabond with Monocryl sutures. Data LABS: Lab Results Component Value Date WBC 4.6 10/06/2022 HGB 10.2 (L) 10/06/2022 HCT 35.1 (L) 10/06/2022 MCV 98.9 10/06/2022 PLT 84 (L) 10/06/2022 Lab Results Component Value Date NA 132 (L) 10/06/2022 K 5.0 10/06/2022 CL 96 (L) 10/06/2022 CO2 26 10/06/2022 Lab Results Component Value Date BUN 17 10/06/2022 Lab Results Component Value Date CREATININE 1.14 (H) 10/06/2022 ASSESSMENT AND PLAN 1. Activity as tolerated. Consults for physical therapy and Occupational Therapy. 2. Continue antibiotics for 24 more hours. Appropriate analgesics for pain. 3. Obtain standing radiographs AP lateral lumbar spine. 4. No lifting greater than 5 pounds. Limit bending and twisting at the waist. 5. We will continue to follow from the neuro surgery standpoint. Neurosurgery ISAAC/Resident Daily Progress Note CC: Chief Complaint Patient presents with Fall Back Pain 10/06/2022 11:40 AM Chart reviewed. No acute events overnight. No new complaints. Reporting lumbar back pain still, NPO since midnight, denies chest pain and SOB, on 4L NC now wears 2L at home as needed Vitals: 10/06/22 0417 10/06/22 0745 10/06/22 0840 10/06/22 0948 BP: 119/73 (!) 104/58 99/68 Pulse: 62 59 65 Resp: 13 12 14 16 Temp: 98.8 F (37.1 C) 97.1 F (36.2 C) 97.3 F (36.3 C) TempSrc: Oral Oral Temporal SpO2: 97% 96% 96% PE: AOx3 Motor L deltoid 5/5; R deltoid 5/5 L biceps 5/5; R biceps 5/5 L triceps 5/5; R triceps 5/5 L wrist extension 5/5; R wrist extension 5/5 L intrinsics 5/5; R intrinsics 5/5 L iliopsoas 5/5 , R iliopsoas 5/5 L quadriceps 5/5; R quadriceps 5/5 L Dorsiflexion 5/5; R dorsiflexion 5/5 L Plantarflexion 5/5; R plantarflexion 5/5 L EHL 5/5; R EHL 5/5 Sensation: intact Lab Results Component Value Date WBC 4.6 10/06/2022 HGB 10.2 (L) 10/06/2022 HCT 35.1 (L) 10/06/2022 PLT 84 (L) 10/06/2022 CHOL 100 12/03/2020 TRIG 160 (H) 12/03/2020 HDL 44 12/03/2020 ALT 11 10/05/2022 AST 24 10/05/2022 NA 132 (L) 10/06/2022 K 5.0 10/06/2022 CL 96 (L) 10/06/2022 CREATININE 1.14 (H) 10/06/2022 BUN 17 10/06/2022 CO2 26 10/06/2022 TSH 1.28 08/07/2022 INR 1.3 10/05/2022 LABA1C 7.2 06/17/2022 LABMICR 16 12/03/2020 A/P 67 y.o. female who presents with L3 compression fracture NPO for L3 kyphoplasty with cement augmentation Will follow after surgery Please contact neurosurgery with any changes in patients neurologic status. Demetrio Kline CNP 10/06/22 11:40 AM Associated attestation - Sosa Rodriguez DO - 10/06/2022 4:35 PM EST I have seen and examined the patient independently. I reviewed all laboratory and imaging studies that are relevant. I agree with the ISAAC note with the below addendum. Patient with significant axial back pain worse on loading and unable to sit up greater than 45 degrees in bed still. No focal neurological deficits. Pathologic L3 compression fracture with intractable axial pain on loading. L3 kyphoplasty today. Extensively discussed with the patient as well as her son at the bedside Sosa Rodriguez DO Neurosurgery O: [phone] C: [phone] [facility] Inpatient Progress Note PJ E[facility] 10/06/2022 10:10 AM Angella Olson [id number] Time spent with Patient: 0 minutes Presenting Patient Report: Patient was not present at time of bedside visit due to medical procedure. This clinical writer will attempt again at a more appropriate time. Images from the original note were not included. PROGRESS NOTE PATIENT NAME: Angella Olson DATE: 10/06/2022 SURGEON: Richard PRIMARY CARE PHYSICIAN: CELIA Garcia CNP HD: # 2 ASSESSMENT Patient Active Problem List Diagnosis Chronic back pain Stage 3 chronic kidney disease (HCC) Essential hypertension Bipolar disorder with depression (HCC) Type 2 diabetes mellitus, with long-term current use of insulin (HCC) Obesity (BMI 30-39.9) Iron deficiency anemia Fall at home, initial encounter Frequency of urination Mixed incontinence Nocturia Positive FIT (fecal immunochemical test) Dyslipidemia Gastroesophageal reflux disease Cirrhosis of liver without ascites (HCC) COPD (chronic obstructive pulmonary disease) (HCC) Sepsis secondary to UTI (HCC) Moderate malnutrition (HCC) UTI (urinary tract infection) Hepatic encephalopathy SUAD (acute kidney injury) (HCC) prerenal Closed compression fracture of third lumbar vertebra (HCC) MEDICAL DECISION MAKING AND PLAN L3 compression fracture after fall from standing height -OR with neurosurgery today for kyphoplasty with cement augmentation -MMPT History of type 2 diabetes on insulin -High-dose sliding scale -Carb controlled diet SUBJECTIVE Angella Olson was evaluated at bedside. Patient is awake and alert this morning. AAOx3. Patient is nervous for her surgery this morning. Pain is currently controlled. Adequate urine output. OBJECTIVE VITALS: Temp: Temp: 97.3 F (36.3 C)Temp Av.1 F (36.7 C) Min: 97.1 F (36.2 C) Max: 98.8 F (37.1 C) BP Systolic (24hrs), Av , Min:99 , Max:119 Diastolic (24hrs), Av, Min:58, Max:73 Pulse Pulse Av.1 Min: 59 Max: 71 Resp Resp Av.2 Min: 12 Max: 16 Pulse ox SpO2 Av.7 % Min: 96 % Max: 98 % GENERAL: awake, alert, no acute distress NEURO: AAO x3 HEENT: Normocephalic, atraumatic : Purewick in place LUNGS: No respiratory distress, on room air HEART: Normal rate and regular rhythm ABDOMEN: Soft, nontender, nondistended EXTREMITY: No lower extremity edema I/O last 3 completed shifts: In: 3226.2 [I.V.:3226.2] Out: 3000 [Urine:3000] Drain/tube output: In: 3226.2 [I.V.:3226.2] Out: 1600 [Urine:1600] LAB: CBC: Recent Labs 10/04/2254 10/05/2243210/06/22 0408 WBC 4.8 5.0 4.6 HGB 10.3* 11.3* 10.2* HCT 35.5* 37.7 35.1* MCV 98.6 94.3 98.9 PLT 97* See Reflexed IPF Result 84* BMP: Recent Labs 10/04/2254 10/05/2243210/06/22 0408 NA 133* 134* 132* K 5.0 5.3 5.0 CL 100 97* 96* CO2 21 29 26 BUN 21 18 17 CREATININE 1.18* 1.22* 1.14* GLUCOSE 149* 148* 161* COAGS: Recent Labs 10/03/22202110/05/22 0433 10/05/22 0730 APTT 19.8* -- -- PROT -- 7.2 -- INR 1.1 -- 1.3 RADIOLOGY: MRI LUMBAR SPINE WO CONTRAST Final Result Acute superior endplate fracture of L3, resulting in minimal loss of vertebral body height. RECOMMENDATIONS: Unavailable XR SHOULDER RIGHT (MIN 2 VIEWS) Final Result No acute osseous abnormality. XR FEMUR RIGHT (MIN 2 VIEWS) Final Result No acute osseous abnormality. XR FEMUR LEFT (MIN 2 VIEWS) Final Result No acute osseous abnormality. Jae Kuhn MD 10/06/22, 11:14 AM Associated attestation - Nima Larios MD - 10/06/2022 12:44 PM EST I personally evaluated the patient and directed the medical decision making with Resident/ISAAC after the physical/radiologic exam and laboratory values were reviewed and confirmed. Plan for OR today with neurosurgery. Nima Larios MD Images from the original note were not included. RISK STRATIFICATION PRIOR TO OR REVISED CARDIAC INDEX SCORE: Patient has a revised cardiac index score of 1, placing her at a class II risk, or a 6.0% 30 day risk of , ME, or cardiac arrest associated with surgery. NSQIP Assessment: Patient was awake and alert when bulk station agent visited. Family was not present at the time. Patient looked a bit worried and seemed to be having a rough time. When asked how she was feeling, patient responded; a lot of pain. Patient said she was raised [place] but not affiliated with any [place]. Patient received sacrament of anointing of the sick. Intervention: Director Of Pulmonary Unit provided ministry of presence, offered support and prayed with patient. Outcome: Patient expressed gratitude for the anointing and blessing she received. Plan: Follow up visits recommended for more prayers and support. Neurosurgery Resident Daily Progress Note 10/05/2022 7:33 AM Chart reviewed. No acute events overnight. Severe back pain. Denies numbness or tingling into extremities. No new complaints. Vitals reviewed, afebrile. Vitals: 10/04/22 1940 10/05/22 0004 10/05/22 0406 10/05/22 0719 BP: 124/66 119/60 115/75 103/60 Pulse: 80 72 73 84 Resp: 14 13 14 14 Temp: 98.8 F (37.1 C) 97.7 F (36.5 C) 98.1 F (36.7 C) 97.9 F (36.6 C) TempSrc: Oral Oral Oral Oral SpO2: 97% 96% 99% PE: Gen: AOx3, NAD Cardiovascular: Regular rate, no dependent edema, distal pulses 2+ Respiratory: Chest symmetric, no accessory muscle use, normal respirations Neuro: Severe low back pain 5/5 motor BLE Compartments soft and compressible. TA/EHL/FHL/GS motor intact. Deep and Superficial Peroneal/Saphenous/Sural SILT. 2+ DP pulse. Lab Results Component Value Date WBC 5.0 10/05/2022 HGB 11.3 (L) 10/05/2022 HCT 37.7 10/05/2022 PLT See Reflexed IPF Result 10/05/2022 CHOL 100 12/03/2020 TRIG 160 (H) 12/03/2020 HDL 44 12/03/2020 ALT 24 09/11/2022 AST 45 (H) 09/11/2022 NA 134 (L) 10/05/2022 K 5.3 10/05/2022 CL 97 (L) 10/05/2022 CREATININE 1.22 (H) 10/05/2022 BUN 18 10/05/2022 CO2 29 10/05/2022 TSH 1.28 08/07/2022 INR 1.1 10/03/2022 LABA1C 7.2 06/17/2022 LABMICR 16 12/03/2020 EXAMINATION: MRI OF THE LUMBAR SPINE WITHOUT CONTRAST, 10/04/2022 2:20 pm TECHNIQUE: Multiplanar multisequence MRI of the lumbar spine was performed without the administration of intravenous contrast. COMPARISON: None. HISTORY: ORDERING SYSTEM PROVIDED HISTORY: l3 compression fractre TECHNOLOGIST PROVIDED HISTORY: l3 compression fractre FINDINGS: BONES/ALIGNMENT: There is a normal lumbar lordosis. Assuming that the last well-formed disc represents L5-S1, the conus medullaris ends at T12 and is within normal limits. There is severe degenerative disc disease at L5-S1, with partial ankylosis. An acute superior endplate fracture of L3 is noted, resulting in minimal loss of vertebral body height. There is mild edema of the posterior paraspinal muscles from L3 extending caudally, likely reflecting muscular strain. SPINAL CORD: The conus terminates normally. SOFT TISSUES: No paraspinal mass identified. L1-L2: Disc bulge resulting in mild narrowing of the thecal sac. L2-L3: Disc bulge resulting in mild narrowing of the thecal sac. L3-L4: Disc bulge and facet hypertrophy resulting in mild to moderate narrowing of the thecal sac. L4-L5: Disc bulge and facet hypertrophy resulting in mild narrowing of the thecal sac. L5-S1: Posterior osteophytes and facet hypertrophy resulting in [id number] narrowing of the right neural foramen. Impression Acute superior endplate fracture of L3, resulting in minimal loss of vertebral body height. RECOMMENDATIONS: Unavailable Angella Olson is a 67 y.o. female who presents with lower back pain after a fall at home. History of C5-C7 fusion with residual chronic right lower extremity weakness. CT lumbar spine shows mild acute compression fracture of L3 vertebral body. Neurological exam intact. -Kypho tmmrw 10/06 -NPO MN -F/u Coags -MRI reviewed acute L3 fracture -Neurochecks per protocol -Consider imaging in a.m. Abner Nicolas DO 7:33 AM Associated attestation - Sosa Rodriguez DO - 10/05/2022 1:59 PM EST I have seen and examined the patient independently. I reviewed all laboratory and imaging studies that are relevant. I agree with the resident's note with the below addendum. 59-year-old male status post fall at home with severe mid back pain worse with upright posture. Has not been able to stand or mobilize out of bed. Has increased pain with even head of bed elevation while in bed up to 45 degrees or greater. Denies any radiating numbness tingling or weakness. No focal neurological deficits L3 osteoporotic compression fracture with superior endplate injury. We will plan for kyphoplasty with cement augmentation tomorrow Sosa Rodriguez DO Neurosurgery O: [phone] C: [phone] Images from the original note were not included. PROGRESS NOTE PATIENT NAME: Angella Olson DATE: 10/05/2022 SURGEON: Richard PRIMARY CARE PHYSICIAN: Justyna Valderrama, CELIA - NEWSPAPER COPY EDITOR HD: # 1 ASSESSMENT Patient Active Problem List Diagnosis Chronic back pain Stage 3 chronic kidney disease (HCC) Essential hypertension Bipolar disorder with depression (HCC) Type 2 diabetes mellitus, with long-term current use of insulin (HCC) Obesity (BMI 30-39.9) Iron deficiency anemia Fall at home, initial encounter Frequency of urination Mixed incontinence Nocturia Positive FIT (fecal immunochemical test) Dyslipidemia Gastroesophageal reflux disease Cirrhosis of liver without ascites (HCC) COPD (chronic obstructive pulmonary disease) (HCC) Sepsis secondary to UTI (HCC) Moderate malnutrition (HCC) UTI (urinary tract infection) Hepatic encephalopathy SUAD (acute kidney injury) (HCC) prerenal Closed compression fracture of third lumbar vertebra (HCC) MEDICAL DECISION MAKING AND PLAN L3 compression fracture after fall from standing height -Neurosurgery consulted. MRI showed acute superior endplate fracture of L3 resulting in minimal loss of vertebral body height. Neurosurgery considering cement augmentation. Will follow-up further recommendations. -MMPT -Frailty score of 0.42. Will consult geriatrics. History of type 2 diabetes on insulin -High-dose sliding scale -Carb controlled diet History of cirrhosis and hepatic encephalopathy -Nursing states patient was confused and falling asleep midsentence yesterday -Ammonia, HFP, and INR ordered and all within normal limits SUBJECTIVE Angella Olson was evaluated at bedside. According to nursing, patient had some episodes of confusion yesterday and would fall asleep midsentence when speaking to her. Patient is awake and alert this morning. AAOx3. Currently complaining of pain in her back. Adequate urine output. OBJECTIVE VITALS: Temp: Temp: 97.9 F (36.6 C)Temp Av F (36.7 C) Min: 97.4 F (36.3 C) Max: 98.8 F (37.1 C) BP Systolic (24hrs), Av , Min:103 , Max:124 Diastolic (24hrs), Av, Min:60, Max:75 Pulse Pulse Av.3 Min: 72 Max: 84 Resp Resp Av.4 Min: 12 Max: 18 Pulse ox SpO2 Av.2 % Min: 94 % Max: 99 % GENERAL: alert, complaining of some pain NEURO: AAO x3 HEENT: Normocephalic, atraumatic : Purewick in place LUNGS: No respiratory distress, on room air HEART: Normal rate and regular rhythm ABDOMEN: Soft, nontender, nondistended EXTREMITY: No lower extremity edema I/O last 3 completed shifts: In: - Out: 1400 [Urine:1400] Drain/tube output: In: - Out: 1400 [Urine:1400] LAB: CBC: Recent Labs 10/03/22 1846 10/04/22 0654 10/05/22 0433 WBC 4.1 4.8 5.0 HGB 10.7* 10.3* 11.3* HCT 34.7* 35.5* 37.7 MCV 93.0 98.6 94.3 PLT 104* 97* See Reflexed IPF Result BMP: Recent Labs 10/03/22 1846 10/03/22203110/04/22 0654 10/05/22 0433 NA 131* -- 133* 134* K 5.3 -- 5.0 5.3 CL 94* -- 100 97* CO2 27 -- 21 29 BUN 23 -- 21 18 CREATININE 1.59* -- 1.18* 1.22* GLUCOSE 120* 120 149* 148* COAGS: Recent Labs 10/03/22202110/05/2243210/05/22 0730 APTT 19.8* -- -- PROT -- 7.2 -- INR 1.1 -- 1.3 RADIOLOGY: MRI LUMBAR SPINE WO CONTRAST Final Result Acute superior endplate fracture of L3, resulting in minimal loss of vertebral body height. RECOMMENDATIONS: Unavailable XR SHOULDER RIGHT (MIN 2 VIEWS) Final Result No acute osseous abnormality. XR FEMUR RIGHT (MIN 2 VIEWS) Final Result No acute osseous abnormality. XR FEMUR LEFT (MIN 2 VIEWS) Final Result No acute osseous abnormality. Jae Kuhn MD 10/05/22, 11:06 AM Attestation signed by Ashish Burch MD I personally evaluated the patient and directed the medical decision making with Resident/ISAAC after the physical/radiologic exam and laboratory values were reviewed and confirmed. Ashish Burch MD 15 Variable Trauma-Specific Frailty Index Comorbidities Cancer History Yes (1) No (0) Coronary Heart Disease ME (1) CABG (0.75) Mild (0.25) No (0) Dementia Severe (1) Moderate (0.5) Mild (0.25) No (0) Daily Activities Help With Grooming Yes (1) No (0) Help with Managing Money Yes (1) No (0) Help doing Housework Yes (1) No (0) Help with Toileting Yes (1) No (0) Help Walking Wheelchair (1) Walker (0.75) Cane (0.5) No (0) Health Attitude Feel Less Useful Most Time (1) Sometimes (0.5) Never (0) Feel Sad Most Time (1) Sometimes (0.5) Never (0) Feel Effort to Do Everything Most Time (1) Sometimes (0.5) Never (0) Feels Lonely Most Time (1) Sometimes (0.5) Never (0) Falls Most Time (1) Sometimes (0.5) Never (0) Function Sexually Active Yes (0) No(1) Nutrition Albumin < 3g/dL (1) > 3g/dL Scoring Score FI (Score 6.25/15) > 0.25 = Frail *Based on 2-weeks prior to hospital admission Trauma Specific Fraility Index > or = to 4 (4 = 0.26) Trauma Specific Fraility Index Score: 0.42 Jae Kuhn MD Images from the original note were not included. 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 Pain is currently controlled. Patient states she has chronic neck pain. Her pain is not worse from baseline. Objective: Patient Vitals for the past 8 hrs: BP Temp Temp src Pulse Resp SpO2 10/04/22 1136 107/70 97.4 F (36.3 C) Oral 72 12 94 % 10/04/22 0805 117/64 97.5 F (36.4 C) Oral 85 19 94 % 10/04/22 0645 -- -- -- -- 18 -- 10/04/22 0545 101/62 98.1 F (36.7 C) Oral 75 22 93 % No intake/output data recorded. No intake/output data recorded. Radiology: XR SHOULDER RIGHT (MIN 2 VIEWS) Final Result No acute osseous abnormality. XR FEMUR RIGHT (MIN 2 VIEWS) Final Result No acute osseous abnormality. XR FEMUR LEFT (MIN 2 VIEWS) Final Result No acute osseous abnormality. MRI LUMBAR SPINE WO CONTRAST (Results Pending) PHYSICAL EXAM: GCS: 15 4 - Opens eyes on own 6 - Follows simple motor commands 5 - Alert and oriented Pupil size: Left 3 mm Right 3 mm Pupil reaction: Yes Wiggles fingers: Left Yes Right Yes Hand grasp: Left normal Right normal Wiggles toes: Left Yes Right Yes Plantar flexion: Left normal Right normal Head: Normocephalic, without obvious abnormality, atraumatic Lungs: No respiratory distress Abdomen: Soft, nontender, nondistended Extremities: extremities normal, atraumatic, no cyanosis or edema Spine: Spine Tenderness ROM Cervical 3 /10 Limited due to history of C5-C7 fusion Thoracic 3 /10 Abnormal, L3 compression fracture Lumbar 3/10 Abnormal, L3 compression fracture Musculoskeletal Joint Tenderness Swelling ROM Right shoulder absent absent normal Left shoulder absent absent normal Right elbow absent absent normal Left elbow absent absent normal Right wrist absent absent normal Left wrist absent absent normal Right hand grasp absent absent normal Left hand grasp absent absent normal Right hip absent absent normal Left hip absent absent normal Right knee absent absent normal Left knee absent absent normal Right ankle absent absent normal Left ankle absent absent normal Right foot absent absent normal Left foot absent absent normal CONSULTS: Neurosurgery PROCEDURES: None INJURIES: L3 compression fracture Patient Active Problem List Diagnosis Chronic back pain Stage 3 chronic kidney disease (HCC) Essential hypertension Bipolar disorder with depression (HCC) Type 2 diabetes mellitus, with long-term current use of insulin (HCC) Obesity (BMI 30-39.9) Iron deficiency anemia Fall at home, initial encounter Frequency of urination Mixed incontinence Nocturia Positive FIT (fecal immunochemical test) Dyslipidemia Gastroesophageal reflux disease Cirrhosis of liver without ascites (HCC) COPD (chronic obstructive pulmonary disease) (HCC) Sepsis secondary to UTI (HCC) Moderate malnutrition (HCC) UTI (urinary tract infection) Hepatic encephalopathy SUAD (acute kidney injury) (HCC) prerenal Closed compression fracture of third lumbar vertebra (HCC) Assessment/Plan: L3 compression fracture after fall from standing height -Neurosurgery consulted. MRI lumbar spine ordered. Possible cement augmentation. -MMPT Jae Kuhn MD [facility] Speech Language Pathology SPEECH/COGNITIVE ASSESSMENT NO LOC,CHI OR CVA/TIA - ST TO DEFER AT THIS TIME Date: 10/04/2022 Patient Name: Angella Olson Date of : 1955 AGE: 67 y.o. Angella Olson is a 67 yo woman who presented to [facility] after falling backwards and landing on her buttock with sudden sharp pain in her lower back that she described as shooting up her spine. She did not hit her head or lose consciousness Pt not seen for speech or cognitive assessment at this time as does not appear to have documentation of head trauma or LOC. ST to defer at this time. Please re-consult as needed. BHAVNA Tipton 10/04/2022 7:52 AM documented in this encounter [facility] Work Phone: 10-04-2022 Hospital Discharge instructions Demetrio Kline APRN - NICOLE - 10/04/2022 8:15 AM EST Images from the original note were not included. Discharge Instructions for Trauma What to do after you leave the hospital: General questions or concerns may be called to the trauma nurse line at [phone] and please leave a message. Trauma is a life-threatening condition. Your doctor will want to closely monitor you. Be sure to go to all of your appointments. Lumbar Spine Surgery Discharge Instructions Thank you for choosing [facility] for your surgical needs. The following instructions will help to ensure your comfort and that you are well prepared after your surgery. Post-Operative Visit: The office is located at: [facility] [address] [facility] [address], [address], [place] [address] Please also call your primary care physician to schedule an appointment for further evaluation and care. Diet: You may resume your regular diet. Be sure to eat a well-balanced diet. Protein promotes wound healing. Pain medication and decreased activity can cause constipation. Drink 8-10 glasses of water a day, eat fresh fruits and vegetables, and add prunes, raisins and bran cereals to your diet if you do become constipated. A stool softener taken 1-2 times a day is helpful. Dulcolax suppositories or Fleets enemas are also available without a prescription. Call our office if the problem continues. Activity and Exercise: No driving until you are seen in the office. Avoid riding in a car for the first two weeks until you come to the office for your scheduled follow-up. Start taking short, frequent walks in the beginning. [place], more frequent walks throughout the day are more beneficial than one long walk each day. You may gradually increase the distance; as tolerated. Your brace will help give support to your muscles while you walk. If your pain increases, you may be walking too much or too far. Try backing off for a day or two and then resume slowly. No lifting greater than 5 lbs (gallon of milk). No bending at the waist. Instead, bend at the knees and squat to pick something up. If physical therapy has been prescribed, you are not to perform range of motion, flexion, extension or lateral bending. No baths, swimming or hot tub until you discuss this with your doctor. Incision Care and Hygiene: Your incision may be may be closed with sutures Steri-strips, ulises, or glue. - The Steri-strips will fall off on their own in 7-10 days - The ulises or sutures should be removed about 2 weeks after surgery. If they are not removed please call the clinic to have them removed. - The glue will dissolve over time No ointments or lotions on the incision It is OK to shower 3-4 days after surgery. Let water run over the incision. Gently pat the incision dry with a clean towel, do not rub. Leave incision site open to air. Pain Management: Do not take NSAID medications (Ibuprofen, Naprosyn, etc.) or Tolliver-2 inhibitors (Celebrex, etc.) for 12 weeks following surgery. You will be given a prescription for pain medication. Our hope is that you will eventually be weaned off all pain medications. Try not take the pain medicine unless you need to. If you feel that you do not need something that strong, you may use regular or extra-strength Tylenol instead. DO NOT drink alcohol, drive or operate heavy machinery while taking your pain medications. Notify the office if your pain is not controlled or you need a medication refill before your appointment. Blood Thinning Medication: If you were previously on any blood thinning medications (Clopidogrel, Warfarin, aspirin, etc.) that haven t been restarted, you may resume in 1 weeks following your surgery. YOU SHOULD CALL THE OFFICE AT [phone] IF YOU HAVE ANY OF THE FOLLOWING: Increased pain or pain not relieved with current medications If you notice any signs of infection such as bleeding, redness, swelling, tenderness, odor, drainage or opening of the incision. Please check your incisions twice daily. Fevers greater than 101.5 degrees Flu-like symptoms, chills, shakes, chest pain, shortness of breath, nausea, vomiting, diarrhea New or increased pain, numbness or tingling in the legs, as well as new or increased balance or coordination issues. New difficulty with urinating or holding your bladder or your bowels *If you are unable to contact someone at the office and your symptoms persist or increase, call 911 or go to the emergency department. CELIA Reyna CNP - 10/16/2022 2:14 PM EST Images from the original note were not included. [facility] Pain Management Expectations [facility] Provided pain medications that may have included opioids for the following condition(s): fracture Taking these medications may cause certain reactions or side effects that could be dangerous, including: sleepiness or sedation, constipation, nausea, itching, allergic reactions, problems with thinking clearly, slow reactions, or slow breathing. Our Expectations include: - The patient will take the medication as prescribed. - The patient prescribed the medication is the only one that takes the medication. - Not driving a vehicle - Not operating machinery - Not consuming alcohol or illicit drugs while taking prescribed medications - Not participating in activities that would put other people at risk for being injured - The patient will notify his/her pain management team of the new prescription - The patient will safeguard pain medications and there is no guarantee that the missing medication will be replaced or refilled. - Refill requests will only be addressed during regular business hours of Thursday through Thursday, 8:00AM-4:30PM. Prescribing these medications will not ensure a pain score of zero but rather decrease the level of pain and make the healing process more tolerable . Acute pain will be treated. Patients with chronic pain will be referred to pain management. Taking these medications regularly may lead to dependence or tolerance of the medication. [facility] will be prescribing pain medication as listed according to your diagnosis/injury. Multimodal pain therapy (non-opioid) medications will also be prescribed as appropriate. Recommended Doses of Medication (5mg tablets) Spine fracture (non-TP) single: 15-20 tablets (*) Denotes patient is to follow up in clinic or with PCP. Pain is to be reassessed at each follow up visit with physical exam and an OARRS report. *Patient must be seen in the clinic with an OARRS report to be evaluated for refills. *Naloxone is a medicine that treats opioid overdose. Administering naloxone to a person who has not taken an opioid medicine will not hurt him/her. Ask your healthcare provider how you can get a prescription for naloxone and tell your family where this is stored in case of an emergency. Alex Miller RN - 10/07/2022 8:28 AM EST Continuity of Care Form Patient Name: Angella Olson : 1955 Admit date: 10/04/2022 Discharge date: 10-17-22 Code Status Order: Full Code Advance Directives: Advance Care Flowsheet Documentation Date/Time Healthcare Directive Type of Healthcare Directive Copy in Chart Healthcare Agent Appointed Healthcare Agent's Name Healthcare Agent's Phone Number 10/06/22 [phone] Yes, patient has an advance directive for healthcare treatment Living will;Health care treatment directive;Durable power of mergers and acquisitions attorney for health care No, copy requested from family Adult Children keny -- Admitting Physician: Aristeo Ramos DO PCP: Justyna Valderrama APRN - MABEL Discharging Nurse: Kristel Blue Discharging Hospital Unit/Room#: 0102/0102-01 Discharging Unit Emergency Contact: Extended Emergency Contact Information Primary Emergency Contact: Keny Peterson Address: [address] [place] [address] of [place] Mobile Relation: Child Director Drug needed? No Secondary Emergency Contact: Tamanna Strong Mobile Relation: [id number] Preferred language: Moroccan Director Drug needed? No Past Surgical History: Past Surgical History: Procedure Laterality Date ABDOMEN SURGERY Removal of scar tissue per Laparoscopy procedure. BACK SURGERY Donor cervical fusion. SECTION [address]Eric Sandoval-gastro in [place], [place]-unsure when ESOPHAGOGASTRODUODENOSCOPY 10/2021 [facility] ESOPHAGOGASTRODUODENOSCOPY 06/2021 [facility] EYE SURGERY Retinal surgery. KYPHOSIS SURGERY 10/06/2022 [facility] Left 12/2019 Left middle finger. OTHER SURGICAL HISTORY Removal of mass from left mid arm. OTHER SURGICAL HISTORY OTHER SURGICAL HISTORY Right NERVE RADIOFREQUENCY ABLATION-L3,4,5 (Right: Back)- Dr. Watts PAIN MANAGEMENT PROCEDURE Bilateral 11/26/2021 LUMBAR FACET - L4-5 L5-SI performed by Darell Watts MD at [facility] OR PAIN MANAGEMENT PROCEDURE Bilateral 01/21/2022 LUMBAR FACET - L4-5, L5-S1 performed by Darell Watts MD at [facility] OR PAIN MANAGEMENT PROCEDURE Right 03/18/2022 NERVE RADIOFREQUENCY ABLATION-L3,4,5 performed by Darell Watst MD at [facility] OR PAIN MANAGEMENT PROCEDURE N/A 06/10/2022 EPIDURAL STEROID INJECTION- L5-SI, RIGHT OF MIDLINE performed by Darell Watts MD at [facility] OR UPPER GASTROINTESTINAL ENDOSCOPY [facility] unsure when Immunization History: Immunization History Administered Date(s) Administered COVID-19, J&J, (age 18y+), IM, 0.5 mL 10/23/2020, 11/23/2020 COVID-19, PFIZER Bivalent BOOSTER, DO NOT Dilute, (age 12y+), IM, 30 mcg/0.3 mL 05/11/2022 COVID-19, PFIZER PURPLE top, DILUTE for use, (age 12 y+), 30mcg/0.3mL 07/15/2021 Influenza, FLUAD, (age 65 y+), Adjuvanted, 0.5mL 05/11/2022 Influenza, FLUARIX, FLULAVAL, FLUZONE (age 6 mo+) AND AFLURIA, (age 3 y+), PF, 0.5mL 05/30/2019 Influenza, High Dose (Fluzone 65 yrs and older) 05/17/2020 Pneumococcal Polysaccharide ([id number]) 10/18/2019 Tdap (Boostrix, Adacel) 11/23/2019 Active Problems: Patient Active Problem List Diagnosis Code Chronic back pain M54.9, G89.29 Stage 3 chronic kidney disease (HCC) N18.30 Essential hypertension I10 Bipolar disorder (HCC) F31.9 Type 2 diabetes mellitus, with long-term current use of insulin (HCC) E11.9, Z79.4 Obesity (BMI 30-39.9) E66.9 Iron deficiency anemia D50.9 Fall at home, initial encounter W19.XXXA, Y92.009 Frequency of urination R35.0 Mixed incontinence N39.46 Nocturia R35.1 Positive FIT (fecal immunochemical test) R19.5 Dyslipidemia E78.5 Gastroesophageal reflux disease K21.9 Cirrhosis of liver without ascites (HCC) K74.60 COPD (chronic obstructive pulmonary disease) (HCC) J44.9 Sepsis secondary to UTI (HCC) A41.9, N39.0 Moderate malnutrition (HCC) E44.0 Hepatic encephalopathy K76.82 SUAD (acute kidney injury) (HCC) prerenal N17.9 Closed compression fracture of third lumbar vertebra (HCC) S32.030A Recurrent major depressive disorder, in partial remission (HCC) F33.41 Non-alcoholic fatty liver disease K76.0 Isolation/Infection: Isolation No Isolation Patient Infection Status Infection Onset Added Last Indicated Last Indicated By Review Planned Expiration Resolved Resolved By None active Resolved COVID-19 (Rule Out) 09/06/22 09/06/22 09/06/22 COVID-19, Rapid (Ordered) 09/06/22 Rule-Out Test Resulted COVID-19 (Rule Out) 05/12/22 05/12/22 05/12/22 COVID-19, Rapid (Ordered) 05/12/22 Rule-Out Test Resulted COVID-19 (Rule Out) 08/14/21 08/14/21 08/14/21 COVID-19, Rapid (Ordered) 08/14/21 Rule-Out Test Resulted COVID-19 (Rule Out) 08/08/21 08/08/21 08/08/21 COVID-19, Rapid (Ordered) 08/08/21 Rule-Out Test Resulted COVID-19 (Rule Out) 06/15/21 06/15/21 06/15/21 SARS-CoV-2 NAAT (Rapid) (Ordered) 06/15/21 Rule-Out Test Resulted COVID-19 (Rule Out) 02/07/21 02/07/21 02/07/21 COVID-19, Rapid (Ordered) 02/07/21 Rule-Out Test Resulted COVID-19 (Rule Out) 04/30/20 04/30/20 04/30/20 COVID-19, PCR (Ordered) 04/30/20 Rule-Out Test Resulted Nurse Assessment: Last Vital Signs: BP 119/65 Pulse 60 Temp 98 F (36.7 C) (Oral) Resp 17 LMP (LMP Unknown) SpO2 97% Last documented pain score (0-10 scale): Pain Level: 4 Last Weight: Wt Readings from Last 1 Encounters: 09/29/22 184 lb (83.5 kg) Mental Status: oriented, alert, coherent, logical, thought processes intact, and able to concentrate and follow conversation IV Access: - None Nursing Mobility/ADLs: Walking Assisted Transfer Assisted Bathing Assisted Dressing Assisted Toileting Independent Feeding Independent Fountain Worker Independent Med Delivery whole Wound Care Documentation and Therapy: Incision 10/06/22 Back Lower;Medial (Active) Dressing Status Clean;Dry;Intact 10/06/221999 Incision Cleansed Cleansed with saline 10/06/22 1525 Dressing/Treatment Surgical glue 10/06/221999 Closure Sutures 10/06/221999 Incision Assessment Dry 10/06/221999 Danelle-incision Assessment Intact;Ecchymosis 10/06/221999 Number of days: 0 Elimination: Continence: Bowel: Yes Bladder: No Urinary Catheter: None Colostomy/Ileostomy/Ileal Conduit: No Date of Last BM: 10-17-22 Intake/Output Summary (Last 24 hours) at 10/07/2022 08 Last data filed at 10/07/2022 0644 Gross per 24 hour Intake 1400 ml Output 510 ml Net 890 ml I/O last 3 completed shifts: In: 1400 [I.V.:1400] Out: 1210 [Urine:1200; Blood:10] Safety Concerns: None Impairments/Disabilities: None Nutrition Therapy: Current Nutrition Therapy: - Oral Diet: General Routes of Feeding: Oral Liquids: No Restrictions Daily Fluid Restriction: yes - amount 1500mL Last Modified Barium Swallow with Video (Video Swallowing Test): not done Treatments at the Time of Hospital Discharge: Respiratory Treatments: Oxygen Therapy: is not on home oxygen therapy. Ventilator: - No ventilator support Rehab Therapies: Physical Therapy and Occupational Therapy Weight Bearing Status/Restrictions: No weight bearing restrictions Other Medical Equipment (for information only, NOT a DME order): walker Other Treatments: Patient's personal belongings (please select all that are sent with patient): None RN SIGNATURE: CASE MANAGEMENT/SOCIAL WORK SECTION Inpatient Status Date: Readmission Risk Assessment Score: Readmission Risk Risk of Unplanned Readmission: 26 Discharging to Facility/ Agency Name: Address: Phone: Fax: Dialysis Facility (if applicable) Name: Address: Dialysis Schedule: Phone: Fax: Stripper [employer]/Legal Recovery Specialist signature: {Esignature:[id number]} PHYSICIAN SECTION Prognosis: Good Condition at Discharge: Stable Rehab Potential (if transferring to Rehab): Good Recommended Labs or Other Treatments After Discharge: Physician Certification: I certify the above information and transfer of Angella Olson is necessary for the continuing treatment of the diagnosis listed and that she requires Home Care for less 30 days. Update Admission H&P: No change in H&P PHYSICIAN SIGNATURE: The following attachments cannot be sent through Care Everywhere.Compression Fracture: Spine (Moroccan)Fall Prevention (Moroccan)documented in this encounter [facility] [employer] [employer] Work Phone: 09-11-2022 History of Present illness Narrative Retail Assistant reviewed discharge instructions with patient. Patient verbalized understanding. Aware of need to seed cone picker prescription from [facility]. Patient denies questions. Copy of discharge instructions given to patient. Spoke with the son and explain that his mom is much better and doctor feels she can go home. He was in agreement with home and home health. Gave the [place] of choice list and the patient chose [facility]. Referral made and paper work fax. Home with [facility] today for medication management , lab work, PT / OT, and disease management. GENI Baer Patient A&Ox4, calm and cooperative. Assessment and vital signs completed, see flowsheet. Patient reports pain 7/10 to lower back, aching. Reduction in appetite per pt. Intermittent incontinence noted. +1 pitting edema in RLE, trace non-pitting edema in LLE. Weakness in all four extremities, pt says her strength is improving, contact guard to standy-by assist with walker. Patient resting in chair, call light within reach, denies further needs, will continue to monitor. Physical Therapy Facility/Department: [facility] Daily Treatment Note NAME: Angella Olson : 1955 Date of Service: 09/11/2022 Discharge Recommendations: Continue to assess pending progress, Subacute/Halfway Facility, Forming Fixer Care with PT Patient Diagnosis(es): The primary encounter diagnosis was Hepatic encephalopathy. Diagnoses of Hyperammonemia (HCC), Hypomagnesemia, Acute pyelonephritis, and Septicemia (HCC) were also pertinent to this visit. Assessment Assessment: Pt demoed confused state periodically during treatment, with cues to stay on task. Transfers CGA/SBA x1. Gait x 25' with WW and CGA/SBA, pt ambulated with slow pace, decreased step height/length and occasional stops, required cues during directional changes. Seated B LE exercises x15 in all planes, Cues for continuation. Attempted standing there ex at AD, but discontinued due to increase LBP. Activity Tolerance: Patient tolerated treatment well;Patient limited by fatigue;Treatment limited secondary to decreased cognition Plan Physcial Therapy Plan General Plan: 2 times a day 7 days a week (1x/day on holidays and weekends) Current Treatment Recommendations: Strengthening;ROM;Balance training;Transfer training;ADL/Self-care training;IADL training;Gait training;Endurance training;Stair training;Neuromuscular re-education;Patient/Caregiver education & training;Safety education & training;Home exercise program;Equipment evaluation, education, & procurement;Positioning;Therapeutic activities Restrictions Restrictions/Precautions Restrictions/Precautions: General Precautions, Fall Risk Subjective Subjective Subjective: Pt in recliner upon arrival agreeable to therapy Pain: pt c/o chronic LBP/neck pn thats exacerbated by the bed Orientation Overall Orientation Status: Impaired (Initially Oriented x4, but demoed some confusion throughout treat) Orientation Level: Oriented X4 Objective Bed Mobility Training Bed Mobility Training: No Transfer Training Transfer Training: Yes Overall Level of Assistance: Stand-by assistance;Assist X1;Contact-guard assistance Interventions: Verbal cues;Safety awareness training Sit to Stand: Contact-guard assistance;Assist X1;Stand-by assistance Stand to Sit: Stand-by assistance;Assist X1 Stand Pivot Transfers: Contact-guard assistance;Assist X1 Gait Training Gait Training: Yes Gait Overall Level of Assistance: Stand-by assistance;Contact-guard assistance;Assist X1 Interventions: Safety awareness training;Verbal cues Speed/Kayla: Slow Step Length: Left shortened;Right shortened Gait Abnormalities: Antalgic;Decreased step clearance Distance (ft): 25 Feet Assistive Device: Walker, rolling Neuromuscular Education Neuromuscular Education: No PT Exercises Exercise Treatment: Seated B LE exercises x15 in all planes, Cues for continuation. Attempted standing there ex at AD, but discontinued due to increase LBP. Safety Devices Type of Devices: All fall risk precautions in place;Call light within reach;Chair alarm in place;Left in chair;Gait belt Goals Short Term Goals Time Frame for Short Term Goals: 10 days Short Term Goal 1: Patient will ambulate 50' with FWW, supervision, without LOB Short Term Goal 2: Patient will be independent with transfers and bed mobility. Short Term Goal 3: Patient will tolerate 30 minutes of therex/act to improve endurance for ADLs. Additional Goals?: No Patient Goals Patient Goals : Improve mobility Education Patient Education Education Given To: Patient Education Provided Comments: Education during ambulation for safety with AD in maintaining close approximation. Education Method: Verbal;Demonstration Barriers to Learning: Cognition Education Outcome: Verbalized understanding;Continued education needed Therapy Time Individual Concurrent Group Co-treatment Time In 0836 Time Out 0902 Minutes 26 Pasquale Zarco PTA Patient reassessed at this time. Patient alert & oriented x4. Patient is unable to have pain medication at this time. Patient states this pain is chronic pain and she has had it for years. Denies any other needs at this time. Aptient received bed bath at this time. Assessment and vitals as charted. Bed alarm on, bed locked, gripper socks on, call light within reach and able to use appropriately. Will continue to monitor this shift. Patient resting comfortably at this time. Patient will receive pain medication with night time medications per request and denies any other needs at this time. Patient alert & oriented x4 and able to answer all questions appropriately and follow commands. Assessment and vitals as charted. Bed alarm on, bed locked, gripper socks on, call light within reach and able to use appropriately. Will continue to monitor this shift. Sondra MONROE made aware of pts pain. Afternoon assessment completed at this time. Pt resting comfortably in bed. Pt continues to c/o of back pain that is not relieved by tylenol. Will update Sondra MONROE to see if additional medication can be ordered. Pt denies other needs. Call light in reach. Bed alarm active. Care ongoing. Physical Therapy Facility/Department: [facility] Daily Treatment Note NAME: Angella Olson : 1955 Date of Service: 09/10/2022 Discharge Recommendations: Continue to assess pending progress, Subacute/Halfway Facility, Forming Fixer Care with PT Patient Diagnosis(es): The primary encounter diagnosis was Hepatic encephalopathy. Diagnoses of Hyperammonemia (HCC), Hypomagnesemia, Acute pyelonephritis, and Septicemia (HCC) were also pertinent to this visit. Assessment Assessment: Pt was more limited with gait afternoon d/t increased low back pain. She ambulated 50 ft with FWW and CGA. She requested to return to bed following tx. Activity Tolerance: Patient tolerated treatment well Plan Physcial Therapy Plan General Plan: 2 times a day 7 days a week Restrictions Restrictions/Precautions Restrictions/Precautions: General Precautions, Fall Risk Subjective Subjective Subjective: Ptin chair, just woke up from nap. She reports no new changes. SHe reprots she needs to use bathroom. Pain: Pain is unchanged, rates neck and back 8/10 Objective Vitals Bed Mobility Training Bed Mobility Training: Yes (At end of tx.) Sit to Supine: Stand-by assistance Scooting: Stand-by assistance Transfer Training Transfer Training: Yes Overall Level of Assistance: Stand-by assistance;Assist X1 Sit to Stand: Contact-guard assistance;Assist X1 Stand to Sit: Contact-guard assistance;Assist X1 Toilet Transfer: Stand-by assistance;Assist X1 (Pt ook extra time to use bathroom. She required assitance with pericare. brief was changed.) Gait Training Gait Training: Yes Right Side Weight Bearing: As tolerated Left Side Weight Bearing: As tolerated Gait Overall Level of Assistance: Stand-by assistance Speed/Kayla: Slow Distance (ft): 50 Feet (Pt reports increased cervical and low back pain so was unable to ambulate further distances.) Assistive Device: Walker, rolling Safety Devices Type of Devices: All fall risk precautions in place;Nurse notified;Left in bed;Bed alarm in place Goals Short Term Goals Time Frame for Short Term Goals: 10 days Short Term Goal 1: Patient will ambulate 50' with FWW, supervision, without LOB Short Term Goal 2: Patient will be independent with transfers and bed mobility. Short Term Goal 3: Patient will tolerate 30 minutes of therex/act to improve endurance for ADLs. Additional Goals?: No Patient Goals Patient Goals : Improve mobility Education Patient Education Education Given To: Patient Education Provided: Role of Therapy Education Provided Comments: Proper transer technique Education Method: Verbal Barriers to Learning: None Education Outcome: Verbalized understanding Therapy Time Individual Concurrent Group Co-treatment Time In 1041 Time Out 1110 Minutes 29 Ruth Klein PTA Pt ambulated in ndiaye with therapy. Pt c/o pain. PRN tylenol given per pts request. Progress Note SUBJECTIVE: Patient seen for f/u of UTI (urinary tract infection). She up in chair tolerated PT today. No complaints or distress. ROS: Constitutional: negative for fevers, and negative for chills. Respiratory: negative for shortness of breath, negative for cough, and negative for wheezing Cardiovascular: negative for chest pain, and negative for palpitations Gastrointestinal: negative for abdominal pain, negative for nausea,negative for vomiting, negative for diarrhea, and negative for constipation All other systems were reviewed with the patient and are negative unless otherwise stated in HPI OBJECTIVE: Vitals: Vitals: 09/10/22 0729 BP: (!) 120/54 Pulse: 79 Resp: 16 Temp: 97.7 F (36.5 C) SpO2: 90% Weight: 185 lb (83.9 kg) Height: 5' 3 (160 cm) Weight Wt Readings from Last 3 Encounters: 09/10/22 185 lb (83.9 kg) 08/13/22 188 lb 9.6 oz (85.5 kg) 07/21/22 185 lb 4.8 oz (84.1 kg) Body mass index is 32.77 kg/m . 24HR INTAKE/OUTPUT: Intake/Output Summary (Last 24 hours) at 09/10/2022 0900 Last data filed at 2022 2345 Gross per 24 hour Intake 480 ml Output 300 ml Net 180 ml Exam: GEN: Awake, alert and oriented x3. Converses appropriately EYES: EOMI, pupils equal NECK: Supple. No lymphadenopathy. No carotid bruit CVS: regular rate and rhythm, no audible murmur PULM: CTA, no wheezes, rales or rhonchi, no acute respiratory distress ABD: Bowels sounds normal. Abdomen is soft. No distention. no tenderness to palpation. EXT: no edema bilaterally . No calf tenderness. NEURO: Moves all extremities. Motor and sensory are grossly intact SKIN: No rashes. No skin lesions. Diagnostic Data: Complete Blood Count: Recent Labs 09/08/22 0540 2230 09/10/22 0558 WBC 3.3* 2.6* 3.0* RBC 3.15* 3.23* 3.30* HGB 8.8* 9.2* 9.4* HCT 28.3* 29.0* 29.7* MCV 89.8 89.8 90.0 MCH 27.9 28.5 28.5 MCHC 31.1 31.7 31.6 RDW 16.4* 16.6* 16.8* PLT 102* 111* 108* MPV 9.2 9.3 9.2 Last 3 Blood Glucose: Recent Labs 09/08/22 0540 09/09/22 0530 09/10/22 0558 GLUCOSE 153* 86 79 Comprehensive Metabolic Profile: Recent Labs 09/08/22 0540 09/09/22 0530 09/10/22 0558 NA 138 140 139 K 4.9 4.3 4.4 CL 106 106 104 CO2 25 25 27 BUN 25* 15 9 CREATININE 1.17* 0.98* 0.88 GLUCOSE 153* 86 79 CALCIUM 8.5* 8.5* 8.9 PROT 6.0* 6.0* 6.1* LABALBU 2.5* 2.6* 2.8* BILITOT 0.3 0.2* 0.3 ALKPHOS 129* 127* 127* AST 50* 41* 37* ALT 23 22 20 Urinalysis: Lab Results Component Value Date/Time NITRU NEGATIVE 09/06/2022 09:20 PM COLORU Yellow 09/06/2022 09:20 PM PHUR 6.0 09/06/2022 09:20 PM WBCUA 20 TO 50 09/06/2022 09:20 PM RBCUA 0 TO 2 09/06/2022 09:20 PM MUCUS TRACE 12/27/2021 11:20 AM TRICHOMONAS NOT REPORTED 08/14/2021 10:00 AM YEAST NOT REPORTED 08/14/2021 10:00 AM BACTERIA 2+ 09/06/2022 09:20 PM CLARITYU clear 08/07/2021 09:45 AM SPECGRAV 1.020 09/06/2022 09:20 PM LEUKOCYTESUR MODERATE 09/06/2022 09:20 PM UROBILINOGEN Normal 09/06/2022 09:20 PM BILIRUBINUR NEGATIVE 09/06/2022 09:20 PM BILIRUBINUR negative 08/07/2021 09:45 AM BLOODU negative 08/07/2021 09:45 AM GLUCOSEU NEGATIVE 09/06/2022 09:20 PM KETUA NEGATIVE 09/06/2022 09:20 PM AMORPHOUS NOT REPORTED 08/14/2021 10:00 AM HgBA1c: Lab Results Component Value Date/Time LABA1C 7.2 06/17/2022 11:24 AM Lactic Acid: Lab Results Component Value Date/Time LACTA 1.5 09/06/2022 10:40 PM LACTA 2.4 09/06/2022 08:40 PM LACTA 1.2 08/07/2022 11:05 PM Troponin: No results for input(s): TROPONINI in the last 72 hours. CRP: No results for input(s): CRP in the last 72 hours. Radiology/Imaging: CT Head W/O Contrast Final Result No acute intracranial hemorrhage, mass effect, midline shift, or sign of acute territorial infarct. Chronic ischemic changes in the white matter and generalized volume loss are redemonstrated. XR CHEST PORTABLE Final Result Bibasilar infiltrates or subsegmental atelectasis unchanged ASSESSMENT / PLAN: MEDICAL DECISION MAKING: Primary Problem(s): UTI (urinary tract infection) Differential diagnoses: Hepatic encephalopathy factored in. Condition is 1 or more chronic illnesses with severe exacerbation, progression, or side effects of treatment Condition is improving Treatment plan: No additional imaging is needed at this time. Imaging: no further imaging studies ordered today Medications: Continue IV Rocephin Medication Monitoring / High Risk Medications: none Urine culture was not ordered in ER to reflux so culture not able to be completed Acute hepatic encephalopathy Condition is a chronic stable condition Oriented and appropriate at this time Treatment plan: Continue current treatment Imaging: no further imaging studies ordered today Trend labs Ammonia level normal Medications: Continue lactulose, Aldactone SUAD Condition is Resolved Treatment plan: monitor labs Remains normal Imaging: no further imaging studies ordered today Medications: Medications not indicated at this time IVL Nutrition status: at risk for malnutrition Ship Worker consult initiated Hospital Prophylaxis: DVT: Lovenox Stress Ulcer: PPI Disposition: Shared decision making: All test results, treatment options and disposition options were discussed with the patient today Social determinants of health that may impact management: none Code status: Full Code Disposition: Discharge plan is [facility] Advanced Care Planning documentation: [x] I have confirmed that the patient's Advance Care Plan is present, Code Status is documented, or surrogate decision maker is listed in the patient's medical record [If yes , STOP HERE] [] The patient's Advance Care Plan is NOT present because: [] I confirmed today that the patient does not wish or was not able to name a surrogate decision maker or provide and advance care plan. [] Hospice care is currently being provided or has been provided within the calendar year. [] I did NOT confirm today the presence of an Advance Care Plan or surrogate decision maker documented within the patient's medical record. [DOES NOT SATISFY [facility]] Sondra Guillory, CELIA - NEWSPAPER COPY EDITOR , COMMERCIAL HVAC SERVICE TECHNICIAN, CHIEF TALENT OFFICER-[facility] 09/10/2022, 9:00 AM Associated attestation - Miroslava Victor MD - 09/10/2022 11:50 AM EST Attending Supervising Physician s Attestation Statement I have personally evaluated and examined the patient [id number] in conjunction with the nurse practitioner. I agree with management and disposition of the patient. My king findings are: 67 y.o. female admitteed for UTI (urinary tract infection) on 09/06/2022 Regular. Clear. Confused. UTI (urinary tract infection) Principal Problem: UTI (urinary tract infection) Active Problems: Hepatic encephalopathy SUAD (acute kidney injury) (HCC) prerenal Essential hypertension Type 2 diabetes mellitus, with long-term current use of insulin (HCC) Cirrhosis of liver without ascites (HCC) Resolved Problems: * No resolved hospital problems. * Examined and Reviewed plan of care with CHIEF TALENT OFFICER. Directions and discussion about care and plans. Disposition including length of stay was reviewed. Nutritional status, advanced directive and old records reviewed. In addition, Consultations and pharmacy management including drug therapy was reviewed. Physical therapy goals along with occupational therapy was reviewed & integrated into management including disposition. Disposition: Placement. Antibiotics. Lactulose. The patient was seen examined with the nurse practitioner on September 10 2022 all direct care was reviewed with the nurse practitioner at the bedside with the patient. Electronically signed by Miroslava Victor MD Physical Therapy Facility/Department: [facility] Daily Treatment Note NAME: Angella Olson : 1955 Date of Service: 09/10/2022 Discharge Recommendations: Continue to assess pending progress, Subacute/Halfway Facility, [facility] Care with PT Patient Diagnosis(es): The primary encounter diagnosis was Hepatic encephalopathy. Diagnoses of Hyperammonemia (HCC), Hypomagnesemia, Acute pyelonephritis, and Septicemia (HCC) were also pertinent to this visit. Assessment Assessment: Pt was able to progress gait distances this morning to 100 ft total, she took a seated rest break after 80 ft. She does display improved situational awareness, less delayed responses to questions and faster kayla as compared to a few days ago. Activity Tolerance: Patient tolerated treatment well Plan Physcial Therapy Plan General Plan: 2 times a day 7 days a week Restrictions Restrictions/Precautions Restrictions/Precautions: General Precautions, Fall Risk Subjective Subjective Subjective: Pt resting in chair upon arrival. Agreeable to PT Pain: Pt rates neck and back pain a 8/10. She reports having Tylenol around 4 AM. Objective Vitals Bed Mobility Training Bed Mobility Training: No Transfer Training Transfer Training: Yes Overall Level of Assistance: Stand-by assistance;Assist X1 Sit to Stand: Contact-guard assistance;Assist X1 Stand to Sit: Contact-guard assistance;Assist X1 Gait Training Gait Training: Yes Right Side Weight Bearing: As tolerated Left Side Weight Bearing: As tolerated Gait Overall Level of Assistance: Stand-by assistance Speed/Kayla: Slow Distance (ft): 100 Feet (after 80 ft, pt sat down in chair for rest break. She states she was hhappy to get out of her room and stretch her legs out.) Assistive Device: Walker, rolling Safety Devices Type of Devices: All fall risk precautions in place;Chair alarm in place;Left in chair;Nurse notified Goals Short Term Goals Time Frame for Short Term Goals: 10 days Short Term Goal 1: Patient will ambulate 50' with FWW, supervision, without LOB Short Term Goal 2: Patient will be independent with transfers and bed mobility. Short Term Goal 3: Patient will tolerate 30 minutes of therex/act to improve endurance for ADLs. Additional Goals?: No Patient Goals Patient Goals : Improve mobility Education Patient Education Education Given To: Patient Education Provided Comments: Proper transer technique and proper gait sequencing. Education Method: Verbal Education Outcome: Verbalized understanding Therapy Time Individual Concurrent Group Co-treatment Time In 0749 Time Out 0805 Minutes 16 Ruth Klein PTA Retail Assistant to bedside to complete morning assessment. Upon entry to room, resting comfortably in bed, pt requesting to go to the bathroom, respirations even and unlabored while on room air. Pt assisted to bathroom, pt required moderate assistance to get up from bed. Vitals obtained and assessment completed, see flow sheet for details. 0700 medication given. Pt complaining of pain. Pt not due for pain medication at this time. Pt verbalizes understanding. Pt denies needs from clinical writer at this time. Call light in reach. Care ongoing. Patient reassessment and vitals completed at this time as charted. Patient is resting in bed and denies pain at this time. Patient states no needs, call light is in reach, will continue to monitor. Patients son visited patient and came out of room asking for an update on patients status. He is concerned that patient is acting much different then she was yesterday. Retail Assistant provided son with update. Patient shift assessment and vitals completed at this time as charted. Patient is alert and oriented x4. Retail Assistant assisted patient to the restroom and patient states that she is seeing bugs everywhere but she knows that they are not there. Patient denies pain and was assisted with repositioning in bed for comfort. Patient states no further needs, call light is in reach, will continue to monitor. Sondra MONROE made aware of blood pressure. She will review chart. [facility] Inpatient/Observation/Outpatient Rehabilitation Date: 2022 Patient Name: Angella Olson [x] Inpatient Acute/Observation [] Outpatient : 1955 [x] Pt refused/declined therapy at this time due to: Pt stated she is too tired, already did therapy once today and she has other things she needs to focus her attention on. Educated pt on importance of participation however pt continued to decline. Therapist/Furniture Upholsterer Apprentice will attempt to see this patient, at our earliest opportunity. Harriet Dang, CONTACT FINGER ASSEMBLER [id number] Date: 2022 Progress Note SUBJECTIVE: Patient seen for f/u of UTI (urinary tract infection). She resting in bed no distress. Answers questions appropriately . Oriented to place, year and president. She knows today is her birthday and stated her son is her POA ROS: Constitutional: negative for fevers, and negative for chills. Respiratory: negative for shortness of breath, negative for cough, and negative for wheezing Cardiovascular: negative for chest pain, and negative for palpitations Gastrointestinal: negative for abdominal pain, negative for nausea,negative for vomiting, negative for diarrhea, and negative for constipation All other systems were reviewed with the patient and are negative unless otherwise stated in HPI OBJECTIVE: Vitals: Vitals: 09/09/22 0711 BP: (!) 99/58 Pulse: 72 Resp: 20 Temp: 98.4 F (36.9 C) SpO2: 93% Weight: 188 lb 4.8 oz (85.4 kg) Height: 5' 3 (160 cm) Weight Wt Readings from Last 3 Encounters: 09/09/22 188 lb 4.8 oz (85.4 kg) 08/13/22 188 lb 9.6 oz (85.5 kg) 07/21/22 185 lb 4.8 oz (84.1 kg) Body mass index is 33.36 kg/m . 24HR INTAKE/OUTPUT: Intake/Output Summary (Last 24 hours) at 2022 0915 Last data filed at 2022 0423 Gross per 24 hour Intake 2287.67 ml Output 300 ml Net 1987.67 ml Exam: GEN: Awake, alert and oriented x3. EYES: EOMI, pupils equal NECK: Supple. No lymphadenopathy. No carotid bruit CVS: regular rate and rhythm, no audible murmur PULM: CTA, no wheezes, rales or rhonchi, no acute respiratory distress ABD: Bowels sounds normal. Abdomen is soft. No distention. no tenderness to palpation. EXT: no edema bilaterally . No calf tenderness. NEURO: Moves all extremities. Motor and sensory are grossly intact SKIN: No rashes. No skin lesions. Diagnostic Data: Complete Blood Count: Recent Labs 09/07/22 0545 09/08/22 0540 09/09/22 0530 WBC 4.3 3.3* 2.6* RBC 3.58* 3.15* 3.23* HGB 10.2* 8.8* 9.2* HCT 32.7* 28.3* 29.0* MCV 91.3 89.8 89.8 MCH 28.5 27.9 28.5 MCHC 31.2 31.1 31.7 RDW 16.4* 16.4* 16.6* PLT 122* 102* 111* MPV 9.5 9.2 9.3 Last 3 Blood Glucose: Recent Labs 09/06/22201809/06/22203909/07/22 0545 09/08/22 0540 09/09/22 0530 GLUCOSE 118 125* 110* 153* 86 Comprehensive Metabolic Profile: Recent Labs 09/07/22 0545 09/08/22 0540 09/09/22 0530 NA 130* 138 140 K 4.7 4.9 4.3 CL 99 106 106 CO2 23 25 25 BUN 45* 25* 15 CREATININE 1.84* 1.17* 0.98* GLUCOSE 110* 153* 86 CALCIUM 8.7 8.5* 8.5* PROT 6.6 6.0* 6.0* LABALBU 2.7* 2.5* 2.6* BILITOT 0.3 0.3 0.2* ALKPHOS 113* 129* 127* AST 26 50* 41* ALT 15 23 22 Urinalysis: Lab Results Component Value Date/Time NITRU NEGATIVE 09/06/2022 09:20 PM COLORU Yellow 09/06/2022 09:20 PM PHUR 6.0 09/06/2022 09:20 PM WBCUA 20 TO 50 09/06/2022 09:20 PM RBCUA 0 TO 2 09/06/2022 09:20 PM MUCUS TRACE 12/27/2021 11:20 AM TRICHOMONAS NOT REPORTED 08/14/2021 10:00 AM YEAST NOT REPORTED 08/14/2021 10:00 AM BACTERIA 2+ 09/06/2022 09:20 PM CLARITYU clear 08/07/2021 09:45 AM SPECGRAV 1.020 09/06/2022 09:20 PM LEUKOCYTESUR MODERATE 09/06/2022 09:20 PM UROBILINOGEN Normal 09/06/2022 09:20 PM BILIRUBINUR NEGATIVE 09/06/2022 09:20 PM BILIRUBINUR negative 08/07/2021 09:45 AM BLOODU negative 08/07/2021 09:45 AM GLUCOSEU NEGATIVE 09/06/2022 09:20 PM KETUA NEGATIVE 09/06/2022 09:20 PM AMORPHOUS NOT REPORTED 08/14/2021 10:00 AM HgBA1c: Lab Results Component Value Date/Time LABA1C 7.2 06/17/2022 11:24 AM Lactic Acid: Lab Results Component Value Date/Time LACTA 1.5 09/06/2022 10:40 PM LACTA 2.4 09/06/2022 08:40 PM LACTA 1.2 08/07/2022 11:05 PM Troponin: No results for input(s): TROPONINI in the last 72 hours. CRP: No results for input(s): CRP in the last 72 hours. Radiology/Imaging: CT Head W/O Contrast Final Result No acute intracranial hemorrhage, mass effect, midline shift, or sign of acute territorial infarct. Chronic ischemic changes in the white matter and generalized volume loss are redemonstrated. XR CHEST PORTABLE Final Result Bibasilar infiltrates or subsegmental atelectasis unchanged ASSESSMENT / PLAN: MEDICAL DECISION MAKING: Primary Problem(s): UTI (urinary tract infection) Differential diagnoses: Hepatic encephalopathy factored in. Condition is 1 or more chronic illnesses with severe exacerbation, progression, or side effects of treatment Condition is improving Treatment plan: No additional imaging is needed at this time. Imaging: no further imaging studies ordered today Medications: Continue IV Rocephin Medication Monitoring / High Risk Medications: none Urine culture was not ordered in ER to reflux so culture not able to be completed Acute hepatic encephalopathy Condition is a chronic stable condition Treatment plan: Continue current treatment Imaging: no further imaging studies ordered today Trend labs Medications: Continue lactulose, Aldactone SUAD Condition is Resolved Treatment plan: monitor labs Imaging: no further imaging studies ordered today Medications: Medications not indicated at this time Stop IVF Nutrition status: at risk for malnutrition Ship Worker consult initiated Hospital Prophylaxis: DVT: Lovenox Stress Ulcer: PPI Disposition: Shared decision making: All test results, treatment options and disposition options were discussed with the patient today Social determinants of health that may impact management: none Code status: Full Code Disposition: Discharge plan is [facility] Advanced Care Planning documentation: [x] I have confirmed that the patient's Advance Care Plan is present, Code Status is documented, or surrogate decision maker is listed in the patient's medical record [If yes , STOP HERE] [] The patient's Advance Care Plan is NOT present because: [] I confirmed today that the patient does not wish or was not able to name a surrogate decision maker or provide and advance care plan. [] Hospice care is currently being provided or has been provided within the calendar year. [] I did NOT confirm today the presence of an Advance Care Plan or surrogate decision maker documented within the patient's medical record. [DOES NOT SATISFY [facility]] Sondra Weaver-CELIA Siegel - NEWSPAPER COPY EDITOR , COMMERCIAL HVAC SERVICE TECHNICIAN, CHIEF TALENT OFFICER-[facility] 2022, 9:15 AM Associated attestation - Miroslava Victor MD - 09/10/2022 11:50 AM EST Attending Supervising Physician s Attestation Statement I have personally evaluated and examined the patient [id number] in conjunction with the nurse practitioner. I agree with management and disposition of the patient. My king findings are: 67 y.o. female admitteed for UTI (urinary tract infection) on 09/06/2022 Regular. Clear. Confused. UTI (urinary tract infection) Principal Problem: UTI (urinary tract infection) Active Problems: Hepatic encephalopathy SUAD (acute kidney injury) (HCC) prerenal Essential hypertension Type 2 diabetes mellitus, with long-term current use of insulin (HCC) Cirrhosis of liver without ascites (HCC) Resolved Problems: * No resolved hospital problems. * Examined and Reviewed plan of care with CHIEF TALENT OFFICER. Directions and discussion about care and plans. Disposition including length of stay was reviewed. Nutritional status, advanced directive and old records reviewed. In addition, Consultations and pharmacy management including drug therapy was reviewed. Physical therapy goals along with occupational therapy was reviewed & integrated into management including disposition. Disposition: Placement. Antibiotics. Lactulose. The patient was seen examined with the nurse practitioner on 2022 all direct care was reviewed with the nurse practitioner at the bedside with the patient. Electronically signed by Miroslava Victor MD Physical Therapy Facility/Department: [facility] Daily Treatment Note NAME: Angella Olson : 1955 Date of Service: 2022 Discharge Recommendations: Continue to assess pending progress, Subacute/Halfway Facility, Forming Fixer Care with PT Patient Diagnosis(es): The primary encounter diagnosis was Hepatic encephalopathy. Diagnoses of Hyperammonemia (HCC), Hypomagnesemia, Acute pyelonephritis, and Septicemia (HCC) were also pertinent to this visit. Assessment Assessment: Completed BLE ther ex supine x15 reps, per pt request to stay in bed. Patient lethargic throughout tx. Plan Physcial Therapy Plan General Plan: 2 times a day 7 days a week Restrictions Restrictions/Precautions Restrictions/Precautions: General Precautions, Fall Risk Subjective Subjective Subjective: Patient sleepy, reporting she did not sleep well last night, requests to stay in bed and agrees to bed ther ex, pt lethargic throughtout tx Pain: head and neck pain 8/10 Objective Vitals Bed Mobility Training Bed Mobility Training: No Transfer Training Transfer Training: No Gait Training Gait Training: No PT Exercises Exercise Treatment: Completed BLE ther ex supine x15 reps Goals Short Term Goals Time Frame for Short Term Goals: 10 days Short Term Goal 1: Patient will ambulate 50' with FWW, supervision, without LOB Short Term Goal 2: Patient will be independent with transfers and bed mobility. Short Term Goal 3: Patient will tolerate 30 minutes of therex/act to improve endurance for ADLs. Additional Goals?: No Patient Goals Patient Goals : Improve mobility Education Patient Education Education Given To: Patient Education Provided: Role of Therapy Education Method: Verbal Barriers to Learning: Cognition Education Outcome: Verbalized understanding Therapy Time Individual Concurrent Group Co-treatment Time In 0835 Time Out 0858 Minutes 23 Timed Code Treatment Minutes: 23 Minutes Ching Holland, [id number] Retail Assistant to bedside to complete morning assessment. Upon entry to room, pt sitting up in chair, respirations even and unlabored while on room air. Vitals obtained and assessment completed, see flow sheet for details. Pt c/o headache. PRN tylenol given. Pt laughing at everything clinical writer says, pt is oriented times 4. Inappropriate reactions. 0700 medication given at this time as well. Pt denies needs further needs from clinical writer at this time. Call light in reach. Care ongoing. VS rechecked and pt reassessed at this time. Pt remains A&Ox4. Patient complains of pain, prn Tylenol administered. No other changes noted from previous assessment. Pt denies any needs at this time and has call light within reach, will monitor. Pt had just been positioned in bed when clinical writer entered room. VS obtained and assessment done as charted in flow sheet. Pt is A&Ox4. Pt denies any pain. SPO2 95% on room air. Pt denies any other needs at this time and states she is going to watch television for a while. Bedside table and call light are within reach. Will continue to monitor. Physician Progress Note PATIENT: ANGELLA OLSON CSN #: [id number] : 1955 ADMIT DATE: 09/06/2022 8:08 PM DISCH DATE: RESPONDING PROVIDER #: Miroslava Victor MD QUERY TEXT: Patient admitted with UTI and hepatic encephalopathy. ED provider documented urosepsis/septicemia. If possible, please document in the progress notes and discharge summary if sepsis was: The medical record reflects the following: Risk Factors: UTI, COPD, cirrhosis of liver, CKD, DM Clinical Indicators: change in mental status, more lethargic; WBC 6.8 -> 4.3-> 3.3, admission lactic acid 2.4; SUAD documented, admission creatinine 2.27 -> 1.17 on 09/08/22; in ED BP as low as 70/42 with multiple systolic BP readings <90; per ED provider ill-appearing Treatment: IV NS boluses in ED, IV Rocephin and IV vancomycin Nancy Rice, MSN, RN, CCDS, CRCR Clinical Animal Care Worker [phone] . Options provided: -- Sepsis due to UTI confirmed after study -- Sepsis ruled out after study -- Other - I will add my own diagnosis -- Disagree - Not applicable / Not valid -- Disagree - Clinically unable to determine / Unknown -- Refer to Clinical Documentation Reviewer PROVIDER RESPONSE TEXT: Sepsis due to UTI confirmed after study. Query created by: Nancy Rice on 09/08/2022 8:15 AM Electronically signed by: Miroslava Victor MD 09/08/2022 4:46 PM Entered patient's room for afternoon vital signs and head to toe reassessment. Patient resting in the bed at this time. A&O x4, calm, and cooperative. Patient denies pain. Vital signs and head to toe reassessment completed at this time, see flowsheets for more details. Patient denies no more needs at this time. Call light within reach. Bed alarm on. Bed wheels locked. Bed in lowest position. Physical Therapy Facility/Department: [facility] Daily Treatment Note NAME: Angella Olson : 1955 Date of Service: 09/08/2022 Discharge Recommendations: Continue to assess pending progress, Subacute/Halfway Facility, Forming Fixer Care with PT Patient Diagnosis(es): The primary encounter diagnosis was Hepatic encephalopathy. Diagnoses of Hyperammonemia (HCC), Hypomagnesemia, Acute pyelonephritis, and Septicemia (HCC) were also pertinent to this visit. Assessment Assessment: Call light was on for pt room. Upon arrival she was in the bathroom on the commode and needed assistance with brief and returned to bed. Pt was CGA with transfer from commode and CGA wtih ambulation back to EOB. CGA/SBA with bed mobility. Activity Tolerance: Patient tolerated treatment well Plan Physcial Therapy Plan General Plan: 2 times a day 7 days a week Restrictions Restrictions/Precautions Restrictions/Precautions: General Precautions, Fall Risk Subjective Subjective Subjective: Call light was on. Pt was in bathroom, she just finished voiding and needed assistance back to bed. Pain: 8/10 neck and head Objective Vitals Bed Mobility Training Bed Mobility Training: Yes Overall Level of Assistance: Contact-guard assistance Sit to Supine: Stand-by assistance Scooting: Contact-guard assistance Transfer Training Transfer Training: Yes Overall Level of Assistance: Stand-by assistance;Assist X1 Sit to Stand: Contact-guard assistance;Assist X1 Stand to Sit: Contact-guard assistance;Assist X1 Toilet Transfer: Stand-by assistance Gait Training Gait Training: Yes Right Side Weight Bearing: As tolerated Left Side Weight Bearing: As tolerated Gait Overall Level of Assistance: Contact-guard assistance Speed/Kayla: Slow Step Length: Left shortened;Right shortened Distance (ft): 15 Feet Assistive Device: Walker, rolling PT Exercises Exercise Treatment: SUpine BLE ex x10 each Safety Devices Type of Devices: All fall risk precautions in place;Bed alarm in place;Left in bed Goals Short Term Goals Time Frame for Short Term Goals: 10 days Short Term Goal 1: Patient will ambulate 50' with FWW, supervision, without LOB Short Term Goal 2: Patient will be independent with transfers and bed mobility. Short Term Goal 3: Patient will tolerate 30 minutes of therex/act to improve endurance for ADLs. Additional Goals?: No Patient Goals Patient Goals : Improve mobility Education Patient Education Education Given To: Patient Education Provided: Role of Therapy;Plan of Care Education Provided Comments: Proper transer technique and proper gait sequencing. Education Method: Verbal Barriers to Learning: Cognition Education Outcome: Verbalized understanding Therapy Time Individual Concurrent Group Co-treatment Time In 1500 Time Out 1513 Minutes 13 Ruth Klein PTA Comprehensive Nutrition Assessment Type and Reason for Visit: Initial Nutrition Recommendations/Plan: Continue current diet. Start 4 oz chocolate Glucerna TID with meals. Malnutrition Assessment: Malnutrition Status: At risk for malnutrition (Comment) (09/08/22 1103) Context: Acute Illness Findings of the 6 clinical characteristics of malnutrition: Energy Intake: Mild decrease in energy intake (Comment) Weight Loss: No significant weight loss Body Fat Loss: No significant body fat loss Muscle Mass Loss: No significant muscle mass loss Fluid Accumulation: Mild Extremities (trace non pitting BLE) Flaking Roll Operator Strength: Not Performed Nutrition Assessment: Inadequate oral intakes r/t cognitive/neurological dysfunction aeb PO 26-50% of meals, ate 100% of lunch. Dx of hypomagnesiumia, hyperammonemia, septicemia, and hepatic encephalopathy. A1c 7.2, glucose 153, renal indices elevated, H/H are decreasing. Corrected calcium 9.7. Historically drank chocolate Glucerna with meals, agrees to try it again. Pt reports of 50# weight loss x < 1 year, not evident in historical weights. Reports of difficulty swallowing food and fluids, but had no difficulty drinking diet Pepsi, eating macaroni and cheese or broccoli, per clinical writer observation. States PO has been 50% of usual PO x 3 months. Pt seemed to be poor historian as weight loss and eating ability did not match up to what she stated. Does want CC diet information, will attach to d/c instructions. Nutrition Related Findings: no visual indices of malnutrition Wound Type: None Current Nutrition Intake & Therapies: Average Meal Intake: 26-50%, 76-100% Average Supplements Intake: None Ordered ADULT DIET; Regular; 3 carb choices (45 gm/meal) Anthropometric Measures: Height: 5' 3 (160 cm) [place] Body Weight (IBW): 115 lbs (52 kg) Admission Body Weight: 177 lb 3.2 oz (80.4 kg) Current Body Weight: 186 lb 1.6 oz (84.4 kg), 161.8 % IBW. Weight Source: Bed Scale Current BMI (kg/m2): 33 Usual Body Weight: 185 lb (83.9 kg) % Weight Change (Calculated): 0.6 Weight Adjustment For: No Adjustment BMI Categories: Obese Class 1 (BMI 30.0-34.9) Estimated Daily Nutrient Needs: Energy Requirements Based On: Kcal/kg Weight Used for Energy Requirements: Current Energy (kcal/day): 4869-2449 (15-18/kg) Weight Used for Protein Requirements: [place] Protein (g/day): 68-78g (1.3-1.5g/kg IBW) Method Used for Fluid Requirements: ml/Kg Fluid (ml/day): 1680 ml (20/kg) Nutrition Diagnosis: Inadequate oral intake related to cognitive or neurological impairment as evidenced by intake 26-50% related to as evidenced by Nutrition Interventions: Food and/or Nutrient Delivery: Continue Current Diet, Start Oral Nutrition Supplement Nutrition Education/Counseling: No recommendation at this time Coordination of Nutrition Care: Continue to monitor while inpatient Plan of Care discussed with: Patient Goals: Goals: PO intake 75% or greater Lab Results Component Value Date/Time LABA1C 7.2 06/17/2022 11:24 AM Recent Labs 09/06/22 2018 09/07/22 0653 09/07/22 1130 09/07/22 1602 09/07/22 1902 09/08/22 0714 09/08/22 1115 POCGLU 118* 116* 167* 157* 164* 122* 143* Lab Results Component Value Date/Time TRIG 160 12/03/2020 11:18 AM HDL 44 12/03/2020 11:18 AM Recent Labs 09/06/22 2040 09/07/22 0545 09/08/22 0540 NA 133* 130* 138 K 5.3 4.7 4.9 CL 94* 99 106 CO2 28 23 25 BUN 55* 45* 25* CREATININE 2.27* 1.84* 1.17* GLUCOSE 125* 110* 153* ALT 20 15 23 ALKPHOS 145* 113* 129* Lab Results Component Value Date/Time LABALBU 2.5 09/08/2022 05:40 AM Nutrition Monitoring and Evaluation: Behavioral-Environmental Outcomes: Knowledge or Skill Food/Nutrient Intake Outcomes: Food and Nutrient Intake, Supplement Intake Physical Signs/Symptoms Outcomes: Biochemical Data, Weight, Fluid Status or Edema Discharge Planning: Continue current diet, Continue Oral Nutrition Supplement [address], [place] Contact: [phone] Left message for the son to call to talk about a discharge plan. GENI Baer Physical Therapy Facility/Department: [facility] Daily Treatment Note NAME: Angella Olson : 1955 Date of Service: 09/08/2022 Discharge Recommendations: Continue to assess pending progress, Subacute/Halfway Facility, [facility] Care with PT Patient Diagnosis(es): The primary encounter diagnosis was Hepatic encephalopathy. Diagnoses of Hyperammonemia (HCC), Hypomagnesemia, Acute pyelonephritis, and Septicemia (HCC) were also pertinent to this visit. Assessment Assessment: Pt ambulated 20 ft total with FWW and CGA-- but with one seated RB after 10 ft at EOB and 3 standing RBs throughout d/t increased faigue. Pt required cues to increased BLE step lengths d/t poor foot clearance bilat. Pt displayed delayed responses and confusion at times. no LOB. Activity Tolerance: Treatment limited secondary to decreased cognition;Patient limited by endurance Plan Physcial Therapy Plan General Plan: 2 times a day 7 days a week Restrictions Restrictions/Precautions Restrictions/Precautions: General Precautions, Fall Risk Subjective Subjective Subjective: Pt in chair upon arrival. She reportshead and neck pain. She states she just took Tylenol recently for it. Pain: 8/10 neck and head Objective Vitals Bed Mobility Training Bed Mobility Training: No Transfer Training Transfer Training: Yes Sit to Stand: Assist X1;Moderate assistance Stand to Sit: Moderate assistance;Assist X1 (took two attempts to stand, required MOd A on second attempt.) Gait Training Gait Training: Yes Right Side Weight Bearing: As tolerated Left Side Weight Bearing: As tolerated Gait Overall Level of Assistance: Contact-guard assistance Speed/Kayla: Slow Step Length: Left shortened;Right shortened Distance (ft): (20 ft total but with one seated RB after 10 ft at EOB and 3 standing RBs throughout d/t increased faigue. Pt required cues to increased BLE step lengths d/t poor foot clearance bilat.) Assistive Device: Walker, rolling PT Exercises Exercise Treatment: seated b LE x15 Safety Devices Type of Devices: All fall risk precautions in place;Chair alarm in place;Left in chair Goals Short Term Goals Time Frame for Short Term Goals: 10 days Short Term Goal 1: Patient will ambulate 50' with FWW, supervision, without LOB Short Term Goal 2: Patient will be independent with transfers and bed mobility. Short Term Goal 3: Patient will tolerate 30 minutes of therex/act to improve endurance for ADLs. Additional Goals?: No Patient Goals Patient Goals : Improve mobility Education Patient Education Education Given To: Patient Education Provided: Role of Therapy;Plan of Care Education Provided Comments: Proper transer technique and proper gait sequencing. Education Method: Verbal Barriers to Learning: Cognition Education Outcome: Verbalized understanding Therapy Time Individual Concurrent Group Co-treatment Time In 0842 Time Out 0908 Minutes 26 Ruth Klein PTA Progress Note SUBJECTIVE: Patient seen for f/u of UTI (urinary tract infection). She resting in bed no distress. Answers questions appropriately ROS: Constitutional: negative for fevers, and negative for chills. Respiratory: negative for shortness of breath, negative for cough, and negative for wheezing Cardiovascular: negative for chest pain, and negative for palpitations Gastrointestinal: negative for abdominal pain, negative for nausea,negative for vomiting, negative for diarrhea, and negative for constipation All other systems were reviewed with the patient and are negative unless otherwise stated in HPI OBJECTIVE: Vitals: Vitals: 09/08/22 0702 BP: Pulse: Resp: Temp: SpO2: (S) 94% Weight: 186 lb 1.6 oz (84.4 kg) Height: 5' 3 (160 cm) Weight Wt Readings from Last 3 Encounters: 09/08/22 186 lb 1.6 oz (84.4 kg) 08/13/22 188 lb 9.6 oz (85.5 kg) 07/21/22 185 lb 4.8 oz (84.1 kg) Body mass index is 32.97 kg/m . 24HR INTAKE/OUTPUT: Intake/Output Summary (Last 24 hours) at 09/08/2022 0717 Last data filed at 09/07/2022 205 Gross per 24 hour Intake 2494 ml Output -- Net 2494 ml Exam: GEN: Awake, alert and oriented x3. EYES: EOMI, pupils equal NECK: Supple. No lymphadenopathy. No carotid bruit CVS: regular rate and rhythm, no audible murmur PULM: CTA, no wheezes, rales or rhonchi, no acute respiratory distress ABD: Bowels sounds normal. Abdomen is soft. No distention. no tenderness to palpation. EXT: no edema bilaterally . No calf tenderness. NEURO: Moves all extremities. Motor and sensory are grossly intact SKIN: No rashes. No skin lesions. Diagnostic Data: Complete Blood Count: Recent Labs 09/06/22203909/07/2245 09/08/22 0540 WBC 6.8 4.3 3.3* RBC 4.03 3.58* 3.15* HGB 11.4* 10.2* 8.8* HCT 35.7* 32.7* 28.3* MCV 88.6 91.3 89.8 MCH 28.3 28.5 27.9 MCHC 31.9 31.2 31.1 RDW 16.5* 16.4* 16.4* PLT 167 122* 102* MPV 9.9 9.5 9.2 Last 3 Blood Glucose: Recent Labs 09/06/22201809/06/22203909/07/22 0545 09/08/22 0540 GLUCOSE 118 125* 110* 153* Comprehensive Metabolic Profile: Recent Labs 09/06/22203909/07/22 0545 09/08/22 0540 NA 133* 130* 138 K 5.3 4.7 4.9 CL 94* 99 106 CO2 28 23 25 BUN 55* 45* 25* CREATININE 2.27* 1.84* 1.17* GLUCOSE 125* 110* 153* CALCIUM 9.9 8.7 8.5* PROT 7.7 6.6 6.0* LABALBU 3.3* 2.7* 2.5* BILITOT 0.5 0.3 0.3 ALKPHOS 145* 113* 129* AST 30 26 50* ALT 20 15 23 Urinalysis: Lab Results Component Value Date/Time NITRU NEGATIVE 09/06/2022 09:20 PM COLORU Yellow 09/06/2022 09:20 PM PHUR 6.0 09/06/2022 09:20 PM WBCUA 20 TO 50 09/06/2022 09:20 PM RBCUA 0 TO 2 09/06/2022 09:20 PM MUCUS TRACE 12/27/2021 11:20 AM TRICHOMONAS NOT REPORTED 08/14/2021 10:00 AM YEAST NOT REPORTED 08/14/2021 10:00 AM BACTERIA 2+ 09/06/2022 09:20 PM CLARITYU clear 08/07/2021 09:45 AM SPECGRAV 1.020 09/06/2022 09:20 PM LEUKOCYTESUR MODERATE 09/06/2022 09:20 PM UROBILINOGEN Normal 09/06/2022 09:20 PM BILIRUBINUR NEGATIVE 09/06/2022 09:20 PM BILIRUBINUR negative 08/07/2021 09:45 AM BLOODU negative 08/07/2021 09:45 AM GLUCOSEU NEGATIVE 09/06/2022 09:20 PM KETUA NEGATIVE 09/06/2022 09:20 PM AMORPHOUS NOT REPORTED 08/14/2021 10:00 AM HgBA1c: Lab Results Component Value Date/Time LABA1C 7.2 06/17/2022 11:24 AM Lactic Acid: Lab Results Component Value Date/Time LACTA 1.5 09/06/2022 10:40 PM LACTA 2.4 09/06/2022 08:40 PM LACTA 1.2 08/07/2022 11:05 PM Troponin: No results for input(s): TROPONINI in the last 72 hours. CRP: No results for input(s): CRP in the last 72 hours. Radiology/Imaging: CT Head W/O Contrast Final Result No acute intracranial hemorrhage, mass effect, midline shift, or sign of acute territorial infarct. Chronic ischemic changes in the white matter and generalized volume loss are redemonstrated. XR CHEST PORTABLE Final Result Bibasilar infiltrates or subsegmental atelectasis unchanged ASSESSMENT / PLAN: MEDICAL DECISION MAKING: Primary Problem(s): UTI (urinary tract infection) Differential diagnoses: Hepatic encephalopathy factored in. Condition is 1 or more chronic illnesses with severe exacerbation, progression, or side effects of treatment Condition is improving Treatment plan: No additional imaging is needed at this time. Imaging: no further imaging studies ordered today Medications: IV Rocephin Medication Monitoring / High Risk Medications: none Urine culture pending Acute hepatic encephalopathy Condition is a chronic stable condition Treatment plan: Continue current treatment Imaging: no further imaging studies ordered today Trend labs Medications: Continue lactulose, Aldactone SUAD Condition is improving Treatment plan: monitor labs Imaging: no further imaging studies ordered today Medications: Medications not indicated at this time Nutrition status: at risk for malnutrition Ship Worker consult initiated Hospital Prophylaxis: DVT: Lovenox Stress Ulcer: PPI Disposition: Shared decision making: All test results, treatment options and disposition options were discussed with the patient today Social determinants of health that may impact management: none Code status: Full Code Disposition: Discharge plan is pending [facility] Advanced Care Planning documentation: [x] I have confirmed that the patient's Advance Care Plan is present, Code Status is documented, or surrogate decision maker is listed in the patient's medical record [If yes , STOP HERE] [] The patient's Advance Care Plan is NOT present because: [] I confirmed today that the patient does not wish or was not able to name a surrogate decision maker or provide and advance care plan. [] Hospice care is currently being provided or has been provided within the calendar year. [] I did NOT confirm today the presence of an Advance Care Plan or surrogate decision maker documented within the patient's medical record. [DOES NOT SATISFY [facility] PERFORMANCE] CELIA Gómez CNP , CELIA, CHIEF TALENT OFFICER-C Hospitalist Medicine 09/08/2022, 7:17 AM Entered patient's room for morning vital signs and head to toe assessment. Patient resting in the bed at this time. A&O x4, calm, and cooperative. Patient denies pain at this time. Vital signs and head to toe assessment completed at this time, see flowsheets for more details. Patient denies no more needs at this time. Call light within reach. Bed alarm on. Bed wheels locked. Bed in lowest position. Patient awoke for vitals/assessment. Second assessment completed at this time. Assessment unchanged from previous shift assessment. Vital signs completed. Patient up to the bathroom, +1 assist with walker. Incontinent brief, pull up change. Danelle-care given. Patient returned to bed and got comfortable. Patient denies any other needs at this time. Call light, bedside table and personal belongings within reach. Patient sitting up in chair watching television. Vital signs and assessment completed. Orientated x4. Snack given per requested. Patient denies needing bathroom at this time. Patient to stay up in chair for bit longer. Patient denies any other needs at this time. Call light, bedside table and personal belongings within reach. Melatonin will not be provided by the pharmacy, this is a nonformulary medication. If you would like continue this therapy during hospital stay, please consider having patient/family bring in home supply to pharmacy for verification and labeling prior to use. Ciaran Conley RPH 09/07/2022 2:45 PM Physical Therapy Facility/Department: [facility] Physical Therapy Initial Assessment Name: Angella Olson : 1955 Date of Service: 09/07/2022 Discharge Recommendations: Continue to assess pending progress, Subacute/Halfway Facility, [facility]ing [facility] Care with PT PT Equipment Recommendations Equipment Needed: No Patient Diagnosis(es): The primary encounter diagnosis was Hepatic encephalopathy. Diagnoses of Hyperammonemia (HCC), Hypomagnesemia, Acute pyelonephritis, and Septicemia (HCC) were also pertinent to this visit. 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 Past Surgical History: has a past surgical history that includes back surgery; Eye surgery; Abdomen surgery; section (1984); other surgical history; Colonoscopy; Upper gastrointestinal endoscopy; Mohs surgery (Left, 12/2019); Pain management procedure (Bilateral, 11/26/2021); Pain management procedure (Bilateral, 01/21/2022); other surgical history; other surgical history (Right); Pain management procedure (Right, 03/18/2022); and Pain management procedure (N/A, 06/10/2022). Assessment Body Structures, Functions, Activity Limitations Requiring Skilled Therapeutic Intervention: Decreased functional mobility ;Decreased ADL status;Decreased body mechanics;Decreased tolerance to work activity;Decreased strength;Decreased cognition;Decreased endurance;Decreased balance;Decreased high-level IADLs;Decreased posture Assessment: The patient is a 66 y.o. female who was admitted due to hepatic encephalopathy. She demonstrates LE weakness, decreased activity, and impaired balance. She would benefit from skilled PT to address her deficits to improve functional mobility. Treatment Diagnosis: Generalized weakness Therapy Prognosis: Good Decision Making: Medium Complexity Requires PT Follow-Up: Yes Activity Tolerance Activity Tolerance: Patient tolerated evaluation without incident;Patient limited by fatigue Plan Physcial Therapy Plan General Plan: 2 times a day 7 days a week (1x/day on weekends) Current Treatment Recommendations: Strengthening, ROM, Balance training, Transfer training, ADL/Self-care training, IADL training, Gait training, Endurance training, Stair training, Neuromuscular re-education, Patient/Caregiver education & training, Safety education & training, Home exercise program, Equipment evaluation, education, & procurement, Positioning, Therapeutic activities Safety Devices Type of Devices: All fall risk precautions in place, Chair alarm in place Restrictions Restrictions/Precautions Restrictions/Precautions: General Precautions, Fall Risk Subjective General Chart Reviewed: Yes Patient assessed for rehabilitation services?: Yes Family / Caregiver Present: Yes Referring Practitioner: Miroslava Victor MD Referral Date : 09/07/22 Diagnosis: Hepatic encephalopathy, K76.82 Follows Commands: Within Functional Limits Subjective Subjective: Patient reports 7/10 R lower leg pain upon PT arrival. Social/Functional History Social/Functional History Lives With: Alone (She's been at [facility] for the past 3 weeks) Type of Home: Assisted living Home Layout: One level Home Access: Level entry Bathroom Shower/Tub: Tub/Shower unit Bathroom Toilet: Standard Home Equipment: Rollator Has the patient had two or more falls in the past year or any fall with injury in the past year?: Yes Receives Help From: bottom liquor attendant ADL Assistance: Needs assistance Toileting: Needs assistance Homemaking Responsibilities: No Ambulation Assistance: Needs assistance Transfer Assistance: Needs assistance Vision/Hearing Vision Vision: Impaired Vision Exceptions: Wears glasses at all times Hearing Hearing: Within functional limits Cognition Orientation Overall Orientation Status: Impaired Orientation Level: Oriented to person;Oriented to place;Disoriented to time;Disoriented to situation Cognition Overall Cognitive Status: Exceptions Arousal/Alertness: Appropriate responses to stimuli Following Commands: Follows all commands without difficulty Attention Span: Appears intact Memory: Decreased recall of recent events;Decreased short term memory Safety Judgement: Good awareness of safety precautions Problem Solving: Able to problem solve independently Insights: Decreased awareness of deficits Initiation: Does not require cues Sequencing: Requires cues for all Objective Heart Rate: 60 Heart Rate Source: Apical;Monitor BP: 119/64 BP Location: Right upper arm BP Method: Automatic Patient Position: Semi fowlers MAP (Calculated): 82 Resp: 16 SpO2: 97 % O2 Device: Nasal cannula Observation/Palpation Posture: Fair AROM RLE (degrees) RLE AROM: WFL AROM LLE (degrees) LLE AROM : WFL Strength RLE Comment: Grossly 4-/5 Strength LLE Comment: Grossly 4-/5 Bed mobility Bed Mobility Comments: Patient in bedside chair upon PT arrival Transfers Sit to Stand: Contact guard assistance Stand to Sit: Contact guard assistance Ambulation WB Status: FWB Ambulation Surface: Level tile Device: Rolling Walker Other Apparatus: O2 Assistance: Contact guard assistance Quality of Gait: Pt ambulated with decreased step length and step height Distance: 20' More Ambulation?: No Stairs/Curb Stairs?: No Balance Posture: Fair Sitting - Static: Good Sitting - Dynamic: Fair;+ Standing - Static: Fair Standing - Dynamic: Poor;+ AM-PAC Score AM-PAC Inpatient Mobility without Stair Climbing Raw Score : 16 (09/07/221156) AM-PAC Inpatient without Stair Climbing T-Scale Score : 45.54 (09/07/221156) Mobility Inpatient CMS 0-100% Score: 40.64 (09/07/221156) Mobility Inpatient without Stair CMS G-Code Modifier : CK (09/07/221156) Goals Short Term Goals Time Frame for Short Term Goals: 10 days Short Term Goal 1: Patient will ambulate 50' with FWW, supervision, without LOB Short Term Goal 2: Patient will be independent with transfers and bed mobility. Short Term Goal 3: Patient will tolerate 30 minutes of therex/act to improve endurance for ADLs. Additional Goals?: No Patient Goals Patient Goals : Improve mobility Education Patient Education Education Given To: Patient Education Provided: Role of Therapy;Plan of Care Education Method: Verbal Barriers to Learning: Cognition Education Outcome: Verbalized understanding Therapy Time Individual Concurrent Group Co-treatment Time In 1055 Time Out 1120 Minutes 25 Timed Code Treatment Minutes: 25 Minutes Glenis Carrasquillo PT, DPT Patient resting in bed, difficult to arouse, A&O x4 once awake. Vitals and assessment completed. Patient assisted to commode. Call light in reach Retail Assistant entered patient's room and patient was more responsive and alert at this time. Patient transferred from ER to Room 315 at this time via bed. Retail Assistant at bedside at this time to perform admission assessment. Patient is lying in bed and is withdrawn and slow to answer questions. Patient has to be asked questions multiple times before answering. Vital signs taken and assessment completed at this time. Patient is oriented x4 and has no complaints of pain. Patient denies any further needs at this time. Admission navigator completed with documentation sent from [facility]. Call light within reach, bed alarm on for safety, will continue to monitor. documented in this encounter [employer] Phone: 09-11-2022 Hospital Discharge instructions Maddie Sauer RN - 09/11/2022 3:11 PM EST As tolerated Maddie Sauer RN - 09/11/2022 3:12 PM EST Good nutrition is important when healing from an illness, injury, or surgery. Follow any nutrition recommendations given to you during your hospital stay. If you were given an oral nutrition supplement while in the hospital, continue to take this supplement at home. You can take it with meals, in-between meals, and/or before bedtime. These supplements can be purchased at most local grocery stores, pharmacies, and [employer]-stores. If you have any questions about your diet or nutrition, call the hospital and ask for the dietitian. Fluids encouraged The following attachments cannot be sent through Care Everywhere.Diabetes Diet Meal Planning: General Info (Moroccan)UTI (Urinary Tract Infection): Female (Moroccan)Hepatic Encephalopathy: General Info (Moroccan)documented in this encounter [employer] Phone: 03-18-2022 History of Present illness Narrative Discharge instructions given to patient and patients son. Both verbalize understanding and denies any questions at this time. Discharge Criteria Inpatients must meet Criteria 1 through 7. All other patients are either YES or N/A. If a NO is chosen then Anesthesia or Surgeon must be notified. 1. Minimum 30 minutes after last dose of sedative medication, minimum 120 minutes after last dose of reversal agent. Yes 2. Systolic BP stable within 20 mmHg for 30 minutes & systolic BP between 90 & 180 or within 10 mmHg of baseline. Yes 3. Pulse between 60 and 100 or within 10 bpm of baseline. Yes 4. Spontaneous respiratory rate >/= 10 per minute. Yes 5. SaO2 >/= 95 or >/= baseline. Yes 6. Able to cough and swallow or return to baseline function. Yes 7. Alert and oriented or return to baseline mental status. Yes 8. Demonstrates controlled, coordinated movements, ambulates with steady gait, or return to baseline activity function. Yes 9. Minimal or no pain or nausea, or at a level tolerable and acceptable to patient. Yes 10. Takes and retains oral fluids as allowed. Yes 11. Procedural / perioperative site stable. Minimal or no bleeding. Yes 12. If GI endoscopy procedure, minimal or no abdominal distention or passing flatus. N/A 13. Written discharge instructions and emergency telephone number provided. Yes 14. Accompanied by a responsible adult. Yes documented in this encounter [employer] [facility] [employer] Phone: 03-18-2022 Hospital Discharge instructions Karen Diego RN - 03/18/2022 5:41 PM EDT PAIN MANAGEMENT DISCHARGE INSTRUCTIONS 1. Do not drive or operate hazardous machinery for 24 hours. 2. Do not make any important personal or business decisions for 24 hours. 3. Do not drink alcoholic beverages for 24 hours. 4. Do not smoke tobacco products for 24 hours. 5. If your bandage becomes soaked with bright red blood, place another dressing pad over your bandages (DO NOT remove original bandages). Call your surgeon for further instructions. A small amount of bright red blood is to be expected. 6. Continue normal activities. 7. Notify your doctor immediately of any of the following: Excessive swelling of , or around the wound area. Redness. Temperature of 100 degrees (F) or above. Excessive pain. Any questions regarding your surgery. 8. Monitor your pain by completing the Pain Diary using the [place] Pain Scale provided to you at [facility]. Remember in order to accurately assess your pain you need to attempt to reproduce the pain by doing the movements or activities that have triggered the pain previously. When assessing your pain, be accurate and objective. This is not the time for wishful thinking. 9. Dr. Watts's office will call you to schedule a follow-up visit. documented in this encounter [employer] Phone: 02-20-2022 History of Present illness Narrative Patient arrived to appointment by self for diabetes education for assistance in learning [employer]. The entire assessment was not completed at this visit. She has had diabetes since 2000 with history of gestational diabetes. She was seen in 2000 by eye doctor who found concern on eye exam for diabetes. At diagnosis she already had stage 3 kidney disease and was also told she had a fatty liver. Recently was told she has developed cirrhosis. Has issues with chronic back pain and has injections. PA is limited due to her pain. Uses walker to ambulate and can only go short distances. Her logbook is brought to appointment and usually checks glucose fasting with range of 121-209. Denies any recent episodes of hypoglycemia. Handout is given and reviewed on proper treatment. Briefly discuss the need for consistent eating habits and acknowledges this is sometimes difficult. Time arising fluctuates and throws off my day. Encourage her to consider setting an alarm for a reasonable time for her to get up and eat breakfast within the first hour with each meal every 4-5 hour. She does acknowledge that when her meal is too late that causes her glucose to significantly elevate in am. Given as well a list of healthy snacks along with OP education folder. She brought Freestyle Gifty 2.0 for instruction. Verbally instructed and shown how to apply sensor. She was able to perform insertion of sensor without difficulty. Shown how to charge unit, trend arrows, and use of reader. She does not plan to use phone at this time. Informed if she would like to use phone would need to download isaac and set up account. She is shown quick reference guide for applying sensor to use at home. After warm up period of one hour she was able to scan with her reader and her glucose was 162 at end of visit. She is not interested in scheduling another appointment at this time. All questions answered and she is encouraged to review reference guide for questions or to contact office. Snehal Kelly RN, BSN, [facility] documented in this encounter [employer] Phone: 01-21-2022 Hospital Discharge instructions Tracey Archuleta RN - 01/21/2022 PAIN MANAGEMENT DISCHARGE INSTRUCTIONS 1. Do not drive or operate hazardous machinery for 24 hours. 2. Do not make any important personal or business decisions for 24 hours. 3. Do not drink alcoholic beverages for 24 hours. 4. Do not smoke tobacco products for 24 hours. 5. If your bandage becomes soaked with bright red blood, place another dressing pad over your bandages (DO NOT remove original bandages). Call your surgeon for further instructions. A small amount of bright red blood is to be expected. 6. Continue normal activities. 7. Notify your doctor immediately of any of the following: Excessive swelling of , or around the wound area. Redness. Temperature of 100 degrees (F) or above. Excessive pain. Any questions regarding your surgery. 8. Monitor your pain by completing the Pain Diary using the [place] Pain Scale provided to you at [facility]. Remember in order to accurately assess your pain you need to attempt to reproduce the pain by doing the movements or activities that have triggered the pain previously. When assessing your pain, be accurate and objective. This is not the time for wishful thinking. 9. Dr. Watts's office will call you to schedule a follow-up visit. documented in this encounter [employer] Phone: 11-26-2021 History of Present illness Narrative Pt denies any needs at this time. Pt meets all requirements to go home, just waiting for son to arrive for discharge instructions. [facility]: [facility] Hospital Discharge instructions Idalmis Preston RN - 11/26/2021 PAIN MANAGEMENT DISCHARGE INSTRUCTIONS 1. Do not drive or operate hazardous machinery for 24 hours. 2. Do not make any important personal or business decisions for 24 hours. 3. Do not drink alcoholic beverages for 24 hours. 4. Do not smoke tobacco products for 24 hours. 5. If your bandage becomes soaked with bright red blood, place another dressing pad over your bandages (DO NOT remove original bandages). Call your surgeon for further instructions. A small amount of bright red blood is to be expected. 6. Continue normal activities. 7. Notify your doctor immediately of any of the following: Excessive swelling of , or around the wound area. Redness. Temperature of 100 degrees (F) or above. Excessive pain. Any questions regarding your surgery. 8. Monitor your pain by completing the Pain Diary using the [place]ank[place]ki Pain Scale provided to you at [facility]. Remember in order to accurately assess your pain you need to attempt to reproduce the pain by doing the movements or activities that have triggered the pain previously. When assessing your pain, be accurate and objective. This is not the time for wishful thinking. 9. Dr. Watts's office will call you to schedule a follow-up visit. documented in this encounter [facility] [employer] Phone: 11-13-2021 Note Missing Attachment 3 [id number] Can be viewed in source system Missing Attachment [id number] Can be viewed in source system Missing Attachment [id number] Can be viewed in source system Missing Attachment [id number] Can be viewed in source system Missing Attachment [id number] Can be viewed in source system Missing Attachment [id number] Can be viewed in source system Missing Attachment [id number] Can be viewed in source system Missing Attachment [id number] Can be viewed in source system Missing Attachment [id number] Can be viewed in source system Missing Attachment [id number] Can be viewed in source system Missing Attachment [id number] Can be viewed in source system Missing Attachment [id number] Can be viewed in source system Missing Attachment [id number] Can be viewed in source system Patient: Angella Olson Age: 66 years Sex: Female : 1955 Associated Diagnoses: None Author: Antonino Staples MD Pre-Procedure Procedure Type: Esophagogastroduodenoscopy. Procedure provider: Performed by Antonino Staples MD. Current history and physical: Esophagogastroduodenoscopy Biopsy on 11/13/2021 at 66 Years. Comments: 11/13/2021 8:30 Katty King auto-populated from documented surgical case Esophagogastroduodonoscopy with Band Ligation on 07/09/2021 at 65 Years. Comments: 07/09/2021 11:09 Chelsy Matias auto-populated from documented surgical case Colonoscopy. Esophagogastroduodenoscopy. section ([id number]). Cervical Fusion. Benign mass removal x2. REPAIR OF SHOULDER ([id number]). REPAIR DETACHED RETINA ([id number]). Comments: 07/04/2021 14:41 Christina Sanchez For both eyes. Informed Consent: After discussing the rationale, risks and benefits, and alternatives to this procedure, the patient provided signed consent for the procedure. Indication: Esophageal varices. Medications: None. Monitoring: See anesthesia record. Procedure Location: Endo Suite. See anesthesia record for sedation given during procedure. The patient was positioned starting in the left lateral decubitus position. Endoscope type used was an adult-size, introduced orally, advanced to the 2nd portion of the duodenum. Views were good. Gastric biopsies were taken of the pre-pylorus. Findings Esophageal varices were identified at the distal esophagus. The varices are small (less than 5mm). The squamocolumnar junction appeared regular and was located 40 cm from incisors. Multiple gastric erosions were identified. The gastric erosions were identified at the pre-pyloric region. The erosion(s) is described as superficial. Multiple biopsies were collected. Portal hypertensive gastropathy was identified at the fundus. It is described as having a mosaic appearance. Examination of the duodenum revealed a normal duodenum. Images Procedure images: EGD_0001.jpg EGD_0002.jpg EGD_0003.jpg EGD_0004.jpg EGD_0005.jpg EGD_0006.jpg EGD_0007.jpg EGD_0008.jpg EGD_0009.jpg EGD_0010.jpg EGD_0011.jpg EGD_0012.jpg EGD_0013.jpg . Post-Procedure Complications encountered during the procedure were none. Estimated blood loss during the procedure was none. Specimens were sent to pathology. Impression and Plan EGD: Course: Progressing as expected. Education and Follow-up: Counseled: Patient. EGD Esophagus - multiple columns of esophageal varices - flattened upon insufflation - grade 1 - no masses or stenosis appreciated Stomach - no gastric varices appreciated - portal HTN gastropathy - Multiple pre-pyloric erosions vs beginning of GAVE ( no active oozing noted) random antral bx taken Duodenum - normal - no varices - no AVM f/u bx Repeat EGD in a year Monitor Hgb and if there is progressive drop would repeat EGD and ablate gastric lesions f/u bx f/u with provider Electronically signed by Antonino Staples MD 11/13/21 08:37 EDT [facility] Comment on above: Order Comment: Ashly ng Attachment [id number] Can be viewed in source system Missing Attachment [id number] Can be viewed in source system Missing Attachment [id number] Can be viewed in source system Missing Attachment [id number] Can be viewed in source system Missing Attachment [id number] Can be viewed in source system Missing Attachment [id number] Can be viewed in source system Missing Attachment [id number] Can be viewed in source system Missing Attachment [id number] Can be viewed in source system Missing Attachment [id number] Can be viewed in source system Missing Attachment [id number] Can be viewed in source system Missing Attachment [id number] Can be viewed in source system Missing Attachment [id number] Can be viewed in source system Missing Attachment [id number] Can be viewed in source system 11-13-2021 Note Clinical Information Procedure: EGD Pre-operative diagnosis: cirrhosis, varices, fatty liver SP Specimen A Stomach biopsy Gross Description Received in formalin labeled 'stomach biopsy' is a piece of light barboza tissue measuring 0.2 cm in greatest dimension. The specimen is entirely submitted in cassette A1. Microscopic Description Multiple levels of the stomach biopsy show gastric mucosa of the pyloric type. There is no significant inflammation. No mucosal erosion is seen in this small biopsy. There is no evidence of intestinal metaplasia, dysplasia or malignancy. Diagnosis Stomach biopsy: Normal gastric mucosa. [id number] Lucas Oreilly MD (Electronically signed by) Verified: 11/14/21 10:07 [facility] Comment on above: Performed By: #### S LA #### [facility] (DEFAULT) [address] [place] [address] 08-15-2021 Hospital Discharge instructions Raquelesau HollyGENI Cabrera - 08/15/2021 1:33 PM EST Continuity of Care Form Patient Name: Angella Olson : 1955 Admit date: 08/14/2021 Discharge date: Code Status Order: Prior Advance Directives: Admitting Physician: No admitting provider for patient encounter. PCP: CELIA Garcia CNP Discharging Nurse: Discharging Hospital Unit/Room#: 07/28 Discharging Unit Phone Number: Emergency Contact: Extended Emergency Contact Information Primary Emergency Contact: Keny Ruiz [address]: [address] [place] [address] Relation: Child Director Drug needed? No Secondary Emergency Contact: Joseph Tamanna Relation: Other Director Drug needed? No Past Surgical History: Past Surgical History: Procedure Laterality Date ABDOMEN SURGERY Removal of scar tissue per Laparoscopy procedure. BACK SURGERY Donor cervical fusion. SECTION [address]Eric Sandoval-gastro in [place], [place]-unsure when EYE SURGERY Retinal surgery. MOHS SURGERY Left 12/2019 Left middle finger. OTHER SURGICAL HISTORY Removal of mass from left mid arm. UPPER GASTROINTESTINAL ENDOSCOPY [facility] unsure when Immunization History: Immunization History Administered Date(s) Administered COVID-19, J&J, PF, 0.5 mL 10/23/2020 COVID-19, Pfizer, PF, 30mcg/0.3mL 07/15/2021 Influenza, High Dose (Fluzone 65 yrs and older) 05/17/2020 Influenza, Quadv, IM, PF (6 mo and older Fluzone, Flulaval, Fluarix, and 3 yrs and older Afluria) 05/30/2019 Pneumococcal Polysaccharide ([id number]) 10/18/2019 Tdap (Boostrix, Adacel) 11/23/2019 Active Problems: Patient Active Problem List Diagnosis Code Chronic back pain M54.9, G89.29 Stage 3 chronic kidney disease (HCC) N18.30 Essential hypertension I10 Bipolar disorder with depression ([facility]) F31.9 Type 2 diabetes mellitus, with long-term current use of insulin ([facility]) E11.9, Z79.4 Obesity (BMI 30-39.9) E66.9 Iron deficiency anemia D50.9 Fall at home, initial encounter W19.XXXA, Y92.009 Frequency of urination R35.0 Mixed incontinence N39.46 Nocturia R35.1 Positive FIT (fecal immunochemical test) R19.5 Dyslipidemia E78.5 Gastroesophageal reflux disease K21.9 Cirrhosis of liver without ascites ([facility]) K74.60 COPD (chronic obstructive pulmonary disease) ([facility]) J44.9 Isolation/Infection: Isolation No Isolation Patient Infection Status Infection Onset Added Last Indicated Last Indicated By Review Planned Expiration Resolved Resolved By None active Resolved COVID-19 (Rule Out) 08/14/21 08/14/21 08/14/21 COVID-19, Rapid (Ordered) 08/14/21 Rule-Out Test Resulted COVID-19 (Rule Out) 08/08/21 08/08/21 08/08/21 COVID-19, Rapid (Ordered) 08/08/21 Rule-Out Test Resulted COVID-19 (Rule Out) 06/15/21 06/15/21 06/15/21 SARS-CoV-2 NAAT (Rapid) (Ordered) 06/15/21 Rule-Out Test Resulted COVID-19 (Rule Out) 02/07/21 02/07/21 02/07/21 COVID-19, Rapid (Ordered) 02/07/21 Rule-Out Test Resulted COVID-19 (Rule Out) 04/30/20 04/30/20 04/30/20 COVID-19, PCR (Ordered) 04/30/20 Rule-Out Test Resulted Nurse Assessment: Last Vital Signs: BP 137/60 Pulse 81 Temp 98.1 F (36.7 C) (Tympanic) Resp 18 Wt 186 lb (84.4 kg) LMP (LMP Unknown) SpO2 94% BMI 31.93 kg/m Last documented pain score (0-10 scale): Pain Level: 7 Last Weight: Wt Readings from Last 1 Encounters: 08/15/21 186 lb (84.4 kg) Mental Status: {IP PT MENTAL STATUS:} IV Access: { CRISTOBAL IV ACCESS:181738623} Nursing Mobility/ADLs: Walking {CHP DME ADLs:107144588} Transfer {CHP DME ADLs:829936106} Bathing {CHP DME ADLs:023838074} Dressing {CHP DME ADLs:852351754} Toileting {CHP DME ADLs:465419840} Feeding {CHP DME ADLs:695733151} Fountain Worker {CHP DME ADLs:253341915} Med Delivery {[facility] MED Delivery:043828070} Wound Care Documentation and Therapy: Elimination: Continence: Bowel: {YES / NO:} Bladder: {YES / NO:} Urinary Catheter: {Urinary Catheter:719465625} Colostomy/Ileostomy/Ileal Conduit: {YES / NO:} Date of Last BM: No intake or output data in the 24 hours ending 08/15/21 1332 No intake/output data recorded. Safety Concerns: { CRISTOBAL Safety Concerns:137607705} Impairments/Disabilities: {[facility] Impairments/Disabilities:487012266} Nutrition Therapy: Current Nutrition Therapy: { CRISTOBAL Diet List:968336319} Routes of Feeding: {CHP DME Other Feedings:214466263} Liquids: {Social Worker liquid thickness:73408} Daily Fluid Restriction: {CHP DME Yes amt example:275983826} Last Modified Barium Swallow with Video (Video Swallowing Test): {Done Not Done Date:} Treatments at the Time of Hospital Discharge: Respiratory Treatments: Oxygen Therapy: {Therapy; copd oxygen:12679} Ventilator: {[facility] Vent List:243803867} Rehab Therapies: {THERAPEUTIC INTERVENTION:9617686831} Weight Bearing Status/Restrictions: {MH CC Weight Bearin} Other Medical Equipment (for information only, NOT a DME order): {EQUIPMENT:999092223} Other Treatments: Patient's personal belongings (please select all that are sent with patient): {CHP DME Belongings:050828815} RN SIGNATURE: {Esignature:527770073} CASE MANAGEMENT/SOCIAL WORK SECTION Inpatient Status Date: ER 08/14/2021 Readmission Risk Assessment Score: Readmission Risk Risk of Unplanned Readmission: 0 Discharging to Facility/ Agency Name: [facility] Address: [address] [place] [address] Dialysis Facility (if applicable) Name: Address: Dialysis Schedule: Phone: Fax: Stripper Color/Legal Recovery Specialist signature: PHYSICIAN SECTION Prognosis: {Prognosis:9975608387} Condition at Discharge: { Patient Condition:294950639} Rehab Potential (if transferring to Rehab): {Prognosis:4216973638} Recommended Labs or Other Treatments After Discharge: Physician Certification: I certify the above information and transfer of Angella Olson is necessary for the continuing treatment of the diagnosis listed and that she requires {Admit to Appropriate Level of Care:82971} for {GREATER/LESS:167072781} 30 days. Update Admission H&P: {CHP DME Changes in HandP:673762972} PHYSICIAN SIGNATURE: {Esignature:172897249} The following attachments cannot be sent through Care Everywhere.Delirium (Moroccan)documented in this encounter [employer] Phone: 08-15-2021 History of Present illness Narrative [facility] calls and reports that they have received approval for pt to transfer to them. ER staff notified and will arrange transport if Dr gives permission after speaking with hospitalist. Pas ID completed for pt and staff spoke with pt's son per notes. Plan transfer to [facility] when pt is able to be discharged. Raquel ARECHIGA 08/15/2021 Physical Therapy Facility/Department: [facility] ED Daily Treatment Note NAME: Angella Olson : 1955 Date of Service: 08/15/2021 Discharge Recommendations: Continue to assess pending progress,Subacute/Halfway Facility,ECF with PT Assessment Treatment Diagnosis: difficulty walking Prognosis: Good PT Education: PT Role;General Safety;Gait Training;Transfer Training Patient Education: Pt educated on above with fair understsanding REQUIRES PT FOLLOW UP: Yes Activity Tolerance Activity Tolerance: Patient limited by cognitive status;Patient Tolerated treatment well Patient Diagnosis(es): The primary encounter diagnosis was Cognitive change. A diagnosis of Chest pain, unspecified type was also pertinent to this visit. 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 has a past surgical history that includes back surgery; Eye surgery; Abdomen surgery; section (1984); other surgical history; Colonoscopy; Upper gastrointestinal endoscopy; and Mohs surgery (Left, 12/2019). Restrictions Restrictions/Precautions Restrictions/Precautions: Fall Risk,General Precautions Subjective General Chart Reviewed: Yes Family / Caregiver Present: Yes (ER sitter) Subjective Subjective: Pt stated when she takes a deep breath she has 10/10 pain in L ribs. Pt impulsive and does not follow directions well. Easily distracted Orientation Orientation Overall Orientation Status: Within Functional Limits Cognition Objective Transfers Sit to Stand: Contact guard assistance Stand to sit: Contact guard assistance;Minimal Assistance Stand Pivot Transfers: Contact guard assistance Comment: Pt required cues for hand placement with fair follow through Ambulation Ambulation?: Yes Ambulation 1 Surface: level tile Device: Rolling Walker Assistance: Contact guard assistance Gait Deviations: Deviated path;Staggers;Shuffles;Decreased step height;Decreased step length Distance: 30 ft x2 Comments: Pt very easily distracted, required cues for walker navigation adn attention to task with fair follow through. Balance Posture: Fair Sitting - Static: Fair;+ Sitting - Dynamic: Fair Standing - Static: Fair;- Standing - Dynamic: Poor Exercises Hip Flexion: 15 Hip Abduction: 15 Knee Long Arc Quad: 15 Ankle Pumps: 15 Comments: Exercises completed in chair. Cues srequired for proper technique and participation G-Code OutComes Score AM-PAC Score Goals Short term goals Time Frame for Short term goals: 20 visits Short term goal 1: Patient will demonstrate the ability to ambulate 75 feet with RW with supervision assistance in order to ease functional mobility Short term goal 2: Patient will complete bed mobility and transfers independently in order to ease ADLs Short term goal 3: Patient will tolerate 35-45' ther-ex in order to increase endurance and ease ADLs Plan Plan Times per week: 7 times per week Times per day: Twice a day (1 time per day on weekends) Current Treatment Recommendations: Strengthening,Balance Training,Functional Mobility Training,Transfer Training,Gait Training,Neuromuscular Re-education,Manual Therapy - Soft Tissue Mobilization,Safety Education & Training,Home Exercise Program,Positioning,Equipment Evaluation, Education, & procurement,Patient/Caregiver Education & Training Safety Devices Type of devices: Nurse notified,Sitter present,Left in chair Therapy Time Individual Concurrent Group Co-treatment Time In 1015 Time Out 1040 Minutes 25 Ada Gamez, CONTACT FINGER ASSEMBLER NAMAN faxed physician note and PT eval to [facility] this morning so precert could be started. Message left for talent development coordinator there as well. NAMAN following. Raquel ARECHIGA 08/15/2021 NAMAN received return call from [facility] at 7:15 am stating that precert was started yesterday afternoon and information faxed this morning was forwarded to the insurance company and we are awaiting authorization to be able to transfer pt. Raquel ARECHIGA 08/15/2021 Physical Therapy Facility/Department: [facility] ED Initial Assessment NAME: Angella Olson : 1955 Date of Service: 08/14/2021 Discharge Recommendations: Continue to assess pending progress,Subacute/Halfway Facility,ECF with PT Assessment Body structures, Functions, Activity limitations: Decreased functional mobility ;Decreased ADL status;Decreased strength;Decreased safe awareness;Decreased balance;Decreased endurance;Decreased cognition;Decreased high-level IADLs;Decreased coordination;Decreased posture Assessment: PT evaluation completed. Patient initially difficult to arouse and nursing assisted. Patient completed bed mobility with CGAx1 supine to sit and sit to supine with use of bedrails. Patient was able to perform sit to stand transfer with CGAx1 and ambulated 10 steps x2 with RW with minimal assistance. Patient was unsteady and required constant re-directions with poor carryover on safe usafe of rolling walker. Patient was impulsive with ambulation. Patient would benefit from continued therapy in order to address deficits in strength, balance and functional mobility Treatment Diagnosis: difficulty walking Prognosis: Good Decision Making: Medium Complexity PT Education: PT Role;General Safety REQUIRES PT FOLLOW UP: Yes Activity Tolerance Activity Tolerance: Patient limited by cognitive status;Patient Tolerated treatment well Patient Diagnosis(es): There were no encounter diagnoses. 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 has a past surgical history that includes back surgery; Eye surgery; Abdomen surgery; section (1984); other surgical history; Colonoscopy; Upper gastrointestinal endoscopy; and Mohs surgery (Left, 12/2019). Restrictions Restrictions/Precautions Restrictions/Precautions: Fall Risk,General Precautions Vision/Hearing Subjective General Chart Reviewed: Yes Patient assessed for rehabilitation services?: Yes Family / Caregiver Present: No Subjective Subjective: patient would yell out like she was in pain however unable to verbalize pain due to cognitive status Social/Functional History Social/Functional History Lives With: Alone Type of Home: Apartment Home Layout: One level Home Access: Level entry Additional Comments: patient poor historia and would just repeat where she lived when asked about using walker to ambulate with. Patient unable to provide PLOF and per nursing patient lives in an apartment by herself however she is unsure if she uses an assistive device Objective Observation/Palpation Observation: patient initially hard to arouse with nursing assisting in arousal. Patient pleasant however appeared confused often repeating things. Patient on oxygen throughout evaluation AROM RLE (degrees) RLE AROM: WFL AROM LLE (degrees) LLE AROM : WFL Strength RLE Comment: grossly 4-/5 Strength LLE Comment: grossly 4-/5 Bed mobility Bridging: Supervision Rolling to Left: Modified independent Rolling to Right: Modified independent Supine to Sit: Contact guard assistance Sit to Supine: Contact guard assistance Transfers Sit to Stand: Contact guard assistance Stand to sit: Contact guard assistance Ambulation Ambulation?: Yes Ambulation 1 Surface: level tile Device: Rolling Walker Assistance: Minimal assistance Gait Deviations: Deviated path;Staggers;Shuffles Distance: 10 steps x2 Comments: patient very unsteady with ambulation and required constant cues on proper and safe usage of rolling walker due to cognitive status of patient with poor carry over. Balance Sitting - Static: Fair;+ Sitting - Dynamic: Fair Standing - Static: Fair;- Standing - Dynamic: Poor Plan Plan Times per week: 7 times per week Times per day: Twice a day (1 time per day on weekends) Current Treatment Recommendations: Strengthening,Balance Training,Functional Mobility Training,Transfer Training,Gait Training,Neuromuscular Re-education,Manual Therapy - Soft Tissue Mobilization,Safety Education & Training,Home Exercise Program,Positioning,Equipment Evaluation, Education, & procurement,Patient/Caregiver Education & Training Safety Devices Type of devices: Left in bed,Nurse notified (patient not on bed alarm prior to PT arrival) AM-PAC Score AM-PAC Inpatient Mobility without Stair Climbing Raw Score : 13 (08/14/211651) AM-PAC Inpatient without Stair Climbing T-Scale Score : 38.96 (08/14/211651) Mobility Inpatient CMS 0-100% Score: 58.44 (08/14/211651) Mobility Inpatient without Stair CMS G-Code Modifier : CK (08/14/211651) Goals Short term goals Time Frame for Short term goals: 20 visits Short term goal 1: Patient will demonstrate the ability to ambulate 75 feet with RW with supervision assistance in order to ease functional mobility Short term goal 2: Patient will complete bed mobility and transfers independently in order to ease ADLs Short term goal 3: Patient will tolerate 35-45' ther-ex in order to increase endurance and ease ADLs Therapy Time Individual Concurrent Group Co-treatment Time In 1615 Time Out 1635 Minutes 20 Aye Jha PT, DPT Notified by [facility] that Patient insurance is not in network with their facility and she has no out of network benefits. [facility] then notified this clinical writer that they are in network with Patient insurance and that they will start the pre cert as soon as Patient is evaluated by physical therapy. [employer] Mily spoke with equal opportunity director re: PT request. Will continue to follow and assist with discharge placement as appropriate. GENI Cummings 08/14/2021 Met with Patient and spoke with her son, Abe, via telephone conversation re: placement at the ER staff request. Patient resides at [facility] in [place]. Has previously been at [facility] in [place] and neither she nor her son wish to consider placement back at that facility. Discussed other options with them both. Referrals made at both [facility] and the [facility] and am awaiting their review. Patient evaluated for a history of falls. She has noted history of anxiety, depression and bi polar disorder as well. Informed ED nurse, Yessica, that ER physician would need to document findings as well. Will assist with placement as appropriate. GENI Cummings 08/14/2021 documented in this encounter [facility] [employer] Phone: 06-24-2021 History of Present illness Narrative Explained policies and procedures of an echocardiogram/Doppler study. documented in this encounter [facility] [employer] Phone: 05-27-2021 Note Procedure: Liver son ogram with duplex Doppler and elastography. Technique: Real-time grayscale, color-flow Doppler, duplex Doppler with spectral analysis, and shear wave elastography (ElastPQ) of the liver. Still images were reviewed. Clinical information: 65-year-old female with cirrhosis. Comparison: None. Grayscale findings: Liver: Surface nodularity. No focal lesion. Sagittal liver dimension: Mildly enlarged, 18.9 cm. Gallbladder: 1.1 cm stone. No sludge, wall thickening, or pericholecystic fluid. Gallbladder wall thickness: 0.16 cm. Sonographic Spear sign: Absent. Biliary tree: No dilatation. Common duct diameter: 0.37 cm. Pancreas: Partially obscured by bowel gas. Grossly unremarkable. Ascites: None. Doppler findings: Portal veins: Hepatopedal, monophasic flow. Hepatic veins: Hepatofugal, monophasic flow. Hepatic artery: Regular, pulsatile waveform. Elastography: Median tissue stiffness: 1.34 m/s. Stiffness IQR: 0.07 m/s. Stiffness IQR/median velocity: 5% (diagnostic when < 30%). IMPRESSION: 1. Cirrhosis. 2. Normal hepatopedal and hepatofugal portal and hepatic venous flow, respectively. 3. Liver fibrosis staging normal to mild (F0 - F1). 4. Mild hepatomegaly. 5. Cholelithiasis. Liver fibrosis staging Metavir Score m/s ===== Normal F0 0.81 -1.22 Normal - Mild F0 - F1 1.22 - 1.37 Mild - Moderate F2 - F3 1.37 - 2.00 Moderate - Severe F3 - F4 2.00 - 2.64+ Final Dictated by: Chris Coronel MD Dictated DT/TM: 05/27/2021 11:21 am Signed by: Chris Coronel MD Signed (Electronic Signature): 05/27/2021 11:45 am (If Report Is Signed, Electronically Signed in Other Vendor System) [facility] 05-06-2021 Note Chief Complaint Referral for Cirrhosis, hx of fatty liver, RUQ pain History of Present Illness This is regarding a 65-year-old lady with multiple medical problems including hypertension dyslipidemia diabetes question TIA versus a stroke who presented for evaluation of cirrhosis. Patient reported that she had a fall approximately a month ago and she was taken to different hospital where on evaluation on imaging she was found to have cirrhosis of the liver. I do not have all those records at present and this is all per patient reported history. She denied any known history of cirrhosis in the past. Denied any evidence of hepatic decompensation clinically. She does have a known history of nonalcoholic fatty liver disease and and followed up with her PCP. Denied any history of alcohol use disorder, herbal or hormonal supplement use. Reported a remote history of marijuana use in the past. No family history of liver disease. No nausea, vomiting, jaundice or any clinical stigmata of hepatic decompensation. Reported intermittent episodes of right upper quadrant abdominal pain, 5 out of 10 in intensity, nonradiating, without any specific relieving or aggravating factors. Denied any fever or chills, NSAID use. Review of Systems Constitutional: No fevers, chills, sweats Eye: No recent visual problems ENMT: No ear pain, nasal congestion, sore throat Respiratory: No shortness of breath, cough Cardiovascular: No Chest pain, palpitations, syncope Gastrointestinal: As stated in HPI Genitourinary: No hematuria, no urgency/frequency Lymph: Negative for bruising tendency, swollen lymph glands Endocrine: Negative for excessive thirst, excessive hunger Musculoskeletal: No back pain, neck pain, joint pain, muscle pain, decreased range of motion Integumentary: No rash, pruritus, abrasions Neurologic: Alert & oriented X [address], [address], time and situation Psychiatric: No anxiety, depression Physical Exam Vitals & Measurements HR: 62 (Peripheral) BP: 140/80 SpO2: 95 HT: 163 cm WT: 88.6 kg WT: 88.6 kg (Dosing) BMI: 33.35 General: Alert and oriented, well nourished, no acute distress Eye: tracks well, anicteric sclera HENT: Normocephalic, external ear normal, no discharge, moist oral mucosa Neck: Supple, non-tender, trachea midline Lungs: symmetrical expansion, nonlabored respirations Heart: regular rate, distal pulses intact Abdomen: soft, non-tender. Nondistended. Musculoskeletal: no deformity, normal ambulation, no swelling Skin: clean, dry, intact, no jaundice Neurologic: A&Ox3, no focal deficits Psychiatric: Cooperative, appropriate mood and affect Additional Vitals BP Position/Location: Sitting, Left arm Assessment/Plan 1. Cirrhosis Per patient history. Etiology likely NAFLD versus MARROQUIN. We will do a comprehensive work-up for chronic liver disease to rule out infectious, genetic, autoimmune, metabolic causes of liver disease. We will get updated labs to assess the meld score. Discussed at length about the lifestyle and dietary changes per cirrhosis guidelines including 2 g sodium restricted diet, limiting Tylenol to 2 g/day, strict abstinence of alcohol, avoidance of all herbal or hormonal supplements. I will obtain and review outside records. 2. Fatty liver Risk factor includes hypertension, diabetes, dyslipidemia. I will obtain an ultrasound with Doppler and elastography. Comprehensive work-up as mentioned above. Dietary and lifestyle modifications discussed at length including a low-fat high-protein salt restricted diet with a goal of weight loss of 10% over 6-month. 3. Diabetes Risk factor for fatty liver disease. I strongly advised her to follow-up with PCP for optimal control of diabetes, hypertension and dyslipidemia that these are the primary metabolic problems that contribute to NAFLD versus MARROQUIN. 4. Esophageal varices She reported a platelet count in the past of less than 150 K. Given concern for cirrhosis, I will tentatively schedule her for EGD for variceal screening. 5. Immunity status testing We will check for immunity against hepatitis A and B, vaccinate if needed. 6. Cancer, hepatocellular Cirrhosis is a risk factor for hepatocellular cancer. Will continue abdominal imaging and AFP for HCC screening every 6 months. Medical Decision Making Chronic conditions NOT treated during this visit that affected my overall medical decision making: no Treatment plans discussed but not opted for at this time: no Prescribed medication that requires intensive monitoring for toxicity: no I have reviewed the patient?s medication list for medication interactions/contraindications and/or for upcoming procedures: yes Time Spent with the Patient I have personally spent 45 minutes on this date, directly related to today's patient visit, including pre and post visit work, for this date of service. Time listed does not include time spent on separately billable services. Problem List/Past Medical History Ongoing (more content not included)... [facility] 04-19-2021 Evaluation note Diagnosis Stage 3a chronic kidney disease (HCC) Hyperuricemia Other abnormal blood chemistry Essential hypertension Unspecified essential hypertension Nephrolithiasis Calculus of kidney documented in this encounter [facility] [employer] Phone: 1(361) 334-206206-28-2021 History of Present illness Narrative* Kristel Riggins RN - 02/11/2021 1:10 PM EDT Reviewed discharge instructions with patient. All questions answered at this time. Patient wheeled down to front entrance and left via private auto at discharge. * Rosemarie Graham LSW - 02/11/2021 11:05 AM EDT Called the son and he chose [facility] care from the [place] of choice list for home health. Referral made and paper work fax to [facility]. Want to make sure she is taking her medication correctly. GENI Baer * Sophie Solomon MD - 02/11/2021 7:47 AM EDT Progress Note Sophie Solomon MD OBJECTIVE: Patient seen for f/u of Altered mental status. She is better. Confusion resolved Urine culture- ecolli-sensitive to keflex,states she has been taking keflex without side effects ROS: Constitutional: negative for fevers, and negative for chills. Respiratory: negative for shortness of breath, negative for cough, and negative for wheezing Cardiovascular: negative for chest pain, and negative for palpitations Gastrointestinal: negative for abdominal pain, negative for nausea,negative for vomiting, negative for diarrhea, and negative for constipation All other systems were reviewed with the patient and are negative unless otherwise stated in HPI OBJECTIVE: Vitals: Temp: 97.6 F (36.4 C) BP: (!) 141/74 Resp: 16 Pulse: 59 SpO2: 95 % 24HR INTAKE/OUTPUT: Intake/Output Summary (Last 24 hours) at 02/11/2021 0747 Last data filed at 02/11/2021 0648 Gross per 24 hour Intake 360 ml Output 800 ml Net -440 ml Exam: GEN: Awake, alert and oriented x3. EYES: EOMI, pupils equal NECK: Supple. No lymphadenopathy. No carotid bruit CVS: regular rate and rhythm, no audible murmur PULM: CTA, no wheezes, rales or rhonchi, no acute respiratory distress ABD: Bowels sounds normal. Abdomen is soft. No distention. no tenderness to palpation. EXT: no edema bilaterally . No calf tenderness. NEURO: Moves all extremities. Motor and sensory are grossly intact SKIN: No rashes. No skin lesions. Diagnostic Data: All available data reviewed Lab Results Component Value Date WBC 2.9 (L) 02/11/2021 HGB 10.0 (L) 02/11/2021 MCV 88.3 02/11/2021 PLT 113 (L) 02/11/2021 Lab Results Component Value Date GLUCOSE 289 (H) 02/07/2021 BUN 15 02/07/2021 CREATININE 1.08 (H) 02/07/2021 NA 136 02/07/2021 K 4.5 02/07/2021 CALCIUM 9.3 02/07/2021 CL 100 02/07/2021 CO2 25 02/07/2021 PROBLEM LIST: Principal Problem: Altered mental status Active Problems: Stage 3 chronic kidney disease (HCC) Essential hypertension Bipolar disorder with depression (HCC) Diabetes mellitus (HCC) Complicated urinary tract infection Toxic metabolic encephalopathy Resolved Problems: * No resolved hospital problems. * ASSESSMENT / PLAN: Altered mental status Improved with treatment of uti D/c home on keflex uti due to ecolli- d/c homeonkeflex Nutrition status: Well developed, well nourished with no malnutrition DVT prophylaxis: Lovenox High risk medications: none Disposition: Discharge plan is home Sophie Solomon MD , M.D. 02/11/2021 7:47 AM * Tulio Sarmiento RN - 02/11/2021 1:15 AM EDT Patient incontinent of large urine, cleansed up in bathroom, fresh brief. Back to bed, assessment and vitals completed. Patient does c/o chronic pain, see MAR. Denies further needs * Tulio Sarmiento RN - 02/10/2021 9:41 PM EDT Patient is due for IV change 02/11, offered to change this HS and patient refused at this time, did provide new dressing to site * Tulio Sarmiento RN - 02/10/2021 9:41 PM EDT Provided patient with HS snack * Tulio Sarmiento RN - 02/10/2021 6:46 PM EDT Patient setting bed alarm off, she has BM and urination. Patient back to bed vitals and assessment completed, see charting on all Patient with pain, medicated at this time, see charting. Patient denies further needs * Miroslava Victor MD - 02/10/2021 7:57 AM EDT Progress Note SUBJECTIVE: FU related to no shortness of breath noted. No chest pain. OBJECTIVE: Vitals: TEMPERATURE: Current - Temp: 97.5 F (36.4 C); Max - Temp Av.6 F (36.4 C) Min: 97.4 F (36.3 C) Max: 97.9 F (36.6 C) RESPIRATIONS RANGE: Resp Av Min: 18 Max: 18 PULSE RANGE: Pulse Av.4 Min: 55 Max: 63 BLOOD PRESSURE RANGE: Systolic (24hrs), Av , Min:132 , Max:150 ; Diastolic (24hrs), Av, Min:70, Max:78 PULSE OXIMETRY RANGE: SpO2 Av.3 % Min: 92 % Max: 93 % 24HR INTAKE/OUTPUT: Intake/Output Summary (Last 24 hours) at 02/10/2021 0754 Last data filed at 02/10/2021 0313 Gross per 24 hour Intake 2206 ml Output 150 ml Net 2056 ml Exam: General: Alert HEENT: Supple neck & negative Heart: Regular Lungs: clear to auscultation bilaterally & no retractions Abdomen: Normal & soft, No tenderness and BS normal Extremities: No edema Neuro: NonFocal Diagnostic Data: Lab Results Component Value Date WBC 2.4 (L) 02/10/2021 HGB 9.4 (L) 02/10/2021 PLT See Reflexed IPF Result 02/10/2021 Lab Results Component Value Date BUN 15 02/07/2021 CREATININE 1.08 (H) 02/07/2021 NA 136 02/07/2021 K 4.5 02/07/2021 CALCIUM 9.3 02/07/2021 CL 100 02/07/2021 CO2 25 02/07/2021 LABGLOM 51 (L) 02/07/2021 Lab Results Component Value Date WBCUA 10 TO 20 02/07/2021 RBCUA 2 TO 5 02/07/2021 EPITHUA 0 TO 2 02/07/2021 LEUKOCYTESUR SMALL (A) 02/07/2021 SPECGRAV 1.015 02/07/2021 GLUCOSEU NEGATIVE 02/07/2021 KETUA NEGATIVE 02/07/2021 PROTEINU 1+ (A) 02/07/2021 HGBUR 2+ (A) 02/07/2021 CASTUA NOT REPORTED 02/07/2021 CRYSTUA NOT REPORTED 02/07/2021 BACTERIA 3+ (A) 02/07/2021 YEAST NOT REPORTED 02/07/2021 No results found for: MYOGLOBIN, TROPONINT, CKTOTAL, CKMB, PROBNP CT ABDOMEN PELVIS WO CONTRAST Additional Contrast? None Result Date: 02/07/2021 EXAMINATION: CT OF THE ABDOMEN AND PELVIS WITHOUT CONTRAST 02/07/2021 8:10 pm TECHNIQUE: CT of the abdomen and pelvis was performed without the administration of intravenous contrast. Multiplanar reformatted images are provided for review. Dose modulation, iterative reconstruction, and/or weight based adjustment of the mA/kV was utilized to reduce the radiation dose to as low as reasonably achievab le. COMPARISON: None. HISTORY: ORDERING SYSTEM PROVIDED HISTORY: patient with falls and pain to pelvis TECHNOLOGIST PROVIDED HISTORY: patient with falls and pain to pelvis Decision Support Exception - unselect if not a suspected or confirmed emergency medical condition->Emergency Medical Condition (MA) FINDINGS: Lower Chest: Three-vessel coronary artery calcification. Organs: Cirrhotic liver morphology. Cholelithiasis. No biliary ductal diltation. Pancreas is unremarkable. Adrenals are unremarkable. Mild splenomegaly. No renal calculi or hydronephrosis. Moderate calcific atherosclerosis. GI/Bowel: Bowel is non-dilated without wall thickening. Appendix is normal. Pelvis: Unremarkable. Peritoneum/Retroperitoneum:No free fluid, free air, organized fluid collection or lymphadenopathy. Bones: Multilevel degenerative disc disease. Nonspecific skin thickening of the anterior abdominal wall. 1. No acute process in the abdomen or pelvis. 2. Cirrhotic liver morphology with mild splenomegaly.Consider nonemergent liver protocol MRI for HCC screening. 3. Cholelithiasis. XR CHEST (SINGLE VIEW FRONTAL) Result Date: 02/07/2021 EXAMINATION: ONE XRAY VIEW OF THE CHEST 02/07/2021 5:08 pm COMPARISON: 11/23/2019, 02/01/2020 HISTORY: ORDERING SYSTEM PROVIDED HISTORY: ms change and fever TECHNOLOGIST PROVIDED HISTORY: ms change and fever FINDINGS: Hypoventilated lungs with similar linear scarring at the left lung base. No acute focal airspace process. No pneumothorax or pleural effusion. Cardiomediastinal contours are within normal limits and unchanged. Unchanged truncation of the right distal clavicle. Remote posttraumatic irregularity of the proximal right humerus. Cervical fusion hardware present. No acute bony findings. Hypoventilated lungs with left basilar scarring. No acute focal airspace process. CT Head WO Contrast Result Date: 02/07/2021 EXAMINATION: CT OF THE HEAD WITHOUT CONTRAST 02/07/2021 7:09 pm TECHNIQUE: CT of the head was performed without the administration of intravenous contrast. Dose modulation, iterative reconstruction, and/or weight based adjustment of the mA/kV was utilized to reduce the radiation dose to as low as reasonably achievable. COMPARISON: CT study from April 28, 2020. HISTORY: ORDERING SYSTEM PROVIDEDHISTORY: fall with ms change TECHNOLOGIST PROVIDED HISTORY: fall with ms change Decision Support Exception - unselect if not a suspected or confirmed emergency medical condition->Emergency MedicalCondition (MA) FINDINGS: BRAIN/VENTRICLES: The gyri and sulci have a normal appearance. There is moderate cortical and cerebellar volume loss with associated ex vacuo ventricular dilation. Moderate diffuse periventricular and subcortical deep white matter hypoattenuation noted, findings compatible with chronic small vessel ischemic disease. The mckoy-white matter differentiation is otherwise preserved throughout. There is no acute hemorrhage, mass, or mass effect. No evidence of acute territorial infarct. No abnormal extraaxial fluid collections. ORBITS: The visualized portion of the orbits demonstrate no acute abnormality. SINUSES: The mastoid air cells are normally aerated. The visualized paranasal sinuses are grossly clear. SOFT TISSUES/SKULL: No significant abnormality of the visualized skull or soft tissues. No acute fracture. No scalp hematoma. No evidence of acute intracranial process. Moderate atrophy and chronic small vessel ischemic changes noted. CT CERVICAL SPINE WO CONTRAST Result Date: 02/07/2021 EXAMINATION: CT OF THE CERVICAL SPINE WITHOUT CONTRAST 02/07/2021 7:09 pm TECHNIQUE: CT of the cervical spine was performed without the administration of intravenous contrast. Multiplanar reformatted images are provided for review. Dose modulation, iterative reconstruction, and/or weight based adjustment of the mA/kV was utilized to reduce the radiation dose to as low as reasonably achievable. COMPARISON: CT study from April 28, 2020. HISTORY: ORDERING SYSTEM PROVIDED HISTORY: fall and pain TECHNOLOGIST PROVIDED HISTORY: fall and pain Decision Support Exception - unselect if not a suspected or confirmed emergency medical condition->Emergency Medical Condition (MA) FINDINGS: BONES/ALIGNMENT: Bone mineralization is normal. The vertebral bodies and posterior elements appear intact and appropriately aligned without acute fracture or subluxation. Vertebral body stature is maintained throughout as is the normal cervical lordosis. DEGENERATIVE CHANGES: There are again seen post-surgical changes of discectomy and anterior spinal fusion involving the C5- C7 levels, remaining in stable alignment without evidence of hardware complication. No significant bony neural foraminal narrowing. SOFT TISSUES: No paraspinal soft tissue abnormality. The visualized lung apices are grossly clear. Post-surgical changes of the cervical spine. No acute fracture or subluxation. No significant change from the prior study. ASSESSMENT: Principal Problem: Altered mental status Active Problems: Stage 3 chronic kidney disease (HCC) Essential hypertension Bipolar disorder with depression (HCC) Diabetes mellitus (HCC) Complicated urinary tract infection Toxic metabolic encephalopathy Resolved Problems: * No resolved hospital problems. * Patient Active Problem List Diagnosis Date Noted Complicated urinary tract infection 02/08/2021 Altered mental status 02/08/2021 Toxic metabolic encephalopathy 02/08/2021 Dyslipidemia 12/13/2020 Gastroesophageal reflux disease 12/13/2020 Closed 2-part displaced fracture of surgical neck of right humerus 04/28/2020 Head injury 04/28/2020 Closed fracture of nasal bones 04/28/2020 Morbidly obese (HCC) 04/17/2020 Positive FIT (fecal immunochemical test) 02/04/2020 Frequency of urination 12/13/2019 Mixed incontinence 12/13/2019 Nocturia 12/13/2019 Fall at home, initial encounter 11/24/2019 Closed fracture of spinous process of cervical vertebra (HCC) 11/24/2019 Malabsorption 09/22/2019 Iron deficiency anemia 07/25/2019 History of diabetic gastroparesis 07/13/2019 Obesity (BMI 30-39.9) 07/13/2019 Chronic back pain 06/03/2019 Stage 3 chronic kidney disease (HCC) 06/03/2019 Essential hypertension 06/03/2019 Bipolar disorder with depression (HCC) 06/03/2019 Diabetes mellitus ([facility]) 06/03/2019 Type 2 diabetes mellitus, with long-term current use of insulin ([facility]) 06/03/2019 PLAN: Continue treatment. Critical Care Time: 0 Miroslava Victor MD , M.D. * Pamela Boone RN - 02/09/2021 6:32 PM EDT Pt sitting up in chair when clinical writer entered room. Pt is A&O x4. Vitals and assessment as charted. Pt denies pain at this time. Retail Assistant assisted pt back into bed with a one assist and a walker. Pt denies any further needs at this time. Call light within reach. Bed alarm on. * Miroslava Victor MD - 02/09/2021 7:17 AM EDT Progress Note SUBJECTIVE: FU related to no shortness of breath noted. No chest pain. OBJECTIVE: Vitals: TEMPERATURE: Current - Temp: 98.2 F (36.8 C); Max - Temp Av.1 F (36.7 C) Min: 97.2 F (36.2 C) Max: 98.6 F (37 C) RESPIRATIONS RANGE: Resp Av Min: 18 Max: 18 PULSE RANGE: Pulse Av Min: 62 Max: 65 BLOOD PRESSURE RANGE: Systolic (24hrs), Av , Min:133 , Max:155 ; Diastolic (24hrs), Av, Min:64, Max:77 PULSE OXIMETRY RANGE: SpO2 Av.2 % Min: 91 % Max: 97 % 24HR INTAKE/OUTPUT: Intake/Output Summary (Last 24 hours) at 02/09/2021 0717 Last data filed at 02/09/2021 0338 Gross per 24 hour Intake 2944.61 ml Output 100 ml Net 2844.61 ml Exam: General: Alert HEENT: Supple neck & negative Heart: Regular Lungs: clear to auscultation bilaterally & no retractions Abdomen: Normal & soft, No tenderness and BS normal Extremities: No edema Neuro: NonFocal Diagnostic Data: Lab Results Component Value Date WBC 3.1 (L) 02/09/2021 HGB 10.2 (L) 02/09/2021 PLT See Reflexed IPF Result 02/09/2021 Lab Results Component Value Date BUN 15 02/07/2021 CREATININE 1.08 (H) 02/07/2021 NA 136 02/07/2021 K 4.5 02/07/2021 CALCIUM 9.3 02/07/2021 CL 100 02/07/2021 CO2 25 02/07/2021 LABGLOM 51 (L) 02/07/2021 Lab Results Component Value Date WBCUA 10 TO 20 02/07/2021 RBCUA 2 TO 5 02/07/2021 EPITHUA 0 TO 2 02/07/2021 LEUKOCYTESUR SMALL (A) 02/07/2021 SPECGRAV 1.015 02/07/2021 GLUCOSEU NEGATIVE 02/07/2021 KETUA NEGATIVE 02/07/2021 PROTEINU 1+ (A) 02/07/2021 HGBUR 2+ (A) 02/07/2021 CASTUA NOT REPORTED 02/07/2021 CRYSTUA NOT REPORTED 02/07/2021 BACTERIA 3+ (A) 02/07/2021 YEAST NOT REPORTED 02/07/2021 No results found for: MYOGLOBIN, TROPONINT, CKTOTAL, CKMB, PROBNP CT ABDOMEN PELVIS WO CONTRAST Additional Contrast? None Result Date: 02/07/2021 EXAMINATION: CT OF THE ABDOMEN AND PELVIS WITHOUT CONTRAST 02/07/2021 8:10 pm TECHNIQUE: CT of the abdomen and pelvis was performed without the administration of intravenous contrast. Multiplanar reformatted images are provided for review. Dose modulation, iterative reconstruction, and/or weight based adjustment of the mA/kV was utilized to reduce the radiation dose to as low as reasonably achievab le. COMPARISON: None. HISTORY: ORDERING SYSTEM PROVIDED HISTORY: patient with falls and pain to pelvis TECHNOLOGIST PROVIDED HISTORY: patient with falls and pain to pelvis Decision Support Exception - unselect if not a suspected or confirmed emergency medical condition->Emergency Medical Condition (MA) FINDINGS: Lower Chest: Three-vessel coronary artery calcification. Organs: Cirrhotic liver morphology. Cholelithiasis. No biliary ductal diltation. Pancreas is unremarkable. Adrenals are unremarkable. Mild splenomegaly. No renal calculi or hydronephrosis. Moderate calcific atherosclerosis. GI/Bowel: Bowel is non-dilated without wall thickening. Appendix is normal. Pelvis: Unremarkable. Peritoneum/Retroperitoneum:No free fluid, free air, organized fluid collection or lymphadenopathy. Bones: Multilevel degenerative disc disease. Nonspecific skin thickening of the anterior abdominal wall. 1. No acute process in the abdomen or pelvis. 2. Cirrhotic liver morphology with mild splenomegaly.Consider nonemergent liver protocol MRI for HCC screening. 3. Cholelithiasis. XR CHEST (SINGLE VIEW FRONTAL) Result Date: 02/07/2021 EXAMINATION: ONE XRAY VIEW OF THE CHEST 02/07/2021 5:08 pm COMPARISON: 11/23/2019, 02/01/2020 HISTORY: ORDERING SYSTEM PROVIDED HISTORY: ms change and fever TECHNOLOGIST PROVIDED HISTORY: ms change and fever FINDINGS: Hypoventilated lungs with similar linear scarring at the left lung base. No acute focal airspace process. No pneumothorax or pleural effusion. Cardiomediastinal contours are within normal limits and unchanged. Unchanged truncation of the right distal clavicle. Remote posttraumatic irregularity of the proximal right humerus. Cervical fusion hardware present. No acute bony findings. Hypoventilated lungs with left basilar scarring. No acute focal airspace process. CT Head WO Contrast Result Date: 02/07/2021 EXAMINATION: CT OF THE HEAD WITHOUT CONTRAST 02/07/2021 7:09 pm TECHNIQUE: CT of the head was performed without the administration of intravenous contrast. Dose modulation, iterative reconstruction, and/or weight based adjustment of the mA/kV was utilized to reduce the radiation dose to as low as reasonably achievable. COMPARISON: CT study from April 28, 2020. HISTORY: ORDERING SYSTEM PROVIDEDHISTORY: fall with ms change TECHNOLOGIST PROVIDED HISTORY: fall with ms change Decision Support Exception - unselect if not a suspected or confirmed emergency medical condition->Emergency MedicalCondition (MA) FINDINGS: BRAIN/VENTRICLES: The gyri and sulci have a normal appearance. There is moderate cortical and cerebellar volume loss with associated ex vacuo ventricular dilation. Moderate diffuse periventricular and subcortical deep white matter hypoattenuation noted, findings compatible with chronic small vessel ischemic disease. The mckoy-white matter differentiation is otherwise preserved throughout. There is no acute hemorrhage, mass, or mass effect. No evidence of acute territorial infarct. No abnormal extraaxial fluid collections. ORBITS: The visualized portion of the orbits demonstrate no acute abnormality. SINUSES: The mastoid air cells are normally aerated. The visualized paranasal sinuses are grossly clear. SOFT TISSUES/SKULL: No significant abnormality of the visualized skull or soft tissues. No acute fracture. No scalp hematoma. No evidence of acute intracranial process. Moderate atrophy and chronic small vessel ischemic changes noted. CT CERVICAL SPINE WO CONTRAST Result Date: 02/07/2021 EXAMINATION: CT OF THE CERVICAL SPINE WITHOUT CONTRAST 02/07/2021 7:09 pm TECHNIQUE: CT of the cervical spine was performed without the administration of intravenous contrast. Multiplanar reformatted images are provided for review. Dose modulation, iterative reconstruction, and/or weight based adjustment of the mA/kV was utilized to reduce the radiation dose to as low as reasonably achievable. COMPARISON: CT study from April 28, 2020. HISTORY: ORDERING SYSTEM PROVIDED HISTORY: fall and pain TECHNOLOGIST PROVIDED HISTORY: fall and pain Decision Support Exception - unselect if not a suspected or confirmed emergency medical condition->Emergency Medical Condition (MA) FINDINGS: BONES/ALIGNMENT: Bone mineralization is normal. The vertebral bodies and posterior elements appear intact and appropriately aligned without acute fracture or subluxation. Vertebral body stature is maintained throughout as is the normal cervical lordosis. DEGENERATIVE CHANGES: There are again seen post-surgical changes of discectomy and anterior spinal fusion involving the C5- C7 levels, remaining in stable alignment without evidence of hardware complication. No significant bony neural foraminal narrowing. SOFT TISSUES: No paraspinal soft tissue abnormality. The visualized lung apices are grossly clear. Post-surgical changes of the cervical spine. No acute fracture or subluxation. No significant change from the prior study. ASSESSMENT: Principal Problem: Altered mental status Active Problems: Stage 3 chronic kidney disease (HCC) Essential hypertension Bipolar disorder with depression (HCC) Diabetes mellitus (HCC) Complicated urinary tract infection Toxic metabolic encephalopathy Resolved Problems: * No resolved hospital problems. * Patient Active Problem List Diagnosis Date Noted Complicated urinary tract infection 02/08/2021 Altered mental status 02/08/2021 Toxic metabolic encephalopathy 02/08/2021 Dyslipidemia 12/13/2020 Gastroesophageal reflux disease 12/13/2020 Closed 2-part displaced fracture of surgical neck of right humerus 04/28/2020 Head injury 04/28/2020 Closed fracture of nasal bones 04/28/2020 Morbidly obese (HCC) 04/17/2020 Positive FIT (fecal immunochemical test) 02/04/2020 Frequency of urination 12/13/2019 Mixed incontinence 12/13/2019 Nocturia 12/13/2019 Fall at home, initial encounter 11/24/2019 Closed fracture of spinous process of cervical vertebra (HCC) 11/24/2019 Malabsorption 09/22/2019 Iron deficiency anemia 07/25/2019 History of diabetic gastroparesis 07/13/2019 Obesity (BMI 30-39.9) 07/13/2019 Chronic back pain 06/03/2019 Stage 3 chronic kidney disease ([facility]) 06/03/2019 Essential hypertension 06/03/2019 Bipolar disorder with depression ([facility]) 06/03/2019 Diabetes mellitus ([facility]) 06/03/2019 Type 2 diabetes mellitus, with long-term current use of insulin ([facility]) 06/03/2019 PLAN: Continue treatment. Critical Care Time: 0 Miroslava Victor MD , M.D. * Pamela Boone RN - 02/08/2021 7:01 PM EDT Pt is sitting up in bed eating supper. Pt A&O but does not know the month. Vitals and assessment as charted. Pt denies pain at this time. Call light within reach. Bed alarm on. * Pamela Boone RN - 02/08/2021 6:35 PM EDT Pt given Benadryl 25 mg IV at this time. Dose given before Merrem, will continue to monitor. * Sophie Solomon MD - 02/08/2021 2:15 PM EDT Physician Progress Note PATIENT: ANGELLA OLSON [facility] #: [id number] : 1955 ADMIT DATE: 02/07/2021 6:48 PM DISCH DATE: RESPONDING PROVIDER #: SOPHIE SOLOMON MD QUERY TEXT: Pt admitted because of altered mental status probably from UTI If possible, please document in the progress notes and discharge summary if you are evaluating and / or treating any of the following: The medical record reflects the following: Risk Factor: DM, CKD, HTN, bipolar disorder Clinical Indicators: UA 3+bacteria, positive nitrite, small leukocyte esterase, urine culture in process; Per ED provider: confused and obtunded however she does talk and seems to move all 4 extremities; Per H&P: Confused, disoriented, restless in bed; CT head: No evidence of acute intracranial process. Treatment: IV NS bolus and infusion, IV meropenem Bernabe Rice RN, CCDS Clinical Animal Care Worker [phone] . . Options provided: -- Metabolic encephalopathy -- Toxic encephalopathy -- Toxic metabolic encephalopathy -- Delirium due to, Please specify cause. -- Delirium -- Other - I will add my own diagnosis -- Disagree - Not applicable / Not valid -- Disagree - Clinically unable to determine / Unknown -- Refer to Clinical Documentation Reviewer PROVIDER RESPONSE TEXT: This patient has toxic encephalopathy. Query created by: Nancy Rice on 02/08/2021 11:31 AM Electronically signed by: SOPHIE SOLOMON MD 02/08/2021 2:13 PM * Rosemarie Graham LSW - 02/08/2021 2:08 PM EDT Discussed discharge plans with the patient and son. Patient is a 65 year old female here with Altered mental status. She is alert and oriented with some confusion which is improving. Patient was verysleepy during the conversation but did answer the question appropriately. Patient is and lives at the [facility]. She uses a Bi-pap machine, oxygen, cane and or walker at home. Patient does her own cooking and cleaning. She is independent with his ADL's. Patient manages her own medications. Family provides the transportation. She has no outside services in the home. Her PCP is Mukesh Castanon APRN . She has medical insurance that helps with medication costs. The discharge plan is home with home health. Gave the son the [place] of Choice list to choose a home health agency from. She has advance directives but not on file. Son stated he will be bring them in for our records. INFANTRY INDIRECT FIRE CREWMEMBER to monitor and assist with any needs or concerns as they arise. GENI Baer * Snow Hawk RD, LD - 02/08/2021 11:18 AM EDT Comprehensive Nutrition Assessment Type and Reason for Visit: Initial Nutrition Recommendations/Plan: Continue current diet. Nutrition Assessment: Altered nutrition related labs r/t endocrine dysfunction aeb A1c 8.6. Pt admitted with AMS and UTI. On baclofen with a potential for weight gain. Education not appropriate due to confusion per nurse. Pt having difficulty feeding herself lunch, nurse reports she needs awakened every few minutes and needing some assistance. Attach CC diet to d/c. Malnutrition Assessment: Malnutrition Status: Insufficient data Context: Acute Illness Findings of the 6 clinical characteristics of malnutrition: Energy Intake: Unable to assess Weight Loss: No significant weight loss Body Fat Loss: No significant body fat loss Muscle Mass Loss: No significant muscle mass loss Fluid Accumulation: No significant fluid accumulation Flaking Roll Operator Strength: Not Performed Nutrition Related Findings: appears well nourished Wounds: None Current Nutrition Therapies: ADULT DIET; Regular; 4 carb choices (60 gm/meal) Anthropometric Measures: Height: 5' 4 (162.6 cm) Current Body Weight: 200 lb 9.9 oz (91 kg) Admission Body Weight: 200 lb 9.9 oz (91 kg) Usual Body Weight: 198 lb (89.8 kg) [place] Body Weight: 120 lbs; % [place] Body Weight 167.2 % BMI: 34.4 BMI Categories: Obese Class 1 (BMI 30.0-34.9) Nutrition Diagnosis: Altered nutrition-related lab values related to endocrine dysfuntion as evidenced by lab values Nutrition Interventions: Food and/or Nutrient Delivery: Continue Current Diet Nutrition Education/Counseling: Education needed Coordination of Nutrition Care: Continue to monitor while inpatient Goals: PO > 75% of meals with improved glycemic control and consistent meals/carbohydrates Lab Results Component Value Date LABA1C 8.6 12/03/2020 Recent Labs 02/08/21 0157 02/08/21 0656 02/08/21 1116 POCGLU 165* 164* 225* Lab Results Component Value Date TRIG 160 12/03/2020 HDL 44 12/03/2020 Recent Labs 02/07/21 1841 NA 136 K 4.5 CL 100 CO2 25 BUN 15 CREATININE 1.08* GLUCOSE 289* ALT 24 ALKPHOS 114* GFR Lab Results Component Value Date LABALBU 3.8 02/07/2021 Nutrition Monitoring and Evaluation: Behavioral-Environmental Outcomes: Knowledge or Skill Food/Nutrient Intake Outcomes: Food and Nutrient Intake Physical Signs/Symptoms Outcomes: Biochemical Data, Weight Discharge Planning: Continue current diet Contact: [phone] * Reji Solitario [facility] - 02/08/2021 10:07 AM EDT Images from the original note were not included. [facility] Herbal Suspension To avoid potential drug interactions with herbal and nutritional supplements, it is the policy of [facility] to suspend all orders for these products at the time of admission. Per hospitalpolicy the following herbal/nutritional supplements were suspended during the hospital stay: Centrum Silver 50+Women TABS 1 tablet Thank you, Reji Solitario, PharmD 02/08/2021 10:07 AM * Batsheva Contreras RN - 02/08/2021 8:28 AM EDT Patients son Keny called in and provided update. Patient continues to fidget around in the bed and have continuous eye movement. Retail Assistant had assisted patient in eating her breakfast this morning asshe was not following cues to feed herself. Phone number verified in the chart Incase there were a need to contact him. * Batsheva Contreras RN - 02/08/2021 7:[address] Solomon at patients bedside at this time. * Lucretia Michaels RN - 02/08/2021 3:37 AM EDT Benadryl IV given prior to IV antibiotic given. Retail Assistant stayed at bedside during antibiotic administration, no s/s of distress noted. Patient resting with eyes closed, no changes in respirations rate or depth. Call light and bedside table with in reach. Bed alarm on for safety. Will continue to monitor. * Adriana Watkins [facility] - 02/08/2021 1:33 AM EDT RESPIRATORY ASSESSMENT PROTOCOL Patient Name: Angella Olson Room#: [id number] : 1955 Admitting diagnosis: No admission diagnoses are documented for this encounter. 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, left Type 2 diabetes mellitus without complication (HCC) PATIENT ASSESSMENT LABORATORY DATA Hematology: Lab Results Component Value Date WBC 6.8 02/07/2021 RBC 4.03 02/07/2021 HGB 11.2 02/07/2021 HCT 35.6 02/07/2021 PLT 110 02/07/2021 Chemistry: No results found for: PHART, FNR6UQL, PO2ART, Z5PHLIAK, VWO7CCM, PBEA VITALS Pulse: 78 Resp: 20 BP: 115/67 SpO2: 93 % O2 Device: Nasal cannula Temp: 99.7 F (37.6 C) SKIN COLOR [x] Normal [] Pale [] Dusky [] Cyanotic RESPIRATORY PATTERN [x] Normal [] Dyspnea [] Singh-Bhatia [] Kussmaul [] Biots AMBULATORY [x] Yes [] No [] With Assistance PEAK FLOW Predicted: Personal Best: VITAL CAPACITY Predicted value: ml Actual Value: ml 30% of Predicted: ml Patient Acuity 0 1 2 3 4 Score Level of Concious (LOC) [] Alert & Oriented or Pt normal LOC [x] Confused;follows directions [] Confused & uncooper-ative [] Obtunded [] Comatose 1 Respiratory Rate (RR) [] Reg. rate & pattern. 12 - 20 bpm [x] Increased RR. Greater than 20 bpm [] SOB w/ exertion or RR greater than 24 bpm [] Access- ory muscle use at rest. Abn. resp. [] SOB at rest. 1 Bilateral Breath Sounds (BBS) [x] Clear [] Diminish-ed bases [] Diminish-ed t/o, or rales [] Sporadic, scattered wheezes or rhonchi [] Persistentwheezes and, or absent BBS 0 Cough [x] Strong, effective, & non-prod. [] Effective & prod. Less than 25 ml (2 TBSP) over past 24 hrs [] Ineffective & non-prod to less than 25 ML over past 24 hrs [] Ineffective and, or greater than 25 ml sputum prod. past 24 hrs. [] Nonspon- taneous; Requires suctioning 1 Pulmonary History (PULM HX) [] No smoking and no chronic pulmonaryhistory [x] Former smoker. Quit over 12 mos. ago [] Current smoker or quit w/ in 12 mos [] Pulm. History and, or 20 pk/yr smoking hx [] Admitted w/ acute pulm. dx and, or has been admitted w/ pulm. dx 2 or more times over past 12 mos 1 Surgical History this Admit (SURG HX) [x] No surgery [] General surgery [] Lower abdominal [] Thoracic or upper abdominal [] Thoracic w/ pulm. disease 0 Chest X-Ray (CXR)/CT Scan [x] Clear or not applicable [] Not available [] Atelect- asis or pleural effusions [] Localized infiltrate or pulm. edema [] Con-solidated Infiltrates, bilateral, or in more than 1 lobe 0 Slow or Forced VC, FEV1 OR PEFR (PULM FXN) [x] 80% or greater, or not indicated [] Pt. unable to perform [] FEV1 or PEFR or VC 51-79%. [] FEV1 or PEFR or VC 30-49% [] FEV1 or PEFR or VC less than 30% 0 TOTAL ACUITY: 3 CARE PLAN If Acuity Level is 2, 3, or 4 in any of the following: [x] BILATERAL BREATH SOUNDS (BBS) [x] PULMONARY HISTORY (PULM HX) [] PULMONARY FUNCTION (PULM FX) Goal: Improve respiratory functions in patients with airway disease and decrease WOB [x] AEROSOL PROTOCOL No meds ordered. Wears cpap at night at home, son bringing in tomorrow Total Acuity: 16-32 [] Secondary Assessment in 24 hrs Total Acuity: 9-15 [] Secondary Assessment in 24 hrs Total Acuity: 4-8 [] Secondary Assessment in 48 hrs Total Acuity: 0-3 [] Secondary Assessment in 72 hrs HHN AEROSOL THERAPY with [physician-ordered bronchodilator(s)] q 4 & Albuterol PRN q2 hrs. Breath-Actuated Neb if BBS Acuity = 4, and pt. can use MP. Notify physician if condition deteriorates. HHN AEROSOL THERAPY with [physician-ordered bronchodilator(s)] QID and Albuterol PRN q4 hrs. Breath-Actuated Neb if BBS Acuity = 4, and pt. can use MP. Notify physician if condition deteriorates. MDI THERAPY with 2 actuations of [physician-ordered bronchodilator(s)] via spacer TID Albuterol and PRNq4 hrs. If unable to utilize MDI: HHN [physician-ordered bronchodilator(s)] TID and Albuterol PRN q4 hrs. Notify physician if condition deteriorates. MDI THERAPY with [physician-ordered bronchodilator(s)] via spacer TID PRN. If unable to utilize MDI: HHN [physician-ordered bronchodilator(s)] TID PRN. Notify physician if condition deteriorates. If Acuity Level is 2, 3, or 4 in any of the following: [] COUGH [] SURGICAL HISTORY (SURG HX) [] CHEST XRAY (CXR) Goal: Improvement in sputum mobilization in patients with ineffective airway clearance. Reverse atelectasis. [] Bronchopulmonary Hygiene Protocol Total Acuity: 16-32 [] Secondary Assessment in 24 hrs Total Acuity: 9-15 [] Secondary Assessment in 24 hrs Total Acuity: 4-8 [] Secondary Assessment in 48 hrs Total Acuity: 0-3 [] Secondary Assessment in 72 hrs METANEB QID with [physician-ordered bronchodilator(s)] if CXR Acuity = 4; otherwise: PD&P, PEP, or Vest QID & PRN NT Sxn PRN for ineffective cough METANEB QID with [physician-ordered bronchodilator(s)] if CXR Acuity = 4; otherwise: PD&P, PEP, or Vest TID & PRN NT Sxn PRN for ineffective cough Instruct patient to self-perform IS q1hr WA Directed Cough self-performed q1hr WA If Acuity Level is 2 or above in the following: [] PULMONARY HISTORY (PULM HX) Goal: Assist patient in quitting smoking to slow or stop the progression of lung disease. [] Smoking Cessation Protocol SMOKING CESSATION EDUCATION provided according to policy RT_201: (miroslava with an X) ____Yes ____ No ____ NA Smoking Cessation Booklet given: ____Yes ____No ____Patient Refused * Lucretia Michaels RN - 02/08/2021 12:30 AM EDT Retail Assistant unable to get verify history and medications due to confusion. Son at bedside unable to answer also, states will bring in medication list in morning. Patient able to tell me her full name, DOBand where she is at this time, states does not know the year. Will continue to monitor. * Lucretia Michaels RN - 02/08/2021 12:01 AM EDT Patient to room at 2345 per ER cart. Retail Assistant and er staff transferred patient from cart to bed, patient poorly tolerated transferring by standing and pivoting. Patient disoriented and restless, constant movement in bed. Patient incontinent and brief changed at this time. Verbal bedside report received. Assessment and admit to be assessed. [facility] Phone: [phone] 955-530206-28-2021 Hospital Discharge instructions* Discharge Instr - Activity* Kristel Riggins RN - 02/11/2021 10:41 AM EDT No restrictions to your activity. * Discharge Instr - Diet* Kristel Riggins RN - 02/11/2021 10:41 AM EDT Good nutrition is important when healing from an illness, injury, or surgery. Follow any nutrition recommendations given to you during your hospital stay. If you were given an oral nutrition supplement while in the hospital, continue to take this supplement at home. You can take it with meals, in-between meals, and/or before bedtime. These supplements can be purchased at most local grocery stores, pharmacies, and [employer]st[employer]. If you have any questions about your diet or nutrition, call the hospital and ask for the dietitian. Resume carb control diet. * Attachments The following attachments cannot be sent through Care Everywhere. * Diabetes Diet Meal Planning: General Info (Moroccan) * UTI (Urinary Tract Infection): Female (Moroccan) [facility] across [employer] Work Phone: [phone]) 303-331706-28-2021 Hospital course Narrative* Sondra Weaver APRN - NEWSPAPER COPY EDITOR - 02/11/2021 10:02 AM EDT Discharge Summary Angella Olson : 1955 Admit date: 02/07/2021 Discharge date: 02/11/2021 Admitting Physician: Sophie Solomon MD Discharge Diagnoses: Principal Problem: Altered mental status Active Problems: Stage 3 chronic kidney disease (HCC) Essential hypertension Bipolar disorder with depression (HCC) Diabetes mellitus (HCC) Complicated urinary tract infection Toxic metabolic encephalopathy Resolved Problems: * No resolved hospital problems. * Hospital Course: Angella Olson is a 65 y.o. female admitted with mental status. She presented for evaluation of sudden onset of confusion. She was noticed to have a new onset of confusion and was brought by EMS to the hospital. On arrival she continued to be disoriented and confused. Patient had no focal deficits but urine was showing significant signs of infection and she was admitted for IV antibiotics and fluids. Patient's mentation has improved she is back to baseline. She is afebrile and tolerating diet and activity well. Her cultures for blood are negative. Her urine culture was positive for E. coli. Patient will be discharged home on Keflex. Although patient has allergy to penicillins patient stated that she is taking Keflex in the past and tolerated that well. This was reviewed with Dr. Solomon and this was his plan of care. Consultants: none Procedures: none Complications: none Discharge Condition: fair Exam: GEN: alert and oriented to person, place and time, well-developed and well- nourished, in no acute distress EYES: No gross abnormalities., PERRL and EOMI NECK: normal, supple, no lymphadenopathy, no carotid bruits PULM: clear to auscultation bilaterally- no wheezes, rales or rhonchi, normal air movement, no respiratory distress COR: regular rate & rhythm, no murmurs, no gallops, S1 normal and S2 normal ABD: soft, non-tender, non-distended, normal bowel sounds, no masses or organomegaly EXT: no cyanosis, clubbing or edema present NEURO: follows commands, [place], no deficits SKIN: no rashes or significant lesions Significant Diagnostic Studies: Lab Results Component Value Date WBC 2.9 (L) 02/11/2021 HGB 10.0 (L) 02/11/2021 PLT 113 (L) 02/11/2021 Lab Results Component Value Date BUN 15 02/07/2021 CREATININE 1.08 (H) 02/07/2021 NA 136 02/07/2021 K 4.5 02/07/2021 CALCIUM 9.3 02/07/2021 CL 100 02/07/2021 CO2 25 02/07/2021 LABGLOM 51 (L) 02/07/2021 Lab Results Component Value Date WBCUA 10 TO 20 02/07/2021 RBCUA 2 TO 5 02/07/2021 EPITHUA 0 TO 2 02/07/2021 LEUKOCYTESUR SMALL (A) 02/07/2021 SPECGRAV 1.015 02/07/2021 GLUCOSEU NEGATIVE 02/07/2021 KETUA NEGATIVE 02/07/2021 PROTEINU 1+ (A) 02/07/2021 HGBUR 2+ (A) 02/07/2021 CASTUA NOT REPORTED 02/07/2021 CRYSTUA NOT REPORTED 02/07/2021 BACTERIA 3+ (A) 02/07/2021 YEAST NOT REPORTED 02/07/2021 CT ABDOMEN PELVIS WO CONTRAST Additional Contrast? None Result Date: 02/07/2021 EXAMINATION: CT OF THE ABDOMEN AND PELVIS WITHOUT CONTRAST 02/07/2021 8:10 pm TECHNIQUE: CT of the abdomen and pelvis was performed without the administration of intravenous contrast. Multiplanar reformatted images are provided for review. Dose modulation, iterative reconstruction, and/or weight based adjustment of the mA/kV was utilized to reduce the radiation dose to as low as reasonably achievable. COMPARISON: None. HISTORY: ORDERING SYSTEM PROVIDED HISTORY: patient with falls and pain to pelvis TECHNOLOGIST PROVIDED HISTORY: patient with falls and pain to pelvis Decision Support Exception - unselect if not a suspected or confirmed emergency medical condition->Emergency Medical Condition (MA) FINDINGS: Lower Chest: Three-vessel coronary artery calcification. Organs: Cirrhotic liver morphology. Cholelithiasis. No biliary ductal diltation. Pancreas is unremarkable. Adrenals are unremarkable. Mild splenomegaly. No renal calculi or hydronephrosis. Moderate calcific atherosclerosis. GI/Bowel: Bowel is non-dilated without wall thickening. Appendix is normal. Pelvis: Unremarkable. Peritoneum/Retroperitoneum:No free fluid, free air, organized fluid collection or lymphadenopathy. Bones: Multilevel degenerative disc disease. Nonspecific skin thickening of the anterior abdominal wall. 1. No acute process in the abdomen or pelvis. 2. Cirrhotic liver morphology with mild splenomegaly.Consider nonemergent liver protocol MRI for HCC screening. 3. Cholelithiasis. XR CHEST (SINGLE VIEW FRONTAL) Result Date: 02/07/2021 EXAMINATION: ONE XRAY VIEW OF THE CHEST 02/07/2021 5:08 pm COMPARISON: 11/23/2019, 02/01/2020 HISTORY: ORDERING SYSTEM PROVIDED HISTORY: ms change and fever TECHNOLOGIST PROVIDED HISTORY: ms change and fever FINDINGS: Hypoventilated lungs with similar linear scarring at the left lung base. No acute focal airspace process. No pneumothorax or pleural effusion. Cardiomediastinal contours are within normal limits and unchanged. Unchanged truncation of the right distal clavicle. Remote posttraumatic irregularity of the proximal right humerus. Cervical fusion hardware present. No acute bony findings. Hypoventilated lungs with left basilar scarring. No acute focal airspace process. CT Head WO Contrast Result Date: 02/07/2021 EXAMINATION: CT OF THE HEAD WITHOUT CONTRAST 02/07/2021 7:09 pm TECHNIQUE: CT of the head was performed without the administration of intravenous contrast. Dose modulation, iterative reconstruction, and/or weight based adjustment of the mA/kV was utilized to reduce the radiation dose to as low as reasonably achievable. COMPARISON: CT study from April 28, 2020. HISTORY: ORDERING SYSTEM PROVIDEDHISTORY: fall with ms change TECHNOLOGIST PROVIDED HISTORY: fall with ms change Decision Support Exception - unselect if not a suspected or confirmed emergency medical condition->Emergency MedicalCondition (MA) FINDINGS: BRAIN/VENTRICLES: The gyri and sulci have a normal appearance. There is mod erate cortical and cerebellar volume loss with associated ex vacuo ventricular dilation. Moderate diffuse periventricular and subcortical deep white matter hypoattenuation noted, findings compatible with chronic small vessel ischemic disease. The mckoy-white matter differentiation is otherwise preserved throughout. There is no acute hemorrhage, mass, or mass effect. No evidence of acute territorial infarct. No abnormal extraaxial fluid collections. ORBITS: The visualized portion of the orbits demonstrate no acute abnormality. SINUSES: The mastoid air cells are normally aerated. The visualized paranasal sinuses are grossly clear. SOFT TISSUES/SKULL: No significant abnormality of the visualized skull or soft tissues. No acute fracture. No scalp hematoma. No evidence of acute intracranial process. Moderate atrophy and chronic small vessel ischemic changes noted. CT CERVICAL SPINE WO CONTRAST Result Date: 02/07/2021 EXAMINATION: CT OF THE CERVICAL SPINE WITHOUT CONTRAST 02/07/2021 7:09 pm TECHNIQUE: CT of the cervical spine was performed without the administration of intravenous contrast. Multiplanar reformatted images are provided for review. Dose modulation, iterative reconstruction, and/or weight based adjustment of the mA/kV was utilized to reduce the radiation dose to as low as reasonably achievable. COMPARISON: CT study from April 28, 2020. HISTORY: ORDERING SYSTEM PROVIDED HISTORY: fall and pain TECHNOLOGIST PROVIDED HISTORY: fall and pain Decision Support Exception - unselect if not a suspected or confirmed emergency medical condition->Emergency Medical Condition (MA) FINDINGS: BONES/ALIGNMENT: Bone mineralization is normal. The vertebral bodies and posterior elements appear intact and appropriately aligned without acute fracture or subluxation. Vertebral body stature is maintained throughout as is the normal cervical lordosis. DEGENERATIVE CHANGES: There are again seen post-surgical changes of discectomy and anterior spinal fusion involving the C5- C7 levels, remaining in stable alignment without evidence of hardware complication. No significant bony neural foraminal narrowing. SOFT TISSUES: No paraspinal soft tissue abnormality. The visualized lung apices are grossly clear. Post-surgical changes of the cervical spine. No acute fracture or subluxation. No significant change from the prior study. Assessment and Plan: Patient Active Problem List Diagnosis Date Noted Complicated urinary tract infection 02/08/2021 Altered mental status 02/08/2021 Toxic metabolic encephalopathy 02/08/2021 Dyslipidemia 12/13/2020 Gastroesophageal reflux disease 12/13/2020 Closed 2-part displaced fracture of surgical neck of right humerus 04/28/2020 Head injury 04/28/2020 Closed fracture of nasal bones 04/28/2020 Morbidly obese ([facility]) 04/17/2020 Positive FIT (fecal immunochemical test) 02/04/2020 Frequency of urination 12/13/2019 Mixed incontinence 12/13/2019 Nocturia 12/13/2019 Fall at home, initial encounter 11/24/2019 Closed fracture of spinous process of cervical vertebra ([facility]) 11/24/2019 Malabsorption 09/22/2019 Iron deficiency anemia 07/25/2019 History of diabetic gastroparesis 07/13/2019 Obesity (BMI 30-39.9) 07/13/2019 Chronic back pain 06/03/2019 Stage 3 chronic kidney disease ([facility]) 06/03/2019 Essential hypertension 06/03/2019 Bipolar disorder with depression ([facility]) 06/03/2019 Diabetes mellitus ([facility]) 06/03/2019 Type 2 diabetes mellitus, with long-term current use of insulin ([facility]) 06/03/2019 Discharge Medications: Angella Olson Home Medication Instructions MARISOL:[id number] Printed on:02/11/21 1003 Medication Information atenolol (TENORMIN) 25 MG tablet Take 1 tablet by mouth daily atorvastatin (LIPITOR) 80 MG tablet Take 1 tablet by mouth nightly baclofen (LIORESAL) 10 MG tablet One tablet in the morning one tablet in the afternoon and 2 tablets at bedtime cephALEXin (KEFLEX) 500 MG capsule Take 1 capsule by mouth 3 times daily for 7 days divalproex (DEPAKOTE ER) 250 MG extended release tablet Take 3 tablets by mouth nightly ferrous sulfate (IRON 325) 325 (65 Fe) MG tablet Take 1 tablet by mouth every 48 hours Every other day fexofenadine (KADE) 180 MG tablet Take 1 tablet by mouth daily FLUoxetine (PROZAC) 10 MG capsule TAKE 3 CAPSULES DAILY fluticasone (FLONASE) 50 MCG/ACT nasal spray 2 sprays by Each Nostril route daily gabapentin (NEURONTIN) 100 MG capsule 100 mg in the morning and afternoon. 300 mg at bedtime. insulin detemir (LEVEMIR FLEXTOUCH) 100 UNIT/ML injection pen Inject 20 Units into the skin 2 times daily lisinopril (PRINIVIL;ZESTRIL) 5 MG tablet Take 1 tablet by mouth daily metFORMIN (GLUCOPHAGE) 1000 MG tablet Take 1 tablet by mouth 2 times daily (with meals) Multiple Vitamins-Minerals (CENTRUM SILVER 50+WOMEN) TABS Take 1 tablet by mouth daily NONFORMULARY Pt states to be using CBD Oil up to BID. *(Unsure of exact dose). Typically it's 5 gtts under the tongue. NONFORMULARY Pt states to be using CBD cream topically PRN. NONFORMULARY 500 mg Pt states to be taking Hyaluronic Acid as 1 capsule in the AM. NONFORMULARY Pt states to take Calcium/Magnesium and Zinc as 1 tablet daily. NONFORMULARY MSM tablet (methylsulfonylmethane) 1 gram daily in morning NYSTATIN [id number] UNIT/GM powder Cataumet-3 Fatty Acids (FISH OIL) 1000 MG CAPS Take 1,000 mg by mouth 3 times daily omeprazole (PRILOSEC) 20 MG delayed release capsule Take 1 capsule by mouth daily oxybutynin (DITROPAN XL) 10 MG extended release tablet Take 1 tablet by mouth daily polyethylene glycol (GLYCOLAX) 17 g packet Take 17 g by mouth daily as needed for Constipation prednisoLONE acetate (PRED FORTE) 1 % ophthalmic suspension Place 1 drop into both eyes Pt states she's to take this up to 4 times daily. RESTASIS 0.05 % ophthalmic emulsion Place 1 drop into both eyes every 12 hours traMADol (ULTRAM) 50 MG tablet TAKE 1 TABLET BY MOUTH FOUR TIMES A DAY NEEDED FOR PAIN traZODone (DESYREL) 50 MG tablet vitamin D (CHOLECALCIFEROL) 1000 units TABS tablet Take 1,000 Units by mouth 2 times daily Patient Instructions: Activity: activity as tolerated Diet: encourage fluids Wound Care: none needed Other: None Disposition: Discharge to Home Follow up: Patient will be followed by CELIA Mahan CNP in 1-2 weeks CORE MEASURES on Discharge (if applicable) ADRIENNE/ARB in CHF: NA Statin in ME: NA ASA in ME: NA Statin in CVA: NA Antiplatelet in CVA: NA Total time spent on discharge services: 40 minutes Including the following activities: Evaluation and Management of patient Discussion with patient and/or surrogate about current care plan Coordination with Case Management and/or Legal Recovery Specialist Coordination of care with Consultants (if applicable) Coordination of care with Receiving Facility Physician (if applicable) Completion of DME forms (if applicable) Preparation of Discharge Summary Preparation of Medication Reconciliation Preparation of Discharge Prescriptions Signed: CELIA Lima CNP, CELIA CHIEF TALENT OFFICERJackyC 02/11/2021, 10:03 AM Associated attestation - Sophie Solomon MD - 02/11/2021 10:56 AM EDT I personally evaluated and examined the patient face to face in conjunction with the APC and agree with the management and disposition of the patient. My king findings are: Patient ID: Angella Olson [id number] Admission date: 02/07/2021 Discharge date: 02/11/2021 Admitting Physician: Sophie Solomon MD Primary Care Physician: CELIA Mahan CNP Primary Discharge Diagnoses: Patient Active Problem List Diagnosis Date Noted Complicated urinary tract infection 02/08/2021 Altered mental status 02/08/2021 Toxic metabolic encephalopathy 02/08/2021 Dyslipidemia 12/13/2020 Gastroesophageal reflux disease 12/13/2020 Closed 2-part displaced fracture of surgical neck of right humerus 04/28/2020 Head injury 04/28/2020 Closed fracture of nasal bones 04/28/2020 Morbidly obese ([facility]) 04/17/2020 Positive FIT (fecal immunochemical test) 02/04/2020 Frequency of urination 12/13/2019 Mixed incontinence 12/13/2019 Nocturia 12/13/2019 Fall at home, initial encounter 11/24/2019 Closed fracture of spinous process of cervical vertebra ([facility]) 11/24/2019 Malabsorption 09/22/2019 Iron deficiency anemia 07/25/2019 History of diabetic gastroparesis 07/13/2019 Obesity (BMI 30-39.9) 07/13/2019 Chronic back pain 06/03/2019 Stage 3 chronic kidney disease ([facility]) 06/03/2019 Essential hypertension 06/03/2019 Bipolar disorder with depression ([facility]) 06/03/2019 Diabetes mellitus ([facility]) 06/03/2019 Type 2 diabetes mellitus, with long-term current use of insulin ([facility]) 06/03/2019 Additional Diagnoses: Diagnosis Date Anxiety Arthritis Bipolar disorder ([facility]) Depression Fibromyalgia Hypertension Liver disease Fatty liver Non-alcoholic fatty liver disease Obesity 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, left Type 2 diabetes mellitus without complication ([facility]) Review of Systems: Constitutional: negative for fevers or chills Eyes: negative for visual disturbance ENT: negative for sore throat or nasal congestion Respiratory: negative for shortness of breath or cough Cardiovascular: negative for chest pain ,palpitations,pnd,syncope Gastrointestinal: negative for abd pain, nausea, vomiting, diarrhea , constipation,hemetemesis,ryan,blood in stool Genitourinary: negative for dysuria, urgency ,frequency,hematuria Integument/breast: negative for skin rash or lesions Neurological: negative for unilateral weakness, numbness or tingling. Skeletal Muscular: no joint pain,jont swelling,back pain Physical exam: Exam: GEN: A & O x3, no apparent distress EYES: No gross abnormalities. NECK: normal, supple, no lymphadenopathy, no carotid bruits PULM: clear to auscultation bilaterally- no wheezes, rales or rhonchi, normal air movement, no respiratory distress COR: regular rate & rhythm and no gallops ABD: soft, non-tender, non-distended, normal bowel sounds, no masses or organomegaly EXT: no cyanosis, clubbing or edema present NEURO: negative SKIN: no rashes or significant lesions Hospital Course: The patient was admitted for the above. Angella Olson is a 65 y.o. female admitted with mental status. She presented for evaluation of sudden onset of confusion. She was noticedto have a new onset of confusion and was brought by EMS to the hospital. On arrival she continued to be disoriented and confused. Patient had no focal deficits but urine was showing significant signsof infection and she was admitted for IV antibiotics and fluids. Patient's mentation has improved she is back to baseline. She is afebrile and tolerating diet and activity well. Her cultures for blood are negative. Her urine culture was positive for E. coli. she is able to ambulate with ealker.Patient will be discharged home on Keflex. Although patient has allergy to penicillins patient stated that she is taking Keflex in the past and tolerated that well. Consultants: none Procedures: none Complications: none Significant Diagnostic Studies: CT ABDOMEN PELVIS WO CONTRAST Additional Contrast? None Result Date: 02/07/2021 EXAMINATION: CT OF THE ABDOMEN AND PELVIS WITHOUT CONTRAST 02/07/2021 8:10 pm TECHNIQUE: CT of the abdomen and pelvis was performed without the administration of intravenous contrast. Multiplanar reformatted images are provided for review. Dose modulation, iterative reconstruction, and/or weight based adjustment of the mA/kV was utilized to reduce the radiation dose to as low as reasonably achievable. COMPARISON: None. HISTORY: ORDERING SYSTEM PROVIDED HISTORY: patient with falls and pain to pelvis TECHNOLOGIST PROVIDED HISTORY: patient with falls and pain to pelvis Decision Support Exception - unselect if not a suspected or confirmed emergency medical condition->Emergency Medical Condition (MA) FINDINGS: Lower Chest: Three-vessel coronary artery calcification. Organs: Cirrhotic liver morphology. Cholelithiasis. No biliary ductal diltation. Pancreas is unremarkable. Adrenals are unremarkable. Mild splenomegaly. No renal calculi or hydronephrosis. Moderate calcific atherosclerosis. GI/Bowel: Bowel is non-dilated without wall thickening. Appendix is normal. Pelvis: Unremarkable. Peritoneum/Retroperitoneum:No free fluid, free air, organized fluid collection or lymphadenopathy. Bones: Multilevel degenerative disc disease. Nonspecific skin thickening of the anterior abdominal wall. 1. No acute process in the abdomen or pelvis. 2. Cirrhotic liver morphology with mild splenomegaly.Consider nonemergent liver protocol MRI for HCC screening. 3. Cholelithiasis. XR CHEST (SINGLE VIEW FRONTAL) Result Date: 02/07/2021 EXAMINATION: ONE XRAY VIEW OF THE CHEST 02/07/2021 5:08 pm COMPARISON: 11/23/2019, 02/01/2020 HISTORY: ORDERING SYSTEM PROVIDED HISTORY: ms change and fever TECHNOLOGIST PROVIDED HISTORY: ms change and fever FINDINGS: Hypoventilated lungs with similar linear scarring at the left lung base. No acute focal airspace process. No pneumothorax or pleural effusion. Cardiomediastinal contours are within normal limits and unchanged. Unchanged truncation of the right distal clavicle. Remote posttraumatic irregularity of the proximal right humerus. Cervical fusion hardware present. No acute bony findings. Hypoventilated lungs with left basilar scarring. No acute focal airspace process. CT Head WO Contrast Result Date: 02/07/2021 EXAMINATION: CT OF THE HEAD WITHOUT CONTRAST 02/07/2021 7:09 pm TECHNIQUE: CT of the head was performed without the administration of intravenous contrast. Dose modulation, iterative reconstruction, and/or weight based adjustment of the mA/kV was utilized to reduce the radiation dose to as low as reasonably achievable. COMPARISON: CT study from April 28, 2020. HISTORY: ORDERING SYSTEM PROVIDEDHISTORY: fall with ms change TECHNOLOGIST PROVIDED HISTORY: fall with ms change Decision Support Exception - unselect if not a suspected or confirmed emergency medical condition->Emergency MedicalCondition (MA) FINDINGS: BRAIN/VENTRICLES: The gyri and sulci have a normal appearance. There is mod erate cortical and cerebellar volume loss with associated ex vacuo ventricular dilation. Moderate diffuse periventricular and subcortical deep white matter hypoattenuation noted, findings compatible with chronic small vessel ischemic disease. The mckoy-white matter differentiation is otherwise preserved throughout. There is no acute hemorrhage, mass, or mass effect. No evidence of acute territorial infarct. No abnormal extraaxial fluid collections. ORBITS: The visualized portion of the orbits demonstrate no acute abnormality. SINUSES: The mastoid air cells are normally aerated. The visualized paranasal sinuses are grossly clear. SOFT TISSUES/SKULL: No significant abnormality of the visualized skull or soft tissues. No acute fracture. No scalp hematoma. No evidence of acute intracranial process. Moderate atrophy and chronic small vessel ischemic changes noted. CT CERVICAL SPINE WO CONTRAST Result Date: 02/07/2021 EXAMINATION: CT OF THE CERVICAL SPINE WITHOUT CONTRAST 02/07/2021 7:09 pm TECHNIQUE: CT of the cervical spine was performed without the administration of intravenous contrast. Multiplanar reformatted images are provided for review. Dose modulation, iterative reconstruction, and/or weight based adjustment of the mA/kV was utilized to reduce the radiation dose to as low as reasonably achievable. COMPARISON: CT study from April 28, 2020. HISTORY: ORDERING SYSTEM PROVIDED HISTORY: fall and pain TECHNOLOGIST PROVIDED HISTORY: fall and pain Decision Support Exception - unselect if not a suspected or confirmed emergency medical condition->Emergency Medical Condition (MA) FINDINGS: BONES/ALIGNMENT: Bone mineralization is normal. The vertebral bodies and posterior elements appear intact and appropriately aligned without acute fracture or subluxation. Vertebral body stature is maintained throughout as is the normal cervical lordosis. DEGENERATIVE CHANGES: There are again seen post-surgical changes of discectomy and anterior spinal fusion involving the C5- C7 levels, remaining in stable alignment without evidence of hardware complication. No significant bony neural foraminal narrowing. SOFT TISSUES: No paraspinal soft tissue abnormality. The visualized lung apices are grossly clear. Post-surgical changes of the cervical spine. No acute fracture or subluxation. No significant change from the prior study. Recent Results (from the past 96 hour(s)) CBC auto differential Collection Time: 02/07/21 6:41 PM Result Value Ref Range WBC 6.8 3.5 - 11.3 k/uL RBC 4.03 3.95 - 5.11 m/uL Hemoglobin 11.2 (L) 11.9 - 15.1 g/dL Hematocrit 35.6 (L) 36.3 - 47.1 % MCV 88.3 82.6 - 102.9 fL MCH 27.8 25.2 - 33.5 pg MCHC 31.5 28.4 - 34.8 g/dL RDW 15.3 (H) 11.8 - 14.4 % Platelets 110 (L) 138 - 453 k/uL MPV 10.4 8.1 - 13.5 fL NRBC Automated 0.0 0.0 per 100 WBC Differential Type NOT REPORTED Seg Neutrophils 80 (H) 36 - 65 % Lymphocytes 12 (L) 24 - 43 % Monocytes 8 3 - 12 % Eosinophils % 0 (L) 1 - 4 % Basophils 0 0 - 2 % Immature Granulocytes 0 0 % Segs Absolute 5.45 1.50 - 8.10 k/uL Absolute Lymph # 0.80 (L) 1.10 - 3.70 k/uL Absolute Sullivan # 0.51 0.10 - 1.20 k/uL Absolute Eos # <0.03 0.00 - 0.44 k/uL Basophils Absolute <0.03 0.00 - 0.20 k/uL Absolute Immature Granulocyte <0.03 0.00 - 0.30 k/uL WBC Morphology NOT REPORTED RBC Morphology NOT REPORTED Platelet Estimate NOT REPORTED Comprehensive Metabolic Panel Collection Time: 02/07/21 6:41 PM Result Value Ref Range Glucose 289 (H) 70 - 99 mg/dL BUN 15 8 - 23 mg/dL CREATININE 1.08 (H) 0.50 - 0.90 mg/dL Bun/Cre Ratio 14 9 - 20 Calcium 9.3 8.6 - 10.4 mg/dL Sodium 136 135 - 144 mmol/L Potassium 4.5 3.7 - 5.3 mmol/L Chloride 100 98 - 107 mmol/L CO2 25 20 - 31 mmol/L Anion Gap 11 9 - 17 mmol/L Alkaline Phosphatase 114 (H) 35 - 104 U/L ALT 24 5 - 33 U/L AST 27 <32 U/L Total Bilirubin 0.63 0.3 - 1.2 mg/dL Total Protein 7.6 6.4 - 8.3 g/dL Albumin 3.8 3.5 - 5.2 g/dL Albumin/Globulin Ratio 1.0 1.0 - 2.5 GFR Non- 51 (L) >60 mL/min GFR >60 >60 mL/min GFR Comment GFR Staging Protime-INR Collection Time: 02/07/21 6:41 PM Result Value Ref Range Protime 14.4 (H) 11.5 - 14.2 sec INR 1.1 Lactic Acid, Plasma Collection Time: 02/07/21 8:35 PM Result Value Ref Range Lactic Acid 1.1 0.5 - 2.2 mmol/L Lactic Acid, Whole Blood NOT REPORTED 0.7 - 2.1 mmol/L Urinalysis Reflex to Culture Collection Time: 02/07/21 9:06 PM Specimen: Urine, clean catch Result Value Ref Range Color, UA YELLOW YELLOW Turbidity UA SLIGHTLY CLOUDY (A) CLEAR Glucose, Ur NEGATIVE NEGATIVE Bilirubin Urine NEGATIVE NEGATIVE Ketones, Urine NEGATIVE NEGATIVE Specific Clay, UA 1.015 1.010 - 1.020 Urine Hgb 2+ (A) NEGATIVE pH, UA 6.0 5.0 - 9.0 Protein, UA 1+ (A) NEGATIVE Urobilinogen, Urine Normal Normal Nitrite, Urine POSITIVE (A) NEGATIVE Leukocyte Esterase, Urine SMALL (A) NEGATIVE Urinalysis Comments NOT REPORTED Microscopic Urinalysis Collection Time: 02/07/21 9:06 PM Result Value Ref Range - WBC, UA 10 TO 20 0 - 5 /HPF RBC, UA 2 TO 5 0 - 2 /HPF Casts UA NOT REPORTED /LPF Crystals, UA NOT REPORTED None /HPF Epithelial Cells UA 0 TO 2 0 - 25 /HPF Renal Epithelial, UA NOT REPORTED 0 /HPF Bacteria, UA 3+ (A) None Mucus, UA NOT REPORTED None Trichomonas, UA NOT REPORTED None Amorphous, UA NOT REPORTED None Other Observations UA NOT REPORTED NOT REQ. Yeast, UA NOT REPORTED None Culture, Urine Collection Time: 02/07/21 9:06 PM Specimen: Urine, straight catheter Result Value Ref Range Specimen Description .URINE,STRAIGHT CATHETER Special Requests NOT REPORTED Culture ESCHERICHIA COLI >[id number] CFU/ML (A) Susceptibility Escherichia coli - BACTERIAL SUSCEPTIBILITY PANEL ALEX amikacin Value in next row NOT REPORTED ampicillin Value in next row Sensitive <=2SUSCEPTIBLE ampicillin-sulbactam Value in next row NOT REPORTED aztreonam Value in next row Sensitive <=1SUSCEPTIBLE ceFAZolin Value in next row Sensitive <=4SUSCEPTIBLE ceFAZolin Value in next row Sensitive <=4SUSCEPTIBLE cefepime Value in next row NOT REPORTED cefTRIAXone Value in next row Sensitive <=1SUSCEPTIBLE ciprofloxacin Value in next row Sensitive <=0.25SUSCEPTIBLE ertapenem Value in next row NOT REPORTED Confirmatory Extended Spectrum Beta-Lactamase Value in next row Negative NOT REPORTED gentamicin Value in next row Sensitive <=1SUSCEPTIBLE meropenem Value in next row NOT REPORTED nitrofurantoin Value in next row Sensitive <=16SUSCEPTIBLE tigecycline Value in next row NOT REPORTED tobramycin Value in next row Sensitive <=1SUSCEPTIBLE trimethoprim-sulfamethoxazole Value in next row Resistant >=320RESISTANT piperacillin-tazobactam Value in next row Sensitive <=4SUSCEPTIBLE Ammonia Collection Time: 02/07/21 9:13 PM Result Value Ref Range Ammonia 32 11 - 41 umol/L Culture, Blood 1 Collection Time: 02/07/21 10:15 PM Specimen: Blood Result Value Ref Range Specimen Description .BLOOD Special Requests 20ML RFA Culture NO GROWTH 4 DAYS Culture, Blood 1 Collection Time: 02/07/21 10:20 PM Specimen: Blood Result Value Ref Range Specimen Description .BLOOD Special Requests 8ML RAC Culture NO GROWTH 4 DAYS COVID-19, Rapid Collection Time: 02/07/21 10:35 PM Specimen: Nasopharyngeal Swab Result Value Ref Range Specimen Description .NASOPHARYNGEAL SWAB SARS-CoV-2, Rapid Not Detected Not Detected Glucose, Whole Blood Collection Time: 02/08/21 1:57 AM Result Value Ref Range POC Glucose 165 (H) 74 - 100 mg/dL CBC auto differential Collection Time: 02/08/21 5:45 AM Result Value Ref Range WBC 4.7 3.5 - 11.3 k/uL RBC 3.97 3.95 - 5.11 m/uL Hemoglobin 10.8 (L) 11.9 - 15.1 g/dL Hematocrit 35.7 (L) 36.3 - 47.1 % MCV 89.9 82.6 - 102.9 fL MCH 27.2 25.2 - 33.5 pg MCHC 30.3 28.4 - 34.8 g/dL RDW 15.1 (H) 11.8 - 14.4 % Platelets See Reflexed IPF Result 138 - 453 k/uL MPV NOT REPORTED 8.1 - 13.5 fL NRBC Automated 0.0 0.0 per 100 WBC Differential Type NOT REPORTED WBC Morphology NOT REPORTED RBC Morphology NOT REPORTED Platelet Estimate NOT REPORTED Seg Neutrophils 71 (H) 36 - 65 % Lymphocytes 21 (L) 24 - 43 % Monocytes 8 3 - 12 % Eosinophils % 0 (L) 1 - 4 % Basophils 0 0 - 2 % Immature Granulocytes 0 0 % Segs Absolute 3.28 1.50 - 8.10 k/uL Absolute Lymph # 0.96 (L) 1.10 - 3.70 k/uL Absolute Sullivan # 0.37 0.10 - 1.20 k/uL Absolute Eos # <0.03 0.00 - 0.44 k/uL Basophils Absolute <0.03 0.00 - 0.20 k/uL Absolute Immature Granulocyte <0.03 0.00 - 0.30 k/uL Immature Platelet Fraction Collection Time: 02/08/21 5:45 AM Result Value Ref Range Platelet, Immature Fraction 2.9 1.1 - 10.3 % Platelet, Fluorescence 100 (L) 138 - 453 k/uL Hemoglobin A1c Collection Time: 02/08/21 6:15 AM Result Value Ref Range Hemoglobin A1C 7.4 (H) 4.0 - 6.0 % Estimated Avg Glucose 166 mg/dL Glucose, Whole Blood Collection Time: 02/08/21 6:56 AM Result Value Ref Range POC Glucose 164 (H) 74 - 100 mg/dL Valproic acid level, total Collection Time: 02/08/21 9:45 AM Result Value Ref Range Valproic Acid Lvl 13 (L) 50 - 125 ug/mL Valproic Dose amount NOT REPORTED Valproic Date last dose NOT REPORTED Valproic Time last dose NOT REPORTED Glucose, Whole Blood Collection Time: 02/08/21 11:16 AM Result Value Ref Range POC Glucose 225 (H) 74 - 100 mg/dL Glucose, Whole Blood Collection Time: 02/08/21 4:43 PM Result Value Ref Range POC Glucose 163 (H) 74 - 100 mg/dL Glucose, Whole Blood Collection Time: 02/08/21 7:58 PM Result Value Ref Range POC Glucose 189 (H) 74 - 100 mg/dL Glucose, Whole Blood Collection Time: 02/09/21 6:22 AM Result Value Ref Range POC Glucose 105 (H) 74 - 100 mg/dL CBC auto differential Collection Time: 02/09/21 6:30 AM Result Value Ref Range WBC 3.1 (L) 3.5 - 11.3 k/uL RBC 3.69 (L) 3.95 - 5.11 m/uL Hemoglobin 10.2 (L) 11.9 - 15.1 g/dL Hematocrit 33.4 (L) 36.3 - 47.1 % MCV 90.5 82.6 - 102.9 fL MCH 27.6 25.2 - 33.5 pg MCHC 30.5 28.4 - 34.8 g/dL RDW 15.0 (H) 11.8 - 14.4 % Platelets See Reflexed IPF Result 138 - 453 k/uL MPV NOT REPORTED 8.1 - 13.5 fL NRBC Automated 0.0 0.0 per 100 WBC Differential Type NOT REPORTED WBC Morphology NOT REPORTED RBC Morphology NOT REPORTED Platelet Estimate NOT REPORTED Seg Neutrophils 55 36 - 65 % Lymphocytes 34 24 - 43 % Monocytes 9 3 - 12 % Eosinophils % 1 1 - 4 % Immature Granulocytes 1 (H) 0 % Basophils 0 0 - 2 % Segs Absolute 1.71 1.50 - 8.10 k/uL Absolute Lymph # 1.05 (L) 1.10 - 3.70 k/uL Absolute Sullivan # 0.28 0.10 - 1.20 k/uL Absolute Eos # 0.03 0.00 - 0.44 k/uL Absolute Immature Granulocyte 0.03 0.00 - 0.30 k/uL Basophils Absolute 0.00 0.0 - 0.2 k/uL Morphology MACROCYTOSIS PRESENT Morphology Large platelets noted Morphology Platelet scan shows Decreased Platelets Immature Platelet Fraction Collection Time: 02/09/21 6:30 AM Result Value Ref Range Platelet, Immature Fraction 3.2 1.1 - 10.3 % Platelet, Fluorescence 102 (L) 138 - 453 k/uL Glucose, Whole Blood Collection Time: 02/09/21 11:06 AM Result Value Ref Range POC Glucose 156 (H) 74 - 100 mg/dL Glucose, Whole Blood Collection Time: 02/09/21 4:00 PM Result Value Ref Range POC Glucose 187 (H) 74 - 100 mg/dL Glucose, Whole Blood Collection Time: 02/09/21 7:52 PM Result Value Ref Range POC Glucose 177 (H) 74 - 100 mg/dL CBC auto differential Collection Time: 02/10/21 6:35 AM Result Value Ref Range WBC 2.4 (L) 3.5 - 11.3 k/uL RBC 3.41 (L) 3.95 - 5.11 m/uL Hemoglobin 9.4 (L) 11.9 - 15.1 g/dL Hematocrit 30.5 (L) 36.3 - 47.1 % MCV 89.4 82.6 - 102.9 fL MCH 27.6 25.2 - 33.5 pg MCHC 30.8 28.4 - 34.8 g/dL RDW 14.9 (H) 11.8 - 14.4 % Platelets See Reflexed IPF Result 138 - 453 k/uL MPV NOT REPORTED 8.1 - 13.5 fL NRBC Automated 0.0 0.0 per 100 WBC Differential Type NOT REPORTED WBC Morphology NOT REPORTED RBC Morphology NOT REPORTED Platelet Estimate NOT REPORTED Seg Neutrophils 49 36 - 65 % Lymphocytes 37 24 - 43 % Monocytes 12 3 - 12 % Eosinophils % 2 1 - 4 % Immature Granulocytes 0 0 % Basophils 0 0 - 2 % Segs Absolute 1.17 (L) 1.50 - 8.10 k/uL Absolute Lymph # 0.89 (L) 1.10 - 3.70 k/uL Absolute Sullivan # 0.29 0.10 - 1.20 k/uL Absolute Eos # 0.05 0.00 - 0.44 k/uL Absolute Immature Granulocyte 0.00 0.00 - 0.30 k/uL Basophils Absolute 0.00 0.0 - 0.2 k/uL Morphology Normal Immature Platelet Fraction Collection Time: 02/10/21 6:35 AM Result Value Ref Range Platelet, Immature Fraction 2.4 1.1 - 10.3 % Platelet, Fluorescence 110 (L) 138 - 453 k/uL Glucose, Whole Blood Collection Time: 02/10/21 7:22 AM Result Value Ref Range POC Glucose 147 (H) 74 - 100 mg/dL Glucose, Whole Blood Collection Time: 02/10/21 11:11 AM Result Value Ref Range POC Glucose 116 (H) 74 - 100 mg/dL Glucose, Whole Blood Collection Time: 02/10/21 4:07 PM Result Value Ref Range POC Glucose 186 (H) 74 - 100 mg/dL Glucose, Whole Blood Collection Time: 02/10/21 9:09 PM Result Value Ref Range POC Glucose 135 (H) 74 - 100 mg/dL CBC auto differential Collection Time: 02/11/21 6:05 AM Result Value Ref Range WBC 2.9 (L) 3.5 - 11.3 k/uL RBC 3.66 (L) 3.95 - 5.11 m/uL Hemoglobin 10.0 (L) 11.9 - 15.1 g/dL Hematocrit 32.3 (L) 36.3 - 47.1 % MCV 88.3 82.6 - 102.9 fL MCH 27.3 25.2 - 33.5 pg MCHC 31.0 28.4 - 34.8 g/dL RDW 14.9 (H) 11.8 - 14.4 % Platelets 113 (L) 138 - 453 k/uL MPV 9.7 8.1 - 13.5 fL NRBC Automated 0.0 0.0 per 100 WBC Differential Type NOT REPORTED WBC Morphology NOT REPORTED RBC Morphology NOT REPORTED Platelet Estimate NOT REPORTED Seg Neutrophils 44 36 - 65 % Lymphocytes 43 24 - 43 % Monocytes 11 3 - 12 % Eosinophils % 2 1 - 4 % Basophils 1 0 - 2 % Immature Granulocytes 0 0 % Segs Absolute 1.25 (L) 1.50 - 8.10 k/uL Absolute Lymph # 1.22 1.10 - 3.70 k/uL Absolute Sullivan # 0.31 0.10 - 1.20 k/uL Absolute Eos # 0.05 0.00 - 0.44 k/uL Basophils Absolute <0.03 0.00 - 0.20 k/uL Absolute Immature Granulocyte <0.03 0.00 - 0.30 k/uL Glucose, Whole Blood Collection Time: 02/11/21 7:13 AM Result Value Ref Range POC Glucose 88 74 - 100 mg/dL Discharge Condition: stable Disposition: home Discharge Medications: Angella Olson Home Medication Instructions MARISOL:[id number] Printed on:02/11/21 2470 Medication Information atenolol (TENORMIN) 25 MG tablet Take 1 tablet by mouth daily atorvastatin (LIPITOR) 80 MG tablet Take 1 tablet by mouth nightly baclofen (LIORESAL) 10 MG tablet One tablet in the morning one tablet in the afternoon and 2 tablets at bedtime cephALEXin (KEFLEX) 500 MG capsule Take 1 capsule by mouth 3 times daily for 7 days divalproex (DEPAKOTE ER) 250 MG extended release tablet Take 3 tablets by mouth nightly ferrous sulfate (IRON 325) 325 (65 Fe) MG tablet Take 1 tablet by mouth every 48 hours Every other day fexofenadine (KADE) 180 MG tablet Take 1 tablet by mouth daily FLUoxetine (PROZAC) 10 MG capsule TAKE 3 CAPSULES DAILY fluticasone (FLONASE) 50 MCG/ACT nasal spray 2 sprays by Each Nostril route daily gabapentin (NEURONTIN) 100 MG capsule 100 mg in the morning and afternoon. 300 mg at bedtime. insulin detemir (LEVEMIR FLEXTOUCH) 100 UNIT/ML injection pen Inject 20 Units into the skin 2 times daily lisinopril (PRINIVIL;ZESTRIL) 5 MG tablet Take 1 tablet by mouth daily metFORMIN (GLUCOPHAGE) 1000 MG tablet Take 1 tablet by mouth 2 times daily (with meals) Multiple Vitamins-Minerals (CENTRUM SILVER 50+WOMEN) TABS Take 1 tablet by mouth daily NONFORMULARY Pt states to be using CBD Oil up to BID. *(Unsure of exact dose). Typically it's 5 gtts under the tongue. NONFORMULARY Pt states to be using CBD cream topically PRN. NONFORMULARY 500 mg Pt states to be taking Hyaluronic Acid as 1 capsule in the AM. NONFORMULARY Pt states to take Calcium/Magnesium and Zinc as 1 tablet daily. NONFORMULARY MSM tablet (methylsulfonylmethane) 1 gram daily in morning NYSTATIN [id number] UNIT/GM powder Cataumet-3 Fatty Acids (FISH OIL) 1000 MG CAPS Take 1,000 mg by mouth 3 times daily omeprazole (PRILOSEC) 20 MG delayed release capsule Take 1 capsule by mouth daily oxybutynin (DITROPAN XL) 10 MG extended release tablet Take 1 tablet by mouth daily polyethylene glycol (GLYCOLAX) 17 g packet Take 17 g by mouth daily as needed for Constipation prednisoLONE acetate (PRED FORTE) 1 % ophthalmic suspension Place 1 drop into both eyes Pt states she's to take this up to 4 times daily. RESTASIS 0.05 % ophthalmic emulsion Place 1 drop into both eyes every 12 hours traMADol (ULTRAM) 50 MG tablet TAKE 1 TABLET BY MOUTH FOUR TIMES A DAY NEEDED FOR PAIN traZODone (DESYREL) 50 MG tablet vitamin D (CHOLECALCIFEROL) 1000 units TABS tablet Take 1,000 Units by mouth 2 times daily Resume all home medications unless otherwise directed Add keflex Stop taking Patient Instructions: Activity: activity as tolerated Diet: regular diet Wound Care: none needed Other: Follow up with pcp in 1 wk as directed Time Spent on discharge services is 40 minutes in the examination, evaluation, counseling and review of medications and discharge plan. Signed: Sophie Solomon MD, M.D. 02/11/2021 10:54 AM I reviewed and agree with the findings and plan documented in her note . Sophie Solomon MD MD [facility]* Diagnosis Iron deficiency anemia, unspecified iron deficiency anemia type documented in this encounter [employer] Phone: evaluation note* Diagnosis Type 2 diabetes mellitus with other specified complication, with long-term current use of insulin (HCC) documented in this encounter [employer] Phone: evaluation note* Diagnosis Complicated UTI (urinary tract infection) Urinary tract infection, site not specified Altered mental status, unspecified altered mental status type Repeated falls Other symptoms involving nervous and musculoskeletal systems Complicated urinary tract infection Urinary tract infection, site not specified Bipolar disorder with depression (HCC) Bipolar I disorder, most recent episode (or current) depressed, unspecified Essential hypertension Unspecified essential hypertension Diabetes mellitus (HCC) Type II or unspecified type diabetes mellitus without mention of complication, not stated as uncontrolled Stage 3 chronic kidney disease (HCC) Toxic metabolic encephalopathy documented in this encounter [employer] Phone: evaluation note* Diagnosis Personal history of nicotine dependence Personal history of tobacco use, presenting hazards to health documented in this encounter [employer] Phone: evaluation note* Diagnosis Type 2 diabetes mellitus with other specified complication, with long-term current use of insulin (HCC) Essential hypertension Unspecified essential hypertension documented in this encounter [employer] Phone: evaluation note* Diagnosis Acute cystitis with hematuria Acute cystitis documented in this encounter [employer] Phone: evaluation note* Diagnosis Dyspnea on exertion Other dyspnea and respiratory abnormality documented in this encounter [employer] Phone: evaluation note* Diagnosis Cognitive change- Primary Other signs and symptoms involving cognition Chest pain, unspecified type Transient confusion Unspecified psychosis documented in this encounter [employer] Phone: [email or web address] note* Diagnosis Other iron deficiency anemia documented in this encounter [employer] Phone: [email or web address] note* Diagnosis ALAN (obstructive sleep apnea) Obstructive sleep apnea (adult) (pediatric) documented in this encounter [employer] Phone: evaluation note* Diagnosis Contusion of left hip, initial encounter- Primary Contusion of left upper arm, initial encounter Fall, initial encounter documented in this encounter [employer] Phone: evaluation note* Diagnosis Hepatic cirrhosis, unspecified hepatic cirrhosis type, unspecified whether ascites present (HCC) Fatty liver Other chronic nonalcoholic liver disease Type 2 diabetes mellitus without complication, unspecified whether jail insulin use (HCC) Esophageal varices without bleeding, unspecified esophageal varices type (HCC) Immunity status testing Antibody response examination 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) Polycythemia, secondary documented in this encounter [employer] Phone: evaluation note* Diagnosis Other screening mammogram documented in this encounter [employer] Phone: [email or web address] note* Diagnosis ALAN (obstructive sleep apnea) Obstructive sleep apnea (adult) (pediatric) documented in this encounter [employer] Phone: evaluation note* Diagnosis Other cirrhosis of liver (HCC) documented in this encounter [employer] Phone: evaluation note* Diagnosis Other cirrhosis of liver (HCC) documented in this encounter [employer] Phone: evaluation note* Diagnosis UTI (urinary tract infection)- Primary Urinary tract infection, site not specified Hepatic encephalopathy Hyperammonemia (HCC) Disorders of urea cycle metabolism Hypomagnesemia Disorders of magnesium metabolism Acute pyelonephritis Acute pyelonephritis without lesion of renal medullary necrosis Septicemia (HCC) Unspecified septicemia Hepatic encephalopathy Cirrhosis of liver without ascites (HCC) Type 2 diabetes mellitus, with long-term current use of insulin (HCC) Essential hypertension Unspecified essential hypertension SUAD (acute kidney injury) (HCC) prerenal Acute kidney failure, unspecified documented in this encounter [employer] Phone: evaluation note* Diagnosis Acute bilateral back pain, unspecified back location- Primary Closed compression fracture of L3 lumbar vertebra, initial encounter (HCC) documented in this encounter [employer] Phone: [email or web address] note* Diagnosis Closed compression fracture of third lumbar vertebra (HCC)- Primary Closed compression fracture of L3 vertebra, initial encounter (HCC) Fall from standing, initial encounter Bipolar disorder (HCC) Bipolar disorder, unspecified Recurrent major depressive disorder, in partial remission (HCC) Non-alcoholic fatty liver disease Other chronic nonalcoholic liver disease documented in this encounter [employer] Phone: evaluation note* Diagnosis Acute kidney injury superimposed on CKD (HCC)- Primary Acute kidney injury (HCC) Acute kidney failure, unspecified Acute cystitis without hematuria Acute cystitis Dehydration Bipolar disorder with depression (HCC) Bipolar I disorder, most recent episode (or current) depressed, unspecified Cirrhosis of liver without ascites, unspecified hepatic cirrhosis type (HCC) Complicated UTI (urinary tract infection) Urinary tract infection, site not specified Stage 3 chronic kidney disease (HCC) Cirrhosis of liver without ascites (HCC) Essential hypertension Unspecified essential hypertension Moderate malnutrition (HCC) Malnutrition of moderate degree documented in this encounter [employer] Phone: evaluation note* Diagnosis Hypomagnesemia- Primary Disorders of magnesium metabolism documented in this encounter [employer] Phone: [email or web address] note* Diagnosis Urinary tract infection without hematuria, site unspecified Chronic midline low back pain without sciatica documented in this encounter [facility] [employer] Phone: [email or web address] note* Diagnosis UTI (urinary tract infection)- Primary Urinary tract infection, site not specified Fall, initial encounter Acute cystitis without hematuria Acute cystitis Encephalopathy Encephalopathy, unspecified E. coli UTI Urinary tract infection, site not specified Type 2 diabetes mellitus, with long-term current use of insulin (HCC) Stage 3 chronic kidney disease (HCC) Non-alcoholic fatty liver disease Other chronic nonalcoholic liver disease Hepatic encephalopathy (HCC) Hepatic encephalopathy Essential hypertension Unspecified essential hypertension COPD (chronic obstructive pulmonary disease) (HCC) Chronic airway obstruction, not elsewhere classified Gastroesophageal reflux disease Esophageal reflux Cervical spondylosis Cervical spondylosis without myelopathy Fall Unspecified fall Allergy to multiple antibiotics Other drug allergy Chronic congestive splenomegaly H/O anaphylactic shock Personal history of anaphylaxis Biliary cirrhosis (HCC) Biliary cirrhosis E. coli UTI Urinary tract infection, site not specified documented in this encounter [facility] [employer] Phone: [email or web address] note* Diagnosis Back strain, initial encounter- Primary Rib pain Chest pain, unspecified documented in this encounter [facility] [employer] [facility] Discharge instructions* Attachments The following attachments cannot be sent through Care Everywhere. * Nosebleeds (Moroccan) * Abscess: Skin (Moroccan) * Fall Prevention (Moroccan) * Contusion (Moroccan) [facility]: reason for visit Narrative* Auth/Cert Specialty Diagnoses / Procedures Referred By Contac t Referred To Contact Diagnoses Lumbar spondylosis LUMBAR SPONDYLOSIS Procedures LA INJ DX/THER AGNT PARAVERT FACET JOINT, LUMBAR/SAC, 1ST LEVEL LA INJ DX/THER AGNT PARAVERT FACET JOINT, LUMBAR/SAC, 2ND LEVEL CHG FLUOR NEEDLE/CATH SPINE/PARASPINAL DX/THER ADDON LUMBAR FACET - L4-5 L5-SI Darell Watts MD [address] [place] [address] [id number] [place] [id number] Referral ID Status Reason Start Date Expiration Date Visits Re quested Visits Authorized 1 1 [employer] Phone: reason for visit Narrative* Auth/Cert Specialty Diagnoses / Procedures Referred By Contac t Referred To Contact Diagnoses Lumbar spondylosis LUMBAR SPONDYLOSIS Procedures LA INJ DX/THER AGNT PARAVERT FACET JOINT, LUMBAR/SAC, 1ST LEVEL LA INJ DX/THER AGNT PARAVERT FACET JOINT, LUMBAR/SAC, 2ND LEVEL CHG FLUOR NEEDLE/CATH SPINE/PARASPINAL DX/THER ADDON LUMBAR FACET - L4-5, L5-S1 Darell Watts MD [address] [place] [id number] [employer] [address] [place] [id number] Referral ID Status Reason Start Date Expiration Date Visits Re quested Visits Authorized [id number] 1 1 [employer] Phone: Assessments Diagnosis Intestinal malabsorption, unspecified type- Primary Other iron deficiency anemia Diagnosis Intestinal malabsorption, unspecified type- Primary Other iron deficiency anemia Diagnosis Closed fracture of spinous process of cervical vertebra, initial encounter ([facility]) Fall at home, initial encounter Diagnosis Closed nondisplaced fracture of fourth cervical vertebra, unspecified fracture morphology, initial encounter ([facility]) Diagnosis Type 2 diabetes mellitus with other specified complication, with long-term current use of insulin ([facility]) NAFLD (nonalcoholic fatty liver disease) Other chronic nonalcoholic liver disease Diagnosis BAILEY (dyspnea on exertion) Other dyspnea and respiratory abnormality Diagnosis Postmenopausal Asymptomatic postmenopausal status (age-related) (natural) Diagnosis NAFLD (nonalcoholic fatty liver disease) Other chronic nonalcoholic liver disease Diagnosis Generalized weakness Other malaise and fatigue Diagnosis Iron deficiency anemia, unspecified iron deficiency anemia type Intestinal malabsorption, unspecified type Diagnosis CKD (chronic kidney disease) stage 3, GFR 30-59 ml/min Chronic kidney disease, Stage III (moderate) Nephrolithiasis Calculus of kidney Diagnosis Stage 3 chronic kidney disease (HCC) History of anemia Personal history of diseases of blood and blood-forming organs Type 2 diabetes mellitus with other specified complication, with long-term current use of insulin (HCC) Essential hypertension Unspecified essential hypertension Diagnosis Personal history of tobacco use Personal history of tobacco use, presenting hazards to health Diagnosis Closed 2-part displaced fracture of surgical neck of right humerus, initial encounter Injury of head, initial encounter Closed fracture of nasal bone, initial encounter Findings Encounter Date Encounter for Immunization 1st COVID Vaccine nelly Bardales PharmD 11/23/2020 Advance Directives No Advanced Directives Records FoundDocuments on File Type Date Recorded Patient Site Auditor Expl anation Advance Directives and Living Will Power of Welt Drawer Documents on File Type Date Recorded Patient Site Auditor Expl anation Advance Directives and Living Will Power of Welt Drawer Latest Code Status on File Code Status Date Activated Date Inactivated Comments Full Code 11/24/2019 2:56 AM Latest Code Status on File Code Status Date Activated Date Inactivated Comments Full Code 11/24/2019 2:56 AM 11/24/2019 9:22 PM Latest Code Status on File Code Status Date Activated Date Inactivated Comments Full Code 11/24/2019 2:56 AM 11/24/2019 9:22 PM Documents on File Type Date Recorded Patient Site Auditor Expl anation ACP-Advance Directive ACP-Power of Welt Drawer Documents on File Type Date Recorded Patient Site Auditor Expl anation ACP-Advance Directive ACP-Power of Welt Drawer Latest Code Status on File Code Status Date Activated Date Inactivated Comments Full Code 02/08/2021 12:59 AM Full Code 11/24/2019 2:56 AM 11/24/2019 9:22 PM Latest Code Status on File Code Status Date Activated Date Inactivated Comments Full Code 02/08/2021 12:59 AM 02/11/2021 3:17 PM Latest Code Status on File Code Status Date Activated Date Inactivated Comments Full Code 02/08/2021 12:59 AM 02/11/2021 3:17 PM Full Code 11/24/2019 2:56 AM 11/24/2019 9:22 PM Healthcare Agents on File Name Relationship Healthcare Agent Relationshi p Communication Keny Strong-Kristen Child Primary Decision [facility] er Documents on File Type Date Recorded Patient Site Auditor Expl anation ACP-Advance Directive ACP-Power of Welt Drawer ACP-Do Not Resuscitate 08/28/2021 11:42 AM Directives to Define the scope of care- Full Resuscitative Measures ACP-Do Not Resuscitate 08/23/2021 11:22 AM FULL RESUSCITATION Latest Code Status on File Code Status Date Activated Date Inactivated Comments Full Code 11/26/2021 1:11 PM Full Code 02/08/2021 12:59 AM 02/11/2021 3:17 PM Healthcare Agents on File Name Relationship Healthcare Agent Relationship Communication Keny Strong-Kristen Child Primary Decision [facility] er Latest Code Status on File Code Status Date Activated Date Inactivated Comments Full Code 11/26/2021 1:11 PM 11/26/2021 5:06 PM Healthcare Agents on File Name Relationship Healthcare Agent Relationship Communication Keny Strong-Kristen Child Primary Decision [facility] er Documents on File Type Date Recorded Patient Site Auditor Expl anation ACP-Advance Directive ACP-Power of [place] [facility] ACP-Do Not Resuscitate 08/28/2021 11:42 AM Directives to Define the scope of care- Full Resuscitative Measures ACP-Do Not Resuscitate 08/23/2021 11:22 AM FULL RESUSCITATION Latest Code Status on File Code Status Date Activated Date Inactivated Comments Full Code 11/26/2021 1:11 PM 11/26/2021 5:06 PM Full Code 02/08/2021 12:59 AM 02/11/2021 3:17 PM Healthcare Agents on File Name Relationship Healthcare Agent Relationship Communication Keny Strong-Kristen Child Primary Decision [facility] er Healthcare Agents on File Name Relationship Healthcare Agent Relationship Communication Keny Strong-Kristen Child Primary Decision [facility] er Healthcare Agents on File Name Relationship Healthcare Agent Relationship Communication Keny Strong-Kristen Child Primary Decision [facility] er Healthcare Agents on File Name Relationship Healthcare Agent Relationship Communication Keny Strong-Kristen Child Primary Decision [facility] er Healthcare Agents on File Name Relationship Healthcare Agent Relationship Communication Keny Strong-Krisetn Child Primary Decision [facility] er Healthcare Agents on File Name Relationship Healthcare Agent Relationship Communication Keny Strong-Kristen Child Primary Decision [facility] er Healthcare Agents on File Name Relationship Healthcare Agent Relationship Communication Keny Strong-Kristen Child Primary Decision [facility] er Documents on File Type Date Recorded Patient Site Auditor Expl anation ACP-Do Not Resuscitate 08/28/2021 11:42 AM Directives to Define the scope of care- Full Resuscitative Measures ACP-Do Not Resuscitate 08/23/2021 11:22 AM FULL RESUSCITATION Latest Code Status on File Code Status Date Activated Date Inactivated Comments Full Code 03/18/2022 3:25 PM Full Code 11/26/2021 1:11 PM 11/26/2021 5:06 PM Healthcare Agents on File Name Relationship Healthcare Agent Relationship Communication Keny Strong-Kristen Child Primary Decision [facility] er Documents on File Type Date Recorded Patient Site Auditor Expl anation ACP-Do Not Resuscitate 08/28/2021 11:42 AM Directives to Define the scope of care- Full Resuscitative Measures ACP-Do Not Resuscitate 08/23/2021 11:22 AM FULL RESUSCITATION Latest Code Status on File Code Status Date Activated Date Inactivated Comments Full Code 03/18/2022 3:25 PM 03/18/2022 8:13 PM Full Code 11/26/2021 1:11 PM 11/26/2021 5:06 PM Healthcare Agents on File Name Relationship Healthcare Agent Relationshi p Communication Keny Kristen Child Primary Decision Maker Latest Code Status on File Code Status Date Activated Date Inactivated Comments Full Code 03/18/2022 3:25 PM 03/18/2022 8:13 PM Healthcare Agents on File Name Relationship Healthcare Agent Relationshi p Communication Keny Kristen Child Primary Decision Maker Latest Code Status on File Code Status Date Activated Date Inactivated Comments Full Code 08/08/2022 12:14 AM 08/13/2022 6:59 PM Full Code 06/10/2022 2:50 PM 06/10/2022 6:53 PM Full Code 03/18/2022 3:25 PM 03/18/2022 8:13 PM Healthcare Agents on File Name Relationship Healthcare Agent Relationship Communication Keny Kristen Child Primary Decision Maker Tamanna Strong Nfjgauow-bq-Mor Secondary Decision Make r Healthcare Agents on File Name Relationship Healthcare Agent Relationship Communication Keny Kristen Child Primary Decision Maker Tamanna Strong Masxrlmp-xj-Jww Secondary Decision Make r Latest Code Status on File Code Status Date Activated Date Inactivated Comments Full Code 09/07/2022 1:13 AM Full Code 08/08/2022 12:14 AM 08/13/2022 6:59 PM Full Code 06/10/2022 2:50 PM 06/10/2022 6:53 PM Full Code 03/18/2022 3:25 PM 03/18/2022 8:13 PM Healthcare Agents on File Name Relationship Healthcare Agent Relationship Communication Keny Kristen Child Primary Decision Maker Tamanna Strong Lamkddru-wq-Wfl Secondary Decision Make r Latest Code Status on File Code Status Date Activated Date Inactivated Comments Full Code 09/07/2022 1:13 AM 09/11/2022 8:48 PM Full Code 08/08/2022 12:14 AM 08/13/2022 6:59 PM Healthcare Agents on File Name Relationship Healthcare Agent Relationship Communication Keny Kristen Child Primary Decision Maker Tamanna Strong Fhrygvqa-nn-Ute Secondary Decision Make r Latest Code Status on File Code Status Date Activated Date Inactivated Comments Full Code 10/04/2022 4:56 AM Full Code 09/07/2022 1:13 AM 09/11/2022 8:48 PM Healthcare Agents on File Name Relationship Healthcare Agent Relationship Communication Keny Kristen Child Primary Decision Maker Tamanna Strong Glidveff-un-Wuq Secondary Decision Make r Latest Code Status on File Code Status Date Activated Date Inactivated Comments Full Code 10/04/2022 4:56 AM 10/17/2022 7:32 PM Healthcare Agents on File Name Relationship Healthcare Agent Relationship Communication Keny Kristen Child Primary Decision Maker Tamanna Strong Ywmgfzhi-ak-Vsr Secondary Decision Make r Healthcare Agents on File Name Relationship Healthcare Agent Relationship Communication Keny Kristen Child Primary Decision Maker Tamanna Strong Wikdsgkl-xe-Czq Secondary Decision Make r Healthcare Agents on File Name Relationship Healthcare Agent Relationship Communication Keny Kristen Child Primary Decision Maker Tamanna Strong Lrdqawbc-pv-Kbn Secondary Decision Make r Documents on File Type Date Recorded Patient Site Auditor Expl anation ACP-Advance Directive 11/19/2022 11:41 AM D POAHC and Living Will ACP-Do Not Resuscitate 08/28/2021 11:42 AM Directives to Define the scope of care- Full Resuscitative Measures ACP-Do Not Resuscitate 08/23/2021 11:22 AM FULL RESUSCITATION Latest Code Status on File Code Status Date Activated Date Inactivated Comments Full Code 11/18/2022 11:06 PM Code Status History Code Status Date Activated Date Inactivated Comments Full Code 10/04/2022 4:56 AM 10/17/2022 7:32 PM Full Code 09/07/2022 1:13 AM 09/11/2022 8:48 PM Full Code 08/08/2022 12:14 AM 08/13/2022 6:59 PM Full Code 06/10/2022 2:50 PM 06/10/2022 6:53 PM Healthcare Agents on File Name Relationship Healthcare Agent Relationship Communication Keny Kristen Child Primary Decision Maker Tamanna Strong Iymvvkwv-ii-Pzh Secondary Decision Make r Latest Code Status on File Code Status Date Activated Date Inactivated Comments Full Code 11/18/2022 11:06 PM 11/25/2022 6:03 PM Healthcare Agents on File Name Relationship Healthcare Agent Relationship Communication Keny Kristen Child Primary Decision Maker Tamanna Strong Nxsbdbob-be-Aiq Secondary Decision Make r Healthcare Agents on File Name Relationship Healthcare Agent Relationship Communication Keny Kristen Child Primary Decision Maker Tamanna Strong Mrjpoxae-du-Qhe Secondary Decision Make r Healthcare Agents on File Name Relationship Healthcare Agent Relationship Communication Keny Kristen Child Primary Decision Maker Tamanna Strong Hxisfdfw-yy-Opf Secondary Decision Make r Healthcare Agents on File Name Relationship Healthcare Agent Relationship Communication Keny Kristen Child Primary Decision Maker Tamanna Strong Tsaxaipy-mx-Vze Secondary Decision Make r Healthcare Agents on File Name Relationship Healthcare Agent Relationship Communication Keny Peterson Child Primary Decision Maker Tamanna Strong Nxjqiciu-ih-Ixk Secondary Decision Make r Healthcare Agents on File Name Relationship Healthcare Agent Relationship Communication Keny Peterson Child Primary Decision Maker Tamanna Strong Lrebdtla-pg-Rft Secondary Decision Make r Documents on File Type Date Recorded Patient Site Auditor Expl anation ACP-Advance Directive 01/13/2023 2:16 PM ACP-Advance Directive 01/13/2023 2:16 PM P OA ACP-Advance Directive 11/19/2022 11:41 AM D POAHC and Living Will ACP-Do Not Resuscitate 08/28/2021 11:42 AM Directives to Define the scope of care- Full Resuscitative Measures ACP-Do Not Resuscitate 08/23/2021 11:22 AM FULL RESUSCITATION Latest Code Status on File Code Status Date Activated Date Inactivated Comments Full Code 01/11/2023 12:18 AM Code Status History Code Status Date Activated Date Inactivated Comments Full Code 11/18/2022 11:06 PM 11/25/2022 6:03 PM Full Code 10/04/2022 4:56 AM 10/17/2022 7:32 PM Full Code 09/07/2022 1:13 AM 09/11/2022 8:48 PM Full Code 08/08/2022 12:14 AM 08/13/2022 6:59 PM Healthcare Agents on File Name Relationship Healthcare Agent Relationship Communication Keny Peterson Child Primary Decision Maker Tamanna Strong Hwwubwug-td-Fej Secondary Decision Make r Latest Code Status on File Code Status Date Activated Date Inactivated Comments Full Code 01/11/2023 12:18 AM 01/16/2023 11:46 AM Healthcare Agents on File Name Relationship Healthcare Agent Relationship Communication Keny Peterson Child Primary Decision Maker Tamanna Strong Tnzbfpbp-uw-Sdm Secondary Decision Make r Latest Code Status on File Code Status Date Activated Date Inactivated Comments Full Code 02/23/2023 5:14 PM 02/25/2023 7:11 PM Code Status History Code Status Date Activated Date Inactivated Comments Full Code 02/23/2023 5:14 PM 02/23/2023 5:14 PM Full Code 01/11/2023 12:18 AM 01/16/2023 11:46 AM Full Code 11/18/2022 11:06 PM 11/25/2022 6:03 PM Full Code 10/04/2022 4:56 AM 10/17/2022 7:32 PM Healthcare Agents on File Name Relationship Healthcare Agent Relationship Communication Keny Peterson Child Primary Decision Maker Tamanna Strong Oerdoabd-lk-Nfb Secondary Decision Make r Documents on File Type Date Recorded Patient Site Auditor Expl anation ACP-Advance Directive 04/01/2023 10:15 AM ACP-Advance Directive 01/13/2023 2:16 PM ACP-Advance Directive 01/13/2023 2:16 PM P OA ACP-Advance Directive 11/19/2022 11:41 AM D POAHC and Living Will ACP-Do Not Resuscitate 08/28/2021 11:42 AM Directives to Define the scope of care- Full Resuscitative Measures ACP-Do Not Resuscitate 08/23/2021 11:22 AM FULL RESUSCITATION Latest Code Status on File Code Status Date Activated Date Inactivated Comments Full Code 03/26/2023 11:48 PM 03/27/2023 7:40 PM Code Status History Code Status Date Activated Date Inactivated Comments Full Code 02/23/2023 5:14 PM 02/25/2023 7:11 PM Full Code 02/23/2023 5:14 PM 02/23/2023 5:14 PM Full Code 01/11/2023 12:18 AM 01/16/2023 11:46 AM Full Code 11/18/2022 11:06 PM 11/25/2022 6:03 PM Healthcare Agents on File Name Relationship Healthcare Agent Relationship Communication Keny Peterson Child Primary Decision Maker Tamanna Strong Zhmrvxiz-pb-Hds Secondary Decision Make r Documents on File Type Date Recorded Patient Site Auditor Expl anation ACP-Advance Directive 04/06/2023 9:35 AM ACP-Advance Directive 04/01/2023 10:15 AM ACP-Advance Directive 01/13/2023 2:16 PM ACP-Advance Directive 01/13/2023 2:16 PM P OA ACP-Advance Directive 11/19/2022 11:41 AM D POAHC and Living Will ACP-Do Not Resuscitate 08/28/2021 11:42 AM Directives to Define the scope of care- Full Resuscitative Measures ACP-Do Not Resuscitate 08/23/2021 11:22 AM FULL RESUSCITATION Healthcare Agents on File Name Relationship Healthcare Agent Relationship Communication Keny Peterson Child Primary Decision Maker Tamanna Strong Yirefdrs-ei-Ucc Secondary Decision Make r Discharge Instructions * Discharge Instr - CRISTOBAL* Katie Tolliver, EMELY - 11/24/2019 5:48 PM EDT Continuity of Care Form Patient Name: Angella Olson : 1955 Admit date: 11/24/2019 Discharge date: Code Status Order: Full Code Advance Directives: Advance Care Flowsheet Documentation Date/Time Healthcare Directive Type of Healthcare Directive Copy in Chart Healthcare Agent Appointed Healthcare Agent's Name Healthcare Agent's Phone Number 11/24/19 0311 No, patient does not have an advance directive for healthcare treatment -- -- -- -- -- Admitting Physician: Nima Larios MD PCP: CELIA Valle CNP Discharging Nurse: Discharging Hospital Unit/Room#: 0249/0249-01 Discharging Unit Phone Number: Emergency Contact: Extended Emergency Contact Information Primary Emergency Contact: Keny Ruiz Relation: Child Director Drug needed? No Secondary Emergency Contact: Tamanna Ruiz Relation: Other Director Drug needed? No Past Surgical History: Past Surgical History: Procedure Laterality Date ABDOMEN SURGERY Removal of scar tissue per Laparoscopy procedure. BACK SURGERY Donor cervical fusion. SECTION [address]Eric Izaguirre in [place], [place]-unsure when EYE SURGERY Retinal surgery. OTHER SURGICAL HISTORY Removal of mass from left mid arm. UPPER GASTROINTESTINAL ENDOSCOPY [facility] unsure when Immunization History: Immunization History Administered Date(s) Administered Influenza, Quadv, IM, PF (6 mo and older Fluzone, Flulaval, Fluarix, and 3 yrs and older Afluria) 05/30/2019 Pneumococcal Polysaccharide ([id number]) 10/18/2019 Tdap (Boostrix, Adacel) 11/23/2019 Active Problems: Patient Active Problem List Diagnosis Code Chronic back pain M54.9, G89.29 Stage 3 chronic kidney disease (HCC) N18.3 Essential hypertension I10 Bipolar disorder with depression (HCC) F31.9 Type 2 diabetes mellitus, with long-term current use of insulin (HCC) E11.9, Z79.4 History of diabetic gastroparesis Z86.39 Obesity (BMI 30-39.9) E66.9 Iron deficiency anemia D50.9 Malabsorption K90.9 Fall at home, initial encounter W19.XXXA, Y92.009 Closed fracture of spinous process of cervical vertebra (HCC) S12.9XXA Isolation/Infection: Isolation No Isolation Patient Infection Status None to display Nurse Assessment: Last Vital Signs: BP 113/62 Pulse 55 Temp 97 F (36.1 C) (Oral) Resp 16 Ht 5' 3 (1.6 m) Wt 195 lb (88.5 kg) LMP (LMP Unknown) SpO2 97% BMI 34.54 kg/m Last documented pain score (0-10 scale): Pain Level: 4 Last Weight: Wt Readings from Last 1 Encounters: 11/24/19 195 lb (88.5 kg) Mental Status: {IP PT MENTAL STATUS:} IV Access: { CRISTOBAL IV ACCESS:034352084} Nursing Mobility/ADLs: Walking {CHP DME ADLs:149534537} Transfer {CHP DME ADLs:011261220} Bathing {CHP DME ADLs:699971466} Dressing {CHP DME ADLs:845342283} Toileting {CHP DME ADLs:196879129} Feeding {CHP DME ADLs:039435885} Fountain Worker {CHP DME ADLs:644322466} Med Delivery { CRISTOBAL MED Delivery:266243110} Wound Care Documentation and Therapy: Elimination: Continence: Bowel: {YES / NO:} Bladder: {YES / NO:} Urinary Catheter: {Urinary Catheter:024822648} Colostomy/Ileostomy/Ileal Conduit: {YES / NO:} Date of Last BM: No intake or output data in the 24 hours ending 11/24/19 1748 No intake/output data recorded. Safety Concerns: { CRISTOBAL Safety Concerns:245607985} Impairments/Disabilities: { CRISTOBAL Impairments/Disabilities:275477018} Nutrition Therapy: Current Nutrition Therapy: { CRISTOBAL Diet List:157130159} Routes of Feeding: {P DME Other Feedings:565021002} Liquids: {Social Worker liquid thickness:76371} Daily Fluid Restriction: {CHP DME Yes amt example:503290658} Last Modified Barium Swallow with Video (Video Swallowing Test): {Done Not Done Date:} Treatments at the Time of Hospital Discharge: Respiratory Treatments: Oxygen Therapy: {Therapy; copd oxygen:91909} Ventilator: { CC Vent List:392018552} Rehab Therapies: {THERAPEUTIC INTERVENTION:3324458472} Weight Bearing Status/Restrictions: { CC Weight Bearin} Other Medical Equipment (for information only, NOT a DME order): {EQUIPMENT:591982138} Other Treatments: Patient's personal belongings (please select all that are sent with patient): {P DME Belongings:313767496} RN SIGNATURE: {Esignature:026664102} CASE MANAGEMENT/SOCIAL WORK SECTION Inpatient Status Date: Readmission Risk Assessment Score: Readmission Risk Risk of Unplanned Readmission: 0 Discharging to Facility/ Agency Name: Address: Phone: Fax: Dialysis Facility (if applicable) Name: Address: Dialysis Schedule: Phone: Fax: [employer]/Legal Recovery Specialist signature: {Esignature:737156902} PHYSICIAN SECTION Prognosis: {Prognosis:0383142062} Condition at Discharge: { Patient Condition:342287656} Rehab Potential (if transferring to Rehab): {Prognosis:3046989184} Recommended Labs or Other Treatments After Discharge: Physician Certification: I certify the above information and transfer of Angella Olson is necessary for the continuing treatment of the diagnosis listed and that she requires {Admit to Appropriate Level of Care:87009} for {GREATER/LESS:102446827} 30 days. Update Admission H&P: {P DME Changes in HandP:632164581} PHYSICIAN SIGNATURE: {Esignature:286957712} * Additional Instructions* Zoya Lawson RN - 11/24/2019 Discharge Instructions for Trauma Please continue to use your Incentive Spirometer as directed. You can practice 10 deep breaths/hour while awake. Using the Incentive Spirometer will promote the health of your lungs by taking slow, deep breaths in. It is also important in preventing pneumonia or a pneumothorax from developing. What to do after you leave the hospital: General questions or concerns may be called to the trauma nurse line at [phone] and please leave a message. Trauma is a life-threatening condition. Your doctor will want to closely monitor you. Be sure to goto all of your appointments. You were seen and evaluated by a Trauma doctor, Dr. Larios, and a Neurosurgery doctor, Dr. Donohue after you fell. You had an MRI done on 11/24/2019 that showed a C4 spinous process fracture. You do notneed surgery for this. You may wear the neck brace (cervical collar) for comfort. Schedule a followup appointment with Neurosurgery in 1 month. Spine Fracture: Care Instructions Your Care Instructions A spine fracture is a break in one of the bones (vertebrae) in your spine. The body of the vertebra, which bears the weight, can break. It has smaller bones that branch off to form a protective ring around the spinal cord. These bones, which can also break, include: The spinous process, which sticks out behind the vertebra. The transverse processes, which stick out from the sides. The pedicles, which connect the processes to the vertebral body. The lamina, which connects the processes to each other. A spine fracture can damage the spinal cord or a nerve root. The nerve root is the part of a nerve that leads from the spinal cord to the rest of the body. Your doctor will give you specific information about your type of break. You may be sent home with a brace to help your back heal. You can help your spine heal with care athome. You heal best when you take good care of yourself. Eat a variety of healthy foods, and don't smoke. Follow-up care is a king part of your treatment and safety. Be sure to make and go to all appointments, and call your doctor if you are having problems. It's also a good idea to know your test resultsand keep a list of the medicines you take. How can you care for yourself at home? Follow your doctor's instructions for bed rest and activity. If you have a brace, wear it as directed. Do not stop wearing it until your doctor tells you to stop. Do any exercises that you are given to keep your muscles strong and reduce stiffness. Be safe with medicines. Take pain medicines exactly as directed. ? If the doctor gave you a prescription medicine for pain, take it as prescribed. ? If you are not taking a prescription pain medicine, ask your doctor if you can take an jrtd-mjx-kodkqwy medicine. Put ice or a cold pack on the painful area for 10 to 20 minutes at a time. Try to do this every 1 to 2 hours for the next 3 days (when you are awake). Put a thin cloth between the ice and your skin or brace. Make sure that paths in your home are clear so that you do not fall. Also, make sure that lighting is good and that carpets are tacked down to prevent tripping. Do not drive unless your doctor says that it is okay. If you are allowed to drive, always wear a seat belt. Talk to your doctor about medicines or changes in your diet that can help make your bones stronger. When should you call for help? Call 911 anytime you think you may need emergency care. For example, call if: You cannot move an arm or a leg at all. Call your doctor now or seek immediate medical care if: You have new or worse symptoms in your arms, legs, chest, belly, or buttocks. Symptoms may include: ? Numbness or tingling. ? Weakness. ? Pain. You lose bladder or bowel control. You have belly pain, bloating, vomiting, or nausea. Watch closely for changes in your health, and be sure to contact your doctor if: You have a fever, lose weight, or don't feel well. You are not getting better as expected. Where can you learn more? Go to [email or web address] and sign in to your [email or web address] account. Enter R964 in the Search Health Information box to learn more about Spine Fracture: Care Instructions. If you do not have an account, please click on the Sign Up Now link. Current as of: February 09, 2019Content Version: 12.4 [employer]. Care instructions adapted under license by [employer]. If you have questions about a medical condition or this instruction, always ask your healthcare professional. [employer] disclaims any warranty or liability for your use of this information. * Attachments The following attachments cannot be sent through Care Everywhere. * oxycodone (Moroccan) documented in this encounter* Attachments The following attachments cannot be sent through Care Everywhere. * Weakness: Generalized (Moroccan) * Fatigue (Moroccan) documented in this encounter* Attachments The following attachments cannot be sent through Care Everywhere. * Nose Fracture (Moroccan) * Head Injury: Closed: General Info (Moroccan) documented in this encounter History of Present Illness * Zoya Lawson RN - 11/24/2019 6:40 PM EDT Patient given soft cervical collar. * Brigitte Viramontes, PT - 11/24/2019 5:30 PM EDT Physical Therapy Facility/Department: [address] ORTHO/MED SURG Initial Assessment NAME: Angella Olson : 1955 Date of Service: 11/24/2019 Discharge Recommendations: Further therapy recommended at discharge. PT Equipment Recommendations Equipment Needed: Yes Mobility Devices: Walker Walker: Rolling Assessment Body structures, Functions, Activity limitations: Decreased functional mobility ;Decreased endurance;Decreased balance;Increased pain;Decreased posture Assessment: Pt ambulated 300ft w/ RW SBA, requiring 4 standing rest breaks throughout ambulation due to fatigue and complaints of a headache this date. Pt would benefit from continued skilled physical therapy to address endurance and balance deficits and return pt to prior level of function. Prognosis: Good Decision Making: Medium Complexity PT Education: Goals;PT Role;Plan of Care REQUIRES PT FOLLOW UP: Yes Activity Tolerance Activity Tolerance: Patient Tolerated treatment well;Patient limited by endurance Patient Diagnosis(es): The primary encounter diagnosis was Closed fracture of spinous process of cervical vertebra, initial encounter ([facility]). A diagnosis of Fall at home, initial encounter was also pertinent to this visit. 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 has a past surgical history that includes back surgery; Eye surgery; Abdomen surgery; section (1984); other surgical history; Colonoscopy; and Upper gastrointestinal endoscopy. Restrictions Restrictions/Precautions Restrictions/Precautions: General Precautions Required Braces or Orthoses?: No Required Braces or Orthoses Cervical: c-collar(soft collar for comfort as needed) Position Activity Restriction Other position/activity restrictions: Up w/assist Vision/Hearing Vision: Impaired Vision Exceptions: Wears glasses at all times Hearing: Within functional limits Subjective General Patient assessed for rehabilitation services?: Yes Response To Previous Treatment: Not applicable Family / Caregiver Present: No Follows Commands: Within Functional Limits Subjective Subjective: RN and pt in agreement for PT eval; pt supine in bed upon PT arrival, pleasant and cooperative Pain Screening Patient Currently in Pain: Yes Pain Assessment Pain Assessment: 0-10 Pain Level: 4 Pain Type: Acute pain;Chronic pain Pain Location: Neck Pain Descriptors: Constant Non-Pharmaceutical Pain Intervention(s): Ambulation/Increased Activity;Repositioned Response to Pain Intervention: Patient Satisfied Multiple Pain Sites: No Vital Signs Patient Currently in Pain: Yes Orientation Orientation Overall Orientation Status: Within Functional Limits Social/Functional History Social/Functional History Lives With: Alone Type of Home: Apartment Home Layout: One level Home Access: Level entry Bathroom Shower/Tub: Walk-in shower Bathroom Toilet: Standard Bathroom Equipment: Grab bars in shower, Shower chair Home Equipment: 4 wheeled walker, Hospital bed, Cane ADL Assistance: Independent Homemaking Assistance: Independent Homemaking Responsibilities: Yes Ambulation Assistance: Independent(Pt ambulates with rollator at baseline) Transfer Assistance: Independent Active Cro: No Mode of Transportation: Cab, Bus Occupation: On disability Additional Comments: Son is able to provide prn assist upon discharge Cognition Cognition Overall Cognitive Status: WFL Objective Joint Mobility Spine: WFL ROM RLE: WFL ROM LLE: WFL ROM RUE: See OT assessment- PT/ OT coeval ROM LUE: See OT assessment- PT/ OT coeval Strength RLE Strength RLE: WFL Strength LLE Strength LLE: WFL Strength RUE Comment: See OT assessment- PT/ OT coeval Strength LUE Comment: See OT assessment- PT/ OT coeval Sensation Overall Sensation Status: WFL(Pt denies numbness/tingling) Bed mobility Supine to Sit: Stand by assistance Sit to Supine: Stand by assistance Comment: Increased time required to complete. HOB elevated with use of bed rails Transfers Sit to Stand: Stand by assistance Stand to sit: Stand by assistance Comment: STS performed x2 from bedside and toliet Ambulation Ambulation?: Yes Ambulation 1 Surface: level tile Device: Rolling Walker Assistance: Stand by assistance Quality of Gait: Decreased step length bilaterally Gait Deviations: Slow Kayla Distance: 100ft x3 Comments: Increased time required to ambulate distance this date. Pt took 4 standing rest breaks throughout ambulation due to fatigue this date. Stairs/Curb Stairs?: No Balance Posture: Fair Sitting - Static: Good;- Sitting - Dynamic: Good;- Standing - Static: Fair;+ Standing - Dynamic: Fair;+ Comments: Standing balance assessed w/ RW Plan Plan Times per week: 5x/week Current Treatment Recommendations: Strengthening, Balance Training, Transfer Training, Endurance Training, ROM, Stair training, Gait Training, Home Exercise Program Safety Devices Type of devices: Call light within reach, Bed alarm in place, Gait belt, Left in bed, Nurse notified Restraints Initially in place: No AM-PAC Score AM-PAC Inpatient Mobility without Stair Climbing Raw Score : 17 (11/24/191728) AM-PAC Inpatient without Stair Climbing T-Scale Score : 48.47 (11/24/191728) Mobility Inpatient CMS 0-100% Score: 32.72 (11/24/191728) Mobility Inpatient without Stair CMS G-Code Modifier : CJ (11/24/191728) Goals Short term goals Time Frame for Short term goals: 10 Short term goal 1: Pt to perform bed mobility and functional transfers Junito Short term goal 2: Ambulate 500ft w/ RW with supervision Short term goal 3: Tolearate 30 minutes of therapy to demo increased endurance Short term goal 4: Demonstrate standing balance of good - to decrease fall risk Patient Goals Patient goals : Did not state Therapy Time Individual Concurrent Group Co-treatment Time In 1612 Time Out 1648 Minutes 36 Timed Code Treatment Minutes: 10 Minutes Brigitte Viramontes PT * Idalmis Gandhi, OT - 11/24/2019 5:08 PM EDT Occupational Therapy Occupational Therapy Initial Assessment Date: 11/24/2019 Patient Name: Angella Olson : 1955 Date of Service: 11/24/2019 Discharge Recommendations: Further therapy recommended at discharge. Assessment Performance deficits / Impairments: Decreased functional mobility ;Decreased ADL status;Decreased high-level IADLs;Decreased balance;Decreased endurance Prognosis: Good Decision Making: Medium Complexity OT Education: OT Role;Plan of Care;ADL Adaptive Strategies;IADL Safety;Equipment;Transfer Training REQUIRES OT FOLLOW UP: Yes Activity Tolerance Activity Tolerance: Patient Tolerated treatment well Safety Devices Safety Devices in place: Yes Type of devices: Nurse notified;Gait belt;Call light within reach;Bed alarm in place;Left in bed Restraints Initially in place: No Patient Diagnosis(es): The primary encounter diagnosis was Closed fracture of spinous process of cervical vertebra, initial encounter (HCC). A diagnosis of Fall at home, initial encounter was also pertinent to this visit. 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 has a past surgical history that includes back surgery; Eye surgery; Abdomen surgery; section (1984); other surgical history; Colonoscopy; and Upper gastrointestinal endoscopy. Restrictions Restrictions/Precautions Required Braces or Orthoses?: No Required Braces or Orthoses Cervical: c-collar(soft collar for comfort) Position Activity Restriction Other position/activity restrictions: Up w/assist Subjective General Patient assessed for rehabilitation services?: Yes Family / Caregiver Present: No Patient Currently in Pain: Denies(denies at rest) Pain Assessment Clinical Progression: Not changed Vital Signs Level of Consciousness: Alert Patient Currently in Pain: Denies(denies at rest) Social/Functional History Social/Functional History Lives With: Alone Type of Home: Apartment Home Layout: One level Home Access: Level entry Bathroom Shower/Tub: Walk-in shower Bathroom Toilet: Standard Bathroom Equipment: Grab bars in shower, Shower chair Home Equipment: 4 wheeled walker, Hospital bed, Cane ADL Assistance: Independent Homemaking Assistance: Independent Homemaking Responsibilities: Yes Ambulation Assistance: Independent(Pt ambulates with rollator at baseline) Transfer Assistance: Independent Active Cro: No Mode of Transportation: Cab, Bus Occupation: On disability Additional Comments: Son is able to provide prn assist upon discharge Objective Vision: Impaired Vision Exceptions: Wears glasses at all times Hearing: Within functional limits Orientation Overall Orientation Status: Within Functional Limits Balance Sitting Balance: Supervision Standing Balance: Supervision Standing Balance Time: ~15 mintues Activity: functional mobility Functional Mobility Functional - Mobility Device: Rolling Walker Activity: Other;To/from bathroom Assist Level: Stand by assistance Toilet Transfers Toilet - Technique: Ambulating Equipment Used: Standard toilet Toilet Transfer: Stand by assistance ADL Feeding: Independent Grooming: Stand by assistance UE Bathing: Stand by assistance LE Bathing: Stand by assistance UE Dressing: Stand by assistance(donning gown) LE Dressing: Stand by assistance(adjusting sock) Toileting: Stand by assistance(pt completing toileting, toileting tasks) Tone RUE RUE Tone: Normotonic Tone LUE LUE Tone: Normotonic Coordination Movements Are Fluid And Coordinated: Yes Bed mobility Supine to Sit: Stand by assistance Sit to Supine: Stand by assistance Comment: head of bed elevated Transfers Sit to stand: Stand by assistance Stand to sit: Stand by assistance Sensation Overall Sensation Status: WFL LUE AROM (degrees) LUE AROM : WFL Left Hand AROM (degrees) Left Hand AROM: WFL RUE AROM (degrees) RUE AROM : WFL Right Hand AROM (degrees) Right Hand AROM: WFL LUE Strength Gross LUE Strength: WFL RUE Strength Gross RUE Strength: WFL Plan Plan Times per week: 4-5x AM-PAC Score AM-[facility] Inpatient Daily Activity Raw Score: 18 (11/24/191708) AM-[facility] Inpatient ADL T-Scale Score : 38.66 (11/24/191708) ADL Inpatient CMS 0-100% Score: 46.65 (11/24/191708) ADL Inpatient CMS G-Code Modifier : CK (11/24/191708) Goals Short term goals Time Frame for Short term goals: by discharge pt will.. Short term goal 1: demo independent transfers Short term goal 2: demo independent functional mobility Short term goal 3: demo UB ADL task with set up and mod I Short term goal 4: demo LB ADL task with set up and mod I Therapy Time Individual Concurrent Group Co-treatment Time In 1612 Time Out 1648 Minutes 36 co eval with PT Timed Code Treatment Minutes: 15 Minutes Idalmis Gandhi OTR/L * Tulio Cifuentes RN - 11/24/2019 12:58 PM EDT Discharge plannin:00- Met with pt at bedside. Retail Assistant inquired about about living arrangements, and DME equipment, and support to create a safe discharge plan. Pt is living in a one story apartment where the living room, bathroom, kitchen, and bedroom is all on one floor and there are no steps. Pt says that her son, Keny is involved and lives 5 mins awayfrom her. Pt states that she would check with her son to see if he would be willing to check on hermore often at discharge and/or stay with him and his if needed. Pt normally walks with a walker/cane due to balance issues. Retail Assistant inquired about the reason for the balance issues and pt states that she has a history of a broken neck/lower spine (15 years ago) and has had balance issue ever since. Inquired about how many times pt has fallen in the past and pt states that she has no history of falls. Will wait for PT/OT evaluation and recommendation for activity for dispo planning. 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, left Type 2 diabetes mellitus without complication (HCC) Scheduled Meds: atenolol 25 mg Oral Daily atorvastatin 80 mg Oral Daily divalproex 750 mg Oral Nightly FLUoxetine 30 mg Oral Daily gabapentin 100 mg Oral TID lisinopril 5 mg Oral Daily metFORMIN 1,000 mg Oral BID WC pantoprazole 40 mg Oral QAM AC oxybutynin 10 mg Oral Daily pioglitazone 30 mg Oral Daily traZODone 50 mg Oral Nightly Vitamin D 1,000 Units Oral BID sodium chloride flush 10 mL Intravenous 2 times per day insulin lispro 0-18 Units Subcutaneous Q4H ALPRAZolam 1 mg Oral Once Continuous Infusions: lactated ringers 50 mL/hr at 11/24/19 0342 dextrose PRN Meds:sodium chloride flush, acetaminophen, polyethylene glycol, ondansetron, ibuprofen, glucose, dextrose, glucagon (rDNA), dextrose, LORazepam Subjective: Patient seen and examined at bedside this morning. No acute events overnight. Currently wearing c-collar. Pain well controlled. No other complaints. Objective: Patient Vitals for the past 8 hrs: BP Temp Temp src Pulse Resp SpO2 Height Weight 11/24/19 0756 113/62 97 F (36.1 C) Oral 55 16 97 % 11/24/19 0300 (!) 113/56 97.7 F (36.5 C) Oral 57 16 5' 3 (1.6 m) 195 lb (88.5 kg) No intake/output data recorded. No intake/output data recorded. PHYSICAL EXAM: GCS: 4 - Opens eyes on own 6 - Follows simple motor commands 5 - Alert and oriented Pupil size: Left 3 mm Right 3 mm Pupil reaction: Yes Wiggles fingers: Left Yes Right Yes Hand grasp: Left normal Right normal Wiggles toes: Left Yes Right Yes Plantar flexion: Left normal Right normal BP 113/62 Pulse 55 Temp 97 F (36.1 C) (Oral) Resp 16 Ht 5' 3 (1.6 m) Wt 195 lb (88.5 kg) LMP (LMP Unknown) SpO2 97% BMI 34.54 kg/m General appearance: alert, appears stated age and cooperative Head: Normocephalic, without obvious abnormality, atraumatic Eyes: conjunctivae/corneas clear. PERRL, EOM's intact. Fundi benign. Ears: normal TM's and external ear canals both ears Nose: no sinus tenderness Throat: lips, mucosa, and tongue normal; teeth and gums normal Neck: no adenopathy, no JVD, supple, symmetrical, trachea midline and thyroid not enlarged, symmetric, no tenderness/mass/nodules Back: symmetric, no curvature. ROM normal. No CVA tenderness. Lungs: clear to auscultation bilaterally Heart: regular rate and rhythm and S1, S2 normal Abdomen: soft, non-tender; bowel sounds normal; no masses, no organomegaly Pelvic: stable Extremities: extremities normal, atraumatic, no cyanosis or edema Pulses: 2+ and symmetric Skin: Skin color, texture, turgor normal. No rashes or lesions Neurologic: Grossly normal, cranial nerves II through XII intact, c-collar currently in place, 5/5 bilateral upper and lower extremity strength, sensation intact Spine: Spine Tenderness ROM Cervical 3 /10 Not Indicated Thoracic 0 /10 Normal Lumbar 0 /10 Normal Musculoskeletal Joint Tenderness Swelling ROM Right shoulder absent absent normal Left shoulder absent absent normal Right elbow absent absent normal Left elbow absent absent normal Right wrist absent absent normal Left wrist absent absent normal Right hand grasp absent absent normal Left hand grasp absent absent normal Right hip absent absent normal Left hip absent absent normal Right knee absent absent normal Left knee absent absent normal Right ankle absent absent normal Left ankle absent absent normal Right foot absent absent normal Left foot absent absent normal CONSULTS: Neurosurgery INJURIES: C4 spinous process fracture Patient Active Problem List Diagnosis Chronic back pain History of anemia Stage 3 chronic kidney disease (HCC) Essential hypertension Bipolar disorder with depression ([facility]) Type 2 diabetes mellitus, with long-term current use of insulin ([facility]) History of diabetic gastroparesis Chronic diarrhea Obesity (BMI 30-39.9) Iron deficiency anemia Malabsorption Fall at home, initial encounter Assessment/Plan: 1. Patient seen and examined at bedside this morning. 2. Labs and imaging reviewed. 3. Neurosurgery following for C4 spinous process fracture, patient currently in cervical precautions wearing collar, will obtain MRI this morning. 4. Xanax ordered for anxiety, okay to give 1 mg oral 15 minutes prior to MRI scan. One-time PRN order of Ativan IV 0.5 mg ordered, only to be given if patient becomes anxious while in the MRI scanner. 5. We will follow-up MRI results and neurosurgery recommendations. 6. Tertiary exam completed, no further imaging needed. 7. Discharge planning 8. PT/OT/speech recommendations. Benjamin Gonzalez DO 11/24/19, 8:08 AM documented in this encounter* Rosemarie Graham LSW - 04/30/2020 11:24 AM EDT Patient is approved to go to [facility] today. GENI Baer * Rosemarie Graham LSW - 04/30/2020 8:38 AM EDT Was consulted to ER regarding placing the patient. Discussed discharge plans with the patient and the son. Patient is a 64 year old female here with Generalized weakness. She is alert and oriented. Patient is a and lives at [facility]. She uses a cane and or walker when needed. Patient normally does her own cooking and cleaning. She manages her own medications and family provides the transportation. Her PCP is Hallie Huynh CNP. She has medical insurance that helps with medication costs. The discharge plan is to go to a SNF. She chose [facility] from the list. INFANTRY INDIRECT FIRE CREWMEMBER to monitor and assist with needs or concerns as they arise. Referral made to [facility] and paper work fax to SNF. Waiting for the approval from [facility]. GENI Baer documented in this encounter History of Present Illness not supported for this document type No History of Present Illness Recorded Reason for Referral Status Reason Specialty Diagnoses / Procedures Referred By Contact Referred To Contact Not Required - [place] Pulmonary Function Testing Diagnoses BAILEY (dyspnea on exertion) Procedures Full PFT Study With Bronchodilator Hallie Huynh APRN - NEWSPAPER COPY EDITOR [address] [place] [address] [address] [place] [address] Status Reason Specialty Diagnoses / Procedures Re ferred By Contact Referred To Contact Closed Radiology Diagnoses CKD (chronic kidney disease) stage 3, GFR 30-59 ml/min Nephrolithiasis Procedures US Renal Kidney HC US RETROPERITONEAL LIMITED Madai Prado MD [address] [address] m[address]tras[address] [place] [address] Status Reason Specialty Diagnoses / Procedures Referred By Contact Referred To Contact Not Required - [place] Radiology Diagnoses Personal history of tobacco use Procedures CT Lung Screen (Annual) Hallie Huynh APRN - NEWSPAPER COPY EDITOR [phone] Ct Scan [address] [place] [address] Status Reason Specialty Diagnoses / Procedures Referred By Contact Referred To Contact Open [facility] Diagnoses Complicated UTI (urinary tract infection) Sondra Weaver, COMMERCIAL HVAC SERVICE TECHNICIAN - NEWSPAPER COPY EDITOR [address] [phone] Scheduling Instructions [place] [address] Status Reason Specialty Diagnoses / Procedures Referre d By Contact Referred To Contact Closed Radiology Diagnoses Personal history of nicotine dependence Procedures CT lung screen [Initial/Annual] Mukesh Castanon APRN - NEWSPAPER COPY EDITOR [address] [place] [address] [place] [address] Specialty Diagnoses / Procedures Referred By Contac t Referred To Contact Echocardiography Diagnoses Dyspnea on exertion Procedures ECHO 2D WO Color Doppler Complete Camilo Boyd MD [address] [address] [facility] Echo [address] [place] [id number] Referral ID Status Reason Start Date Expiration Date Visits Re quested Visits Authorized [id number] Closed 05/13/2021 05/13/2022 1 1 Specialty Diagnoses / Procedures Referred By Contac t Referred To Contact Sleep Center Diagnoses ALAN (obstructive sleep apnea) Procedures Sleep Study with PAP Titration Rosalio Michaels COMMERCIAL HVAC SERVICE TECHNICIAN - NEWSPAPER COPY EDITOR [address] [address] Referral ID Status Reason Start Date Expiration Date Visits Re quested Visits Authorized [id number] Closed 12/10/2021 03/10/2022 1 1 Specialty Diagnoses / Procedures Referred By Contac t Referred To Contact Radiology Diagnoses Hepatic cirrhosis, unspecified hepatic cirrhosis type, unspecified whether ascites present (HCC) Fatty liver Type 2 diabetes mellitus without complication, unspecified whether jail insulin use (HCC) Esophageal varices without bleeding, unspecified esophageal varices type (HCC) Immunity status testing 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) Procedures LIVER Tony Wallace MD [address] [facility] [place] [address] Referral ID Status Reason Start Date Expiration Date Visits Re quested Visits Authorized [id number] Open 12/05/2021 12/05/2022 1 1 Specialty Diagnoses / Procedures Referred By Contac t Referred To Contact Radiology Diagnoses Other screening mammogram Procedures VIRGIE VONDA DIGITAL SCREEN BILATERAL Justyna Valderrama, COMMERCIAL HVAC SERVICE TECHNICIAN - NEWSPAPER COPY EDITOR [address] [place] [address] Referral ID Status Reason Start Date Expiration Date Visits Re quested Visits Authorized [id number] Closed 12/10/2021 12/10/2022 1 1 Specialty Diagnoses / Procedures Referred By Contac t Referred To Contact Sleep Center Diagnoses ALAN (obstructive sleep apnea) G47.33 (ICD-10-CM) - ALAN (obstructive sleep apnea) Procedures Sleep Study with PAP Titration LA POLYSOM 6/>YRS SLEEP W/CPAP 4/> ADDL MURPHY ATTND [id number] - LA POLYSOM 6/>YRS SLEEP W/CPAP 4/> ADDL MURPHY ATTND Rosalio Michaels, COMMERCIAL HVAC SERVICE TECHNICIAN - NEWSPAPER COPY EDITOR [address] [address] Referral ID Status Reason Start Date Expiration Date Visits Re quested Visits Authorized [id number] Closed 01/01/2022 01/01/2023 1 1 Specialty Diagnoses / Procedures Referred By Contac t Referred To Contact Radiology Diagnoses Other cirrhosis of liver (HCC) Procedures US LIVER Pat Baig MD [address] [place] [address] Referral ID Status Reason Start Date Expiration Date Visits Re quested Visits Authorized [id number] Open 04/14/2022 04/14/2023 1 1 Specialty Diagnoses / Procedures Referred By Contac t Referred To Contact Home Health Care Diagnoses Hepatic encephalopathy Sondra Guillory, COMMERCIAL HVAC SERVICE TECHNICIAN - NEWSPAPER COPY EDITOR [address] [place] [id number] Referral ID Status Reason Start Date Expiration Date V isits Requested Visits Authorized [id number] Open Continuity of Care 09/11/2022 09/11/2023 1 1 Scheduling Instructions [address] [address] Question Answer I certify that I, or a nurse practitioner or physician department assistant working with me, had an in-person encounter with the patient and the reason for the home care services is documented in the clinical note on: 09/11/2022 Will the referring provider be the attending provider for home health? [place] of attending provider for home health justyna valderrama cnp The patient is confined to home: Due to a condition where leaving their home is medically contraindicated, AND there is a normal inability to leave home, AND leaving home requires a considerable and taxing effort Patient requires the following home health services [facility], Physical Therapy, Occupational Therapy Comments Certification and medical necessity: I certify that, based on my findings, the following services are medically necessary home health services for Angella Olson for the following reasons: - Medication compliance and education for new medications changes in previous medications safety concerns medication management - Consult Physical Therapy for Evaluate and Treat - Consult Occupational Therapy for Evaluate and Treat - Nursing to assist and eval for further needs Instructions Instructions not supported for this document type No Instructions Recorded Family History Includes: Family History in patient's chart No Family History RecordedNo Family History Records FoundNo Family History Records FoundNo Family History Records FoundNo Family History Records FoundNo Family History Records Found Review of System Review of Systems not supported for this document type No Review of Systems Recorded Physical Exam Physical Exam not supported for this document type No Physical Exam Recorded Summary Purpose Additional Source Comments Reason for Visit (unrecogniz ed section and content) Status Reason Specialty Diagnoses / Procedures Referred By Contact Referred To Contact Authorized Diagnoses Other iron deficiency anemia Intestinal malabsorption, unspecified type Procedures Dora Krishnamurthy MD [address] [place] [address] [facility] [address] [place] [address] Reason Comments Fall fell this afternoon 3/, no LOC, hit face Status Reason Specialty Diagnoses / Procedures Referred By Contact Referred To Contact Not Required - [place] Pulmonary Function Testing Diagnoses BAILEY (dyspnea on exertion) Procedures Full PFT Study With Bronchodilator Hallie Huynh APRN - NEWSPAPER COPY EDITOR [address] [phone] [facility] Pft [address] [place] [address] Status Reason Specialty Diagnoses / Procedures Referred By Contact Referred To Contact Pending Review Radiology Diagnoses Postmenopausal Procedures DEXA BONE DENSITY AXIAL SKELETON DEXA Bone Density 2 Sites Hallie Huynh APRN - NEWSPAPER COPY EDITOR [address] [phone] [facility] [address] [place] [address] Status Reason Specialty Diagnoses / Procedures Referred By Contact Referred To Contact Pending Review Radiology Diagnoses NAFLD (nonalcoholic fatty liver disease) Procedures US GALLBLADDER RUQ US LIVER Hallie Huynh, COMMERCIAL HVAC SERVICE TECHNICIAN - NEWSPAPER COPY EDITOR [address] [place] [address] [facility] Ultrasound [address] [place] [address] Reason Comments Fatigue HAD RECENT FALL, RIG HT ARM FRACTURE- STATES SLID OUT OF BED AND EASED TO FLOOR AND WAS UNABLE TO GET SELF BACK UP. C/O GENERALIZED WEAKNESS Status Reason Specialty Diagnoses / Procedures Re ferred By Contact Referred To Contact Closed Radiology Diagnoses CKD (chronic kidney disease) stage 3, GFR 30-59 ml/min Nephrolithiasis Procedures US Renal Kidney HC US RETROPERITONEAL LIMITED Madai Prado MD [address] [facility] [address] [phone] [facility] Ultrasound [address] [place] [address] Status Reason Specialty Diagnoses / Procedures Referred By Contact Referred To Contact Not Required - [facility] Diagnoses Personal history of tobacco use Procedures CT Lung Screen (Annual) Hallie Huynh, COMMERCIAL HVAC SERVICE TECHNICIAN - NEWSPAPER COPY EDITOR [address] [place] [address] [facility] [address] Scan [address] [place] [address] Reason Comments Fall pt states she had ta patricia trash out this morning and pt states she fell, denies dizziness. Pt states she has pain in her face and right shoulder Reason Comments Altered Mental Status Brought in by EMS. Confused on the phone with sister. Status Reason Specialty Diagnoses / Procedures Referred By Contact Referred To Contact Diagnoses Complicated urinary tract infection Altered mental status Sophie Solomon MD [address] [facility] [address] [place] [id number] [facility] [place] Status Reason Specialty Diagnoses / Procedures Referre d By Contact Referred To Contact Closed Radiology Diagnoses Personal history of nicotine dependence Procedures CT lung screen [Initial/Annual] Mukesh Castanon, COMMERCIAL HVAC SERVICE TECHNICIAN - NEWSPAPER COPY EDITOR [address] [place] [address] [place] [address] Specialty Diagnoses / Procedures Referred By Contac t Referred To Contact Echocardiography Diagnoses Dyspnea on exertion Procedures ECHO 2D WO Color Doppler Complete Camilo Byod MD [address] [address] [facility] Echo [address] [place] [address] Referral ID Status Reason Start Date Expiration Date Visits Re quested Visits Authorized [id number] Closed 05/13/2021 05/13/2022 1 1 Reason Comments Fall from [facility] Rib Pain left side, was seen here for this previously Altered Mental Status slow to respond Specialty Diagnoses / Procedures Referred By Contac t Referred To Contact Sleep Center Diagnoses ALAN (obstructive sleep apnea) Procedures Sleep Study with PAP Titration Rosalio Michaels, COMMERCIAL HVAC SERVICE TECHNICIAN - NEWSPAPER COPY EDITOR [address] [address] Referral ID Status Reason Start Date Expiration Date Visits Re quested Visits Authorized [id number] Closed 12/10/2021 03/10/2022 1 1 Reason Comments Fall Onset 0600. Pt repor ts she has spasm from a previous neck issue that causes her to fall at time. 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) Procedures LIVER Tony Wallace MD [address] [facility] [place] [address] Referral ID Status Reason Start Date Expiration Date Visits Re quested Visits Authorized [id number] Open 12/05/2021 12/05/2022 1 1 Specialty Diagnoses / Procedures Referred By Contac t Referred To Contact Radiology Diagnoses Other screening mammogram Procedures VIRGIE VONDA DIGITAL SCREEN BILATERAL Justyna Valderrama APRN - CNP [address] [place] [address] Referral ID Status Reason Start Date Expiration Date Visits Re quested Visits Authorized Closed 12/10/2021 12/10/2022 1 1 Specialty Diagnoses / Procedures Referred By Contac t Referred To Contact Diagnoses ALAN (obstructive sleep apnea) G47.33 (ICD-10-CM) - ALAN (obstructive sleep apnea) Procedures Pulse oximetry, overnight LA BREATHING CAPACITY TEST EVAL BRONCHOSPASM EVAL AFTER BRONCHODIALTOR [id number] - LA BREATHING CAPACITY TEST EVAL BRONCHOSPASM EVAL AFTER BRONCHODIALTOR Rosalio Michaels APRN - NEWSPAPER COPY EDITOR [address] [address] Referral ID Status Reason Start Date Expiration Date Visits Re quested Visits Authorized [id number] Open 12/09/2021 12/09/2022 1 1 Specialty Diagnoses / Procedures Referred By Fanyac t Referred To Contact Sleep Center Diagnoses ALAN (obstructive sleep apnea) G47.33 (ICD-10-CM) - ALAN (obstructive sleep apnea) Procedures Sleep Study with PAP Titration LA POLYSOM 6/>YRS SLEEP W/CPAP 4/> ADDL [facility] ATT[facility] [id number] - LA POLYSOM 6/>YRS SLEEP W/CPAP 4/> ADDL [facility] ATT[facility] Rosalio Michaels APRN - NEWSPAPER COPY EDITOR [address] [address] Referral ID Status Reason Start Date Expiration Date Visits Re quested Visits Authorized [id number] Closed 01/01/2022 01/01/2023 1 1 Reason Comments Diabetes Specialty Diagnoses / Procedures Referred By Saud t Referred To Contact Diabetes Services Diagnoses Type 2 diabetes mellitus without complication, with long-term current use of insulin (HCC) Justyna Valderrama APRN - CNP [address] [place] [address] [facility] Diabetic Education [address] [place] [address] Referral ID Status Reason Start Date Expiration Date V isits Requested Visits Authorized [id number] Open Specialty Services Required 01/30/2022 01/30/2023 1 1 Specialty Diagnoses / Procedures Referred By Contac t Referred To Contact Diagnoses Lumbar spondylosis LUMBAR SPONDYLOSIS Procedures LA RADIOFREQ NEUROTOMY LUMBAR OR SACRAL, W IMAGE GUIDE,EA ADDL LEVEL LA RADIOFREQUENCY NEUROTOMY LUMBAR OR SACRAL, W IMAGE GUIDANCE, SINGLE NERVE RADIOFREQUENCY ABLATION-L3,4,5 Darell Watts MD [address] [place] [address] [facility] [address] [place] [address] Referral ID Status Reason Start Date Expiration Date Visits Re quested Visits Authorized [id number] 1 1 Specialty Diagnoses / Procedures Referred By Contac t Referred To Contact Radiology Diagnoses Other cirrhosis of liver (HCC) [place] [address] [place] [address] [place] [address] Referral ID Status Reason Start Date Expiration Date Visits Re quested Visits Authorized [id number] Open 04/14/2022 04/14/2023 1 1 Reason Comments [facility] the [facility]. Pt denies any pain. States feels off and unable to do things properly. Also complaint of right hand shaking. Specialty Diagnoses / Procedures Referred By Contac t Referred To Contact Diagnoses Hepatic encephalopathy Hypomagnesemia Hyperammonemia (HCC) UTI (urinary tract infection) Septicemia (HCC) Acute pyelonephritis Miroslava Victor MD [address] [facility], [place] [address] [facility] [address] [place] [address] Referral ID Status Reason Start Date Expiration Date Visits Re quested Visits Authorized [id number] 1 1 Reason Comments Fall Pt had reported fall at home in kitchen, pt c/o lower back pain, denies LOC/head/neck pain, pt denies any blood thinners, pt arrives immobilized and in c-collar Reason Comments Fall Back Pain Specialty Diagnoses / Procedures Referred By Saud t Referred To Contact Diagnoses Fall from standing, initial encounter Compression fracture of L3 lumbar vertebra, closed, initial encounter ([facility]) Closed compression fracture of L3 vertebra, initial encounter ([facility]) Aristeo Ramos, DO [address] [address] [facility] [address] [place] [address] Referral ID Status Reason Start Date Expiration Date Visits Re quested Visits Authorized [id number] 1 1 Reason Comments Altered Mental Status From [place]. Increased confusion worsening today. Son states takes lactulose daily, but hasn't been compliant with medication. Specialty Diagnoses / Procedures Referred By Saud vizcaino Referred To Contact Diagnoses Dehydration Acute kidney injury (HCC) Acute cystitis without hematuria Libby Crespo MD [address] [facility] [place] [address] [facility] [address] [place] [address] Referral ID Status Reason Start Date Expiration Date Visits Re quested Visits Authorized [id number] 1 1 Reason Comments Other Pt had labs drown to day. Magnesium was low (1.3 mg/dL) Reason Comments Fall C-1 and C-2 sublicat ion, fall at [facility] Specialty Diagnoses / Procedures Referred By Saud vizcaino Referred To Contact Diagnoses UTI (urinary tract infection) Encephalopathy Acute cystitis without hematuria Fall, initial encounter [facility] [address] [place] [address] [facility] [address] [place] [address] Referral ID Status Reason Start Date Expiration Date Visits Re quested Visits Authorized [id number] 1 1 Reason Comments Back Pain Lower, recent dx of UTIAmbulates at facility with walkerPt reports multiple falls the last week Medical History (unrecognize d section and content) Includes: Medical History in patient's chartNo Medical History Recorded Evaluations & Outcomes (unre cognized section and content) Includes: Evaluations & Outcomes for active GoalsNo Outcomes Recorded Ordered Prescriptions (unrec ognized section and content) Prescription Sig Dispensed Refills Start Date End Da te cephALEXin (KEFLEX) 500 MG capsule Take 1 capsule by mouth 3 times daily for 7 days 21 capsule 0 02/11/2021 02/18/2021 Prescription Sig Dispensed Refills Start Date End Da te mupirocin (BACTROBAN) 2 % ointment Apply a small amount to each nostril twice daily for at least 2 weeks and then as needed 22 g 0 12/27/2021 12/27/2021 oxymetazoline (12 HOUR NASAL SPRAY) 0.05 % nasal spray Use as directed for recurrent nosebleeds. 15 mL 3 12/27/2021 12/27/2021 Prescription Sig Dispensed Refills Start Date End Da te lactulose (CHRONULAC) 10 GM/15ML solution Take 45 mLs by mouth 2 times daily 473 mL 1 09/11/2022 lactulose (CHRONULAC) 10 GM/15ML solution Take 45 mLs by mouth 2 times daily 1 09/11/2022 09/11/2022 Prescription Sig Dispensed Refills Start Date End Da te oxyCODONE (ROXICODONE) 5 MG immediate release tabletIndications:Close d compression fracture of L3 vertebra, initial encounter ([facility]) Take 1 tablet by mouth every 8 hours as needed for Pain for up to 7 days. Max Daily Amount: 15 mg 21 tablet 0 10/17/2022 10/24/2022 fluticasone (FLONASE) 50 MCG/ACT nasal spray 2 sprays by Each Nostril route daily as needed for Allergies 0 10/13/2022 oxyCODONE (ROXICODONE) 5 MG immediate release tabletIndications:Close d compression fracture of L3 vertebra, initial encounter ([facility]) Take 1 tablet by mouth every 8 hours as needed for Pain for up to 7 days. Max Daily Amount: 15 mg 0 10/15/2022 10/17/2022 Prescription Sig Dispensed Refills Start Date End Da te cephALEXin (KEFLEX) 500 MG capsule Take 1 capsule by mouth in the morning, at noon, and at bedtime for 14 doses 14 capsule 0 11/25/2022 11/30/2022 spironolactone (ALDACTONE) 25 MG tabletIndications:Cirrho sis of liver without ascites, unspecified hepatic cirrhosis type (HCC) Take 1 tablet by mouth daily 30 tablet 0 11/25/2022 traZODone (DESYREL) 100 MG tablet Take 1 tablet by mouth nightly as needed for Sleep 30 tablet 0 11/25/2022 magnesium oxide (MAG-OX) 400 (240 Mg) MG tablet Take 1 tablet by mouth 2 times daily 60 tablet 0 11/25/2022 furosemide (LASIX) 20 MG tabletIndications:Cirrho sis of liver without ascites, unspecified hepatic cirrhosis type (HCC) Take 1 tablet by mouth daily 30 tablet 0 11/25/2022 FLUoxetine (PROZAC) 40 MG capsuleIndications:Bipol ar disorder with depression (HCC) Take 1 capsule by mouth daily 30 capsule 0 11/25/2022 02/23/2023 Prescription Sig Dispensed Refills Start Date End Da te Magnesium Oxide 400 MG CAPS Take 400 mg by mouth daily for 10 days 10 capsule 0 11/29/2022 12/09/2022 Prescription Sig Dispensed Refills Start Date End Da te HYDROcodone-acetaminophe n (NORCO) 5-325 MG per tabletIndications:E. coli UTI Take 1 tablet by mouth every 8 hours as needed for Pain for up to 3 days. Max Daily Amount: 3 tablets 10 tablet 0 01/16/2023 01/19/2023 traZODone (DESYREL) 100 MG tablet Take 1 tablet by mouth nightly as needed for Sleep 5 tablet 0 01/16/2023 01/21/2023 cephALEXin (KEFLEX) 500 MG capsule Take 1 capsule by mouth 4 times daily for 24 doses 24 capsule 0 01/14/2023 01/20/2023 Scheduled Active and Recently Administ ered Medications (unrecognized section and content) Medication Order 02/09/2021 02/10/2021 02/11/2021 atenolol (TENORMIN) tablet 25 mg 25 mg, Oral, DAILY, First dose on Thu02/08/21 at 1000 0716 (Given - Provider: Radha Mosquera) 0741 (Given - Provider: Radha Mosquera) 0841 (Given - Provider: Kristel Riggins RN) atorvastatin (LIPITOR) tablet 80 mg 80 mg, Oral, NIGHTLY, First dose on Thu02/08/21 at 2100 2003 (Given - Provider: Pamela Boone RN) 2111 (Given - Provider: Tulio Sarmiento, EMELY) 2099 (Due) baclofen (LIORESAL) tablet 10 mg 10 mg, Oral, 3 TIMES DAILY, First dose on Thu02/08/21 at 1000 0716 (Given - Provider: Radha Mosquera)1345 (Given - Provider: Radha Mosquera)2003 (Given - Provider: Pamela Boone RN) 0742 (Given - Provider: Radha Mosquera)1331 (Given - Provider: Radha Mosquera)2111 (Given - Provider: Tuloi Sarmineto RN) 0841 (Given - Provider: Kristel Riggins, EMELY)1400 (Due)2099 (Due) cetirizine (ZYRTEC) tablet 10 mg 10 mg, Oral, DAILY, First dose on Thu02/08/21 at 1000, Substituted for Fexofenadine (KADE). 0716 (Given - Provider: Radha Mosquera) 0742 (Given - Provider: Radha Mosquera) 0841 (Given - Provider: Kristel Riggins, EMELY) divalproex (DEPAKOTE ER) extended release tablet 750 mg 750 mg, Oral, NIGHTLY, First dose on Thu02/08/21 at 2100, Do not crush or break. 2003 (Given - Provider: Pamela Boone RN) 2111 (Given - Provider: Tulio Sarmiento RN) 2099 (Due) enoxaparin (LOVENOX) injection 40 mg 40 mg, Subcutaneous, DAILY, First dose on Thu02/08/21 at 0900 0843 (Given - Provider: Radha Mosquera) 0744 (Given - Provider: aRdha Mosquera) 0841 (Given - Provider: Kristel Riggins, EMELY) ferrous sulfate (IRON 325) tablet 325 mg 325 mg, Oral, EVERY 48 HOURS, First dose on Thu02/08/21 at 1000 1052 (Given - Provider: Radha Mosquera) FLUoxetine (PROZAC) capsule 60 mg 60 mg, Oral, DAILY, First dose on Thu02/08/21 at 1000 0716 (Given - Provider: Radha Mosquera) 0741 (Given - Provider: Radha Mosquera) 0840 (Given - Provider: Kristel Riggins RN) fluticasone (FLONASE) 50 MCG/ACT nasal spray 2 spray 2 spray, Each Nostril, DAILY, First dose on Thu02/08/21 at 1000 0843 (Given - Provider: Radha Mosquera) 0743 (Given - Provider: Radha Mosquera) 0848 (Given - Provider: Kristel Riggins, RN) gabapentin (NEURONTIN) capsule 100 mg 100 mg, Oral, 3 TIMES DAILY, First dose on Thu02/08/21 at 1000 0716 (Given - Provider: Radha Mosquera)1345 (Given - Provider: Radha Mosquera)2003 (Given - Provider: Pamela Boone, EMELY) 0742 (Given - Provider: Radha Mosquera)1332 (Given - Provider: Radha Mosquera)211 (Given - Provider: Tulio Sarmiento, EMELY) 0840 (Given - Provider: Kristel Riggins, EMELY)1400 (Due)2100 (Due) insulin glargine (LANTUS) injection vial 20 Units 20 Units, Subcutaneous, 2 TIMES DAILY, First dose on Thu02/08/21 at 1000 0716 (Given - Provider: Radha Mosquera)2004 (Given - Provider: Pamela Boone RN - Comment: BS 177) 0742 (Given - Provider: Radha Mosquera)211 (Given - Provider: Tulio Sarmiento, EMELY) 0841 (Given - Provider: Kristel Riggins, EMELY)2100 (Due) insulin lispro (HUMALOG) injection vial 0-12 Units 0-12 Units, Subcutaneous, 3 TIMES DAILY WITH MEALS, First dose on Thu02/08/21 at 0800, Medium Dose Corrective Algorithm Glucose: Dose: If <139 No Insulin 140-199 2 Units 200-249 4 Units 250-299 6 Units 300-349 8 Units 350-400 10 Units Above 400 12 Units 0715 (Not Given - Provider: Radha Mosquera - Reason: Order parameters not met)1220 (Given - Provider: Radha Mosquera)1707 (Given - Provider: Radha Mosquera) 0743 (Given - Provider: Radha Mosquera)1121 (Not Given - Provider: Radha Mosquera - Reason: Order parameters not met)1640 (Given - Provider: Radha Mosquera) 0719 (Not Given - Provider: Kristel Riggins RN - Reason: Order parameters not met - Comment: [phone] (Not Given - Provider: Kristel Riggins RN - Reason: Order parameters not met - Comment: 115)1700 (Due) insulin lispro (HUMALOG) injection vial 0-6 Units 0-6 Units, Subcutaneous, NIGHTLY, First dose on Thu02/08/21 at 0115, If continuous tube feedings/TPN/NPO, give correction dose based on result, no reduction in dose. If eating or bolus tube feeding: Medium Dose Corrective Algorithm Glucose: Dose: If <139 No Insulin 140-199 1 Unit 200-249 2 Units 250-299 3 Units 300-349 4 Units 350-400 5 Units Above 400 6 Units 2005 (Given - Provider: Pamela Boone RN - Comment: BS 177) 2115 (Not Given - Provider: Tulio Sarmiento RN - Reason: Order parameters not met - Comment: BS 135) 2100 (Due) lisinopril (PRINIVIL;ZESTRIL) tablet 5 mg 5 mg, Oral, DAILY, First dose on Thu02/08/21 at 1000 0716 (Given - Provider: Radha Mosquera) 0741 (Given - Provider: Radha Mosquera) 0840 (Given - Provider: Kristel Riggins RN) meropenem (MERREM) 1,000 mg in sterile water 20 mL IV syringe 1,000 mg, Intravenous, at 40 mL/hr, Administer over 30 Minutes, EVERY 8 HOURS, First dose on Thu02/08/21 at 0300, Administer over 5 mins. Reconstitute 1g vial with 20mL Sterile Water. 0337 (Given - Provider: Pamela Boone RN)0342 (Stop Time - Provider: Pamela Boone RN)0424 (Canceled Entry - Provider: Pamela Boone RN)1219 (Given - Provider: Radha Mosquera)1235 (Stop Time - Provider: Radha Mosquera)1236 (Stop Time - Provider: Radha Mosquera)1906 (Given - Provider: Pamela Boone RN)1911 (Stop Time - Provider: Pamela Boone RN)2000 (Canceled Entry - Provider: Pamela Boone RN) 0310 (Given - Provider: Pamela Boone RN)0315 (Stop Time - Provider: Pamela Boone RN)0321 (Canceled Entry - Provider: Pamela Boone RN)1009 (Canceled Entry - Provider: Radha Mosquera)1126 (Given - Provider: Radha Mosquera)1133 (Stop Time - Provider: Radha Mosquera)1141 (Canceled Entry - Provider: Radha Mosquera)2110 (Given - Provider: Tulio Sarmiento RN)214 (Not Given - Provider: Tulio Sarmiento RN - Reason: Other - Comment: duplicate)215 (Stop Time - Provider: Tulio Sarmiento RN) 0324 (Given - Provider: Tulio Sarmiento RN)0330 (Not Given - Provider: Tulio Sarmiento RN - Reason: Other)1136 (Not Given - Provider: Kristel Riggins RN - Reason: Loss of IV access - Comment: pt to be dc)1900 (Due) metFORMIN (GLUCOPHAGE) tablet 1,000 mg 1,000 mg, Oral, 2 TIMES DAILY WITH MEALS, First dose on Thu02/08/21 at 1000 0714 (Given - Provider: Radha Mosquera)1706 (Given - Provider: Radha Mosquera) 0741 (Given - Provider: Radha Mosquera)1640 (Given - Provider: Radha Mosquera) 0840 (Given - Provider: Kristel Riggins RN)1700 (Due) oxybutynin (DITROPAN-XL) extended release tablet 10 mg 10 mg, Oral, DAILY, First dose on Thu02/08/21 at 1000, Do not crush or break. 0716 (Given - Provider: Radha Mosquera) 0803 (Given - Provider: Radha Mosquera) 0840 (Given - Provider: Kristel Riggins RN) pantoprazole (PROTONIX) tablet 40 mg 40 mg, Oral, DAILY BEFORE BREAKFAST, First dose on Thu02/09/21 at 0700, Do not crush or break. Substituted for Omeprazole (PRILOSEC). 0716 (Given - Provider: Radha Mosquera) 0741 (Given - Provider: Radha Mosquera) 0718 (Given - Provider: Kristel Riggins RN) prednisoLONE acetate (PRED FORTE) 1 % ophthalmic suspension 1 drop 1 drop, Both Eyes, EVERY 6 HOURS SCHEDULED (4 times per day), First dose on Thu02/08/21 at 1200 0518 (Given - Provider: Pamela Boone RN)1220 (Given - Provider: Radha Mosquera)1707 (Given - Provider: Radha Mosquera)2319 (Given - Provider: Pamela Boone RN) 0505 (Given - Provider: Pamela Boone RN)1126 (Given - Provider: Radha Mosquera)164 (Given - Provider: Radha Mosquera)213 (Given - Provider: Tulio Sarmiento RN - Comment: patient requested now) 0718 (Given - Provider: Kristel Riggins, EMELY)1137 (Not Given - Provider: Kristel Riggins RN - Reason: Patient/family refused - Comment: pt to be dc, will take at home)1800 (Due) sodium chloride flush 0.9 % injection 5-40 mL 5-40 mL, Intravenous, EVERY 12 HOURS SCHEDULED (2 times per day), First dose on Thu02/08/21 at 0900, For Line Patency: Peripheral IV = 5 mL; Midline or Central Line = 10 mL/lumen. If following IV push medication, administer flush at same rate as the IV push. Flush volume is determined by type of infusion therapy being given. For non-viscous solutions use: Peripheral IV = 5 mL Midline or Central Line = 10 mL/lumen For viscous solutions (i.e. blood components, parenteral nutrition, contrast media, or after obtaining blood sample) use: Peripheral IV = 10 mL Midline or Central Line = 20 mL/lumen 0843 (Not Given - Provider: Radha Mosquera - Reason: IV Fluid Infusing)1958 (Not Given - Provider: Pamela Boone RN - Reason: IV Fluid Infusing) 823 (Not Given - Provider: Radha Mosquera - Reason: IV Fluid Infusing)2114 (Given - Provider: Tulio Sarmiento RN) 08 (Given - Provider: Kristel Riggins RN)2099 (Due) traZODone (DESYREL) tablet 50 mg 50 mg, Oral, NIGHTLY, First dose on Thu02/08/21 at 2100 2003 (Given - Provider: Pamela Boone RN) 2111 (Given - Provider: Tulio Sarmiento RN) 2099 (Due) vitamin D (CHOLECALCIFEROL) tablet 1,000 Units 1,000 Units, Oral, 2 TIMES DAILY, First dose on Thu02/08/21 at 1000 0716 (Given - Provider: Radha Mosquera)2003 (Given - Provider: Pamela Boone RN) 0742 (Given - Provider: Radha Mosquera)2111 (Given - Provider: Tulio Sarmiento RN) 0840 (Given - Provider: Kristel Riggins, EMELY)1999 (Due) Continuous Medication Order 02/09/2021 02/10/2021 02/11/2021 0.9 % sodium chloride infusion (CANCELED) Intravenous, at 75 mL/hr, CONTINUOUS, Starting on Thu02/08/21 at 0115 0703 (New Bag - Provider: Tracey Quinn RN)2002 (New Bag - Provider: Pamela Boone RN) 0658 (Stopped - Provider: Radha Mosquera) PRN Medication Order 02/09/2021 02/10/2021 02/11/2021 0.9 % sodium chloride infusion 25 mL, Intravenous, at 100 mL/hr, PRN, If patient receiving piggyback infusions without ordered maintenance IV fluids or with frequent/long duration piggyback infusions, Starting on Thu02/08/21 at 0045, Administer at the same rate as the piggyback being infused. acetaminophen (TYLENOL) suppository 650 mg(Linked Group 1) 650 mg, Rectal, EVERY 6 HOURS PRN, Pain Mild (1-3), Fever, For temp greater than 100.4 F (38 C), Starting on Thu02/08/21 at 0045, Administer if oral route cannot be used. 0714 (See Alternative - Provider: Radha Mosquera)1438 (See Alternative - Provider: Radha Mosquera)2319 (See Alternative - Provider: Pamela Boone RN) 1846 (See Alternative - Provider: Tulio Sarmiento RN) 0134 (See Alternative - Provider: Tulio Sarmiento RN)0718 (See Alternative - Provider: Kristel Riggins, EMELY) acetaminophen (TYLENOL) tablet 650 mg(Linked Group 1) 650 mg, Oral, EVERY 6 HOURS PRN, Pain Mild (1-3), Fever, For temp greater than 100.4 F (38 C), Starting on Thu02/08/21 at 0045, Maximum dose of acetaminophen is 4000 mg from all sources in 24 hours. 0714 (Given - Provider: Radha Mosquera)1438 (Given - Provider: Radha Mosquera)2319 (Given - Provider: Pamela Boone RN) 1846 (Given - Provider: Tulio Sarmiento RN) 0134 (Given - Provider: Tulio Sarmiento RN)0718 (Given - Provider: Kristel Riggins RN) dextrose 5 % solution 100 mL/hr, Intravenous, at 100 mL/hr, PRN, Low blood sugar, Starting on Thu02/08/21 at 0929, Start infusion following administration of dextrose 50% or glucagon. dextrose 50 % IV solution 12.5 g, Intravenous, PRN, Low blood sugar, Blood glucose less than 70 mg/dL and patient NOT ALERT or NPO., Starting on Thu02/08/21 at 0929, If patient does not respond within 5 minutes, repeat dose x1. Start D5W at 100 mL/hour until ordering provider can be reached. Repeat blood glucose in 15 minutes. If blood glucose is less than 70 mg/dL, repeat treatment and recheck blood glucose in 15 minutes x2. If using Glucostabilizer, dose as instructed per system. diphenhydrAMINE (BENADRYL) injection 25 mg 25 mg, Intravenous, EVERY 6 HOURS PRN, Itching, Starting on Thu02/08/21 at 0232, Give prior to Meropenem IV dose 0302 (Given - Provider: Pamela Boone RN)1136 (Given - Provider: Radha Mosquera)1829 (Given - Provider: Pamela Boone RN) 0230 (Given - Provider: Pamela Boone RN)1052 (Given - Provider: Radha Mosquera)202 (Given - Provider: Tulio Sarmiento RN) 0314 (Given - Provider: Tulio Sarmiento RN) glucagon (rDNA) injection 1 mg 1 mg, Intramuscular, PRN, Low blood sugar, Blood glucose less than 70 mg/dL and patient NOT ALERT or NPO and does not have IV access., Starting on Thu02/08/21 at 0929, After administration, attempt intravenous access and start D5W at 100 mL/hr. Repeat blood glucose in 15 minutes x2 and notify provider. glucose (GLUTOSE) 40 % oral gel 15 g 15 g, Oral, PRN, Low blood sugar, Starting on Thu02/08/21 at 0929, If blood glucose less than 50 mg/dL and patient ALERT and TOLERATING PO, give 2 tubes glucose gel. If blood glucose less than 70 mg/dL and patient ALERT and TOLERATING PO, give 1 tube glucose gel. Repeat blood glucose in 15 minutes. If blood glucose is less than 70 mg/dL, repeat treatment and recheck blood glucose in 15 minutes x2 and notify provider. LORazepam (ATIVAN) injection 1 mg 1 mg, Intravenous, EVERY 6 HOURS PRN, Sleep, Agitation, Other, restlessness, Starting on Thu02/08/21 at 0053 0412 (Given - Provider: Tulio Sarmiento RN) ondansetron (ZOFRAN) injection 4 mg(Linked Group 2) 4 mg, Intravenous, EVERY 6 HOURS PRN, Nausea, Vomiting, Starting on Thu02/08/21 at 0045, Administer if oral route cannot be used. ondansetron (ZOFRAN-ODT) disintegrating tablet 4 mg(Linked Group 2) 4 mg, Oral, EVERY 8 HOURS PRN, Nausea, Vomiting, Starting on Thu02/08/21 at 0045 polyethylene glycol (GLYCOLAX) packet 17 g 17 g, Oral, DAILY PRN, Constipation, Starting on Thu02/08/21 at 0045, First line therapy for constipation polyvinyl alcohol (LIQUIFILM TEARS) 1.4 % ophthalmic solution 1 drop 1 drop, Both Eyes, EVERY 6 HOURS PRN, Dry Eyes, Starting on Thu02/08/21 at 0928, Substituted for cycloSPORINE (RESTASIS). Linked Groups Order Group 1: acetaminophen (TYLENOL) tablet 650 mgJump to med 650 mg, Oral, EVERY 6 HOURS PRN, Pain Mild (1-3), Fever, For temp greater than 100.4 F (38 C), Starting on Thu02/08/21 at 0045
Maximum dose of acetaminophen is 4000 mg from all sources in 24 hours.
Or acetaminophen (TYLENOL) suppository 650 mgJump to med 650 mg, Rectal, EVERY 6 HOURS PRN, Pain Mild (1-3), Fever, For temp greater than 100.4 F (38 C), Starting on Thu02/08/21 at 0045
Administer if oral route cannot be used.
Group 2: ondansetron (ZOFRAN-ODT) disintegrating tablet 4 mgJump to med 4 mg, Oral, EVERY 8 HOURS PRN, Nausea, Vomiting, Starting on Thu02/08/21 at 0045 Or ondansetron (ZOFRAN) injection 4 mgJump to med 4 mg, Intravenous, EVERY 6 HOURS PRN, Nausea, Vomiting, Starting on Thu02/08/21 at 0045
Administer if oral route cannot be used.
Scheduled Medication Order 08/13/2021 08/14/2021 08/15/2021 diphenhydrAMINE (BENADRYL) injection 25 mg (COMPLETED) 25 mg, IntraVENous, ONCE, On Thu08/14/21 at 0815, For 1 dose 906 (Given - Provider: Yessica Franz RN) diphenhydrAMINE (BENADRYL) injection 50 mg (COMPLETED) 50 mg, IntraVENous, ONCE, On Thu08/14/21 at 2200, For 1 dose 2157 (Given - Provider: Jen Cerda RN) haloperidol lactate (HALDOL) injection 5 mg (COMPLETED) 5 mg, IntraVENous, ONCE, On Thu08/14/21 at 2100, For 1 dose, IM route of administration preferred. Because of the risk of TdP and QT prolongation, ECG monitoring is recommended if haloperidol is given IV. 2103 (Given - Provider: Jen Cerda RN) lactated ringers infusion 1,000 mL (COMPLETED) 1,000 mL, IntraVENous, at 1,000 mL/hr, ONCE, On Thu08/14/21 at 0815, For 1 dose 0905 (New Bag - Provider: Yessica Franz RN)1005 (Stopped - Provider: Yessica Franz RN) LORazepam (ATIVAN) injection 1 mg (COMPLETED) 1 mg, IntraVENous, ONCE, On Thu08/14/21 at 2200, For 1 dose 2158 (Given - Provider: Jen Cerda RN) LORazepam (ATIVAN) injection 1 mg (COMPLETED) 1 mg, IntraVENous, ONCE, On Delfina 08/15/21 at 0930, For 1 dose 0933 (Given - Provid er: Yessica Franz RN) methylPREDNISolone sodium (SOLU-MEDROL) injection 125 mg (COMPLETED) 125 mg, IntraVENous, ONCE, On Thu08/14/21 at 0815, For 1 dose 0907 (Given - Provider: Yessica Franz RN) PRN Medication Order 08/13/2021 08/14/2021 08/15/2021 iopamidol (ISOVUE-370) 76 % injection 75 mL (COMPLETED) 75 mL, IntraVENous, IMG ONCE PRN, Other, Starting on Thu08/14/21 at 0927, For 1 dose 0928 (Given - Provider: Tanisha Jesus) Scheduled Medication Order 11/24/2021 11/25/2021 11/26/2021 sodium chloride flush 0.9 % injection 5-40 mL 5-40 mL, IntraVENous, EVERY 12 HOURS SCHEDULED (2 times per day), First dose on Thu11/26/21 at 2100, Until Discontinued, For Line Patency: Peripheral IV = 5 mL; Midline or Central Line = 10 mL/lumen. If following IV push medication, administer flush at same rate as the IV push. Flush volume is determined by type of infusion therapy being given. For non-viscous solutions use: Peripheral IV = 5 mL Midline or Central Line = 10 mL/lumen For viscous solutions (i.e. blood components, parenteral nutrition, contrast media, or after obtaining blood sample) use: Peripheral IV = 10 mL Midline or Central Line = 20 mL/lumen, Pre-op (day of surgery) 2100 (Due) Continuous Medication Order 11/24/2021 11/25/2021 11/26/2021 lactated ringers infusion IntraVENous, at 50 mL/hr, CONTINUOUS, Starting on Thu11/26/21 at 1330, Pre-op (day of surgery) 1311 (New Bag - Prov ider: Emilee Biggs RN)1423 (Stopped - Provider: Idalmis Preston RN) PRN Medication Order 11/24/2021 11/25/2021 11/26/2021 0.9 % sodium chloride infusion 25 mL, IntraVENous, at 100 mL/hr, PRN, If patient receiving piggyback infusions without ordered maintenance IV fluids or with frequent/long duration piggyback infusions, Starting on Thu11/26/21 at 1311, Administer at the same rate as the piggyback being infused., Pre-op (day of surgery) bupivacaine (PF) (MARCAINE) 0.5 % injection (CANCELED) PRN, Starting on Thu11/26/21 at 1346, Until Discontinued, Intra-op 1346 (Given - Provid er: Darell Watts MD) lidocaine PF 1 % injection (CANCELED) PRN, Starting on Thu11/26/21 at 1346, Until Discontinued, Intra-op 134 (Given - Provid er: Darell Wtats MD) methylPREDNISolone acetate (DEPO-MEDROL) injection (CANCELED) PRN, Starting on Thu11/26/21 at 1346, Until Discontinued, Intra-op 134 (Given - Provid er: Darell Watts MD) midazolam (VERSED) injection (CANCELED) PRN, Starting on Thu11/26/21 at 1345, Until Discontinued, Intra-op 1345 (Given - Provid er: Ayah Montano RN) sodium chloride flush 0.9 % injection 5-40 mL 5-40 mL, IntraVENous, PRN, Starting on Thu11/26/21 at 1311, Until Discontinued, Line Care, For Line Patency: Peripheral IV = 5 mL; Midline or Central Line = 10 mL/lumen. If following IV push medication, administer flush at same rate as the IV push. Flush volume is determined by type of infusion therapy being given. For non-viscous solutions use: Peripheral IV = 5 mL Midline or Central Line = 10 mL/lumen For viscous solutions (i.e. blood components, parenteral nutrition, contrast media, or after obtaining blood sample) use: Peripheral IV = 10 mL Midline or Central Line = 20 mL/lumen, Pre-op (day of surgery) Scheduled Medication Order 12/25/2021 12/26/2021 12/27/2021 acetaminophen (TYLENOL) tablet 650 mg (COMPLETED) 650 mg, Oral, ONCE, 1 dose, On Thu12/27/21 at 1430, Maximum dose of acetaminophen is 4000 mg from all sources in 24 hours. 1451 (Given - Provid er: Pasquale Scales RN) PRN Medication Order 01/19/2022 01/20/2022 01/21/2022 bupivacaine (PF) (MARCAINE) 0.5 % injection (CANCELED) PRN, Starting on Thu01/21/22 at 1502, Until Thu01/21/22 at 1510, Intra-op 1502 (Given - Provid er: Darell Watts MD) lidocaine PF 1 % injection (CANCELED) PRN, Starting on Thu01/21/22 at 1501, Until Thu01/21/22 at 1510, Intra-op 1501 (Given - Provid er: Darell Watts MD) methylPREDNISolone acetate (DEPO-MEDROL) injection (CANCELED) PRN, Starting on Thu01/21/22 at 1502, Until Thu01/21/22 at 1510, Intra-op 1502 (Given - Provid er: Darell Watts MD) Scheduled Medication Order 03/16/2022 03/17/2022 03/18/2022 sodium chloride flush 0.9 % injection 5-40 mL 5-40 mL, IntraVENous, EVERY 12 HOURS SCHEDULED (2 times per day), First dose on Thu03/18/22 at 2100, Until Discontinued, For Line Patency: Peripheral IV = 5 mL; Midline or Central Line = 10 mL/lumen. If following IV push medication, administer flush at same rate as the IV push. Flush volume is determined by type of infusion therapy being given. For non-viscous solutions use: Peripheral IV = 5 mL Midline or Central Line = 10 mL/lumen For viscous solutions (i.e. blood components, parenteral nutrition, contrast media, or after obtaining blood sample) use: Peripheral IV = 10 mL Midline or Central Line = 20 mL/lumen, Pre-op (day of surgery) 2100 (Due) Continuous Medication Order 03/16/2022 03/17/2022 03/18/2022 lactated ringers infusion IntraVENous, at 50 mL/hr, CONTINUOUS, Starting on Thu03/18/22 at 1545, Pre-op (day of surgery) 1545 (New Bag - Prov ider: Emilee Biggs RN)1745 (Stopped - Provider: Karen Diego RN) PRN Medication Order 03/16/2022 03/17/2022 03/18/2022 0.9 % sodium chloride infusion IntraVENous, at 5-250 mL/hr, PRN, if patient receiving piggyback infusions and maintenance fluids are not ordered OR KVO fluids to protect IV site / prevent frequent line interruptions/ long duration, Starting on Thu03/18/22 at 1525, For piggyback infusion, administer at same rate as piggyback for a total of 25 mL. Enter 25 mL into dose field and piggyback rate into rate field of order. If piggyback is infusing at a rate less than 100 mL/hr, enter 25 mL into dose field and 100 mL/hr into rate field of order. For KVO fluids, enter rate of 20 mL/hr or less into rate field of order., Pre-op (day of surgery) bupivacaine (PF) (MARCAINE) 0.5 % injection (CANCELED) PRN, Starting on Thu03/18/22 at 1704, Until Thu03/18/22 at 1720, Intra-op 1704 (Given - Provid er: Darell Watts MD) lidocaine PF 1 % injection (CANCELED) PRN, Starting on Thu03/18/22 at 1705, Until Tu03/18/22 at 1720, Intra-op 1705 (Given - Provid er: Darell Watts MD) methylPREDNISolone acetate (DEPO-MEDROL) injection (CANCELED) PRN, Starting on Thu03/18/22 at 1705, Until Tu03/18/22 at 1720, Intra-op 1705 (Given - Provid er: Darell Watts MD) midazolam (VERSED) injection (CANCELED) PRN, Starting on Thu03/18/22 at 1700, Until Thu03/18/22 at 1720, Intra-op 1700 (Given - Provid er: Ayah Montano RN) sodium chloride flush 0.9 % injection 5-40 mL 5-40 mL, IntraVENous, PRN, Starting on Thu03/18/22 at 1525, Until Discontinued, Line Care, After every IV line use, For Line Patency: Peripheral IV = 5 mL; Midline or Central Line = 10 mL/lumen. If following IV push medication, administer flush at same rate as the IV push. Flush volume is determined by type of infusion therapy being given. For non-viscous solutions use: Peripheral IV = 5 mL Midline or Central Line = 10 mL/lumen For viscous solutions (i.e. blood components, parenteral nutrition, contrast media, or after obtaining blood sample) use: Peripheral IV = 10 mL Midline or Central Line = 20 mL/lumen, Pre-op (day of surgery) Scheduled Medication Order 2022 09/10/2022 09/11/2022 allopurinol (ZYLOPRIM) tablet 150 mg 150 mg, Oral, DAILY, First dose on 09/07/22 at 0900, Until Discontinued 09 (Given - Provider: Shani Hernadez RN) 09 (Given - Provider: Shani Hernadez RN) 0928 (Given - Provider: Alena Self RN) atenolol (TENORMIN) tablet 50 mg 50 mg, Oral, DAILY, First dose on 09/07/22 at 0900, Until Discontinued 09 (Held - Provider: Shani Hernadez RN - Reason: Contraindicated) 925 (Given - Provider: Shnai Hernadez RN) 0932 (Given - Provider: Alena Self RN) atorvastatin (LIPITOR) tablet 80 mg 80 mg, Oral, DAILY, First dose on 09/07/22 at 0900, Until Discontinued 909 (Given - Provider: Shani Hernadez RN) 925 (Given - Provider: Shani Hernadez RN) 0930 (Given - Provider: Alena Self RN) cefTRIAXone (ROCEPHIN) 1,000 mg in dextrose 5 % 50 mL IVPB mini-bag 1,000 mg, IntraVENous, EVERY 24 HOURS, 5 doses, First dose (after last reorder) on Thu09/09/22 at 2100, Last dose on Thu09/13/22 at 2100, Antimicrobial Indications: Urinary Tract Infection, UTI duration of therapy: 5 days 2152 (New Bag - Provider: Elvira Parnell RN)2222 (Stopped - Provider: Elvira Parnell RN) 2039 (New Bag - Provider: Loree Ghosh RN)2109 (Stopped - Provider: Loree Ghosh RN) 2100 (Due) cetirizine (ZYRTEC) tablet 5 mg 5 mg, Oral, DAILY, First dose on 09/07/22 at 0900, Until Discontinued, Substituted for Fexofenadine (KADE). 909 (Given - Provider: Shani Hernadez RN) 926 (Given - Provider: Shani Hernadez RN) 928 (Given - Provider: Alena Self RN) divalproex (DEPAKOTE ER) extended release tablet 750 mg 750 mg, Oral, DAILY, First dose on 09/07/22 at 0900, Until Discontinued, Do not crush or break. 909 (Given - Provider: Shani Hernadez RN) 926 (Given - Provider: Shani Hernadez RN) 927 (Given - Provider: Alena Self RN) enoxaparin Sodium (LOVENOX) injection 30 mg 30 mg, SubCUTAneous, DAILY, First dose on 09/07/22 at 0900, Until Discontinued, Indication of Use: Prophylaxis-DVT/PE 899 (Automatically Held - Provider: CELIA Gómez CNP) 899 (Automatically Held - Provider: CELIA Gómez CNP) 899 (Automatically Held - Provider: CELIA Gómez CNP) ferrous sulfate (IRON 325) tablet 325 mg 325 mg, Oral, EVERY 48 HOURS, First dose on 09/07/22 at 0130, Until Discontinued 909 (Given - Provider: Shani Hernadez RN) 928 (Given - Provider: Alena Self RN) FLUoxetine (PROZAC) capsule 40 mg 40 mg, Oral, DAILY, First dose on 09/07/22 at 0900, Until Discontinued 909 (Given - Provider: Shani Hernadez RN) 925 (Given - Provider: Shani Hernadez RN) 928 (Given - Provider: Alena Self RN) fluticasone (FLONASE) 50 MCG/ACT nasal spray 2 spray 2 spray, Each Nostril, DAILY, First dose on 09/07/22 at 0900, Until Discontinued 909 (Given - Provider: Shani Hernadez RN) 32 (Given - Provider: Shani Hernadez RN) 09 (Given - Provider: Alena Self RN) gabapentin (NEURONTIN) capsule 100 mg 100 mg, Oral, 2 times daily, First dose on 09/07/22 at 0130, Until Discontinued 909 (Given - Provider: Shani Hernadez RN)2153 (Given - Provider: Elvira Parnell RN) 926 (Given - Provider: Shani Hernadez RN)2029 (Given - Provider: Loree Ghosh RN) 928 (Given - Provider: Alena Self, RN)2099 (Due) insulin glargine (LANTUS) injection vial 10 Units 10 Units, SubCUTAneous, 2 TIMES DAILY, First dose (after last modification) on Thu09/10/22 at 0915, Until Discontinued, Therapeutic interchange for insuin detemir 24 (Given - Provider: Shani Hernadez RN)2028 (Given - Provider: Loree Ghosh RN) 929 (Given - Provider: Alena Self RN)2099 (Due) insulin glargine (LANTUS) injection vial 30 Units (CANCELED) 30 Units, SubCUTAneous, 2 TIMES DAILY, First dose on 09/07/22 at 0200, Until Discontinued, Therapeutic interchange for insuin detemir 09 (Given - Provider: Shani Hernadez RN)2202 (Given - Provider: Elvira Parnell RN) insulin lispro (HUMALOG) injection vial 0-4 Units 0-4 Units, SubCUTAneous, NIGHTLY, First dose on 09/07/22 at 0130, Until Discontinued 2038 (Not Given - Provider: Elvira Parnell RN - Reason: Patient/family refused) 2034 (Not Given - Provider: Loree Ghosh RN - Reason: Order parameters not met - Comment: bs 180) 2099 (Due) insulin lispro (HUMALOG) injection vial 0-8 Units 0-8 Units, SubCUTAneous, 3 TIMES DAILY WITH MEALS, First dose on 09/07/22 at 0800, Until Discontinued 730 (Not Given - Provider: Shani Hernadez RN - Reason: Order parameters not met)1208 (Not Given - Provider: Shani Hernadez RN - Reason: Order parameters not met)1709 (Not Given - Provider: Shani Hernadez RN - Reason: Order parameters not met) 0759 (Not Given - Provider: Shani Hernadez RN - Reason: Order parameters not met)1142 (Not Given - Provider: Shani Hernadez RN - Reason: Order parameters not met)1711 (Not Given - Provider: Shani Hernadez RN - Reason: Order parameters not met) 0933 (Not Given - Provider: Alena Self RN - Reason: Order parameters not met - Comment: fsbs 108)1307 (Not Given - Provider: Alena Self RN - Reason: Order parameters not met - Comment: FSBS 180)1618 (Not Given - Provider: Alena Self RN - Reason: Order parameters not met - Comment: FSBS 132) lactulose (CHRONULAC) 10 GM/15ML solution 30 g 30 g, Oral, 2 TIMES DAILY, First dose on 09/07/22 at 0130, Until Discontinued 09 (Given - Provider: Shani Hernadez RN)2199 (Given - Provider: Elvira Parnell RN) 923 (Given - Provider: Shani Hernadez RN)2029 (Given - Provider: Loree Ghosh RN) 925 (Given - Provider: Alena Self RN)2100 (Due) melatonin tablet 1 mg (Patient Supplied) 1 mg, Oral, Nightly, First dose on 09/07/22 at 0130, Until Discontinued, Patient supply 2202 (Not Given - Provider: Elvira Parnell RN - Reason: Medication not available) 2034 (Not Given - Provider: Loree Ghosh RN - Reason: Medication not available) 2099 (Due) pantoprazole (PROTONIX) tablet 40 mg 40 mg, Oral, DAILY BEFORE BREAKFAST, First dose on 09/07/22 at 0700, Until Discontinued, Do not crush or break. Substituted for Omeprazole (PRILOSEC). 0722 (Given - Provider: Shani Hernadez RN) 0733 (Given - Provider: Shani Hernadez RN) 0642 (Given - Provider: Alena Self RN) polyvinyl alcohol (LIQUIFILM TEARS) 1.4 % ophthalmic solution 1 drop 1 drop, Both Eyes, DAILY, First dose on 09/07/22 at 0900, Until Discontinued, Substituted for cycloSPORINE (RESTASIS). 0910 (Given - Provider: Shani Hernadez RN) 0932 (Given - Provider: Shani Hernadez RN) 0941 (Given - Provider: Alena Self, EMELY) sodium chloride flush 0.9 % injection 5-40 mL 5-40 mL, IntraVENous, EVERY 12 HOURS SCHEDULED (2 times per day), First dose on 09/07/22 at 0900, Until Discontinued, For Line Patency: Peripheral IV = 5 mL; Midline or Central Line = 10 mL/lumen. If following IV push medication, administer flush at same rate as the IV push. Flush volume is determined by type of infusion therapy being given. For non-viscous solutions use: Peripheral IV = 5 mL Midline or Central Line = 10 mL/lumen For viscous solutions (i.e. blood components, parenteral nutrition, contrast media, or after obtaining blood sample) use: Peripheral IV = 10 mL Midline or Central Line = 20 mL/lumen 918 (Given - Provider: Shani Hernadez RN)2154 (Not Given - Provider: Elvira Parnell RN - Reason: IV Fluid Infusing) 931 (Given - Provider: Shani Hernadez RN)2031 (Given - Provider: Loree Ghosh RN) 932 (Given - Provider: Alena Self RN)2100 (Due) spironolactone (ALDACTONE) tablet 50 mg 50 mg, Oral, DAILY, First dose on 09/07/22 at 0900, Until Discontinued 909 (Given - Provider: Shani Hernadez RN) 926 (Given - Provider: Shani Hernadez RN) 928 (Given - Provider: Alena Self, EMELY) traZODone (DESYREL) tablet 100 mg 100 mg, Oral, NIGHTLY, First dose on 09/07/22 at 0130, Until Discontinued 2153 (Given - Provider: Elvira Parnell RN) 2029 (Given - Provider: Loree Ghosh RN) 2100 (Due) vitamin D (CHOLECALCIFEROL) tablet 1,000 Units Labeling may look different. 25 vhx=1361 Units. Please double check dosages., 1,000 Units, Oral, DAILY, First dose on 09/07/22 at 0900, Until Discontinued 910 (Given - Provider: Shani Hernadez RN) 925 (Given - Provider: Shani Hernadez RN) 928 (Given - Provider: Alena Self RN) PRN Medication Order 2022 09/10/2022 09/11/2022 0.9 % sodium chloride infusion IntraVENous, at 5-250 mL/hr, PRN, if patient receiving piggyback infusions and maintenance fluids are not ordered OR KVO fluids to protect IV site / prevent frequent line interruptions/ long duration, Starting on 09/07/22 at 0113, For piggyback infusion, administer at same rate as piggyback for a total of 25 mL. Enter 25 mL into dose field and piggyback rate into rate field of order. If piggyback is infusing at a rate less than 100 mL/hr, enter 25 mL into dose field and 100 mL/hr into rate field of order. For KVO fluids, enter rate of 20 mL/hr or less into rate field of order. acetaminophen (TYLENOL) suppository 650 mg(Linked Group 1) 650 mg, Rectal, EVERY 6 HOURS PRN, Starting on 09/07/22 at 0113, Until Discontinued, Pain Mild (1-3), Fever, For temp greater than 100.4 F (38 C), Administer if oral route cannot be used. 0722 (See Alternative - Provider: Shani Hernadez RN) 0430 (See Alternative - Provider: Elvira Parnell RN)1104 (See Alternative - Provider: Shani Hernadez RN)2030 (See Alternative - Provider: Loree Ghosh RN) 0400 (See Alternative - Provider: Loree Ghosh RN)1023 (See Alternative - Provider: Alena Self RN) acetaminophen (TYLENOL) tablet 650 mg(Linked Group 1) 650 mg, Oral, EVERY 6 HOURS PRN, Starting on 09/07/22 at 0113, Until Discontinued, Pain Mild (1-3), Fever, For temp greater than 100.4 F (38 C), Maximum dose of acetaminophen is 4000 mg from all sources in 24 hours. 0722 (Given - Provider: Shani Hernadez RN - Comment: given per pt request) 0430 (Given - Provider: Elvira Parnell RN)1104 (Given - Provider: Shani Hernadez RN - Comment: per pt request)2030 (Given - Provider: Loree Ghosh RN) 0400 (Given - Provider: [place] Ghosh, RN)1023 (Given - Provider: Alena Self RN) dextrose 10 % infusion IntraVENous, at 100 mL/hr, CONTINUOUS PRN, if blood glucose remains LESS THAN 70 mg/dL after 2 dextrose 10% intravenous boluses or administration of glucagon, Starting on 09/07/22 at 0132, If blood glucose fails to stabilize after 2 dextrose 10% intravenous boluses or glucagon administration, start dextrose 10% infusion at 100 mL/hour and repeat blood glucose at 30 and 60 minutes. If blood glucose is GREATER THAN 70 mg/dL after 60 minutes, discontinue dextrose 10% infusion. dextrose bolus 10% 125 mL(Linked Group 2) 125 mL, IntraVENous, at 937.5 mL/hr, Administer over 8 Minutes, PRN, Other, Blood glucose 40 - 69 mg/dL and patient NOT ALERT or NPO, Starting on 09/07/22 at 0132, Repeat blood glucose in 15 minutes. If blood glucose remains LESS THAN 70 mg/dL, repeat treatment and recheck blood glucose in 15 minutes x 2. If using glycemic management system, dose as instructed per system. If blood glucose remains LESS THAN 70 mg/dL after 2 intravenous boluses start dextrose 10% at 100 mL/hour and notify provider. dextrose bolus 10% 250 mL(Linked Group 2) 250 mL, IntraVENous, at 937.5 mL/hr, Administer over 16 Minutes, PRN, Other, Blood glucose LESS THAN 40 mg/dL and patient NOT ALERT or NPO, Starting on 09/07/22 at 0132, Repeat blood glucose in 15 minutes. If blood glucose remains LESS THAN 70 mg/dL, repeat treatment and recheck blood glucose in 15 minutes x 2. If using glycemic management system, dose as instructed per system. If blood glucose remains LESS THAN 70 mg/dL after 2 intravenous boluses start dextrose 10% at 100 mL/hour and notify provider. glucagon (rDNA) injection 1 mg 1 mg, SubCUTAneous, PRN, Starting on 09/07/22 at 0132, Until Discontinued, Low blood sugar, Blood glucose LESS THAN 70 mg/dL and patient NOT ALERT or NPO and does not have IV access., After administration, attempt intravenous access and start dextrose 10% at 100 mL/hr. Repeat blood glucose in 15 minutes x 2 and notify provider. glucose chewable tablet 16 g 16 g (4 tablet), Oral, PRN, Starting on 09/07/22 at 0132, Until Discontinued, Low blood sugar, If blood glucose is LESS THAN 70 mg/dL and patient is alert and tolerating oral. Give 4 tablets (16g) Repeat blood glucose in 15 minutes. If blood glucose is LESS THAN 70 mg/dL, repeat treatment and recheck blood glucose in 15 minutes x 2. If blood glucose remains LESS THAN 70 mg/dL, notify provider. ondansetron (ZOFRAN) injection 4 mg(Linked Group 3) 4 mg, IntraVENous, EVERY 6 HOURS PRN, Starting on 09/07/22 at 0113, Until Discontinued, Nausea, Vomiting, Administer if oral route cannot be used. ondansetron (ZOFRAN-ODT) disintegrating tablet 4 mg(Linked Group 3) 4 mg, Oral, EVERY 8 HOURS PRN, Starting on 09/07/22 at 0113, Until Discontinued, Nausea, Vomiting polyethylene glycol (GLYCOLAX) packet 17 g 17 g, Oral, DAILY PRN, Starting on 09/07/22 at 0113, Until Discontinued, Constipation, First line therapy for constipation sodium chloride flush 0.9 % injection 10 mL 10 mL, IntraVENous, PRN, Starting on 09/07/22 at 0113, Until Discontinued, Line Care, After every IV line use Linked Groups Order Group 1: acetaminophen (TYLENOL) tablet 650 mgJump to med 650 mg, Oral, EVERY 6 HOURS PRN, Starting on 09/07/22 at 0113, Until Discontinued, Pain Mild (1-3), Fever, For temp greater than 100.4 F (38 C)
Maximum dose of acetaminophen is 4000 mg from all sources in 24 hours.
Or acetaminophen (TYLENOL) suppository 650 mgJump to med 650 mg, Rectal, EVERY 6 HOURS PRN, Starting on 09/07/22 at 0113, Until Discontinued, Pain Mild (1-3), Fever, For temp greater than 100.4 F (38 C)
Administer if oral route cannot be used.
Group 2: dextrose bolus 10% 125 mLJump to med 125 mL, IntraVENous, at 937.5 mL/hr, Administer over 8 Minutes, PRN, Other, Blood glucose 40 - 69 mg/dL and patient NOT ALERT or NPO, Starting on 09/07/22 at 0132
Repeat blood glucose in 15 minutes. If blood glucose remains LESS THAN 70 mg/dL, repeat treatment and recheck blood glucose in 15 minutes x 2. If using glycemic management system, dose as instructed per system. If blood glucose remains LESS THAN 70 mg/dL after 2 intravenous boluses start dextrose 10% at 100 mL/hour and notify provider.
Or dextrose bolus 10% 250 mLJump to med 250 mL, IntraVENous, at 937.5 mL/hr, Administer over 16 Minutes, PRN, Other, Blood glucose LESS THAN 40 mg/dL and patient NOT ALERT or NPO, Starting on 09/07/22 at 0132
Repeat blood glucose in 15 minutes. If blood glucose remains LESS THAN 70 mg/dL, repeat treatment and recheck blood glucose in 15 minutes x 2. If using glycemic management system, dose as instructed per system. If blood glucose remains LESS THAN 70 mg/dL after 2 intravenous boluses start dextrose 10% at 100 mL/hour and notify provider.
Group 3: ondansetron (ZOFRAN-ODT) disintegrating tablet 4 mgJump to med 4 mg, Oral, EVERY 8 HOURS PRN, Starting on 09/07/22 at 0113, Until Discontinued, Nausea, Vomiting Or ondansetron (ZOFRAN) injection 4 mgJump to med 4 mg, IntraVENous, EVERY 6 HOURS PRN, Starting on 09/07/22 at 0113, Until Discontinued, Nausea, Vomiting
Administer if oral route cannot be used.
Scheduled Medication Order 10/02/2022 10/03/2022 10/04/2022 0.9 % sodium chloride bolus (COMPLETED) 1,000 mL (12 mL/kg), IntraVENous, at 983.6 mL/hr, Administer over 61 Minutes, ONCE, On Thu10/03/22 at 2100, For 1 dose, For adult patients weighing > 55 kg (120 lbs.) and less than <50 years of age initiate 0.9NS at 500 mL/ hr. All bolus orders are to be given over 10 to 15 minutes 2053 (New Bag - Provider: Ana Mckeon RN)2233 (Stopped - Provider: Pasquale Hennessy RN) diphenhydrAMINE (BENADRYL) injection 25 mg (COMPLETED) 25 mg, IntraVENous, ONCE, 1 dose, On Thu10/03/22 at 2315 2317 (Given - Provider: Pasquale Hennessy, EMELY) HYDROcodone-acetaminophen (NORCO) 5-325 MG per tablet 1 tablet (COMPLETED) 1 tablet, Oral, ONCE, 1 dose, On Thu10/03/22 at 1845, Maximum dose of acetaminophen is 4000 mg from all sources in 24 hours. 184 (Given - Provider: Pasquale Hennessy, EMELY) HYDROmorphone (DILAUDID) injection 1 mg (COMPLETED) 1 mg, IntraVENous, ONCE, 1 dose, On Thu10/03/22 at 2245, If oral and IV narcotics ordered, use oral first and only use IV if oral is ineffective or cannot take oral. Do Not give oral and IV within 1 hour of each other unless specifically ordered. 2236 (Given - Provider: Pasquale Hennessy, EMELY) magnesium sulfate 4000 mg in 100 mL IVPB premix (COMPLETED) 4,000 mg, IntraVENous, at 25 mL/hr, Administer over 4 Hours, ONCE, On Thu10/03/22 at 2100, For 1 dose, Recommended infusion rate not to exceed 1,000 mg (milligrams) per hour. 2056 (New Bag - Provider: Ana Mckeon, RN) 9 (Patient Transferred to Other Facility - Provider: Pasquale Hennessy, EMELY)005 (Due: Stopped - Provider: Ana Mckeon, RN) morphine injection 4 mg (COMPLETED) 4 mg, IntraVENous, ONCE, 1 dose, On Thu10/03/22 at 2000, If oral and IV narcotics ordered, use oral first and only use IV if oral is ineffective or cannot take oral. Do Not give oral and IV within 1 hour of each other unless specifically ordered. 2018 (Given - Provider: Pasquale Hennessy, RN) ondansetron (ZOFRAN) injection 4 mg (COMPLETED) 4 mg, IntraVENous, ONCE, 1 dose, On Thu10/03/22 at 2000 2018 (Given - Provider: Pasquale Hennessy, RN) Scheduled Medication Order 10/15/2022 10/16/2022 10/17/2022 atenolol (TENORMIN) tablet 25 mg 25 mg, Oral, NIGHTLY, First dose (after last modification) on Thu10/08/22 at 2100, Until Discontinued 2113 (Given - Provider: Raven Steward RN) 2019 (Not Given - Provider: Gary Reyes RN - Reason: Other - Comment: low diastolic) 2099 (Due) atorvastatin (LIPITOR) tablet 80 mg 80 mg, Oral, NIGHTLY, First dose on Thu10/08/22 at 2100, Until Discontinued 2113 (Given - Provider: Raven Steward RN) 2011 (Given - Provider: Gary Reyes RN) 2099 (Due) divalproex (DEPAKOTE ER) extended release tablet 750 mg 750 mg, Oral, Nightly, First dose on Thu10/10/22 at 2100, Until Discontinued, Do not crush or break. 2113 (Given - Provider: Raven Steward RN) 2010 (Given - Provider: Gary Reyes RN) 2099 (Due) FLUoxetine (PROZAC) capsule 40 mg 40 mg, Oral, DAILY, First dose on Thu10/05/22 at 1245, Until Discontinued 921 (Given - Provider: Ethel Howard RN) 0847 (Given - Provider: Ethel Howard RN) 08 (Given - Provider: Kristel Blue, RN) furosemide (LASIX) tablet 20 mg 20 mg, Oral, DAILY, First dose (after last modification) on Thu10/09/22 at 0900, Until Discontinued 921 (Given - Provider: Ethel Howard RN) 0846 (Given - Provider: Ethel Howard RN) 123 (Given - Provider: Kristel Blue, RN) gabapentin (NEURONTIN) capsule 100 mg 100 mg, Oral, 2 times daily, First dose on Thu10/04/22 at 0900, Until Discontinued 921 (Given - Provider: Ethel Howard RN)2118 (Given - Provider: Raven Steward RN) 08 (Given - Provider: Ethel Howard, EMELY)2010 (Given - Provider: Gary Reyes RN) 847 (Given - Provider: Kristel Blue, EMELY)2099 (Due) heparin (porcine) injection 5,000 Units 5,000 Units, SubCUTAneous, EVERY 8 HOURS SCHEDULED (3 times per day), First dose on Thu10/07/22 at 1400, Until Discontinued 0535 (Given - Provider: Raven Steward RN)1434 (Given - Provider: Ethel Howard RN)2126 (Given - Provider: Raven Steward RN) 0534 (Given - Provider: Raven Steward RN)1329 (Given - Provider: Ethel Howard RN)2238 (Not Given - Provider: Gary Reyes RN - Reason: Patient/family refused) 0531 (Not Given - Provider: Gary Reyes RN - Reason: Patient/family refused)1549 (Not Given - Provider: Kristel Blue RN - Reason: Patient/family refused)220 (Due) insulin glargine (LANTUS) injection vial 15 Units 15 Units, SubCUTAneous, 2 TIMES DAILY, First dose (after last modification) on Thu10/08/22 at 0900, Until Discontinued 09 (Given - Provider: Ethel Howard RN)211 (Given - Provider: Raven Steward RN) 0847 (Given - Provider: Ethel Howard RN)223 (Given - Provider: Gary Reyes RN) 0855 (Given - Provider: Kristel Blue RN - Comment: blood sugar [phone] (Due) insulin lispro (HUMALOG) injection vial 0-4 Units (CANCELED) 0-4 Units, SubCUTAneous, 4 TIMES DAILY BEFORE MEALS & NIGHTLY, First dose (after last modification) on Thu10/13/22 at 1700, Until Discontinued, Corrective Low Dose Algorithm Glucose: Dose: 70-199 No Insulin 200-249 1 Unit 250-299 2 Units 300-349 3 Units Over 349 4 Units and notify physician 0724 (Not Given - Provider: Ethel Howard RN - Reason: Order parameters not met - Comment: [phone] (Given - Provider: Ethel Howard RN - Comment: [phone] (Not Given - Provider: Ethel Howard RN - Reason: Order parameters not met - Comment: [phone] (Not Given - Provider: Raven Steward RN - Reason: Order parameters not met) 0710 (Not Given - Provider: Ethel Howard RN - Reason: Other - Comment: [phone] (Not Given - Provider: Ethel Howard RN - Reason: Order parameters not met - Comment: [phone] (Not Given - Provider: Ethel Howard RN - Reason: Order parameters not met - Comment: [phone] (Not Given - Provider: Gary Reyes RN - Reason: Order parameters not met - Comment: [phone] 0654 (Not Given - Provider: Gary Reyes RN - Reason: Order parameters not met) lactulose (CHRONULAC) 10 GM/15ML solution 20 g 20 g, Oral, 3 TIMES DAILY, First dose (after last modification) on Delfina 10/09/22 at 1645, Until Discontinued, Titrate to 3 loose BM daily 0922 (Given - Provider: Ethel Howard RN)1434 (Not Given - Provider: Ethel Howard RN - Reason: Patient/family refused)2123 (Not Given - Provider: Raven Steward RN - Reason: Patient/family refused) 0850 (Not Given - Provider: Ethel Howard RN - Reason: Patient/family refused)1349 (Not Given - Provider: Ethel Howard RN - Reason: Patient/family refused)2021 (Not Given - Provider: Gary Reyes RN - Reason: Patient/family refused - Comment: pt had 2 bm today) 0848 (Given - Provider: Kristel Blue RN)1549 (Not Given - Provider: Kristel Blue RN - Reason: Patient/family refused)2099 (Due) melatonin tablet 5 mg 5 mg, Oral, Nightly, First dose (after last modification) on 10/04/22 at 2100, Until Discontinued 2113 (Given - Provider: Raven Steward, EMELY) 2010 (Given - Provider: Gary Reyes RN) 2099 (Due) metFORMIN (GLUCOPHAGE) tablet 500 mg 500 mg, Oral, 2 TIMES DAILY WITH MEALS, First dose on Thu10/08/22 at 1700, Until Discontinued 0921 (Given - Provider: Ethel Howard RN)1714 (Given - Provider: Ethel Howard RN) 0848 (Given - Provider: Ethel Howard RN)172 (Given - Provider: Joshua Núñez) 0848 (Given - Provider: Kristel Blue RN)1700 (Due) polyethylene glycol (GLYCOLAX) packet 17 g 17 g, Oral, DAILY, First dose on Thu10/06/22 at 1900, Until Discontinued, Stir and dissolve one packet of powder (17 g) in any 4 to 8 ounces of beverage (cold, hot or room temperature) then drink 0922 (Given - Provider: Ethel Howard RN) 0850 (Not Given - Provider: Ethel Howard RN - Reason: Patient/family refused) 0858 (Not Given - Provider: Kristel Blue RN - Reason: Patient/family refused) rifAXIMin (XIFAXAN) tablet 550 mg 550 mg, Oral, 2 TIMES DAILY, First dose on Thu10/07/22 at 0900, Until Discontinued 09 (Given - Provider: Ethel Howard RN)2113 (Given - Provider: Raven Steward RN) 0847 (Given - Provider: Ethel Howard RN)2011 (Given - Provider: Gary Reyes RN) 0848 (Given - Provider: Kristel Blue RN)2100 (Due) spironolactone (ALDACTONE) tablet 25 mg 25 mg, Oral, DAILY, First dose on Thu10/08/22 at 1215, Until Discontinued 921 (Given - Provider: Ethel Howard RN) 0846 (Given - Provider: Ethel Howard RN) 0848 (Given - Provider: Kristel Blue, EMELY) PRN Medication Order 10/15/2022 10/16/2022 10/17/2022 acetaminophen (TYLENOL) tablet 1,000 mg 1,000 mg, Oral, EVERY 8 HOURS PRN, Starting on Thu10/08/22 at 1230, Until Discontinued, Pain Mild (1-3), Maximum dose of acetaminophen is 4000 mg from all sources in 24 hours. 2252 (Given - Provider: Gary Reyes RN) 0857 (Given - Provider: Kristel Blue, EMELY)1548 (Given - Provider: Kristel Blue RN) methocarbamol (ROBAXIN) tablet 750 mg 750 mg, Oral, 2 TIMES DAILY PRN, Starting on Thu10/08/22 at 1230, Until Discontinued, Muscle spasms 2319 (Given - Provider: Raven Steward RN) 1148 (Given - Provider: Ethel Howard RN)2253 (Given - Provider: Gary Reyes RN) 0857 (Given - Provider: Kristel Blue, EMELY)1548 (Given - Provider: Kristel Blue, RN) ondansetron (ZOFRAN) injection 4 mg(Linked Group 1) 4 mg, IntraVENous, EVERY 6 HOURS PRN, Starting on 10/04/22 at 0456, Until Discontinued, Nausea, Vomiting, Administer if oral route cannot be used. ondansetron (ZOFRAN-ODT) disintegrating tablet 4 mg(Linked Group 1) 4 mg, Oral, EVERY 8 HOURS PRN, Starting on 10/04/22 at 0456, Until Discontinued, Nausea, Vomiting oxyCODONE (ROXICODONE) immediate release tablet 5 mg 5 mg, Oral, EVERY 8 HOURS PRN, Starting on 10/14/22 at 0745, Until Delfina 10/16/22 at 0744, Pain Severe (7-10) 1109 (Given - Provider: Ethel Howard RN)1848 (Given - Provider: Ethel Howard RN) 0519 (Given - Provider: Raven Steward RN) sodium chloride flush 0.9 % injection 5-40 mL 5-40 mL, IntraVENous, PRN, Starting on 10/06/22 at 1836, Until Discontinued, Line Care, After every IV line use, For Line Patency: Peripheral IV = 5 mL; Midline or Central Line = 10 mL/lumen. If following IV push medication, administer flush at same rate as the IV push. Flush volume is determined by type of infusion therapy being given. For non-viscous solutions use: Peripheral IV = 5 mL Midline or Central Line = 10 mL/lumen For viscous solutions (i.e. blood components, parenteral nutrition, contrast media, or after obtaining blood sample) use: Peripheral IV = 10 mL Midline or Central Line = 20 mL/lumen 0923 (Given - Provider: Ethel Howard RN) Linked Groups Order Group 1: ondansetron (ZOFRAN-ODT) disintegrating tablet 4 mgJump to med 4 mg, Oral, EVERY 8 HOURS PRN, Starting on 10/04/22 at 0456, Until Discontinued, Nausea, Vomiting Or ondansetron (ZOFRAN) injection 4 mgJump to med 4 mg, IntraVENous, EVERY 6 HOURS PRN, Starting on 10/04/22 at 0456, Until Discontinued, Nausea, Vomiting
Administer if oral route cannot be used.
Scheduled Medication Order 11/23/2022 11/24/2022 11/25/2022 allopurinol (ZYLOPRIM) tablet 150 mg 150 mg, Oral, DAILY, First dose on Thu11/19/22 at 0900, Until Discontinued 0857 (Given - Provider: Ruth Watkins RN) 0842 (Given - Provider: Crhistina Cortes) 08 (Given - Provider: Javy Walker, EMELY) atenolol (TENORMIN) tablet 50 mg 50 mg, Oral, Nightly, First dose on Thu11/18/22 at 2330, Until Discontinued 2050 (Given - Provider: Junie Parsons RN) 2044 (Given - Provider: Cony Quigley RN) 2099 (Due) atorvastatin (LIPITOR) tablet 80 mg 80 mg, Oral, NIGHTLY, First dose on Thu11/18/22 at 2330, Until Discontinued 2050 (Given - Provider: Junie Parsons RN) 2044 (Given - Provider: Cony Quigley RN) 2099 (Due) cephALEXin (KEFLEX) capsule 500 mg 500 mg, Oral, 3 times daily, 21 doses, First dose on 11/23/22 at 1015, Last dose on 11/29/22 at 2100, Antimicrobial Indications: Urinary Tract Infection, UTI duration of therapy: 7 days 1058 (Given - Provider: Ruth Watkins RN)1537 (Given - Provider: Ruth Watkins RN)2051 (Given - Provider: Junie Parsons RN) 0841 (Given - Provider: Christina Cortes)1455 (Given - Provider: Christina Cortes)2044 (Given - Provider: Cony Quigley, EMELY) 0830 (Given - Provider: Javy Walker, EMELY)151 (Given - Provider: Javy Walker, EMELY)2099 (Due) divalproex (DEPAKOTE ER) extended release tablet 750 mg 750 mg, Oral, Nightly, First dose on Thu11/18/22 at 2330, Until Discontinued, Do not crush or break. 2051 (Given - Provider: Junie Parsons RN) 2044 (Given - Provider: Cony Quigley, EMELY) 2099 (Due) ferrous sulfate (IRON 325) tablet 325 mg 325 mg, Oral, EVERY 48 HOURS, First dose (after last reorder) on Thu11/19/22 at 2100, Until Discontinued 2050 (Given - Provider: Junie Parsons RN) 2099 (Due) FLUoxetine (PROZAC) capsule 40 mg 40 mg, Oral, DAILY, First dose on Thu11/19/22 at 0900, Until Discontinued 856 (Given - Provider: Ruth Watkins RN) 0842 (Given - Provider: Christina Cortes) 0830 (Given - Provider: Javy Walker, EMELY) gabapentin (NEURONTIN) capsule 100 mg 100 mg, Oral, 2 times daily, First dose on Thu11/18/22 at 2330, Until Discontinued 856 (Given - Provider: Ruth Watkins RN)2050 (Given - Provider: Junie Parsons RN) 0842 (Given - Provider: Christina Cortes)2044 (Given - Provider: Cony Quigley RN) 08 (Given - Provider: Javy Walker RN)2099 (Due) heparin (porcine) injection 5,000 Units 5,000 Units, SubCUTAneous, EVERY 8 HOURS SCHEDULED (3 times per day), First dose on Thu11/18/22 at 2330, Until Discontinued 0600 (Automatically Held - Provider: Libby Crespo MD)1400 (Automatically Held - Provider: Libby Crespo MD)2200 (Automatically Held - Provider: Libby Crespo MD) 0600 (Automatically Held - Provider: Libby Crespo MD)1400 (Automatically Held - Provider: Libby Crespo MD)2200 (Automatically Held - Provider: Libby Crespo MD) 0600 (Automatically Held)1400 (Automatically Held)2200 (Automatically Held) insulin glargine (LANTUS) injection vial 20 Units 20 Units, SubCUTAneous, 2 TIMES DAILY, First dose on Thu11/18/22 at 2345, Until Discontinued, Interchange for Levemir 0859 (Given - Provider: Ruth Watkins RN)2053 (Given - Provider: Junie Parsons RN) 0843 (Given - Provider: Christina Cortes)2057 (Given - Provider: Cony Quigley RN) 0832 (Given - Provider: Javy Walker, EMELY)2100 (Due) lactulose (CHRONULAC) 10 GM/15ML solution 30 g 30 g, Oral, 2 TIMES DAILY, First dose on Thu11/18/22 at 2330, Until Discontinued 09 (Not Given - Provider: Ruth Watkins RN - Reason: Patient/family refused)2052 (Not Given - Provider: Junie Parsnos RN - Reason: Patient/family refused) 0841 (Given - Provider: Christina Crotes)2046 (Not Given - Provider: Cony Quigley RN - Reason: Patient/family refused) 0837 (Not Given - Provider: Javy Walker RN - Reason: Patient/family refused)2100 (Due) magnesium oxide (MAG-OX) tablet 400 mg 400 mg, Oral, 2 TIMES DAILY, First dose on Thu11/21/22 at 1145, Until Discontinued 08 (Given - Provider: Ruth Watkins RN)2051 (Given - Provider: Junie Parsons RN) 0841 (Given - Provider: Christina Cortes)2043 (Given - Provider: Cony Quigley RN) 0830 (Given - Provider: Javy Walker, EMELY)2100 (Due) melatonin tablet 1.5 mg 1.5 mg, Oral, Nightly, First dose (after last reorder) on Thu11/24/22 at 2115, Until Discontinued 2057 (Given - Provider: Cony Quigley, EMELY) 2100 (Due) melatonin tablet 1.5 mg 1.5 mg, Oral, ONCE, 1 dose, On Thu11/24/22 at 2115 2107 (Canceled Entry - Provider: Cony Quigley RN) metFORMIN (GLUCOPHAGE) tablet 1,000 mg 1,000 mg, Oral, 2 TIMES DAILY WITH MEALS, First dose on Thu11/19/22 at 0800, Until Discontinued 0800 (Automatically Held)1700 (Automatically Held) 0800 (Automatically Held)1700 (Automatically Held) 0800 (Automatically Held)1700 (Automatically Held) mometasone-formoterol (DULERA) 200-5 MCG/ACT inhaler 2 puff 2 puff, Inhalation, 2 TIMES DAILY, First dose on Thu11/18/22 at 2330, Until Discontinued, Substituted for Fluticasone-vilanterol (BREO ELLIPTA). 0737 (Given - Provider: Kiko Santos [facility])2029 (Given - Provider: Aristeo Tatum [facility]) 0951 (Given - Provider: Pauline Huffman [facility])194 (Given - Provider: Nara Moffett [facility]) 103 (Given - Provider: Daksha Scurggs [facility])2099 (Due) pantoprazole (PROTONIX) tablet 40 mg 40 mg, Oral, DAILY BEFORE BREAKFAST, First dose on Thu11/19/22 at 0700, Until Discontinued, Do not crush or break. Substituted for Omeprazole (PRILOSEC). 0750 (Given - Provider: Ruth Watkins RN) 0703 (Given - Provider: Christina Cortes) 0648 (Given - Provider: Javy Walker, EMELY) polyvinyl alcohol (LIQUIFILM TEARS) 1.4 % ophthalmic solution 1 drop 1 drop, Both Eyes, 2 times daily, First dose on Thu11/18/22 at 2330, Until Discontinued, Substituted for cycloSPORINE (RESTASIS). 0858 (Given - Provider: Ruth Watkins RN)2057 (Given - Provider: Junie Parsons RN) 0845 (Given - Provider: Christina Cortes)2046 (Given - Provider: Cony Quigley, EMELY) 0836 (Given - Provider: Javy Walker, EMELY)2099 (Due) rifAXIMin (XIFAXAN) tablet 550 mg 550 mg, Oral, 2 TIMES DAILY, First dose on Thu11/18/22 at 2330, Until Discontinued 0857 (Given - Provider: Ruth Watkins RN)2051 (Given - Provider: Junie Parsons RN) 0846 (Given - Provider: Christina Cortes)2044 (Given - Provider: Cony Quigley, EMELY) 0830 (Given - Provider: Javy Walker, EMELY)2099 (Due) sodium chloride flush 0.9 % injection 10 mL 10 mL, IntraVENous, EVERY 12 HOURS SCHEDULED (2 times per day), First dose on Thu11/18/22 at 2330, Until Discontinued 0900 (Given - Provider: Ruth Watkins RN)1946 (Not Given - Provider: Junie Parsons RN - Reason: Loss of IV access) 0846 (Not Given - Provider: Christina Cortes - Reason: Loss of IV access)2047 (Not Given - Provider: Cony Quigley RN - Reason: Loss of IV access) 0836 (Not Given - Provider: Javy Walker RN - Reason: Loss of IV access)2100 (Due) therapeutic multivitamin-minerals 1 tablet 1 tablet, Oral, DAILY, First dose on Thu11/19/22 at 0900, Until Discontinued 0857 (Given - Provider: Ruth Watkins RN) 0842 (Given - Provider: Christina Cortes) 0830 (Given - Provider: Javy Walker RN) trospium (SANCTURA) tablet 20 mg 20 mg, Oral, 2 TIMES DAILY BEFORE MEALS, First dose (after last modification) on Thu11/21/22 at 1600, Until Discontinued 0750 (Given - Provider: Ruth Watkins RN)1621 (Given - Provider: Ruth Watkins RN) 0703 (Given - Provider: Christina Cortes)1455 (Given - Provider: Christina Cortes) 0649 (Given - Provider: Javy Walker RN)1511 (Given - Provider: Javy Walker RN) vitamin D (CHOLECALCIFEROL) tablet 1,000 Units 1,000 Units, Oral, DAILY, First dose on Thu11/19/22 at 0900, Until Discontinued 0857 (Given - Provider: Ruth Watkins RN) 0842 (Given - Provider: Christina Cortes) 0830 (Given - Provider: Javy Walker RN) PRN Medication Order 11/23/2022 11/24/2022 11/25/2022 0.9 % sodium chloride infusion IntraVENous, at 5-250 mL/hr, PRN, if patient receiving piggyback infusions and maintenance fluids are not ordered OR KVO fluids to protect IV site / prevent frequent line interruptions/ long duration, Starting on Thu11/18/22 at 2306, For piggyback infusion, administer at same rate as piggyback for a total of 25 mL. Enter 25 mL into dose field and piggyback rate into rate field of order. If piggyback is infusing at a rate less than 100 mL/hr, enter 25 mL into dose field and 100 mL/hr into rate field of order. For KVO fluids, enter rate of 20 mL/hr or less into rate field of order. acetaminophen (TYLENOL) suppository 650 mg(Linked Group 1) 650 mg, Rectal, EVERY 6 HOURS PRN, Starting on Thu11/18/22 at 2306, Until Discontinued, Pain Mild (1-3), Fever, For temp greater than 100.4 F (38 C), Administer if oral route cannot be used. 0754 (See Alternative - Provider: Ruth Watkins RN) 1052 (See Alternative - Provider: Christina Cortes) acetaminophen (TYLENOL) tablet 650 mg(Linked Group 1) 650 mg, Oral, EVERY 6 HOURS PRN, Starting on Thu11/18/22 at 2306, Until Discontinued, Pain Mild (1-3), Fever, For temp greater than 100.4 F (38 C), Maximum dose of acetaminophen is 4000 mg from all sources in 24 hours. 0754 (Given - Provider: Ruth Watkins RN) 1052 (Given - Provider: Christina Cortes) dextrose 10 % infusion IntraVENous, at 100 mL/hr, CONTINUOUS PRN, if blood glucose remains LESS THAN 70 mg/dL after 2 dextrose 10% intravenous boluses or administration of glucagon, Starting on Thu11/18/22 at 2316, If blood glucose fails to stabilize after 2 dextrose 10% intravenous boluses or glucagon administration, start dextrose 10% infusion at 100 mL/hour and repeat blood glucose at 30 and 60 minutes. If blood glucose is GREATER THAN 70 mg/dL after 60 minutes, discontinue dextrose 10% infusion. dextrose bolus 10% 125 mL(Linked Group 2) 125 mL, IntraVENous, at 937.5 mL/hr, Administer over 8 Minutes, PRN, Other, Blood glucose 40 - 69 mg/dL and patient NOT ALERT or NPO, Starting on Thu11/18/22 at 2316, Repeat blood glucose in 15 minutes. If blood glucose remains LESS THAN 70 mg/dL, repeat treatment and recheck blood glucose in 15 minutes x 2. If using glycemic management system, dose as instructed per system. If blood glucose remains LESS THAN 70 mg/dL after 2 intravenous boluses start dextrose 10% at 100 mL/hour and notify provider. dextrose bolus 10% 250 mL(Linked Group 2) 250 mL, IntraVENous, at 937.5 mL/hr, Administer over 16 Minutes, PRN, Other, Blood glucose LESS THAN 40 mg/dL and patient NOT ALERT or NPO, Starting on Thu11/18/22 at 2316, Repeat blood glucose in 15 minutes. If blood glucose remains LESS THAN 70 mg/dL, repeat treatment and recheck blood glucose in 15 minutes x 2. If using glycemic management system, dose as instructed per system. If blood glucose remains LESS THAN 70 mg/dL after 2 intravenous boluses start dextrose 10% at 100 mL/hour and notify provider. fluticasone (FLONASE) 50 MCG/ACT nasal spray 2 spray 2 spray, Each Nostril, DAILY PRN, Starting on Thu11/18/22 at 2306, Until Discontinued, Allergies glucagon injection 1 mg 1 mg, SubCUTAneous, PRN, Starting on Thu11/18/22 at 2316, Until Discontinued, Low blood sugar, Blood glucose LESS THAN 70 mg/dL and patient NOT ALERT or NPO and does not have IV access., After administration, attempt intravenous access and start dextrose 10% at 100 mL/hr. Repeat blood glucose in 15 minutes x 2 and notify provider. glucose chewable tablet 16 g 16 g (4 tablet), Oral, PRN, Starting on Thu11/18/22 at 2316, Until Discontinued, Low blood sugar, If blood glucose is LESS THAN 70 mg/dL and patient is alert and tolerating oral. Give 4 tablets (16g) Repeat blood glucose in 15 minutes. If blood glucose is LESS THAN 70 mg/dL, repeat treatment and recheck blood glucose in 15 minutes x 2. If blood glucose remains LESS THAN 70 mg/dL, notify provider. ondansetron (ZOFRAN) injection 4 mg(Linked Group 3) 4 mg, IntraVENous, EVERY 6 HOURS PRN, Starting on Thu11/18/22 at 2306, Until Discontinued, Nausea, Vomiting, Administer if oral route cannot be used. ondansetron (ZOFRAN-ODT) disintegrating tablet 4 mg(Linked Group 3) 4 mg, Oral, EVERY 8 HOURS PRN, Starting on Thu11/18/22 at 2306, Until Discontinued, Nausea, Vomiting polyethylene glycol (GLYCOLAX) packet 17 g 17 g, Oral, DAILY PRN, Starting on Thu11/18/22 at 2306, Until Discontinued, Constipation, First line therapy for constipation sodium chloride flush 0.9 % injection 10 mL 10 mL, IntraVENous, PRN, Starting on Thu11/18/22 at 2306, Until Discontinued, Line Care, After every IV line use traZODone (DESYREL) tablet 100 mg 100 mg, Oral, NIGHTLY PRN, Starting on Thu11/20/22 at 2100, Until Discontinued, Sleep 2050 (Given - Provider: Junie Parsons RN) 2044 (Given - Provider: Cony Quigley RN) Linked Groups Order Group 1: acetaminophen (TYLENOL) tablet 650 mgJump to med 650 mg, Oral, EVERY 6 HOURS PRN, Starting on Thu11/18/22 at 2306, Until Discontinued, Pain Mild (1-3), Fever, For temp greater than 100.4 F (38 C)
Maximum dose of acetaminophen is 4000 mg from all sources in 24 hours.
Or acetaminophen (TYLENOL) suppository 650 mgJump to med 650 mg, Rectal, EVERY 6 HOURS PRN, Starting on Thu11/18/22 at 2306, Until Discontinued, Pain Mild (1-3), Fever, For temp greater than 100.4 F (38 C)
Administer if oral route cannot be used.
Group 2: dextrose bolus 10% 125 mLJump to med 125 mL, IntraVENous, at 937.5 mL/hr, Administer over 8 Minutes, PRN, Other, Blood glucose 40 - 69 mg/dL and patient NOT ALERT or NPO, Starting on Thu11/18/22 at 2316
Repeat blood glucose in 15 minutes. If blood glucose remains LESS THAN 70 mg/dL, repeat treatment and recheck blood glucose in 15 minutes x 2. If using glycemic management system, dose as instructed per system. If blood glucose remains LESS THAN 70 mg/dL after 2 intravenous boluses start dextrose 10% at 100 mL/hour and notify provider.
Or dextrose bolus 10% 250 mLJump to med 250 mL, IntraVENous, at 937.5 mL/hr, Administer over 16 Minutes, PRN, Other, Blood glucose LESS THAN 40 mg/dL and patient NOT ALERT or NPO, Starting on Thu11/18/22 at 2316
Repeat blood glucose in 15 minutes. If blood glucose remains LESS THAN 70 mg/dL, repeat treatment and recheck blood glucose in 15 minutes x 2. If using glycemic management system, dose as instructed per system. If blood glucose remains LESS THAN 70 mg/dL after 2 intravenous boluses start dextrose 10% at 100 mL/hour and notify provider.
Group 3: ondansetron (ZOFRAN-ODT) disintegrating tablet 4 mgJump to med 4 mg, Oral, EVERY 8 HOURS PRN, Starting on Thu11/18/22 at 2306, Until Discontinued, Nausea, Vomiting Or ondansetron (ZOFRAN) injection 4 mgJump to med 4 mg, IntraVENous, EVERY 6 HOURS PRN, Starting on Thu11/18/22 at 2306, Until Discontinued, Nausea, Vomiting
Administer if oral route cannot be used.
Scheduled Medication Order 11/27/2022 11/28/2022 11/29/2022 magnesium sulfate 4000 mg in 100 mL IVPB premix (COMPLETED) 4,000 mg, IntraVENous, at 25 mL/hr, Administer over 4 Hours, ONCE, On 11/29/22 at 1300, For 1 dose, Recommended infusion rate not to exceed 1,000 mg (milligrams) per hour. 1256 (New Bag - Prov ider: Ana Mckeon RN)1711 (Stopped - Provider: Julee Pal RN) Scheduled Medication Order 01/14/2023 01/15/2023 01/16/2023 allopurinol (ZYLOPRIM) tablet 150 mg 150 mg, Oral, DAILY, First dose on 01/11/23 at 0900, Until Discontinued 931 (Given - Provider: Josh Blandon) 0943 (Given - Provider: Milad Mitchell RN) 0843 (Given - Provider: Brigitte Vargas, EMELY) atenolol (TENORMIN) tablet 50 mg 50 mg, Oral, DAILY, First dose on 01/11/23 at 0900, Until Discontinued 931 (Given - Provider: Josh Blandon) 0943 (Given - Provider: Milad Mitchell RN) 0842 (Given - Provider: Brigitte Vargas, EMELY) atorvastatin (LIPITOR) tablet 80 mg 80 mg, Oral, NIGHTLY, First dose on 01/11/23 at 0045, Until Discontinued 2038 (Given - Provider: Ori Goyal RN) 2121 (Given - Provider: Joan Castle RN) 2100 (Due) budesonide-formoterol (SYMBICORT) 160-4.5 MCG/ACT inhaler 2 puff 2 puff, Inhalation, 2 TIMES DAILY, First dose on 01/11/23 at 0045, Until Discontinued, Substituted for Fluticasone-vilanterol (BREO ELLIPTA). 0851 (Given - Provider: Norma Griffith RCP)2046 (Given - Provider: Miriam Wills RCP) 08 (Not Given - Provider: Milad Mitchell RN - Reason: Other - Comment: RT)2208 (Not Given - Provider: Camacho Shelby RCP - Reason: Patient/family refused - Comment: patient wishing to sleep) 07 (Given - Provider: Nena Nelson RCP)1999 (Due) cephALEXin (KEFLEX) capsule 500 mg 500 mg, Oral, EVERY 6 HOURS SCHEDULED (4 times per day), 28 doses, First dose on Thu01/13/23 at 1215, Last dose on Thu01/20/23 at 0600, Antimicrobial Indications: Urinary Tract Infection, UTI duration of therapy: 7 days 0556 (Given - Provider: Elis Loomis RN)1137 (Given - Provider: Josh Blandon)1756 (Given - Provider: Milad Mitchell RN)2332 (Given - Provider: Ori Goyal RN) 0605 (Given - Provider: Ori Goyal RN)1229 (Given - Provider: Milad Mitchell RN)1651 (Given - Provider: Milad Mitchell RN) 0012 (Given - Provider: Joan Castle RN)0618 (Given - Provider: Joan Castle RN)1200 (Due)1800 (Due) divalproex (DEPAKOTE ER) extended release tablet 750 mg 750 mg, Oral, Nightly, First dose on 01/11/23 at 0045, Until Discontinued, Do not crush or break. 2038 (Given - Provider: Ori Goyal RN) 2120 (Given - Provider: Joan Castle RN) 2100 (Due) ferrous sulfate (FE TABS 325) EC tablet 325 mg 325 mg, Oral, EVERY 48 HOURS, First dose on 01/11/23 at 0045, Until Discontinued 2331 (Given - Provider: Ori Goyal RN) FLUoxetine (PROZAC) capsule 40 mg 40 mg, Oral, DAILY, First dose on 01/11/23 at 0900, Until Discontinued 931 (Given - Provider: Josh Blandon) 09 (Given - Provider: Milad Mitchell RN) 0842 (Given - Provider: Brgiitte Vargas RN) furosemide (LASIX) tablet 20 mg (CANCELED) 20 mg, Oral, DAILY, First dose on 01/11/23 at 0900, Until Discontinued 931 (Given - Provider: Josh Blandon) 0944 (Not Given - Provider: Milad Mitchell RN - Reason: Contraindicated) gabapentin (NEURONTIN) capsule 100 mg 100 mg, Oral, 2 TIMES DAILY, First dose on 01/11/23 at 0045, Until Discontinued 931 (Given - Provider: Josh Blandon)2038 (Given - Provider: Ori Goyal RN) 09 (Given - Provider: Milad Mitchell RN)2120 (Given - Provider: Joan Castle RN) 0842 (Given - Provider: Brigitte Vargas RN)2100 (Due) heparin (porcine) injection 5,000 Units 5,000 Units, SubCUTAneous, EVERY 8 HOURS SCHEDULED (3 times per day), First dose on 01/11/23 at 0045, Until Discontinued 0556 (Given - Provider: Elis Loomis RN)1403 (Given - Provider: Milad Mitchell RN)2037 (Given - Provider: Ori Goyal RN) 06 (Given - Provider: Ori Goyal, EMELY)1423 (Given - Provider: Milad Mitchell RN)2120 (Given - Provider: Joan Castle RN) 0619 (Given - Provider: Joan Castle RN)1400 (Due)2200 (Due) insulin glargine (LANTUS) injection vial 20 Units 20 Units, SubCUTAneous, 2 TIMES DAILY, First dose on 01/11/23 at 0045, Until Discontinued 09 (Not Given - Provider: Milad Mitchell RN - Reason: Contraindicated)2037 (Given - Provider: Ori Goyal RN) 0944 (Given - Provider: Milad Mitchell RN)2128 (Not Given - Provider: Joan Castle RN - Reason: Contraindicated) 0845 (Given - Provider: Brigitte Vargas, EMELY)2099 (Due) insulin lispro (HUMALOG) injection vial 0-4 Units 0-4 Units, SubCUTAneous, NIGHTLY, First dose on Thu01/12/23 at 2100, Until Discontinued, If continuous tube feedings/TPN/NPO, give correction dose based on result, no reduction in dose. If eating or bolus tube feeding: Corrective Bedtime Algorithm Glucose: Dose: 70-299 No Insulin 300-349 4 Units Over 349 4 Units and notify physician 1920 (Not Given - Provider: Ori Goyal RN - Reason: Order parameters not met - Comment: BS 198.) 2128 (Not Given - Provider: Joan Castle RN - Reason: Contraindicated) 2099 (Due) insulin lispro (HUMALOG) injection vial 0-8 Units 0-8 Units, SubCUTAneous, 3 TIMES DAILY WITH MEALS, First dose on Thu01/12/23 at 1700, Until Discontinued, Medium Dose Corrective Algorithm Glucose: Dose: 70-199 No Insulin 200-249 2 Units 250-299 4 Units 300-349 6 Units Over 349 8 Units and notify physician 0926 (Not Given - Provider: Josh Blandon - Reason: Contraindicated)1220 (Not Given - Provider: Milad Mitchell RN - Reason: Contraindicated)1638 (Not Given - Provider: Milad Mitchell RN - Reason: Contraindicated) 0737 (Not Given - Provider: Milad Mitchell RN - Reason: Contraindicated)1229 (Given - Provider: Milad Mitchell RN)1657 (Not Given - Provider: Milad Mitchell RN - Reason: Contraindicated) 0706 (Not Given - Provider: Brigitte Vargas RN - Reason: Order parameters not met)1200 (Due)1700 (Due) lactulose (CHRONULAC) 10 GM/15ML solution 30 g 30 g, Oral, 2 TIMES DAILY, First dose on 01/11/23 at 0045, Until Discontinued 33 (Given - Provider: Josh Blandon)2037 (Given - Provider: Ori Goyal, EMELY) 0944 (Given - Provider: Milad Mitchell, EMELY)2120 (Given - Provider: Joan Castle RN) 0842 (Given - Provider: Brigitte Vargas, EMELY)2100 (Due) methocarbamol (ROBAXIN) tablet 750 mg 750 mg, Oral, 3 TIMES DAILY, First dose on Delfina 01/15/23 at 1415, Until Discontinued 1423 (Given - Provider: Milad Mitchell RN)2120 (Given - Provider: Joan Castle RN) 0846 (Given - Provider: Brigitte Vargas RN)1400 (Due)2100 (Due) pantoprazole (PROTONIX) tablet 40 mg 40 mg, Oral, DAILY BEFORE BREAKFAST, First dose on 01/11/23 at 0700, Until Discontinued, Do not crush or break. Substituted for Omeprazole (PRILOSEC). 0556 (Given - Provider: Elis Loomis RN) 0605 (Given - Provider: Ori Goyal RN) 0619 (Given - Provider: Joan Castle RN) sodium chloride flush 0.9 % injection 5-40 mL 5-40 mL, IntraVENous, EVERY 12 HOURS SCHEDULED (2 times per day), First dose on 01/11/23 at 0900, Until Discontinued, For Line Patency: Peripheral IV = 5 mL; Midline or Central Line = 10 mL/lumen. If following IV push medication, administer flush at same rate as the IV push. Flush volume is determined by type of infusion therapy being given. For non-viscous solutions use: Peripheral IV = 5 mL Midline or Central Line = 10 mL/lumen For viscous solutions (i.e. blood components, parenteral nutrition, contrast media, or after obtaining blood sample) use: Peripheral IV = 10 mL Midline or Central Line = 20 mL/lumen 0941 (Not Given - Provider: Josh Blandon - Reason: IV Fluid Infusing)2037 (Given - Provider: Ori Goyal RN) 0738 (Not Given - Provider: Milad Mitchell RN - Reason: Contraindicated)2121 (Given - Provider: Joan Castle RN) 0842 (Given - Provider: Brigitte Vargas, EMELY)2100 (Due) spironolactone (ALDACTONE) tablet 25 mg 25 mg, Oral, DAILY, First dose on 01/11/23 at 0900, Until Discontinued 931 (Given - Provider: Josh Blandon) 0943 (Given - Provider: Milad Mitchell, EMELY) 0842 (Given - Provider: Brigitte Vargas, EMELY) traZODone (DESYREL) tablet 50 mg 50 mg, Oral, NIGHTLY, First dose on Delfina 01/15/23 at 2100, Until Discontinued 2120 (Given - Provider: Joan Castle RN) 2099 (Due) trospium (SANCTURA) tablet 20 mg 20 mg, Oral, 2 TIMES DAILY BEFORE MEALS, First dose on 01/11/23 at 0700, Until Discontinued 0556 (Given - Provider: Elis Loomis RN)1756 (Given - Provider: Milad Mitchell RN) 0605 (Given - Provider: Ori Goyal RN)1651 (Given - Provider: Milad Mitchell RN) 0619 (Given - Provider: Joan Castle RN)1600 (Due) Continuous Medication Order 01/14/2023 01/15/2023 01/16/2023 0.9 % sodium chloride infusion (CANCELED) IntraVENous, at 125 mL/hr, CONTINUOUS, Starting on 01/11/23 at 0045 0818 (Rate/Dose Verify - Provider: Ori Goyal RN)1133 (Stopped - Provider: Ori Goyal RN) PRN Medication Order 01/14/2023 01/15/2023 01/16/2023 0.9 % sodium chloride infusion IntraVENous, at 5-250 mL/hr, PRN, if patient receiving piggyback infusions and maintenance fluids are not ordered OR KVO fluids to protect IV site / prevent frequent line interruptions/ long duration, Starting on 01/11/23 at 0018, For piggyback infusion, administer at same rate as piggyback for a total of 25 mL. Enter 25 mL into dose field and piggyback rate into rate field of order. If piggyback is infusing at a rate less than 100 mL/hr, enter 25 mL into dose field and 100 mL/hr into rate field of order. For KVO fluids, enter rate of 20 mL/hr or less into rate field of order. acetaminophen (TYLENOL) suppository 650 mg(Linked Group 1) 650 mg, Rectal, EVERY 6 HOURS PRN, Starting on 01/11/23 at 0018, Until Discontinued, Pain Mild (1-3), Fever, For temp greater than 100.4 F (38 C), Administer if oral route cannot be used. 1452 (See Alternative - Provider: Milad Mitchell RN)2152 (See Alternative - Provider: Ori Goyal, RN) 0742 (See Alternative - Provider: Milad Mitchell, EMELY) acetaminophen (TYLENOL) tablet 650 mg(Linked Group 1) 650 mg, Oral, EVERY 6 HOURS PRN, Starting on 01/11/23 at 0018, Until Discontinued, Pain Mild (1-3), Fever, For temp greater than 100.4 F (38 C), Maximum dose of acetaminophen is 4000 mg from all sources in 24 hours. 1452 (Given - Provider: Milad Mitchell RN)2152 (Given - Provider: Ori Goyal, EMELY) 0742 (Given - Provider: Milad Mitchell, EMELY) dextrose 10 % infusion IntraVENous, at 100 mL/hr, CONTINUOUS PRN, if blood glucose remains LESS THAN 70 mg/dL after 2 dextrose 10% intravenous boluses or administration of glucagon, Starting on Thu01/11/23 at 0023, If blood glucose fails to stabilize after 2 dextrose 10% intravenous boluses or glucagon administration, start dextrose 10% infusion at 100 mL/hour and repeat blood glucose at 30 and 60 minutes. If blood glucose is GREATER THAN 70 mg/dL after 60 minutes, discontinue dextrose 10% infusion. dextrose bolus 10% 125 mL(Linked Group 2) 125 mL, IntraVENous, at 937.5 mL/hr, Administer over 8 Minutes, PRN, Other, Blood glucose 40 - 69 mg/dL and patient NOT ALERT or NPO, Starting on 01/11/23 at 0023, Repeat blood glucose in 15 minutes. If blood glucose remains LESS THAN 70 mg/dL, repeat treatment and recheck blood glucose in 15 minutes x 2. If using glycemic management system, dose as instructed per system. If blood glucose remains LESS THAN 70 mg/dL after 2 intravenous boluses start dextrose 10% at 100 mL/hour and notify provider. dextrose bolus 10% 250 mL(Linked Group 2) 250 mL, IntraVENous, at 937.5 mL/hr, Administer over 16 Minutes, PRN, Other, Blood glucose LESS THAN 40 mg/dL and patient NOT ALERT or NPO, Starting on 01/11/23 at 0023, Repeat blood glucose in 15 minutes. If blood glucose remains LESS THAN 70 mg/dL, repeat treatment and recheck blood glucose in 15 minutes x 2. If using glycemic management system, dose as instructed per system. If blood glucose remains LESS THAN 70 mg/dL after 2 intravenous boluses start dextrose 10% at 100 mL/hour and notify provider. glucagon (rDNA) injection 1 mg 1 mg, SubCUTAneous, PRN, Starting on 01/11/23 at 0023, Until Discontinued, Low blood sugar, Blood glucose LESS THAN 70 mg/dL and patient NOT ALERT or NPO and does not have IV access., After administration, attempt intravenous access and start dextrose 10% at 100 mL/hr. Repeat blood glucose in 15 minutes x 2 and notify provider. glucose chewable tablet 16 g 16 g (4 tablet), Oral, PRN, Starting on 01/11/23 at 0023, Until Discontinued, Low blood sugar, If blood glucose is LESS THAN 70 mg/dL and patient is alert and tolerating oral. Give 4 tablets (16g) Repeat blood glucose in 15 minutes. If blood glucose is LESS THAN 70 mg/dL, repeat treatment and recheck blood glucose in 15 minutes x 2. If blood glucose remains LESS THAN 70 mg/dL, notify provider. HYDROcodone-acetaminophen (NORCO) 5-325 MG per tablet 1 tablet 1 tablet, Oral, EVERY 6 HOURS PRN, Starting on Delfina 01/15/23 at 1354, Until Discontinued, Pain Moderate (4-6), Maximum dose of acetaminophen is 4000 mg from all sources in 24 hours. 1651 (Given - Provider: Milad Mitchell RN) LORazepam (ATIVAN) tablet 1 mg 1 mg, Oral, EVERY 4 HOURS PRN, Starting on 01/11/23 at 0128, Until Discontinued, Anxiety 2332 (Given - Provider: Ori Goyal RN) ondansetron (ZOFRAN) injection 4 mg(Linked Group 3) 4 mg, IntraVENous, EVERY 6 HOURS PRN, Starting on 01/11/23 at 0018, Until Discontinued, Nausea, Vomiting, Administer if oral route cannot be used. ondansetron (ZOFRAN-ODT) disintegrating tablet 4 mg(Linked Group 3) 4 mg, Oral, EVERY 8 HOURS PRN, Starting on 01/11/23 at 0018, Until Discontinued, Nausea, Vomiting polyethylene glycol (GLYCOLAX) packet 17 g 17 g, Oral, DAILY PRN, Starting on 01/11/23 at 0018, Until Discontinued, Constipation, First line therapy for constipation sodium chloride flush 0.9 % injection 5-40 mL 5-40 mL, IntraVENous, PRN, Starting on 01/11/23 at 0018, Until Discontinued, Line Care, After every IV line use, For Line Patency: Peripheral IV = 5 mL; Midline or Central Line = 10 mL/lumen. If following IV push medication, administer flush at same rate as the IV push. Flush volume is determined by type of infusion therapy being given. For non-viscous solutions use: Peripheral IV = 5 mL Midline or Central Line = 10 mL/lumen For viscous solutions (i.e. blood components, parenteral nutrition, contrast media, or after obtaining blood sample) use: Peripheral IV = 10 mL Midline or Central Line = 20 mL/lumen Linked Groups Order Group 1: acetaminophen (TYLENOL) tablet 650 mgJump to med 650 mg, Oral, EVERY 6 HOURS PRN, Starting on Thu01/11/23 at 0018, Until Discontinued, Pain Mild (1-3), Fever, For temp greater than 100.4 F (38 C)
Maximum dose of acetaminophen is 4000 mg from all sources in 24 hours.
Or acetaminophen (TYLENOL) suppository 650 mgJump to med 650 mg, Rectal, EVERY 6 HOURS PRN, Starting on 01/11/23 at 0018, Until Discontinued, Pain Mild (1-3), Fever, For temp greater than 100.4 F (38 C)
Administer if oral route cannot be used.
Group 2: dextrose bolus 10% 125 mLJump to med 125 mL, IntraVENous, at 937.5 mL/hr, Administer over 8 Minutes, PRN, Other, Blood glucose 40 - 69 mg/dL and patient NOT ALERT or NPO, Starting on 01/11/23 at 0023
Repeat blood glucose in 15 minutes. If blood glucose remains LESS THAN 70 mg/dL, repeat treatment and recheck blood glucose in 15 minutes x 2. If using glycemic management system, dose as instructed per system. If blood glucose remains LESS THAN 70 mg/dL after 2 intravenous boluses start dextrose 10% at 100 mL/hour and notify provider.
Or dextrose bolus 10% 250 mLJump to med 250 mL, IntraVENous, at 937.5 mL/hr, Administer over 16 Minutes, PRN, Other, Blood glucose LESS THAN 40 mg/dL and patient NOT ALERT or NPO, Starting on 01/11/23 at 0023
Repeat blood glucose in 15 minutes. If blood glucose remains LESS THAN 70 mg/dL, repeat treatment and recheck blood glucose in 15 minutes x 2. If using glycemic management system, dose as instructed per system. If blood glucose remains LESS THAN 70 mg/dL after 2 intravenous boluses start dextrose 10% at 100 mL/hour and notify provider.
Group 3: ondansetron (ZOFRAN-ODT) disintegrating tablet 4 mgJump to med 4 mg, Oral, EVERY 8 HOURS PRN, Starting on 01/11/23 at 0018, Until Discontinued, Nausea, Vomiting Or ondansetron (ZOFRAN) injection 4 mgJump to med 4 mg, IntraVENous, EVERY 6 HOURS PRN, Starting on 01/11/23 at 0018, Until Discontinued, Nausea, Vomiting
Administer if oral route cannot be used.
Care Teams (unrecognized sec tion and content) Packing Line Operator Relationship Specialty Start Date End Date Justnya Valderrama APRN - NEWSPAPER COPY EDITOR [address] [place] [address] PCP - General Certified Nurse Practitioner 04/19/21 Packing Line Operator Relationship Specialty Start Date End Date Justyna Valderrama APRN - CNP [address] [place] [address] PCP - General Certified Nurse Practitioner 04/19/21 Packing Line Operator Relationship Specialty Start Date End Date Jannie, Justyna Bashir COMMERCIAL HVAC SERVICE TECHNICIAN - NEWSPAPER COPY EDITOR [address] [place] [facility] [place] [address] PCP - General Certified Nurse Practitioner 04/19/21 Packing Line Operator Relationship Specialty Start Date End Date Jannie Justyna Bashir COMMERCIAL HVAC SERVICE TECHNICIAN - NEWSPAPER COPY EDITOR [address] [place] [facility] [place] [address] PCP - General Certified Nurse Practitioner 04/19/21 Packing Line Operator Relationship Specialty Start Date End Date Jannie, Justyna Bashir COMMERCIAL HVAC SERVICE TECHNICIAN - NEWSPAPER COPY EDITOR [address] [place] [facility] [place] [address] PCP - General Certified Nurse Practitioner 04/19/21 Packing Line Operator Relationship Specialty Start Date End Date Jannie, Justyna Bashir COMMERCIAL HVAC SERVICE TECHNICIAN - NEWSPAPER [employer] EDITOR [address] [place] [facility] [address] PCP - General Certified Nurse Practitioner 04/19/21 Packing Line Operator Relationship Specialty Start Date End Date Jannie, Justyna Bashir COMMERCIAL HVAC SERVICE TECHNICIAN - NEWSPAPER [employer] EDITOR [address] [place] [facility] [address] PCP - General Certified Nurse Practitioner 04/19/21 Packing Line Operator Relationship Specialty Start Date End Date Jannie, Justyna Bashir COMMERCIAL HVAC SERVICE TECHNICIAN - NEWSPAPER [employer] EDITOR [address] [place] [facility] [place] [address] PCP - General Certified Nurse Practitioner 04/19/21 Packing Line Operator Relationship Specialty Start Date End Date Jannie, Justyna Bashir COMMERCIAL HVAC SERVICE TECHNICIAN - NEWSPAPER [employer] EDITOR [address] [place] [facility] [place] [address] PCP - General Certified Nurse Practitioner 04/19/21 Packing Line Operator Relationship Specialty Start Date End Date Jannie, Justyna Bashir COMMERCIAL HVAC SERVICE TECHNICIAN - NEWSPAPER [employer] EDITOR [address] [place] [facility] [place] [address] PCP - General Certified Nurse Practitioner 04/19/21 Packing Line Operator Relationship Specialty Start Date End Date Jannie, Justyna Bashir COMMERCIAL HVAC SERVICE TECHNICIAN - NEWSPAPER COPY EDITOR [address] [place] [facility] [address] PCP - General Certified Nurse Practitioner 04/19/21 Packing Line Operator Relationship Specialty Start Date End Date Justyna Valderrama COMMERCIAL HVAC SERVICE TECHNICIAN - NEWSPAPER COPY EDITOR [address] [place] [facility] [address] PCP - General Certified Nurse Practitioner 04/19/21 Packing Line Operator Relationship Specialty Start Date End Date Justyna Valderrama COMMERCIAL HVAC SERVICE TECHNICIAN - NEWSPAPER COPY EDITOR [address] [place] [facility] [address] PCP - General Certified Nurse Practitioner 04/19/21 Packing Line Operator Relationship Specialty Start Date End Date Justyna Valderrama COMMERCIAL HVAC SERVICE TECHNICIAN - NEWSPAPER COPY EDITOR [address] [place] [facility] [place] [address] PCP - General Certified Nurse Practitioner 04/19/21 Packing Line Operator Relationship Specialty Start Date End Date Justyna Valderrama APRN - NEWSPAPER [employer]Y EDITOR [address] [place] [facility] [address] PCP - General Certified Nurse Practitioner 04/19/21 Packing Line Operator Relationship Specialty Start Date End Date Justyna Valderrama APRN - NEWSPAPER COPY EDITOR [address] [place] [facility] [address] PCP - General Certified Nurse Practitioner 04/19/21 Packing Line Operator Relationship Specialty Start Date End Date Justyna Valderrama APRN - NEWSPAPER COPY EDITOR [address] [place] [facility] [address] PCP - General Certified Nurse Practitioner 04/19/21 Packing Line Operator Relationship Specialty Start Date End Date Justyna Valderrama COMMERCIAL HVAC SERVICE TECHNICIAN - NEWSPAPER [employer] EDITOR [address] [place] [facility] [address] PCP - General Certified Nurse Practitioner 04/19/21 Packing Line Operator Relationship Specialty Start Date End Date Justyna Valderrama COMMERCIAL HVAC SERVICE TECHNICIAN - NEWSPAPER COPY EDITOR [address] [place] [facility] [address] PCP - General Certified Nurse Practitioner 04/19/21 Packing Line Operator Relationship Specialty Start Date End Date Jannie Justyna Bashir COMMERCIAL HVAC SERVICE TECHNICIAN - NEWSPAPER COPY EDITOR [address] [place] [facility] [address] PCP - General Certified Nurse Practitioner 04/19/21 Packing Line Operator Relationship Specialty Start Date End Date Jannie Justyna Bashir COMMERCIAL HVAC SERVICE TECHNICIAN - NEWSPAPER COPY EDITOR [address] [place] [facility] [address] PCP - General Certified Nurse Practitioner 04/19/21 Packing Line Operator Relationship Specialty Start Date End Date Jannie Justyna Bashir COMMERCIAL HVAC SERVICE TECHNICIAN - NEWSPAPER COPY EDITOR [address] [place] [facility] [address] PCP - General Certified Nurse Practitioner 04/19/21 Packing Line Operator Relationship Specialty Start Date End Date Jannie Justyna Bashir COMMERCIAL HVAC SERVICE TECHNICIAN - NEWSPAPER COPY EDITOR [address] [place] [facility] [address] PCP - General Certified Nurse Practitioner 04/19/21 Packing Line Operator Relationship Specialty Start Date End Date Jannie Justyna Bashir COMMERCIAL HVAC SERVICE TECHNICIAN - NEWSPAPER COPY EDITOR [address] [place] [facility] [address] PCP - General Certified Nurse Practitioner 04/19/21 Packing Line Operator Relationship Specialty Start Date End Date Jannie, Justyna Bashir COMMERCIAL HVAC SERVICE TECHNICIAN - NEWSPAPER COPY EDITOR [address] [place] [facility] [place] [address] PCP - General Certified Nurse Practitioner 04/19/21 Packing Line Operator Relationship Specialty Start Date End Date Jannie, Justyna Bashir COMMERCIAL HVAC SERVICE TECHNICIAN - NEWSPAPER COPY EDITOR [address] [place] [facility] [address] PCP - General Certified Nurse Practitioner 04/19/21 Packing Line Operator Relationship Specialty Start Date End Date Jannie Justyna Bashir COMMERCIAL HVAC SERVICE TECHNICIAN - NEWSPAPER COPY EDITOR [address] [place] [facility] [address] PCP - General Certified Nurse Practitioner 04/19/21 Packing Line Operator Relationship Specialty Start Date End Date Jannie, Justyna Bashir COMMERCIAL HVAC SERVICE TECHNICIAN - NEWSPAPER COPY EDITOR [address] [place] [address] PCP - General Certified Nurse Practitioner 04/19/21 Packing Line Operator Relationship Specialty Start Date End Date Justyna Valderrama APRN - CNP [address] [place] [address] PCP - General Certified Nurse Practitioner 04/19/21 Packing Line Operator Relationship Specialty Start Date End Date Justyna Valderrama APRN - CNP [address] [place] [address] PCP - General Certified Nurse Practitioner 04/19/21 Packing Line Operator Relationship Specialty Start Date End Date Justyna Valderrama APRN - CNP [address] [place] [address] PCP - General Certified Nurse Practitioner 04/19/21 Packing Line Operator Relationship Specialty Start Date End Date Justyna Valderrama APRN - CNP [address] [place] [address] PCP - General Certified Nurse Practitioner 04/19/21 Packing Line Operator Relationship Specialty Start Date End Date Justyna Valderrama APRN - CNP [address] [place] [address] PCP - General Certified Nurse Practitioner 04/19/21 INFORMATION SOURCE (unrecogn ized section and content) DATE CREATED AUTHOR 12/25/2021 [facility] DATE CREATED AUTHOR AUTHOR'S ORGANIZ ATION 11/04/2023 [facility] DATE CREATED AUTHOR AUTHOR'S ORGANIZ ATION 11/06/2023 [facility] DATE CREATED AUTHOR AUTHOR'S ORGANIZ ATION 11/25/[address] [facility] DATE CREATED AUTHOR AUTHOR'S ORGANIZ ATION 01/08/2024 [facility] pital FOR RECORDS PERTAINING TO PATIENTS WHO ARE OR HAVE BEEN ENROLLED IN A CHEMICAL DEPENDENCY/SUBSTANCEABUSE PROGRAM, SOME INFORMATION MAY BE OMITTED. This clinical summary was aggregated from multiple sources. Caution should be exercised in using it in the provision of clinical care. This summary normalizes information from multiple sources, and as a consequence, information in this document may materially change the coding, format and clinical context of patient data. In addition, data may be omitted in some cases. CLINICAL DECISIONS SHOULD BE BASED ON THE PRIMARY CLINICAL RECORDS. [facility]. provides no warranty or guarantee of the accuracy or completeness of information in this document.
[2024-01-15 08:01] LABS: Uric Acid 4.5 mg/dL (2.6-6.0)
== END 2024-01-15 01:56 | disposition home or self-care (01) ==
LOC: LAB 01:55
PROVIDERS: Visit Provider Family Medicine
DX: M25.473 Effusion, unspecified ankle (principal)
CPT/HCPCS: 36415; 84550

== ENCOUNTER 2024-03-09 08:37 | Outpatient (REF) | payer OTHER, SELFPAY ==
[2024-03-09 09:11] LABS: Basophils Percent Auto 0.5 % (0.2-2.0); Eosinophils Absolute Auto 0.1 10^3/uL (0.0-0.7); Eosinophils Percent Auto 1.6 % (0.9-7.0); Hematocrit 26.9 % (36.0-48.0); Hemoglobin 7.5 g/dL (12.0-16.0); Immature Granulocytes Abs Auto 0.02 10^3/uL (0.00-0.03); Immature Granulocytes Pct Auto 0.5 % (0.0-0.5); Lymphocytes Absolute Auto 1.1 10^3/uL (1.2-3.8); Lymphocytes Percent Auto 28.5 % (20.5-60.0); Mean Corpuscular HGB Conc 27.9 g/dL (29.9-35.2); Mean Corpuscular Hemoglobin 23.7 pg (26.7-34.0); Mean Corpuscular Volume 85.1 fL (81.0-99.0); Mean Platelet Volume 9.1 fL (9.5-13.5); Monocytes Absolute Auto 0.2 10^3/uL (0.3-0.8); Monocytes Percent Auto 6.5 % (1.7-12.0); Neutrophils Absolute Auto 2.3 10^3/uL (1.4-6.5); Neutrophils Percent Auto 62.4 % (43.0-75.0); Platelet Count 141 10^3/uL (150-450); Red Blood Count 3.16 10^6/uL (4.20-5.40); Red Cell Distribution Width 16.2 % (11.0-15.0); White Blood Count 3.7 10^3/uL (4.0-11.0)
[2024-03-09 10:06] LABS: Anion Gap 11.4; Calcium 9.1 mg/dL (8.5-10.1); Carbon Dioxide 28.2 mmol/L (21.0-32.0); Chloride 101 mmol/L (98-107); Estimated GFR (African America 54 (>=60); Estimated GFR (Non-African Ame 45 (>=60); Glucose 119 mg/dL (74-106); Potassium 4.6 mmol/L (3.5-5.1); Sodium 136 mmol/L (136-145)
== END 2024-03-09 08:38 | disposition home or self-care (01) ==
LOC: LAB 08:37
PROVIDERS: Visit Provider Family Medicine
DX: N18.9 Chronic kidney disease, unspecified (principal)
CPT/HCPCS: 36415; 80048; 85025